=== PATIENT | female | born 1940 | race Caucasian/White ===

== ENCOUNTER 2020-02-05 07:17 | Outpatient (REF) | payer MEDICARE, OTHER, SELFPAY ==
[2020-02-05 08:04] LABS: MANUAL DIFF FLAG NO
[2020-02-05 08:07] LABS: Basophils Percent Auto 0.5 % (0-2); Eosinophils Absolute Auto 0.1 X10*3/uL (0.0-0.4); Eosinophils Percent Auto 1.9 % (0-4); Hematocrit 45.6 % (37-47); Hemoglobin 15.1 g/dl (12.0-16.0); Imm Gran Abs Auto 0.02 X10*3/uL (0.00-0.03); Imm Gran Pct Auto 0.5 % (0.0-0.4); Lymphocytes Absolute Auto 0.9 X10*3/uL (1.2-4.9); Lymphocytes Percent Auto 23.4 % (20-40); Mean Corpuscular HGB Conc 33.1 g/dl (31.0-35.0); Mean Corpuscular Hemoglobin 31.3 pg (27.0-33.0); Mean Corpuscular Volume 94.6 fL (80-98); Mean Platelet Volume 10.6 fL (9.4-12.3); Monocytes Absolute Auto 0.4 X10*3/uL (0.1-1.2); Monocytes Percent Auto 9.4 % (2-11); Neutrophils Absolute Auto 2.4 X10*3/uL (2.0-8.3); Neutrophils Percent Auto 64.3 % (45-73); Platelet Count 187 X10*3/uL (160-400); Red Blood Count 4.82 X10*6/uL (4.20-5.50); Red Cell Distribution Width 12.8 % (11.0-16.0); White Blood Count 3.7 X10*3/uL (4.8-10.8)
[2020-02-05 08:18] LABS: Appearance Urine CLEAR; Color Urine YELLOW; Glucose Urine UA NEG (NEG); Specific Gravity - Urine 1.025 (1.005-1.025); Urine Blood NEG (NEG); Urine Protein 1+ MG/DL (NEG-TRACE)
[2020-02-05 08:19] LABS: Nitrite Urine NEG (NEG); Urine Ketones NEG (NEG)
[2020-02-05 08:20] LABS: Leukocyte Esterase Urine TRACE (NEG)
[2020-02-05 08:47] LABS: Alanine Aminotransferase 19 U/L (0-31); Albumin Level 4.3 g/dL (3.5-5.0); Alkaline Phosphatase 66 U/L (39-117); Anion Gap 12 (12-20); Aspartate Amino Transferase 21 U/L (5-31); Bilirubin Total 0.8 mg/dL (0.0-1.0); Blood Urea Nitrogen 19 mg/dL (9-16); Calcium 9.4 mg/dL (8.4-10.2); Carbon Dioxide 28 mmol/L (22-29); Chloride 105 mmol/L (96-108); Cholesterol 243 mg/dL; Estimated Glomerular Filt Rate > 60; Glucose Fasting 100 mg/dL (60-99); HDL Cholesterol 73 mg/dL; LDL Cholesterol Calculated 157 mg/dl; Potassium 4.5 mmol/l (3.3-5.1); Sodium 140 mmol/L (135-145); Total Protein 6.4 g/dL (6.5-8.0); Triglycerides 69 mg/dL
[2020-02-05 09:04] LABS: RBC Urine 0 /HPF (0)
[2020-02-05 09:11] LABS: Thyroid Stimulating Hormone 0.71 mIU/mL (0.32-4.0)
== END 2020-02-05 07:18 | disposition home or self-care (01) ==
LOC: HO.LAB 07:17
PROVIDERS: PCP Internal Medicine; Visit Provider Internal Medicine
DX: D70.9 Neutropenia, unspecified (principal); E04.1 Nontoxic single thyroid nodule; I10 Essential (primary) hypertension; E78.00 Pure hypercholesterolemia, unspecified; I65.23 Occlusion and stenosis of bilateral carotid arteries
CPT/HCPCS: 36415; 80053; 80061; 81001; 81003; 84443; 85025

== ENCOUNTER 2020-04-11 09:08 | Outpatient (REF) | payer MEDICARE, OTHER, SELFPAY ==
--- NOTE | 2020-04-11 09:13 | MM_ITS ---
EXAMINATION: MM SCREENING DIGITAL MAMMOGRAPHY, BILATERAL CLINICAL INFORMATION: Screening. Asymptomatic. The lifetime risk of breast cancer based on the Tyrer-Cuzick Model is 1.5%. COMPARISON: Mammography: April 28, 2019 and studies dating back to May 04, 2014 TECHNIQUE: Digital mammography is performed in craniocaudal and mediolateral oblique views along with computer-aided detection (CAD). FINDINGS: The breasts are heterogeneously dense, which may obscure small masses (ACR BI-RADS breast composition Category c). Within the lateral aspect of the right breast there is an increasing grouping of calcifications for which magnification views are recommended. The previously noted cyst within the upper outer aspect of the left breast is slightly larger. There appears be increasing grouping of calcifications about the lateral aspect of the left breast for which magnification films are recommended. MM/MM screening mammo BI IMPRESSION: Bilateral groupings of calcifications for further evaluation with spot magnification views. ASSESSMENT: BI-RADS 0: Incomplete - Need Additional Imaging Evaluation RECOMMENDATION: 1. Additional views of the bilateral breasts. 2.Radiology department staff will contact the patient for additional imaging.
--- NOTE | 2020-04-11 09:14 | MM_ITS ---
EXAMINATION: BONE DENSITOMETRY CLINICAL INDICATION: Menopausal. COMPARISON: Baseline BD dated 03/22/2018. TECHNIQUE: Using a [employer] DXA System (software version: 13.1) manufactured by [email or web address], dual-energy x-ray absorptiometry was performed of the lumbar spine and left hip. The images are of good technical quality. Summary results are attached. FINDINGS: AP SPINE L1-L4: Current: BMD 1.250 g/cm2, Z-score 2.3, T-score 0.6, normal, 5.4% increase from baseline (<5% change is not significant). Baseline: BMD 1.186 g/cm2. LEFT FEMUR, NECK: Current: BMD 0.750 g/cm2, Z-score 0.0, T-score -2.1, osteopenia. Baseline: BMD 0.779 g/cm2. LEFT FEMUR, TOTAL: Current: BMD 0.841 g/cm2, Z-score 0.6, T-score -1.3, osteopenia, 2.7% decrease from baseline (<5% change is not significant). Baseline: BMD 0.864 g/cm2. IDENTIFIED RISK FACTORS: Menopause. HISTORY OF FRACTURE: None listed. MEDICATIONS: Multivitamin. MM/XR DEXA axial skeleton IMPRESSION: 1. DIAGNOSIS: Osteopenia based on the lowest T-score value of -2.1 in the femoral neck applying World Health Organization criteria. 2. 10-YEAR FRACTURE RISK PREDICTION, FRAX: Major osteoporotic fracture (clinical spine, forearm, hip or shoulder) 16.1%. Hip fracture 5.1%. 3. Treatment Recommendations: NOF guidelines recommend consideration for treatment in postmenopausal women and men age 50 and older presenting with the following: -A hip or vertebral (clinical or morphometric) fracture. -T-score less than or equal to -2.5 at the femoral neck or spine after appropriate evaluation to exclude secondary causes. -Low bone mass at the hip or spine and a 10-year fracture probability by FRAX of greater than or equal to 3% for hip fracture or greater than or equal to 20% for major osteoporotic fracture based on the [place] adapted WHO algorithm. 4. Other Recommendations: All treatment decisions require clinical judgment and consideration of individual patient factors, including patient preferences, comorbidities, previous drug use, risk factors not captured in the FRAX model (e.g. frailty, falls, vitamin D deficiency, increased bone turnover, interval significant decline in bone density) and possible under or overestimation of fracture risk by FRAX. Additional medical evaluation for secondary cause of low bone mineral density may be appropriate. FUTURE SCAN RECOMMENDATION: People with diagnosed cases of osteoporosis or at high risk for fracture should have regular bone mineral density tests. For patients eligible for Medicare, routine testing is allowed once every 2 years. The testing frequency can be increased to one year for patients who have rapidly progressing disease, those who are receiving or discontinuing medical therapy to restore bone mass, or have additional risk factors.
== END 2020-04-11 09:09 | disposition home or self-care (01) ==
LOC: HO.MAMMO 09:08
PROVIDERS: PCP Internal Medicine; Visit Provider Internal Medicine
DX: Z12.31 Encounter for screening mammogram for malignant neoplasm of breast (principal); Z78.0 Asymptomatic menopausal state
CPT/HCPCS: 77067; 77080

== ENCOUNTER 2020-04-15 08:18 | Outpatient (REF) | payer MEDICARE, OTHER, SELFPAY ==
--- NOTE | 2020-04-15 | US_ITS ---
EXAMINATION: US THYROID CLINICAL INFORMATION: Multinodular goiter. COMPARISON: Ultrasound thyroid soft tissue dated 02/12/2017 TECHNIQUE: Linear transducer mcgowan-scale and color Doppler examination with attention to the region of the thyroid. FINDINGS: SIZE: Measurements of the thyroid lobes and nodules are given in sagittal, anteroposterior and transverse dimensions respectively. Right Thyroid Lobe: 5.2 x 2.4 x 2.0 cm, volume 12.7 mL. Previously 5.7 x 1.8 x 2.4 cm, volume 12.5 mL. Parenchyma: The gland echotexture is heterogeneous. Thyroid vascularity is normal. Left Thyroid Lobe: 5.9 x 2.4 x 1.9 cm, volume 14.0 mL. Previously 5.7 x 2.4 x 1.7 cm, volume 12.3 mL. Parenchyma: The gland echotexture is heterogeneous. Thyroid vascularity is slightly increased. Isthmus: 0.5 cm in maximum AP dimension. Previously 0.6 cm. RIGHT THYROID LOBE: There are numerous nodules visualized with the prominent 4 nodules documented. 1. Location: Upper. Size: 0.6 x 0.3 x 0.5 cm. Previous: 0.7 x 0.3 x 0.5 cm. Nodule characteristics: Heterogeneous, smoothly marginated with intranodular flow. 2. Location: Mid. Size: 0.3 x 0.2 x 0.4 cm. Previous: 0.2 x 0.1 x 0.2 cm. Nodule characteristics: Hypoechoic, smoothly marginated peripheral intranodular flow. 3. Location: Lower. Size: 1.0 x 0.8 x 0.9 cm. Previous: 1.0 x 0.6 x 0.9 cm. Nodule characteristics: Heterogenous, irregular shaped with no intranodular flow. 4. Location: Lower. Size: 0.8 x 0.4 x 0.7 cm. Previous: 0.7 x 0.4 x 0.7 cm. Nodule characteristics: Heterogeneous, irregular shaped with no intranodular flow. ISTHMUS: There is 1 nodule seen. 1. Location: Mid. Size: 1.3 x 0.6 x 1.0 cm. Previous: 1.1 x 0.5 x 0.9 cm. Nodule characteristics: Heterogeneous, smoothly marginated with intranodular flow. LEFT THYROID LOBE: There are 4 nodules seen. 1. Location: Upper. Size: 0.7 x 0.7 x 0.6 cm. Previously measured as 2 separate nodules. Nodule characteristics: Heterogenous, irregular margins with intranodular flow. 2. Location: Mid. Size: 0.5 x 0.3 x 0.5 cm. Previous: Not seen. Nodule characteristics: Heterogeneous, smoothly marginated with intranodular flow. 3. Location: Lower. Size: 0.6 x 0.4 x 0.7 cm. Previous: 1.2 x 0.6 x 1.1 cm. Nodule characteristics: Heterogenous, irregular shaped with intranodular flow. 4. Location: Lower. Size: 1.1 x 0.6 x 1.3 cm. Previous: 1.0 x 0.8 x 1.1 cm. Nodule characteristics: Heterogenous, irregular shaped with intranodular flow. NODES: No lymphadenopathy is seen in the tissue surrounding the thyroid gland. US/US thyroid IMPRESSION: Multiple bilateral several heterogenous micronodules only largest and significant nodules were mentioned. These are stable. Recommend continued annual follow-up as per FUENTES guidelines.
== END 2020-04-15 08:19 | disposition home or self-care (01) ==
LOC: HO.US 08:18
PROVIDERS: Visit Provider Pediatrics Pediatric Endocrinology
DX: E04.2 Nontoxic multinodular goiter (principal)
CPT/HCPCS: 76536

== ENCOUNTER 2020-05-02 09:16 | Outpatient (REF) | payer MEDICARE, OTHER, SELFPAY ==
--- NOTE | 2020-05-02 09:22 | MM_ITS ---
EXAMINATION: MM DIAGNOSTIC DIGITAL MAMMOGRAPHY, BILATERAL CLINICAL INFORMATION: Recall from screening for question of increased calcifications bilateral outer breasts. COMPARISON: Mammography: 04/11/2020, 04/28/2019, 04/06/2019 TECHNIQUE: Digital mammography is performed in the following views: Bilateral magnification CC, bilateral magnification ML x2. FINDINGS: There are scattered areas of fibroglandular density (ACR BI-RADS breast composition Category b). Additional views left breast shows some scattered benign coarse calcifications. No focal suspicious changes from prior standard mammography. Left breast may be reassessed again in 12 months at time of annual bilateral exam. Additional views right breast demonstrate some fine calcifications mid 8:30 o'clock position. The appearance is similar to prior diagnostic exam, likely vascular. As a precaution, right breast will be reassessed in 6 months to include magnification views. Results are discussed with the patient at time of visit. MM/MM added views BI IMPRESSION: 1. Right: Probable vascular calcifications mid 8:30 o'clock position. 2. Left: Additional views show no suspicious finding. ASSESSMENT: BI-RADS 3: Probably Benign RECOMMENDATION: Diagnostic right mammography in 6 months. This patient's information was entered into a reminder system with a target due date for their next mammogram.
== END 2020-05-02 09:17 | disposition home or self-care (01) ==
LOC: HO.MAMMO 09:16
PROVIDERS: PCP Internal Medicine; Visit Provider Internal Medicine
DX: R92.1 Mammographic calcification found on diagnostic imaging of breast (principal)
CPT/HCPCS: 77066

== ENCOUNTER 2020-07-04 08:17 | Outpatient (REF) | payer MEDICARE, OTHER, SELFPAY ==
--- NOTE | ~2020-07-04 | US_ITS ---
EXAMINATION: US RETROPERITONEAL LIMITED (RENAL ONLY) CLINICAL INFORMATION: Renal calculus. COMPARISON: None. TECHNIQUE: Routine grayscale imaging of kidneys was performed. FINDINGS: RIGHT KIDNEY: 11.0 x 4.6 x 5.0 cm (SAG x AP x TRV). The kidney is normal in size, contour, and echogenicity. Renal cortical thickness is normal. No calculi or focal parenchymal lesions. No hydronephrosis. LEFT KIDNEY: 11.6 x 3.9 x 4.7 cm (SAG x AP x TRV). The kidney is normal in size, contour, and echogenicity. Renal cortical thickness is normal. There is anechoic cyst in the midpole laterally measuring 0.7 x 1.0 x 1.2 cm. There is an echogenic stone versus calcification measuring 0.2 x 0.2 x 0.2 cm. In addition, there are multiple echogenic foci seen. US/US renal BI IMPRESSION: Unremarkable right kidney. Anechoic cyst midpole left kidney. Echogenic stone versus calcification midpole left kidney. There is no hydronephrosis.
== END 2020-07-04 08:18 | disposition home or self-care (01) ==
LOC: HO.US 08:17
PROVIDERS: Visit Provider Urology
DX: N20.0 Calculus of kidney (principal)
CPT/HCPCS: 76775

== ENCOUNTER → 2020-07-11 14:49 | Outpatient (BNVA) | payer MEDICARE, OTHER, SELFPAY | PROVIDERS: PCP Internal Medicine; Visit Provider Urology | DX: N20.0 Calculus of kidney (principal) | CPT/HCPCS: Q3014 ==

== ENCOUNTER 2020-10-28 09:15 | Outpatient (REF) | payer MEDICARE, OTHER, SELFPAY ==
--- NOTE | ~2020-10-28 | MM_ITS ---
EXAMINATION: MM DIAGNOSTIC DIGITAL BREAST TOMOSYNTHESIS, RIGHT CLINICAL INFORMATION: Six-month follow-up right breast calcifications The lifetime risk of breast cancer based on the Tyrer-Cuzick Model is 1.2%. COMPARISON: Mammography: May 02, 2020 and studies dating back to May 04, 2014 TECHNIQUE: Digital breast tomosynthesis is performed in both the craniocaudal and mediolateral oblique views along with computer-aided detection (CAD). Synthesized 2D images are generated from the tomosynthesis. Spot magnification views of the right breast in craniocaudal and 90 degree mediolateral views also performed. FINDINGS: There are scattered areas of fibroglandular density (ACR BI-RADS breast composition Category b). There is a stable parenchymal pattern seen within the right breast with no new abnormal dominant mass or suspicious grouping of microcalcifications. A grouping of calcifications within the upper outer aspect of the right breast is stable. Recommend continued spot magnification views of the right breast in 6 months at time of bilateral breast study. Results are provided to the patient at time of visit by the technologist. MM/MM tomosynthesis diagnostic RT IMPRESSION: There are no significant changes from prior study. ASSESSMENT: BI-RADS 3: Probably Benign RECOMMENDATION: Diagnostic mammography in 6 months. This patient's information was entered into a reminder system with a target due date for their next mammogram.
== END 2020-10-28 09:16 | disposition home or self-care (01) ==
LOC: HO.MAMMO 09:15
PROVIDERS: Visit Provider Internal Medicine
DX: R92.1 Mammographic calcification found on diagnostic imaging of breast (principal)
CPT/HCPCS: 77061; 77065

== ENCOUNTER 2020-11-11 10:29 | Outpatient (REF) | payer MEDICARE, OTHER, SELFPAY ==
[2020-11-11 11:13] LABS: Alanine Aminotransferase 18 U/L (0-31); Albumin Level 4.4 g/dL (3.5-5.0); Alkaline Phosphatase 62 U/L (39-117); Aspartate Amino Transferase 23 U/L (5-31); Bilirubin Direct 0.3 mg/dL (0.0-0.5); Bilirubin Total 0.9 mg/dL (0.0-1.0); Cholesterol 251 mg/dL; HDL Cholesterol 86 mg/dL; LDL Cholesterol Calculated 148 mg/dl; Triglycerides 86 mg/dL
[2020-11-11 11:29] LABS: Reflex LDLD? No
== END 2020-11-11 10:30 | disposition home or self-care (01) ==
LOC: HO.LNP 10:29
PROVIDERS: Visit Provider Internal Medicine
DX: E78.00 Pure hypercholesterolemia, unspecified (principal)
CPT/HCPCS: 80061; 80076

== ENCOUNTER 2021-02-07 11:13 | Outpatient (REF) | payer MEDICARE, OTHER, SELFPAY ==
--- NOTE | ~2021-02-07 | XR_ITS ---
EXAMINATION: XR ANKLE, RIGHT XR FOOT, RIGHT CLINICAL INFORMATION: Trauma, pain ankle and foot. COMPARISON: None TECHNIQUE: 2 views right ankle and 2 views right foot are obtained. A lateral view of the combined right ankle and foot in large [id number] is also included for a total of 5 views. FINDINGS: There is lateral ankle soft tissue swelling just distal to the lateral malleolus. The malleoli appear intact and the ankle mortise is symmetric. There is no visible fracture or dislocation. No ankle joint narrowing or erosive change or destructive process. The subtalar joint appears normal. The retrocalcaneal recess is preserved. There are bulky posterior and plantar calcaneal spurs. The midfoot and forefoot show no fracture or dislocation. There are osteoarthritic changes first MTP with joint narrowing and lateral spurring. There is a bulky dorsal exostosis with corticated margins from the head first metatarsal. XR/XR foot RT min 3V IMPRESSION: Lateral ankle soft tissue swelling. No fracture or dislocation right ankle, right foot.
--- NOTE | ~2021-02-07 | XR_ITS ---
EXAMINATION: XR ANKLE, RIGHT XR FOOT, RIGHT CLINICAL INFORMATION: Trauma, pain ankle and foot. COMPARISON: None TECHNIQUE: 2 views right ankle and 2 views right foot are obtained. A lateral view of the combined right ankle and foot in large [id number]-fi-mley is also included for a total of 5 views. FINDINGS: There is lateral ankle soft tissue swelling just distal to the lateral malleolus. The malleoli appear intact and the ankle mortise is symmetric. There is no visible fracture or dislocation. No ankle joint narrowing or erosive change or destructive process. The subtalar joint appears normal. The retrocalcaneal recess is preserved. There are bulky posterior and plantar calcaneal spurs. The midfoot and forefoot show no fracture or dislocation. There are osteoarthritic changes first MTP with joint narrowing and lateral spurring. There is a bulky dorsal exostosis with corticated margins from the head first metatarsal. XR/XR ankle RT min 3V IMPRESSION: Lateral ankle soft tissue swelling. No fracture or dislocation right ankle, right foot.
== END 2021-02-07 11:14 | disposition home or self-care (01) ==
LOC: HO.HMGCX 11:13
PROVIDERS: PCP Internal Medicine; Visit Provider Physician Assistant Medical
DX: S99.911A Unspecified injury of right ankle, initial encounter (principal)
CPT/HCPCS: 73610; 73630

== ENCOUNTER 2021-02-20 10:42 | Outpatient (REF) | payer MEDICARE, OTHER, SELFPAY ==
[2021-02-20 10:46] LABS: MANUAL DIFF FLAG NO
[2021-02-20 11:43] LABS: Basophils Percent Auto 0.9 % (0-2); Eosinophils Absolute Auto 0.1 X10*3/uL (0.0-0.4); Eosinophils Percent Auto 3.3 % (0-4); Hematocrit 44.6 % (37-47); Hemoglobin 14.4 g/dl (12.0-16.0); Lymphocytes Absolute Auto 0.9 X10*3/uL (1.2-4.9); Lymphocytes Percent Auto 25.7 % (20-40); Mean Corpuscular HGB Conc 32.3 g/dl (31.0-35.0); Mean Corpuscular Hemoglobin 30.4 pg (27.0-33.0); Mean Corpuscular Volume 94.3 fL (80-98); Mean Platelet Volume 11.1 fL (9.4-12.3); Monocytes Absolute Auto 0.4 X10*3/uL (0.1-1.2); Monocytes Percent Auto 11.4 % (2-11); Neutrophils Percent Auto 58.7 % (45-73); Platelet Count 163 X10*3/uL (160-400); Red Blood Count 4.73 X10*6/uL (4.20-5.50); Red Cell Distribution Width 12.9 % (11.0-16.0); White Blood Count 3.3 X10*3/uL (4.8-10.8)
[2021-02-20 11:54] LABS: Appearance Urine CLEAR; Color Urine YELLOW; Glucose Urine UA NEG (NEG); Leukocyte Esterase Urine NEG (NEG); Nitrite Urine NEG (NEG); Urine Blood NEG (NEG); Urine Ketones NEG (NEG); Urine Protein NEG (NEG-TRACE)
[2021-02-20 12:04] LABS: Alanine Aminotransferase 19 U/L (0-31); Albumin Level 4.2 g/dL (3.5-5.0); Alkaline Phosphatase 64 U/L (39-117); Anion Gap 11 (12-20); Aspartate Amino Transferase 22 U/L (5-31); Bilirubin Total 0.5 mg/dL (0.0-1.0); Blood Urea Nitrogen 19 mg/dL (9-16); Calcium 9.7 mg/dL (8.4-10.2); Carbon Dioxide 28 mmol/L (22-29); Chloride 109 mmol/L (96-108); Cholesterol 188 mg/dL; Estimated Glomerular Filt Rate > 60; Glucose Fasting 88 mg/dL (60-99); HDL Cholesterol 78 mg/dL; LDL Cholesterol Calculated 101 mg/dl; Potassium 4.4 mmol/L (3.3-5.1); Reflex LDLD? No; Sodium 144 mmol/L (135-145); Total Protein 6.4 g/dL (6.5-8.0); Triglycerides 48 mg/dL
[2021-02-20 12:25] LABS: TSH reflex Free T4 0.64 uIU/mL (0.32-4.0)
== END 2021-02-20 10:43 | disposition home or self-care (01) ==
LOC: HO.LNP 10:42
PROVIDERS: Visit Provider Internal Medicine
DX: E04.1 Nontoxic single thyroid nodule (principal); D70.9 Neutropenia, unspecified; E78.00 Pure hypercholesterolemia, unspecified; I10 Essential (primary) hypertension
CPT/HCPCS: 80053; 80061; 81003; 84443; 85025

== ENCOUNTER 2021-04-14 08:44 | Outpatient (REF) | payer MEDICARE, OTHER, SELFPAY ==
--- NOTE | ~2021-04-14 | MM_ITS ---
EXAMINATION: MM DIAGNOSTIC DIGITAL BREAST TOMOSYNTHESIS, BILATERAL CLINICAL INFORMATION: Due for yearly. Follow-up probable benign calcifications mid 8:30 o'clock right breast. The lifetime risk of breast cancer based on the Tyrer-Cuzick Model is under 2%. COMPARISON: Mammography: 10/28/2020, 05/02/2020, 04/11/2020 (BI-RADS 0) 04/28/2019, 04/06/2019; right breast ultrasound 04/28/2019 TECHNIQUE: Digital breast tomosynthesis is performed in both the craniocaudal and mediolateral oblique views along with computer-aided detection (CAD). Synthesized 2D images are generated from the tomosynthesis. Additional magnification right CC and magnification right ML views are obtained. FINDINGS: There are scattered areas of fibroglandular density (ACR BI-RADS breast composition Category b). Parenchymal pattern is similar to prior studies and there is no developing density or interval mass or architectural abnormality. Simple cyst left breast is decreased in size from prior exam 04/11/2020. There are scattered bilateral benign round and some vascular calcifications. The axilla and skin contours are unremarkable. The calcifications central mid 8:30 o'clock right breast are stable from prior diagnostic exam, and likely without significant change from a diagnostic right mammogram on 04/28/2019. Right breast calcifications will be reassessed again at time of next bilateral annual mammography, due in 12 months. Results are provided to the patient at time of visit by the technologist. MM/MM tomosynthesis diagnostic BI IMPRESSION: 1. Right: Probable benign calcifications mid central outer breast stable. 2. Left: No mammographic evidence of malignancy. Simple cyst posterior 3:00 position decreased in size. ASSESSMENT: BI-RADS 3: Probably Benign RECOMMENDATION: Diagnostic mammography at time of next annual exam, due in 12 months. This patient's information was entered into a reminder system with a target due date for their next mammogram.
== END 2021-04-14 08:45 | disposition home or self-care (01) ==
LOC: HO.MAMMO 08:44
PROVIDERS: Visit Provider Internal Medicine
DX: R92.1 Mammographic calcification found on diagnostic imaging of breast (principal)
CPT/HCPCS: 77062; 77066

== ENCOUNTER 2021-06-02 08:00 | Outpatient (RCR) | payer MEDICARE, OTHER, SELFPAY | END 2021-06-06 11:26 | disposition home or self-care (01) | LOC: HO.PTCHIC 08:00 | PROVIDERS: PCP Internal Medicine; Visit Provider Physician Assistant | DX: S93.401D Sprain of unspecified ligament of right ankle, subsequent encounter (principal) | CPT/HCPCS: 97110; 97112; 97161; 97530 ==

== ENCOUNTER 2021-07-01 11:14 | Outpatient (REF) | payer MEDICARE, OTHER, SELFPAY ==
--- NOTE | ~2021-07-01 | US_ITS ---
EXAMINATION: US RETROPERITONEAL LIMITED (RENAL ONLY) CLINICAL INFORMATION: Calculus of kidney. COMPARISON: Renal ultrasound 07/04/2020 TECHNIQUE: Real-time imaging of the kidneys. FINDINGS: RIGHT KIDNEY: 11.1 x 4.1 x 5.5 cm (SAG x AP x TRV). The kidney is normal in size, contour, and echogenicity. Renal cortical thickness is normal. No focal parenchymal lesions or hydronephrosis. There is an echogenic stone in midpole measuring 0.1 x 0.06 cm without caliectasis. No acute additional echogenic stones seen. LEFT KIDNEY: 11.7 x 4.0 x 4.7 cm (SAG x AP x TRV). The kidney is normal in size, contour, and echogenicity. Renal cortical thickness is normal. No hydronephrosis. There is anechoic cyst in the midpole midpole measuring 1.0 x 0.6 x 1.1 cm and lower pole measuring 0.6 x 0.4 x 0.4 cm. There are 3 small echogenic stones. The largest echogenic stone lower pole measures 0.3 x 0.3 cm. US/US renal BI IMPRESSION: Bilateral echogenic stones without caliectasis or hydronephrosis. There are 2 anechoic cysts in the left kidney. There is no hydronephrosis.
== END 2021-07-01 11:15 | disposition home or self-care (01) ==
LOC: HO.US 11:14
PROVIDERS: Visit Provider Urology
DX: N20.0 Calculus of kidney (principal)
CPT/HCPCS: 76775

== ENCOUNTER → 2021-07-15 08:04 | Outpatient (BNVA) | payer MEDICARE, OTHER, SELFPAY | PROVIDERS: PCP Internal Medicine; Visit Provider Urology | DX: N20.0 Calculus of kidney (principal) | CPT/HCPCS: Q3014 ==

== ENCOUNTER 2021-08-25 11:21 | Outpatient (REF) | payer MEDICARE, OTHER, SELFPAY ==
[2021-08-25 12:16] LABS: Alanine Aminotransferase 23 U/L (0-31); Albumin Level 4.2 g/dL (3.5-5.0); Alkaline Phosphatase 78 U/L (39-117); Aspartate Amino Transferase 23 U/L (5-31); Bilirubin Direct 0.3 mg/dL (0.0-0.5); Bilirubin Total 0.7 mg/dL (0.0-1.0); Cholesterol 177 mg/dL; HDL Cholesterol 85 mg/dL; LDL Cholesterol Calculated 81 mg/dl; Total Protein 6.6 g/dL (6.5-8.0); Triglycerides 57 mg/dL
[2021-08-25 13:37] LABS: Reflex LDLD? No
== END 2021-08-25 11:22 | disposition home or self-care (01) ==
LOC: HO.LNP 11:21
PROVIDERS: Visit Provider Internal Medicine
DX: E78.00 Pure hypercholesterolemia, unspecified (principal)
CPT/HCPCS: 80061; 80076

== ENCOUNTER 2021-09-19 08:00 | Outpatient (RCR) | payer MEDICARE, OTHER, SELFPAY | END 2021-09-19 08:55 | disposition home or self-care (01) | LOC: HO.PTCHIC 08:00 | PROVIDERS: PCP Internal Medicine; Visit Provider Physician Assistant Surgical | DX: M54.31 Sciatica, right side (principal) | CPT/HCPCS: 97110; 97112; 97140; 97150; 97161 ==

== ENCOUNTER 2022-02-17 11:20 | Outpatient (REF) | payer MEDICARE, OTHER, SELFPAY ==
--- NOTE | ~2022-02-17 | XR_ITS ---
EXAMINATION: XR HIP, RIGHT CLINICAL INFORMATION: Right hip pain status post fall. COMPARISON: None TECHNIQUE: Two views of the right hip. FINDINGS: Mild bilateral hip degenerative joint changes are seen. There is no acute fracture or dislocation. The bony pelvis is intact. The soft tissues are unremarkable. XR/XR hip RT w [id number] IMPRESSION: Mild bilateral hip osteoarthritis. No acute fracture.
== END 2022-02-17 11:21 | disposition home or self-care (01) ==
LOC: HO.HMGCX 11:20
PROVIDERS: PCP Internal Medicine; Visit Provider Emergency Medicine
DX: M25.551 Pain in right hip (principal); W19.XXXA Unspecified fall, initial encounter
CPT/HCPCS: 73502

== ENCOUNTER 2022-02-27 11:44 | Outpatient (REF) | payer MEDICARE, OTHER, SELFPAY ==
[2022-02-27 11:50] LABS: MANUAL DIFF FLAG NO
[2022-02-27 12:04] LABS: Eosinophils Absolute Auto 0.1 X10*3/uL (0.0-0.4); Eosinophils Percent Auto 3.3 % (0-4); Hematocrit 44.5 % (37.0-47.0); Hemoglobin 14.8 g/dl (12.0-16.0); Imm Gran Abs Auto 0.01 X10*3/uL (0.00-0.03); Imm Gran Pct Auto 0.2 % (0.0-0.4); Mean Corpuscular HGB Conc 33.3 g/dl (31.0-35.0); Mean Corpuscular Hemoglobin 31.4 pg (27.0-33.0); Mean Corpuscular Volume 94.3 fL (80.0-98.0); Mean Platelet Volume 10.5 fL (9.4-12.3); Monocytes Absolute Auto 0.5 X10*3/uL (0.1-1.2); Monocytes Percent Auto 12.4 % (2-11); Neutrophils Absolute Auto 2.5 x10*3/uL (2.0-8.3); Neutrophils Percent Auto 59.1 % (45-73); Platelet Count 191 X10*3/uL (160-400); Red Blood Count 4.72 X10*6/uL (4.20-5.50); Red Cell Distribution Width 13.1 % (11.0-16.0); White Blood Count 4.2 X10*3/uL (4.8-10.8)
[2022-02-27 12:07] LABS: Appearance Urine Clear; Color Urine Yellow; Glucose Urine UA Negative (Negative); Leukocyte Esterase Urine Small (1+) (Negative); Nitrite Urine Negative (Negative); PH 5.5 (5.0-9.0); UMIC TRIGGER UA YES; Urine Blood Negative (Negative); Urine Ketones Negative (Negative); Urine Protein Negative (Neg-Trace)
[2022-02-27 12:21] LABS: Alanine Aminotransferase 19 U/L (0-31); Albumin Level 4.4 g/dL (3.5-5.0); Alkaline Phosphatase 76 U/L (39-117); Anion Gap 16 (12-20); Aspartate Amino Transferase 24 U/L (5-31); Bilirubin Total 0.5 mg/dL (0.0-1.0); Blood Urea Nitrogen 20 mg/dL (9-16); Calcium 9.8 mg/dL (8.4-10.2); Carbon Dioxide 26 mmol/L (22-29); Chloride 104 mmol/L (96-108); Cholesterol 173 mg/dL; Estimated Glomerular Filt Rate > 60; Glucose Fasting 89 mg/dL (60-99); HDL Cholesterol 82 mg/dL; LDL Cholesterol Calculated 80 mg/dl; Potassium 4.4 mmol/L (3.3-5.1); Sodium 142 mmol/L (135-145); Total Protein 6.8 g/dL (6.5-8.0); Triglycerides 59 mg/dL
[2022-02-27 12:31] LABS: RBC Urine 0-2 /HPF (0-2); WBC Urine 0-5 /HPF (0-5)
[2022-02-27 12:32] LABS: Bacteria Urine Trace (None Seen); Calcium Oxalate Crystals Urine Present; Hyaline Casts Urine 0-2 /LPF (0-2); Squamous Epithelial Cell Urine 0-2 /HPF (0-2)
== END 2022-02-27 11:45 | disposition home or self-care (01) ==
LOC: HO.LNP 11:44
PROVIDERS: Visit Provider Internal Medicine
DX: E78.00 Pure hypercholesterolemia, unspecified (principal); E04.1 Nontoxic single thyroid nodule; D70.9 Neutropenia, unspecified
CPT/HCPCS: 80053; 80061; 81001; 84443; 85025

== ENCOUNTER 2022-03-06 09:19 | Outpatient (REF) | payer MEDICARE, OTHER, SELFPAY ==
--- NOTE | ~2022-03-06 | XR_ITS ---
EXAMINATION: XR HIP, RIGHT CLINICAL INFORMATION: Right hip pain. COMPARISON: 02/17/2022. TECHNIQUE: 2 views of the right hip. FINDINGS: There is no evidence of acute fracture or dislocation of the right hip. A pit erosion is seen about the femoral neck. There is some mild spurring about the greater trochanter. No femoral head collapse. Mild collar spurring is present. XR/XR hip RT min 2V IMPRESSION: Degenerative change of the right knee as described without evidence of acute fracture or dislocation.
== END 2022-03-06 09:20 | disposition home or self-care (01) ==
LOC: HO.XRAY 09:19
PROVIDERS: PCP Internal Medicine; Visit Provider Internal Medicine
DX: M25.551 Pain in right hip (principal)
CPT/HCPCS: 73502

== ENCOUNTER 2022-04-13 08:45 | Outpatient (REF) | payer MEDICARE, OTHER, SELFPAY ==
--- NOTE | ~2022-04-13 | MM_ITS ---
EXAMINATION: MM DIAGNOSTIC DIGITAL BREAST TOMOSYNTHESIS, BILATERAL CLINICAL INFORMATION: Due for yearly. Also follow-up probable benign calcifications mid 8:30 right breast. COMPARISON: Mammography: 04/14/2021, 10/28/2020, 05/02/2020, 04/11/2020 (BI-RADS 0), 04/28/2019, targeted left breast ultrasound 04/28/2019. TECHNIQUE: Digital breast tomosynthesis is performed in both the craniocaudal and mediolateral oblique views along with computer-aided detection (CAD). Synthesized 2D images are generated from the tomosynthesis. Additional magnification right CC and magnification right ML views are obtained. FINDINGS: There are scattered areas of fibroglandular density (ACR BI-RADS breast composition Category b). There are no significant masses, abnormal calcifications, or other abnormalities. Cyst posterior 3:00 left breast continues to decrease in size. No architectural abnormality. The axilla and skin contours are unremarkable. Right breast calcifications for follow-up mid 8:30 position are similar to prior diagnostic exams and now considered to be benign. Results are provided to the patient at time of visit by the technologist. MM/MM tomosynthesis diagnostic BI IMPRESSION: -No mammographic evidence of malignancy. -Right breast calcifications for follow-up are now considered to be benign. ASSESSMENT: BI-RADS 2: Benign RECOMMENDATION: Routine annual mammography screening. This patient's information was entered into a reminder system with a target due date for their next mammogram.
== END 2022-04-13 08:46 | disposition home or self-care (01) ==
LOC: HO.MAMMO 08:45
PROVIDERS: PCP Internal Medicine; Visit Provider Internal Medicine
DX: R92.1 Mammographic calcification found on diagnostic imaging of breast (principal)
CPT/HCPCS: 77062; 77066

== ENCOUNTER 2022-04-21 12:19 | Emergency (ER) | payer MEDICARE, OTHER, SELFPAY ==
--- NOTE | ~2022-04-21 | XR_ITS ---
EXAMINATION: XR CHEST CLINICAL INFORMATION: Chest pain COMPARISON: None TECHNIQUE: 2 views of the chest were obtained. FINDINGS: Lungs hyperaerated but grossly clear. No pleural effusions. Heart and pulmonary vessels normal. No congestive change. XR/XR chest 2V IMPRESSION: No active disease.
--- NOTE | 2022-04-21 12:27 | ED_ITS ---
HPI - Chest Pain General Chief Complaint: Chest Pain <Candace Peters CNP - Last Filed: 04/21/22 12:32> Stated Complaint: Chest burning/tingling <Candace Peters CNP - Last Filed: 04/21/22 12:32> Time Seen by Provider: 04/21/22 16:20 <Candace Peters CNP - Last Filed: 04/21/22 12:32> Source: patient <BRANNON Bah - Last Filed: 04/21/22 17:32> Mode of arrival: ambulatory <BRANNON Bah - Last Filed: 04/21/22 17:32> Limitations: no limitations <BRANNON Bah - Last Filed: 04/21/22 17:32> History of Present Illness HPI narrative: This is an 81-year-old female history of hypertension, hyperlipidemia presenting to the emergency department with complaints of chest pain, fatigue, malaise x2 days, unchanged. Patient describes an intermittent substernal nonradiating pain/discomfort to her chest, described as pressure and burning. She tells me that at times when she gets this pain she also experiences discom fort to her left armpit region and between both scalpula. Patient denies fevers, chills, nausea, vomiting, abdominal pain, shortness of breath, lower extremity swelling, headache, vision changes, dizziness and weakness. To note, patient tells me she has a history of GERD and she can not tell this is just her GERD acting up as she has been belching a lot lately. <BRANNON Bah - Last Filed: 04/21/22 17:32> Related Data Home Medications: Home Medications Medication Instructions Recorded Confirmed lisinopril 5 mg tablet 5 mg PO DAILY 02/07/21 rosuvastatin 40 mg tablet 40 mg PO DAILY 02/07/21 Previous Rx's Medication Instructions Recorded aluminum-mag hydroxide-simethicone 5 ml PO 5XD PRN dyspepsia #355 mL 04/21/22 200 mg-200 mg-20 mg/5 mL oral susp (Maalox Advanced) <DAMON Starr Last Filed: 04/21/22 12:32> Allergies/Adverse Reactions: Allergies Allergy/AdvReac Type Severity Reaction Status Date / Time cephalexin [From KEFLEX] Allergy Severe RASH Verified 02/17/22 10:39 Sulfa (Sulfonamide Allergy Severe INTSERNAL Verified 02/17/22 10:39 Antibiotics) AND [SULFA (SULFONAMIDE EXTERNAL ANTIBIOTICS)] RASH/INFECTION Iodinated Contrast Media Allergy Intermediate HIVES,REDNESS Verified 02/17/22 10:39 [IV Dye, Iodine Containing] + SWELLING sulfamethoxazole Allergy Intermediate INTERNAL Verified 02/17/22 10:39 [From BACTRIM] AND EXTERNAL RASH/ INFECTION <Candace Peters CNP - Last Filed: 04/21/22 12:32> Review of Systems Review of Systems: Constitutional : No Weight loss, No Fever, No Chills, + Fatigue, + Malaise ENT/Mouth : No sore throat, No Rhinorrhea Eyes: No Eye Pain, No Swelling, No Redness Cardiovascular : + Chest Pain, No SOB, No Dyspnea on Exertion, No Orthopnea, No Edema, No Palpitations Respiratory : No Cough, No Sputum, No Wheezing Gastrointestinal : No Nausea, No Vomiting, No Diarrhea, No Constipation, No abdominal Pain, No Hematochezia, No Melena Genitourinary : No Dysuria, No Urinary Frequency, No Hematuria, Musculoskeletal : No joint pain, No Myalgias, No Joint Swelling Skin : No Skin Lesions, No rash Neuro : No Weakness, No Numbness, No Dizziness, No Headache Psych : No Anxiety/Panic, No Depression All other systems reviewed and are negative <BRANNON Bah - Last Filed: 04/21/22 17:32> Yes all other systems are reviewed and are negative <BRANNON Bah - Last Filed: 04/21/22 17:32> [facility] Past Medical History Attestation statement: The following information was validated with the patient. <BRANNON Bah - Last Filed: 04/21/22 17:32> Source: old records reviewed and nursing notes reviewed <BRANNON Bah - Last Filed: 04/21/22 17:32> Social History Social History: Social History Alcohol intake: never Smoked in Last 30 Days: No Use of substances other than those prescribed or required for medical reasons: No Advance Directives: No Advance Directives Information Provided: No <Candace Seaman DAMON Peters - Last Filed: 04/21/22 12:32> Physical Exam Vital Signs: Vital Signs: Last Vital Signs Temp 98.2 F 04/21/22 12:29 Pulse 91 04/21/22 16:40 Resp 18 04/21/22 16:40 BP 162/64 H 04/21/22 16:40 Pulse Ox 97 04/21/22 16:40 O2 Del Method 04/21/22 16:40 BMI result Body Mass Index 23.4 <Candace HouDAMON vital - Last Filed: 04/21/22 12:32> Vital Signs: Last Vital Signs Temp 98.2 F 04/21/22 12:29 Pulse 91 04/21/22 16:40 Resp 18 04/21/22 16:40 BP 162/64 H 04/21/22 16:40 Pulse Ox 97 04/21/22 16:40 O2 Del Method 04/21/22 16:40 BMI result Body Mass Index 23.4 vss <BRANNON Bah - Last Filed: 04/21/22 17:32> Appearance: Alert.? Oriented X3.? No acute distress.? Head: Normocephalic, atraumatic, no step-offs or deformities Eyes: Pupils equal, round and reactive to light.? Neck: Normal inspection.? Neck supple.? CVS: Normal heart rate and rhythm.? Pulses normal.? Respiratory: No respiratory distress.? Breath sounds normal.? Abdomen: Soft and nontender.? Skin: Skin warm and dry.? Normal skin color.? Normal skin turgor.? Extremities: No lower extremity edema.? No calf ttp. 5/5 strength to bilateral upper and lower extremities Neuro: Oriented X 3.? No motor deficit.? No sensory deficit. CN 2-12 intact <BRANNON Bah - Last Filed: 04/21/22 17:32> Course Course Course Narrative: RME: Patient is an 81-year-old female with past medical history of hypertension, hyperlipidemia presents emergency department for evaluation of chest pain. Overall pain is diffuse to the anterior chest, also felt that the the left axilla and between charlene the shoulders. Symptom onset 2 days ago, has been intermittent. Currently pain is anteriorly, described as discomfort, and the tingling sensation to the chest. Also experiencing fatigue. Denies any shortness of breath or difficulty breathing. Does have non-productive cough which has been present for approximately 1 month. Plan: Labs, EKG, chest x-ray, viral testing <Candace Peters CNP - Last Filed: 04/21/22 12:32> Reevaluation(s) Reevaluation #1: CBC appears to be within normal limits. Chemistry with no acute findings. Troponin 4.2, EKG nonischemic unlikely ACS however 2nd troponin pending. BNP within normal limits, unlikely CHF. Patient's flu/COVID negative. X-ray of the chest with no active disease. <BRANNON Bah - Last Filed: 04/21/22 17:32> Time: 14:45 <BRANNON Bah - Last Filed: 04/21/22 17:32> Reevaluation #2: Patient's 2nd troponin negative. Again, EKG nonischemic, therefore low suspicion for ACS. Patient reports symptomatic relief after taking Maalox. Tells me she is having discomfort to her scapular region hours she does tell me it is worse with movement better at rest. I do not suspect this is cardiac in origin. History and physical consistent with AAA. At this time patient will be discharged home will discharge her with Maalox advised to follow-up with PCP and Cardiology if necessary. At this time I feel comfortable discharge. <BRANONN Bah - Last Filed: 04/21/22 17:32> Medications Administered Discontinued Medications Generic Name Dose Route Start Last Admin Trade Name Freq PRN Reason Stop Dose Admin Al Hydroxide/Mg Hydroxide 30 ml 04/21/22 16:35 04/21/22 16:55 Magnesium Hydrox/Alum Hydrox 30 Ml Oral.Susp PO 04/21/22 16:36 30 ml ONCE ONE Administration <Candace Peters CNP - Last Filed: 04/21/22 12:32> Medications Administered Discontinued Medications Generic Name Dose Route Start Last Admin Trade Name Freq PRN Reason Stop Dose Admin Al Hydroxide/Mg Hydroxide 30 ml 04/21/22 16:35 04/21/22 16:55 Magnesium Hydrox/Alum Hydrox 30 Ml Oral.Susp PO 04/21/22 16:36 30 ml ONCE ONE Administration <BRANNON Bah - Last Filed: 04/21/22 17:32> Medical Decision Making Medical Decision Making [facility] Narrative: 1627 81-year-old female presenting with substernal chest pain, intermittent in nature described as a burning with/discomfort. Physical examination benign. Will rule out viral infection. Unlikely ACS, history and physical exam not consistent with PE. Unlikely CHF <BRANNON Bah - Last Filed: 04/21/22 17:32> Differential Diagnosis Differential Diagnoses: The differential diagnosis associated with the presentation includes <BRANNON Bah - Last Filed: 04/21/22 17:32> Admission/Observation Consideration of admission/observation: Escalation of care including admission/observation considered <BRANNON Bah - Last Filed: 04/21/22 17:32> Lab Data Result Diagrams: : 04/21/22 12:48 04/21/22 12:48 <Candace Peters CNP - Last Filed: 04/21/22 12:32> Labs: Lab Results 04/21/22 04/21/22 04/21/22 Range/Units 12:48 12:48 12:48 WBC 5.7 (4.8-10.8) X10*3/uL RBC 5.02 (4.20-5.50) X10*6/uL Hgb 15.5 (12.0-16.0) g/dl Hct 46.6 (37.0-47.0) % MCV 92.8 (80.0-98.0) fL MCH 30.9 (27.0-33.0) pg MCHC 33.3 (31.0-35.0) g/dl RDW 13.0 (11.0-16.0) % Plt Count 166 (160-400) X10*3/uL MPV 10.4 (9.4-12.3) fL Immature Gran % (Auto) 0.4 (0.0-0.4) % Neut % (Auto) 73.2 H (45-73) % Lymph % (Auto) 16.4 L (20-40) % [place] % (Auto) 7.9 (2-11) % Eos % (Auto) 1.6 (0-4) % Baso % (Auto) 0.5 (0-2) % Lymph # (Auto) 0.9 L (1.2-4.9) X10*3/uL [place] # (Auto) 0.5 (0.1-1.2) X10*3/uL Eos # (Auto) 0.1 (0.0-0.4) X10*3/uL Baso # (Auto) 0.0 (0.0-0.2) X10*3/uL Abs Immat Gran (auto) 0.02 (0.00-0.03) X10*3/uL Absolute Neuts (auto) 4.2 (2.0-8.3) x10*3/uL Absolute Nucleated RBC 0.000 (0.0-0.012) X10*3/uL Nucleated RBC % (auto) 0.0 (0.0-0.2) /100WBC Sodium 142 (135-145) mmol/L Potassium 4.7 (3.3-5.1) mmol/L Chloride 106 (96-108) mmol/L Carbon Dioxide 28 (22-29) mmol/L Anion Gap 13 (12-20) BUN 24 H (9-16) mg/dL Creatinine 0.73 (0.5-1.4) mg/dL Estim Creat Clear Calc 59.9 Estimated GFR > 60 Random Glucose 123 H (60-115) mg/dL Calcium 10.1 (8.4-10.2) mg/dL Magnesium 1.9 (1.6-2.6) mg/dL Total Bilirubin 0.5 (0.0-1.0) mg/dL AST 28 (5-31) U/L ALT 30 (0-31) U/L Alkaline Phosphatase 72 (39-117) U/L Troponin I High Sens 4.2 (<3.5-17.0) ng/L B-Natriuretic Peptide (<100) pg/mL Total Protein 6.8 (6.5-8.0) g/dL Albumin 4.6 (3.5-5.0) g/dL COVID-19 (LEN) (Negative) COVID-19 Clin Com Influenza Type A (RAYSA) (Negative) Influenza Type B (RAYSA) (Negative) Influenza A & B Note 04/21/22 04/21/22 04/21/22 Range/Units 12:48 12:48 12:48 WBC (4.8-10.8) X10*3/uL RBC (4.20-5.50) X10*6/uL Hgb (12.0-16.0) g/dl Hct (37.0-47.0) % MCV (80.0-98.0) fL MCH (27.0-33.0) pg MCHC (31.0-35.0) g/dl RDW (11.0-16.0) % Plt Count (160-400) X10*3/uL MPV (9.4-12.3) fL Immature Gran % (Auto) (0.0-0.4) % Neut % (Auto) (45-73) % Lymph % (Auto) (20-40) % [place] % (Auto) (2-11) % Eos % (Auto) (0-4) % Baso % (Auto) (0-2) % Lymph # (Auto) (1.2-4.9) X10*3/uL [place] # (Auto) (0.1-1.2) X10*3/uL Eos # (Auto) (0.0-0.4) X10*3/uL Baso # (Auto) (0.0-0.2) X10*3/uL Abs Immat Gran (auto) (0.00-0.03) X10*3/uL Absolute Neuts (auto) (2.0-8.3) x10*3/uL Absolute Nucleated RBC (0.0-0.012) X10*3/uL Nucleated RBC % (auto) (0.0-0.2) /100WBC Sodium (135-145) mmol/L Potassium (3.3-5.1) mmol/L Chloride (96-108) mmol/L Carbon Dioxide (22-29) mmol/L Anion Gap (12-20) BUN (9-16) mg/dL Creatinine (0.5-1.4) mg/dL Estim Creat Clear Calc Estimated GFR Random Glucose (60-115) mg/dL Calcium (8.4-10.2) mg/dL Magnesium (1.6-2.6) mg/dL Total Bilirubin (0.0-1.0) mg/dL AST (5-31) U/L ALT (0-31) U/L Alkaline Phosphatase (39-117) U/L Troponin I High Sens (<3.5-17.0) ng/L B-Natriuretic Peptide 66 (<100) pg/mL Total Protein (6.5-8.0) g/dL Albumin (3.5-5.0) g/dL COVID-19 (LEN) Negative (Negative) COVID-19 Clin Com See Note Influenza Type A (RAYSA) Negative (Negative) Influenza Type B (RAYSA) Negative (Negative) Influenza A & B Note See Note 04/21/22 Range/Units 16:48 WBC (4.8-10.8) X10*3/uL RBC (4.20-5.50) X10*6/uL Hgb (12.0-16.0) g/dl Hct (37.0-47.0) % MCV (80.0-98.0) fL MCH (27.0-33.0) pg MCHC (31.0-35.0) g/dl RDW (11.0-16.0) % Plt Count (160-400) X10*3/uL MPV (9.4-12.3) fL Immature Gran % (Auto) (0.0-0.4) % Neut % (Auto) (45-73) % Lymph % (Auto) (20-40) % [place] % (Auto) (2-11) % Eos % (Auto) (0-4) % Baso % (Auto) (0-2) % Lymph # (Auto) (1.2-4.9) X10*3/uL [place] # (Auto) (0.1-1.2) X10*3/uL Eos # (Auto) (0.0-0.4) X10*3/uL Baso # (Auto) (0.0-0.2) X10*3/uL Abs Immat Gran (auto) (0.00-0.03) X10*3/uL Absolute Neuts (auto) (2.0-8.3) x10*3/uL Absolute Nucleated RBC (0.0-0.012) X10*3/uL Nucleated RBC % (auto) (0.0-0.2) /100WBC Sodium (135-145) mmol/L Potassium (3.3-5.1) mmol/L Chloride (96-108) mmol/L Carbon Dioxide (22-29) mmol/L Anion Gap (12-20) BUN (9-16) mg/dL Creatinine (0.5-1.4) mg/dL Estim Creat Clear Calc Estimated GFR Random Glucose (60-115) mg/dL Calcium (8.4-10.2) mg/dL Magnesium (1.6-2.6) mg/dL Total Bilirubin (0.0-1.0) mg/dL AST (5-31) U/L ALT (0-31) U/L Alkaline Phosphatase (39-117) U/L Troponin I High Sens 4.1 (<3.5-17.0) ng/L B-Natriuretic Peptide (<100) pg/mL Total Protein (6.5-8.0) g/dL Albumin (3.5-5.0) g/dL COVID-19 (LEN) (Negative) COVID-19 Clin Com Influenza Type A (RAYSA) (Negative) Influenza Type B (RAYSA) (Negative) Influenza A & B Note <Candace Peters CNP - Last Filed: 04/21/22 12:32> Lab Results 04/21/22 04/21/22 04/21/22 Range/Units 12:48 12:48 12:48 WBC 5.7 (4.8-10.8) X10*3/uL RBC 5.02 (4.20-5.50) X10*6/uL Hgb 15.5 (12.0-16.0) g/dl Hct 46.6 (37.0-47.0) % MCV 92.8 (80.0-98.0) fL MCH 30.9 (27.0-33.0) pg MCHC 33.3 (31.0-35.0) g/dl RDW 13.0 (11.0-16.0) % Plt Count 166 (160-400) X10*3/uL MPV 10.4 (9.4-12.3) fL Immature Gran % (Auto) 0.4 (0.0-0.4) % Neut % (Auto) 73.2 H (45-73) % Lymph % (Auto) 16.4 L (20-40) % [place] % (Auto) 7.9 (2-11) % Eos % (Auto) 1.6 (0-4) % Baso % (Auto) 0.5 (0-2) % Lymph # (Auto) 0.9 L (1.2-4.9) X10*3/uL [place] # (Auto) 0.5 (0.1-1.2) X10*3/uL Eos # (Auto) 0.1 (0.0-0.4) X10*3/uL Baso # (Auto) 0.0 (0.0-0.2) X10*3/uL Abs Immat Gran (auto) 0.02 (0.00-0.03) X10*3/uL Absolute Neuts (auto) 4.2 (2.0-8.3) x10*3/uL Absolute Nucleated RBC 0.000 (0.0-0.012) X10*3/uL Nucleated RBC % (auto) 0.0 (0.0-0.2) /100WBC Sodium 142 (135-145) mmol/L Potassium 4.7 (3.3-5.1) mmol/L Chloride 106 (96-108) mmol/L Carbon Dioxide 28 (22-29) mmol/L Anion Gap 13 (12-20) BUN 24 H (9-16) mg/dL Creatinine 0.73 (0.5-1.4) mg/dL Estim Creat Clear Calc 59.9 Estimated GFR > 60 Random Glucose 123 H (60-115) mg/dL Calcium 10.1 (8.4-10.2) mg/dL Magnesium 1.9 (1.6-2.6) mg/dL Total Bilirubin 0.5 (0.0-1.0) mg/dL AST 28 (5-31) U/L ALT 30 (0-31) U/L Alkaline Phosphatase 72 (39-117) U/L Troponin I High Sens 4.2 (<3.5-17.0) ng/L B-Natriuretic Peptide (<100) pg/mL Total Protein 6.8 (6.5-8.0) g/dL Albumin 4.6 (3.5-5.0) g/dL COVID-19 (LEN) (Negative) COVID-19 Clin Com Influenza Type A (RAYSA) (Negative) Influenza Type B (RAYSA) (Negative) Influenza A & B Note 04/21/22 04/21/22 04/21/22 Range/Units 12:48 12:48 12:48 WBC (4.8-10.8) X10*3/uL RBC (4.20-5.50) X10*6/uL Hgb (12.0-16.0) g/dl Hct (37.0-47.0) % MCV (80.0-98.0) fL MCH (27.0-33.0) pg MCHC (31.0-35.0) g/dl RDW (11.0-16.0) % Plt Count (160-400) X10*3/uL MPV (9.4-12.3) fL Immature Gran % (Auto) (0.0-0.4) % Neut % (Auto) (45-73) % Lymph % (Auto) (20-40) % [place] % (Auto) (2-11) % Eos % (Auto) (0-4) % Baso % (Auto) (0-2) % Lymph # (Auto) (1.2-4.9) X10*3/uL [place] # (Auto) (0.1-1.2) X10*3/uL Eos # (Auto) (0.0-0.4) X10*3/uL Baso # (Auto) (0.0-0.2) X10*3/uL Abs Immat Gran (auto) (0.00-0.03) X10*3/uL Absolute Neuts (auto) (2.0-8.3) x10*3/uL Absolute Nucleated RBC (0.0-0.012) X10*3/uL Nucleated RBC % (auto) (0.0-0.2) /100WBC Sodium (135-145) mmol/L Potassium (3.3-5.1) mmol/L Chloride (96-108) mmol/L Carbon Dioxide (22-29) mmol/L Anion Gap (12-20) BUN (9-16) mg/dL Creatinine (0.5-1.4) mg/dL Estim Creat Clear Calc Estimated GFR Random Glucose (60-115) mg/dL Calcium (8.4-10.2) mg/dL Magnesium (1.6-2.6) mg/dL Total Bilirubin (0.0-1.0) mg/dL AST (5-31) U/L ALT (0-31) U/L Alkaline Phosphatase (39-117) U/L Troponin I High Sens (<3.5-17.0) ng/L B-Natriuretic Peptide 66 (<100) pg/mL Total Protein (6.5-8.0) g/dL Albumin (3.5-5.0) g/dL COVID-19 (LEN) Negative (Negative) COVID-19 Clin Com See Note Influenza Type A (RAYSA) Negative (Negative) Influenza Type B (RAYSA) Negative (Negative) Influenza A & B Note See Note 04/21/22 Range/Units 16:48 WBC (4.8-10.8) X10*3/uL RBC (4.20-5.50) X10*6/uL Hgb (12.0-16.0) g/dl Hct (37.0-47.0) % MCV (80.0-98.0) fL MCH (27.0-33.0) pg MCHC (31.0-35.0) g/dl RDW (11.0-16.0) % Plt Count (160-400) X10*3/uL MPV (9.4-12.3) fL Immature Gran % (Auto) (0.0-0.4) % Neut % (Auto) (45-73) % Lymph % (Auto) (20-40) % [place] % (Auto) (2-11) % Eos % (Auto) (0-4) % Baso % (Auto) (0-2) % Lymph # (Auto) (1.2-4.9) X10*3/uL [place] # (Auto) (0.1-1.2) X10*3/uL Eos # (Auto) (0.0-0.4) X10*3/uL Baso # (Auto) (0.0-0.2) X10*3/uL Abs Immat Gran (auto) (0.00-0.03) X10*3/uL Absolute Neuts (auto) (2.0-8.3) x10*3/uL Absolute Nucleated RBC (0.0-0.012) X10*3/uL Nucleated RBC % (auto) (0.0-0.2) /100WBC Sodium (135-145) mmol/L Potassium (3.3-5.1) mmol/L Chloride (96-108) mmol/L Carbon Dioxide (22-29) mmol/L Anion Gap (12-20) BUN (9-16) mg/dL Creatinine (0.5-1.4) mg/dL Estim Creat Clear Calc Estimated GFR Random Glucose (60-115) mg/dL Calcium (8.4-10.2) mg/dL Magnesium (1.6-2.6) mg/dL Total Bilirubin (0.0-1.0) mg/dL AST (5-31) U/L ALT (0-31) U/L Alkaline Phosphatase (39-117) U/L Troponin I High Sens 4.1 (<3.5-17.0) ng/L B-Natriuretic Peptide (<100) pg/mL Total Protein (6.5-8.0) g/dL Albumin (3.5-5.0) g/dL COVID-19 (LEN) (Negative) COVID-19 Clin Com Influenza Type A (RAYSA) (Negative) Influenza Type B (RAYSA) (Negative) Influenza A & B Note <BRANNON Bah - Last Filed: 04/21/22 17:32> Critical Care Time Critical Care Time Critical Care Time: No <BRANNON Bah - Last Filed: 04/21/22 17:32> Discharge Plan Discharge Clinical Impression: Chest pain <Candace Petres CNP - Last Filed: 04/21/22 12:32> Patient Disposition: Home, Self-Care <Candace Peters CNP - Last Filed: 04/21/22 12:32> Instructions: Chest Pain (ED) <Candace Peters CNP - Last Filed: 04/21/22 12:32> Additional Instructions: Take your medications as prescribed. If you were prescribed antibiotics today, it is important that you take your medication to their entirety, do not skip any doses, do not finish them early. Follow-up with your primary care provider this week. Follow-up with cardiology if pain persists Return to the emergency department with new or worsening symptoms. Such as fevers, chills, chest pain, shortness of breath, nausea, vomiting, dizziness, headache, vision changes, lethargy In case of emergency call 911 <Candace Peters CNP - Last Filed: 04/21/22 12:32> Prescriptions: New alum-mag hydroxide-simeth [Maalox Advanced] 200-200-20 mg/5 mL suspension 5 ml PO 5XD PRN (Reason: dyspepsia) Qty: 355 0RF Rx Instructions: administer between meals and at bedtime No Action rosuvastatin 40 mg tablet 40 mg PO DAILY lisinopril 5 mg tablet 5 mg PO DAILY <Candace Peters CNP - Last Filed: 04/21/22 12:32> Ref[place]: [facility] [place] [facility]] - 3 days Alton Durham MD [Primary Care Provider] - 2 days <Candace Peters CNP - Last Filed: 04/21/22 12:32> Stand Alone Forms: Work/School Release <Candace Peters CNP - Last Filed: 04/21/22 12:32>
[2022-04-21 12:29] VITALS: BP 185/77; PULSE 98; RESP 18; TEMP 36.8; O2SAT 98; BMI 23.4
--- NOTE | 2022-04-21 12:31 | ECG_ITS ---
Test Reason : cp Blood Pressure : / mmHG Vent. Rate : 092 BPM Atrial Rate : 092 BPM P-R Int : 138 ms QRS Dur : 084 ms QT Int : 328 ms P-R-T Axes : 076 016 008 degrees QTc Int : 405 ms Normal sinus rhythm Nonspecific T wave changes Abnormal ECG When compared with ECG of 15-AUG-2019 07:23, No significant change was found Referred By: Candace Peters Electronically Signed By:Bart Machado
[2022-04-21 13:04] LABS: MANUAL DIFF FLAG NO
[2022-04-21 13:05] LABS: Basophils Percent Auto 0.5 % (0-2); Eosinophils Absolute Auto 0.1 X10*3/uL (0.0-0.4); Eosinophils Percent Auto 1.6 % (0-4); Hematocrit 46.6 % (37.0-47.0); Hemoglobin 15.5 g/dl (12.0-16.0); Imm Gran Abs Auto 0.02 X10*3/uL (0.00-0.03); Imm Gran Pct Auto 0.4 % (0.0-0.4); Lymphocytes Absolute Auto 0.9 X10*3/uL (1.2-4.9); Lymphocytes Percent Auto 16.4 % (20-40); Mean Corpuscular HGB Conc 33.3 g/dl (31.0-35.0); Mean Corpuscular Hemoglobin 30.9 pg (27.0-33.0); Mean Corpuscular Volume 92.8 fL (80.0-98.0); Mean Platelet Volume 10.4 fL (9.4-12.3); Monocytes Absolute Auto 0.5 X10*3/uL (0.1-1.2); Monocytes Percent Auto 7.9 % (2-11); Neutrophils Absolute Auto 4.2 x10*3/uL (2.0-8.3); Neutrophils Percent Auto 73.2 % (45-73); Platelet Count 166 X10*3/uL (160-400); Red Blood Count 5.02 X10*6/uL (4.20-5.50); White Blood Count 5.7 X10*3/uL (4.8-10.8)
[2022-04-21 13:23] LABS: Alanine Aminotransferase 30 U/L (0-31); Albumin Level 4.6 g/dL (3.5-5.0); Alkaline Phosphatase 72 U/L (39-117); Anion Gap 13 (12-20); Aspartate Amino Transferase 28 U/L (5-31); Blood Urea Nitrogen 24 mg/dL (9-16); Calcium 10.1 mg/dL (8.4-10.2); Carbon Dioxide 28 mmol/L (22-29); Chloride 106 mmol/L (96-108); Creatinine Clr Calc Pharmacy 59.9; Estimated Glomerular Filt Rate > 60; Glucose Random 123 mg/dL (60-115); Magnesium 1.9 mg/dL (1.6-2.6); Potassium 4.7 mmol/L (3.3-5.1); Sodium 142 mmol/L (135-145); Total Protein 6.8 g/dL (6.5-8.0)
[2022-04-21 13:28] LABS: B Type Natriuretic Peptide 66 pg/mL (<100)
[2022-04-21 13:29] LABS: COVID-19 Test Negative (Negative); IDNOW Serial# 16C4AD1C; IDNOW Serial# 9DB6401D; Influenza A Negative (Negative); Influenza B2 Negative (Negative)
[2022-04-21 13:31] LABS: Bilirubin Total 0.5 mg/dL (0.0-1.0)
[2022-04-21 13:33] LABS: Troponin-I High Sensitivity 4.2 ng/L (<3.5-17.0)
[2022-04-21 16:40] VITALS: BP 162/64; PULSE 91; RESP 18; O2SAT 97
[2022-04-21] MEDS: Magnesium Hydrox/Alum Hydrox 30 ML ORAL.SUSP PO (16:55)
[2022-04-21 17:21] LABS: Troponin-I High Sensitivity 4.1 ng/L (<3.5-17.0)
== END 2022-04-21 17:41 | disposition home or self-care (01) ==
PROVIDERS: Nurse Practitioner Family; Physician Assistant; Emergency Provider Emergency Medicine; PCP Internal Medicine
DX: R07.9 Chest pain, unspecified (principal); Z20.822 Contact with and (suspected) exposure to COVID-19; I10 Essential (primary) hypertension; E78.5 Hyperlipidemia, unspecified; Z79.02 Long term (current) use of antithrombotics/antiplatelets; Z79.899 Other long term (current) drug therapy
CPT/HCPCS: 36415; 71046; 80053; 83735; 83880; 84484; 85025; 87502; 87635; 93005; 99283; 99284

== ENCOUNTER 2022-06-23 07:41 | Outpatient (REF) | payer MEDICARE, OTHER, SELFPAY ==
--- NOTE | ~2022-06-23 | US_ITS ---
EXAMINATION: US RETROPERITONEAL LIMITED (RENAL ONLY) CLINICAL INFORMATION: Calculus of kidney. COMPARISON: Ultrasound retroperitoneal limited (renal only) 07/01/2021 and 07/04/2020. X-ray abdomen KUB 12/21/2018 and 10/05/2018. TECHNIQUE: Real-time imaging of the kidneys. FINDINGS: RIGHT KIDNEY: 10.8 x 4.5 x 4.6 cm (SAG x AP x TRV). The kidney is normal in size, contour, and echogenicity. Renal cortical thickness is normal. There is a 2 mm echogenic focus seen in the mid right kidney consistent with a nonobstructing calculus. No focal parenchymal lesions or hydronephrosis. LEFT KIDNEY: 10.5 x 3.8 x 4.5 cm (SAG x AP x TRV). The kidney is normal in size, contour, and echogenicity. Renal cortical thickness is normal. There are multiple echogenic foci seen in the left kidney, the largest near the lower pole measuring 6 mm consistent with nonobstructing calculi. No hydronephrosis. Some subcentimeter benign cysts are noted on the left which need no additional imaging or followup. US/US renal BI IMPRESSION: Bilateral nonobstructing renal calculi.
== END 2022-06-23 07:42 | disposition home or self-care (01) ==
LOC: HO.US 07:41
PROVIDERS: Visit Provider Urology
DX: N20.0 Calculus of kidney (principal)
CPT/HCPCS: 76775

== ENCOUNTER → 2022-07-03 13:07 | Outpatient (BNVA) | payer MEDICARE, OTHER, SELFPAY | PROVIDERS: PCP Internal Medicine; Visit Provider Urology | DX: N20.0 Calculus of kidney (principal) | CPT/HCPCS: Q3014 ==

== ENCOUNTER 2022-08-07 11:14 | Outpatient (REF) | payer MEDICARE, OTHER, SELFPAY ==
[2022-08-07 11:51] LABS: Alanine Aminotransferase 21 U/L (0-31); Albumin Level 4.2 g/dL (3.5-5.0); Alkaline Phosphatase 80 U/L (39-117); Aspartate Amino Transferase 24 U/L (5-31); Bilirubin Direct 0.2 mg/dL (0.0-0.5); Bilirubin Total 0.7 mg/dL (0.0-1.0); Cholesterol 167 mg/dL; HDL Cholesterol 73 mg/dL; LDL Cholesterol Calculated 82 mg/dl; Total Protein 6.4 g/dL (6.5-8.0); Triglycerides 62 mg/dL
[2022-08-07 13:01] LABS: Reflex LDLD? No
== END 2022-08-07 11:15 | disposition home or self-care (01) ==
LOC: HO.LNP 11:14
PROVIDERS: Visit Provider Internal Medicine
DX: E78.00 Pure hypercholesterolemia, unspecified (principal)
CPT/HCPCS: 80061; 80076

== ENCOUNTER 2022-09-04 08:00 | Outpatient (RCR) | payer MEDICARE, OTHER, SELFPAY | END 2022-10-05 14:29 | disposition home or self-care (01) | LOC: HO.PTCHIC 08:00 | PROVIDERS: Visit Provider Student in an Organized Health Care Education/Training Program | DX: M51.17 Intervertebral disc disorders with radiculopathy, lumbosacral region (principal) | CPT/HCPCS: 97014; 97110; 97112; 97140; 97162 ==

== ENCOUNTER 2022-10-05 09:18 | Outpatient (REF) | payer MEDICARE, OTHER, SELFPAY ==
--- NOTE | ~2022-10-05 | XR_ITS ---
EXAMINATION: XR SHOULDER, LEFT CLINICAL INFORMATION: Left shoulder pain. COMPARISON: None available. TECHNIQUE: Four views of the left shoulder. XR/XR shoulder LT min 2V FINDINGS/IMPRESSION: There is a question of minimal, amorphous calcification projecting over the expected location of the insertion of the supraspinatus tendon on the humeral head, raising the possibility of calcific bursitis versus calcific tendinitis. The shoulder otherwise appears unremarkable. No fracture or dislocation is seen. Bony mineralization appears preserved. No lytic or sclerotic bony lesion is appreciated. Mildly atherosclerotic aorta.
== END 2022-10-05 09:19 | disposition home or self-care (01) ==
LOC: HO.XRAY 09:18
PROVIDERS: PCP Internal Medicine; Visit Provider Internal Medicine
DX: M25.512 Pain in left shoulder (principal)
CPT/HCPCS: 73030

== ENCOUNTER 2022-11-30 13:52 | Outpatient (AMB) | payer MEDICARE, OTHER, SELFPAY ==
--- NOTE | 2022-11-30 14:01 | AM.OFFWIN_ITS ---
Intake Vital Signs 11/30/22 14:08 BP 130/80 Blood Pressure Location Lt brachial Position Sitting Pulse 97 Pulse Source Pulse Oximeter Temp 97.2 F Temp Source Temporal Artery Scan Pulse Oximetry (%) 98 Oxygen Delivery Method Room Air Intake Visit Reasons: EST/ shoulder and abd pain Intake Note: Patient here for shoulder pain that has been bothersome since august, she states she has been taking baby aspirin since august because Tylenol was not working anymore. recently she has developed abdominal pain now is wondering if its from meds she has been taking them so frequently. Denies any issues w/ using the bathroom. Patient Tobacco Use Status: Never used Tobacco Allergies cephalexin [From KEFLEX] Allergy (Severe, Verified 11/30/22 14:07) RASH Sulfa (Sulfonamide Antibiotics) [SULFA (SULFONAMIDE ANTIBIOTICS)] Allergy (Severe, Verified 11/30/22 14:07) INTSERNAL AND EXTERNAL RASH/INFECTION Iodinated Contrast Media [IV Dye, Iodine Containing] Allergy (Intermediate, Verified 11/30/22 14:07) HIVES,REDNESS + SWELLING sulfamethoxazole [From BACTRIM] Allergy (Intermediate, Verified 11/30/22 14:07) INTERNAL AND EXTERNAL RASH/ INFECTION Do you need a note to return to daycare/school/sports/work: No HPI EST/ shoulder and abd pain HPI Details 82-year-old female presents to the office for a sick visit. Patient was seen for shoulder pain a few months ago. She was also diagnosed with reflux disease here and started on a PPI. She later saw her primary care provider who had discontinued the PPI. She continued to have the pain in the shoulder and s tarted taking aspirin and Tylenol. Over the last 5 months she has taken about 100 pills. Since yesterday she has been having lower abdominal pain. Minimal belching. No fevers or chills. No diarrhea or dark stools. No vomiting. [facility] Social History Alcohol intake: never Patient Tobacco Use Status: Never used Tobacco Physical Exam Vital Signs: Last Vital Signs Temp 97.2 F 11/30/22 14:08 Pulse 97 11/30/22 14:08 BP 130/80 11/30/22 14:08 Pulse Ox 98 11/30/22 14:08 Oxygen Delivery Method Room Air 11/30/22 14:08 Const General: cooperative and healthy appearing Nutritional Appearance: well nourished Orientation/consciousness: patient oriented x3 Limitations: no limitations HEENT Head: Yes normal to inspection Eyes General: appearance normal, both eyes and all related structures Neck Neck: Yes normal visual inspection Chest Chest palpation & inspection: normal palpation of entire chest wall Resp Effort & Inspection: normal respiratory effort Neuro General: patient oriented x3 Assessment & Plan Assessment & Plan (1) Epigastric pain: Code(s): R10.13 - Epigastric pain Plan: patient was advised to switch to Tylenol. Encouraged to get physical therapy have possible orthopedic appointment for the shoulder. Start the PPIs today. If symptoms do not improve in 48 hours to follow-up here. Medications: New esomeprazole magnesium (Nexium) 20 mg PO DAILY 30 caps 0RF Coding Level of Care Code Est Pt Level 3 (39000) Diagnoses Epigastric pain R10.13
[2022-11-30 14:08] VITALS: BP 130/80; PULSE 97; TEMP 36.2; O2SAT 98
== END 2022-11-30 14:27 | disposition home or self-care (01) ==
PROVIDERS: PCP Internal Medicine; Visit Provider Internal Medicine
DX: R10.13 Epigastric pain (principal)
CPT/HCPCS: 99213

== ENCOUNTER 2022-12-18 08:55 | Outpatient (AMB) | payer MEDICARE, OTHER, SELFPAY ==
--- NOTE | 2022-12-18 08:56 | AM.OFFWIN_ITS ---
Intake Vital Signs 12/18/22 08:57 Height 5 ft 8 in Weight 157 lb BMI 23.9 BP 130/72 Blood Pressure Location Lt brachial Position Sitting Pulse 80 Pulse Source Pulse Oximeter Temp 97.8 F Temp Source Temporal Artery Scan Pulse Oximetry (%) 97 Intake Visit Reasons: EP AB Pain Intake Note: pt is here for c/o ABD pain Patient Tobacco Use Status: Never used Tobacco Allergies cephalexin [From KEFLEX] Allergy (Severe, Verified 12/18/22 09:00) RASH Sulfa (Sulfonamide Antibiotics) [SULFA (SULFONAMIDE ANTIBIOTICS)] Allergy (Severe, Verified 12/18/22 09:00) INTSERNAL AND EXTERNAL RASH/INFECTION Iodinated Contrast Media [IV Dye, Iodine Containing] Allergy (Intermediate, Verified 12/18/22 09:00) HIVES,REDNESS + SWELLING sulfamethoxazole [From BACTRIM] Allergy (Intermediate, Verified 12/18/22 09:00) INTERNAL AND EXTERNAL RASH/ INFECTION Do you need a note to return to daycare/school/sports/work: No HPI HPI Comments History of Present Illness Details This is a 82-year-old female who presents to the office today for sick visit. Patient complaining of persistent lower abdominal pain for the past several weeks. Patient has been having left shoulder pain since 08/2022 and she has been evaluated multiple times for this shoulder pain as well as seen by physical therapy. Patient then started to develop epigastric pain and she was diagnosed with acid reflux and started on PPI therapy in 10/2022. Patient was then seen here on 11/30/2022 with lower abdominal pain and she was again told it was acid reflux and was instructed to continue the PPI. Patient re-presented today for persistent lower abdominal pain. She denies any associated nausea/ vomiting / diarrhea. She denies any melena /hematochezia. She denies any fevers or chills. she denies any dysuria, hematuria, urinary frequency, or urinary urgency. She denies any flank or back pain.She is able to tolerate food and oral intake without difficulty. She reports the pain is intermittent but has become slightly more constant over the past several days. She describes the pain as crampy but sometimes sharp in nature. She has been passing gas and having normal bowel movements. [facility] Social History (Reviewed 07/03/22 @ 13:08 by CitlaliCAMILA Gifford Alcohol intake: never Patient Tobacco Use Status: Never used Tobacco Review of Systems Const All systems reviewed & are unremarkable except as noted in HPI and below Reports no additional complaints Eyes Reports no additional complaints ENT Reports no additional complaints Card Reports no additional complaints Resp Reports no additional complaints GI Reports no additional complaints and Reports abdominal pain Reports no additional complaints Musc Reports no additional complaints Skin/Breast Reports system reviewed and no additional complaints, except as documented Neuro Reports no additional complaints Psych Reports no additional complaints Endo Reports no additional complaints Efe/Lymph Reports no additional complaints Aller/Immun Reports no additional complaints Physical Exam Vital Signs: Last Vital Signs Temp 97.8 F 12/18/22 08:57 Pulse 80 12/18/22 08:57 BP 130/72 12/18/22 08:57 Pulse Ox 97 12/18/22 08:57 BMI result Body Mass Index 23.9 Const General: cooperative, healthy appearing, no acute distress and well developed Orientation/consciousness: patient oriented x3 HEENT Head: Yes normal to inspection Ears: hearing grossly normal bilaterally General nose exam: Normal external nose present Face and sinus: Yes normal facial exam Mouth: Normal oral and palatal mucosa present Eyes General: appearance normal, both eyes and all related structures Pupils: Equal, round and reactive pupils present EOM: EOMs intact bilaterally Resp Effort & Inspection: normal respiratory effort and no respiratory distress Auscultation: clear to auscultation bilaterally Cardio Rate: regular rate Rhythm: regular rhythm Heart sounds: no gallops, no murmurs and no rubs Peripheral pulses: Peripheral pulses 2+ throughout GI Inspection: No distended Palpation (GI): Soft to palpation and Tenderness to palpation present (GI) ( Mild tenderness to palpation of the lower abdomen.) Auscultation: normal bowel sounds General: Yes no CVA tenderness Back/Spine/Pelvis Back: no CVA tenderness Skin General skin exam: no rashes or lesions noted Neuro General: patient oriented x3 Cranial nerves: Yes CN's II-XII intact bilaterally and Yes Equal, round and reactive pupils present Gait exam (Neuro): Normal gait present Motor exam (neuro): 5/5 motor strength present throughout Extrem General: Yes normal to inspection, Yes full ROM and Yes no clubbing, cyanosis or edema Psych Appearance: grossly normal Mental Status: mental status grossly normal Assessment & Plan Assessment & Plan (1) Abdominal pain: Code(s): R10.9 - Unspecified abdominal pain Plan: This is an 82-year-old female with past medical history significant for GERD who presented with persistent lower abdominal pain. On physical examination, patient has mild diffuse tenderness to palpation of the lower abdomen. She has normoactive bowel sounds in all 4 quadrants. Her abdomen is soft and nondistended. Given persistent lower abdominal pain as well as diffuse tenderness to palpation, I recommended patient proceed to the emergency room for further evaluation to rule out acute infectious process such as appendicitis or cholecystitis; bowel obstruction unlikely given positive bowel sounds and passing gas/bowel movements, acute pancreatitis unlikely given no epigastric tenderness to palpation. However, patient declines at this time and states she would rather call her primary care physician and undergo an outpatient workup. Patient has no evidence of acute abdomen at this time. Patient's vital signs are stable and she is overall nontoxic appearing. She is able to tolerate oral intake without difficulty. I recommended patient continue with her daily PPI therapy as well as Maalox as needed. I also recommended continuing with acetaminophen as needed and advised patient to avoid ibuprofen / aspirin as this can lead to peptic ulcer disease. Patient has the medical competence to make medical decisions for herself and she would prefer to undergo outpatient work-up with her PCP. Patient was advised to proceed directly to the emergency room if she were to develop fever/chills, nausea / vomiting, worsening abdominal pain, or inability to tolerate oral intake. Patient verbalizes her understanding and she is in agreement with the plan. Coding Level of Care Code New Pt Level 3 (14546) Diagnoses Abdominal pain R10.9
[2022-12-18 08:57] VITALS: BP 130/72; PULSE 80; TEMP 36.6; O2SAT 97; BMI 23.9
== END 2022-12-18 09:28 | disposition home or self-care (01) ==
PROVIDERS: PCP Internal Medicine; Visit Provider Physician Assistant Medical
DX: R10.9 Unspecified abdominal pain (principal)
CPT/HCPCS: 99203; 99213

== ENCOUNTER 2022-12-28 08:00 | Outpatient (RCR) | payer MEDICARE, OTHER, SELFPAY | END 2022-12-28 08:58 | disposition home or self-care (01) | LOC: HO.PTCHIC 08:00 | PROVIDERS: PCP Internal Medicine; Visit Provider Internal Medicine | DX: M25.512 Pain in left shoulder (principal) | CPT/HCPCS: 97014; 97110; 97140; 97162 ==

== ENCOUNTER 2023-01-20 14:09 | Outpatient (REF) | payer MEDICARE, OTHER, SELFPAY ==
--- NOTE | ~2023-01-20 | CT_ITS ---
EXAMINATION: CT ABDOMEN AND PELVIS WITHOUT CONTRAST CLINICAL INFORMATION: Lower abdominal pain COMPARISON: None available. TECHNIQUE: Multidetector volumetric imaging was performed from the superior aspect of the liver through the pubic symphysis. Sagittal and coronal reformatted images were obtained on the technologist's workstation. This CT examination was performed using dose optimization techniques as appropriate, variously including the following: *Automated exposure control *Adjustment of mA and/or kV according to patient size (this includes techniques or standardized protocols for targeted exams where dose is matched to indication/reason for exam; i.e. extremities or head) *Use of iterative reconstruction technique DLP: 535 mGy-cm FINDINGS: REHABILITATION ATTENDANT: Fecal retention. Hard stool in rectum. LUNG BASES: 6 mm and 5 mm right lower lobe nodules. Nonenlarged heart. No pericardial effusion. Right lower lobe subpleural nodule. LIVER, GALLBLADDER, AND BILIARY TREE: The liver is normal in size, shape, and attenuation. No focal hepatic lesion or biliary ductal dilatation is present. Hepatic granulomas. The gallbladder is decompressed with no evidence of radiopaque gallstones, gallbladder wall thickening, or obvious pericholecystic inflammatory changes. PANCREAS: Unremarkable. SPLEEN: Splenic granulomas.. ADRENAL GLANDS: Unremarkable. KIDNEYS AND URETERS: The kidneys are normal in size, shape, and attenuation. No hydronephrosis or hydroureter. Nonobstructing left renal calculi, largest measures 3 mm. Left lower pole renal scarring. 4 mm right midpole hyperdensity, on 07/01/2021 ultrasound described as possible echogenic calculus. No perinephric stranding. BLADDER: Decompressed. GASTROINTESTINAL TRACT: Under distended stomach. Nonobstructive bowel port. Unremarkable terminal ileum and appendix. Moderately severe fecal retention. Mild diverticulosis without diverticulitis. Hard stool in the rectum. ABDOMINAL WALL: Small fat filled umbilical hernia. LYMPH NODES: No pathologic lymphadenopathy. VASCULAR: Atherosclerotic calcifications nonaneurysmal aorta. Normal caliber inferior vena cava. PELVIC VISCERA: 3.2 cm low-density right adnexal structure. OSSEOUS STRUCTURES: Multilevel disc space narrowings with vacuum disc phenomena CT/CT abdomen pelvis wo IV con IMPRESSION: Moderately severe fecal retention. Diverticulosis without diverticulitis. Nonobstructing renal calculi. Pulmonary nodules, largest measuring 6 mm. Per Fleischner criteria, in low-risk patient CT at 3-[address] in 18-24 mos. For indeterminate and high risk patients, 3-[address] with follow-up CT at 18-24 months. 3.2 cm right adnexal low-density structure, likely cyst. Follow-up ultrasound in 6-12 months recommended. Fleischner guidelines were followed.
== END 2023-01-20 14:10 | disposition home or self-care (01) ==
LOC: HO.CT 14:09
PROVIDERS: PCP Internal Medicine; Visit Provider Internal Medicine
DX: R10.30 Lower abdominal pain, unspecified (principal)
CPT/HCPCS: 74176

== ENCOUNTER 2023-03-01 10:58 | Outpatient (REF) | payer MEDICARE, OTHER, SELFPAY ==
[2023-03-01 11:02] LABS: MANUAL DIFF FLAG NO
[2023-03-01 11:12] LABS: Basophils Percent Auto 1.1 % (0-2); Eosinophils Absolute Auto 0.1 X10*3/uL (0.0-0.4); Eosinophils Percent Auto 3.9 % (0-4); Hematocrit 43.7 % (37.0-47.0); Hemoglobin 14.1 g/dl (12.0-16.0); Imm Gran Abs Auto 0.01 X10*3/uL (0.00-0.03); Imm Gran Pct Auto 0.3 % (0.0-0.4); Lymphocytes Absolute Auto 0.8 X10*3/uL (1.2-4.9); Lymphocytes Percent Auto 21.1 % (20-40); Mean Corpuscular HGB Conc 32.3 g/dl (31.0-35.0); Mean Corpuscular Hemoglobin 30.6 pg (27.0-33.0); Mean Corpuscular Volume 94.8 fL (80.0-98.0); Mean Platelet Volume 10.8 fL (9.4-12.3); Monocytes Absolute Auto 0.4 X10*3/uL (0.1-1.2); Monocytes Percent Auto 11.1 % (2-11); Neutrophils Absolute Auto 2.3 x10*3/uL (2.0-8.3); Neutrophils Percent Auto 62.5 % (45-73); Platelet Count 159 X10*3/uL (160-400); Red Blood Count 4.61 X10*6/uL (4.20-5.50); Red Cell Distribution Width 13.6 % (11.0-16.0); White Blood Count 3.6 X10*3/uL (4.8-10.8)
[2023-03-01 11:13] LABS: Appearance Urine Cloudy; Color Urine Yellow; Glucose Urine UA Negative (Negative); Leukocyte Esterase Urine Trace (Negative); Nitrite Urine Negative (Negative); PH 7.5 (5.0-9.0); Specific Gravity - Urine 1.015 (1.005-1.025); UMIC TRIGGER UACC YES; Urine Blood Negative (Negative); Urine Ketones Negative (Negative); Urine Protein Negative (Neg-Trace)
[2023-03-01 11:16] LABS: Bacteria Urine None Seen (None Seen); Hyaline Casts Urine 0-2 /LPF (0-2); RBC Urine 0-2 /HPF (0-2); Squamous Epithelial Cell Urine 0-2 /HPF (0-2); WBC Urine 0-5 /HPF (0-5)
[2023-03-01 11:39] LABS: Alanine Aminotransferase 24 U/L (0-31); Albumin Level 4.1 g/dL (3.5-5.0); Alkaline Phosphatase 59 U/L (39-117); Anion Gap 12 (12-20); Aspartate Amino Transferase 25 U/L (5-31); Bilirubin Total 0.6 mg/dL (0.0-1.0); Blood Urea Nitrogen 19 mg/dL (9-16); Calcium 9.8 mg/dL (8.4-10.2); Carbon Dioxide 28 mmol/L (22-29); Chloride 106 mmol/L (96-108); Cholesterol 152 mg/dL (<200); Estimated Glomerular Filt Rate > 60; Glucose Fasting 94 mg/dL (60-99); HDL Cholesterol 77 mg/dL (>40); LDL Cholesterol Calculated 66 mg/dL (<100); Potassium 4.1 mmol/L (3.3-5.1); Sodium 142 mmol/L (135-145); Total Protein 6.5 g/dL (6.5-8.0); Triglycerides 46 mg/dL (<150)
== END 2023-03-01 10:59 | disposition home or self-care (01) ==
LOC: HO.LNP 10:58
PROVIDERS: Visit Provider Internal Medicine
DX: D70.9 Neutropenia, unspecified (principal); E78.00 Pure hypercholesterolemia, unspecified; I10 Essential (primary) hypertension
CPT/HCPCS: 80053; 80061; 81001; 85025

== ENCOUNTER 2023-04-14 07:01 | Emergency (ER) | payer MEDICARE, OTHER, SELFPAY ==
--- NOTE | 2023-04-14 | ECG_ITS ---
Test Reason : tachycardia Blood Pressure : / mmHG Vent. Rate : 094 BPM Atrial Rate : 094 BPM P-R Int : 146 ms QRS Dur : 084 ms QT Int : 354 ms P-R-T Axes : 080 018 006 degrees QTc Int : 442 ms Normal sinus rhythm Possible Left atrial enlargement Nonspecific ST and T wave abnormality Abnormal ECG When compared with ECG of 21-APR-2022 12:36, Nonspecific T wave abnormality, worse in Anterior leads Referred By: Generic ED Physician Electronically Signed By:Bart Machado
--- NOTE | ~2023-04-14 | MR_ITS ---
EXAMINATION: MRI OF THE BRAIN WITHOUT CONTRAST CLINICAL INFORMATION: TIA symptoms, right facial droop and right upper extremity heaviness, resolved. COMPARISON: CT scan of the head earlier 04/14/2023. MRI scan of the brain 09/27/2019. TECHNIQUE: MRI of the brain was obtained using routine sequences without contrast. FINDINGS: No diffusion abnormalities are identified to suggest an acute or subacute infarct. There is an equivocal focus of increased diffusion signal with restriction in the right aspect of the stas ventrally, likely artifact. No mass effect or midline shift is seen. The ventricles and sulci commensurately prominent consistent with diffuse volume loss. There are moderate areas of increased T2 and FLAIR signal in the periventricular and subcortical white matter, as well as relatively extensive areas within the stas consistent with chronic microvascular ischemic changes. No extra-axial fluid collections are seen. The cerebellar appears normal. No pathologic magnetic susceptibility artifact is identified on the gradient refocused acquisition. The craniovertebral junction, marrow signal, and midline structures are normal. The major intracranial flow-voids at the level of the the [place] are preserved. The dural venous sinus flow-voids are maintained. The mastoid air cells are well-aerated. There is mild mucoperiosteal thickening in the ethmoid sinuses bilaterally. MR/MR head/brain wo con IMPRESSION: 1. There is an equivocal focus of increased diffusion signal with apparent restriction in the right aspect of the stas ventrally, likely artifact. There is no other abnormal diffusion signal. There is no evidence of acute hemorrhage. 2. There are chronic microvascular ischemic changes and there is diffuse volume loss. 3. This critical result was discussed with Alyssa Powers by telephone on 04/14/2023 at 1:35 PM and it was ascertained that the content and urgency of the report was understood at the time of direct communication.
--- NOTE | ~2023-04-14 | CT_ITS ---
EXAMINATION: CT HEAD WITHOUT CONTRAST CLINICAL INFORMATION: 82-year-old with head trauma. COMPARISON: None available. TECHNIQUE: Contiguous axial imaging was performed from the skull base to vertex without intravenous administration of contrast. This CT examination was performed using dose optimization techniques as appropriate, variously including the following: *Automated exposure control *Adjustment of mA and/or kV according to patient size (this includes techniques or standardized protocols for targeted exams where dose is matched to indication/reason for exam; i.e. extremities or head) *Use of iterative reconstruction technique DLP: 582 mGy-cm FINDINGS: Brain Volume: Mild generalized diffuse parenchymal volume loss within the limitations of qualitative assessment. Structural: No malformations. Brain and Meninges: Scattered tiny zones of patchy hypodensity are seen in the subcortical white matter of both cerebral hemispheres which are nonspecific but are most likely reflective of chronic ischemic microangiopathy in a patient of this age. There is no evidence for intracranial hemorrhage, extra-axial fluid collection, space-occupying process or mass effect. [place]ios-white matter interface is preserved and there is no acute territorial infarct/edematous infarction. Ganglionic structures and midbrain appear grossly intact. There is beam hardening artifact partially obscuring the stas which limits the study. Ventricles and Subarachnoid Spaces: The ventricular system and subarachnoid spaces are within normal range; there is no hydrocephalus. Orbital Structures: Grossly unremarkable within the limitations of the study. Osseous Structures, Sinuses/Mastoids, Extracranial Soft Tissues: Unremarkable CT/CT head/brain wo IV con IMPRESSION: 1. No acute intracranial process. No evidence for acute territorial infarct, intracranial hemorrhage, extra-axial fluid collection, space-occupying process or mass effect. 2. Scattered tiny zones of patchy hypodensity in the subcortical white matter of both cerebral hemispheres which are nonspecific but are most likely reflective of chronic ischemic microangiopathy in a patient of this age.
[2023-04-14 07:11] VITALS: BP 173/74; PULSE 105; RESP 18; TEMP 36.6; O2SAT 96; BMI 24.3
[2023-04-14 07:40] LABS: Eosinophils Absolute Auto 0.1 X10*3/uL (0.0-0.4); Eosinophils Percent Auto 2.2 % (0-4); Hematocrit 45.8 % (37.0-47.0); Imm Gran Abs Auto 0.01 X10*3/uL (0.00-0.03); Imm Gran Pct Auto 0.2 % (0.0-0.4); Lymphocytes Absolute Auto 0.7 X10*3/uL (1.2-4.9); Lymphocytes Percent Auto 15.9 % (20-40); MANUAL DIFF FLAG NO; Mean Corpuscular HGB Conc 32.8 g/dl (31.0-35.0); Mean Corpuscular Hemoglobin 30.9 pg (27.0-33.0); Mean Corpuscular Volume 94.4 fL (80.0-98.0); Mean Platelet Volume 10.3 fL (9.4-12.3); Monocytes Absolute Auto 0.4 X10*3/uL (0.1-1.2); Monocytes Percent Auto 8.4 % (2-11); Neutrophils Percent Auto 72.3 % (45-73); Platelet Count 147 X10*3/uL (160-400); Red Blood Count 4.85 X10*6/uL (4.20-5.50); Red Cell Distribution Width 13.1 % (11.0-16.0); White Blood Count 4.2 X10*3/uL (4.8-10.8)
[2023-04-14 07:52] LABS: Anion Gap 13 (12-20); Blood Urea Nitrogen 22 mg/dL (9-16); Carbon Dioxide 27 mmol/L (22-29); Chloride 107 mmol/L (96-108); Creatinine Clr Calc Pharmacy 57.3; Estimated Glomerular Filt Rate > 60; Glucose Random 121 mg/dL (60-115); Potassium 4.3 mmol/L (3.3-5.1); Sodium 143 mmol/L (135-145)
--- NOTE | 2023-04-14 09:35 | ED.NEUROSD ---
HPI - Neuro Symptoms/Deficit General Chief Complaint: Neuro Symptoms/Deficit Stated Complaint: head strike about a week ago Time Seen by Provider: 04/14/23 08:46 Source: patient Mode of arrival: ambulatory History of Present Illness HPI Narrative: 82-year-old female with history of hypertension presents with having struck the right side of her head last week without loss of consciousness and not on blood thinners but describes that since that time starting on Wednesday she had a add basal skull am headache without visual or speech deficits and at that time no other symptoms of numbness/tingling/weakness. However, on Wednesday throughout the day patient describes that she had some episodes of right upper extremity heaviness. Then, this morning at 03:24 in the morning patient was lying on her right side and describes waking up stating that her right face was drooping and that she had tingling and heaviness in both the right upper extremity and right lower extremity. Patient decided to go back to sleep and when she awoke all symptoms had resolved but she wish to come into the emergency room and get evaluated. Related Data Home Medications Medication Instructions Recorded Confirmed lisinopril 5 mg tablet 5 mg PO DAILY 02/07/21 04/14/23 rosuvastatin 40 mg tablet 40 mg PO DAILY 02/07/21 04/14/23 Allergies Allergy/AdvReac Type Severity Reaction Status Date / Time cephalexin [From KEFLEX] Allergy Severe RASH Unverified 04/14/23 07:11 Sulfa (Sulfonamide Allergy Severe INTSERNAL Verified 04/14/23 07:11 Antibiotics) AND [SULFA (SULFONAMIDE EXTERNAL ANTIBIOTICS)] RASH/INFECTION Iodinated Contrast Media Allergy Intermediate HIVES,REDNESS Verified 04/14/23 07:11 [IV Dye, Iodine Containing] + SWELLING sulfamethoxazole Allergy Intermediate INTERNAL Verified 04/14/23 07:11 [From BACTRIM] AND EXTERNAL RASH/ INFECTION Review of Systems Review of Systems: Pertinent positives and negatives as stated in HPI [facility] Past Medical History Source: nursing notes reviewed Social History Social History Alcohol intake: never Patient Tobacco Use Status: Never used Tobacco Smoked in Last 30 Days: No Use of substances other than those prescribed or required for medical reasons: No Any prior treatment program specific to substance use: No Advance Directives: Yes Advance Directives Information Provided: No Advance Directives on File: No Physical Exam Vital Signs: Vital Signs: Last Vital Signs Temp 97.8 F 04/14/23 14:06 Pulse 86 04/14/23 14:06 Resp 18 04/14/23 14:06 BP 160/79 H 04/14/23 14:06 Pulse Ox 99 04/14/23 14:06 O2 Del Method Room Air 04/14/23 14:06 BMI result Body Mass Index 24.3 VITAL SIGNS: Reviewed. GENERAL: Well developed, well nourished, in no acute distress. HEAD: Normocephalic/atraumatic EYES: PERRLA, EOMI EARS: Ext canals without abnormality, TMs non-bulging and non-erythematous, no rash or vesicular lesions noted NOSE: Nares patent bilateral OROPHARYNX: no oral lesions noted, posterior pharynx clear and non-erythematous without noted tonsillar enlargement/erythema/exudates, no intraoral rash or vesicular lesions noted NECK: Supple, no adenopathy LUNGS: Normal breath sounds. No adventitious sounds or accessory muscle use. SpO2<96> CARDIOVASCULAR: Regular rate and rhythm without noted murmurs ABDOMEN: Soft, non-tender, non-distended with bowel sounds. MUSCULOSKELETAL: No tenderness, deformities, or effusions noted on gross inspection. EXTREMITIES: No cyanosis, clubbing or edema. SKIN: Inspection of the skin reveals no rashes NEUROLOGIC: Alert and oriented x 4. Strength and sensation to light touch were grossly intact x 4, no facial asymmetry, no pronator drift, no truncal ataxia, cranial nerves 2-12 are grossly intact, no gait instability. Medications Administered Discontinued Medications Generic Name Dose Route Start Last Admin Trade Name Liza PRN Reason Stop Dose Admin Aspirin 162 mg 04/14/23 09:48 04/14/23 10:45 Aspirin 81 Mg Tab.Chew PO 04/14/23 09:49 162 mg ONCE ONE Administration Medical Decision Making Medical Decision Making MDM Narrative: 82-year-old female with history and clinical presentation, DDX: Generic headache, viral illness, TIA. At this time patient is completely asymptomatic, given the fact that there is a possibility of TIA and there is that negative noncontrast head CT and no focal findings will proceed with MRI and if negative will discharge patient with suspected sleep position related symptoms. In addition, will rule out any evidence to suggest competing etiologies. I reviewed all investigations and hematologic indices negative for leukocytosis or left shift, there is no anemia but there is a thrombcytopenia but appears to be chronic in nature. Chemistry indices grossly within normal limits, there is no evidence of GARRY her electrolyte derangements. 1335: [facility] called me regarding MRI results and states that there are equivocal findings in the right stas that could be artifact but no other abnormal diffusion signals noted. My interpretation is this is not consistent with a TIA as patient's symptoms are not consistent with the location that is been determined as equivocal by radiology. She is otherwise discharged home with generalize headache and symptoms associated with alternative etiologies and she will be encouraged to follow-up with her primary care doctor. Differential Diagnosis Differential Diagnoses: The differential diagnosis associated with the presentation includes Please see the discussion above Admission/Observation Consideration of admission/observation: Escalation of care including admission/observation considered Please see the discussion above Lab Data MDM Lab Attestation statement: I reviewed the patient's lab results. Please see the discussion above 04/14/23 07:32 04/14/23 07:32 Labs: Lab Results 04/14/23 Range/Units 07:32 WBC 4.2 L (4.8-10.8) X10*3/uL RBC 4.85 (4.20-5.50) X10*6/uL Hgb 15.0 (12.0-16.0) g/dl Hct 45.8 (37.0-47.0) % MCV 94.4 (80.0-98.0) fL MCH 30.9 (27.0-33.0) pg MCHC 32.8 (31.0-35.0) g/dl RDW 13.1 (11.0-16.0) % Plt Count 147 L (160-400) X10*3/uL MPV 10.3 (9.4-12.3) fL Immature Gran % (Auto) 0.2 (0.0-0.4) % Neut % (Auto) 72.3 (45-73) % Lymph % (Auto) 15.9 L (20-40) % [place] % (Auto) 8.4 (2-11) % Eos % (Auto) 2.2 (0-4) % Baso % (Auto) 1.0 (0-2) % Lymph # (Auto) 0.7 L (1.2-4.9) X10*3/uL [place] # (Auto) 0.4 (0.1-1.2) X10*3/uL Eos # (Auto) 0.1 (0.0-0.4) X10*3/uL Baso # (Auto) 0.0 (0.0-0.2) X10*3/uL Abs Immat Gran (auto) 0.01 (0.00-0.03) X10*3/uL Absolute Neuts (auto) 3.0 (2.0-8.3) x10*3/uL Absolute Nucleated RBC 0.000 (0.0-0.012) X10*3/uL Nucleated RBC % (auto) 0.0 (0.0-0.2) /100WBC Sodium 143 (135-145) mmol/L Potassium 4.3 (3.3-5.1) mmol/L Chloride 107 (96-108) mmol/L Carbon Dioxide 27 (22-29) mmol/L Anion Gap 13 (12-20) BUN 22 H (9-16) mg/dL Creatinine 0.75 (0.5-1.4) mg/dL Estim Creat Clear Calc 57.3 Estimated GFR > 60 Random Glucose 121 H (60-115) mg/dL Calcium 10.0 (8.4-10.2) mg/dL Independent Interpretation I performed an independent interpretation of an: EKG Interpretation: Normal sinus rhythm, HR-94, no STEMI, SC/QRS/QTC is within normal limits, there are no acute changes when compared to prior. Radiology Impression Discussion of test interpretation with radiology: I have reviewed the radiologist's reading. Radiologist Impression: Please see the discussion above External Record Review External record reviewed: Outpatient record, Prior outpatient labs and Prior outpatient radiology Chronic Conditions Patient?s care impacted by: Hypertension Critical Care Time Critical Care Time Critical Care Time: Yes Total Critical Care Time: 45 Attestation: I personally attest to this time spent taking care of the patient. Discharge Plan Discharge Clinical Impression: Headache, Paresthesias Patient Disposition: Home, Self-Care Instructions: General Headache (ED), Paresthesia (ED) Additional Instructions: 1. Resume all home medications as prescribed. Treat your headaches with Tylenol, increase the amount of water intake. 2. Your workup today was negative and there is no evidence to suggest a TIA at this time. 3. Please follow-up with your primary care doctor at your earliest convenience. Return to the ER for any worsening symptoms. Prescriptions: No Action rosuvastatin 40 mg tablet 40 mg PO DAILY lisinopril 5 mg tablet 5 mg PO DAILY Referrals: Alton Durham MD [Primary Care Provider] -
[2023-04-14 09:57] VITALS: BP 144/75; PULSE 81; RESP 16; TEMP 36.6; O2SAT 98
[2023-04-14] MEDS: Aspirin 81 MG TAB.CHEW 162 MG PO (10:45)
[2023-04-14 11:59] VITALS: BP 149/76; PULSE 82; RESP 16; TEMP 36.6; O2SAT 99
[2023-04-14 14:06] VITALS: BP 160/79; PULSE 86; RESP 18; TEMP 36.6; O2SAT 99
== END 2023-04-14 14:48 | disposition home or self-care (01) ==
PROVIDERS: Emergency Provider Student in an Organized Health Care Education/Training Program; PCP Internal Medicine
DX: R51.9 Headache, unspecified (principal); R20.2 Paresthesia of skin
CPT/HCPCS: 36415; 70450; 70551; 80048; 85025; 93005; 99285

== ENCOUNTER → 2023-04-14 07:26 | Outpatient (BNV) | payer MEDICARE, OTHER, SELFPAY | PROVIDERS: Emergency Provider Student in an Organized Health Care Education/Training Program; PCP Internal Medicine; Visit Provider Internal Medicine Cardiovascular Disease | DX: R94.31 Abnormal electrocardiogram [ECG] [EKG] (principal); R00.0 Tachycardia, unspecified | CPT/HCPCS: 93010 ==

== ENCOUNTER 2023-04-19 07:42 | Outpatient (REF) | payer MEDICARE, OTHER, SELFPAY ==
--- NOTE | ~2023-04-19 | MM_ITS ---
EXAMINATION: MM SCREENING DIGITAL BREAST TOMOSYNTHESIS, BILATERAL CLINICAL INFORMATION: Screening. Asymptomatic. COMPARISON: Mammography: This study is compared with prior exams dating back to 2019. TECHNIQUE: Digital breast tomosynthesis is performed in both the craniocaudal and mediolateral oblique views along with computer-aided detection (CAD). Synthesized 2D images are generated from the tomosynthesis. FINDINGS: There are scattered areas of fibroglandular density (ACR BI-RADS breast composition Category b). There are no significant masses, abnormal calcifications, or other abnormalities. The previously defined left breast focal asymmetry in the 3:00 position is no longer present. 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 There are bilateral benign calcifications. MM/MM tomosynthesis screening BI IMPRESSION: No mammographic evidence of malignancy. ASSESSMENT: BI-RADS BI-RADS 2 - Benign Findings RECOMMENDATION: Routine annual mammography screening. 1 year F/U This examination should not preclude the clinical evaluation of a suspicious palpable abnormality. This patient's information was entered into a reminder system with a target due date for their next mammogram.
== END 2023-04-19 07:43 | disposition home or self-care (01) ==
LOC: HO.MAMMO 07:42
PROVIDERS: PCP Internal Medicine; Visit Provider Internal Medicine
DX: Z12.31 Encounter for screening mammogram for malignant neoplasm of breast (principal)
CPT/HCPCS: 77063; 77067

== ENCOUNTER → 2023-04-19 08:00 | Outpatient (BNV) | payer MEDICARE, OTHER, SELFPAY | PROVIDERS: PCP Internal Medicine; Visit Provider Radiology Diagnostic Radiology | DX: Z12.31 Encounter for screening mammogram for malignant neoplasm of breast (principal) | CPT/HCPCS: 77063; 77067 ==

== ENCOUNTER 2023-06-19 06:21 | Emergency (ER) | payer MEDICARE, OTHER, SELFPAY ==
--- NOTE | ~2023-06-19 | CT_ITS ---
EXAMINATION: CT SOFT TISSUE NECK WITHOUT CONTRAST CLINICAL INFORMATION: Dysphagia. COMPARISON: Thyroid ultrasound from 02/12/2017. TECHNIQUE: Multidetector helical imaging was performed in the axial plane without intravenous contrast. Multiple axial reformats and coronal/sagittal reconstructions were created the technologist workstation for review. This CT examination was performed using dose optimization techniques as appropriate, variously including the following: *Automated exposure control. *Adjustment of mA and/or kV according to patient size (this includes techniques or standardized protocols for targeted exams where dose is matched to indication/reason for exam; i.e. extremities or head). *Use of iterative reconstruction technique. DLP: 393 mGy-cm FINDINGS: No significant cutaneous thickening or subcutaneous inflammation. No discrete fluid collection within the deep tissues of the neck. The premaxillary, retromaxillary, pterygopalatine fossa, orbital apical, parapharyngeal, and prelaryngeal adipose tissue is maintained. Normal appearance of the parotid and submandibular glands. Heterogeneity of the thyroid gland with multiple mixed attenuating thyroid nodules, measuring up to 1.5 cm in the lower pole the left thyroid lobe. Scattered subcentimeter lymph nodes bilaterally, none of which are pathologically enlarged. No demonstrated focal lesion within the intrinsic tissues of the tongue or floor of mouth. No demonstrated focal lesion within the inferior Normal mucosal contours of the pharynx and larynx. Normal appearance of the hyoid bone, thyroid cartilage, or cartilaginous trachea. The airways remains widely patent. No radiopaque foreign bodies. The atlantooccipital and atlantoaxial articulations remain well aligned. Straightening of the normal cervical lordosis. Mild degenerative anterolisthesis of C7 on T1. No evidence of acute fracture or subluxation of the cervical spine. The vertebral body heights are maintained. Advanced degenerative disc disease from C4-C7. Moderate degenerative disc disease at C3-C4. Facet and uncovertebral joint arthropathy leads to osseous encroachment on the neural foramina from C3-C7. There is no prevertebral soft tissue swelling. The visualized portion of the skull base is without significant abnormalities. The visualized paranasal sinuses are clear. The mastoid air cells and middle ear cavities are clear. No demonstrated significant periapical odontogenic disease. CT Upper Chest: The visualized lung apices and upper mediastinum are within normal limits. CT/CT soft tissue neck wo IV con IMPRESSION: 1. No demonstrated focal lesion, collection, or lymphadenopathy within the soft tissues of the neck. 2. Heterogeneous thyroid gland with multiple mixed attenuating thyroid nodules, measuring up to 1.5 cm in the lower pole the left thyroid lobe. Recommend further characterization with thyroid ultrasound. 3. Moderate multilevel degenerative spondyloarthropathy of the cervical spine.
[2023-06-19 06:34] VITALS: BP 169/88; PULSE 112; RESP 18; TEMP 36.8; O2SAT 97; BMI 22.3
--- NOTE | 2023-06-19 06:45 | ECG_ITS ---
Test Reason : CP Blood Pressure : / mmHG Vent. Rate : 088 BPM Atrial Rate : 088 BPM P-R Int : 142 ms QRS Dur : 080 ms QT Int : 370 ms P-R-T Axes : 084 024 010 degrees QTc Int : 447 ms Normal sinus rhythm Inferior ST-T changes Abnormal ECG When compared with ECG of 14-APR-2023 07:26, No significant changes seen Referred By: Kassie Knight Electronically Signed By:Bart Machado
--- NOTE | 2023-06-19 06:51 | ED.GENADULT ---
HPI - General Adult General Chief complaint: General Medical Stated complaint: hard time swallowing Time Seen by Provider: 06/19/23 06:34 Source: patient and RN notes reviewed Mode of arrival: ambulatory Limitations: no limitations History of Present Illness HPI narrative: This is a 83-year-old female, with a history of hyperlipidemia, GERD, and hypertension, presenting to the emergency department for evaluation of difficulty swallowing since . Patient states that since the beginning of May she has had a significant amount of acid reflux. She states that since she has felt as though something has been stuck in her esophagus. She states that she is still able to get some foods and drinks down however she often times has to belch or cough to get it down. She has called her primary care physician and was referred to GI but is unable to see them until August. MD complaint: Difficulty swallowing Onset (ago): day(s) Radiation: non-radiation Relieving factors: none Exacerbating factors: none Associated symptoms: denies other symptoms Treatments prior to arrival: none Related Data Home Medications Medication Instructions Recorded Confirmed lisinopril 5 mg tablet 5 mg PO DAILY 02/07/21 04/14/23 rosuvastatin 40 mg tablet 40 mg PO DAILY 02/07/21 04/14/23 Previous Rx's Medication Instructions Recorded sucralfate 100 mg/mL oral 1 g (10 mL) PO TID #400 mL 06/19/23 suspension (Carafate) Allergies Allergy/AdvReac Type Severity Reaction Status Date / Time cephalexin [From KEFLEX] Allergy Severe RASH Unverified 04/14/23 07:11 Sulfa (Sulfonamide Allergy Severe INTSERNAL Verified 04/14/23 07:11 Antibiotics) AND [SULFA (SULFONAMIDE EXTERNAL ANTIBIOTICS)] RASH/INFECTION Iodinated Contrast Media Allergy Intermediate HIVES,REDNESS Verified 04/14/23 07:11 [IV Dye, Iodine Containing] + SWELLING sulfamethoxazole Allergy Intermediate INTERNAL Verified 04/14/23 07:11 [From BACTRIM] AND EXTERNAL RASH/ INFECTION Review of Systems Review of Systems: Yes all other systems are reviewed and are negative Constitutional: Constitutional: Reports as per [facility] Social History Social History Alcohol intake: never Patient Tobacco Use Status: Never used Tobacco Smoked in Last 30 Days: No Use of substances other than those prescribed or required for medical reasons: No Advance Directives: No Advance Directives Information Provided: No Physical Exam ED Vital Signs: Vital Signs - 24 hr 06/19/23 06:34 06/19/23 08:46 06/19/23 11:53 Temperature 98.3 F Pulse Rate 112 H 88 85 Respiratory Rate 18 18 16 Blood Pressure 169/88 H 157/62 H 152/77 H Pulse Oximetry 97 99 100 Oxygen Delivery Method Room Air Room Air Room Air BMI result Body Mass Index 22.3 Const General: cooperative, comfortable and no acute distress Orientation/consciousness: patient oriented x3 Limitations: no limitations HENMT Head: Yes normal to inspection, Yes normocephalic and Yes atraumatic Ears: hearing grossly normal bilaterally General nose exam: Normal external nose present Face and sinus: Yes normal facial exam Mouth: Normal oral and palatal mucosa present, oropharynx normal and moist mucous membranes Throat: Yes posterior oropharynx normal Eyes General: appearance normal, both eyes and all related structures Eyelids: Yes eyelids normal Conjunctivae: conjunctivae normal Sclerae: sclerae normal Pupils: Equal, round and reactive pupils present EOM: EOMs intact bilaterally Neck Neck: Yes normal visual inspection, Yes full ROM and Yes no lymphadenopathy Lymphatic: no lymphadenopathy noted Chest Chest palpation & inspection: normal inspection of the chest Resp Effort & Inspection: normal respiratory effort and able to speak in complete sentences Auscultation: clear to auscultation bilaterally, no crackles, no rales, no rhonchi and no wheezes Cardio Rate: regular rate Rhythm: regular rhythm Heart sounds: S1 normal heart sound present and S2 normal heart sound present GI Inspection: Yes normal to inspection Skin General skin exam: no rashes or lesions noted Trauma: no lacerations or abrasions Wounds: no wounds Neuro General: patient oriented x3 and moves all extremities Cranial nerves: Yes Equal, round and reactive pupils present Extrem General: Yes normal to inspection Right upper extremity: normal to inspection Left upper extremity: normal to inspection Right lower extremity: normal to inspection Left lower extremity: normal to inspection Course Reevaluation(s) Reevaluation #1: She is eating and drinking without difficulty. CT soft tissue neck revealing thyroid nodules, no other evidence for any obstruction or mass. Discussed finding with patient, TSH within normal limits. Second troponin negative. Advised patient to follow-up with her primary care physician and GI specialist. Advised that she needs a swallow test/upper GI study. Given return precautions. She was discharged on Carafate. Requesting hypertensive medication in department for her to her departure. Patient stable for discharge. Time: 13:06 Medications Administered Discontinued Medications Generic Name Dose Route Start Last Admin Trade Name Liza PRN Reason Stop Dose Admin Sucralfate 1 gm 06/19/23 06:49 06/19/23 07:35 Sucralfate Oral Suspension 1 Gm/10 Ml Oral.Susp PO 06/19/23 06:50 1 gm ONCE ONE Administration Medical Decision Making Medical Decision Making [facility] Narrative: This is a 83-year-old female, with a history of hypertension and hyperlipidemia, presenting to the emergency department for evaluation of difficulty swallowing since . On arrival, the pressure mildly elevated at 160 9/88, pulse 112 She has been able to eat and drink however occasionally feels as though something might be stuck. She has a history of acid reflux, she takes omeprazole at home however does not find that this is helpful. She denies any chest pain or shortness a breath. Endorses some occasional nausea. She is speaking in full sentences, under no acute distress. Discussed with patient that we do not have barium swallow studies on the weekend, will obtain CT neck to rule out any obstructive process. Plan: Labs, EKG, Carafate 1 g by mouth, CT neck Differential Diagnosis Differential Diagnoses: The differential diagnosis associated with the presentation includes Esophageal mass stricture, dysphagia, bullous sensation Admission/Observation Consideration of admission/observation: Escalation of care including admission/observation considered Lab Data [facility] Lab Attestation statement: I reviewed the patient's lab results. Slight leukopenia, appears to be at around her baseline, stable H&H, chemistry within normal limits. Troponin x2 negative, TSH within normal limits 06/19/23 07:13 06/19/23 07:13 Labs: Lab Results 06/19/23 06/19/23 Range/Units 07:13 12:01 WBC 3.2 L (4.8-10.8) X10*3/uL RBC 5.07 (4.20-5.50) X10*6/uL Hgb 15.6 (12.0-16.0) g/dl Hct 46.6 (37.0-47.0) % MCV 91.9 (80.0-98.0) fL MCH 30.8 (27.0-33.0) pg MCHC 33.5 (31.0-35.0) g/dl RDW 13.3 (11.0-16.0) % Plt Count 148 L (160-400) X10*3/uL MPV 9.8 (9.4-12.3) fL Immature Gran % (Auto) 0.3 (0.0-0.4) % Neut % (Auto) 65.2 (45-73) % Lymph % (Auto) 20.2 (20-40) % [place] % (Auto) 11.5 H (2-11) % Eos % (Auto) 1.9 (0-4) % Baso % (Auto) 0.9 (0-2) % Lymph # (Auto) 0.7 L (1.2-4.9) X10*3/uL [place] # (Auto) 0.4 (0.1-1.2) X10*3/uL Eos # (Auto) 0.1 (0.0-0.4) X10*3/uL Baso # (Auto) 0.0 (0.0-0.2) X10*3/uL Abs Immat Gran (auto) 0.01 (0.00-0.03) X10*3/uL Absolute Neuts (auto) 2.1 (2.0-8.3) x10*3/uL Absolute Nucleated RBC 0.000 (0.0-0.012) X10*3/uL Nucleated RBC % (auto) 0.0 (0.0-0.2) /100WBC Sodium 141 (135-145) mmol/L Potassium 4.1 (3.3-5.1) mmol/L Chloride 104 (96-108) mmol/L Carbon Dioxide 28 (22-29) mmol/L Anion Gap 13 (12-20) BUN 19 H (9-16) mg/dL Creatinine 0.69 (0.5-1.4) mg/dL Estim Creat Clear Calc 61.2 Estimated GFR > 60 Random Glucose 99 (60-115) mg/dL Calcium 10.0 (8.4-10.2) mg/dL Magnesium 1.9 (1.6-2.6) mg/dL Total Bilirubin 0.6 (0.0-1.0) mg/dL Direct Bilirubin 0.3 (0.0-0.5) mg/dL AST 26 (5-31) U/L ALT 26 (0-31) U/L Alkaline Phosphatase 67 (39-117) U/L Troponin I High Sens 4.7 5.4 (<3.5-17.0) ng/L Total Protein 6.9 (6.5-8.0) g/dL Albumin 4.3 (3.5-5.0) g/dL TSH 0.53 (0.32-4.0) uIU/mL Independent Interpretation I performed an independent interpretation of an: EKG Interpretation: EKG normal sinus rhythm at a ventricular rate of 88 beats per minute, QTC 447, similar appearing EKG from April 14, 2023. Radiology Impression Discussion of test interpretation with radiology: I have reviewed the radiologist's reading. Radiologist Impression: EXAMINATION: CT SOFT TISSUE NECK WITHOUT CONTRAST CLINICAL INFORMATION: Dysphagia. COMPARISON: Thyroid ultrasound from 02/12/2017. TECHNIQUE: Multidetector helical imaging was performed in the axial plane without intravenous contrast. Multiple axial reformats and coronal/sagittal reconstructions were created the technologist workstation for review. This CT examination was performed using dose optimization techniques as appropriate, variously including the following: *Automated exposure control. *Adjustment of mA and/or kV according to patient size (this includes techniques or standardized protocols for targeted exams where dose is matched to indication/reason for exam; i.e. extremities or head). *Use of iterative reconstruction technique. DLP: 393 mGy-cm FINDINGS: No significant cutaneous thickening or subcutaneous inflammation. No discrete fluid collection within the deep tissues of the neck. The premaxillary, retromaxillary, pterygopalatine fossa, orbital apical, parapharyngeal, and prelaryngeal adipose tissue is maintained. Normal appearance of the parotid and submandibular glands. Heterogeneity of the thyroid gland with multiple mixed attenuating thyroid nodules, measuring up to 1.5 cm in the lower pole the left thyroid lobe. Scattered subcentimeter lymph nodes bilaterally, none of which are pathologically enlarged. No demonstrated focal lesion within the intrinsic tissues of the tongue or floor of mouth. No demonstrated focal lesion within the inferior Normal mucosal contours of the pharynx and larynx. Normal appearance of the hyoid bone, thyroid cartilage, or cartilaginous trachea. The airways remains widely patent. No radiopaque foreign bodies. The atlantooccipital and atlantoaxial articulations remain well aligned. Straightening of the normal cervical lordosis. Mild degenerative anterolisthesis of C7 on T1. No evidence of acute fracture or subluxation of the cervical spine. The vertebral body heights are maintained. Advanced degenerative disc disease from C4-C7. Moderate degenerative disc disease at C3-C4. Facet and uncovertebral joint arthropathy leads to osseous encroachment on the neural foramina from C3-C7. There is no prevertebral soft tissue swelling. The visualized portion of the skull base is without significant abnormalities. The visualized paranasal sinuses are clear. The mastoid air cells and middle ear cavities are clear. No demonstrated significant periapical odontogenic disease. CT Upper Chest: The visualized lung apices and upper mediastinum are within normal limits. CT/CT soft tissue neck wo IV con IMPRESSION: 1. No demonstrated focal lesion, collection, or lymphadenopathy within the soft tissues of the neck. 2. Heterogeneous thyroid gland with multiple mixed attenuating thyroid nodules, measuring up to 1.5 cm in the lower pole the left thyroid lobe. Recommend further characterization with thyroid ultrasound. 3. Moderate multilevel degenerative spondyloarthropathy of the cervical spine. Dictated By: Calos Townsend DO Signed By: <Electronically signed by Scores Heart Score History: -0- slightly suspicious ECG: -0- normal Age: -2- > or = 65 Risk factory: -1- 1 or 2 risk factors Troponin: -0- < or = normal limit Score: 3 Risk: 1.7% Discharge Plan Discharge Clinical Impression: Dysphagia, Thyroid nodule Patient Disposition: Home, Self-Care Instructions: Soft Diet (ED), Thyroid Nodules (ED), Dysphagia (ED) Additional Instructions: You were seen in the emergency department due to difficulty swallowing.' Your CT scan shows thyroid nodules, please follow-up with your primary care to ordering thyroid ultrasound for further evaluation. Your blood work was reassuring. Your EKG was similar to your EKG in the past. Your thyroid test was normal. Stick to a soft diet. Continue taking omeprazole and all other medications. Follow-up with your primary care physician as well as GI specialist. Advised you to call the GI specialist on Wednesday or Wednesday to see if they can see you sooner. If any new or worsening symptoms occur including but not limited to chest pain, shortness of breath inability to swallow, please return for re-evaluation. Prescriptions: New sucralfate [Carafate] 100 mg/mL suspension 1 g PO TID Qty: 400 0RF No Action rosuvastatin 40 mg tablet 40 mg PO DAILY lisinopril 5 mg tablet 5 mg PO DAILY
[2023-06-19 07:17] LABS: MANUAL DIFF FLAG NO
[2023-06-19 07:21] LABS: Basophils Percent Auto 0.9 % (0-2); Eosinophils Absolute Auto 0.1 X10*3/uL (0.0-0.4); Eosinophils Percent Auto 1.9 % (0-4); Hematocrit 46.6 % (37.0-47.0); Hemoglobin 15.6 g/dl (12.0-16.0); Imm Gran Abs Auto 0.01 X10*3/uL (0.00-0.03); Imm Gran Pct Auto 0.3 % (0.0-0.4); Lymphocytes Absolute Auto 0.7 X10*3/uL (1.2-4.9); Lymphocytes Percent Auto 20.2 % (20-40); Mean Corpuscular HGB Conc 33.5 g/dl (31.0-35.0); Mean Corpuscular Hemoglobin 30.8 pg (27.0-33.0); Mean Corpuscular Volume 91.9 fL (80.0-98.0); Mean Platelet Volume 9.8 fL (9.4-12.3); Monocytes Absolute Auto 0.4 X10*3/uL (0.1-1.2); Monocytes Percent Auto 11.5 % (2-11); Neutrophils Absolute Auto 2.1 x10*3/uL (2.0-8.3); Neutrophils Percent Auto 65.2 % (45-73); Platelet Count 148 X10*3/uL (160-400); Red Blood Count 5.07 X10*6/uL (4.20-5.50); Red Cell Distribution Width 13.3 % (11.0-16.0); White Blood Count 3.2 X10*3/uL (4.8-10.8)
[2023-06-19] MEDS: Sucralfate Oral Suspension 1 GM/10 ML ORAL.SUSP PO (07:35)
[2023-06-19 07:46] LABS: Alanine Aminotransferase 26 U/L (0-31); Albumin Level 4.3 g/dL (3.5-5.0); Alkaline Phosphatase 67 U/L (39-117); Anion Gap 13 (12-20); Aspartate Amino Transferase 26 U/L (5-31); Bilirubin Direct 0.3 mg/dL (0.0-0.5); Bilirubin Total 0.6 mg/dL (0.0-1.0); Blood Urea Nitrogen 19 mg/dL (9-16); Carbon Dioxide 28 mmol/L (22-29); Chloride 104 mmol/L (96-108); Creatinine Clr Calc Pharmacy 61.2; Estimated Glomerular Filt Rate > 60; Glucose Random 99 mg/dL (60-115); Magnesium 1.9 mg/dL (1.6-2.6); Potassium 4.1 mmol/L (3.3-5.1); Sodium 141 mmol/L (135-145); Total Protein 6.9 g/dL (6.5-8.0)
[2023-06-19 07:53] LABS: Troponin-I High Sensitivity 4.7 ng/L (<3.5-17.0)
[2023-06-19 08:46] VITALS: BP 157/62; PULSE 88; RESP 18; O2SAT 99
[2023-06-19 11:53] VITALS: BP 152/77; PULSE 85; RESP 16; O2SAT 100
[2023-06-19 12:28] LABS: Troponin-I High Sensitivity 5.4 ng/L (<3.5-17.0)
[2023-06-19 12:31] LABS: Thyroid Stimulating Hormone 0.53 uIU/mL (0.32-4.0)
[2023-06-19] MEDS: lisinopriL 5 MG TABLET PO (13:14)
== END 2023-06-19 13:17 | disposition home or self-care (01) ==
PROVIDERS: Physician Assistant Medical; Emergency Provider Internal Medicine; PCP Internal Medicine
DX: R13.10 Dysphagia, unspecified (principal); E04.1 Nontoxic single thyroid nodule; Z79.02 Long term (current) use of antithrombotics/antiplatelets; Z79.899 Other long term (current) drug therapy
CPT/HCPCS: 36415; 70490; 80048; 80076; 83735; 84443; 84484; 85025; 93005; 99284

== ENCOUNTER → 2023-06-19 06:45 | Outpatient (BNV) | payer MEDICARE, OTHER, SELFPAY | PROVIDERS: Emergency Provider Internal Medicine; PCP Internal Medicine; Visit Provider Internal Medicine Cardiovascular Disease | DX: R94.31 Abnormal electrocardiogram [ECG] [EKG] (principal); R07.9 Chest pain, unspecified | CPT/HCPCS: 93010 ==

== ENCOUNTER 2023-06-22 06:38 | Emergency (ER) | payer MEDICARE, OTHER, SELFPAY ==
[2023-06-22 06:43] VITALS: BP 145/86; PULSE 94; RESP 14; TEMP 36.2; O2SAT 99; BMI 21.7
--- NOTE | 2023-06-22 07:39 | ED.GENADULT ---
HPI - General Adult General Chief complaint: General Medical Stated complaint: Diff Swallowing Time Seen by Provider: 06/22/23 07:25 Source: patient Mode of arrival: ambulatory Limitations: no limitations History of Present Illness HPI narrative: Patient was seen 3 days ago for what was described as difficulty swallowing but really is reflux. Patient most recently has had multiple visits to the ED. Last night she states that she had difficulty sleeping because of nausea, belching and reflux. She describes an up and coming visit with GI in 2 weeks Onset (ago): month(s) Severity: moderate Related Data Home Medications Medication Instructions Recorded Confirmed lisinopril 5 mg tablet 5 mg PO DAILY 02/07/21 04/14/23 rosuvastatin 40 mg tablet 40 mg PO DAILY 02/07/21 04/14/23 Previous Rx's Medication Instructions Recorded aluminum-mag hydroxide-simethicone 5 ml PO Q6H PRN indigestion #3,000 06/19/23 400 mg-400 mg-40 mg/5 mL oral susp mL (Maalox Maximum Strength) sucralfate 100 mg/mL oral 1 g (10 mL) PO TID #400 mL 06/19/23 suspension (Carafate) Allergies Allergy/AdvReac Type Severity Reaction Status Date / Time cephalexin [From KEFLEX] Allergy Severe RASH Verified 06/22/23 06:47 Sulfa (Sulfonamide Allergy Severe INTSERNAL Verified 06/22/23 06:47 Antibiotics) AND [SULFA (SULFONAMIDE EXTERNAL ANTIBIOTICS)] RASH/INFECTION Iodinated Contrast Media Allergy Intermediate HIVES,REDNESS Verified 06/22/23 06:47 [IV Dye, Iodine Containing] + SWELLING sulfamethoxazole Allergy Intermediate INTERNAL Verified 06/22/23 06:47 [From BACTRIM] AND EXTERNAL RASH/ INFECTION Review of Systems Review of Systems: Yes all other systems are reviewed and are negative Neurologic: Denies Sensory deficit (Neuro) [facility] Social History Social History Alcohol intake: never Patient Tobacco Use Status: Never used Tobacco Advance Directives: No Advance Directives Information Provided: No Physical Exam ED Vital Signs: Vital Signs - 24 hr 06/22/23 06:43 Temperature 97.1 F Pulse Rate 94 Respiratory Rate 14 Blood Pressure 145/86 H Pulse Oximetry 99 Oxygen Delivery Method Room Air BMI result Body Mass Index 21.7 Const Other: Thin anxious female in no acute distress General: healthy appearing Nutritional Appearance: thin Orientation/consciousness: oriented to person and patient oriented x3 Limitations: no limitations HENMT Head: Yes normal to inspection Ears: external ears normal General nose exam: Normal external nose present Mouth: Normal oral and palatal mucosa present and oropharynx normal Throat: Yes posterior oropharynx normal Eyes General: appearance normal, both eyes and all related structures Neck Neck: Yes normal visual inspection Chest Chest palpation & inspection: normal inspection of the chest Resp Auscultation: clear to auscultation bilaterally Cardio Jugular venous distension: no JVD Rate: regular rate Rhythm: regular rhythm Heart sounds: S1 normal heart sound present and S2 normal heart sound present GI Inspection: Yes normal to inspection Palpation (GI): Soft to palpation, nontender and No hepatosplenomegaly present Auscultation: normal bowel sounds General: Yes no CVA tenderness Back/Spine/Pelvis Back: no CVA tenderness Skin General skin exam: no rashes or lesions noted Neuro General: oriented to person and patient oriented x3 Cranial nerves: Yes CN's II-XII intact bilaterally Motor exam (neuro): 5/5 motor strength present throughout Sensory Exam: No Sensory deficit (Neuro) Extrem General: Yes normal to inspection Psych Appearance: grossly normal Course Reevaluation(s) Reevaluation #1: reviewed recent labs and CT of neck and upper chest. Will encourage patient to take her carafate 3 times a day Time: 08:27 Medical Decision Making Differential Diagnosis Differential Diagnoses: The differential diagnosis associated with the presentation includes (reflux, gastritis, esophageal mass, peptic ulcer disease) Admission/Observation Consideration of admission/observation: Escalation of care including admission/observation considered (upon arrival patient considered for admission) External Record Review External record reviewed: Outpatient record, Prior outpatient labs and Prior outpatient radiology Tests considered The following testing was considered but not selected: Considered CT of abdomen but patient needs upper endoscopy Chronic Conditions Patient?s care impacted by: Other (GERD) Discharge Plan Discharge Clinical Impression: Epigastric pain, Chronic GERD Instructions: Gastroesophageal Reflux Disease (ED) Prescriptions: No Action sucralfate [Carafate] 100 mg/mL suspension 1 g PO TID Qty: 400 0RF alum-mag hydroxide-simeth [Maalox Maximum Strength] 400-400-40 mg/5 mL suspension 5 ml PO Q6H PRN (Reason: indigestion) Qty: 3000 0RF rosuvastatin 40 mg tablet 40 mg PO DAILY lisinopril 5 mg tablet 5 mg PO DAILY Referrals: Alton Durham MD [Primary Care Provider] - 3 days Cedric Davidson MD [Physician] - 5 days
[2023-06-22] MEDS: Sucralfate Oral Suspension 1 GM/10 ML ORAL.SUSP PO (09:10)
--- NOTE | 2023-06-22 09:16 | PC.NURSE ---
pt medicated and discharged
== END 2023-06-22 09:16 | disposition home or self-care (01) ==
PROVIDERS: Emergency Provider Emergency Medicine; PCP Internal Medicine
DX: K21.9 Gastro-esophageal reflux disease without esophagitis (principal); R10.13 Epigastric pain
CPT/HCPCS: 99282; 99283

== ENCOUNTER 2023-06-28 07:45 | Outpatient (REF) | payer MEDICARE, OTHER, SELFPAY ==
--- NOTE | ~2023-06-28 | US_ITS ---
EXAMINATION: US RETROPERITONEAL LIMITED (RENAL ONLY) CLINICAL INFORMATION: Calculus of kidney. COMPARISON: CT abdomen and pelvis 01/20/2023. Renal ultrasound 06/23/2022 and 07/01/2021. X-ray abdomen 12/21/2018 and 10/05/2018. TECHNIQUE: Real-time imaging of the kidneys. Limited visualization due to bowel gas. FINDINGS: RIGHT KIDNEY: 11 x 4.2 x 5.3 cm (SAG x AP x TRV). No hydronephrosis. A 0.9 cm midpole calculus. Renal cortical thickness is normal. Limited visualization. LEFT KIDNEY: 11.8 x 3.9 x 4.4 cm (SAG x AP x TRV). No hydronephrosis. No renal calculi. Renal cortical thickness is normal. Limited visualization. Lower pole 0.7 x 0.5 x 0.5 cm cyst. There is no indication for follow-up imaging. US/US renal BI IMPRESSION: Right renal 0.9 cm midpole calculus. No hydronephrosis.
== END 2023-06-28 07:46 | disposition home or self-care (01) ==
LOC: HO.US 07:45
PROVIDERS: PCP Internal Medicine; Visit Provider Urology
DX: N20.0 Calculus of kidney (principal)
CPT/HCPCS: 76775

== ENCOUNTER 2023-07-06 11:20 | Outpatient (REF) | payer MEDICARE, OTHER, SELFPAY ==
[2023-07-07 11:57] LABS: Folate > 20.0 ng/mL (> or = 4.0); Vitamin B12 956 pg/mL (200-900)
[2023-07-07 14:18] LABS: Transglutaminase Ab IgG <1.0 U/mL; Transglutaminase IgA <1.0 U/mL
[2023-07-10 14:34] LABS: Vitamin D 25-OH, D2 <4 ng/mL; Vitamin D 25-OH, D3 39 ng/mL; Vitamin D 25-OH, Total 39 ng/mL (30-100)
== END 2023-07-06 11:21 | disposition home or self-care (01) ==
LOC: HO.LAB 11:20
PROVIDERS: Visit Provider Nurse Practitioner Family
DX: R10.13 Epigastric pain (principal); R10.9 Unspecified abdominal pain; K21.9 Gastro-esophageal reflux disease without esophagitis; R13.14 Dysphagia, pharyngoesophageal phase; K59.01 Slow transit constipation; E55.9 Vitamin D deficiency, unspecified; R19.7 Diarrhea, unspecified; N20.0 Calculus of kidney
CPT/HCPCS: 36415; 82306; 82607; 82746; 86364; 99202; 99212

== ENCOUNTER 2023-07-06 11:20 | Outpatient (AMB) | payer MEDICARE, OTHER, SELFPAY ==
--- NOTE | 2023-07-06 11:47 | A.OFFVIS_ITS ---
Intake Intake Visit Reasons: 1Y US(set) to confirm Intake Note: Patient is present for Ultrasound follow up Allergies cephalexin [From KEFLEX] Allergy (Severe, Verified 06/22/23 06:47) RASH Sulfa (Sulfonamide Antibiotics) [SULFA (SULFONAMIDE ANTIBIOTICS)] Allergy (Severe, Verified 06/22/23 06:47) INTSERNAL AND EXTERNAL RASH/INFECTION Iodinated Contrast Media [IV Dye, Iodine Containing] Allergy (Intermediate, Verified 06/22/23 06:47) HIVES,REDNESS + SWELLING sulfamethoxazole [From BACTRIM] Allergy (Intermediate, Verified 06/22/23 06:47) INTERNAL AND EXTERNAL RASH/ INFECTION Medication List - Last Reconciled 07/06/23 by Som Mckeon MD alum-mag hydroxide-simeth 400-400-40 mg/5 mL (Maalox Maximum Strength) 5 mL PO Q6H PRN lisinopril 5 mg PO DAILY pyridoxine (vitamin B6) 50 mg PO DAILY 90 days rosuvastatin 40 mg PO DAILY sucralfate (Carafate) 1 g (10 mL) PO TID HPI HPI Comments History of Present Illness Details Maureen is a pleasant female. She is a patient Dr. Durham. She seen for the following urologic conditions - nephrolithiasis - renal cyst Discussed imaging results Plan for KUB in 6 months Add vitamin B6 Nephrolithiasis Longstanding small stone on left side Left renal cyst 1 cm Responded well to lemon therapy Takes 1 glass of lemonade per day Imaging - 06/23 renal ultrasound 2 mm on left, renal cyst 1 cm - 06/24 renal ultrasound left renal cyst 1 cm, 2 mm stone bilateral - 06/25 renal ultrasound left 6 mm, right 2 mm - 06/26 renal ultrasound right 9 mm, left 0 Follow in 6 months [facility] Social History Alcohol intake: never Patient Tobacco Use Status: Never used Tobacco Review of Systems Const Denies chills and Denies fever(s) Card Reports no additional complaints and Denies syncope Resp Denies cough GI Denies abdominal pain and Denies heartburn Reports as per HPI and Denies change in libido Neuro Denies syncope Psych Denies change in libido Endo Denies change in libido Physical Exam Const General: cooperative, healthy appearing, comfortable and no acute distress Orientation/consciousness: patient oriented x3 HEENT Face and sinus: Yes normal facial exam Mouth: moist mucous membranes Neck Neck: Yes normal visual inspection, Yes full ROM and Yes trachea midline Chest Chest palpation & inspection: normal inspection of the chest Resp Effort & Inspection: normal respiratory effort, able to speak in complete sentences and no respiratory distress GI Inspection: Yes normal to inspection Back/Spine/Pelvis Cervical Spine: normal cervical lordosis Thoracic/Lumbar Spine: thoracic and lumbar spine normal to inspection Skin General skin exam: no rashes or lesions noted Neuro General: patient oriented x3, gait normal, tone normal and moves all extremities Extrem General: Yes normal to inspection and Yes capillary refill normal Assessment & Plan Assessment & Plan (1) Nephrolithiasis: Code(s): N20.0 - Calculus of kidney Plan Six-month follow-up KUB Orders: Orders XR KUB 6 Months N20.0 - Calculus of kidney Medications: New pyridoxine (vitamin B6) 50 mg PO DAILY 90 tabs 1RF 90 days N20.0 - Calculus of kidney Patient Instructions: Imaging studies, laboratory and physical exam results were discussed and reviewed in detail. No major barriers to patient understanding were identified. An opportunity to ask questions regarding the treatment plan was provided. All questions were answered. The patient expressed understanding and agreement with the above treatment plan. The patient is aware they should contact our office by phone for worsening of their current condition or the appearance of new urologic symptoms. Compliance is encouraged with any medications and followup testing that is ordered. It is a privilege to participate in the urologic care of your patient. If you have any questions or concerns regarding treatment for the above conditions, or other urologic issues, please do not hesitate to contact me. The office telephone contact is [phone]. This note is constructed using voice recognition software. While every effort has been made to ensure accuracy oncology rep specialist errors may have been included. Yours sincerely, Dr Som Mckeon MD, [facility] - Urology Providers of Expert, Compassionate Care for the Genitourinary System Coding Level of Care Code Est Pt Level 4 (68911) Diagnoses Nephrolithiasis N20.0
== END 2023-07-06 12:21 | disposition home or self-care (01) ==
PROVIDERS: PCP Internal Medicine; Visit Provider Urology
DX: N20.0 Calculus of kidney (principal)
CPT/HCPCS: 99213

== ENCOUNTER 2023-07-06 13:49 | Outpatient (AMB) | payer MEDICARE, OTHER, SELFPAY ==
--- NOTE | 2023-07-06 13:55 | A.OFFVIS_ITS ---
Intake Vital Signs 07/06/23 13:56 Height 5 ft 8 in Weight 141 lb BMI 21.4 BP 158/68 H Blood Pressure Location Lt brachial Position Sitting Pulse 75 Intake Visit Reasons: reflux gastritis Intake Note: Maureen presents in the office as a new patient for reflux gastritis. CC: She states that today is not the best day. She states that she is burping and she is hungry but not able to eat alot - her food will come back up at times. She was in the ER 06/19 and that is when she started the soft diet and carafate. [employer] Required: No Allergies cephalexin [From KEFLEX] Allergy (Severe, Verified 07/06/23 13:56) RASH Sulfa (Sulfonamide Antibiotics) [SULFA (SULFONAMIDE ANTIBIOTICS)] Allergy (Severe, Verified 07/06/23 13:56) INTSERNAL AND EXTERNAL RASH/INFECTION Iodinated Contrast Media [IV Dye, Iodine Containing] Allergy (Intermediate, Verified 07/06/23 13:56) HIVES,REDNESS + SWELLING sulfamethoxazole [From BACTRIM] Allergy (Intermediate, Verified 07/06/23 13:56) INTERNAL AND EXTERNAL RASH/ INFECTION stent Allergy (Uncoded 07/09/23 14:14) Vomiting HPI reflux gastritis HPI Details 83-year-old female with past medical his tory of epigastric pain, hypertension, hypercholesteremia is here for initial consultation. Patient was seen last month in the ER for epigastric pain, difficulty swallowing and nausea. Patient was seen in the ER twice in the last couple months. Her symptoms started in May. Patient reports that she started with significant acid reflux and then having trouble swallowing food. Patient reports dyspepsia with dysphagia without odynophagia. Patient denies any choking episodes. Reports epigastric pain postprandially as well as burning. Patient also admits to having constipation. When patient has bowel movement she does not feel like she empties completely. Patient denies any abdominal pain or discomfort except for when she is unable to use the bathroom. Patient denies melena, hematochezia, unintentional weight loss or ribbon like stools. PENDING SALE TO [facility] Social History Alcohol intake: never Patient Tobacco Use Status: Never used Tobacco Use of substances other than those prescribed or required for medical reasons: No Are you DNR?: No Advance Directives: No Advance Directives Information Provided: Yes Review of Systems Const Denies weight gain and Denies weight loss ENT Reports no additional complaints, Reports dysphagia and Denies odynophagia Card Reports no additional complaints Resp Reports no additional complaints GI Denies abdominal pain, Denies belching, Denies melena, Denies bloating, Reports constipation, Reports dysphagia, Denies excessive flatus, Denies dyspepsia, Reports heartburn, Denies diarrhea, Denies loose stools, Denies nausea, Denies odynophagia and Denies vomiting Reports no additional complaints Musc Reports no additional complaints Neuro Reports no additional complaints Psych Reports no additional complaints Endo Reports no additional complaints Physical Exam Vital Signs: Last Vital Signs Pulse 75 07/06/23 13:56 BP 158/68 H 07/06/23 13:56 BMI result Body Mass Index 21.4 Const General: healthy appearing, no acute distress and well developed Nutritional Appearance: well nourished Orientation/consciousness: patient oriented x3 Resp Effort & Inspection: normal respiratory effort, able to speak in complete sentences, no tracheal deviation and symmetric chest movement Auscultation: clear to auscultation bilaterally Cardio Rate: regular rate GI Inspection: Yes normal to inspection and No distended Palpation (GI): Soft to palpation, not firm, nontender and No hepatosplenomegaly present Auscultation: normal bowel sounds General: Yes no CVA tenderness Back/Spine/Pelvis Back: no CVA tenderness Skin General skin exam: elasticity normal, turgor normal and dry skin Neuro General: patient oriented x3 Psych Appearance: grossly normal Mental Status: mental status grossly normal Assessment & Plan Assessment & Plan (1) Postprandial epigastric pain: Code(s): R10.13 - Epigastric pain (2) GERD (gastroesophageal reflux disease): Code(s): K21.9 - Gastro-esophageal reflux disease without esophagitis Qualifiers: Esophagitis presence: esophagitis presence not specified Qualified Code(s): K21.9 - Gastro-esophageal reflux disease without esophagitis (3) Dysphagia: Code(s): R13.10 - Dysphagia, unspecified Qualifiers: Dysphagia type: pharyngoesophageal phase Qualified Code(s): R13.14 - Dysphagia, pharyngoesophageal phase (4) Dyspepsia: Code(s): R10.13 - Epigastric pain (5) Constipation: Code(s): K59.00 - Constipation, unspecified Qualifiers: Constipation type: slow transit constipation Qualified Code(s): K59.01 - Slow transit constipation Plan Will start patient on pantoprazole daily. Patient was taking omeprazole on as needed basis and reports that was not helpful. Patient can take sucralfate at noon and at bedtime. Patient reports that sucralfate works. Would like to get script for tablets as she has to pay [id number] for suspension. Patient also reports to be constipated. Will start her on Senokot. Patient was encouraged to increase fluid intake and activity to promote better bowel motility. Discussed with patient avoiding dietary triggers and late night snacking. Staying upright for minimal 3 hours after meals discussed patient. Eating small bites, chew well and drink liquids with every bite. Will order transglutaminase, H pylori, vitamin B12, folate and vitamin-D levels. Patient will be sent for upper endoscopy. Procedure was scheduled for Wednesday afternoon. Patient denies any issues with anesthesia in the past. No history of sleep apnea. Not on any anticoagulation medication. Thank you for allowing me to participate in her care Orders: Orders Transglutaminase Ab IgG 07/06/23 R10.9 - Unspecified abdominal pain Transglutaminase IgA 07/06/23 R10.9 - Unspecified abdominal pain H pylori Ag Stool 07/06/23 K21.9 - Gastro-esophageal reflux disease without esophagitis Vitamin B12 and Folate 07/06/23 R19.7 - Diarrhea, unspecified Vitamin D 25-OH (D2 and D3) 07/06/23 E55.9 - Vitamin D deficiency, unspecified Medications: New pantoprazole take one tablet half an hour before breakfast 40 mg PO DAILY 30 tabs 2RF K21.9 - Gastro-esophageal reflux disease without esophagitis sennosides (Natural Senna Laxative) 17.2 mg (2 x 8.6 mg) PO BEDTIME 60 tabs 1RF constipation K59.00 - Constipation, unspecified sucralfate 1 g PO BID 60 tabs 1RF R19.7 - Diarrhea, unspecified Discontinued sucralfate (Carafate) Discontinued Reason: Doctor's Order 1 g (10 mL) PO TID 400 mL 0RF Coding Level of Care Code New Pt Level 4 (53960) Diagnoses Postprandial epigastric pain R10.13 Gastroesophageal reflux disease, unspecified whether esophagitis present K21.9 Esophagitis presence: esophagitis presence not specified Pharyngoesophageal dysphagia R13.14 Dysphagia type: pharyngoesophageal phase Dyspepsia R10.13 Slow transit constipation K59.01 Constipation type: slow transit constipation Time Spent (min) 45 Comment 30 minutes spent with patient and additional 15 minutes spent reviewing her records
[2023-07-06 13:56] VITALS: BP 158/68; PULSE 75; BMI 21.4
== END 2023-07-06 15:08 | disposition home or self-care (01) ==
PROVIDERS: PCP Internal Medicine; Visit Provider Nurse Practitioner Family
DX: R10.13 Epigastric pain (principal); K21.9 Gastro-esophageal reflux disease without esophagitis; R13.14 Dysphagia, pharyngoesophageal phase; K59.01 Slow transit constipation
CPT/HCPCS: 99204

== ENCOUNTER 2023-07-07 | Outpatient (REF) | payer MEDICARE, OTHER, SELFPAY | END 2023-07-07 00:01 | disposition home or self-care (01) | LOC: HO.LNP | PROVIDERS: Visit Provider Nurse Practitioner Family | DX: K21.9 Gastro-esophageal reflux disease without esophagitis (principal) | CPT/HCPCS: 87338 ==

== ENCOUNTER 2023-07-09 12:13 | Day surgery (SDC) | payer MEDICARE, OTHER, SELFPAY ==
--- NOTE | 2023-07-07 15:24 | HO.ANESPROP2 ---
Documented by User: Rika Deluna NP 07/07/23 15:26 HPI - Anesthesia Eval Consult details Narrative: 83yo F for Upper Endoscopy No PMHx from GI provider/office visit. Likely htn/hld based on Med Rec PMFSH Active Problems Active Problems: All Active Problems (Updated 06/23/23 @ 00:00 by Background Daemon) Epigastric pain (Acute) Facial bruising (Acute) Right ankle injury (Acute) Nephrolithiasis (Acute) Social History Social History Alcohol intake: never Patient Tobacco Use Status: Never used Tobacco Use of substances other than those prescribed or required for medical reasons: No Are you DNR?: No Advance Directives: No Advance Directives Information Provided: Yes Meds Allergies Allergy/AdvReac Type Severity Reaction Status Date / Time cephalexin [From KEFLEX] Allergy Severe RASH Verified 07/06/23 13:56 Sulfa (Sulfonamide Allergy Severe INTSERNAL Verified 07/06/23 13:56 Antibiotics) AND [SULFA (SULFONAMIDE EXTERNAL ANTIBIOTICS)] RASH/INFECTION Iodinated Contrast Media Allergy Intermediate HIVES,REDNESS Verified 07/06/23 13:56 [IV Dye, Iodine Containing] + SWELLING sulfamethoxazole Allergy Intermediate INTERNAL Verified 07/06/23 13:56 [From BACTRIM] AND EXTERNAL RASH/ INFECTION Home Medications Medication Instructions Recorded Confirmed Last Taken Type lisinopril 5 mg tablet 5 mg PO DAILY 02/07/21 07/09/23 Unknown History rosuvastatin 40 mg tablet 40 mg PO DAILY 02/07/21 07/09/23 Unknown History ondansetron HCl 4 mg tablet 4 mg PO DAILY 07/06/23 07/09/23 Unknown History Exam Pertinent Lab Results Pertinent Lab Results: Laboratory Tests 06/19/23 07:13 WBC 3.2 L Hgb 15.6 Hct 46.6 Plt Count 148 L Sodium 141 Potassium 4.1 Chloride 104 Carbon Dioxide 28 BUN 19 H Creatinine 0.69 Narrative Narrative: EKG 06/2023 Vent. Rate : 088 BPM Atrial Rate : 088 BPM P-R Int : 142 ms QRS Dur : 080 ms QT Int : 370 ms P-R-T Axes : 084 024 010 degrees QTc Int : 447 ms Normal sinus rhythm Inferior ST-T changes Abnormal ECG When compared with ECG of 14-APR-2023 07:26, No significant changes seen Assessment and Plan Assessment Anesthesia Assessment: Chart Reviewed Documented by User: Tamiko Moeller MD 07/09/23 12:53 COUNTS INCLUDE 234 BEDS AT THE [facility] Family History Family history of problems with anesthesia: No Surgical History History of Problems with Anesthesia: No Social History Social History Alcohol intake: never Patient Tobacco Use Status: Never used Tobacco Use of substances other than those prescribed or required for medical reasons: No Are you DNR?: No Advance Directives: No Advance Directives Information Provided: Yes Meds Allergies Allergy/AdvReac Type Severity Reaction Status Date / Time cephalexin [From KEFLEX] Allergy Severe RASH Verified 07/06/23 13:56 Sulfa (Sulfonamide Allergy Severe INTSERNAL Verified 07/06/23 13:56 Antibiotics) AND [SULFA (SULFONAMIDE EXTERNAL ANTIBIOTICS)] RASH/INFECTION Iodinated Contrast Media Allergy Intermediate HIVES,REDNESS Verified 07/06/23 13:56 [IV Dye, Iodine Containing] + SWELLING sulfamethoxazole Allergy Intermediate INTERNAL Verified 07/06/23 13:56 [From BACTRIM] AND EXTERNAL RASH/ INFECTION Home Medications Medication Instructions Recorded Confirmed Last Taken Type lisinopril 5 mg tablet 5 mg PO DAILY 02/07/21 07/09/23 Unknown History rosuvastatin 40 mg tablet 40 mg PO DAILY 02/07/21 07/09/23 Unknown History ondansetron HCl 4 mg tablet 4 mg PO DAILY 07/06/23 07/09/23 Unknown History Exam Airway Mallampati Class: II TM Dist: >3cm Neck ROM: Full Heart: rrr Lungs: cta Assessment and Plan Assessment Anesthesia Assessment: Anesthesia Plan Discussed Final Anesthetic Review Family History of Problems with Anesthesia: No History of Problems with Anesthesia: No NPO: Yes ASA Class: II Final Preanesthetic Review: No Changes in Pt Med Stat, Meds/Allgs Chart Reviewed and Consent Obtained/Reviewed Patient Risk: Intermediate Procedure Risk: Intermediate Anesthetic Plan Anesthetic Plan: MAC: Disposition: Standard PACU
[2023-07-09 12:42] VITALS: BMI 22.1
[2023-07-09 12:47] VITALS: BP 150/63; PULSE 87; RESP 18; TEMP 36.7; O2SAT 99
[2023-07-09] MEDS: Lactated Ringers 1,000 ML 100 ML IVCONT (13:16)
--- NOTE | 2023-07-09 14:09 | MHC.SHP ---
Pre-Procedural Eval Section A - 24 Hr Update-Section A only Date of Service: 07/09/23 The patient is an INPATIENT: No The patient has been examined within 24 hours of the surgical procedure. The History & Physical has been completed within 30 days and I have reviewed it.: Yes Section B - Complete if H&P > 30 days Chief Complaint: GERD, dysphagia Relevant Family History (Specify if Yes): No Present Medications: see Short Stay Collaborative assessment Medical History: Significant History (Nephrolithiasis) History of Previous Operations: Relevant previous surgery/procedure and date(s) (Renal stent) Allergies: Allergies Allergy/AdvReac Type Severity Reaction Status Date / Time cephalexin [From KEFLEX] Allergy Severe RASH Verified 07/06/23 13:56 Sulfa (Sulfonamide Allergy Severe INTSERNAL Verified 07/06/23 13:56 Antibiotics) AND [SULFA (SULFONAMIDE EXTERNAL ANTIBIOTICS)] RASH/INFECTION Iodinated Contrast Media Allergy Intermediate HIVES,REDNESS Verified 07/06/23 13:56 [IV Dye, Iodine Containing] + SWELLING sulfamethoxazole Allergy Intermediate INTERNAL Verified 07/06/23 13:56 [From BACTRIM] AND EXTERNAL RASH/ INFECTION Review of Systems Sugical H&P ROS: Negative: Constitution, Cardiovascular and Respiratory and Yes, Specify: Gastrointestinal (GERD, dysphagia) Exam Surgical H&P Exam: Normal: Heart, Normal: Lungs, Normal: Extremities and Normal: Abdomen Plan Diagnosis/Plan: Unchanged I have reviewed the history and physical and performed a pertinent physical examination on my patient. No changes have occurred unless specified. Time Spent With Patient Time: Total time managing care of this patient today ____ minutes.
--- NOTE | 2023-07-09 14:18 | W.PM.OPN ---
Operative Note Operative Note Date of Service: 07/09/23 Narrative: FLEXIBLE TRANSORAL UPPER GASTROINTESTINAL ENDOSCOPY WITH BIOPSIES AND ESOPHAGEAL BALLOON DILATION Pre-op diagnosis: GERD, dysphagia Post-op diagnosis: GERD, gastritis Endoscopist:? Cedric Davidson MD Anesthesia:?MAC UPPER ENDOSCOPY Consent:?Indications for the procedure and potential complications of bleeding, perforation, reaction to medications and missed diagnosis were discussed with the patient and informed consent was obtained. Instrument:?Olympus GIF H 190 mid size upper endoscope Monitoring: Vital signs and clinical assessment, continuous EKG monitoring, Pulse oximetry, Carbon Dioxide monitoring and blood pressure monitoring were done throughout the procedure. Procedure:?The patient was placed in the left lateral decubitis position and pre-procedure medications were administered and a bite block was placed. The endoscope was inserted into the mouth and advanced under direct vision to the third part of duodenum. A careful inspection was made as the upper endoscope was withdrawn including a retroflexed examination of the proximal stomach; Findings and interventions are described below. Findings: Larynx:? Normal Esophagus:? Tortuous esophagus with increased tertiary contractions without stricture or ring. Biopsies were obtained from proximal esophagus to check for EOE. GE junction at 40 cms. No esophagitis or Muhammad's.? Esophageal balloon dilation was performed with a 19 mm (57 F) CRE balloon x 60 seconds. Some heme was noted just above the GE junction. Stomach:?Mild gastric erythema. Biopsies were obtained. Grade 2 flap valve on retroflexed examination of the cardia. Duodenum:?Normal bulb and descending duodenum.? Intervention:?Biopsies and esophageal balloon dilation as noted above Impression and Post Procedure Diagnosis: Endoscopy Findings: ESOPHAGUS: Tortuous esophagus with increased tertiary contractions without stricture or ring. Biopsies were obtained from proximal esophagus to check for EOE. Esophageal balloon dilation was performed with a 19 mm (57 F) CRE balloon x 60 seconds. Some heme was noted just above the GE junction. STOMACH: Mild gastritis. Dysphagia is likely due to esophageal motility disorder. Plan: Await pathology results Patient has an appointment on 07/21/23 in the GI Clinic with?Carmen Asher NP. Patient advised to proceed with an upper GI as scheduled on 07/13/2023. She was advised to eat soft foods, chew her food well and take it with sips of fluids
[2023-07-09 14:42] VITALS: BP 86/41; PULSE 70; RESP 16; TEMP 36.2; O2SAT 98
[2023-07-09 14:47] VITALS: BP 96/45; PULSE 65; RESP 16; O2SAT 96
[2023-07-09 14:52] VITALS: BP 100/48; PULSE 66; RESP 16; O2SAT 96
[2023-07-09 14:57] VITALS: BP 109/57; PULSE 73; RESP 20; O2SAT 96
[2023-07-09 15:06] VITALS: BP 116/55; PULSE 68; RESP 20; TEMP 36.2; O2SAT 97
== END 2023-07-09 15:37 | disposition home or self-care (01) ==
PROVIDERS: PCP Internal Medicine; Visit Provider Internal Medicine Gastroenterology
PROC: 0DJ08ZZ Inspection of Upper Intestinal Tract, Via Natural or Artificial Opening Endoscopic (ICD-10-PCS; CPT 43235; principal; 2023-07-09 13:40)
DX: R13.10 Dysphagia, unspecified (principal); K21.9 Gastro-esophageal reflux disease without esophagitis; K22.89 Other specified disease of esophagus; K29.50 Unspecified chronic gastritis without bleeding; N20.0 Calculus of kidney; Z79.899 Other long term (current) drug therapy; Z88.1 Allergy status to other antibiotic agents; Z88.2 Allergy status to sulfonamides; Z91.041 Radiographic dye allergy status
CPT/HCPCS: 43249; 43239; 88305; 88313; 88342; C1726; J2704

== ENCOUNTER → 2023-07-09 12:13 | Outpatient (BNV) | payer MEDICARE, OTHER, SELFPAY | PROVIDERS: PCP Internal Medicine; Visit Provider Internal Medicine Gastroenterology | DX: K29.70 Gastritis, unspecified, without bleeding (principal); K21.9 Gastro-esophageal reflux disease without esophagitis | CPT/HCPCS: 43239; 43249 ==

== ENCOUNTER 2023-07-13 09:46 | Outpatient (REF) | payer MEDICARE, OTHER, SELFPAY ==
--- NOTE | ~2023-07-13 | US_ITS ---
EXAMINATION: US THYROID CLINICAL INFORMATION: Nontoxic single thyroid nodule. COMPARISON: Ultrasound soft tissue head/neck thyroid dated 04/15/2020. TECHNIQUE: Linear transducer grayscale and color Doppler examination with attention to the region of the thyroid. FINDINGS: SIZE: Measurements of the thyroid lobes and nodules are given in sagittal, anteroposterior and transverse dimensions respectively. Right Thyroid Lobe: 4.7 x 2.4 x 2.0 cm, volume 9.3 mL. Previously 5.2 x 2.1 x 1.8 cm, volume 12.7 mL. Parenchyma: The gland echotexture is homogeneous. Thyroid vascularity is normal. Left Thyroid Lobe: 5.2 x 2.3 x 1.5 cm, volume 9.4 mL. Previously 5.9 x 2.4 x 1.9 cm, volume 14.0 mL. Parenchyma: The gland echotexture is homogeneous. Thyroid vascularity is normal. Isthmus: 0.6 cm in maximum AP dimension. Previously 0.5 cm. Estimated total number of nodules greater than or equal to 1 cm: 3. Lapper nodules are described as follows: 1. Location: Left inferior. Size: 1.5 x 0.9 x 1.1 cm, volume 0.8 mL. Previously: 1.1 x 0.6 x 1.5 cm, volume 0.5 mL. Nodule characteristics: Composition: Solid/almost completely solid (2). Echogenicity: Isoechoic (1). Shape: Not taller than wide (0). Margins: Ill-defined (0). Echogenic Foci: None (0). ACR TI-RADS total points: 3 ACR TI-RADS category: 3 Significant change in size (>/= 20% in 2 dimensions and minimal increase of 2 mm or 50% or greater increase in volume): Yes Change in features: No Change in ACR TI-RADS risk category: Not applicable 2. Location: Inferior isthmus. Size: 1.4 x 0.5 x 1.0 cm, volume 0.4 mL. Previously: 1.3 x 0.6 x 1.0 cm, volume 0.4 mL. Nodule characteristics: Composition: Mixed cystic and solid (1). Echogenicity: Cannot be determined (1). Shape: Not taller than wide (0). Margins: Smooth (0). Echogenic Foci: None (0). ACR TI-RADS total points: 2 ACR TI-RADS category: 2 Significant change in size (>/= 20% in 2 dimensions and minimal increase of 2 mm or 50% or greater increase in volume): No Change in features: No Change in ACR TI-RADS risk category: Not applicable. 3. Location: Right inferior. Size: 1.1 x 0.6 x 0.9 cm, volume 0.3 mL. Previously: 1.0 x 0.8 x 0.9 cm, volume 0.4 mL. Nodule characteristics: Composition: Solid/almost completely solid (2). Echogenicity: Cannot be determined (1). Shape: Not taller than wide (0). Margins: Smooth (0). Echogenic Foci: None (0). ACR TI-RADS total points: 3 ACR TI-RADS category: 3 Significant change in size (>/= 20% in 2 dimensions and minimal increase of 2 mm or 50% or greater increase in volume): No Change in features: No Change in ACR TI-RADS risk category: Not applicable. 4. Location: Right inferior. Size: 0.7 x 0.4 x 0.8 cm, volume 0.1 mL. Previously: 0.8 x 0.4 x 0.7 cm, volume 0.1 mL. Nodule characteristics: Composition: Mixed cystic and solid (1). Echogenicity: Hypoechoic (2). Shape: Not taller than wide (0). Margins: Smooth (0). Echogenic Foci: None (0). ACR TI-RADS total points: 3 ACR TI-RADS category: 3 Significant change in size (>/= 20% in 2 dimensions and minimal increase of 2 mm or 50% or greater increase in volume): No Change in features: No Change in ACR TI-RADS risk category: Not applicable. NODES: No lymphadenopathy is seen in the tissue surrounding the thyroid gland. 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 Left inferior TR 3 nodule measuring 1.5 cm, slightly increased in size compared to 04/15/2020. 2. Inferior isthmic TR 2 nodule measuring 1.4 cm, not significantly changed. 3. Right inferior TR 3 nodule measuring 1.1 cm, not significantly changed. 4. Right inferior TR 3 nodule measuring 0.8 cm, not significantly changed. Recommend continued follow-up with ultrasound following the guidelines below. ACR TI-RADS RECOMMENDATION REFERENCE: Ultrasound-guided fine-needle aspiration, follow up ultrasound, no further followup. * TR1 (0 point) and TR2 (2 points): No FNA or followup * TR3 (3 points): FNA if more than or equal to 2.5 cm in maximum dimension, follow up ultrasound in 1, 3 and 5 years if 1.5 to 2.4 cm in maximum dimension. * TR4 (4-6 points): FNA if more than or equal to 1.5 cm in maximum dimension, follow up ultrasound in 1, 2, 3 and 5 years if 1 to 1.4 cm in maximum dimension. * TR5 (more than or equal to 7 points): FNA if more than or equal to 1 cm in maximum dimension, follow up ultrasound every year for 5 years if 0.5 to 0.9 cm in maximum dimension. * TR3, TR4 or TR5 nodules that are below the size threshold for follow up receive no followup.
--- NOTE | ~2023-07-13 | FL_ITS ---
EXAMINATION: XR FLUOROSCOPY UPPER GI SERIES CLINICAL INFORMATION: Dysphagia. Recent endoscopy demonstrating esophageal dysmotility COMPARISON: 08/22/2018. TECHNIQUE: Fluoroscopic air contrast upper GI examination was performed utilizing standard techniques with thin and thick barium and effervescent granules. Numerous spot images were obtained. FINDINGS: Moderate spondylosis of the cervical spine present most notably involving C4-C7. A ventral bridging osteophyte at C5-C6 minimally indents upon the most superior esophagus. Lateral cine images of the oropharynx and hypopharynx demonstrate normal swallow mechanism with normal epiglottic inversion and soft palate elevation. There is trace laryngeal penetration with thick barium to the level of the true vocal cords. No subglottic aspiration identified. No nasopharyngeal reflux present. Hypopharyngeal structures appear normal without evidence of mass or diverticulum. There was no significant cricopharyngeal achalasia. Dual and single contrast images of the esophagus demonstrate normal caliber and contour. Within the upper third of the esophagus, there are subtle foci of contrast pooling suggesting superficial erosions (RF 1-5, image 11 of 86). Mild esophageal fold thickening is present. There is no mass present. There is to and fro motion of barium column with nonpropulsive tertiary contractions noted throughout the esophagus. There is bird beaking of the distal esophagus at the GE junction suggesting mild to moderate achalasia. No evidence of hiatus hernia identified. No significant gastroesophageal reflux was seen during the course of the examination and on reflux views. Dual contrast and single contrast images of the stomach demonstrated a normal contour. Gastric mucosal folds appear thickened, likely representing gastritis. No evidence of mass or other abnormalities. Contrast freely passed into the gastric antrum and duodenal bulb without delay. Single and air-contrast images of the duodenal bulb demonstrate no abnormality. The duodenal sweep has a normal appearance, course, and mucosal fold appearance. The imaged proximal jejunum has a normal fold pattern and caliber. FLUOROSCOPY TIME: 4 minutes 30 seconds Number of Spot Images: 7 Number of Cine: 10 DOSE AREA PRODUCT: 1454 uGy-m2 (microgray-meter squared) FL/FL upper GI series IMPRESSION: 1. Trace laryngeal penetration with thick barium to the level of the true vocal cords. No subglottic aspiration. 2. Esophageal dysmotility. Granular mucosa with subtle ulcerations and fold thickening suggesting erosive esophagitis. 3. Mild to moderate narrowing at the GE junction with appearance suggestive of achalasia. 4. Thickened gastric rugal folds and subtle small scattered apthous type ulcerations that are consistent with erosive gastritis. This was seen on endoscopy per report. This procedure was performed by Frank Zamora PA-C, and supervised by Dr. Huffman
== END 2023-07-13 09:47 | disposition home or self-care (01) ==
LOC: HO.US 09:46
PROVIDERS: PCP Internal Medicine; Visit Provider Internal Medicine
DX: R11.0 Nausea (principal); E04.1 Nontoxic single thyroid nodule
CPT/HCPCS: 74240; 76536

== ENCOUNTER → 2023-07-13 09:51 | Outpatient (BNV) | payer MEDICARE, OTHER, SELFPAY | PROVIDERS: PCP Internal Medicine; Visit Provider Physician Assistant Surgical | DX: R13.10 Dysphagia, unspecified (principal) | CPT/HCPCS: 74246 ==

== ENCOUNTER 2023-07-21 11:43 | Outpatient (REF) | payer MEDICARE, OTHER, SELFPAY | END 2023-07-21 11:44 | disposition home or self-care (01) | LOC: HO.LAB 11:43 | PROVIDERS: PCP Internal Medicine; Visit Provider Nurse Practitioner Family | DX: K21.9 Gastro-esophageal reflux disease without esophagitis (principal); R13.10 Dysphagia, unspecified; R10.13 Epigastric pain | CPT/HCPCS: 36415; 86003; 99212 ==

== ENCOUNTER 2023-07-21 11:43 | Outpatient (AMB) | payer MEDICARE, OTHER, SELFPAY ==
[2023-07-21 11:45] VITALS: BP 150/76; PULSE 91; BMI 21.7
--- NOTE | 2023-07-21 11:45 | A.OFFVIS_ITS ---
Intake Vital Signs 07/21/23 11:45 Height 5 ft 8 in Weight 142 lb 13.753 oz BMI 21.7 BP 150/76 H Blood Pressure Location Rt brachial Position Sitting Pulse 91 Pulse Source Pulse Oximeter Intake Visit Reasons: s/p egd Intake Note: Pt presents to the office today for a s/p EGD. Pt states she is still having issues with food feeling like it gets stuck and comes back up. She denies any vomiting but states she is nauseous at times. Allergies cephalexin [From KEFLEX] Allergy (Severe, Verified 07/21/23 11:47) RASH Sulfa (Sulfonamide Antibiotics) [SULFA (SULFONAMIDE ANTIBIOTICS)] Allergy (Severe, Verified 07/21/23 11:47) INTSERNAL AND EXTERNAL RASH/INFECTION Iodinated Contrast Media [IV Dye, Iodine Containing] Allergy (Intermediate, Verified 07/21/23 11:47) HIVES,REDNESS + SWELLING sulfamethoxazole [From BACTRIM] Allergy (Intermediate, Verified 07/21/23 11:47) INTERNAL AND EXTERNAL RASH/ INFECTION stent Allergy (Uncoded 07/21/23 11:47) Vomiting HPI s/p egd HPI Details LAST VISIT Postprandial epigastric pain GERD (gastroesophageal reflux disease) Dysphagia Dyspepsia Constipation Plan Will start patient on pantoprazole daily. Patient was taking omeprazole on as needed basis and reports that was not helpful. Patient can take sucralfate at noon and at bedtime. Patient reports that sucralfate works. Would like to get script for tablets as she has to pay [id number] for suspension. Patient also reports to be constipated. Will start her on Senokot. Patient was encouraged to increase fluid intake and activity to promote better bowel motility. Discussed with patient avoiding dietary triggers and late night snacking. Staying upright for minimal 3 hours after meals discussed patient. Eating small bites, chew well and drink liquids with every bite. Will order transglutaminase, H pylori, vitamin B12, folate and vitamin-D levels. Patient will be sent for upper endoscopy. Procedure was scheduled for Wednesday afternoon. Patient denies any issues with anesthesia in the past. No history of sleep apnea. Not on any anticoagulation medication. ? Thank you for allowing me to participate in her care Orders Orders Transglutaminase Ab IgG 07/06/23 R10.9 Transglutaminase IgA 03/05/24 R10.9 H pylori Ag Stool 07/06/23 K21.9 Vitamin B12 and Folate 07/06/23 R19.7 Vitamin D 25-OH (D2 and D3) 07/06/23 E55.9 Medications New pantoprazole take one tablet half an hour before breakfast 40 mg PO DAILY 30 tabs 2RF K21.9 sennosides (Natural Senna Laxative) 17.2 mg (2 x 8.6 mg) PO BEDTIME 60 tabs 1RF constipation K59.00 sucralfate 1 g PO BID 60 tabs 1RF R19.7 Discontinued sucralfate (Carafate) Discontinued Reason: Doctor's Order 1 g (10 mL) PO TID 400 mL 0RF UPPER ENDOSCOPY Findings: Larynx:? Normal Esophagus:? Tortuous esophagus with increased tertiary contractions without stricture or ring. Biopsies were obtained from proximal esophagus to check for EOE. GE junction at 40 cms. No esophagitis or Muhammad's.? Esophageal balloon dilation was performed with a 19 mm (57 F) CRE balloon x 60 seconds. Some heme was noted just above the GE junction. Stomach:?Mild gastric erythema. Biopsies were obtained. Grade 2 flap valve on retroflexed examination of the cardia. Duodenum:?Normal bulb and descending duodenum.? Intervention:?Biopsies and esophageal balloon dilation as noted above Impression and Post Procedure Diagnosis: Endoscopy Findings: ESOPHAGUS: Tortuous esophagus with increased tertiary contractions without stricture or ring. Biopsies were obtained from proximal esophagus to check for EOE. Esophageal balloon dilation was performed with a 19 mm (57 F) CRE balloon x 60 seconds. Some heme was noted just above the GE junction. STOMACH: Mild gastritis. Dysphagia is likely due to esophageal motility disorder. Plan: Await pathology results Patient has an appointment on 07/21/23 in the GI Clinic with?Carmen Asher NP. Patient advised to proceed with an upper GI as scheduled on 07/13/2023. She was advised to eat soft foods, chew her food well and take it with sips of fluids PATHOLOGY RESULTS Diagnosis A. Gastric antrum, biopsy: Gastric antral mucosa with minimal chronic inactive gastritis and increased eosinophils; negative for H. pylori, intestinal metaplasia and dysplasia (see comment). B. Esophagus, proximal, biopsy: Squamous mucosa with no specific change; no evidence of eosinophilic esophagitis. Comment: (A): No organisms are identified. The fi ndings may be idiopathic or due to various infections, drugs, systemic processes, food allergy, status post H pylori treatment, or Crohn's disease, and clinical correlation is necessary TODAY'S VISIT Patient is here today for follow-up and to discuss upper endoscopy results as well as upper GI study. Patient had upper endoscopy with balloon dilation. Few days later patient went for upper GI study and significant in narrowing was foun d just above the GE junction. Esophagitis with increased eosinophilic count in gastric mucosa as well as chronic inactive gastritis. No H pylori found. No eosinophilic esophagitis found in esophagus. Patient denies any nausea or vomiting. Reports to having trouble swallowing certain food. Patient reports postprandial abdominal bloating. Does not follow any particular diet. Reports that she is moving her bowels well with senna. Denies melena, hematochezia, unintentional weight loss or ribbon like stools. [facility], [facility] Surgical History (Updated 07/21/23 @ 11:49 by Renee Zamarripa CMA) H/O esophagogastroduodenoscopy (07/09/23) Social History Alcohol intake: never Patient Tobacco Use Status: Never used Tobacco Review of Systems Const Denies weight gain and Denies weight loss ENT Reports no additional complaints, Reports dysphagia and Denies odynophagia Card Reports no additional complaints Resp Reports no additional complaints GI Denies abdominal pain, Denies belching, Denies melena, Reports bloating, Denies change in bowel habits, Reports dysphagia, Denies excessive flatus, Denies dyspepsia, Reports heartburn, Denies diarrhea, Denies loose stools, Denies nausea, Denies odynophagia and Denies vomiting Reports no additional complaints Musc Reports no additional complaints Neuro Reports no additional complaints Psych Reports no additional complaints Endo Reports no additional complaints Physical Exam Vital Signs: Last Vital Signs Pulse 91 07/21/23 11:45 BP 150/76 H 07/21/23 11:45 BMI result Body Mass Index 21.7 Const General: healthy appearing, no acute distress and well developed Nutritional Appearance: well nourished Orientation/consciousness: patient oriented x3 Resp Effort & Inspection: normal respiratory effort, able to speak in complete sentences, no tracheal deviation and symmetric chest movement Auscultation: clear to auscultation bilaterally Cardio Rate: regular rate GI Inspection: Yes normal to inspection and No distended Palpation (GI): Soft to palpation, not firm, nontender and No hepatosplenomegaly present Auscultation: normal bowel sounds General: Yes no CVA tenderness Back/Spine/Pelvis Back: no CVA tenderness Skin General skin exam: elasticity normal, turgor normal and dry skin Neuro General: patient oriented x3 Psych Appearance: grossly normal Mental Status: mental status grossly normal Results Reviewed Results Reviewed: UPPER GI SERIES 07/13/2023 IMPRESSION: 1. Trace laryngeal penetration with thick barium to the level of the true vocal cords. No subglottic aspiration. 2. Esophageal dysmotility. Granular mucosa with subtle ulcerations and fold thickening suggesting erosive esophagitis. 3. Mild to moderate narrowing at the GE junction with appearance suggestive of achalasia. 4. Thickened gastric rugal folds and subtle small scattered apthous type ulcerations that are consistent with erosive gastritis. This was seen on endoscopy per report. Assessment & Plan Assessment & Plan (1) Epigastric pain: Code(s): R10.13 - Epigastric pain (2) Postprandial epigastric pain: Code(s): R10.13 - Epigastric pain (3) GERD (gastroesophageal reflux disease): Code(s): K21.9 - Gastro-esophageal reflux disease without esophagitis Qualifiers: Esophagitis presence: without esophagitis Qualified Code(s): K21.9 - Gastro-esophageal reflux disease without esophagitis (4) Dysphagia: Code(s): R13.10 - Dysphagia, unspecified Qualifiers: Dysphagia type: pharyngoesophageal phase Qualified Code(s): R13.14 - Dysphagia, pharyngoesophageal phase (5) Dyspepsia: Code(s): R10.13 - Epigastric pain (6) Constipation: Code(s): K59.00 - Constipation, unspecified Qualifiers: Constipation type: slow transit constipation Qualified Code(s): K59.01 - Slow transit constipation Plan Patient was start take sucralfate twice a day. Will send her for RAST allergen test. Will give her script for simethicone. Discussed with patient avoiding dietary triggers and late night snacking. Eating small bites and slowly. If patient will continue have symptoms will send her for modified barium swallow. Discussed with patient low FODMAP diet. List of food recommended as well as list of food to avoid given to patient. Patient will call our office if her symptoms will get worse or if she will experience any additional GI concerning symptoms. I will see patient in 2 months, sooner on as needed basis. Patient is agreeable to this plan and verbalizes understanding of instructions. She was given the opportunity to ask questions and all questions answered. Thank you for allowing me to participate in her care Orders: Orders Rast Allergen 07/21/23 K21.9 - Gastro-esophageal reflux disease without esophagitis Medications: New simethicone (Gas Relief (simethicone)) 125 mg PO BID-TID PRN 90 tabs 3RF abdominal distention Discontinued pantoprazole take one tablet half an hour before breakfast Discontinued Reason: Doctor's Order 40 mg PO DAILY 30 tabs 2RF K21.9 - Gastro-esophageal reflux disease without esophagitis Coding Level of Care Code Est Pt Level 4 (05035) Diagnoses Epigastric pain R10.13 Postprandial epigastric pain R10.13 Gastroesophageal reflux disease without esophagitis K21.9 Esophagitis presence: without esophagitis Pharyngoesophageal dysphagia R13.14 Dysphagia type: pharyngoesophageal phase Dyspepsia R10.13 Slow transit constipation K59.01 Constipation type: slow transit constipation Time Spent (min) 40 Comment 25 minutes spent with patient and additional 15 minutes spent reviewing her records
== END 2023-07-21 12:32 | disposition home or self-care (01) ==
PROVIDERS: PCP Internal Medicine; Visit Provider Nurse Practitioner Family
DX: R10.13 Epigastric pain (principal); K21.9 Gastro-esophageal reflux disease without esophagitis; R13.14 Dysphagia, pharyngoesophageal phase; K59.01 Slow transit constipation
CPT/HCPCS: 99214

== ENCOUNTER 2023-08-31 10:48 | Outpatient (REF) | payer MEDICARE, OTHER, SELFPAY ==
[2023-08-31 10:51] LABS: MANUAL DIFF FLAG NO
[2023-08-31 11:32] LABS: Basophils Percent Auto 1.3 % (0-2); Eosinophils Absolute Auto 0.2 X10*3/uL (0.0-0.4); Eosinophils Percent Auto 7.3 % (0-4); Hematocrit 44.4 % (37.0-47.0); Hemoglobin 14.7 g/dl (12.0-16.0); Imm Gran Abs Auto 0.01 X10*3/uL (0.00-0.03); Imm Gran Pct Auto 0.3 % (0.0-0.4); Lymphocytes Absolute Auto 0.9 X10*3/uL (1.2-4.9); Lymphocytes Percent Auto 27.1 % (20-40); Mean Corpuscular HGB Conc 33.1 g/dl (31.0-35.0); Mean Corpuscular Hemoglobin 30.8 pg (27.0-33.0); Mean Corpuscular Volume 93.1 fL (80.0-98.0); Mean Platelet Volume 11.1 fL (9.4-12.3); Monocytes Absolute Auto 0.4 X10*3/uL (0.1-1.2); Monocytes Percent Auto 12.7 % (2-11); Neutrophils Absolute Auto 1.6 x10*3/uL (2.0-8.3); Neutrophils Percent Auto 51.3 % (45-73); Platelet Count 144 X10*3/uL (160-400); Red Blood Count 4.77 X10*6/uL (4.20-5.50); Red Cell Distribution Width 13.9 % (11.0-16.0); White Blood Count 3.1 X10*3/uL (4.8-10.8)
[2023-08-31 11:55] LABS: Alanine Aminotransferase 25 U/L (0-31); Albumin Level 4.2 g/dL (3.5-5.0); Alkaline Phosphatase 70 U/L (39-117); Aspartate Amino Transferase 28 U/L (5-31); Bilirubin Direct 0.3 mg/dL (0.0-0.5); Bilirubin Total 0.7 mg/dL (0.0-1.0); Cholesterol 167 mg/dL (<200); HDL Cholesterol 76 mg/dL (>40); LDL Cholesterol Calculated 78 mg/dL (<100); Total Protein 6.6 g/dL (6.5-8.0); Triglycerides 67 mg/dL (<150)
[2023-08-31 12:32] LABS: Reflex LDLD? No
== END 2023-08-31 10:49 | disposition home or self-care (01) ==
LOC: HO.LNP 10:48
PROVIDERS: Visit Provider Internal Medicine
DX: D70.9 Neutropenia, unspecified (principal); E78.00 Pure hypercholesterolemia, unspecified
CPT/HCPCS: 80061; 80076; 85025

== ENCOUNTER 2023-09-14 08:32 | Outpatient (AMB) | payer MEDICARE, OTHER, SELFPAY ==
--- NOTE | 2023-09-14 08:37 | MHC.OFFVIS ---
Vital Signs 09/14/23 08:39 09/14/23 10:05 Height 5 ft 8 in Weight 130 lb 1.164 oz BMI 19.8 BP 98/58 L 138/67 Blood Pressure Location Lt brachial Lt brachial Position Sitting Sitting Pulse 90 Intake Visit Reasons: difficulty swallowing Intake Note: Maureen presents in the office as a follow up regarding her difficult swallowing. CC: She states that she was not able to get the new medication. States that yesday was a good day but wednesday was terrible. She is constantly belching and burping up a phlegm like mucus - she states this never happened until the EGD. She states her weight is going down and she can no longer live like this. She states she does not have issues with gas. Allergies cephalexin [From KEFLEX] Allergy (Severe, Verified 09/14/23 08:39) RASH Sulfa (Sulfonamide Antibiotics) [SULFA (SULFONAMIDE ANTIBIOTICS)] Allergy (Severe, Verified 09/14/23 08:39) INTSERNAL AND EXTERNAL RASH/INFECTION Iodinated Contrast Media [IV Dye, Iodine Containing] Allergy (Intermediate, Verified 09/14/23 08:39) HIVES,REDNESS + SWELLING sulfamethoxazole [From BACTRIM] Allergy (Intermediate, Verified 09/14/23 08:39) INTERNAL AND EXTERNAL RASH/ INFECTION stent Allergy (Uncoded 09/14/23 08:39) Vomiting HPI HPI difficulty swallowing: Details: LAST VISIT Epigastric pain Postprandial epigastric pain GERD (gastroesophageal reflux disease) Dysphagia Dyspepsia Constipation Plan Patient was start take sucralfate twice a day. Will send her for RAST allergen test. Will give her script for simethicone. Discussed with patient avoiding dietary triggers and late night snacking. Eating small bites and slowly. If patient will continue have symptoms will send her for modified barium swallow. Discussed with patient low FODMAP diet. List of food recommended as well as list of food to avoid given to patient. Patient will call our office if her symptoms will get worse or if she will experience any additional GI concerning symptoms. I will see patient in 2 months, sooner on as needed basis. Patient is agreeable to this plan and verbalizes understanding of instructions. She was given the opportunity to ask questions and all questions answered. ? Thank you for allowing me to participate in her care Orders Orders Rast Allergen 07/21/23 K21.9 Medications New simethicone (Gas Relief (simethicone)) 125 mg PO BID-TID PRN 90 tabs 3RF abdominal distention Discontinued pantoprazole take one tablet half an hour before breakfast Discontinued Reason: Doctor's Order 40 mg PO DAILY 30 tabs 2RF K21.9 TODAY'S VISIT: Patient is here today for requested visit. Since last visit patient reports that she has been feeling better, however she continues to have epigastric discomfort and occasional reflux. Patient reports that she feels reflux coming up, feels like the food and foam is coming up. Patient reports frequent belching and feels like when she has gas pocket stuck in the upper abdomen she is unable to swallow because she is unable to belch. Couple episodes during the night time when patient had to get up and walk around for some time untill she was able to burp. Her symptoms went away after she was able to burp. Patient is avoiding eating food that is solid. She is eating ground meat for the most part. Eating mashed potatoes. Patient had upper endoscopy and balloon dilation was performed, however few days after procedure she had upper GI series done that showed significant esophageal dysmotility. Granular mucosa with ulceration and folds thickening suggesting of erosive esophagitis. Since last visit we were trying to put patient on Voquenza as this is the only FDA approved drug to treat successfully erosive esophagitis, however patient had very high co-pay and was unable to get that for her. Mild to moderate narrowing at the GE junction with small ulcerations suggesting of erosive gastritis. Patient has been taking sucralfate twice a day and reports that her symptoms of epigastric discomfort are better now. She is taking Nexium. Ideally patient should be sent for another endoscopy to do stretching with Savary dilation, we could also consider pneumonic dilation. Case discussed with Dr. Hudson. We did order barium swallow to re-evaluate her esophagus and gastric fundus as well as GE junction. Modified barium swallow will not be appropriate test as there was no glottic penetration noted and patient was able to swallow well. Patient reports that her problem is mainly severe belching and reflux come in up after eating certain food. [facility] Surgical History H/O esophagogastroduodenoscopy (07/09/23) Social History Alcohol intake: never Patient Tobacco Use Status: Never used Tobacco Review of Systems Const Denies weight gain and Denies weight loss ENT Reports no additional complaints, Reports dysphagia (Occasional) and Denies odynophagia Card Reports no additional complaints Resp Reports no additional complaints GI Reports abdominal pain (Epigastric), Reports belching, Denies melena, Reports bloating, Denies change in bowel habits, Reports dysphagia (Occasional), Denies excessive flatus, Reports dyspepsia, Reports heartburn, Denies diarrhea, Denies loose stools, Denies nausea, Denies odynophagia and Denies vomiting Reports no additional complaints Musc Reports no additional complaints Neuro Reports no additional complaints Psych Reports no additional complaints Endo Reports no additional complaints Physical Exam Vital Signs: Last Vital Signs Pulse 90 09/14/23 08:39 BP 138/67 09/14/23 10:05 BMI result Body Mass Index 19.8 Const General: healthy appearing, no acute distress and well developed Nutritional Appearance: well nourished Orientation/consciousness: patient oriented x3 Resp Effort & Inspection: normal respiratory effort, able to speak in complete sentences, no tracheal deviation and symmetric chest movement Auscultation: clear to auscultation bilaterally Cardio Rate: regular rate GI Inspection: Yes normal to inspection and No distended Palpation (GI): Soft to palpation, not firm, nontender and No hepatosplenomegaly present Auscultation: normal bowel sounds General: Yes no CVA tenderness Back/Spine/Pelvis Back: no CVA tenderness Skin General skin exam: elasticity normal, turgor normal and dry skin Neuro General: patient oriented x3 Psych Appearance: grossly normal Mental Status: mental status grossly normal Assessment & Plan Assessment & Plan (1) Epigastric pain: Code(s): R10.13 - Epigastric pain Category: Medical (2) Postprandial epigastric pain: Code(s): R10.13 - Epigastric pain (3) GERD (gastroesophageal reflux disease): Code(s): K21.9 - Gastro-esophageal reflux disease without esophagitis Qualifiers: Esophagitis presence: with esophagitis Esophagitis bleeding: without hemorrhage Qualified Code(s): K21.00 - Gastro-esophageal reflux disease with esophagitis, without bleeding (4) Dysphagia: Code(s): R13.10 - Dysphagia, unspecified Qualifiers: Dysphagia type: esophageal phase Qualified Code(s): R13.19 - Other dysphagia (5) Dyspepsia: Code(s): R10.13 - Epigastric pain (6) Constipation: Code(s): K59.00 - Constipation, unspecified Qualifiers: Constipation type: slow transit constipation Qualified Code(s): K59.01 - Slow transit constipation (7) Belching symptom: Code(s): R14.2 - Eructation (8) 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 Discuss this with Dr. Hudson and ideally patient should go for esophageal manometry to further evaluate. However we will send patient for barium swallow to reassess. Patient has been treated for 2 months and should have improvement. Will schedule appointment with Dr. Hudson after for possible salivary or pneumonic dilation of the GE junction before proceeding with surgery given her age. Heller myotomy might not be necessary at this time. We will be discussing this case with Dr. Stevens bariatric surgeon. Patient's symptoms most likely are related to her severe acid reflux. Modified barium swallow not appropriate test at this time as patient's symptoms are at the lower part of esophagus. Symptoms happened occasionally and mostly severe belching with reflux coming up to her throat. Will send script for simethicone chewable tablets. Patient is unable to swallow capsules. I will see her in 1-2 weeks to re-evaluate her treatment with Voquezna. Long discussion with patient about the plan of care. Patient is agreeable at this time and verbalizes understanding of instructions. She was given the opportunity to ask questions and all questions answered. Thank you for allowing me to participate in her care Medications: New simethicone (Gas Relief (simethicone)) 125 mg PO BID-TID PRN 90 tabs 3RF abdominal distention Coding Level of Care Code New Pt Level 5 (45428) Diagnoses Epigastric pain R10.13 Postprandial epigastric pain R10.13 Gastroesophageal reflux disease with esophagitis without hemorrhage K21.00 Esophagitis presence: with esophagitis Esophagitis bleeding: without hemorrhage Esophageal dysphagia R13.19 Dysphagia type: esophageal phase Dyspepsia R10.13 Slow transit constipation K59.01 Constipation type: slow transit constipation Belching symptom R14.2 Achalasia K22.0 Time Spent (min) 55 Comment 30 minutes spent with patient and additional 25 minutes spent reviewing her records
[2023-09-14 08:39] VITALS: BP 98/58; PULSE 90; BMI 19.8
[2023-09-14 10:05] VITALS: BP 138/67
== END 2023-09-14 09:47 | disposition home or self-care (01) ==
PROVIDERS: PCP Internal Medicine; Visit Provider Nurse Practitioner Family
DX: K21.00 Gastro-esophageal reflux disease with esophagitis, without bleeding (principal); R13.19 Other dysphagia; K59.01 Slow transit constipation; R14.2 Eructation; K22.0 Achalasia of cardia
CPT/HCPCS: 99215

== ENCOUNTER → 2023-09-14 08:32 | Outpatient (BNVA) | payer MEDICARE, OTHER, SELFPAY | PROVIDERS: PCP Internal Medicine; Visit Provider Nurse Practitioner Family | DX: R10.13 Epigastric pain (principal); K21.00 Gastro-esophageal reflux disease with esophagitis, without bleeding; R13.19 Other dysphagia; K59.01 Slow transit constipation; R14.2 Eructation; K22.0 Achalasia of cardia | CPT/HCPCS: 99212 ==

== ENCOUNTER 2023-09-16 07:14 | Outpatient (REF) | payer MEDICARE, OTHER, SELFPAY ==
--- NOTE | ~2023-09-16 | CT_ITS ---
EXAMINATION: CT CHEST WITHOUT CONTRAST CLINICAL INFORMATION: Lung nodule. COMPARISON: CT chest 06/05/2014: Increased in the size of a right lobe pulmonary nodule measuring about 5.1 x 7.8 x 8.2 mm. Differential diagnosis would include neoplasm versus mucoid impaction. One might consider some aggressive pulmonary toilet and a round of antibiotic treatment with a repeat CT scan following this to see if this clears. If not, then biopsy could be considered. TECHNIQUE: Multidetector volumetric CT imaging of the chest was done. Axial MIP volume rendering provided. Sagittal and coronal reformatted images were obtained. This CT examination was performed using dose optimization techniques as appropriate, variously including the following: *Automated exposure control *Adjustment of mA and/or kV according to patient size (this includes techniques or standardized protocols for targeted exams where dose is matched to indication/reason for exam; i.e. extremities or head) *Use of iterative reconstruction technique DLP: 113 mGy-cm FINDINGS: LUNGS: Biapical pleural-parenchymal scarring is present. Hffj-wa-faoinbmy emphysematous changes are seen (for example 3 mm lingula 5:256). López images of most of these areas have been saved. There is bronchial thickening and multiple areas of mucoid impaction simulating pulmonary nodules (for example right middle lobe 5:204). In the anterior basal segment of the right lower lobe there is a pleural-based ovoid opacity which measures 1.4 x 0.7 x 0.6 cm (5:402 and lópez images). In 2005, this was present and smaller measuring 1.0 x 0.7 x 0.6 cm by my measurements (prior 4:26). Given the slow progression of disease in just under 20 years, the benign nature of this is reinforced likely secondary to mucoid impaction. There is an additional new similar-appearing opacity next to this measuring 1.2 x 0.6 x 0.3 cm (5:403 and lópez images) which is also likely due to mucoid impaction as well. MEDIASTINUM: The mediastinum is normal. CORONARY ARTERY CALCIFICATION: Mild. PLEURA: There is no pleural effusion. No pleural mass or thickening. AXILLA: No lymphadenopathy. UPPER ABDOMEN: Hepatic and splenic granulomas are present. OSSEOUS STRUCTURES: Degenerative changes are present throughout the spine. CT/CT chest wo IV con IMPRESSION: 1. There is a 1.4 cm pleural-based opacity in the right lower lobe which has increased in size since 2004. Given the slow progression of disease in just under 20 years, the benign nature of this is reinforced, likely secondary to mucoid impaction. 2. There is an additional new opacity in the right lower lobe which is also likely due to mucoid impaction. 3. A finding concerning for malignancy is not present. Fleischner guidelines were followed.
== END 2023-09-16 07:15 | disposition home or self-care (01) ==
LOC: HO.CT 07:14
PROVIDERS: PCP Internal Medicine; Visit Provider Internal Medicine
DX: R91.1 Solitary pulmonary nodule (principal)
CPT/HCPCS: 71250

== ENCOUNTER 2023-09-18 05:28 | Emergency (ER) | payer MEDICARE, OTHER, SELFPAY ==
[2023-09-18 05:42] VITALS: BP 132/84; PULSE 101; RESP 19; TEMP 36.4; O2SAT 98; BMI 18.9
[2023-09-18 07:34] VITALS: BP 147/78; PULSE 83; RESP 18; TEMP 36.6; O2SAT 98
[2023-09-18 07:43] LABS: MANUAL DIFF FLAG NO
[2023-09-18 07:50] VITALS: BP 155/73; PULSE 86; RESP 18; TEMP 36.3; O2SAT 99
[2023-09-18 07:53] LABS: Basophils Absolute Auto 0.1 X10*3/uL (0.0-0.2); Basophils Percent Auto 1.3 % (0-2); Eosinophils Absolute Auto 0.1 X10*3/uL (0.0-0.4); Eosinophils Percent Auto 2.6 % (0-4); Hematocrit 43.8 % (37.0-47.0); Hemoglobin 14.8 g/dl (12.0-16.0); Imm Gran Abs Auto 0.01 X10*3/uL (0.00-0.03); Imm Gran Pct Auto 0.3 % (0.0-0.4); Lymphocytes Absolute Auto 0.7 X10*3/uL (1.2-4.9); Lymphocytes Percent Auto 18.6 % (20-40); Mean Corpuscular HGB Conc 33.8 g/dl (31.0-35.0); Mean Corpuscular Hemoglobin 30.9 pg (27.0-33.0); Mean Corpuscular Volume 91.4 fL (80.0-98.0); Mean Platelet Volume 10.3 fL (9.4-12.3); Monocytes Absolute Auto 0.5 X10*3/uL (0.1-1.2); Neutrophils Absolute Auto 2.6 x10*3/uL (2.0-8.3); Neutrophils Percent Auto 65.2 % (45-73); Platelet Count 155 X10*3/uL (160-400); Red Blood Count 4.79 X10*6/uL (4.20-5.50); Red Cell Distribution Width 13.5 % (11.0-16.0); White Blood Count 3.9 X10*3/uL (4.8-10.8)
[2023-09-18 08:05] LABS: Alanine Aminotransferase 30 U/L (0-31); Albumin Level 4.5 g/dL (3.5-5.0); Alkaline Phosphatase 84 U/L (39-117); Anion Gap 14 (12-20); Aspartate Amino Transferase 31 U/L (5-31); Bilirubin Direct 0.3 mg/dL (0.0-0.5); Bilirubin Total 0.8 mg/dL (0.0-1.0); Blood Urea Nitrogen 17 mg/dL (9-16); Calcium 10.3 mg/dL (8.4-10.2); Carbon Dioxide 28 mmol/L (22-29); Chloride 106 mmol/L (96-108); Creatinine Clr Calc Pharmacy 51.6; Estimated Glomerular Filt Rate > 60; Glucose Random 103 mg/dL (60-115); Lipase 22 U/L (8-78); Sodium 145 mmol/L (135-145)
--- NOTE | 2023-09-18 08:15 | ED.GENADULT ---
HPI - General Adult General Chief complaint: General Medical Stated complaint: mucus in the throat/unable to clear it Time Seen by Provider: 09/18/23 08:15 Source: patient Mode of arrival: ambulatory Limitations: no limitations History of Present Illness ED Provider: DR. Vazuqez. HPI narrative: 83-year-old female with history of difficulty swallowing due to achalasia that the patient follow with gastroenterology for it, patient had a recent EGD since then patient had increase choking on food, belching and burping more, patient has an appointment with GI early this week for re-evaluation and patient is scheduled to have a barium swallow test and repeat the upper endoscopy. Patient was started on Voquezna by the GI and patient reported some improvement. Last night patient ate fish and rice, able to swallow liquids and swallow her own saliva however feels thick mucus is stuck in her throat. In the ED patient is able to drink water with no regurgitation. No CP, no SOB, patient has been experiencing those symptoms since she had the upper endoscopy. Related Data Home Medications ?Medication ?Instructions ?Recorded ?Confirmed lisinopril 5 mg tablet 5 mg PO DAILY 02/07/21 07/09/23 rosuvastatin 40 mg tablet 40 mg PO DAILY 02/07/21 07/09/23 omeprazole 40 mg capsule,delayed 40 mg PO DAILY 09/14/23 release Previous Rx's ?Medication ?Instructions ?Recorded pyridoxine (vitamin B6) 50 mg 50 mg PO DAILY 90 days #90 tabs 07/06/23 tablet sucralfate 100 mg/mL oral 10 ml PO BID #400 mL 07/15/23 suspension simethicone 125 mg chewable tablet 125 mg PO BID-TID PRN abdominal 09/14/23 (Gas Relief (simethicone)) distention #90 tabs vonoprazan 20 mg tablet (Voquezna) 20 mg PO DAILY #14 tabs 09/14/23 Allergies Allergy/AdvReac Type Severity Reaction Status Date / Time cephalexin [From KEFLEX] Allergy Severe RASH Verified 09/18/23 05:49 Sulfa (Sulfonamide Allergy Severe INTSERNAL Verified 09/18/23 05:49 Antibiotics) AND [SULFA (SULFONAMIDE EXTERNAL ANTIBIOTICS)] RASH/INFECTION Iodinated Contrast Media Allergy Intermediate HIVES,REDNESS Verified 09/18/23 05:49 [IV Dye, Iodine Containing] + SWELLING sulfamethoxazole Allergy Intermediate INTERNAL Verified 09/18/23 05:49 [From BACTRIM] AND EXTERNAL RASH/ INFECTION stent Allergy Vomiting Uncoded 09/18/23 05:49 Review of Systems Review of Systems: All other systems are reviewed and are negative Constitutional: Reports as per HPI and Reports no additional constitutional complaints Eyes: Reports as per HPI and Reports no additional eye complaints Reports system reviewed and no additional complaints, except as documented Cardiovascular: Reports as per HPI and Reports no additional cardiovascular complaints Respiratory: Reports as per HPI and Reports no additional respiratory complaints Gastrointestinal: Reports as per HPI and Reports no additional gastrointestinal complaints Genitourinary: Reports no additional female genitourinary complaints Musculoskeletal: Reports no additional musculoskeletal complaints Skin/Breast: Reports system reviewed and no additional complaints, except as docu Psychiatric: Reports no additional psychiatric complaints Endocrine: Reports no additional endocrine complaints Hematologic/Lymphatic: Reports no additional hematologic/lymphatic complaints Allergic/Immunologic: Reports no additional allergic/immunologic complaints Reports system reviewed and no additional complaints, except as documented and Reports Abnormal speech present. [facility] Past Medical History Surgical History H/O esophagogastroduodenoscopy (07/09/23) Social History Social History Alcohol intake: never Patient Tobacco Use Status: Never used Tobacco Smoked in Last 30 Days: No Use of substances other than those prescribed or required for medical reasons: No Advance Directives: No Advance Directives Information Provided: No Do you have a plan to hurt others: No Plan Physical Exam ED Vital Signs: Vital Signs - 24 hr 09/18/23 05:42 09/18/23 07:34 09/18/23 07:50 Temperature 97.5 F 98 F 97.4 F Pulse Rate 101 H 83 86 Respiratory Rate 19 18 18 Blood Pressure 132/84 147/78 H 155/73 H Pulse Oximetry 98 98 99 Oxygen Delivery Method Room Air Room Air Room Air BMI result Body Mass Index 18.9 Vital signs have been reviewed and appear to be correct. Blood pressure elevated. Heart rate normal. Respiratory rate normal. Temperature normal. Oxygen saturation normal. Appearance: Alert. Oriented X3. No acute distress. Head: Normal external exam. Normocephalic. Atraumatic. No Hooks signs noted. No raccoon eyes noted Eyes: PERRLA. EOMI. Conjunctiva and sclera normal. Eyelids normal. ENT: TM's Normal. Pharynx normal. Uvula midline. Moist mucous membranes. No trismus noted. No drooling noted. No muffled voice noted. Neck: Normal inspection. Neck supple. FROM. No adenopathy. Thyroid Normal. No meningeal signs. No neck mass noted. CVS: Normal heart rate and rhythm. Heart sound normal. No murmurs noted. Pulses normal throughout. Respiratory: No respiratory distress. Painless inspiration. Breath sounds normal. No wheezes/rales/rhonchi noted. Chest nontender. No accessory muscle usage noted or decreased air movement noted. Abdomen: Soft and nontender. Bowel sounds normal in all 4 quadrants. No distention noted. No organomegaly noted. No visible injury noted. Back: No CVA tenderness. Full range of motion noted. Skin: Skin warm and dry. Normal skin color. Normal skin turgor. No rashes/lesions/lacerations noted. Extremities: No lower extremity edema. Extremities exhibit normal range of motion. Extremities nontender. Neuro: Oriented X 3. Cranial nerve exam: II-XII are grossly intact No motor deficit. No sensory deficit. Reflexes normal. Course Reevaluation(s) Reevaluation #1: 83-year-old female with history of achalasia follow-up with Dr. Hudson/betty have an appointment on Wednesday, patient had a recent upper endoscopy that patient thinks that her symptoms is worsening since then, in the ED patient is able to swallow liquids with no regurgitation. Patient was instructed to take puree and clear diet avoid any solid food until sees Dr. Hudson. Otherwise to continue with her medication. Patient feels better after was given Protonix IV and Maalox p.o.. Hypokalemia will replete orally. Time: 10:54 Medications Administered Discontinued Medications Generic Name Dose Route Start Last Admin Trade Name Freq PRN Reason Stop Dose Admin Al Hydroxide/Mg Hydroxide 30 ml 09/18/23 08:27 09/18/23 09:22 Magnesium Hydrox/Alum Hydrox 30 Ml Oral.Susp PO 09/18/23 08:28 30 ml ONCE ONE Administration Sodium Chloride 1,000 mls @ 999 mls/hr 09/18/23 08:27 09/18/23 09:25 Ns IV 09/18/23 09:27 999 mls/hr .Q1H1M ONE Administration Pantoprazole Sodium 40 mg 09/18/23 08:27 09/18/23 09:23 Pantoprazole Sodium 40 Mg/10 Ml Vial IVPUSH 09/18/23 08:28 40 mg ONCE ONE Administration Medical Decision Making Differential Diagnosis Differential Diagnoses: The differential diagnosis associated with the presentation includes (Food stuck in the esophagus, achalasia, electrolyte derangement, severe anemia, esophagitis, gastritis.) Admission/Observation Consideration of admission/observation: Escalation of care including admission/observation considered Lab Data MDM Lab Attestation statement: I reviewed the patient's lab results. 09/18/23 07:39 09/18/23 07:39 Labs: Lab Results 09/18/23 Range/Units 07:39 WBC 3.9 L (4.8-10.8) X10*3/uL RBC 4.79 (4.20-5.50) X10*6/uL Hgb 14.8 (12.0-16.0) g/dl Hct 43.8 (37.0-47.0) % MCV 91.4 (80.0-98.0) fL MCH 30.9 (27.0-33.0) pg MCHC 33.8 (31.0-35.0) g/dl RDW 13.5 (11.0-16.0) % Plt Count 155 L (160-400) X10*3/uL MPV 10.3 (9.4-12.3) fL Immature Gran % (Auto) 0.3 (0.0-0.4) % Neut % (Auto) 65.2 (45-73) % Lymph % (Auto) 18.6 L (20-40) % Geary % (Auto) 12.0 H (2-11) % Eos % (Auto) 2.6 (0-4) % Baso % (Auto) 1.3 (0-2) % Lymph # (Auto) 0.7 L (1.2-4.9) X10*3/uL Geary # (Auto) 0.5 (0.1-1.2) X10*3/uL Eos # (Auto) 0.1 (0.0-0.4) X10*3/uL Baso # (Auto) 0.1 (0.0-0.2) X10*3/uL Abs Immat Gran (auto) 0.01 (0.00-0.03) X10*3/uL Absolute Neuts (auto) 2.6 (2.0-8.3) x10*3/uL Absolute Nucleated RBC 0.000 (0.0-0.012) X10*3/uL Nucleated RBC % (auto) 0.0 (0.0-0.2) /100WBC Sodium 145 (135-145) mmol/L Potassium 3.0 L D (3.3-5.1) mmol/L Chloride 106 (96-108) mmol/L Carbon Dioxide 28 (22-29) mmol/L Anion Gap 14 (12-20) BUN 17 H (9-16) mg/dL Creatinine 0.72 (0.5-1.4) mg/dL Estim Creat Clear Calc 51.6 Estimated GFR > 60 Random Glucose 103 (60-115) mg/dL Calcium 10.3 H (8.4-10.2) mg/dL Total Bilirubin 0.8 (0.0-1.0) mg/dL Direct Bilirubin 0.3 (0.0-0.5) mg/dL AST 31 (5-31) U/L ALT 30 (0-31) U/L Alkaline Phosphatase 84 (39-117) U/L Total Protein 7.0 (6.5-8.0) g/dL Albumin 4.5 (3.5-5.0) g/dL Lipase 22 (8-78) U/L Discharge Plan Discharge Clinical Impression: Achalasia of esophagus, Hypokalemia Patient Disposition: Home, Self-Care Additional Instructions: Keep your diet puree/soft food. Avoid red meat/check-in solid food. chew food very well before swallowing. Prescriptions: No Action sucralfate 100 mg/mL suspension 10 ml PO BID Qty: 400 3RF Rx Instructions: Please take it at noon time and at bedtime Voquezna 20 mg tablet 20 mg PO DAILY Qty: 14 0RF rosuvastatin 40 mg tablet 40 mg PO DAILY lisinopril 5 mg tablet 5 mg PO DAILY pyridoxine (vitamin B6) 50 mg tablet 50 mg PO DAILY 90 Days Qty: 90 1RF omeprazole 40 mg capsule,delayed release(DR/EC) 40 mg PO DAILY simethicone [Gas Relief (simethicone)] 125 mg tablet,chewable 125 mg PO BID-TID PRN (Reason: abdominal distention) Qty: 90 3RF Referrals: Alton Durham MD [Primary Care Provider] - Print Language: Slovak
[2023-09-18] MEDS: Magnesium Hydrox/Alum Hydrox 30 ML ORAL.SUSP PO (09:22)
[2023-09-18] MEDS: Pantoprazole Sodium 40 MG/10 ML VIAL IVPUSH (09:23)
[2023-09-18] MEDS: 0.9 % Sodium Chloride 1,000 ML 999 ML IV (09:25)
--- NOTE | 2023-09-18 09:26 | PC.NURSE ---
Pt presents to ED from home, reports since dinner last night has had an increase in burping and feels mucous stuck in her throat. Has been burping and walking around to relieve the discomfort. Pt has a hx of esophagus issues, takes prilosec at home with no relief. Pt worried she was going to choke on mucous so she came to ER. Pt reports mild discomfort in her throat 06/12. Denies CP, SOB, N/V/D, fevers. Alert and oriented, breathing even and unlabored, skin WNL. Pt noted to have frequent burping, needs to sit upright
[2023-09-18] MEDS: Potassium Chloride Packet 20 MEQ PACKET 40 MEQ PO (11:19)
[2023-09-18 12:42] VITALS: BP 149/68; PULSE 75; RESP 16; TEMP 36.3; O2SAT 98
== END 2023-09-18 12:43 | disposition home or self-care (01) ==
PROVIDERS: Emergency Provider Emergency Medicine; PCP Internal Medicine
DX: K22.0 Achalasia of cardia (principal); E87.6 Hypokalemia; R13.10 Dysphagia, unspecified; R14.2 Eructation; Z79.899 Other long term (current) drug therapy
CPT/HCPCS: 36415; 80048; 80076; 83690; 85025; 96360; 96361; 99284; C9113

== ENCOUNTER 2023-09-21 11:17 | Outpatient (REF) | payer MEDICARE, OTHER, SELFPAY | END 2023-09-21 11:18 | disposition home or self-care (01) | LOC: HO.LAB 11:17 | PROVIDERS: PCP Internal Medicine; Visit Provider Nurse Practitioner Family | DX: K59.01 Slow transit constipation (principal); K22.0 Achalasia of cardia; K21.9 Gastro-esophageal reflux disease without esophagitis; R13.19 Other dysphagia; E87.6 Hypokalemia; R21 Rash and other nonspecific skin eruption; R10.13 Epigastric pain; R14.2 Eructation; J31.0 Chronic rhinitis | CPT/HCPCS: 36415; 84132; 99212 ==

== ENCOUNTER 2023-09-21 11:17 | Outpatient (AMB) | payer MEDICARE, OTHER, SELFPAY ==
--- NOTE | 2023-09-21 11:20 | MHC.OFFVIS ---
Vital Signs 09/21/23 11:21 Height 5 ft 8 in Weight 126 lb BMI 19.2 BP 125/63 Blood Pressure Location Lt brachial Position Sitting Pulse 76 Intake Visit Reasons: follow up difficulty swallowing Intake Note: Maureen presents in the office as a follow up for difficulty swallowing. Patient cc: difficulty swallowing, acid reflex with throat irritation.Denies any other GI issues. Sourcing Analyst Required: No Accompanied by: Self / Same As Patient Allergies cephalexin [From KEFLEX] Allergy (Severe, Verified 09/21/23 11:41) RASH Sulfa (Sulfonamide Antibiotics) [SULFA (SULFONAMIDE ANTIBIOTICS)] Allergy (Severe, Verified 09/21/23 11:41) INTSERNAL AND EXTERNAL RASH/INFECTION Iodinated Contrast Media [IV Dye, Iodine Containing] Allergy (Intermediate, Verified 09/21/23 11:41) HIVES,REDNESS + SWELLING sulfamethoxazole [From BACTRIM] Allergy (Intermediate, Verified 09/21/23 11:41) INTERNAL AND EXTERNAL RASH/ INFECTION stent Allergy (Uncoded 09/21/23 11:21) Vomiting HPI HPI follow up difficulty swallowing: Details: LAST VISIT: Epigastric pain Postprandial epigastric pain GERD (gastroesophageal reflux disease) Dysphagia Dyspepsia Constipation Belching symptom Achalasia Plan Will try to get Voquezna for patient to treat erosive esophagitis. Discuss this with Dr. Hudson and ideally patient should go for esophageal manometry to further evaluate. However we will send patient for barium swallow to reassess. Patient has been treated for 2 months and should have improvement. Will schedule appointment with Dr. Hudson after for possible salivary or pneumonic dilation of the GE junction before proceeding with surgery given her age. Heller myotomy might not be necessary at this time. We will be discussing this case with Dr. Stevens bariatric surgeon. Patient's symptoms most likely are related to her severe acid reflux. Modified barium swallow not appropriate test at this time as patient's symptoms are at the lower part of esophagus. Symptoms happened occasionally and mostly severe belching with reflux coming up to her throat. Will send script for simethicone chewable tablets. Patient is unable to swallow capsules. I will see her in 1-2 weeks to re-evaluate her treatment with Voquezna. Long discussion with patient about the plan of care. Patient is agreeable at this time and verbalizes understanding of instructions. She was given the opportunity to ask questions and all questions answered. ? Thank you for allowing me to participate in her care Medications New simethicone (Gas Relief (simethicone)) 125 mg PO BID-TID PRN 90 tabs 3RF abdominal distention TODAY'S VISIT Patient is here today for follow-up. Patient was on Voquezna started last week for 3 days and her symptoms have gone away, however she develop rash during the night on her arms. Patient reports that the rash were spotty like rash not all over her body or her trunk. Patient had no shortness of breath. We discuss on the phone patient trying to stop the medication and restarting it on Wednesday. Patient reports that she was feeling fine on Wednesday, ate fish and Wednesday morning patient woke up with severe phlegm inability to burp. Patient reports that she was able to swallow, however because she was unable to burp she was afraid that the phlegm would be coming up and she was going to choke. Patient called the ambulance and patient was brought to the ER. No acute findings. Patient was able to tolerate liquids when she was in the ER. Patient states that after burping she felt fine. Patient was sent home and was told to do clear liquids. Yesterday patient took Voquezna as well as this morning and patient states that she slept fine and had no mucus coming up. Patient was able to swallow well. States that had coached eggs with Ukrainian toast this morning. Patient denies any dyspepsia or dysphagia. However patient does seem very concern about her swallowing and coming off the bulk was a. Patient while in the ER had low potassium 3.0 and was given potassium supplement. Hypokalemia is not associated with Voquezna [facility] Surgical History H/O esophagogastroduodenoscopy (07/09/23) Social History Alcohol intake: never Patient Tobacco Use Status: Never used Tobacco Review of Systems Const Denies weight gain and Denies weight loss ENT Reports no additional complaints, Reports dysphagia and Denies odynophagia Card Reports no additional complaints Resp Reports no additional complaints GI Denies abdominal pain, Reports belching (Inability), Denies melena, Reports bloating, Denies change in bowel habits, Reports dysphagia, Denies excessive flatus, Denies dyspepsia, Reports heartburn, Denies diarrhea, Denies loose stools, Denies nausea, Denies odynophagia and Denies vomiting Reports no additional complaints Musc Reports no additional complaints Neuro Reports no additional complaints Psych Reports no additional complaints Endo Reports no additional complaints Physical Exam Vital Signs: Last Vital Signs Pulse 76 09/21/23 11:21 BP 125/63 09/21/23 11:21 BMI result Body Mass Index 19.2 Const General: healthy appearing and no acute distress Orientation/consciousness: patient oriented x3 Resp Effort & Inspection: normal respiratory effort, able to speak in complete sentences, no tracheal deviation and symmetric chest movement Auscultation: clear to auscultation bilaterally Cardio Rate: regular rate GI Inspection: Yes normal to inspection and No distended Palpation (GI): Soft to palpation, not firm, nontender and No hepatosplenomegaly present Auscultation: normal bowel sounds General: Yes no CVA tenderness Back/Spine/Pelvis Back: no CVA tenderness Skin General skin exam: elasticity normal, turgor normal and dry skin Neuro General: patient oriented x3 Psych Appearance: grossly normal Mental Status: mental status grossly normal Assessment & Plan Assessment & Plan (1) Epigastric pain: Code(s): R10.13 - Epigastric pain Category: Medical (2) Postprandial epigastric pain: Code(s): R10.13 - Epigastric pain (3) GERD (gastroesophageal reflux disease): Code(s): K21.9 - Gastro-esophageal reflux disease without esophagitis Qualifiers: Esophagitis presence: esophagitis presence not specified Qualified Code(s): K21.9 - Gastro-esophageal reflux disease without esophagitis (4) Dysphagia: Code(s): R13.10 - Dysphagia, unspecified Qualifiers: Dysphagia type: esophageal phase Qualified Code(s): R13.19 - Other dysphagia (5) Dyspepsia: Code(s): R10.13 - Epigastric pain (6) Constipation: Code(s): K59.00 - Constipation, unspecified Qualifiers: Constipation type: slow transit constipation Qualified Code(s): K59.01 - Slow transit constipation (7) Belching symptom: Code(s): R14.2 - Eructation (8) Achalasia: Code(s): K22.0 - Achalasia of cardia Plan Patient will continue Voquezna. She has been doing well on it. Patient will take Zyrtec at bedtime hopefully that will help her with mucus. High potassium diet. Recheck potassium level today. Patient is going to be scheduled for tomorrow for upper endoscopy with Dr. Hudson. Patient reports that when she drink sucralfate pain goes away, however mucus might be getting worse. She will only take it at night time. I will see patient after the procedure, sooner on as needed basis. She is agreeable to this plan and verbalizes understanding of instructions. She was given the opportunity to ask questions and all questions answered. Thank you for allowing me to participate in her care Orders: Orders Potassium Today E87.6 - Hypokalemia Medications: New cetirizine (Zyrtec) 10 mg PO BEDTIME 30 tabs 1RF allergy symptoms J31.0 - Chronic rhinitis Changed From sucralfate Please take it at noon time and at bedtime 10 mL PO BID 400 mL 3RF K21.9 - Gastro-esophageal reflux disease without esophagitis To sucralfate Please take it at noon time and at bedtime 10 mL PO BEDTIME 400 mL 3RF K21.9 - Gastro-esophageal reflux disease without esophagitis Coding Level of Care Code Est Pt Level 5 (77530) Diagnoses Epigastric pain R10.13 Postprandial epigastric pain R10.13 Gastroesophageal reflux disease, unspecified whether esophagitis present K21.9 Esophagitis presence: esophagitis presence not specified Esophageal dysphagia R13.19 Dysphagia type: esophageal phase Dyspepsia R10.13 Slow transit constipation K59.01 Constipation type: slow transit constipation Belching symptom R14.2 Achalasia K22.0 Time Spent (min) 40 Comment 25 minutes spent with patient and additional 15 minutes spent reviewing her records
[2023-09-21 11:21] VITALS: BP 125/63; PULSE 76; BMI 19.2
== END 2023-09-21 12:25 | disposition home or self-care (01) ==
PROVIDERS: PCP Internal Medicine; Visit Provider Nurse Practitioner Family
DX: K21.9 Gastro-esophageal reflux disease without esophagitis (principal); R13.19 Other dysphagia; K59.01 Slow transit constipation; R14.2 Eructation; K22.0 Achalasia of cardia
CPT/HCPCS: 99214

== ENCOUNTER 2023-09-22 10:18 | Day surgery (SDC) | payer MEDICARE, OTHER, SELFPAY ==
--- NOTE | 2023-09-22 10:06 | HO.ANESPROP2 ---
[facility] Active Problems Active Problems: All Active Problems Epigastric pain (Acute) Facial bruising (Acute) Right ankle injury (Acute) Nephrolithiasis (Acute) Past Medical History Medical History (Updated 09/22/23 @ 11:09 by Ghazala Gutierrez RN) Kidney stone GERD (gastroesophageal reflux disease) High cholesterol HTN (hypertension) Family History Family history of problems with anesthesia: No Surgical History Surgical History (Updated 09/22/23 @ 11:09 by Ghazala Gutierrez RN) H/O lithotripsy H/O esophagogastroduodenoscopy (07/09/23) History of Problems with Anesthesia: No Social History Social History Alcohol intake: never Patient Tobacco Use Status: Never used Tobacco Use of substances other than those prescribed or required for medical reasons: No Are you DNR?: No Advance Directives: No Advance Directives Information Provided: Yes Meds Allergies Allergy/AdvReac Type Severity Reaction Status Date / Time cephalexin [From KEFLEX] Allergy Severe RASH Verified 09/21/23 11:41 Sulfa (Sulfonamide Allergy Severe INTSERNAL Verified 09/21/23 11:41 Antibiotics) AND [SULFA (SULFONAMIDE EXTERNAL ANTIBIOTICS)] RASH/INFECTION Iodinated Contrast Media Allergy Intermediate HIVES,REDNESS Verified 09/21/23 11:41 [IV Dye, Iodine Containing] + SWELLING sulfamethoxazole Allergy Intermediate INTERNAL Verified 09/21/23 11:41 [From BACTRIM] AND EXTERNAL RASH/ INFECTION stent Allergy Vomiting Uncoded 09/22/23 11:09 Home Medications ?Medication ?Instructions ?Recorded ?Confirmed ?Last Taken ?Type lisinopril 5 mg tablet 5 mg PO DAILY 02/07/21 07/09/23 Unknown History rosuvastatin 40 mg tablet 40 mg PO DAILY 02/07/21 07/09/23 Unknown History Exam Airway Mallampati Class: II TM Dist: >3cm Neck ROM: Full Heart: rrr Lungs: cta Assessment and Plan Assessment Anesthesia Assessment: Anesthesia Plan Discussed and Chart Reviewed Final Anesthetic Review Family History of Problems with Anesthesia: No History of Problems with Anesthesia: No NPO: Yes ASA Class: II Final Preanesthetic Review: No Changes in Pt Med Stat, Meds/Allgs Chart Reviewed and Consent Obtained/Reviewed Patient Risk: Intermediate Procedure Risk: Intermediate Anesthetic Plan Anesthetic Plan: MAC: Disposition: Standard PACU
[2023-09-22 11:15] VITALS: BMI 19.7
[2023-09-22 11:35] VITALS: BP 157/69; PULSE 75; RESP 16; TEMP 36.3; O2SAT 99
--- NOTE | 2023-09-22 11:38 | P.HPSUR_ITS ---
Pre-Procedural Eval Section A - 24 Hr Update-Section A only Date of Service: 09/22/23 Section B - Complete if H&P > 30 days Chief Complaint: Gastro-esophageal reflux disease without esophagit Relevant Family History (Specify if Yes): No Relevant Social History: None Present Medications: see Short Stay Collaborative assessment Medical History: Significant History (Kidney stone GERD (gastroesophageal reflux disease) High cholesterol HTN (hypertension)) History of Previous Operations: Relevant previous surgery/procedure and date(s) ( H/O lithotripsy H/O esophagogastroduodenoscopy (07/09/23)) Allergies: Allergies Allergy/AdvReac Type Severity Reaction Status Date / Time cephalexin [From KEFLEX] Allergy Severe RASH Verified 09/21/23 11:41 Sulfa (Sulfonamide Allergy Severe INTSERNAL Verified 09/21/23 11:41 Antibiotics) AND [SULFA (SULFONAMIDE EXTERNAL ANTIBIOTICS)] RASH/INFECTION Iodinated Contrast Media Allergy Intermediate HIVES,REDNESS Verified 09/21/23 11:41 [IV Dye, Iodine Containing] + SWELLING sulfamethoxazole Allergy Intermediate INTERNAL Verified 09/21/23 11:41 [From BACTRIM] AND EXTERNAL RASH/ INFECTION stent Allergy Vomiting Uncoded 09/22/23 11:09 Review of Systems Sugical H&P ROS: Negative: Constitution, Cardiovascular, Respiratory, Neurological, Psychiatric, Hem-Onc, Allergic/Immunologic, Gastrointestinal, Genitourinary, Musculoskeletal, Integumentary, Endocrine and Eyes/Ears/Nose /Throat Exam Surgical H&P Exam: Normal: HEENT, Normal: Heart, Normal: Lungs, Normal: Extremities, Normal: Abdomen, Normal: Skin and Normal: Neurological Plan Diagnosis/Plan: Unchanged I have reviewed the history and physical and performed a pertinent physical examination on my patient. No changes have occurred unless specified. Time Spent With Patient Time: Total time managing care of this patient today ____ minutes.
--- NOTE | 2023-09-22 11:48 | W.PM.OPN ---
Operative Note Operative Note Date of Service: 09/22/23 Narrative: Procedure Description: EGD Indication: dysphagia -abn ba swallow Anesthesia: MAC FLEXIBLE TRANSORAL UPPER GASTROINTESTINAL ENDOSCOPY UPPER ENDOSCOPY Consent: Indications for the procedure and potential complications of bleeding, perforation, reaction to medications and missed diagnosis were discussed with the patient and informed consent was obtained. Instrument: Olympus GIF H 190 J mid size upper endoscope Monitoring: Vital signs and clinical assessment, continuous EKG monitoring, Pulse oximetry, Carbon Dioxide monitoring and blood pressure monitoring were done throughout the procedure. Procedure: The patient was placed in the left lateral decubitis position and pre-procedure medications were administered and a bite block was placed. The endoscope was inserted into the mouth and advanced under direct vision to the third part of duodenum. A careful inspection was made as the upper endoscope was withdrawn including a retroflexed examination of the proximal stomach; Findings and interventions are described below. Findings: Larynx:normal Esophagus: GE junction at 40 cm, diaphragm hiatus at 40 cm, schatzki ring noted with tertiary contractions, savary wire guided dilation done with 16 mm bougie, no tears seen. small papilloma noted in distal esophagus removed with cold forceps, bx taken from GEJ, distal and proximal esophagus Stomach: benign fundic gland polyps noted. Mild erythema, Biopsies were obtained. Grade 2 flap valve on retroflexed examination of the cardia. 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
[2023-09-22 12:15] VITALS: BP 119/49; PULSE 70; RESP 16; TEMP 36.3; O2SAT 98
[2023-09-22 12:30] VITALS: BP 119/60; PULSE 71; RESP 17; O2SAT 97
[2023-09-22 12:45] VITALS: BP 130/58; PULSE 68; RESP 17; TEMP 36.7; O2SAT 99
== END 2023-09-22 13:47 | disposition home or self-care (01) ==
PROVIDERS: PCP Internal Medicine; Visit Provider Internal Medicine Gastroenterology
PROC: 0DJ08ZZ Inspection of Upper Intestinal Tract, Via Natural or Artificial Opening Endoscopic (ICD-10-PCS; CPT 43235; principal; 2023-09-22 13:10)
DX: D13.0 Benign neoplasm of esophagus (principal); K31.7 Polyp of stomach and duodenum; K29.70 Gastritis, unspecified, without bleeding; K22.2 Esophageal obstruction; K22.4 Dyskinesia of esophagus; K21.9 Gastro-esophageal reflux disease without esophagitis; E78.5 Hyperlipidemia, unspecified; I10 Essential (primary) hypertension; Z79.02 Long term (current) use of antithrombotics/antiplatelets; Z79.899 Other long term (current) drug therapy
CPT/HCPCS: 43248; 43239; 88305; 88313; 88342; C1769; J2704

== ENCOUNTER → 2023-09-22 10:18 | Outpatient (BNV) | payer MEDICARE, OTHER, SELFPAY | PROVIDERS: PCP Internal Medicine; Visit Provider Internal Medicine Gastroenterology | DX: R13.10 Dysphagia, unspecified (principal); R93.3 Abnormal findings on diagnostic imaging of other parts of digestive tract; K22.2 Esophageal obstruction; K31.7 Polyp of stomach and duodenum; D13.0 Benign neoplasm of esophagus | CPT/HCPCS: 43239; 43248 ==

== ENCOUNTER 2023-09-28 11:06 | Outpatient (REF) | payer MEDICARE, OTHER, SELFPAY ==
[2023-09-28 12:43] LABS: Calcium 10.4 mg/dL (8.4-10.2); Magnesium 1.9 mg/dL (1.6-2.6)
[2023-09-28 13:24] LABS: Potassium 2.8 mmol/L (3.3-5.1)
== END 2023-09-28 11:07 | disposition home or self-care (01) ==
LOC: HO.LAB 11:06
PROVIDERS: Visit Provider Nurse Practitioner Family
DX: R10.13 Epigastric pain (principal); E87.6 Hypokalemia; K21.9 Gastro-esophageal reflux disease without esophagitis
CPT/HCPCS: 36415; 82310; 83735; 84132

== ENCOUNTER 2023-09-29 09:39 | Outpatient (AMB) | payer MEDICARE, OTHER, SELFPAY ==
--- NOTE | 2023-09-29 09:39 | A.OFFVIS_ITS ---
Vital Signs 09/29/23 09:44 Height 5 ft 8 in Weight 123 lb 7.342 oz BMI 18.8 BP 136/75 Blood Pressure Location Lt brachial Position Sitting Pulse 90 Intake Visit Reasons: follow up for EGD Intake Note: Maureen presents in the office as a follow up EGD. CC: HEre for results - she is having issues with her stomach. Allergies cephalexin [From KEFLEX] Allergy (Severe, Verified 09/29/23 09:45) RASH Sulfa (Sulfonamide Antibiotics) [SULFA (SULFONAMIDE ANTIBIOTICS)] Allergy (Severe, Verified 09/29/23 09:45) INTSERNAL AND EXTERNAL RASH/INFECTION Iodinated Contrast Media [IV Dye, Iodine Containing] Allergy (Intermediate, Verified 09/29/23 09:45) HIVES,REDNESS + SWELLING sulfamethoxazole [From BACTRIM] Allergy (Intermediate, Verified 09/29/23 09:45) INTERNAL AND EXTERNAL RASH/ INFECTION stent Allergy (Uncoded 09/29/23 09:45) Vomiting HPI HPI follow up for EGD: Details: LAST VISIT Epigastric pain Postprandial epigastric pain GERD (gastroesophageal reflux disease) Dysphagia Dyspepsia Constipation Belching symptom Achalasia Plan Patient will continue Voquezna. She has been doing well on it. Patient will take Zyrtec at bedtime hopefully that will help her with mucus. High potassium diet. Recheck potassium level today. Patient is going to be scheduled for tomorrow for upper endoscopy with Dr. Hudson. Patient reports that when she drink sucralfate pain goes away, however mucus might be getting worse. She will only take it at night time. I will see patient after the procedure, sooner on as needed basis. She is agreeable to this plan and verbalizes understanding of instructions. She was given the opportunity to ask questions and all questions answered. ? Thank you for allowing me to participate in her care Orders Orders Potassium Today E87.6 Medications New cetirizine (Zyrtec) 10 mg PO BEDTIME 30 tabs 1RF allergy symptoms J31.0 Changed Changed From sucralfate Please take it at noon time and at bedtime 10 mL PO BID 400 mL 3RF K21.9 Changed To sucralfate Please take it at noon time and at bedtime 10 mL PO BEDTIME 400 mL 3RF K21.9 UPPER ENDOSCOPY Findings: Larynx:normal Esophagus: GE junction at 40 cm, diaphragm hiatus at 40 cm, schatzki ring noted with tertiary contractions, savary wire guided dilation done with 16 mm bougie, no tears seen. small papilloma noted in distal esophagus removed with cold forceps, bx taken from GEJ, distal and proximal esophagus Stomach: benign fundic gland polyps noted. Mild erythema, Biopsies were obtained. Grade 2 flap valve on retroflexed examination of the cardia. 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 Patient states that she is taking vonoprazan every morning, however occasionally specially after dinner she will have severe acid reflux, belching. Patient states that her made meat balls from ground beef with eggs and milk and she had severe belching last night. Patient is taking sucralfate in the afternoon and at bedtime. Patient has not started taking famotidine that was recommended by Dr. Hudson and we will be discussing with the patient that today. Long discussion with Dr. Hudson about treatment for this patient that will require medication adjustment as well as patience on her part. Discussed with patient how frustrated she is feeling and wants to get better. Dilation performed up to 16 mm of distal esophagus. Severe inflammation seen. [facility] Medical History (Updated 09/22/23 @ 11:09 by Ghazala Gutierrez RN) Kidney stone GERD (gastroesophageal reflux disease) High cholesterol HTN (hypertension) Surgical History (Updated 09/22/23 @ 11:09 by Ghazala Gutierrez RN) H/O lithotripsy H/O esophagogastroduodenoscopy (07/09/23) Social History Alcohol intake: never Patient Tobacco Use Status: Never used Tobacco Review of Systems Const Denies weight gain and Denies weight loss ENT Reports no additional complaints, Denies dysphagia and Denies odynophagia Card Reports no additional complaints Resp Reports no additional complaints GI Reports abdominal pain (EPIGASTRIC), Reports belching, Denies melena, Reports bloating, Denies change in bowel habits, Denies dysphagia, Denies excessive flatus, Denies dyspepsia, Reports heartburn, Denies diarrhea, Denies loose stools, Reports nausea, Denies odynophagia and Denies vomiting Reports no additional complaints Musc Reports no additional complaints Neuro Reports no additional complaints Psych Reports no additional complaints Endo Reports no additional complaints Physical Exam Vital Signs: Last Vital Signs Pulse 90 09/29/23 09:44 BP 136/75 09/29/23 09:44 BMI result Body Mass Index 18.8 Const General: healthy appearing and no acute distress Orientation/consciousness: patient oriented x3 Resp Effort & Inspection: normal respiratory effort, able to speak in complete sentences, no tracheal deviation and symmetric chest movement Auscultation: clear to auscultation bilaterally Cardio Rate: regular rate GI Inspection: Yes normal to inspection and No distended Palpation (GI): Soft to palpation, not firm, nontender and No hepatosplenomegaly present Auscultation: normal bowel sounds General: Yes no CVA tenderness Back/Spine/Pelvis Back: no CVA tenderness Skin General skin exam: elasticity normal, turgor normal and dry skin Neuro General: patient oriented x3 Psych Appearance: grossly normal Mental Status: mental status grossly normal Assessment & Plan Assessment & Plan (1) Epigastric pain: Code(s): R10.13 - Epigastric pain Category: Medical (2) Postprandial epigastric pain: Code(s): R10.13 - Epigastric pain (3) GERD (gastroesophageal reflux disease): Code(s): K21.9 - Gastro-esophageal reflux disease without esophagitis Qualifiers: Esophagitis presence: with esophagitis Esophagitis bleeding: without hemorrhage Qualified Code(s): K21.00 - Gastro-esophageal reflux disease with esophagitis, without bleeding (4) Dysphagia: Code(s): R13.10 - Dysphagia, unspecified Qualifiers: Dysphagia type: esophageal phase Qualified Code(s): R13.19 - Other dysphagia (5) Dyspepsia: Code(s): R10.13 - Epigastric pain (6) Constipation: Code(s): K59.00 - Constipation, unspecified Qualifiers: Constipation type: chronic idiopathic constipation Qualified Code(s): K59.04 - Chronic idiopathic constipation (7) Belching symptom: Code(s): R14.2 - Eructation (8) 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 Sucralfate 2 hours after lunch. Famotidine 40 mg at bedtime. Avoid eating beef patient can do chicken meat bolus instead. Patient will get protein powder and try to make shakes in order to gain weight. Start taking potassium supplement with breakfast. Increase food high in potassium in her diet. Increasing potassium will also help her symptoms. Long discussion with patient about the importance of trying to take the medication and being patient with treatment. Patient never been on PPI in the past and there is definitely a damage in the esophagus that needs to be repaired with vonoprazan and H2 jose francisco. If she continues to have symptoms we can add low-dose tricyclics to help with dyspepsia Coding Level of Care Code Est Pt Level 4 (86530) Diagnoses Epigastric pain R10.13 Postprandial epigastric pain R10.13 Gastroesophageal reflux disease with esophagitis without hemorrhage K21.00 Esophagitis presence: with esophagitis Esophagitis bleeding: without hemorrhage Esophageal dysphagia R13.19 Dysphagia type: esophageal phase Dyspepsia R10.13 Chronic idiopathic constipation K59.04 Constipation type: chronic idiopathic constipation Belching symptom R14.2 Achalasia K22.0 Time Spent (min) 35 Comment 20 minutes spent with patient and additional 15 minutes spent reviewing her records
[2023-09-29 09:44] VITALS: BP 136/75; PULSE 90; BMI 18.8
== END 2023-09-29 10:25 | disposition home or self-care (01) ==
PROVIDERS: PCP Internal Medicine; Visit Provider Nurse Practitioner Family
DX: R10.13 Epigastric pain (principal); K21.00 Gastro-esophageal reflux disease with esophagitis, without bleeding; R13.19 Other dysphagia; K59.04 Chronic idiopathic constipation; R14.2 Eructation; K22.0 Achalasia of cardia
CPT/HCPCS: 99214

== ENCOUNTER → 2023-09-29 09:39 | Outpatient (BNVA) | payer MEDICARE, OTHER, SELFPAY | PROVIDERS: PCP Internal Medicine; Visit Provider Nurse Practitioner Family | DX: R10.13 Epigastric pain (principal); R13.10 Dysphagia, unspecified; K21.00 Gastro-esophageal reflux disease with esophagitis, without bleeding; K59.04 Chronic idiopathic constipation; R14.2 Eructation; K22.0 Achalasia of cardia | CPT/HCPCS: 99212 ==

== ENCOUNTER 2023-10-05 07:04 | Emergency (ER) | payer MEDICARE, OTHER, SELFPAY ==
[2023-10-05] VITALS (12 sets, daily range): BP systolic 131–159; BP diastolic 58–91; PULSE 66–95; RESP 16–18; TEMP 36.1–36.7; O2SAT 95–100; BMI 18.5
--- NOTE | ~2023-10-05 | XR_ITS ---
EXAMINATION: XR CHEST CLINICAL INFORMATION: Cough. Recent surgery. COMPARISON: 2 views of the chest dated 04/21/2022. TECHNIQUE: 2 views of the chest were obtained. FINDINGS: EKG leads overlie the chest. The cardiomediastinal silhouette is within normal limits in size. Lungs bilaterally are symmetrically hyperinflated and hyperlucent, consistent with emphysematous obstructive lung disease. There is slight indistinctness of the CP angles, likely related to pleural thickening or scarring. No significant pleural effusion noted. No focal consolidation or pneumothorax is seen. Diffuse osteopenia with mild dorsal kyphosis and mild convex left thoracolumbar scoliosis. 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 * No focal pneumonia.
--- NOTE | 2023-10-05 08:15 | ED.GENADULT ---
HPI - General Adult General Chief complaint: General Medical Stated complaint: Diff swallowing Time Seen by Provider: 10/05/23 07:34 Source: patient and old records reviewed Mode of arrival: ambulatory Limitations: no limitations History of Present Illness ED Provider: GINA RUTHERFORD narrative: 83 yo female with PMH of esophageal dysmotility, GERD, schatzki's ring s/p dilation on 09/21 with Tristan, HTN, hypokalemia, HLD has been seen in by Tristan for decreased ability to eat and drink weight loss she has tried different GI medications that she feels have side effects and make her worse including recently vonoprazan which she has stopped. She notes yesterday seemed good but since procedure symptoms of belching poor PO intake and increased mucous and regurgitation have been present. Yesterday AM she tolerated eggs/czech toast, she tolerated pineapple smoothie for lunch, dinner she had pureed turkey meatloaf and butternut squash. Then before bed increased belching, saliva is not really going down. Today she cannot keep liquids down. MD complaint: difficulty swallowing Onset (ago): day(s) (2) Location: mouth Radiation: non-radiation Severity: moderate Relieving factors: none Exacerbating factors: eating Associated symptoms: other (belching, burping) Treatments prior to arrival: none Related Data Home Medications ?Medication ?Instructions ?Recorded ?Confirmed lisinopril 5 mg tablet 5 mg PO DAILY 02/07/21 07/09/23 rosuvastatin 40 mg tablet 40 mg PO DAILY 02/07/21 07/09/23 Previous Rx's ?Medication ?Instructions ?Recorded pyridoxine (vitamin B6) 50 mg 50 mg PO DAILY 90 days #90 tabs 07/06/23 tablet simethicone 125 mg chewable tablet 125 mg PO BID-TID PRN abdominal 09/14/23 (Gas Relief (simethicone)) distention #90 tabs vonoprazan 20 mg tablet (Voquezna) 20 mg PO DAILY #14 tabs 09/14/23 cetirizine 10 mg tablet (Zyrtec) 10 mg PO BEDTIME allergy symptoms 09/21/23 #30 tabs famotidine 40 mg tablet 40 mg PO BEDTIME #90 tabs 09/25/23 potassium chloride 20 mEq 20 meq PO DAILY #30 tabs 09/28/23 tablet,extended release(part/cryst) potassium chloride 20 mEq oral 20 meq PO DAILY 30 days #30 ea 10/01/23 packet pantoprazole 20 mg tablet,delayed 20 mg PO BID #60 tabs 10/04/23 release Allergies Allergy/AdvReac Type Severity Reaction Status Date / Time cephalexin [From KEFLEX] Allergy Severe RASH Verified 10/05/23 07:21 Sulfa (Sulfonamide Allergy Severe INTSERNAL Verified 10/05/23 07:21 Antibiotics) AND [SULFA (SULFONAMIDE EXTERNAL ANTIBIOTICS)] RASH/INFECTION Iodinated Contrast Media Allergy Intermediate HIVES,REDNESS Verified 10/05/23 07:21 [IV Dye, Iodine Containing] + SWELLING sulfamethoxazole Allergy Intermediate INTERNAL Verified 10/05/23 07:21 [From BACTRIM] AND EXTERNAL RASH/ INFECTION stent Allergy Vomiting Uncoded 10/05/23 07:21 Review of Systems Review of Systems: Constitutional : No Fever, No Chills, No Fatigue ENT/Mouth : No sore throat, No Rhinorrhea Eyes: No Eye Pain, No Swelling, No Redness Cardiovascular : No Chest Pain, No SOB, No Dyspnea on Exertion Respiratory : No Cough, No Sputum Gastrointestinal : No Nausea, No Vomiting, No Diarrhea, No abdominal Pain Genitourinary : No Dysuria, No Urinary Frequency, No Hematuria, Musculoskeletal : No joint pain, No Myalgias, No Joint Swelling Skin : No Skin Lesions, No rash Neuro : No Weakness, No Numbness, No Dizziness, no Headache All other systems reviewed and are negative PMFSH Past Medical History Attestation statement: The following information was validated with the patient. Source: old records reviewed Medical History Kidney stone GERD (gastroesophageal reflux disease) High cholesterol HTN (hypertension) Surgical History H/O lithotripsy H/O esophagogastroduodenoscopy (07/09/23) Social History Social History Alcohol intake: never Patient Tobacco Use Status: Never used Tobacco Advance Directives: Yes Advance Directives on File: Yes Advance Directives Date on File: 09/22/23 Do you have a plan to hurt others: No Plan Physical Exam ED Vital Signs: Vital Signs - 24 hr 10/05/23 07:17 10/05/23 09:17 Temperature 98.0 F 97.7 F Pulse Rate 95 66 Respiratory Rate 18 16 Blood Pressure 148/91 H 132/67 Pulse Oximetry 98 99 Oxygen Delivery Method Room Air Room Air BMI result Body Mass Index 18.5 Appearance: Alert. Oriented X3. No acute distress. unable to keep liquids down vomited up water she drank Eyes: Pupils equal, round and reactive to light. ENT: Pharynx normal. Neck: Normal inspection. Neck supple. CVS: Normal heart rate and rhythm. Pulses normal. Respiratory: No respiratory distress. Breath sounds normal. Abdomen: Soft and non-tender. Skin: Skin warm and dry. pale skin color. Extremities: No lower extremity edema. Neuro: Oriented X 3. No motor deficit. No sensory deficit. Medications Administered Generic Name Dose Route Start Last Admin Trade Name Freq PRN Reason Stop Dose Admin Potassium Chloride 10 meq in 100 mls @ 100 mls/hr 10/05/23 09:45 10/05/23 10:10 Potassium Chloride/H20 IV 10/05/23 13:44 100 mls/hr Q1H CARMELINA Administration Sodium Chloride 1,000 mls @ 100 mls/hr 10/05/23 10:00 10/05/23 10:10 Ns IVCONT 100 mls/hr .Q10H CARMELINA Administration Discontinued Medications Generic Name Dose Route Start Last Admin Trade Name Freq PRN Reason Stop Dose Admin Famotidine 20 mg 10/05/23 08:24 10/05/23 08:38 Famotidine/Pf 20 Mg/2 Ml Vial IVPUSH 10/05/23 08:25 20 mg ONCE ONE Administration Pantoprazole Sodium 40 mg 10/05/23 08:07 10/05/23 08:38 Pantoprazole Sodium 40 Mg/10 Ml Vial IVPUSH 10/05/23 08:08 Not Given ONCE ONE Medical Decision Making Medical Decision Making MDM Narrative: 83 yo female with PMH of esophageal dysmotility, GERD, schatzki's ring s/p dilation on 09/21 with Tristan, HTN, hypokalemia, HLD here with difficulty swallowing liquids increased burping and regurgitation and having side effects to her GI medications. At this time will give IV pepcid as she is declining IV protonix, obtaining K level and will discuss with Dr. Hudson Differential Diagnosis Differential Diagnoses: The differential diagnosis associated with the presentation includes dysmotility, obstruction Admission/Observation Consideration of admission/observation: Escalation of care including admission/observation considered physician observation started at 10am pending repeat K at 1pm and possible EGD this afternoon with Dr. Hudson observation ended at 11am as patient was sent to short stay surgery for EGD it was found she met criteria for acute EGD. total time in observation was 1 hour Consult Healthcare Provider Management of the patient was discussed with: Economic Geographer (Tristan - aware recheck K and possible EGD this afternoon) Lab Data MDM Lab Attestation statement: I reviewed the patient's lab results. 10/05/23 08:19 10/05/23 09:03 Labs: Lab Results 10/05/23 10/05/23 Range/Units 08:19 09:03 WBC 3.1 L (4.8-10.8) X10*3/uL RBC 4.78 (4.20-5.50) X10*6/uL Hgb 15.1 (12.0-16.0) g/dl Hct 44.0 (37.0-47.0) % MCV 92.1 (80.0-98.0) fL MCH 31.6 (27.0-33.0) pg MCHC 34.3 (31.0-35.0) g/dl RDW 13.6 (11.0-16.0) % Plt Count 121 L (160-400) X10*3/uL MPV 11.4 (9.4-12.3) fL Immature Gran % (Auto) 0.3 (0.0-0.4) % Neut % (Auto) 65.3 (45-73) % Lymph % (Auto) 19.1 L (20-40) % [place] % (Auto) 12.0 H (2-11) % Eos % (Auto) 2.3 (0-4) % Baso % (Auto) 1.0 (0-2) % Lymph # (Auto) 0.6 L (1.2-4.9) X10*3/uL [place] # (Auto) 0.4 (0.1-1.2) X10*3/uL Eos # (Auto) 0.1 (0.0-0.4) X10*3/uL Baso # (Auto) 0.0 (0.0-0.2) X10*3/uL Abs Immat Gran (auto) 0.01 (0.00-0.03) X10*3/uL Absolute Neuts (auto) 2.0 (2.0-8.3) x10*3/uL Absolute Nucleated RBC 0.000 (0.0-0.012) X10*3/uL Nucleated RBC % (auto) 0.0 (0.0-0.2) /100WBC Smear Tech's Comments VERIFIED Sodium 147 H (135-145) mmol/L Potassium 2.9 L* (3.3-5.1) mmol/L Chloride 104 (96-108) mmol/L Carbon Dioxide 28 (22-29) mmol/L Anion Gap 18 (12-20) BUN 14 (9-16) mg/dL Creatinine 0.81 (0.5-1.4) mg/dL Estim Creat Clear Calc 45.0 Estimated GFR > 60 Random Glucose 92 (60-115) mg/dL Calcium 10.8 H (8.4-10.2) mg/dL Magnesium 1.9 (1.6-2.6) mg/dL Total Bilirubin 0.8 (0.0-1.0) mg/dL Direct Bilirubin 0.3 (0.0-0.5) mg/dL AST 34 H (5-31) U/L ALT 31 (0-31) U/L Alkaline Phosphatase 77 (39-117) U/L Total Protein 7.1 (6.5-8.0) g/dL Albumin 4.5 (3.5-5.0) g/dL Independent Interpretation I performed an independent interpretation of an: EKG and Plain X-Ray Interpretation: Rate: 71 Rhythm: NSR [place]: normal Normal P waves. Normal BABITA. Normal QRS complex. ST T wave : no LARA, inverted t wave III, V1-V2 qTC: 436 prior studies: no acute ischemia t waves old The study has been interpreted contemporaneously by me. . Radiology Impression Discussion of test interpretation with radiology: I have reviewed the radiologist's reading. External Record Review External record reviewed: Inpatient record and Office record Critical Care Time Critical Care Time Critical Care Time: Yes Total Critical Care Time: 45 Attestation: medical consult, repeat labs, IV potassium to replete hypokalemia I attest to this time spent taking care of the patient Discharge Plan Discharge Clinical Impression: Acute dehydration, Acute hypokalemia Dysphagia Qualifiers: Dysphagia type: unspecified Qualified Code(s): R13.10 - Dysphagia, unspecified Patient Disposition: Admitted as Observation Print Language: Argentine
[2023-10-05 08:36] LABS: Eosinophils Absolute Auto 0.1 X10*3/uL (0.0-0.4); Eosinophils Percent Auto 2.3 % (0-4); Hemoglobin 15.1 g/dl (12.0-16.0); Imm Gran Abs Auto 0.01 X10*3/uL (0.00-0.03); Imm Gran Pct Auto 0.3 % (0.0-0.4); Lymphocytes Absolute Auto 0.6 X10*3/uL (1.2-4.9); Lymphocytes Percent Auto 19.1 % (20-40); MANUAL DIFF FLAG SCAN; Mean Corpuscular HGB Conc 34.3 g/dl (31.0-35.0); Mean Corpuscular Hemoglobin 31.6 pg (27.0-33.0); Mean Corpuscular Volume 92.1 fL (80.0-98.0); Monocytes Absolute Auto 0.4 X10*3/uL (0.1-1.2); Neutrophils Percent Auto 65.3 % (45-73); PLT CLUMP 1; Red Blood Count 4.78 X10*6/uL (4.20-5.50); Red Cell Distribution Width 13.6 % (11.0-16.0); SCAN SMEAR FLAG 1
[2023-10-05] MEDS: Famotidine/PF 20 MG/2 ML VIAL IVPUSH (08:38)
--- NOTE | 2023-10-05 08:44 | PC.NURSE ---
a&ox4. vss and up to date. nsr on the surveillance monitor. pt presents to ED w/ decreased PO intake/constant belching/burping x 1800 last night. pt starts sx happened after she ate dinner around 1730. PO challenge attempted - unable to hold fluids down w/o belching. 20gIV placed in the right forearm - medication administered per provider order. effectiveness pending. pt refusing protonix d/t meds making her feel weird last time. provider notified/aware. pt to xray at this time. plan of care ongoing.
[2023-10-05 09:16] LABS: White Blood Count 3.1 X10*3/uL (4.8-10.8)
[2023-10-05 09:17] LABS: Mean Platelet Volume 11.4 fL (9.4-12.3); Platelet Count 121 X10*3/uL (160-400)
[2023-10-05 09:18] LABS: SLIDE REVIEW VERIFIED
[2023-10-05 09:46] LABS: Alanine Aminotransferase 31 U/L (0-31); Albumin Level 4.5 g/dL (3.5-5.0); Alkaline Phosphatase 77 U/L (39-117); Anion Gap 18 (12-20); Aspartate Amino Transferase 34 U/L (5-31); Bilirubin Direct 0.3 mg/dL (0.0-0.5); Bilirubin Total 0.8 mg/dL (0.0-1.0); Blood Urea Nitrogen 14 mg/dL (9-16); Calcium 10.8 mg/dL (8.4-10.2); Carbon Dioxide 28 mmol/L (22-29); Chloride 104 mmol/L (96-108); Estimated Glomerular Filt Rate > 60; Glucose Random 92 mg/dL (60-115); Magnesium 1.9 mg/dL (1.6-2.6); Potassium 2.9 mmol/L (3.3-5.1); Sodium 147 mmol/L (135-145); Total Protein 7.1 g/dL (6.5-8.0)
--- NOTE | 2023-10-05 09:56 | ECG_ITS ---
Test Reason : hypokalemia Blood Pressure : / mmHG Vent. Rate : 071 BPM Atrial Rate : 071 BPM P-R Int : 154 ms QRS Dur : 086 ms QT Int : 402 ms P-R-T Axes : 081 014 022 degrees QTc Int : 436 ms Normal sinus rhythm Normal ECG When compared with ECG of 19-JUN-2023 06:59, Nonspecific T wave abnormality, improved in Anterior leads Referred By: Ekaterina Leonardo Electronically Signed By:GELACIO SETHI MD
[2023-10-05] MEDS: 0.9 % Sodium Chloride 1,000 ML 100 ML IVCONT (10:10)
[2023-10-05] MEDS: Potassium Chloride/H20 10 MEQ/100 ML PIGGYBACK 100 MEQ IV ×4 (10:10→14:50)
--- NOTE | 2023-10-05 10:15 | PC.NURSE ---
pt aware of potassium levels - ekg performed. IVF/medication administered per provider order. pt aware of plan of care in regards to being observed by physician until repeat labs obtained post potassium infusions. plan of care ongoing.
--- NOTE | 2023-10-05 10:49 | PC.NURSE ---
report given to DOUG cao in short stay at this time.
--- NOTE | 2023-10-05 10:53 | P.CNGI_ITS ---
History of Present Illness Data of Consult Service Date: 10/05/23 Requesting physician: Ekaterina Leonardo Primary Care Provider: Alton Durham MD HPI Reason for consult: dysphagia 83 yo female with PMH of esophageal dysmotility, GERD, schatzki's ring s/p dilation on 09/21, HTN, hypokalemia, HLD who I am seeing for assessment for dysphagia. Patient had ate meat loaf last night with ghanaian toast earlier in the day and pineapple smoothie. In the evening she noted she had trouble swallowing saliva and felt as if something was stuck in her chest area. She has stopped taking her vonoprazon Wednesday last week after being told to stop by her GI due to low K, she was then changed to protonix but stopped it after taking for few dyas as she didn;t feel right with it She denies chest pain, nausea, vomiting, and has been passing stool which has been normal Review of Systems 2 Review of Systems: Constitutional : No Weight loss, No Fever, No Chills ENT/Mouth : No sore throat, No Rhinorrhea Eyes: No Swelling, No Redness Cardiovascular : No Chest Pain, No SOB, No Edema Respiratory : No Cough, No Sputum, No Wheezing Gastrointestinal : see HPI Genitourinary : NO Dysuria, No Urinary Frequency, No Hematuria, No Urgency Musculoskeletal : + joint pain, No Myalgias, No Joint Swelling Skin : No Skin Lesions, No rash Neuro : No Weakness, No Numbness, No Dizziness, No Headache Psych : No Anxiety/Panic, No Depression Heme/Lymph: No Bruising, No Lymphadenopathy Endocrine : No Polyuria, No Polydipsia All other systems reviewed and are negative. [facility] Past Medical History Medical History Kidney stone GERD (gastroesophageal reflux disease) High cholesterol HTN (hypertension) Surgical History Surgical History H/O lithotripsy H/O esophagogastroduodenoscopy (07/09/23) Social History Social History Alcohol intake: never Patient Tobacco Use Status: Never used Tobacco Advance Directives Date on File: 09/22/23 Meds Allergies Allergy/AdvReac Type Severity Reaction Status Date / Time cephalexin [From KEFLEX] Allergy Severe RASH Verified 10/05/23 07:21 Sulfa (Sulfonamide Allergy Severe INTSERNAL Verified 10/05/23 07:21 Antibiotics) AND [SULFA (SULFONAMIDE EXTERNAL ANTIBIOTICS)] RASH/INFECTION Iodinated Contrast Media Allergy Intermediate HIVES,REDNESS Verified 10/05/23 07:21 [IV Dye, Iodine Containing] + SWELLING sulfamethoxazole Allergy Intermediate INTERNAL Verified 10/05/23 07:21 [From BACTRIM] AND EXTERNAL RASH/ INFECTION stent Allergy Vomiting Uncoded 10/05/23 07:21 Active Medications: Current Medications Potassium Chloride (Potassium Chloride/H20) 10 meq in 100 mls @ 100 mls/hr IV Q1H CARMELINA Stop: 10/05/23 13:44 Last Admin: 10/05/23 10:10 Dose: 100 mls/hr Sodium Chloride (Ns) 1,000 mls @ 100 mls/hr IVCONT .Q10H CARMELINA Last Admin: 10/05/23 10:10 Dose: 100 mls/hr Home Medications ?Medication ?Instructions ?Recorded ?Confirmed ?Last Taken ?Type lisinopril 5 mg tablet 5 mg PO DAILY 02/07/21 07/09/23 Unknown History rosuvastatin 40 mg tablet 40 mg PO DAILY 02/07/21 07/09/23 Unknown History Physical Exam 2 Vital Signs: Vital Signs: Last Vital Signs Temp 97.7 F 10/05/23 09:17 Pulse 66 10/05/23 09:17 Resp 16 10/05/23 09:17 BP 132/67 10/05/23 09:17 Pulse Ox 99 10/05/23 09:17 O2 Del Method Room Air 10/05/23 09:17 BMI result Body Mass Index 18.5 EXAM: GENERAL: The patient is thin, relaxed VITAL SIGNS:see workflow HEENT: Nonicteric sclerae, PERRLA, EOMI. Oropharynx clear. Moist mucous membranes. Conjunctivae appear well perfused. No thyroid mass. CHEST: Chest wall is nontender. HEART: Regular rate and rhythm without murmurs. LUNGS: Clear to auscultation bilaterally. ABDOMEN: Soft, positive bowel sounds, nontender, no organomegaly.no flank tenderness SKIN: No rash, no excessive bruising, petechiae, or purpura. NEUROLOGIC: Cranial nerves II-XII intact without motor/sensory deficit. Psych: normal affect Results Labs 10/05/23 08:19 10/05/23 09:03 Labs: Short CBC 10/05/23 Range/Units 08:19 WBC 3.1 L (4.8-10.8) X10*3/uL Hgb 15.1 (12.0-16.0) g/dl Hct 44.0 (37.0-47.0) % Plt Count 121 L (160-400) X10*3/uL BMP 10/05/23 09:03 Sodium 147 H Potassium 2.9 L* Chloride 104 Carbon Dioxide 28 BUN 14 Creatinine 0.81 Calcium 10.8 H Liver Function 10/05/23 Range/Units 09:03 Total Bilirubin 0.8 (0.0-1.0) mg/dL Direct Bilirubin 0.3 (0.0-0.5) mg/dL AST 34 H (5-31) U/L ALT 31 (0-31) U/L Alkaline Phosphatase 77 (39-117) U/L Albumin 4.5 (3.5-5.0) g/dL ECG Attestation: I personally reviewed and interpreted this ECG as follows: (SR, nml QTc) Imaging Chest x-ray: Attestation: I personally reviewed and interpreted this imaging study as follows: (osteopenia, nml appearing lung martino ) Assessment and Plan (1) Dysphagia: Qualifiers: Dysphagia type: unspecified Qualified Code(s): R13.10 - Dysphagia, unspecified Status: Acute Plan 1/ dysphagia prob related to GERD and esophgeal spasm, possibly due to low K as well--current episode may have been precipitated by stopping her medication PLAN: 1/ replenish K 2/ EGD today to check for food bolus Procedures Date of Service Date of Service: 10/05/23
--- NOTE | 2023-10-05 11:18 | PC.NURSE ---
medication administered per provider order. pt being transported to short stay at this time.
--- NOTE | 2023-10-05 11:21 | PC.NURSE ---
called pt's (mitchell - HCP) in regards to plan of care at this time.
--- NOTE | 2023-10-05 11:29 | HO.ANESPROP2 ---
[facility] Active Problems Active Problems: All Active Problems Acute hypokalemia (Acute) Acute dehydration (Acute) Dysphagia (Acute) Epigastric pain (Acute) Facial bruising (Acute) Right ankle injury (Acute) Nephrolithiasis (Acute) Past Medical History Medical History Kidney stone GERD (gastroesophageal reflux disease) High cholesterol HTN (hypertension) Family History Family history of problems with anesthesia: No Surgical History Surgical History H/O lithotripsy H/O esophagogastroduodenoscopy (07/09/23) History of Problems with Anesthesia: No Social History Social History Alcohol intake: never Patient Tobacco Use Status: Never used Tobacco Advance Directives: Yes Advance Directives on File: Yes Advance Directives Date on File: 09/22/23 Do you have a plan to hurt others: No Plan Meds Allergies Allergy/AdvReac Type Severity Reaction Status Date / Time cephalexin [From KEFLEX] Allergy Severe RASH Verified 10/05/23 07:21 Sulfa (Sulfonamide Allergy Severe INTSERNAL Verified 10/05/23 07:21 Antibiotics) AND [SULFA (SULFONAMIDE EXTERNAL ANTIBIOTICS)] RASH/INFECTION Iodinated Contrast Media Allergy Intermediate HIVES,REDNESS Verified 10/05/23 07:21 [IV Dye, Iodine Containing] + SWELLING sulfamethoxazole Allergy Intermediate INTERNAL Verified 10/05/23 07:21 [From BACTRIM] AND EXTERNAL RASH/ INFECTION stent Allergy Vomiting Uncoded 10/05/23 07:21 Active Medications: Current Medications Potassium Chloride (Potassium Chloride/H20) 10 meq in 100 mls @ 100 mls/hr IV Q1H CARMELINA Stop: 10/05/23 13:44 Last Admin: 10/05/23 11:18 Dose: 100 mls/hr Sodium Chloride (Ns) 1,000 mls @ 100 mls/hr IVCONT .Q10H CARMELINA Last Admin: 10/05/23 10:10 Dose: 100 mls/hr Home Medications ?Medication ?Instructions ?Recorded ?Confirmed ?Last Taken ?Type lisinopril 5 mg tablet 5 mg PO DAILY 02/07/21 07/09/23 Unknown History rosuvastatin 40 mg tablet 40 mg PO DAILY 02/07/21 07/09/23 Unknown History Exam Height,Weight and Vital Signs: Height 5 ft 8 in Weight 55.1 kg Last Vital Signs Temp 97.7 F 10/05/23 09:17 Pulse 66 10/05/23 09:17 Resp 16 10/05/23 09:17 BP 132/67 10/05/23 09:17 Pulse Ox 99 10/05/23 09:17 O2 Del Method Room Air 10/05/23 09:17 Pertinent Lab Results Pertinent Lab Results: Laboratory Tests 10/05/23 10/05/23 08:19 09:03 WBC 3.1 L RBC 4.78 Hgb 15.1 Hct 44.0 MCV 92.1 MCH 31.6 MCHC 34.3 RDW 13.6 Plt Count 121 L MPV 11.4 Immature Gran % (Auto) 0.3 Neut % (Auto) 65.3 Lymph % (Auto) 19.1 L [place] % (Auto) 12.0 H Eos % (Auto) 2.3 Baso % (Auto) 1.0 Lymph # (Auto) 0.6 L [place] # (Auto) 0.4 Eos # (Auto) 0.1 Baso # (Auto) 0.0 Abs Immat Gran (auto) 0.01 Absolute Neuts (auto) 2.0 Absolute Nucleated RBC 0.000 Nucleated RBC % (auto) 0.0 Smear Tech's Comments VERIFIED Sodium 147 H Potassium 2.9 L* Chloride 104 Carbon Dioxide 28 Anion Gap 18 BUN 14 Creatinine 0.81 Estim Creat Clear Calc 45.0 Estimated GFR > 60 Random Glucose 92 Calcium 10.8 H Magnesium 1.9 Total Bilirubin 0.8 Direct Bilirubin 0.3 AST 34 H ALT 31 Alkaline Phosphatase 77 Total Protein 7.1 Albumin 4.5 Airway Mallampati Class: II TM Dist: >3cm Neck ROM: Full Loose/Missing/Broken Teeth: No Heart: rrr Lungs: cta Assessment and Plan Assessment Anesthesia Assessment: Anesthesia Plan Discussed and Chart Reviewed Final Anesthetic Review Family History of Problems with Anesthesia: No History of Problems with Anesthesia: No NPO: Yes ASA Class: II and Emergency Final Preanesthetic Review: No Changes in Pt Med Stat, Meds/Allgs Chart Reviewed, Consent Obtained/Reviewed and Anes Risks/Benef Reviewed Patient Risk: Intermediate Procedure Risk: Intermediate Anesthetic Plan Anesthetic Plan: TIVA Disposition: Standard PACU
--- NOTE | 2023-10-05 11:51 | MHC.SHP ---
Pre-Procedural Eval Section A - 24 Hr Update-Section A only Date of Service: 10/05/23 The patient is an INPATIENT: No The patient has been examined within 24 hours of the surgical procedure. The History & Physical has been completed within 30 days and I have reviewed it.: Yes Section B - Complete if H&P > 30 days Chief Complaint: Diff swallowing Allergies: Allergies Allergy/AdvReac Type Severity Reaction Status Date / Time cephalexin [From KEFLEX] Allergy Severe RASH Verified 10/05/23 07:21 Sulfa (Sulfonamide Allergy Severe INTSERNAL Verified 10/05/23 07:21 Antibiotics) AND [SULFA (SULFONAMIDE EXTERNAL ANTIBIOTICS)] RASH/INFECTION Iodinated Contrast Media Allergy Intermediate HIVES,REDNESS Verified 10/05/23 07:21 [IV Dye, Iodine Containing] + SWELLING sulfamethoxazole Allergy Intermediate INTERNAL Verified 10/05/23 07:21 [From BACTRIM] AND EXTERNAL RASH/ INFECTION stent Allergy Vomiting Uncoded 10/05/23 07:21 Plan I have reviewed the history and physical and performed a pertinent physical examination on my patient. No changes have occurred unless specified. Time Spent With Patient Time: Total time managing care of this patient today ____ minutes.
--- NOTE | 2023-10-05 11:51 | W.PM.OPN ---
Operative Note Operative Note Date of Service: 10/05/23 Narrative: Procedure Description: EGD Indication: dysphagia Anesthesia: GA FLEXIBLE TRANSORAL UPPER GASTROINTESTINAL ENDOSCOPY UPPER ENDOSCOPY Consent: Indications for the procedure and potential complications of bleeding, perforation, reaction to medications and missed diagnosis were discussed with the patient and informed consent was obtained. Instrument: Olympus GIF H 190 J mid size upper endoscope Monitoring: Vital signs and clinical assessment, continuous EKG monitoring, Pulse oximetry, Carbon Dioxide monitoring and blood pressure monitoring were done throughout the procedure. Procedure: The patient was placed in the left lateral decubitis position and pre-procedure medications were administered and a bite block was placed. The endoscope was inserted into the mouth and advanced under direct vision to the third part of duodenum. A careful inspection was made as the upper endoscope was withdrawn including a retroflexed examination of the proximal stomach; Findings and interventions are described below. Findings: Larynx:normal Esophagus: GE junction at 40 cm, diaphragm hiatus at 40 cm, schatzki ring noted with tertiary contractions and mild esophagitis, balloon dilation done at LES and UEs to 20 mm, with heme noted at LES. Stomach: benign fundic gland polyps noted. Mild erythema, Grade 2 flap valve on retroflexed examination of the cardia. There appeared to be minimal gastric movement Duodenum: Normal bulb and descending duodenum, Intervention: Balloon dilation Impression/Findings: possible gastroparesis gastritis schatzki ring fundic gland polyps PLAN: change to esomeprazole 20 mg BID consider gastric emptying and empirical trial of reglan if ongoing sx (have to stop reglan few days before GES if ordered)
--- NOTE | 2023-10-05 16:25 | PC.NURSE ---
patient ambulated off unit with steady gait, patients picking patient up
== END 2023-10-05 16:37 | disposition home or self-care (01) ==
LOC: HO.ED 10:01 → HO.SSS 14:49 → HO.ED 15:08
PROVIDERS: Emergency Medicine; Internal Medicine Gastroenterology; Emergency Provider Emergency Medicine; PCP Internal Medicine
PROC: 0DJ08ZZ Inspection of Upper Intestinal Tract, Via Natural or Artificial Opening Endoscopic (ICD-10-PCS; CPT 43235; principal; 2023-10-05 14:00)
DX: E87.6 Hypokalemia (principal); E86.0 Dehydration; R13.10 Dysphagia, unspecified; K22.2 Esophageal obstruction; K20.90 Esophagitis, unspecified without bleeding; K29.70 Gastritis, unspecified, without bleeding; K31.7 Polyp of stomach and duodenum; I10 Essential (primary) hypertension; Z88.2 Allergy status to sulfonamides
CPT/HCPCS: 43249; 36415; 71046; 80048; 80076; 83735; 85025; 93005; 96365; 96366; 96375; 99284; 99285; C1726; J0330; J1596; J2704; J3480

== ENCOUNTER → 2023-10-05 09:56 | Outpatient (BNV) | payer MEDICARE, OTHER, SELFPAY | PROVIDERS: Emergency Provider Emergency Medicine; PCP Internal Medicine; Visit Provider Internal Medicine Cardiovascular Disease | DX: E87.6 Hypokalemia (principal) | CPT/HCPCS: 93010 ==

== ENCOUNTER → 2023-10-05 11:01 | Outpatient (BNV) | payer MEDICARE, OTHER, SELFPAY | PROVIDERS: Emergency Provider Emergency Medicine; PCP Internal Medicine; Visit Provider Internal Medicine Gastroenterology | DX: R13.10 Dysphagia, unspecified (principal); K22.2 Esophageal obstruction; K29.70 Gastritis, unspecified, without bleeding; K31.7 Polyp of stomach and duodenum | CPT/HCPCS: 43249; 99284 ==

== ENCOUNTER 2023-10-08 07:53 | Outpatient (AMB) | payer MEDICARE, OTHER, SELFPAY ==
--- NOTE | 2023-10-08 08:11 | A.OFFVIS_ITS ---
Vital Signs 10/08/23 08:13 Height 5 ft 8 in Weight 118 lb BMI 17.9 BP 138/65 Blood Pressure Location Lt brachial Position Sitting Pulse 78 Intake Visit Reasons: follow up per eliecer Intake Note: Patient follow up per Eliecer/ difficulty swallowing Patient denies any GI issues x today. Systems Integration Analyst Required: No Accompanied by: Self / Same As Patient Allergies cephalexin [From KEFLEX] Allergy (Severe, Verified 10/08/23 08:09) RASH Sulfa (Sulfonamide Antibiotics) [SULFA (SULFONAMIDE ANTIBIOTICS)] Allergy (Severe, Verified 10/08/23 08:09) INTSERNAL AND EXTERNAL RASH/INFECTION Iodinated Contrast Media [IV Dye, Iodine Containing] Allergy (Intermediate, Verified 10/08/23 08:09) HIVES,REDNESS + SWELLING sulfamethoxazole [From BACTRIM] Allergy (Intermediate, Verified 10/08/23 08:09) INTERNAL AND EXTERNAL RASH/ INFECTION stent Allergy (Uncoded 10/05/23 07:21) Vomiting HPI HPI follow up per eliecer: Details: LAST VISIT: Epigastric pain Postprandial epigastric pain GERD (gastroesophageal reflux disease) Dysphagia Dyspepsia Constipation Belching symptom Achalasia Plan Continue vonoprazan. Sucralfate 2 hours after lunch. Famotidine 40 mg at bedtime. Avoid eating beef patient can do chicken meat bolus instead. Patient will get protein powder and try to make shakes in order to gain weight. Start taking potassium supplement with breakfast. Increase food high in potassium in her diet. Increasing potassium will also help her symptoms. Long discussion with patient about the importance of trying to take the medication and being patient with treatment. Patient never been on PPI in the past and there is definitely a damage in the esophagus that needs to be repaired with vonoprazan and H2 jose francisco. If she continues to have symptoms we can add low-dose tricyclics to help with dyspepsia ENDOSCOPY Findings: Larynx:normal Esophagus: GE junction at 40 cm, diaphragm hiatus at 40 cm, schatzki ring noted with tertiary contractions and mild esophagitis, balloon dilation done at LES and UEs to 20 mm, with heme noted at LES. Stomach: benign fundic gland polyps noted. Mild erythema, Grade 2 flap valve on retroflexed examination of the cardia. There appeared to be minimal gastric movement Duodenum: Normal bulb and descending duodenum, Intervention: Balloon dilation Impression/Findings: possible gastroparesis gastritis schatzki ring fundic gland polyps PLAN: change to esomeprazole 20 mg BID consider gastric emptying and empirical trial of reglan if ongoing sx (have to stop reglan few days before GES if ordered) TODAY'S VISIT Patient is here today for follow-up. Patient was doing well on Vonoprazan, however her potassium levels were going down despite taking potassium p.o.. Spoke with Amparo Garza PA-C from [employer] regarding vonoprazan to see hypokalemia was reported during this study and according to her there was no report of hypokalemia, during the trial, however hypokalemia was reported post trial in elderly patients. Patient was placed on pantoprazole, however she stopped taking it as it was making her stomach feel worse. Patient stopped taking sucralfate as it was making her more mucousy. Patient end up in the ER Wednesday. Patient states that she had ground meatloaf from [place] and pineapple juice with ice cream and she could not stop belching all night. Patient reports that she also had hard time belching and was afraid that she will choke. While in the ER seen by Dr. Hudson, fortunately he was aware of her case as we spoke about patient before. Upper endoscopy was done which confirmed esophagitis, Schatzki ring as well as erythema in her stomach. Recommendation was for patient to start Nexium 20 mg twice a day along with famotidine at night time. Liquid diet. Patient reports that she has been doing well, however Wednesday night patient made meat loaf again and she had similar symptoms. Patient states that she pureed the meat loaf, however she still had mucus coming up, inability to belch feeling like she will choke again. At that time patient also had pineapple juice. Today patient reports that she is feeling fine and has no trouble. Was able to take Nexium fine without any issues. Patient states that she had post eggs and had no problem at all. [facility] Medical History (Updated 10/07/23 @ 00:01 by Alejandra Ridley) Erosive esophagitis Kidney stone GERD (gastroesophageal reflux disease) High cholesterol HTN (hypertension) Surgical History H/O lithotripsy H/O esophagogastroduodenoscopy (07/09/23) Social History Alcohol intake: never Patient Tobacco Use Status: Never used Tobacco Advance Directives Date on File: 09/22/23 Review of Systems Const Denies weight gain and Denies weight loss ENT Reports no additional complaints, Reports dysphagia and Denies odynophagia Card Reports no additional complaints Resp Reports no additional complaints GI Reports abdominal pain (Epigastric), Denies belching, Denies melena, Reports bloating, Denies change in bowel habits, Reports dysphagia, Denies excessive flatus, Reports dyspepsia, Reports heartburn, Denies diarrhea, Denies loose stools, Denies nausea, Denies odynophagia and Denies vomiting Reports no additional complaints Musc Reports no additional complaints Neuro Reports no additional complaints Psych Reports no additional complaints Endo Reports no additional complaints Physical Exam Vital Signs: Last Vital Signs Pulse 78 10/08/23 08:13 BP 138/65 10/08/23 08:13 BMI result Body Mass Index 17.9 Const General: no acute distress Orientation/consciousness: patient oriented x3 Resp Effort & Inspection: normal respiratory effort, able to speak in complete sentences, no tracheal deviation and symmetric chest movement Auscultation: clear to auscultation bilaterally Cardio Rate: regular rate GI Inspection: Yes normal to inspection and No distended Palpation (GI): Soft to palpation, not firm, nontender and No hepatosplenomegaly present Auscultation: normal bowel sounds General: Yes no CVA tenderness Back/Spine/Pelvis Back: no CVA tenderness Skin General skin exam: elasticity normal, turgor normal and dry skin Neuro General: patient oriented x3 Psych Appearance: grossly normal Mental Status: mental status grossly normal Assessment & Plan Assessment & Plan (1) Epigastric pain: Code(s): R10.13 - Epigastric pain Category: Medical (2) Postprandial epigastric pain: Code(s): R10.13 - Epigastric pain (3) GERD (gastroesophageal reflux disease): Code(s): K21.9 - Gastro-esophageal reflux disease without esophagitis Qualifiers: Esophagitis presence: with esophagitis Esophagitis bleeding: without hemorrhage Qualified Code(s): K21.00 - Gastro-esophageal reflux disease with esophagitis, without bleeding (4) Dysphagia: Code(s): R13.10 - Dysphagia, unspecified Qualifiers: Dysphagia type: esophageal phase Qualified Code(s): R13.19 - Other dysp hagia (5) Dyspepsia: Code(s): R10.13 - Epigastric pain (6) Constipation: Code(s): K59.00 - Constipation, unspecified Qualifiers: Constipation type: slow transit constipation Qualified Code(s): K59.01 - Slow transit constipation (7) Belching symptom: Code(s): R14.2 - Eructation (8) Achalasia: Code(s): K22.0 - Achalasia of cardia (9) Schatzki's ring: Code(s): K22.2 - Esophageal obstruction Plan Will send patient for gastric emptying study as low motility of the stomach was noticed during the procedure. Patient opted not to take Reglan and we discussed this. We can started after her study. Continue taking Nexium twice a day and famotidine at bedtime. Long discussion with patient about food. Patient will need to change some of this thinks that she is eating. Patient will stop drinking pineapple juice as is to sour. Patient was encouraged to avoid juices altogether due to high sugar content which does not help the healing of her stomach in her esophagus. Make chicken soup with vegetables and meat which was recommended to be blended in the entertainment & media correspondent and drink it. Recommended almond milk with protein powder. Patient may add blueberries. Long discussion about avoiding dietary triggers. Avoid ice cream even if it is lactose free as it will increase mucus production. Again long discussion with patient about being more patient as this may take time to heal. Spoke with Dr. Hudson who voiced that he as well relayed this to her after the procedure. Patient will return in 2 weeks, sooner on as needed basis. If she continues to have trouble swallowing we can try to start her on [employer]ote[employer] as that can help increase peristalsis. Patient may use simethicone on as needed basis for bloating. Smaller meals and more often. She is agreeable to this plan and verbalizes understanding of instructions. She was given the opportunity to ask questions and all questions answered. Thank you for allowing me to participate in her care Orders: Orders NM gastric emptying study Today R68.81 - Early satiety Medications: Discontinued metoclopramide HCl (Reglan) Take 15 minutes before meals Discontinued Reason: Patient no longer taking 5 mg PO TIDWMEAL 60 tabs 0RF R11.0 - Nausea Coding Level of Care Code Est Pt Level 5 (53459) Diagnoses Epigastric pain R10.13 Postprandial epigastric pain R10.13 Gastroesophageal reflux disease with esophagitis without hemorrhage K21.00 Esophagitis presence: with esophagitis Esophagitis bleeding: without hemorrhage Esophageal dysphagia R13.19 Dysphagia type: esophageal phase Dyspepsia R10.13 Slow transit constipation K59.01 Constipation type: slow transit constipation Belching symptom R14.2 Achalasia K22.0 Schatzki's ring K22.2 Time Spent (min) 55 Comment 30 minutes spent with patient and additional 25 minutes spent reviewing her records
[2023-10-08 08:13] VITALS: BP 138/65; PULSE 78; BMI 17.9
== END 2023-10-08 08:56 | disposition home or self-care (01) ==
PROVIDERS: PCP Internal Medicine; Visit Provider Nurse Practitioner Family
DX: K21.00 Gastro-esophageal reflux disease with esophagitis, without bleeding (principal); R13.19 Other dysphagia; K59.01 Slow transit constipation; R14.2 Eructation; K22.0 Achalasia of cardia; K22.2 Esophageal obstruction
CPT/HCPCS: 99215

== ENCOUNTER → 2023-10-08 07:53 | Outpatient (BNVA) | payer MEDICARE, OTHER, SELFPAY | PROVIDERS: PCP Internal Medicine; Visit Provider Nurse Practitioner Family | DX: K21.00 Gastro-esophageal reflux disease with esophagitis, without bleeding (principal); K59.01 Slow transit constipation; K22.0 Achalasia of cardia; K22.2 Esophageal obstruction; R10.13 Epigastric pain; R13.19 Other dysphagia; R14.2 Eructation | CPT/HCPCS: 99212 ==

== ENCOUNTER 2023-10-12 07:41 | Outpatient (REF) | payer MEDICARE, OTHER, SELFPAY ==
--- NOTE | ~2023-10-12 | FL_ITS ---
EXAMINATION: XR FLUOROSCOPY UPPER GI WITH AIR CLINICAL INFORMATION: Dysphagia. Reflux COMPARISON: Upper GI July 2023 TECHNIQUE: Fluoroscopic air contrast upper GI examination was performed utilizing standard techniques with thin and thick barium and effervescent granules. Numerous spot images were obtained. FINDINGS: Moderate spondylosis of the cervical spine present most notably involving C4-C7. A ventral bridging osteophyte at C5-C6 again minimally indents upon the most superior esophagus. Lateral cine images of the oropharynx and hypopharynx demonstrate normal swallow mechanism with normal epiglottic inversion and soft palate elevation. No tracheal penetration, glottic or subglottic aspiration identified. No nasopharyngeal reflux present. Hypopharyngeal structures appear normal without evidence of mass or diverticulum. 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 Dual and single contrast images of the esophagus demonstrate a normal caliber and contour. The upper and mid esophageal mucosa still has a granular appearance with multiple foci of contrast pooling suggesting superficial erosions. No evidence of stricture, mass identified. There is persistent to and fro motion of the barium column with nonpropulsive tertiary contractions noted throughout the esophagus. The GE junction appears unremarkable with no narrowing compared to prior examination. No evidence of hiatus hernia identified. No significant gastroesophageal reflux was seen during the course of the examination and on reflux views. Dual contrast and single contrast images of the stomach demonstrated a normal contour. The gastric mucosal folds have a thickened appearance representing gastritis. There are multiple tiny areas of contrast pooling suggestive of small superficial ulcerations. No masses are seen. Contrast freely passed into the gastric antrum and duodenal bulb without delay. Single and air-contrast images of the duodenal bulb demonstrate no abnormality. The duodenal sweep has a normal appearance, course, and mucosal fold appearance. The imaged proximal jejunum has a normal fold pattern and caliber. FLUOROSCOPY TIME: 3 minutes 49 seconds Number of Spot Images: 9 Number of Cine: 12 DOSE AREA PRODUCT: 1000 uGy-m2 (microgray-meter squared) FL/FL barium swallow IMPRESSION: 1. Mild to moderate cricopharyngeal achalasia 2. The upper and mid esophageal mucosa continues to have a granular appearance with multiple foci of contrast pooling suggestive of erosive esophagitis. 3. Persistent esophageal dysmotility. 4. Interval improvement of the GE junction without evidence of narrowing. 5. Thickened appearance of the gastric rugal folds with multiple tiny foci of contrast pooling suggesting erosive gastritis. This procedure was performed by Frank Zamora PA-C, and supervised by Dr. Huffman
[2023-10-12 08:38] LABS: Potassium 3.1 mmol/L (3.3-5.1)
== END 2023-10-12 07:42 | disposition home or self-care (01) ==
LOC: HO.XRAY 07:41
PROVIDERS: PCP Internal Medicine; Visit Provider Nurse Practitioner Family
DX: R13.10 Dysphagia, unspecified (principal); E87.6 Hypokalemia
CPT/HCPCS: 36415; 74220; 84132

== ENCOUNTER → 2023-10-12 08:04 | Outpatient (BNV) | payer MEDICARE, OTHER, SELFPAY | PROVIDERS: PCP Internal Medicine; Visit Provider Physician Assistant Surgical | DX: R13.10 Dysphagia, unspecified (principal); K21.9 Gastro-esophageal reflux disease without esophagitis | CPT/HCPCS: 74246 ==

== ENCOUNTER 2023-10-15 09:00 | Outpatient (AMB) | payer MEDICARE, OTHER, SELFPAY ==
--- NOTE | 2023-10-15 09:19 | A.OFFVIS_ITS ---
Vital Signs 10/15/23 09:24 Height 5 ft 8 in Weight 121 lb 4.068 oz BMI 18.4 BP 124/64 Blood Pressure Location Rt brachial Position Sitting Pulse 86 Pulse Source Pulse Oximeter Pulse Oximetry (%) 100 Oxygen Delivery Method Room Air Intake Visit Reasons: 2 week follow up Intake Note: Maureen presents in office today for a scheduled FUV. CC: Pt states that they have still been taking the OTC Nexium as the pharmacy has still not acknowledged the Rx that we have sent over. Pharmacy ([facility]) reports that they still require a PA for the liquid nexium if that is what the pt requires. Pt states that they are still tolerating the smaller nexium capsules. Pt states that they would be willing to go to another [facility] ([facility]) if necessary to get the medication. Pt states that the pharmacy reports they don't have the nexium that she needs. Facilities Administrator Required: No Allergies cephalexin [From KEFLEX] Allergy (Severe, Verified 10/15/23 09:24) RASH Sulfa (Sulfonamide Antibiotics) [SULFA (SULFONAMIDE ANTIBIOTICS)] Allergy (Severe, Verified 10/15/23 09:24) INTSERNAL AND EXTERNAL RASH/INFECTION Iodinated Contrast Media [IV Dye, Iodine Containing] Allergy (Intermediate, Verified 10/15/23 09:24) HIVES,REDNESS + SWELLING sulfamethoxazole [From BACTRIM] Allergy (Intermediate, Verified 10/15/23 09:24) INTERNAL AND EXTERNAL RASH/ INFECTION stent Allergy (Uncoded 10/05/23 07:21) Vomiting HPI HPI 2 week follow up: Details: LAST VISIT Epigastric pain Postprandial epigastric pain GERD (gastroesophageal reflux disease) Dysphagia Dyspepsia Constipation Belching symptom Achalasia Schatzki's ring Plan Will send patient for gastric emptying study as low motility of the stomach was noticed during the procedure. Patient opted not to take Reglan and we discussed this. We can started after her study. Continue taking Nexium twice a day and famotidine at bedtime. Long discussion with patient about food. Patient will need to change some of this thinks that she is eating. Patient will stop drinking pineapple juice as is to sour. Patient was encouraged to avoid juices altogether due to high sugar content which does not help the healing of her stomach in her esophagus. Make chicken soup with vegetables and meat which was recommended to be blended in the batch blender and drink it. Recommended almond milk with protein powder. Patient may add blueberries. Long discussion about avoiding dietary triggers. Avoid ice cream even if it is lactose free as it will increase mucus production. Again long discussion with patient about being more patient as this may take time to heal. Spoke with Dr. Hudson who voiced that he as well relayed this to her after the procedure. Patient will return in 2 weeks, sooner on as needed basis. If she continues to have trouble swallowing we can try to start her on Motegrity as that can help increase peristalsis. Patient may use simethicone on as needed basis for bloating. Smaller meals and more often. She is agreeable to this plan and verbalizes understanding of instructions. She was given the opportunity to ask questions and all questions answered. ? Thank you for allowing me to participate in her care Orders Orders NM gastric emptying study Today R68.81 Medications Discontinued metoclopramide HCl (Reglan) Take 15 minutes before meals Discontinued Reason: Patient no longer taking 5 mg PO TIDWMEAL 60 tabs 0RF R11.0 TODAY'S VISIT Patient is here today for follow-up. Patient reports to have been feeling better. Able to tolerate Nexium twice a day half an hour before breakfast and half an hour before dinner. She still has symptoms in the evening where she will have belching and sometimes increase mucus. Patient is eating differently right now. Avoiding pineapple and ice cream even the lactose free. Patient is eating ground chicken, eggs. Making shakes. Patient has many questions in regarding her diet. Potassium couple days ago 3.1. Patient reports that her PCP is following up on that. Patient's kidney functions were all normal. She is eating banana and food that is high in potassium. Patient denies any nausea or vomiting. Reports that she is moving her bowels well. Patient denies any dysphagia at this time, however she is eating mainly bland food and ground chi cken and fish. [facility] Medical History Erosive esophagitis Kidney stone GERD (gastroesophageal reflux disease) High cholesterol HTN (hypertension) Surgical History H/O lithotripsy H/O esophagogastroduodenoscopy (07/09/23) Social History Alcohol intake: never Patient Tobacco Use Status: Never used Tobacco Advance Directives Date on File: 09/22/23 Review of Systems Const Denies weight gain and Denies weight loss ENT Reports no additional complaints, Denies dysphagia and Denies odynophagia Card Reports no additional complaints Resp Reports no additional complaints GI Denies abdominal pain, Reports belching (Occasional), Denies melena, Reports bloating, Denies change in bowel habits, Denies dysphagia, Denies excessive flatus, Denies dyspepsia, Reports heartburn, Denies diarrhea, Denies loose stools, Denies nausea, Denies odynophagia and Denies vomiting Reports no additional complaints Musc Reports no additional complaints Neuro Reports no additional complaints Psych Reports no additional complaints Endo Reports no additional complaints Physical Exam Vital Signs: Last Vital Signs Pulse 86 10/15/23 09:24 BP 124/64 10/15/23 09:24 Pulse Ox 100 10/15/23 09:24 Oxygen Delivery Method Room Air 10/15/23 09:24 BMI result Body Mass Index 18.4 Const General: no acute distress Orientation/consciousness: patient oriented x3 Resp Effort & Inspection: normal respiratory effort, able to speak in complete sentences, no tracheal deviation and symmetric chest movement Auscultation: clear to auscultation bilaterally Cardio Rate: regular rate GI Inspection: Yes normal to inspection and No distended Palpation (GI): Soft to palpation, not firm, nontender and No hepatosplenomegaly present Auscultation: normal bowel sounds General: Yes no CVA tenderness Back/Spine/Pelvis Back: no CVA tenderness Skin General skin exam: elasticity normal, turgor normal and dry skin Neuro General: patient oriented x3 Psych Appearance: grossly normal Mental Status: mental status grossly normal Assessment & Plan Assessment & Plan (1) Epigastric pain: Code(s): R10.13 - Epigastric pain Category: Medical (2) Postprandial epigastric pain: Code(s): R10.13 - Epigastric pain (3) GERD (gastroesophageal reflux disease): Code(s): K21.9 - Gastro-esophageal reflux disease without esophagitis Qualifiers: Esophagitis presence: with esophagitis Esophagitis bleeding: without hemorrhage Qualified Code(s): K21.00 - Gastro-esophageal reflux disease with esophagitis, without bleeding (4) Dysphagia: Code(s): R13.10 - Dysphagia, unspecified Qualifiers: Dysphagia type: esophageal phase Qualified Code(s): R13.19 - Other dysphagia (5) Dyspepsia: Code(s): R10.13 - Epigastric pain (6) Constipation: Code(s): K59.00 - Constipation, unspecified Qualifiers: Constipation type: slow transit constipation Qualified Code(s): K59.01 - Slow transit constipation (7) Belching symptom: Code(s): R14.2 - Eructation (8) Achalasia: Code(s): K22.0 - Achalasia of cardia (9) Schatzki's ring: Code(s): K22.2 - Esophageal obstruction (10) Hypokalemia: Code(s): E87.6 - Hypokalemia Plan Continue current regimen with Nexium. Avoid dietary triggers long discussion about food that patient should and should not eat. List of food high in potassium given to patient. Patient will try slowly to avoid worsening symptoms. Patient was encouraged to try 1 item every few days not to irritate her stomach. Avoid eating late at night. PCP is to follow her potassium level. Patient states that she will have drawn next Wednesday. Patient was also encouraged to try to drink Gatorade if she can tolerate. Continue avoiding la ctose and gluten. Avoid sweets and fruits that are high in sugar. Continue low FODMAP diet. Discussed with patient that this might take time and she needs to be patient. Her allergen test came back negative. Normal eosinophilic count and biopsy did not show high eosinophilic count, hence negative eosinophilic esophagitis. Patient will follow-up next week. She will call our office if she will have any GI concerning symptoms. Patient is going for her gastric emptying study on Wednesday. Hold Nexium the morning of the test. Patient can take it as soon as she gets home. Patient is agreeable to plan of care and verbalizes understanding of instructions. She was given the opportunity to ask questions and all questions answered. Thank you for allowing me participate in her care Medications: Refilled esomeprazole magnesium 20 mg PO BID 60 caps 2RF Coding Level of Care Code Est Pt Level 4 (26911) Diagnoses Epigastric pain R10.13 Postprandial epigastric pain R10.13 Gastroesophageal reflux disease with esophagitis without hemorrhage K21.00 Esophagitis presence: with esophagitis Esophagitis bleeding: without hemorrhage Esophageal dysphagia R13.19 Dysphagia type: esophageal phase Dyspepsia R10.13 Slow transit constipation K59.01 Constipation type: slow transit constipation Belching symptom R14.2 Achalasia K22.0 Schatzki's ring K22.2 Hypokalemia E87.6 Time Spent (min) 40 Comment 25 minutes spent with patient and additional 15 minutes spent reviewing her r ecords
[2023-10-15 09:24] VITALS: BP 124/64; PULSE 86; O2SAT 100; BMI 18.4
== END 2023-10-15 10:16 | disposition home or self-care (01) ==
PROVIDERS: PCP Internal Medicine; Visit Provider Nurse Practitioner Family
DX: R10.13 Epigastric pain (principal); K21.00 Gastro-esophageal reflux disease with esophagitis, without bleeding; R13.19 Other dysphagia; K59.01 Slow transit constipation; R14.2 Eructation; K22.0 Achalasia of cardia; K22.2 Esophageal obstruction; E87.6 Hypokalemia
CPT/HCPCS: 99214

== ENCOUNTER → 2023-10-15 09:00 | Outpatient (BNVA) | payer MEDICARE, OTHER, SELFPAY | PROVIDERS: PCP Internal Medicine; Visit Provider Nurse Practitioner Family | DX: R10.13 Epigastric pain (principal); K21.00 Gastro-esophageal reflux disease with esophagitis, without bleeding; R13.19 Other dysphagia; K59.01 Slow transit constipation; R14.2 Eructation; K22.0 Achalasia of cardia; K22.2 Esophageal obstruction; E87.6 Hypokalemia | CPT/HCPCS: 99212 ==

== ENCOUNTER → 2023-10-18 07:46 | Outpatient (REF) | payer MEDICARE, OTHER, SELFPAY ==
--- NOTE | ~2023-10-18 | NM_ITS ---
EXAMINATION: RI RADIONUCLIDE SOLID FOOD GASTRIC EMPTYING 4-HOUR STUDY CLINICAL INFORMATION: Early satiety. COMPARISON: None TECHNIQUE: A standard meal consisting of 4 oz of Egg Beaters brand tagged with 850 microcuries Tc-99m Sulfur Colloid, 8 oz water and 1 1/4 slices of toast with jelly was administered orally to the patient. Images were obtained using a dual head gamma camera in the anterior and posterior projections over of the stomach immediately post ingestion and at hourly intervals up to 4 hours post ingestion. The anterior and posterior counts at each time interval were averaged using the geometric mean and expressed as percentage of the immediate post ingestion counts. FINDINGS: There is good visualization of activity in the stomach immediately post ingestion. As the study progresses, there is good clearance of activity from the stomach and visualization of progressively increasing small bowel activity. By the end of the study, there is almost no retention noted in the stomach. Retention in the stomach at each time interval was: 1 hour 57% (normal 37%-90%) 2 hours 45% (normal 30%-60%) 3 hours 28% 4 hours 5% (normal 0%-10%) RI/RI gastric emptying study IMPRESSION: Normal 4-hour solid food gastric emptying study. For solid meal, rapid gastric emptying is less than 30% at 60 minutes. Delayed gastric emptying criteria is more than 60% remaining at 120 minutes or more than 10% at 240 minutes. The 4-hour value is the best discriminator of a normal or abnormal result). Gastric emptying study grading per JNMT Consensus Recommendations in 2008 (https://tech.snmjournals.org/content/36/44) Grade 1 (mild retention): 11-20% at 4h Grade 2 (moderate retention): 21-35% at 4h Grade 3 (severe retention): 36-50% at 4h Grade 4 (very severe retention): >50% retention at 4h
== END ==
LOC: HO.NUCMED 07:46
PROVIDERS: PCP Internal Medicine; Visit Provider Nurse Practitioner Family
DX: R68.81 Early satiety (principal)
CPT/HCPCS: 78264; A9541

== ENCOUNTER 2023-10-21 10:57 | Outpatient (REF) | payer MEDICARE, OTHER, SELFPAY ==
[2023-10-21 11:25] LABS: Potassium 2.8 mmol/L (3.3-5.1)
== END 2023-10-21 10:58 | disposition home or self-care (01) ==
LOC: HO.LNP 10:57
PROVIDERS: Visit Provider Internal Medicine
DX: E87.6 Hypokalemia (principal)
CPT/HCPCS: 84132

== ENCOUNTER 2023-10-22 13:33 | Outpatient (AMB) | payer MEDICARE, OTHER, SELFPAY ==
--- NOTE | 2023-10-22 13:55 | A.OFFVIS_ITS ---
Vital Signs 10/22/23 14:04 Height 5 ft 8 in Weight 119 lb 14.903 oz BMI 18.2 BP 140/74 H Blood Pressure Location Rt brachial Position Sitting Pulse 84 Pulse Source Pulse Oximeter Pulse Oximetry (%) 98 Oxygen Delivery Method Room Air Intake Visit Reasons: 1 week follow up Intake Note: Maureen presents in office for a scheduled 1 week FUV. CC: Pt reports that she has been doing well with the exception of seeing their PCP and having their blood work done. Pt reports that they were informed that their potassium has been low again. Pt reports that she has been trying to have the bananas and smoothies/protein shakes in order to supplement her intake. Pt was informed by PCP that they will need to take potassium supplements in order to get their levels back to a normal level. Pt is very concerned regarding this matter because they are worried about taking too much. Pt was also denied the alternative form of potassium which is easier for them to take by their PCP. Weight Loss Consultant Required: No Allergies cephalexin [From KEFLEX] Allergy (Severe, Verified 10/22/23 13:55) RASH Sulfa (Sulfonamide Antibiotics) [SULFA (SULFONAMIDE ANTIBIOTICS)] Allergy (Severe, Verified 10/22/23 13:55) INTSERNAL AND EXTERNAL RASH/INFECTION Iodinated Contrast Media [IV Dye, Iodine Containing] Allergy (Intermediate, Verified 10/22/23 13:55) HIVES,REDNESS + SWELLING sulfamethoxazole [From BACTRIM] Allergy (Intermediate, Verified 10/22/23 13:55) INTERNAL AND EXTERNAL RASH/ INFECTION stent Allergy (Uncoded 10/05/23 07:21) Vomiting HPI HPI 1 week follow up: Details: LAST VISIT Epigastric pain Postprandial epigastric pain GERD (gastroesophageal reflux disease) Dysphagia Dyspepsia Constipation Belching symptom Achalasia Schatzki's ring Hypokalemia Plan Continue current regimen with Nexium. Avoid dietary triggers long discussion about food that patient should and should not eat. List of food high in potassium given to patient. Patient will try slowly to avoid worsening symptoms. Patient was encouraged to try 1 item every few days not to irritate her stomach. Avoid eating late at night. PCP is to follow her potassium level. Patient states that she will have drawn next Wednesday. Patient was also encouraged to try to drink Gatorade if she can tolerate. Continue avoiding lactose and gluten. Avoid sweets and fruits that are high in sugar. Continue low FODMAP diet. Discussed with patient that this might take time and she needs to be patient. Her allergen test came back negative. Normal eosinophilic count and biopsy did not show high eosinophilic count, hence negative eosinophilic esophagitis. Patient will follow-up next week. She will call our office if she will have any GI concerning symptoms. Patient is going for her gastric emptying study on Wednesday. Hold Nexium the morning of the test. Patient can take it as soon as she gets home. Patient is agreeable to plan of care and verbalizes understanding of instructions. She was given the opportunity to ask questions and all questions answered. ? Thank you for allowing me participate in her care Medications Refilled esomeprazole magnesium 20 mg PO BID 60 caps 2RF TODAY'S VISIT Patient is here today for follow-up. Patient reports to be feeling better. Patient no longer is waking up in the middle of the night burping. She is tolerating Nexium well. One episode of increase mucus, waking up in the middle of the night burping few times and then patient was able to go back to sleep. Patient continues to have low potassium. Barium swallow showed gastritis as well as esophagitis. Patient most likely have trouble absorbing nutrients that includes potassium from food that she is consuming. Patient is eating banana every day and tries to other food that contains potassium, however due to her severe symptoms of inability to tolerate certain food like beef, greens she is quite limited. Patient has not tried sports drinks like Gatorade or other yet. Currently she is trying to increase protein intake. Patient was told by PCP to start taking 40 mEq potassium today and 20 mEq use for the next couple days. Patient reports that her level was 2.8 today. No report received from PCP regards to results. Patient reports that her PCP will follow-up and will repeat potassium on Wednesday. Patient was told to take tablets. Patient reports that the tablets are quite large and she is afraid she is not able to swallow them. I have discussed with patient that due to gastritis and erosive esophagitis and inability to swallow tablets she can take liquid potassium for easier swallowing and better absorption. Liquid potassium will also be less irritating to her stomach mucosa. Patient will take it with food. [facility] Medical History Erosive esophagitis Kidney stone GERD (gastroesophageal reflux disease) High cholesterol HTN (hypertension) Surgical History H/O lithotripsy H/O esophagogastroduodenoscopy (07/09/23) Social History Alcohol intake: never Patient Tobacco Use Status: Never used Tobacco Advance Directives Date on File: 09/22/23 Review of Systems Const Denies weight gain and Denies weight loss ENT Reports no additional complaints, Denies dysphagia and Denies odynophagia Card Reports no additional complaints Resp Reports no additional complaints GI Denies abdominal pain, Reports belching, Denies melena, Reports bloating, Denies change in bowel habits, Denies dysphagia, Denies excessive flatus, Reports dyspepsia, Reports heartburn, Denies diarrhea, Denies loose stools, Denies nausea, Denies odynophagia and Denies vomiting Reports no additional complaints Musc Reports no additional complaints Neuro Reports no additional complaints Psych Reports no additional complaints Endo Reports no additional complaints Physical Exam Vital Signs: Last Vital Signs Pulse 84 10/22/23 14:04 BP 140/74 H 10/22/23 14:04 Pulse Ox 98 10/22/23 14:04 Oxygen Delivery Method Room Air 10/22/23 14:04 BMI result Body Mass Index 18.2 Const General: no acute distress Orientation/consciousness: patient oriented x3 Resp Effort & Inspection: normal respiratory effort, able to speak in complete sentences, no tracheal deviation and symmetric chest movement Auscultation: clear to auscultation bilaterally Cardio Rate: regular rate GI Inspection: Yes normal to inspection and No distended Palpation (GI): Soft to palpation, not firm, nontender and No hepatosplenomegaly present Auscultation: normal bowel sounds General: Yes no CVA tenderness Back/Spine/Pelvis Back: no CVA tenderness Skin General skin exam: elasticity normal, turgor normal and dry skin Neuro General: patient oriented x3 Psych Appearance: grossly normal Mental Status: mental status grossly normal Results Reviewed Results Reviewed: BARIUM SWALLOW 10/12/2023 IMPRESSION: 1. Mild to moderate cricopharyngeal achalasia 2. The upper and mid esophageal mucosa continues to have a granular appearance with multiple foci of contrast pooling suggestive of erosive esophagitis. 3. Persistent esophageal dysmotility. 4. Interval improvement of the GE junction without evidence of narrowing. 5. Thickened appearance of the gastric rugal folds with multiple tiny foci of contrast pooling suggesting erosive gastritis. GASTRIC EMPTYING STUDY 10/18/2023 FINDINGS: There is good visualization of activity in the stomach immediately post ingestion. As the study progresses, there is good clearance of activity from the stomach and visualization of progressively increasing small bowel activity. By the end of the study, there is almost no retention noted in the stomach. Retention in the stomach at each time interval was: 1 hour 57% (normal 37%-90%) 2 hours 45% (normal 30%-60%) 3 hours 28% 4 hours 5% (normal 0%-10%) Assessment & Plan Assessment & Plan (1) Epigastric pain: Code(s): R10.13 - Epigastric pain Category: Medical (2) Postprandial epigastric pain: Code(s): R10.13 - Epigastric pain (3) GERD (gastroesophageal reflux disease): Code(s): K21.9 - Gastro-esophageal reflux disease without esophagitis Qualifiers: Esophagitis presence: esophagitis presence not specified Qualified Code(s): K21.9 - Gastro-esophageal reflux disease without esophagitis (4) Dysphagia: Code(s): R13.10 - Dysphagia, unspecified Qualifiers: Dysphagia type: esophageal phase Qualified Code(s): R13.19 - Other dysphagia (5) Dyspepsia: Code(s): R10.13 - Epigastric pain (6) Constipation: Code(s): K59.00 - Constipation, unspecified Qualifiers: Constipation type: slow transit constipation Qualified Code(s): K59.01 - Slow transit constipation (7) Belching symptom: Code(s): R14.2 - Eructation (8) Achalasia: Code(s): K22.0 - Achalasia of cardia (9) Schatzki's ring: Code(s): K22.2 - Esophageal obstruction (10) Hypokalemia: Code(s): E87.6 - Hypokalemia Plan Continue current diet plan. Continue protein shakes. Patient can take potassium as ordered by PCP, however patient should try liquid for less irritation. Patient will try sports drinks that include electrolytes. Continue Nexium 20 mg twice a day She will follow-up in 2 weeks. She will call our office if her symptoms will get worse or she will develop any additional GI concerning symptoms. Patient is agreeable to this plan and verbalizes understanding of instructions. She was given the opportunity to ask questions and all questions answered. Thank you for allowing me to participate in her care Coding Level of Care Code Est Pt Level 4 (78413) Diagnoses Epigastric pain R10.13 Postprandial epigastric pain R10.13 Gastroesophageal reflux disease, unspecified whether esophagitis present K21.9 Esophagitis presence: esophagitis presence not specified Esophageal dysphagia R13.19 Dysphagia type: esophageal phase Dyspepsia R10.13 Slow transit constipation K59.01 Constipation type: slow transit constipation Belching symptom R14.2 Achalasia K22.0 Schatzki's ring K22.2 Hypokalemia E87.6 Time Spent (min) 35 Comment 25 minutes spent with patient and additional 10 minutes spent reviewing her records
[2023-10-22 14:04] VITALS: BP 140/74; PULSE 84; O2SAT 98; BMI 18.2
== END 2023-10-22 14:50 | disposition home or self-care (01) ==
PROVIDERS: PCP Internal Medicine; Visit Provider Nurse Practitioner Family
DX: R10.13 Epigastric pain (principal); K21.9 Gastro-esophageal reflux disease without esophagitis; R13.19 Other dysphagia; K59.01 Slow transit constipation; R14.2 Eructation; K22.0 Achalasia of cardia; K22.2 Esophageal obstruction; E87.6 Hypokalemia
CPT/HCPCS: 99214

== ENCOUNTER → 2023-10-22 13:33 | Outpatient (BNVA) | payer MEDICARE, OTHER, SELFPAY | PROVIDERS: PCP Internal Medicine; Visit Provider Nurse Practitioner Family | DX: R10.13 Epigastric pain (principal); R13.19 Other dysphagia; R14.2 Eructation; K21.9 Gastro-esophageal reflux disease without esophagitis; K59.01 Slow transit constipation; K22.0 Achalasia of cardia; K22.2 Esophageal obstruction; E87.6 Hypokalemia | CPT/HCPCS: 99212 ==

== ENCOUNTER 2023-10-25 11:16 | Outpatient (REF) | payer MEDICARE, OTHER, SELFPAY ==
[2023-10-25 11:27] LABS: Potassium 3.4 mmol/L (3.3-5.1)
== END 2023-10-25 11:17 | disposition home or self-care (01) ==
LOC: HO.LNP 11:16
PROVIDERS: Visit Provider Internal Medicine
DX: E87.6 Hypokalemia (principal)
CPT/HCPCS: 84132

== ENCOUNTER 2023-11-01 11:04 | Outpatient (REF) | payer MEDICARE, OTHER, SELFPAY ==
[2023-11-01 11:38] LABS: Potassium 3.7 mmol/L (3.3-5.1)
== END 2023-11-01 11:05 | disposition home or self-care (01) ==
LOC: HO.LNP 11:04
PROVIDERS: Visit Provider Internal Medicine
DX: E87.6 Hypokalemia (principal)
CPT/HCPCS: 84132

== ENCOUNTER 2023-11-02 14:30 | Outpatient (AMB) | payer MEDICARE, OTHER, SELFPAY ==
--- NOTE | 2023-11-02 14:36 | MHC.OFFVIS ---
Vital Signs 11/02/23 14:38 Height 5 ft 8 in Weight 116 lb 13.52 oz BMI 17.8 BP 126/63 Blood Pressure Location Lt brachial Position Sitting Pulse 83 Intake Visit Reasons: 2 week follow up Intake Note: Maureen presents in the office as a 2 week follow up. CC: Weight loss, belching, acid reflux, phlegm. 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 Former Required: No Allergies cephalexin [From KEFLEX] Allergy (Severe, Verified 11/02/23 14:40) RASH Sulfa (Sulfonamide Antibiotics) [SULFA (SULFONAMIDE ANTIBIOTICS)] Allergy (Severe, Verified 11/02/23 14:40) INTSERNAL AND EXTERNAL RASH/INFECTION Iodinated Contrast Media [IV Dye, Iodine Containing] Allergy (Intermediate, Verified 11/02/23 14:40) HIVES,REDNESS + SWELLING sulfamethoxazole [From BACTRIM] Allergy (Intermediate, Verified 11/02/23 14:40) INTERNAL AND EXTERNAL RASH/ INFECTION stent Allergy (Uncoded 11/02/23 14:40) Vomiting HPI HPI 2 week follow up: Details: LAST VISIT: Epigastric pain Postprandial epigastric pain GERD (gastroesophageal reflux disease) Dysphagia Dyspepsia Constipation Belching symptom Achalasia Schatzki's ring Hypokalemia Plan Continue current diet plan. Continue protein shakes. Patient can take potassium as ordered by PCP, however patient should try liquid for less irritation. Patient will try sports drinks that include electrolytes. Continue Nexium 20 mg twice a day She will follow-up in 2 weeks. She will call our office if her symptoms will get worse or she will develop any additional GI concerning symptoms. Patient is agreeable to this plan and verbalizes understanding of instructions. She was given the opportunity to ask questions and all questions answered. TODAY'S VISIT Patient is here today for follow-up. Patient reports that she has been feeling well whole week until Wednesday. Wednesday eating her made chicken meat loaf and after dinner patient started with belching, increase phlegm. Patient called medical collections specialist and spoke to Dr. Hudson who recommended Benadryl or Mylanta. Patient did not have Benadryl or Mylanta at home and end up going to sleep sleeping only couple hours that night. The next day patient states that she felt fine and as of today she has not had the symptoms yet. Patient is trying to avoid dietary triggers taking Nexium twice a day and so far doing well. Potassium levels are being monitored by PCP and they are stable. Yesterday 3.7. Patient currently is taking 20 mEq of potassium daily and was told to take it till next visit with her PCP. Patient denies any nausea or vomiting. Patient denies any dysphagia. Denies any abdominal pain or discomfort. Reports that she is moving her bowels well without any issues. Denies melena, hematochezia, unintentional weight loss or ribbon like stools. [facility] Medical History Erosive esophagitis Kidney stone GERD (gastroesophageal reflux disease) High cholesterol HTN (hypertension) Surgical History H/O lithotripsy H/O esophagogastroduodenoscopy (07/09/23) Social History Alcohol intake: never Patient Tobacco Use Status: Never used Tobacco Advance Directives Date on File: 09/22/23 Review of Systems Const Denies weight gain and Denies weight loss ENT Reports no additional complaints, Denies dysphagia and Denies odynophagia Card Reports no additional complaints Resp Reports no additional complaints GI Denies abdominal pain, Reports belching (Improved), Denies melena, Reports bloating (Improved), Denies change in bowel habits, Denies dysphagia, Denies excessive flatus, Reports dyspepsia (1 episode), Reports heartburn (1 episode), Denies diarrhea, Denies loose stools, Denies nausea, Denies odynophagia and Denies vomiting Reports no additional complaints Musc Reports no additional complaints Neuro Reports no additional complaints Psych Reports no additional complaints Endo Reports no additional complaints Physical Exam Vital Signs: Last Vital Signs Pulse 83 11/02/23 14:38 BP 126/63 11/02/23 14:38 BMI result Body Mass Index 17.8 Const General: no acute distress Orientation/consciousness: patient oriented x3 Resp Effort & Inspection: normal respiratory effort, able to speak in complete sentences, no tracheal deviation and symmetric chest movement Auscultation: clear to auscultation bilaterally Cardio Rate: regular rate GI Inspection: Yes normal to inspection and No distended Palpation (GI): Soft to palpation, not firm, nontender and No hepatosplenomegaly present Auscultation: normal bowel sounds General: Yes no CVA tenderness Back/Spine/Pelvis Back: no CVA tenderness Skin General skin exam: elasticity normal, turgor normal and dry skin Neuro General: patient oriented x3 Psych Appearance: grossly normal Mental Status: mental status grossly normal Assessment & Plan Assessment & Plan (1) Epigastric pain: Code(s): R10.13 - Epigastric pain Category: Medical (2) Postprandial epigastric pain: Code(s): R10.13 - Epigastric pain (3) GERD (gastroesophageal reflux disease): Code(s): K21.9 - Gastro-esophageal reflux disease without esophagitis Qualifiers: Esophagitis presence: with esophagitis Esophagitis bleeding: without hemorrhage Qualified Code(s): K21.00 - Gastro-esophageal reflux disease with esophagitis, without bleeding (4) Dysphagia: Code(s): R13.10 - Dysphagia, unspecified Qualifiers: Dysphagia type: esophageal phase Qualified Code(s): R13.19 - Other dysphagia (5) Dyspepsia: Code(s): R10.13 - Epigastric pain (6) Constipation: Code(s): K59.00 - Constipation, unspecified Qualifiers: Constipation type: slow transit constipation Qualified Code(s): K59.01 - Slow transit constipation (7) Belching symptom: Code(s): R14.2 - Eructation (8) Achalasia: Code(s): K22.0 - Achalasia of cardia (9) Schatzki's ring: Code(s): K22.2 - Esophageal obstruction (10) Hypokalemia: Code(s): E87.6 - Hypokalemia Plan Continue current therapy with Nexium twice a day. Continue avoiding dietary triggers and late night snacking. Patient was encouraged to take Benadryl if she has increase saliva, however to avoid feeling sleepy patient was encouraged to take Zyrtec daily to help decrease her mucus. Potassium level is being managed by PCP as well as replacement if potassium low. Patient will try to introduce lactose free cottage cheese, cream cheese and sour cream. Patient tried male and did okay with that. Continue protein shakes to help her gain weight. Follow-up in 2 weeks, sooner on as needed basis. Patient is agreeable to this plan and verbalizes understanding of instructions. She was given the opportunity to ask questions and all questions answered. Thank you for allowing me to participate in her care Coding Level of Care Code Est Pt Level 3 (61981) Diagnoses Epigastric pain R10.13 Postprandial epigastric pain R10.13 Gastroesophageal reflux disease with esophagitis without hemorrhage K21.00 Esophagitis presence: with esophagitis Esophagitis bleeding: without hemorrhage Esophageal dysphagia R13.19 Dysphagia type: esophageal phase Dyspepsia R10.13 Slow transit constipation K59.01 Constipation type: slow transit constipation Belching symptom R14.2 Achalasia K22.0 Schatzki's ring K22.2 Hypokalemia E87.6 Time Spent (min) 30 Comment 20 minutes spent with patient and additional 10 minutes spent reviewing her records
[2023-11-02 14:38] VITALS: BP 126/63; PULSE 83; BMI 17.8
== END 2023-11-02 15:40 | disposition home or self-care (01) ==
PROVIDERS: PCP Internal Medicine; Visit Provider Nurse Practitioner Family
DX: R10.13 Epigastric pain (principal); K21.00 Gastro-esophageal reflux disease with esophagitis, without bleeding; R13.19 Other dysphagia; K59.01 Slow transit constipation; R14.2 Eructation; K22.0 Achalasia of cardia; K22.2 Esophageal obstruction; E87.6 Hypokalemia
CPT/HCPCS: 99213

== ENCOUNTER → 2023-11-02 14:30 | Outpatient (BNVA) | payer MEDICARE, OTHER, SELFPAY | PROVIDERS: PCP Internal Medicine; Visit Provider Nurse Practitioner Family | DX: R10.13 Epigastric pain (principal); K21.00 Gastro-esophageal reflux disease with esophagitis, without bleeding; R13.19 Other dysphagia; K59.01 Slow transit constipation; R14.2 Eructation; K22.0 Achalasia of cardia; K22.2 Esophageal obstruction; E78.6 Lipoprotein deficiency | CPT/HCPCS: 99212 ==

== ENCOUNTER 2023-11-11 16:10 | Outpatient (REF) | payer MEDICARE, OTHER, SELFPAY ==
[2023-11-11 16:17] LABS: Potassium 4.4 mmol/L (3.3-5.1)
== END 2023-11-11 16:11 | disposition home or self-care (01) ==
LOC: HO.LNP 16:10
PROVIDERS: Visit Provider Internal Medicine
DX: E87.6 Hypokalemia (principal)
CPT/HCPCS: 84132

== ENCOUNTER 2023-11-16 11:58 | Outpatient (AMB) | payer MEDICARE, OTHER, SELFPAY ==
--- NOTE | 2023-11-16 12:09 | A.OFFVIS_ITS ---
Vital Signs 11/16/23 12:19 Height 5 ft 8 in Weight 114 lb 10.246 oz BMI 17.4 BP 136/74 Blood Pressure Location Rt brachial Position Sitting Pulse 78 Pulse Source Pulse Oximeter Pulse Oximetry (%) 97 Oxygen Delivery Method Room Air Intake Visit Reasons: 2 week follow up Intake Note: Maureen presents in office today for a scheduled 2 week FUV. CC; Pt reports that she is still concerned about her unintentional weight loss. Pt has been doing fairly ok, and having good and bad days. Pt has been sticking to the strict diet regimen. Pt does have some difficulties however, with GERD sx. Pt had particular difficulties over the course of the most recent weekend with reflux and phlegm production. Pt recent potassium is increased slightly since last reading. Pt still WNL. Currently taking 20 meq every other day to maintain potassium at current level. Pt also recently taken off of Lisinopril based on recent episode of hypotension. 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: No Allergies cephalexin [From KEFLEX] Allergy (Severe, Verified 11/16/23 12:10) RASH Sulfa (Sulfonamide Antibiotics) [SULFA (SULFONAMIDE ANTIBIOTICS)] Allergy (Severe, Verified 11/16/23 12:10) INTSERNAL AND EXTERNAL RASH/INFECTION Iodinated Contrast Media [IV Dye, Iodine Containing] Allergy (Intermediate, Verified 11/16/23 12:10) HIVES,REDNESS + SWELLING sulfamethoxazole [From BACTRIM] Allergy (Intermediate, Verified 11/16/23 12:10) INTERNAL AND EXTERNAL RASH/ INFECTION stent Allergy (Uncoded 11/02/23 14:40) Vomiting HPI HPI 2 week follow up: Details: LAST VISIT: Epigastric pain Postprandial epigastric pain GERD (gastroesophageal reflux disease) Dysphagia Dyspepsia Constipation Belching symptom Achalasia Schatzki's ring Hypokalemia Plan Continue current therapy with Nexium twice a day. Continue avoiding dietary tri ggers and late night snacking. Patient was encouraged to take Benadryl if she has increase saliva, however to avoid feeling sleepy patient was encouraged to take Zyrtec daily to help decrease her mucus. Potassium level is being managed by PCP as well as replacement if potassium low. Patient will try to introduce lactose free cottage cheese, cream cheese and sour cream. Patient tried male and did okay with that. Continue protein shakes to help her gain weight. Follow-up in 2 weeks, sooner on as needed basis. Patient is agreeable to this plan and verbalizes understanding of instructions. She was given the opportunity to ask questions and all questions answered. TODAY'S VISIT Patient is here today for follow-up. Patient reports that she has done well during the week, however last Wednesday patient had symptoms of belching again with increased mucus. Patient states that she did not change anything that she was eating. Patient's thinks that she gets anxious on the weekends. Patient still did not gain weight. She reports that her believes that she does not eat enough. Patient does eat small amounts and eats about 3 meals a day. Her potassium level 4.4 on Wednesday. Her PCP has her take 10 mEq daily, however patient is unable to divide the dose so she is taking 20 mEq every other day. Discussed with patient that patient can take half of the powder by placing the powder in measuring tsp and take half the dose daily. Patient denies any nausea or vomiting. Patient has 1 milk shake a day and 1 banana day. Patient would like to see if she can try different food. Was able to get lactose free sour cream ? [facility] Medical History Erosive esophagitis Kidney stone GERD (gastroesophageal reflux disease) High cholesterol HTN (hypertension) Surgical History H/O lithotripsy H/O esophagogastroduodenoscopy (07/09/23) Social History Alcohol intake: never Patient Tobacco Use Status: Never used Tobacco Advance Directives Date on File: 09/22/23 Review of Systems Const Denies weight gain and Denies weight loss ENT Reports no additional complaints, Denies dysphagia and Denies odynophagia Card Reports no additional complaints Resp Reports no additional complaints GI Denies abdominal pain, Reports belching (Improved), Denies melena, Reports bloating (Improved), Denies change in bowel habits, Denies dysphagia, Denies excessive flatus, Reports dyspepsia (1 episode), Reports heartburn (1 episode), Denies diarrhea, Denies loose stools, Denies nausea, Denies odynophagia and Denies vomiting Reports no additional complaints Musc Reports no additional complaints Neuro Reports no additional complaints Psych Reports no additional complaints Endo Reports no additional complaints Physical Exam Vital Signs: Last Vital Signs Pulse 78 11/16/23 12:19 BP 136/74 11/16/23 12:19 Pulse Ox 97 11/16/23 12:19 Oxygen Delivery Method Room Air 11/16/23 12:19 BMI result Body Mass Index 17.4 Const General: no acute distress Orientation/consciousness: patient oriented x3 Resp Effort & Inspection: normal respiratory effort, able to speak in complete sentences, no tracheal deviation and symmetric chest movement Auscultation: clear to auscultation bilaterally Cardio Rate: regular rate GI Inspection: Yes normal to inspection and No distended Palpation (GI): Soft to palpation, not firm, nontender and No hepatosplenomegaly present Auscultation: normal bowel sounds General: Yes no CVA tenderness Back/Spine/Pelvis Back: no CVA tenderness Skin General skin exam: elasticity normal, turgor normal and dry skin Neuro General: patient oriented x3 Psych Appearance: grossly normal Mental Status: mental status grossly normal Assessment & Plan Assessment & Plan (1) Epigastric pain: Code(s): R10.13 - Epigastric pain Category: Medical (2) Postprandial epigastric pain: Code(s): R10.13 - Epigastric pain (3) GERD (gastroesophageal reflux disease): Code(s): K21.9 - Gastro-esophageal reflux disease without esophagitis Qualifiers: Esophagitis presence: with esophagitis Esophagitis bleeding: without hemorrhage Qualified Code(s): K21.00 - Gastro-esophageal reflux disease with esophagitis, without bleeding (4) Dysphagia: Code(s): R13.10 - Dysphagia, unspecified Qualifiers: Dysphagia type: esophageal phase Qualified Code(s): R13.19 - Other dysphagia (5) Dyspepsia: Code(s): R10.13 - Epigastric pain (6) Constipation: Code(s): K59.00 - Constipation, unspecified Qualifiers: Constipation type: slow transit constipation Qualified Code(s): K59.01 - Slow transit constipation (7) Belching symptom: Code(s): R14.2 - Eructation (8) Achalasia: Code(s): K22.0 - Achalasia of cardia (9) Schatzki's ring: Code(s): K22.2 - Esophageal obstruction (10) Hypokalemia: Code(s): E87.6 - Hypokalemia Plan Continue current treatment with Nexium. May take famotidine at bedtime. Follow PCP instructions on how to take potassium and follow with him in the office for checking the levels. Patient will add egg bites: Eggs blended with cottage cheese and maloney in the muffin nieves likely discuss in the office. Patient will try sort fish. Continue with ground chicken. Avoid beef, shaver, pork. Patient was encouraged to eat minimum 5 times a day. Follow-up in the office in 1-2 weeks. Patient will call the office if she will have worsening GI symptoms. She is agreeable to this plan and verbalizes understanding of instructions. She was given the opportunity to ask questions and all questions answered. Thank you for allowing me to participate in her care Coding Level of Care Code Est Pt Level 3 (96351) Diagnoses Epigastric pain R10.13 Postprandial epigastric pain R10.13 Gastroesophageal reflux disease with esophagitis without hemorrhage K21.00 Esophagitis presence: with esophagitis Esophagitis bleeding: without hemorrhage Esophageal dysphagia R13.19 Dysphagia type: esophageal phase Dyspepsia R10.13 Slow transit constipation K59.01 Constipation type: slow transit constipation Belching symptom R14.2 Achalasia K22.0 Schatzki's ring K22.2 Hypokalemia E87.6 Time Spent (min) 30 Comment 20 minutes spent with patient and additional 10 minutes spent reviewing her records
[2023-11-16 12:19] VITALS: BP 136/74; PULSE 78; O2SAT 97; BMI 17.4
== END 2023-11-16 12:59 | disposition home or self-care (01) ==
PROVIDERS: PCP Internal Medicine; Visit Provider Nurse Practitioner Family
DX: R10.13 Epigastric pain (principal); K21.00 Gastro-esophageal reflux disease with esophagitis, without bleeding; R13.19 Other dysphagia; K59.01 Slow transit constipation; R14.2 Eructation; K22.0 Achalasia of cardia; K22.2 Esophageal obstruction; E87.6 Hypokalemia
CPT/HCPCS: 99213

== ENCOUNTER → 2023-11-16 11:58 | Outpatient (BNVA) | payer MEDICARE, OTHER, SELFPAY | PROVIDERS: PCP Internal Medicine; Visit Provider Nurse Practitioner Family | DX: K21.9 Gastro-esophageal reflux disease without esophagitis (principal); K21.00 Gastro-esophageal reflux disease with esophagitis, without bleeding; K59.01 Slow transit constipation; K22.0 Achalasia of cardia; R63.4 Abnormal weight loss; R10.13 Epigastric pain; R13.19 Other dysphagia; R14.2 Eructation; E87.6 Hypokalemia | CPT/HCPCS: 99212 ==

== ENCOUNTER 2023-11-24 11:41 | Outpatient (AMB) | payer MEDICARE, OTHER, SELFPAY ==
--- NOTE | 2023-11-24 11:56 | MHC.OFFVIS ---
Vital Signs 11/24/23 12:00 Height 5 ft 8 in Weight 115 lb 1.301 oz BMI 17.5 BP 128/72 Blood Pressure Location Rt brachial Position Sitting Pulse 76 Pulse Source Pulse Oximeter Pulse Oximetry (%) 99 Oxygen Delivery Method Room Air Intake Visit Reasons: 1 week follow up Intake Note: Maureen presents in office today for a scheduled 1 week FUV. CC; Pt states that they had a few bad days early in the week, after that, she seemed to be doing much better and has remained so up until this point. Waste Specialist Required: No Allergies cephalexin [From KEFLEX] Allergy (Severe, Verified 11/24/23 12:00) RASH Sulfa (Sulfonamide Antibiotics) [SULFA (SULFONAMIDE ANTIBIOTICS)] Allergy (Severe, Verified 11/24/23 12:00) INTSERNAL AND EXTERNAL RASH/INFECTION Iodinated Contrast Media [IV Dye, Iodine Containing] Allergy (Intermediate, Verified 11/24/23 12:00) HIVES,REDNESS + SWELLING sulfamethoxazole [From BACTRIM] Allergy (Intermediate, Verified 11/24/23 12:00) INTERNAL AND EXTERNAL RASH/ INFECTION stent Allergy (Uncoded 11/02/23 14:40) Vomiting HPI HPI 1 week follow up: Details: LAST VISIT Epigastric pain Postprandial epigastric pain GERD (gastroesophageal reflux disease) Dysphagia Dyspepsia Constipation Belching symptom Achalasia Schatzki's ring Hypokalemia Plan Continue current treatment with Nexium. May take famotidine at bedtime. Follow PCP instructions on how to take potassium and follow with him in the office for checking the levels. Patient will add egg bites: Eggs blended with cottage cheese and maloney in the muffin nieves like we discussed in the office. Patient will try sort fish. Continue with ground chicken. Avoid beef, shaver, pork. Patient was encouraged to eat minimum 5 times a day. Follow-up in the office in 1-2 weeks. Patient will call the office if she will have worsening GI symptoms. She is agreeable to this plan and verbalizes understanding of instructions. She was given the opportunity to ask questions and all questions answered. ? TODAY'S VISIT Patient is here today for follow-up. Patient reports that she continues to take Nexium as ordered famotidine at bedtime. Patient states that she is trying more food and is able to tolerate all the food that she tried so far. Patient reports that she has been doing well, however she states that last week she had couple days where she had increased phlegm and was burping a lot specially at night time and was up for couple hours before she was able to go to sleep. Patient denies any nausea or vomiting. Patient's potassium level normalized. She continues to take 20 mEq every other day. Patient reports that she is moving her bowels well. Denies dyspepsia, dysphagia or odynophagia. [facility] Medical History Erosive esophagitis Kidney stone GERD (gastroesophageal reflux disease) High cholesterol HTN (hypertension) Surgical History H/O lithotripsy H/O esophagogastroduodenoscopy (07/09/23) Social History Alcohol intake: never Patient Tobacco Use Status: Never used Tobacco Advance Directives Date on File: 09/22/23 Review of Systems Const Denies weight gain and Denies weight loss ENT Reports no additional complaints, Denies dysphagia and Denies odynophagia Card Reports no additional complaints Resp Reports no additional complaints GI Denies abdominal pain, Reports belching (Improved), Denies melena, Reports bloating (Improved), Denies change in bowel habits, Denies dysphagia, Denies excessive flatus, Reports dyspepsia (1 episode), Reports heartburn (1 episode), Denies diarrhea, Denies loose stools, Denies nausea, Denies odynophagia and Denies vomiting Reports no additional complaints Musc Reports no additional complaints Neuro Reports no additional complaints Psych Reports no additional complaints Endo Reports no additional complaints Physical Exam Vital Signs: Last Vital Signs Pulse 76 11/24/23 12:00 BP 128/72 07/24/24 12:00 Pulse Ox 99 11/24/23 12:00 Oxygen Delivery Method Room Air 11/24/23 12:00 BMI result Body Mass Index 17.5 Const General: no acute distress Orientation/consciousness: patient oriented x3 Resp Effort & Inspection: normal respiratory effort, able to speak in complete sentences, no tracheal deviation and symmetric chest movement Auscultation: clear to auscultation bilaterally Cardio Rate: regular rate GI Inspection: Yes normal to inspection and No distended Palpation (GI): Soft to palpation, not firm, nontender and No hepatosplenomegaly present Auscultation: normal bowel sounds General: Yes no CVA tenderness Back/Spine/Pelvis Back: no CVA tenderness Skin General skin exam: elasticity normal, turgor normal and dry skin Neuro General: patient oriented x3 Psych Appearance: grossly normal Mental Status: mental status grossly normal Assessment & Plan Assessment & Plan (1) Epigastric pain: Code(s): R10.13 - Epigastric pain Category: Medical (2) GERD (gastroesophageal reflux disease): Code(s): K21.9 - Gastro-esophageal reflux disease without esophagitis Qualifiers: Esophagitis presence: with esophagitis Esophagitis bleeding: without hemorrhage Qualified Code(s): K21.00 - Gastro-esophageal reflux disease with esophagitis, without bleeding (3) Dyspepsia: Code(s): R10.13 - Epigastric pain (4) Constipation: Code(s): K59.00 - Constipation, unspecified Qualifiers: Constipation type: slow transit constipation Qualified Code(s): K59.01 - Slow transit constipation (5) Belching symptom: Code(s): R14.2 - Eructation (6) Achalasia: Code(s): K22.0 - Achalasia of cardia (7) Schatzki's ring: Code(s): K22.2 - Esophageal obstruction (8) Hypokalemia: Code(s): E87.6 - Hypokalemia Plan Continue current treatment with PPI and H2 jose francisco. Smaller meals and more often. Continue diet as we discussed in the office today. May add additional food slowly. Avoid adding more than 1 every 2-3 days to observe for recurrence of symptoms. Continue lactose free shakes. Making sure that patient is moving her bowels daily. Increase fluid intake and activity to promote good bowel motility. Follow-up in 2 weeks, sooner on as needed basis. She is agreeable to this plan and verbalizes understanding of instructions. She was given the opportunity to ask questions and all questions answered. Thank you for allowing me to participate in her care Coding Level of Care Code Est Pt Level 3 (46501) Diagnoses Epigastric pain R10.13 Gastroesophageal reflux disease with esophagitis without hemorrhage K21.00 Esophagitis presence: with esophagitis Esophagitis bleeding: without hemorrhage Dyspepsia R10.13 Slow transit constipation K59.01 Constipation type: slow transit constipation Belching symptom R14.2 Achalasia K22.0 Schatzki's ring K22.2 Hypokalemia E87.6 Time Spent (min) 30 Comment 20 minutes spent with patient and additional 10 minutes spent reviewing her records
[2023-11-24 12:00] VITALS: BP 128/72; PULSE 76; O2SAT 99; BMI 17.5
== END 2023-11-24 12:50 | disposition home or self-care (01) ==
PROVIDERS: PCP Internal Medicine; Visit Provider Nurse Practitioner Family
DX: R10.13 Epigastric pain (principal); K21.00 Gastro-esophageal reflux disease with esophagitis, without bleeding; K59.01 Slow transit constipation; R14.2 Eructation; K22.0 Achalasia of cardia; K22.2 Esophageal obstruction; E87.6 Hypokalemia
CPT/HCPCS: 99213

== ENCOUNTER → 2023-11-24 11:41 | Outpatient (BNVA) | payer MEDICARE, OTHER, SELFPAY | PROVIDERS: PCP Internal Medicine; Visit Provider Nurse Practitioner Family | DX: K21.9 Gastro-esophageal reflux disease without esophagitis (principal); K59.01 Slow transit constipation; R10.13 Epigastric pain; R14.2 Eructation; K22.0 Achalasia of cardia; E87.6 Hypokalemia; Z79.899 Other long term (current) drug therapy | CPT/HCPCS: 99212 ==

== ENCOUNTER 2023-11-25 11:05 | Outpatient (REF) | payer MEDICARE, OTHER, SELFPAY ==
[2023-11-25 12:12] LABS: Potassium 3.9 mmol/L (3.3-5.1)
== END 2023-11-25 11:06 | disposition home or self-care (01) ==
LOC: HO.LNP 11:05
PROVIDERS: Visit Provider Internal Medicine
DX: E87.6 Hypokalemia (principal)
CPT/HCPCS: 84132

== ENCOUNTER 2023-12-08 12:27 | Outpatient (REF) | payer MEDICARE, OTHER, SELFPAY ==
--- NOTE | ~2023-12-08 | XR_ITS ---
EXAMINATION: XR ABDOMEN KUB CLINICAL INDICATION: Calculus of kidney. COMPARISON: Renal ultrasound 06/28/2023. TECHNIQUE: AP view of the abdomen. FINDINGS: Marked degenerative changes are present in the spine. There is no evidence of bowel obstruction. No definitive calcifications can be seen overlying the renal fossa or bladder. Dense contrasts are present in diverticula in the sigmoid and a single phlebolith is noted in the left hemipelvis. XR/XR KUB IMPRESSION: No renal calculi are seen. Degenerative changes are present in the spine. Electronically signed by: Vinny Arango MD 01/06/2024 09:58 PM EDT
== END 2023-12-08 12:28 | disposition home or self-care (01) ==
LOC: HO.XRAY 12:27
PROVIDERS: PCP Internal Medicine; Visit Provider Urology
DX: N20.0 Calculus of kidney (principal); R10.13 Epigastric pain; K22.10 Ulcer of esophagus without bleeding
CPT/HCPCS: 74018; 99212

== ENCOUNTER 2023-12-08 12:59 | Outpatient (AMB) | payer MEDICARE, OTHER, SELFPAY ==
--- NOTE | 2023-12-08 13:00 | MHC.OFFVIS ---
Vital Signs 12/08/23 13:01 Height 5 ft 8 in Weight 112 lb 12.136 oz BMI 17.1 BP 123/68 Blood Pressure Location Lt brachial Position Sitting Pulse 77 Intake Visit Reasons: 2 week follow up Intake Note: Maureen presents in the office as a 2 week follow up. CC: She is discouraged because her weight is still going down. 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 Allergies cephalexin [From KEFLEX] Allergy (Severe, Verified 12/08/23 13:04) RASH Sulfa (Sulfonamide Antibiotics) [SULFA (SULFONAMIDE ANTIBIOTICS)] Allergy (Severe, Verified 12/08/23 13:04) INTSERNAL AND EXTERNAL RASH/INFECTION Iodinated Contrast Media [IV Dye, Iodine Containing] Allergy (Intermediate, Verified 12/08/23 13:04) HIVES,REDNESS + SWELLING sulfamethoxazole [From BACTRIM] Allergy (Intermediate, Verified 12/08/23 13:04) INTERNAL AND EXTERNAL RASH/ INFECTION stent Allergy (Uncoded 12/08/23 13:04) Vomiting HPI HPI 2 week follow up: Details: LAST VISIT Epigastric pain GERD (gastroesophageal reflux disease) Dyspepsia Constipation Belching symptom Achalasia Schatzki's ring Hypokalemia Plan Continue current treatment with PPI and H2 jose francisco. Smaller meals and more often. Continue diet as we discussed in the office today. May add additional food slowly. Avoid adding more than 1 every 2-3 days to observe for recurrence of symptoms. Continue lactose free shakes. Making sure that patient is moving her bowels daily. Increase fluid intake and activity to promote good bowel motility. Follow-up in 2 weeks, sooner on as needed basis. She is agreeable to this plan and verbalizes understanding of instructions. She was given the opportunity to ask questions and all questions answered. TODAY'S VISIT Patient is here today for follow-up. Patient reports that she is very discouraged as she is losing weight. Patient admits that over the past week she has not eat much this she was afraid that she will get sick. Patient states that she was [place] and even though was told that she will be able to get plain rice or results of they were unable to accommodate her. Patient is continuing to avoid dietary triggers. She is on Nexium twice a day and famotidine at bedtime. Potassium has normalized, taking potassium supplements every other day. Patient denies any nausea or vomiting. Couple episode last week with acid reflux and belching. Patient reports that it went away after 1 hour or so. Patient is able to tolerate more food. Reports that she is moving her bowels well. Denies melena, hematochezia. [facility] Medical History Erosive esophagitis Kidney stone GERD (gastroesophageal reflux disease) High cholesterol HTN (hypertension) Surgical History H/O lithotripsy H/O esophagogastroduodenoscopy (07/09/23) Social History Alcohol intake: never Patient Tobacco Use Status: Never used Tobacco Advance Directives Date on File: 09/22/23 Review of Systems Const Denies weight gain and Denies weight loss ENT Reports no additional complaints, Denies dysphagia and Denies odynophagia Card Reports no additional complaints Resp Reports no additional complaints GI Denies abdominal pain, Reports belching (Improved), Denies melena, Reports bloating (Improved), Denies change in bowel habits, Denies dysphagia, Denies excessive flatus, Reports dyspepsia (1 episode), Reports heartburn (1 episode), Denies diarrhea, Denies loose stools, Denies nausea, Denies odynophagia and Denies vomiting Reports no additional complaints Musc Reports no additional complaints Neuro Reports no additional complaints Psych Reports no additional complaints Endo Reports no additional complaints Physical Exam Vital Signs: Last Vital Signs Pulse 77 12/08/23 13:01 BP 123/68 12/08/23 13:01 BMI result Body Mass Index 17.1 Const General: no acute distress Orientation/consciousness: patient oriented x3 Resp Effort & Inspection: normal respiratory effort, able to speak in complete sentences, no tracheal deviation and symmetric chest movement Auscultation: clear to auscultation bilaterally Cardio Rate: regular rate GI Inspection: Yes normal to inspection and No distended Palpation (GI): Soft to palpation, not firm, nontender and No hepatosplenomegaly present Auscultation: normal bowel sounds General: Yes no CVA tenderness Back/Spine/Pelvis Back: no CVA tenderness Skin General skin exam: elasticity normal, turgor normal and dry skin Neuro General: patient oriented x3 Psych Appearance: grossly normal Mental Status: mental status grossly normal Assessment & Plan Assessment & Plan (1) Epigastric pain: Code(s): R10.13 - Epigastric pain Category: Medical (2) Erosive esophagitis: Code(s): K22.10 - Ulcer of esophagus without bleeding Category: Medical (3) GERD (gastroesophageal reflux disease): Code(s): K21.9 - Gastro-esophageal reflux disease without esophagitis Qualifiers: Esophagitis presence: with esophagitis Esophagitis bleeding: without hemorrhage Qualified Code(s): K21.00 - Gastro-esophageal reflux disease with esophagitis, without bleeding (4) Dyspepsia: Code(s): R10.13 - Epigastric pain (5) Belching symptom: Code(s): R14.2 - Eructation (6) Hypokalemia: Code(s): E87.6 - Hypokalemia Plan Patient will continue current dose of Nexium twice a day. Continue avoiding dietary triggers. Introduce food slowly. Avoid late night snacking. Will send patient for MRCP. Referral to dietitian to help with high-calorie food. Patient was encouraged to do high-protein shakes and drink them 2 to 3 times a day. Patient was encouraged to eat more frequently than just sticking to 3 meals a day. Continue to follow-up with PCP for hypokalemia. Last levels normal. Follow-up in 2 weeks, sooner on as needed basis. Patient will call our office if she will have any GI concerning symptoms. She is agreeable to this plan and verbalizes understanding of instructions. She was given the opportunity to ask questions and all questions answered. Thank you for allowing me to participate in her care Orders: Orders MRCP 12/08/23 R63.4 - Abnormal weight loss, K22.10 - Ulcer of esophagus without bleeding, R10.13 - Epigastric pain Referrals Analytical Technician Nutrition Referral R63.4 - Abnormal weight loss Coding Level of Care Code Est Pt Level 3 (01745) Diagnoses Epigastric pain R10.13 Erosive esophagitis K22.10 Gastroesophageal reflux disease with esophagitis without hemorrhage K21.00 Esophagitis presence: with esophagitis Esophagitis bleeding: without hemorrhage Dyspepsia R10.13 Belching symptom R14.2 Hypokalemia E87.6 Time Spent (min) 30 Comment 20 minutes spent with patient and additional 10 minutes spent reviewing her records
[2023-12-08 13:01] VITALS: BP 123/68; PULSE 77; BMI 17.1
== END 2023-12-08 13:53 | disposition home or self-care (01) ==
PROVIDERS: PCP Internal Medicine; Visit Provider Nurse Practitioner Family
DX: R10.13 Epigastric pain (principal); K22.10 Ulcer of esophagus without bleeding; K21.00 Gastro-esophageal reflux disease with esophagitis, without bleeding; R14.2 Eructation; E87.6 Hypokalemia
CPT/HCPCS: 99213

== ENCOUNTER 2023-12-13 10:29 | Outpatient (REF) | payer MEDICARE, OTHER, SELFPAY | END 2023-12-13 10:30 | disposition home or self-care (01) | LOC: HO.LNP 10:29 | PROVIDERS: Visit Provider Internal Medicine | DX: E87.6 Hypokalemia (principal) | CPT/HCPCS: 84132 ==

== ENCOUNTER 2023-12-22 12:52 | Outpatient (AMB) | payer MEDICARE, OTHER, SELFPAY ==
--- NOTE | 2023-12-22 13:07 | A.OFFVIS_ITS ---
Vital Signs 12/22/23 13:08 Height 5 ft 8 in Weight 114 lb 10.246 oz BMI 17.4 BP 110/66 Blood Pressure Location Lt brachial Position Sitting Pulse 72 Pulse Source Pulse Oximeter Pulse Oximetry (%) 100 Oxygen Delivery Method Room Air Intake Visit Reasons: 2 week follow up from dec 07 Intake Note: Maureen presents in office today for a scheduled 2 week FUV. CC; Pt reports that they are doing better since their last visit. Pt has had increased appetite and have been having more good days than bad days . Pt is also anxious about the results of her MRI. Pt states that she had this done on 12/17/2023 through ? 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 Allergies cephalexin [From KEFLEX] Allergy (Severe, Verified 12/22/23 13:07) RASH Sulfa (Sulfonamide Antibiotics) [SULFA (SULFONAMIDE ANTIBIOTICS)] Allergy (Severe, Verified 12/22/23 13:07) INTSERNAL AND EXTERNAL RASH/INFECTION Iodinated Contrast Media [IV Dye, Iodine Containing] Allergy (Intermediate, Verified 12/22/23 13:07) HIVES,REDNESS + SWELLING sulfamethoxazole [From BACTRIM] Allergy (Intermediate, Verified 12/22/23 13:07) INTERNAL AND EXTERNAL RASH/ INFECTION stent Allergy (Uncoded 12/08/23 13:04) Vomiting HPI HPI 2 week follow up from dec 07: Details: LAST VISIT: Epigastric pain Erosive esophagitis GERD (gastroesophageal reflux disease) Dyspepsia Belching symptom Hypokalemia Plan Patient will continue current dose of Nexium twice a day. Continue avoiding dietary triggers. Introduce food slowly. Avoid late night snacking. Will send patient for MRCP. Referral to dietitian to help with high-calorie food. Patient was encouraged to do high-protein shakes and drink them 2 to 3 times a day. Patient was encouraged to eat more frequently than just sticking to 3 meals a day. Continue to follow-up with PCP for hypokalemia. Last levels normal. Follow- up in 2 weeks, sooner on as needed basis. Patient will call our office if she will have any GI concerning symptoms. She is agreeable to this plan and verbalizes understanding of instructions. She was given the opportunity to ask questions and all questions answered. ? Thank you for allowing me to participate in her care Orders Orders MR MRCP 12/08/23 R63.4, K22.10, R10.13 Referrals [employer] Nutrition Referral R63.4 TODAY'S VISIT: Patient is here today for follow-up. Patient reports that she has been feeling much better since the last visit. Patient is able to tolerate more food. Only couple episodes in the last couple weeks where she had 2-3 hours of belching episodes. Patient reports that she is moving her bowels well. Denies any dyspepsia, dysphagia or odynophagia. Patient states that she is eating more often, smaller meals. Patient has appointment with dietitian in January. MRCP was normal. Normal liver, spleen, pancreas, gallbladder. [facility] Medical History Erosive esophagitis Kidney stone GERD (gastroesophageal reflux disease) High cholesterol HTN (hypertension) Surgical History H/O lithotripsy H/O esophagogastroduodenoscopy (07/09/23) Social History Alcohol intake: never Patient Tobacco Use Status: Never used Tobacco Advance Directives Date on File: 09/22/23 Review of Systems Const Denies weight gain and Denies weight loss ENT Reports no additional complaints, Denies dysphagia and Denies odynophagia Card Reports no additional complaints Resp Reports no additional complaints GI Denies abdominal pain, Reports belching (Improved), Denies melena, Reports bloating (Improved), Denies change in bowel habits, Denies dysphagia, Denies excessive flatus, Reports dyspepsia (1 episode), Reports heartburn (1 episode), Denies diarrhea, Denies loose stools, Denies nausea, Denies odynophagia and Denies vomiting Reports no additional complaints Musc Reports no additional complaints Neuro Reports no additional complaints Psych Reports no additional complaints Endo Reports no additional complaints Physical Exam Vital Signs: Last Vital Signs Pulse 72 12/22/23 13:08 BP 110/66 12/22/23 13:08 Pulse Ox 100 12/22/23 13:08 Oxygen Delivery Method Room Air 12/22/23 13:08 BMI result Body Mass Index 17.4 Const General: no acute distress Orientation/consciousness: patient oriented x3 Resp Effort & Inspection: normal respiratory effort, able to speak in complete sentences, no tracheal deviation and symmetric chest movement Auscultation: clear to auscultation bilaterally Cardio Rate: regular rate GI Inspection: Yes normal to inspection and No distended Palpation (GI): Soft to palpation, not firm, nontender and No hepatosplenomegaly present Auscultation: normal bowel sounds General: Yes no CVA tenderness Back/Spine/Pelvis Back: no CVA tenderness Skin General skin exam: elasticity normal, turgor normal and dry skin Neuro General: patient oriented x3 Psych Appearance: grossly normal Mental Status: mental status grossly normal Assessment & Plan Assessment & Plan (1) Epigastric pain: Code(s): R10.13 - Epigastric pain Category: Medical (2) Erosive esophagitis: Code(s): K22.10 - Ulcer of esophagus without bleeding Category: Medical (3) GERD (gastroesophageal reflux disease): Code(s): K21.9 - Gastro-esophageal reflux disease without esophagitis Qualifiers: Esophagitis presence: with esophagitis Esophagitis bleeding: without hemorrhage Qualified Code(s): K21.00 - Gastro-esophageal reflux disease with esophagitis, without bleeding (4) Dyspepsia: Code(s): R10.13 - Epigastric pain (5) Belching symptom: Code(s): R14.2 - Eructation (6) Hypokalemia: Code(s): E87.6 - Hypokalemia Plan Patient will continue current diet. May add low FODMAP food every few days. Patient is doing quite well. Continue Nexium twice a day and famotidine at bedtime. Continue avoiding dietary triggers and late night snacking. Staying upright for minimum 3 hours after meals discussed with patient. Coding Level of Care Code Est Pt Level 3 (10297) Diagnoses Epigastric pain R10.13 Erosive esophagitis K22.10 Gastroesophageal reflux disease with esophagitis without hemorrhage K21.00 Esophagitis presence: with esophagitis Esophagitis bleeding: without hemorrhage Dyspepsia R10.13 Belching symptom R14.2 Hypokalemia E87.6 Time Spent (min) 25 Comment 15 minutes spent with patient and additional 10 minutes spent reviewing her records
[2023-12-22 13:08] VITALS: BP 110/66; PULSE 72; O2SAT 100; BMI 17.4
== END 2023-12-22 14:02 | disposition home or self-care (01) ==
PROVIDERS: PCP Internal Medicine; Visit Provider Nurse Practitioner Family
DX: R10.13 Epigastric pain (principal); K22.10 Ulcer of esophagus without bleeding; K21.00 Gastro-esophageal reflux disease with esophagitis, without bleeding; R14.2 Eructation; E87.6 Hypokalemia
CPT/HCPCS: 99213

== ENCOUNTER → 2023-12-22 12:52 | Outpatient (BNVA) | payer MEDICARE, OTHER, SELFPAY | PROVIDERS: PCP Internal Medicine; Visit Provider Nurse Practitioner Family | DX: K21.00 Gastro-esophageal reflux disease with esophagitis, without bleeding (principal); K22.10 Ulcer of esophagus without bleeding; R10.13 Epigastric pain; R14.2 Eructation; E87.6 Hypokalemia | CPT/HCPCS: 99212 ==

== ENCOUNTER 2024-01-07 08:49 | Outpatient (AMB) | payer MEDICARE, OTHER, SELFPAY ==
--- NOTE | 2024-01-07 08:50 | A.OFFVIS_ITS ---
Intake Visit Reasons: 6m/KUB(SET) Intake Note: Patient is Present for Follow Up [facility] Medication: Vitamin B6 Antibiotic Allergies:Cephalexin, Sulfa, Blood Thinners: None Patient denies any flank pain or discomfort. Pharmacy Verfied Extractor Puller Required: No Accompanied by: Self / Same As Patient Allergies cephalexin [From KEFLEX] Allergy (Severe, Verified 01/07/24 08:55) RASH Sulfa (Sulfonamide Antibiotics) [SULFA (SULFONAMIDE ANTIBIOTICS)] Allergy (Severe, Verified 01/07/24 08:55) INTSERNAL AND EXTERNAL RASH/INFECTION Iodinated Contrast Media [IV Dye, Iodine Containing] Allergy (Intermediate, Verified 01/07/24 08:55) HIVES,REDNESS + SWELLING sulfamethoxazole [From BACTRIM] Allergy (Intermediate, Verified 01/07/24 08:55) INTERNAL AND EXTERNAL RASH/ INFECTION stent Allergy (Uncoded 01/07/24 08:55) Vomiting Medication List - Last Reconciled 01/07/24 by Som Mckeon MD cetirizine (Zyrtec) 10 mg PO BEDTIME esomeprazole magnesium 20 mg PO BID famotidine 40 mg PO BEDTIME potassium chloride 20 mEq PO DAILY 3 days pyridoxine (vitamin B6) 50 mg PO DAILY 90 days rosuvastatin 40 mg PO DAILY simethicone (Gas Relief (simethicone)) 125 mg PO BID-TID PRN vonoprazan (Voquezna) 20 mg PO DAILY HPI Comments Details: Maureen is a pleasant female. She is a patient Dr. Durham. She seen for the following urologic conditions - nephrolithiasis - renal cyst Discussed imaging results Normal Continue vitamin B6 1 year follow-up Nephrolithiasis Longstanding small stone on left side Left renal cyst 1 cm Responded well to lemon therapy Takes 1 glass of lemonade per day Imaging - 06/23 renal ultrasound 2 mm on left, renal cyst 1 cm - 06/24 renal ultrasound left renal cyst 1 cm, 2 mm stone bilateral - 06/25 renal ultrasound left 6 mm, right 2 mm - 06/26 renal ultrasound right 9 mm, left 0 - 12/24 KUB no stone seen 1 year follow-up [facility] Medical History Erosive esophagitis Kidney stone GERD (gastroesophageal reflux disease) High cholesterol HTN (hypertension) Surgical History H/O lithotripsy H/O esophagogastroduodenoscopy (07/09/23) Social History Alcohol intake: never Patient Tobacco Use Status: Never used Tobacco Advance Directives Date on File: 09/22/23 Review of Systems Const Denies chills and Denies fever(s) Card Reports no additional complaints and Denies syncope Resp Denies cough GI Denies abdominal pain and Denies heartburn Reports as per HPI and Denies change in libido Neuro Denies syncope Psych Denies change in libido Endo Denies change in libido Physical Exam Const General: cooperative, healthy appearing, comfortable and no acute distress Orientation/consciousness: patient oriented x3 HEENT Face and sinus: Yes normal facial exam Mouth: moist mucous membranes Neck Neck: Yes normal visual inspection, Yes full ROM and Yes trachea midline Chest Chest palpation & inspection: normal inspection of the chest Resp Effort & Inspection: normal respiratory effort, able to speak in complete sentences and no respiratory distress GI Inspection: Yes normal to inspection Back/Spine/Pelvis Cervical Spine: normal cervical lordosis Thoracic/Lumbar Spine: thoracic and lumbar spine normal to inspection Skin General skin exam: no rashes or lesions noted Neuro General: patient oriented x3, gait normal, tone normal and moves all extremities Extrem General: Yes normal to inspection and Yes capillary refill normal Assessment & Plan Assessment & Plan (1) Nephrolithiasis: Code(s): N20.0 - Calculus of kidney Category: Medical Plan Twelve month follow-up renal ultrasound nurse-practitioner Orders: Orders US renal BI 12 Months N20.0 - Calculus of kidney Patient Instructions: Imaging studies, laboratory and physical exam results were discussed and reviewed in detail. No major barriers to patient understanding were identified. An opportunity to ask questions regarding the treatment plan was provided. All questions were answered. The patient expressed understanding and agreement with the above treatment plan. The patient is aware they should contact our office by phone for worsening of their current condition or the appearance of new urologic symptoms. Compliance is encouraged with any medications and followup testing that is ordered. It is a privilege to participate in the urologic care of your patient. If you have any questions or concerns regarding treatment for the above conditions, or other urologic issues, please do not hesitate to contact me. The office telephone contact is [phone]. This note is constructed using voice recognition software. While every effort has been made to ensure accuracy coke crusher operator errors may have been included. Yours sincerely, Dr Som Mckeon MD, [facility] - Urology Providers of Expert, Compassionate Care for the Genitourinary System Coding Level of Care Code Est Pt Level 3 (00658) Diagnoses Nephrolithiasis N20.0
== END 2024-01-07 09:14 | disposition home or self-care (01) ==
PROVIDERS: PCP Internal Medicine; Visit Provider Urology
DX: N20.0 Calculus of kidney (principal)
CPT/HCPCS: 99213

== ENCOUNTER → 2024-01-07 08:49 | Outpatient (BNVA) | payer MEDICARE, OTHER, SELFPAY | PROVIDERS: PCP Internal Medicine; Visit Provider Urology | DX: N20.0 Calculus of kidney (principal) | CPT/HCPCS: 99212 ==

== ENCOUNTER 2024-01-13 11:54 | Outpatient (REF) | payer MEDICARE, OTHER, SELFPAY ==
[2024-01-13 12:24] LABS: Potassium 3.6 mmol/L (3.3-5.1)
== END 2024-01-13 11:55 | disposition home or self-care (01) ==
LOC: HO.LNP 11:54
PROVIDERS: Visit Provider Internal Medicine
DX: E87.6 Hypokalemia (principal)
CPT/HCPCS: 84132

== ENCOUNTER 2024-01-17 08:49 | Outpatient (AMB) | payer MEDICARE, OTHER, SELFPAY ==
--- NOTE | 2024-01-17 08:57 | MHC.OFFVIS ---
Vital Signs 01/17/24 08:58 Height 5 ft 8 in Weight 112 lb 14.027 oz BMI 17.2 BP 160/72 H Blood Pressure Location Lt brachial Position Sitting Pulse 84 Pulse Source Pulse Oximeter Pulse Oximetry (%) 100 Oxygen Delivery Method Room Air Comment Pt reports they are trialing no lisinopril. Intake Visit Reasons: follow up from [facility] Intake Note: Maureen presents in office today for a 1 mos FUV. CC; Pt has ongoing reflux and weight loss concerns. Purse Maker Required: No Allergies cephalexin [From KEFLEX] Allergy (Severe, Verified 01/17/24 08:58) RASH Sulfa (Sulfonamide Antibiotics) [SULFA (SULFONAMIDE ANTIBIOTICS)] Allergy (Severe, Verified 01/17/24 08:58) INTSERNAL AND EXTERNAL RASH/INFECTION Iodinated Contrast Media [IV Dye, Iodine Containing] Allergy (Intermediate, Verified 01/17/24 08:58) HIVES,REDNESS + SWELLING sulfamethoxazole [From BACTRIM] Allergy (Intermediate, Verified 01/17/24 08:58) INTERNAL AND EXTERNAL RASH/ INFECTION stent Allergy (Uncoded 01/07/24 08:55) Vomiting HPI HPI follow up from [facility]: Details: LAST VISIT Epigastric pain Erosive esophagitis GERD (gastroesophageal reflux disease) Dyspepsia Belching symptom Hypokalemia Plan Patient will continue current diet. May add low FODMAP food every few days. Patient is doing quite well. Continue Nexium twice a day and famotidine at bedtime. Continue avoiding dietary triggers and late night snacking. Staying upright for minimum 3 hours after meals discussed with patient. TODAY'S VISIT Patient is here today for follow-up. Patient reports that she has been feeling fairly well. Several episodes of belching and dyspepsia reported at bedtime. Patient denies eating late at night. Patient continues to lose weight. Normal MRI. Has appointment with dietitian to help with choosing better high-calorie meals. Patient denies any nausea or vomiting. Patient denies any dysphagia or odynophagia. Takes Nexium twice a day and famotidine at bedtime. Patient reports that she is moving her bowels every other day. Unsure if her symptoms are related to her not emptying her bowels daily. Patient does admit that when she passes gas and has a bowel movement she feels better [facility] Medical History Erosive esophagitis Kidney stone GERD (gastroesophageal reflux disease) High cholesterol HTN (hypertension) Surgical History H/O lithotripsy H/O esophagogastroduodenoscopy (07/09/23) Social History Alcohol intake: never Patient Tobacco Use Status: Never used Tobacco Advance Directives Date on File: 09/22/23 Review of Systems Const Denies weight gain and Denies weight loss ENT Reports no additional complaints, Denies dysphagia and Denies odynophagia Card Reports no additional complaints Resp Reports no additional complaints GI Denies abdominal pain, Reports belching (Improved), Denies melena, Reports bloating (Improved), Denies change in bowel habits, Denies dysphagia, Denies excessive flatus, Reports dyspepsia, Reports heartburn (occasional), Denies diarrhea, Denies loose stools, Denies nausea, Denies odynophagia and Denies vomiting Reports no additional complaints Musc Reports no additional complaints Neuro Reports no additional complaints Psych Reports no additional complaints Endo Reports no additional complaints Physical Exam Vital Signs: Last Vital Signs Pulse 84 01/17/24 08:58 BP 160/72 H 01/17/24 08:58 Pulse Ox 100 01/17/24 08:58 Oxygen Delivery Method Room Air 01/17/24 08:58 BMI result Body Mass Index 17.2 Const General: no acute distress Orientation/consciousness: patient oriented x3 Resp Effort & Inspection: normal respiratory effort, able to speak in complete sentences, no tracheal deviation and symmetric chest movement Auscultation: clear to auscultation bilaterally Cardio Rate: regular rate GI Inspection: Yes normal to inspection and No distended Palpation (GI): Soft to palpation, not firm, nontender and No hepatosplenomegaly present Auscultation: normal bowel sounds General: Yes no CVA tenderness Back/Spine/Pelvis Back: no CVA tenderness Skin General skin exam: elasticity normal, turgor normal and dry skin Neuro General: patient oriented x3 Psych Appearance: grossly normal Mental Status: mental status grossly normal Assessment & Plan Assessment & Plan (1) Epigastric pain: Code(s): R10.13 - Epigastric pain Category: Medical (2) Erosive esophagitis: Code(s): K22.10 - Ulcer of esophagus without bleeding Category: Medical (3) GERD (gastroesophageal reflux disease): Code(s): K21.9 - Gastro-esophageal reflux disease without esophagitis Qualifiers: Esophagitis bleeding: without hemorrhage Esophagitis presence: with esophagitis Qualified Code(s): K21.00 - Gastro-esophageal reflux disease with esophagitis, without bleeding (4) Dyspepsia: Code(s): R10.13 - Epigastric pain (5) Belching symptom: Code(s): R14.2 - Eructation Plan Continue Nexium twice a day before meals. Continue famotidine at bedtime. Avoid dietary triggers. Avoid late night snacking. Staying upright for minimum 3 hours after meals discussed with her. Patient will try taking Senokot 1 tablet after dinner to see if she is able to empty her bowels better. Continue increasing and adding different food. Patient will continue avoiding gluten and will try to have protein pasta. Follow-up with dietitian scheduled for this . Continue potassium as recommended by PCP. Follow-up in 2-3 weeks, sooner on as needed basis. Patient is agreeable to this plan and verbalizes understanding of instructions. She was given the opportunity to ask questions and all questions answered. Thank you for allowing me to participate in her care Medications: New sennosides (Natural Senna Laxative) 8.6 mg PO BEDTIME 90 tabs 3RF constipation K59.00 - Constipation, unspecified Coding Level of Care Code Est Pt Level 3 (54184) Diagnoses Epigastric pain R10.13 Erosive esophagitis K22.10 Gastroesophageal reflux disease with esophagitis without hemorrhage K21.00 Esophagitis bleeding: without hemorrhage Esophagitis presence: with esophagitis Dyspepsia R10.13 Belching symptom R14.2 Time Spent (min) 25 Comment 15 minutes spent with patient and additional 10 minutes spent reviewing her records
[2024-01-17 08:58] VITALS: BP 160/72; PULSE 84; O2SAT 100; BMI 17.2
== END 2024-01-17 09:27 | disposition home or self-care (01) ==
PROVIDERS: PCP Internal Medicine; Visit Provider Nurse Practitioner Family
DX: R10.13 Epigastric pain (principal); K22.10 Ulcer of esophagus without bleeding; K21.00 Gastro-esophageal reflux disease with esophagitis, without bleeding; R14.2 Eructation
CPT/HCPCS: 99213

== ENCOUNTER → 2024-01-17 08:49 | Outpatient (BNVA) | payer MEDICARE, OTHER, SELFPAY | PROVIDERS: PCP Internal Medicine; Visit Provider Nurse Practitioner Family | DX: R10.13 Epigastric pain (principal); K22.10 Ulcer of esophagus without bleeding; K21.00 Gastro-esophageal reflux disease with esophagitis, without bleeding; R14.2 Eructation | CPT/HCPCS: 99212 ==

== ENCOUNTER 2024-01-20 09:16 | Outpatient (AMB) | payer MEDICARE, OTHER, SELFPAY ==
[2024-01-20 09:36] VITALS: BMI 17.2
--- NOTE | 2024-01-20 09:36 | A.OFFVIS_ITS ---
VS Expanded 01/20/24 09:36 Height 5 ft 8 in Weight 112 lb 14.027 oz BMI 17.2 Intake Visit Reasons: Abnormal weight loss Allergies cephalexin [From KEFLEX] Allergy (Severe, Verified 01/17/24 08:58) RASH Sulfa (Sulfonamide Antibiotics) [SULFA (SULFONAMIDE ANTIBIOTICS)] Allergy (Severe, Verified 01/17/24 08:58) INTSERNAL AND EXTERNAL RASH/INFECTION Iodinated Contrast Media [IV Dye, Iodine Containing] Allergy (Intermediate, Verified 01/17/24 08:58) HIVES,REDNESS + SWELLING sulfamethoxazole [From BACTRIM] Allergy (Intermediate, Verified 01/17/24 08:58) INTERNAL AND EXTERNAL RASH/ INFECTION stent Allergy (Uncoded 01/07/24 08:55) Vomiting Nutrition Presentation Details: Pt presents for abnormal weight loss. The Pt was referred by GI specilist. The Pt reports having reduced on a lot of foods related to GI symptoms, now working on gradually reintroducing some foods. Had been following lowfod map diet concepts Typical meal intake 8 am : 2 Latvian toast and 2 eggs , coffee milk lunch: lactose free cottage cheese and 1/2 banana dinner : zucchini, shepherds pie , water ' Reports choosing lactose free dairy or dairy alternatives Pt reports keeping physically active throughout the day and participating in diff activities BS Monitoring Most Recent Diabetes Results: Potassium 3.6 mmol/L (3.3-5.1) 01/13/24 XNT-[id number]-Fm.Jeor Equation Height: 5 ft 8 in Weight: 113 lb Resting Metabolic Rate: 1017.27 Calculated Activity Level: Moderate Activity Calories Needed to Maintain Weight: 1576.77 Diagnosis Nutrition problem #1: food nutri know defi As related to (etiology) #1: diagnosis As evidenced by (sign/symptom) #1: knowledge deficit of diet [facility] Medical History Erosive esophagitis Kidney stone GERD (gastroesophageal reflux disease) High cholesterol HTN (hypertension) Surgical History H/O lithotripsy H/O esophagogastroduodenoscopy (07/09/23) Social History Alcohol intake: never Patient Tobacco Use Status: Never used Tobacco Advance Directives Date on File: 09/22/23 Assessment & Plan Assessment & Plan (1) Weight loss, unintentional: Code(s): R63.4 - Abnormal weight loss Category: Medical Plan: Plan is to gradually Increasing caloric intake by 250-500 daily to promote weight gain without GI difficulties Patient Instructions: Example : Have protein with your snacks (eggs salad made/ chicken /tuna salad Try cranberry juice diluted with water and have with meals Eat slowly, avoid carbonated beverages to reduce risk of belching Coding Level of Care Code Nutr Indiv Intake (14848) Diagnoses Weight loss, unintentional R63.4 Time Spent (min) 30
[2024-01-24 14:16] VITALS: BMI 17.2
== END 2024-01-20 10:39 | disposition home or self-care (01) ==
PROVIDERS: PCP Internal Medicine; Visit Provider Dietitian, Registered
DX: R63.4 Abnormal weight loss (principal)

== ENCOUNTER → 2024-01-20 09:16 | Outpatient (BNVA) | payer MEDICARE, OTHER, SELFPAY | PROVIDERS: PCP Internal Medicine; Visit Provider Dietitian, Registered | DX: R63.4 Abnormal weight loss (principal) | CPT/HCPCS: 97802 ==

== ENCOUNTER 2024-01-31 10:14 | Outpatient (AMB) | payer MEDICARE, OTHER, SELFPAY ==
[2024-01-31 10:18] VITALS: BP 142/76; PULSE 78; BMI 16.8
--- NOTE | 2024-01-31 10:18 | MHC.OFFVIS ---
Vital Signs 01/31/24 10:18 Height 5 ft 8 in Weight 110 lb 10.753 oz BMI 16.8 BP 142/76 H Blood Pressure Location Lt brachial Position Sitting Pulse 78 Pulse Source Pulse Oximeter Intake Visit Reasons: 2 week follow up Intake Note: Maureen presents in office today for a scheduled 2 week FUV. CC; Pt reports having the same difficulties with chronic sx. Pt states that they did not have a good day yesterday with regard to their sx. Pt does report however that they were able to fall asleep and not have any further issues through now. Adjustment Examiner Required: No Allergies cephalexin [From KEFLEX] Allergy (Severe, Verified 01/31/24 10:18) RASH Sulfa (Sulfonamide Antibiotics) [SULFA (SULFONAMIDE ANTIBIOTICS)] Allergy (Severe, Verified 01/31/24 10:18) INTSERNAL AND EXTERNAL RASH/INFECTION Iodinated Contrast Media [IV Dye, Iodine Containing] Allergy (Intermediate, Verified 01/31/24 10:18) HIVES,REDNESS + SWELLING sulfamethoxazole [From BACTRIM] Allergy (Intermediate, Verified 01/31/24 10:18) INTERNAL AND EXTERNAL RASH/ INFECTION stent Allergy (Uncoded 01/07/24 08:55) Vomiting HPI HPI 2 week follow up: Details: LAST VISIT: Epigastric pain Erosive esophagitis GERD (gastroesophageal reflux disease) Dyspepsia Belching symptom Plan Continue Nexium twice a day before meals. Continue famotidine at bedtime. Avoid dietary triggers. Avoid late night snacking. Staying upright for minimum 3 hours after meals discussed with her. Patient will try taking Senokot 1 tablet after dinner to see if she is able to empty her bowels better. Continue increasing and adding different food. Patient will continue avoiding gluten and will try to have protein pasta. Follow-up with dietitian scheduled for this . Continue potassium as recommended by PCP. Follow-up in 2-3 weeks, sooner on as needed basis. Patient is agreeable to this plan and verbalizes understanding of instructions. She was given the opportunity to ask questions and all questions answered. ? Thank you for allowing me to participate in her care Medications New sennosides (Natural Senna Laxative) 8.6 mg PO BEDTIME 90 tabs 3RF constipation K59.00 TODAY'S VISIT Patient is here today for follow-up. Patient reports that she has been feeling well. Followed up with electric installer and will start following her recommendation as well. Patient reports that yesterday she had episode of belching. Patient had waffles and reports to eggs in the morning. In the afternoon patient had egg salad with small amount of mayonnaise and lactose free sour cream. Patient states that she started belching in the evening, symptoms going on for about 2-3 hours. This morning patient took her Nexium and has not had symptoms yet. Patient denies any dyspepsia, dysphagia or odynophagia. Overall patient has been introducing more food and has been eating well. She continues to take potassium supplements every other day. Patient reports that she is moving her bowels well now that she started taking senna. She moves her bowels every other day. [facility] Medical History Erosive esophagitis Kidney stone GERD (gastroesophageal reflux disease) High cholesterol HTN (hypertension) Surgical History H/O lithotripsy H/O esophagogastroduodenoscopy (07/09/23) Social History Alcohol intake: never Patient Tobacco Use Status: Never used Tobacco Advance Directives Date on File: 09/22/23 Review of Systems Const Denies weight gain and Denies weight loss ENT Reports no additional complaints, Denies dysphagia and Denies odynophagia Card Reports no additional complaints Resp Reports no additional complaints GI Denies abdominal pain, Reports belching (Improved), Denies melena, Reports bloating (Improved), Denies change in bowel habits, Denies dysphagia, Denies excessive flatus, Reports dyspepsia, Reports heartburn (occasional), Denies diarrhea, Denies loose stools, Denies nausea, Denies odynophagia and Denies vomiting Reports no additional complaints Musc Reports no additional complaints Neuro Reports no additional complaints Psych Reports no additional complaints Endo Reports no additional complaints Physical Exam Vital Signs: Last Vital Signs Pulse 78 01/31/24 10:18 BP 142/76 H 01/31/24 10:18 BMI result Body Mass Index 16.8 Const General: no acute distress Orientation/consciousness: patient oriented x3 Resp Effort & Inspection: normal respiratory effort, able to speak in complete sentences, no tracheal deviation and symmetric chest movement Auscultation: clear to auscultation bilaterally Cardio Rate: regular rate GI Inspection: Yes normal to inspection and No distended Palpation (GI): Soft to palpation, not firm, nontender and No hepatosplenomegaly present Auscultation: normal bowel sounds General: Yes no CVA tenderness Back/Spine/Pelvis Back: no CVA tenderness Skin General skin exam: elasticity normal, turgor normal and dry skin Neuro General: patient oriented x3 Psych Appearance: grossly normal Mental Status: mental status grossly normal Assessment & Plan Assessment & Plan (1) Epigastric pain: Code(s): R10.13 - Epigastric pain Category: Medical (2) Erosive esophagitis: Code(s): K22.10 - Ulcer of esophagus without bleeding Category: Medical (3) GERD (gastroesophageal reflux disease): Code(s): K21.9 - Gastro-esophageal reflux disease without esophagitis Qualifiers: Esophagitis presence: esophagitis presence not specified Qualified Code(s): K21.9 - Gastro-esophageal reflux disease without esophagitis (4) Dyspepsia: Code(s): R10.13 - Epigastric pain (5) Belching symptom: Code(s): R14.2 - Eructation Plan Continue Nexium twice a day. Continue famotidine. Continue entry losing new food and protein every 3-4 days. Continue avoiding dietary triggers and late night snacking. Staying upright for minimum 3 hours after meals discussed with patient. Increase fluid intake and activity to promote better bowel motility. Follow-up in 2-3 weeks, sooner on as needed basis. Patient will follow-up with her dietitian as well. She is agreeable to this plan and verbalizes understanding of instructions. She was given the opportunity to ask questions and all questions answered. Thank you for allowing me to participate in her care Coding Level of Care Code Est Pt Level 3 (80807) Diagnoses Epigastric pain R10.13 Erosive esophagitis K22.10 Gastroesophageal reflux disease, unspecified whether esophagitis present K21.9 Esophagitis presence: esophagitis presence not specified Dyspepsia R10.13 Belching symptom R14.2 Time Spent (min) 25 Comment 15 minutes spent with patient and additional 10 minutes spent reviewing her records
== END 2024-01-31 11:18 | disposition home or self-care (01) ==
PROVIDERS: PCP Internal Medicine; Visit Provider Nurse Practitioner Family
DX: R10.13 Epigastric pain (principal); K22.10 Ulcer of esophagus without bleeding; K21.9 Gastro-esophageal reflux disease without esophagitis; R14.2 Eructation
CPT/HCPCS: 99213

== ENCOUNTER → 2024-01-31 10:14 | Outpatient (BNVA) | payer MEDICARE, OTHER, SELFPAY | PROVIDERS: PCP Internal Medicine; Visit Provider Nurse Practitioner Family | DX: K22.10 Ulcer of esophagus without bleeding (principal); K21.9 Gastro-esophageal reflux disease without esophagitis; R10.13 Epigastric pain; R14.2 Eructation | CPT/HCPCS: 99212 ==

== ENCOUNTER 2024-02-03 10:59 | Outpatient (REF) | payer MEDICARE, OTHER, SELFPAY ==
[2024-02-03 12:27] LABS: Potassium 4.2 mmol/L (3.3-5.1)
== END 2024-02-03 11:00 | disposition home or self-care (01) ==
LOC: HO.LNP 10:59
PROVIDERS: Visit Provider Internal Medicine
DX: Z86.39 Personal history of other endocrine, nutritional and metabolic disease (principal)
CPT/HCPCS: 84132

== ENCOUNTER 2024-02-15 10:45 | Outpatient (AMB) | payer MEDICARE, OTHER, SELFPAY ==
[2024-02-15 10:48] VITALS: BP 118/66; PULSE 82; O2SAT 100; BMI 16.8
--- NOTE | 2024-02-15 10:48 | A.OFFVIS_ITS ---
Vital Signs 02/15/24 10:48 Height 5 ft 8 in Weight 110 lb 10.753 oz BMI 16.8 BP 118/66 Blood Pressure Location Lt brachial Position Sitting Pulse 82 Pulse Source Pulse Oximeter Pulse Oximetry (%) 100 Oxygen Delivery Method Room Air Intake Visit Reasons: 2 wks f/u Intake Note: Maureen presents in office today for a scheduled 2 week FUV. CC; Pt reports that they have remained stable since their last visit. Pt does report having more gas than usual. Pt has been taking their rx as intended but feels that they could be having better management of that particular sx. Pt w ould also like to discuss their nexium. Pt denies any other changes or concerns. Liver Trimmer Required: No Allergies cephalexin [From KEFLEX] Allergy (Severe, Verified 02/15/24 10:49) RASH Sulfa (Sulfonamide Antibiotics) [SULFA (SULFONAMIDE ANTIBIOTICS)] Allergy (Severe, Verified 02/15/24 10:49) INTSERNAL AND EXTERNAL RASH/INFECTION Iodinated Contrast Media [IV Dye, Iodine Containing] Allergy (Intermediate, Verified 02/15/24 10:49) HIVES,REDNESS + SWELLING sulfamethoxazole [From BACTRIM] Allergy (Intermediate, Verified 02/15/24 10:49) INTERNAL AND EXTERNAL RASH/ INFECTION stent Allergy (Uncoded 01/07/24 08:55) Vomiting HPI HPI 2 wks f/u: Details: LAST VISIT: Epigastric pain Erosive esophagitis GERD (gastroesophageal reflux disease) Dyspepsia Belching symptom Plan Continue Nexium twice a day. Continue famotidine. Continue to introduce new food and protein every 3-4 days. Continue avoiding dietary triggers and late night snacking. Staying upright for minimum 3 hours after meals discussed with patient. Increase fluid intake and activity to promote better bowel motility. Follow-up in 2-3 weeks, sooner on as needed basis. Patient will follow-up with her dietitian as well. She is agreeable to this plan and verbalizes understanding of instructions. She was given the opportunity to ask questions and all questions answered. TODAY'S VISIT: Patient is here today for follow-up. Patient reports that she has been to well. Couple episodes of belching without actual reflux. Patient reports that last night she belched for few hours, however she managed to go to bed without having any issues. She has not lost any weight has an appointment with chief librarian extension department on of this month. She is trying to introduce more food. Patient denies any nausea or vomiting. Denies any melena, hematochezia. Denies any dyspepsia, dysphagia or odynophagia. Continues to take potassium every other day. Her last level was checked on February 02 and it was 4.2. Patient denies any new GI concerning symptoms [facility] Medical History Erosive esophagitis Kidney stone GERD (gastroesophageal reflux disease) High cholesterol HTN (hypertension) Surgical History H/O lithotripsy H/O esophagogastroduodenoscopy (07/09/23) Social History Alcohol intake: never Patient Tobacco Use Status: Never used Tobacco Advance Directives Date on File: 09/22/23 Review of Systems Const Denies weight gain and Denies weight loss ENT Reports no additional complaints, Denies dysphagia and Denies odynophagia Card Reports no additional complaints Resp Reports no additional complaints GI Denies abdominal pain, Reports belching (Improved), Denies melena, Reports bloating (Improved), Denies change in bowel habits, Denies dysphagia, Denies excessive flatus, Denies dyspepsia, Denies heartburn, Denies diarrhea, Denies loose stools, Denies nausea, Denies odynophagia and Denies vomiting Reports no additional complaints Musc Reports no additional complaints Neuro Reports no additional complaints Psych Reports no additional complaints Endo Reports no additional complaints Physical Exam Vital Signs: Last Vital Signs Pulse 82 02/15/24 10:48 BP 118/66 02/15/24 10:48 Pulse Ox 100 02/15/24 10:48 Oxygen Delivery Method Room Air 02/15/24 10:48 BMI result Body Mass Index 16.8 Const General: no acute distress Orientation/consciousness: patient oriented x3 Resp Effort & Inspection: normal respiratory effort, able to speak in complete sentences, no tracheal deviation and symmetric chest movement Auscultation: clear to auscultation bilaterally Cardio Rate: regular rate GI Inspection: Yes normal to inspection and No distended Palpation (GI): Soft to palpation, not firm, nontender and No hepatosplenomegaly present Auscultation: normal bowel sounds General: Yes no CVA tenderness Back/Spine/Pelvis Back: no CVA tenderness Skin General skin exam: elasticity normal, turgor normal and dry skin Neuro General: patient oriented x3 Psych Appearance: grossly normal Mental Status: mental status grossly normal Assessment & Plan Assessment & Plan (1) Epigastric pain: Code(s): R10.13 - Epigastric pain Category: Medical (2) Erosive esophagitis: Code(s): K22.10 - Ulcer of esophagus without bleeding Category: Medical (3) GERD (gastroesophageal reflux disease): Code(s): K21.9 - Gastro-esophageal reflux disease without esophagitis Qualifiers: Esophagitis presence: with esophagitis Esophagitis bleeding: without hemorrhage Qualified Code(s): K21.00 - Gastro-esophageal reflux disease with esophagitis, without bleeding (4) Dyspepsia: Code(s): R10.13 - Epigastric pain (5) Belching symptom: Code(s): R14.2 - Eructation Plan Continue current management with Nexium twice a day and famotidine at bedtime. Continue potassium supplement as ordered by PCP and follow-up with labs as recommended. Continue diet that was recommended by chief librarian extension department as well as our office. May introduce and add lactose free whole milk like fairlife. Increase calorie intake. Patient was encouraged to eat every 2-3 hours. Patient will follow-up in the office in 3 weeks, sooner on as needed basis. She is agreeable to this plan and verbalizes understanding of instructions. She was given the opportunity to ask questions and all questions answered. Thank you for allowing me to participate in her care Coding Level of Care Code Est Pt Level 3 (04293) Diagnoses Epigastric pain R10.13 Erosive esophagitis K22.10 Gastroesophageal reflux disease with esophagitis without hemorrhage K21.00 Esophagitis presence: with esophagitis Esophagitis bleeding: without hemorrhage Dyspepsia R10.13 Belching symptom R14.2 Time Spent (min) 25 Comment 15 minutes spent with patient and additional 10 minutes spent reviewing her records
== END 2024-02-15 11:31 | disposition home or self-care (01) ==
PROVIDERS: PCP Internal Medicine; Visit Provider Nurse Practitioner Family
DX: R10.13 Epigastric pain (principal); K22.10 Ulcer of esophagus without bleeding; K21.00 Gastro-esophageal reflux disease with esophagitis, without bleeding; R14.2 Eructation
CPT/HCPCS: 99213

== ENCOUNTER → 2024-02-15 10:45 | Outpatient (BNVA) | payer MEDICARE, OTHER, SELFPAY | PROVIDERS: PCP Internal Medicine; Visit Provider Nurse Practitioner Family | DX: R10.13 Epigastric pain (principal); K22.10 Ulcer of esophagus without bleeding; K21.00 Gastro-esophageal reflux disease with esophagitis, without bleeding; R14.2 Eructation | CPT/HCPCS: 99212 ==

== ENCOUNTER 2024-03-02 09:19 | Outpatient (AMB) | payer MEDICARE, OTHER, SELFPAY ==
--- NOTE | 2024-03-02 09:28 | A.OFFVIS_ITS ---
VS Expanded 03/02/24 09:50 Height 5 ft 8 in Weight 112 lb 3.445 oz BMI 17.1 Intake Visit Reasons: underweight/LVM Allergies cephalexin [From KEFLEX] Allergy (Severe, Verified 02/15/24 10:49) RASH Sulfa (Sulfonamide Antibiotics) [SULFA (SULFONAMIDE ANTIBIOTICS)] Allergy (Severe, Verified 02/15/24 10:49) INTSERNAL AND EXTERNAL RASH/INFECTION Iodinated Contrast Media [IV Dye, Iodine Containing] Allergy (Intermediate, Verified 02/15/24 10:49) HIVES,REDNESS + SWELLING sulfamethoxazole [From BACTRIM] Allergy (Intermediate, Verified 02/15/24 10:49) INTERNAL AND EXTERNAL RASH/ INFECTION stent Allergy (Uncoded 01/07/24 08:55) Vomiting Nutrition Presentation Details: Pt presents for MNT f/u for unintentional weight loss Pt reports trying new foods and feeling a bit better, Reports limiting food intake due to concerns of dysphasia Has 3 -4 meals /day B: fairlife milk with lactose free ice cream , waffle and 1 scrambled egg L: Kosovan muffin with butter and ham , water D: fish , potato and squash snack brownie physical activity: ADL reports participating in various functions and trying small portions of meals provided at the functions BS Monitoring Most Recent Diabetes Results: Potassium 4.2 mmol/L (3.3-5.1) 02/03/24 [facility] Medical History Erosive esophagitis Kidney stone GERD (gastroesophageal reflux disease) High cholesterol HTN (hypertension) Surgical History H/O lithotripsy H/O esophagogastroduodenoscopy (07/09/23) Social History Alcohol intake: never Patient Tobacco Use Status: Never used Tobacco Advance Directives Date on File: 09/22/23 Assessment & Plan Assessment & Plan (1) Weight loss, unintentional: Code(s): R63.4 - Abnormal weight loss Category: Medical Plan: Have shake twice a day (fairlife milk , lactose free ice cream/yogurt, banana) Add 1 nano of oil to the meals twice a day Coding Level of Care Code Nutr Indiv Subseq (35475) Diagnoses Weight loss, unintentional R63.4 Time Spent (min) 30
[2024-03-02 09:50] VITALS: BMI 17.1
== END 2024-03-02 10:10 | disposition home or self-care (01) ==
LOC: HO.ENCR 09:20
PROVIDERS: PCP Internal Medicine; Visit Provider Dietitian, Registered
DX: R63.4 Abnormal weight loss (principal)

== ENCOUNTER → 2024-03-02 09:19 | Outpatient (BNVA) | payer MEDICARE, OTHER, SELFPAY | PROVIDERS: PCP Internal Medicine; Visit Provider Dietitian, Registered | DX: R63.4 Abnormal weight loss (principal); Z68.1 Body mass index [BMI] 19.9 or less, adult; Z71.3 Dietary counseling and surveillance | CPT/HCPCS: 97803 ==

== ENCOUNTER 2024-03-07 11:48 | Outpatient (REF) | payer MEDICARE, OTHER, SELFPAY ==
[2024-03-07 11:51] LABS: MANUAL DIFF FLAG NO
[2024-03-07 12:08] LABS: Basophils Percent Auto 1.2 % (0-2); Eosinophils Absolute Auto 0.1 X10*3/uL (0.0-0.4); Eosinophils Percent Auto 4.7 % (0-4); Hematocrit 44.7 % (37.0-47.0); Hemoglobin 14.5 g/dl (12.0-16.0); Lymphocytes Absolute Auto 0.8 X10*3/uL (1.2-4.9); Lymphocytes Percent Auto 31.9 % (20-40); Mean Corpuscular HGB Conc 32.4 g/dl (31.0-35.0); Mean Corpuscular Hemoglobin 30.3 pg (27.0-33.0); Mean Corpuscular Volume 93.3 fL (80.0-98.0); Mean Platelet Volume 10.8 fL (9.4-12.3); Monocytes Absolute Auto 0.3 X10*3/uL (0.1-1.2); Monocytes Percent Auto 12.6 % (2-11); Neutrophils Absolute Auto 1.3 x10*3/uL (2.0-8.3); Neutrophils Percent Auto 49.6 % (45-73); Platelet Count 157 X10*3/uL (160-400); Red Blood Count 4.79 X10*6/uL (4.20-5.50); Red Cell Distribution Width 13.6 % (11.0-16.0)
[2024-03-07 12:09] LABS: White Blood Count 2.5 X10*3/uL (4.8-10.8)
[2024-03-07 12:24] LABS: Appearance Urine Clear; Color Urine Yellow; Glucose Urine UA Negative (Negative); Leukocyte Esterase Urine Trace (Negative); Nitrite Urine Negative (Negative); PH 6.5 (5.0-9.0); UMIC TRIGGER UACC YES; Urine Blood Negative (Negative); Urine Ketones Negative (Negative); Urine Protein 30 (1+) mg/dL (Neg-Trace)
[2024-03-07 12:51] LABS: Alanine Aminotransferase 40 U/L (0-31); Alkaline Phosphatase 80 U/L (39-117); Anion Gap 14 (12-20); Aspartate Amino Transferase 43 U/L (5-31); Bilirubin Total 0.6 mg/dL (0.0-1.0); Blood Urea Nitrogen 23 mg/dL (9-16); Calcium 10.1 mg/dL (8.4-10.2); Carbon Dioxide 27 mmol/L (22-29); Chloride 104 mmol/L (96-108); Cholesterol 215 mg/dL (<200); Estimated Glomerular Filt Rate > 60; Glucose Fasting 83 mg/dL (60-99); HDL Cholesterol 80 mg/dL (>40); LDL Cholesterol Calculated 123 mg/dL (<100); Potassium 3.9 mmol/L (3.3-5.1); Sodium 141 mmol/L (135-145); Total Protein 6.4 g/dL (6.5-8.0); Triglycerides 63 mg/dL (<150)
[2024-03-07 13:07] LABS: Bacteria Urine None Seen (None Seen); Hyaline Casts Urine 0-2 /LPF (0-2); RBC Urine 0-2 /HPF (0-2); Squamous Epithelial Cell Urine 0-2 /HPF (0-2); WBC Urine 0-5 /HPF (0-5)
== END 2024-03-07 11:49 | disposition home or self-care (01) ==
LOC: HO.LNP 11:48
PROVIDERS: Visit Provider Internal Medicine
DX: Z00.00 Encounter for general adult medical examination without abnormal findings (principal); D70.9 Neutropenia, unspecified; E78.00 Pure hypercholesterolemia, unspecified; I10 Essential (primary) hypertension
CPT/HCPCS: 80053; 80061; 81001; 81003; 85025

== ENCOUNTER 2024-03-08 12:03 | Outpatient (AMB) | payer MEDICARE, OTHER, SELFPAY ==
[2024-03-08 12:04] VITALS: BP 144/80; PULSE 76; O2SAT 99; BMI 16.7
--- NOTE | 2024-03-08 12:04 | A.OFFVIS_ITS ---
Vital Signs 03/08/24 12:04 Height 5 ft 8 in Weight 109 lb 12.643 oz BMI 16.7 BP 144/80 H Blood Pressure Location Rt brachial Position Sitting Pulse 76 Pulse Source Pulse Oximeter Pulse Oximetry (%) 99 Oxygen Delivery Method Room Air Intake Visit Reasons: 3 week follow up Intake Note: Relevant Flags or Indicators ? Requires International Trade Specialist? N Maureen presents in office today for a scheduled 3 week FUV. CC; No recent labs, diagnostics, or med orders placed. ?Pt did have their lab work via PCP yesterday. K+ included. Relevant GI Sx as reported per pt? Reflux ? Bloating ? Hx of any recent surgeries? None Allergies cephalexin [From KEFLEX] Allergy (Severe, Verified 03/29/24 14:11) RASH Sulfa (Sulfonamide Antibiotics) [SULFA (SULFONAMIDE ANTIBIOTICS)] Allergy (Severe, Verified 03/29/24 14:11) INTSERNAL AND EXTERNAL RASH/INFECTION Iodinated Contrast Media [IV Dye, Iodine Containing] Allergy (Intermediate, Verified 03/29/24 14:11) HIVES,REDNESS + SWELLING sulfamethoxazole [From BACTRIM] Allergy (Intermediate, Verified 03/29/24 14:11) INTERNAL AND EXTERNAL RASH/ INFECTION stent Allergy (Uncoded 01/07/24 08:55) Vomiting HPI HPI 3 week follow up: Details: LAST VIAIT: Epigastric pain Erosive esophagitis GERD (gastroesophageal reflux disease) Dyspepsia Belching symptom Plan Continue current management with Nexium twice a day and famotidine at bedtime. Continue potassium supplement as ordered by PCP and follow-up with labs as recommended. Continue diet that was recommended by legal associate as well as our office. May introduce and add lactose free whole milk like fairlife. Increase calorie intake. Patient was encouraged to eat every 2-3 hours. Patient will follow-up in the office in 3 weeks, sooner on as needed basis. She is agreeable to this plan and verbalizes understanding of instructions. She was given the opportunity to ask questions and all questions answered. TODAY'S VISIT: Patient is here today for follow-up. Patient reports that she continues to take the Nexium twice a day and for the most part her symptoms are suppressed. Her biggest thing is belching. Patient states that when she starts she is unable to stop for like couple hours and that causes some discomfort. Patient denies any nausea or vomiting. She continues to take potassium every other day. She will be having follow-up appointment with her legal associate in the beginning of April. Patient is adding 1-2 extra items to her diet. Her weight is the same, concern of not gaining any weight. Patient does admit that her mentioned that she does eat like a bird. Patient was encouraged to eat more often. Not do stick to routine 3 times a day meals. [facility] Medical History Erosive esophagitis Kidney stone GERD (gastroesophageal reflux disease) High cholesterol HTN (hypertension) Surgical History H/O lithotripsy H/O esophagogastroduodenoscopy (07/09/23) Social History Alcohol intake: never Patient Tobacco Use Status: Never used Tobacco Advance Directives Date on File: 09/22/23 Review of Systems Const Denies weight gain and Denies weight loss ENT Reports no additional complaints, Denies dysphagia and Denies odynophagia Card Reports no additional complaints Resp Reports no additional complaints GI Denies abdominal pain, Reports belching (Improved), Denies melena, Reports bloating (Improved), Denies change in bowel habits, Denies dysphagia, Denies excessive flatus, Denies dyspepsia, Denies heartburn, Denies diarrhea, Denies loose stools, Denies nausea, Denies odynophagia and Denies vomiting Reports no additional complaints Musc Reports no additional complaints Neuro Reports no additional complaints Psych Reports no additional complaints Endo Reports no additional complaints Physical Exam Vital Signs: Last Vital Signs Pulse 76 03/08/24 12:04 BP 144/80 H 03/08/24 12:04 Pulse Ox 99 03/08/24 12:04 Oxygen Delivery Method Room Air 03/08/24 12:04 BMI result Body Mass Index 16.7 Const General: no acute distress Orientation/consciousness: patient oriented x3 Resp Effort & Inspection: normal respiratory effort, able to speak in complete sentences, no tracheal deviation and symmetric chest movement Auscultation: clear to auscultation bilaterally Cardio Rate: regular rate GI Inspection: Yes normal to inspection and No distended Palpation (GI): Soft to palpation, not firm, nontender and No hepatosplenomegaly present Auscultation: normal bowel sounds General: Yes no CVA tenderness Back/Spine/Pelvis Back: no CVA tenderness Skin General skin exam: elasticity normal, turgor normal and dry skin Neuro General: patient oriented x3 Psych Appearance: grossly normal Mental Status: mental status grossly normal Assessment & Plan Assessment & Plan (1) Epigastric pain: Code(s): R10.13 - Epigastric pain Category: Medical (2) Weight loss, unintentional: Code(s): R63.4 - Abnormal weight loss Category: Medical (3) GERD (gastroesophageal reflux disease): Code(s): K21.9 - Gastro-esophageal reflux disease without esophagitis Qualifiers: Esophagitis presence: with esophagitis Esophagitis bleeding: without hemorrhage Qualified Code(s): K21.00 - Gastro-esophageal reflux disease with esophagitis, without bleeding Plan Patient will continue Nexium twice a day. Avoid dietary triggers and late night snacking. May take famotidine at bedtime if needs it. Patient will add couple new things. Patient was encouraged to count calories, may do [id number] calories a day, high-protein shakes. May add protein powder to her shakes. Follow-up in 3 weeks, sooner on as needed basis. She is agreeable to plan of care and verbalizes understanding of instructions. She was given the opportunity to ask questions and all questions answered. Thank you for allowing me to participate in her care Coding Level of Care Code Est Pt Level 3 (00048) Diagnoses Epigastric pain R10.13 Weight loss, unintentional R63.4 Gastroesophageal reflux disease with esophagitis without hemorrhage K21.00 Esophagitis presence: with esophagitis Esophagitis bleeding: without hemorrhage Time Spent (min) 30 Comment 20 minutes spent with patient and additional 10 minutes spent reviewing her records
== END 2024-03-08 12:42 | disposition home or self-care (01) ==
LOC: HO.HGI 12:04
PROVIDERS: PCP Internal Medicine; Visit Provider Nurse Practitioner Family
DX: R10.13 Epigastric pain (principal); R63.4 Abnormal weight loss; K21.00 Gastro-esophageal reflux disease with esophagitis, without bleeding
CPT/HCPCS: 99213

== ENCOUNTER → 2024-03-08 12:03 | Outpatient (BNVA) | payer MEDICARE, OTHER, SELFPAY | PROVIDERS: PCP Internal Medicine; Visit Provider Nurse Practitioner Family | DX: K21.00 Gastro-esophageal reflux disease with esophagitis, without bleeding (principal); R10.13 Epigastric pain; R63.4 Abnormal weight loss; Z79.899 Other long term (current) drug therapy | CPT/HCPCS: 99212 ==

== ENCOUNTER 2024-03-29 14:06 | Outpatient (AMB) | payer MEDICARE, OTHER, SELFPAY ==
--- NOTE | 2024-03-29 14:10 | A.OFFVIS_ITS ---
Vital Signs 03/29/24 14:11 Height 5 ft 8 in Weight 113 lb 12.136 oz BMI 17.3 Blood Pressure Location Rt brachial Position Sitting Pulse 76 Pulse Source Pulse Oximeter Pulse Oximetry (%) 96 Oxygen Delivery Method Room Air Intake Visit Reasons: 2 week follow up Intake Note: Relevant Flags or Indicators ? Requires Foreign Broadcast Specialist? N Maureen presents in office today for a scheduled 2 week FUV. Sx management per pt; Pt reports that she had a few bad days since last visit. Pt reports that she tried eating breakfast sausage which she felt fine throughout the day. However, 15 minutes after dinner she developed very severe sx. ? Hx of any recent surgeries? None Foreign Broadcast Specialist Required: No Allergies cephalexin [From KEFLEX] Allergy (Severe, Verified 03/29/24 14:11) RASH Sulfa (Sulfonamide Antibiotics) [SULFA (SULFONAMIDE ANTIBIOTICS)] Allergy (Severe, Verified 03/29/24 14:11) INTSERNAL AND EXTERNAL RASH/INFECTION Iodinated Contrast Media [IV Dye, Iodine Containing] Allergy (Intermediate, Verified 03/29/24 14:11) HIVES,REDNESS + SWELLING sulfamethoxazole [From BACTRIM] Allergy (Intermediate, Verified 03/29/24 14:11) INTERNAL AND EXTERNAL RASH/ INFECTION stent Allergy (Uncoded 01/07/24 08:55) Vomiting HPI HPI 2 week follow up: Details: LAST VIST: Epigastric pain Erosive esophagitis Epigastric pain Weight loss, unintentional GERD (gastroesophageal reflux disease) Plan Patient will continue Nexium twice a day. Avoid dietary triggers and late night snacking. May take famotidine at bedtime if needs it. Patient will add couple new things. Patient was encouraged to count calories, may do 1255-1259 calories a day, high-protein shakes. May add protein powder to her shakes. Follow-up in 3 weeks, sooner on as needed basis. She is agreeable to plan of care and verbalizes understanding of instructions. She was given the opportunity to ask questions and all questions answered. ? TODAY'S VISIT Patient is here today for follow-up. Next nutrition visit is going to be in the beginning of October. Patient reports that she is little nervous about what she will eat for things given. Patient reports that for the most part she was doing well since last visit, however she had 1 scary episode when she ate sausage in the morning. Patient states that she was at restaurant when they serve sausage with eggs. She normally has sausage at home, however after dinner the same day patient had severe belching that lasted a long time. Patient wanted to go to ER, however her symptoms went away and she was able to sleep through the night. Patient is introducing new food specially protein. She has gained a couple lb since last visit. Patient denies dysphagia or odynophagia. Reports dyspepsia with belching couple episodes since last visit. Patient denies any melena, hematochezia, unintentional weight loss or ribbon like stools. Patient reports that she is moving her bowels without any issues. [facility] Medical History Erosive esophagitis Kidney stone GERD (gastroesophageal reflux disease) High cholesterol HTN (hypertension) Surgical History H/O lithotripsy H/O esophagogastroduodenoscopy (07/09/23) Social History Alcohol intake: never Patient Tobacco Use Status: Never used Tobacco Advance Directives Date on File: 09/22/23 Review of Systems Const Denies weight gain and Denies weight loss ENT Reports no additional complaints, Denies dysphagia and Denies odynophagia Card Reports no additional complaints Resp Reports no additional complaints GI Denies abdominal pain, Reports belching, Denies melena, Reports bloating, Denies change in bowel habits, Denies dysphagia, Denies excessive flatus, Denies dyspepsia, Reports heartburn (Improved ), Denies diarrhea, Denies loose stools, Denies nausea, Denies odynophagia and Denies vomiting Reports no additional complaints Musc Reports no additional complaints Neuro Reports no additional complaints Psych Reports no additional complaints Endo Reports no additional complaints Physical Exam Vital Signs: Last Vital Signs Pulse 76 03/29/24 14:11 Pulse Ox 96 03/29/24 14:11 Oxygen Delivery Method Room Air 03/29/24 14:11 BMI result Body Mass Index 17.3 Const General: no acute distress Orientation/consciousness: patient oriented x3 Resp Effort & Inspection: normal respiratory effort, able to speak in complete sentences, no tracheal deviation and symmetric chest movement Auscultation: clear to auscultation bilaterally Cardio Rate: regular rate GI Inspection: Yes normal to inspection and No distended Palpation (GI): Soft to palpation, not firm, nontender and No hepatosplenomegaly present Auscultation: normal bowel sounds General: Yes no CVA tenderness Back/Spine/Pelvis Back: no CVA tenderness Skin General skin exam: elasticity normal, turgor normal and dry skin Neuro General: patient oriented x3 Psych Appearance: grossly normal Mental Status: mental status grossly normal Assessment & Plan Assessment & Plan (1) Epigastric pain: Code(s): R10.13 - Epigastric pain Category: Medical (2) Weight loss, unintentional: Code(s): R63.4 - Abnormal weight loss Category: Medical (3) GERD (gastroesophageal reflux disease): Code(s): K21.9 - Gastro-esophageal reflux disease without esophagitis Qualifiers: Esophagitis presence: with esophagitis Esophagitis bleeding: without hemorrhage Qualified Code(s): K21.00 - Gastro-esophageal reflux disease with esophagitis, without bleeding Plan Patient reports postnasal drip, occasional trouble swallowing. She had thyroid ultrasound done in the beginning of this year. We will send her for soft tissue neck x-ray. Continue current management with Nexium twice a day. Patient may or may not need to use famotidine. She can use it on as needed basis. Continue simethicone as needed and senna if no bowel movement in 1-2 days. Continue current diet add extra protein. Patient can use protein powder with fairlife milk. The ultrafiltration process of the fairlife milk reduces lactose and enhances protein content. There is 50% more protein, 50% less sugar and 30% more calcium than regular milk in 1 serving. Patient will follow-up in 3-4 weeks. Patient is agreeable to current plan of care and verbalizes understanding of instructions. She was given the opportunity to ask questions and all questions answered. Thank you for allowing me to participate in her care Orders: Orders XR soft tissue neck 03/29/24 K22.2 - Esophageal obstruction Medications: Refilled famotidine 40 mg PO BEDTIME 90 tabs 3RF simethicone (Gas Relief (simethicone)) 125 mg PO BID-TID PRN 90 tabs 3RF abdominal distention Coding Level of Care Code Est Pt Level 4 (12287) Complex EM visit Add On G2211 Diagnoses Epigastric pain R10.13 Weight loss, unintentional R63.4 Gastroesophageal reflux disease with esophagitis without hemorrhage K21.00 Esophagitis presence: with esophagitis Esophagitis bleeding: without hemorrhage Time Spent (min) 35 Comment 25 minutes spent with patient and additional 10 minutes spent reviewing her records
[2024-03-29 14:11] VITALS: PULSE 76; O2SAT 96; BMI 17.3
== END 2024-03-29 14:46 | disposition home or self-care (01) ==
PROVIDERS: PCP Internal Medicine; Visit Provider Nurse Practitioner Family
DX: R10.13 Epigastric pain (principal); R63.4 Abnormal weight loss; K21.00 Gastro-esophageal reflux disease with esophagitis, without bleeding
CPT/HCPCS: 99214; G2211

== ENCOUNTER 2024-03-29 14:06 | Outpatient (REF) | payer MEDICARE, OTHER, SELFPAY ==
--- NOTE | ~2024-03-29 | XR_ITS ---
EXAMINATION: XR SOFT TISSUE NECK CLINICAL INDICATION: K22.2 - Esophageal obstruction COMPARISON: CT soft tissue neck 06/19/2023. Ultrasound of the thyroid 07/13/2023. TECHNIQUE: 2 views of the soft tissue neck were obtained. Exam submitted for review 04/17/2024 8:16 AM OPERATIONS LEAD. FINDINGS: Soft tissue films of the neck demonstrate a normal larynx, pharynx, hypopharynx, and upper trachea. No masses appreciated. No prevertebral soft tissue swelling or opaque foreign body is demonstrated. There are right greater than left carotid bulb calcifications, moderate. Severe degenerative changes spanning C3-C7 of the cervical spine, with ventrally projecting disc osteophyte at C3-4, C4-5, and C5-6. XR/XR soft tissue neck IMPRESSION: 1. No acute soft tissue abnormalities. 2. Recommend correlating with EGD if felt clinically warranted. Electronically signed by: Roberto Huffman MD 04/17/2024 09:19 AM JORDYN RIVERO
== END 2024-03-29 14:07 | disposition home or self-care (01) ==
LOC: HO.XRAY 14:06
PROVIDERS: PCP Internal Medicine; Visit Provider Nurse Practitioner Family
DX: K22.2 Esophageal obstruction (principal); R10.13 Epigastric pain; R63.4 Abnormal weight loss; K21.00 Gastro-esophageal reflux disease with esophagitis, without bleeding
CPT/HCPCS: 70360; 99212

== ENCOUNTER → 2024-03-29 15:02 | Outpatient (BNV) | payer MEDICARE, OTHER, SELFPAY | PROVIDERS: PCP Internal Medicine; Visit Provider Radiology Diagnostic Radiology | DX: K22.2 Esophageal obstruction (principal) | CPT/HCPCS: 70360 ==

== ENCOUNTER 2024-04-04 12:27 | Outpatient (REF) | payer MEDICARE, OTHER, SELFPAY ==
[2024-04-04 12:31] LABS: MANUAL DIFF FLAG NO
[2024-04-04 12:35] LABS: Basophils Percent Auto 0.7 % (0-2); Eosinophils Absolute Auto 0.1 X10*3/uL (0.0-0.4); Eosinophils Percent Auto 3.3 % (0-4); Hematocrit 45.4 % (37.0-47.0); Hemoglobin 14.4 g/dl (12.0-16.0); Imm Gran Abs Auto 0.01 X10*3/uL (0.00-0.03); Imm Gran Pct Auto 0.4 % (0.0-0.4); Lymphocytes Absolute Auto 0.7 X10*3/uL (1.2-4.9); Lymphocytes Percent Auto 27.5 % (20-40); Mean Corpuscular HGB Conc 31.7 g/dl (31.0-35.0); Mean Corpuscular Hemoglobin 29.8 pg (27.0-33.0); Mean Corpuscular Volume 93.8 fL (80.0-98.0); Mean Platelet Volume 10.2 fL (9.4-12.3); Monocytes Absolute Auto 0.4 X10*3/uL (0.1-1.2); Monocytes Percent Auto 13.8 % (2-11); Neutrophils Absolute Auto 1.5 x10*3/uL (2.0-8.3); Neutrophils Percent Auto 54.3 % (45-73); Platelet Count 155 X10*3/uL (160-400); Red Blood Count 4.84 X10*6/uL (4.20-5.50); Red Cell Distribution Width 14.4 % (11.0-16.0); White Blood Count 2.7 X10*3/uL (4.8-10.8)
[2024-04-04 12:44] LABS: Potassium 3.9 mmol/L (3.3-5.1)
--- OUTSIDE RECORDS SUMMARY | 2024-04-11 13:45 | XMS_ITS ---
Author Organization Alton Durham MD Address [address] [place] [address] [phone] Care Team Providers Care Oil Burner Journeyman Name Role Phone Alton Durham Primary Care Provider ALLERGIES Allergen (clinical drug ingredient) Drug/Non Drug Allergy documented on EMR Reaction Allergy Type Onset Date Status Keflex rash Drug Allergy Active ciprofloxacin Cipro rash and myalgia Drug Allergy Active sulfamethoxazole / trimethoprim Bactrim hives over entire body Drug Allergy Active ivp dye (uncoded) rash Allergy Ac tive RESULTS Component Value Reference Range Notes Occult Blood, Stool, Guaiac Reviewed date:03/14/2024 11:14:45 AM Interpretation:Negative Performing Lab: Notes/Report: Negative Occult Blood, Stool, Guaiac Neg REASON FOR VISIT labs reviewed, pelvic US from 07-30-23 still not done MEDICATIONS Medication SIG (Take, Route, Frequency, Duration) Notes Start Date End Date Status Valtrex 1 GM 1 tablet Orally 3 ti mes per day for 7 days 10/23/2016 Not-Taking Protonix 40 MG 1 TABLET ONCE A DAY ORALLY 90 DAYS Not-Taking Ondansetron HCl 4 MG 1 tablet Orally Onc e a day for 20 days 05/07/2023 Not-Taking Tylenol Extra Strength 500 MG 1 tablet as needed Orally every 6 hrs Not-Taking Famotidine 40 MG 1 tablet at bedtime Orally Once a day for 30 day(s) Not-Taking Rosuvastatin Calcium 40 MG take 1 tablet by mouth every day Orally Once a day Active Potassium Chloride 20 MEQ TAKE 1 PACKET AND MIX IN LIQUID AND DRINK BY MOUTH DAILY DIRECTED Orally QOD Active NexIUM 20 MG 1 capsule Orally twi ce a day Active Multi Vitamin/Minerals as directed Orally Active ZyrTEC 10 MG 1 tablet Orally Once a day for 30 day(s) Not-Taking SOCIAL HISTORY Tobacco Use: Social History Observation Description Date Details (start date - stop date) Never Smoker NA - NA Sex Assigned At : Social History Observation Description Sex Assigned At Unknown Tobacco Use/Smoking Question Answer Notes Patient is a nonsmoker Additional Findings: Tobacco Non-User Cu rrent non-smoker, currently using no form of tobacco Alcohol Screen Question Answer Notes Did you have a drink containing alcohol in the p ast year? No Points 0 Interpretation Negative VITAL SIGNS BMI 17.03 kg/m2 03/14/2024 Blood pressure systolic 122 mm Hg 03/14/20 24 Blood pressure diastolic 64 mm Hg 024 Height 68 in 03/14/2024 Weight 112 lbs 03/14/2024 weight is down 3 pounds sin e 12-13-23 Encounters Encounter Location Date Provider Diagnosis Alton Durham MD [address] [facility] [address] [place] [address] [phone] 03/14/2024 Alton Durham Neutropenia D70.9 ; Elevated cholesterol E78.00 ; Thyroid nodule E04.1 ; Esophageal dysfunction K22.4 ; Hypokalemia E87.6 ; Essential hypertension I10 ; Colon cancer screening Z12.11 and Depression screening Z13.31 ASSESSMENTS Encounter Date Diagnosis Assessment Notes Treatment Notes Treatment Clinical Notes 03/14/2024 Neutropenia (ICD-10 - D70.9) stable, pending future labs, will continue to monitor 03/14/2024 Elevated cholesterol (ICD-10 - E78.00) has elevated ldl but lft's are up a little. will continue current regiment and will contiue to monitor 03/14/2024 Thyroid nodule (ICD-10 - E04.1) will repeat us next year/ Thyroid order printed and put in future folder 03/14/2024 Esophageal dysfunction (ICD-10 - K22.4) on an incredibly strick diet, will continue current regiment 03/14/2024 Hypokalemia (ICD-10 - E87.6) stable, will continue to monitor 03/14/2024 Essential hypertension (ICD-10 - I10) doing well, will contiue current regiment 03/14/2024 Colon cancer screening (ICD-10 - Z12.11) guaiac negative 03/14/2024 Depression screening (ICD-10 - Z13.31) negative screen PLAN OF TREATMENT Treatment Notes Assessment Notes Neutropenia stable, pending futu re labs, will continue to monitor Elevated cholesterol has elevated ldl bu t lft's are up a little. will continue current regiment and will contiue to monitor Thyroid nodule will repeat us next year/ Thyroid order printed and put in future folder Esophageal dysfunction on an incredibly strick diet, will continue current regiment Hypokalemia stable, will continu e to monitor Essential hypertension doing well, will contiue current regiment Colon cancer screening guaiac negative Depression screening negative screen Pending Test Test Name Order Date Complete Blood Count Auto Diff Future Test Test Name Order Date US thyroid 09/11/2024 Next Appt Details Provider Name:Alton wick, 04/14/2024 10:45:00 AM, [address] [place] [address], [address] [place] [address], [phone], Provider Name:Alton wick, 08/31/2024 07:00:00 AM, [address] [place] [address], Suite [facility], [place], [place], [phone], Provider Name:Alton wick, 09/05/2024 08:45:00 AM, [address] [place] [address], Suite [facility], [place], [place], [phone], Provider Name:Alton wick, 03/09/2025 07:45:00 AM, [address] [place] [address], [place] [address], [place], [place], [phone], Provider Name:Alton Joiner delano, 03/16/2025 08:00:00 AM, [address], [address], [place], [place], [phone], Progress Notes * Examination Category Sub-Category Detail Notes General Examination GENERAL APPEARANCE: well dev eloped, well nourished, in no acute distress HEAD: normocephalic, atrau matic EYES: pupils equal, round, reactive to light and accommodation, sclera non- icteric EARS: normal THROAT: clear NECK/THYROID: neck supple, full ra nge of motion, no cervical lymphadenopathy, no bruits/ has nodule in isthmus unchanged HEART: regular rate and rhy thm, S1, S2 normal, no murmurs LUNGS: clear to auscultatio n bilaterally ABDOMEN: soft, nontender, non distended, bowel sounds present, normal, no organomegaly , no masses palpable NEUROLOGIC: nonfocal, motor stre ngth normal upper and lower extremities, sensory exam intact SKIN: warm and dry, no luiz picious lesions EXTREMITIES: no clubbing, cyanosi s, or edema BREASTS: No mass, no lump RECTAL EXAM: no masses guaiac neg ative FEMALE GENITOURINARY: not done ORAL CAVITY: mucosa moist History and Physical Notes * HPI (History of Present Illness) Category Sub-Category Detail Notes Depression Screening PHQ-9 Little inte rest or pleasure in doing things: Not at all Feeling down, depressed, or hopeless: No t at all Trouble falling or staying asleep, or sl eeping too much: Not at all Feeling tired or having little energy: N ot at all Poor appetite or overeating: Not at all Feeling bad about yourself o r that you are a failure, or have let yourself or your family down: Not at all Trouble concentrating on thi ngs, such as reading the newspaper or watching television: Not at all Moving or speaking so slowly that other people could have noticed; or the opposite, being so fidgety or restless that you have been moving around a lot more than usual: Not at all Thoughts that you would be b angela off or of hurting yourself in some way: Not at all Total Score: 0 Interpretation and Intervention Depression Fadiae jatinder Findings: Negative Follow-Up for Depression: : review of PH Q-9 found negative result, no follow-up needed SDOH Questions SDOH Questions In the past year have you been worried about losing housing?: No In the past year have you or any family members you live with been unable to get any of the following when it was really needed? Check all that apply:: None Fall Risk History Have you had any falls with injury in the past year?: No Have you had two or more falls in the year?: No Communication Needs Communication Needs Does the patient have a hearing impairment: No Does the patient have a vision impairmen t?: Yes ?If yes, what is the vision impairment?: Glasses Does the patient have a cognition impair ment?: No
--- OUTSIDE RECORDS SUMMARY | 2024-04-11 13:45 | XMS_ITS ---
Author Organization Alton Durham MD Address [address] [place], [place] [id number] Care Team Providers Care Hearing Aid Fitter Name Role Phone Alton Durham Primary Care Provider [phone] RESULTS Component Value Reference Range Notes Complete Blood Count Auto Di ff Reviewed date:03/14/2024 09:33:06 AM Interpretation:see back 03-14-2024 Performing Lab:[facility], [address] [place] [phone] Notes/Report: White Blood Count 2.5 4.8-10.8 X10*3/uL Red Blood Count 4.79 4.20-5.50 X10*6/uL Hemoglobin 14.5 12.0-16.0 g/dl Hematocrit 44.7 37.0-47.0 % Mean Corpuscular Volume 93.3 80.0-98.0 fL Mean Corpuscular Hemoglobin 30.3 27.0-33.0 pg Mean Corpuscular HGB Conc 32.4 31.0-35.0 g/dl Red Cell Distribution Width 13.6 11.0-16.0 % Platelet Count 157 160-400 X10*3/uL Mean Platelet Volume 10.8 9.4-12.3 fL Neutrophils Percent Auto 49.6 45-73 % Imm Gran Pct Auto 0.0 0.0-0.4 % Lymphocytes Percent Auto 31.9 20-40 % Monocytes Percent Auto 12.6 2-11 % Eosinophils Percent Auto 4.7 0-4 % Basophils Percent Auto 1.2 0-2 % NRBC Pct Auto 0.0 0.0-0.2 /100WBC Neutrophils Absolute Auto 1.3 2.0-8.3 x10*3/u L Imm Gran Abs Auto 0.00 0.00-0.03 X10*3/uL Lymphocytes Absolute Auto 0.8 1.2-4.9 X10*3/u L Monocytes Absolute Auto 0.3 0.1-1.2 X10*3/uL Eosinophils Absolute Auto 0.1 0.0-0.4 X10*3/u L Basophils Absolute Auto 0.0 0.0-0.2 X10*3/uL NRBC Abs Auto 0.000 0.0-0.012 X10*3/uL Comprehensive [place]. Panel Fa st Reviewed date:03/07/2024 04:52:00 PM Interpretation: Performing Lab:[facility], [address] [place] [phone] Notes/Report: Sodium 141 135-145 mmol/L Potassium 3.9 3.3-5.1 mmol/L Slight Hemoly sis.Interpret result with caution. Chloride 104 96-108 mmol/L Carbon Dioxide 27 22-29 mmol/L Anion Gap 14 12-20 Blood Urea Nitrogen 23 9-16 mg/dL Creatinine 0.64 0.5-1.4 mg/dL Estimated Glomerular Filt Rate > 60 NOTE: For -Cymro individuals, multiply the result by 1.210. Chronic Kidney Disease: Estimated GFR < 60 mL/min/1.73m2 Severe Kidney Disease: Estimated GFR < 15 mL/min/1.73m2 Glucose Fasting 83 60-99 mg/dL Calcium 10.1 8.4-10.2 mg/dL Bilirubin Total 0.6 0.0-1.0 mg/dL Aspartate Amino Transferase 43 5-31 U/L Slight Hemolysis.Interpret result with caution. Alanine Aminotransferase 40 0-31 U/L Total Protein 6.4 6.5-8.0 g/dL Albumin Level 4.0 3.5-5.0 g/dL Alkaline Phosphatase 80 39-117 U/L Lipid Panel Reviewed date:03/07/2024 04:52:17 PM Interpretation: Performing Lab:[facility], [address] [place] [phone] Notes/Report: Triglycerides 63 <150 mg/dL Desirable Triglyceride: less than 150 mg/dL Borderline High Triglyceride 150-199 mg/dL High Triglyceride: 200-499 mg/dL Very High Triglyceride: greater than or equal to 5OO mg/dL Cholesterol 215 <200 mg/dL Desirable Cholesterol: less than 200 mg/dL Borderline High Cholesterol: 200-239 mg/dL High Cholesterol: greater than 239 mg/dL LDL Cholesterol Calculated 123 <100 mg/dL Desirable LDL: less than 100 mg/dL Near Optimal/Above Optimal LDL: 110-129 mg/dL Borderline High LDL: 130-159 mg/dL High LDL: 160-189 mg/dL Very High LDL: greater than or equal to 190 mg/dL HDL Cholesterol 80 >40 mg/dL Desirable HDL: greater than 40 mg/dL Note: This HDL assay may give artificially low results in patients with liver disease. UA ClnCatch+Micro w/rflx Cul t Reviewed date:03/07/2024 04:51:31 PM Interpretation: Performing Lab:[facility], [address] [place] [phone] Notes/Report: Urine, Clean Catch Color Urine Yellow Appearance Urine Clear PH 6.5 5.0-9.0 Glucose Urine UA Negative Negative mg/dL Urine Blood Negative Negative Specific [place] - Urine 1.020 1.005-1.025 Urine Protein 30 (1+) Neg-Trace mg/dL Urine Ketones Negative Negative mg/dL Nitrite Urine Negative Negative Leukocyte Esterase Urine Trace Negative RBC Urine 0-2 0-2 /HPF WBC Urine 0-5 0-5 /HPF Squamous Epithelial Cell Urine 0-2 0-2 /HPF Bacteria Urine None Seen None Seen Hyaline Casts Urine 0-2 0-2 /LPF REASON FOR VISIT yearly fasting labs Encounters Encounter Location Date Provider Diagnosis Alton Durham MD [address] [place] [address] Drive [address] [place], [place] [phone] 03/07/2024 Alton Durham Blood tests for routine general physical examination Z00.00 ; Neutropenia D70.9 ; Elevated cholesterol E78.00 and Essential hypertension I10 ASSESSMENTS Encounter Date Diagnosis Assessment Notes Treatment Notes Treatment Clinical Notes 03/07/2024 Blood tests for routine general physical examination (ICD-10 - Z00.00) 03/07/2024 Neutropenia (ICD-10 - D70.9) 03/07/2024 Elevated cholesterol (ICD-10 - E78.00) 03/07/2024 Essential hypertension (ICD-10 - I10) PLAN OF TREATMENT Next Appt Details Provider Name:Alton wick, 04/14/2024 10:45:00 AM, [address] [place] [address], [address] [place], [phone], Provider Name:Alton wick, 08/31/2024 07:00:00 AM, [address] [place] [address], [address] [place], [id number], Provider Name:Alton wick, 09/05/2024 08:45:00 AM, [address] [place] [address], [place] [address], [place], [phone], Provider Name:Alton wick, 03/09/2025 07:45:00 AM, [address] [place] [address], [address] [place], [phone], Provider Name:Alton wick, 03/16/2025 08:00:00 AM, [address] [place] [address] ELIE Muse, [phone],
--- OUTSIDE RECORDS SUMMARY | 2024-04-11 13:45 | XMS_ITS ---
Author Organization Alton Durham MD Address [address] [place], [place] [phone] Care Team Providers Care Healthcare Architect Name Role Phone JeimyAlton staley Primary Care Provider RESULTS Component Value Reference Range Notes Complete Blood Count Auto Di ff Reviewed date:04/04/2024 12:44:09 PM Interpretation: Performing Lab:[facility], [address] [place] [phone] Notes/Report: White Blood Count 2.7 4.8-10.8 X10*3/uL Red Blood Count 4.84 4.20-5.50 X10*6/uL Hemoglobin 14.4 12.0-16.0 g/dl Hematocrit 45.4 37.0-47.0 % Mean Corpuscular Volume 93.8 80.0-98.0 fL Mean Corpuscular Hemoglobin 29.8 27.0-33.0 pg Mean Corpuscular HGB Conc 31.7 31.0-35.0 g/dl Red Cell Distribution Width 14.4 11.0-16.0 % Platelet Count 155 160-400 X10*3/uL Mean Platelet Volume 10.2 9.4-12.3 fL Neutrophils Percent Auto 54.3 45-73 % Imm Gran Pct Auto 0.4 0.0-0.4 % Lymphocytes Percent Auto 27.5 20-40 % Monocytes Percent Auto 13.8 2-11 % Eosinophils Percent Auto 3.3 0-4 % Basophils Percent Auto 0.7 0-2 % NRBC Pct Auto 0.0 0.0-0.2 /100WBC Neutrophils Absolute Auto 1.5 2.0-8.3 x10*3/u L Imm Gran Abs Auto 0.01 0.00-0.03 X10*3/uL Lymphocytes Absolute Auto 0.7 1.2-4.9 X10*3/u L Monocytes Absolute Auto 0.4 0.1-1.2 X10*3/uL Eosinophils Absolute Auto 0.1 0.0-0.4 X10*3/u L Basophils Absolute Auto 0.0 0.0-0.2 X10*3/uL NRBC Abs Auto 0.000 0.0-0.012 X10*3/uL Potassium Reviewed date:04/04/2024 12:47:19 PM Interpretation: Performing Lab:[facility], [address] [place] [phone] Notes/Report: Potassium 3.9 3.3-5.1 mmol/L REASON FOR VISIT CBC, Potassium Encounters Encounter Location Date Provider Diagnosis Alton Durham MD [address] [place] [address] [place] [phone] 04/04/2024 Alton Durham Neutropenia D70.9 ASSESSMENTS Encounter Date Diagnosis Assessment Notes Treatment Notes Treatment Clinical Notes 04/04/2024 Neutropenia (ICD-10 - D70.9) PLAN OF TREATMENT Next Appt Details Provider Name:Alton wick, 04/14/2024 10:45:00 AM, [address] [place] [address], [address] [place] [address], [id number], Provider Name:Alton wick, 08/31/2024 07:00:00 AM, [address] [place] [address], [address], [phone], Provider Name:Alton wick, 09/05/2024 08:45:00 AM, [address] [place] [address], [address], [place] Muse, [phone], Provider Name:Alton wick, 03/09/2025 07:45:00 AM, [address] [place] [address], [address], [place] Muse, [phone], Provider Name:Alton wick, 03/16/2025 08:00:00 AM, [address] [place] [address], [address], [place], [phone],
--- OUTSIDE RECORDS SUMMARY | 2024-04-11 13:46 | XMS_ITS | Patient Health Record ---
Author Organization [facility] Address [address] [place] [phone] Care Team Providers Care Space Buyer Name Role Phone Alton Duhram MD Primary Care Provider Bean Cortes Jr [phone] REASON FOR REFERRAL No Information SOCIAL HISTORY Sex Assigned At : Social History Observation Description Sex Assigned At Unknown Encounters Encounter Location Date Provider Diagnosis [facility] [address] [place] [phone] 09/16/2023 Bean Holley Jr [facility] [address] [place] [phone] 06/15/2023 Bean Holley Jr PLAN OF TREATMENT No Information Insurance Providers Payer Name Payer Address Payer Phone Subscriber Number Group Number Insured Name Patient Relationship to Insured Coverage Start Date Coverage End Date MEDICARE OF EL[place] [address] [place] [address] [phone] [id number] ARINA WHITE Self - patient is the insured [facility] [address] [address] [place] [address] [id number] [facility] ARINA WHITE Self - patient is the insured
--- OUTSIDE RECORDS SUMMARY | 2024-04-11 13:46 | XMS_ITS ---
Author Organization [facility] Address [address] [place] [address] Care Team Providers Care Manager Camp Name Role Phone Alton Durham MD Primary Care Provider Bean Cortes Jr Unavailable REASON FOR VISIT cancel appt Encounters Encounter Location Date Provider Diagnosis [facility] [address] [place] [address] 06/15/2023 Bean Holley Jr PLAN OF TREATMENT No Information
--- OUTSIDE RECORDS SUMMARY | 2024-04-11 13:46 | XMS_ITS | Patient Health Record ---
Author Organization Alton Durham MD Address [address] [place] [phone] Care Team Providers Care Systems Test Engineer Name Role Phone Alton Durham Primary Care Provider [phone] ALLERGIES Allergen (clinical drug ingredient) Drug/Non Drug Allergy documented on EMR Reaction Allergy Type Onset Date Status Keflex rash Drug Allergy Active ciprofloxacin Cipro rash and myalgia Drug Allergy Active sulfamethoxazole / trimethoprim Bactrim hives over entire body Drug Allergy Active ivp dye (uncoded) rash Allergy Ac tive RESULTS Component Value Reference Range Notes CT head/brain wo con Reviewed date:04/14/2023 02:44:03 PM Interpretation: Performing Lab: Notes/Report: [facility] [address] [place] [address] CT Scan Report Signed Patient: Maureen Foreman MR#: [id number] : 1940 Acct:[id number] Age/Sex: 82 / F ADM Date: 04/14/23 Loc: .ED Attending Dr: Ordering Physician: Alyssa Powers MD Date of Service: 04/14/23 Procedure(s): CT head/brain wo IV con Accession Number(s): [id number] cc: Alton Durham MD; Alyssa Powers MD EXAMINATION: CT HEAD WITHOUT CONTRAST CLINICAL INFORMATION: 82-year-old with head trauma. COMPARISON: None available. TECHNIQUE: Contiguous axial imaging was performed from the skull base to vertex without intravenous administration of contrast. This CT examination was performed using dose optimization techniques as appropriate, variously including the following: *Automated exposure control *Adjustment of mA and/or kV according to patient size (this includes techniques or standardized protocols for targeted exams where dose is matched to indication/reason for exam; i.e. extremities or head) *Use of iterative reconstruction technique DLP: 582 mGy-cm FINDINGS: Brain Volume: Mild generalized diffuse parenchymal volume loss within the limitations of qualitative assessment. Structural: No malformations. Brain and Meninges: Scattered tiny zones of patchy hypodensity are seen in the subcortical white matter of both cerebral hemispheres which are nonspecific but are most likely reflective of chronic ischemic microangiopathy in a patient of this age. There is no evidence for intracranial hemorrhage, extra-axial fluid collection, space-occupying process or mass effect. [place]ios-white matter interface is preserved and there is no acute territorial infarct/edematous infarction. Ganglionic structures and midbrain appear grossly intact. There is beam hardening artifact partially obscuring the stas which limits the study. Ventricles and Subarachnoid Spaces: The ventricular system and subarachnoid spaces are within normal range; there is no hydrocephalus. Orbital Structures: Grossly unremarkable within the limitations of the study. Osseous Structures, Sinuses/Mastoids, Extracranial Soft Tissues: Unremarkable CT/CT head/brain wo IV con IMPRESSION: 1. No acute intracranial process. No evidence for acute territorial infarct, intracranial hemorrhage, extra-axial fluid collection, space-occupying process or mass effect. 2. Scattered tiny zones of patchy hypodensity in the subcortical white matter of both cerebral hemispheres which are nonspecific but are most likely reflective of chronic ischemic microangiopathy in a patient of this age. Dictated By: KENN BRIDGES MD Signed By: <Electronically signed by KENN BRIDGES MD in OV> 04/14/23 0909 DD/ 0835 TD/TT: University Relations Director: MR head/brain wo con Reviewed date:04/14/2023 02:43:32 PM Interpretation: Performing Lab: Notes/Report: [address] [address] Magnetic Resonance Report Signed Patient: Maureen Foreman MR#: [id number] : 1940 Acct:[id number] Age/Sex: 82 / F ADM Date: 04/14/23 Loc: HO.ED Attending Dr: Ordering Physician: Alyssa Powers MD Date of Service: 04/14/23 Procedure(s): MR head/brain wo con Accession Number(s): [id number] cc: Alton Durham MD; Alyssa Powers MD EXAMINATION: MRI OF THE BRAIN WITHOUT CONTRAST CLINICAL INFORMATION: TIA symptoms, right facial droop and right upper extremity heaviness, resolved. COMPARISON: CT scan of the head earlier 04/14/2023. MRI scan of the brain 09/27/2019. TECHNIQUE: MRI of the brain was obtained using routine sequences without contrast. FINDINGS: No diffusion abnormalities are identified to suggest an acute or subacute infarct. There is an equivocal focus of increased diffusion signal with restriction in the right aspect of the stas ventrally, likely artifact. No mass effect or midline shift is seen. The ventricles and sulci commensurately prominent consistent with diffuse volume loss. There are moderate areas of increased T2 and FLAIR signal in the periventricular and subcortical white matter, as well as relatively extensive areas within the stas consistent with chronic microvascular ischemic changes. No extra-axial fluid collections are seen. The cerebellar appears normal. No pathologic magnetic susceptibility artifact is identified on the gradient refocused acquisition. The craniovertebral junction, marrow signal, and midline structures are normal. The major intracranial flow-voids at the level of the [place] are preserved. The dural venous sinus flow-voids are maintained. The mastoid air cells are well-aerated. There is mild mucoperiosteal thickening in the ethmoid sinuses bilaterally. MR/MR head/brain wo con IMPRESSION: 1. There is an equivocal focus of increased diffusion signal with apparent restriction in the right aspect of the stas ventrally, likely artifact. There is no other abnormal diffusion signal. There is no evidence of acute hemorrhage. 2. There are chronic microvascular ischemic changes and there is diffuse volume loss. 3. This critical result was discussed with Alyssa Powers by telephone on 04/14/2023 at 1:35 PM and it was ascertained that the content and urgency of the report was understood at the time of direct communication. Dictated By: DESI JANG MD Signed By: <Electronically signed by DESI JANG MD in OV> 04/14/23 1342 DD/ 1303 TD/TT: University Relations Director: PEYTON MM tomosynthesis screening B I Reviewed date:04/29/2023 01:07:33 PM Interpretation: Performing Lab: Notes/Report: [facility]'[address] [place] [address] Mammography Report Signed Patient: Maureen Foreman MR#: [id number] : 1940 Acct:[id number] Age/Sex: 82 / F ADM Date: 04/19/23 Loc: HO.MAMMO Attending Dr: Alton Durham MD Ordering Physician: Alton Durham MD Results: 2Be nign Findings Date of Service: 04/19/23 Follow Up: 1 Year From [facility] Mammogram Procedure(s): MM tomosynthesis screening BI Accession Number(s): [id number] cc: Alton Durham MD EXAMINATION: MM SCREENING DIGITAL BREAST TOMOSYNTHESIS, BILATERAL CLINICAL INFORMATION: Screening. Asymptomatic. COMPARISON: Mammography: This study is compared with prior exams dating back to 2019. TECHNIQUE: Digital breast tomosynthesis is performed in both the craniocaudal and mediolateral oblique views along with computer-aided detection (CAD). Synthesized 2D images are generated from the tomosynthesis. FINDINGS: There are scattered areas of fibroglandular density (ACR BI-RADS breast composition Category b). There are no significant masses, abnormal calcifications, or other abnormalities. The previously defined left breast focal asymmetry in the 3:00 position is no longer present. The finding was sales representative canvas products of a simple cyst on sonography from 2019. There are bilateral benign calcifications. MM/MM tomosynthesis screening BI IMPRESSION: No mammographic evidence of malignancy. ASSESSMENT: BI-RADS BI-RADS 2 - Benign Findings RECOMMENDATION: Routine annual mammography screening. 1 year F/U This examination should not preclude the clinical evaluation of a suspicious palpable abnormality. This patient's information was entered into a reminder system with a target due date for their next mammogram. Dictated By: Janet Marquez MD Signed By: <Electronically signed by Janet Marquez MD in OV> 04/29/23 0911 DD/ 0808 TD/TT: University Relations Director: Complete Blood Count Auto Di ff Reviewed date:06/20/2023 05:43:45 PM Interpretation: Performing Lab:[facility], [address] [place] [phone] Notes/Report: White Blood Count 3.2 4.8-10.8 X10*3/uL Red Blood Count 5.07 4.20-5.50 X10*6/uL Hemoglobin 15.6 12.0-16.0 g/dl Hematocrit 46.6 37.0-47.0 % Mean Corpuscular Volume 91.9 80.0-98.0 fL Mean Corpuscular Hemoglobin 30.8 27.0-33.0 pg Mean Corpuscular HGB Conc 33.5 31.0-35.0 g/dl Red Cell Distribution Width 13.3 11.0-16.0 % Platelet Count 148 160-400 X10*3/uL Mean Platelet Volume 9.8 9.4-12.3 fL Neutrophils Percent Auto 65.2 45-73 % Imm Gran Pct Auto 0.3 0.0-0.4 % Lymphocytes Percent Auto 20.2 20-40 % Monocytes Percent Auto 11.5 2-11 % Eosinophils Percent Auto 1.9 0-4 % Basophils Percent Auto 0.9 0-2 % NRBC Pct Auto 0.0 0.0-0.2 /100WBC Neutrophils Absolute Auto 2.1 2.0-8.3 x10*3/u L Imm Gran Abs Auto 0.01 0.00-0.03 X10*3/uL Lymphocytes Absolute Auto 0.7 1.2-4.9 X10*3/u L Monocytes Absolute Auto 0.4 0.1-1.2 X10*3/uL Eosinophils Absolute Auto 0.1 0.0-0.4 X10*3/u L Basophils Absolute Auto 0.0 0.0-0.2 X10*3/uL NRBC Abs Auto 0.000 0.0-0.012 X10*3/uL Liver Panel Reviewed date:06/20/2023 05:35:16 PM Interpretation: Performing Lab:[facility], [address] [place] [phone] Notes/Report: Bilirubin Total 0.6 0.0-1.0 mg/dL Bilirubin Direct 0.3 0.0-0.5 mg/dL Aspartate Amino Transferase 26 5-31 U/L Alanine Aminotransferase 26 0-31 U/L Total Protein 6.9 6.5-8.0 g/dL Albumin Level 4.3 3.5-5.0 g/dL Alkaline Phosphatase 67 39-117 U/L Basic Metabolic Panel Reviewed date:06/20/2023 05:36:04 PM Interpretation: Performing Lab:[facility], [address] [place] [phone] Notes/Report: Sodium 141 135-145 mmol/L Potassium 4.1 3.3-5.1 mmol/L Chloride 104 96-108 mmol/L Carbon Dioxide 28 22-29 mmol/L Anion Gap 13 12-20 Blood Urea Nitrogen 19 9-16 mg/dL Creatinine 0.69 0.5-1.4 mg/dL Creatinine Clr Calc Pharmacy 61.2 Provided height and weight: 172.72 cm, 66.678 kg. eGFR (calculated from the MDRD study equation) and eCrCl (calculated from the Cockcroft-Gault equation) are based on different parameters and may not yield comparable results. If eCrCl result is absurd, please check patient's height/weight. Estimated Glomerular Filt Rate > 60 NOTE: For -Bhutanese individuals, multiply the result by 1.210. Chronic Kidney Disease: Estimated GFR < 60 mL/min/1.73m2 Severe Kidney Disease: Estimated GFR < 15 mL/min/1.73m2 Glucose Random 99 60-115 mg/dL Calcium 10.0 8.4-10.2 mg/dL Magnesium Reviewed date:06/20/2023 05:35:36 PM Interpretation: Performing Lab:[facility], [address] [place] [phone] Notes/Report: Magnesium 1.9 1.6-2.6 mg/dL Troponin-I High Sensitivity Reviewed date:06/20/2023 05:35:45 PM Interpretation: Performing Lab:[facility], [address] [place] [phone] Notes/Report: Troponin-I High Sensitivity 4.7 <3.5-17.0 ng/ L [facility] high sensitivity Troponin-I results should be used in conjunction with other diagnostic information such as ECG, clinical observations and information, and patient symptoms to aid in the diagnosis of PA. Thyroid Stimulating Hormone Reviewed date:06/20/2023 05:32:25 PM Interpretation: Performing Lab:[facility], [address] [place] [phone] Notes/Report: Thyroid Stimulating Hormone 0.53 0.32-4.0 uIU/ mL TSH 3rd Generation ([facility]) CT soft tissue neck wo con Reviewed date:06/24/2023 03:09:06 PM Interpretation: Performing Lab: Notes/Report: [address] [address] [address] Scan Report Signed Patient: Maureen Foreman MR#: [id number] : 1940 Acct:[id number] Age/Sex: 83 / F ADM Date: 06/19/23 Loc: .ED Attending Dr: Ordering Physician: Kassie Knight Date of Service: 06/19/23 Procedure(s): CT soft tissue neck wo IV con Accession Number(s): [id number] cc: Alton Durham MD; Kassie Knight EXAMINATION: CT SOFT TISSUE NECK WITHOUT CONTRAST CLINICAL INFORMATION: Dysphagia. COMPARISON: Thyroid ultrasound from 02/12/2017. TECHNIQUE: Multidetector helical imaging was performed in the axial plane without intravenous contrast. Multiple axial reformats and coronal/sagittal reconstructions were created the technologist workstation for review. This CT examination was performed using dose optimization techniques as appropriate, variously including the following: *Automated exposure control. *Adjustment of mA and/or kV according to patient size (this includes techniques or standardized protocols for targeted exams where dose is matched to indication/reason for exam; i.e. extremities or head). *Use of iterative reconstruction technique. DLP: 393 mGy-cm FINDINGS: No significant cutaneous thickening or subcutaneous inflammation. No discrete fluid collection within the deep tissues of the neck. The premaxillary, retromaxillary, pterygopalatine fossa, orbital apical, parapharyngeal, and prelaryngeal adipose tissue is maintained. Normal appearance of the parotid and submandibular glands. Heterogeneity of the thyroid gland with multiple mixed attenuating thyroid nodules, measuring up to 1.5 cm in the lower pole the left thyroid lobe. Scattered subcentimeter lymph nodes bilaterally, none of which are pathologically enlarged. No demonstrated focal lesion within the intrinsic tissues of the tongue or floor of mouth. No demonstrated focal lesion within the inferior Normal mucosal contours of the pharynx and larynx. Normal appearance of the hyoid bone, thyroid cartilage, or cartilaginous trachea. The airways remains widely patent. No radiopaque foreign bodies. The atlantooccipital and atlantoaxial articulations remain well aligned. Straightening of the normal cervical lordosis. Mild degenerative anterolisthesis of C7 on T1. No evidence of acute fracture or subluxation of the cervical spine. The vertebral body heights are maintained. Advanced degenerative disc disease from C4-C7. Moderate degenerative disc disease at C3-C4. Facet and uncovertebral joint arthropathy leads to osseous encroachment on the neural foramina from C3-C7. There is no prevertebral soft tissue swelling. The visualized portion of the skull base is without significant abnormalities. The visualized paranasal sinuses are clear. The mastoid air cells and middle ear cavities are clear. No demonstrated significant periapical odontogenic disease. CT Upper Chest: The visualized lung apices and upper mediastinum are within normal limits. CT/CT soft tissue neck wo IV con IMPRESSION: 1. No demonstrated focal lesion, collection, or lymphadenopathy within the soft tissues of the neck. 2. Heterogeneous thyroid gland with multiple mixed attenuating thyroid nodules, measuring up to 1.5 cm in the lower pole the left thyroid lobe. Recommend further characterization with thyroid ultrasound. 3. Moderate multilevel degenerative spondyloarthropathy of the cervical spine. Dictated By: Calos Townsend DO Signed By: <Electronically signed by Calos Townsend DO in OV> 06/19/23 1033 DD/ 0837 TD/TT: University Relations Director: ADAMS Troponin-I High Sensitivity Reviewed date:06/20/2023 05:32:15 PM Interpretation: Performing Lab:[facility] [address] [place] [phone] Notes/Report: Troponin-I High Sensitivity 5.4 <3.5-17.0 ng/ L [facility] high sensitivity Troponin-I results should be used in conjunction with other diagnostic information such as ECG, clinical observations and information, and patient symptoms to aid in the diagnosis of PA. US renal BI Reviewed date:06/29/2023 11:11:00 AM Interpretation: Performing Lab: Notes/Report: [address] [address] Ultrasound Report Signed Patient: Maureen Foreman MR#: [id number] : 1940 Acct:[id number] Age/Sex: 83 / F ADM Date: 06/28/23 Loc: HO.US Attending Dr: Som Mckeon MD Ordering Physician: Som Mckeon MD Date of Service: 06/28/23 Procedure(s): US renal BI Accession Number(s): [id number] cc: Som Mckeon MD; Alton Durham MD EXAMINATION: US RETROPERITONEAL LIMITED (RENAL ONLY) CLINICAL INFORMATION: Calculus of kidney. COMPARISON: CT abdomen and pelvis 01/20/2023. Renal ultrasound 06/23/2022 and 07/01/2021. X-ray abdomen 12/21/2018 and 10/05/2018. TECHNIQUE: Real-time imaging of the kidneys. Limited visualization due to bowel gas. FINDINGS: RIGHT KIDNEY: 11 x 4.2 x 5.3 cm (SAG x AP x TRV). No hydronephrosis. A 0.9 cm midpole calculus. Renal cortical thickness is normal. Limited visualization. LEFT KIDNEY: 11.8 x 3.9 x 4.4 cm (SAG x AP x TRV). No hydronephrosis. No renal calculi. Renal cortical thickness is normal. Limited visualization. Lower pole 0.7 x 0.5 x 0.5 cm cyst. There is no indication for follow-up imaging. US/US renal BI IMPRESSION: Right renal 0.9 cm midpole calculus. No hydronephrosis. Dictated By: Amalia Ly MD Signed By: <Electronically signed by Amalia Ly MD in OV> 06/29/23 0524 DD/ 0837 TD/TT: University Relations Director: Pathology Reviewed date:07/14/2023 02:39:57 PM Interpretation: Performing Lab:[facility], [address] [place] [phone] Notes/Report: FL upper GI series Reviewed date:07/14/2023 02:39:32 PM Interpretation: Performing Lab: Notes/Report: [address] [address] Fluoroscopy Report Signed Patient: Maureen Foreman MR#: [id number] : 1940 Acct:[id number] Age/Sex: 83 / F ADM Date: 07/13/23 Loc: HO. Attending Dr: Alton Durham MD Ordering Physician: Alton Durham MD Date of Service: 07/13/23 Procedure(s): FL upper GI series Accession Number(s): [id number] cc: Alton Durham MD EXAMINATION: XR FLUOROSCOPY UPPER GI SERIES CLINICAL INFORMATION: Dysphagia. Recent endoscopy demonstrating esophageal dysmotility COMPARISON: 08/22/2018. TECHNIQUE: Fluoroscopic air contrast upper GI examination was performed utilizing standard techniques with thin and thick barium and effervescent granules. Numerous spot images were obtained. FINDINGS: Moderate spondylosis of the cervical spine present most notably involving C4-C7. A ventral bridging osteophyte at C5-C6 minimally indents upon the most superior esophagus. Lateral cine images of the oropharynx and hypopharynx demonstrate normal swallow mechanism with normal epiglottic inversion and soft palate elevation. There is trace laryngeal penetration with thick barium to the level of the true vocal cords. No subglottic aspiration identified. No nasopharyngeal reflux present. Hypopharyngeal structures appear normal without evidence of mass or diverticulum. There was no significant cricopharyngeal achalasia. Dual and single contrast images of the esophagus demonstrate normal caliber and contour. Within the upper third of the esophagus, there are subtle foci of contrast pooling suggesting superficial erosions (RF 1-5, image 11 of 86). Mild esophageal fold thickening is present. There is no mass present. There is to and fro motion of barium column with nonpropulsive tertiary contractions noted throughout the esophagus. There is bird beaking of the distal esophagus at the GE junction suggesting mild to moderate achalasia. No evidence of hiatus hernia identified. No significant gastroesophageal reflux was seen during the course of the examination and on reflux views. Dual contrast and single contrast images of the stomach demonstrated a normal contour. Gastric mucosal folds appear thickened, likely representing gastritis. No evidence of mass or other abnormalities. Contrast freely passed into the gastric antrum and duodenal bulb without delay. Single and air-contrast images of the duodenal bulb demonstrate no abnormality. The duodenal sweep has a normal appearance, course, and mucosal fold appearance. The imaged proximal jejunum has a normal fold pattern and caliber. FLUOROSCOPY TIME: 4 minutes 30 seconds Number of Spot Images: 7 Number of Cine: 10 DOSE AREA PRODUCT: 1454 uGy-m2 (microgray-meter squared) FL/FL upper GI series IMPRESSION: 1. Trace laryngeal penetration with thick barium to the level of the true vocal cords. No subglottic aspiration. 2. Esophageal dysmotility. Granular mucosa with subtle ulcerations and fold thickening suggesting erosive esophagitis. 3. Mild to moderate narrowing at the GE junction with appearance suggestive of achalasia. 4. Thickened gastric rugal folds and subtle small scattered apthous type ulcerations that are consistent with erosive gastritis. This was seen on endoscopy per report. This procedure was performed by Frank Zamora PA-C, and supervised by Dr. Huffman Dictated By: Frank Zamora Signed By: <Electronically signed by Frank Zamora in OV> 07/14/23 1240 <Electronically signed by Roberto Huffman MD in OV> 07/14/23 1243 DD/ 1100 TD/TT: University Relations Director: US thyroid Reviewed date:07/15/2023 10:04:09 AM Interpretation: Performing Lab: Notes/Report: [address] [address] Ultrasound Report Signed Patient: Maureen Foreman MR#: [id number] : 1940 Acct:[id number] Age/Sex: 83 / F ADM Date: 07/13/23 Loc: HO.US Attending Dr: Alton Durham MD Ordering Physician: Alton Durham MD Date of Service: 07/13/23 Procedure(s): US thyroid Accession Number(s): [id number] cc: Alton Durham MD EXAMINATION: US THYROID CLINICAL INFORMATION: Nontoxic single thyroid nodule. COMPARISON: Ultrasound soft tissue head/neck thyroid dated 04/15/2020. TECHNIQUE: Linear transducer grayscale and color Doppler examination with attention to the region of the thyroid. FINDINGS: SIZE: Measurements of the thyroid lobes and nodules are given in sagittal, anteroposterior and transverse dimensions respectively. Right Thyroid Lobe: 4.7 x 2.4 x 2.0 cm, volume 9.3 mL. Previously 5.2 x 2.1 x 1.8 cm, volume 12.7 mL. Parenchyma: The gland echotexture is homogeneous. Thyroid vascularity is normal. Left Thyroid Lobe: 5.2 x 2.3 x 1.5 cm, volume 9.4 mL. Previously 5.9 x 2.4 x 1.9 cm, volume 14.0 mL. Parenchyma: The gland echotexture is homogeneous. Thyroid vascularity is normal. Isthmus: 0.6 cm in maximum AP dimension. Previously 0.5 cm. Estimated total number of nodules greater than or equal to 1 cm: 3. Metal Framer nodules are described as follows: 1. Location: Left inferior. Size: 1.5 x 0.9 x 1.1 cm, volume 0.8 mL. Previously: 1.1 x 0.6 x 1.5 cm, volume 0.5 mL. Nodule characteristics: Composition: Solid/almost completely solid (2). Echogenicity: Isoechoic (1). Shape: Not taller than wide (0). Margins: Ill-defined (0). Echogenic Foci: None (0). ACR TI-RADS total points: 3 ACR TI-RADS category: 3 Significant change in size (>/= 20% in 2 dimensions and minimal increase of 2 mm or 50% or greater increase in volume): Yes Change in features: No Change in ACR TI-RADS risk category: Not applicable 2. Location: Inferior isthmus. Size: 1.4 x 0.5 x 1.0 cm, volume 0.4 mL. Previously: 1.3 x 0.6 x 1.0 cm, volume 0.4 mL. Nodule characteristics: Composition: Mixed cystic and solid (1). Echogenicity: Cannot be determined (1). Shape: Not taller than wide (0). Margins: Smooth (0). Echogenic Foci: None (0). ACR TI-RADS total points: 2 ACR TI-RADS category: 2 Significant change in size (>/= 20% in 2 dimensions and minimal increase of 2 mm or 50% or greater increase in volume): No Change in features: No Change in ACR TI-RADS risk category: Not applicable. 3. Location: Right inferior. Size: 1.1 x 0.6 x 0.9 cm, volume 0.3 mL. Previously: 1.0 x 0.8 x 0.9 cm, volume 0.4 mL. Nodule characteristics: Composition: Solid/almost completely solid (2). Echogenicity: Cannot be determined (1). Shape: Not taller than wide (0). Margins: Smooth (0). Echogenic Foci: None (0). ACR TI-RADS total points: 3 ACR TI-RADS category: 3 Significant change in size (>/= 20% in 2 dimensions and minimal increase of 2 mm or 50% or greater increase in volume): No Change in features: No Change in ACR TI-RADS risk category: Not applicable. 4. Location: Right inferior. Size: 0.7 x 0.4 x 0.8 cm, volume 0.1 mL. Previously: 0.8 x 0.4 x 0.7 cm, volume 0.1 mL. Nodule characteristics: Composition: Mixed cystic and solid (1). Echogenicity: Hypoechoic (2). Shape: Not taller than wide (0). Margins: Smooth (0). Echogenic Foci: None (0). ACR TI-RADS total points: 3 ACR TI-RADS category: 3 Significant change in size (>/= 20% in 2 dimensions and minimal increase of 2 mm or 50% or greater increase in volume): No Change in features: No Change in ACR TI-RADS risk category: Not applicable. NODES: No lymphadenopathy is seen in the tissue surrounding the thyroid gland. US/US thyroid IMPRESSION: Multiple thyroid nodules with largest sales representative canvas products as follows: 1. Left inferior TR 3 nodule measuring 1.5 cm, slightly increased in size compared to 04/15/2020. 2. Inferior isthmic TR 2 nodule measuring 1.4 cm, not significantly changed. 3. Right inferior TR 3 nodule measuring 1.1 cm, not significantly changed. 4. Right inferior TR 3 nodule measuring 0.8 cm, not significantly changed. Recommend continued follow-up with ultrasound following the guidelines below. ACR TI-RADS RECOMMENDATION REFERENCE: Ultrasound-guided fine-needle aspiration, follow up ultrasound, no further followup. * TR1 (0 point) and TR2 (2 points): No FNA or followup * TR3 (3 points): FNA if more than or equal to 2.5 cm in maximum dimension, follow up ultrasound in 1, 3 and 5 years if 1.5 to 2.4 cm in maximum dimension. * TR4 (4-6 points): FNA if more than or equal to 1.5 cm in maximum dimension, follow up ultrasound in 1, 2, 3 and 5 years if 1 to 1.4 cm in maximum dimension. * TR5 (more than or equal to 7 points): FNA if more than or equal to 1 cm in maximum dimension, follow up ultrasound every year for 5 years if 0.5 to 0.9 cm in maximum dimension. * TR3, TR4 or TR5 nodules that are below the size threshold for follow up receive no followup. Dictated By: Eryn Dodd Signed By: <Electronically signed by Eryn Dodd in OV> 07/14/23 1651 DD/ 1024 TD/TT: University Relations Director: Marta Brush Reviewed date:08/13/2023 02:00:51 PM Interpretation: Performing Lab:[facility], [address] [place] [phone] Notes/Report: Rast Allergen SEE NOTE SEE SCANNED RE SULT IN EMR Hold Gold Reviewed date:08/31/2023 11:16:55 AM Interpretation: Performing Lab:[facility], [address] [place] [phone] Notes/Report: Nely Dubose See Note Specimen held untested for 24 hours; Call to request Chemistry testing. Complete Blood Count Auto Di ff Reviewed date:08/31/2023 12:37:41 PM Interpretation: Performing Lab:[address] [phone] Notes/Report: White Blood Count 3.1 4.8-10.8 X10*3/uL Red Blood Count 4.77 4.20-5.50 X10*6/uL Hemoglobin 14.7 12.0-16.0 g/dl Hematocrit 44.4 37.0-47.0 % Mean Corpuscular Volume 93.1 80.0-98.0 fL Mean Corpuscular Hemoglobin 30.8 27.0-33.0 pg Mean Corpuscular HGB Conc 33.1 31.0-35.0 g/dl Red Cell Distribution Width 13.9 11.0-16.0 % Platelet Count 144 160-400 X10*3/uL Mean Platelet Volume 11.1 9.4-12.3 fL Neutrophils Percent Auto 51.3 45-73 % Imm Gran Pct Auto 0.3 0.0-0.4 % Lymphocytes Percent Auto 27.1 20-40 % Monocytes Percent Auto 12.7 2-11 % Eosinophils Percent Auto 7.3 0-4 % Basophils Percent Auto 1.3 0-2 % NRBC Pct Auto 0.0 0.0-0.2 /100WBC Neutrophils Absolute Auto 1.6 2.0-8.3 x10*3/u L Imm Gran Abs Auto 0.01 0.00-0.03 X10*3/uL Lymphocytes Absolute Auto 0.9 1.2-4.9 X10*3/u L Monocytes Absolute Auto 0.4 0.1-1.2 X10*3/uL Eosinophils Absolute Auto 0.2 0.0-0.4 X10*3/u L Basophils Absolute Auto 0.0 0.0-0.2 X10*3/uL NRBC Abs Auto 0.000 0.0-0.012 X10*3/uL Liver Panel Reviewed date:08/31/2023 12:36:40 PM Interpretation: Performing Lab:[facility], [address] [place] [phone] Notes/Report: Bilirubin Total 0.7 0.0-1.0 mg/dL Bilirubin Direct 0.3 0.0-0.5 mg/dL Aspartate Amino Transferase 28 5-31 U/L Alanine Aminotransferase 25 0-31 U/L Total Protein 6.6 6.5-8.0 g/dL Albumin Level 4.2 3.5-5.0 g/dL Alkaline Phosphatase 70 39-117 U/L Lipid Panel with Reflex Reviewed date:08/31/2023 12:36:13 PM Interpretation: Performing Lab:[facility], [address] [place] [phone] Notes/Report: Triglycerides 67 <150 mg/dL Desirable Triglyceride: less than 150 mg/dL Borderline High Triglyceride 150-199 mg/dL High Triglyceride: 200-499 mg/dL Very High Triglyceride: greater than or equal to 5OO mg/dL Cholesterol 167 <200 mg/dL Desirable Cholesterol: less than 200 mg/dL Borderline High Cholesterol: 200-239 mg/dL High Cholesterol: greater than 239 mg/dL LDL Cholesterol Calculated 78 <100 mg/dL Desirable LDL: less than 100 mg/dL Near Optimal/Above Optimal LDL: 110-129 mg/dL Borderline High LDL: 130-159 mg/dL High LDL: 160-189 mg/dL Very High LDL: greater than or equal to 190 mg/dL HDL Cholesterol 76 >40 mg/dL Desirable HDL: greater than 40 mg/dL Note: This HDL assay may give artificially low results in patients with liver disease. CT chest wo con Reviewed date:10/12/2023 01:11:48 PM Interpretation: Performing Lab: Notes/Report: [address] [address] [address] Scan Report Signed Patient: Maureen Foreman MR#: [id number] : 1940 Acct:[id number] Age/Sex: 83 / F ADM Date: 09/16/23 Loc: HO.CT Attending Dr: Alton Durham MD Ordering Physician: Alton Durham MD Date of Service: 09/16/23 Procedure(s): CT chest wo IV con Accession Number(s): [id number] cc: Alton Durham MD EXAMINATION: CT CHEST WITHOUT CONTRAST CLINICAL INFORMATION: Lung nodule. COMPARISON: CT chest 06/05/2014: Increased in the size of a right lobe pulmonary nodule measuring about 5.1 x 7.8 x 8.2 mm. Differential diagnosis would include neoplasm versus mucoid impaction. One might consider some aggressive pulmonary toilet and a round of antibiotic treatment with a repeat CT scan following this to see if this clears. If not, then biopsy could be considered. TECHNIQUE: Multidetector volumetric CT imaging of the chest was done. Axial MIP volume rendering provided. Sagittal and coronal reformatted images were obtained. This CT examination was performed using dose optimization techniques as appropriate, variously including the following: *Automated exposure control *Adjustment of mA and/or kV according to patient size (this includes techniques or standardized protocols for targeted exams where dose is matched to indication/reason for exam; i.e. extremities or head) *Use of iterative reconstruction technique DLP: 113 mGy-cm FINDINGS: LUNGS: Biapical pleural-parenchymal scarring is present. [id number] emphysematous changes are seen (for example 3 mm lingula 5:256). Flores images of most of these areas have been saved. There is bronchial thickening and multiple areas of mucoid impaction simulating pulmonary nodules (for example right middle lobe 5:204). In the anterior basal segment of the right lower lobe there is a pleural-based ovoid opacity which measures 1.4 x 0.7 x 0.6 cm (5:402 and flores images). In 2004, this was present and smaller measuring 1.0 x 0.7 x 0.6 cm by my measurements (prior 4:26). Given the slow progression of disease in just under 20 years, the benign nature of this is reinforced likely secondary to mucoid impaction. There is an additional new similar-appearing opacity next to this measuring 1.2 x 0.6 x 0.3 cm (5:403 and flores images) which is also likely due to mucoid impaction as well. MEDIASTINUM: The mediastinum is normal. CORONARY ARTERY CALCIFICATION: Mild. PLEURA: There is no pleural effusion. No pleural mass or thickening. AXILLA: No lymphadenopathy. UPPER ABDOMEN: Hepatic and splenic granulomas are present. OSSEOUS STRUCTURES: Degenerative changes are present throughout the spine. CT/CT chest wo IV con IMPRESSION: 1. There is a 1.4 cm pleural-based opacity in the right lower lobe which has increased in size since 2004. Given the slow progression of disease in just under 20 years, the benign nature of this is reinforced, likely secondary to mucoid impaction. 2. There is an additional new opacity in the right lower lobe which is also likely due to mucoid impaction. 3. A finding concerning for malignancy is not present. Fleischner guidelines were followed. Dictated By: Vinny Arango MD Signed By: <Electronically signed by Vinny Arango MD in OV> 10/12/23 0935 DD/ 0837 TD/TT: University Relations Director: JOY Complete Blood Count Auto Di ff Reviewed date:09/20/2023 05:22:25 PM Interpretation: Performing Lab:[facility], [address] [place] [phone] Notes/Report: White Blood Count 3.9 4.8-10.8 X10*3/uL Red Blood Count 4.79 4.20-5.50 X10*6/uL Hemoglobin 14.8 12.0-16.0 g/dl Hematocrit 43.8 37.0-47.0 % Mean Corpuscular Volume 91.4 80.0-98.0 fL Mean Corpuscular Hemoglobin 30.9 27.0-33.0 pg Mean Corpuscular HGB Conc 33.8 31.0-35.0 g/dl Red Cell Distribution Width 13.5 11.0-16.0 % Platelet Count 155 160-400 X10*3/uL Mean Platelet Volume 10.3 9.4-12.3 fL Neutrophils Percent Auto 65.2 45-73 % Imm Gran Pct Auto 0.3 0.0-0.4 % Lymphocytes Percent Auto 18.6 20-40 % Monocytes Percent Auto 12.0 2-11 % Eosinophils Percent Auto 2.6 0-4 % Basophils Percent Auto 1.3 0-2 % NRBC Pct Auto 0.0 0.0-0.2 /100WBC Neutrophils Absolute Auto 2.6 2.0-8.3 x10*3/u L Imm Gran Abs Auto 0.01 0.00-0.03 X10*3/uL Lymphocytes Absolute Auto 0.7 1.2-4.9 X10*3/u L Monocytes Absolute Auto 0.5 0.1-1.2 X10*3/uL Eosinophils Absolute Auto 0.1 0.0-0.4 X10*3/u L Basophils Absolute Auto 0.1 0.0-0.2 X10*3/uL NRBC Abs Auto 0.000 0.0-0.012 X10*3/uL Liver Panel Reviewed date:09/18/2023 06:27:11 PM Interpretation: Performing Lab:[facility], [address] [place] [phone] Notes/Report: Bilirubin Total 0.8 0.0-1.0 mg/dL Bilirubin Direct 0.3 0.0-0.5 mg/dL Aspartate Amino Transferase 31 5-31 U/L Alanine Aminotransferase 30 0-31 U/L Total Protein 7.0 6.5-8.0 g/dL Albumin Level 4.5 3.5-5.0 g/dL Alkaline Phosphatase 84 39-117 U/L Basic Metabolic Panel Reviewed date:09/18/2023 06:29:52 PM Interpretation: Performing Lab:[facility], [address] [place] [phone] Notes/Report: Sodium 145 135-145 mmol/L Potassium 3.0 3.3-5.1 mmol/L Chloride 106 96-108 mmol/L Carbon Dioxide 28 22-29 mmol/L Anion Gap 14 12-20 Blood Urea Nitrogen 17 9-16 mg/dL Creatinine 0.72 0.5-1.4 mg/dL Creatinine Clr Calc Pharmacy 51.6 Provided height and weight: 172.72 cm, 56.245 kg. eGFR (calculated from the MDRD study equation) and eCrCl (calculated from the Cockcroft-Gault equation) are based on different parameters and may not yield comparable results. If eCrCl result is absurd, please check patient's height/weight. Estimated Glomerular Filt Rate > 60 NOTE: For -Bhutanese individuals, multiply the result by 1.210. Chronic Kidney Disease: Estimated GFR < 60 mL/min/1.73m2 Severe Kidney Disease: Estimated GFR < 15 mL/min/1.73m2 Glucose Random 103 60-115 mg/dL Calcium 10.3 8.4-10.2 mg/dL Lipase Reviewed date:09/18/2023 06:27:01 PM Interpretation: Performing Lab:[facility], [address] [place] [phone] Notes/Report: Lipase 22 8-78 U/L Potassium Reviewed date:09/23/2023 01:05:42 PM Interpretation: Performing Lab:[facility], [address] [place] [phone] Notes/Report: Potassium 3.0 3.3-5.1 mmol/L Slight Hemoly sis Pathology Reviewed date:09/24/2023 10:02:51 AM Interpretation: Performing Lab:[facility], [address] [place] [phone] Notes/Report: Complete Blood Count Auto Di ff Reviewed date:10/05/2023 10:02:29 AM Interpretation: Performing Lab:[facility], [address] [place] [phone] Notes/Report: White Blood Count 3.1 4.8-10.8 X10*3/uL Red Blood Count 4.78 4.20-5.50 X10*6/uL Hemoglobin 15.1 12.0-16.0 g/dl Hematocrit 44.0 37.0-47.0 % Mean Corpuscular Volume 92.1 80.0-98.0 fL Mean Corpuscular Hemoglobin 31.6 27.0-33.0 pg Mean Corpuscular HGB Conc 34.3 31.0-35.0 g/dl Red Cell Distribution Width 13.6 11.0-16.0 % Platelet Count 121 160-400 X10*3/uL Mean Platelet Volume 11.4 9.4-12.3 fL Neutrophils Percent Auto 65.3 45-73 % Imm Gran Pct Auto 0.3 0.0-0.4 % Lymphocytes Percent Auto 19.1 20-40 % Monocytes Percent Auto 12.0 2-11 % Eosinophils Percent Auto 2.3 0-4 % Basophils Percent Auto 1.0 0-2 % NRBC Pct Auto 0.0 0.0-0.2 /100WBC Neutrophils Absolute Auto 2.0 2.0-8.3 x10*3/u L Imm Gran Abs Auto 0.01 0.00-0.03 X10*3/uL Lymphocytes Absolute Auto 0.6 1.2-4.9 X10*3/u L Monocytes Absolute Auto 0.4 0.1-1.2 X10*3/uL Eosinophils Absolute Auto 0.1 0.0-0.4 X10*3/u L Basophils Absolute Auto 0.0 0.0-0.2 X10*3/uL NRBC Abs Auto 0.000 0.0-0.012 X10*3/uL White Blood Count 3.1 4.8-10.8 X10*3/uL Red Blood Count 4.78 4.20-5.50 X10*6/uL Hemoglobin 15.1 12.0-16.0 g/dl Hematocrit 44.0 37.0-47.0 % Mean Corpuscular Volume 92.1 80.0-98.0 fL Mean Corpuscular Hemoglobin 31.6 27.0-33.0 pg Mean Corpuscular HGB Conc 34.3 31.0-35.0 g/dl Red Cell Distribution Width 13.6 11.0-16.0 % Platelet Count 121 160-400 X10*3/uL Mean Platelet Volume 11.4 9.4-12.3 fL Neutrophils Percent Auto 65.3 45-73 % Imm Gran Pct Auto 0.3 0.0-0.4 % Lymphocytes Percent Auto 19.1 20-40 % Monocytes Percent Auto 12.0 2-11 % Eosinophils Percent Auto 2.3 0-4 % Basophils Percent Auto 1.0 0-2 % NRBC Pct Auto 0.0 0.0-0.2 /100WBC Neutrophils Absolute Auto 2.0 2.0-8.3 x10*3/u L Imm Gran Abs Auto 0.01 0.00-0.03 X10*3/uL Lymphocytes Absolute Auto 0.6 1.2-4.9 X10*3/u L Monocytes Absolute Auto 0.4 0.1-1.2 X10*3/uL Eosinophils Absolute Auto 0.1 0.0-0.4 X10*3/u L Basophils Absolute Auto 0.0 0.0-0.2 X10*3/uL NRBC Abs Auto 0.000 0.0-0.012 X10*3/uL Liver Panel Reviewed date:10/05/2023 09:55:46 AM Interpretation: Performing Lab:[facility], [address] [place] [phone] Notes/Report: Bilirubin Total 0.8 0.0-1.0 mg/dL Bilirubin Direct 0.3 0.0-0.5 mg/dL Aspartate Amino Transferase 34 5-31 U/L Alanine Aminotransferase 31 0-31 U/L Total Protein 7.1 6.5-8.0 g/dL Albumin Level 4.5 3.5-5.0 g/dL Alkaline Phosphatase 77 39-117 U/L Basic Metabolic Panel Reviewed date:10/07/2023 12:46:16 PM Interpretation: Performing Lab:[facility], [address] [place] [phone] Notes/Report: Sodium 147 135-145 mmol/L Potassium 2.9 3.3-5.1 mmol/L Critical value for test(s): pots Results called to and read back by:rigo Person calling: [email or web address] Date: 10/05/23 Time:0940 Chloride 104 96-108 mmol/L Carbon Dioxide 28 22-29 mmol/L Anion Gap 18 12-20 Blood Urea Nitrogen 14 9-16 mg/dL Creatinine 0.81 0.5-1.4 mg/dL Creatinine Clr Calc Pharmacy 45.0 Provided height and weight: 172.72 cm, 55.1 kg. eGFR (calculated from the MDRD study equation) and eCrCl (calculated from the Cockcroft-Gault equation) are based on different parameters and may not yield comparable results. If eCrCl result is absurd, please check patient's height/weight. Estimated Glomerular Filt Rate > 60 NOTE: For -Bhutanese individuals, multiply the result by 1.210. Chronic Kidney Disease: Estimated GFR < 60 mL/min/1.73m2 Severe Kidney Disease: Estimated GFR < 15 mL/min/1.73m2 Glucose Random 92 60-115 mg/dL Calcium 10.8 8.4-10.2 mg/dL Magnesium Reviewed date:10/05/2023 09:55:24 AM Interpretation: Performing Lab:[facility], [address] [place] [phone] Notes/Report: Magnesium 1.9 1.6-2.6 mg/dL SLIDE REVIEW Reviewed date:10/05/2023 11:59:08 AM Interpretation: Performing Lab:[facility], [address] [place] [phone] Notes/Report: SLIDE REVIEW VERIFIED XR chest 2V Reviewed date:10/05/2023 09:57:27 AM Interpretation: Performing Lab: Notes/Report: [address] [address] XRay Report Signed Patient: Maureen Foreman MR#: [id number] : 1940 Acct:[id number] Age/Sex: 83 / F ADM Date: 10/05/23 Loc: HO.ED Attending Dr: Ordering Physician: Ekaterina Leonardo DO Date of Service: 10/05/23 Procedure(s): XR chest 2V Accession Number(s): [id number] cc: Alton Durham MD; Ekaterina Leonardo DO EXAMINATION: XR CHEST CLINICAL INFORMATION: Cough. Recent surgery. COMPARISON: 2 views of the chest dated 04/21/2022. TECHNIQUE: 2 views of the chest were obtained. FINDINGS: EKG leads overlie the chest. The cardiomediastinal silhouette is within normal limits in size. Lungs bilaterally are symmetrically hyperinflated and hyperlucent, consistent with emphysematous obstructive lung disease. There is slight indistinctness of the CP angles, likely related to pleural thickening or scarring. No significant pleural effusion noted. No focal consolidation or pneumothorax is seen. Diffuse osteopenia with mild dorsal kyphosis and mild convex left thoracolumbar scoliosis. 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 * No focal pneumonia. Dictated By: Kamilla Barber MD Signed By: <Electronically signed by Kamilla Barber MD in OV> 10/05/2325 DD/ 0853 TD/TT: University Relations Director: JV Potassium Reviewed date:10/14/2023 06:10:12 AM Interpretation: Performing Lab:[facility], [address] [place] [phone] Notes/Report: Potassium 3.1 3.3-5.1 mmol/L FL barium swallow Reviewed date:10/22/2023 12:35:07 PM Interpretation: Performing Lab: Notes/Report: [address] [address] Fluoroscopy Report Signed Patient: Maureen Foreman MR#: [id number] : 1940 Acct:[id number] Age/Sex: 83 / F ADM Date: 10/12/23 Loc: HO.XRAY Attending Dr: Julee Asher [facility] Ordering Physician: Julee Asher [facility] Date of Service: 10/12/23 Procedure(s): FL barium swallow Accession Number(s): [id number] cc: Alton Durham MD; Julee Asher [facility] EXAMINATION: XR FLUOROSCOPY UPPER GI WITH AIR CLINICAL INFORMATION: Dysphagia. Reflux COMPARISON: Upper GI July 2023 TECHNIQUE: Fluoroscopic air contrast upper GI examination was performed utilizing standard techniques with thin and thick barium and effervescent granules. Numerous spot images were obtained. FINDINGS: Moderate spondylosis of the cervical spine present most notably involving C4-C7. A ventral bridging osteophyte at C5-C6 again minimally indents upon the most superior esophagus. Lateral cine images of the oropharynx and hypopharynx demonstrate normal swallow mechanism with normal epiglottic inversion and soft palate elevation. No tracheal penetration, glottic or subglottic aspiration identified. No nasopharyngeal reflux present. Hypopharyngeal structures appear normal without evidence of mass or diverticulum. 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 Dual and single contrast images of the esophagus demonstrate a normal caliber and contour. The upper and mid esophageal mucosa still has a granular appearance with multiple foci of contrast pooling suggesting superficial erosions. No evidence of stricture, mass identified. There is persistent to and fro motion of the barium column with nonpropulsive tertiary contractions noted throughout the esophagus. The GE junction appears unremarkable with no narrowing compared to prior examination. No evidence of hiatus hernia identified. No significant gastroesophageal reflux was seen during the course of the examination and on reflux views. Dual contrast and single contrast images of the stomach demonstrated a normal contour. The gastric mucosal folds have a thickened appearance representing gastritis. There are multiple tiny areas of contrast pooling suggestive of small superficial ulcerations. No masses are seen. Contrast freely passed into the gastric antrum and duodenal bulb without delay. Single and air-contrast images of the duodenal bulb demonstrate no abnormality. The duodenal sweep has a normal appearance, course, and mucosal fold appearance. The imaged proximal jejunum has a normal fold pattern and caliber. FLUOROSCOPY TIME: 3 minutes 49 seconds Number of Spot Images: 9 Number of Cine: 12 DOSE AREA PRODUCT: 1000 uGy-m2 (microgray-meter squared) FL/FL barium swallow IMPRESSION: 1. Mild to moderate cricopharyngeal achalasia 2. The upper and mid esophageal mucosa continues to have a granular appearance with multiple foci of contrast pooling suggestive of erosive esophagitis. 3. Persistent esophageal dysmotility. 4. Interval improvement of the GE junction without evidence of narrowing. 5. Thickened appearance of the gastric rugal folds with multiple tiny foci of contrast pooling suggesting erosive gastritis. This procedure was performed by Frank Zamora PA-C, and supervised by Dr. Huffman Dictated By: Frank Zamora Signed By: <Electronically signed by Frank Zamora in OV> 10/21/231753 <Electronically signed by Roberto Huffman MD in OV> 10/21/231756 DD/ 7 TD/TT: University Relations Director: NM gastric emptying study Reviewed date:10/18/2023 05:04:10 PM Interpretation: Performing Lab: Notes/Report: [place] [address] Nuclear Medicine Report Signed Patient: Maureen Foreman MR#: [id number] : 1940 Acct:[id number] Age/Sex: 83 / F ADM Date: 10/18/23 Loc: [facility] Attending Dr: Julee ANAYA Ordering Physician: Julee Asher Date of Service: 10/18/23 Procedure(s): NM gastric emptying study Accession Number(s): [id number] cc: Alton Durham MD; Julee Asher EXAMINATION: [place] RADIONUCLIDE SOLID FOOD GASTRIC EMPTYING 4-HOUR STUDY CLINICAL INFORMATION: Early satiety. COMPARISON: None TECHNIQUE: A standard meal consisting of 4 oz of Egg Beaters brand tagged with 850 microcuries Tc-99m Sulfur Colloid, 8 oz water and 1 1/4 slices of toast with jelly was administered orally to the patient. Images were obtained using a dual head gamma camera in the anterior and posterior projections over of the stomach immediately post ingestion and at hourly intervals up to 4 hours post ingestion. The anterior and posterior counts at each time interval were averaged using the geometric mean and expressed as percentage of the immediate post ingestion counts. FINDINGS: There is good visualization of activity in the stomach immediately post ingestion. As the study progresses, there is good clearance of activity from the stomach and visualization of progressively increasing small bowel activity. By the end of the study, there is almost no retention noted in the stomach. Retention in the stomach at each time interval was: 1 hour 57% (normal 37%-90%) 2 hours 45% (normal 30%-60%) 3 hours 28% 4 hours 5% (normal 0%-10%) NM/NM gastric emptying study IMPRESSION: Normal 4-hour solid food gastric emptying study. For solid meal, rapid gastric emptying is less than 30% at 60 minutes. Delayed gastric emptying criteria is more than 60% remaining at 120 minutes or more than 10% at 240 minutes. The 4-hour value is the best discriminator of a normal or abnormal result). Gastric emptying study grading per JNMT Consensus Recommendations in 2008 (https://tech.snmjournals.org/content/36//44) Grade 1 (mild retention): 11-20% at 4h Grade 2 (moderate retention): 21-35% at 4h Grade 3 (severe retention): 36-50% at 4h Grade 4 (very severe retention): >50% retention at 4h Dictated By: Mary Wiggins MD Signed By: <Electronically signed by Mary Wiggins MD in OV> 10/18/23 1440 DD/ 1215 TD/TT: University Relations Director: KRISTIE Potassium Reviewed date:10/21/2023 05:06:20 PM Interpretation: Performing Lab:[address] [phone] Notes/Report: Potassium 2.8 3.3-5.1 mmol/L Critical value for test(s): POTS Results called to and read back by: YOSELYN Cotton Person calling:SHAMA Date: 10/21/23 Time: 1124 Potassium Reviewed date:10/26/2023 08:42:40 AM Interpretation: Performing Lab:[address] [phone] Notes/Report: Potassium 3.4 3.3-5.1 mmol/L Potassium Reviewed date:11/01/2023 12:24:52 PM Interpretation: Performing Lab:[address] [phone] Notes/Report: Potassium 3.7 3.3-5.1 mmol/L Potassium Reviewed date:11/11/2023 04:20:21 PM Interpretation: Performing Lab:[facility], [address] [place] [phone] Notes/Report: Potassium 4.4 3.3-5.1 mmol/L Potassium Reviewed date:11/25/2023 12:21:33 PM Interpretation: Performing Lab:[facility], [address] [place] [phone] Notes/Report: Potassium 3.9 3.3-5.1 mmol/L XR KUB Reviewed date:01/09/2024 12:30:30 PM Interpretation: Performing Lab: Notes/Report: [address] [address] XRay Report Signed Patient: Maureen Foreman MR#: [id number] : 1940 Acct:[id number] Age/Sex: 83 / F ADM Date: 12/08/23 Loc: [facility] Attending Dr: Som Mckeon MD Ordering Physician: Som Mckeon MD Date of Service: 12/08/23 Procedure(s): XR KUB Accession Number(s): [id number] cc: Som Mckeon MD; Alton Durham MD EXAMINATION: XR ABDOMEN KUB CLINICAL INDICATION: Calculus of kidney. COMPARISON: Renal ultrasound 06/28/2023. TECHNIQUE: AP view of the abdomen. FINDINGS: Marked degenerative changes are present in the spine. There is no evidence of bowel obstruction. No definitive calcifications can be seen overlying the renal fossa or bladder. Dense contrasts are present in diverticula in the sigmoid and a single phlebolith is noted in the left hemipelvis. XR/XR KUB IMPRESSION: No renal calculi are seen. Degenerative changes are present in the spine. Electronically signed by: Vinny Arango MD 01/06/2024 09:58 PM EDT Dictated By: Vinny Arango MD Signed By: <Electronically signed by Vinny Arango MD in OV> 01/06/24 2158 DD/ 1232 TD/TT: 12/08/23 1240 University Relations Director: JOY Potassium Reviewed date:12/13/2023 12:39:37 PM Interpretation: Performing Lab:[facility], [address] [place] [phone] Notes/Report: Potassium 4.0 3.3-5.1 mmol/L Potassium Reviewed date:01/14/2024 09:08:52 AM Interpretation: Performing Lab:[facility], [address] [place] [phone] Notes/Report: Potassium 3.6 3.3-5.1 mmol/L Slight Hemoly sis Potassium Reviewed date:02/03/2024 12:32:20 PM Interpretation: Performing Lab:[facility], [address] [place] [phone] Notes/Report: Potassium 4.2 3.3-5.1 mmol/L Slight Hemoly sis Complete Blood Count Auto Di ff Reviewed date:03/14/2024 09:33:06 AM Interpretation:see back 03-14-2024 Performing Lab:[facility], [address] [place] [phone] Notes/Report: White Blood Count 2.5 4.8-10.8 X10*3/uL [...] NRBC Abs Auto 0.000 0.0-0.012 X10*3/uL Comprehensive [place]. Panel Fa Reviewed date:03/07/2024 04:52:00 PM Interpretation: Performing Lab:[facility], [address] [place] [phone] Notes/Report: Sodium 141 135-145 mmol/L Potassium 3.9 3.3-5.1 mmol/L Slight Hemolysis.Interpret result with caution. Chloride 104 96-108 mmol/L Carbon Dioxide 27 22-29 mmol/L Anion Gap 14 12-20 Blood Urea Nitrogen 23 9-16 mg/dL Creatinine 0.64 0.5-1.4 mg/dL Estimated Glomerular Filt Rate > 60 NOTE: For -[place]hut[place] individuals, multiply the result by 1.210. Chronic [...] Panel Reviewed date:03/07/2024 04:52:17 PM Interpretation: Performing Lab:[facility], [address] [place] [phone] Notes/Report: Triglycerides 63 <150 mg/dL Desirable Triglyceride: [...] t Reviewed date:03/07/2024 04:51:31 PM Interpretation: Performing Lab:[facility], [address] [place] [phone] Notes/Report: Urine, Clean Catch Color Urine Yellow Appearance Urine Clear PH 6.5 5.0-9.0 Glucose Urine UA Negative Negative mg/dL Urine Blood Negative Negative Specific [place] - Urine 1.020 1.005-1.025 Urine Protein 30 (1+) Neg-Trace mg/dL Urine Ketones Negative Negative mg/dL Nitrite Urine Negative Negative Leukocyte Esterase Urine Trace Negative RBC Urine 0-2 0-2 /HPF WBC Urine 0-5 0-5 /HPF Squamous Epithelial Cell Urine 0-2 0-2 /HPF Bacteria Urine None Seen None Seen Hyaline Casts Urine 0-2 0-2 /LPF Occult Blood, Stool, Guaiac Reviewed date:03/14/2024 11:14:45 AM Interpretation:Negative Performing Lab: Notes/Report: Negative Occult Blood, Stool, Guaiac Neg Complete Blood Count Auto Di ff Reviewed date:04/04/2024 12:44:09 PM Interpretation: Performing Lab:[facility], [address] [place] [phone] Notes/Report: White Blood Count 2.7 4.8-10.8 X10*3/uL [...] Potassium Reviewed date:04/04/2024 12:47:19 PM Interpretation: Performing Lab:[facility], [address] [place] [phone] Notes/Report: Potassium 3.9 3.3-5.1 mmol/L REASON FOR REFERRAL Reason belching Diagnosis 1 Belching (R14.2) Referral Organization Alton Durham MD Referring Provider First Name Alton Referring Provider Last Name Marva Referring Provider Speciality Internal M edicine Referred Provider Heber Sweeney Referred Provider Specialty Gastroentero logy General Notes Gabriella Parikh 10:08:04 AM EST > info faxed. Spoke with patient she will be calling their office to set up her appt. Gave her their phone number to call. Kati Annette 09/17/2023 03:20:50 PM EDT > patient went to [facility] instead sooner appt Referral Priority Routine Referral Appointment Date 09/16/2023 Reason REFLUX GASTRITIS Diagnosis 1 Reflux gastritis (K2 9.60) Referral Organization Alton Durham MD Referring Provider First Name Alton Referring Provider Last Name Marva Referring Provider Speciality Internal M edicine Referred Provider NERI DELGADO Referred Provider Specialty Gastroentero logy Referral Priority Routine Referral Appointment Date 07/14/2023 MEDICATIONS Medication SIG (Take, Route, Frequency, Duration) Notes Start Date End Date Status Rosuvastatin Calcium 40 MG take 1 tablet by mouth every day Orally Once a day Active Potassium Chloride 20 MEQ TAKE 1 PACKET AND MIX IN LIQUID AND DRINK BY MOUTH DAILY DIRECTED Orally QOD Active NexIUM 20 MG 1 capsule Orally twi ce a day Active Valtrex 1 GM 1 tablet Orally 3 ti mes per day for 7 days 10/23/2016 Not-Taking Protonix 40 MG 1 TABLET ONCE A DAY ORALLY 90 DAYS Not-Taking Multi Vitamin/Minerals as directed Orally Active ZyrTEC 10 MG 1 tablet Orally Once a day for 30 day(s) Not-Taking Ondansetron HCl 4 MG 1 tablet Orally Onc e a day for 20 days 05/07/2023 Not-Taking Tylenol Extra Strength 500 MG 1 tablet as needed Orally every 6 hrs Not-Taking Famotidine 40 MG 1 tablet at bedtime Orally Once a day for 30 day(s) Not-Taking IMMUNIZATIONS Vaccine Route Administration Date Status Comme nts Shingles IM Intramuscular 12/16/2010 Administered Flu Vaccine IM Intramuscular 04/07/2011 Administered Flu Vaccine IM Intramuscular 01/26/2012 Administered [facility] Flu Vaccine Unknown 02/11/2012 Administered Flu Vaccine IM Intramuscular 02/22/2013 Administered [facility] Tetanus Unknown 01/29/2006 Administered Prevnar 13 IM Intramuscular 04/10/2013 Administered zzz Unknown 04/10/2013 Administered Flu Vaccine Unknown 02/14/2014 Administered [facility] TDaP Unknown 03/21/2014 Administered [facility] Fluarix Quadrivalent IM Intramuscular 02/26/2015 Administered [facility] Flu Vaccine Unknown 02/15/2016 Administered [facility] Fluarix Quadrivalent Unknown 02/17/2017 Administered [facility] Flu Vaccine IM Intramuscular 01/21/2018 Administered pt wa s given the vaccine at [facility] in [place] on [address] Fluarix Quadrivalent Unknown 02/03/2019 Administered [facility] PPSV23 (Pnemovax) IM Intramuscular 02/10/2019 Administered Influenza High Dose Unknown 01/23/2020 Administered R[facility] lamb zzz Unknown 02/10/2019 Administered zInfluenza Unknown 01/23/2020 Administered SARS-COV-2 Moderna Unknown 05/24/2020 Administered SARS-COV-2 Moderna Unknown 06/18/2020 Administered Influenza High Dose Unknown 02/12/2021 Administered [facility] SARS-COV-2 Moderna Unknown 03/18/2021 Administered [facility] Influenza High Dose Unknown 01/23/2022 Administered SOCIAL HISTORY Tobacco Use: Social History Observation [...] ast year? No Points 0 Interpretation Negative PROBLEMS Problem Type ICD Code Onset Dates Problem Status W/U Status Risk SNOMED Code Notes Problem Thyroid nodule (E04.1) Active confirmed 459653120 Problem Neutropenia (D70.9) Active confirmed 16 3617716 Problem Lung nodule seen on imaging study (R91.1) Active confirmed 592577032 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 Non-toxic singl e thyroid nodule (121968991) Problem 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) Active confirmed 5213923 Problem Lumbar disc disease (M51.9) Active confirmed Disorder of lumbar disc (784215914) Problem Essential hypertension (I10) Active confirmed 30434825 Problem Lung nodule (R91.1) Active confirmed 30 9705296 Problem Esophageal dysmotility (K22.4) Active confirmed 027837431 Problem History of kidney stones (Z87.442) Active confirmed 299888089 Problem Cervical disc disease (M50.90) Active confirmed 685037636 Problem Sciatica of left side (M54.32) Active confirmed 50008980 Problem Neutropenia, unspecified type (D70.9) Active confirmed 387130573 Problem 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) Active confirmed 76605129 Problem Sciatica of right side (M54.31) Active confirmed 95789043 Problem Elevated cholesterol (E78.00) Active confirmed 17651152 Problem Esophageal spasm (K22.4) Active confirmed 354514666 Problem Adnexal cyst (N94.9) Active confirmed 77099831976080 Problem Multinodular goiter (E04.2) Active confirmed 877675185 Problem Achalasia (K22.0) Active confirmed 4556 4002 Problem Paresthesia (R20.2) Active confirmed 91 399595 Problem Atherosclerosis of both carotid arteries (I65.23) Active confirmed 316484075931647 Problem Abnormal mammogram of both breasts (R92.8) Active confirmed 267341373 Problem Esophageal dysfunction (K22.4) Active confirmed 418006987 Problem Tingling of right upper extremity (R20.2) Active confirmed 770563054 Problem Gastroesophageal reflux disease with esophagitis without hemorrhage (K21.00) Active confirmed 647958660 Problem Porokeratosis (Q82.8) Active confirmed 391469044 Problem 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 906621916 VITAL SIGNS Blood pressure diastolic 64 mm Hg 03/14/2024 antonio ght is down 3 pounds since 12-13-23 Height 68 in 03/14/2024 weight is down 3 pounds since 12-13-23 Blood pressure systolic 122 mm Hg 03/14/2024 weig ht is down 3 pounds since 12-13-23 Weight 112 lbs 03/14/2024 weight is down 3 pounds since 12-13-23 BMI 17.03 kg/m2 03/14/2024 weight is down 3 pounds since 12-13-23 Encounters Encounter Location Date Provider Diagnosis Alton Durham MD [address] [place], [place] [id number] 12/13/2023 Alton Durham Hypokalemia E87.6 an d Achalasia K22.0 Alton Durham MD [address] [place], [place] [id number] 03/14/2024 Alton Durham Neutropenia D70.9 ; Elevated cholesterol E78.00 ; Thyroid nodule E04.1 ; Esophageal dysfunction K22.4 ; Hypokalemia E87.6 ; Essential hypertension I10 ; Colon cancer screening Z12.11 and Depression screening Z13.31 Alton Durham MD [address] [place] [id number] 08/31/2023 Alton Durham Neutropenia D70.9 an d Elevated cholesterol E78.00 Alton Durham MD [address] [place] [id number] 03/07/2024 Alton Durham Blood tests for rout ine general physical examination Z00.00 ; Neutropenia D70.9 ; Elevated cholesterol E78.00 and Essential hypertension I10 Alton Durham MD [address] [place] [id number] 09/28/2023 Alton Durham Hypokalemia E87.6 Alton Durham MD [address] [place] [id number] 10/21/2023 Alton Durham Hypokalemia E87.6 Alton Durham MD [address] [place] [id number] 10/25/2023 Alton Durham Hypokalemia E87.6 Alton Durham MD [address] [place] [id number] 11/01/2023 Alton Durham Hypokalemia E87.6 Alton Durham MD [address] [place] [address] [id number] 11/25/2023 Alton Durham Hypokalemia E87.6 Alton Durham MD [address] [place] [id number] 01/13/2024 Alton Durham Hypokalemia E87.6 Alton Durham MD [address] [place] [address] [id number] 02/03/2024 Alton Durham Hx of hypokalemia Z86.39 Alton Durham MD [address] [place] [address] [id number] 04/04/2024 Alton Durham Neutropenia D70.9 Alton Durham MD [address] [place] [id number] 09/09/2023 Alton Durham Achalasia K22.0 and Atherosclerosis of both carotid arteries I65.23 Alton Durham MD [address] [place] [address] [id number] 05/07/2023 Alton Durham Belching R14.2 Alton Durham MD [address] [place] [address] [id number] 06/11/2023 Alton Durham Nausea R11.0 Alton Durham MD [address] [place] [id number] 07/02/2023 Alton Durham Nausea R11.0 and Esophageal dysfunction K22.4 Alton Durham MD [address] [place] [address] [id number] 07/23/2023 Alton Durham Achalasia K22.0 Alton Durham MD [address] [place] [address] [id number] 10/11/2023 Alton Durham Esophageal dysmotili ty K22.4 and Achalasia K22.0 Alton Durham MD [address] [place] [address] [id number] 11/11/2023 Alton Durham Hypokalemia E87.6 ; Esophageal dysmotility K22.4 ; Achalasia K22.0 and Hypotension due to drugs I95.2 Alton Durham MD [address] [place] [address] [id number] 04/27/2023 Alton Durham MD [address] [place] [address] [id number] 05/18/2023 Alton Durham MD [address] [place] [address] [id number] 06/08/2023 Alton Durham MD [address] [place] [address] [id number] 06/08/2023 Alton Durham MD [address] [place] [address] [id number] 06/24/2023 Alton Durham Nontoxic single thyr oid nodule E04.1 Alton Durham MD [address] [place] [address] [id number] 06/28/2023 Alton Durham MD [address] [place] [address] [id number] 06/29/2023 Alton Durham MD [address] [place] [address] [id number] 07/02/2023 Alton Durham MD [address] [place] [address] [id number] 07/15/2023 Alton Durham Thyroid nodule E04.1 Alton Durham MD [address] [place] [address] [id number] 09/03/2023 Alton Durham MD [address] [place] [address] [id number] 09/20/2023 Alton Durham MD [address] [place] [address] [id number] 10/21/2023 Alton Durham MD [address] [place] [address] [id number] 10/21/2023 Alton Durham MD [address] [place] [address] [id number] 10/22/2023 Alton Durham MD [address] [place] [address] [id number] 10/22/2023 Alton Durham MD [address] [place] [address] [id number] 12/27/2023 Alton Durham MD [address] [place] [address] [id number] 01/25/2024 Alton Durham ASSESSMENTS Encounter Date Diagnosis Assessment Notes Treatment Notes Treatment Clinical Notes 12/13/2023 Hypokalemia (ICD-10 - E87.6) needs monthly potassium, will continue to monitor 12/13/2023 Achalasia (ICD-10 - K22.0) doing a little better. weight seems to be stabilizing, will cntinue current regment and will continue to monitor 03/14/2024 Neutropenia (ICD-10 - D70.9) stable, pending future labs, will continue to monitor 03/14/2024 Elevated cholesterol (ICD-10 - E78.00) has elevated ldl but lft's are up a little. will continue current regiment and will contiue to monitor 08/31/2023 Neutropenia (ICD-10 - D70.9) 08/31/2023 Elevated cholesterol (ICD-10 - E78.00) 03/07/2024 Neutropenia (ICD-10 - D70.9) 03/07/2024 Blood tests for routine general physical examination (ICD-10 - Z00.00) 10/21/2023 Hypokalemia (ICD-10 - E87.6) 10/25/2023 Hypokalemia (ICD-10 - E87.6) 11/01/2023 Hypokalemia (ICD-10 - E87.6) 11/25/2023 Hypokalemia (ICD-10 - E87.6) 01/13/2024 Hypokalemia (ICD-10 - E87.6) 02/03/2024 Hx of hypokalemia (ICD-10 - Z86.39) 04/04/2024 Neutropenia (ICD-10 - D70.9) 09/09/2023 Achalasia (ICD-10 - K22.0) needs to see specialist..will speak with her gi doctor in 2 weeks 09/09/2023 Atherosclerosis of both carotid arteries (ICD-10 - I65.23) choesterol and lft good, will continue current regiment 05/07/2023 Belching (ICD-10 - R14.2) to restart her omeprazole Patient/Caregiver verbalizes understanding of medications side effects, interactions and warnings. 06/11/2023 Nausea (ICD-10 - R11.0) will be booked at [facility], pending diagnostic testing 07/02/2023 Nausea (ICD-10 - R11.0) Total time spent on the date of the encounter is 35 minutes including both face to face time spent and time spent reviewing documentation, and counseling the patient. 07/02/2023 Esophageal dysfunction (ICD-10 - K22.4) try to get ugi sooner. is going to see gi next week. her symptoms come and go so it seems unlilky that it is a cancer and i think is more like esophageal dysfunction will need the ugi. she say an er doctor who put her on a soft diet although she was ableto eat everything.have told her to eat whatever doesn't bother her 07/23/2023 Achalasia (ICD-10 - K22.0) will try eating her regular diet. if she can't tolerate it will try to find where surgery is done 10/11/2023 Esophageal dysmotility (ICD-10 - K22.4) had esophageal dilitation. not helping. 10/11/2023 Achalasia (ICD-10 - K22.0) going for stomach motility study./ getting ugi tomorrow. pending diagnostic testing 11/11/2023 Hypokalemia (ICD-10 - E87.6) 11/11/2023 Esophageal dysmotility (ICD-10 - K22.4) is still present of ugi 07/15/2023 Thyroid nodule (ICD-10 - E04.1) ordr made and put into the future order folder for 03/14/2024 Thyroid nodule (ICD-10 - E04.1) will repeat us next year/ Thyroid order printed and put in future folder 03/07/2024 Elevated cholesterol (ICD-10 - E78.00) 09/28/2023 Hypokalemia (ICD-10 - E87.6) 11/11/2023 Achalasia (ICD-10 - K22.0) 06/24/2023 Nontoxic single thyroid nodule (ICD-10 - E04.1) 03/14/2024 Esophageal dysfunction (ICD-10 - K22.4) on an incredibly strick diet, will continue current regiment 03/07/2024 Essential hypertension (ICD-10 - I10) 11/11/2023 Hypotension due to 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 - I95.2) will hold the lisinopril 03/14/2024 Hypokalemia (ICD-10 - E87.6) stable, will continue to monitor 03/14/2024 Essential hypertension (ICD-10 - I10) doing well, will contiue current regiment 03/14/2024 Colon cancer screening (ICD-10 - Z12.11) guaiac negative 03/14/2024 Depression screening (ICD-10 - Z13.31) negative screen PLAN OF TREATMENT Pending Test Test Name Order Date Electrocardiogram (EKG) 01/28/2018 Electrocardiogram (EKG) 06/10/2018 XR GI SERIES 06/11/2023 US THYROID 06/24/2023 Complete Blood Count Auto Diff CT abdomen pelvis wo con 12/21/2022 US thyroid 07/15/2023 Future Test Test Name Order Date US THYROID 01/02/2020 US THYROID 04/18/2021 CT chest wo con 07/08/2023 US pelvic and transvaginal 07/30/2023 US thyroid 09/11/2024 Next Appt Details Provider Name:Alton Joiner ier, 04/14/2024 10:45:00 AM, [address] [place] [address], Suite [facility], [place], [place], [phone], Provider Name:Alton Munsonmarli ier, 08/31/2024 07:00:00 AM, [address] [place] [address], Suite [facility], [place], [place], [phone], Provider Name:Alton Munsonmarli ier, 09/05/2024 08:45:00 AM, [address] [place] [address], [address] [facility], [place], [place], [phone], Provider Name:Alton Joiner ier, 03/09/2025 07:45:00 AM, [address] [place] [address], [address] [facility], [place], [place], [phone], Provider Name:Alton Joiner ier, 03/16/2025 08:00:00 AM, [address] [place] [address], [address] [facility], [place], [place], [phone], Insurance Providers Payer Name Payer Address Payer Phone Subscriber Number Group Number Insured Name Patient Relationship to Insured Coverage Start Date Coverage End Date MEDICARE [employer] [address] [place] [address] [id number] Maureen Foreman Self - patient is the insured [facility] [address] [place] [address] [id number] Maureen Foreman Self - patient is the insured MEDICAL (GENERAL) HISTORY Medical History History ICD Code discussed colonoscopy again 2012,2013 di scussed 2018 cta chest with small nodule [address] of Chest in (done in 06/2014) Dermatitis due to drugs and medicines ta gamaliel internally Basal cell cancer needs us thyroid 2019 has kidney stone and lithotrypsy 2018 Surgical History Surgery Date(Month/Year) RT Ear Meatoplasty (Dr. Clifton Eason) 10/2019
--- OUTSIDE RECORDS SUMMARY | 2024-04-11 13:46 | XMS_ITS ---
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
--- OUTSIDE RECORDS SUMMARY | 2024-04-11 13:46 | XMS_ITS | Continuity of Care Document ---
Author Organization [place] - [facility], [facility] Address [address] [place] [address] Care Team Providers Care Coppersmith Apprentice Name Role Phone GRAHAM HARGROEV Primary Care Provider Assessment No assessment recorded. Plan of Treatment Reminders Order Date Submit Date Provider Last Modified By Organization Details Last Modified Time Details Appointments Establish ed 10 2024 08:20A M TRACEY KAMINSKI MD Not available Not available Not available Establish ed 15 2024 09:00A M YUDITH CLINE PA-C Not available Not available Not available Lab None recorded. Referral None recorded. Procedures None recorded. Surgeries None recorded. Imaging None recorded. Medication Orders None recorded. Patient TargetsNo targets recorded. Patient InstructionsNo instructions recorded. Reason for Referral None Reported. Problems Name Problem SNOMED Code Status Onset Date Resolution Date Notes Provider Name and Address Organization Details Recorded Time Impacted cerumen in left ear 20548048853 82040 Active 2019 Impacted cerumen, left ear; Note: Date Diagnose d: 0 9:06 AM (H61.22) Not Available [facility] 4 02:59:24 Bilatera l diffuse otitis externa [id number] 19841 Completed 201912/03/2023 Diffuse otitis externa, bilatera l; Note: Changed from H60.312 to H60.313 ( 0 9:01 AM) , Date Diagnose d: 0 11:52 AM (H60.312 ) Not Available [facility] 4 02:59:21 Cellulit is of both external ears 43923254556 94676 Completed 201912/03/2023 Cellulit is of external ear, bilatera l; Note: Date Diagnose d: 08/10/2019 9:02 AM (H60.13) Not Available [facility] 4 02:59:22 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 80284301992 35662 Active 2019 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 and infectio n; Note: Date Diagnose d: 0 8:43 AM (H61.322 ) Not Available [facility] 4 02:59:21 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 27058321902 76245 Completed 201912/03/2023 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 and infectio n; Note: Date Diagnose d: 0 8:43 AM (H61.321 ) Not Available [facility] 4 02:59:22 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 47473362585 89404 Active 2019 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 and infectio n; Note: Date Diagnose d: 0 8:43 AM (H61.322 ) Not Available [facility] 4 02:59:21 Acute myringit is of right ear 23779093654 85711 Completed 201912/03/2023 Acute myringit is, right ear; Note: Date Diagnose d: 0 10:14 AM (H73.001 ) Not Available [facility] 4 02:59:21 Otitis externa of bilatera l ears 43853609140 79269 Completed 201912/03/2023 Other otitis externa, bilatera l; Note: Date Diagnose d: 09/07/2019 10:30 AM (H60.8X3 ) Not Available [facility] 4 02:59:24 Candidal otitis externa 68508287 Active 2022 Candidal otitis externa; Note: Date Diagnose d: 3 8:45 AM (B37.84) Candid al otitis externa; Note: Date Diagnose d: 0 9:31 AM (B37.84) ; Start Date : 05/18/19 20 Not Available [facility] 4 02:59:22 Sensorin eural hearing loss of bilatera l ears 112291293 Active 2020 Sensorin eural hearing loss, bilatera l; Note: Date Diagnose d: 1 9:19 AM (H90.3) Not Available [facility] 4 02:59:25 Impacted cerumen of bilatera l ears 27458302147 Active 2019 Impacted cerumen, bilatera l; Note: Date Diagnose d: 0 9:31 AM (H61.23) Not Available [facility] 4 02:59:23 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 11156989813 32266 Active 2019 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 and infectio n, bilatera l; Note: Date Diagnose d: 0 9:37 AM (H61.323 ) Not Available [facility] 4 02:59:24 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 68140654004 34061 Active 2019 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 and infectio n, bilatera l; Note: Date Diagnose d: 0 9:37 AM (H61.323 ) Not Available [facility] 4 02:59:24 Follow-u p visit Active 2019 Encounte r for follow-u p examinat ion after complete d treatmen t for conditio ns other than malignan t neoplasm ; Note: Date Diagnose d: 11/02/2019 11:14 AM (Z09) Medica l surveill ance followin g complete d treatmen t; Note: Date Diagnose d: 0 9:50 AM (Z09) ; Start Date : 10/30/19 20 Not Available [facility] 02:59:25 Problem Notes None recorded. Procedures Surgical History Date Name Laterality Status Provider Name and Address Organization Details Recorded Time 04/04/20 24 Cerumen removal with microscope left completed TRACEY KAMINSKI MD [address] [facility] [address], [place], [address], [place] - [facility] 04/03/2024 07:34:32 01/04/20 24 Cerumen removal with microscope left completed TRACEY KAMINSKI MD [address] [facility],[address], [address], [place] - [facility] 01/04/2024 09:06:38 10/19/19 24 Cerumen removal with microscope left completed TRACEY KAMINSKI MD [address] [facility],[address], [address], [place] - [facility] 10/19/2023 08:46:23 lithotripsy completed Latha Fu [place] - [facility] 10/19/2023 08:30:53 meatoplasty of external ear completed Latha Fu [place] - [facility] 10/19/2023 08:31:07 Imaging Results None recorded. Procedure Notes None recorded. Medical Equipment None Reported. Allergies Allergen ID Allergen Name Allergen Category Reaction Reaction Severity Criticality Documentation Date Start Date Code Code System Note Provider Name and Address Organization Details Recorded Time 763236 cephalexi n monohydra te medicatio n other Not available Not available 09/14/2023 59494 8 RxNorm React ion: unkno wn, unspe cifie d;; Not Available [facility] 4 01:22:48 934985 Substance with sulfonami de structure and antibacte rial mechanism of action (substanc e) medicatio n other Not available Not available 09/14/2023 41420 8003 SNOMED React ion: unkno wn, unspe cifie d;; Not Available [facility] 4 01:22:48 828099 Iodinated contrast media (substanc e) medicatio n Not available Not available Not available 10/19/2023 28177 2003 SNOMED Latha Fu null, [place] - [facility] 4 08:29:47 Medications Name Sig Start Date Stop Date Status Note LastModified by Organization Details LastModified Time atorvasta tin 40 mg tablet 02/08 completed Medicati on ID: [id number] D uration Value: 90 Brand Name: atorvast atjhoan Sen d Method: E-Prescr ibed Sub s Allowed: subs OK Speci al Instruct ion: TAKE 1 TABLET BY MOUTH EVERY DAY Medi cationGe nericNam e: atorvast atin Not Available Not Available Not Available cetirizin e 10 mg tablet TAKE 1 TABLET BY MOUTH BEDTIME FOR ALLERGY SYMPTOMS 04/04 completed Not Available Not Available Not Available senna 8.6 mg tablet 04/04 completed Medicati on ID: [id number] B rand Name: senkristine Se nd Method: E-Prescr ibed Sub s Allowed: subs OK Speci al Instruct ion: TAKE 2 TABLETS BY MOUTH AT BEDTIME FOR CONSTIPA TION Med icationG enericNa me: senna Not Available Not Available Not Available sucralfat e 100 mg/mL oral suspensio n 04/04 completed Medicati on ID: [id number] B rand Name: sucralfa te Send Method: E-Prescr ibed Sub s Allowed: subs OK Speci al Instruct ion: TAKE 10 ML 1 HOUR BEFORE MEALS AND AT BEDTIME ON AN EMPTY STOMACH ORALLY FOUR TIMES A DAY Medi cationGe nericNam e: sucralfa te Not Available Not Available Not Available ondansetr on HCl 4 mg tablet TAKE 1 TABLET BY MOUTH EVERY DAY FOR 20 DAYS 04/04 completed Not Available Not Available Not Available famotidin e 40 mg tablet TAKE 1 TABLET BY MOUTH EVERYDAY AT BEDTIME 04/04 completed Not Available Not Available Not Available Ciloxan 0.3 % eye drops 10/18 completed Medicati on ID: [id number] D uration Value: 14 Prescri bed By Name: KELLI Barros nd Name: Ciloxan Send Method: E-Prescr ibed Sub s Allowed: subs OK Speci al Instruct ion: 4 drops into affected ear BID X 14 days Med icationG enericNa me: Ciloxan Medicati on ID: [id number] D uration Value: 14 Prescri bed By Name: Yudith FelicianoKELLI harrison nd Name: Ciloxan Send Method: E-Prescr ibed Sub s Allowed: subs OK Speci al Instruct ion: 4 drops into affected ear BID X 14 days Med icationG enericNa me: Ciloxan Not Available Not Available Not Available ciproflox acin 500 mg tablet 1 tablet by mouth 08/02 completed Medicati on ID: [id number] D uration Value: 10 Prescri bed By Name: Flor cisse MD Brand Name: ciproflo xacin HCl Send Method: E-Prescr ibed Sub s Allowed: subs OK Medic ationGen ericName : ciproflo xacin HCl Not Available Not Available Not Available potassium chloride 20 mEq oral packet TAKE 1 TABLET BY MOUTH EVERY OTHER DAY active Not Available Not Available No t Available metoclopr amide 5 mg tablet TAKE 1 TABLET BY MOUTH 3 TIMES PER DAY WITH MEALS. TAKE 15 MINUTES BEFORE MEALS 04/04 completed Not Available Not Available Not Available benzonata te 100 mg capsule TAKE 1 CAPSULE BY MOUTH 3 TIMES PER DAY (COUGH) FOR 5 DAYS 01/03 completed Not Available Not Available Not Available pantopraz ole 40 mg tablet,de layed release 04/04 completed Medicati on ID: [id number] B rand Name: pantopra zole Sen d Method: E-Prescr ibed Sub s Allowed: subs OK Medic ationGen ericName : pantopra zole Not Available Not Available Not Available clotrimaz ole-betam ethasone 1 %-0.05 % topical cream Apply 1 a small amount to affected area three times a day 10/18 completed Medicati on ID: [id number] D uration Value: 14 Prescri bed By Name: Musa Ramirez nd Name: clotrima zole-bet amethaso ne Send Method: E-Prescr ibed Sub s Allowed: subs OK Speci al Instruct ion: Apply with fingerti p to external ear Medi cationGe nericNam e: clotrima zole-bet amethaso ne Medic ation ID: [id number] D uration Value: 14 Prescri bed By Name: Tracey Kaminski M.D. Bra nd Name: huongrijamil horowitze-bet amethbreezyo ne Send Method: E-Prescr ibed Sub s Allowed: subs OK Speci al Instruct ion: Apply with fingerti p to external ear Medi cationGe nericNam e: clotrima zole-bet amethaso ne Not Available Not Available Not Available clotrimaz ole 1 % topical solution 10/18 completed Medicati on ID: [id number] D uration Value: 14 Brand Name: clotrima zolkamran Sen d Method: E-Prescr ibed Sub s Allowed: subs OK Speci al Instruct ion: 4 drops to affected ear three times a day Medi cationGe nericNam e: clotrima zole Med ication ID: [id number] D uration Value: 14 Brand Name: clotrijamil zolkamran Sen d Method: E-Prescr ibed Sub s Allowed: subs OK Speci al Instruct ion: 4 drops to affected ear three times a day Medi cationGe nericNam e: clotrima zole Not Available Not Available Not Available pyridoxin e (vitamin B6) 50 mg tablet TAKE 50 MG ORALLY DAILY FOR 90 DAYS active Not Available Not Available No t Available omeprazol e 20 mg capsule,d elayed release TAKE 1 TABLET BY MOUTH EVERY DAY 30 MINUTES BEFORE MORNING MEAL 01/03 completed Not Available Not Available Not Available lisinopri l 5 mg tablet TAKE 1 TABLET BY MOUTH EVERY DAY 04/04 completed Not Available Not Available Not Available mupirocin 2 % topical ointment 1 a small amount to affected area 10/18 completed Medicati on ID: [id number] D uration Value: 14 Brand Name: mupiroci n Send Method: E-Prescr ibed Sub s Allowed: subs OK Medic ationGen ericName : mupiroci n Medica tion ID: [id number] D uration Value: 14 Brand Name: mupiroci n Send Method: E-Prescr ibed Sub s Allowed: subs OK Medic ationGen ericName : mupiroci n Not Available Not Available Not Available cefuroxim e axetil 500 mg tablet 1 tablet by mouth 10/18 completed Medicati on ID: [id number] D uration Value: 14 Brand Name: cefuroxi me axetil S end Method: E-Prescr ibed Sub s Allowed: subs OK Medic ationGen ericName : cefuroxi me axetil M eddyo n ID: [id number] D uration Value: 14 Brand Name: cefuroxi me axetil S end Method: E-Prescr ibed Sub s Allowed: subs OK Medic ationGen ericName : cefuroxi me axetil Not Available Not Available Not Available multivita min capsule 2019 active Medicati on ID: [id number] B rand Name: multivit anderson Sen d Method: E-Prescr ibed Sub s Allowed: subs OK Medic ationGen ericName : multivit anderson Not Available Not Available Not Available oxycodone 5 mg tablet 1 tablet by mouth 10/18 completed Medicati on ID: [id number] D uration Value: 3 Brand Name: oxycodon e Send Method: E-Prescr ibed Sub s Allowed: subs OK Medic ationGen ericName : oxycodon e Medica tion ID: [id number] D uration Value: 3 Brand Name: oxycodon e Send Method: E-Prescr ibed Sub s Allowed: subs OK Medic ationGen ericName : oxycodon e Not Available Not Available Not Available neomycin 3.5 mg/g-poly myxin B 10,000 unit/g-de xameth 0.1 % eye oint 10/25 completed Medicati on ID: [id number] Juan Pablo conteh d By Name: Musa Ramirez nd Name: neomycin -polymyx in B-dexame th Send Method: E-Prescr ibed Sub s Allowed: subs OK Speci al Instruct ion: apply to both ear canals TID [facility] cationGe nericNam e: neomycin -polymyx in B-dexame th Not Available Not Available Not Available Ciprodex 0.3 %-0.1 % ear drops,luiz pension 4 drop 10/18 completed Medicati on ID: [id number] D uration Value: 14 Brand Name: Ciprodex Send Method: E-Prescr ibed Sub s Allowed: subs OK Medic ationGen ericName : Ciprodex Medicat ion ID: [id number] D uration Value: 14 Brand Name: Ciprodex Send Method: E-Prescr ibed Sub s Allowed: subs OK Medic ationGen ericName : Ciprodex Not Available Not Available Not Available rosuvasta tin 40 mg tablet TAKE 1 TABLET BY MOUTH EVERY DAY active Not Available Not Available No t Available Klor-Con M20 mEq tablet,ex tended release TAKE 1 TABLET BY MOUTH EVERY DAY 04/04 completed Not Available Not Available Not Available Cortispor in 1 % topical ointment 10/18 completed Medicati on ID: [id number] D uration Value: 30 Brand Name: Cortispo rin Send Method: E-Prescr ibed Sub s Allowed: subs OK Speci al Instruct ion: apply to bith ears canals three times a day Medi cationGe nericNam e: Cortispo rin Medi cation ID: [id number] D uration Value: 30 Brand Name: Cortispo rin Send Method: E-Prescr ibed Sub s Allowed: subs OK Speci al Instruct ion: apply to bith ears canals three times a day Medi cationGe nericNam e: Cortispo rin Not Available Not Available Not Available Gas Relief Extra Strength 125 mg chewable tablet CHEW 1 TAB 2-3 TIMES A DAY NEEDED FOR ABDOMINA L DISTENTI ON 04/04 completed Not Available Not Available Not Available omeprazol e 20 mg tablet,de layed release TAKE 1 TABLET BY MOUTH EVERY DAY 30 MIN BEFORE MEALS IN THE AM PT AWARE NOT COVERED 01/03 completed Not Available Not Available Not Available Paxlovid 300 mg (150 mg x 2)-100 mg tablets in a dose pack TAKE 3 TABLETS BY MOUTH TWICE A DAY FOR 5 DAYS 01/03 completed Not Available Not Available Not Available Vitals None Recorded Social History None recorded. Functional Status None recorded. Mental Status None recorded. Family History Nothing Reported. Medical History Condition Response Hypertension Y GERD/Reflux Y High Cholesterol Y Gynecological HistoryNo gynecological history recorded. 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 [id number] 167790 H61.322 Impacted c erumen in left ear 8049190079 111395 H61.22 Health Concerns Section Related Observation LastModified by Organization Detai ls LastModified Time None Recorded Concern Status LastModified by Organization Details LastModified Time None Recorded Payers Encounter Date Sequence Insurance Name Policy Number Policy Chi Covered Member ID Chi Member ID Guarantor Name 04/04/2024 2 [facility] IN[facility]MN[facility] (MEDICARE SUPPLEMENT) [id number] Maureen Foreman [id number] Maureen Foreman 04/04/2024 1 [place]IC[place] B-[place]: [facility] [employer] Maureen Foreman [id number] Maureen Foreman Notes Date Note Type Note Provider Name and Address Organization Details Recorded Time 04/04/2024 text/html 83-year-old fema sandra presents for cerumen removal. She has a history of bilateral external auditory canals stenosis. Meatoplasty done in 2019 on the right side with resulting resolution of the stenosis on the right. She reports the right ear is feeling great. Recent blockage sensation on the left accompanied by difficulty hearing. TRACEY KAMINSKI MD [address] [place] [address], [address], [place] - [facility] 04/04/2024 08:38:51 OBGyn Episode No OBEpisode recorded.
--- OUTSIDE RECORDS SUMMARY | 2024-04-11 13:46 | XMS_ITS | Data Portability ---
Author Organization ID - [facility], Allergy Address [address] [address] Care Team Providers Care Mangle Tender Name Role Phone GRAHAM HARGROVE Primary Care Provider Assessment No assessment recorded. [...] instructions recorded. Reason for Referral None Reported. Results Created Date Observation Date Name Description Value Unit Range Abnormal Flag Note LastModifiedBy Organization Detail LastModifiedTime 12/21/19 24 09/27/2018 imagi ng/di agnos tic resul t No observ ation record ed. [email or web address] Not Available 18:48:53 12/21/19 24 12/10/2020 imagi ng/di agnos tic resul t No observ ation record ed. [email or web address] Not Available 18:49:03 12/21/19 24 12/10/2020 imagi ng/di agnos tic resul t No observ ation record ed. [email or web address] Not Available 18:49:09 12/21/19 24 12/10/2020 audio gram No observ ation record ed. [email or web address] Not Available 18:50:31 Result Notes None recorded. Problems Name Problem SNOMED Code Status Onset Date Resolution Date Notes Provider Name and Address Organization Details Recorded Time Impacted cerumen in left ear 01602658483 75542 Active 2019 Impacted cerumen, left ear; Note: Date Diagnose d: 0 9:06 AM (H61.22) Not Available [facility] 4 02:59:24 Bilatera l diffuse otitis externa 01843531526 Completed 201912/03/2023 Diffuse otitis externa, bilatera l; Note: Changed from H60.312 to H60.313 ( 0 9:01 AM) , Date Diagnose d: 0 11:52 AM (H60.312 ) Not Available [facility] 4 02:59:21 Cellulit is of both external ears 90607946065 Completed 201912/03/2023 Cellulit is of external ear, bilatera l; Note: Date Diagnose d: 08/10/2019 9:02 AM (H60.13) Not Available [facility] 4 02:59:22 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 21342257102 Active 2019 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 and infectio n; Note: Date Diagnose d: 0 8:43 AM (H61.322 ) Not Available [facility] 4 02:59:21 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 83649455717 Completed 201912/03/2023 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 and infectio n; Note: Date Diagnose d: 0 8:43 AM (H61.321 ) Not Available [facility] 4 02:59:22 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 97685129784 27153 Active 2019 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 and infectio n; Note: Date Diagnose d: 0 8:43 AM (H61.322 ) Not Available [facility] 4 02:59:21 Acute myringit is of right ear 75899224515 88344 Completed 201912/03/2023 Acute myringit is, right ear; Note: Date Diagnose d: 0 10:14 AM (H73.001 ) Not Available [facility] 4 02:59:21 Otitis externa of bilatera l ears 93020112087 13310 Completed 201912/03/2023 Other otitis externa, bilatera l; Note: Date Diagnose d: 09/07/2019 10:30 AM (H60.8X3 ) Not Available [facility] 4 02:59:24 Candidal otitis externa 61827184 Active 2022 Candidal otitis externa; Note: Date Diagnose d: 3 8:45 AM (B37.84) Candid al otitis externa; Note: Date Diagnose d: 0 9:31 AM (B37.84) ; Start Date : 05/18/19 20 Not Available [facility] 4 02:59:22 Sensorin eural hearing loss of bilatera l ears 620863746 Active 2020 Sensorin eural hearing loss, bilatera l; Note: Date Diagnose d: 1 9:19 AM (H90.3) Not Available [facility] 4 02:59:25 Impacted cerumen of bilatera l ears 27158224260 59927 Active 2019 Impacted cerumen, bilatera l; Note: Date Diagnose d: 0 9:31 AM (H61.23) Not Available [facility] 4 02:59:23 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 77887713683 Active 2019 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 and infectio n, bilatera l; Note: Date Diagnose d: 0 9:37 AM (H61.323 ) Not Available [facility] 4 02:59:24 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 95672064630 75637 Active 2019 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 and infectio n, bilatera l; Note: Date Diagnose d: 0 9:37 AM (H61.323 ) Not Available [facility] 4 02:59:24 Follow-u p visit Active 2019 Encounte r for follow-u p examinat ion after complete d treatmen t for conditio ns other than malignan t neoplasm ; Note: Date Diagnose d: 11/02/2019 11:14 AM (Z09) Medica l surveill ance followin g complete d treatmen t; Note: Date Diagnose d: 0 9:50 AM (Z09) ; Start Date : 10/30/19 20 Not Available [facility] 4 02:59:25 Problem Notes None recorded. Procedures Surgical History Date Name Laterality Status Provider Name and Address Organization Details Recorded Time 04/04/20 24 Cerumen removal with microscope left completed TRACEY KAMINSKI MD [address] [place] [address],[address], [address], [facility] - [facility] 04/03/2024 07:34:32 01/04/20 24 Cerumen removal with microscope left completed TRACEY KAMINSKI MD [address] [place] [address],[address], [address], [place] - [facility] 01/04/2024 09:06:38 10/19/19 24 Cerumen removal with microscope left completed TRACEY KAMINSKI MD [address] [place] [address],[address], [address], [place] - [facility] 10/19/2023 08:46:23 lithotripsy completed Latha Fu [place] - [facility] 10/19/2023 08:30:53 meatoplasty of external ear completed Latha Fu [place] - [facility] 10/19/2023 08:31:07 Imaging Results Imaging Date Name Status LastModified by [facility] ation Details LastModified Time 09/27/2018 imaging/diagno stic result completed Information not available 12/21/2023 18:48:53 12/10/2020 imaging/diagno stic result completed Information not available 12/21/2023 18:49:03 12/10/2020 imaging/diagno stic result completed Information not available 12/21/2023 18:49:09 12/10/2020 audiogram completed Information not available 12/21/2023 18:50:31 Procedure Notes None recorded. Medical Equipment None Reported. Allergies Allergen ID Allergen Name Allergen Category Reaction Reaction Severity Criticality Documentation Date Start Date Code Code System Note Provider Name and Address Organization Details Recorded Time 782943 cephalexi n monohydra te medicatio n other Not available Not available 09/14/2023 16281 8 RxNorm React ion: unkno wn, unspe cifie d;; Not Available [facility] 4 01:22:48 199945 Substance with sulfonami de structure and antibacte rial mechanism of action (substanc e) medicatio n other Not available Not available 09/14/2023 75855 8003 SNOMED React ion: unkno wn, unspe cifie d;; Not Available [facility] 4 01:22:48 381817 Iodinated contrast media (substanc e) medicatio n Not available Not available Not available 10/19/2023 86058 2003 SNOMED Latha monteiro [place] - [facility] 4 08:29:47 Medications Name Sig Start Date Stop Date Status Note LastModified by Organization Details LastModified Time atorvasta tin 40 mg tablet 02/08 completed Medicati on ID: [id number] D uration Value: 90 Brand Name: atorvast atin Sen d Method: E-Prescr ibed Sub s [...] mg tablet 04/04 completed Medicati on ID: [id number] B rand Name: senna Se nd Method: E-Prescr ibed Sub s Allowed: subs OK Speci al Instruct ion: TAKE 2 TABLETS BY MOUTH AT BEDTIME FOR CONSTIPA TION Med icationG enericNa me: senna Not Available Not Available Not Available sucralfat e 100 mg/mL oral suspensio n 04/04 completed Medicati on ID: [id number] B rand Name: sucralfa te Send Method: [...] eye drops 10/18 completed Medicati on ID: [id number] D uration Value: 14 Prescri bed By Name: KELLI Barros nd Name: Ciloxan Send Method: E-Prescr ibed Sub s Allowed: subs OK Speci al Instruct ion: 4 drops into affected ear BID X 14 days Med icationG enericNa me: Ciloxan Medicati on ID: [id number] D uration Value: 14 Prescri bed By Name: KELLI Barros nd Name: Ciloxan Send Method: E-Prescr ibed Sub s Allowed: subs OK Speci al Instruct ion: 4 drops into affected ear BID X 14 days Med icationG enericNa me: Ciloxan Not Available Not Available Not Available ciproflox acin 500 mg tablet 1 tablet by mouth 08/02 completed Medicati on ID: [id number] D uration Value: 10 Prescri bed By [...] layed release 04/04 completed Medicati on ID: [id number] B rand Name: pantopra zole Sen d Method: E-Prescr ibed Sub s Allowed: subs OK [facility] pantopra zole Not Available Not Available Not Available clotrimaz ole-betam ethasone 1 %-0.05 % topical cream Apply 1 a small amount to affected area three times a day 10/18 completed Medicati on ID: [id number] D uration Value: 14 Prescri bed By Name: Musa Ramirez nd Name: clotrima zole-bet amethaso ne Send Method: E-Prescr ibed Sub s Allowed: subs ELIZABETH Hernandez al Instruct ion: Apply with fingerti p to external ear Medi cationGe nericNam e: clotrima zole-bet amethaso ne Medic ation ID: [id number] D uration Value: 14 Prescri bed By Name: Musa Ramirez nd Name: clotrima zole-bet amethaso ne Send Method: E-Prescr ibed Sub s Allowed: subs OK Speci al Instruct ion: Apply with fingerti p to external ear Medi cationGe nericNam e: clotrima zole-bet amethaso ne Not Available Not Available Not Available clotrimaz ole 1 % topical solution 10/18 completed Medicati on ID: [id number] D uration Value: 14 Brand Name: clotrima zole Sen d Method: E-Prescr ibed Sub s Allowed: subs OK Speci al Instruct ion: 4 drops to affected ear three times a day Medi cationGe nericNam e: clotrima zole Med ication ID: [id number] D uration Value: 14 Brand Name: clotrima zole Sen d Method: E-Prescr ibed Sub [...] affected area 10/18 completed Medicati on ID: [id number] D uration Value: 14 Brand Name: mupiroci n Send Method: E-Prescr ibed Sub s Allowed: subs OK Medic ationGen ericName : mupiroci n Medica tion ID: [id number] D uration Value: 14 Brand Name: mupiroci n Send Method: E-Prescr ibed Sub s Allowed: subs OK Medic ationGen ericName : mupiroci n Not Available Not Available Not Available cefuroxim e axetil 500 mg tablet 1 tablet by mouth 10/18 completed Medicati on ID: [id number] D uration Value: 14 Brand Name: cefuroxi me axetil S end Method: E-Prescr ibed Sub s Allowed: subs OK Medic ationGen ericName : cefuroxi me axetil M edicatio n ID: [id number] D uration Value: 14 Brand Name: cefuroxi me axetil S end Method: E-Prescr ibed Sub s Allowed: subs OK Medic ationGen ericName : cefuroxi me axetil Not Available Not Available Not Available multivita min capsule 2019 active Medicati on ID: [id number] B rand Name: multivit anderson Sen d Method: E-Prescr ibed Sub s Allowed: subs OK Medic ationGen ericName : multivit anderson Not Available Not Available Not Available oxycodone 5 mg tablet 1 tablet by mouth 10/18 completed Medicati on ID: [id number] D uration Value: 3 Brand Name: oxycodon e Send Method: E-Prescr ibed Sub s Allowed: subs OK Medic ationGen ericName : oxycodon e Medica tion ID: [id number] D uration Value: 3 Brand Name: oxycodon e Send Method: E-Prescr ibed Sub s Allowed: subs OK Medic ationGen ericName : oxycodon e Not Available Not Available Not Available neomycin 3.5 mg/g-poly myxin B 10,000 unit/g-de xameth 0.1 % eye oint 10/25 completed Medicati on ID: [id number] P yady d By Name: Musa Ramirez nd Name: neomycin -polymyx in B-dexame th Send Method: E-Prescr ibed Sub s Allowed: subs OK Speci al Instruct ion: apply to both ear canals TID Medi cationGe nericNam e: neomycin -polymyx in B-dexame th Not Available Not Available Not Available Ciprodex 0.3 %-0.1 % ear drops,luiz pension 4 drop 10/18 completed Medicati on ID: [id number] D uration Value: 14 Brand Name: Ciprodex Send Method: E-Prescr ibed Sub s Allowed: subs OK Medic ationGen ericName : Ciprodex Medicat ion ID: [id number] D uration Value: 14 Brand Name: Ciprodex [...] topical ointment 10/18 completed Medicati on ID: [id number] D uration Value: 30 Brand Name: Machopo lisa Send Method: E-Prescr ibed Sub s Allowed: subs OK Speci al Instruct ion: apply to bith ears canals three times a day Medi cationGe nericNam e: Cortispo rin Medi cation ID: [id number] D uration Value: 30 Brand Name: Machopo rin Send Method: E-Prescr ibed Sub s [...] Reported. Medical History Condition Response Hypertension Y High Cholesterol Y GERD/Reflux Y Gynecological HistoryNo gynecological history recorded. 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 [id number] 294866 H61.322 Impacted c erumen in left ear 1450604236 831848 H61.22 [id number] TRACEY KAMINSKI MD [facility] [address] [address] 01/04/2024 08:33:56 01/04/2024 09:08:18 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 8541384745 997732 H61.322 Impacted c erumen in left ear 8767593789 853523 H61.22 [id number] TRACEY KAMINSKI MD [facility] [address] [address] 04/04/2024 07:58:18 04/04/2024 08:33:09 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 5321331702 076594 H61.322 Impacted c erumen in left ear 0089618004 940814 H61.22 Health Concerns Section Related Observation LastModified by Organization Detai ls LastModified Time None Recorded Concern Status LastModified by Organization Details LastModified Time None Recorded Advance Directives Directive None Recorded Payers Encounter Date Sequence Insurance Name Policy Number Policy Chi Covered Member ID Chi Member ID Guarantor Name 10/19/2023 1 MEDICARE B-ID: [facility] Maureen J Williamdaida [id number] Maureen J Williamdziel 10/19/2023 2 [employer] - SENIOR SERVICES PLAN F (MEDICARE SUPPLEMENT) [id number] Maureen J Williamdziel [id number] Maureen J Kurdziel 01/04/2024 1 MEDICARE B-ID: [employer] Maureen J Williamdziel [id number] Maureen J Kurdziel 01/04/2024 2 [employer] - SENIOR SERVICES PLAN F (MEDICARE SUPPLEMENT) [id number] Maureen J Williamdziel [id number] Maureen J Kurdziel 04/04/2024 2 [employer]ICARE - GIC INDEMNITY PLAN (MEDICARE SUPPLEMENT) [id number] Maureen J Williamdziel [id number] Maureen J Kurdziel 04/04/2024 1 MEDICARE B-ID: [facility] [employer] Maureen J Williamdziel [id number] 2 Maureen J Williamdzeyadel Notes Date Note Type Note Provider Name and Address Organization Details Recorded Time 10/19/2023 text/html 83-year-old fema sandra presents for cerumen removal. She has a history of bilateral external auditory canals stenosis. Meatoplasty done in 2019 on the right side with resulting resolution of the stenosis on the right. She reports the right ear is feeling great. Recent blockage sensation on the left accompanied by difficulty hearing. TRACEY KAMINSKI MD [address] [place] [address],[address], [address], [facility] 10/19/2023 08:51:52 01/04/2024 text/html 83-year-old markus flores presents for cerumen removal. She has a history of bilateral external auditory canals stenosis. Meatoplasty done in 2020 on the right side with resulting resolution of the stenosis on the right. She reports the right ear is feeling great. Recent blockage sensation on the left accompanied by difficulty hearing. TRACEY KAMINSKI MD [address] [facility], [place], [address], [facility] 01/04/2024 09:08:08 04/04/2024 text/html 83-year-old markus flores presents for cerumen removal. She has a history of bilateral external auditory canals stenosis. Meatoplasty done in 2019 on the right side with resulting resolution of the stenosis on the right. She reports the right ear is feeling great. Recent blockage sensation on the left accompanied by difficulty hearing. TRACEY KAMINSKI MD [address] [facility], [place], [address], [facility] 04/04/2024 08:38:51 OBGyn Episode No OBEpisode recorded.
== END 2024-04-04 12:28 | disposition home or self-care (01) ==
LOC: HO.LNP 12:27
PROVIDERS: Visit Provider Internal Medicine
DX: D70.9 Neutropenia, unspecified (principal)
CPT/HCPCS: 84132; 85025

== ENCOUNTER 2024-04-06 13:40 | Outpatient (AMB) | payer MEDICARE, OTHER, SELFPAY ==
--- NOTE | 2024-04-06 13:57 | MHC.AMNUTRGE ---
VS Expanded 04/06/24 13:58 Height 5 ft 8 in Weight 115 lb 8.356 oz BMI 17.6 Intake Visit Reasons: weight loss Allergies cephalexin [From KEFLEX] Allergy (Severe, Verified 03/29/24 14:11) RASH Sulfa (Sulfonamide Antibiotics) [SULFA (SULFONAMIDE ANTIBIOTICS)] Allergy (Severe, Verified 03/29/24 14:11) INTSERNAL AND EXTERNAL RASH/INFECTION Iodinated Contrast Media [IV Dye, Iodine Containing] Allergy (Intermediate, Verified 03/29/24 14:11) HIVES,REDNESS + SWELLING sulfamethoxazole [From BACTRIM] Allergy (Intermediate, Verified 03/29/24 14:11) INTERNAL AND EXTERNAL RASH/ INFECTION stent Allergy (Uncoded 01/07/24 08:55) Vomiting Nutrition Presentation Details: Pt presents for MNT f/u for unintentional weight loss Gradually reintroducing some foods she enjoys in small portions. Reports participating in family meal activities/restaurants and calls ahead to assure availability and possible food/recipe modifications (dairy free/spices) Enjoys pastries and most are prepared with dairy however making modifications choosing dairy free ingredients Has at least 2 cups of fairlife milk daily and tolerates well Reports having 5 small meals per day including lean protein/starches/dairy free/lactose free milk BS Monitoring Most Recent Diabetes Results: Cholesterol 215 mg/dL (<200) H 03/07/24 HDL Cholesterol 80 mg/dL (>40) 03/07/24 Triglycerides 63 mg/dL (<150) 03/07/24 Creatinine 0.64 mg/dL (0.5-1.4) 03/07/24 Blood Urea Nitrogen 23 mg/dL (9-16) H 03/07/24 Sodium 141 mmol/L (135-145) 03/07/24 Potassium 3.9 mmol/L (3.3-5.1) 04/04/24 Chloride 104 mmol/L (96-108) 03/07/24 Carbon Dioxide 27 mmol/L (22-29) 03/07/24 Calcium 10.1 mg/dL (8.4-10.2) 03/07/24 AST 43 U/L (5-31) H 03/07/24 ALT 40 U/L (0-31) H 03/07/24 Total Protein 6.4 g/dL (6.5-8.0) L 03/07/24 Albumin 4.0 g/dL (3.5-5.0) 03/07/24 PFSH Medical History Erosive esophagitis Kidney stone GERD (gastroesophageal reflux disease) High cholesterol HTN (hypertension) Surgical History H/O lithotripsy H/O esophagogastroduodenoscopy (07/09/23) Social History Alcohol intake: never Patient Tobacco Use Status: Never used Tobacco Advance Directives Date on File: 09/22/23 Assessment & Plan Assessment & Plan (1) Weight loss, unintentional: Code(s): R63.4 - Abnormal weight loss Category: Medical Plan: Increasing protein food portion and starches able to tolerate for weigh gain and keeping hydrated wt : 51 (01/2024) , 52 kg (04/25) est kcal needs (kg BW x 30) : 1600 est protein 1- 1.2 g/kg bw: 52- 62 est fluid needs as per 30 x kg BW: 1600 Patient Instructions: Continue gradually increasing portion sizes Try increasing portion of protein food by 1-2 oz (poultry, fish, eggs, deli) small amounts accompanied by your typical meals, choosing less gas causing foods (rice, baked potato, cream of rice, corn cereals, lactose free fodo choices, spinach , carrots, green beans, parsnips as example keep hydrated by having broth, juices diluted with water , farilife milk Coding Level of Care Code Nutr Indiv Subseq (99202) Diagnoses Weight loss, unintentional R63.4 Time Spent (min) 20
[2024-04-06 13:58] VITALS: BMI 17.6
== END 2024-04-06 14:31 | disposition home or self-care (01) ==
PROVIDERS: PCP Internal Medicine; Visit Provider Dietitian, Registered
DX: R63.4 Abnormal weight loss (principal)

== ENCOUNTER → 2024-04-06 13:40 | Outpatient (BNVA) | payer MEDICARE, OTHER, SELFPAY | PROVIDERS: PCP Internal Medicine; Visit Provider Dietitian, Registered | DX: R63.4 Abnormal weight loss (principal); Z71.3 Dietary counseling and surveillance; Z68.1 Body mass index [BMI] 19.9 or less, adult | CPT/HCPCS: 97803 ==

== ENCOUNTER 2024-04-21 07:46 | Outpatient (AMB) | payer MEDICARE, OTHER, SELFPAY ==
--- OUTSIDE RECORDS SUMMARY | 2024-04-21 07:48 | XMS_ITS | Continuity of Care Document ---
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 Plan of Treatment [...] Recorded Time Impacted cerumen in left ear [id number] Active 2019 Impacted cerumen, left ear; Note: Date Diagnose d: 0 9:06 AM (H61.22) Not Available [facility] 4 02:59:24 Bilatera l diffuse otitis externa [id number] 39470 Completed 201912/03/2023 Diffuse otitis externa, bilatera l; Note: Changed from H60.312 to H60.313 ( 0 9:01 AM) , Date Diagnose d: 0 11:52 AM (H60.312 ) Not Available [facility] 4 02:59:21 Cellulit is of both external ears [id number] 19631 Completed 201912/03/2023 Cellulit is of external ear, bilatera l; Note: Date Diagnose d: 08/10/2019 9:02 AM (H60.13) Not Available [facility] 4 02:59:22 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 [id number] 69423 Active 2019 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 and infectio n; Note: Date Diagnose d: 0 8:43 AM (H61.322 ) Not Available [facility] 4 02:59:21 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 [id number] 14834 Completed 201912/03/2023 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 and infectio n; Note: Date Diagnose d: 0 8:43 AM (H61.321 ) Not Available [facility] 4 02:59:22 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 [id number] 23863 Active 2019 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 and infectio n; Note: Date Diagnose d: 0 8:43 AM (H61.322 ) Not Available [facility] 4 02:59:21 Acute myringit is of right ear [id number] 68374 Completed 201912/03/2023 Acute myringit is, right ear; Note: Date Diagnose d: 0 10:14 AM (H73.001 ) Not Available [facility] 4 02:59:21 Otitis externa of bilatera l ears [id number] 83852 Completed 201912/03/2023 Other otitis externa, bilatera l; Note: Date Diagnose d: 09/07/2019 10:30 AM (H60.8X3 ) Not Available [facility] 4 02:59:24 Candidal otitis externa 01975465 Active 2022 Candidal otitis externa; Note: Date Diagnose d: 3 8:45 AM (B37.84) Candid al otitis externa; Note: Date Diagnose d: 0 9:31 AM (B37.84) ; Start Date : 05/18/19 20 Not Available [facility] 4 02:59:22 Sensorin eural hearing loss of bilatera l ears [id number] Active 2020 Sensorin eural hearing loss, bilatera l; Note: Date Diagnose d: 1 9:19 AM (H90.3) Not Available [facility] 4 02:59:25 Impacted cerumen of bilatera l ears 81696348318 Active 2019 Impacted cerumen, bilatera l; Note: Date Diagnose d: 0 9:31 AM (H61.23) Not Available [facility] 4 02:59:23 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 79930093165 89835 Active 2019 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 and infectio n, bilatera l; Note: Date Diagnose d: 0 9:37 AM (H61.323 ) Not Available [facility] 4 02:59:24 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 90575459589 14564 Active 2019 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 Procedures Surgical History Date Name Laterality Status Provider Name and Address Organization Details Recorded Time 04/04/20 24 Cerumen removal with microscope left completed TRACE[facility]AMINSKI MD [address] [facility] [address] [address], [place], [address], [place] - [facility] 04/03/2024 07:34:32 01/04/20 24 Cerumen removal with microscope left completed TRACEY KAMINSKI MD [address] [facility],[address], [address], [place] - [facility] 01/04/2024 09:06:38 10/19/19 24 Cerumen removal with microscope left completed TRACEY KAMINSKI MD [address] [facility],[address], [address], [place] - [facility] 10/19/2023 08:46:23 lithotripsy completed Latha Fu [place] - [facility] 10/19/2023 08:30:53 meatoplasty of external ear completed Latha uF [place] - [facility] 10/19/2023 08:31:07 Imaging Results None recorded. Procedure Notes None recorded. Medical Equipment None Reported. Allergies Allergen ID Allergen Name Allergen Category Reaction Reaction Severity Criticality Documentation Date Start Date Code Code System Note Provider Name and Address Organization Details Recorded Time 843464 cephalexi n monohydra te medicatio n other Not available Not available 09/14/2023 82382 8 RxNorm React ion: unkno wn, unspe cifie d;; Not Available [facility] 4 01:22:48 930332 Substance with sulfonami de structure and antibacte rial mechanism of action (substanc e) medicatio n other Not available Not available 09/14/2023 80743 8003 SNOMED React ion: unkno wn, unspe cifie d;; Not Available [facility] 4 01:22:48 637588 Iodinated contrast media (substanc e) medicatio n Not available Not available Not available 10/19/2023 90430 2003 SNOMED Latha Fu null, [place] - [facility] 4 08:29:47 Medications Name Sig Start Date Stop Date Status Note LastModified by Organization Details LastModified Time atorvasta tin 40 mg tablet 02/08 completed Medicati on ID: [id number] D uration Value: 90 Brand Name: atorvast [...] mg tablet 04/04 completed Medicati on ID: [id number] B rand Name: senkristine Se nd Method: E-Prescr ibed Sub s Allowed: subs OK Speci al Instruct ion: TAKE 2 TABLETS BY MOUTH AT BEDTIME FOR CONSTIPA TION Med icationG enericNa me: senna Not Available Not Available Not Available sucralfat e 100 mg/mL oral suspensio n 04/04 completed Medicati on ID: [id number] B rand Name: sucralfa te Send Method: [...] eye drops 10/18 completed Medicati on ID: [id number] D uration Value: 14 Prescri bed By Name: KELLI Barros nd Name: Ciloxan Send Method: E-Prescr ibed Sub s Allowed: subs OK Speci al Instruct ion: 4 drops into affected ear BID X 14 days Med icationG enericNa me: Ciloxan Medicati on ID: [id number] D uration Value: 14 Prescri bed By Name: Yudith FelicianoKELLI harrison nd Name: Ciloxan Send Method: E-Prescr ibed Sub s Allowed: subs OK Speci al Instruct ion: 4 drops into affected ear BID X 14 days Med icationG enericNa me: Ciloxan Not Available Not Available Not Available ciproflox acin 500 mg tablet 1 tablet by mouth 08/02 completed Medicati on ID: [id number] D uration Value: 10 Prescri bed By [...] layed release 04/04 completed Medicati on ID: [id number] B rand Name: pantopra zole Sen d Method: E-Prescr ibed Sub s Allowed: subs OK Medic ationGen ericName : pantopra zole Not Available Not Available Not Available clotrimaz ole-betam ethasone 1 %-0.05 % topical cream Apply 1 a small amount to affected area three times a day 10/18 completed Medicati on ID: [id number] D uration Value: 14 Prescri bed By Name: Musa Ramirez nd Name: clotrima zole-bet amethaso ne Send Method: E-Prescr ibed Sub s Allowed: subs OK Speci al Instruct ion: Apply with fingerti p to external ear Medi cationGe nericNam e: clotrima zole-bet amethaso ne Medic ation ID: [id number] D uration Value: 14 Prescri bed By Name: Tracey Kaminski M.D. Bra nd Name: huongrijamil horowitze-bet amethbreezyo ne Send Method: E-Prescr ibed Sub s Allowed: subs OK Speci al Instruct ion: Apply with fingerti p to external ear Medi cationGe nericNam e: clotrima zole-bet amethaso ne Not Available Not Available Not Available clotrimaz ole 1 % topical solution 10/18 completed Medicati on ID: [id number] D uration Value: 14 Brand Name: clotrima zolkamran Sen d Method: E-Prescr ibed Sub s Allowed: subs OK Speci al Instruct ion: 4 drops to affected ear three times a day Medi cationGe nericNam e: clotrima zole Med ication ID: [id number] D uration Value: 14 Brand Name: clotrijamil [...] affected area 10/18 completed Medicati on ID: [id number] D uration Value: 14 Brand Name: mupiroci n Send Method: E-Prescr ibed Sub s Allowed: subs OK Medic ationGen ericName : mupiroci n Medica tion ID: [id number] D uration Value: 14 Brand Name: mupiroci n Send Method: E-Prescr ibed Sub s Allowed: subs OK Medic ationGen ericName : mupiroci n Not Available Not Available Not Available cefuroxim e axetil 500 mg tablet 1 tablet by mouth 10/18 completed Medicati on ID: [id number] D uration Value: 14 Brand Name: cefuroxi me axetil S end Method: E-Prescr ibed Sub s Allowed: subs OK Medic ationGen ericName : cefuroxi me axetil M eddyo n ID: [id number] D uration Value: 14 Brand Name: cefuroxi me axetil S end Method: E-Prescr ibed Sub s Allowed: subs OK Medic ationGen ericName : cefuroxi me axetil Not Available Not Available Not Available multivita min capsule 2019 active Medicati on ID: [id number] B rand Name: multivit anderson Sen d Method: E-Prescr ibed Sub s Allowed: subs OK Medic ationGen ericName : multivit anderson Not Available Not Available Not Available oxycodone 5 mg tablet 1 tablet by mouth 10/18 completed Medicati on ID: [id number] D uration Value: 3 Brand Name: oxycodon e Send Method: E-Prescr ibed Sub s Allowed: subs OK Medic ationGen ericName : oxycodon e Medica tion ID: [id number] D uration Value: 3 Brand Name: oxycodon e Send Method: E-Prescr ibed Sub s Allowed: subs OK Medic ationGen ericName : oxycodon e Not Available Not Available Not Available neomycin 3.5 mg/g-poly myxin B 10,000 unit/g-de xameth 0.1 % eye oint 10/25 completed Medicati on ID: [id number] Juan Pablo conteh d By Name: Musa Ramirez nd Name: neomycin -polymyx in B-dexame th Send Method: E-Prescr ibed Sub s Allowed: subs OK Speci al Instruct ion: apply to both ear canals TID [facility] cationGe nericNam e: neomycin -polymyx in B-dexame th Not Available Not Available Not Available Ciprodex 0.3 %-0.1 % ear drops,luiz pension 4 drop 10/18 completed Medicati on ID: [id number] D uration Value: 14 Brand Name: Ciprodex Send Method: E-Prescr ibed Sub s Allowed: subs OK Medic ationGen ericName : Ciprodex Medicat ion ID: [id number] D uration Value: 14 Brand Name: Ciprodex [...] topical ointment 10/18 completed Medicati on ID: [id number] D uration Value: 30 Brand Name: Cortispo rin Send Method: E-Prescr ibed Sub s Allowed: subs OK Speci al Instruct ion: apply to bith ears canals three times a day Medi cationGe nericNam e: Cortispo rin Medi cation ID: [id number] D uration Value: 30 Brand Name: Cortispo [...] Diagnosis/Indication Diagnosis SNOMED-CT Code Diagnosis ICD10 Code 17268 TRACEY KAMINSKI MD [facility] [address] [place] [address] 04/04/2024 07:58:18 04/04/2024 08:33:09 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 [id number] 947303 H61.322 Impacted c erumen in left ear [id number] 008837 H61.22 Health Concerns Section Related Observation LastModified by Organization Detai ls LastModified Time None Recorded Concern Status LastModified by Organization Details LastModified Time None Recorded Payers Encounter Date Sequence Insurance Name Policy Number Policy Chi Covered Member ID Chi Member ID Guarantor Name 04/04/2024 2 [facility] INDEMNITY [facility] (MEDICARE SUPPLEMENT) [id number] Maureen Foreman [id number] Maureen Foreman 04/04/2024 1 MEDICARE B-[place]: [facility] [employer] Maureen Foreman [id number] Maureen Foreman Notes Date Note Type [...] accompanied by difficulty hearing. TRACEY KAMINSKI MD [address] [place] [address], [address], [place] - [facility] 04/04/2024 08:38:51 OBGyn Episode No OBEpisode recorded.
--- OUTSIDE RECORDS SUMMARY | 2024-04-21 07:48 | XMS_ITS | Data Portability ---
Author Organization [place] - [facility], Allergy Address [address] [address] Care Team Providers Care Stove Polisher Name Role Phone GRAHAM HARGROVE Primary Care [...] Recorded Time Impacted cerumen in left ear [id number] 50453 Active 2019 Impacted cerumen, left ear; Note: Date Diagnose d: 0 9:06 AM (H61.22) Not Available [facility] 4 02:59:24 Bilatera l diffuse otitis externa [id number] Completed 201912/03/2023 Diffuse otitis externa, bilatera l; Note: Changed from H60.312 to H60.313 ( 0 9:01 AM) , Date Diagnose d: 0 11:52 AM (H60.312 ) Not Available [facility] 4 02:59:21 Cellulit is of both external ears [id number] Completed 201912/03/2023 Cellulit is of external ear, bilatera l; Note: Date Diagnose d: 08/10/2019 9:02 AM (H60.13) Not Available [facility] 4 02:59:22 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 [id number] Active 2019 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 and infectio n; Note: Date Diagnose d: 0 8:43 AM (H61.322 ) Not Available [facility] 4 02:59:21 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 75408173764 Completed 201912/03/2023 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 and infectio n; Note: Date Diagnose d: 0 8:43 AM (H61.321 ) Not Available [facility] 4 02:59:22 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 55904453203 30850 Active 2019 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 and infectio n; Note: Date Diagnose d: 0 8:43 AM (H61.322 ) Not Available [facility] 4 02:59:21 Acute myringit is of right ear 27178179575 87628 Completed 201912/03/2023 Acute myringit is, right ear; Note: Date Diagnose d: 0 10:14 AM (H73.001 ) Not Available [facility] 4 02:59:21 Otitis externa of bilatera l ears [id number] 00236 Completed 201912/03/2023 Other otitis externa, bilatera l; Note: Date Diagnose d: 09/07/2019 10:30 AM (H60.8X3 ) Not Available [facility] 4 02:59:24 Candidal otitis externa 94437491 Active 2022 Candidal otitis externa; Note: Date Diagnose d: 3 8:45 AM (B37.84) Candid al otitis externa; Note: Date Diagnose d: 0 9:31 AM (B37.84) ; Start Date : 05/18/19 20 Not Available [facility] 4 02:59:22 Sensorin eural hearing loss of bilatera l ears 696424579 Active 2020 Sensorin eural hearing loss, bilatera l; Note: Date Diagnose d: 1 9:19 AM (H90.3) Not Available [facility] 4 02:59:25 Impacted cerumen of bilatera l ears 86711536481 78026 Active 2019 Impacted cerumen, bilatera l; Note: Date Diagnose d: 0 9:31 AM (H61.23) Not Available [facility] 4 02:59:23 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 06975566753 Active 2019 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 and infectio n, bilatera l; Note: Date Diagnose d: 0 9:37 AM (H61.323 ) Not Available [facility] 4 02:59:24 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 88770480090 44700 Active 2019 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 and infectio n, bilatera l; Note: Date Diagnose d: 0 9:37 AM (H61.323 ) Not Available [facility] 4 02:59:24 Follow-u p visit Active 2019 Encounte r for follow-u p examinat ion after complete d treatmen t for conditio ns other than malignan t neoplasm ; Note: Date Diagnose d: 11/02/2019 11:14 AM (Z09) Medica l surveill ance followin g complete d treatmen t; Note: Date Diagnose d: 0 9:50 AM (Z09) ; Start Date : 10/30/19 20 Not Available [facility] 4 02:59:25 Problem Notes None recorded. Procedures Surgical History Date Name Laterality Status Provider Name and Address Organization Details Recorded Time 04/04/20 24 Cerumen removal with microscope left completed TRACEY KAMINSKI MD [address] [place] [address],[address], [address], [facility] - [facility] 04/03/2024 07:34:32 01/04/20 24 Cerumen removal with microscope left completed TRACEY KAMINSKI MD [address] [place] [address],[address], [address], [place] - [facility] 01/04/2024 09:06:38 10/19/19 24 Cerumen removal with microscope left completed TRACEY KAMINSKI MD [address] [place] [address],[address], [address], [place] - [facility] 10/19/2023 08:46:23 lithotripsy completed Latha Fu [place] - [facility] 10/19/2023 08:30:53 meatoplasty of external ear completed Latha Fu [place] - [facility] 10/19/2023 08:31:07 Imaging Results Imaging Date Name Status LastModified by [facility] ation Details LastModified Time 09/27/2018 imaging/diagno stic [...] Name and Address Organization Details Recorded Time 196641 cephalexi n monohydra te medicatio n other Not available Not available 09/14/2023 23655 8 RxNorm React ion: unkno wn, unspe cifie d;; Not Available [facility] 4 01:22:48 034258 Substance with sulfonami de structure and antibacte rial mechanism of action (substanc e) medicatio n other Not available Not available 09/14/2023 36048 8003 SNOMED React ion: unkno wn, unspe cifie d;; Not Available [facility] 4 01:22:48 233270 Iodinated contrast media (substanc e) medicatio n Not available Not available Not available 10/19/2023 07574 2003 SNOMED Latha monteiro [place] - [facility] 4 08:29:47 Medications Name Sig Start Date Stop Date Status Note LastModified by Organization Details LastModified Time atorvasta tin 40 mg tablet 02/08 completed Medicati on ID: [id number] D uration Value: 90 Brand Name: atorvast [...] mg tablet 04/04 completed Medicati on ID: [id number] B rand Name: senna Se nd Method: E-Prescr ibed Sub s Allowed: subs OK Speci al Instruct ion: TAKE 2 TABLETS BY MOUTH AT BEDTIME FOR CONSTIPA TION Med icationG enericNa me: senna Not Available Not Available Not Available sucralfat e 100 mg/mL oral suspensio n 04/04 completed Medicati on ID: [id number] B rand Name: sucralfa te Send Method: [...] eye drops 10/18 completed Medicati on ID: [id number] D uration Value: 14 Prescri bed By Name: KELLI Barros nd Name: Ciloxan Send Method: E-Prescr ibed Sub s Allowed: subs OK Speci al Instruct ion: 4 drops into affected ear BID X 14 days Med icationG enericNa me: Ciloxan Medicati on ID: [id number] D uration Value: 14 Prescri bed By Name: KELLI Barros nd Name: Ciloxan Send Method: E-Prescr ibed Sub s Allowed: subs OK Speci al Instruct ion: 4 drops into affected ear BID X 14 days Med icationG enericNa me: Ciloxan Not Available Not Available Not Available ciproflox acin 500 mg tablet 1 tablet by mouth 08/02 completed Medicati on ID: [id number] D uration Value: 10 Prescri bed By [...] layed release 04/04 completed Medicati on ID: [id number] B rand Name: pantopra zole Sen d Method: E-Prescr ibed Sub s Allowed: subs OK [facility] pantopra [facility]ole Not Available Not Available Not Available clotrimaz ole-betam ethasone 1 %-0.05 % topical cream Apply 1 a small amount to affected area three times a day 10/18 completed Medicati on ID: [id number] D uration Value: 14 Prescri bed By Name: Musa Ramirez nd Name: clotrima zole-bet amethaso ne Send Method: E-Prescr ibed Sub s Allowed: subs ELIZABETH Hernandez al Instruct ion: Apply with fingerti p to external ear Medi cationGe nericNam e: clotrima zole-bet amethaso ne Medic ation ID: [id number] D uration Value: 14 Prescri bed By Name: Musa Ramirez nd Name: clotrima zole-bet amethaso ne Send Method: E-Prescr ibed Sub s Allowed: subs OK Speci al Instruct ion: Apply with fingerti p to external ear Medi cationGe nericNam e: clotrima zole-bet amethaso ne Not Available Not Available Not Available clotrimaz ole 1 % topical solution 10/18 completed Medicati on ID: [id number] D uration Value: 14 Brand Name: clotrima zole Sen d Method: E-Prescr ibed Sub s Allowed: subs OK Speci al Instruct ion: 4 drops to affected ear three times a day Medi cationGe nericNam e: clotrima zole Med ication ID: [id number] D uration Value: 14 Brand Name: clotrima [...] affected area 10/18 completed Medicati on ID: [id number] D uration Value: 14 Brand Name: mupiroci n Send Method: E-Prescr ibed Sub s Allowed: subs OK Medic ationGen ericName : mupiroci n Medica tion ID: [id number] D uration Value: 14 Brand Name: mupiroci n Send Method: E-Prescr ibed Sub s Allowed: subs OK Medic ationGen ericName : mupiroci n Not Available Not Available Not Available cefuroxim e axetil 500 mg tablet 1 tablet by mouth 10/18 completed Medicati on ID: [id number] D uration Value: 14 Brand Name: cefuroxi me axetil S end Method: E-Prescr ibed Sub s Allowed: subs OK Medic ationGen ericName : cefuroxi me axetil M edicatio n ID: [id number] D uration Value: 14 Brand Name: cefuroxi me axetil S end Method: E-Prescr ibed Sub s Allowed: subs OK Medic ationGen ericName : cefuroxi me axetil Not Available Not Available Not Available multivita min capsule 2019 active Medicati on ID: [id number] B rand Name: multivit anderson Sen d Method: E-Prescr ibed Sub s Allowed: subs OK Medic ationGen ericName : multivit anderson Not Available Not Available Not Available oxycodone 5 mg tablet 1 tablet by mouth 10/18 completed Medicati on ID: [id number] D uration Value: 3 Brand Name: oxycodon e Send Method: E-Prescr ibed Sub s Allowed: subs OK Medic ationGen ericName : oxycodon e Medica tion ID: [id number] D uration Value: 3 Brand Name: oxycodon e Send Method: E-Prescr ibed Sub s Allowed: subs OK Medic ationGen ericName : oxycodon e Not Available Not Available Not Available neomycin 3.5 mg/g-poly myxin B 10,000 unit/g-de xameth 0.1 % eye oint 10/25 completed Medicati on ID: [id number] P yady d By Name: Musa Ramirez nd Name: neomycin -polymyx in B-dexame th Send Method: E-Prescr ibed Sub s Allowed: subs OK Speci al Instruct ion: apply to both ear canals TID Medi cationGe nericNam e: neomycin -polymyx in B-dexame th Not Available Not Available Not Available Ciprodex 0.3 %-0.1 % ear drops,luiz pension 4 drop 10/18 completed Medicati on ID: [id number] D uration Value: 14 Brand Name: Ciprodex Send Method: E-Prescr ibed Sub s Allowed: subs OK Medic ationGen ericName : Ciprodex Medicat ion ID: [id number] D uration Value: 14 Brand Name: Ciprodex [...] topical ointment 10/18 completed Medicati on ID: [id number] D uration Value: 30 Brand Name: Machopo lisa Send Method: E-Prescr ibed Sub s Allowed: subs OK Speci al Instruct ion: apply to bith ears canals three times a day Medi cationGe nericNam e: Cortispo rin Medi cation ID: [id number] D uration Value: 30 Brand Name: Machopo [...] Code [id number] TRACEY KAMINSKI MD [facility] [address] [address] 10/19/2023 08:21:18 10/21/2023 12:28:05 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 2225365700 349016 H61.322 Impacted c erumen in left ear 5491317850 109338 H61.22 [id number] TRACEY KAMINSKI MD [facility] [address] [address] 01/04/2024 08:33:56 01/04/2024 09:08:18 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 0428153846 648935 H61.322 Impacted c erumen in left ear 3762084722 555645 H61.22 [id number] TRACEY KAMINSKI MD [facility] [address] [address] 04/04/2024 07:58:18 04/04/2024 08:33:09 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 3808942182 595093 H61.322 Impacted c erumen in left ear 3985702390 447852 H61.22 Health Concerns Section Related Observation LastModified by Organization Detai ls LastModified Time None Recorded Concern Status LastModified by Organization Details LastModified Time None Recorded Advance Directives Directive None Recorded Payers Encounter Date Sequence Insurance Name Policy Number Policy Chi Covered Member ID Chi Member ID Guarantor Name 10/19/2023 1 MEDICARE [place]: [facility] Maureen J Williamdaida [id number] Maureen J Williamdziel 10/19/2023 2 UNICARE - SENIOR SERVICES PLAN F (MEDICARE SUPPLEMENT) [id number] Maureen J Williamdziel [id number] Maureen J Kurdziel 01/04/2024 1 MEDICARE [place]: [employer] Maureen J Williamdziel [id number] Maureen J Kurdziel 01/04/2024 2 [employer]IC[employer] - SENIOR SERVICES PLAN F (MEDICARE SUPPLEMENT) [id number] Maureen J Williamdziel [id number] Maureen J Kurdziel 04/04/2024 2 UNICARE - GIC INDEMNITY PLAN (MEDICARE SUPPLEMENT) [id number] Maureen J Williamdziel [id number] Maureen J Kurdziel 04/04/2024 1 MEDICARE B-[place]: [facility] [employer] ([employer]) SERVICES Maureen J Williamdziel [id number] Maureen J Williamdzeyadel Notes Date Note [...] accompanied by difficulty hearing. TRACEY KAMINSKI MD [address] [place] [address],[address], [address], [facility] 10/19/2023 08:51:52 01/04/2024 text/html 83-year-old markus flores presents for cerumen removal. She has a history of bilateral external auditory canals stenosis. Meatoplasty done in 2020 on the right side with resulting resolution of the stenosis on the right. She reports the right ear is feeling great. Recent blockage sensation on the left accompanied by difficulty hearing. TRACEY KAMINSKI MD [address] [facility] [address], [place], [address], [facility] 01/04/2024 09:08:08 04/04/2024 text/html 83-year-old markus flores presents for cerumen removal. She has a history of bilateral external auditory canals stenosis. Meatoplasty done in 2019 on the right side with resulting resolution of the stenosis on the right. She reports the right ear is feeling great. Recent blockage sensation on the left accompanied by difficulty hearing. TRACEY KAMINSKI MD [address] [facility] [address], [place], [address], [facility] 04/04/2024 08:38:51 OBGyn Episode No OBEpisode recorded.
[2024-04-21 08:05] VITALS: BP 144/66; PULSE 76; O2SAT 98; BMI 17.2
--- NOTE | 2024-04-21 08:05 | MHC.OFFVIS ---
Vital Signs 04/21/24 08:05 Height 5 ft 8 in Weight 113 lb 5.082 oz BMI 17.2 BP 144/66 H Blood Pressure Location Rt brachial Position Sitting Pulse 76 Pulse Source Pulse Oximeter Pulse Oximetry (%) 98 Oxygen Delivery Method Room Air Intake Visit Reasons: ~1 mos FUV. Intake Note: ESTABLISHED PATIENT Maureen presents in office today for a scheduled 1 mos FUV. Meds and Allergies reviewed? Y No recent or relevant surgeries? N Any significant concerns or new changes? Pt reports sx mostly at night. NO significant change in presentation. Pt states that they have been sleeping however. Pharmacy verified? [facility] Allergies cephalexin [From KEFLEX] Allergy (Severe, Verified 04/21/24 08:08) RASH Sulfa (Sulfonamide Antibiotics) [SULFA (SULFONAMIDE ANTIBIOTICS)] Allergy (Severe, Verified 04/21/24 08:08) INTSERNAL AND EXTERNAL RASH/INFECTION Iodinated Contrast Media [IV Dye, Iodine Containing] Allergy (Intermediate, Verified 04/21/24 08:08) HIVES,REDNESS + SWELLING sulfamethoxazole [From BACTRIM] Allergy (Intermediate, Verified 04/21/24 08:08) INTERNAL AND EXTERNAL RASH/ INFECTION stent Allergy (Uncoded 01/07/24 08:55) Vomiting HPI HPI ~1 mos FUV.: Details: LAST VISIT: Epigastric pain Weight loss, unintentional GERD (gastroesophageal reflux disease) Plan Patient reports postnasal drip, occasional trouble swallowing. She had thyroid ultrasound done in the beginning of this year. We will send her for soft tissue neck x-ray. Continue current management with Nexium twice a day. Patient may or may not need to use famotidine. She can use it on as needed basis. Continue simethicone as needed and senna if no bowel movement in 1-2 days. Continue current diet add extra protein. Patient can use protein powder with fairlife milk. The ultrafiltration process of the fairlife milk reduces lactose and enhances protein content. There is 50% more protein, 50% less sugar and 30% more calcium than regular milk in 1 serving. Patient will follow-up in 3-4 weeks. Patient is agreeable to current plan of care and verbalizes understanding of instructions. She was given the opportunity to ask questions and all questions answered. ? Thank you for allowing me to participate in her care Orders Orders XR soft tissue neck 03/29/24 K22.2 Medications Refilled famotidine 40 mg PO BEDTIME 90 tabs 3RF simethicone (Gas Relief (simethicone)) 125 mg PO BID-TID PRN 90 tabs 3RF abdominal distention TODAY'S VISIT: Patient is here today for follow-up. Patient reports that she has been feeling well. Occasional burping after dinner but able to sleep through the night. Patient denies any acid reflux. Patient is able to eat more variety of food. Patient saw been senior reliability engineer and they made a list together of what she can eat. Patient is adding different food every week. Patient denies dyspepsia, dysphagia or odynophagia. Denies melena, hematochezia. Denies any nausea or vomiting. Overall patient reports to be feeling well. Soft tissue and neck x-ray results reviewed with patient. No acute processes found. [facility] Medical History Erosive esophagitis Kidney stone GERD (gastroesophageal reflux disease) High cholesterol HTN (hypertension) Surgical History H/O lithotripsy H/O esophagogastroduodenoscopy (07/09/23) Social History Alcohol intake: never Patient Tobacco Use Status: Never used Tobacco Advance Directives Date on File: 09/22/23 Review of Systems Const Denies weight gain and Denies weight loss ENT Reports no additional complaints, Denies dysphagia and Denies odynophagia Card Reports no additional complaints Resp Reports no additional complaints GI Denies abdominal pain, Denies belching, Denies melena, Denies bloating, Denies change in bowel habits, Denies dysphagia, Denies excessive flatus, Denies dyspepsia, Denies heartburn, Denies diarrhea, Denies loose stools, Denies nausea, Denies odynophagia and Denies vomiting Reports no additional complaints Musc Reports no additional complaints Neuro Reports no additional complaints Psych Reports no additional complaints Endo Reports no additional complaints Physical Exam Vital Signs: BMI result Body Mass Index 17.2 Const General: no acute distress Orientation/consciousness: patient oriented x3 Resp Effort & Inspection: normal respiratory effort, able to speak in complete sentences, no tracheal deviation and symmetric chest movement Auscultation: clear to auscultation bilaterally Cardio Rate: regular rate GI Inspection: Yes normal to inspection and No distended Palpation (GI): Soft to palpation, not firm, nontender and No hepatosplenomegaly present Auscultation: normal bowel sounds General: Yes no CVA tenderness Back/Spine/Pelvis Back: no CVA tenderness Skin General skin exam: elasticity normal, turgor normal and dry skin Neuro General: patient oriented x3 Psych Appearance: grossly normal Mental Status: mental status grossly normal Assessment & Plan Assessment & Plan (1) Epigastric pain: Code(s): R10.13 - Epigastric pain Category: Medical (2) Weight loss, unintentional: Code(s): R63.4 - Abnormal weight loss Category: Medical (3) GERD (gastroesophageal reflux disease): Code(s): K21.9 - Gastro-esophageal reflux disease without esophagitis Qualifiers: Esophagitis presence: with esophagitis Esophagitis bleeding: without hemorrhage Qualified Code(s): K21.00 - Gastro-esophageal reflux disease with esophagitis, without bleeding Plan Continue Nexium twice a day and Pepcid at bedtime. Avoid dietary triggers. Recommended smaller meals and more often. Staying upright for minimum 3 hours after meals discussed with her. Introduce food slowly per her senior reliability engineer recommendations. Continue potassium. Follow-up in 3-4 weeks. Patient is to call if she will have any GI concerning symptoms. She is agreeable to plan of care and verbalizes understanding of instructions. She was given the opportunity to ask questions and all questions answered. Thank you for allowing me to participate in her care Coding Level of Care Code Est Pt Level 3 (08837) Diagnoses Epigastric pain R10.13 Weight loss, unintentional R63.4 Gastroesophageal reflux disease with esophagitis without hemorrhage K21.00 Esophagitis presence: with esophagitis Esophagitis bleeding: without hemorrhage Time Spent (min) 25 Comment 15 minutes spent with patient and additional 10 minutes spent reviewing her records
== END 2024-04-21 08:59 | disposition home or self-care (01) ==
PROVIDERS: PCP Internal Medicine; Visit Provider Nurse Practitioner Family
DX: R10.13 Epigastric pain (principal); R63.4 Abnormal weight loss; K21.00 Gastro-esophageal reflux disease with esophagitis, without bleeding
CPT/HCPCS: 99213

== ENCOUNTER → 2024-04-21 07:46 | Outpatient (BNVA) | payer MEDICARE, OTHER, SELFPAY | PROVIDERS: PCP Internal Medicine; Visit Provider Nurse Practitioner Family | DX: K21.9 Gastro-esophageal reflux disease without esophagitis (principal); K21.00 Gastro-esophageal reflux disease with esophagitis, without bleeding; R10.13 Epigastric pain; R63.4 Abnormal weight loss | CPT/HCPCS: 99212 ==

== ENCOUNTER 2024-04-24 07:38 | Outpatient (REF) | payer MEDICARE, OTHER, SELFPAY ==
--- OUTSIDE RECORDS SUMMARY | 2024-04-24 07:40 | XMS_ITS | Continuity of Care Document ---
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 Plan of Treatment [...] Recorded Time Impacted cerumen in left ear [id number] 03761 Active 2019 Impacted cerumen, left ear; Note: Date Diagnose d: 0 9:06 AM (H61.22) Not Available [facility] 4 02:59:24 Bilatera l diffuse otitis externa [id number] 24305 Completed 201912/03/2023 Diffuse otitis externa, bilatera l; Note: Changed from H60.312 to H60.313 ( 0 9:01 AM) , Date Diagnose d: 0 11:52 AM (H60.312 ) Not Available [facility] 4 02:59:21 Cellulit is of both external ears [id number] 05321 Completed 201912/03/2023 Cellulit is of external ear, bilatera l; Note: Date Diagnose d: 08/10/2019 9:02 AM (H60.13) Not Available [facility] 4 02:59:22 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 37749230268 46139 Active 2019 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 and infectio n; Note: Date Diagnose d: 0 8:43 AM (H61.322 ) Not Available [facility] 4 02:59:21 Acute myringit is of right ear 01240922365 05600 Completed 201912/03/2023 Acute myringit is, right ear; Note: Date Diagnose d: 0 10:14 AM (H73.001 ) Not Available [facility] 4 02:59:21 Otitis externa of bilatera l ears 60875287926 55640 Completed 201912/03/2023 Other otitis externa, bilatera l; Note: Date Diagnose d: 09/07/2019 10:30 AM (H60.8X3 ) Not Available [facility] 4 02:59:24 Candidal otitis externa 73773518 Active 2022 Candidal otitis externa; Note: Date Diagnose d: 3 8:45 AM (B37.84) Candid al otitis externa; Note: Date Diagnose d: 0 9:31 AM (B37.84) ; Start Date : 05/18/19 20 Not Available [facility] 4 02:59:22 Sensorin eural hearing loss of bilatera l ears 020306102 Active 2020 Sensorin eural hearing loss, bilatera l; Note: Date Diagnose d: 1 9:19 AM (H90.3) Not Available [facility] 4 02:59:25 Impacted cerumen of bilatera l ears 84049127604 Active 2019 Impacted cerumen, bilatera l; Note: Date Diagnose d: 0 9:31 AM (H61.23) Not Available [facility] 4 02:59:23 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 4 02:59:24 Follow-u p visit Active 2019 Encounte r for follow-u p examinat ion after complete d treatmen t for conditio ns other than malignan t neoplasm ; Note: Date Diagnose d: 11/02/2019 11:14 AM (Z09) Medica l surveill ance followin g complete d treatmen t; Note: Date Diagnose d: 0 9:50 AM (Z09) ; Start Date : 10/30/19 20 Not Available [facility] 02:59:25 Problem Notes None recorded. Procedures Surgical History Date Name Laterality Status Provider Name and Address Organization Details Recorded Time 04/04/20 24 Cerumen removal with microscope left completed TRACEY KAMINSKI MD [address] [facility] [address], [place], [address], [place] - [facility] 04/03/2024 07:34:32 01/04/20 24 Cerumen removal with microscope left completed TRACEY KAMINSKI MD [address] [facility],[address], [address], [place] - [facility] 01/04/2024 09:06:38 10/19/19 24 Cerumen removal with microscope left completed TRACEY KAMINSKI MD [address] [facility],[address], [address], [place] - [facility] 10/19/2023 08:46:23 lithotripsy completed Latha Fu [place] - [facility] 10/19/2023 08:30:53 meatoplasty of external ear completed Latha Fu [place] - [facility] 10/19/2023 08:31:07 Imaging Results None recorded. Procedure Notes None recorded. Medical Equipment None Reported. Allergies Allergen ID Allergen Name Allergen Category Reaction Reaction Severity Criticality Documentation Date Start Date Code Code System Note Provider Name and Address Organization Details Recorded Time 738936 cephalexi n monohydra te medicatio n other Not available Not available 09/14/2023 04420 8 RxNorm React ion: unkno wn, unspe cifie d;; Not Available [facility] 4 01:22:48 357526 Substance with sulfonami de structure and antibacte rial mechanism of action (substanc e) medicatio n other Not available Not available 09/14/2023 99063 8003 SNOMED React ion: unkno wn, unspe cifie d;; Not Available [facility] 4 01:22:48 317700 Iodinated contrast media (substanc e) medicatio n Not available Not available Not available 10/19/2023 36880 2003 SNOMED Latha Fu null, [place] - [facility] 4 08:29:47 Medications Name Sig Start Date Stop Date Status Note LastModified by Organization Details LastModified Time atorvasta tin 40 mg tablet 02/08 completed Medicati on ID: [id number] D uration Value: 90 Brand Name: atorvast [...] mg tablet 04/04 completed Medicati on ID: [id number] B rand Name: senkristine Se nd Method: E-Prescr ibed Sub s Allowed: subs OK Speci al Instruct ion: TAKE 2 TABLETS BY MOUTH AT BEDTIME FOR CONSTIPA TION Med icationG enericNa me: senna Not Available Not Available Not Available sucralfat e 100 mg/mL oral suspensio n 04/04 completed Medicati on ID: [id number] B rand Name: sucralfa te Send Method: [...] eye drops 10/18 completed Medicati on ID: [id number] D uration Value: 14 Prescri bed By Name: KELLI Barros nd Name: Ciloxan Send Method: E-Prescr ibed Sub s Allowed: subs OK Speci al Instruct ion: 4 drops into affected ear BID X 14 days Med icationG enericNa me: Ciloxan Medicati on ID: [id number] D uration Value: 14 Prescri bed By Name: Yudith FelicianoKELLI harrison nd Name: Ciloxan Send Method: E-Prescr ibed Sub s Allowed: subs OK Speci al Instruct ion: 4 drops into affected ear BID X 14 days Med icationG enericNa me: Ciloxan Not Available Not Available Not Available ciproflox acin 500 mg tablet 1 tablet by mouth 08/02 completed Medicati on ID: [id number] D uration Value: 10 Prescri bed By [...] layed release 04/04 completed Medicati on ID: [id number] B rand Name: pantopra zole Sen d Method: E-Prescr ibed Sub s Allowed: subs OK Medic ationGen ericName : pantopra zole Not Available Not Available Not Available clotrimaz ole-betam ethasone 1 %-0.05 % topical cream Apply 1 a small amount to affected area three times a day 10/18 completed Medicati on ID: [id number] D uration Value: 14 Prescri bed By Name: Musa Ramirez nd Name: clotrima zole-bet amethaso ne Send Method: E-Prescr ibed Sub s Allowed: subs OK Speci al Instruct ion: Apply with fingerti p to external ear Medi cationGe nericNam e: clotrima zole-bet amethaso ne Medic ation ID: [id number] D uration Value: 14 Prescri bed By Name: Tracey Kaminski M.D. Bra nd Name: huongrijamil horowitze-bet amethbreezyo ne Send Method: E-Prescr ibed Sub s Allowed: subs OK Speci al Instruct ion: Apply with fingerti p to external ear Medi cationGe nericNam e: clotrima zole-bet amethaso ne Not Available Not Available Not Available clotrimaz ole 1 % topical solution 10/18 completed Medicati on ID: [id number] D uration Value: 14 Brand Name: clotrima zolkamran Sen d Method: E-Prescr ibed Sub s Allowed: subs OK Speci al Instruct ion: 4 drops to affected ear three times a day Medi cationGe nericNam e: clotrima zole Med ication ID: [id number] D uration Value: 14 Brand Name: clotrijamil [...] affected area 10/18 completed Medicati on ID: [id number] D uration Value: 14 Brand Name: mupiroci n Send Method: E-Prescr ibed Sub s Allowed: subs OK Medic ationGen ericName : mupiroci n Medica tion ID: [id number] D uration Value: 14 Brand Name: mupiroci n Send Method: E-Prescr ibed Sub s Allowed: subs OK Medic ationGen ericName : mupiroci n Not Available Not Available Not Available cefuroxim e axetil 500 mg tablet 1 tablet by mouth 10/18 completed Medicati on ID: [id number] D uration Value: 14 Brand Name: cefuroxi me axetil S end Method: E-Prescr ibed Sub s Allowed: subs OK Medic ationGen ericName : cefuroxi me axetil M eddyo n ID: [id number] D uration Value: 14 Brand Name: cefuroxi me axetil S end Method: E-Prescr ibed Sub s Allowed: subs OK Medic ationGen ericName : cefuroxi me axetil Not Available Not Available Not Available multivita min capsule 2019 active Medicati on ID: [id number] B rand Name: multivit anderson Sen d Method: E-Prescr ibed Sub s Allowed: subs OK Medic ationGen ericName : multivit anderson Not Available Not Available Not Available oxycodone 5 mg tablet 1 tablet by mouth 10/18 completed Medicati on ID: [id number] D uration Value: 3 Brand Name: oxycodon e Send Method: E-Prescr ibed Sub s Allowed: subs OK Medic ationGen ericName : oxycodon e Medica tion ID: [id number] D uration Value: 3 Brand Name: oxycodon e Send Method: E-Prescr ibed Sub s Allowed: subs OK Medic ationGen ericName : oxycodon e Not Available Not Available Not Available neomycin 3.5 mg/g-poly myxin B 10,000 unit/g-de xameth 0.1 % eye oint 10/25 completed Medicati on ID: [id number] Juan Pablo conteh d By Name: Musa Ramirez nd Name: neomycin -polymyx in B-dexame th Send Method: E-Prescr ibed Sub s Allowed: subs OK Speci al Instruct ion: apply to both ear canals TID [facility] cationGe nericNam e: neomycin -polymyx in B-dexame th Not Available Not Available Not Available Ciprodex 0.3 %-0.1 % ear drops,luiz pension 4 drop 10/18 completed Medicati on ID: [id number] D uration Value: 14 Brand Name: Ciprodex Send Method: E-Prescr ibed Sub s Allowed: subs OK Medic ationGen ericName : Ciprodex Medicat ion ID: [id number] D uration Value: 14 Brand Name: Ciprodex [...] topical ointment 10/18 completed Medicati on ID: [id number] D uration Value: 30 Brand Name: Cortispo rin Send Method: E-Prescr ibed Sub s Allowed: subs OK Speci al Instruct ion: apply to bith ears canals three times a day Medi cationGe nericNam e: Cortispo rin Medi cation ID: [id number] D uration Value: 30 Brand Name: Cortispo [...] Diagnosis/Indication Diagnosis SNOMED-CT Code Diagnosis ICD10 Code 87549 TRACEY KAMINSKI MD [facility] [address] [place] [address] 04/04/2024 07:58:18 04/04/2024 08:33:09 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 [id number] 913097 H61.322 Impacted c erumen in left ear [id number] 838156 H61.22 Health Concerns Section Related Observation LastModified by Organization Detai ls LastModified Time None Recorded Concern Status LastModified by Organization Details LastModified Time None Recorded Payers Encounter Date Sequence Insurance Name Policy Number Policy Chi Covered Member ID Chi Member ID Guarantor Name 04/04/2024 2 [facility] INDEMNITY PLAN (MEDICARE SUPPLEMENT) [id number] Maureen Foreman [id number] Maureen Foreman 04/04/2024 1 MEDICARE B-[place]: [facility] [employer] SERVICES Maureen Foreman [id number] Maureen Foreman Notes Date Note Type [...] accompanied by difficulty hearing. TRACEY KAMINSKI MD [address] [place] [address], [address], [place] - [facility] 04/04/2024 08:38:51 OBGyn Episode No OBEpisode recorded.
== END 2024-04-24 07:39 | disposition home or self-care (01) ==
LOC: HO.MAMMO 07:38
PROVIDERS: PCP Internal Medicine; Visit Provider Internal Medicine
DX: Z12.31 Encounter for screening mammogram for malignant neoplasm of breast (principal)
CPT/HCPCS: 77063; 77067

== ENCOUNTER → 2024-04-24 08:00 | Outpatient (BNV) | payer MEDICARE, OTHER, SELFPAY | PROVIDERS: PCP Internal Medicine; Visit Provider Internal Medicine | DX: Z12.31 Encounter for screening mammogram for malignant neoplasm of breast (principal) | CPT/HCPCS: 77063; 77067 ==

== ENCOUNTER 2024-05-09 10:51 | Outpatient (REF) | payer MEDICARE, OTHER, SELFPAY ==
[2024-05-09 10:53] LABS: MANUAL DIFF FLAG NO
[2024-05-09 11:10] LABS: Basophils Percent Auto 1.1 % (0-2); Eosinophils Absolute Auto 0.1 X10*3/uL (0.0-0.4); Eosinophils Percent Auto 2.9 % (0-4); Hematocrit 46.9 % (37.0-47.0); Hemoglobin 15.4 g/dl (12.0-16.0); Lymphocytes Absolute Auto 0.8 X10*3/uL (1.2-4.9); Lymphocytes Percent Auto 28.6 % (20-40); Mean Corpuscular HGB Conc 32.8 g/dl (31.0-35.0); Mean Corpuscular Hemoglobin 30.5 pg (27.0-33.0); Mean Corpuscular Volume 92.9 fL (80.0-98.0); Mean Platelet Volume 10.6 fL (9.4-12.3); Monocytes Absolute Auto 0.4 X10*3/uL (0.1-1.2); Neutrophils Absolute Auto 1.5 x10*3/uL (2.0-8.3); Neutrophils Percent Auto 54.4 % (45-73); Platelet Count 165 X10*3/uL (160-400); Red Blood Count 5.05 X10*6/uL (4.20-5.50); Red Cell Distribution Width 14.1 % (11.0-16.0); White Blood Count 2.8 X10*3/uL (4.8-10.8)
[2024-05-09 11:26] LABS: Potassium 3.9 mmol/L (3.3-5.1)
--- OUTSIDE RECORDS SUMMARY | 2024-05-09 12:08 | XMS_ITS ---
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 Role Phone Alton Durham Primary Care Provider [phone] ALLERGIES Allergen (clinical drug ingredient) Drug/Non Drug Allergy documented on EMR Reaction Allergy Type Onset Date Status Keflex rash Drug Allergy Active ciprofloxacin Cipro rash and myalgia Drug Allergy Active sulfamethoxazole / trimethoprim Bactrim hives over entire body Drug Allergy Active ivp dye (uncoded) rash Allergy Ac tive REASON FOR VISIT Discuss future labs MEDICATIONS Medication SIG (Take, Route, Frequency, Duration) Notes Start Date End Date Status Famotidine 40 MG 1 tablet at bedtime Orally Once a day for 30 day(s) Not-Taking Tylenol Extra Strength 500 MG 1 tablet as needed Orally every 6 hrs Not-Taking Ondansetron HCl 4 MG 1 tablet Orally Onc e a day for 20 days 05/07/2023 Not-Taking Protonix 40 MG 1 TABLET ONCE A DAY ORALLY 90 DAYS Not-Taking Valtrex 1 GM 1 tablet Orally 3 ti mes per day for 7 days 10/23/2016 Not-Taking ZyrTEC 10 MG 1 tablet Orally Once a day for 30 day(s) Not-Taking Multi Vitamin/Minerals as directed Orally Active Rosuvastatin Calcium 40 MG take 1 tablet by mouth every day Orally Once a day Active NexIUM 20 MG 1 capsule Orally twi ce a day Active Potassium Chloride 20 MEQ TAKE 1 PACKET AND MIX IN LIQUID AND DRINK BY MOUTH DAILY DIRECTED Orally QOD Active Vitamin B-6 50 MG 1 tablet Orally for 30 day(s) Active VITAL SIGNS BMI 17.79 kg/m2 04/14/2024 Blood pressure systolic 126 mm Hg 04/14/20 24 Blood pressure diastolic 60 mm Hg 024 Height 68 in 04/14/2024 Weight 117 lbs 04/14/2024 weight is up 5 pounds since 03-14-24 Encounters Encounter Location Date Provider Diagnosis Alton Durham MD [address] [place] [address] [address] [place], [place] [phone] 04/14/2024 Alton Durham Neutropenia D70.9 an d Gastroesophageal reflux disease with esophagitis without hemorrhage K21.00 ASSESSMENTS Encounter Date Diagnosis Assessment Notes Treatment Notes Treatment Clinical Notes 04/14/2024 Neutropenia (ICD-10 - D70.9) we are going to repeat her cbc but her wbc has been runnning low for years with a normal differential. 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 PLAN OF TREATMENT Treatment Notes Assessment Notes Neutropenia we are going to repe at her cbc but her wbc has been runnning low for years with a normal differential. may be related to her malnutrition from not being able to ear Gastroesophageal reflux dise ase with esophagitis without hemorrhage doing a little better/ eating a little better. Pending Test Test Name Order Date Complete Blood Count Auto Diff Potassium 04/14/2024 Next Appt Details Follow Up: 6 Weeks, Reason: Provider Name:Alton wick, 05/25/2024 10:15:00 AM, [address] [facility], [address], [place], [place], [phone], Provider Name:Alton wick, 08/31/2024 07:00:00 AM, [address] [place] [address], [address], [place], [place], [phone], Provider Name:Alton Almeida Marisel wick, 09/05/2024 08:45:00 AM, [address] [place] [address], [address], [place], [phone], Provider Name:Alton Juan Pablo Marisel wick, 03/09/2025 07:45:00 AM, [address] [place] [address], [address], [place], [phone], Provider Name:Alton wick, 03/16/2025 08:00:00 AM, [address] [place] [address], [address], [place], [phone], Progress Notes * Examination Category Sub-Category Detail Notes General Examination GENERAL APPEARANCE: well dev eloped, well nourished , female HEAD: normocephalic HEART: regular rate and rhy thm , no murmurs, rubs, gallops LUNGS: no wheezes, rales, r honchi , good air movement , clear to auscultation bilaterally ABDOMEN: no hepatosplenomegal y SKIN: good turgor
--- OUTSIDE RECORDS SUMMARY | 2024-05-09 12:09 | XMS_ITS ---
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 Phone JeimyAlton staley Primary Care Provider [phone] RESULTS Component Value Reference Range Notes Complete Blood Count Auto Di ff Reviewed date:04/04/2024 12:44:09 PM Interpretation: Performing Lab:[facility], [address] [place] [phone] Notes/Report: White Blood Count 2.7 4.8-10.8 X10*3/uL [...] Potassium Reviewed date:04/04/2024 12:47:19 PM Interpretation: Performing Lab:[facility], [address] [place] [phone] Notes/Report: Potassium 3.9 3.3-5.1 mmol/L REASON FOR VISIT CBC, Potassium Encounters Encounter Location Date Provider Diagnosis Alton Durham MD [address] [place] [address] [place] [phone] 04/04/2024 Alton Durham Neutropenia D70.9 ASSESSMENTS Encounter Date Diagnosis Assessment Notes Treatment Notes Treatment Clinical Notes 04/04/2024 Neutropenia (ICD-10 - D70.9) PLAN OF TREATMENT Next Appt Details Provider Name:Alton wick, 05/25/2024 10:15:00 AM, [address] [place] [address], [address] [place] [address], [phone], Provider Name:Alton wick, 08/31/2024 07:00:00 AM, [address] [place] [address], [address], [phone], Provider Name:Alton wick, 09/05/2024 08:45:00 AM, [address] [place] [address], [address], [place], [phone], Provider Name:Alton wick, 03/09/2025 07:45:00 AM, [address] [place] [address], [address], [place], [phone], Provider Name:Alton wick, 03/16/2025 08:00:00 AM, [address] [place] [address], [address], [place], [phone],
--- OUTSIDE RECORDS SUMMARY | 2024-05-09 12:09 | XMS_ITS | Continuity of Care Document ---
Author Organization [place] - [facility], [facility] Address [address] [place] [address] Care Team Providers Care Mcat Instructor Name Role Phone GRAHAM HARGROVE Primary Care [...] Recorded Time Impacted cerumen in left ear [id number] 78680 Active 2019 Impacted cerumen, left ear; Note: Date Diagnose d: 0 9:06 AM (H61.22) Not Available [facility] 4 02:59:24 Bilatera l diffuse otitis externa [id number] 26234 Completed 201912/03/2023 Diffuse otitis externa, bilatera l; Note: Changed from H60.312 to H60.313 ( 0 9:01 AM) , Date Diagnose d: 0 11:52 AM (H60.312 ) Not Available [facility] 4 02:59:21 Cellulit is of both external ears [id number] 42859 Completed 201912/03/2023 Cellulit is of external ear, bilatera l; Note: Date Diagnose d: 08/10/2019 9:02 AM (H60.13) Not Available [facility] 4 02:59:22 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 [id number] 34879 Active 2019 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 and infectio n; Note: Date Diagnose d: 0 8:43 AM (H61.322 ) Not Available [facility] 4 02:59:21 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 [id number] 95959 Completed 201912/03/2023 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 and infectio n; Note: Date Diagnose d: 0 8:43 AM (H61.321 ) Not Available [facility] 4 02:59:22 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 48603765525 09154 Active 2019 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 and infectio n; Note: Date Diagnose d: 0 8:43 AM (H61.322 ) Not Available [facility] 4 02:59:21 Acute myringit is of right ear [id number] 20227 Completed 201912/03/2023 Acute myringit is, right ear; Note: Date Diagnose d: 0 10:14 AM (H73.001 ) Not Available [facility] 4 02:59:21 Otitis externa of bilatera l ears 24109316927 50293 Completed 201912/03/2023 Other otitis externa, bilatera l; Note: Date Diagnose d: 09/07/2019 10:30 AM (H60.8X3 ) Not Available [facility] 4 02:59:24 Candidal otitis externa 74804216 Active 2022 Candidal otitis externa; Note: Date Diagnose d: 3 8:45 AM (B37.84) Candid al otitis externa; Note: Date Diagnose d: 0 9:31 AM (B37.84) ; Start Date : 05/18/19 20 Not Available [facility] 4 02:59:22 Sensorin eural hearing loss of bilatera l ears 982077187 Active 2020 Sensorin eural hearing loss, bilatera l; Note: Date Diagnose d: 1 9:19 AM (H90.3) Not Available [facility] 4 02:59:25 Impacted cerumen of bilatera l ears 06196457253 Active 2019 Impacted cerumen, bilatera l; Note: Date Diagnose d: 0 9:31 AM (H61.23) Not Available [facility] 4 02:59:23 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 [id number] 53786 Active 2019 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 and infectio n, bilatera l; Note: Date Diagnose d: 0 9:37 AM (H61.323 ) Not Available [facility] 4 02:59:24 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 57303668532 08568 Active 2019 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 Procedures Surgical History Date Name Laterality Status Provider Name and Address Organization Details Recorded Time 04/04/20 24 Cerumen removal with microscope left completed TRACEY KAMINSKI MD [address] [facility] [address] [address], [place], [address], [place] - [facility] 04/03/2024 07:34:32 01/04/20 24 Cerumen removal with microscope left completed TRACEY KAMINSKI MD [address] [facility],[address], [address], [place] - [facility] 01/04/2024 09:06:38 10/19/19 24 Cerumen removal with microscope left completed TRACEY KAMINSKI MD [address] [facility],[address], [address], [place] - [facility] 10/19/2023 08:46:23 lithotripsy completed Latha Fu [place] - [facility] 10/19/2023 08:30:53 meatoplasty of external ear completed Latha Fu [place] - [facility] 10/19/2023 08:31:07 Imaging Results None recorded. Procedure Notes None recorded. Medical Equipment None Reported. Allergies Allergen ID Allergen Name Allergen Category Reaction Reaction Severity Criticality Documentation Date Start Date Code Code System Note Provider Name and Address Organization Details Recorded Time 043006 cephalexi n monohydra te medicatio n other Not available Not available 09/14/2023 77231 8 RxNorm React ion: unkno wn, unspe cifie d;; Not Available [facility] 4 01:22:48 303524 Substance with sulfonami de structure and antibacte rial mechanism of action (substanc e) medicatio n other Not available Not available 09/14/2023 20029 8003 SNOMED React ion: unkno wn, unspe cifie d;; Not Available [facility] 4 01:22:48 134677 Iodinated contrast media (substanc e) medicatio n Not available Not available Not available 10/19/2023 15942 2003 SNOMED Latha Fu null, [place] - [facility] 4 08:29:47 Medications Name Sig Start Date Stop Date Status Note LastModified by Organization Details LastModified Time atorvasta tin 40 mg tablet 02/08 completed Medicati on ID: [id number] D uration Value: 90 Brand Name: atorvast [...] mg tablet 04/04 completed Medicati on ID: [id number] B rand Name: senkristine Se nd Method: E-Prescr ibed Sub s Allowed: subs OK Speci al Instruct ion: TAKE 2 TABLETS BY MOUTH AT BEDTIME FOR CONSTIPA TION Med icationG enericNa me: senna Not Available Not Available Not Available sucralfat e 100 mg/mL oral suspensio n 04/04 completed Medicati on ID: [id number] B rand Name: sucralfa te Send Method: [...] eye drops 10/18 completed Medicati on ID: [id number] D uration Value: 14 Prescri bed By Name: KELLI Barros nd Name: Ciloxan Send Method: E-Prescr ibed Sub s Allowed: subs OK Speci al Instruct ion: 4 drops into affected ear BID X 14 days Med icationG enericNa me: Ciloxan Medicati on ID: [id number] D uration Value: 14 Prescri bed By Name: Yudith FelicianoKELLI harrison nd Name: Ciloxan Send Method: E-Prescr ibed Sub s Allowed: subs OK Speci al Instruct ion: 4 drops into affected ear BID X 14 days Med icationG enericNa me: Ciloxan Not Available Not Available Not Available ciproflox acin 500 mg tablet 1 tablet by mouth 08/02 completed Medicati on ID: [id number] D uration Value: 10 Prescri bed By [...] layed release 04/04 completed Medicati on ID: [id number] B rand Name: pantopra zole Sen d Method: E-Prescr ibed Sub s Allowed: subs OK Medic ationGen ericName : pantopra zole Not Available Not Available Not Available clotrimaz ole-betam ethasone 1 %-0.05 % topical cream Apply 1 a small amount to affected area three times a day 10/18 completed Medicati on ID: [id number] D uration Value: 14 Prescri bed By Name: Musa Ramirez nd Name: clotrima zole-bet amethaso ne Send Method: E-Prescr ibed Sub s Allowed: subs OK Speci al Instruct ion: Apply with fingerti p to external ear Medi cationGe nericNam e: clotrima zole-bet amethaso ne Medic ation ID: [id number] D uration Value: 14 Prescri bed By Name: Tracey Kaminski M.D. Bra nd Name: huongrijaiml horowitze-bet amethbreezyo ne Send Method: E-Prescr ibed Sub s Allowed: subs OK Speci al Instruct ion: Apply with fingerti p to external ear Medi cationGe nericNam e: clotrima zole-bet amethaso ne Not Available Not Available Not Available clotrimaz ole 1 % topical solution 10/18 completed Medicati on ID: [id number] D uration Value: 14 Brand Name: clotrima zolkamran Sen d Method: E-Prescr ibed Sub s Allowed: subs OK Speci al Instruct ion: 4 drops to affected ear three times a day Medi cationGe nericNam e: clotrima zole Med ication ID: [id number] D uration Value: 14 Brand Name: clotrijamil [...] affected area 10/18 completed Medicati on ID: [id number] D uration Value: 14 Brand Name: mupiroci n Send Method: E-Prescr ibed Sub s Allowed: subs OK Medic ationGen ericName : mupiroci n Medica tion ID: [id number] D uration Value: 14 Brand Name: mupiroci n Send Method: E-Prescr ibed Sub s Allowed: subs OK Medic ationGen ericName : mupiroci n Not Available Not Available Not Available cefuroxim e axetil 500 mg tablet 1 tablet by mouth 10/18 completed Medicati on ID: [id number] D uration Value: 14 Brand Name: cefuroxi me axetil S end Method: E-Prescr ibed Sub s Allowed: subs OK Medic ationGen ericName : cefuroxi me axetil M eddyo n ID: [id number] D uration Value: 14 Brand Name: cefuroxi me axetil S end Method: E-Prescr ibed Sub s Allowed: subs OK Medic ationGen ericName : cefuroxi me axetil Not Available Not Available Not Available multivita min capsule 2019 active Medicati on ID: [id number] B rand Name: multivit anderson Sen d Method: E-Prescr ibed Sub s Allowed: subs OK Medic ationGen ericName : multivit anderson Not Available Not Available Not Available oxycodone 5 mg tablet 1 tablet by mouth 10/18 completed Medicati on ID: [id number] D uration Value: 3 Brand Name: oxycodon e Send Method: E-Prescr ibed Sub s Allowed: subs OK Medic ationGen ericName : oxycodon e Medica tion ID: [id number] D uration Value: 3 Brand Name: oxycodon e Send Method: E-Prescr ibed Sub s Allowed: subs OK Medic ationGen ericName : oxycodon e Not Available Not Available Not Available neomycin 3.5 mg/g-poly myxin B 10,000 unit/g-de xameth 0.1 % eye oint 10/25 completed Medicati on ID: [id number] Juan Pablo conteh d By Name: Musa Ramirez nd Name: neomycin -polymyx in B-dexame th Send Method: E-Prescr ibed Sub s Allowed: subs OK Speci al Instruct ion: apply to both ear canals TID [facility] cationGe nericNam e: neomycin -polymyx in B-dexame th Not Available Not Available Not Available Ciprodex 0.3 %-0.1 % ear drops,luiz pension 4 drop 10/18 completed Medicati on ID: [id number] D uration Value: 14 Brand Name: Ciprodex Send Method: E-Prescr ibed Sub s Allowed: subs OK Medic ationGen ericName : Ciprodex Medicat ion ID: [id number] D uration Value: 14 Brand Name: Ciprodex [...] topical ointment 10/18 completed Medicati on ID: [id number] D uration Value: 30 Brand Name: Cortispo rin Send Method: E-Prescr ibed Sub s Allowed: subs OK Speci al Instruct ion: apply to bith ears canals three times a day Medi cationGe nericNam e: Cortispo rin Medi cation ID: [id number] D uration Value: 30 Brand Name: Cortispo [...] Diagnosis/Indication Diagnosis SNOMED-CT Code Diagnosis ICD10 Code Diagnosis Note [id number] TRACEY KAMINSKI MD [facility] [address] [place] [address] 04/04/2024 07:58:18 04/04/2024 08:33:09 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 The left meatus remains narrow, resulting in cerumen impaction which was removed today under the binocular microscope . No signs of acute or chronic inflammati on today. Once again we discussed that she is a good candidate for left-sided meatoplast y, but she has been dealing with some esophageal issues recently and wants to postpone any considerat ion of surgery at the moment. Patient will follow-up in 3 months for next disimpacti on with me, but I explained that I will be having her follow-up with a physician instructional assistant going forward for cerumen removal. She is always welcome to come back to see me if she wants to proceed with left-sided meatoplast y. Impacted c erumen in left ear [id number] 130169 H61.22 Health Concerns Section Related Observation LastModified by Organization Detai ls LastModified Time None Recorded Concern Status LastModified by Organization Details LastModified Time None Recorded Payers Encounter Date Sequence Insurance Name Policy Number Policy Chi Covered Member ID Chi Member ID Guarantor Name 04/04/2024 2 [facility] IN[facility]MNITY [facility] (MEDICARE SUPPLEMENT) [id number] Maureen Foreman [id number] Maureen Foreman 04/04/2024 1 MEDICARE B-[place]: [facility] [employer] Maureen Foreman [id number] Maureen Foreman Notes Date Note Type [...] by difficulty hearing. TRACEY KAMINSKI MD [address], [address], [facility] - [facility] 04/04/2024 08:38:51 OBGyn Episode No OBEpisode recorded.
--- OUTSIDE RECORDS SUMMARY | 2024-05-09 12:09 | XMS_ITS | Data Portability ---
Author Organization [place] - [facility], Allergy Address [address] [address] Care Team Providers Care Critical Care Unit Nurse Name Role Phone GRAHAM HARGROVE Primary Care Provider [phone] Assessment No assessment recorded. Plan of Treatment [...] Recorded Time Impacted cerumen in left ear [id number] 06716 Active 2019 Impacted cerumen, left ear; Note: Date Diagnose d: 0 9:06 AM (H61.22) Not Available [facility] 4 02:59:24 Bilatera l diffuse otitis externa [id number] Completed 201912/03/2023 Diffuse otitis externa, bilatera l; Note: Changed from H60.312 to H60.313 ( 0 9:01 AM) , Date Diagnose d: 0 11:52 AM (H60.312 ) Not Available [facility] 4 02:59:21 Cellulit is of both external ears [id number] Completed 201912/03/2023 Cellulit is of external ear, bilatera l; Note: Date Diagnose d: 08/10/2019 9:02 AM (H60.13) Not Available [facility] 4 02:59:22 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 [id number] Active 2019 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 and infectio n; Note: Date Diagnose d: 0 8:43 AM (H61.322 ) Not Available [facility] 4 02:59:21 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 [id number] Completed 201912/03/2023 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 and infectio n; Note: Date Diagnose d: 0 8:43 AM (H61.321 ) Not Available [facility] 4 02:59:22 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 36415171158 87320 Active 2019 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 and infectio n; Note: Date Diagnose d: 0 8:43 AM (H61.322 ) Not Available [facility] 4 02:59:21 Acute myringit is of right ear [id number] 36617 Completed 201912/03/2023 Acute myringit is, right ear; Note: Date Diagnose d: 0 10:14 AM (H73.001 ) Not Available [facility] 4 02:59:21 Otitis externa of bilatera l ears 62409066967 89515 Completed 201912/03/2023 Other otitis externa, bilatera l; Note: Date Diagnose d: 09/07/2019 10:30 AM (H60.8X3 ) Not Available [facility] 4 02:59:24 Candidal otitis externa 52479611 Active 2022 Candidal otitis externa; Note: Date Diagnose d: 3 8:45 AM (B37.84) Candid al otitis externa; Note: Date Diagnose d: 0 9:31 AM (B37.84) ; Start Date : 05/18/19 20 Not Available [facility] 4 02:59:22 Sensorin eural hearing loss of bilatera l ears 202366367 Active 2020 Sensorin eural hearing loss, bilatera l; Note: Date Diagnose d: 1 9:19 AM (H90.3) Not Available [facility] 4 02:59:25 Impacted cerumen of bilatera l ears 93423601450 41132 Active 2019 Impacted cerumen, bilatera l; Note: Date Diagnose d: 0 9:31 AM (H61.23) Not Available [facility] 4 02:59:23 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 18245683050 Active 2019 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 and infectio n, bilatera l; Note: Date Diagnose d: 0 9:37 AM (H61.323 ) Not Available [facility] 4 02:59:24 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 81705598856 71545 Active 2019 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 and infectio n, bilatera l; Note: Date Diagnose d: 0 9:37 AM (H61.323 ) Not Available [facility] 4 02:59:24 Follow-u p visit Active 2019 Encounte r for follow-u p examinat ion after complete d treatmen t for conditio ns other than malignan t neoplasm ; Note: Date Diagnose d: 11/02/2019 11:14 AM (Z09) Medica l surveill ance followin g complete d treatmen t; Note: Date Diagnose d: 0 9:50 AM (Z09) ; Start Date : 10/30/19 20 Not Available [facility] 4 02:59:25 Problem Notes None recorded. Procedures Surgical History Date Name Laterality Status Provider Name and Address Organization Details Recorded Time 04/04/20 24 Cerumen removal with microscope left completed TRACEY KAMINSKI MD [address] [place] [address],[address], [address], [facility] - [facility] 04/03/2024 07:34:32 01/04/20 24 Cerumen removal with microscope left completed TRACEY KAMINSKI MD [address] [place] [address],[address], [address], [place] - [facility] 01/04/2024 09:06:38 10/19/19 24 Cerumen removal with microscope left completed TRACEY KAMINSKI MD [address] [place] [address],[address], [address], [place] - [facility] 10/19/2023 08:46:23 lithotripsy completed Latha Fu [place] - [facility] 10/19/2023 08:30:53 meatoplasty of external ear completed Latha Fu [place] - [facility] 10/19/2023 08:31:07 Imaging Results Imaging Date Name Status LastModified by [facility] ation Details LastModified Time 09/27/2018 imaging/diagno [...] Name and Address Organization Details Recorded Time 230535 cephalexi n monohydra te medicatio n other Not available Not available 09/14/2023 94449 8 RxNorm React ion: unkno wn, unspe cifie d;; Not Available [facility] 4 01:22:48 823847 Substance with sulfonami de structure and antibacte rial mechanism of action (substanc e) medicatio n other Not available Not available 09/14/2023 54863 8003 SNOMED React ion: unkno wn, unspe cifie d;; Not Available [facility] 4 01:22:48 826640 Iodinated contrast media (substanc e) medicatio n Not available Not available Not available 10/19/2023 25070 2003 SNOMED Latha monteiro [place] - [facility] 4 08:29:47 Medications Name Sig Start Date Stop Date Status Note LastModified by Organization Details LastModified Time atorvasta tin 40 mg tablet 02/08 completed Medicati on ID: [id number] D uration Value: 90 Brand Name: atorvast [...] mg tablet 04/04 completed Medicati on ID: [id number] B rand Name: senna Se nd Method: E-Prescr ibed Sub s Allowed: subs OK Speci al Instruct ion: TAKE 2 TABLETS BY MOUTH AT BEDTIME FOR CONSTIPA TION Med icationG enericNa me: senna Not Available Not Available Not Available sucralfat e 100 mg/mL oral suspensio n 04/04 completed Medicati on ID: [id number] B rand Name: sucralfa te Send Method: [...] eye drops 10/18 completed Medicati on ID: [id number] D uration Value: 14 Prescri bed By Name: KELLI Barros nd Name: Ciloxan Send Method: E-Prescr ibed Sub s Allowed: subs OK Speci al Instruct ion: 4 drops into affected ear BID X 14 days Med icationG enericNa me: Ciloxan Medicati on ID: [id number] D uration Value: 14 Prescri bed By Name: KELLI Barros nd Name: Ciloxan Send Method: E-Prescr ibed Sub s Allowed: subs OK Speci al Instruct ion: 4 drops into affected ear BID X 14 days Med icationG enericNa me: Ciloxan Not Available Not Available Not Available ciproflox acin 500 mg tablet 1 tablet by mouth 08/02 completed Medicati on ID: [id number] D uration Value: 10 Prescri bed By [...] layed release 04/04 completed Medicati on ID: [id number] B rand Name: pantopra zole Sen d Method: E-Prescr ibed Sub s Allowed: subs OK [facility] pantopra zole Not Available Not Available Not Available clotrimaz ole-betam ethasone 1 %-0.05 % topical cream Apply 1 a small amount to affected area three times a day 10/18 completed Medicati on ID: [id number] D uration Value: 14 Prescri bed By Name: Musa Ramirez nd Name: clotrima zole-bet amethaso ne Send Method: E-Prescr ibed Sub s Allowed: subs ELIZABETH Hernandez al Instruct ion: Apply with fingerti p to external ear Medi cationGe nericNam e: clotrima zole-bet amethaso ne Medic ation ID: [id number] D uration Value: 14 Prescri bed By Name: Musa Ramirez nd Name: clotrima zole-bet amethaso ne Send Method: E-Prescr ibed Sub s Allowed: subs OK Speci al Instruct ion: Apply with fingerti p to external ear Medi cationGe nericNam e: clotrima zole-bet amethaso ne Not Available Not Available Not Available clotrimaz ole 1 % topical solution 10/18 completed Medicati on ID: [id number] D uration Value: 14 Brand Name: clotrima zole Sen d Method: E-Prescr ibed Sub s Allowed: subs OK Speci al Instruct ion: 4 drops to affected ear three times a day Medi cationGe nericNam e: clotrima zole Med ication ID: [id number] D uration Value: 14 Brand Name: clotrima [...] affected area 10/18 completed Medicati on ID: [id number] D uration Value: 14 Brand Name: mupiroci n Send Method: E-Prescr ibed Sub s Allowed: subs OK Medic ationGen ericName : mupiroci n Medica tion ID: [id number] D uration Value: 14 Brand Name: mupiroci n Send Method: E-Prescr ibed Sub s Allowed: subs OK Medic ationGen ericName : mupiroci n Not Available Not Available Not Available cefuroxim e axetil 500 mg tablet 1 tablet by mouth 10/18 completed Medicati on ID: [id number] D uration Value: 14 Brand Name: cefuroxi me axetil S end Method: E-Prescr ibed Sub s Allowed: subs OK Medic ationGen ericName : cefuroxi me axetil M edicatio n ID: [id number] D uration Value: 14 Brand Name: cefuroxi me axetil S end Method: E-Prescr ibed Sub s Allowed: subs OK Medic ationGen ericName : cefuroxi me axetil Not Available Not Available Not Available multivita min capsule 2019 active Medicati on ID: [id number] B rand Name: multivit anderson Sen d Method: E-Prescr ibed Sub s Allowed: subs OK Medic ationGen ericName : multivit anderson Not Available Not Available Not Available oxycodone 5 mg tablet 1 tablet by mouth 10/18 completed Medicati on ID: [id number] D uration Value: 3 Brand Name: oxycodon e Send Method: E-Prescr ibed Sub s Allowed: subs OK Medic ationGen ericName : oxycodon e Medica tion ID: [id number] D uration Value: 3 Brand Name: oxycodon e Send Method: E-Prescr ibed Sub s Allowed: subs OK Medic ationGen ericName : oxycodon e Not Available Not Available Not Available neomycin 3.5 mg/g-poly myxin B 10,000 unit/g-de xameth 0.1 % eye oint 10/25 completed Medicati on ID: [id number] P yady d By Name: Musa Ramirez nd Name: neomycin -polymyx in B-dexame th Send Method: E-Prescr ibed Sub s Allowed: subs OK Speci al Instruct ion: apply to both ear canals TID Medi cationGe nericNam e: neomycin -polymyx in B-dexame th Not Available Not Available Not Available Ciprodex 0.3 %-0.1 % ear drops,luiz pension 4 drop 10/18 completed Medicati on ID: [id number] D uration Value: 14 Brand Name: Ciprodex Send Method: E-Prescr ibed Sub s Allowed: subs OK Medic ationGen ericName : Ciprodex Medicat ion ID: [id number] D uration Value: 14 Brand Name: Ciprodex [...] topical ointment 10/18 completed Medicati on ID: [id number] D uration Value: 30 Brand Name: Joseph gonzalez Send Method: E-Prescr ibed Sub s Allowed: subs OK Speci al Instruct ion: apply to bith ears canals three times a day Medi cationGe nericNam e: Machopo lisa Medi cation ID: [id number] D uration Value: 30 Brand Name: Joseph gonzalez Send Method: E-Prescr ibed Sub s Allowed: subs OK Speci al Instruct ion: apply to bith ears canals three times a day Medi cationGe nericNam e: Machopo rin Not Available Not Available Not Available [...] History Nothing Reported. Medical History Condition Response High Cholesterol Y GERD/Reflux Y Hypertension Y Gynecological HistoryNo gynecological history recorded. 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 Impacted c erumen in left ear [id number] 862456 H61.22 [id number] TRACEY KAMINSKI MD [facility] [address] [address] 01/04/2024 08:33:56 01/04/2024 09:08:18 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 [id number] 652443 H61.322 The right external auditory canal remains [...] follow-up in 3 months for next disimpacti on. Impacted c erumen in left ear 5597430882 687852 H61.22 [id number] TRACEY KAMINSKI MD [facility] [address] [address] 04/04/2024 07:58:18 04/04/2024 08:33:09 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 2806074951 396065 H61.322 The right external auditory canal remains [...] be having her follow-up with a physician virtual customer assistant going forward for cerumen removal. She is always welcome to come back to see me if she wants to proceed with left-sided meatoplast y. Impacted c erumen in left ear [id number] 686419 H61.22 Health Concerns Section Related Observation LastModified by Organization Detai ls LastModified Time None Recorded Concern Status LastModified by Organization Details LastModified Time None Recorded Advance Directives Directive None Recorded Payers Encounter Date Sequence Insurance Name Policy Number Policy Chi Covered Member ID Chi Member ID Guarantor Name 10/19/2023 1 [place] Maureen Francisco Javier Thomasdziel [id number] Maureen J Williamdziel 10/19/2023 2 [employer] - SENIOR SERVICES PLAN F (MEDICARE SUPPLEMENT) [id number] Maureen Francisco Javier Williamdziel [id number] Maureen Mcintrye Williamdziel 01/04/2024 1 [place] Maureen Francisco Javier Thomasdziel [id number] 2 Maureen Francisco Javier Kurdziel 01/04/2024 2 [employer] - SENIOR SERVICES PLAN F (MEDICARE SUPPLEMENT) [id number] Maureen Francisco Javier Thomasdziel [id number] Maureen Francisco Javier Kurdziel 04/04/2024 2 [employer]IC[employer] - GIC INDEMNITY PLAN (MEDICARE SUPPLEMENT) [id number] Maureen Francisco Javier Williamdziel [id number] Maureen Francisco Javier Kurdziel 04/04/2024 1 [place] Maureen Francisco Javier Thomasdziel [id number] 2 Maureen Francisco Javier Kurdziel Notes Date Note Type Note Provider Name and Address Organization Details Recorded Time 10/19/2023 text/html 83-year-old markus flores presents for cerumen removal. She has a history of bilateral external auditory canals stenosis. Meatoplasty done in 2019 on the right side with resulting resolution of the stenosis on the right. She reports the right ear is feeling great. Recent blockage sensation on the left accompanied by difficulty hearing. TRACEY KAMINSKI MD [address] [place] [address], [address], [facility] - [facility] 10/19/2023 08:51:52 01/04/2024 text/html 83-year-old markus flores presents for cerumen removal. She has a history of bilateral external auditory canals stenosis. Meatoplasty done in 2019 on the right side with resulting resolution of the stenosis on the right. She reports the right ear is feeling great. Recent blockage sensation on the left accompanied by difficulty hearing. TRACEY KAMINSKI MD [address] [facility],[address], [address], [facility] - [facility] 01/04/2024 09:08:08 04/04/2024 text/html 83-year-old femlolita flores presents for cerumen removal. She has a history of bilateral external auditory canals stenosis. Meatoplasty done in 2019 on the right side with resulting resolution of the stenosis on the right. She reports the right ear is feeling great. Recent blockage sensation on the left accompanied by difficulty hearing. TRACEY KAMINSKI MD [address] [facility],[address], [place], [address], [facility] 04/04/2024 08:38:51 OBGyn Episode No OBEpisode recorded.
--- OUTSIDE RECORDS SUMMARY | 2024-05-09 12:09 | XMS_ITS | Patient Health Record ---
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 Name Role Phone Alton Durham Primary Care Provider ALLERGIES Allergen (clinical drug ingredient) Drug/Non Drug Allergy documented on EMR Reaction Allergy Type Onset Date Status Keflex rash Drug Allergy Active ciprofloxacin Cipro rash and myalgia Drug Allergy Active sulfamethoxazole / trimethoprim Bactrim hives over entire body Drug Allergy Active ivp dye (uncoded) rash Allergy Ac tive RESULTS Component Value Reference Range Notes Complete Blood Count Auto Di ff Reviewed date:06/20/2023 05:43:45 PM Interpretation: Performing Lab:[facility], [address] [place] [address] Notes/Report: White Blood Count 3.2 4.8-10.8 X10*3/uL [...] Panel Reviewed date:06/20/2023 05:35:16 PM Interpretation: Performing Lab:[address] [address] Notes/Report: Bilirubin Total 0.6 0.0-1.0 mg/dL Bilirubin Direct 0.3 0.0-0.5 mg/dL Aspartate Amino Transferase 26 5-31 U/L Alanine Aminotransferase 26 0-31 U/L Total Protein 6.9 6.5-8.0 g/dL Albumin Level 4.3 3.5-5.0 g/dL Alkaline Phosphatase 67 39-117 U/L Basic Metabolic Panel Reviewed date:06/20/2023 05:36:04 PM Interpretation: Performing Lab:[address] [address] Notes/Report: Sodium 141 135-145 mmol/L Potassium 4.1 [...] Glomerular Filt Rate > 60 NOTE: For -Beninese individuals, multiply the result by 1.210. Chronic Kidney Disease: Estimated GFR < 60 mL/min/1.73m2 Severe Kidney Disease: Estimated GFR < 15 mL/min/1.73m2 Glucose Random 99 60-115 mg/dL Calcium 10.0 8.4-10.2 mg/dL Magnesium Reviewed date:06/20/2023 05:35:36 PM Interpretation: Performing Lab:[facility], [address] [place] [phone] Notes/Report: Magnesium 1.9 1.6-2.6 mg/dL Troponin-I High Sensitivity Reviewed date:06/20/2023 05:35:45 PM Interpretation: Performing Lab:[facility], [address] [place] [phone] Notes/Report: Troponin-I High Sensitivity 4.7 <3.5-17.0 ng/ L [facility] high sensitivity Troponin-I results should be used in conjunction with other diagnostic information such as ECG, clinical observations and information, and patient symptoms to aid in the diagnosis of PR. Thyroid Stimulating Hormone Reviewed date:06/20/2023 05:32:25 PM Interpretation: Performing Lab:[facility], [address] [place] [address] Notes/Report: Thyroid Stimulating Hormone 0.53 0.32-4.0 uIU/ mL TSH 3rd Generation ([facility]) CT soft tissue neck wo con Reviewed date:06/24/2023 03:09:06 PM Interpretation: Performing Lab: Notes/Report: [address] [address] [address] Scan Report Signed Patient: Maureen Foreman MR#: [id number] : 1940 Acct:[id number] Age/Sex: 83 / F ADM Date: 06/19/23 Loc: HO.ED Attending Dr: Ordering Physician: Kassie Knight Date of Service: 06/19/23 Procedure(s): CT soft tissue neck wo IV con Accession Number(s): [id number] cc: Alton Durham MD; Kassie Knight EXAMINATION: [...] in OV> 06/19/23 1033 DD/ 0837 TD/TT: Loss Prevention Analyst: ADAMS Troponin-I High Sensitivity Reviewed date:06/20/2023 05:32:15 PM Interpretation: Performing Lab:[facility], [address] [place] [address] Notes/Report: Troponin-I High Sensitivity 5.4 <3.5-17.0 ng/ L [facility] high sensitivity Troponin-I results should be used in conjunction with other diagnostic information such as ECG, clinical observations and information, and patient symptoms to aid in the diagnosis of PR. US renal BI Reviewed date:06/29/2023 11:11:00 AM Interpretation: Performing Lab: Notes/Report: [address] [address] Ultrasound Report Signed Patient: Maureen Foreman MR#: [id number] : 1940 Acct:[id number] Age/Sex: 83 / F ADM Date: 06/28/23 Loc: HO.US Attending Dr: Som Mckeon MD Ordering Physician: Som Mckeon MD Date of Service: 06/28/23 Procedure(s): US renal BI Accession Number(s): [id number] cc: Som Mckeon MD; Alton Durham MD [...] signed by Amalia Ly MD in OV> 06/29/23523 DD/ 0837 TD/TT: Loss Prevention Analyst: Pathology Reviewed date:07/14/2023 02:39:57 PM Interpretation: Performing Lab:[facility], [address] [place] [address] Notes/Report: FL upper GI series Reviewed date:07/14/2023 02:39:32 PM Interpretation: Performing Lab: Notes/Report: [address] [place] [address] Fluoroscopy Report Signed Patient: Maureen Foreman MR#: [id number] : 1940 Acct:[id number] Age/Sex: 83 / F ADM Date: 07/13/23 Loc: HO.US Attending Dr: Alton Durham MD Ordering Physician: Alton Durham MD Date of Service: 07/13/23 Procedure(s): FL upper GI series Accession Number(s): [id number] cc: Alton Durham MD EXAMINATION: XR FLUOROSCOPY [...] in OV> 07/14/23 1243 DD/ 1100 TD/TT: Loss Prevention Analyst: US thyroid Reviewed date:07/15/2023 10:04:09 AM Interpretation: Performing Lab: Notes/Report: [address] [address] Ultrasound Report Signed Patient: Maureen Foreman MR#: [id number] : 1940 Acct:[id number] Age/Sex: 83 / F ADM Date: 07/13/23 Loc: HO.US Attending Dr: Alton Durhma MD Ordering Physician: Alton Durham MD Date of Service: 07/13/23 Procedure(s): US thyroid Accession Number(s): [id number] cc: Alton Durham MD EXAMINATION: US THYROID [...] than or equal to 1 cm: 3. 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 Left inferior TR 3 [...] in OV> 07/14/23 1651 DD/ 1024 TD/TT: Loss Prevention Analyst: Marta Allergen Reviewed date:08/13/2023 02:00:51 PM Interpretation: Performing Lab:[facility], [address] [place] [phone] Notes/Report: Rast Allergen SEE NOTE SEE SCANNED RE SULT IN EMR Hold Gold Reviewed date:08/31/2023 11:16:55 AM Interpretation: Performing Lab:[facility], [address] [place] [address] Notes/Report: Hold Gold See Note Specimen held untested for 24 hours; Call to request Chemistry testing. Complete Blood Count Auto Di ff Reviewed date:08/31/2023 12:37:41 PM Interpretation: Performing Lab:[facility], [address] [place] [address] Notes/Report: White Blood Count 3.1 4.8-10.8 X10*3/uL [...] Panel Reviewed date:08/31/2023 12:36:40 PM Interpretation: Performing Lab:[facility], [address] [place] [phone] Notes/Report: Bilirubin Total 0.7 0.0-1.0 mg/dL Bilirubin Direct 0.3 0.0-0.5 mg/dL Aspartate Amino Transferase 28 5-31 U/L Alanine Aminotransferase 25 0-31 U/L Total Protein 6.6 6.5-8.0 g/dL Albumin Level 4.2 3.5-5.0 g/dL Alkaline Phosphatase 70 39-117 U/L Lipid Panel with Reflex Reviewed date:08/31/2023 12:36:13 PM Interpretation: Performing Lab:[facility], [address] [place] [phone] Notes/Report: Triglycerides 67 <150 mg/dL Desirable Triglyceride: [...] date:10/12/2023 01:11:48 PM Interpretation: Performing Lab: Notes/Report: [address] [address] [address] Scan Report Signed Patient: Maureen Foreman MR#: [id number] : 1940 Acct:[id number] Age/Sex: 83 / F ADM Date: 09/16/23 Loc: HO.CT Attending Dr: Alton Durham MD Ordering Physician: Alton Durham MD Date of Service: 09/16/23 Procedure(s): CT chest wo IV con Accession Number(s): [id number] cc: Alton Durham MD EXAMINATION: CT CHEST [...] FINDINGS: LUNGS: Biapical pleural-parenchymal scarring is present. Eiyc-ko-emmqedmm emphysematous changes are seen (for example 3 [...] in OV> 10/12/23 0935 DD/ 0837 TD/TT: Loss Prevention Analyst: OJY Complete Blood Count Auto Di ff Reviewed date:09/20/2023 05:22:25 PM Interpretation: Performing Lab:[facility], [address] [place] [address] Notes/Report: White Blood Count 3.9 4.8-10.8 X10*3/uL [...] Panel Reviewed date:09/18/2023 06:27:11 PM Interpretation: Performing Lab:[facility], [address] [place] [address] Notes/Report: Bilirubin Total 0.8 0.0-1.0 mg/dL Bilirubin Direct 0.3 0.0-0.5 mg/dL Aspartate Amino Transferase 31 5-31 U/L Alanine Aminotransferase 30 0-31 U/L Total Protein 7.0 6.5-8.0 g/dL Albumin Level 4.5 3.5-5.0 g/dL Alkaline Phosphatase 84 39-117 U/L Basic Metabolic Panel Reviewed date:09/18/2023 06:29:52 PM Interpretation: Performing Lab:[facility], [address] [place] [address] Notes/Report: Sodium 145 135-145 mmol/L Potassium 3.0 [...] Glomerular Filt Rate > 60 NOTE: For -Beninese individuals, multiply the result by 1.210. Chronic Kidney Disease: Estimated GFR < 60 mL/min/1.73m2 Severe Kidney Disease: Estimated GFR < 15 mL/min/1.73m2 Glucose Random 103 60-115 mg/dL Calcium 10.3 8.4-10.2 mg/dL Lipase Reviewed date:09/18/2023 06:27:01 PM Interpretation: Performing Lab:[facility], [address] [place] [phone] Notes/Report: Lipase 22 8-78 U/L Potassium Reviewed date:09/23/2023 01:05:42 PM Interpretation: Performing Lab:[facility], [address] [place] [phone] Notes/Report: Potassium 3.0 3.3-5.1 mmol/L Slight Hemoly sis Pathology Reviewed date:09/24/2023 10:02:51 AM Interpretation: Performing Lab:[facility], [address] [place] [address] Notes/Report: Complete Blood Count Auto Di ff Reviewed date:10/05/2023 10:02:29 AM Interpretation: Performing Lab:[facility], [address] [place] [phone] Notes/Report: White Blood Count 3.1 4.8-10.8 X10*3/uL [...] Panel Reviewed date:10/05/2023 09:55:46 AM Interpretation: Performing Lab:[facility], [address] [place] [phone] Notes/Report: Bilirubin Total 0.8 0.0-1.0 mg/dL Bilirubin Direct 0.3 0.0-0.5 mg/dL Aspartate Amino Transferase 34 5-31 U/L Alanine Aminotransferase 31 0-31 U/L Total Protein 7.1 6.5-8.0 g/dL Albumin Level 4.5 3.5-5.0 g/dL Alkaline Phosphatase 77 39-117 U/L Basic Metabolic Panel Reviewed date:10/07/2023 12:46:16 PM Interpretation: Performing Lab:[facility], [address] [place] [phone] Notes/Report: Sodium 147 135-145 mmol/L Potassium 2.9 3.3-5.1 mmol/L Critical value for test(s): pots Results called to and read back by:rigo Person calling: shama Date: 10/05/23 Time:0940 Chloride 104 96-108 mmol/L [...] Glomerular Filt Rate > 60 NOTE: For -Beninese individuals, multiply the result by 1.210. Chronic Kidney Disease: Estimated GFR < 60 mL/min/1.73m2 Severe Kidney Disease: Estimated GFR < 15 mL/min/1.73m2 Glucose Random 92 60-115 mg/dL Calcium 10.8 8.4-10.2 mg/dL Magnesium Reviewed date:10/05/2023 09:55:24 AM Interpretation: Performing Lab:[facility], [address] [place] [address] Notes/Report: Magnesium 1.9 1.6-2.6 mg/dL SLIDE REVIEW Reviewed date:10/05/2023 11:59:08 AM Interpretation: Performing Lab:[facility], [address] [place] [address] Notes/Report: SLIDE REVIEW VERIFIED XR chest 2V Reviewed date:10/05/2023 09:57:27 AM Interpretation: Performing Lab: Notes/Report: [address] [address] XRay Report Signed Patient: Maureen Foreman MR#: [id number] : 1940 Acct:[id number] Age/Sex: 83 / F ADM Date: 10/05/23 Loc: .ED Attending Dr: Ordering Physician: Ekaterina Leonardo DO Date of Service: 10/05/23 Procedure(s): XR chest 2V Accession Number(s): [id number] cc: Alton Durham MD; Ekaterina Leonardo DO [...] signed by Kamilla Barber MD in OV> 10/05/23924 DD/ 0853 TD/TT: Loss Prevention Analyst: JV Potassium Reviewed date:10/14/2023 06:10:12 AM Interpretation: Performing Lab:[facility], [address] [place] [address] Notes/Report: Potassium 3.1 3.3-5.1 mmol/L FL barium swallow Reviewed date:10/22/2023 12:35:07 PM Interpretation: Performing Lab: Notes/Report: [address] [address] Fluoroscopy Report Signed Patient: Maureen Foreman MR#: [id number] : 1940 Acct:[id number] Age/Sex: 83 / F ADM Date: 10/12/23 Loc: HO.KASEYAY Attending Dr: Julee ANAYA Ordering Physician: Julee Asher Date of Service: 10/12/23 Procedure(s): FL barium swallow Accession Number(s): [id number] cc: Alton Durham MD; Julee Asher EXAMINATION: XR FLUOROSCOPY UPPER GI WITH AIR [...] Roberto Huffman MD in OV> 10/21/231756 DD/ 0858 TD/TT: Loss Prevention Analyst: ALISA gastric emptying study Reviewed date:10/18/2023 05:04:10 PM Interpretation: Performing Lab: Notes/Report: [address] [address] Nuclear Medicine Report Signed Patient: Maureen Foreman MR#: [id number] : 1940 Acct:[id number] Age/Sex: 83 / F ADM Date: 10/18/23 Loc: BENJAMIN Attending Dr: Julee Asher [facility] Ordering Physician: Julee Asher [facility] Date of Service: 10/18/23 Procedure(s): PR gastric emptying study Accession Number(s): [id number] cc: Alton Durham MD; Julee Asher [facility] EXAMINATION: PR RADIONUCLIDE SOLID FOOD GASTRIC EMPTYING 4-HOUR STUDY [...] hours 28% 4 hours 5% (normal 0%-10%) PR/PR gastric emptying study IMPRESSION: Normal 4-hour solid [...] grading per JNMT Consensus Recommendations in 2008 (https://tech.snmjournals.org/content/36/44) Grade 1 (mild retention): 11-20% at 4h Grade 2 (moderate retention): 21-35% at 4h Grade 3 (severe retention): 36-50% at 4h Grade 4 (very severe retention): >50% retention at 4h Dictated By: Mary Wiggins MD Signed By: <Electronically signed by Mary Wiggins MD in OV> 10/18/23 1440 DD/ 1215 TD/TT: Loss Prevention Analyst: KRISTIE Potassium Reviewed date:10/21/2023 05:06:20 PM Interpretation: Performing Lab:[facility], [address] [place] [address] Notes/Report: Potassium 2.8 3.3-5.1 mmol/L Critical value for test(s): POTS Results called to and read back by: YOSELYN Cotton Person calling:SHAMA Date: 10/21/23 Time: 1124 Potassium Reviewed date:10/26/2023 08:42:40 AM Interpretation: Performing Lab:[facility], [address] [place] [phone] Notes/Report: Potassium 3.4 3.3-5.1 mmol/L Potassium Reviewed date:11/01/2023 12:24:52 PM Interpretation: Performing Lab:[facility], [address] [place] [address] Notes/Report: Potassium 3.7 3.3-5.1 mmol/L Potassium Reviewed date:11/11/2023 04:20:21 PM Interpretation: Performing Lab:[facility], [address] [place] [address] Notes/Report: Potassium 4.4 3.3-5.1 mmol/L Potassium Reviewed date:11/25/2023 12:21:33 PM Interpretation: Performing Lab:[facility], [address] [place] [phone] Notes/Report: Potassium 3.9 3.3-5.1 mmol/L XR KUB Reviewed date:01/09/2024 12:30:30 PM Interpretation: Performing Lab: Notes/Report: [address] [address] XRay Report Signed Patient: Maureen Foreman MR#: [id number] : 1940 Acct:[id number] Age/Sex: 83 / F ADM Date: 12/08/23 Loc: HOSEBASTIÁN Attending Dr: Som Mckeon MD Ordering Physician: Som Mckeon MD Date of Service: 12/08/23 Procedure(s): XR KUB Accession Number(s): [id number] cc: Som Mckeon MD; Alton Durham MD [...] 01/06/24 2158 DD/ 1232 TD/TT: 12/08/23 1240 Loss Prevention Analyst: JOY Potassium Reviewed date:12/13/2023 12:39:37 PM Interpretation: Performing Lab:[facility], [address] [place] [address] Notes/Report: Potassium 4.0 3.3-5.1 mmol/L Potassium Reviewed date:01/14/2024 09:08:52 AM Interpretation: Performing Lab:[facility], [address] [place] [phone] Notes/Report: Potassium 3.6 3.3-5.1 mmol/L Slight Hemoly sis Potassium Reviewed date:02/03/2024 12:32:20 PM Interpretation: Performing Lab:[facility], [address] [place] [phone] Notes/Report: Potassium 4.2 3.3-5.1 mmol/L Slight Hemoly sis Complete Blood Count Auto Di ff Reviewed date:03/14/2024 09:33:06 AM Interpretation:see back 03-14-2024 Performing Lab:[facility], [address] [place] [phone] Notes/Report: White Blood Count 2.5 4.8-10.8 X10*3/uL [...] NRBC Abs Auto 0.000 0.0-0.012 X10*3/uL Comprehensive [place]. Panel Fa st Reviewed date:03/07/2024 04:52:00 PM Interpretation: Performing Lab:[facility], [address] [place] [address] Notes/Report: Sodium 141 135-145 mmol/L Potassium 3.9 3.3-5.1 mmol/L Slight Hemolysis.Interpret result with caution. Chloride 104 96-108 mmol/L Carbon Dioxide 27 22-29 mmol/L Anion Gap 14 12-20 Blood Urea Nitrogen 23 9-16 mg/dL Creatinine 0.64 0.5-1.4 mg/dL Estimated Glomerular Filt Rate > 60 NOTE: For -Beninese individuals, multiply the result by 1.210. Chronic [...] Panel Reviewed date:03/07/2024 04:52:17 PM Interpretation: Performing Lab:[facility], [address] [place] [address] Notes/Report: Triglycerides 63 <150 mg/dL Desirable Triglyceride: [...] t Reviewed date:03/07/2024 04:51:31 PM Interpretation: Performing Lab:[address], [place] [address] Notes/Report: Urine, Clean Catch Color Urine Yellow Appearance Urine Clear PH 6.5 5.0-9.0 Glucose Urine UA Negative Negative mg/dL Urine Blood Negative Negative Specific [place] - Urine 1.020 1.005-1.025 Urine Protein 30 [...] Notes/Report: Negative Occult Blood, Stool, Guaiac Neg XR soft tissue neck Reviewed date:04/17/2024 12:23:13 PM Interpretation: Performing Lab: Notes/Report: [address] [address] XRay Report Signed Patient: Maureen Foreman MR#: [id number] : 1940 Acct:[id number] Age/Sex: 83 / F ADM Date: 03/29/24 Loc: CONCHA Attending Dr: Julee Asher [facility] Ordering Physician: Julee Asher Date of Service: 03/29/24 Procedure(s): XR soft tissue neck Accession Number(s): [id number] cc: Alton Durham MD; Julee Asher [facility] EXAMINATION: XR SOFT TISSUE NECK CLINICAL INDICATION: K22.2 - Esophageal obstruction COMPARISON: CT soft tissue neck 06/19/2023. Ultrasound of the thyroid 07/13/2023. TECHNIQUE: 2 views of the soft tissue neck were obtained. 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 FINDINGS: Soft tissue films of the neck demonstrate a normal larynx, pharynx, hypopharynx, and upper trachea. No masses appreciated. No prevertebral soft tissue swelling or opaque foreign body is demonstrated. There are right greater than left carotid bulb calcifications, moderate. Severe degenerative changes spanning C3-C7 of the cervical spine, with ventrally projecting disc osteophyte at C3-4, C4-5, and C5-6. XR/XR soft tissue neck IMPRESSION: 1. No acute soft tissue abnormalities. 2. Recommend correlating with EGD if felt clinically warranted. Electronically signed by: Roberto Huffman MD 04/17/2024 09:[address] [facility] Dictated By: Roberto Huffman MD Signed By: <Electronically signed by Roberto Huffman MD in OV> 04/17/24918 DD/ 01 TD/TT: 03/29/24 1510 Loss Prevention Analyst: Complete Blood Count Auto Tonja ff Reviewed date:04/04/2024 12:44:09 PM Interpretation: Performing Lab:[facility], [address] [place] [phone] Notes/Report: White Blood Count 2.7 4.8-10.8 X10*3/uL [...] Potassium Reviewed date:04/04/2024 12:47:19 PM Interpretation: Performing Lab:[facility], [address] [place] [phone] Notes/Report: Potassium 3.9 3.3-5.1 mmol/L MM tomosynthesis screening B I Reviewed date:05/05/2024 04:58:08 PM Interpretation: Performing Lab: Notes/Report: [facility] [address] [place] [address] Mammography Report Signed Patient: Maureen Foreman MR#: [id number] : 1940 Acct:[id number] Age/Sex: 83 / F ADM Date: 04/24/24 Loc: HO.MAMMO Attending Dr: Alton Durham MD Ordering Physician: Alton Durham MD Results: 1Ne gative Date of Service: 04/24/24 Follow Up: 1 Year From Orig ina Mammogram Procedure(s): MM tomosynthesis screening BI Accession Number(s): [id number] cc: Alton Durham MD EXAMINATION: MM SCREENING DIGITAL BREAST TOMOSYNTHESIS, BILATERAL CLINICAL INFORMATION: Screening. Asymptomatic. COMPARISON: Mammography: Comparison is made with available priors TECHNIQUE: Digital breast mammography with tomosynthesis is performed in both the craniocaudal and mediolateral oblique views along with computer-aided detection (CAD). FINDINGS: The breasts are heterogeneously dense, which may obscure small masses (ACR BI-RADS breast composition Category c). There are no significant masses, abnormal calcifications, or other abnormalities. MM/MM tomosynthesis screening BI IMPRESSION: No mammographic evidence of malignancy. ASSESSMENT: BI-RADS BI-RADS 1 - Negative RECOMMENDATION: Routine annual mammography screening. 1 year F/U This examination should not preclude the clinical evaluation of a suspicious palpable abnormality. This patient's information was entered into a reminder system with a target due date for their next mammogram. Electronically signed by: Judy Bravo DO 05/05/2024 04:[address] [facility] Dictated By: Judy Bravo DO Signed By: <Electronically signed by Judy Bravo DO in OV> 05/05/24 1628 DD/ 0800 TD/TT: 04/24/24 0821 Loss Prevention Analyst: Complete Blood Count Auto Di ff (Not yet reviewed by provider) Interpretation: Performing Lab:[facility], [address] [place] [phone] Notes/Report: White Blood Count 2.8 4.8-10.8 X10*3/uL Red Blood Count 5.05 4.20-5.50 X10*6/uL Hemoglobin 15.4 12.0-16.0 g/dl Hematocrit 46.9 37.0-47.0 % Mean Corpuscular Volume 92.9 80.0-98.0 fL Mean Corpuscular Hemoglobin 30.5 27.0-33.0 pg Mean Corpuscular HGB Conc 32.8 31.0-35.0 g/dl Red Cell Distribution Width 14.1 11.0-16.0 % Platelet Count 165 160-400 X10*3/uL Mean Platelet Volume 10.6 9.4-12.3 fL Neutrophils Percent Auto 54.4 45-73 % Imm Gran Pct Auto 0.0 0.0-0.4 % Lymphocytes Percent Auto 28.6 20-40 % Monocytes Percent Auto 13.0 2-11 % Eosinophils Percent Auto 2.9 0-4 % Basophils Percent Auto 1.1 0-2 % NRBC Pct Auto 0.0 0.0-0.2 /100WBC Neutrophils Absolute Auto 1.5 2.0-8.3 x10*3/u L Imm Gran Abs Auto 0.00 0.00-0.03 X10*3/uL Lymphocytes Absolute Auto 0.8 1.2-4.9 X10*3/u L Monocytes Absolute Auto 0.4 0.1-1.2 X10*3/uL Eosinophils Absolute Auto 0.1 0.0-0.4 X10*3/u L Basophils Absolute Auto 0.0 0.0-0.2 X10*3/uL NRBC Abs Auto 0.000 0.0-0.012 X10*3/uL Potassium (Not yet reviewed by provider) Interpretation: Performing Lab:[facility], [address] [place] [phone] Notes/Report: Potassium 3.9 3.3-5.1 mmol/L REASON FOR REFERRAL Reason belching Diagnosis 1 Belching (R14.2) Referral Organization Alton Durham MD Referring Provider First Name Alton Referring Provider Last Name Marva Referring Provider Speciality Internal edicine Referred Provider Heber Sweeney Referred Provider Specialty Gastroentero logy General Notes Gabriella Parikh 10:08:04 AM EST > info faxed. Spoke with patient she will be calling their office to set up her appt. Gave her their phone number to call. , Gabriella Parikh 09/17/2023 03:20:50 PM EDT > patient went to [facility] instead sooner appt Referral Priority Routine Referral Appointment Date 09/16/2023 Reason REFLUX GASTRITIS Diagnosis 1 Reflux gastritis (K2 9.60) Referral Organization Alton Durham MD Referring Provider First Name Alton Referring Provider Last Name Marva Referring Provider Speciality Internal edicine Referred Provider NERI DELGADO Referred Provider Specialty Gastroentero logy Referral Priority Routine Referral Appointment Date 07/14/2023 MEDICATIONS Medication SIG (Take, Route, Frequency, Duration) Notes Start Date End Date Status ZyrTEC 10 MG 1 tablet Orally Once a day for 30 day(s) Not-Taking Famotidine 40 MG 1 tablet at [...] per day for 7 days 10/23/2016 Not-Taking Vitamin B-6 50 MG 1 tablet Orally for 30 day(s) Active Multi Vitamin/Minerals as directed Orally Active Rosuvastatin Calcium 40 MG take 1 tablet by mouth every day Orally Once a day Active NexIUM 20 MG 1 capsule Orally twi ce a day Active Potassium Chloride 20 MEQ TAKE 1 PACKET AND MIX IN LIQUID AND DRINK BY MOUTH DAILY DIRECTED Orally QOD Active IMMUNIZATIONS Vaccine Route Administration Date Status Comme nts Shingles IM Intramuscular 12/16/2010 Administered Flu Vaccine IM Intramuscular 04/07/2011 Administered Flu Vaccine IM Intramuscular 01/26/2012 Administered [facility] Flu Vaccine Unknown 02/11/2012 Administered Flu Vaccine IM Intramuscular 02/22/2013 Administered [employer] [facility] Tetanus Unknown 01/29/2006 Administered Prevnar 13 IM Intramuscular 04/10/2013 Administered zzz Unknown 04/10/2013 Administered Flu Vaccine Unknown 02/14/2014 Administered [employer] TDaP Unknown 03/21/2014 Administered [facility] Fluarix Quadrivalent IM Intramuscular 02/26/2015 Administered [employer] Flu Vaccine Unknown 02/15/2016 Administered [employer] Fluarix Quadrivalent Unknown 02/17/2017 Administered [employer] Flu Vaccine IM Intramuscular 01/21/2018 Administered pt wa s given the vaccine at [facility] in [place] on [address] Fluarix Quadrivalent Unknown 02/03/2019 Administered [employer] PPSV23 (Pnemovax) IM Intramuscular 02/10/2019 Administered Influenza High Dose Unknown 01/23/2020 Administered [employer] zzz Unknown 02/10/2019 Administered zInfluenza Unknown 01/23/2020 Administered SARS-COV-2 Moderna Unknown 05/24/2020 Administered SARS-COV-2 Moderna Unknown 06/18/2020 Administered Influenza High Dose Unknown 02/12/2021 Administered [employer] SARS-COV-2 Moderna Unknown 03/18/2021 Administered [facility] Influenza [...] Notes Problem Thyroid nodule (E04.1) Active confirmed 101419866 Problem Neutropenia (D70.9) Active confirmed 16 9318404 Problem Lung nodule seen on imaging study (R91.1) Active confirmed 537172434 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 Non-toxic singl e thyroid nodule (713024008) Problem 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) Active confirmed 0981321 Problem Lumbar disc disease (M51.9) Active confirmed Disorder of lumbar disc (343080366) Problem Essential hypertension (I10) Active confirmed 70152588 Problem Lung nodule (R91.1) Active confirmed 30 8140991 Problem Esophageal dysmotility (K22.4) Active confirmed 260220827 Problem History of kidney stones (Z87.442) Active confirmed 557468690 Problem Cervical disc disease (M50.90) Active confirmed 947414160 Problem Sciatica of left side (M54.32) Active confirmed 89247544 Problem Neutropenia, unspecified type (D70.9) Active confirmed 451645394 Problem 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) Active confirmed 28684629 Problem Sciatica of right side (M54.31) Active confirmed 75635026 Problem Elevated cholesterol (E78.00) Active confirmed 36963903 Problem Esophageal spasm (K22.4) Active confirmed 621126967 Problem Adnexal cyst (N94.9) Active confirmed 95921569497514 Problem Multinodular goiter (E04.2) Active confirmed 814116248 Problem Achalasia (K22.0) Active confirmed 4556 4002 Problem Paresthesia (R20.2) Active confirmed 91 681972 Problem Atherosclerosis of both carotid arteries (I65.23) Active confirmed 922604964112451 Problem Abnormal mammogram of both breasts (R92.8) Active confirmed 095111898 Problem Esophageal dysfunction (K22.4) Active confirmed 118355344 Problem Tingling of right upper extremity (R20.2) Active confirmed 269606122 Problem Gastroesophageal reflux disease with esophagitis without hemorrhage (K21.00) Active confirmed 829421320 Problem Porokeratosis (Q82.8) Active confirmed 318352305 Problem 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0 Alton Durham MD [address] [place] [address] [id number] 03/14/2024 Alton Durham Neutropenia D70.9 ; Elevated cholesterol E78.00 ; Thyroid nodule E04.1 ; Esophageal dysfunction K22.4 ; Hypokalemia E87.6 ; Essential hypertension I10 ; Colon cancer screening Z12.11 and Depression screening Z13.31 Alton Durham MD [address] [place] [address] [id number] 08/31/2023 Alton Durham Neutropenia D70.9 an d Elevated cholesterol E78.00 Alton Durham MD [address] [place] [address] [id number] 03/07/2024 Alton Durham Blood tests for rout ine general physical examination Z00.00 ; Neutropenia D70.9 ; Elevated cholesterol E78.00 and Essential hypertension I10 Alton Durham MD [address] [place] [address] [id number] 09/28/2023 Alton Durham Hypokalemia E87.6 Alton Durham MD [address] [place] [address] [id number] 10/21/2023 Alton Durham Hypokalemia E87.6 Alton Durham MD [address] [place] [address] [id number] 10/25/2023 Alton Durham Hypokalemia E87.6 lAton Durham MD [address] [place] [address] [id number] 11/01/2023 Alton Durham Hypokalemia E87.6 Alton Durham MD [address] [place] [address] [id number] 11/25/2023 Alton Durham Hypokalemia E87.6 Alton Durham MD [address] [place] [address] [id number] 01/13/2024 Alton Durham Hypokalemia E87.6 Alton Durham MD [address] [place] [address] [id number] 02/03/2024 Alton Durham Hx of hypokalemia Z86.39 Alton Durham MD [address] [place] [address] [id number] 04/04/2024 Alton Durham Neutropenia D70.9 Alton Durham MD [address] [place] [address] [id number] 05/09/2024 Alton Durham Gastroesophageal ref lux disease with esophagitis without hemorrhage K21.00 Alton Durham MD [address] [place] [address] [id number] 09/09/2023 Alton Durham Achalasia K22.0 and Atherosclerosis of both carotid arteries I65.23 Alton Durham MD [address] [place] [address] [id number] 06/11/2023 Alton Durham Nausea R11.0 Alton Durham MD [address] [place] [address] [id number] 07/02/2023 Alton Durham Nausea R11.0 and Esophageal dysfunction K22.4 Alton Durham MD [address] [place] [address] [id number] 07/23/2023 Alton Durham Achalasia K22.0 Alton Durham MD [address] [place] [address] [id number] 10/11/2023 Alton Durham Esophageal dysmotili ty K22.4 and Achalasia K22.0 Alton Durham MD [address] [place] [address] [id number] 11/11/2023 Alton Durham Hypokalemia E87.6 ; Esophageal dysmotility K22.4 ; Achalasia K22.0 and Hypotension due to drugs I95.2 Alton Durham MD [address] [place] [address] [id number] 04/14/2024 Alton Durham Neutropenia D70.9 an d Gastroesophageal reflux disease with esophagitis without hemorrhage K21.00 Alton Durham MD [address] [place] [address] [id number] 05/18/2023 Alton Durham MD [address] [place] [address] [id number] 06/08/2023 Alton Durham MD [address] [place] [address] [id number] 06/08/2023 Alton Durham MD [address] [place] [address] [id number] 06/24/2023 Alton Durham Nontoxic single thyr oid nodule E04.1 Alton Durham MD [address] [place] [address] [id number] 06/28/2023 Alton Durham MD [address] [place] [address] [id number] 06/29/2023 Alton Durham MD [address] [place] [address] [id number] 07/02/2023 Alton Durham MD [address] [place] [address] [id number] 07/15/2023 Alton Durham Thyroid nodule E04.1 Alton Durham MD [address] [place] [address] [id number] 09/03/2023 Alton Durham MD [address] [place] [address] [id number] 09/20/2023 Alton Durham MD [address] [place] [address] [id number] 10/21/2023 Alton Durham MD [address] [place] [address] [id number] 10/21/2023 Alton Durham MD [address] [place] [address] [id number] 10/22/2023 Alton Durham MD [address] [place] [address] [id number] 10/22/2023 Alton Durham MD [address] [place], [place] [id number] 12/27/2023 Alton Durham MD [address] [place] [address] [id number] 01/25/2024 Alton Durham ASSESSMENTS Encounter Date Diagnosis [...] - Z86.39) 04/04/2024 Neutropenia (ICD-10 - D70.9) 05/09/2024 Gastroesophageal reflux disease with esophagitis without hemorrhage (ICD-10 - K21.00) 09/09/2023 Achalasia (ICD-10 - K22.0) needs to see specialist..will speak with her gi doctor in 2 weeks 09/09/2023 Atherosclerosis of both carotid arteries (ICD-10 - I65.23) choesterol and lft good, will continue current regiment 06/11/2023 Nausea (ICD-10 - R11.0) will be booked at [facility], pending diagnostic testing 07/02/2023 Nausea (ICD-10 - R11.0) Total time spent on the date of the encounter is 35 minutes including both face to face time spent and time spent reviewing documentation, and counseling the patient. 07/02/2023 Esophageal dysfuncti on (ICD-10 - K22.4) try to get ugi [...] find where surgery is done 10/11/2023 Esophageal dysmotili ty (ICD-10 - K22.4) had esophageal dilitation. not helping. 10/11/2023 Achalasia (ICD-10 - K22.0) going for stomach motility study./ getting ugi tomorrow. pending diagnostic testing 11/11/2023 Hypokalemia (ICD-10 - E87.6) 11/11/2023 Esophageal dysmotili ty (ICD-10 - K22.4) is still present of ugi 04/14/2024 Neutropenia (ICD-10 - D70.9) we are going to repeat her cbc but her wbc has been runnning low for years with a normal differential. 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 07/15/2023 Thyroid nodule (ICD- 10 - E04.1) ordr made and put into the future order folder for 03/14/2024 Thyroid nodule (ICD- 10 - E04.1) will repeat us next year/ Thyroid order printed and put in future folder 03/07/2024 Elevated cholesterol (ICD-10 - E78.00) 09/28/2023 Hypokalemia (ICD-10 - E87.6) 11/11/2023 Achalasia (ICD-10 - K22.0) 06/24/2023 Nontoxic single thyroid nodule (ICD-10 - E04.1) 03/14/2024 Esophageal dysfuncti on (ICD-10 - K22.4) on an incredibly strick diet, will continue current regiment 03/07/2024 Essential hypertensi on (ICD-10 - I10) 11/11/2023 Hypotension due to 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 - I95.2) will hold the lisinopril 03/14/2024 Hypokalemia (ICD-10 - E87.6) stable, will continue to monitor 03/14/2024 Essential hypertensi on (ICD-10 - I10) doing well, will contiue current regiment 03/14/2024 Colon cancer screeni ng (ICD-10 - Z12.11) guaiac negative 03/14/2024 Depression screening (ICD-10 - Z13.31) negative screen PLAN OF TREATMENT Pending Test Test Name Order Date Electrocardiogram (EKG) 01/28/2018 Electrocardiogram (EKG) 06/10/2018 XR GI SERIES 06/11/2023 US THYROID 06/24/2023 Complete Blood Count Auto Diff 4 CT abdomen pelvis wo con 12/21/2022 US thyroid 07/15/2023 Complete Blood Count Auto Diff 5 Potassium 05/09/2024 Future Test Test Name Order Date US THYROID 01/02/2020 US THYROID 04/18/2021 CT chest wo con 07/08/2023 US pelvic and transvaginal 07/30/2023 US thyroid 09/11/2024 Next Appt Details Provider Name:Alton wick, 05/25/2024 10:15:00 AM, [address] [place] [address], [address], [place], [place], [phone], Provider Name:Alton wick, 08/31/2024 07:00:00 AM, [address], [address], [place], [id number], Provider Name:Alton Joiner ier, 09/05/2024 08:45:00 AM, [address], [address], [place], [id number], Provider Name:Alton Joiner ier, 03/09/2025 07:45:00 AM, [address], [address], [place], [id number], Provider Name:Alton Joiner ier, 03/16/2025 08:00:00 AM, [address] [facility], [address] [facility], [place], [id number], Insurance Providers Payer Name Payer Address Payer Phone Subscriber Number Group Number Insured Name Patient Relationship to Insured Coverage Start Date Coverage End Date MEDICARE [address] [place] [address] [id number] Maureen Foreman Self - patient is the insured [facility] [address] [place] [address] [phone] [id number] Maureen Foreman Self - patient is the insured MEDICAL (GENERAL) HISTORY Medical History History ICD Code discussed colonoscopy again 2012,2013 di scussed 2018 cta chest with small nodule [address] of Chest in -2014 (done in 06/2014) Dermatitis due to drugs and medicines ta gamaliel internally Basal cell cancer needs us thyroid 2020 has kidney stone and lithotrypsy 2018 Surgical History Surgery Date(Month/Year) RT Ear Meatoplasty (Dr. Clifton Eason) 10/2019
--- OUTSIDE RECORDS SUMMARY | 2024-05-09 12:09 | XMS_ITS ---
Author Organization [facility] Address [address] [place] [address] Care Team Providers Care Urgent Care Nurse Practitioner Name Role Phone Alton Durham MD Primary Care Provider Bean Cortes Jr Unavailable [phone] REASON FOR VISIT BELCHING Encounters Encounter Location Date Provider Diagnosis [facility] [address] [place] [address] 09/16/2023 Bean Holley Jr PLAN OF TREATMENT No Information
--- OUTSIDE RECORDS SUMMARY | 2024-05-09 12:10 | XMS_ITS | Patient Health Record ---
Author Organization [facility] Address [address] [place] [phone] Care Team Providers Care Basket Hand Braider Name Role Phone Alton Durham MD Primary Care Provider Bean Cortes Jr [phone] REASON FOR REFERRAL No Information SOCIAL HISTORY Sex Assigned At : Social History Observation Description Sex Assigned At Unknown Encounters Encounter Location Date Provider Diagnosis [facility] [address] [place] [phone] 09/16/2023 Bean Holley Jr [facility] [address] [place] [phone] 06/15/2023 Bean Holley Jr PLAN OF TREATMENT No Information Insurance Providers Payer Name Payer Address Payer Phone Subscriber Number Group Number Insured Name Patient Relationship to Insured Coverage Start Date Coverage End Date MEDICARE OF [facility] [address] [place] [address] [id number] ARINA WHITE Self - patient is the insured [facility] [address] [address] [place] [address] [id number] [facility] ARINA WHITE Self - patient is the insured
--- OUTSIDE RECORDS SUMMARY | 2024-05-09 12:10 | XMS_ITS ---
Author Organization [facility] Address [address] [place] [address] Care Team Providers Care Supervisor Stave Cutting Name Role Phone Alton Durham MD Primary Care Provider Bean Cortes Jr Unavailable REASON FOR VISIT cancel appt Encounters Encounter Location Date Provider Diagnosis [facility] [address] [place] [address] 06/15/2023 Bean Holley Jr PLAN OF TREATMENT No Information
== END 2024-05-09 10:52 | disposition home or self-care (01) ==
LOC: HO.LNP 10:51
PROVIDERS: Visit Provider Internal Medicine
DX: K21.00 Gastro-esophageal reflux disease with esophagitis, without bleeding (principal)
CPT/HCPCS: 84132; 85025

== ENCOUNTER 2024-05-15 11:37 | Outpatient (REF) | payer MEDICARE, OTHER, SELFPAY ==
[2024-05-15 13:54] LABS: Alanine Aminotransferase 32 U/L (0-31); Albumin Level 4.2 g/dL (3.5-5.0); Alkaline Phosphatase 99 U/L (39-117); Aspartate Amino Transferase 32 U/L (5-31); Bilirubin Direct 0.1 mg/dL (0.0-0.5); Bilirubin Total 0.4 mg/dL (0.0-1.0); Total Protein 6.8 g/dL (6.5-8.0)
== END 2024-05-15 11:38 | disposition home or self-care (01) ==
LOC: HO.LAB 11:37
PROVIDERS: PCP Internal Medicine; Visit Provider Nurse Practitioner Family
DX: R74.01 Elevation of levels of liver transaminase levels (principal); R10.13 Epigastric pain; R63.4 Abnormal weight loss; K21.00 Gastro-esophageal reflux disease with esophagitis, without bleeding; D72.819 Decreased white blood cell count, unspecified
CPT/HCPCS: 36415; 80076; 99212

== ENCOUNTER 2024-05-15 11:37 | Outpatient (AMB) | payer MEDICARE, OTHER, SELFPAY ==
--- NOTE | 2024-05-15 11:40 | A.OFFVIS_ITS ---
Vital Signs 05/15/24 11:43 05/15/24 12:28 Height 5 ft 8 in Weight 119 lb BMI 18.1 BP 156/70 H 140/70 H Blood Pressure Location Lt brachial Lt brachial Position Sitting Sitting Pulse 71 Intake Visit Reasons: 1 mos follow up Intake Note: Patient 1 month follow up for Epigastric pain. Patient cc: after meal she become with acid reflex with burning sensation and burping with throat discomfort. Field Agronomist Required: No Accompanied by: Self / Same As Patient Allergies cephalexin [From KEFLEX] Allergy (Severe, Verified 05/15/24 11:40) RASH Sulfa (Sulfonamide Antibiotics) [SULFA (SULFONAMIDE ANTIBIOTICS)] Allergy (Severe, Verified 05/15/24 11:40) INTSERNAL AND EXTERNAL RASH/INFECTION Iodinated Contrast Media [IV Dye, Iodine Containing] Allergy (Intermediate, Verified 05/15/24 11:40) HIVES,REDNESS + SWELLING sulfamethoxazole [From BACTRIM] Allergy (Intermediate, Verified 05/15/24 11:40) INTERNAL AND EXTERNAL RASH/ INFECTION stent Allergy (Uncoded 01/07/24 08:55) Vomiting HPI HPI 1 mos follow up: Details: LAST VISIT Epigastric pain Weight loss, unintentional GERD (gastroesophageal reflux disease) Plan Continue Nexium twice a day and Pepcid at bedtime. Avoid dietary triggers. Recommended smaller meals and more often. Staying upright for minimum 3 hours after meals discussed with her. Introduce food slowly per her object oriented programmer recommendations. Continue potassium. Follow-up in 3-4 weeks. Patient is to call if she will have any GI concerning symptoms. She is agreeable to plan of care and verbalizes understanding of instructions. She was given the opportunity to ask questions and all questions answered. ? TODAY'S VISIT Patient is here today for follow-up. Patient reports that she has been feeling fairly well, however she still not every day but at least 3 times a week will have excessive belching and occasional acid reflux especially after dinner. Currently is taking Nexium 20 mg twice a day. Patient denies dyspepsia, dysphagia or odynophagia. She gained 5 lb in 3 weeks. Patient reports appetite is good. Patient continues to drink [employer]life milk and her protein shakes. Patient is eating more often. Patient reports that she have introduced more food and able to tolerate most of it. Patient denies any nausea or vomiting. Reports that she moves her bowels almost every day. Patient is drinking fluids. Denies any abdominal pain or discomfort. Denies any postprandial abdominal bloating TODAY'S VISIT [facility] Medical History (Updated 05/15/24 @ 12:19 by Julee Asher, [facility]) Transaminitis Chronic leukopenia Erosive esophagitis Kidney stone GERD (gastroesophageal reflux disease) High cholesterol HTN (hypertension) Surgical History H/O lithotripsy H/O esophagogastroduodenoscopy (07/09/23) Social History Alcohol intake: never Patient Tobacco Use Status: Never used Tobacco Advance Directives Date on File: 09/22/23 Review of Systems Const Denies weight gain and Denies weight loss ENT Reports no additional complaints, Denies dysphagia and Denies odynophagia Card Reports no additional complaints Resp Reports no additional complaints GI Reports abdominal pain, Reports belching, Denies melena, Reports bloating, Denies change in bowel habits, Denies dysphagia, Denies excessive flatus, Denies dyspepsia, Reports heartburn (Occasional), Denies diarrhea, Denies loose stools, Denies nausea, Denies odynophagia and Denies vomiting Reports no additional complaints Musc Reports no additional complaints Neuro Reports no additional complaints Psych Reports no additional complaints Endo Reports no additional complaints Physical Exam Vital Signs: Last Vital Signs Pulse 71 05/15/24 11:43 BP 140/70 H 05/15/24 12:28 BMI result Body Mass Index 18.1 Const General: no acute distress Orientation/consciousness: patient oriented x3 Resp Effort & Inspection: normal respiratory effort, able to speak in complete sentences, no tracheal deviation and symmetric chest movement Auscultation: clear to auscultation bilaterally Cardio Rate: regular rate GI Inspection: Yes normal to inspection and No distended Palpation (GI): Soft to palpation, not firm, nontender and No hepatosplenomegaly present Auscultation: normal bowel sounds General: Yes no CVA tenderness Back/Spine/Pelvis Back: no CVA tenderness Skin General skin exam: elasticity normal, turgor normal and dry skin Neuro General: patient oriented x3 Psych Appearance: grossly normal Mental Status: mental status grossly normal Assessment & Plan Assessment & Plan (1) Epigastric pain: Code(s): R10.13 - Epigastric pain Category: Medical (2) Weight loss, unintentional: Code(s): R63.4 - Abnormal weight loss Category: Medical (3) GERD (gastroesophageal reflux disease): Code(s): K21.9 - Gastro-esophageal reflux disease without esophagitis Qualifiers: Esophagitis bleeding: without hemorrhage Esophagitis presence: with esophagitis Qualified Code(s): K21.00 - Gastro-esophageal reflux disease with esophagitis, without bleeding (4) Chronic leukopenia: Code(s): D72.819 - Decreased white blood cell count, unspecified Category: Medical (5) Transaminitis: Code(s): R74.01 - Elevation of levels of liver transaminase levels Category: Medical Plan Patient will stop taking Nexium and will try her on pantoprazole twice a day. She will can go back to taking Nexium if pantoprazole is not helpful. Last liver enzymes elevated we will repeated today. MRI of abdomen from December of 2023 showed normal liver and spleen with normal liver morphology. Ultrasound will be ordered to check liver echogenicity. Possible fatty liver disease. Also possibility that her liver enzymes are elevated because she is on rosuvastatin. Leukopenia and lymphopenia is chronic discuss with Dr. Marc and she agrees with a referral to ticker installer. Referral placed. Continue follow- up with object oriented programmer. Follow-up in 3-4 weeks, sooner on as needed basis. She is agreeable to this plan and verbalizes understanding of instructions. She was given the opportunity to ask questions and all questions answered. Thank you for allowing me to participate in her care Orders: Orders US abdomen complete Today R74.01 - Elevation of levels of liver transaminase levels Liver Panel Today R74.01 - Elevation of levels of liver transaminase levels Referrals Hematology & Oncology Referral D72.819 - Decreased white blood cell count, uns pecified Medications: New pantoprazole 20 mg PO BID 60 tabs 3RF Discontinued esomeprazole magnesium Discontinued Reason: Doctor's Order 20 mg PO BID 60 caps 2RF Coding Level of Care Code Est Pt Level 4 (67740) Diagnoses Epigastric pain R10.13 Weight loss, unintentional R63.4 Gastroesophageal reflux disease with esophagitis without hemorrhage K21.00 Esophagitis bleeding: without hemorrhage Esophagitis presence: with esophagitis Chronic leukopenia D72.819 Transaminitis R74.01 Time Spent (min) 35 Comment 25 minutes spent with patient and additional 10 minutes spent reviewing her records
[2024-05-15 11:43] VITALS: BP 156/70; PULSE 71; BMI 18.1
[2024-05-15 12:28] VITALS: BP 140/70
--- OUTSIDE RECORDS SUMMARY | 2024-05-15 13:46 | XMS_ITS ---
Author Organization Alton Durham MD Address [address] [place], [place] [phone] Care Team Providers Care Office Services Clerk Name Role Phone Alton Durham Primary Care Provider RESULTS Component Value Reference Range Notes Complete Blood Count Auto Di ff Reviewed date:05/09/2024 12:31:03 PM Interpretation: Performing Lab:[facility], [address] [place] [phone] Notes/Report: White Blood Count 2.8 4.8-10.8 X10*3/uL [...] Abs Auto 0.000 0.0-0.012 X10*3/uL Potassium Reviewed date:05/09/2024 12:25:38 PM Interpretation: Performing Lab:[facility], [address] [place] [phone] Notes/Report: Potassium 3.9 3.3-5.1 mmol/L REASON FOR VISIT CBS potassium Encounters Encounter Location Date Provider Diagnosis Alton Durham MD [address] [place] [address] [place] [phone] 05/09/2024 Alton Durham Gastroesophageal ref lux disease with esophagitis without hemorrhage K21.00 ASSESSMENTS Encounter Date Diagnosis Assessment Notes Treatment Notes Treatment Clinical Notes 05/09/2024 Gastroesophageal ref lux disease with esophagitis without hemorrhage (ICD-10 - K21.00) PLAN OF TREATMENT Next Appt Details Provider Name:Alton wick, 05/25/2024 10:15:00 AM, [address] [place] [address], [address], [phone], Provider Name:Alton wick, 08/31/2024 07:00:00 AM, [address] [place] [address], [address], [place], [place], [phone], Provider Name:Alton wick, 09/05/2024 08:45:00 AM, [address] [place] [address], [address], [place], [id number], Provider Name:Alton wick, 03/09/2025 07:45:00 AM, [address] [place] [address], [address], [place], [id number], Provider Name:Alton wick, 03/16/2025 08:00:00 AM, [address] [place] [address], [address], [place], [id number],
--- OUTSIDE RECORDS SUMMARY | 2024-05-15 13:46 | XMS_ITS ---
Author Organization Alton Durham MD Address [address] [place], [place] [phone] Care Team Providers Care Sewer Pipe Sorter Name Role Phone JeimyAlton staley Primary Care Provider RESULTS Component Value Reference Range Notes Complete Blood Count Auto Di ff Reviewed date:04/04/2024 12:44:09 PM Interpretation: Performing Lab:[facility], [address] [place] [phone] Notes/Report: White Blood Count 2.7 4.8-10.8 X10*3/uL [...] Potassium Reviewed date:04/04/2024 12:47:19 PM Interpretation: Performing Lab:[facility], [address] [place] [phone] Notes/Report: Potassium 3.9 3.3-5.1 mmol/L REASON FOR VISIT CBC, Potassium Encounters Encounter Location Date Provider Diagnosis Alton Durham MD [address] [place] [address] [place] [phone] 04/04/2024 Alton Durham Neutropenia D70.9 ASSESSMENTS Encounter Date Diagnosis Assessment Notes Treatment Notes Treatment Clinical Notes 04/04/2024 Neutropenia (ICD-10 - D70.9) PLAN OF TREATMENT Next Appt Details Provider Name:Alton wick, 05/25/2024 10:15:00 AM, [address] [place] [address], [address] [place] [address], [phone], Provider Name:Alton wick, 08/31/2024 07:00:00 AM, [address] [place] [address], [address], [phone], Provider Name:Alton wick, 09/05/2024 08:45:00 AM, [address] [place] [address], [address], [place], [phone], Provider Name:Alton wick, 03/09/2025 07:45:00 AM, [address] [place] [address], [address], [place], [phone], Provider Name:Alton wick, 03/16/2025 08:00:00 AM, [address] [place] [address], [address], [place], [phone],
--- OUTSIDE RECORDS SUMMARY | 2024-05-15 13:46 | XMS_ITS ---
Author Organization Alton Durham MD Address [address] [place] [phone] Care Team Providers Care Highway Inspector Name Role Phone Alton Durham Primary Care [...] Location Date Provider Diagnosis Alton Durham MD [address] [place] [address] [place] [phone] 04/14/2024 Alton Durham Neutropenia D70.9 an d [...] a little better/ eating a little better. Next Appt Details Follow Up: 6 Weeks, Reason: Provider Name:Alton wick, 05/25/2024 10:15:00 AM, [address] [place] [address], [address], [place], [phone], Provider Name:Alton wick, 08/31/2024 07:00:00 AM, [address] [place] [address], Suite [facility], [place], [place], [phone], Provider Name:Alton Joiner delano, 09/05/2024 08:45:00 AM, [address], [address], [place], [phone], Provider Name:Alton Joiner delano, 03/09/2025 07:45:00 AM, [address] [facility], [address], [place], [phone], Provider Name:Alton Joiner delano, 03/16/2025 08:00:00 AM, [address] [place] [address], [address], [place], [phone], Progress Notes * Examination Category Sub-Category Detail Notes General Examination GENERAL APPEARANCE: well dev eloped, well nourished , female HEAD: normocephalic HEART: regular rate and rhy thm , no murmurs, rubs, gallops LUNGS: no wheezes, rales, r honchi , good air movement , clear to auscultation bilaterally ABDOMEN: no hepatosplenomegal y SKIN: good turgor
--- OUTSIDE RECORDS SUMMARY | 2024-05-15 13:47 | XMS_ITS | Patient Health Record ---
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 Name Role Phone Alton Durham MD Primary Care Provider Bean Cortes Jr [phone] REASON FOR REFERRAL No Information SOCIAL HISTORY Sex Assigned At : Social History Observation Description Sex Assigned At Unknown Encounters Encounter Location Date Provider Diagnosis [facility] [address] [place] [phone] 09/16/2023 Bean Holley Jr [facility] [address] [place] [phone] 06/15/2023 Bean Holley Jr PLAN OF TREATMENT No Information Insurance Providers Payer Name Payer Address Payer Phone Subscriber Number Group Number Insured Name Patient Relationship to Insured Coverage Start Date Coverage End Date [facility]IC[facility] OF [facility] [address] [place] [address] [phone] [id number] ARINA WHITE Self - patient is the insured [facility] [address] [address] [place] [address] [id number] [facility] ARINA WHITE Self - patient is the insured
--- OUTSIDE RECORDS SUMMARY | 2024-05-15 13:47 | XMS_ITS | Patient Health Record ---
Author Organization Alton Durham MD Address [address] [place] [phone] Care Team Providers Care Software Trainer Name Role Phone Alton Durham Primary Care [...] ff Reviewed date:06/20/2023 05:43:45 PM Interpretation: Performing Lab:[facility], [address] [place] [phone] Notes/Report: White Blood Count 3.2 4.8-10.8 X10*3/uL [...] Panel Reviewed date:06/20/2023 05:35:16 PM Interpretation: Performing Lab:[address] [address] Notes/Report: Bilirubin Total 0.6 0.0-1.0 mg/dL Bilirubin Direct 0.3 0.0-0.5 mg/dL Aspartate Amino Transferase 26 5-31 U/L Alanine Aminotransferase 26 0-31 U/L Total Protein 6.9 6.5-8.0 g/dL Albumin Level 4.3 3.5-5.0 g/dL Alkaline Phosphatase 67 39-117 U/L Basic Metabolic Panel Reviewed date:06/20/2023 05:36:04 PM Interpretation: Performing Lab:[address] [address] Notes/Report: Sodium 141 135-145 mmol/L Potassium 4.1 [...] Glomerular Filt Rate > 60 NOTE: For -Tunisian individuals, multiply the result by 1.210. Chronic Kidney Disease: Estimated GFR < 60 mL/min/1.73m2 Severe Kidney Disease: Estimated GFR < 15 mL/min/1.73m2 Glucose Random 99 60-115 mg/dL Calcium 10.0 8.4-10.2 mg/dL Magnesium Reviewed date:06/20/2023 05:35:36 PM Interpretation: Performing Lab:[facility], [address] [place] [phone] Notes/Report: Magnesium 1.9 1.6-2.6 mg/dL Troponin-I High Sensitivity Reviewed date:06/20/2023 05:35:45 PM Interpretation: Performing Lab:[facility], [address] [place] [phone] Notes/Report: Troponin-I High Sensitivity 4.7 <3.5-17.0 ng/ L [facility] high sensitivity Troponin-I results should be used in conjunction with other diagnostic information such as ECG, clinical observations and information, and patient symptoms to aid in the diagnosis of OR. Thyroid Stimulating Hormone Reviewed date:06/20/2023 05:32:25 PM Interpretation: Performing Lab:[facility], [address] [place] [phone] Notes/Report: Thyroid Stimulating Hormone 0.53 0.32-4.0 uIU/ mL TSH 3rd Generation ([facility]) CT soft tissue neck wo con Reviewed date:06/24/2023 03:09:06 PM Interpretation: Performing Lab: Notes/Report: [address] [address] [address] Scan Report Signed Patient: Maureen Foreman MR#: [id number] : 1940 Acct:[id number] Age/Sex: 83 / F ADM Date: 06/19/23 Loc: HO.ED Attending Dr: Ordering Physician: Kassie Knight Date of Service: 06/19/23 Procedure(s): CT soft tissue neck wo IV con Accession Number(s): [id number] cc: Alton Durham MD; Kassie Knight EXAMINATION: [...] in OV> 06/19/23 1033 DD/ 0837 TD/TT: Fuel Efficient Aircraft Designer: ADAMS Troponin-I High Sensitivity Reviewed date:06/20/2023 05:32:15 PM Interpretation: Performing Lab:[facility], [address] [place] [phone] Notes/Report: Troponin-I High Sensitivity 5.4 <3.5-17.0 ng/ L [facility] high sensitivity Troponin-I results should be used in conjunction with other diagnostic information such as ECG, clinical observations and information, and patient symptoms to aid in the diagnosis of OR. US renal BI Reviewed date:06/29/2023 11:11:00 AM Interpretation: Performing Lab: Notes/Report: [address] [address] Ultrasound Report Signed Patient: Maureen Foreman MR#: [id number] : 1940 Acct:[id number] Age/Sex: 83 / F ADM Date: 06/28/23 Loc: HO.US Attending Dr: Som Mckeon MD Ordering Physician: Som Mckeon MD Date of Service: 06/28/23 Procedure(s): US renal BI Accession Number(s): [id number] cc: Som Mckeon MD; Alton Durham MD [...] MD in OV> 06/29/23523 DD/ 0837 TD/TT: Fuel Efficient Aircraft Designer: Pathology Reviewed date:07/14/2023 02:39:57 PM Interpretation: Performing Lab:[facility], [address] [place] [phone] Notes/Report: FL upper GI series Reviewed date:07/14/2023 02:39:32 PM Interpretation: Performing Lab: Notes/Report: [address] [place] [address] Fluoroscopy Report Signed Patient: Maureen Foreman MR#: [id number] : 1940 Acct:[id number] Age/Sex: 83 / F ADM Date: 07/13/23 Loc: HO.US Attending Dr: Alton Durham MD Ordering Physician: Alton Durham MD Date of Service: 07/13/23 Procedure(s): FL upper GI series Accession Number(s): [id number] cc: Alton Durham MD EXAMINATION: XR FLUOROSCOPY [...] in OV> 07/14/23 1243 DD/ 1100 TD/TT: Fuel Efficient Aircraft Designer: US thyroid Reviewed date:07/15/2023 10:04:09 AM Interpretation: Performing Lab: Notes/Report: [address] [address] Ultrasound Report Signed Patient: Maureen Foreman MR#: [id number] : 1940 Acct:[id number] Age/Sex: 83 / F ADM Date: 07/13/23 Loc: HO.US Attending Dr: Alton Durham MD Ordering Physician: Alton Durham MD Date of Service: 07/13/23 Procedure(s): US thyroid Accession Number(s): [id number] cc: Alton Durham MD EXAMINATION: US THYROID [...] than or equal to 1 cm: 3. Peripheral Edp Equipment Operator nodules are described as follows: 1. [...] thyroid IMPRESSION: Multiple thyroid nodules with largest bilingual inside sales representative as follows: 1. Left inferior TR [...] in OV> 07/14/23 1651 DD/ 1024 TD/TT: Fuel Efficient Aircraft Designer: Marta Allergen Reviewed date:08/13/2023 02:00:51 PM Interpretation: Performing Lab:[facility], [address] [place] [phone] Notes/Report: Rast Allergen SEE NOTE SEE SCANNED RE SULT IN EMR Hold Gold Reviewed date:08/31/2023 11:16:55 AM Interpretation: Performing Lab:[facility], [address] [place] [phone] Notes/Report: Hold Gold See Note Specimen held untested for 24 hours; Call to request Chemistry testing. Complete Blood Count Auto Di ff Reviewed date:08/31/2023 12:37:41 PM Interpretation: Performing Lab:[facility], [address] [place] [phone] Notes/Report: White Blood Count 3.1 4.8-10.8 X10*3/uL [...] Panel Reviewed date:08/31/2023 12:36:40 PM Interpretation: Performing Lab:[facility], [address] [place] [phone] Notes/Report: Bilirubin Total 0.7 0.0-1.0 mg/dL Bilirubin Direct 0.3 0.0-0.5 mg/dL Aspartate Amino Transferase 28 5-31 U/L Alanine Aminotransferase 25 0-31 U/L Total Protein 6.6 6.5-8.0 g/dL Albumin Level 4.2 3.5-5.0 g/dL Alkaline Phosphatase 70 39-117 U/L Lipid Panel with Reflex Reviewed date:08/31/2023 12:36:13 PM Interpretation: Performing Lab:[facility], [address] [place] [phone] Notes/Report: Triglycerides 67 <150 mg/dL Desirable Triglyceride: [...] date:10/12/2023 01:11:48 PM Interpretation: Performing Lab: Notes/Report: [address] [address] [address] Scan Report Signed Patient: Maureen Foreman MR#: [id number] : 1940 Acct:[id number] Age/Sex: 83 / F ADM Date: 09/16/23 Loc: HO.CT Attending Dr: Alton Durham MD Ordering Physician: Alton Durham MD Date of Service: 09/16/23 Procedure(s): CT chest wo IV con Accession Number(s): [id number] cc: Alton Durham MD EXAMINATION: CT CHEST [...] FINDINGS: LUNGS: Biapical pleural-parenchymal scarring is present. [id number] emphysematous changes are seen (for example 3 [...] in OV> 10/12/23 0935 DD/ 0837 TD/TT: Fuel Efficient Aircraft Designer: JOY Complete Blood Count Auto Di ff Reviewed date:09/20/2023 05:22:25 PM Interpretation: Performing Lab:[facility], [address] [place] [phone] Notes/Report: White Blood Count 3.9 4.8-10.8 X10*3/uL [...] Panel Reviewed date:09/18/2023 06:27:11 PM Interpretation: Performing Lab:[facility], [address] [place] [phone] Notes/Report: Bilirubin Total 0.8 0.0-1.0 mg/dL Bilirubin Direct 0.3 0.0-0.5 mg/dL Aspartate Amino Transferase 31 5-31 U/L Alanine Aminotransferase 30 0-31 U/L Total Protein 7.0 6.5-8.0 g/dL Albumin Level 4.5 3.5-5.0 g/dL Alkaline Phosphatase 84 39-117 U/L Basic Metabolic Panel Reviewed date:09/18/2023 06:29:52 PM Interpretation: Performing Lab:[facility], [address] [place] [phone] Notes/Report: Sodium 145 135-145 mmol/L Potassium 3.0 [...] Glomerular Filt Rate > 60 NOTE: For -Tunisian individuals, multiply the result by 1.210. Chronic Kidney Disease: Estimated GFR < 60 mL/min/1.73m2 Severe Kidney Disease: Estimated GFR < 15 mL/min/1.73m2 Glucose Random 103 60-115 mg/dL Calcium 10.3 8.4-10.2 mg/dL Lipase Reviewed date:09/18/2023 06:27:01 PM Interpretation: Performing Lab:[facility], [address] [place] [phone] Notes/Report: Lipase 22 8-78 U/L Potassium Reviewed date:09/23/2023 01:05:42 PM Interpretation: Performing Lab:[facility], [address] [place] [phone] Notes/Report: Potassium 3.0 3.3-5.1 mmol/L Slight Hemoly sis Pathology Reviewed date:09/24/2023 10:02:51 AM Interpretation: Performing Lab:[facility], [address] [place] [phone] Notes/Report: Complete Blood Count Auto Di ff Reviewed date:10/05/2023 10:02:29 AM Interpretation: Performing Lab:[facility], [address] [place] [phone] Notes/Report: White Blood Count 3.1 4.8-10.8 X10*3/uL [...] Panel Reviewed date:10/05/2023 09:55:46 AM Interpretation: Performing Lab:[facility], [address] [place] [phone] Notes/Report: Bilirubin Total 0.8 0.0-1.0 mg/dL Bilirubin Direct 0.3 0.0-0.5 mg/dL Aspartate Amino Transferase 34 5-31 U/L Alanine Aminotransferase 31 0-31 U/L Total Protein 7.1 6.5-8.0 g/dL Albumin Level 4.5 3.5-5.0 g/dL Alkaline Phosphatase 77 39-117 U/L Basic Metabolic Panel Reviewed date:10/07/2023 12:46:16 PM Interpretation: Performing Lab:[facility], [address] [place] [phone] Notes/Report: Sodium 147 135-145 mmol/L Potassium 2.9 [...] Glomerular Filt Rate > 60 NOTE: For -Tunisian individuals, multiply the result by 1.210. Chronic Kidney Disease: Estimated GFR < 60 mL/min/1.73m2 Severe Kidney Disease: Estimated GFR < 15 mL/min/1.73m2 Glucose Random 92 60-115 mg/dL Calcium 10.8 8.4-10.2 mg/dL Magnesium Reviewed date:10/05/2023 09:55:24 AM Interpretation: Performing Lab:[facility], [address] [place] [address] Notes/Report: Magnesium 1.9 1.6-2.6 mg/dL SLIDE REVIEW Reviewed date:10/05/2023 11:59:08 AM Interpretation: Performing Lab:[facility], [address] [place] [address] Notes/Report: SLIDE REVIEW VERIFIED XR chest 2V Reviewed date:10/05/2023 09:57:27 AM Interpretation: Performing Lab: Notes/Report: [address] [address] XRay Report Signed Patient: Maureen Foreman MR#: [id number] : 1940 Acct:[id number] Age/Sex: 83 / F ADM Date: 10/05/23 Loc: .ED Attending Dr: Ordering Physician: Ekaterina Leonardo DO Date of Service: 10/05/23 Procedure(s): XR chest 2V Accession Number(s): [id number] cc: Alton Durham MD; Ekaterina Leonardo DO [...] MD in OV> 10/05/23924 DD/ 0853 TD/TT: Fuel Efficient Aircraft Designer: JV Potassium Reviewed date:10/14/2023 06:10:12 AM Interpretation: Performing Lab:[facility], [address] [place] [phone] Notes/Report: Potassium 3.1 3.3-5.1 mmol/L FL barium swallow Reviewed date:10/22/2023 12:35:07 PM Interpretation: Performing Lab: Notes/Report: [address] [address] Fluoroscopy Report Signed Patient: Maureen Foreman MR#: [id number] : 1940 Acct:[id number] Age/Sex: 83 / F ADM Date: 10/12/23 Loc: HO.KASEYAY Attending Dr: Julee ANAYA Ordering Physician: Julee Asher Date of Service: 10/12/23 Procedure(s): FL barium swallow Accession Number(s): [id number] cc: Alton Durham MD; Julee Asher EXAMINATION: [...] MD in OV> 10/21/231756 DD/ 0858 TD/TT: Fuel Efficient Aircraft Designer: ALISA gastric emptying study Reviewed date:10/18/2023 05:04:10 PM Interpretation: Performing Lab: Notes/Report: [address] [address] Nuclear Medicine Report Signed Patient: Maureen Foreman MR#: [id number] : 1940 Acct:[id number] Age/Sex: 83 / F ADM Date: 10/18/23 Loc: BENJAMIN Attending Dr: Julee Asher [facility] Ordering Physician: Julee Asher [facility] Date of Service: 10/18/23 Procedure(s): NE gastric emptying study Accession Number(s): [id number] cc: Alton Durham MD; Julee Asher [facility] EXAMINATION: NE RADIONUCLIDE SOLID FOOD GASTRIC EMPTYING 4-HOUR STUDY [...] hours 28% 4 hours 5% (normal 0%-10%) NE/NE gastric emptying study IMPRESSION: Normal 4-hour solid [...] in OV> 10/18/23 1440 DD/ 1215 TD/TT: Fuel Efficient Aircraft Designer: KRISTIE Potassium Reviewed date:10/21/2023 05:06:20 PM Interpretation: Performing Lab:[facility], [address] [place] [phone] Notes/Report: Potassium 2.8 3.3-5.1 mmol/L Critical value for test(s): POTS Results called to and read back by: YOSELYN Cotton Person calling:SHAMA Date: 10/21/23 Time: 1124 Potassium Reviewed date:10/26/2023 08:42:40 AM Interpretation: Performing Lab:[facility], [address] [place] [phone] Notes/Report: Potassium 3.4 3.3-5.1 mmol/L Potassium Reviewed date:11/01/2023 12:24:52 PM Interpretation: Performing Lab:[facility], [address] [place] [phone] Notes/Report: Potassium 3.7 3.3-5.1 mmol/L Potassium Reviewed date:11/11/2023 04:20:21 PM Interpretation: Performing Lab:[facility], [address] [place] [phone] Notes/Report: Potassium 4.4 3.3-5.1 mmol/L Potassium Reviewed date:11/25/2023 12:21:33 PM Interpretation: Performing Lab:[facility], [address] [place] [phone] Notes/Report: Potassium 3.9 3.3-5.1 mmol/L XR KUB Reviewed date:01/09/2024 12:30:30 PM Interpretation: Performing Lab: Notes/Report: [address] [address] XRay Report Signed Patient: Maureen Foreman MR#: [id number] : 1940 Acct:[id number] Age/Sex: 83 / F ADM Date: 12/08/23 Loc: HOSEBASTIÁN Attending Dr: Som Mckeon MD Ordering Physician: Som Mckeon MD Date of Service: 12/08/23 Procedure(s): XR KUB Accession Number(s): [id number] cc: Som Mckeon MD; Alton Durham MD [...] 01/06/24 2158 DD/ 1232 TD/TT: 12/08/23 1240 Fuel Efficient Aircraft Designer: JOY Potassium Reviewed date:12/13/2023 12:39:37 PM Interpretation: Performing Lab:[facility], [address] [place] [phone] Notes/Report: Potassium 4.0 3.3-5.1 mmol/L Potassium Reviewed date:01/14/2024 09:08:52 AM Interpretation: Performing Lab:[facility], [address] [place] [phone] Notes/Report: Potassium 3.6 3.3-5.1 mmol/L Slight Hemoly sis Potassium Reviewed date:02/03/2024 12:32:20 PM Interpretation: Performing Lab:[facility], [address] [place] [phone] Notes/Report: Potassium 4.2 3.3-5.1 mmol/L Slight Hemoly sis Complete Blood Count Auto Di ff Reviewed date:03/14/2024 09:33:06 AM Interpretation:see back 03-14-2024 Performing Lab:[facility], [address] [place] [phone] Notes/Report: White Blood Count 2.5 4.8-10.8 X10*3/uL [...] NRBC Abs Auto 0.000 0.0-0.012 X10*3/uL Comprehensive Dresher. Panel Fa st Reviewed date:03/07/2024 04:52:00 PM Interpretation: Performing Lab:[facility], [address] [place] [phone] Notes/Report: Sodium 141 135-145 mmol/L Potassium 3.9 3.3-5.1 mmol/L Slight Hemolysis.Interpret result with caution. Chloride 104 96-108 mmol/L Carbon Dioxide 27 22-29 mmol/L Anion Gap 14 12-20 Blood Urea Nitrogen 23 9-16 mg/dL Creatinine 0.64 0.5-1.4 mg/dL Estimated Glomerular Filt Rate > 60 NOTE: For -Tunisian individuals, multiply the result by 1.210. Chronic [...] Panel Reviewed date:03/07/2024 04:52:17 PM Interpretation: Performing Lab:[facility], [address] [place] [phone] Notes/Report: Triglycerides 63 <150 mg/dL Desirable Triglyceride: [...] t Reviewed date:03/07/2024 04:51:31 PM Interpretation: Performing Lab:[address], [place] [address] Notes/Report: Urine, Clean Catch Color Urine Yellow Appearance Urine Clear PH 6.5 5.0-9.0 Glucose Urine UA Negative Negative mg/dL Urine Blood Negative Negative Specific [place] - Urine 1.020 1.005-1.025 Urine Protein 30 [...] date:04/17/2024 12:23:13 PM Interpretation: Performing Lab: Notes/Report: [address] [address] XRay Report Signed Patient: Maureen Foreman MR#: [id number] : 1940 Acct:[id number] Age/Sex: 83 / F ADM Date: 03/29/24 Loc: CONCHA Attending Dr: Julee Asher [facility] Ordering Physician: Julee Asher Date of Service: 03/29/24 Procedure(s): XR soft tissue neck Accession Number(s): [id number] cc: Alton Durham MD; Julee Asher [facility] EXAMINATION: XR SOFT TISSUE NECK CLINICAL INDICATION: K22.2 - Esophageal obstruction COMPARISON: CT soft tissue neck 06/19/2023. Ultrasound of the thyroid 07/13/2023. TECHNIQUE: 2 views of the soft tissue neck were obtained. Exam submitted for review 04/17/2024 8:16 AM [employer]OUNGE [employer] ATTENDANT. FINDINGS: Soft tissue films of the neck [...] by: Roberto Huffman MD 04/17/2024 09:19 AM [facility] Dictated By: Roberto Huffman MD Signed By: <Electronically signed by Roberto Huffman MD in OV> 04/17/24918 DD/ 01 TD/TT: 03/29/24 1510 Fuel Efficient Aircraft Designer: Complete Blood Count Auto Tonja ff Reviewed date:04/04/2024 12:44:09 PM Interpretation: Performing Lab:[facility], [address] [place] [phone] Notes/Report: White Blood Count 2.7 4.8-10.8 X10*3/uL [...] Potassium Reviewed date:04/04/2024 12:47:19 PM Interpretation: Performing Lab:[facility], [address] [place] [phone] Notes/Report: Potassium 3.9 3.3-5.1 mmol/L MM tomosynthesis screening B I Reviewed date:05/05/2024 04:58:08 PM Interpretation: Performing Lab: Notes/Report: [facility] [address] [place] [address] Mammography Report Signed Patient: Maureen Foreman MR#: [id number] : 1940 Acct:[id number] Age/Sex: 83 / F ADM Date: 04/24/24 Loc: HO.MAMMO Attending Dr: Alton Durham MD Ordering Physician: Alton Durham MD Results: 1Ne gative Date of Service: 04/24/24 Follow Up: 1 Year From Orig ina Mammogram Procedure(s): MM tomosynthesis screening BI Accession Number(s): [id number] cc: Alton Durham MD EXAMINATION: MM SCREENING [...] by: Judy Bravo DO 05/05/2024 04:28 PM [facility] Dictated By: Judy Bravo DO Signed By: <Electronically signed by Judy Bravo DO in OV> 05/05/24 1628 DD/ 0800 TD/TT: 04/24/24 0821 Fuel Efficient Aircraft Designer: Complete Blood Count Auto Di ff Reviewed date:05/09/2024 12:31:03 PM Interpretation: Performing Lab:[facility], [address] [place] [phone] Notes/Report: White Blood Count 2.8 4.8-10.8 X10*3/uL [...] Potassium Reviewed date:05/09/2024 12:25:38 PM Interpretation: Performing Lab:[facility], [address] [place] [phone] Notes/Report: Potassium 3.9 3.3-5.1 mmol/L REASON FOR [...] 03:20:50 PM EDT > patient went to [facility] instead sooner appt Referral Priority Routine [...] Administered Flu Vaccine IM Intramuscular 01/26/2012 Administered [employer] JORDAN Flu Vaccine Unknown 02/11/2012 Administered Flu Vaccine IM Intramuscular 02/22/2013 Administered WALSHAY[employer] ORTEGA Tetanus Unknown 01/29/2006 Administered Prevnar 13 IM Intramuscular 04/10/2013 Administered zzz Unknown 04/10/2013 Administered Flu Vaccine Unknown 02/14/2014 Administered [employer] TDaP Unknown 03/21/2014 Administered [facility] Fluarix Quadrivalent IM Intramuscular 02/26/2015 Administered [employer] Flu Vaccine Unknown 02/15/2016 Administered [employer] Fluarix Quadrivalent Unknown 02/17/2017 Administered [employer] Flu Vaccine IM Intramuscular 01/21/2018 Administered pt wa s given the vaccine at [facility] in [place] on [address] Fluarix Quadrivalent Unknown 02/03/2019 Administered [employer] PPSV23 (Pnemovax) IM Intramuscular 02/10/2019 Administered Influenza High Dose Unknown 01/23/2020 Administered Lauren gonz[employer]GAIN [employer] zzz Unknown 02/10/2019 Administered zInfluenza Unknown 01/23/2020 Administered SARS-COV-2 Moderna Unknown 05/24/2020 Administered SARS-COV-2 Moderna Unknown 06/18/2020 Administered Influenza High Dose Unknown 02/12/2021 Administered Lauren gonzalez's SARS-COV-2 Moderna Unknown 03/18/2021 Administered [facility] Influenza [...] Notes Problem Thyroid nodule (E04.1) Active confirmed 732139950 Problem Neutropenia (D70.9) Active confirmed 16 7162148 Problem Lung nodule seen on imaging study (R91.1) Active confirmed 311999695 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 Non-toxic singl e thyroid nodule (607898412) Problem 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) Active confirmed 4689820 Problem Lumbar disc disease (M51.9) Active confirmed Disorder of lumbar disc (293135721) Problem Essential hypertension (I10) Active confirmed 62058740 Problem Lung nodule (R91.1) Active confirmed 30 0506672 Problem Esophageal dysmotility (K22.4) Active confirmed 633873267 Problem History of kidney stones (Z87.442) Active confirmed 372447220 Problem Cervical disc disease (M50.90) Active confirmed 343908635 Problem Sciatica of left side (M54.32) Active confirmed 96231146 Problem Neutropenia, unspecified type (D70.9) Active confirmed 138432946 Problem 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) Active confirmed 63611061 Problem Sciatica of right side (M54.31) Active confirmed 93775818 Problem Elevated cholesterol (E78.00) Active confirmed 25199869 Problem Esophageal spasm (K22.4) Active confirmed 958205230 Problem Adnexal cyst (N94.9) Active confirmed 38854077024063 Problem Multinodular goiter (E04.2) Active confirmed 071952569 Problem Achalasia (K22.0) Active confirmed 4556 4002 Problem Paresthesia (R20.2) Active confirmed 91 221772 Problem Atherosclerosis of both carotid arteries (I65.23) Active confirmed 342346486383924 Problem Abnormal mammogram of both breasts (R92.8) Active confirmed 770791979 Problem Esophageal dysfunction (K22.4) Active confirmed 426451585 Problem Tingling of right upper extremity (R20.2) Active confirmed 651470553 Problem Gastroesophageal reflux disease with esophagitis without hemorrhage (K21.00) Active confirmed 536316564 Problem Porokeratosis (Q82.8) Active confirmed 027782359 Problem 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 906842468 VITAL SIGNS Blood pressure diastolic 60 mm [...] Alton Durham MD [address] [place] [id number] 12/13/2023 Alton Durham Hypokalemia E87.6 an d Achalasia K22.0 Alton Durham MD [address] [place] [id number] 03/14/2024 Alton Durham Neutropenia D70.9 ; Elevated cholesterol E78.00 ; Thyroid nodule E04.1 ; Esophageal dysfunction K22.4 ; Hypokalemia E87.6 ; Essential hypertension I10 ; Colon cancer screening Z12.11 and Depression screening Z13.31 Alton Durham MD [address] [place] [id number] 08/31/2023 Alton Durham Neutropenia D70.9 an d Elevated cholesterol E78.00 Alton Durham MD [address] [place] [id number] 03/07/2024 Alton Durham Blood tests for rout ine general physical examination Z00.00 ; Neutropenia D70.9 ; Elevated cholesterol E78.00 and Essential hypertension I10 Alton Durham MD [address] [place] [id number] 09/28/2023 Alton Durham Hypokalemia E87.6 Alton Durham MD [address] [place] [address] [id number] 10/21/2023 Alton Durham Hypokalemia E87.6 Alton Durham MD [address] [place] [id number] 10/25/2023 Alton Durham Hypokalemia E87.6 Alton Durham MD [address] [place] [address] [id number] 11/01/2023 Alton Durham Hypokalemia E87.6 Alton Durham MD [address] [place] [address] [id number] 11/25/2023 Alton Durham Hypokalemia E87.6 Alton Durham MD [address] [place] [address] [id number] 01/13/2024 Alton Durham Hypokalemia E87.6 Alton Durham MD [address] [place] [address] [id number] 02/03/2024 Alton Durham Hx of hypokalemia Z86.39 Alton Durham MD [address] [place] [address] [id number] 04/04/2024 Alton Durham Neutropenia D70.9 Alton Durham MD [address] [place] [address] [id number] 05/09/2024 Alton Durham Gastroesophageal ref lux disease with esophagitis without hemorrhage K21.00 Alton Durham MD [address] [place] [address] [id number] 09/09/2023 Alton Durham Achalasia K22.0 and Atherosclerosis of both carotid arteries I65.23 Alton Durham MD [address] [place] [address] [id number] 06/11/2023 Alton Munsonardijessy Nausea R11.0 Alton Durham MD [address] [place] [address] [id number] 07/02/2023 Alton Munsonardijessy Nausea R11.0 and Esophageal dysfunction K22.4 Alton Durham MD [address] [place] [address] [id number] 07/23/2023 Alton Durham Achalasia K22.0 Alton Durham MD [address] [place] [address] [id number] 10/11/2023 Alton Durham Esophageal dysmotili ty K22.4 and Achalasia K22.0 Alton Durham MD [address] [place] [address] [id number] 11/11/2023 Alton Durham Hypokalemia E87.6 ; Esophageal dysmotility K22.4 ; Achalasia K22.0 and Hypotension due to drugs I95.2 Alton Durham MD [address] [place] [address] [id number] 04/14/2024 Alton Durham Neutropenia D70.9 an d Gastroesophageal reflux disease with esophagitis without hemorrhage K21.00 Alton Durham MD [address] [place] [address] [id number] 05/18/2023 Alton Durham MD [address] [place] [address] [id number] 06/08/2023 Alton Durham MD [address] [place] [address] [id number] 06/08/2023 Alton Durham MD [address] [place] [address] [id number] 06/24/2023 Alton Durham Nontoxic single thyr oid nodule E04.1 Alton Durham MD [address] [place] [address] [id number] 06/28/2023 Alton Durham MD [address] [place] [address] [id number] 06/29/2023 Alton Durham MD [address] [place] [address] [id number] 07/02/2023 Alton Durham MD [address] [place] [address] [id number] 07/15/2023 Alton Durham Thyroid nodule E04.1 Alton Durham MD [address] [place] [address] [id number] 09/03/2023 Alton Durham MD [address] [place] [address] [id number] 09/20/2023 Alton Durham MD [address] [place] [address] [id number] 10/21/2023 Alton Durham MD [address] [place] [address] [id number] 10/21/2023 Alton Durham MD [address] [place] [address] [id number] 10/22/2023 Alton Durham MD [address] [place] [address] [id number] 10/22/2023 Alton Durham MD [address] [place] [address] [id number] 12/27/2023 Alton Durham MD [address] [place] [address] [id number] 01/25/2024 Alton Durham ASSESSMENTS Encounter Date Diagnosis [...] (ICD-10 - R11.0) will be booked at [facility], pending diagnostic testing 07/02/2023 Nausea (ICD-10 - [...] Details Provider Name:Alton wick, 05/25/2024 10:15:00 AM, [address] [place] [address], [address], [place], [place], [id number], Provider Name:Alton wick, 08/31/2024 07:00:00 AM, [address], [address], [place], [id number], Provider Name:Alton Joiner ier, 09/05/2024 08:45:00 AM, [address], [address], [place], [id number], Provider Name:Alton Joiner ier, 03/09/2025 07:45:00 AM, [address], [address], [place], [id number], Provider Name:Alton Joiner ier, 03/16/2025 08:00:00 AM, [address] [facility], [address], [place], [id number], Insurance Providers Payer Name Payer Address Payer Phone Subscriber Number Group Number Insured Name Patient Relationship to Insured Coverage Start Date Coverage End Date MEDICARE NHIC CARLOS [address] [place] [address] [id number] Maureen Foreman Self - patient is the insured [facility] [address] [place] [phone] [id number] Maureen Foreman Self - patient is the insured MEDICAL (GENERAL) HISTORY Medical History History ICD Code discussed colonoscopy again 2012,2014 di scussed 2018 cta chest with small nodule [address] of Chest in -2014 (done in 06/2014) Dermatitis due to drugs and medicines ta gamaliel internally Basal cell cancer needs us thyroid 2020 has kidney stone and lithotrypsy 2018 Surgical History Surgery Date(Month/Year) RT Ear Meatoplasty (Dr. Clifton Eason) 10/2019
--- OUTSIDE RECORDS SUMMARY | 2024-05-15 13:47 | XMS_ITS ---
Author Organization [facility] Address [address] [place] [address] Care Team Providers Care Manager Administrative Name Role Phone Alton Durham MD Primary Care Provider Bean Cortes Jr Unavailable [phone] REASON FOR VISIT cancel appt Encounters Encounter Location Date Provider Diagnosis [facility] [address] [place] [address] 06/15/2023 Bean Holley Jr PLAN OF TREATMENT No Information
--- OUTSIDE RECORDS SUMMARY | 2024-05-15 13:47 | XMS_ITS | Data Portability ---
Author Organization [place] [facility] Address [address] [address] Care Team Providers Care Staff Sonographer Name Role Phone GRAHAM HARGROVE Primary Care Provider Assessment No assessment recorded. Plan of Treatment Reminders Order Date Submit Date Provider Last Modified By Organization Details Last Modified Time Details Appointments Establish ed 10 2024 08:20A M TRACEY KAMINSKI MD Not available Not available Not available Establish ed 15 2024 09:00A M YUIDTH CLINE PA-C Not available Not available Not [...] Recorded Time Impacted cerumen in left ear [id number] 18862 Active 2019 Impacted cerumen, left ear; Note: Date Diagnose d: 0 9:06 AM (H61.22) Not Available [facility] 4 02:59:24 Bilatera l diffuse otitis externa [id number] Completed 201912/03/2023 Diffuse otitis externa, bilatera l; Note: Changed from H60.312 to H60.313 ( 0 9:01 AM) , Date Diagnose d: 0 11:52 AM (H60.312 ) Not Available [facility] 4 02:59:21 Cellulit is of both external ears 82262362352 Completed 201912/03/2023 Cellulit is of external ear, bilatera l; Note: Date Diagnose d: 08/10/2019 9:02 AM (H60.13) Not Available [facility] 4 02:59:22 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 90190919984 Active 2019 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 and infectio n; Note: Date Diagnose d: 0 8:43 AM (H61.322 ) Not Available [facility] 4 02:59:21 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 82868842687 Completed 201912/03/2023 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 and infectio n; Note: Date Diagnose d: 0 8:43 AM (H61.321 ) Not Available [facility] 4 02:59:22 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 70721089305 73572 Active 2019 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 and infectio n; Note: Date Diagnose d: 0 8:43 AM (H61.322 ) Not Available [facility] 4 02:59:21 Acute myringit is of right ear 14615632962 22527 Completed 201912/03/2023 Acute myringit is, right ear; Note: Date Diagnose d: 0 10:14 AM (H73.001 ) Not Available [facility] 4 02:59:21 Otitis externa of bilatera l ears 25750047656 82044 Completed 201912/03/2023 Other otitis externa, bilatera l; Note: Date Diagnose d: 09/07/2019 10:30 AM (H60.8X3 ) Not Available [facility] 4 02:59:24 Candidal otitis externa 51105131 Active 2022 Candidal otitis externa; Note: Date Diagnose d: 3 8:45 AM (B37.84) Candid al otitis externa; Note: Date Diagnose d: 0 9:31 AM (B37.84) ; Start Date : 05/18/19 20 Not Available [facility] 4 02:59:22 Sensorin eural hearing loss of bilatera l ears 763714154 Active 2020 Sensorin eural hearing loss, bilatera l; Note: Date Diagnose d: 1 9:19 AM (H90.3) Not Available [facility] 4 02:59:25 Impacted cerumen of bilatera l ears 32562767288 86495 Active 2019 Impacted cerumen, bilatera l; Note: Date Diagnose d: 0 9:31 AM (H61.23) Not Available [facility] 4 02:59:23 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 61512762237 Active 2019 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 and infectio n, bilatera l; Note: Date Diagnose d: 0 9:37 AM (H61.323 ) Not Available [facility] 4 02:59:24 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 95311278713 79371 Active 2019 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 and infectio n, bilatera l; Note: Date Diagnose d: 0 9:37 AM (H61.323 ) Not Available [facility] 4 02:59:24 Follow-u p visit Active 2019 Encounte r for follow-u p examinat ion after complete d treatmen t for conditio ns other than malignan t neoplasm ; Note: Date Diagnose d: 11/02/2019 11:14 AM (Z09) Medica l surveill ance followin g complete d treatmen t; Note: Date Diagnose d: 0 9:50 AM (Z09) ; Start Date : 10/30/19 20 Not Available [facility] 4 02:59:25 Problem Notes None recorded. Procedures Surgical History Date Name Laterality Status Provider Name and Address Organization Details Recorded Time 04/04/20 24 Cerumen removal with microscope left completed TRACEY KAMINSKI MD [address] [place] [address],[address], [address], [facility] 04/03/2024 07:34:32 01/04/20 24 Cerumen removal with microscope left completed TRACEY KAMINSKI MD [address] [place] [address],[address], [address], [place] - [facility] 01/04/2024 09:06:38 10/19/19 24 Cerumen removal with microscope left completed TRACEY KAMINSKI MD [address] [place] [address],[address], [address], [place] - [facility] 10/19/2023 08:46:23 lithotripsy completed Latha Fu [place] - [facility] 10/19/2023 08:30:53 meatoplasty of external ear completed Latha Fu [place] [facility] 10/19/2023 08:31:07 Imaging Results Imaging Date Name Status LastModified by [facility] ation Details LastModified Time 09/27/2018 imaging/diagno [...] Name and Address Organization Details Recorded Time 932102 cephalexi n monohydra te medicatio n other Not available Not available 09/14/2023 49326 8 RxNorm React ion: unkno wn, unspe cifie d;; Not Available [facility] 4 01:22:48 518277 Substance with sulfonami de structure and antibacte rial mechanism of action (substanc e) medicatio n other Not available Not available 09/14/2023 30048 8003 SNOMED React ion: unkno wn, unspe cifie d;; Not Available [facility] 4 01:22:48 720241 Iodinated contrast media (substanc e) medicatio n Not available Not available Not available 10/19/2023 82576 2003 SNOMED Latha monteiro [place] - [facility] 4 08:29:47 Medications Name Sig Start Date Stop Date Status Note LastModified by Organization Details LastModified Time atorvasta tin 40 mg tablet 02/08 completed Medicati on ID: [id number] D uration Value: 90 Brand Name: atorvast [...] mg tablet 04/04 completed Medicati on ID: [id number] B rand Name: senna Se nd Method: E-Prescr ibed Sub s Allowed: subs OK Speci al Instruct ion: TAKE 2 TABLETS BY MOUTH AT BEDTIME FOR CONSTIPA TION Med icationG enericNa me: senna Not Available Not Available Not Available sucralfat e 100 mg/mL oral suspensio n 04/04 completed Medicati on ID: [id number] B rand Name: sucralfa te Send Method: [...] eye drops 10/18 completed Medicati on ID: [id number] D uration Value: 14 Prescri bed By Name: KELLI Barros nd Name: Ciloxan Send Method: E-Prescr ibed Sub s Allowed: subs OK Speci al Instruct ion: 4 drops into affected ear BID X 14 days Med icationG enericNa me: Ciloxan Medicati on ID: [id number] D uration Value: 14 Prescri bed By Name: KELLI Barros nd Name: Ciloxan Send Method: E-Prescr ibed Sub s Allowed: subs OK Speci al Instruct ion: 4 drops into affected ear BID X 14 days Med icationG enericNa me: Ciloxan Not Available Not Available Not Available ciproflox acin 500 mg tablet 1 tablet by mouth 08/02 completed Medicati on ID: [id number] D uration Value: 10 Prescri bed By [...] layed release 04/04 completed Medicati on ID: [id number] B rand Name: pantopra zole Sen d Method: E-Prescr ibed Sub s Allowed: subs OK [facility] pantopra zole Not Available Not Available Not Available clotrimaz ole-betam ethasone 1 %-0.05 % topical cream Apply 1 a small amount to affected area three times a day 10/18 completed Medicati on ID: [id number] D uration Value: 14 Prescri bed By Name: Musa Ramirez nd Name: clotrima zole-bet amethaso ne Send Method: E-Prescr ibed Sub s Allowed: subs ELIZABETH Hernandez al Instruct ion: Apply with fingerti p to external ear Medi cationGe nericNam e: clotrima zole-bet amethaso ne Medic ation ID: [id number] D uration Value: 14 Prescri bed By Name: Musa Ramirez nd Name: clotrima zole-bet amethaso ne Send Method: E-Prescr ibed Sub s Allowed: subs OK Speci al Instruct ion: Apply with fingerti p to external ear Medi cationGe nericNam e: clotrima zole-bet amethaso ne Not Available Not Available Not Available clotrimaz ole 1 % topical solution 10/18 completed Medicati on ID: [id number] D uration Value: 14 Brand Name: clotrima zole Sen d Method: E-Prescr ibed Sub s Allowed: subs OK Speci al Instruct ion: 4 drops to affected ear three times a day Medi cationGe nericNam e: clotrima zole Med ication ID: [id number] D uration Value: 14 Brand Name: clotrima [...] affected area 10/18 completed Medicati on ID: [id number] D uration Value: 14 Brand Name: mupiroci n Send Method: E-Prescr ibed Sub s Allowed: subs OK Medic ationGen ericName : mupiroci n Medica tion ID: [id number] D uration Value: 14 Brand Name: mupiroci n Send Method: E-Prescr ibed Sub s Allowed: subs OK Medic ationGen ericName : mupiroci n Not Available Not Available Not Available cefuroxim e axetil 500 mg tablet 1 tablet by mouth 10/18 completed Medicati on ID: [id number] D uration Value: 14 Brand Name: cefuroxi me axetil S end Method: E-Prescr ibed Sub s Allowed: subs OK Medic ationGen ericName : cefuroxi me axetil M edicatio n ID: [id number] D uration Value: 14 Brand Name: cefuroxi me axetil S end Method: E-Prescr ibed Sub s Allowed: subs OK Medic ationGen ericName : cefuroxi me axetil Not Available Not Available Not Available multivita min capsule 2019 active Medicati on ID: [id number] B rand Name: multivit anderson Sen d Method: E-Prescr ibed Sub s Allowed: subs OK Medic ationGen ericName : multivit anderson Not Available Not Available Not Available oxycodone 5 mg tablet 1 tablet by mouth 10/18 completed Medicati on ID: [id number] D uration Value: 3 Brand Name: oxycodon e Send Method: E-Prescr ibed Sub s Allowed: subs OK Medic ationGen ericName : oxycodon e Medica tion ID: [id number] D uration Value: 3 Brand Name: oxycodon e Send Method: E-Prescr ibed Sub s Allowed: subs OK Medic ationGen ericName : oxycodon e Not Available Not Available Not Available neomycin 3.5 mg/g-poly myxin B 10,000 unit/g-de xameth 0.1 % eye oint 10/25 completed Medicati on ID: [id number] P yady d By Name: Musa Ramirez nd Name: neomycin -polymyx in B-dexame th Send Method: E-Prescr ibed Sub s Allowed: subs OK Speci al Instruct ion: apply to both ear canals TID Medi cationGe nericNam e: neomycin -polymyx in B-dexame th Not Available Not Available Not Available Ciprodex 0.3 %-0.1 % ear drops,luiz pension 4 drop 10/18 completed Medicati on ID: [id number] D uration Value: 14 Brand Name: Ciprodex Send Method: E-Prescr ibed Sub s Allowed: subs OK Medic ationGen ericName : Ciprodex Medicat ion ID: [id number] D uration Value: 14 Brand Name: Ciprodex [...] topical ointment 10/18 completed Medicati on ID: [id number] D uration Value: 30 Brand Name: Joseph gonzalez Send Method: E-Prescr ibed Sub s Allowed: subs OK Speci al Instruct ion: apply to bith ears canals three times a day Medi cationGe nericNam e: Machopo lisa Medi cation ID: [id number] D uration Value: 30 Brand Name: Joseph [...] Note [id number] TRACEY KAMINSKI MD [facility] [address] [address] 10/19/2023 08:21:18 10/21/2023 12:28:05 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 Impacted c erumen in left ear 3976832193 368475 H61.22 [id number] TRACEY KAMINSKI MD [facility] [address] [address] 04/04/2024 07:58:18 04/04/2024 08:33:09 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 3061027504 646798 H61.322 The right external auditory canal remains [...] be having her follow-up with a physician hotel administrative assistant going forward for cerumen removal. She is always welcome to come back to see me if she wants to proceed with left-sided meatoplast y. Impacted c erumen in left ear 9963417638 278461 H61.22 Health Concerns Section Related Observation LastModified by Organization Detai ls LastModified Time None Recorded Concern Status LastModified by Organization Details LastModified Time None Recorded Advance Directives Directive None Recorded Payers Encounter Date Sequence Insurance Name Policy Number Policy Chi Covered Member ID Chi Member ID Guarantor Name 10/19/2023 1 [place] [employer] Maureen Francisco Javier Thomasdziel [id number] 2 Maureen J Williamdziel 10/19/2023 2 UNICARE - SENIOR SERVICES PLAN F (MEDICARE SUPPLEMENT) [id number] Maureen Francisco Javier Williamdziel [id number] Maureen Mcintyre Williamdziel 01/04/2024 1 [place] Maureen Francisco Javier Thomasdziel [id number] 2 Maureen Francisco Javier Kurdziel 01/04/2024 2 [employer]IC[employer] - SENIOR SERVICES PLAN F (MEDICARE SUPPLEMENT) [id number] Maureen Francisco Javier Thomasdziel [id number] Maureen Francisco Javier Kurdziel 04/04/2024 2 UNICARE - GIC INDEMNITY PLAN (MEDICARE SUPPLEMENT) [id number] Maureen Francisco Javier Williamdziel [id number] Maureen Francisco Javier Kurdziel 04/04/2024 1 [place] Maureen Francisco Javier Thomasdziel [id number] 2 Maureen Francisco Javier Kurdziel Notes Date [...] accompanied by difficulty hearing. TRACEY KAMINSKI MD [address] [place] [address], [address], [facility] 10/19/2023 08:51:52 01/04/2024 text/html 83-year-old markus flores presents for cerumen removal. She has a history of bilateral external auditory canals stenosis. Meatoplasty done in 2019 on the right side with resulting resolution of the stenosis on the right. She reports the right ear is feeling great. Recent blockage sensation on the left accompanied by difficulty hearing. TRACEY KAMINSKI MD [address] [facility],[address], [address], [facility] 01/04/2024 09:08:08 04/04/2024 text/html 83-year-old femlolita flores presents for cerumen removal. She has a history of bilateral external auditory canals stenosis. Meatoplasty done in 2019 on the right side with resulting resolution of the stenosis on the right. She reports the right ear is feeling great. Recent blockage sensation on the left accompanied by difficulty hearing. TRACEY KAMINSKI MD 100 [facility], [place], [address], [facility] 04/04/2024 08:38:51 OBGyn Episode No OBEpisode recorded.
--- OUTSIDE RECORDS SUMMARY | 2024-05-15 13:47 | XMS_ITS ---
Author Organization [facility] Address [address] [place] [address] Care Team Providers Care Ending Machine Operator Name Role Phone Alton Durham MD Primary Care Provider Bean Cortes Jr Unavailable [phone] REASON FOR VISIT BELCHING Encounters Encounter Location Date Provider Diagnosis [facility] [address] [place] [address] 09/16/2023 Bean Holley Jr PLAN OF TREATMENT No Information
== END 2024-05-15 14:45 | disposition home or self-care (01) ==
PROVIDERS: PCP Internal Medicine; Visit Provider Nurse Practitioner Family
DX: R10.13 Epigastric pain (principal); R63.4 Abnormal weight loss; K21.00 Gastro-esophageal reflux disease with esophagitis, without bleeding; D72.819 Decreased white blood cell count, unspecified; R74.01 Elevation of levels of liver transaminase levels
CPT/HCPCS: 99214

== ENCOUNTER 2024-05-16 09:17 | Emergency (ER) | payer MEDICARE, OTHER, SELFPAY ==
--- NOTE | ~2024-05-16 | CT_ITS ---
EXAMINATION: CT CERVICAL SPINE WITHOUT CONTRAST CLINICAL INFORMATION: Status post fall. COMPARISON: None available. TECHNIQUE: Contiguous axial images through the cervical spine using 3 mm collimation with bone and soft tissue algorithm. Sagittal and coronal reformatted images acquired. This CT examination was performed using dose optimization techniques as appropriate, variously including the following: *Automated exposure control *Adjustment of mA and/or kV according to patient size (this includes techniques or standardized protocols for targeted exams where dose is matched to indication/reason for exam; i.e. extremities or head) *Use of iterative reconstruction technique. DLP: 240 mGy centimeters. FINDINGS: Craniocervical junction is intact. Multilevel marginal osteophyte formation, subchondral cyst formation, decreased intervertebral disc height, endplate sclerosis and vacuum phenomenon, C3 C7 more conspicuous at C5-6 and C6-7 levels. Under calcinosis, intervertebral disc C3-4. Grade 1 anterolisthesis, C2-3, C3-4 and C7-T1 likely degenerative. Facet joint hypertrophy bilaterally, C3-4 to C7-T1. C1 is intact. C2 is intact. C3 is intact. C4 is intact. C5 is intact. C6 is intact. C7 is intact. No gross prevertebral compartment hematoma. Osteopenia versus osteoporosis. Calcified plaques in the carotid arteries, bilaterally. Bilateral apical lung scarring. CT/CT cervical spine wo IV con IMPRESSION: Multilevel cervical spondylosis C3 C7 without acute fracture or trauma-related listhesis. Fleischner guidelines were followed. Electronically signed by: Wilberto Cardoso MD 05/16/2024 12:38 PM [facility]
--- NOTE | ~2024-05-16 | CT_ITS ---
EXAMINATION: CT HEAD AND FACIAL BONES WITHOUT CONTRAST CLINICAL INFORMATION: Fall, head strike. COMPARISON: None available. TECHNIQUE: Contiguous axial imaging was performed from the skull base to vertex, and also including axial CT imaging of the maxillofacial bones without intravenous administration of contrast. Sagittal, coronal, and thin section axial reformatted images were constructed from the axial data set. This CT examination was performed using dose optimization techniques as appropriate, variously including the following: *Automated exposure control *Adjustment of mA and/or kV according to patient size (this includes techniques or standardized protocols for targeted exams where dose is matched to indication/reason for exam; i.e. extremities or head) *Use of iterative reconstruction technique DLP: 615 mGy-cm (CT Head) 215 mGy-cm (CT Facial Bones) FINDINGS: There is no evidence of intracranial hemorrhage or extra-axial fluid collection. There is no mass effect, or edema. No CT evidence of acute territorial infarct. Ventricles, sulci, and cisterns are normal in size and configuration for patient age. No hydrocephalus. No midline shift. 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 Mild low density supratentorial white matter changes, in keeping with small vessel ischemic change. Normal sella. Mild atheromatous calcification of the bilateral carotid siphons. There is left preseptal and bryan-zygomatic soft tissue swelling. There is diastases of the left frontozygomatic suture. There is a subtle fracture of the left lower lobe 4, measuring approximately 9 mm in transverse, by 13 mm in AP diameter. There is mild swelling of the left inferior rectus muscle. There is approximately 2 mm of herniation of the inferior belly of the inferior rectus muscle into the bony defect. (Series 24, image 85). There is a subtle fracture of the lateral orbital apex (series 21, image 44), nondisplaced. I do not appreciate a left orbital superior or medial wall fracture. The paranasal sinuses, mastoid air cells, and tympanic cavities are normally aerated. No suspicious bony abnormalities. There are no additional fractures. The remainder of the maxillofacial bones are intact. The mandible is intact. 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 Incidental note made of a periapical lucency with cortical buccal dehiscence involving tooth #13 (series 21, image 26). CT/CT facial bones wo IV con IMPRESSION: 1. No acute intracranial abnormalities. No calvarial fracture. 2. There is left preseptal and bryan-zygomatic soft tissue swelling and laceration. 3. There is a mild diastases of the frontozygomatic suture of the left lateral orbit, and there is an extremely subtle minimally displaced left orbital floor fracture measuring 9 x 13 mm, with 2 mm of depression into the maxillary sinus. Subtle fracture of the left lateral orbit near the orbital apex, nondisplaced. 4. There is mild enlargement/swelling of the inferior rectus muscle a small amount herniation of the inferior belly into the fracture defect by 2 mm. Correlate for left inferior rectus entrapment. 5. No additional fractures identified. 6. See the body of report for additional ancillary findings. Electronically signed by: Roberto Huffman MD 05/16/2024 12:52 PM [facility]
[2024-05-16 09:59] VITALS: BP 184/88; PULSE 88; RESP 20; TEMP 35.9; O2SAT 99; BMI 18.1
--- OUTSIDE RECORDS SUMMARY | 2024-05-16 10:06 | XMS_ITS ---
Author Organization Alton Durham MD Address [address] [place], [place] [id number] Care Team Providers Care Product Development Engineer Name Role Phone JeimyAlton staley Primary Care Provider RESULTS Component Value Reference Range Notes Complete Blood Count Auto Di ff Reviewed date:04/04/2024 12:44:09 PM Interpretation: Performing Lab:[facility], [address] [place] [phone] Notes/Report: White Blood Count 2.7 4.8-10.8 X10*3/uL [...] Potassium Reviewed date:04/04/2024 12:47:19 PM Interpretation: Performing Lab:[facility], [address] [place] [phone] Notes/Report: Potassium 3.9 3.3-5.1 mmol/L REASON FOR VISIT CBC, Potassium Encounters Encounter Location Date Provider Diagnosis Alton Durham MD [address] [place] [address] [place] [id number] 04/04/2024 Alton Durham Neutropenia D70.9 ASSESSMENTS Encounter Date Diagnosis Assessment Notes Treatment Notes Treatment Clinical Notes 04/04/2024 Neutropenia (ICD-10 - D70.9) PLAN OF TREATMENT Next Appt Details Provider Name:Alton wick, 05/25/2024 10:15:00 AM, [address] [place] [address], [address] [place] [address], [phone], Provider Name:Alton wick, 08/31/2024 07:00:00 AM, [address] [place] [address], [address], [phone], Provider Name:Alton wick, 09/05/2024 08:45:00 AM, [address] [place] [address], [address], [place], [phone], Provider Name:Alton wick, 03/09/2025 07:45:00 AM, [address] [place] [address], [address], [place], [phone], Provider Name:Alton wick, 03/16/2025 08:00:00 AM, [address] [place] [address], [address], [place], [phone],
--- OUTSIDE RECORDS SUMMARY | 2024-05-16 10:06 | XMS_ITS ---
Author Organization Alton Durham MD Address [address] [place], [place] [id number] Care Team Providers Care Fiber Analyst Name Role Phone Alton Durham Primary Care Provider RESULTS Component Value Reference Range Notes Complete Blood Count Auto Di ff Reviewed date:05/09/2024 12:31:03 PM Interpretation: Performing Lab:[facility], [address] [place] [phone] Notes/Report: White Blood Count 2.8 4.8-10.8 X10*3/uL [...] Potassium Reviewed date:05/09/2024 12:25:38 PM Interpretation: Performing Lab:[facility], [address] [place] [phone] Notes/Report: Potassium 3.9 3.3-5.1 mmol/L REASON FOR VISIT CBS potassium Encounters Encounter Location Date Provider Diagnosis Alton Durham MD [address] [place] [address] [place] [phone] 05/09/2024 Alton Durham Gastroesophageal ref lux disease with esophagitis without hemorrhage K21.00 ASSESSMENTS Encounter Date Diagnosis Assessment Notes Treatment Notes Treatment Clinical Notes 05/09/2024 Gastroesophageal ref lux disease with esophagitis without hemorrhage (ICD-10 - K21.00) PLAN OF TREATMENT Next Appt Details Provider Name:Alton wick, 05/25/2024 10:15:00 AM, [address] [place] [address], [address], [id number], Provider Name:Alton wick, 08/31/2024 07:00:00 AM, [address] [place] [address], [address], [place], [place], [phone], Provider Name:Alton wick, 09/05/2024 08:45:00 AM, [address] [place] [address], [address], [place], [id number], Provider Name:Alton wick, 03/09/2025 07:45:00 AM, [address] [place] [address], [address], [place], [id number], Provider Name:Alton wick, 03/16/2025 08:00:00 AM, [address] [place] [address], [address], [place], [id number],
--- OUTSIDE RECORDS SUMMARY | 2024-05-16 10:06 | XMS_ITS ---
Author Organization Alton Durham MD Address [address] [place] [phone] Care Team Providers Care Manager Services Name Role Phone Alton Durham Primary Care [...] Location Date Provider Diagnosis Alton Durham MD [address] [place] [address] [place] [phone] 04/14/2024 Alton Durham Neutropenia D70.9 an d [...] Reason: Provider Name:Alton wick, 05/25/2024 10:15:00 AM, [address] [place] [address], [address], [place], [phone], Provider Name:Alton wick, 08/31/2024 07:00:00 AM, [address] [place] [address], Suite [facility], [place], [phone], Provider Name:Alton Joiner delano, 09/05/2024 08:45:00 AM, [address], [address], [place], [id number], Provider Name:Alton Joiner delano, 03/09/2025 07:45:00 AM, [address] [facility], [address], [place], [phone], Provider Name:Alton Joiner delano, 03/16/2025 08:00:00 AM, [address] [place] [address], [address], [place], [id number], Progress Notes * Examination Category Sub-Category Detail Notes General Examination GENERAL APPEARANCE: well dev eloped, well nourished , female HEAD: normocephalic HEART: regular rate and rhy thm , no murmurs, rubs, gallops LUNGS: no wheezes, rales, r honchi , good air movement , clear to auscultation bilaterally ABDOMEN: no hepatosplenomegal y SKIN: good turgor
--- OUTSIDE RECORDS SUMMARY | 2024-05-16 10:07 | XMS_ITS ---
Author Organization [facility] Address [address] [place] [address] Care Team Providers Care Color Straining Bag Washer Name Role Phone Alton Durham MD Primary Care Provider Bean Cortes Jr Unavailable REASON FOR VISIT BELCHING Encounters Encounter Location Date Provider Diagnosis [facility] [address] [place] [address] 09/16/2023 Bean Holley Jr PLAN OF TREATMENT No Information
--- OUTSIDE RECORDS SUMMARY | 2024-05-16 10:07 | XMS_ITS | Patient Health Record ---
Author Organization [facility] Address [address] [place] [phone] Care Team Providers Care Fish Dressing Machine Feeder Name Role Phone Alton Durham MD Primary Care Provider Bean Cortes Jr [phone] REASON FOR REFERRAL No Information SOCIAL HISTORY Sex Assigned At : Social History Observation Description Sex Assigned At Unknown Encounters Encounter Location Date Provider Diagnosis [facility] [address] [place] [phone] 09/16/2023 Bean Holley Jr [facility] [address] [place] [phone] 06/15/2023 Bean Holley Jr PLAN OF TREATMENT No Information Insurance Providers Payer Name Payer Address Payer Phone Subscriber Number Group Number Insured Name Patient Relationship to Insured Coverage Start Date Coverage End Date MEDICARE OF [facility] [address] [place] [address] [phone] [id number] ARINA WHITE Self - patient is the insured [facility] [address] [address] [place] [address] [id number] [facility] ARINA WHITE Self - patient is the insured
--- OUTSIDE RECORDS SUMMARY | 2024-05-16 10:07 | XMS_ITS ---
Author Organization [facility] Address [address] [place] [address] Care Team Providers Care Mining Engineer Name Role Phone Alton Durham MD Primary Care Provider Bean Cortes Jr Unavailable REASON FOR VISIT cancel appt Encounters Encounter Location Date Provider Diagnosis [facility] [address] [place] [address] 06/15/2023 Bean Holley Jr PLAN OF TREATMENT No Information
--- OUTSIDE RECORDS SUMMARY | 2024-05-16 10:07 | XMS_ITS | Patient Health Record ---
Author Organization Alton Durham MD Address [address] [place] [phone] Care Team Providers Care Ammonia Nitrate Operator Name Role Phone Alton Durham Primary [facility] [...] ff Reviewed date:06/20/2023 05:43:45 PM Interpretation: Performing Lab:[facility], [address] [place] [phone] Notes/Report: White Blood Count 3.2 4.8-10.8 X10*3/uL [...] Panel Reviewed date:06/20/2023 05:35:16 PM Interpretation: Performing Lab:[address] [address] Notes/Report: Bilirubin Total 0.6 0.0-1.0 mg/dL Bilirubin Direct 0.3 0.0-0.5 mg/dL Aspartate Amino Transferase 26 5-31 U/L Alanine Aminotransferase 26 0-31 U/L Total Protein 6.9 6.5-8.0 g/dL Albumin Level 4.3 3.5-5.0 g/dL Alkaline Phosphatase 67 39-117 U/L Basic Metabolic Panel Reviewed date:06/20/2023 05:36:04 PM Interpretation: Performing Lab:[address] [address] Notes/Report: Sodium 141 135-145 mmol/L Potassium 4.1 [...] Glomerular Filt Rate > 60 NOTE: For -Taiwanese individuals, multiply the result by 1.210. Chronic Kidney Disease: Estimated GFR < 60 mL/min/1.73m2 Severe Kidney Disease: Estimated GFR < 15 mL/min/1.73m2 Glucose Random 99 60-115 mg/dL Calcium 10.0 8.4-10.2 mg/dL Magnesium Reviewed date:06/20/2023 05:35:36 PM Interpretation: Performing Lab:[facility], [address] [place] [phone] Notes/Report: Magnesium 1.9 1.6-2.6 mg/dL Troponin-I High Sensitivity Reviewed date:06/20/2023 05:35:45 PM Interpretation: Performing Lab:[facility], [address] [place] [phone] Notes/Report: Troponin-I High Sensitivity 4.7 <3.5-17.0 ng/ L [facility] high sensitivity Troponin-I results should be used in conjunction with other diagnostic information such as ECG, clinical observations and information, and patient symptoms to aid in the diagnosis of MT. Thyroid Stimulating Hormone Reviewed date:06/20/2023 05:32:25 PM Interpretation: Performing Lab:[facility], [address] [place] [phone] Notes/Report: Thyroid Stimulating Hormone 0.53 0.32-4.0 uIU/ mL TSH 3rd Generation ([facility]) CT soft tissue neck wo con Reviewed date:06/24/2023 03:09:06 PM Interpretation: Performing Lab: Notes/Report: [address] [address] [address] Scan Report Signed Patient: Maureen Foreman MR#: [id number] : 1940 Acct:[id number] Age/Sex: 83 / F ADM Date: 06/19/23 Loc: HO.ED Attending Dr: Ordering Physician: Kassie Knight Date of Service: 06/19/23 Procedure(s): CT soft tissue neck wo IV con Accession Number(s): [id number] cc: Alton Durham MD; Kassie Knight EXAMINATION: [...] in OV> 06/19/23 1033 DD/ 0837 TD/TT: Bat Lathe Operator: ADAMS Troponin-I High Sensitivity Reviewed date:06/20/2023 05:32:15 PM Interpretation: Performing Lab:[facility], [address] [place] [phone] Notes/Report: Troponin-I High Sensitivity 5.4 <3.5-17.0 ng/ L [facility] high sensitivity Troponin-I results should be used in conjunction with other diagnostic information such as ECG, clinical observations and information, and patient symptoms to aid in the diagnosis of MT. US renal BI Reviewed date:06/29/2023 11:11:00 AM Interpretation: Performing Lab: Notes/Report: [address] [address] Ultrasound Report Signed Patient: Maureen Foreman MR#: [id number] : 1940 Acct:[id number] Age/Sex: 83 / F ADM Date: 06/28/23 Loc: HO.US Attending Dr: Som Mckeon MD Ordering Physician: Som Mckeon MD Date of Service: 06/28/23 Procedure(s): US renal BI Accession Number(s): [id number] cc: Som Mckeon MD; Alton Durham MD [...] MD in OV> 06/29/23523 DD/ 0837 TD/TT: Bat Lathe Operator: Pathology Reviewed date:07/14/2023 02:39:57 PM Interpretation: Performing Lab:[facility], [address] [place] [phone] Notes/Report: FL upper GI series Reviewed date:07/14/2023 02:39:32 PM Interpretation: Performing Lab: Notes/Report: [address] [place] [address] Fluoroscopy Report Signed Patient: Maureen Foreman MR#: [id number] : 1940 Acct:[id number] Age/Sex: 83 / F ADM Date: 07/13/23 Loc: HO.US Attending Dr: Alton Durham MD Ordering Physician: Alton Durham MD Date of Service: 07/13/23 Procedure(s): FL upper GI series Accession Number(s): [id number] cc: Alton Durham MD EXAMINATION: XR FLUOROSCOPY [...] in OV> 07/14/23 1243 DD/ 1100 TD/TT: Bat Lathe Operator: US thyroid Reviewed date:07/15/2023 10:04:09 AM Interpretation: Performing Lab: Notes/Report: [address] [address] Ultrasound Report Signed Patient: Maureen Foreman MR#: [id number] : 1940 Acct:[id number] Age/Sex: 83 / F ADM Date: 07/13/23 Loc: HO.US Attending Dr: Alton Durham MD Ordering Physician: Alton Durham MD Date of Service: 07/13/23 Procedure(s): US thyroid Accession Number(s): [id number] cc: Alton Durham MD EXAMINATION: US THYROID [...] than or equal to 1 cm: 3. Studio Hand nodules are described as follows: 1. Location: [...] thyroid IMPRESSION: Multiple thyroid nodules with largest associate sales representative as follows: 1. Left inferior [...] in OV> 07/14/23 1651 DD/ 1024 TD/TT: Bat Lathe Operator: Marta Allergen Reviewed date:08/13/2023 02:00:51 PM Interpretation: Performing Lab:[facility], [address] [place] [phone] Notes/Report: Rast Allergen SEE NOTE SEE SCANNED RE SULT IN EMR Hold Gold Reviewed date:08/31/2023 11:16:55 AM Interpretation: Performing Lab:[facility], [address] [place] [phone] Notes/Report: Hold Gold See Note Specimen held untested for 24 hours; Call to request Chemistry testing. Complete Blood Count Auto Di ff Reviewed date:08/31/2023 12:37:41 PM Interpretation: Performing Lab:[facility], [address] [place] [phone] Notes/Report: White Blood Count 3.1 4.8-10.8 X10*3/uL [...] Panel Reviewed date:08/31/2023 12:36:40 PM Interpretation: Performing Lab:[facility], [address] [place] [phone] Notes/Report: Bilirubin Total 0.7 0.0-1.0 mg/dL Bilirubin Direct 0.3 0.0-0.5 mg/dL Aspartate Amino Transferase 28 5-31 U/L Alanine Aminotransferase 25 0-31 U/L Total Protein 6.6 6.5-8.0 g/dL Albumin Level 4.2 3.5-5.0 g/dL Alkaline Phosphatase 70 39-117 U/L Lipid Panel with Reflex Reviewed date:08/31/2023 12:36:13 PM Interpretation: Performing Lab:[facility], [address] [place] [phone] Notes/Report: Triglycerides 67 <150 mg/dL Desirable Triglyceride: [...] date:10/12/2023 01:11:48 PM Interpretation: Performing Lab: Notes/Report: [address] [address] [address] Scan Report Signed Patient: Maureen Foreman MR#: [id number] : 1940 Acct:[id number] Age/Sex: 83 / F ADM Date: 09/16/23 Loc: HO.CT Attending Dr: Alton Durham MD Ordering Physician: Alton Durham MD Date of Service: 09/16/23 Procedure(s): CT chest wo IV con Accession Number(s): [id number] cc: Alton Durham MD EXAMINATION: CT CHEST [...] FINDINGS: LUNGS: Biapical pleural-parenchymal scarring is present. [id number] emphysematous changes are seen (for example 3 [...] in OV> 10/12/23 0935 DD/ 0837 TD/TT: Bat Lathe Operator: JOY Complete Blood Count Auto Di ff Reviewed date:09/20/2023 05:22:25 PM Interpretation: Performing Lab:[facility], [address] [place] [phone] Notes/Report: White Blood Count 3.9 4.8-10.8 X10*3/uL [...] Panel Reviewed date:09/18/2023 06:27:11 PM Interpretation: Performing Lab:[facility], [address] [place] [phone] Notes/Report: Bilirubin Total 0.8 0.0-1.0 mg/dL Bilirubin Direct 0.3 0.0-0.5 mg/dL Aspartate Amino Transferase 31 5-31 U/L Alanine Aminotransferase 30 0-31 U/L Total Protein 7.0 6.5-8.0 g/dL Albumin Level 4.5 3.5-5.0 g/dL Alkaline Phosphatase 84 39-117 U/L Basic Metabolic Panel Reviewed date:09/18/2023 06:29:52 PM Interpretation: Performing Lab:[facility], [address] [place] [phone] Notes/Report: Sodium 145 135-145 mmol/L Potassium 3.0 [...] Glomerular Filt Rate > 60 NOTE: For -Taiwanese individuals, multiply the result by 1.210. Chronic Kidney Disease: Estimated GFR < 60 mL/min/1.73m2 Severe Kidney Disease: Estimated GFR < 15 mL/min/1.73m2 Glucose Random 103 60-115 mg/dL Calcium 10.3 8.4-10.2 mg/dL Lipase Reviewed date:09/18/2023 06:27:01 PM Interpretation: Performing Lab:[facility], [address] [place] [phone] Notes/Report: Lipase 22 8-78 U/L Potassium Reviewed date:09/23/2023 01:05:42 PM Interpretation: Performing Lab:[facility], [address] [place] [phone] Notes/Report: Potassium 3.0 3.3-5.1 mmol/L Slight Hemoly sis Pathology Reviewed date:09/24/2023 10:02:51 AM Interpretation: Performing Lab:[facility], [address] [place] [phone] Notes/Report: Complete Blood Count Auto Di ff Reviewed date:10/05/2023 10:02:29 AM Interpretation: Performing Lab:[facility], [address] [place] [phone] Notes/Report: White Blood Count 3.1 4.8-10.8 X10*3/uL [...] Panel Reviewed date:10/05/2023 09:55:46 AM Interpretation: Performing Lab:[facility], [address] [place] [phone] Notes/Report: Bilirubin Total 0.8 0.0-1.0 mg/dL Bilirubin Direct 0.3 0.0-0.5 mg/dL Aspartate Amino Transferase 34 5-31 U/L Alanine Aminotransferase 31 0-31 U/L Total Protein 7.1 6.5-8.0 g/dL Albumin Level 4.5 3.5-5.0 g/dL Alkaline Phosphatase 77 39-117 U/L Basic Metabolic Panel Reviewed date:10/07/2023 12:46:16 PM Interpretation: Performing Lab:[facility], [address] [place] [phone] Notes/Report: Sodium 147 135-145 mmol/L Potassium 2.9 [...] Glomerular Filt Rate > 60 NOTE: For -Taiwanese individuals, multiply the result by 1.210. Chronic Kidney Disease: Estimated GFR < 60 mL/min/1.73m2 Severe Kidney Disease: Estimated GFR < 15 mL/min/1.73m2 Glucose Random 92 60-115 mg/dL Calcium 10.8 8.4-10.2 mg/dL Magnesium Reviewed date:10/05/2023 09:55:24 AM Interpretation: Performing Lab:[facility], [address] [place] [address] Notes/Report: Magnesium 1.9 1.6-2.6 mg/dL SLIDE REVIEW Reviewed date:10/05/2023 11:59:08 AM Interpretation: Performing Lab:[facility], [address] [place] [address] Notes/Report: SLIDE REVIEW VERIFIED XR chest 2V Reviewed date:10/05/2023 09:57:27 AM Interpretation: Performing Lab: Notes/Report: [address] [address] XRay Report Signed Patient: Maureen Foreman MR#: [id number] : 1940 Acct:[id number] Age/Sex: 83 / F ADM Date: 10/05/23 Loc: .ED Attending Dr: Ordering Physician: Ekaterina Leonardo DO Date of Service: 10/05/23 Procedure(s): XR chest 2V Accession Number(s): [id number] cc: Alton Durham MD; Ekaterina Leonardo DO [...] MD in OV> 10/05/23924 DD/ 0853 TD/TT: Bat Lathe Operator: JV Potassium Reviewed date:10/14/2023 06:10:12 AM Interpretation: Performing Lab:[facility], [address] [place] [phone] Notes/Report: Potassium 3.1 3.3-5.1 mmol/L FL barium swallow Reviewed date:10/22/2023 12:35:07 PM Interpretation: Performing Lab: Notes/Report: [address] [address] Fluoroscopy Report Signed Patient: Maureen Foreman MR#: [id number] : 1940 Acct:[id number] Age/Sex: 83 / F ADM Date: 10/12/23 Loc: HO.KASEYAY Attending Dr: Julee ANAYA Ordering Physician: Julee Asher Date of Service: 10/12/23 Procedure(s): FL barium swallow Accession Number(s): [id number] cc: Alton Durham MD; Julee Asher EXAMINATION: [...] MD in OV> 10/21/231756 DD/ 0858 TD/TT: Bat Lathe Operator: ALISA gastric emptying study Reviewed date:10/18/2023 05:04:10 PM Interpretation: Performing Lab: Notes/Report: [address] [address] Nuclear Medicine Report Signed Patient: Maureen Foreman MR#: [id number] : 1940 Acct:[id number] Age/Sex: 83 / F ADM Date: 10/18/23 Loc: BENJAMIN Attending Dr: Julee Asher [facility] Ordering Physician: Julee Asher [facility] Date of Service: 10/18/23 Procedure(s): CA gastric emptying study Accession Number(s): [id number] cc: Alton Durham MD; Julee Asher [facility] EXAMINATION: CA RADIONUCLIDE SOLID FOOD GASTRIC EMPTYING 4-HOUR STUDY [...] hours 28% 4 hours 5% (normal 0%-10%) CA/CA gastric emptying study IMPRESSION: Normal 4-hour solid [...] in OV> 10/18/23 1440 DD/ 1215 TD/TT: Bat Lathe Operator: KRISTIE Potassium Reviewed date:10/21/2023 05:06:20 PM Interpretation: Performing Lab:[facility], [address] [place] [phone] Notes/Report: Potassium 2.8 3.3-5.1 mmol/L Critical value for test(s): POTS Results called to and read back by: YOSELYN Cotton Person calling:SHAMA Date: 10/21/23 Time: 1124 Potassium Reviewed date:10/26/2023 08:42:40 AM Interpretation: Performing Lab:[facility], [address] [place] [phone] Notes/Report: Potassium 3.4 3.3-5.1 mmol/L Potassium Reviewed date:11/01/2023 12:24:52 PM Interpretation: Performing Lab:[facility], [address] [place] [phone] Notes/Report: Potassium 3.7 3.3-5.1 mmol/L Potassium Reviewed date:11/11/2023 04:20:21 PM Interpretation: Performing Lab:[facility], [address] [place] [phone] Notes/Report: Potassium 4.4 3.3-5.1 mmol/L Potassium Reviewed date:11/25/2023 12:21:33 PM Interpretation: Performing Lab:[facility], [address] [place] [phone] Notes/Report: Potassium 3.9 3.3-5.1 mmol/L XR KUB Reviewed date:01/09/2024 12:30:30 PM Interpretation: Performing Lab: Notes/Report: [address] [address] XRay Report Signed Patient: Maureen Foreman MR#: [id number] : 1940 Acct:[id number] Age/Sex: 83 / F ADM Date: 12/08/23 Loc: HOSEBASTIÁN Attending Dr: Som Mckeon MD Ordering Physician: Som Mckeon MD Date of Service: 12/08/23 Procedure(s): XR KUB Accession Number(s): [id number] cc: Som Mckeon MD; Alton Durham MD [...] 01/06/24 2158 DD/ 1232 TD/TT: 12/08/23 1240 Bat Lathe Operator: JOY Potassium Reviewed date:12/13/2023 12:39:37 PM Interpretation: Performing Lab:[facility], [address] [place] [phone] Notes/Report: Potassium 4.0 3.3-5.1 mmol/L Potassium Reviewed date:01/14/2024 09:08:52 AM Interpretation: Performing Lab:[facility], [address] [place] [phone] Notes/Report: Potassium 3.6 3.3-5.1 mmol/L Slight Hemoly sis Potassium Reviewed date:02/03/2024 12:32:20 PM Interpretation: Performing Lab:[facility], [address] [place] [phone] Notes/Report: Potassium 4.2 3.3-5.1 mmol/L Slight Hemoly sis Complete Blood Count Auto Di ff Reviewed date:03/14/2024 09:33:06 AM Interpretation:see back 03-14-2024 Performing Lab:[facility], [address] [place] [phone] Notes/Report: White Blood Count 2.5 4.8-10.8 X10*3/uL [...] NRBC Abs Auto 0.000 0.0-0.012 X10*3/uL Comprehensive [place]. Panel Fa st Reviewed date:03/07/2024 04:52:00 PM Interpretation: Performing Lab:[facility], [address] [place] [phone] Notes/Report: Sodium 141 135-145 mmol/L Potassium 3.9 3.3-5.1 mmol/L Slight Hemolysis.Interpret result with caution. Chloride 104 96-108 mmol/L Carbon Dioxide 27 22-29 mmol/L Anion Gap 14 12-20 Blood Urea Nitrogen 23 9-16 mg/dL Creatinine 0.64 0.5-1.4 mg/dL Estimated Glomerular Filt Rate > 60 NOTE: For -Taiwanese individuals, multiply the result by 1.210. Chronic [...] Panel Reviewed date:03/07/2024 04:52:17 PM Interpretation: Performing Lab:[facility], [address] [place] [phone] Notes/Report: Triglycerides 63 <150 mg/dL Desirable Triglyceride: [...] t Reviewed date:03/07/2024 04:51:31 PM Interpretation: Performing Lab:[address], [place] [address] Notes/Report: Urine, Clean Catch Color Urine Yellow Appearance Urine Clear PH 6.5 5.0-9.0 Glucose Urine UA Negative Negative mg/dL Urine Blood Negative Negative Specific [place] - Urine 1.020 1.005-1.025 Urine Protein 30 [...] date:04/17/2024 12:23:13 PM Interpretation: Performing Lab: Notes/Report: [address] [address] XRay Report Signed Patient: Maureen Foreman MR#: [id number] : 1940 Acct:[id number] Age/Sex: 83 / F ADM Date: 03/29/24 Loc: CONCHA Attending Dr: Julee Asher [facility] Ordering Physician: Julee Asher Date of Service: 03/29/24 Procedure(s): XR soft tissue neck Accession Number(s): [id number] cc: Alton Durham MD; Julee Asher [facility] EXAMINATION: XR SOFT TISSUE NECK CLINICAL INDICATION: K22.2 - Esophageal obstruction COMPARISON: CT soft tissue neck 06/19/2023. Ultrasound of the thyroid 07/13/2023. TECHNIQUE: 2 views of the soft tissue neck were obtained. Exam submitted for review 04/17/2024 8:16 AM [facility]. FINDINGS: Soft tissue films of the neck [...] by: Roberto Huffman MD 04/17/2024 09:19 AM [facility] Dictated By: Roberto Huffman MD Signed By: <Electronically signed by Roberto Huffman MD in OV> 04/17/24918 DD/ 01 TD/TT: 03/29/24 1510 Bat Lathe Operator: Complete Blood Count Auto Tonja ff Reviewed date:04/04/2024 12:44:09 PM Interpretation: Performing Lab:[facility], [address] [place] [phone] Notes/Report: White Blood Count 2.7 4.8-10.8 X10*3/uL [...] Potassium Reviewed date:04/04/2024 12:47:19 PM Interpretation: Performing Lab:[facility], [address] [place] [phone] Notes/Report: Potassium 3.9 3.3-5.1 mmol/L MM tomosynthesis screening B I Reviewed date:05/05/2024 04:58:08 PM Interpretation: Performing Lab: Notes/Report: [facility] [address] [place] [address] Mammography Report Signed Patient: Maureen Foreman MR#: [id number] : 1940 Acct:[id number] Age/Sex: 83 / F ADM Date: 04/24/24 Loc: HO.MAMMO Attending Dr: Alton Durham MD Ordering Physician: Alton Durham MD Results: 1Ne gative Date of Service: 04/24/24 Follow Up: 1 Year From Orig ina Mammogram Procedure(s): MM tomosynthesis screening BI Accession Number(s): [id number] cc: Alton Durham MD EXAMINATION: MM SCREENING [...] by: Judy Bravo DO 05/05/2024 04:28 PM [facility] Dictated By: Judy Bravo DO Signed By: <Electronically signed by Judy Bravo DO in OV> 05/05/24 1628 DD/ 0800 TD/TT: 04/24/24 0821 Bat Lathe Operator: Complete Blood Count Auto Di ff Reviewed date:05/09/2024 12:31:03 PM Interpretation: Performing Lab:[facility], [address] [place] [phone] Notes/Report: White Blood Count 2.8 4.8-10.8 X10*3/uL [...] Potassium Reviewed date:05/09/2024 12:25:38 PM Interpretation: Performing Lab:[facility], [address] [place] [phone] Notes/Report: Potassium 3.9 3.3-5.1 mmol/L Liver Panel Reviewed date:05/15/2024 02:16:26 PM Interpretation: Performing Lab:[facility], [address] [place] [phone] Notes/Report: Bilirubin Total 0.4 0.0-1.0 mg/dL Bilirubin Direct 0.1 0.0-0.5 mg/dL Aspartate Amino Transferase 32 5-31 U/L Alanine Aminotransferase 32 0-31 U/L Total Protein 6.8 6.5-8.0 g/dL Albumin Level 4.2 3.5-5.0 g/dL Alkaline Phosphatase 99 39-117 U/L REASON FOR REFERRAL Reason belching Diagnosis 1 [...] 03:20:50 PM EDT > patient went to [facility] instead sooner appt Referral Priority Routine [...] Administered Flu Vaccine IM Intramuscular 01/26/2012 Administered [employer] Flu Vaccine Unknown 02/11/2012 Administered Flu Vaccine IM Intramuscular 02/22/2013 Administered [employer] Tetanus Unknown 01/29/2006 Administered Prevnar 13 IM Intramuscular 04/10/2013 Administered zzz Unknown 04/10/2013 Administered Flu Vaccine Unknown 02/14/2014 Administered [employer] TDaP Unknown 03/21/2014 Administered [facility] Fluarix Quadrivalent IM Intramuscular 02/26/2015 [facility] Unknown 02/15/2016 [facility] 02/17/2017 [facility] Flu Vacc[facility] IM Intramuscular 01/21/2018 Administered pt wa s given the vaccine at [facility] in [place] on [address] Fluarix Quadrivalent Unknown 02/03/2019 Administered [employer] PPSV23 (Pnemovax) IM Intramuscular 02/10/2019 Administered Influenza High Dose Unknown 01/23/2020 Administered [facility] [employer] zzz Unknown 02/10/2019 Administered zInfluenza Unknown 01/23/2020 [...] Notes Problem Thyroid nodule (E04.1) Active confirmed 532119637 Problem Neutropenia (D70.9) Active confirmed 16 4628114 Problem Lung nodule seen on imaging study (R91.1) Active confirmed 789718872 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 Non-toxic singl e thyroid nodule (547272475) Problem 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) Active confirmed 1896169 Problem Lumbar disc disease (M51.9) Active confirmed Disorder of lumbar disc (209438338) Problem Essential hypertension (I10) Active confirmed 48407303 Problem Lung nodule (R91.1) Active confirmed 30 4368285 Problem Esophageal dysmotility (K22.4) Active confirmed 290584123 Problem History of kidney stones (Z87.442) Active confirmed 727224192 Problem Cervical disc disease (M50.90) Active confirmed 451051805 Problem Sciatica of left side (M54.32) Active confirmed 15894056 Problem Neutropenia, unspecified type (D70.9) Active confirmed 404705022 Problem 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) Active confirmed 99896269 Problem Sciatica of right side (M54.31) Active confirmed 68543898 Problem Elevated cholesterol (E78.00) Active confirmed 66268432 Problem Esophageal spasm (K22.4) Active confirmed 727439113 Problem Adnexal cyst (N94.9) Active confirmed 52198630373347 Problem Multinodular goiter (E04.2) Active confirmed 952788418 Problem Achalasia (K22.0) Active confirmed 4556 4002 Problem Paresthesia (R20.2) Active confirmed 91 683077 Problem Atherosclerosis of both carotid arteries (I65.23) Active confirmed 695705435744874 Problem Abnormal mammogram of both breasts (R92.8) Active confirmed 030593923 Problem Esophageal dysfunction (K22.4) Active confirmed 259421578 Problem Tingling of right upper extremity (R20.2) Active confirmed 165972891 Problem Gastroesophageal reflux disease with esophagitis without hemorrhage (K21.00) Active confirmed 148006471 Problem Porokeratosis (Q82.8) Active confirmed 965282399 Problem 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 129133954 VITAL SIGNS Blood pressure diastolic 60 mm [...] Alton Durham MD [address] [place] [id number] 12/13/2023 Alton Durham Hypokalemia E87.6 an d Achalasia K22.0 Alton Durham MD [address] [place] [id number] 03/14/2024 Alton Durham Neutropenia D70.9 ; Elevated cholesterol E78.00 ; Thyroid nodule E04.1 ; Esophageal dysfunction K22.4 ; Hypokalemia E87.6 ; Essential hypertension I10 ; Colon cancer screening Z12.11 and Depression screening Z13.31 Alton Durham MD [address] [place] [id number] 08/31/2023 Alton Durham Neutropenia D70.9 an d Elevated cholesterol E78.00 Alton Durham MD [address] [place] [id number] 03/07/2024 Alton Durham Blood tests for rout ine general physical examination Z00.00 ; Neutropenia D70.9 ; Elevated cholesterol E78.00 and Essential hypertension I10 Alton Durham MD [address] [place] [address] [id number] 09/28/2023 Alton Bombardier Hypokalemia E87.6 Alton Durham MD [address] [place] [id number] 10/21/2023 Altonchepe Durham Hypokalemia E87.6 Alton Durham MD [address] [place] [address] [id number] 10/25/2023 Alton Jeimyardijessy Hypokalemia E87.6 Alton Durham MD [address] [place] [address] [id number] 11/01/2023 Alton Jeimyardijessy Hypokalemia E87.6 Alton Durham MD [address] [place] [address] [id number] 11/25/2023 Altonchepe Durham Hypokalemia E87.6 Alton Durham MD [address] [place] [address] [id number] 01/13/2024 Altonchepe Munsonardijessy Hypokalemia E87.6 Alton Durham MD [address] [place] [address] [id number] 02/03/2024 Alton Durham Hx of hypokalemia Z86.39 Alton Durham MD [address] [place] [address] [id number] 04/04/2024 Alton Jeimyardijessy Neutropenia D70.9 Alton Durham MD [address] [place] [address] [id number] 05/09/2024 Alton Durham Gastroesophageal ref lux disease with esophagitis without hemorrhage K21.00 Alton Durham MD [address] [place] [address] [id number] 09/09/2023 Alton Jeimyardier Achalasia K22.0 and Atherosclerosis of both carotid arteries I65.23 Alton Durham MD [address] [place] [address] [id number] 06/11/2023 Alton Bombardier Nausea R11.0 Alton Durham MD [address] [place] [address] [id number] 07/02/2023 Alton Bombardier Nausea R11.0 and Esophageal dysfunction K22.4 Alton Durham MD [address] [place] [address] [id number] 07/23/2023 Alton Durham Achalasia K22.0 Alton Durham MD [address] [place] [address] [id number] 10/11/2023 Alton Durham Esophageal dysmotili ty K22.4 and Achalasia K22.0 Alton Durham MD [address] [place] [address] [id number] 11/11/2023 Alton Durham Hypokalemia E87.6 ; Esophageal dysmotility K22.4 ; Achalasia K22.0 and Hypotension due to drugs I95.2 Alton Durham MD [address] [place] [address] [id number] 04/14/2024 Alton Durham Neutropenia D70.9 an d Gastroesophageal reflux disease with esophagitis without hemorrhage K21.00 Alton Durham MD [address] [place] [address] [id number] 05/18/2023 Alton Durham MD [address] [place] [address] [id number] 06/08/2023 Alton Durham MD [address] [place] [address] [id number] 06/08/2023 Alton Durham MD [address] [place] [address] [id number] 06/24/2023 Alton Durham Nontoxic single thyr oid nodule E04.1 Alton Durham MD [address] [place] [address] [id number] 06/28/2023 Alton Durham MD [address] [place] [address] [id number] 06/29/2023 Alton Durham MD [address] [place] [address] [id number] 07/02/2023 Alton Durham MD [address] [place] [address] [id number] 07/15/2023 Alton Durham Thyroid nodule E04.1 Alton Durham MD [address] [place] [address] [id number] 09/03/2023 Alton Durham MD [address] [place] [address] [id number] 09/20/2023 Alton Durham MD [address] [place] [address] [id number] 10/21/2023 Alton Durham MD [address] [place] [address] [id number] 10/21/2023 Alton Durham MD [address] [place] [address] [id number] 10/22/2023 Alton Durham MD [address] [place] [address] [id number] 10/22/2023 Alton Durham MD [address] [place] [address] [id number] 12/27/2023 Alton Durham MD [address] [place] [address] [id number] 01/25/2024 Alton Durham ASSESSMENTS Encounter Date Diagnosis [...] (ICD-10 - R11.0) will be booked at [facility], pending diagnostic testing 07/02/2023 Nausea (ICD-10 - [...] Next Appt Details Provider Name:Alton Joiner ier, 05/25/2024 10:15:00 AM, [address] [place] [address], [address] [facility], [place], [place], [id number], Provider Name:Alton Joiner ier, 08/31/2024 07:00:00 AM, [address] [place] [address], [address] [facility], [place], [place], [id number], Provider Name:Alton Joiner ier, 09/05/2024 08:45:00 AM, [address] [place] [address], [address] [facility], [place], [place], [id number], Provider Name:Alton Joiner ier, 03/09/2025 07:45:00 AM, [address] [place] [address], [address] [facility], [place], [place], [id number], Provider Name:Alton Joiner ier, 03/16/2025 08:00:00 AM, [address] [place] [address], [address] [facility], [place], [id number], Insurance Providers Payer Name Payer Address Payer Phone Subscriber Number Group Number Insured Name Patient Relationship to Insured Coverage Start Date Coverage End Date [employer] [address] [place] [address] [id number] Maureen Foreman Self - patient is the insured [facility] [address] [place] [phone] [id number] Maureen Foreman Self - patient is the insured MEDICAL (GENERAL) HISTORY Medical History History ICD Code discussed colonoscopy again 2012,2013 di scussed 2018 cta chest with small nodule [address] of Chest in -2014 (done in 06/2014) Dermatitis due to drugs and medicines ta gamaliel internally Basal cell cancer needs us thyroid 2020 has kidney stone and lithotrypsy 2019 Surgical History Surgery Date(Month/Year) RT Ear Meatoplasty (Dr. Clifton Eason) 10/2019
--- NOTE | 2024-05-16 15:20 | ED_ITS ---
HPI - Fall General Chief Complaint: Fall Stated Complaint: Fall - facial lac Time Seen by Provider: 05/16/24 15:08 Source: patient and RN notes reviewed Mode of arrival: ambulatory Limitations: no limitations History of Present Illness ED Provider: Kassie Knight PA-C HPI Narrative: This is a 83-year-old female, with a history of esophageal dysmotility, GERD, schatzki's ring s/p dilation on 09/22/23 with Hudson, HTN, hypokalemia, HLD, who presents emergency department complaints of right-sided facial pain status post mechanical fall. Patient reports that she accidentally tripped and fell on cement striking her right side of her face, denies LOC. She states that she was feeling well prior to the fall. Denies any vision changes, pain with movement of the eye, difficulty with movement of the eye, severe headache, dizziness, blurred vision, chest pain, shortness for breath, abdominal pain, nausea, vomiting or diarrhea. Denies taking any medications prior to arrival. She is not on anticoagulation. No other complaints or concerns at this time. MD complaint: fall Onset (ago): hour(s) Fall from: standing Fall witnessed: yes, by family Place fall occurred: street Loss of consciousness: none Context: tripped/slipped Location of injury: face Severity: moderate Quality: aching Associated symptoms (after fall): denies Related Data Home Medications ?Medication ?Instructions ?Recorded ?Confirmed rosuvastatin 40 mg tablet 40 mg PO DAILY 02/07/21 01/07/24 Previous Rx's ?Medication ?Instructions ?Recorded vonoprazan 20 mg tablet (Voquezna) 20 mg PO DAILY #14 tabs 09/14/23 cetirizine 10 mg tablet (Zyrtec) 10 mg PO BEDTIME allergy symptoms 09/21/23 #30 tabs pyridoxine (vitamin B6) 50 mg 50 mg PO DAILY 90 days #90 tabs 01/07/24 tablet sennosides 8.6 mg tablet (Natural 8.6 mg PO BEDTIME constipation #90 01/17/24 Senna Laxative) tabs potassium chloride 20 mEq oral 20 meq PO .every other day #30 ea 01/25/24 packet famotidine 40 mg tablet 40 mg PO BEDTIME #90 tabs 03/29/24 simethicone 125 mg chewable tablet 125 mg PO BID-TID PRN abdominal 03/29/24 (Gas Relief (simethicone)) distention #90 tabs pantoprazole 20 mg tablet,delayed 20 mg PO BID #60 tabs 05/15/24 release amoxicillin 875 mg-potassium 1 tab PO BID 7 days #14 tabs 05/16/24 clavulanate 125 mg tablet Allergies Allergy/AdvReac Type Severity Reaction Status Date / Time cephalexin [From KEFLEX] Allergy Severe RASH Verified 05/16/24 10:01 Sulfa (Sulfonamide Allergy Severe INTSERNAL Verified 05/16/24 10:01 Antibiotics) AND [SULFA (SULFONAMIDE EXTERNAL ANTIBIOTICS)] RASH/INFECTION Iodinated Contrast Media Allergy Intermediate HIVES,REDNESS Verified 05/16/24 10:01 [IV Dye, Iodine Containing] + SWELLING sulfamethoxazole Allergy Intermediate INTERNAL Verified 05/16/24 10:01 [From BACTRIM] AND EXTERNAL RASH/ INFECTION stent Allergy Vomiting Uncoded 05/16/24 10:01 Review of Systems Review of Systems: Yes all other systems are reviewed and are negative Constitutional: Constitutional: Reports as per [facility] Past Medical History Medical History (Updated 05/16/24 @ 16:59 by BRANNON Mora) Transaminitis Chronic leukopenia Erosive esophagitis Kidney stone GERD (gastroesophageal reflux disease) High cholesterol HTN (hypertension) Surgical History H/O lithotripsy H/O esophagogastroduodenoscopy (07/09/23) Social History Social History Alcohol intake: never Patient Tobacco Use Status: Never used Tobacco Advance Directives: Yes Advance Directives on File: Yes Advance Directives Date on File: 09/22/23 Physical Exam Vital Signs: Vital Signs: Last Vital Signs Temp 0 F L 05/16/24 17:55 Pulse 83 05/16/24 17:55 Resp 16 05/16/24 17:55 BP 183/89 H 05/16/24 17:55 Pulse Ox 97 05/16/24 17:55 O2 Del Method Room Air 05/16/24 17:55 BMI result Body Mass Index 18.1 Const: General: cooperative, comfortable and no acute distress Orientation/consciousness: patient oriented x3 Limitations: no limitations HEENT: Head: Yes normal to inspection, Yes normocephalic and Yes atraumatic Ears: hearing grossly normal bilaterally General nose exam: Normal external nose present Face and sinus: Yes normal facial exam Mouth: Normal oral and palatal mucosa present, oropharynx normal and moist mucous membranes Throat: Yes posterior oropharynx normal Eyes: Other: Right eye, with periorbital ecchymosis seen, with 2cm partial-thickness laceration noted to the left eyebrow, positive active bleeding, superficial abrasion noted to her inferior orbital region. Patient has full extraocular movements, with no difficulty, pupils are responsive, equal. No evidence of entrapment. General: appearance normal, both eyes and all related structures Eyelids: Yes eyelids normal Conjunctivae: conjunctivae normal Sclerae: sclerae normal Pupils: Equal, round and reactive pupils present EOM: EOMs intact bilaterally Neck: Other: No cervical midline spine tenderness. Neck: Yes normal visual inspection, Yes full ROM and Yes no lymphadenopathy Lymphatic: no lymphadenopathy noted Chest: Chest palpation & inspection: normal inspection of the chest Resp: Effort & Inspection: normal respiratory effort and able to speak in complete sentences Auscultation: clear to auscultation bilaterally, no crackles, no rales, no rhonchi and no wheezes Cardio: Rate: regular rate Rhythm: regular rhythm Heart sounds: S1 normal heart sound present and S2 normal heart sound present GI: Inspection: Yes normal to inspection Skin: General skin exam: no rashes or lesions noted Trauma: no lacerations or abrasions Wounds: no wounds Neuro: General: patient oriented x3 and moves all extremities Cranial nerves: Yes Equal, round and reactive pupils present Extrem: General: Yes normal to inspection Right upper extremity: normal to inspection Left upper extremity: normal to inspection Right lower extre mity: normal to inspection Left lower extremity: normal to inspection Medications Administered Discontinued Medications Generic Name Dose Route Start Last Admin Trade Name Freq PRN Reason Stop Dose Admin Bacitracin 1 appl 05/16/24 16:52 05/16/24 16:59 Bacitracin Oint 0.9 Gm Packet TOPICAL 05/16/24 16:53 1 appl ONCE ONE Administration Protocol Diphtheria/Tetanus/Acell Pertussis 0.5 ml 05/16/24 15:27 05/16/24 15:56 Diphth,Pertus(Acell),Tet Adult 0.5 Ml Syringe IM 05/16/24 15:28 0.5 ml .ONCE ONE Administration Lidocaine HCl 5 ml 05/16/24 15:44 05/16/24 15:56 Lidocaine Hcl 1 % Mpf 5 Ml Vial SUBCUT 05/16/24 15:45 5 ml ONCE ONE Administration Procedures Laceration Laceration 1: Site: face Side (If applicable): left Size (cm): 2 Description: linear Depth: simple, single layer Local Anesthetic: lidocaine 1% Amount of anesthesia used (mL): 3 Pre-repair: wound explored, irrigated extensively and deep structures intact Skin layer closed with: other (prolene) Size (cm): 5-0 Number of sutures: 4 Technique: simple, interrupted Medical Decision Making Medical Decision Making MDM Narrative: This is a 83-year-old female who presents emergency department complaints of lacerations I. Patient had a trip and fall landing onto her right side of her face. On arrival, blood pressure elevated 184/88, all other vital signs within normal limits. Patient has partial-thickness laceration noted to her left eyebrow requiring suture repair. CT facial bone revealing preseptal and perinasal ecchymotic soft tissue swelling and laceration, diastasis of the frontal zygomatic suture of the left lateral orbit, and extremely subtle minimally displaced left orbital floor fracture, subtle fracture of the left lateral orbit near the orbital apex, nondisplaced. There is a mild enlargement swelling of the inferior rectus muscle a small amount of herniation of the inferior belly into the fracture defect by 2 mm. I discussed this with my attending physician, Dr. Mccarthy. Patient has no signs of entrapment. She has full movement of her eye without difficulty, no pain associated, no weakness. Patient requiring suture repair. I repaired with 4-0 Prolene sutures. Patient tolerated procedure well without any complications or concerns. I stressed the importance of following up with Dr. Aamir cain given these fractures. Also discharge patient on Augmentin. Given very strict return precautions, advised if she has any changes in her vision to immediately activate emergent services given her findings on her CT scan. She understands and agrees with plan. She is feeling well. Blood pressure still elevated at 180 3/89, she has a history of hypertension, states that she recently was discontinued off of the lisinopril. She has been taking her blood pressure at home which has been within normal ranges, she will watch this. She has no headache, dizziness, chest pain or shortness for breath therefore no other workup indicated at this time. She understands agrees with plan. Given strict return precautions as listed above, patient stable for discharge Differential Diagnosis Differential Diagnoses: The differential diagnosis associated with the presentation includes Orbital bone fracture, ICH, SDH, contusion Admission/Observation Consideration of admission/observation: Escalation of care including admission/observation considered Radiology Impression Discussion of test interpretation with radiology: I have reviewed the radiologist's reading. Radiologist Impression: [address] [address] [address] Scan Report Signed Patient: Maureen Foreman MR#: [id number] : 1940 Acct:[id number] Age/Sex: 83 / F ADM Date: 05/16/24 Loc: .ED Attending Dr: Ordering Physician: Segundo Montague Date of Service: 05/16/24 Procedure(s): CT facial bones wo IV con Accession Number(s): [id number] cc: Segundo Montague; Alton Durham MD~ Report Number: [id number]: Total DLP = 215.00 mGy-cm EXAMINATION: CT HEAD AND FACIAL BONES WITHOUT CONTRAST CLINICAL INFORMATION: Fall, head strike. COMPARISON: None available. TECHNIQUE: Contiguous axial imaging was performed from the skull base to vertex, and also including axial CT imaging of the maxillofacial bones without intravenous administration of contrast. Sagittal, coronal, and thin section axial reformatted images were constructed from the axial data set. This CT examination was performed using dose optimization techniques as appropriate, variously including the following: *Automated exposure control *Adjustment of mA and/or kV according to patient size (this includes techniques or standardized protocols for targeted exams where dose is matched to indication/reason for exam; i.e. extremities or head) *Use of iterative reconstruction technique DLP: 615 mGy-cm (CT Head) 215 mGy-cm (CT Facial Bones) FINDINGS: There is no evidence of intracranial hemorrhage or extra-axial fluid collection. There is no mass effect, or edema. No CT evidence of acute territorial infarct. Ventricles, sulci, and cisterns are normal in size and configuration for patient age. No hydrocephalus. No midline shift. 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 Mild low density supratentorial white matter changes, in keeping with small vessel ischemic change. Normal sella. Mild atheromatous calcification of the bilateral carotid siphons. There is left preseptal and bryan-zygomatic soft tissue swelling. There is diastases of the left frontozygomatic suture. There is a subtle fracture of the left lower lobe 4, measuring approximately 9 mm in transverse, by 13 mm in AP diameter. There is mild swelling of the left inferior rectus muscle. There is approximately 2 mm of herniation of the inferior belly of the inferior rectus muscle into the bony defect. (Series 24, image 85). There is a subtle fracture of the lateral orbital apex (series 21, image 44), nondisplaced. I do not appreciate a left orbital superior or medial wall fracture. The paranasal sinuses, mastoid air cells, and tympanic cavities are normally aerated. No suspicious bony abnormalities. There are no additional fractures. The remainder of the maxillofacial bones are intact. The mandible is intact. 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 Incidental note made of a periapical lucency with cortical buccal dehiscence involving tooth #13 (series 21, image 26). CT/CT facial bones wo IV con IMPRESSION: 1. No acute intracranial abnormalities. No calvarial fracture. 2. There is left preseptal and bryan-zygomatic soft tissue swelling and laceration. 3. There is a mild diastases of the frontozygomatic suture of the left lateral orbit, and there is an extremely subtle minimally displaced left orbital floor fracture measuring 9 x 13 mm, with 2 mm of depression into the maxillary sinus. Subtle fracture of the left lateral orbit near the orbital apex, nondisplaced. 4. There is mild enlargement/swelling of the inferior rectus muscle a small amount herniation of the inferior belly into the fracture defect by 2 mm. Correlate for left inferior rectus entrapment. 5. No additional fractures identified. 6. See the body of report for additional ancillary findings. Electronically signed by: Roberto Huffman MD 05/16/2024 12:52 PM [facility] Dictated By: Roberto Huffman MD [address] [address] [address] Scan Report Signed Patient: Maureen Foreman MR#: [id number] : 1940 Acct:[id number] Age/Sex: 83 / F ADM Date: 05/16/24 Loc: HO.ED Attending Dr: Ordering Physician: Segundo Montague Date of Service: 05/16/24 Procedure(s): CT cervical spine wo IV con Accession Number(s): [id number] cc: Segundo Montague; Alton Durham MD~ Report Number: [id number]: Total DLP = 214.00 mGy-cm EXAMINATION: CT CERVICAL SPINE WITHOUT CONTRAST CLINICAL INFORMATION: Status post fall. COMPARISON: None available. TECHNIQUE: Contiguous axial images through the cervical spine using 3 mm collimation with bone and soft tissue algorithm. Sagittal and coronal reformatted images acquired. This CT examination was performed using dose optimization techniques as appropriate, variously including the following: *Automated exposure control *Adjustment of mA and/or kV according to patient size (this includes techniques or standardized protocols for targeted exams where dose is matched to indication/reason for exam; i.e. extremities or head) *Use of iterative reconstruction technique. DLP: 240 mGy centimeters. FINDINGS: Craniocervical junction is intact. Multilevel marginal osteophyte formation, subchondral cyst formation, decreased intervertebral disc height, endplate sclerosis and vacuum phenomenon, C3 C7 more conspicuous at C5-6 and C6-7 levels. Under calcinosis, intervertebral disc C3-4. Grade 1 anterolisthesis, C2-3, C3-4 and C7-T1 likely degenerative. Facet joint hypertrophy bilaterally, C3-4 to C7-T1. C1 is intact. C2 is intact. C3 is intact. C4 is intact. C5 is intact. C6 is intact. C7 is intact. No gross prevertebral compartment hematoma. Osteopenia versus osteoporosis. Calcified plaques in the carotid arteries, bilaterally. Bilateral apical lung scarring. CT/CT cervical spine wo IV con IMPRESSION: Multilevel cervical spondylosis C3 C7 without acute fracture or trauma-related listhesis. Fleischner guidelines were followed. Electronically signed by: Wilberto Cardoso MD 05/16/2024 12:38 PM [facility] Dictated By: Wilberto Sanches MD Discharge Plan Discharge Clinical Impression: Laceration of face, Orbital floor fracture Patient Disposition: Home, Self-Care Instructions: Laceration (ED), Facial Fracture (ED) Additional Instructions: You were seen in the emergency department after a slip and fall. Your CT scan of your face revealed widening of the frontozygomatic suture of the left lateral orbit and extremely subtle minimally displaced left orbital floor fracture. You also have some swelling in the inferior rectus muscle, which shows some herniation into your fracture defect. See CT scan results. You need to follow- up with Dr. Hernandez regarding this. Take Augmentin as prescribed. This is very important for you to take. We updated your tetanus shot in the department. We also placed 4 sutures in your left eyebrow, please have these removed in 5 days, you can follow-up with your primary care physician return here. If any new or worsening symptoms occur including but not limited to inability to move eye, any vision changes, severe headache, dizziness, or any other changes, please seek emergent care. Prescriptions: New amoxicillin-pot clavulanate 875-125 mg tablet 1 tab PO BID 7 Days Qty: 14 0RF No Action Voquezna 20 mg tablet 20 mg PO DAILY Qty: 14 0RF potassium chloride 20 mEq packet 20 meq PO .every other day Qty: 30 0RF rosuvastatin 40 mg tablet 40 mg PO DAILY pyridoxine (vitamin B6) 50 mg tablet 50 mg PO DAILY 90 Days Qty: 90 3RF pantoprazole 20 mg tablet,delayed release (DR/EC) 20 mg PO BID Qty: 60 3RF cetirizine [Zyrtec] 10 mg tablet 10 mg PO BEDTIME Qty: 30 1RF sennosides [Natural Senna Laxative] 8.6 mg tablet 8.6 mg PO BEDTIME Qty: 90 3RF famotidine 40 mg tablet 40 mg PO BEDTIME Qty: 90 3RF simethicone [Gas Relief (simethicone)] 125 mg tablet,chewable 125 mg PO BID-TID PRN (Reason: abdominal distention) Qty: 90 3RF Referrals: Kleber Kee [Physician] - Interventions: ED Discharge Assessment Last Done: 05/16/24 17:55 Discharge Date/Time: 05/16/24 17:55 Print Language: Tajik
[2024-05-16] MEDS: Lidocaine HCl 1 % MPF 5 ML VIAL SUBCUT (15:56)
[2024-05-16] MEDS: Diphth,Pertus(ACell),Tet Adult 0.5 ML SYRINGE IM (15:56)
[2024-05-16 16:59] VITALS: BP 183/89; PULSE 83; RESP 16; O2SAT 97
[2024-05-16] MEDS: Bacitracin Oint 0.9 GM PACKET 1 APPL TOPICAL (16:59)
--- NOTE | 2024-05-16 17:18 | MHC.EDTECH ---
Wound above left eye cleaned, bacitracin and bandage applied to site. Patient tolerated well.
--- OUTSIDE RECORDS SUMMARY | 2024-05-16 17:51 | XMS_ITS | Continuity of Care Document ---
Author Organization ID - [facility], [facility] Address [address] [place] [address] Care Team Providers Care Bookbinder Chief Name Role Phone GRAHAM HARGROVE Primary Care Provider [phone] Assessment No assessment recorded. Plan of Treatment [...] Recorded Time Impacted cerumen in left ear [id number] Active 2019 Impacted cerumen, left ear; Note: Date Diagnose d: 0 9:06 AM (H61.22) Not Available [facility] 4 02:59:24 Bilatera l diffuse otitis externa [id number] 54861 Completed 201912/03/2023 Diffuse otitis externa, bilatera l; Note: Changed from H60.312 to H60.313 ( 0 9:01 AM) , Date Diagnose d: 0 11:52 AM (H60.312 ) Not Available [facility] 4 02:59:21 Cellulit is of both external ears [id number] 78174 Completed 201912/03/2023 Cellulit is of external ear, bilatera l; Note: Date Diagnose d: 08/10/2019 9:02 AM (H60.13) Not Available [facility] 4 02:59:22 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 [id number] 79219 Active 2019 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 and infectio n; Note: Date Diagnose d: 0 8:43 AM (H61.322 ) Not Available [facility] 4 02:59:21 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 [id number] 91535 Completed 201912/03/2023 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 and infectio n; Note: Date Diagnose d: 0 8:43 AM (H61.321 ) [facility] 4 02:59:22 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 [id number] 72594 Active 2019 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 and infectio n; Note: Date Diagnose d: 0 8:43 AM (H61.322 ) Not Available [facility] 4 02:59:21 Acute myringit is of right ear [id number] 29550 Completed 201912/03/2023 Acute myringit is, right ear; Note: Date Diagnose d: 0 10:14 AM (H73.001 ) Not Available [facility] 4 02:59:21 Otitis externa of bilatera l ears 37995110130 96090 Completed 201912/03/2023 Other otitis externa, bilatera l; Note: Date Diagnose d: 09/07/2019 10:30 AM (H60.8X3 ) Not Available [facility] 4 02:59:24 Candidal otitis externa 16032120 Active 2022 Candidal otitis externa; Note: Date Diagnose d: 3 8:45 AM (B37.84) Candid al otitis externa; Note: Date Diagnose d: 0 9:31 AM (B37.84) ; Start Date : 05/18/19 20 Not Available [facility] 4 02:59:22 Sensorin eural hearing loss of bilatera l ears [id number] Active 2020 Sensorin eural hearing loss, bilatera l; Note: Date Diagnose d: 1 9:19 AM (H90.3) Not Available [facility] 4 02:59:25 Impacted cerumen of bilatera l ears 04037421717 Active 2019 Impacted cerumen, bilatera l; Note: Date Diagnose d: 0 9:31 AM (H61.23) Not Available [facility] 4 02:59:23 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 [id number] 44472 Active 2019 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 Procedures Surgical History Date Name Laterality Status Provider Name and Address Organization Details Recorded Time 04/04/20 24 Cerumen removal with microscope left completed TRACEY [facility]INSKI [facility] [address] [facility] [place] [address], [place], [address], [place] - [facility] 04/03/2024 07:34:32 01/04/20 24 Cerumen removal with microscope left completed TRACEY KAMINSKI MD [address] [facility],[address], [address], [place] - [facility] 01/04/2024 09:06:38 10/19/19 24 Cerumen removal with microscope left completed TRACEY KAMINSKI MD [address] [facility],[address], [address], [place] - [facility] 10/19/2023 08:46:23 lithotripsy completed Latha Fu [place] - [facility] 10/19/2023 08:30:53 meatoplasty of external ear completed Latha Fu [place] - [facility] 10/19/2023 08:31:07 Imaging Results None recorded. Procedure Notes None recorded. Medical Equipment None Reported. Allergies Allergen ID Allergen Name Allergen Category Reaction Reaction Severity Criticality Documentation Date Start Date Code Code System Note Provider Name and Address Organization Details Recorded Time 027196 cephalexi n monohydra te medicatio n other Not available Not available 09/14/2023 98794 8 RxNorm React ion: unkno wn, unspe cifie d;; Not Available [facility] 4 01:22:48 871835 Substance with sulfonami de structure and antibacte rial mechanism of action (substanc e) medicatio n other Not available Not available 09/14/2023 98300 8003 SNOMED React ion: unkno wn, unspe cifie d;; Not Available [facility] 4 01:22:48 738268 Iodinated contrast media (substanc e) medicatio n Not available Not available Not available 10/19/2023 63533 2003 SNOMED Latha Fu null, [place] - [facility] 4 08:29:47 Medications Name Sig Start Date Stop Date Status Note LastModified by Organization Details LastModified Time atorvasta tin 40 mg tablet 02/08 completed Medicati on ID: [id number] D uration Value: 90 Brand Name: atorvast [...] mg tablet 04/04 completed Medicati on ID: [id number] B rand Name: senkristine Se nd Method: E-Prescr ibed Sub s Allowed: subs OK Speci al Instruct ion: TAKE 2 TABLETS BY MOUTH AT BEDTIME FOR CONSTIPA TION Med icationG enericNa me: senna Not Available Not Available Not Available sucralfat e 100 mg/mL oral suspensio n 04/04 completed Medicati on ID: [id number] B rand Name: sucralfa te Send Method: [...] eye drops 10/18 completed Medicati on ID: [id number] D uration Value: 14 Prescri bed By Name: KELLI Barros nd Name: Ciloxan Send Method: E-Prescr ibed Sub s Allowed: subs OK Speci al Instruct ion: 4 drops into affected ear BID X 14 days Med icationG enericNa me: Ciloxan Medicati on ID: [id number] D uration Value: 14 Prescri bed By Name: Yudith FelicianoKELLI harrison nd Name: Ciloxan Send Method: E-Prescr ibed Sub s Allowed: subs OK Speci al Instruct ion: 4 drops into affected ear BID X 14 days Med icationG enericNa me: Ciloxan Not Available Not Available Not Available ciproflox acin 500 mg tablet 1 tablet by mouth 08/02 completed Medicati on ID: [id number] D uration Value: 10 Prescri bed By [...] layed release 04/04 completed Medicati on ID: [id number] B rand Name: pantopra zole Sen d Method: E-Prescr ibed Sub s Allowed: subs OK Medic ationGen ericName : pantopra zole Not Available Not Available Not Available clotrimaz ole-betam ethasone 1 %-0.05 % topical cream Apply 1 a small amount to affected area three times a day 10/18 completed Medicati on ID: [id number] D uration Value: 14 Prescri bed By Name: Musa Ramirez nd Name: clotrima zole-bet amethaso ne Send Method: E-Prescr ibed Sub s Allowed: subs OK Speci al Instruct ion: Apply with fingerti p to external ear Medi cationGe nericNam e: clotrima zole-bet amethaso ne Medic ation ID: [id number] D uration Value: 14 Prescri bed By Name: Tracey Kaminski M.D. Bra nd Name: huongrijamil horowitze-bet amethbreezyo ne Send Method: E-Prescr ibed Sub s Allowed: subs OK Speci al Instruct ion: Apply with fingerti p to external ear Medi cationGe nericNam e: clotrima zole-bet amethaso ne Not Available Not Available Not Available clotrimaz ole 1 % topical solution 10/18 completed Medicati on ID: [id number] D uration Value: 14 Brand Name: clotrima zolkamran Sen d Method: E-Prescr ibed Sub s Allowed: subs OK Speci al Instruct ion: 4 drops to affected ear three times a day Medi cationGe nericNam e: clotrima zole Med ication ID: [id number] D uration Value: 14 Brand Name: clotrijamil [...] affected area 10/18 completed Medicati on ID: [id number] D uration Value: 14 Brand Name: mupiroci n Send Method: E-Prescr ibed Sub s Allowed: subs OK Medic ationGen ericName : mupiroci n Medica tion ID: [id number] D uration Value: 14 Brand Name: mupiroci n Send Method: E-Prescr ibed Sub s Allowed: subs OK Medic ationGen ericName : mupiroci n Not Available Not Available Not Available cefuroxim e axetil 500 mg tablet 1 tablet by mouth 10/18 completed Medicati on ID: [id number] D uration Value: 14 Brand Name: cefuroxi me axetil S end Method: E-Prescr ibed Sub s Allowed: subs OK Medic ationGen ericName : cefuroxi me axetil M eddyo n ID: [id number] D uration Value: 14 Brand Name: cefuroxi me axetil S end Method: E-Prescr ibed Sub s Allowed: subs OK Medic ationGen ericName : cefuroxi me axetil Not Available Not Available Not Available multivita min capsule 2019 active Medicati on ID: [id number] B rand Name: multivit anderson Sen d Method: E-Prescr ibed Sub s Allowed: subs OK Medic ationGen ericName : multivit anderson Not Available Not Available Not Available oxycodone 5 mg tablet 1 tablet by mouth 10/18 completed Medicati on ID: [id number] D uration Value: 3 Brand Name: oxycodon e Send Method: E-Prescr ibed Sub s Allowed: subs OK Medic ationGen ericName : oxycodon e Medica tion ID: [id number] D uration Value: 3 Brand Name: oxycodon e Send Method: E-Prescr ibed Sub s Allowed: subs OK Medic ationGen ericName : oxycodon e Not Available Not Available Not Available neomycin 3.5 mg/g-poly myxin B 10,000 unit/g-de xameth 0.1 % eye oint 10/25 completed Medicati on ID: [id number] Juan Pablo conteh d By Name: Musa Ramirez nd Name: neomycin -polymyx in B-dexame th Send Method: E-Prescr ibed Sub s Allowed: subs OK Speci al Instruct ion: apply to both ear canals TID [facility] cationGe nericNam e: neomycin -polymyx in B-dexame th Not Available Not Available Not Available Ciprodex 0.3 %-0.1 % ear drops,luiz pension 4 drop 10/18 completed Medicati on ID: [id number] D uration Value: 14 Brand Name: Ciprodex Send Method: E-Prescr ibed Sub s Allowed: subs OK Medic ationGen ericName : Ciprodex Medicat ion ID: [id number] D uration Value: 14 Brand Name: Ciprodex [...] topical ointment 10/18 completed Medicati on ID: [id number] D uration Value: 30 Brand Name: Cortispo rin Send Method: E-Prescr ibed Sub s Allowed: subs OK Speci al Instruct ion: apply to bith ears canals three times a day Medi cationGe nericNam e: Cortispo rin Medi cation ID: [id number] D uration Value: 30 Brand Name: Cortispo [...] SNOMED-CT Code Diagnosis ICD10 Code Diagnosis Note [id number] TRACEY KAMINSKI MD [facility] [address] [place] [address] 04/04/2024 07:58:18 04/04/2024 08:33:09 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 She is always welcome to come back to see me if she wants to proceed with left-sided meatoplast y. Impacted c erumen in left ear [id number] 206423 H61.22 Health Concerns Section Related Observation LastModified by Organization Detai ls LastModified Time None Recorded Concern Status LastModified by Organization Details LastModified Time None Recorded Payers Encounter Date Sequence Insurance Name Policy Number Policy Chi Covered Member ID Chi Member ID Guarantor Name 04/04/2024 2 [facility] INDEMNITY PLAN (MEDICARE SUPPLEMENT) [id number] Maureen Foreman [id number] Maureen Foreman 04/04/2024 1 MEDICARE B-[place]: [facility] [employer] Maureen Foreman [id number] Maureen Foreman Notes Date Note Type [...] by difficulty hearing. TRACEY KAMINSKI MD [address], [address], [facility] - [facility] 04/04/2024 08:38:51 OBGyn Episode No OBEpisode recorded.
--- OUTSIDE RECORDS SUMMARY | 2024-05-16 17:51 | XMS_ITS | Data Portability ---
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 Plan of Treatment [...] Recorded Time Impacted cerumen in left ear [id number] Active 2019 Impacted cerumen, left ear; Note: Date Diagnose d: 0 9:06 AM (H61.22) Not Available [facility] 4 02:59:24 Bilatera l diffuse otitis externa [id number] Completed 201912/03/2023 Diffuse otitis externa, bilatera l; Note: Changed from H60.312 to H60.313 ( 0 9:01 AM) , Date Diagnose d: 0 11:52 AM (H60.312 ) Not Available [facility] 4 02:59:21 Cellulit is of both external ears [id number] Completed 201912/03/2023 Cellulit is of external ear, bilatera l; Note: Date Diagnose d: 08/10/2019 9:02 AM (H60.13) Not Available [facility] 4 02:59:22 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 [id number] Active 2019 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 and infectio n; Note: Date Diagnose d: 0 8:43 AM (H61.322 ) Not Available [facility] 4 02:59:21 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 [id number] Completed 201912/03/2023 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 and infectio n; Note: Date Diagnose d: 0 8:43 AM (H61.321 ) Not Available [facility] 4 02:59:22 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 [id number] 27741 Active 2019 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 and infectio n; Note: Date Diagnose d: 0 8:43 AM (H61.322 ) Not Available [facility] 4 02:59:21 Acute myringit is of right ear [id number] 43316 Completed 201912/03/2023 Acute myringit is, right ear; Note: Date Diagnose d: 0 10:14 AM (H73.001 ) Not Available [facility] 4 02:59:21 Otitis externa of bilatera l ears [id number] 56439 Completed 201912/03/2023 Other otitis externa, bilatera l; Note: Date Diagnose d: 09/07/2019 10:30 AM (H60.8X3 ) Not [facility] 4 02:59:24 Candidal otitis externa [id number] Active 2022 Candidal otitis externa; Note: Date Diagnose d: 3 8:45 AM (B37.84) Candid al otitis externa; Note: Date Diagnose d: 0 9:31 AM (B37.84) ; Start Date : 05/18/19 20 Not Available [facility] 4 02:59:22 Sensorin eural hearing loss of bilatera l ears 944706223 Active 2020 Sensorin eural hearing loss, bilatera l; Note: Date Diagnose d: 1 9:19 AM (H90.3) Not Available [facility] 4 02:59:25 Impacted cerumen of bilatera l ears 51952231314 06128 Active 2019 Impacted cerumen, bilatera l; Note: Date Diagnose d: 0 9:31 AM (H61.23) Not Available [facility] 4 02:59:23 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 97596880473 Active 2019 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 and infectio n, bilatera l; Note: Date Diagnose d: 0 9:37 AM (H61.323 ) Not Available [facility] 4 02:59:24 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 86487017231 43212 Active 2019 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 and infectio n, bilatera l; Note: Date Diagnose d: 0 9:37 AM (H61.323 ) Not Available [facility] 4 02:59:24 Follow-u p visit Active 2019 Encounte r for follow-u p examinat ion after complete d treatmen t for conditio ns other than malignan t neoplasm ; Note: Date Diagnose d: 11/02/2019 11:14 AM (Z09) Medica l surveill ance followin g complete d treatmen t; Note: Date Diagnose d: 0 9:50 AM (Z09) ; Start Date : 10/30/19 20 Not Available [facility] 4 02:59:25 Problem Notes None recorded. Procedures Surgical History Date Name Laterality Status Provider Name and Address Organization Details Recorded Time 04/04/20 24 Cerumen removal with microscope left completed TRACEY KAMINSKI MD [address] [place] [address],[address], [address], [facility] - [facility] 04/03/2024 07:34:32 01/04/20 24 Cerumen removal with microscope left completed TRACEY KAMINSKI MD [address] [place] [address],[address], [address], [place] - [facility] 01/04/2024 09:06:38 10/19/19 24 Cerumen removal with microscope left completed TRACEY KAMINSKI MD [address] [place] [address],[address], [address], [place] - [facility] 10/19/2023 08:46:23 lithotripsy completed Latha Fu [place] - [facility] 10/19/2023 08:30:53 meatoplasty of external ear completed Latha Fu [place] - [facility] 10/19/2023 08:31:07 Imaging Results Imaging Date [...] Name and Address Organization Details Recorded Time 500031 cephalexi n monohydra te medicatio n other Not available Not available 09/14/2023 30046 8 RxNorm React ion: unkno wn, unspe cifie d;; Not Available Former[facility] 4 01:22:48 605513 Substance with sulfonami de structure and antibacte rial mechanism of action (substanc e) medicatio n other Not available Not available 09/14/2023 45596 8003 SNOMED React ion: unkno wn, unspe cifie d;; Not Available [facility] 4 01:22:48 287648 Iodinated contrast media (substanc e) medicatio n Not available Not available Not available 10/19/2023 32618 2003 SNOMED Latha monteiro [place] - [facility] 4 08:29:47 Medications Name Sig Start Date Stop Date Status Note LastModified by Organization Details LastModified Time atorvasta tin 40 mg tablet 02/08 completed Medicati on ID: [id number] D uration Value: 90 Brand Name: atorvast [...] mg tablet 04/04 completed Medicati on ID: [id number] B rand Name: senna Se nd Method: E-Prescr ibed Sub s Allowed: subs OK Speci al Instruct ion: TAKE 2 TABLETS BY MOUTH AT BEDTIME FOR CONSTIPA TION Med icationG enericNa me: senna Not Available Not Available Not Available sucralfat e 100 mg/mL oral suspensio n 04/04 completed Medicati on ID: [id number] B rand Name: sucralfa te Send Method: [...] eye drops 10/18 completed Medicati on ID: [id number] D uration Value: 14 Prescri bed By Name: KELLI Barros nd Name: Ciloxan Send Method: E-Prescr ibed Sub s Allowed: subs OK Speci al Instruct ion: 4 drops into affected ear BID X 14 days Med icationG enericNa me: Ciloxan Medicati on ID: [id number] D uration Value: 14 Prescri bed By Name: KELLI Barros nd Name: Ciloxan Send Method: E-Prescr ibed Sub s Allowed: subs OK Speci al Instruct ion: 4 drops into affected ear BID X 14 days Med icationG enericNa me: Ciloxan Not Available Not Available Not Available ciproflox acin 500 mg tablet 1 tablet by mouth 08/02 completed Medicati on ID: [id number] D uration Value: 10 Prescri bed By [...] layed release 04/04 completed Medicati on ID: [id number] B rand Name: pantopra zole Sen d Method: E-Prescr ibed Sub s Allowed: subs OK [facility] pantopra [facility]ole Not Available Not Available Not Available clotrimaz ole-betam ethasone 1 %-0.05 % topical cream Apply 1 a small amount to affected area three times a day 10/18 completed Medicati on ID: [id number] D uration Value: 14 Prescri bed By Name: Musa Ramirez nd Name: clotrima zole-bet amethaso ne Send Method: E-Prescr ibed Sub s Allowed: subs ELIZABETH Hernandez al Instruct ion: Apply with fingerti p to external ear Medi cationGe nericNam e: clotrima zole-bet amethaso ne Medic ation ID: [id number] D uration Value: 14 Prescri bed By Name: Musa Ramirez nd Name: clotrima zole-bet amethaso ne Send Method: E-Prescr ibed Sub s Allowed: subs OK Speci al Instruct ion: Apply with fingerti p to external ear Medi cationGe nericNam e: clotrima zole-bet amethaso ne Not Available Not Available Not Available clotrimaz ole 1 % topical solution 10/18 completed Medicati on ID: [id number] D uration Value: 14 Brand Name: clotrima zole Sen d Method: E-Prescr ibed Sub s Allowed: subs OK Speci al Instruct ion: 4 drops to affected ear three times a day Medi cationGe nericNam e: clotrima zole Med ication ID: [id number] D uration Value: 14 Brand Name: clotrima [...] affected area 10/18 completed Medicati on ID: [id number] D uration Value: 14 Brand Name: mupiroci n Send Method: E-Prescr ibed Sub s Allowed: subs OK Medic ationGen ericName : mupiroci n Medica tion ID: [id number] D uration Value: 14 Brand Name: mupiroci n Send Method: E-Prescr ibed Sub s Allowed: subs OK Medic ationGen ericName : mupiroci n Not Available Not Available Not Available cefuroxim e axetil 500 mg tablet 1 tablet by mouth 10/18 completed Medicati on ID: [id number] D uration Value: 14 Brand Name: cefuroxi me axetil S end Method: E-Prescr ibed Sub s Allowed: subs OK Medic ationGen ericName : cefuroxi me axetil M edicatio n ID: [id number] D uration Value: 14 Brand Name: cefuroxi me axetil S end Method: E-Prescr ibed Sub s Allowed: subs OK Medic ationGen ericName : cefuroxi me axetil Not Available Not Available Not Available multivita min capsule 2019 active Medicati on ID: [id number] B rand Name: multivit anderson Sen d Method: E-Prescr ibed Sub s Allowed: subs OK Medic ationGen ericName : multivit anderson Not Available Not Available Not Available oxycodone 5 mg tablet 1 tablet by mouth 10/18 completed Medicati on ID: [id number] D uration Value: 3 Brand Name: oxycodon e Send Method: E-Prescr ibed Sub s Allowed: subs OK Medic ationGen ericName : oxycodon e Medica tion ID: [id number] D uration Value: 3 Brand Name: oxycodon e Send Method: E-Prescr ibed Sub s Allowed: subs OK Medic ationGen ericName : oxycodon e Not Available Not Available Not Available neomycin 3.5 mg/g-poly myxin B 10,000 unit/g-de xameth 0.1 % eye oint 10/25 completed Medicati on ID: [id number] P yady d By Name: Musa Ramirez nd Name: neomycin -polymyx in B-dexame th Send Method: E-Prescr ibed Sub s Allowed: subs OK Speci al Instruct ion: apply to both ear canals TID Medi cationGe nericNam e: neomycin -polymyx in B-dexame th Not Available Not Available Not Available Ciprodex 0.3 %-0.1 % ear drops,luiz pension 4 drop 10/18 completed Medicati on ID: [id number] D uration Value: 14 Brand Name: Ciprodex Send Method: E-Prescr ibed Sub s Allowed: subs OK Medic ationGen ericName : Ciprodex Medicat ion ID: [id number] D uration Value: 14 Brand Name: Ciprodex [...] topical ointment 10/18 completed Medicati on ID: [id number] D uration Value: 30 Brand Name: Joseph gonzalez Send Method: E-Prescr ibed Sub s Allowed: subs OK Speci al Instruct ion: apply to bith ears canals three times a day Medi cationGe nericNam e: Machopo lisa Medi cation ID: [id number] D uration Value: 30 Brand Name: Joseph [...] Note [id number] TRACEY KAMINSKI MD [facility] [address] [address] 10/19/2023 08:21:18 10/21/2023 12:28:05 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 Impacted c erumen in left ear [id number] 802585 H61.22 [id number] TRACEY KAMINSKI MD [facility] [address] [address] 01/04/2024 08:33:56 01/04/2024 09:08:18 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 [id number] 280895 H61.322 The right external auditory canal remains [...] on. Impacted c erumen in left ear [id number] 364821 H61.22 [id number] TRACEY KAMINSKI MD [facility] [address] [address] 04/04/2024 07:58:18 04/04/2024 08:33:09 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 [id number] 496452 H61.322 The right external auditory canal remains [...] be having her follow-up with a physician assistant foreman going forward for cerumen removal. She is always welcome to come back to see me if she wants to proceed with left-sided meatoplast y. Impacted c erumen in left ear [id number] 386189 H61.22 Health Concerns Section Related Observation LastModified by Organization Detai ls LastModified Time None Recorded Concern Status LastModified by Organization Details LastModified Time None Recorded Advance Directives Directive None Recorded Payers Encounter Date Sequence Insurance Name Policy Number Policy Chi Covered Member ID Chi Member ID Guarantor Name 10/19/2023 1 [place] [employer] [place] Maureen Francisco Javier Thomasdziel [id number] Maureen J Williamdziel 10/19/2023 2 UNIC[employer] - SENIOR SERVICES PLAN F (MEDICARE SUPPLEMENT) [id number] Maureen Francisco Javier Williamdziel [id number] Maureen Mcintyre Williamdziel 01/04/2024 1 [place] Maureen Francisco Javier Thomasdziel [id number] 2 Maureen Francisco Javier Kurdziel 01/04/2024 2 [employer] - SENIOR SERVICES PLAN F (MEDICARE SUPPLEMENT) [id number] Maureen Francisco Javier Thomasdziel [id number] Maureen Francisco Javier Kurdziel 04/04/2024 2 [employer]IC[employer] - GIC INDEMNITY PLAN (MEDICARE SUPPLEMENT) [id number] Maureen Francisco Javier Williamdziel [id number] Maureen Francisco Javier Kurdziel 04/04/2024 1 [place] Maureen Francisco Javier Thomasdziel [id number] 2 Maureen Francisco Javier Kurdziel Notes Date [...] accompanied by difficulty hearing. TRACEY KAMINSKI MD [address] [place] [address], [address], [facility] - [facility] 10/19/2023 08:51:52 01/04/2024 text/html 83-year-old markus flores presents for cerumen removal. She has a history of bilateral external auditory canals stenosis. Meatoplasty done in 2019 on the right side with resulting resolution of the stenosis on the right. She reports the right ear is feeling great. Recent blockage sensation on the left accompanied by difficulty hearing. TRACEY KAMINSKI MD [address] [facility],[address], [address], [facility] - [facility] 01/04/2024 09:08:08 04/04/2024 text/html 83-year-old femlolita flores presents for cerumen removal. She has a history of bilateral external auditory canals stenosis. Meatoplasty done in 2019 on the right side with resulting resolution of the stenosis on the right. She reports the right ear is feeling great. Recent blockage sensation on the left accompanied by difficulty hearing. TRACEY KAMINSKI MD [address] [facility] [address], [place], [address], [facility] 04/04/2024 08:38:51 OBGyn Episode No OBEpisode recorded.
[2024-05-16 17:55] VITALS: BP 183/89; PULSE 83; RESP 16; TEMP -17.7; TEMP 0; O2SAT 97
== END 2024-05-16 17:55 | disposition home or self-care (01) ==
PROVIDERS: Emergency Provider Emergency Medicine; PCP Internal Medicine
DX: S01.112A Laceration without foreign body of left eyelid and periocular area, initial encounter (principal); S02.32XA Fracture of orbital floor, left side, initial encounter for closed fracture; S02.842A Fracture of lateral orbital wall, left side, initial encounter for closed fracture; W01.198A Fall on same level from slipping, tripping and stumbling with subsequent striking against other object, initial encounter; I10 Essential (primary) hypertension; E78.5 Hyperlipidemia, unspecified; Y93.89 Activity, other specified; Y92.410 Unspecified street and highway as the place of occurrence of the external cause; Y99.9 Unspecified external cause status; Z79.02 Long term (current) use of antithrombotics/antiplatelets; Z23 Encounter for immunization
CPT/HCPCS: 12011; 70450; 70486; 72125; 90471; 90715; 99283; 99284; J2003

== ENCOUNTER → 2024-05-16 11:42 | Outpatient (BNV) | payer MEDICARE, OTHER, SELFPAY | PROVIDERS: PCP Internal Medicine; Visit Provider Radiology Diagnostic Radiology | DX: S09.90XA Unspecified injury of head, initial encounter (principal); W19.XXXA Unspecified fall, initial encounter; M47.892 Other spondylosis, cervical region | CPT/HCPCS: 70450; 70486; 72125 ==

== ENCOUNTER 2024-05-21 14:31 | Emergency (ER) | payer MEDICARE, OTHER, SELFPAY ==
[2024-05-21 14:51] VITALS: BP 146/74; PULSE 77; RESP 18; TEMP 36.4; O2SAT 98; BMI 18.1
--- NOTE | 2024-05-21 15:01 | ED_ITS ---
HPI - Skin/Abscess/Foreign Bdy General Chief complaint: Skin/Abscess/Foreign Body Stated complaint: Suture removal Time Seen by Provider: 05/21/24 14:52 Source: patient Mode of arrival: ambulatory Limitations: no limitations History of Present Illness ED Provider: JARAD GARCÍA PA-C HPI narrative: 83-year-old female with pmhx significant for esophageal dysmotility, GERD, schatzki's ring s/p dilation on 09/22/23 with Hudson, HTN, hypokalemia, HLD presents to the ED today requesting removal of sutures. She was evaluated in our ED 5 days ago following a mechanical fall. She was noted to have a laceration to her left eyebrow with 4 sutures placed along with left orbital fracture. She was discharged with Augmentin and advised to return to the ED in 5 days for removal. States the area has been healing quite well. No drainage or bleeding from the area. No new trauma or injury to the area. Denies fever, chills. 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 Related Data Home Medications ?Medication ?Instructions ?Recorded ?Confirmed rosuvastatin 40 mg tablet 40 mg PO DAILY 02/07/21 01/07/24 Previous Rx's ?Medication ?Instructions ?Recorded vonoprazan 20 mg tablet (Voquezna) 20 mg PO DAILY #14 tabs 09/14/23 cetirizine 10 mg tablet (Zyrtec) 10 mg PO BEDTIME allergy symptoms 09/21/23 #30 tabs pyridoxine (vitamin B6) 50 mg 50 mg PO DAILY 90 days #90 tabs 01/07/24 tablet sennosides 8.6 mg tablet (Natural 8.6 mg PO BEDTIME constipation #90 01/17/24 Senna Laxative) tabs potassium chloride 20 mEq oral 20 meq PO .every other day #30 ea 01/25/24 packet famotidine 40 mg tablet 40 mg PO BEDTIME #90 tabs 03/29/24 simethicone 125 mg chewable tablet 125 mg PO BID-TID PRN abdominal 03/29/24 (Gas Relief (simethicone)) distention #90 tabs amoxicillin 875 mg-potassium 1 tab PO BID 7 days #14 tabs 05/16/24 clavulanate 125 mg tablet pantoprazole 20 mg tablet,delayed 20 mg PO BID #180 tabs 05/17/24 release Allergies Allergy/AdvReac Type Severity Reaction Status Date / Time cephalexin [From KEFLEX] Allergy Severe RASH Verified 05/21/24 14:52 Sulfa (Sulfonamide Allergy Severe INTSERNAL Verified 05/21/24 14:52 Antibiotics) AND [SULFA (SULFONAMIDE EXTERNAL ANTIBIOTICS)] RASH/INFECTION Iodinated Contrast Media Allergy Intermediate HIVES,REDNESS Verified 05/21/24 14:52 [IV Dye, Iodine Containing] + SWELLING sulfamethoxazole Allergy Intermediate INTERNAL Verified 05/21/24 14:52 [From BACTRIM] AND EXTERNAL RASH/ INFECTION stent Allergy Vomiting Uncoded 05/16/24 10:01 Review of Systems Review of Systems: Yes all other systems are reviewed and are negative PMFSH Past Medical History Attestation statement: The following information was validated with the patient. Source: old records reviewed and nursing notes reviewed Medical History Transaminitis Chronic leukopenia Erosive esophagitis Kidney stone GERD (gastroesophageal reflux disease) High cholesterol HTN (hypertension) Surgical History H/O lithotripsy H/O esophagogastroduodenoscopy (07/09/23) Social History Social History Alcohol intake: never Patient Tobacco Use Status: Never used Tobacco Advance Directives: Yes Advance Directives on File: Yes Advance Directives Date on File: 09/22/23 Physical Exam Vital Signs: Vital Signs: Last Vital Signs Temp 97.6 F 05/21/24 15:08 Pulse 77 05/21/24 15:08 Resp 18 05/21/24 15:08 BP 146/74 H 05/21/24 15:08 Pulse Ox 98 05/21/24 15:08 O2 Del Method Room Air 05/21/24 15:08 BMI result Body Mass Index 18.1 hypertensive, vitals are otherwise wnl General: Well appearing, in no acute distress. Skin: + 2cm well healing laceration to left eye brow. No surrounding erythema. No discharge. No bleeding. [address] There is healing ecchymosis surrounding the laceration secondary to known orbital fracture. Head: Normocephalic, atraumatic. EENT: Hearing is intact b/l. Conjunctiva clear. PERRLA. EOM intact. Moist mucous membranes.? Cardiac: Chest wall symmetric. RRR Lungs: Normal respiratory effort without accessory muscle use Ext: Upper and lower extremities atraumatic, without tenderness, deformity, swelling or erythema Neuro: AOx3. Normal speech. Ambulating with steady gait. Psych: Appropriate mood and affect. Responds appropriately to questions. Course Course Course Narrative: Four sutures removed. Patient tolerated well. No signs of infection. No bleeding. Advised to continue her Augmentin. She has a appropriate follow-up with Dr. Kee for orbital fracture. Patient has remained stable throughout ED visit today. Discussed worrisome signs and symptoms and when to return to the ED. All questions answered at this time. Patient is agreeable with disposition and stable for discharge. Medical Decision Making Medical Decision Making MDM Narrative: 83-year-old female with pmhx significant for esophageal dysmotility, GERD, schatzki's ring s/p dilation on 09/22/23 with Hudson, HTN, hypokalemia, HLD presents to the ED today requesting removal of sutures. Hypertensive, vitals are otherwise WNL. She is nontoxic appearing in no acute distress. On exam, she has a 2 cm well healing laceration to left eye brow. No surrounding erythema. No discharge. No bleeding. Four sut[address]. There is healing ecchymosis surrounding the laceration secondary to orbital fracture. EOMs intact without entrapment or pain. Differential diagnosis includes suture placement, laceration. Unlikely infection. Differential Diagnosis Differential Diagnoses: The differential diagnosis associated with the presentation includes as above. Admission/Observation not indicated. External Record Review External record reviewed: Inpatient record Social Determinants Patient?s care significantly limited by Social Determinants of Health including: Other Social Determinant of Health Critical Care Time Critical Care Time Critical Care Time: No Discharge Plan Discharge Clinical Impression: Encounter for removal of sutures Patient Disposition: Home, Self-Care Instructions: Stitches Removal (ED) Additional Instructions: You have been evaluated in the Emergency Department today for suture removal.? Your sutures were removed and your wound is healing well.? You can wash the area freely now. Keep your wound out of the sunlight for six months to reduce the appearance of scarring. You should cover your scar or use high SPF sunscreen protection. Please follow up with your primary care provider at your next scheduled appointment. Return to the ER immediately signs of infection to your wounds such as worsening pain, worsening redness/swelling, discharge/pus from your wounds, or for any other concerning symptoms. Prescriptions: No Action Voquezna 20 mg tablet 20 mg PO DAILY Qty: 14 0RF potassium chloride 20 mEq packet 20 meq PO .every other day Qty: 30 0RF pantoprazole 20 mg tablet,delayed release (DR/EC) 20 mg PO BID Qty: 180 1RF amoxicillin-pot clavulanate 875-125 mg tablet 1 tab PO BID 7 Days Qty: 14 0RF rosuvastatin 40 mg tablet 40 mg PO DAILY pyridoxine (vitamin B6) 50 mg tablet 50 mg PO DAILY 90 Days Qty: 90 3RF cetirizine [Zyrtec] 10 mg tablet 10 mg PO BEDTIME Qty: 30 1RF sennosides [Natural Senna Laxative] 8.6 mg tablet 8.6 mg PO BEDTIME Qty: 90 3RF famotidine 40 mg tablet 40 mg PO BEDTIME Qty: 90 3RF simethicone [Gas Relief (simethicone)] 125 mg tablet,chewable 125 mg PO BID-TID PRN (Reason: abdominal distention) Qty: 90 3RF Interventions: ED Discharge Assessment Last Done: 05/21/24 15:08 Discharge Date/Time: 05/21/24 15:08 Print Language: [place]
--- OUTSIDE RECORDS SUMMARY | 2024-05-21 15:05 | XMS_ITS | Continuity of Care Document ---
Author Organization [place] - [facility], [facility] Address [address] [place] [address] Care Team Providers Care Senior Branch Manager Name Role Phone GRAHAM HARGROVE Primary Care Provider [phone] Assessment No assessment recorded. Plan of Treatment [...] Recorded Time Impacted cerumen in left ear [id number] Active 2019 Impacted cerumen, left ear; Note: Date Diagnose d: 0 9:06 AM (H61.22) Not Available [facility] 4 02:59:24 Bilatera l diffuse otitis externa [id number] 32377 Completed 201912/03/2023 Diffuse otitis externa, bilatera l; Note: Changed from H60.312 to H60.313 ( 0 9:01 AM) , Date Diagnose d: 0 11:52 AM (H60.312 ) Not Available [facility] 4 02:59:21 Cellulit is of both external ears [id number] 07077 Completed 201912/03/2023 Cellulit is of external ear, bilatera l; Note: Date Diagnose d: 08/10/2019 9:02 AM (H60.13) Not Available [facility] 4 02:59:22 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 [id number] 17895 Active 2019 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 and infectio n; Note: Date Diagnose d: 0 8:43 AM (H61.322 ) Not Available [facility] 4 02:59:21 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 [id number] 22610 Completed 201912/03/2023 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 and infectio n; Note: Date Diagnose d: 0 8:43 AM (H61.321 ) Not Available [facility] 4 02:59:22 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 34667098770 09821 Active 2019 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 and infectio n; Note: Date Diagnose d: 0 8:43 AM (H61.322 ) Not Available [facility] 4 02:59:21 Acute myringit is of right ear 57952343217 85789 Completed 201912/03/2023 Acute myringit is, right ear; Note: Date Diagnose d: 0 10:14 AM (H73.001 ) Not Available [facility] 4 02:59:21 Otitis externa of bilatera l ears 40386966862 98545 Completed 201912/03/2023 Other otitis externa, bilatera l; Note: Date Diagnose d: 09/07/2019 10:30 AM (H60.8X3 ) Not Available [facility] 4 02:59:24 Candidal otitis externa 79765429 Active 2022 Candidal otitis externa; Note: Date Diagnose d: 3 8:45 AM (B37.84) Candid al otitis externa; Note: Date Diagnose d: 0 9:31 AM (B37.84) ; Start Date : 05/18/19 20 Not Available [facility] 4 02:59:22 Sensorin eural hearing loss of bilatera l ears 636586292 Active 2020 Sensorin eural hearing loss, bilatera l; Note: Date Diagnose d: 1 9:19 AM (H90.3) Not Available [facility] 4 02:59:25 Impacted cerumen of bilatera l ears 55149703589 Active 2019 Impacted cerumen, bilatera l; Note: Date Diagnose d: 0 9:31 AM (H61.23) Not Available [facility] 4 02:59:23 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 36409667463 56382 Active 2019 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 and infectio n, bilatera l; Note: Date Diagnose d: 0 9:37 AM (H61.323 ) Not Available [facility] 4 02:59:24 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 Procedures Surgical History Date Name Laterality Status Provider Name and Address Organization Details Recorded Time 04/04/20 24 Cerumen removal with microscope left completed TRACEY KAMINSKI MD [address] [facility],[place] [address], [place], [address], [place] - [facility] 04/03/2024 07:34:32 01/04/20 24 Cerumen removal with microscope left completed TRACEY KAMINSKI MD [address] [facility],[address], [address], [place] - [facility] 01/04/2024 09:06:38 10/19/19 24 Cerumen removal with microscope left completed TRACEY KAMINSKI MD 100 [facility],[address], [address], [place] - [facility] 10/19/2023 08:46:23 lithotripsy completed Latha Fu [place] - [facility] 10/19/2023 08:30:53 meatoplasty of external ear completed Latha Fu [place] - [facility] 10/19/2023 08:31:07 Imaging Results None recorded. Procedure Notes None recorded. Medical Equipment None Reported. Allergies Allergen ID Allergen Name Allergen Category Reaction Reaction Severity Criticality Documentation Date Start Date Code Code System Note Provider Name and Address Organization Details Recorded Time 043129 cephalexi n monohydra te medicatio n other Not available Not available 09/14/2023 41210 8 RxNorm React ion: unkno wn, unspe cifie d;; Not Available [facility] 4 01:22:48 434307 Substance with sulfonami de structure and antibacte rial mechanism of action (substanc e) medicatio n other Not available Not available 09/14/2023 01803 8003 SNOMED React ion: unkno wn, unspe cifie d;; Not Available [facility] 4 01:22:48 224404 Iodinated contrast media (substanc e) medicatio n Not available Not available Not available 10/19/2023 22447 2003 SNOMED Latha Fu null, [place] - [facility] 4 08:29:47 Medications Name Sig Start Date Stop Date Status Note LastModified by Organization Details LastModified Time atorvasta tin 40 mg tablet 02/08 completed Medicati on ID: [id number] D uration Value: 90 Brand Name: atorvast [...] mg tablet 04/04 completed Medicati on ID: [id number] B rand Name: senkristine Se nd Method: E-Prescr ibed Sub s Allowed: subs OK Speci al Instruct ion: TAKE 2 TABLETS BY MOUTH AT BEDTIME FOR CONSTIPA TION Med icationG enericNa me: senna Not Available Not Available Not Available sucralfat e 100 mg/mL oral suspensio n 04/04 completed Medicati on ID: [id number] B rand Name: sucralfa te Send Method: [...] eye drops 10/18 completed Medicati on ID: [id number] D uration Value: 14 Prescri bed By Name: KELLI Barros nd Name: Ciloxan Send Method: E-Prescr ibed Sub s Allowed: subs OK Speci al Instruct ion: 4 drops into affected ear BID X 14 days Med icationG enericNa me: Ciloxan Medicati on ID: [id number] D uration Value: 14 Prescri bed By Name: Yudith FelicianoKELLI harrison nd Name: Ciloxan Send Method: E-Prescr ibed Sub s Allowed: subs OK Speci al Instruct ion: 4 drops into affected ear BID X 14 days Med icationG enericNa me: Ciloxan Not Available Not Available Not Available ciproflox acin 500 mg tablet 1 tablet by mouth 08/02 completed Medicati on ID: [id number] D uration Value: 10 Prescri bed By [...] layed release 04/04 completed Medicati on ID: [id number] B rand Name: pantopra zole Sen d Method: E-Prescr ibed Sub s Allowed: subs OK Medic ationGen ericName : pantopra zole Not Available Not Available Not Available clotrimaz ole-betam ethasone 1 %-0.05 % topical cream Apply 1 a small amount to affected area three times a day 10/18 completed Medicati on ID: [id number] D uration Value: 14 Prescri bed By Name: Musa Ramirez nd Name: clotrima zole-bet amethaso ne Send Method: E-Prescr ibed Sub s Allowed: subs OK Speci al Instruct ion: Apply with fingerti p to external ear Medi cationGe nericNam e: clotrima zole-bet amethaso ne Medic ation ID: [id number] D uration Value: 14 Prescri bed By Name: Tracey Kaminski M.D. Bra nd Name: huongrijamil horowitze-bet amethbreezyo ne Send Method: E-Prescr ibed Sub s Allowed: subs OK Speci al Instruct ion: Apply with fingerti p to external ear Medi cationGe nericNam e: clotrima zole-bet amethaso ne Not Available Not Available Not Available clotrimaz ole 1 % topical solution 10/18 completed Medicati on ID: [id number] D uration Value: 14 Brand Name: clotrima zolkamran Sen d Method: E-Prescr ibed Sub s Allowed: subs OK Speci al Instruct ion: 4 drops to affected ear three times a day Medi cationGe nericNam e: clotrima zole Med ication ID: [id number] D uration Value: 14 Brand Name: clotrijamil [...] affected area 10/18 completed Medicati on ID: [id number] D uration Value: 14 Brand Name: mupiroci n Send Method: E-Prescr ibed Sub s Allowed: subs OK Medic ationGen ericName : mupiroci n Medica tion ID: [id number] D uration Value: 14 Brand Name: mupiroci n Send Method: E-Prescr ibed Sub s Allowed: subs OK Medic ationGen ericName : mupiroci n Not Available Not Available Not Available cefuroxim e axetil 500 mg tablet 1 tablet by mouth 10/18 completed Medicati on ID: [id number] D uration Value: 14 Brand Name: cefuroxi me axetil S end Method: E-Prescr ibed Sub s Allowed: subs OK Medic ationGen ericName : cefuroxi me axetil M eddyo n ID: [id number] D uration Value: 14 Brand Name: cefuroxi me axetil S end Method: E-Prescr ibed Sub s Allowed: subs OK Medic ationGen ericName : cefuroxi me axetil Not Available Not Available Not Available multivita min capsule 2019 active Medicati on ID: [id number] B rand Name: multivit anderson Sen d Method: E-Prescr ibed Sub s Allowed: subs OK Medic ationGen ericName : multivit anderson Not Available Not Available Not Available oxycodone 5 mg tablet 1 tablet by mouth 10/18 completed Medicati on ID: [id number] D uration Value: 3 Brand Name: oxycodon e Send Method: E-Prescr ibed Sub s Allowed: subs OK Medic ationGen ericName : oxycodon e Medica tion ID: [id number] D uration Value: 3 Brand Name: oxycodon e Send Method: E-Prescr ibed Sub s Allowed: subs OK Medic ationGen ericName : oxycodon e Not Available Not Available Not Available neomycin 3.5 mg/g-poly myxin B 10,000 unit/g-de xameth 0.1 % eye oint 10/25 completed Medicati on ID: [id number] Juan Pablo conteh d By Name: Musa Ramirez nd Name: neomycin -polymyx in B-dexame th Send Method: E-Prescr ibed Sub s Allowed: subs OK Speci al Instruct ion: apply to both ear canals TID [facility] cation[facility] nericNam e: neomycin -polymyx in B-dexame th Not Available Not Available Not Available Ciprodex 0.3 %-0.1 % ear drops,luiz pension 4 drop 10/18 completed Medicati on ID: [id number] D uration Value: 14 Brand Name: Ciprodex Send Method: E-Prescr ibed Sub s Allowed: subs OK Medic ationGen ericName : Ciprodex Medicat ion ID: [id number] D uration Value: 14 Brand Name: Ciprodex [...] topical ointment 10/18 completed Medicati on ID: [id number] D uration Value: 30 Brand Name: Cortispo rin Send Method: E-Prescr ibed Sub s Allowed: subs OK Speci al Instruct ion: apply to bith ears canals three times a day Medi cationGe nericNam e: Cortispo rin Medi cation ID: [id number] D uration Value: 30 Brand Name: Cortispo [...] SNOMED-CT Code Diagnosis ICD10 Code Diagnosis Note [id number] TRACEY KAMINSKI MD [facility] [address] [place] [address] 04/04/2024 07:58:18 04/04/2024 08:33:09 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 She is always welcome to come back to see me if she wants to proceed with left-sided meatoplast y. Impacted c erumen in left ear [id number] H61.22 Health Concerns Section Related Observation LastModified by Organization Detai ls LastModified Time None Recorded Concern Status LastModified by Organization Details LastModified Time None Recorded Payers Encounter Date Sequence Insurance Name Policy Number Policy Chi Covered Member ID Chi Member ID Guarantor Name 04/04/2024 2 [facility] [employer] (MEDICARE SUPPLEMENT) [id number] Maureen Foreman [id number] Maureen Foreman 04/04/2024 1 MEDICARE B-[place]: [facility] Maureen Foreman [id number] Maureen Foreman Notes Date Note Type [...] by difficulty hearing. TRACEY KAMINSKI MD [address], [address], [facility] - [facility] 04/04/2024 08:38:51 OBGyn Episode No OBEpisode recorded.
[2024-05-21 15:08] VITALS: BP 146/74; PULSE 77; RESP 18; TEMP 36.4; O2SAT 98
== END 2024-05-21 15:08 | disposition home or self-care (01) ==
PROVIDERS: Emergency Provider Emergency Medicine; PCP Internal Medicine
DX: Z48.02 Encounter for removal of sutures (principal); Z79.899 Other long term (current) drug therapy
CPT/HCPCS: 99282

== ENCOUNTER → 2024-06-01 13:15 | Outpatient (BNVA) | payer MEDICARE, OTHER, SELFPAY | PROVIDERS: PCP Internal Medicine; Visit Provider Dietitian, Registered | DX: R63.4 Abnormal weight loss (principal) | CPT/HCPCS: 97803 ==

== ENCOUNTER → 2024-06-02 09:50 | Outpatient (BNV) | payer MEDICARE, OTHER, SELFPAY | PROVIDERS: PCP Internal Medicine; Referring Provider Nurse Practitioner Family; Visit Provider Nurse Practitioner Family | DX: D72.819 Decreased white blood cell count, unspecified (principal) | CPT/HCPCS: 99202; 99204 ==

== ENCOUNTER 2024-06-05 11:34 | Outpatient (AMB) | payer MEDICARE, OTHER, SELFPAY ==
--- NOTE | 2024-06-05 11:37 | A.OFFVIS_ITS ---
Vital Signs 06/05/24 11:45 Height 5 ft 8 in Weight 119 lb 7.849 oz BMI 18.2 BP 140/70 H Blood Pressure Location Rt brachial Position Sitting Pulse 80 Pulse Source Pulse Oximeter Pulse Oximetry (%) 99 Oxygen Delivery Method Room Air Intake Visit Reasons: 3 wks Intake Note: ESTABLISHED PATIENT for Leukopenia + epigastric pain mgmt. Labs done. US scheduled for 06/13. Chief Complaint; Occasional episodes, normal presentation for pt. Pt reports having 2 good days and 2 bad days. Only taking 20 mg protonix right now with mixed results. No other concerns per pt. Rolled Seat Trimmer Required: No Accompanied by: Self / Same As Patient Allergies cephalexin [From KEFLEX] Allergy (Severe, Verified 06/05/24 11:37) RASH Sulfa (Sulfonamide Antibiotics) [SULFA (SULFONAMIDE ANTIBIOTICS)] Allergy (Severe, Verified 06/05/24 11:37) INTSERNAL AND EXTERNAL RASH/INFECTION Iodinated Contrast Media [IV Dye, Iodine Containing] Allergy (Intermediate, Verified 06/05/24 11:37) HIVES,REDNESS + SWELLING sulfamethoxazole [From BACTRIM] Allergy (Intermediate, Verified 06/05/24 11:37) INTERNAL AND EXTERNAL RASH/ INFECTION stent Allergy (Uncoded 06/05/24 11:37) Vomiting HPI HPI 3 wks: Details: LAST VISIT Epigastric pain Weight loss, unintentional GERD (gastroesophageal reflux disease) Chronic leukopenia Transaminitis Plan Patient will stop taking Nexium and will try her on pantoprazole twice a day. She will can go back to taking Nexium if pantoprazole is not helpful. Last liver enzymes elevated we will repeated today. MRI of abdomen from December of 2023 showed normal liver and spleen with normal liver morphology. Ultrasound will be ordered to check liver echogenicity. Possible fatty liver disease. Also possibility that her liver enzymes are elevated because she is on rosuvastatin. Leukopenia and lymphopenia is chronic discuss with Dr. Marc and she agrees with a referral to hook and eye sewing machine operator. Referral placed. Continue follow-up with application architect manager. Follow-up in 3-4 weeks, sooner on as needed basis. She is agreeable to this plan and verbalizes understanding of instructions. She was given the opportunity to ask questions and all questions answered. ? Thank you for allowing me to participate in her care Orders Orders US abdomen complete Today R74.01 Liver Panel Today R74.01 Referrals Hematology & Oncology Referral D72.819 Medications New pantoprazole 20 mg PO BID 60 tabs 3RF Discontinued esomeprazole magnesium Discontinued Reason: Doctor's Order 20 mg PO BID 60 caps 2RF TODAY'S VISIT Patient is here today for follow-up. Patient reports to be feeling fairly well couple episodes of burping and phlegm coming up in the evening since last visit. One episode of nausea that went away. Patient started on pantoprazole a week ago. Patient held off on taking it as she was given antibiotics 3 weeks ago or so. Patient fell, mechanical fall, seen in the ER suture above left eye placed on antibiotics. Tolerated well. Patient is going for ultrasound next week. Saw hook and eye sewing machine operator for chronic leukopenia week ago and did blood work. Patient is waiting results. Overall patient reports that she has been doing well. More food introduced over the past couple weeks which she tolerates fairly well. Patient gained few lb since April [facility] Medical History Transaminitis Chronic leukopenia Erosive esophagitis Kidney stone GERD (gastroesophageal reflux disease) High cholesterol HTN (hypertension) Surgical History H/O lithotripsy H/O esophagogastroduodenoscopy (07/09/23) Social History Alcohol intake: never Patient Tobacco Use Status: Never used Tobacco Advance Directives Date on File: 09/22/23 service: No Current occupational status: retired Current occupational exposures/hazards: No Review of Systems Const Denies weight gain and Denies weight loss ENT Reports no additional complaints, Denies dysphagia and Denies odynophagia Card Reports no additional complaints Resp Reports no additional complaints GI Reports abdominal pain, Reports belching, Denies melena, Reports bloating, Denies change in bowel habits, Denies dysphagia, Denies excessive flatus, Denies dyspepsia, Reports heartburn (Occasional), Denies diarrhea, Denies loose stools, Denies nausea, Denies odynophagia and Denies vomiting Reports no additional complaints Musc Reports no additional complaints Neuro Reports no additional complaints Psych Reports no additional complaints Endo Reports no additional complaints Physical Exam Const General: no acute distress Orientation/consciousness: patient oriented x3 Resp Effort & Inspection: normal respiratory effort, able to speak in complete sentences, no tracheal deviation and symmetric chest movement Auscultation: clear to auscultation bilaterally Cardio Rate: regular rate GI Inspection: Yes normal to inspection and No distended Palpation (GI): Soft to palpation, not firm, nontender and No hepatosplenomegaly present Auscultation: normal bowel sounds General: Yes no CVA tenderness Back/Spine/Pelvis Back: no CVA tenderness Skin General skin exam: elasticity normal, turgor normal and dry skin Neuro General: patient oriented x3 Psych Appearance: grossly normal Mental Status: mental status grossly normal Assessment & Plan Assessment & Plan (1) Epigastric pain: Code(s): R10.13 - Epigastric pain Category: Medical (2) Weight loss, unintentional: Code(s): R63.4 - Abnormal weight loss Category: Medical (3) Chronic leukopenia: Code(s): D72.819 - Decreased white blood cell count, unspecified Category: Medical (4) Transaminitis: Code(s): R74.01 - Elevation of levels of liver transaminase levels Category: Medical (5) GERD (gastroesophageal reflux disease): Code(s): K21.9 - Gastro-esophageal reflux disease without esophagitis Qualifiers: Esophagitis presence: esophagitis presence not specified Qualified Code(s): K21.9 - Gastro-esophageal reflux disease without esophagitis Plan Patient will continue taking pantoprazole twice a day. Continue avoiding dietary triggers. Patient was encouraged to drink fluids, continue her protein shakes. Continue introducing new food slowly. Avoiding trying new things all at once. Patient was discouraged from eating and trying processed food. Patient was encouraged to avoid chips as they do not have any nutritional value and could set her back. Patient will follow-up in 1 month, sooner on as needed basis. She is agreeable to this plan and verbalizes understanding of instructions. She was given the opportunity to ask questions and all questions answered. Thank you for allowing me to participate in her care Coding Level of Care Code Est Pt Level 3 (81131) Diagnoses Epigastric pain R10.13 Weight loss, unintentional R63.4 Chronic leukopenia D72.819 Transaminitis R74.01 Gastroesophageal reflux disease, unspecified whether esophagitis present K21.9 Esophagitis presence: esophagitis presence not specified Time Spent (min) 30 Comment 20 minutes spent with patient and additional 10 minutes spent reviewing her records
[2024-06-05 11:45] VITALS: BP 140/70; PULSE 80; O2SAT 99; BMI 18.2
--- OUTSIDE RECORDS SUMMARY | 2024-06-05 12:54 | XMS_ITS | Data Portability ---
Author Organization [place] - [facility], Allergy Address [address] [address] Care Team Providers Care Crusher And Blender Operator Name Role Phone GRAHAM HARGROVE Primary Care Provider [phone] Assessment No assessment recorded. Plan of Treatment [...] Recorded Time Impacted cerumen in left ear [id number] 60197 Active 2019 Impacted cerumen, left ear; Note: Date Diagnose d: 0 9:06 AM (H61.22) Not Available [facility] 4 02:59:24 Bilatera l diffuse otitis externa [id number] Completed 201912/03/2023 Diffuse otitis externa, bilatera l; Note: Changed from H60.312 to H60.313 ( 0 9:01 AM) , Date Diagnose d: 0 11:52 AM (H60.312 ) Not Available [facility] 4 02:59:21 Cellulit is of both external ears 33068731490 Completed 201912/03/2023 Cellulit is of external ear, bilatera l; Note: Date Diagnose d: 08/10/2019 9:02 AM (H60.13) Not Available [facility] 4 02:59:22 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 84819885963 Active 2019 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 and infectio n; Note: Date Diagnose d: 0 8:43 AM (H61.322 ) Not Available [facility] 4 02:59:21 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 82092891711 Completed 201912/03/2023 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 and infectio n; Note: Date Diagnose d: 0 8:43 AM (H61.321 ) Not Available [facility] 4 02:59:22 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 91525732024 10130 Active 2019 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 and infectio n; Note: Date Diagnose d: 0 8:43 AM (H61.322 ) Not Available [facility] 4 02:59:21 Acute myringit is of right ear 09926694876 11227 Completed 201912/03/2023 Acute myringit is, right ear; Note: Date Diagnose d: 0 10:14 AM (H73.001 ) Not Available [facility] 4 02:59:21 Otitis externa of bilatera l ears 27788549219 44157 Completed 201912/03/2023 Other otitis externa, bilatera l; Note: Date Diagnose d: 09/07/2019 10:30 AM (H60.8X3 ) Not Available [facility] 4 02:59:24 Candidal otitis externa 07568513 Active 2022 Candidal otitis externa; Note: Date Diagnose d: 3 8:45 AM (B37.84) Candid al otitis externa; Note: Date Diagnose d: 0 9:31 AM (B37.84) ; Start Date : 05/18/19 20 Not Available [facility] 4 02:59:22 Sensorin eural hearing loss of bilatera l ears 588245304 Active 2020 Sensorin eural hearing loss, bilatera l; Note: Date Diagnose d: 1 9:19 AM (H90.3) Not Available [facility] 4 02:59:25 Impacted cerumen of bilatera l ears 26622531053 67307 Active 2019 Impacted cerumen, bilatera l; Note: Date Diagnose d: 0 9:31 AM (H61.23) Not Available [facility] 4 02:59:23 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 08881083908 Active 2019 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 and infectio n, bilatera l; Note: Date Diagnose d: 0 9:37 AM (H61.323 ) Not Available [facility] 4 02:59:24 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 66343444879 82256 Active 2019 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 and infectio n, bilatera l; Note: Date Diagnose d: 0 9:37 AM (H61.323 ) Not Available [facility] 4 02:59:24 Follow-u p visit Active 2019 [...] : 10/30/19 20 Not Available [facility] 4 02:59:25 Problem Notes None recorded. Procedures Surgical History Date Name Laterality Status Provider Name and Address Organization Details Recorded Time 04/04/20 24 Cerumen removal with microscope left completed TRACEY KAMINSKI MD [address] [place] [address],[address], [address], [facility] - [facility] 04/03/2024 07:34:32 01/04/20 24 Cerumen removal with microscope left completed TRACEY KAMINSKI MD [address] [place] [address],[address], [address], [place] - [facility] 01/04/2024 09:06:38 10/19/19 24 Cerumen removal with microscope left completed TRACEY KAMINSKI MD [address] [place] [address],[address], [address], [place] - [facility] 10/19/2023 08:46:23 lithotripsy completed Latha Fu [place] - [facility] 10/19/2023 08:30:53 meatoplasty of external ear completed Latha Fu [place] - [facility] 10/19/2023 08:31:07 Imaging Results Imaging Date Name Status LastModified by [facility] ation Details LastModified Time 09/27/2018 imaging/diagno stic [...] Name and Address Organization Details Recorded Time 027236 cephalexi n monohydra te medicatio n other Not available Not available 09/14/2023 13572 8 RxNorm React ion: unkno wn, unspe cifie d;; Not Available [facility] 4 01:22:48 471434 Substance with sulfonami de structure and antibacte rial mechanism of action (substanc e) medicatio n other Not available Not available 09/14/2023 01746 8003 SNOMED React ion: unkno wn, unspe cifie d;; Not Available [facility] 4 01:22:48 088597 Iodinated contrast media (substanc e) medicatio n Not available Not available Not available 10/19/2023 42382 2003 SNOMED Latha monteiro [place] - [facility] 4 08:29:47 Medications Name Sig Start Date Stop Date Status Note LastModified by Organization Details LastModified Time atorvasta tin 40 mg tablet 02/08 completed Medicati on ID: [id number] D uration Value: 90 Brand Name: atorvast [...] mg tablet 04/04 completed Medicati on ID: [id number] B rand Name: senna Se nd Method: E-Prescr ibed Sub s Allowed: subs OK Speci al Instruct ion: TAKE 2 TABLETS BY MOUTH AT BEDTIME FOR CONSTIPA TION Med icationG enericNa me: senna Not Available Not Available Not Available sucralfat e 100 mg/mL oral suspensio n 04/04 completed Medicati on ID: [id number] B rand Name: sucralfa te Send Method: [...] eye drops 10/18 completed Medicati on ID: [id number] D uration Value: 14 Prescri bed By Name: KELLI Barros nd Name: Ciloxan Send Method: E-Prescr ibed Sub s Allowed: subs OK Speci al Instruct ion: 4 drops into affected ear BID X 14 days Med icationG enericNa me: Ciloxan Medicati on ID: [id number] D uration Value: 14 Prescri bed By Name: KELLI Barros nd Name: Ciloxan Send Method: E-Prescr ibed Sub s Allowed: subs OK Speci al Instruct ion: 4 drops into affected ear BID X 14 days Med icationG enericNa me: Ciloxan Not Available Not Available Not Available ciproflox acin 500 mg tablet 1 tablet by mouth 08/02 completed Medicati on ID: [id number] D uration Value: 10 Prescri bed By [...] layed release 04/04 completed Medicati on ID: [id number] B rand Name: pantopra zole Sen d Method: E-Prescr ibed Sub s Allowed: subs OK [facility]ole Not Available Not Available Not Available clotrimaz ole-betam ethasone 1 %-0.05 % topical cream Apply 1 a small amount to affected area three times a day 10/18 completed Medicati on ID: [id number] D uration Value: 14 Prescri bed By Name: Musa Ramirez nd Name: clotrima zole-bet amethaso ne Send Method: E-Prescr ibed Sub s Allowed: subs ELIZABETH Hernandez al Instruct ion: Apply with fingerti p to external ear Medi cationGe nericNam e: clotrima zole-bet amethaso ne Medic ation ID: [id number] D uration Value: 14 Prescri bed By Name: Musa Ramirez nd Name: clotrima zole-bet amethaso ne Send Method: E-Prescr ibed Sub s Allowed: subs OK Speci al Instruct ion: Apply with fingerti p to external ear Medi cationGe nericNam e: clotrima zole-bet amethaso ne Not Available Not Available Not Available clotrimaz ole 1 % topical solution 10/18 completed Medicati on ID: [id number] D uration Value: 14 Brand Name: clotrima zole Sen d Method: E-Prescr ibed Sub s Allowed: subs OK Speci al Instruct ion: 4 drops to affected ear three times a day Medi cationGe nericNam e: clotrima zole Med ication ID: [id number] D uration Value: 14 Brand Name: clotrima [...] affected area 10/18 completed Medicati on ID: [id number] D uration Value: 14 Brand Name: mupiroci n Send Method: E-Prescr ibed Sub s Allowed: subs OK Medic ationGen ericName : mupiroci n Medica tion ID: [id number] D uration Value: 14 Brand Name: mupiroci n Send Method: E-Prescr ibed Sub s Allowed: subs OK Medic ationGen ericName : mupiroci n Not Available Not Available Not Available cefuroxim e axetil 500 mg tablet 1 tablet by mouth 10/18 completed Medicati on ID: [id number] D uration Value: 14 Brand Name: cefuroxi me axetil S end Method: E-Prescr ibed Sub s Allowed: subs OK Medic ationGen ericName : cefuroxi me axetil M edicatio n ID: [id number] D uration Value: 14 Brand Name: cefuroxi me axetil S end Method: E-Prescr ibed Sub s Allowed: subs OK Medic ationGen ericName : cefuroxi me axetil Not Available Not Available Not Available multivita min capsule 2019 active Medicati on ID: [id number] B rand Name: multivit anderson Sen d Method: E-Prescr ibed Sub s Allowed: subs OK Medic ationGen ericName : multivit anderson Not Available Not Available Not Available oxycodone 5 mg tablet 1 tablet by mouth 10/18 completed Medicati on ID: [id number] D uration Value: 3 Brand Name: oxycodon e Send Method: E-Prescr ibed Sub s Allowed: subs OK Medic ationGen ericName : oxycodon e Medica tion ID: [id number] D uration Value: 3 Brand Name: oxycodon e Send Method: E-Prescr ibed Sub s Allowed: subs OK Medic ationGen ericName : oxycodon e Not Available Not Available Not Available neomycin 3.5 mg/g-poly myxin B 10,000 unit/g-de xameth 0.1 % eye oint 10/25 completed Medicati on ID: [id number] P yady d By Name: Musa Ramirez nd Name: neomycin -polymyx in B-dexame th Send Method: E-Prescr ibed Sub s Allowed: subs OK Speci al Instruct ion: apply to both ear canals TID Medi cationGe nericNam e: neomycin -polymyx in B-dexame th Not Available Not Available Not Available Ciprodex 0.3 %-0.1 % ear drops,luiz pension 4 drop 10/18 completed Medicati on ID: [id number] D uration Value: 14 Brand Name: Ciprodex Send Method: E-Prescr ibed Sub s Allowed: subs OK Medic ationGen ericName : Ciprodex Medicat ion ID: [id number] D uration Value: 14 Brand Name: Ciprodex [...] topical ointment 10/18 completed Medicati on ID: [id number] D uration Value: 30 Brand Name: Joseph gonzalez Send Method: E-Prescr ibed Sub s Allowed: subs OK Speci al Instruct ion: apply to bith ears canals three times a day Medi cationGe nericNam e: Machopo lisa Medi cation ID: [id number] D uration Value: 30 Brand Name: Joseph [...] History Nothing Reported. Medical History Condition Response GERD/Reflux Y High Cholesterol Y Hypertension Y Gynecological HistoryNo gynecological history recorded. 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 Impacted c erumen in left ear 2820615352 825984 H61.22 [id number] TRACEY KAMINSKI MD [facility] [address] [address] 04/04/2024 07:58:18 04/04/2024 08:33:09 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 3389528870 824036 H61.322 The right external auditory canal remains [...] having her follow-up with a physician assistant operations manager going forward for cerumen removal. She is always welcome to come back to see me if she wants to proceed with left-sided meatoplast y. Impacted c erumen in left ear 2641823751 970707 H61.22 Health Concerns Section Related Observation LastModified by Organization Detai ls LastModified Time None Recorded Concern Status LastModified by Organization Details LastModified Time None Recorded Advance Directives Directive None Recorded Payers Encounter Date Sequence Insurance Name Policy Number Policy Chi Covered Member ID Chi Member ID Guarantor Name 10/19/2023 1 [place]MENT [place] Maureen Francisco Javier Thomasdziel [id number] Maureen J Williamdziel 10/19/2023 2 [employer]IC[employer] - SENIOR SERVICES PLAN F (MEDICARE SUPPLEMENT) [id number] Maureen Francisco Javier Williamdziel [id number] Maureen Mcintyre Williamdziel 01/04/2024 1 [place] Maureen Francisco Javier Thomasdziel [id number] 2 Maureen Francisco Javier Kurdziel 01/04/2024 2 [employer] - SENIOR SERVICES PLAN F (MEDICARE SUPPLEMENT) [id number] Maureen Francisco Javier Thomasdziel [id number] Maureen Francisco Javier Kurdziel 04/04/2024 2 UNICARE - GIC INDEMNITY PLAN (MEDICARE SUPPLEMENT) [id number] Maureen Francisco Javier Williamdziel [id number] Maureen Francisco Javier Kurdziel 04/04/2024 1 [place] Maureen Francisco Javier Thomasdziel [id number] 2 Maureen Francisco Javier Kurdziel Notes Date [...] accompanied by difficulty hearing. TRACEY KAMINSKI MD [address] [place] [address], [phone], [facility] - [facility] 10/19/2023 08:51:52 01/04/2024 text/html 83-year-old markus flores presents for cerumen removal. She has a history of bilateral external auditory canals stenosis. Meatoplasty done in 2019 on the right side with resulting resolution of the stenosis on the right. She reports the right ear is feeling great. Recent blockage sensation on the left accompanied by difficulty hearing. TRACEY KAMINSKI MD [address] [facility],[address], [address], [facility] - [facility] 01/04/2024 09:08:08 04/04/2024 text/html 83-year-old femlolita flores presents for cerumen removal. She has a history of bilateral external auditory canals stenosis. Meatoplasty done in 2019 on the right side with resulting resolution of the stenosis on the right. She reports the right ear is feeling great. Recent blockage sensation on the left accompanied by difficulty hearing. TRACEY KAMINSKI MD 100 [facility], [place], [address], [facility] 04/04/2024 08:38:51 OBGyn Episode No OBEpisode recorded.
== END 2024-06-05 12:10 | disposition home or self-care (01) ==
PROVIDERS: PCP Internal Medicine; Visit Provider Nurse Practitioner Family
DX: R10.13 Epigastric pain (principal); R63.4 Abnormal weight loss; D72.819 Decreased white blood cell count, unspecified; R74.01 Elevation of levels of liver transaminase levels; K21.9 Gastro-esophageal reflux disease without esophagitis
CPT/HCPCS: 99213

== ENCOUNTER → 2024-06-05 11:34 | Outpatient (BNVA) | payer MEDICARE, OTHER, SELFPAY | PROVIDERS: PCP Internal Medicine; Visit Provider Nurse Practitioner Family | DX: R10.13 Epigastric pain (principal); R63.4 Abnormal weight loss; R74.01 Elevation of levels of liver transaminase levels; D72.819 Decreased white blood cell count, unspecified; K21.9 Gastro-esophageal reflux disease without esophagitis | CPT/HCPCS: 99212 ==

== ENCOUNTER 2024-06-09 11:14 | Outpatient (REF) | payer MEDICARE, OTHER, SELFPAY | END 2024-06-09 11:15 | disposition home or self-care (01) | LOC: HO.US 11:14 | PROVIDERS: PCP Internal Medicine; Visit Provider Internal Medicine | DX: I77.9 Disorder of arteries and arterioles, unspecified (principal); I65.23 Occlusion and stenosis of bilateral carotid arteries ==

== ENCOUNTER → 2024-06-09 11:16 | Outpatient (BNV) | payer MEDICARE, OTHER, SELFPAY | PROVIDERS: PCP Internal Medicine; Visit Provider Radiology Diagnostic Radiology | DX: I25.10 Atherosclerotic heart disease of native coronary artery without angina pectoris (principal) | CPT/HCPCS: 93880 ==

== ENCOUNTER 2024-06-13 07:47 | Outpatient (REF) | payer MEDICARE, OTHER, SELFPAY | END 2024-06-13 07:48 | disposition home or self-care (01) | LOC: HO.US 07:47 | PROVIDERS: PCP Internal Medicine; Visit Provider Nurse Practitioner Family | DX: R74.01 Elevation of levels of liver transaminase levels (principal) | CPT/HCPCS: 76700 ==

== ENCOUNTER → 2024-06-13 07:49 | Outpatient (BNV) | payer MEDICARE, OTHER, SELFPAY | PROVIDERS: PCP Internal Medicine; Visit Provider Radiology Diagnostic Radiology | DX: R74.01 Elevation of levels of liver transaminase levels (principal) | CPT/HCPCS: 76700 ==

== ENCOUNTER 2024-07-03 07:45 | Outpatient (REF) | payer MEDICARE, OTHER, SELFPAY ==
[2024-07-03 11:03] LABS: C Reactive Protein < 0.10 mg/dL (< or = 0.50); Iron 123 mcg/dL (30-160); Percent Iron Saturation 36 % (15-50); Total Iron Binding Capacity 338 mcg/dL (228-428); Unsaturated Iron Binding 215 ug/dL
[2024-07-03 11:22] LABS: Ferritin 32 ng/mL (10-250)
[2024-07-04 10:58] LABS: Alpha Fetoprotein 5.3 ng/mL
[2024-07-04 20:09] LABS: Ceruloplasmin 26 mg/dL (14-48)
[2024-07-06 11:17] LABS: Mitochondrial Antibodies NEGATIVE (NEGATIVE)
[2024-07-06 11:23] LABS: Smooth Muscle Antibody <20 U (<20)
[2024-07-13 09:03] LABS: FIB-ALT 18 U/L (6-29); FIB-Alpha-2-Macroglobulin 198 mg/dL (106-279); FIB-Apolipoprotein A1 223 mg/dL (101-198); FIB-GGT 27 U/L (3-65); FIB-Haptoglobin 77 mg/dL (43-212); FIB-Total Bilirubin 0.6 mg/dL (0.2-1.2); Liver Fibrosis Score 0.25; Liver Fibrosis Stage F0-F1; Nec Inflam Act Grade A0; Nec Inflam Act Score 0.06
== END 2024-07-03 07:46 | disposition home or self-care (01) ==
LOC: HO.LAB 07:45
PROVIDERS: PCP Internal Medicine; Visit Provider Nurse Practitioner Family
DX: R79.89 Other specified abnormal findings of blood chemistry (principal); K76.0 Fatty (change of) liver, not elsewhere classified; K58.9 Irritable bowel syndrome, unspecified; R10.13 Epigastric pain; R63.4 Abnormal weight loss; D72.819 Decreased white blood cell count, unspecified; R74.01 Elevation of levels of liver transaminase levels; K21.9 Gastro-esophageal reflux disease without esophagitis
CPT/HCPCS: 36415; 81596; 82105; 82390; 82728; 83540; 86015; 86140; 86381; 99212

== ENCOUNTER 2024-07-03 07:45 | Outpatient (AMB) | payer MEDICARE, OTHER, SELFPAY ==
--- OUTSIDE RECORDS SUMMARY | 2024-07-03 07:48 | XMS_ITS ---
Author Organization [facility] Address [address] [place] [address] Care Team Providers Care Clutch Assembler Name Role Phone Alton Durham MD Primary Care Provider Bean Cortes Jr Unavailable REASON FOR VISIT BELCHING Encounters Encounter Location Date Provider Diagnosis [facility] [address] [place] [address] 09/16/2023 Bean Holley Jr PLAN OF TREATMENT No Information
--- OUTSIDE RECORDS SUMMARY | 2024-07-03 07:48 | XMS_ITS | Patient Health Record ---
Author Organization [facility] Address [address] [place] [address] Care Team Providers Care Soaker Meat Name Role Phone Alton Durham MD Primary Care Provider Bean Cortes Jr [phone] REASON FOR REFERRAL No Information SOCIAL HISTORY Sex Assigned At : Social History Observation Description Sex Assigned At Unknown Encounters Encounter Location Date Provider Diagnosis [facility] [address] [place] [address] 09/16/2023 Bean Holley Jr PLAN OF TREATMENT No Information Insurance Providers Payer Name Payer Address Payer Phone Subscriber Number Group Number Insured Name Patient Relationship to Insured Coverage Start Date Coverage End Date [facility]IC[facility] [address] [place], [place] [id number] ARINA WHITE Self - patient is the insured [facility] [address] [address] [place] [address] [id number] ARINA WHITE Self - patient is the insured
--- OUTSIDE RECORDS SUMMARY | 2024-07-03 07:48 | XMS_ITS | Data Portability ---
Author Organization [place] [facility] Address [address] [address] Care Team Providers Care Document Review Attorney Name Role Phone GRAHAM HARGROVE Primary Care Provider [phone] Assessment No assessment recorded. Plan of Treatment [...] Recorded Time Impacted cerumen in left ear [id number] 93338 Active 2019 Impacted cerumen, left ear; Note: Date Diagnose d: 0 9:06 AM (H61.22) Not Available [facility] 4 02:59:24 Bilatera l diffuse otitis externa [id number] Completed 201912/03/2023 Diffuse otitis externa, bilatera l; Note: Changed from H60.312 to H60.313 ( 0 9:01 AM) , Date Diagnose d: 0 11:52 AM (H60.312 ) Not Available [facility] 4 02:59:21 Cellulit is of both external ears 59217909765 Completed 201912/03/2023 Cellulit is of external ear, bilatera l; Note: Date Diagnose d: 08/10/2019 9:02 AM (H60.13) Not Available [facility] 4 02:59:22 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 82523459010 Active 2019 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 and infectio n; Note: Date Diagnose d: 0 8:43 AM (H61.322 ) Not Available [facility] 4 02:59:21 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 45501626222 Completed 201912/03/2023 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 and infectio n; Note: Date Diagnose d: 0 8:43 AM (H61.321 ) Not Available [facility] 4 02:59:22 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 25125489823 65557 Active 2019 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 and infectio n; Note: Date Diagnose d: 0 8:43 AM (H61.322 ) Not Available [facility] 4 02:59:21 Acute myringit is of right ear 90043576162 28841 Completed 201912/03/2023 Acute myringit is, right ear; Note: Date Diagnose d: 0 10:14 AM (H73.001 ) Not Available [facility] 4 02:59:21 Otitis externa of bilatera l ears 29692150294 06777 Completed 201912/03/2023 Other otitis externa, bilatera l; Note: Date Diagnose d: 09/07/2019 10:30 AM (H60.8X3 ) Not Available [facility] 4 02:59:24 Candidal otitis externa 62835535 Active 2022 Candidal otitis externa; Note: Date Diagnose d: 3 8:45 AM (B37.84) Candid al otitis externa; Note: Date Diagnose d: 0 9:31 AM (B37.84) ; Start Date : 05/18/19 20 Not Available [facility] 4 02:59:22 Sensorin eural hearing loss of bilatera l ears 261359359 Active 2020 Sensorin eural hearing loss, bilatera l; Note: Date Diagnose d: 1 9:19 AM (H90.3) Not Available [facility] 4 02:59:25 Impacted cerumen of bilatera l ears 73883436159 98272 Active 2019 Impacted cerumen, bilatera l; Note: Date Diagnose d: 0 9:31 AM (H61.23) Not Available [facility] 4 02:59:23 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 47999457682 Active 2019 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 and infectio n, bilatera l; Note: Date Diagnose d: 0 9:37 AM (H61.323 ) Not Available [facility] 4 02:59:24 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 20353677420 04634 Active 2019 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 and infectio n, bilatera l; Note: Date Diagnose d: 0 9:37 AM (H61.323 ) Not Available [facility] 4 02:59:24 Follow-u p visit Active 2019 [...] : 10/30/19 20 Not Available [facility] 4 02:59:25 Problem Notes None recorded. Procedures Surgical History Date Name Laterality Status Provider Name and Address Organization Details Recorded Time 04/04/20 24 Cerumen removal with microscope left completed TRACEY KAMINSKI MD [address] [place] [address],[address], [address], [facility] - [facility] 04/03/2024 07:34:32 01/04/20 24 Cerumen removal with microscope left completed TRACEY KAMINSKI MD [address] [place] [address],[address], [address], [place] - [facility] 01/04/2024 09:06:38 10/19/19 24 Cerumen removal with microscope left completed TRACEY KAMINSKI MD [address] [place] [address],[address], [address], [place] [facility] 10/19/2023 08:46:23 lithotripsy completed Latha Fu [place] - [facility] 10/19/2023 08:30:53 meatoplasty of external ear completed Latha Fu [place] - [facility] 10/19/2023 08:31:07 Imaging Results Imaging Date Name Status LastModified by [facility] ation Details LastModified Time 09/27/2018 imaging/diagno [...] Name and Address Organization Details Recorded Time 999020 cephalexi n monohydra te medicatio n other Not available Not available 09/14/2023 46988 8 RxNorm React ion: unkno wn, unspe cifie d;; Not Available [facility] 4 01:22:48 429344 Substance with sulfonami de structure and antibacte rial mechanism of action (substanc e) medicatio n other Not available Not available 09/14/2023 05317 8003 SNOMED React ion: unkno wn, unspe cifie d;; Not Available [facility] 4 01:22:48 317369 Iodinated contrast media (substanc e) medicatio n Not available Not available Not available 10/19/2023 37138 2003 SNOMED Latha monteiro [place] - [facility] 4 08:29:47 Medications Name Sig Start Date Stop Date Status Note LastModified by Organization Details LastModified Time atorvasta tin 40 mg tablet 02/08 completed Medicati on ID: [id number] D uration Value: 90 Brand Name: atorvast [...] mg tablet 04/04 completed Medicati on ID: [id number] B rand Name: senna Se nd Method: E-Prescr ibed Sub s Allowed: subs OK Speci al Instruct ion: TAKE 2 TABLETS BY MOUTH AT BEDTIME FOR CONSTIPA TION Med icationG enericNa me: senna Not Available Not Available Not Available sucralfat e 100 mg/mL oral suspensio n 04/04 completed Medicati on ID: [id number] B rand Name: sucralfa te Send Method: [...] eye drops 10/18 completed Medicati on ID: [id number] D uration Value: 14 Prescri bed By Name: KELLI Barros nd Name: Ciloxan Send Method: E-Prescr ibed Sub s Allowed: subs OK Speci al Instruct ion: 4 drops into affected ear BID X 14 days Med icationG enericNa me: Ciloxan Medicati on ID: [id number] D uration Value: 14 Prescri bed By Name: KELLI Barros nd Name: Ciloxan Send Method: E-Prescr ibed Sub s Allowed: subs OK Speci al Instruct ion: 4 drops into affected ear BID X 14 days Med icationG enericNa me: Ciloxan Not Available Not Available Not Available ciproflox acin 500 mg tablet 1 tablet by mouth 08/02 completed Medicati on ID: [id number] D uration Value: 10 Prescri bed By [...] layed release 04/04 completed Medicati on ID: [id number] B rand Name: pantopra zole Sen d Method: E-Prescr ibed Sub s Allowed: subs OK [facility] pantopra zole Not Available Not Available Not Available clotrimaz ole-betam ethasone 1 %-0.05 % topical cream Apply 1 a small amount to affected area three times a day 10/18 completed Medicati on ID: [id number] D uration Value: 14 Prescri bed By Name: Musa Ramirez nd Name: clotrima zole-bet amethaso ne Send Method: E-Prescr ibed Sub s Allowed: subs ELIZABETH Hernandez al Instruct ion: Apply with fingerti p to external ear Medi cationGe nericNam e: clotrima zole-bet amethaso ne Medic ation ID: [id number] D uration Value: 14 Prescri bed By Name: Musa Ramirez nd Name: clotrima zole-bet amethaso ne Send Method: E-Prescr ibed Sub s Allowed: subs OK Speci al Instruct ion: Apply with fingerti p to external ear Medi cationGe nericNam e: clotrima zole-bet amethaso ne Not Available Not Available Not Available clotrimaz ole 1 % topical solution 10/18 completed Medicati on ID: [id number] D uration Value: 14 Brand Name: clotrima zole Sen d Method: E-Prescr ibed Sub s Allowed: subs OK Speci al Instruct ion: 4 drops to affected ear three times a day Medi cationGe nericNam e: clotrima zole Med ication ID: [id number] D uration Value: 14 Brand Name: clotrima [...] affected area 10/18 completed Medicati on ID: [id number] D uration Value: 14 Brand Name: mupiroci n Send Method: E-Prescr ibed Sub s Allowed: subs OK Medic ationGen ericName : mupiroci n Medica tion ID: [id number] D uration Value: 14 Brand Name: mupiroci n Send Method: E-Prescr ibed Sub s Allowed: subs OK Medic ationGen ericName : mupiroci n Not Available Not Available Not Available cefuroxim e axetil 500 mg tablet 1 tablet by mouth 10/18 completed Medicati on ID: [id number] D uration Value: 14 Brand Name: cefuroxi me axetil S end Method: E-Prescr ibed Sub s Allowed: subs OK Medic ationGen ericName : cefuroxi me axetil M edicatio n ID: [id number] D uration Value: 14 Brand Name: cefuroxi me axetil S end Method: E-Prescr ibed Sub s Allowed: subs OK Medic ationGen ericName : cefuroxi me axetil Not Available Not Available Not Available multivita min capsule 2019 active Medicati on ID: [id number] B rand Name: multivit anderson Sen d Method: E-Prescr ibed Sub s Allowed: subs OK Medic ationGen ericName : multivit anderson Not Available Not Available Not Available oxycodone 5 mg tablet 1 tablet by mouth 10/18 completed Medicati on ID: [id number] D uration Value: 3 Brand Name: oxycodon e Send Method: E-Prescr ibed Sub s Allowed: subs OK Medic ationGen ericName : oxycodon e Medica tion ID: [id number] D uration Value: 3 Brand Name: oxycodon e Send Method: E-Prescr ibed Sub s Allowed: subs OK Medic ationGen ericName : oxycodon e Not Available Not Available Not Available neomycin 3.5 mg/g-poly myxin B 10,000 unit/g-de xameth 0.1 % eye oint 10/25 completed Medicati on ID: [id number] P yady d By Name: Musa Ramirez nd Name: neomycin -polymyx in B-dexame th Send Method: E-Prescr ibed Sub s Allowed: subs OK Speci al Instruct ion: apply to both ear canals TID Medi cationGe nericNam e: neomycin -polymyx in B-dexame th Not Available Not Available Not Available Ciprodex 0.3 %-0.1 % ear drops,luiz pension 4 drop 10/18 completed Medicati on ID: [id number] D uration Value: 14 Brand Name: Ciprodex Send Method: E-Prescr ibed Sub s Allowed: subs OK Medic ationGen ericName : Ciprodex Medicat ion ID: [id number] D uration Value: 14 Brand Name: Ciprodex [...] topical ointment 10/18 completed Medicati on ID: [id number] D uration Value: 30 Brand Name: Joseph gonzalez Send Method: E-Prescr ibed Sub s Allowed: subs OK Speci al Instruct ion: apply to bith ears canals three times a day Medi cationGe nericNam e: Machopo lisa Medi cation ID: [id number] D uration Value: 30 Brand Name: Joseph [...] Note [id number] TRACEY KAMINSKI MD [facility] [address] [address] 10/19/2023 08:21:18 10/21/2023 12:28:05 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 She is always welcome to come back to see me if she wants to proceed with left-sided meatoplast y. Impacted c erumen in left ear 8546449018 621387 H61.22 Health Concerns Section Related Observation LastModified by Organization Detai ls LastModified Time None Recorded Concern Status LastModified by Organization Details LastModified Time None Recorded Advance Directives Directive None Recorded Payers Encounter Date Sequence Insurance Name Policy Number Policy Chi Covered Member ID Chi Member ID Guarantor Name 10/19/2023 1 [place] Maureen Francisco Javier Thomasdziel [id number] Maureen J Williamdziel 10/19/2023 2 UNICARE - SENIOR SERVICES PLAN F (MEDICARE SUPPLEMENT) [id number] Maureen Francisco Javier Williamdziel [id number] Maureen Mcintyre Williamdziel 01/04/2024 1 [place] Maureen Francisco Javier Thomasdziel [id number] Maureen Francisco Javier Kurdziel 01/04/2024 2 [employer]ICARE - SENIOR SERVICES PLAN F (MEDICARE SUPPLEMENT) [id number] Maureen Francisco Javier Thomasdziel [id number] Maureen Francisco Javier Kurdziel 04/04/2024 2 UNICARE - GIC INDEMNITY PLAN (MEDICARE SUPPLEMENT) [id number] Maureen Francisco Javier Williamdziel [id number] Maureen Francisco Javier Kurdziel 04/04/2024 1 [place] Maureen Francisco Javier Thomasdziel [id number] 2 Maureen Francisco Javier Kurdziel Notes Date [...] accompanied by difficulty hearing. TRACEY KAMINSKI MD [address] [place] [address], [address], [facility] - [facility] 10/19/2023 08:51:52 01/04/2024 text/html 83-year-old markus flores presents for cerumen removal. She has a history of bilateral external auditory canals stenosis. Meatoplasty done in 2019 on the right side with resulting resolution of the stenosis on the right. She reports the right ear is feeling great. Recent blockage sensation on the left accompanied by difficulty hearing. TRACEY KAMINSKI MD [address] [facility],[address], [address], [facility] 01/04/2024 09:08:08 04/04/2024 text/html 83-year-old femlolita flores presents for cerumen removal. She has a history of bilateral external auditory canals stenosis. Meatoplasty done in 2019 on the right side with resulting resolution of the stenosis on the right. She reports the right ear is feeling great. Recent blockage sensation on the left accompanied by difficulty hearing. TRACEY KAMINSKI MD [address] [facility], [place], [address], [facility] 04/04/2024 08:38:51 OBGyn Episode No OBEpisode recorded.
--- OUTSIDE RECORDS SUMMARY | 2024-07-03 07:48 | XMS_ITS ---
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
[2024-07-03 08:04] VITALS: BP 158/78; PULSE 66; O2SAT 99; BMI 18.1
--- NOTE | 2024-07-03 08:04 | MHC.OFFVIS ---
Vital Signs 07/03/24 08:04 Height 5 ft 8 in Weight 119 lb BMI 18.1 BP 158/78 H Blood Pressure Location Rt brachial Position Sitting Pulse 66 Pulse Source Pulse Oximeter Pulse Oximetry (%) 99 Oxygen Delivery Method Room Air Intake Visit Reasons: 1 month f/u Intake Note: ESTABLISHED PATIENT for GERD + weight mgmt. Chief Complaint; C/O chronic sx without changes to the type of sx. Pt does report having more bad days than good days . Pt still reporting sx worse at night and would like to discuss medication changes. Sharepoint Consultant Required: No Allergies cephalexin [From KEFLEX] Allergy (Severe, Verified 07/03/24 08:07) RASH Sulfa (Sulfonamide Antibiotics) [SULFA (SULFONAMIDE ANTIBIOTICS)] Allergy (Severe, Verified 07/03/24 08:07) INTSERNAL AND EXTERNAL RASH/INFECTION Iodinated Contrast Media [IV Dye, Iodine Containing] Allergy (Intermediate, Verified 07/03/24 08:07) HIVES,REDNESS + SWELLING sulfamethoxazole [From BACTRIM] Allergy (Intermediate, Verified 07/03/24 08:07) INTERNAL AND EXTERNAL RASH/ INFECTION stent Allergy (Uncoded 07/03/24 08:07) Vomiting HPI HPI 1 month f/u: Details: LAST VISIT: Epigastric pain Weight loss, unintentional Chronic leukopenia Transaminitis GERD (gastroesophageal reflux disease) Plan Patient will continue taking pantoprazole twice a day. Continue avoiding dietary triggers. Patient was encouraged to drink fluids, continue her protein shakes. Continue introducing new food slowly. Avoiding trying new things all at once. Patient was discouraged from eating and trying processed food. Patient was encouraged to avoid chips as they do not have any nutritional value and could set her back. Patient will follow-up in 1 month, sooner on as needed basis. She is agreeable to this plan and verbalizes understanding of instructions. She was given the opportunity to ask questions and all questions answered. TODAY'S VISI Patient is here today for follow-up. Patient reports that she continues to take pantoprazole, however feels that Nexium was working better for her. Patient added extra food like shaver and pork. Patient reports usually in the afternoon some days she has belching increase plan. She is moving her bowels every other day or so. She continues to see dietitian. Drinks of fair life milk and adds sometimes protein powder. Patient denies any nausea or vomiting. Denies any dyspepsia, dysphagia or odynophagia patient denies any melena, hematochezia, unintentional weight loss or ribbon like stools. Patient continues to have high liver enzymes. We will need to evaluate. Patient follows with tube coremaker as well. ? [facility] Medical History Transaminitis Chronic leukopenia Erosive esophagitis Kidney stone GERD (gastroesophageal reflux disease) High cholesterol HTN (hypertension) Surgical History H/O lithotripsy H/O esophagogastroduodenoscopy (07/09/23) Social History Alcohol intake: never Patient Tobacco Use Status: Never used Tobacco Advance Directives Date on File: 09/22/23 service: No Current occupational status: retired Current occupational exposures/hazards: No Review of Systems Const Denies weight gain and Denies weight loss ENT Reports no additional complaints, Denies dysphagia and Denies odynophagia Card Reports no additional complaints Resp Reports no additional complaints GI Reports abdominal pain, Reports belching, Denies melena, Reports bloating, Denies change in bowel habits, Denies dysphagia, Denies excessive flatus, Denies dyspepsia, Reports heartburn (Occasional), Denies diarrhea, Denies loose stools, Denies nausea, Denies odynophagia and Denies vomiting Reports no additional complaints Musc Reports no additional complaints Neuro Reports no additional complaints Psych Reports no additional complaints Endo Reports no additional complaints Physical Exam Const General: no acute distress Orientation/consciousness: patient oriented x3 Resp Effort & Inspection: normal respiratory effort, able to speak in complete sentences, no tracheal deviation and symmetric chest movement Auscultation: clear to auscultation bilaterally Cardio Rate: regular rate GI Inspection: Yes normal to inspection and No distended Palpation (GI): Soft to palpation, not firm, nontender and No hepatosplenomegaly present Auscultation: normal bowel sounds General: Yes no CVA tenderness Back/Spine/Pelvis Back: no CVA tenderness Skin General skin exam: elasticity normal, turgor normal and dry skin Neuro General: patient oriented x3 Psych Appearance: grossly normal Mental Status: mental status grossly normal Assessment & Plan Assessment & Plan (1) Epigastric pain: Code(s): R10.13 - Epigastric pain Category: Medical (2) Weight loss, unintentional: Code(s): R63.4 - Abnormal weight loss Category: Medical (3) Chronic leukopenia: Code(s): D72.819 - Decreased white blood cell count, unspecified Category: Medical (4) Transaminitis: Code(s): R74.01 - Elevation of levels of liver transaminase levels Category: Medical (5) GERD (gastroesophageal reflux disease): Code(s): K21.9 - Gastro-esophageal reflux disease without esophagitis Qualifiers: Esophagitis presence: esophagitis presence not specified Qualified Code(s): K21.9 - Gastro-esophageal reflux disease without esophagitis Plan Patient will continue with her diet. Will change her PPI to Nexium as patient did better with that. Avoid dietary triggers and late night snacking. Staying upright for minimum 3 hours after meals discussed with patient. Patient is moving her bowels every other day. Recommended Benefiber with pre and probiotics. Transaminitis, will order labs to rule out any autoimmune disorders. Patient will follow-up in 4-5 weeks, sooner on as needed basis. She is agreeable to this plan and verbalizes understanding of instructions. She was given the opportunity to ask questions and all questions answered. Thank you for allowing me to participate in her care Orders: Orders Alpha Fetoprotein Today R79.89 - Other specified abnormal findings of blood chemistry Smooth Muscle Antibody Today R79.89 - Other specified abnormal findings of blood chemistry Liver Fibrosis Pnl Today K76.0 - Fatty (change of) liver, not elsewhere classified Ferritin Today R74.8 - Abnormal levels of other serum enzymes IRON PROFILE Today D64.9 - Anemia, unspecified C Reactive Protein Today K58.9 - Irritable bowel syndrome, unspecified Ceruloplasmin Today R79.89 - Other specified abnormal findings of blood chemistry Mitochondrial Antibody Today R79.89 - Other specified abnormal findings of blood chemistry Medications: New esomeprazole magnesium (Nexium) 20 mg PO BID 180 caps 4RF Coding Level of Care Code Est Pt Level 3 (37171) Diagnoses Epigastric pain R10.13 Weight loss, unintentional R63.4 Chronic leukopenia D72.819 Transaminitis R74.01 Gastroesophageal reflux disease, unspecified whether esophagitis present K21.9 Esophagitis presence: esophagitis presence not specified Time Spent (min) 30 Comment 20 minutes spent with patient and additional 10 minutes spent reviewing her records
== END 2024-07-03 10:00 | disposition home or self-care (01) ==
PROVIDERS: PCP Internal Medicine; Visit Provider Nurse Practitioner Family
DX: R10.13 Epigastric pain (principal); R63.4 Abnormal weight loss; D72.819 Decreased white blood cell count, unspecified; R74.01 Elevation of levels of liver transaminase levels; K21.9 Gastro-esophageal reflux disease without esophagitis
CPT/HCPCS: 99213

== ENCOUNTER 2024-07-27 09:47 | Outpatient (AMB) | payer MEDICARE, OTHER, SELFPAY ==
[2024-07-27 10:01] VITALS: BMI 18.2
--- NOTE | 2024-07-27 10:01 | A.OFFVIS_ITS ---
VS Expanded 07/27/24 10:01 Height 5 ft 8 in Weight 119 lb 11.376 oz BMI 18.2 Intake Visit Reasons: monitor weight Allergies cephalexin [From KEFLEX] Allergy (Severe, Verified 07/31/24 09:50) RASH Sulfa (Sulfonamide Antibiotics) [SULFA (SULFONAMIDE ANTIBIOTICS)] Allergy (Severe, Verified 07/31/24 09:50) INTSERNAL AND EXTERNAL RASH/INFECTION Iodinated Contrast Media [IV Dye, Iodine Containing] Allergy (Intermediate, Verified 07/31/24 09:50) HIVES,REDNESS + SWELLING sulfamethoxazole [From BACTRIM] Allergy (Intermediate, Verified 07/31/24 09:50) INTERNAL AND EXTERNAL RASH/ INFECTION stent Allergy (Uncoded 07/03/24 08:07) Vomiting Nutrition Presentation Details: Pt presents for MNT f/u Pt reports overall feeling ok Pt reports she wants to try different foods she has not had in a while and has pending family activities and celebrations BL eggs and Burmese toast or GF/dairy free waffles snack strawberries as snack (fruits ) banana lactose free cottage cheese fairlife 1-2 a day fish butternut squash roasted lactose free ice cream beverages: water elite fairlife , orange juice (diluted with water) BS Monitoring Most Recent Diabetes Results: Creatinine 0.64 mg/dL (0.5-1.4) 06/02/24 Blood Urea Nitrogen 24 mg/dL (9-16) H 06/02/24 Sodium 142 mmol/L (135-145) 06/02/24 Potassium 4.4 mmol/L (3.3-5.1) 06/02/24 Chloride 105 mmol/L (96-108) 06/02/24 Carbon Dioxide 30 mmol/L (22-29) H 06/02/24 Calcium 10.1 mg/dL (8.4-10.2) 06/02/24 AST 33 U/L (5-31) H 06/02/24 ALT 48 U/L (0-31) H 06/02/24 Total Protein 7.4 g/dL (6.5-8.0) 06/02/24 Albumin 4.2 g/dL (3.5-5.0) 06/02/24 [facility] Medical History (Reviewed 07/03/24 @ 08:08 by Preet Esteban [facility]) Transaminitis Chronic leukopenia Erosive esophagitis Kidney stone GERD (gastroesophageal reflux disease) High cholesterol HTN (hypertension) Surgical History H/O lithotripsy H/O esophagogastroduodenoscopy (07/09/23) Social History Alcohol intake: never Patient Tobacco Use Status: Never used Tobacco Advance Directives Date on File: 09/22/23 service: No Current occupational status: retired Current occupational exposures/hazards: No Assessment & Plan Assessment & Plan (1) Weight loss, unintentional: Code(s): R63.4 - Abnormal weight loss Category: Medical Plan: Have a combination of protein food, starches, fiber rich foods and hydration Caution with high salt foods wt : 51 (01/2024) , 52 kg (04/25), 55kg(05/27), 54 kg (07/25) est kcal needs (kg BW x 30) : 1600 est protein 1- 1.2 g/kg bw: 52- 62 est fluid needs as per 30 x kg BW: 1600 Patient Instructions: Keep hydrated, Try coconut water, cranberry juice, Try decaf daily tea Try one new food a week, ask for ingredients when eating out to limit foods with lactose /dairy Coding Level of Care Code Nutr Indiv Subseq (66754) Diagnoses Weight loss, unintentional R63.4 Time Spent (min) 20
== END 2024-07-27 10:44 | disposition home or self-care (01) ==
LOC: HO.ENCR 09:47
PROVIDERS: PCP Internal Medicine; Visit Provider Dietitian, Registered
DX: R63.4 Abnormal weight loss (principal)

== ENCOUNTER → 2024-07-27 09:47 | Outpatient (BNVA) | payer MEDICARE, OTHER, SELFPAY | PROVIDERS: PCP Internal Medicine; Visit Provider Dietitian, Registered | DX: R63.4 Abnormal weight loss (principal); Z71.3 Dietary counseling and surveillance | CPT/HCPCS: 97803 ==

== ENCOUNTER 2024-07-31 09:44 | Outpatient (AMB) | payer MEDICARE, OTHER, SELFPAY ==
--- NOTE | 2024-07-31 09:50 | MHC.OFFVIS ---
Vital Signs 07/31/24 09:52 07/31/24 10:45 Height 5 ft 8 in Weight 119 lb BMI 18.1 BP 169/81 H 159/74 H Blood Pressure Location Lt brachial Lt brachial Position Sitting Sitting Pulse 73 70 Pulse Oximetry (%) 99 Oxygen Delivery Method Room Air Intake Visit Reasons: f/u Intake Note: Patient followup for Chronic leukopenia and lab results. Patient cc: burping with some burning sensation and always tired. denies any other GI issues for today visit. Operating Systems Programmer Required: No Accompanied by: Self / Same As Patient Allergies cephalexin [From KEFLEX] Allergy (Severe, Verified 08/03/24 09:39) RASH Sulfa (Sulfonamide Antibiotics) [SULFA (SULFONAMIDE ANTIBIOTICS)] Allergy (Severe, Verified 08/03/24 09:39) INTSERNAL AND EXTERNAL RASH/INFECTION Iodinated Contrast Media [IV Dye, Iodine Containing] Allergy (Intermediate, Verified 08/03/24 09:39) HIVES,REDNESS + SWELLING sulfamethoxazole [From BACTRIM] Allergy (Intermediate, Verified 08/03/24 09:39) INTERNAL AND EXTERNAL RASH/ INFECTION stent Allergy (Uncoded 08/03/24 09:39) Vomiting HPI HPI f/u: Details: LAST VISIT: Epigastric pain Weight loss, unintentional Chronic leukopenia Transaminitis GERD (gastroesophageal reflux disease) Plan Patient will continue with her diet. Will change her PPI to Nexium as patient did better with that. Avoid dietary triggers and late night snacking. Staying upright for minimum 3 hours after meals discussed with patient. Patient is moving her bowels every other day. Recommended Benefiber with pre and probiotics. Transaminitis, will order labs to rule out any autoimmune disorders. Patient will follow-up in 4-5 weeks, sooner on as needed basis. She is agreeable to this plan and verbalizes understanding of instructions. She was given the opportunity to ask questions and all questions answered. ? Thank you for allowing me to participate in her care Orders Orders Alpha Fetoprotein Today R79.89 Smooth Muscle Antibody Today R79.89 Liver Fibrosis Pnl Today K76.0 Ferritin Today R74.8 IRON PROFILE Today D64.9 C Reactive Protein Today K58.9 Ceruloplasmin Today R79.89 Mitochondrial Antibody Today R79.89 Medications New esomeprazole magnesium (Nexium) 20 mg PO BID 180 caps 4RF TODAY'S VISIT Patient is here today for follow-up. Patient reports that she was doing better until about a week ago or so she started again belching. Taking Nexium twice a day before breakfast and before dinner and famotidine at bedtime. Denies any epigastric burning or pain. Denies any trouble swallowing. She still continues to follow with dietitian and tries to introduce food slowly. Denies any nausea or vomiting. Liver enzymes elevated and PCP decreased her statin. Labs will be rechecked again in a couple months. Patient reports that she is moving her bowels well without any issues. Denies melena, hematochezia. No weight loss since last visit [facility] Medical History Transaminitis Chronic leukopenia Erosive esophagitis Kidney stone GERD (gastroesophageal reflux disease) High cholesterol HTN (hypertension) Surgical History H/O lithotripsy H/O esophagogastroduodenoscopy (07/09/23) Social History Alcohol intake: never Patient Tobacco Use Status: Never used Tobacco Advance Directives Date on File: 09/22/23 service: No Current occupational status: retired Current occupational exposures/hazards: No Review of Systems Const Denies weight gain and Denies weight loss ENT Reports no additional complaints, Denies dysphagia and Denies odynophagia Card Reports no additional complaints Resp Reports no additional complaints GI Reports abdominal pain, Reports belching, Denies melena, Reports bloating, Denies change in bowel habits, Denies dysphagia, Denies excessive flatus, Denies dyspepsia, Reports heartburn (Occasional), Denies diarrhea, Denies loose stools, Denies nausea, Denies odynophagia and Denies vomiting Reports no additional complaints Musc Reports no additional complaints Neuro Reports no additional complaints Psych Reports no additional complaints Endo Reports no additional complaints Physical Exam Vital Signs: Last Vital Signs Pulse 70 07/31/24 10:45 BP 159/74 H 07/31/24 10:45 Pulse Ox 99 07/31/24 09:52 Oxygen Delivery Method Room Air 07/31/24 09:52 BMI result Body Mass Index 18.1 Const General: no acute distress Orientation/consciousness: patient oriented x3 Resp Effort & Inspection: normal respiratory effort, able to speak in complete sentences, no tracheal deviation and symmetric chest movement Auscultation: clear to auscultation bilaterally Cardio Rate: regular rate GI Inspection: Yes normal to inspection and No distended Palpation (GI): Soft to palpation, not firm, nontender and No hepatosplenomegaly present Auscultation: normal bowel sounds General: Yes no CVA tenderness Back/Spine/Pelvis Back: no CVA tenderness Skin General skin exam: elasticity normal, turgor normal and dry skin Neuro General: patient oriented x3 Psych Appearance: grossly normal Mental Status: mental status grossly normal Assessment & Plan Assessment & Plan (1) Epigastric pain: Code(s): R10.13 - Epigastric pain Category: Medical (2) Weight loss, unintentional: Code(s): R63.4 - Abnormal weight loss Category: Medical (3) Chronic leukopenia: Code(s): D72.819 - Decreased white blood cell count, unspecified Category: Medical (4) Transaminitis: Code(s): R74.01 - Elevation of levels of liver transaminase levels Category: Medical (5) GERD (gastroesophageal reflux disease): Code(s): K21.9 - Gastro-esophageal reflux disease without esophagitis Qualifiers: Esophagitis presence: with esophagitis Esophagitis bleeding: without hemorrhage Qualified Code(s): K21.00 - Gastro-esophageal reflux disease with esophagitis, without bleeding Plan Continue Nexium. Patient will take sucralfate twice a day. Patient prefers liquid form. Avoid dietary triggers. Continue appointments with dietitian. Patient will watch for food that causing triggers. Stressed the importance of avoiding eating late at night. Patient was encouraged to avoid sweets. Follow-up in 3 weeks, sooner on as needed basis. Patient is agreeable to this plan and verbalizes understanding of instructions. She was given the opportunity to ask questions and all questions answered. Thank you for allowing me to participate in her care Medications: Changed From sucralfate 10 mL PO BID 14 days 280 mL 0RF To sucralfate 10 mL PO BID 400 mL 2RF Discontinued famotidine Discontinued Reason: Doctor's Order 40 mg PO BEDTIME 90 tabs 3RF pantoprazole Discontinued Reason: Doctor's Order 20 mg PO BID 180 tabs 1RF Coding Level of Care Code Est Pt Level 3 (21789) Diagnoses Epigastric pain R10.13 Weight loss, unintentional R63.4 Chronic leukopenia D72.819 Transaminitis R74.01 Gastroesophageal reflux disease with esophagitis without hemorrhage K21.00 Esophagitis presence: with esophagitis Esophagitis bleeding: without hemorrhage Time Spent (min) 30 Comment 20 minutes spent with patient and additional 10 minutes spent reviewing her records
[2024-07-31 09:52] VITALS: BP 169/81; PULSE 73; O2SAT 99; BMI 18.1
[2024-07-31 10:45] VITALS: BP 159/74; PULSE 70
== END 2024-07-31 10:43 | disposition home or self-care (01) ==
LOC: HO.HGI 09:45
PROVIDERS: PCP Internal Medicine; Visit Provider Nurse Practitioner Family
DX: R10.13 Epigastric pain (principal); R63.4 Abnormal weight loss; D72.819 Decreased white blood cell count, unspecified; R74.01 Elevation of levels of liver transaminase levels; K21.00 Gastro-esophageal reflux disease with esophagitis, without bleeding
CPT/HCPCS: 99213

== ENCOUNTER → 2024-07-31 09:44 | Outpatient (BNVA) | payer MEDICARE, OTHER, SELFPAY | PROVIDERS: PCP Internal Medicine; Visit Provider Nurse Practitioner Family | DX: K21.00 Gastro-esophageal reflux disease with esophagitis, without bleeding (principal); D72.819 Decreased white blood cell count, unspecified; R10.13 Epigastric pain; R63.4 Abnormal weight loss; R74.01 Elevation of levels of liver transaminase levels | CPT/HCPCS: 99212 ==

== ENCOUNTER 2024-08-10 07:43 | Outpatient (REF) | payer MEDICARE, OTHER, SELFPAY ==
--- NOTE | ~2024-08-10 | US_ITS ---
EXAMINATION: US THYROID HISTORY: NEUTROPENIA TECHNIQUE: Real-time grayscale ultrasound imaging was performed and images were reviewed. COMPARISON: Comparison is made with the prior examination dated 07/13/2023. FINDINGS: SIZE: The right thyroid lobe measures 5.5 x 1.9 x 1.4 cm. The left thyroid lobe measures 5.3 x 2.3 x 1.8 cm. The isthmus measures 7 mm. FLOW: Flow to the gland is normal. ECHOGENICITY: The echotexture of the gland is heterogeneous. NODULES: Again seen are multiple bilateral thyroid nodules as described below: Nodule #: 1 Location: Isthmus measuring 1.3 x 0.6 x 1.0 cm (previously 1.4 x 0.5 x 1.0 cm). Shape: Wider than tall (0 points) Margins: Smooth (0 points) Echotexture: n/a Composition: Spongiform (0 points) Calcifications: n/a Total points: 0 TIRADS: TR1: Benign Nodule #: 2 Location: Lower pole of the right thyroid lobe measuring 1.0 x 1.0 x 0.9 cm (not seen previously). Shape: Round (0 points) Margins: Smooth (0 points) Echotexture: Isoechoic (1 point) Composition: Solid (2 points) Calcifications: None (0 points) Total points: 3 TIRADS: TR3: Mildly suspicious. Nodule #: 3 Location: Lower pole of the right thyroid lobe measuring 8 x 4 x 7 mm (previously 7 x 4 x 8 mm). Shape: Wider than tall (0 points) Margins: Smooth (0 points) Echotexture: n/a Composition: Spongiform (0 points) Calcifications: None (0 points) Total points: 0 TIRADS: TR1: Benign Nodule #: 4 Location: Lower pole of the left thyroid lobe measuring 1.4 x 0.9 x 1.4 cm (previously 1.5 x 0.9 x 1.1 cm). Shape: Wider than tall (0 points) Margins: Smooth (0 points) Echotexture: Isoechoic (1 point) Composition: Mostly solid (2 points) Calcifications: Punctate calcifications (3 points) Total points: 6 TIRADS: TR4: Moderately suspicious. US/US thyroid IMPRESSION: Moderately suspicious nodule at the lower pole of the left thyroid lobe. According to ACR TI-RADS guidelines, continue follow-up is recommended at this time. ACR TI-RADS Guidelines TR1 (0 points): Benign, No follow-up or biopsy required TR2 (2 points): Not Suspicious, No biopsy or follow up indicated TR3 (3 points): Mildly Suspicious, FNA if >= 2.5 cm, Follow if >= 1.5 cm TR4 (4-6 points): Moderately Suspicious, FNA if >= 1.5 cm, Follow if >= 1.0 cm TR5 (>=7 points): Highly Suspicious, FNA if >= 1.0 cm, Follow if >= 0.5 cm Electronically signed by: Heber Lucas MD 08/10/2024 09:20 AM EDT
--- OUTSIDE RECORDS SUMMARY | 2024-08-10 07:46 | XMS_ITS ---
Author Organization Alton Durham MD Address [address] [place] [phone] Care Team Providers Care Investigator Narcotics Name Role Phone Alton Durham Primary Care [...] Date Provider Diagnosis Alton Durham MD [address] [facility] [address] [place], [place] [phone] 07/11/2024 Alton Durham Elevated LFTs R79.89 ; Elevated cholesterol E78.00 and Atherosclerosis of both carotid arteries I65.23 Assessments Encounter Date Diagnosis (ICD Code) Assessment Notes Treatment Notes Treatment Clinical Notes Section Notes 07/11/2024 Elevated LFTs (ICD-10 - R79.89) contact Carm[place] [facility] to discuss/ is most likely related [...] Assessment Notes Elevated LFTs contact Carmen at [facility] to discuss/ is most likely related to the statin. could stop it and see if it returns to normal but don't think that is necessary Elevated cholesterol is not at goal but with elevated lft's will leave on present Atherosclerosis of both carotid arteries no change in 5 years Next Appt Details Provider Name:Alton wick, 08/31/2024 07:00:00 AM, [address], [address], [place], [phone], Provider Name:Alton Joiner ier, 09/05/2024 08:45:00 AM, [address], [address], [place], [phone], Provider Name:Alton Joiner ier, 03/09/2025 07:45:00 AM, [address] [facility] [address], [address], [place], [phone], Provider Name:Alton Joiner ier, 03/16/2025 08:00:00 AM, [address] [facility] [address], [address], [place], [phone], Progress Notes * Maureen WHITE JDOB: (84 yo F)Acc No.[id number]:07/11/2024 Progress Notes Patient:?Maureen WHITE J Provider:?Alton Durham MD :1940???Age:84 Y???Sex:Female D ate:07/11/2024 Address:[address] [place] [address] [id number] Subjective: * Chief Complaints: * ???1 month follow up appt * HPI: ???Symptom(s):?patient is? a 84 yo female here for one month follow up visit, had bad week last week burping and spitting up phlegm/. * ROS:?General/Constitutional:?Denies?Chills.?Denies?Fatigue.?Denies?Fever.?Denies?Headache.?ENT:?Patient denies?decreased sense of smell, any loss of taste, sore throat.?Denies?Sore throat.?Respiratory:?Denies?Cough.?Denies?Shortness of breath at rest.?Denies?Shortness of breath with exertion.?Gastrointestinal:?Denies?Diarrhea.?Musculoskeletal:?Patient denies?muscle aches.?Peripheral Vascular:?Patient denies?red and blue toes.? * Medical History:? * Surgical History:? * Hospitalization/Major Diagno stic Procedure:? * Medications:?TakingSucralfat e 1 GM/10ML Suspension 10 mL 1 hour [...] DRINK BY MOUTH DAILY DIRECTED Orally QOD Not-Taking/PRNZyrTEC 10 MG Tablet Chewable 1 tablet Orally [...] reviewed and reconciled with the patient * Allergies:?ivp dye: rashBact rim: hives over entire bodyKeflex: rashCipro: rash and myalgiayes[Allergies Verified] Objective: * Vitals:?Ht: 68, Wt: 118, BMI :17.94, BP:140/64, Wt-k.52. * Examination: ???General Examination: ?GENERAL APPEARANCE:?alert, well hydrated, in no distress.?HEAD:?normocephalic.?SKIN:?good turgor.?HEART:?regular rate and rhythm, no murmurs, rubs, gallops.?LUNGS:?no wheezes, rales, rhonchi, good air movement, clear to auscultation bilaterally.?EXTREMITIES:?abnormal with stasis dermatitis in lower extrem.? Assessment: * Assessment: 1.?Elevated LFTs - R79.89 (P rimary)???2.?Elevated cholesterol - E78.00???3.?Atherosclerosis of both carotid arteries - I65.23??? Plan: * Treatment: 2.?Elevated cholesterol? Notes: is not at goal but with elevated lft's will leave on present?? 3.?Atherosclerosis of both c arotid arteries? Notes: no change in 5 years?? * Procedure Codes:? * * Sign off status: Completed true * Provider:?Alton Durham MD Date:?0 07/11/2024 Generated for Nando baldwin/Douglas/Stormyitting on:?08/10/2024 07:45 AM EDT History and Physical Notes * HPI (History [...]
--- OUTSIDE RECORDS SUMMARY | 2024-08-10 07:46 | XMS_ITS ---
Author Organization Alton Durham MD Address [address] [place] [phone] Care Team Providers Care Animal Care Attendant Name Role Zahra Marva Alton Primary Care Provider REASON FOR VISIT REGARDING STATIN Encounters Encounter Location Date Provider Diagnosis Alton Durham MD [address] [facility] [address] [place] [phone] 07/13/2024 Alton Durham Plan Of Treatment Next Appt Details Provider Name:Alton wcik, 08/31/2024 07:00:00 AM, [address] [place] [address], Suite [facility], [place], [place], [phone], Provider Name:Alton wick, 09/05/2024 08:45:00 AM, [address] [place] [address], [place] [address], [place], [place], [phone], Provider Name:Alton wick, 03/09/2025 07:45:00 AM, [address], [address], [phone], Provider Name:Alton Joiner delano, 03/16/2025 08:00:00 AM, [address] [facility] [address], [address], [place], [place], [phone], Progress Notes * Maureen WHITE JDOB: (84 yo F)Acc No.[id number]:07/13/2024 Patient:?Maureen WHITE J :1940???Age:84 Y???Sex:Female Address:[address] [place] [address] [place] [address] * true * Date:? Generated for Nando baldwin/Douglas/eTransmitting on:?08/10/2024 07:45 AM EDT
--- OUTSIDE RECORDS SUMMARY | 2024-08-10 07:46 | XMS_ITS ---
Author Organization [facility] Address [address] [place] [address] Care Team Providers Care Instructional Technology Teacher Name Role Phone Alton Durham MD Primary Care Provider Bean Cortes Jr [phone] REASON FOR VISIT cancel appt Encounters Encounter Location Date Provider Diagnosis [facility] [address] [place] [address] 06/15/2023 Bean Holley Jr Plan Of Treatment No Information Progress Notes * ABEL WHITEANCEDOB:[birth year] (83 yo F)Acc No.[id number]:06/15/2023 Patient:?CHRISTOPHER ARINA :1940???Age:83 Y???Sex:Female Address:[facility] [place] [address] * true * Date:? Generated for Virai denny/Douglas/eTransmitting on:?08/10/2024 07:46 AM EDT
--- OUTSIDE RECORDS SUMMARY | 2024-08-10 07:47 | XMS_ITS | Patient Health Record ---
Author Organization [facility] Address [address] [place] [address] Care Team Providers Care Employment Agency Manager Name Role Phone Alton Durham MD Primary Care Provider Bean Cortes Jr Reason For Referral No Information Plan Of Treatment No Information Insurance Providers Payer Name Payer Address Payer Phone Subscriber Number Group Number Insured Name Patient Relationship to Insured Coverage Start Date Coverage End Date MEDICARE OF [place] [address] [place], [place] [id number] [phone] [id number] ARINA WHITE Self - patient is the insured [facility] [address] [address] [place] [address] [id number] ARINA WHITE Self - patient is the insured
--- OUTSIDE RECORDS SUMMARY | 2024-08-10 07:47 | XMS_ITS | Data Portability ---
Author Organization [place] - [facility], Allergy Address [address] [address] Care Team Providers Care Women Designer Name Role Phone GRAHAM HARGROVE Primary Care Provider Assessment No assessment recorded. Plan of Treatment Reminders Order Date Submit Date Provider Last Modified By Organization Details Last Modified Time Details Appointments Establish ed 15 2024 09:45A M YUDITH CLINE PA-C Not available Not available Not available Establish ed 10 2024 08:30A M TRACEY KAMINSKI MD Not available Not available Not available Lab [...] Recorded Time Impacted cerumen in left ear [id number] Active 2019 Impacted cerumen, left ear; Note: Date Diagnose d: 0 9:06 AM (H61.22) Not Available [facility] 4 02:59:24 Bilatera l diffuse otitis externa [id number] Completed 201912/03/2023 Diffuse otitis externa, bilatera l; Note: Changed from H60.312 to H60.313 ( 0 9:01 AM) , Date Diagnose d: 0 11:52 AM (H60.312 ) Not Available [facility] 4 02:59:21 Cellulit is of both external ears [id number] Completed 201912/03/2023 Cellulit is of external ear, bilatera l; Note: Date Diagnose d: 08/10/2019 9:02 AM (H60.13) Not Available [facility] 4 02:59:22 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 [id number] Active 2019 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 and infectio n; Note: Date Diagnose d: 0 8:43 AM (H61.322 ) Not Available [facility] 4 02:59:21 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 99581132081 Completed 201912/03/2023 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 and infectio n; Note: Date Diagnose d: 0 8:43 AM (H61.321 ) Not Available [facility] 4 02:59:22 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 65095896237 45744 Active 2019 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 and infectio n; Note: Date Diagnose d: 0 8:43 AM (H61.322 ) Not Available [facility] 4 02:59:21 Acute myringit is of right ear 04860451557 54502 Completed 201912/03/2023 Acute myringit is, right ear; Note: Date Diagnose d: 0 10:14 AM (H73.001 ) Not Available [facility] 4 02:59:21 Otitis externa of bilatera l ears 84049835483 02307 Completed 201912/03/2023 Other otitis externa, bilatera l; Note: Date Diagnose d: 09/07/2019 10:30 AM (H60.8X3 ) Not Available [facility] 4 02:59:24 Candidal otitis externa 59610263 Active 2022 Candidal otitis externa; Note: Date Diagnose d: 3 8:45 AM (B37.84) Candid al otitis externa; Note: Date Diagnose d: 0 9:31 AM (B37.84) ; Start Date : 05/18/19 20 Not Available [facility] 4 02:59:22 Sensorin eural hearing loss of bilatera l ears 505263115 Active 2020 Sensorin eural hearing loss, bilatera l; Note: Date Diagnose d: 1 9:19 AM (H90.3) Not Available [facility] 4 02:59:25 Impacted cerumen of bilatera l ears 61227006327 14411 Active 2019 Impacted cerumen, bilatera l; Note: Date Diagnose d: 0 9:31 AM (H61.23) Not Available [facility] 4 02:59:23 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 80191053128 Active 2019 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 Procedures Surgical History Date Name Laterality Status Provider Name and Address Organization Details Recorded Time 07/05/19 25 Cerumen removal with microscope left completed TRACEY KAMINSKI MD 100 [facility],[address], [address], [place] - [facility] 07/03/2024 08:42:44 04/04/20 24 Cerumen removal with microscope left completed TRACEY KAMINSKI MD 100 [facility],[address], [address], [place] - [facility] 04/03/2024 07:34:32 01/04/20 24 Cerumen removal with microscope left completed TRACEY KAMINSKI MD 100 [facility],[address], [address], [place] - [facility] 01/04/2024 09:06:38 10/19/19 24 Cerumen removal with microscope left completed TRACEY KAMINSKI MD 100 [facility],[address], [address], [place] - [facility] 10/19/2023 08:46:23 lithotripsy completed Latha Fu [place] - [facility] 10/19/2023 08:30:53 meatoplasty of external ear completed Latha Fu [facility] 10/19/2023 08:31:07 Imaging Results Imaging Date Name Status LastModified by Organiz ation Details LastModified Time 09/27/2018 imaging/diagno stic [...] Name and Address Organization Details Recorded Time 855644 cephalexi n monohydra te medicatio n other Not available Not available 09/14/2023 66356 8 RxNorm React ion: unkno wn, unspe cifie d;; Not Available [facility] 4 01:22:48 603734 Substance with sulfonami de structure and antibacte rial mechanism of action (substanc e) medicatio n other Not available Not available 09/14/2023 30402 8003 SNOMED React ion: unkno wn, unspe cifie d;; Not Available [facility] 4 01:22:48 224761 Iodinated contrast media (substanc e) medicatio n Not available Not available Not available 10/19/2023 51159 2003 SNOMED Latha monteiro [facility] 4 08:29:47 Medications Name Sig Start Date Stop Date Status Note LastModified by Organization Details LastModified Time atorvasta tin 40 mg tablet 02/08 completed Medicati on ID: [id number] D uration Value: 90 Brand Name: atorvast [...] mg tablet 04/04 completed Medicati on ID: [id number] B rand Name: senna Se nd Method: E-Prescr ibed Sub s Allowed: subs ELIZABETH Hernandez al Instruct ion: TAKE 2 TABLETS BY MOUTH AT BEDTIME FOR CONSTIPA TION Med icationG enericNa me: senna Not Available Not Available Not Available sucralfat e 100 mg/mL oral suspensio n 04/04 completed Medicati on ID: [id number] B rand Name: sucralfa te Send Method: E-Prescr ibed Sub s Allowed: subs ELIZABETH Hernandez al Instruct ion: TAKE 10 ML 1 [...] eye drops 10/18 completed Medicati on ID: [id number] D uration Value: 14 Prescri bed By Name: KELLI Barros nd Name: Ciloxan Send Method: E-Prescr ibed Sub s Allowed: subs ELIZABETH ochoa Instruct ion: 4 drops into affected ear BID X 14 days Med icationG enericNa me: Ciloxan Medicati on ID: [id number] D uration Value: 14 Prescri bed By Name: KELLI Barros nd Name: Ciloxan Send Method: E-Prescr ibed Sub s Allowed: subs ELIZABETH Hernandez al Instruct ion: 4 drops into affected ear BID X 14 days Med icationG enericNa me: Ciloxan Not Available Not Available Not Available ciproflox acin 500 mg tablet 1 tablet by mouth 08/02 completed Medicati on ID: [id number] D uration Value: 10 Prescri bed By Name: Flor cisse MD Brand Name: ciproflo xacin HCl Send Method: E-Prescr ibed Sub s Allowed: subs OK Medic ationGen ericName : ciproflo xacin HCl Not Available Not Available Not Available pantopraz ole 20 mg tablet,de layed release TAKE 1 TABLET BY MOUTH TWICE A DAY 07/04 completed Not Available Not Available Not Available Nexium 20 mg capsule,d elayed release Take 1 capsule twice a day by oral route. active Not Available Not Available No t Available potassium chloride 20 mEq oral packet TAKE 1 PACKET AND MIX IN LIQUID AND DRINK BY MOUTH DAILY DIRECTED active Not Available Not Available No t [...] layed release 04/04 completed Medicati on ID: [id number] B rand Name: pantopra zole Sen d Method: E-Prescr ibed Sub s Allowed: subs OK Medic ationGen ericName : pantopra zole Not Available Not Available Not Available clotrimaz ole-betam ethasone 1 %-0.05 % topical cream Apply 1 a small amount to affected area three times a day 10/18 completed Medicati on ID: [id number] D uration Value: 14 Prescri bed By Name: Musa Ramirez nd Name: clotrima zole-bet amethaso ne Send Method: E-Prescr ibed Sub s Allowed: subs OK Speci al Instruct ion: Apply with fingerti p to external ear Medi cationGe nericNam e: clotrima zole-bet amethaso ne Medic ation ID: [id number] D uration Value: 14 Prescri bed By Name: Musa Ramirez nd Name: clotrima zole-bet amethaso ne Send Method: E-Prescr ibed Sub s Allowed: subs OK Speci al Instruct ion: Apply with fingerti p to external ear Medi cationGe nericNam e: clotrima zole-bet reyo ne Not Available Not Available Not Available clotrimaz ole 1 % topical solution 10/18 completed Medicati on ID: [id number] D uration Value: 14 Brand Name: clotrima zole Sen d Method: E-Prescr ibed Sub s Allowed: subs OK Speci al Instruct ion: 4 drops to affected ear three times a day Medi cationGe nericNam e: clotrima zole Med ication ID: [id number] D uration Value: 14 Brand Name: clotrima [...] affected area 10/18 completed Medicati on ID: [id number] D uration Value: 14 Brand Name: mupiroci n Send Method: E-Prescr ibed Sub s Allowed: subs OK Medic ationGen ericName : mupiroci n Medica tion ID: [id number] D uration Value: 14 Brand Name: mupiroci n Send Method: E-Prescr ibed Sub s Allowed: subs OK Medic ationGen ericName : mupiroci n Not Available Not Available Not Available cefuroxim e axetil 500 mg tablet 1 tablet by mouth 10/18 completed Medicati on ID: [id number] D uration Value: 14 Brand Name: cefuroxi me axetil S end Method: E-Prescr ibed Sub s Allowed: subs OK Medic ationGen ericName : cefuroxi me axetil M eddyo n ID: [id number] D uration Value: 14 Brand Name: cefuroxi me axetil S end Method: E-Prescr ibed Sub s Allowed: subs OK Medic ationGen ericName : cefuroxi me axetil Not Available Not Available Not Available multivita min capsule 2019 active Medicati on ID: [id number] B rand Name: multivit anderson Sen d Method: E-Prescr ibed Sub s Allowed: subs OK Medic ationGen ericName : multivit anderson Not Available Not Available Not Available amoxicill in 875 mg-potass ium clavulana te 125 mg tablet TAKE 1 TABLET BY MOUTH TWICE A DAY FOR 7 DAYS 07/04 completed Not Available Not Available Not Available oxycodone 5 mg tablet 1 tablet by mouth 10/18 completed Medicati on ID: [id number] D uration Value: 3 Brand Name: oxycodon e Send Method: E-Prescr ibed Sub s Allowed: subs OK Medic ationGen ericName : oxycodon e Medica tion ID: [id number] D uration Value: 3 Brand Name: oxycodon e Send Method: E-Prescr ibed Sub s Allowed: subs OK Medic ationGen ericName : oxycodon e Not Available Not Available Not Available neomycin 3.5 mg/g-poly myxin B 10,000 unit/g-de xameth 0.1 % eye oint 10/25 completed Medicati on ID: [id number] P yady d By Name: Musa Ramirez nd Name: neomycin -polymyx in B-dexame th Send Method: E-Prescr ibed Sub s Allowed: subs OK Speci al Instruct ion: apply to both ear canals TID Medi cationGe nericNam e: neomycin -polymyx in B-dexame th Not Available Not Available Not Available Ciprodex 0.3 %-0.1 % ear drops,luiz pension 4 drop 10/18 completed Medicati on ID: [id number] D uration Value: 14 Brand Name: Ciprodex Send Method: E-Prescr ibed Sub s Allowed: subs OK Medic ationGen ericName : Ciprodex Medicat ion ID: [id number] D uration Value: 14 Brand Name: Ciprodex Send Method: E-Prescr ibed Sub s Allowed: subs OK Medic ationGen ericName : Ciprodex Not Available Not Available Not Available rosuvasta tin 40 mg tablet TAKE 1 TABLET BY MOUTH EVERY DAY 07/04 completed Not Available Not Available Not Available Klor-Con M20 mEq tablet,ex tended release TAKE 1 TABLET BY MOUTH EVERY DAY 04/04 completed Not Available Not Available Not Available Cortispor in 1 % topical ointment 10/18 completed Medicati on ID: [id number] D uration Value: 30 Brand Name: Cortispo rin Send Method: E-Prescr ibed Sub s Allowed: subs OK Speci al Instruct ion: apply to bith ears canals three times a day Medi cationGe nericNam e: Cortispo rin Medi cation ID: [id number] D uration Value: 30 Brand Name: Cortispo [...] Note [id number] TRACEY KAMINSKI MD [facility] [address] [address] 10/19/2023 08:21:18 10/21/2023 12:28:05 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 She is always welcome to come back to see me if she wants to proceed with left-sided meatoplast y. 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 She is always welcome to come back to see me if she wants to proceed with left-sided meatoplast y. Impacted c erumen in left ear 8646877763 874911 H61.22 Health Concerns Section Related Observation LastModified by Organization Detai ls LastModified Time None Recorded Concern Status LastModified by Organization Details LastModified Time None Recorded Advance Directives Directive None Recorded Payers Encounter Date Sequence Insurance Name Policy Number Policy Chi Covered Member ID Chi Member ID Guarantor Name 10/19/2023 1 [place] [employer] Maureen J Kurdziel [id number] Maureen Francisco Javier Kurdziel 10/19/2023 2 UNICARE - SENIOR SERVICES PLAN F (MEDICARE SUPPLEMENT) [id number] Maureen Francisco Javier Thomasdziel [id number] Maureen J Kurdziel 01/04/2024 1 [place] [employer]ATIONAL [employer]ERNMENT [employer] Maureen Francisco Javier Williamdziel [id number] 22 Maureen Francisco Javier Kurdziel 01/04/2024 2 [employer] - SENIOR SERVICES PLAN F (MEDICARE SUPPLEMENT) [id number] Maureen Francisco Javier Williamdziel [id number] Maureen Francisco Javier Kurdziel 04/04/2024 2 UNICARE - GIC INDEMNITY PLAN (MEDICARE SUPPLEMENT) [id number] Maureen Francisco Javier Williamdziel [id number] Maureen Francisco Javier Kurdziel 04/04/2024 1 MEDICARE B-[place]: [facility] GOVERNMENT SERVICES Maureen Francisco Javier Williamdziel [id number] 22 Maureen Francisco Javier Kurdziel 07/04/2024 2 UNICARE - GIC INDEMNITY PLAN (MEDICARE SUPPLEMENT) [id number] Maureen Francisco Javier Williamdziel [id number] Maureen Francisco Javier Kurdziel 07/04/2024 1 MEDICARE B-[place]: [facility] SERVICES Maureen Francisco Javier Thomasdziel [id number] 22 Maureen Francisco Javier Williamdzeyadel Notes Date Note Type Note Provider [...] accompanied by difficulty hearing. TRACEY KAMINSKI MD [address] [place] [address], [address], [facility] 10/19/2023 08:51:52 01/04/2024 text/html 83-year-old markus flores presents for cerumen removal. She has a history of bilateral external auditory canals stenosis. Meatoplasty done in 2020 on the right side with resulting resolution of the stenosis on the right. She reports the right ear is feeling great. Recent blockage sensation on the left accompanied by difficulty hearing. TRACEY KAMINSKI MD 100 [facility],[address], [address], [facility] 01/04/2024 09:08:08 04/04/2024 text/html 83-year-old femlolita flores presents for cerumen removal. She has a history of bilateral external auditory canals stenosis. Meatoplasty done in 2020 on the right side with resulting resolution of the stenosis on the right. She reports the right ear is feeling great. Recent blockage sensation on the left accompanied by difficulty hearing. TRACEY KAMINSKI MD 100 [facility],[address], [address], [facility] 04/04/2024 08:38:51 07/04/2024 text/html 83-year-old markus flores presents for cerumen removal. She has a history of bilateral external auditory canals stenosis. Meatoplasty done in 2020 on the right side with resulting resolution of the stenosis on the right. She reports the right ear is feeling great. Recent blockage sensation on the left accompanied by difficulty hearing. TRACEY KAMINSKI MD 100 [facility],[address], [address], [facility] 07/04/2024 08:48:40 OBGyn Episode No OBEpisode recorded.
--- OUTSIDE RECORDS SUMMARY | 2024-08-10 07:47 | XMS_ITS ---
Author Organization [facility] Address [address] [place] [address] Care Team Providers Care Tail Sawyer Name Role Phone Marva GUILLAUME, [place] Primary Care Provider Bean Cortes Jr REASON FOR VISIT BELCHING Encounters Encounter Location Date Provider Diagnosis [facility] [address] [place] [address] 09/16/2023 Bean Holley Jr Plan Of Treatment No Information Progress Notes * ABEL WHITEANCEDOB:[birth year] (84 yo F)Acc No.[id number]:09/16/2023 Progress Notes Patient:?ARINA WHITE Provider:?Bean Holley MD :1940???Age:83 Y???Sex:Female D ate:09/16/2023 Address:[address] [place] [address] [facility] Pcp:Alton Durham MD Subjective: * Chief Complaints: * ???1. BELCHING. * Medical History:? Objective: * Vitals:? Assessment: Plan: * Treatment: * * The named appointment provid er may or may not be the originator of this progress note, and it is not deemed complete until electronically signed by the appointment provider. Sign off status: Pending * Provider:?Bean Holley MD Date:?0 09/16/2023 Generated for Nando baldwin/[place]/eTransmitting on:?08/10/2024 07:46 AM EDT
--- OUTSIDE RECORDS SUMMARY | 2024-08-10 07:47 | XMS_ITS | Patient Health Record ---
Author Organization Alton Durham MD Address [address] [place] [phone] Care Team Providers Care Cfd Engineer Name Role Phone Alton Durham Primary Care Provider [phone] Allergies Allergen (clinical drug ingredient) Drug/Non Drug Allergy documented on EMR Reaction Allergy Type Onset Date Status Keflex rash Drug Allergy Active ciprofloxacin Cipro rash and myalgia Drug Allergy Active sulfamethoxazole / trimethoprim Bactrim hives over entire body Drug Allergy Active ivp dye (uncoded) rash Allergy Ac tive Results Component Value Reference Range Notes Complete Blood Count Auto Di ff Reviewed date:08/31/2023 12:37:41 PM Interpretation: Performing Lab:[facility], [address] [place] [phone] Notes/Report: White Blood Count 3.1 4.8-10.8 X10*3/uL [...] 0.0-0.2 /100WBC Neutrophils Absolute Auto 1.6 2.0-8.3 x10*3/uL Imm Gran Abs Auto 0.01 0.00-0.03 X10*3/uL Lymphocytes Absolute Auto 0.9 1.2-4.9 X10*3/uL Monocytes Absolute Auto 0.4 0.1-1.2 X10*3/uL Eosinophils Absolute Auto 0.2 0.0-0.4 X10*3/uL Basophils Absolute Auto 0.0 0.0-0.2 X10*3/uL NRBC Abs Auto 0.000 0.0-0.012 X10*3/uL Liver Panel Reviewed date:08/31/2023 12:36:40 PM Interpretation: Performing Lab:[address] [phone] Notes/Report: Bilirubin Total 0.7 0.0-1.0 mg/dL Bilirubin Direct 0.3 0.0-0.5 mg/dL Aspartate Amino Transferase 28 5-31 U/L Alanine Aminotransferase 25 0-31 U/L Total Protein 6.6 6.5-8.0 g/dL Albumin Level 4.2 3.5-5.0 g/dL Alkaline Phosphatase 70 39-117 U/L Lipid Panel with Reflex Reviewed date:08/31/2023 12:36:13 PM Interpretation: Performing Lab:[address] [address] Notes/Report: Triglycerides 67 <150 mg/dL Desirable Triglyceride: [...] low results in patients with liver disease. Potassium Reviewed date:10/21/2023 05:06:20 PM Interpretation: Performing Lab:[address] [address] Notes/Report: Potassium 2.8 3.3-5.1 mmol/L Critical value for test(s): POTS Results called to and read back by: YOSELYN Cotton Person calling:SHAMA Date: 10/21/23 Time: 1124 Potassium Reviewed date:10/26/2023 08:42:40 AM Interpretation: Performing Lab:[facility], [address] [place] [phone] Notes/Report: Potassium 3.4 3.3-5.1 mmol/L Potassium Reviewed date:11/01/2023 12:24:52 PM Interpretation: Performing Lab:[facility], [address] [place] [phone] Notes/Report: Potassium 3.7 3.3-5.1 mmol/L Potassium Reviewed date:11/25/2023 12:21:33 PM Interpretation: Performing Lab:[address] [address] Notes/Report: Potassium 3.9 3.3-5.1 mmol/L Potassium Reviewed date:01/14/2024 09:08:52 AM Interpretation: Performing Lab:[address] [address] Notes/Report: Potassium 3.6 3.3-5.1 mmol/L Slight Hemoly sis Potassium Reviewed date:02/03/2024 12:32:20 PM Interpretation: Performing Lab:[facility], [address] [place] [phone] Notes/Report: Potassium 4.2 3.3-5.1 mmol/L Slight Hemoly sis Complete Blood Count Auto Di ff Reviewed date:03/14/2024 09:33:06 AM Interpretation:see back 03-14-2024 Performing Lab:[facility], [address] [place] [phone] Notes/Report: White Blood Count 2.5 4.8-10.8 X10*3/uL [...] 0.0-0.2 /100WBC Neutrophils Absolute Auto 1.3 2.0-8.3 x10*3/uL Imm Gran Abs Auto 0.00 0.00-0.03 X10*3/uL Lymphocytes Absolute Auto 0.8 1.2-4.9 X10*3/uL Monocytes Absolute Auto 0.3 0.1-1.2 X10*3/uL Eosinophils Absolute Auto 0.1 0.0-0.4 X10*3/uL Basophils Absolute Auto 0.0 0.0-0.2 X10*3/uL NRBC Abs Auto 0.000 0.0-0.012 X10*3/uL Comprehensive [place]. Panel Fa st Reviewed date:03/07/2024 04:52:00 PM Interpretation: Performing Lab:[facility], [address] [place] [phone] Notes/Report: Sodium 141 135-145 mmol/L Potassium 3.9 [...] Panel Reviewed date:03/07/2024 04:52:17 PM Interpretation: Performing Lab:[facility], [address] [place] [phone] Notes/Report: Triglycerides 63 <150 mg/dL Desirable Triglyceride: [...] t Reviewed date:03/07/2024 04:51:31 PM Interpretation: Performing Lab:[facility], [address] [place] [phone] Notes/Report: Urine, Clean Catch Color Urine Yellow Appearance Urine Clear PH 6.5 5.0-9.0 Glucose Urine UA Negative Negative mg/dL Urine Blood Negative Negative Specific [place] - Urine 1.020 1.005-1.025 Urine Protein 30 (1+) Neg-Trace mg/dL Urine Ketones Negative Negative mg/dL Nitrite Urine Negative Negative Leukocyte Esterase Urine Trace Negative RBC Urine 0-2 0-2 /HPF WBC Urine 0-5 0-5 /HPF Squamous Epithelial Cell Urine 0-2 0-2 /HPF Bacteria Urine None Seen None Seen Hyaline Casts Urine 0-2 0-2 /LPF Complete Blood Count Auto Di ff Reviewed date:04/04/2024 12:44:09 PM Interpretation: Performing Lab:[facility], [address] [place] [phone] Notes/Report: White Blood Count 2.7 4.8-10.8 X10*3/uL [...] 0.0-0.2 /100WBC Neutrophils Absolute Auto 1.5 2.0-8.3 x10*3/uL Imm Gran Abs Auto 0.01 0.00-0.03 X10*3/uL Lymphocytes Absolute Auto 0.7 1.2-4.9 X10*3/uL Monocytes Absolute Auto 0.4 0.1-1.2 X10*3/uL Eosinophils Absolute Auto 0.1 0.0-0.4 X10*3/uL Basophils Absolute Auto 0.0 0.0-0.2 X10*3/uL NRBC Abs Auto 0.000 0.0-0.012 X10*3/uL Potassium Reviewed date:04/04/2024 12:47:19 PM Interpretation: Performing Lab:[address] [address] Notes/Report: Potassium 3.9 3.3-5.1 mmol/L Complete Blood Count Auto Di ff Reviewed date:05/09/2024 12:31:03 PM Interpretation: Performing Lab:[facility], [address] [place] [phone] Notes/Report: White Blood Count 2.8 4.8-10.8 X10*3/uL [...] 0.0-0.2 /100WBC Neutrophils Absolute Auto 1.5 2.0-8.3 x10*3/uL Imm Gran Abs Auto 0.00 0.00-0.03 X10*3/uL Lymphocytes Absolute Auto 0.8 1.2-4.9 X10*3/uL Monocytes Absolute Auto 0.4 0.1-1.2 X10*3/uL Eosinophils Absolute Auto 0.1 0.0-0.4 X10*3/uL Basophils Absolute Auto 0.0 0.0-0.2 X10*3/uL NRBC Abs Auto 0.000 0.0-0.012 X10*3/uL Potassium Reviewed date:05/09/2024 12:25:38 PM Interpretation: Performing Lab:[facility], [address] [place] [phone] Notes/Report: Potassium 3.9 3.3-5.1 mmol/L Potassium Reviewed date:11/11/2023 04:20:21 PM Interpretation: Performing Lab:[facility], [address] [place] [phone] Notes/Report: Potassium 4.4 3.3-5.1 mmol/L Potassium Reviewed date:12/13/2023 12:39:37 PM Interpretation: Performing Lab:[facility], [address] [place] [phone] Notes/Report: Potassium 4.0 3.3-5.1 mmol/L Occult Blood, Stool, Guaiac Reviewed date:03/14/2024 11:14:45 AM Interpretation:Negative Performing Lab: Notes/Report: Negative Occult Blood, Stool, Guaiac Neg Hold Gold Reviewed date:08/31/2023 11:16:55 AM Interpretation: Performing Lab:[facility], [address] [place] [phone] Notes/Report: Hold Gold See Note Specimen held untested for 24 hours; Call to request Chemistry testing. CT chest wo con Reviewed date:10/12/2023 01:11:48 PM Interpretation: Performing Lab: Notes/Report: [address] [address] [address] Scan Report Signed Patient: Maureen Foreman MR#: [id number] : 1940 Acct:[id number] Age/Sex: 83 / F ADM Date: 09/16/23 Loc: HO.CT Attending Dr: Alton Durham MD Ordering Physician: Alton Durham MD Date of Service: 09/16/23 Procedure(s): CT chest wo IV con Accession Number(s): [id number] cc: Alton Durham MD EXAMINATION: CT CHEST [...] FINDINGS: LUNGS: Biapical pleural-parenchymal scarring is present. [id number] emphysematous changes are seen (for example 3 [...] x 0.7 x 0.6 cm (5:402 and lfores images). In 2004, this was present and [...] in OV> 10/12/23 0935 DD/ 0837 TD/TT: Truck Body Repairer: [place] [address] CT Scan Report Signed Patient: Maureen Foreman MR#: [id number] : 1940 Acct:[id number] Age/Sex: 83 / F ADM Date: 09/16/23 Loc: HO.CT Attending Dr: Alton Durham MD Ordering Physician: Alton Durham MD Date of Service: 09/16/23 Procedure(s): CT shaunna st wo IV con Accession Number(s): [id number] cc: Alton Durham MD EXAMINATION: CT CHEST WITHOUT CONTRAST CLINICAL INFORMATION: Lung nodule. COMPARISON: CT chest 06/05/2014: Increased in the size of a right lobe pulmonary nodule measuring abo ut 5.1 x 7.8 x 8.2 mm. Differential diagnosis would include neoplasm patty luiz mucoid impaction. One might consider some aggressive [...] performed using dose optimization techniques as appropriate, various ly including the following: *Automated exposure control *Adjustment of mA and/or kV according to patient size (this includes techniques or standardized protocols for targeted exams where dose is matched to indication/reason for exam; i.e. extremities or head) *Use of iterative reconstruction technique DLP: 113 mGy-cm FINDINGS: LUNGS: Biapical pleural-parenchymal scarring is present. Ecxc-jt-[id number] emphysematous change s are seen (for example 3 mm lingula 5:256). Flores images of most of th leann areas have been saved. There is bronchial thickening and multiple areas of mucoid impaction simulating pulmonary nodules (for example right middle lobe 5:204). In the anterior basa l segment of the right lower lobe there is a pleural-based ovoid opacity which measures 1.4 x 0.7 x 0.6 cm (5:402 and flores images). In 2004, this was present and smaller measuring 1.0 x 0.7 x 0.6 cm by my measurements (prior 4:26). Given the slow progression of disea se in just under 20 years, the benign nature of this is reinforced likely secondary to mucoid impaction. There is an addition al new similar-appearing opacity next to this measuring 1.2 x 0.6 x 0.3 cm (5:403 and flores images) which is also likely due to mucoid impaction as well. MEDIASTINUM: The mediastinum is normal. CORONARY ARTERY CALCIFICATION: Mild. PLEURA: There is no pleural effusion. No pleural mass or thickening. AXILLA: No lymphadenopathy. UPPER ABDOMEN: Hepat ic and splenic granulomas are present. OSSEOUS STRUCTURES: Degenerative changes are present throughout the spine. CT/CT chest wo IV con IMPRESSION: 1. There is a 1.4 cm pleural-based opacity in the right lower lobe which has increased in size since 2004. Given the slow progression of disease in just unde r 20 years, the benign nature of this is reinforced, likely secondary to mucoid impaction. 2. There is an additional new opacity in the right lower lobe which is also likely due to mucoid impaction. 3. A finding concern ing for malignancy is not present. Fleischner guideline s were followed. Dictated By: Vinny Arango MD Signed By: <Electronically signed by Vinny Arango MD in OV> 10/12/23 0935 DD/ 0837 TD/TT: Truck Body Repairer: JOY Complete Blood Count Auto Di ff Reviewed date:09/20/2023 05:22:25 PM Interpretation: Performing Lab:[facility], [address] [place] [phone] Notes/Report: White Blood Count 3.9 4.8-10.8 X10*3/uL [...] 0.0-0.2 /100WBC Neutrophils Absolute Auto 2.6 2.0-8.3 x10*3/uL Imm Gran Abs Auto 0.01 0.00-0.03 X10*3/uL Lymphocytes Absolute Auto 0.7 1.2-4.9 X10*3/uL Monocytes Absolute Auto 0.5 0.1-1.2 X10*3/uL Eosinophils Absolute Auto 0.1 0.0-0.4 X10*3/uL Basophils Absolute Auto 0.1 0.0-0.2 X10*3/uL NRBC Abs Auto 0.000 0.0-0.012 X10*3/uL Liver Panel Reviewed date:09/18/2023 06:27:11 PM Interpretation: Performing Lab:[facility], [address] [place] [phone] Notes/Report: Bilirubin Total 0.8 0.0-1.0 mg/dL Bilirubin Direct 0.3 0.0-0.5 mg/dL Aspartate Amino Transferase 31 5-31 U/L Alanine Aminotransferase 30 0-31 U/L Total Protein 7.0 6.5-8.0 g/dL Albumin Level 4.5 3.5-5.0 g/dL Alkaline Phosphatase 84 39-117 U/L Basic Metabolic Panel Reviewed date:09/18/2023 06:29:52 PM Interpretation: Performing Lab:[facility], [address] [place] [phone] Notes/Report: Sodium 145 135-145 mmol/L Potassium 3.0 [...] Lipase Reviewed date:09/18/2023 06:27:01 PM Interpretation: Performing Lab:[facility], [address] [place] [phone] Notes/Report: Lipase 22 8-78 U/L Potassium Reviewed date:09/23/2023 01:05:42 PM Interpretation: Performing Lab:[facility], [address] [place] [address] [place] [address] Notes/Report: Potassium 3.0 3.3-5.1 mmol/L Slight Hemoly sis Pathology Reviewed date:09/24/2023 10:02:51 AM Interpretation: Performing Lab:[facility], [address] [place] [address] Notes/Report: --- Name: Maureen Foreman Age/Sex: 83/F : 1940 Unit#: [id number] Attend Dr: Renay Hudson MD Re09/22/23 Status : [facility] Location: [facility] Disch: --- SPEC : [id number] RECD : 09/22/23-1223 STATUS: DEREK LIMA NUM: [id number] ASHLI: 09/22/23-1211 [facility] DR: Renay Hudson MD ENTERED: 09/22/23-12 31 SP TYPE: Surgical OTHR DR: Alton Durham MD ORDERED: HE Stain/15 , Gross Micro L4/5, IHC/2, Special st. 2/3, H. pylori/2, AB/PAS/3 Diagnosis A. Stomach, biopsy: Gastric body mucosa with focal minimal chronic inactive inflammation; negati ve for H pylori, intestinal metaplasia and dysplasia. B. Esophagus, distal, papilloma , biopsy: Squamous papilloma. C. Gastroesophageal junction, biopsy: Squamous mucosa with hyperplasia and spongiosis, and columnar mucosa with moderate chronic active inflammation, compatible with reflux esophagitis; negativ e for intestinal metaplasia and dysplasia. D. Esophagus, distal , biopsy: Squamous mucosa with no specific change; no columnar mucosa present. E. Esophagus, proxim al, biopsy: Squamous mucosa with no specific change; no columnar mucosa present. Clinical History Pre-Op Dx: Gastro-esophageal reflux disease without esophagitis Post-Op Dx: Papillom a, Schatzki's ring, decreased motility Microscopic Description Microscopic sections reviewed. Immunostain for H. pylori on A is negative. AB/PAS on A and C are negative for intestinal metaplasia. Controls stain appropriately. Material Received A. Stomach bx B. Papilloma bx C. GE junction bx D. Distal esophagus bx E. Proximal esophagu s bx Gross Description Received in 5 parts. A. Received in forma daniel labeled ?stomach biopsy? are 3 fragments of translucent paige white tissue ranging from 0.1-0.2 cm in greatest dimension which are wrapped in lens paper and entirely submitted f or microscopic examination, 3 pieces in cassette A. B. Received in forma daniel labeled ?papilloma biopsy? is a rounded fragment of translucent pink CONTINUED ON NEXT PAGE --- Name: Maureen Foreman Age/Sex: 83/F : 1940 Unit#: [id number] Attend Dr: Renay Hudson MD Re09/22/23 Status : [facility] Location: [facility] Disch: --- SPEC : [id number] RECD : 09/22/23-3 STATUS: DEREK LIMA NUM: [id number] ASHLI: 09/22/23-1211 [facility] DR: Renay Hudson MD ENTERED: 09/22/23- 31 SP TYPE: Surgical OTHR DR: Alton Durham MD ORDERED: HE Stain/15 , Gross Micro L4/5, IHC/2, Special st. 2/3, H. pylori/2, AB/PAS/3 Gross Description (Continued) white soft tissue measuring 0.4 cm in diameter which is wrapped in lens paper and entirely submitted for microscopic examination, 1 piece in cassette B. C. Received in forma daniel labeled ?GE junction biopsy? are 2 fragments of pink white soft tissue each measurin g 0.3 cm in greatest dimension which are wrapped in lens paper and entirely submitted f or microscopic examination, 2 pieces in cassette C. D. Received in forma daniel labeled ?distal esophagus biopsy? are 2 fragments of translucent white soft tissue measuring 0.3 and 0.4 cm in greatest dimension which are wrapped in lens paper and entirely submitted for microscopic examination, 2 pieces in cassette D. E. Received in forma daniel labeled ?proximal esophagus biopsy? is a fragment of translucent white soft tissue measuring 0.4 cm in greatest dimension which is wrapped in lens paper and entirely submitted f or microscopic examination, 1 piece in cassette E. [facility] Special studies orde red and performed: Immunostain for H. pylori on A1; AB/PAS stains on A1 and C1. Copies To: Alton Durham MD [address] [place] [address] [place] [address] Renay Hudson MD [address] [place] [address] [place] [address] --- Signed (signature on file) Graciela Trevor 09/24/23 0947 --- END OF REPORT Complete Blood Count Auto Di ff Reviewed date:10/05/2023 10:02:29 AM Interpretation: Performing Lab:[facility], [address] [place] [phone] Notes/Report: White Blood Count 3.1 4.8-10.8 X10*3/uL [...] 0.0-0.2 /100WBC Neutrophils Absolute Auto 2.0 2.0-8.3 x10*3/uL Imm Gran Abs Auto 0.01 0.00-0.03 X10*3/uL Lymphocytes Absolute Auto 0.6 1.2-4.9 X10*3/uL Monocytes Absolute Auto 0.4 0.1-1.2 X10*3/uL Eosinophils Absolute Auto 0.1 0.0-0.4 X10*3/uL Basophils Absolute Auto 0.0 0.0-0.2 X10*3/uL NRBC [...] 0.0-0.2 /100WBC Neutrophils Absolute Auto 2.0 2.0-8.3 x10*3/uL Imm Gran Abs Auto 0.01 0.00-0.03 X10*3/uL Lymphocytes Absolute Auto 0.6 1.2-4.9 X10*3/uL Monocytes Absolute Auto 0.4 0.1-1.2 X10*3/uL Eosinophils Absolute Auto 0.1 0.0-0.4 X10*3/uL Basophils Absolute Auto 0.0 0.0-0.2 X10*3/uL NRBC Abs Auto 0.000 0.0-0.012 X10*3/uL C ORRECTED REPORT C ORRECTED REPORT Liver Panel Reviewed date:10/05/2023 09:55:46 AM Interpretation: Performing Lab:[facility], [address] [place] [phone] Notes/Report: Bilirubin Total 0.8 0.0-1.0 mg/dL Bilirubin Direct 0.3 0.0-0.5 mg/dL Aspartate Amino Transferase 34 5-31 U/L Alanine Aminotransferase 31 0-31 U/L Total Protein 7.1 6.5-8.0 g/dL Albumin Level 4.5 3.5-5.0 g/dL Alkaline Phosphatase 77 39-117 U/L Basic Metabolic Panel Reviewed date:10/07/2023 12:46:16 PM Interpretation: Performing Lab:[facility], [address] [place] [phone] Notes/Report: Sodium 147 135-145 mmol/L Potassium 2.9 [...] Magnesium Reviewed date:10/05/2023 09:55:24 AM Interpretation: Performing Lab:[facility], [address] [place] [phone] Notes/Report: Magnesium 1.9 1.6-2.6 mg/dL SLIDE REVIEW Reviewed date:10/05/2023 11:59:08 AM Interpretation: Performing Lab:[facility], [address] [place] [phone] Notes/Report: SLIDE REVIEW VERIFIED XR chest 2V Reviewed date:10/05/2023 09:57:27 AM Interpretation: Performing Lab: Notes/Report: [address] [address] XRay Report Signed Patient: Maureen Foreman MR#: [id number] : 1940 Acct:[id number] Age/Sex: 83 / F ADM Date: 10/05/23 Loc: .ED Attending Dr: Ordering Physician: Ekaterina Leonardo DO Date of Service: 10/05/23 Procedure(s): XR chest 2V Accession Number(s): [id number] cc: Alton Durham MD; Ekaterina Leonardo DO [...] MD in OV> 10/05/23924 DD/ 0853 TD/TT: Truck Body Repairer: JV [address] [address] XRay Report Signed Patient: Maureen Foreman MR#: [id number] : 1940 Acct:[id number] Age/Sex: 83 / F ADM Date: 10/05/23 Loc: HO.ED Attending Dr: Ordering Physician: Ekaterina Leonardo DO Date of Service: 10/05/23 Procedure(s): XR shaunna st 2V Accession Number(s): [id number] cc: Alton Durham MD; Ekaterina Leonardo DO EXAMINATION: XR CHEST CLINICAL INFORMATION: Cough. Recent surgery. COMPARISON: 2 views of the chest dated 04/21/2022. TECHNIQUE: 2 views of the chest were obtained. FINDINGS: EKG leads overlie th e chest. The cardiomediastinal silhouette is within normal limits in size. Lungs bilaterally ar e symmetrically hyperinflated and hyperlucent, consistent with emphysematous obstructive lung disease. There is slight indistinctness of th e CP angles, likely related to pleural thickening or scarring. No significant pleural effusion noted. No focal consolidation or pneumothorax is seen. Diffuse osteopenia w ith mild dorsal kyphosis and mild convex left thoracolumbar scoliosis. 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 * No focal pneumonia. Dictated By: Kamilla Barber MD Signed By: <Electronically signed by Kamilla Barber MD in OV> 10/05/23 0925 DD/ 0853 TD/TT: Truck Body Repairer: JV Potassium Reviewed date:10/14/2023 06:10:12 AM Interpretation: Performing Lab:[facility], [address] [place] [phone] Notes/Report: Potassium 3.1 3.3-5.1 mmol/L FL barium swallow Reviewed date:10/22/2023 12:35:07 PM Interpretation: Performing Lab: Notes/Report: [address] [address] Fluoroscopy Report Signed Patient: Maureen Foreman MR#: [id number] : 1940 Acct:[id number] Age/Sex: 83 / F ADM Date: 10/12/23 Loc: HO.XRAY Attending Dr: Julee Asher DOUGH PANNER- Ordering Physician: Julee Asher Date of Service: 10/12/23 Procedure(s): FL barium swallow Accession Number(s): [id number] cc: Alton Durham MD; Julee Asher EXAMINATION: [...] MD in OV> 10/21/231756 DD/ 7 TD/TT: Truck Body Repairer: [place] [address] Fluoroscopy Report Signed Patient: Maureen Foreman MR#: [id number] : 1940 Acct:[id number] Age/Sex: 83 / F ADM Date: 10/12/23 Loc: [facility] Attending Dr: Julee ANAYA Ordering Physician: Julee Asher Date of Service: 10/12/23 Procedure(s): FL bar ium swallow Accession Number(s): [id number] cc: Alton Durham MD; Julee Asher EXAMINATION: XR FLUOROSCOPY UPPER GI WITH AIR CLINICAL INFORMATION: Dysphagia. Reflux COMPARISON: Upper GI July 2023 TECHNIQUE: Fluoroscopic air contrast upper GI examination was performed utilizing standard techniques with thin and thick barium and effervescent granules. Numerous s pot images were obtained. FINDINGS: Moderate spondylosis of the cervical spine present most notably involving C4-C7. A ventral bridging osteophyte at C5-C6 again minimally indents upon the mos t superior esophagus. Lateral cine images of the oropharynx and hypopharynx demonstrate normal swallow mechanism with normal epiglottic inversion and soft palate elevation. No tracheal penetration, glottic or subglottic aspiration identifie d. No nasopharyngeal reflux present. Hypopharyngeal structures appear normal without evidence of mass or diverticulum. 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 Dual and single contrast images of the esophagus demonstrate a normal caliber and contour. The upper and mid esophageal mucosa still has a granular appearance with multiple foci of contrast pooling suggesting superficial erosions . No evidence of stricture, mass identified. There is persistent to and fro motion of the barium column with nonpropulsive tertiary contraction s noted throughout the esophagus. The GE junction appears unremarkable with no narrowing compared to prior examination. No evidence of hiatu s hernia identified. No significant gastroesophageal ref lux was seen during the course of the examination and on reflux views. Dual contrast and single contrast images of the stomach demonstrated a normal contour. The gastric mucosal folds have a thickened appearance representing gastrit is. There are multiple tiny areas of contrast pooling suggestive o f small superficial ulcerations. No masses are seen. Contrast freel y passed into the gastric antrum and duodenal bulb without delay. Single and air-contr ast images of the duodenal bulb demonstrate no abnormality. The duodenal sweep has a normal appearance, course, and mucosal fold appearance. The imaged proximal jejunum has a normal fold pattern and caliber. FLUOROSCOPY TIME: 3 minutes 49 seconds Number of Spot Image s: 9 Number of Cine: 12 DOSE AREA PRODUCT: 1000 uGy-m2 (microgray-meter squared) FL/FL barium swallow IMPRESSION: 1. Mild to moderate cricopharyngeal achalasia 2. The upper and mid esophageal mucosa continues to have a granular appearance with multiple foci of contrast pooling suggestive of erosive esophagitis. 3. Persistent esophageal dysmotility. 4. Interval improvem ent of the GE junction without evidence of narrowing. 5. Thickened appeara nce of the gastric rugal folds with multiple tiny foci of contrast pooling suggesting erosive gastritis. This procedure was performed by Frank Zamora PA-C, and supervised by Dr. Huffman Dictated By: Frank Zamora Signed By: <Electronically signed by Frank Zamora in OV> 10/21/231753 <Electronically sign ed by Roberto Huffman MD in OV> 10/21/231756 DD/ TD/TT: Truck Body Repairer: ALISA gastric emptying study Reviewed date:10/18/2023 05:04:10 PM Interpretation: Performing Lab: Notes/Report: [address] [address] Nuclear Medicine Report Signed Patient: Maureen Foreman MR#: [id number] : 1940 Acct:[id number] Age/Sex: 83 / F ADM Date: 10/18/23 Loc: [facility] Attending Dr: Julee Asher [facility]- Ordering Physician: Julee AsherPRISA Date of Service: 10/18/23 Procedure(s): NM gastric emptying study Accession Number(s): [id number] cc: Alton Durham MD; Julee Asher [facility]-DG EXAMINATION: NM RADIONUCLIDE SOLID FOOD GASTRIC EMPTYING 4-HOUR STUDY [...] in OV> 10/18/23 1440 DD/ 1215 TD/TT: Truck Body Repairer: KRISTIE [place] [address] Nuclear Medicine Report Signed Patient: Maureen Foreman MR#: [id number] : 1940 Acct:[id number] Age/Sex: 83 / F ADM Date: 10/18/23 Loc: B[facility] Attending Dr: Julee LINTON-DG Ordering Physician: Julee Asher Date of Service: 10/18/23 Procedure(s): NM gastric emptying study Accession Number(s): [id number] cc: Alton Durham MD; Julee Asher EXAMINATION: NM RADIONUCLIDE MARIELENA D FOOD GASTRIC EMPTYING 4-HOUR STUDY CLINICAL INFORMATION: Early satiety. COMPARISON: None TECHNIQUE: A standard meal consisting of 4 oz of Egg Beaters brand tagged with 850 microcuries Tc-99m Sulfur Colloid, 8 oz water and 1 1/4 slices of toast with jelly was administered orally to the patient. Images were obtained using a dual head ga mma camera in the anterior and posterior projections [...] the stomach immediately post ingestion. As the st udy progresses, there is good clearance of activity from the stomach and visualization of progressively increasing small bowel activity. By t he end of the study, there is almost no retention noted in the stomach . Retention in the stomach at each time interval was: 1 hour 57% (normal 37%-90%) 2 hours 45% (normal 30%-60%) 3 hours 28% 4 hours 5% (normal 0%-10%) NM/NM gastric emptying study IMPRESSION: Normal 4-hour solid food gastric emptying study. For solid meal, rapi d gastric emptying is less than 30% at 60 minutes. Delayed gastric emptying criteria is more than 60% remaining at 120 minutes or more than 10% at 240 minutes. The 4-hour value is the best discriminator of a normal or abnormal result). Gastric emptying cintia dy grading per JNDE Consensus Recommendations in 2008 (https://tech.[employer]Avocado Entertainmenta ls.org/content/36/44) Grade 1 (mild retention): 11-20% at 4h Grade 2 (moderate retention): 21-35% at 4h Grade 3 (severe retention): 36-50% at 4h Grade 4 (very severe retention): >50% retention at 4h Dictated By: Mary Wiggins MD Signed By: <Electronically signed by Mary Wiggins MD in OV> 10/18/23 1440 DD/ 1215 TD/TT: Truck Body Repairer: KRISTIE PARKS KUB Reviewed date:01/09/2024 12:30:30 PM Interpretation: Performing Lab: Notes/Report: [address] [address] XRay Report Signed Patient: Maureen Foreman MR#: [id number] : 1940 Acct:[id number] Age/Sex: 83 / F ADM Date: 12/08/23 Loc: [facility] Attending Dr: Som Mckeon MD Ordering Physician: Som Mckeon MD Date of Service: 12/08/23 Procedure(s): XR KUB Accession Number(s): [id number] cc: Som Mckeon MD; Alton Durham MD [...] Vinny Arango MD 01/06/2024 09:58 PM EDT RP Dictated By: Vinny Arango MD Signed By: <Electronically signed by Vinny Arango MD in OV> 01/06/242157 DD/ 1232 TD/TT: 12/08/23 1240 Truck Body Repairer: [facility] [address] [place] [address] XRay Report Signed Patient: Maureen Foreman MR#: [id number] : 1940 Acct:[id number] Age/Sex: 83 / F ADM Date: 12/08/23 Loc: HO.XRAY Attending Dr: Aneudy Fernández MD Ordering Physician: Som Mckeon MD Date of Service: 12/08/23 Procedure(s): XR KUB Accession Number(s): [id number] cc: Som Mckeon MD; Alton Durham MD [...] changes are present in the spine. Electronically tammie d by: Vinny Arango MD 01/06/2024 09:58 PM EDT RP Dictated By: Vinny Arango MD Signed By: <Electronically signed by Vinny Arango MD in OV> 01/06/242157 DD/ 1232 TD/TT: 12/08/23 1240 Truck Body Repairer: XR soft tissue neck Reviewed date:04/17/2024 12:23:13 PM Interpretation: Performing Lab: Notes/Report: [place] [address] XRay Report Signed Patient: Maureen Foreman MR#: [id number] : 1940 Acct:[id number] Age/Sex: 83 / F ADM Date: 03/29/24 Loc: HO.XRAY Attending Dr: Julee Asher [facility]- Ordering Physician: Julee Asher [facility]-DG Date of Service: 03/29/24 Procedure(s): XR soft tissue neck Accession Number(s): [id number] cc: Alton Durham MD; Julee Asher [facility]- EXAMINATION: XR SOFT TISSUE NECK CLINICAL INDICATION: K22.2 - Esophageal obstruction COMPARISON: CT soft tissue neck 06/19/2023. Ultrasound of the thyroid 07/13/2023. TECHNIQUE: 2 views of the soft tissue neck were obtained. Exam submitted for review 04/17/2024 8:16 AM [employer]IST[employer]. FINDINGS: Soft tissue films of the neck [...] by: Roberto Huffman MD 04/17/2024 09:19 AM EST Dictated By: Roberto Huffman MD Signed By: <Electronically signed by Roberto Huffman MD in OV> 04/17/24 0919 DD/ 1502 TD/TT: 03/29/24 1510 Truck Body Repairer: [address] [address] XRay Report Signed Patient: Maureen Foreman MR#: [id number] : 1940 Acct:[id number] Age/Sex: 83 / F ADM Date: 03/29/24 Loc: HO.XRAY Attending Dr: Julee Asher [facility]- Ordering Physician: Julee Asher Date of Service: 03/29/24 Procedure(s): XR sof t tissue neck Accession Number(s): [id number] cc: Alton Durham MD; Julee Asher [facility]- EXAMINATION: XR SOFT TISSUE NECK CLINICAL INDICATION: K22.2 - Esophageal obstruction COMPARISON: CT soft tissue neck 06/19/2023. Ultrasound of the thyroid 07/13/2023. TECHNIQUE: 2 views of the soft tissue neck were obtained. Exam submitted for review 04/17/2024 8:16 AM CIT[employer] ADMINISTRATOR. FINDINGS: Soft tissue films of the neck demonstrate a normal larynx, pharynx, hypopharynx, and upp er trachea. No masses appreciated. No prevertebral soft tissue swelling or opaque foreign body is demonstrated. There are right grea ter than left carotid bulb calcifications, moderate. Severe degenerative changes spanning C3-C7 of the cervical spine, with ventrally projecting disc osteophyte at C3-4, C4-5, and C5-6. XR/XR soft tissue neck IMPRESSION: 1. No acute soft tis lakshmi abnormalities. 2. Recommend correlating with EGD if felt clinically warranted. Electronically tammie d by: Roberto Huffman MD 04/17/2024 09:19 AM [facility] Dictated By: Roberto Huffman MD Signed By: <Electronically signed by Roberto Huffman MD in OV> 04/17/24 0919 DD/ 1502 TD/TT: 03/29/24 1510 Truck Body Repairer: YAS tomosynthesis screening B I Reviewed date:05/05/2024 04:58:08 PM Interpretation: Performing Lab: Notes/Report: [facility] [address] [place] [address] Mammography Report Signed Patient: Maureen Foreman MR#: [id number] : 1940 Acct:[id number] Age/Sex: 83 / F ADM Date: 04/24/24 Loc: JAYCOB Attending Dr: Alton Durham MD Ordering Physician: Alton Durham MD Results: 1Ne gative Date of Service: 04/24/24 Follow Up: 1 Year From Orig inal Mammogram Procedure(s): MM tomosynthesis screening BI Accession Number(s): [id number] cc: Alton Durham MD EXAMINATION: MM SCREENING [...] Judy Bravo DO 05/05/2024 04:28 PM [facility] Dictated By: Judy Bravo DO Signed By: <Electronically signed by Judy Bravo DO in OV> 05/05/24 1628 DD/ 0800 TD/TT: 04/24/24 0821 Truck Body Repairer: [facility] [address] [place] [address] Mammography Report Signed Patient: Maureen Foreman MR#: [id number] : 1940 Acct:[id number] Age/Sex: 83 / F ADM Date: 04/24/24 Loc: BIRDO Attending Dr: Alton Durham MD Ordering Physician: Alton Durham MD Results: 1Ne gative Date of Service: 04/24/24 Follow Up: 1 Year From Orig inal Mammogram Procedure(s): MM tomosynthesis screening BI Accession Number(s): [id number] cc: Alton Durham MD EXAMINATION: MM SCREENING DIGITAL BREAST TOMOSYNTHESIS, BILATERAL CLINICAL INFORMATION: Screening. Asymptomatic. COMPARISON: Mammography: Compari son is made with available priors TECHNIQUE: Digital [...] mammography screening. 1 year F/U This examination jess uld not preclude the clinical evaluation of a suspicious palpable abnormality. This patient's information was entered into a reminder system with a target due date for their next mammogram. Electronically tammie d by: Judy Bravo DO 05/05/2024 04:28 PM [facility] Dictated By: Judy Bravo DO Signed By: <Electronically signed by Judy Bravo DO in OV> 05/05/24 1628 DD/ 0800 TD/TT: 04/24/24 0821 Truck Body Repairer: Liver Panel Reviewed date:05/15/2024 02:16:26 PM Interpretation: Performing Lab:[facility], [address] [place] [id number] Notes/Report: Bilirubin Total 0.4 0.0-1.0 mg/dL Bilirubin Direct 0.1 0.0-0.5 mg/dL Aspartate Amino Transferase 32 5-31 U/L Alanine Aminotransferase 32 0-31 U/L Total Protein 6.8 6.5-8.0 g/dL Albumin Level 4.2 3.5-5.0 g/dL Alkaline Phosphatase 99 39-117 U/L CT cervical spine wo con Reviewed date:05/18/2024 01:47:30 PM Interpretation: Performing Lab: Notes/Report: [address] [address] [address] Scan Report Signed Patient: Maureen Foreman MR#: [id number] : 1940 Acct:[id number] Age/Sex: 83 / F ADM Date: 05/16/24 Loc: HO.ED Attending Dr: Ordering Physician: Segundo Montague Date of Service: 05/16/24 Procedure(s): CT cervical spine wo IV con Accession Number(s): [id number] cc: Segundo Montague; Alton Durham MD Report Number: [id number]: Total DLP = 214.00 mGy-cm EXAMINATION: CT CERVICAL SPINE WITHOUT CONTRAST CLINICAL INFORMATION: Status post fall. COMPARISON: None available. TECHNIQUE: Contiguous axial images through the cervical spine using 3 mm collimation with bone and soft tissue algorithm. Sagittal and coronal reformatted images acquired. This CT examination was performed using dose optimization techniques as appropriate, variously including the following: *Automated exposure control *Adjustment of mA and/or kV according to patient size (this includes techniques or standardized protocols for targeted exams where dose is matched to indication/reason for exam; i.e. extremities or head) *Use of iterative reconstruction technique. DLP: 240 mGy centimeters. FINDINGS: Craniocervical junction is intact. Multilevel marginal osteophyte formation, subchondral cyst formation, decreased intervertebral disc height, endplate sclerosis and vacuum phenomenon, C3 C7 more conspicuous at C5-6 and C6-7 levels. Under calcinosis, intervertebral disc C3-4. Grade 1 anterolisthesis, C2-3, C3-4 and C7-T1 likely degenerative. Facet joint hypertrophy bilaterally, C3-4 to C7-T1. C1 is intact. C2 is intact. C3 is intact. C4 is intact. C5 is intact. C6 is intact. C7 is intact. No gross prevertebral compartment hematoma. Osteopenia versus osteoporosis. Calcified plaques in the carotid arteries, bilaterally. Bilateral apical lung scarring. CT/CT cervical spine wo IV con IMPRESSION: Multilevel cervical spondylosis C3 C7 without acute fracture or trauma-related listhesis. Fleischner guidelines were followed. Electronically signed by: Wilberto Cardoso MD 05/16/2024 12:38 PM [facility] Dictated By: Wilberto Sanches MD Signed By: <Electronically signed by Wilberto Martel MD in OV> 05/16/24 1238 DD/ 1142 TD/TT: 05/16/24 1218 Truck Body Repairer: [address] [address] [address] Scan Report Signed Patient: Maureen Foreman MR#: [id number] : 1940 Acct:[id number] Age/Sex: 83 / F ADM Date: 05/16/24 Loc: HO.ED Attending Dr: Ordering Physician: Segudno Montague Date of Service: 05/16/24 Procedure(s): CT cervical spine wo IV con Accession Number(s): [id number] cc: Segundo Montague; Alton Durham MD Report Number: [id number]: Total DLP = 214.00 mGy-cm EXAMINATION: CT CERVICAL SPINE WITHOUT CONTRAST CLINICAL INFORMATION: Status post fall. COMPARISON: None available. TECHNIQUE: Contiguous axial arlyn ges through the cervical spine using 3 mm collimation with bon e and soft tissue algorithm. Sagittal and coronal reformatted images acquired. This CT examination was performed using dose optimization techniques as appropriate, various ly including the following: *Automated exposure control *Adjustment of mA and/or kV according to patient size (this includes techniques or standardized protocols for targeted exams where dose is matched to indication/reason for exam; i.e. extremities or head) *Use of iterative reconstruction technique. DLP: 240 mGy centimeters. FINDINGS: Craniocervical junct ion is intact. Multilevel marginal osteophyte formation, subchondral cyst formation, decreased intervertebral disc height, endplate sclerosis and vacuum phenomenon, C3 C7 mo re conspicuous at C5-6 and C6-7 levels. Under calcinosis, intervertebral disc C3-4. Grade 1 anterolisthesis, C2-3, C3-4 and C7-T1 likely degenerative. Facet joint hypertro phy bilaterally, C3-4 to C7-T1. C1 is intact. C2 is intact. C3 is intact. C4 is intact. C5 is intact. C6 is intact. C7 is intact. No gross prevertebra l compartment hematoma. Osteopenia versus osteoporosis. Calcified plaques in the carotid arteries, bilaterally. Bilateral apical irene g scarring. CT/CT cervical spine wo IV con IMPRESSION: Multilevel cervical spondylosis C3 C7 without acute fracture or trauma-related listhesis. Fleischner guideline s were followed. Electronically tammie d by: Wilberto Cardoso MD 05/16/2024 12:38 PM [facility] Dictated By: Wilberto Kerr MD Signed By: <Electronically signed by Wilberto Martel MD in OV> 05/16/24 1238 DD/ 1142 TD/TT: 05/16/24 1218 Truck Body Repairer: CT head/brain wo con Reviewed date:05/16/2024 04:41:18 PM Interpretation: Performing Lab: Notes/Report: [address] [address] [address] Scan Report Signed Patient: Maureen Foreman MR#: [id number] : 1940 Acct:[id number] Age/Sex: 83 / F ADM Date: 05/16/24 Loc: HO.ED Attending Dr: Ordering Physician: Generic ED Physician Date of Service: 05/16/24 Procedure(s): CT head/brain wo IV con Accession Number(s): [id number] cc: Alton Durham MD; Generic ED Physician Report Number: [id number]: Total DLP = 625.00 mGy-cm EXAMINATION: CT HEAD AND FACIAL BONES WITHOUT CONTRAST CLINICAL INFORMATION: Fall, head strike. COMPARISON: None available. TECHNIQUE: Contiguous axial imaging was performed from the skull base to vertex, and also including axial CT imaging of the maxillofacial bones without intravenous administration of contrast. Sagittal, coronal, and thin section axial reformatted images were constructed from the axial data set. This CT examination was performed using dose optimization techniques as appropriate, variously including the following: *Automated exposure control *Adjustment of mA and/or kV according to patient size (this includes techniques or standardized protocols for targeted exams where dose is matched to indication/reason for exam; i.e. extremities or head) *Use of iterative reconstruction technique DLP: 615 mGy-cm (CT Head) 215 mGy-cm (CT Facial Bones) FINDINGS: There is no evidence of intracranial hemorrhage or extra-axial fluid collection. There is no mass effect, or edema. No CT evidence of acute territorial infarct. Ventricles, sulci, and cisterns are normal in size and configuration for patient age. No hydrocephalus. No midline shift. 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 Mild low density supratentorial white matter changes, in keeping with small vessel ischemic change. Normal sella. Mild atheromatous calcification of the bilateral carotid siphons. There is left preseptal and bryan-zygomatic soft tissue swelling. There is diastases of the left frontozygomatic suture. There is a subtle fracture of the left lower lobe 4, measuring approximately 9 mm in transverse, by 13 mm in AP diameter. There is mild swelling of the left inferior rectus muscle. There is approximately 2 mm of herniation of the inferior belly of the inferior rectus muscle into the bony defect. (Series 24, image 85). There is a subtle fracture of the lateral orbital apex (series 21, image 44), nondisplaced. I do not appreciate a left orbital superior or medial wall fracture. The paranasal sinuses, mastoid air cells, and tympanic cavities are normally aerated. No suspicious bony abnormalities. There are no additional fractures. The remainder of the maxillofacial bones are intact. The mandible is intact. 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 Incidental note made of a periapical lucency with cortical buccal dehiscence involving tooth #13 (series 21, image 26). CT/CT head/brain wo IV con IMPRESSION: 1. No acute intracranial abnormalities. No calvarial fracture. 2. There is left preseptal and bryan-zygomatic soft tissue swelling and laceration. 3. There is a mild diastases of the frontozygomatic suture of the left lateral orbit, and there is an extremely subtle minimally displaced left orbital floor fracture measuring 9 x 13 mm, with 2 mm of depression into the maxillary sinus. Subtle fracture of the left lateral orbit near the orbital apex, nondisplaced. 4. There is mild enlargement/swelling of the inferior rectus muscle a small amount herniation of the inferior belly into the fracture defect by 2 mm. Correlate for left inferior rectus entrapment. 5. No additional fractures identified. 6. See the body of report for additional ancillary findings. Electronically signed by: Roberto Huffman MD 05/16/2024 12:52 PM [facility] Dictated By: Roberto Huffman MD Signed By: <Electronically signed by Roberto Huffman MD in OV> 05/16/24 1252 DD/ 1153 TD/TT: 05/16/24 1218 Truck Body Repairer: [address] [address] [address] Scan Report Signed Patient: Maureen Foreman MR#: [id number] : 1940 Acct:[id number] Age/Sex: 83 / F ADM Date: 05/16/24 Loc: HO.ED Attending Dr: Ordering Physician: Generic ED Physician Date of Service: 05/16/24 Procedure(s): CT head/brain wo IV con Accession Number(s): [id number] cc: Alton Durham MD; Generic ED Physician Report Number: [id number]: Total DLP = 625.00 mGy-cm EXAMINATION: CT HEAD AND FACIAL BONES WITHOUT CONTRAST CLINICAL INFORMATION: Fall, head strike. COMPARISON: None available. TECHNIQUE: Contiguous axial imaging was performed from the skull base to vertex, and also including axial CT imaging of the maxillofacial bones without intravenous administration of contrast. Sagittal, coronal, and thin section axial reformatted images were constructed from the axial data set. This CT examination was performed using dose optimization techniques as appropriate, various ly including the following: *Automated exposure control *Adjustment of mA and/or kV according to patient size (this includes techniques or standardized protocols for targeted exams where dose is matched to indication/reason for exam; i.e. extremities or head) *Use of iterative reconstruction technique DLP: 615 mGy-cm (CT Head) 215 mGy-cm (CT Facia l Bones) FINDINGS: There is no evidence of intracranial hemorrhage or extra-axial fluid collection. There is no mass effect, or edema. No CT evidence of acute territorial infarct. Ventricles, sulci, a nd cisterns are normal in size and configuration for patient age. No hydrocephalus. No midline shift. 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 Mild low density supratentorial white matter changes, in keeping with small vessel ischemi c change. Normal sella. Mild atheromatous calcification of the bilateral carotid siphons. There is left presep rosio and bryan-zygomatic soft tissue swelling. There is diastases o f the left frontozygomatic suture. There is a subtle fracture of the left lower lobe 4, measuring approximately 9 mm i n transverse, by 13 mm in AP diameter. There is mild swelling of the left inferior rectus muscle. There is approximately 2 mm o f herniation of the inferior belly of the inferior rectus muscle into t he bony defect. (Series 24, image 85). There is a subtle fracture of the lateral orbital apex (series 21, image 44), nondisplaced. I do not appreciate a left orbital superior or medial wall fracture. The paranasal sinuse s, mastoid air cells, and tympanic cavities are normally aerated. No suspicious bony abnormalities. There are no additional fractures. The remainder of the maxillofacial bones are intact. The mandible is intact. 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 Incidental note made of a periapical lucency with cortical buccal dehiscence involving tooth #13 (series 21, image 26). CT/CT head/brain wo IV con IMPRESSION: 1. No acute intracranial abnormalities. No calvarial fracture. 2. There is left preseptal and bryan-zygomatic soft tissue swelling and laceration. 3. There is a mild diastases of the frontozygomatic suture of the left lateral orbit, and there is an extremely subtle minimally displaced left orbital floor fracture measuring 9 x 13 mm, with 2 mm of depression into the maxillary sinus. Subtle fracture of the left lateral orbit near t he orbital apex, nondisplaced. 4. There is mild enlargement/swelling of the inferior rectus muscle a small amount herniat ion of the inferior belly into the fracture defect by 2 mm. Correlate f or left inferior rectus entrapment. 5. No additional fractures identified. 6. See the body of report for additional ancillary findings. Electronically tammie d by: Roberto Huffman MD 05/16/2024 12:52 PM [facility] Dictated By: Roberto Huffman MD Signed By: <Electronically signed by Roberto Huffman MD in OV> 05/16/24 1252 DD/ 1153 TD/TT: 05/16/24 1218 Truck Body Repairer: CT facial bones wo con Reviewed date:05/16/2024 04:42:06 PM Interpretation: Performing Lab: Notes/Report: [address] [place] [address] CT Scan Report Signed Patient: Maureen Foreman MR#: [id number] : 1940 Acct:[id number] Age/Sex: 83 / F ADM Date: 05/16/24 Loc: HO.ED Attending Dr: Ordering Physician: Segundo Montague Date of Service: 05/16/24 Procedure(s): CT facial bones wo IV con Accession Number(s): [id number] cc: Segundo Montague; Alton Durham MD Report Number: [id number]: Total DLP = 215.00 mGy-cm EXAMINATION: CT HEAD AND FACIAL BONES WITHOUT CONTRAST CLINICAL INFORMATION: Fall, head strike. COMPARISON: None available. TECHNIQUE: Contiguous axial imaging was performed from the skull base to vertex, and also including axial CT imaging of the maxillofacial bones without intravenous administration of contrast. Sagittal, coronal, and thin section axial reformatted images were constructed from the axial data set. This CT examination was performed using dose optimization techniques as appropriate, variously including the following: *Automated exposure control *Adjustment of mA and/or kV according to patient size (this includes techniques or standardized protocols for targeted exams where dose is matched to indication/reason for exam; i.e. extremities or head) *Use of iterative reconstruction technique DLP: 615 mGy-cm (CT Head) 215 mGy-cm (CT Facial Bones) FINDINGS: There is no evidence of intracranial hemorrhage or extra-axial fluid collection. There is no mass effect, or edema. No CT evidence of acute territorial infarct. Ventricles, sulci, and cisterns are normal in size and configuration for patient age. No hydrocephalus. No midline shift. 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 Mild low density supratentorial white matter changes, in keeping with small vessel ischemic change. Normal sella. Mild atheromatous calcification of the bilateral carotid siphons. There is left preseptal and bryan-zygomatic soft tissue swelling. There is diastases of the left frontozygomatic suture. There is a subtle fracture of the left lower lobe 4, measuring approximately 9 mm in transverse, by 13 mm in AP diameter. There is mild swelling of the left inferior rectus muscle. There is approximately 2 mm of herniation of the inferior belly of the inferior rectus muscle into the bony defect. (Series 24, image 85). There is a subtle fracture of the lateral orbital apex (series 21, image 44), nondisplaced. I do not appreciate a left orbital superior or medial wall fracture. The paranasal sinuses, mastoid air cells, and tympanic cavities are normally aerated. No suspicious bony abnormalities. There are no additional fractures. The remainder of the maxillofacial bones are intact. The mandible is intact. 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 Incidental note made of a periapical lucency with cortical buccal dehiscence involving tooth #13 (series 21, image 26). CT/CT facial bones wo IV con IMPRESSION: 1. No acute intracranial abnormalities. No calvarial fracture. 2. There is left preseptal and bryan-zygomatic soft tissue swelling and laceration. 3. There is a mild diastases of the frontozygomatic suture of the left lateral orbit, and there is an extremely subtle minimally displaced left orbital floor fracture measuring 9 x 13 mm, with 2 mm of depression into the maxillary sinus. Subtle fracture of the left lateral orbit near the orbital apex, nondisplaced. 4. There is mild enlargement/swelling of the inferior rectus muscle a small amount herniation of the inferior belly into the fracture defect by 2 mm. Correlate for left inferior rectus entrapment. 5. No additional fractures identified. 6. See the body of report for additional ancillary findings. Electronically signed by: Roberto Huffman MD 05/16/2024 12:52 PM [facility] Dictated By: Roberto Huffman MD Signed By: <Electronically signed by Roberto Huffman MD in OV> 05/16/24 1252 DD/ 1153 TD/TT: 05/16/24 1218 Truck Body Repairer: [place] [address] CT Scan Report Signed Patient: Maureen Foreman MR#: [id number] : 1940 Acct:[id number] Age/Sex: 83 / F ADM Date: 05/16/24 Loc: HO.ED Attending Dr: Ordering Physician: Segundo Montague Date of Service: 05/16/24 Procedure(s): CT fac ial bones wo IV con Accession Number(s): [id number] cc: Segundo Montague; Alton Durham MD Report Number: [id number]: Total DLP = 215.00 mGy-cm EXAMINATION: CT HEAD AND FACIAL BONES WITHOUT CONTRAST CLINICAL INFORMATION: Fall, head strike. COMPARISON: None available. TECHNIQUE: Contiguous axial imaging was performed from the skull base to vertex, and also including axial CT imaging of the maxillofacial bones without intravenous administration of contrast. Sagittal, coronal, and thin section axial reformatted images were constructed from the axial data set. This CT examination was performed using dose optimization techniques as appropriate, various ly including the following: *Automated exposure control *Adjustment of mA and/or kV according to patient size (this includes techniques or standardized protocols for targeted exams where dose is matched to indication/reason for exam; i.e. extremities or head) *Use of iterative reconstruction technique DLP: 615 mGy-cm (CT Head) 215 mGy-cm (CT Facia l Bones) FINDINGS: There is no evidence of intracranial hemorrhage or extra-axial fluid collection. There is no mass effect, or edema. No CT evidence of acute territorial infarct. Ventricles, sulci, a nd cisterns are normal in size and configuration for patient age. No hydrocephalus. No midline shift. 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 Mild low density supratentorial white matter changes, in keeping with small vessel ischemi c change. Normal sella. Mild atheromatous calcification of the bilateral carotid siphons. There is left presep rosio and bryan-zygomatic soft tissue swelling. There is diastases o f the left frontozygomatic suture. There is a subtle fracture of the left lower lobe 4, measuring approximately 9 mm i n transverse, by 13 mm in AP diameter. There is mild swelling of the left inferior rectus muscle. There is approximately 2 mm o f herniation of the inferior belly of the inferior rectus muscle into t he bony defect. (Series 24, image 85). There is a subtle fracture of the lateral orbital apex (series 21, image 44), nondisplaced. I do not appreciate a left orbital superior or medial wall fracture. The paranasal sinuse s, mastoid air cells, and tympanic cavities are normally aerated. No suspicious bony abnormalities. There are no additional fractures. The remainder of the maxillofacial bones are intact. The mandible is intact. 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 Incidental note made of a periapical lucency with cortical buccal dehiscence involving tooth #13 (series 21, image 26). CT/CT facial bones wo IV con IMPRESSION: 1. No acute intracranial abnormalities. No calvarial fracture. 2. There is left preseptal and bryan-zygomatic soft tissue swelling and laceration. 3. There is a mild diastases of the frontozygomatic suture of the left lateral orbit, and there is an extremely subtle minimally displaced left orbital floor fracture measuring 9 x 13 mm, with 2 mm of depression into the maxillary sinus. Subtle fracture of the left lateral orbit near t he orbital apex, nondisplaced. 4. There is mild enlargement/swelling of the inferior rectus muscle a small amount herniat ion of the inferior belly into the fracture defect by 2 mm. Correlate f or left inferior rectus entrapment. 5. No additional fractures identified. 6. See the body of report for additional ancillary findings. Electronically tammie d by: Roberto Huffman MD 05/16/2024 12:52 PM [facility] Dictated By: Roberto Huffman MD Signed By: <Electronically signed by Roberto Huffman MD in OV> 05/16/24 1252 DD/ 1153 TD/TT: 05/16/24 1218 Truck Body Repairer: Complete Blood Count Scott Garcia Reviewed date:06/02/2024 12:39:21 PM Interpretation: Performing Lab:[facility], [address] [place] [phone] Notes/Report: White Blood Count 3.4 4.8-10.8 X10*3/uL Red Blood Count 5.09 4.20-5.50 X10*6/uL Hemoglobin 15.4 12.0-16.0 g/dl Hematocrit 47.0 37.0-47.0 % Mean Corpuscular Volume 92.3 80.0-98.0 fL Mean Corpuscular Hemoglobin 30.3 27.0-33.0 pg Mean Corpuscular HGB Conc 32.8 31.0-35.0 g/dl Red Cell Distribution Width 13.5 11.0-16.0 % Platelet Count 167 160-400 X10*3/uL Mean Platelet Volume 10.0 9.4-12.3 fL NRBC Pct Auto 0.0 0.0-0.2 /100WBC NRBC Abs Auto 0.000 0.0-0.012 X10*3/uL Neutrophils Percent Manual 66 45-73 % Band Neutrophils Percent 0 3-5 % Lymphocytes Percent Manual 22 20-40 % Atypical Lymphs Percent Manual 1 0-6 % Monocytes Percent Manual 10 2-11 % Basophils Percent Manual 1 0-2 % Neutrophils Absolute Manual 2.2 2.0-8.3 X10*3/uL Lymphocytes Absolute Manual 0.7 1.2-4.9 X10*3/uL Monocytes Absolute Manual 0.3 0.1-1.2 X10*3/uL Platelet Estimate NORMAL NORMAL Platelet Morphology Comment NORMAL RBC Morphology NORMAL Erythrocyte Sedimentation Ra te Reviewed date:06/02/2024 12:22:30 PM Interpretation: Performing Lab:[facility], [address] [place] [phone] Notes/Report: Erythrocyte Sedimentation Rate 2 0-20 MM/HR Patients with polycythemia and many hemoglobin abnormalities may have depressed sed rates whereas patients with anemia may have elevated sed rates. Comprehensive Met. Panel Reviewed date:06/02/2024 12:23:01 PM Interpretation: Performing Lab:[facility], [address] [place] [phone] Notes/Report: Sodium 142 135-145 mmol/L Potassium 4.4 3.3-5.1 mmol/L Chloride 105 96-108 mmol/L Carbon Dioxide 30 22-29 mmol/L Anion Gap 11 12-20 Blood Urea Nitrogen 24 9-16 mg/dL Creatinine 0.64 0.5-1.4 mg/dL Creatinine Clr Calc Pharmacy 55.2 Provided height and weight: 172.72 cm, 54.4 kg. eGFR (calculated from the MDRD study equation) and eCrCl (calculated from the Cockcroft-Gault equation) are based on different parameters and may not yield comparable results. If eCrCl result is absurd, please check patient's height/weight. Estimated Glomerular Filt Rate > 60 Chronic Kidney Disease: Estimated GFR < 60 mL/min/1.73m2 Severe Kidney Disease: Estimated GFR < 15 mL/min/1.73m2 Glucose Random 78 60-115 mg/dL Calcium 10.1 8.4-10.2 mg/dL Bilirubin Total 0.6 0.0-1.0 mg/dL Aspartate Amino Transferase 33 5-31 U/L Alanine Aminotransferase 48 0-31 U/L Total Protein 7.4 6.5-8.0 g/dL Albumin Level 4.2 3.5-5.0 g/dL Alkaline Phosphatase 96 39-117 U/L Lactate Dehydrogenase Reviewed date:06/02/2024 12:22:09 PM Interpretation: Performing Lab:[facility], [address] [place] [phone] Notes/Report: Lactate Dehydrogenase 255 122-220 U/L Vitamin B12 and Folate Reviewed date:06/02/2024 04:20:13 PM Interpretation: Performing Lab:[facility], [address] [place] [phone] Notes/Report: Vitamin B12 488 200-900 pg/mL NORMAL 200-900 PG/ML INDETERMINATE 160-199 PG/ML DEFICIENT < 160 PG/ML Folate 13.8 > or = 4.0 ng/mL Reference Values: > or = 4.0 ng/mL < 4.0 ng/mL suggests folate deficiency Methotrexate, aminopterin and folinic acid (leucovorin) are chemotherapeutic agents whose molecular structures are similar to folate; therefore, the [employer] folate assay cannot be used for patients using these drugs. Immunofixation Pnl, Serum Reviewed date:06/07/2024 08:09:13 PM Interpretation: Performing Lab:[facility], [address] [place] [phone] Notes/Report: IgG 624 512-8335 mg/dL IgA 85 70-320 mg/dL IgM 41 50-300 mg/dL THIS TEST WAS PERFORMED AT: [facility] [address] [place] [phone] ADALID FOURNIER MD Immunofixation Interpretation SEE NOTE Normal pattern. No monoclonal proteins detected. THEO Reflex Titer and Pattern Reviewed date:06/07/2024 08:08:55 PM Interpretation: Performing Lab:[facility], [address] [place] [phone] Notes/Report: Anti Nuclear Antibody Screen NEGATIVE NEGATIVE THEO IFA is a first line screen for detecting the presence of up to approximately 150 autoantibodies in various autoimmune diseases. A negative THEO IFA result suggests an THEO-associated autoimmune disease is not present at this time, but is not definitive. If there is high clinical suspicion for Sjogren's syndrome, testing for anti-SS-A/Ro antibody should be considered. Anti-Joan-1 antibody should be considered for clinically suspected inflammatory myopathies. AC-0: Negative International Consensus on THEO Patterns (https://doi.org/10 15/wyea-3513-5323) For additional information, please refer to http://education.Cityblis.Aquaspy/faq/FA Q177 (This link is being provided for informational/ educational purposes only.) THIS TEST WAS PERFORMED AT: [facility] [address] [place] [phone] ADALID FOURNIER MD Anti Nuclear Antibody Titer TNP Anti Nuclear Antibody Pattern TNP THEO Titer 2 TNP THEO Pattern 2 TNP THEO Titer 3 TNP THEO Pattern 3 TNP Rheumatoid Factor Reviewed date:06/02/2024 04:14:35 PM Interpretation: Performing Lab:[address] [phone] Notes/Report: Rheumatoid Factor < 13.0 <15.0 IU/mL Hepatitis B,C Profile Reviewed date:06/02/2024 04:14:21 PM Interpretation: Performing Lab:[facility], [address] [place] [phone] Notes/Report: Hepatitis B Surface Antibody NONREACTIVE Nonreactive Nonreactive: < 8.00 mIU/mL Hepatitis B Core Antibody Nonreactive Nonreactive Hepatitis C Antibody Nonreactive Nonreactive Antibodies to HCV not detected; does not exclude early acute HCV infection. Hepatitis B Surface Antigen Negative Negative HIV Ab/Ag Reviewed date:06/02/2024 04:14:43 PM Interpretation: Performing Lab:[address] [phone] Notes/Report: HIV AB/AG Nonreactive Nonreactive HIV-1 p24 Ag and/or HIV-1/HIV-2 Ab not detected. A test result that is nonreactive does not exclude the possibility of exposure to or infection with HIV-1 and/or HIV-2. Nonreactive results in this assay for individuals with prior exposure to HIV-1 and/or HIV-2 may be due to antigen and antibody levels that are below the limit of detection of this assay. The [employer] HIV Ag/Ab Combo assay result and supplemental assay results should be interpreted in conjunction with the patient's clinical presentation, history and other laboratory results. If the results are inconsistent with clinical evidence, additional testing is suggested to confirm the result. US carotid duplex BI Reviewed date:06/09/2024 12:41:10 PM Interpretation: Performing Lab: Notes/Report: [address] [address] Ultrasound Report Signed Patient: Maureen Foreman MR#: [id number] : 1940 Acct:[id number] Age/Sex: 84 / F ADM Date: 06/09/24 Loc: .US Attending Dr: Alton Durham MD Ordering Physician: Alton Durham MD Date of Service: 06/09/24 Procedure(s): US carotid duplex BI Accession Number(s): [id number] cc: Alton Durham MD EXAMINATION: US EXTRACRANIAL CAROTID DUPLEX, BILATERAL CLINICAL INFORMATION: Carotid artery disease. COMPARISON: October 02, 2019. TECHNIQUE: Real-time ultrasound and Doppler techniques (integrating B-mode 2-D vascular images, Doppler spectral analysis and color-flow Doppler imaging) were utilized to interrogate the extracranial carotid arteries, the vertebral arteries and proximal subclavian arteries bilaterally. The degree of stenosis is determined by criteria similar to NASCET. FINDINGS: Right Side: 1. There is irregular shaped, calcified atherosclerotic plaque seen in the bifurcation/proximal ICA region. 2. The common carotid artery PSV proximally is 101 cm/s and distally 115 cm/s. 3. The proximal internal carotid artery velocities are 90 cm/s systolic and 24 cm/s diastolic. 4. The proximal external carotid artery PSV is 136 cm/s. 5. The vertebral artery shows antegrade flow. 6. The subclavian artery waveforms are triphasic.. Left Side: 1. There is irregularly-shaped calcified atherosclerotic plaque seen in the bifurcation/proximal ICA region. 2. The common carotid artery PSV proximally is 127 cm/s and distally 107 cm/s. 3. The proximal internal carotid artery velocities are 92 cm/s systolic and 20 cm/s diastolic. 4. The proximal external carotid artery PSV is 125 cm/s. 5. The vertebral artery shows antegrade flow. 6. The subclavian artery waveforms are triphasic. US/US carotid duplex BI IMPRESSION: 1. RIGHT: Irregular shaped calcified plaque. 0-49% stenosis by ultrasound criteria. 2. LEFT: Irregular shaped calcified plaque. 0-49% stenosis by ultrasound criteria. 3. There is no change in the category severity of disease when compared to the previous study dated October 02, 2019. Electronically signed by: Wilberto Cardoso MD 06/09/2024 12:19 PM [facility] Dictated By: Wilberto Sanches MD Signed By: <Electronically signed by Wilberto Martel MD in OV> 06/09/24 1219 DD/ 1127 TD/TT: 06/09/24 1150 Truck Body Repairer: [place] [address] Ultrasound Report Signed Patient: Maureen Froeman MR#: [id number] : 1940 Acct:[id number] Age/Sex: 84 / F ADM Date: 06/09/24 Loc: . Attending Dr: Alton Durham MD Ordering Physician: Alton Durham MD Date of Service: 06/09/24 Procedure(s): US carotid duplex BI Accession Number(s): [id number] cc: Alton Durham MD EXAMINATION: US EXTRACRANIAL KELLY TID DUPLEX, BILATERAL CLINICAL INFORMATION: Carotid artery disease. COMPARISON: October 02, 2019. TECHNIQUE: Real-time ultrasound and Doppler techniques (integrating B-mode 2-D vascular images, Doppler spectral analysis and color-flow Doppler imaging) were utilized to interrog ate the extracranial carotid arteries, the vertebral arteries a nd proximal subclavian arteries bilaterally. The degree of stenosis i s determined by criteria similar to NASCET. FINDINGS: Right Side: 1. There is irregula r shaped, calcified atherosclerotic plaque seen in the bifurcation/proximal ICA region. 2. The common caroti d artery PSV proximally is 101 cm/s and distally 115 cm/s. 3. The proximal internal carotid artery velocities are 90 cm/s systolic and 24 cm/s diastolic. 4. The proximal external carotid artery PSV is 136 cm/s. 5. The vertebral art silva shows antegrade flow. 6. The subclavian artery waveforms are triphasic.. Left Side: 1. There is irregularly-shaped calcified atherosclerotic plaque seen in the bifurcation/proximal ICA region. 2. The common caroti d artery PSV proximally is 127 cm/s and distally 107 cm/s. 3. The proximal internal carotid artery velocities are 92 cm/s systolic and 20 cm/s diastolic. 4. The proximal external carotid artery PSV is 125 cm/s. 5. The vertebral art silva shows antegrade flow. 6. The subclavian artery waveforms are triphasic. US/US carotid duplex BI IMPRESSION: 1. RIGHT: Irregular shaped calcified plaque. 0-49% stenosis by ultrasound criteria. 2. LEFT: Irregular shaped calcified plaque. 0-49% stenosis by ultrasound criteria. 3. There is no roy e in the category severity of disease when compared to the previous stud y dated October 02, 2019. Electronically tammie d by: Wilberto Cardoso MD 06/09/2024 12:19 PM [facility] Dictated By: Wilberto Kerr MD Signed By: <Electronically signed by Wilberto Martel MD in OV> 06/09/24 1219 DD/ 1127 TD/TT: 06/09/24 1150 Truck Body Repairer: US abdomen complete Reviewed date:06/13/2024 12:36:35 PM Interpretation: Performing Lab: Notes/Report: [address] [address] Ultrasound Report Signed Patient: Maureen Foreman MR#: [id number] : 1940 Acct:[id number] Age/Sex: 84 / F ADM Date: 06/13/24 Loc: HO.US Attending Dr: Julee ANAYA Ordering Physician: Julee Asher Date of Service: 06/13/24 Procedure(s): US abdomen complete Accession Number(s): [id number] cc: Alton Durham MD; Julee AsherP- CLINICAL HISTORY: R74.01 - Elevation of levels of liver transaminase levels US abdomen complete with duplex and color Doppler Comparison: US/SR - US RENAL BI - 06/28/23 08:[address]/SR - CT ABDOMEN PELVIS WO IV CON - 01/20/23 16:29 EDT Findings: The visualized , aorta, and inferior vena cava are unremarkable. Pancreas obscured by bowel gas Liver normal size and echotexture. Right lobe 12.8 cm length. No focal hepatic masses. Common duct 2.6 mm diameter. Borderline gallbladder hydrops. No gallstones or sludge. No gallbladder wall thickening. No pericholecystic fluid. No sonographic Cota sign. Main portal vein antegrade. Right kidney normal size, 10.6 cm in length. Normal cortical width and echotexture. No solid or cystic renal masses. Probable vascular reflectors rather than caliceal stones. Left kidney normal, 9.3 cm in length. Normal cortical width and echotexture. No solid or cystic renal masses. Probable vascular reflectors rather than caliceal stones. Spleen measures 9.4 cm. No splenic masses. Calcified splenic granulomas. No ascites. No lymphadenopathy. Impression: 1. Liver is normal size and echotexture with no focal hepatic masses 2. No cholelithiasis. Borderline gallbladder hydrops. This document has been electronically signed by: Hilton Spangler MD on 06/13/2024 10:25:40 Dictated By: Hilton Spangler MD Signed By: <Electronically signed by Hilton Spangler MD in OV> 06/13/24 1026 DD/ 1025 TD/TT: 06/13/24 1025 Truck Body Repairer: [place] [address] Ultrasound Report Signed Patient: Maureen Foreman MR#: [id number] : 1940 Acct:[id number] Age/Sex: 84 / F ADM Date: 06/13/24 Loc: HO.US Attending Dr: Julee ARELLANOP-BC Ordering Physician: Julee Asher-DG Date of Service: 06/13/24 Procedure(s): US abdomen complete Accession Number(s): [id number] cc: Alton Durham MD; Julee Asher [facility] CLINICAL HISTORY: R74.01 - Elevation of levels of liver transaminase levels US abdomen complete with duplex and color Doppler Comparison: US/SR - US RENAL BI - 06/28/23 08:[address]/SR - CT ABDOMEN PELVIS WO IV CON - 01/20/23 16:29 EDT Findings: The visualized , aor ta, and inferior vena cava are unremarkable. Pancreas obscured by bowel gas Liver normal size an d echotexture. Right lobe 12.8 cm length. No focal hepatic masses. Common duct 2.6 mm diameter. Borderline gallbladd er hydrops. No gallstones or sludge. No gallbladder wall thickening. No pericholecystic fluid. No sonographic Cota sign. Main portal vein antegrade. Right kidney normal size, 10.6 cm in length. Normal cortical width and echotexture. No marielena d or cystic renal masses. Probable vascular reflectors rather than caliceal stones. Left kidney normal, 9.3 cm in length. Normal cortical width and echotexture. No marielena d or cystic renal masses. Probable vascular reflectors rather than caliceal stones. Spleen measures 9.4 cm. No splenic masses. Calcified splenic granulomas. No ascites. No lymphadenopathy. Impression: 1. Liver is normal s ize and echotexture with no focal hepatic masses 2. No cholelithiasis . Borderline gallbladder hydrops. This document has be en electronically signed by: Hilton Spangler MD on 06/13/2024 10:25:40 Dictated By: Hilton Spangler MD Signed By: <Electronically signed by Hilton Spangler MD in OV> 06/13/24 1026 DD/ 1025 TD/TT: 06/13/24 1025 Truck Body Repairer: IRON PROFILE Reviewed date:07/03/2024 12:28:58 PM Interpretation: Performing Lab:[facility], [address] [place] [phone] Notes/Report: Iron 123 30-160 mcg/dL Total Iron Binding Capacity 338 228-428 mcg/dL Percent Iron Saturation 36 15-50 % Unsaturated Iron Binding 215 Ferritin Reviewed date:07/03/2024 12:22:12 PM Interpretation: Performing Lab:[facility], [address] [place] [phone] Notes/Report: Ferritin 32 10-250 ng/mL C Reactive Protein Reviewed date:07/03/2024 12:21:54 PM Interpretation: Performing Lab:[facility], [address] [place] [phone] Notes/Report: C Reactive Protein < 0.10 < or = 0.50 mg/dL Ceruloplasmin Reviewed date:07/13/2024 12:40:30 PM Interpretation: Performing Lab:[facility], [address] [place] [phone] Notes/Report: Ceruloplasmin 26 14-48 mg/dL THIS TEST WAS PERFORMED AT: [facility] [address] [place] [phone] ADALID FOURNIER MD Alpha Fetoprotein Reviewed date:07/13/2024 04:14:53 PM Interpretation: Performing Lab:[facility], [address] [place] [phone] Notes/Report: Alpha Fetoprotein 5.3 Reference Range: <6.1 The use of AFP as a tumor marker in females is not recommended. This test was performed using the [place] chemiluminescent method. Values obtained from different assay methods cannot be used interchangeably. AFP levels, regardless of value, should not be interpreted as absolute evidence of the presence or absence of disease. THIS TEST WAS PERFORMED AT: [facility] [address] [place] [phone] ADALID FOURNIER MD Liver Fibrosis Pnl Reviewed date:07/13/2024 12:40:22 PM Interpretation: Performing Lab:[address] [phone] Notes/Report: Liver Fibrosis Score 0.25 Liver Fibrosis Stage F0-F1 Liver Fibrosis Interpretation SEE NOTE no fibrosis Fibro Test Score (f) Metavir Score f>=0 and f<=0.21 : F0 (no fibrosis) f>0.21 and f<=0.27 : F0-F1 (no fibrosis) f>0.27 and f<=0.31 : F1 (minimal fibrosis) f>0.31 and f<=0.48 : F1-F2 (minimal fibrosis) f>0.48 and f<=0.58 : F2 (moderate fibrosis) f>0.58 and f<=0.72 : F3 (advanced fibrosis) f>0.72 and f<=0.74 : F3-F4 (advanced fibrosis) f>0.74 and f<=1.00 : F4 (severe fibrosis) Nec Inflam Act Score 0.06 Nec Inflam Act Grade A0 Nec Inflam Act Interpretation SEE NOTE no activity ActiTest Score (a) Metavir Score a>=0 and a<=0.17 : A0 (no activity) a>0.17 and a<=0.29 : A0-A1 (no activity) a>0.29 and a<=0.36 : A1 (minimal activity) a>0.36 and a<=0.52 : A1-A2 (minimal activity) a>0.52 and a<=0.60 : A2 (significant activity) a>0.60 and a<=0.62 : A2-A3 (significant activity) a>0.62 and a<=1.00 : A3 (severe activity) FYQ-Uvowv-2-Macroglobul in 198 106-279 mg/dL FIB-Haptoglobin 77 43-212 mg/dL FIB-Apolipoprotein A1 223 101-198 mg/dL FIB-Total Bilirubin 0.6 0.2-1.2 mg/dL FIB-GGT 27 3-65 U/L FIB-ALT 18 6-29 U/L Reference ID [id number] Footnote SEE NOTE The reliability of results is dependent on compliance with the preanalytical and analytical conditions recommended by [employer]. The tests have to be deferred for: acute hemolysis, acute hepatitis, acute inflammation, extra hepatic cholestasis. The advice of a specialist should be sought for interpretation in chronic hemolysis and Gilbert's syndrome. The test interpretation is not validated in liver transplant patients. Isolated extreme values of one of the components should lead to caution in interpreting the results. In case of discordance between a biopsy result and a test, it is recommended to seek the advice of a specialist. The causes of these discordances could be due to a flaw of the test or to a flaw in the biopsy: i.e. a liver biopsy has a 33% variability rate for one fibrosis stage. FibroTest is interpretable for chronic hepatitis B and C, alcoholic and non alcoholic steatosis. ActiTest is interpretable for chronic hepatitis B and C. The performance characteristics have been determined by [facility]. It has not been cleared or approved by the U.S. Food and Drug Administration. Performance characteristics refer to the analytical performance of the test. Actiwave, the associated logo, Ketto and all associated [employer] patel are the registered trademarks of [employer]. All third republican patel - (R) and (TM) - are the property of their respective owners. (C) 7856-1979 [employer]. All rights reserved. THIS TEST WAS PERFORMED AT: [employer] [facility] [place] [address] [place] [address] DELMER PRIETO MD,PHD,LOPEZ Mitochondrial Antibody Reviewed date:07/12/2024 07:07:20 PM Interpretation: Performing Lab:[address] [phone] Notes/Report: Mitochondrial Antibodies NEGATIVE NEGATIVE The specimen was negative for cytoplasmic antibodies, however additional staining was observed suggesting the presence of Antinuclear Antibodies. Consider requesting order code 249, THEO Screen, IFA with Reflex to Titer and Pattern, or order code [id number], THEO Screen, IFA w/reflex Titer/Pattern, and Reflex to Multiplex 11 Ab Harrison, if clinically indicated. THIS TEST WAS PERFORMED AT: [employer] [address] [place] [id number] ADALID FOURNIER MD Mitochondrial Ab Titer TNP Smooth Muscle Antibody Reviewed date:07/12/2024 07:07:11 PM Interpretation: Performing Lab:[address] [address] Notes/Report: Smooth Muscle Antibody <20 <20 U Reference Range: <20 U: Negative >or=20 U: Positive Antibodies recognizing actin are the main component of smooth muscle antibodies associated with auto- immune liver disease. Actin antibodies are found in approximately 75% of patients with autoimmune hepatitis (AIH) type 1, approximately 65% of patients with autoimmune cholangitis, approximately 30% of patients with primary biliary cirrhosis and approximately 2% of healthy controls. High values are closely correlated with AIH type 1. THIS TEST WAS PERFORMED AT: [facility] [address] [place] [address] YANET KAMINSKI MD,PHD Complete Blood Count Auto Di ff Reviewed date:08/03/2024 12:56:05 PM Interpretation: Performing Lab:[facility], [address] [place] [phone] Notes/Report: White Blood Count 2.4 4.8-10.8 X10*3/uL Red Blood Count 4.70 4.20-5.50 X10*6/uL Hemoglobin 14.4 12.0-16.0 g/dl Hematocrit 42.9 37.0-47.0 % Mean Corpuscular Volume 91.3 80.0-98.0 fL Mean Corpuscular Hemoglobin 30.6 27.0-33.0 pg Mean Corpuscular HGB Conc 33.6 31.0-35.0 g/dl Red Cell Distribution Width 13.4 11.0-16.0 % Platelet Count 127 160-400 X10*3/uL Mean Platelet Volume 10.1 9.4-12.3 fL Neutrophils Percent Auto 55.6 45-73 % Imm Gran Pct Auto 0.0 0.0-0.4 % Lymphocytes Percent Auto 27.0 20-40 % Monocytes Percent Auto 13.3 2-11 % Eosinophils Percent Auto 3.3 0-4 % Basophils Percent Auto 0.8 0-2 % NRBC Pct Auto 0.0 0.0-0.2 /100WBC Neutrophils Absolute Auto 1.3 2.0-8.3 x10*3/uL Imm Gran Abs Auto 0.00 0.00-0.03 X10*3/uL Lymphocytes Absolute Auto 0.7 1.2-4.9 X10*3/uL Monocytes Absolute Auto 0.3 0.1-1.2 X10*3/uL Eosinophils Absolute Auto 0.1 0.0-0.4 X10*3/uL Basophils Absolute Auto 0.0 0.0-0.2 X10*3/uL NRBC Abs Auto 0.000 0.0-0.012 X10*3/uL White Blood Count 2.4 4.8-10.8 X10*3/uL Red Blood Count 4.70 4.20-5.50 X10*6/uL Hemoglobin 14.4 12.0-16.0 g/dl Hematocrit 42.9 37.0-47.0 % Mean Corpuscular Volume 91.3 80.0-98.0 fL Mean Corpuscular Hemoglobin 30.6 27.0-33.0 pg Mean Corpuscular HGB Conc 33.6 31.0-35.0 g/dl Red Cell Distribution Width 13.4 11.0-16.0 % Platelet Count 127 160-400 X10*3/uL Mean Platelet Volume 10.1 9.4-12.3 fL Neutrophils Percent Auto 55.6 45-73 % Imm Gran Pct Auto 0.0 0.0-0.4 % Lymphocytes Percent Auto 27.0 20-40 % Monocytes Percent Auto 13.3 2-11 % Eosinophils Percent Auto 3.3 0-4 % Basophils Percent Auto 0.8 0-2 % NRBC Pct Auto 0.0 0.0-0.2 /100WBC Neutrophils Absolute Auto 1.3 2.0-8.3 x10*3/uL Imm Gran Abs Auto 0.00 0.00-0.03 X10*3/uL Lymphocytes Absolute Auto 0.7 1.2-4.9 X10*3/uL Monocytes Absolute Auto 0.3 0.1-1.2 X10*3/uL Eosinophils Absolute Auto 0.1 0.0-0.4 X10*3/uL Basophils Absolute Auto 0.0 0.0-0.2 X10*3/uL NRBC Abs Auto 0.000 0.0-0.012 X10*3/uL C ORRECTED REPORT C ORRECTED REPORT Comprehensive Met. Panel Reviewed date:08/03/2024 04:21:18 PM Interpretation: Performing Lab:[facility], [address] [place] [phone] Notes/Report: Sodium 142 135-145 mmol/L Potassium 3.9 3.3-5.1 mmol/L Chloride 110 96-108 mmol/L Carbon Dioxide 25 22-29 mmol/L Anion Gap 11 12-20 Blood Urea Nitrogen 19 9-16 mg/dL Creatinine 0.56 0.5-1.4 mg/dL Creatinine Clr Calc Pharmacy 62.9 Provided height and weight: 172.72 cm, 54.3 kg. eGFR (calculated from the MDRD study equation) and eCrCl (calculated from the Cockcroft-Gault equation) are based on different parameters and may not yield comparable results. If eCrCl result is absurd, please check patient's height/weight. Estimated Glomerular Filt Rate > 60 Chronic Kidney Disease: Estimated GFR < 60 mL/min/1.73m2 Severe Kidney Disease: Estimated GFR < 15 mL/min/1.73m2 Glucose Random 111 60-115 mg/dL Calcium 9.4 8.4-10.2 mg/dL Bilirubin Total 0.7 0.0-1.0 mg/dL Aspartate Amino Transferase 30 5-31 U/L Alanine Aminotransferase 24 0-31 U/L Total Protein 6.0 6.5-8.0 g/dL Albumin Level 3.8 3.5-5.0 g/dL Alkaline Phosphatase 85 39-117 U/L Nely Dubose Reviewed date:08/03/2024 10:57:15 AM Interpretation: Performing Lab:[address] [address] Notes/Report: Nely Dubose See Note Specimen held untested for 24 hours; Call to request Chemistry testing. SLIDE REVIEW Reviewed date:08/03/2024 10:54:08 AM Interpretation: Performing Lab:[address] [address] Notes/Report: SLIDE REVIEW VERIFIED Reason For Referral No Information Medications Medication SIG (Take, Route, Frequency, Duration) [...] Not-Taking Multi Vitamin/Minerals as directed Orally Active Vitamin B-6 50 MG 1 tablet Orally for 30 day(s) Active Sucralfate 1 GM/10ML 10 mL 1 hour before meals and at bedtime on an empty stomach Orally twice a day Active Valtrex 1 GM 1 tablet Orally 3 ti mes per day for 7 days 10/23/2016 Not-Taking Rosuvastatin Calcium 20 MG take 1 tablet by mouth every day Orally Once a day for 90 days Active ZyrTEC 10 MG 1 tablet Orally Once a day for 30 day(s) Not-Taking Potassium Chloride 20 MEQ TAKE 1 PACKET AND MIX IN LIQUID AND DRINK BY MOUTH DAILY DIRECTED Orally QOD Active NexIUM 20 MG 1 capsule Orally twi ce a day Active Immunizations Vaccine Route Administration Date Status Comme nts Shingles IM Intramuscular 12/16/2010 Administered Flu Vaccine IM Intramuscular 04/07/2011 Administered Flu Vaccine IM Intramuscular 01/26/2012 Administered [facility] Flu Vaccine Unknown 02/11/2012 Administered Flu Vaccine IM Intramuscular 02/22/2013 Administered [facility] Tetanus Unknown 01/29/2006 Administered Prevnar 13 IM Intramuscular 04/10/2013 Administered zzz Unknown 04/10/2013 Administered Flu Vaccine Unknown 02/14/2014 Administered [employer] TDaP Unknown 03/21/2014 Administered [facility] Fluarix Quadrivalent IM Intramuscular 02/26/2015 [facility] 02/15/2016 [facility] Quad[facility] 02/17/2017 [facility] 01/21/2018 [facility] [place] [facility] [address] Fluarix Quadrivalent Unknown 02/03/2019 Administered [facility] PPSV23 (Pnemovax) IM Intramuscular 02/10/2019 Administered Influenza High Dose Unknown 01/23/2020 Administered [facility] [employer] zzz Unknown 02/10/2019 Administered zInfluenza Unknown 01/23/2020 Administered SARS-COV-2 Moderna Unknown 05/24/2020 Administered SARS-COV-2 Moderna Unknown 06/18/2020 Administered Influenza High Dose Unknown 02/12/2021 Administered [facility] SARS-COV-2 Moderna Unknown 03/18/2021 Administered [facility] Influenza High Dose Unknown 01/23/2022 Administered Social History Tobacco Use: Social History Observation Description Date Details (start date - stop date) Never Smoker NA - NA Tobacco Use/Smoking Question Answer Notes Patient is a nonsmoker Additional Findings: Tobacco Non-User Cu rrent non-smoker, currently using no form of tobacco Alcohol Screen Question Answer Notes Did you have a drink containing alcohol in the p ast year? No Points 0 Interpretation Negative Problems Problem Type SNOMED Code ICD Code Onset Dates Problem Status W/U Status Risk Notes Problem 305951754 Thyroid nodule (E04.1) Active confirmed Problem 098866405 Neutropenia (D70.9) Active confirmed Problem 209598527 Lung nodule seen on imaging study (R91.1) Active confirmed Problem Non-toxic single thyroid nodule (830455607) Nontoxic single thyroid nodule (E04.1) Active confirmed Problem 4705649 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) Active confirmed Problem Disorder of lumbar disc (840533745) Lumbar disc disease (M51.9) Active confirmed Problem 85590214 Essential hypertension (I10) Active confirmed Problem 457472811 Lung nodule (R91.1) Active confirmed Problem 103264641 Esophageal dysmotility (K22.4) Active confirmed Problem 772622534 History of kidne y stones (Z87.442) Active confirmed Problem 163397914 Cervical disc disease (M50.90) Active confirmed Problem 14494034 Sciatica of left side (M54.32) Active confirmed Problem 597769411 Neutropenia, unspecified type (D70.9) Active confirmed Problem 91633438 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) Active confirmed Problem 86181268 Sciatica of righ t side (M54.31) Active confirmed Problem 55159909 Elevated cholesterol (E78.00) Active confirmed Problem 078892043 Esophageal spasm (K22.4) Active confirmed Problem 18144807933280 Adnexal cyst (N94.9) Active confirmed Problem 617186829 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) Active confirmed Problem 21407476 Achalasia (K22.0) Active confirmed Problem 94510622 Paresthesia (R20.2) Active confirmed Problem 721249678574965 Atherosclerosis of both carotid arteries (I65.23) Active confirmed Problem 819734125 Abnormal mammogr am of both breasts (R92.8) Active confirmed Problem 638580825 Esophageal dysfunction (K22.4) Active confirmed Problem 518863567 Tingling of righ t upper extremity (R20.2) Active confirmed Problem 331090042 Gastroesophageal reflux disease with esophagitis without hemorrhage (K21.00) Active confirmed Problem 362478798 Porokeratosis (Q82.8) Active confirmed Problem 226689423 Hepatic granulom a (K75.3) Active confirmed Problem 626930542 Mild carotid art silva disease (I77.9) Active confirmed Vital Signs Blood pressure diastolic 64 mm Hg 07/11/2024 Height 68 in 07/11/2024 Blood pressure systolic 140 mm Hg 07/11/2024 Weight 118 lbs 07/11/2024 BMI 17.94 kg/m2 07/11/2024 Encounters Encounter Location Date Provider Diagnosis Alton Durham MD [address] [place] [address] [id number] 08/31/2023 Alton Durham Neutropenia D70.9 an d Elevated cholesterol E78.00 Alton Durham MD [address] [place] [address] [id number] 10/21/2023 Alton Durham Hypokalemia E87.6 Alton Durham MD [address] [place] [address] [id number] 10/25/2023 Alton Durham Hypokalemia E87.6 Alton Durham MD [address] [place] [address] [id number] 11/01/2023 Alton Durham Hypokalemia E87.6 Alton Durham MD [address] [place] [address] [id number] 11/25/2023 Alton Durham Hypokalemia E87.6 Alton Durham MD [address] [place] [address] [id number] 01/13/2024 Alton Durham Hypokalemia E87.6 Alton Durham MD [address] [place] [address] [id number] 02/03/2024 Alton Durham Hx of hypokalemia Z86.39 Atlon Durham MD [address] [place] [address] [id number] 03/07/2024 Alton Durham Blood tests for rout ine general physical examination Z00.00 ; Neutropenia D70.9 ; Elevated cholesterol E78.00 and Essential hypertension I10 Alton Durham MD [address] [place] [address] [id number] 04/04/2024 Alton Durham Neutropenia D70.9 Alton Durham MD [address] [place] [address] [id number] 05/09/2024 Alton Durham Gastroesophageal ref lux disease with esophagitis without hemorrhage K21.00 Alton Durham MD [address] [place] [address] [id number] 05/19/2024 Alton Durham Status post fall Z91 .81 ; Mild carotid artery disease I77.9 and Hypokalemia E87.6 Alton Durham MD [address] [place] [address] [id number] 09/09/2023 Alton Durham Achalasia K22.0 and Atherosclerosis of both carotid arteries I65.23 Alton Durham MD [address] [place] [address] [id number] 10/11/2023 Alton Durham Esophageal dysmotili ty K22.4 and Achalasia K22.0 Alton Durham MD [address] [place] [address] [id number] 11/11/2023 Alton Durham Hypokalemia E87.6 ; Esophageal dysmotility K22.4 ; Achalasia K22.0 and Hypotension due to drugs I95.2 Alton Durham MD [address] [place] [address] [id number] 12/13/2023 Alton Durham Hypokalemia E87.6 an d Achalasia K22.0 Alton Durham MD [address] [place] [address] [id number] 03/14/2024 Alton Durham Neutropenia D70.9 ; Elevated cholesterol E78.00 ; Thyroid nodule E04.1 ; Esophageal dysfunction K22.4 ; Hypokalemia E87.6 ; Essential hypertension I10 ; Colon cancer screening Z12.11 and Depression screening Z13.31 Alton Durham MD [address] [place] [address] [id number] 04/14/2024 Alton Durham Neutropenia D70.9 an d Gastroesophageal reflux disease with esophagitis without hemorrhage K21.00 Alton Durham MD [address] [place] [address] [id number] 07/11/2024 Alton Durham Elevated LFTs R79.89 ; Elevated cholesterol E78.00 and Atherosclerosis of both carotid arteries I65.23 Alton Durham MD [address] [place] [address] [id number] 12/27/2023 Alton Durham MD [address] [place] [address] [id number] 06/27/2024 Alton Durham MD [address] [place] [address] [id number] 09/03/2023 Alton Durham MD [address] [place] [address] [id number] 09/20/2023 Alton Durham MD [address] [place] [address] [id number] 10/21/2023 Alton Durham MD [address] [place] [address] [id number] 10/21/2023 Alton Durham MD [address] [place] [address] [id number] 10/22/2023 Alton Durham MD [address] [place] [address] [id number] 10/22/2023 Alton Durham MD [address] [place] [address] [id number] 01/25/2024 Alton Durham MD [address] [place] [address] [id number] 05/18/2024 Alton Durham Bilateral carotid artery disease I77.9 Alton Durham MD [address] [place] [address] [id number] 05/22/2024 Alton Durham MD [address] [place] [address] [id number] 06/09/2024 Alton Durham MD [address] [place] [address] [id number] 07/13/2024 Alton Durham MD [address] [place], [place] [id number] 08/08/2024 Alton Durham Atherosclerosis of b [facility] carotid arteries I65.23 Assessments Encounter Date Diagnosis (ICD Code) Assessment Notes Treatment Notes Treatment Clinical Notes Section Notes 08/31/2023 Neutropenia (ICD-10 - D70.9) 08/31/2023 Elevated cholesterol (ICD-10 - E78.00) 10/21/2023 Hypokalemia (ICD-10 - E87.6) 10/25/2023 Hypokalemia (ICD-10 - E87.6) 11/01/2023 Hypokalemia (ICD-10 - E87.6) 11/25/2023 Hypokalemia (ICD-10 - E87.6) 01/13/2024 Hypokalemia (ICD-10 - E87.6) 02/03/2024 Hx of hypokalemia (ICD-10 - Z86.39) 03/07/2024 Blood tests for routine general physical examination (ICD-10 - Z00.00) 03/07/2024 Neutropenia (ICD-10 - D70.9) 04/04/2024 Neutropenia (ICD-10 - D70.9) 05/09/2024 Gastroesophageal reflux disease with esophagitis without hemorrhage (ICD-10 - K21.00) 05/19/2024 Status post fall (ICD-10 - Z91.81) doing well 05/19/2024 Mild carotid artery disease (ICD-10 - I77.9) had this four years ago and repeat us. 09/09/2023 Achalasia (ICD-10 - K22.0) needs to see specialist..will speak with her gi doctor in 2 weeks 09/09/2023 Atherosclerosis of both carotid arteries (ICD-10 - I65.23) choesterol and lft good, will continue current regiment 10/11/2023 Esophageal dysmotility (ICD-10 - K22.4) had esophageal dilitation. not helping. 10/11/2023 Achalasia (ICD-10 - K22.0) going for stomach motility study./ getting ugi tomorrow. pending diagnostic testing 11/11/2023 Hypokalemia (ICD-10 - E87.6) 11/11/2023 Esophageal dysmotility (ICD-10 - K22.4) is still present of ugi 12/13/2023 Hypokalemia (ICD-10 - E87.6) needs monthly [...] current regiment and will contiue to monitor 04/14/2024 Neutropenia (ICD-10 - D70.9) we are going to repeat her cbc but her wbc has been runnning low for years with a normal differential. 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 07/11/2024 Elevated LFTs (ICD-10 - R79.89) contact Carmen at [facility] to discuss/ is most likely related to the statin. could stop it and see if it returns to normal but don't think that is necessary 05/18/2024 Bilateral carotid artery disease (ICD-10 - I77.9) 08/08/2024 Atherosclerosis of both carotid arteries (ICD-10 - I65.23) 03/07/2024 Elevated cholesterol (ICD-10 - E78.00) 05/19/2024 Hypokalemia (ICD-10 - E87.6) pending lab work 11/11/2023 Achalasia (ICD-10 - K22.0) 03/14/2024 Thyroid nodule (ICD-10 - E04.1) will repeat us next year/ Thyroid order printed and put in future folder 07/11/2024 Elevated cholesterol (ICD-10 - E78.00) is not at goal but with elevated lft's will leave on present 03/07/2024 Essential hypertension (ICD-10 - I10) 11/11/2023 Hypotension due to 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 - 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) will hold the lisinopril 03/14/2024 Esophageal dysfunction (ICD-10 - K22.4) on an incredibly strick diet, will continue current regiment 07/11/2024 Atherosclerosis of both carotid arteries (ICD-10 - I65.23) no change in 5 years 03/14/2024 Hypokalemia (ICD-10 - E87.6) stable, will continue to monitor 03/14/2024 Essential hypertension (ICD-10 - I10) doing well, will contiue current regiment 03/14/2024 Colon cancer screening (ICD-10 - Z12.11) guaiac negative 03/14/2024 Depression screening (ICD-10 - Z13.31) negative screen Plan Of Treatment Pending Test Test Name Order Date Electrocardiogram (EKG) 01/28/2018 Electrocardiogram (EKG) 06/10/2018 XR GI SERIES 06/11/2023 US CAROTID BILATERAL DOPPLER 05/18/2024 US THYROID 06/24/2023 Complete Blood Count Auto Diff CT abdomen pelvis wo con 12/21/2022 US thyroid 07/15/2023 Future Test Test Name Order Date US THYROID 01/02/2020 US THYROID 04/18/2021 CT chest wo con 07/08/2023 US pelvic and transvaginal 07/30/2023 Next Appt Details Provider Name:Alton wick, 08/31/2024 07:00:00 AM, [address] [place] [address], Suite [facility], [place], [place], [phone], Provider Name:Alton wick, 09/05/2024 08:45:00 AM, [address] [place] [address], Suite [facility], [place], [place], [phone], Provider Name:Alton wick, 03/09/2025 07:45:00 AM, [address] [place] [address], Suite [facility], [place], [phone], Provider Name:Alton wick, 03/16/2025 08:00:00 AM, [address] [place] [address], [address] [facility], [place], [phone], Insurance Providers Payer Name Payer Address Payer Phone Subscriber Number Group Number Insured Name Patient Relationship to Insured Coverage Start Date Coverage End Date MED[employer] [address] [facility] [place] [id number] Maureen Foreman Self - patient is the insured [facility] [address] [place] [phone] [id number] Maureen Foreman Self - patient is the insured Medical (General) History Medical History History ICD Code discussed colonoscopy again 2012,2013 di scussed 2018 cta chest with small nodule [address] of Chest in (done in 06/2014) Dermatitis due to drugs and medicines ta gamaliel internally Basal cell cancer needs thyroid 2020 has kidney stone and lithotrypsy 2018 Surgical History Surgery Date(Month/Year) RT Ear Meatoplasty (Dr. Clifton Kaminski) 10/2019
--- OUTSIDE RECORDS SUMMARY | 2024-08-10 07:47 | XMS_ITS ---
Author Organization Alton Durham MD Address [address] [place] [phone] Care Team Providers Care Auditor Supervisor Name Role Phone MarvaAlicjan Primary Care Provider REASON FOR VISIT refill Medications Medication SIG (Take, Route, Frequency, Duration) Notes Start Date End Date Status Rosuvastatin Calcium 20 MG take 1 tablet by mouth every day Orally Once a day for 90 days Active Encounters Encounter Location Date Provider Diagnosis Alton Durham MD [address] [place] [id number] 08/08/2024 Alton Durham Atherosclerosis of b oth [...] days Next Appt Details Provider Name:Alton wick, 08/31/2024 07:00:00 AM, [address], [address], [place], [place], [phone], Provider Name:Alton Joiner ier, 09/05/2024 08:45:00 AM, [address] [facility], [address], [place], [phone], Provider Name:Alton Joiner ier, 03/09/2025 07:45:00 AM, [address] [place] [address], [address], [place], [phone], Provider Name:Alton Joiner ier, 03/16/2025 08:00:00 AM, [address] [place] [address], [address] [facility], [place], [phone], Progress Notes * Maureen WHITE JDOB: (84 yo F)Acc No.[id number]:08/08/2024 Patient:?Maureen WHITE J :1940???Age:84 Y???Sex:Female Address:[address] [place] [address] [place] [address] * Refills? Refill Rosuvastatin Calcium Tablet, 20 MG, Orally, 90, take 1 tablet by mouth every day, Once a day, 90 days, Refills=3 * true * Date:? Generated for Nando baldwin/Douglas/eTransmitting on:?08/10/2024 07:46 AM EDT
== END 2024-08-10 07:44 | disposition home or self-care (01) ==
LOC: HO.US 07:43
PROVIDERS: PCP Internal Medicine; Visit Provider Internal Medicine
DX: D70.9 Neutropenia, unspecified (principal)
CPT/HCPCS: 76536

== ENCOUNTER → 2024-08-10 07:46 | Outpatient (BNV) | payer MEDICARE, OTHER, SELFPAY | PROVIDERS: PCP Internal Medicine; Visit Provider Radiology Diagnostic Radiology | DX: E04.1 Nontoxic single thyroid nodule (principal) | CPT/HCPCS: 76536 ==

== ENCOUNTER 2024-08-22 08:45 | Outpatient (AMB) | payer MEDICARE, OTHER, SELFPAY ==
[2024-08-22 08:49] VITALS: BP 152/78; PULSE 74; O2SAT 100; BMI 18.4
--- NOTE | 2024-08-22 08:49 | A.OFFVIS_ITS ---
Vital Signs 08/22/24 08:49 Height 5 ft 8 in Weight 121 lb BMI 18.4 BP 152/78 H Blood Pressure Location Rt brachial Position Sitting Pulse 74 Pulse Source Pulse Oximeter Pulse Oximetry (%) 100 Oxygen Delivery Method Room Air Intake Visit Reasons: 3wk Intake Note: ESTABLISHED PATIENT for GERD + weight mgmt. Chief Complaint; Pt denies any new sx or concerns at this time. Pt does have some episodes of chronic sx but states that the frequency of episodes has greatly decreased. Pt tolerated a few new foods surrounding the holiday well and reports that their weight has stabilized. Operational Communication Chief Required: No Accompanied by: Self / Same As Patient Allergies cephalexin [From KEFLEX] Allergy (Severe, Verified 08/22/24 08:52) RASH Sulfa (Sulfonamide Antibiotics) [SULFA (SULFONAMIDE ANTIBIOTICS)] Allergy (Severe, Verified 08/22/24 08:52) INTSERNAL AND EXTERNAL RASH/INFECTION Iodinated Contrast Media [IV Dye, Iodine Containing] Allergy (Intermediate, Verified 08/22/24 08:52) HIVES,REDNESS + SWELLING sulfamethoxazole [From BACTRIM] Allergy (Intermediate, Verified 08/22/24 08:52) INTERNAL AND EXTERNAL RASH/ INFECTION stent Allergy (Uncoded 08/22/24 08:52) Vomiting HPI HPI 3wk: Details: LAST VISIT Epigastric pain Weight loss, unintentional Chronic leukopenia Transaminitis GERD (gastroesophageal reflux disease) Plan Continue Nexium. Patient will take sucralfate twice a day. Patient prefers liquid form. Avoid dietary triggers. Continue appointments with dietitian. Patient will watch for food that causing triggers. Stressed the importance of avoiding eating late at night. Patient was encouraged to avoid sweets. Follow-up in 3 weeks, sooner on as needed basis. Patient is agreeable to this plan and verbalizes understanding of instructions. She was given the opportunity to ask questions and all questions answered. ? Thank you for allowing me to participate in her care Medications Changed Changed From sucralfate 10 mL PO BID 14 days 280 mL 0RF Changed To sucralfate 10 mL PO BID 400 mL 2RF Discontinued famotidine Discontinued Reason: Doctor's Order 40 mg PO BEDTIME 90 tabs 3RF pantoprazole Discontinued Reason: Doctor's Order 20 mg PO BID 180 tabs 1RF TODAY'S VISIT Patient is here today for follow-up. Patient reports that she has been doing fairly well since last visit. Patient gained 2 lb. Able to tolerate food with much less symptoms. Occasional belching, however not as severe as before. Patient is taking Nexium twice a day as well as sucralfate twice a day. We want to keep her on this for maybe another month or so. Patient is managing well spacing it out in between her medications. Still taking potassium every other day. Patient's PCP decrease her dose of rosuvastatin to 20 mg and her liver enzymes normalized. Patient can stay on that dose for now. Patient denies any abdominal pain or discomfort. Seen Dr. Madera and had blood work done by her office. Another appointment with her next month. Patient denies dyspepsia, dysphagia or odynophagia. Denies melena, hematochezia, unintentional weight loss or ribbon like stools. [facility] Medical History Transaminitis Chronic leukopenia Erosive esophagitis Kidney stone GERD (gastroesophageal reflux disease) High cholesterol HTN (hypertension) Surgical History H/O lithotripsy H/O esophagogastroduodenoscopy (07/09/23) Social History Alcohol intake: never Patient Tobacco Use Status: Never used Tobacco Advance Directives Date on File: 09/22/23 service: No Current occupational status: retired Current occupational exposures/hazards: No Review of Systems Const Denies weight gain and Denies weight loss ENT Reports no additional complaints, Denies dysphagia and Denies odynophagia Card Reports no additional complaints Resp Reports no additional complaints GI Denies abdominal pain, Denies belching, Denies melena, Denies bloating, Denies change in bowel habits, Denies dysphagia, Denies excessive flatus, Denies dyspepsia, Denies heartburn, Denies diarrhea, Denies loose stools, Denies nausea, Denies odynophagia and Denies vomiting Musc Reports no additional complaints Neuro Reports no additional complaints Psych Reports no additional complaints Endo Reports no additional complaints Physical Exam Const General: no acute distress Orientation/consciousness: patient oriented x3 Resp Effort & Inspection: normal respiratory effort, able to speak in complete sentences, no tracheal deviation and symmetric chest movement Auscultation: clear to auscultation bilaterally Cardio Rate: regular rate GI Inspection: Yes normal to inspection and No distended Palpation (GI): Soft to palpation, not firm, nontender and No hepatosplenomegaly present Auscultation: normal bowel sounds General: Yes no CVA tenderness Back/Spine/Pelvis Back: no CVA tenderness Skin General skin exam: elasticity normal, turgor normal and dry skin Neuro General: patient oriented x3 Psych Appearance: grossly normal Mental Status: mental status grossly normal Assessment & Plan Assessment & Plan (1) Epigastric pain: Code(s): R10.13 - Epigastric pain Category: Medical (2) Weight loss, unintentional: Code(s): R63.4 - Abnormal weight loss Category: Medical (3) Chronic leukopenia: Code(s): D72.819 - Decreased white blood cell count, unspecified Category: Medical (4) Transaminitis: Code(s): R74.01 - Elevation of levels of liver transaminase levels Category: Medical (5) GERD (gastroesophageal reflux disease): Code(s): K21.9 - Gastro-esophageal reflux disease without esophagitis Qualifiers: Esophagitis presence: with esophagitis Esophagitis bleeding: without hemorrhage Qualified Code(s): K21.00 - Gastro-esophageal reflux disease with esophagitis, without bleeding Plan Continue current management for another month. If she is doing well we will try to wean her off and see if she will do better with Voquezna. Currently we are holding that as her insurance was not able to pay for it. Originally vonoprazan was approved for erosive esophagitis only and now is also approved for reflux. Will need to run PA again. Continue avoiding dietary triggers and late night snacking. Continue fiber supplements with probiotics. Follow-up in 1 month, sooner on as needed basis. Patient is agreeable to this plan and verbalizes understanding of instructions. She was given the opportunity to ask questions and all questions answered. Thank you for allowing me to participate in her care Coding Level of Care Code Est Pt Level 3 (87172) Diagnoses Epigastric pain R10.13 Weight loss, unintentional R63.4 Chronic leukopenia D72.819 Transaminitis R74.01 Gastroesophageal reflux disease with esophagitis without hemorrhage K21.00 Esophagitis presence: with esophagitis Esophagitis bleeding: without hemorrhage Time Spent (min) 25 Comment 15 minutes spent with patient and additional 10 minutes spent reviewing her records
--- OUTSIDE RECORDS SUMMARY | 2024-08-22 09:07 | XMS_ITS ---
Author Organization Alton Durham MD Address [address] [place] [phone] Care Team Providers Care Maintenance Engineer Name Role Zahra JeimyAlton staley Primary Care Provider [phone] REASON FOR VISIT Thyroid US due Encounters Encounter Location Date Provider Diagnosis Alton Durham MD [address] [facility] [address] [place] [phone] 08/11/2024 Alton Durham Thyroid nodule E04.1 Assessments [...] 08/11/2024 Next Appt Details Provider Name:Alton wick, 08/31/2024 07:00:00 AM, [address], [address], [place], [phone], Provider Name:Alton Joiner ier, 09/05/2024 08:45:00 AM, [address], [address], [place], [phone], Provider Name:Alton Joiner ier, 03/09/2025 07:45:00 AM, [address] [facility] [address], [address], [place], [phone], Provider Name:Alton Joiner ier, 03/16/2025 08:00:00 AM, [address] [facility] [address] [facility] [address], [address], [place], [phone], Progress Notes * Maureen WHITE JDOB: (84 yo F)Acc No.[id number]:08/11/2024 Patient:?Maureen WHITE J :1940???Age:84 Y???Sex:Female Address:[address] [place] [address] Subjective: * Chief Complaints: * ???Thyroid US due * Medical History:? * Surgical History:? * Hospitalization/Major Diagno stic Procedure:? * Medications:? Objective: * Vitals:? * Physical Examination:? Assessment: * Assessment: 1.?Thyroid nodule - E04.1??? Plan: * Treatment: * Procedure Codes:? * true * Date:? Generated for Nando baldwin/Douglas/eTransmitting on:?08/22/2024 09:07 AM EDT
--- OUTSIDE RECORDS SUMMARY | 2024-08-22 09:08 | XMS_ITS ---
Author Organization Alton Durham MD Address [address] [phone] Care Team Providers Care Receptionist Telephone Operator Name Role Zahra Marva Alton Primary Care Provider [phone] REASON FOR VISIT REGARDING STATIN Encounters Encounter Location Date Provider Diagnosis Alton Durham MD [address] [facility] [address] [place] [phone] 07/13/2024 Alton Durham Plan Of Treatment Next Appt Details Provider Name:Alton wick, 08/31/2024 07:00:00 AM, [address] [place] [address], Suite [facility], [place], [place], [phone], Provider Name:Alton wick, 09/05/2024 08:45:00 AM, [address] [place] [address], [place] [address], [place], [place], [phone], Provider Name:Alton wick, 03/09/2025 07:45:00 AM, [address], [address], [phone], Provider Name:Alton Joiner delano, 03/16/2025 08:00:00 AM, [address], [address], [place], [place], [phone], Progress Notes * Maureen WHITE JDOB: (84 yo F)Acc No.[id number]:07/13/2024 Patient:?Maureen WHITE J :1940???Age:84 Y???Sex:Female Address:[address] [place] [address] [place] [address] * true * Date:? Generated for Nando baldwin/Douglas/eTransmitting on:?08/22/2024 09:07 AM EDT
--- OUTSIDE RECORDS SUMMARY | 2024-08-22 09:08 | XMS_ITS ---
Author Organization [facility] Address [address] [place] [address] Care Team Providers Care Temperature Control Inspector Name Role Phone Alton Durham MD Primary Care Provider Bean Cortes Jr REASON FOR VISIT cancel appt Encounters Encounter Location Date Provider Diagnosis [facility] [address] [place] [address] 06/15/2023 Bean Holley Jr Plan Of Treatment No Information Progress Notes * ABEL WHITEANCEDOB:[birth year] (83 yo F)Acc No.[id number]:06/15/2023 Patient:?CHRISTOPHER ARINA :1940???Age:83 Y???Sex:Female Address:[facility] [place] [address] * true * Date:? Generated for Virai denny/Douglas/eTransmitting on:?08/22/2024 09:08 AM EDT
--- OUTSIDE RECORDS SUMMARY | 2024-08-22 09:09 | XMS_ITS ---
Author Organization Alton Durham MD Address [address] [place] [phone] Care Team Providers Care Technical Internship Name Role Phone MarvaAlton Primary Care Provider [phone] REASON FOR VISIT refill Medications Medication SIG (Take, Route, Frequency, Duration) Notes Start Date End Date Status Rosuvastatin Calcium 20 MG take 1 tablet by mouth every day Orally Once a day for 90 days Active Encounters Encounter Location Date Provider Diagnosis Alton Durham MD [address] [place] [phone] 08/08/2024 Alton Durham Atherosclerosis of b oth [...] Provider Name:Alton wick, 08/31/2024 07:00:00 AM, [address], [address], [place], [place], [phone], Provider Name:Alton Joiner ier, 09/05/2024 08:45:00 AM, [address] [facility], [address], [place], [phone], Provider Name:Alton Joiner ier, 03/09/2025 07:45:00 AM, [address] [place] [address], [address], [place], [phone], Provider Name:Alton Joiner ier, 03/16/2025 08:00:00 AM, [address] [place] [address], [address] [facility], [place], [phone], Progress Notes * Maureen WHITE JDOB: (84 yo F)Acc No.[id number]:08/08/2024 Patient:?Maureen WHITE J :1940???Age:84 Y???Sex:Female Address:[address] [place] [address] [place] [address] * Refills? Refill Rosuvastatin Calcium Tablet, 20 MG, Orally, 90, take 1 tablet by mouth every day, Once a day, 90 days, Refills=3 * true * Date:? Generated for Nando baldwin/Douglas/eTransmitting on:?08/22/2024 09:08 AM EDT
--- OUTSIDE RECORDS SUMMARY | 2024-08-22 09:09 | XMS_ITS ---
Author Organization [facility] Address [address] [place] [address] Care Team Providers Care General Maintenance Helper Name Role Phone Marva GUILLAUME, Alton Primary Care Provider Bean Cortes Jr REASON FOR VISIT BELCHING Encounters Encounter Location Date Provider Diagnosis [facility] [address] [place] [address] 09/16/2023 Bean Holley Jr Plan Of Treatment No Information Progress Notes * ABEL WHITEANCEDOB:[birth year] (84 yo F)Acc No.[id number]:09/16/2023 Progress Notes Patient:?ARINA WHITE Provider:?Bean Holley MD :1940???Age:83 Y???Sex:Female D ate:09/16/2023 Address:[address] [place] [address] [id number] Pcp:Alton Durham MD Subjective: * Chief Complaints: [...] MD Date:?0 09/16/2023 Generated for Nando baldwin/Douglas/eTransmitting on:?08/22/2024 09:09 AM EDT
--- OUTSIDE RECORDS SUMMARY | 2024-08-22 09:09 | XMS_ITS | Patient Health Record ---
Author Organization Alton Durham MD Address [address] [place] [phone] Care Team Providers Care Senior Managing Director Name Role Phone Alton Durham Primary Care [...] ff Reviewed date:08/31/2023 12:37:41 PM Interpretation: Performing Lab:[facility], [address] [place] [phone] Notes/Report: White Blood Count 3.1 4.8-10.8 X10*3/uL [...] Panel Reviewed date:08/31/2023 12:36:40 PM Interpretation: Performing Lab:[address] [address] Notes/Report: Bilirubin Total 0.7 0.0-1.0 mg/dL Bilirubin Direct 0.3 0.0-0.5 mg/dL Aspartate Amino Transferase 28 5-31 U/L Alanine Aminotransferase 25 0-31 U/L Total Protein 6.6 6.5-8.0 g/dL Albumin Level 4.2 3.5-5.0 g/dL Alkaline Phosphatase 70 39-117 U/L Lipid Panel with Reflex Reviewed date:08/31/2023 12:36:13 PM Interpretation: Performing Lab:[address] [address] Notes/Report: Triglycerides 67 <150 mg/dL Desirable Triglyceride: [...] Potassium Reviewed date:10/21/2023 05:06:20 PM Interpretation: Performing Lab:[address] [address] Notes/Report: Potassium 2.8 3.3-5.1 mmol/L Critical value for test(s): POTS Results called to and read back by: YOSELYN Cotton Person calling:SHAMA Date: 10/21/23 Time: 1124 Potassium Reviewed date:10/26/2023 08:42:40 AM Interpretation: Performing Lab:[facility], [address] [place] [phone] Notes/Report: Potassium 3.4 3.3-5.1 mmol/L Potassium Reviewed date:11/01/2023 12:24:52 PM Interpretation: Performing Lab:[facility], [address] [place] [phone] Notes/Report: Potassium 3.7 3.3-5.1 mmol/L Potassium Reviewed date:11/25/2023 12:21:33 PM Interpretation: Performing Lab:[address] [address] Notes/Report: Potassium 3.9 3.3-5.1 mmol/L Potassium Reviewed date:01/14/2024 09:08:52 AM Interpretation: Performing Lab:[address] [address] Notes/Report: Potassium 3.6 3.3-5.1 mmol/L Slight Hemoly sis Potassium Reviewed date:02/03/2024 12:32:20 PM Interpretation: Performing Lab:[facility], [address] [place] [phone] Notes/Report: Potassium 4.2 3.3-5.1 mmol/L Slight Hemoly sis Complete Blood Count Auto Di ff Reviewed date:03/14/2024 09:33:06 AM Interpretation:see back 03-14-2024 Performing Lab:[facility], [address] [place] [phone] Notes/Report: White Blood Count 2.5 4.8-10.8 X10*3/uL [...] NRBC Abs Auto 0.000 0.0-0.012 X10*3/uL Comprehensive Evans. Panel Fa st Reviewed date:03/07/2024 04:52:00 PM Interpretation: Performing Lab:[facility], [address] [place] [phone] Notes/Report: Sodium 141 135-145 mmol/L Potassium 3.9 3.3-5.1 mmol/L Slight Hemolysis.Interpret result with caution. Chloride 104 96-108 mmol/L Carbon Dioxide 27 22-29 mmol/L Anion Gap 14 12-20 Blood Urea Nitrogen 23 9-16 mg/dL Creatinine 0.64 0.5-1.4 mg/dL Estimated Glomerular Filt Rate > 60 NOTE: For -Congolese individuals, multiply the result by 1.210. Chronic [...] Panel Reviewed date:03/07/2024 04:52:17 PM Interpretation: Performing Lab:[facility], [address] [place] [phone] Notes/Report: Triglycerides 63 <150 mg/dL Desirable Triglyceride: [...] t Reviewed date:03/07/2024 04:51:31 PM Interpretation: Performing Lab:[facility], [address] [place] [phone] Notes/Report: Urine, Clean Catch Color Urine Yellow Appearance Urine Clear PH 6.5 5.0-9.0 Glucose Urine UA Negative Negative mg/dL Urine Blood Negative Negative Specific Bigfoot - Urine 1.020 1.005-1.025 Urine Protein 30 [...] ff Reviewed date:04/04/2024 12:44:09 PM Interpretation: Performing Lab:[facility], [address] [place] [phone] Notes/Report: White Blood Count 2.7 4.8-10.8 X10*3/uL [...] Potassium Reviewed date:04/04/2024 12:47:19 PM Interpretation: Performing Lab:[address] [address] Notes/Report: Potassium 3.9 3.3-5.1 mmol/L Complete Blood Count Auto Di ff Reviewed date:05/09/2024 12:31:03 PM Interpretation: Performing Lab:[facility], [address] [place] [phone] Notes/Report: White Blood Count 2.8 4.8-10.8 X10*3/uL [...] Potassium Reviewed date:05/09/2024 12:25:38 PM Interpretation: Performing Lab:[facility], [address] [place] [phone] Notes/Report: Potassium 3.9 3.3-5.1 mmol/L Potassium Reviewed date:11/11/2023 04:20:21 PM Interpretation: Performing Lab:[facility], [address] [place] [phone] Notes/Report: Potassium 4.4 3.3-5.1 mmol/L Potassium Reviewed date:12/13/2023 12:39:37 PM Interpretation: Performing Lab:[facility], [address] [place] [phone] Notes/Report: Potassium 4.0 3.3-5.1 mmol/L Occult Blood, Stool, Guaiac Reviewed date:03/14/2024 11:14:45 AM Interpretation:Negative Performing Lab: Notes/Report: Negative Occult Blood, Stool, Guaiac Neg Hold Gold Reviewed date:08/31/2023 11:16:55 AM Interpretation: Performing Lab:[facility], [address] [place] [phone] Notes/Report: Hold Gold See Note Specimen held untested for 24 hours; Call to request Chemistry testing. CT chest wo con Reviewed date:10/12/2023 01:11:48 PM Interpretation: Performing Lab: Notes/Report: [address] [address] [address] Scan Report Signed Patient: Maureen Foreman MR#: [id number] : 1940 Acct:[id number] Age/Sex: 83 / F ADM Date: 09/16/23 Loc: HO.CT Attending Dr: Alton Durham MD Ordering Physician: Alton Durham MD Date of Service: 09/16/23 Procedure(s): CT chest wo IV con Accession Number(s): [id number] cc: Alton Durham MD EXAMINATION: CT CHEST [...] FINDINGS: LUNGS: Biapical pleural-parenchymal scarring is present. Qaus-ee-ayshxfck emphysematous changes are seen (for example 3 [...] in OV> 10/12/23 0935 DD/ 0837 TD/TT: Stucco Worker: [place] [address] CT Scan Report Signed Patient: Maureen Foreman MR#: [id number] : 1940 Acct:[id number] Age/Sex: 83 / F ADM Date: 09/16/23 Loc: HO.CT Attending Dr: Alton Durham MD Ordering Physician: Alton Durham MD Date of Service: 09/16/23 Procedure(s): CT shaunna st wo IV con Accession Number(s): [id number] cc: Alton Durham MD EXAMINATION: CT CHEST [...] FINDINGS: LUNGS: Biapical pleural-parenchymal scarring is present. Cfoa-wa-ufidljxi emphysematous change s are seen (for example [...] in OV> 10/12/23 0935 DD/ 0837 TD/TT: Stucco Worker: JOY Complete Blood Count Auto Di ff Reviewed date:09/20/2023 05:22:25 PM Interpretation: Performing Lab:[facility], [address] [place] [phone] Notes/Report: White Blood Count 3.9 4.8-10.8 X10*3/uL [...] Panel Reviewed date:09/18/2023 06:27:11 PM Interpretation: Performing Lab:[facility], [address] [place] [phone] Notes/Report: Bilirubin Total 0.8 0.0-1.0 mg/dL Bilirubin Direct 0.3 0.0-0.5 mg/dL Aspartate Amino Transferase 31 5-31 U/L Alanine Aminotransferase 30 0-31 U/L Total Protein 7.0 6.5-8.0 g/dL Albumin Level 4.5 3.5-5.0 g/dL Alkaline Phosphatase 84 39-117 U/L Basic Metabolic Panel Reviewed date:09/18/2023 06:29:52 PM Interpretation: Performing Lab:[facility], [address] [place] [phone] Notes/Report: Sodium 145 135-145 mmol/L Potassium 3.0 [...] Glomerular Filt Rate > 60 NOTE: For -Congolese individuals, multiply the result by 1.210. Chronic Kidney Disease: Estimated GFR < 60 mL/min/1.73m2 Severe Kidney Disease: Estimated GFR < 15 mL/min/1.73m2 Glucose Random 103 60-115 mg/dL Calcium 10.3 8.4-10.2 mg/dL Lipase Reviewed date:09/18/2023 06:27:01 PM Interpretation: Performing Lab:[facility], [address] [place] [phone] Notes/Report: Lipase 22 8-78 U/L Potassium Reviewed date:09/23/2023 01:05:42 PM Interpretation: Performing Lab:[facility], [address] [place] [address] [place] [address] Notes/Report: Potassium 3.0 3.3-5.1 mmol/L Slight Hemoly sis Pathology Reviewed date:09/24/2023 10:02:51 AM Interpretation: Performing Lab:[facility], [address] [place] [address] Notes/Report: --- Name: Maureen Foreman Age/Sex: 83/F : 1940 Unit#: [id number] Attend Dr: Renay Hudson MD Re09/22/23 Status : [facility] Location: [facility] Disch: --- SPEC : [id number] RECD : 09/22/23-1223 STATUS: DEREK LIMA NUM: [id number] ASHLI: 09/22/23-[address] [facility] [address]: Renay Hudson MD ENTERED: 09/22/23-12 31 [...] in 5 parts. A. Received in forma daneil labeled ?stomach biopsy? are 3 fragments of [...] Maureen Foreman Age/Sex: 83/F : 1940 Unit#: [id number] Attend Dr: Renay Hudson MD Re09/22/23 Status : [facility] Location: [facility] Disch: --- SPEC : [id number] RECD : 09/22/23-3 STATUS: DEREK LIMA NUM: [id number] ASHLI: 09/22/23-[address] [facility] [address]: Renay Hudson MD ENTERED: 09/22/23- 31 [...] microscopic examination, 1 piece in cassette [facility] Special studies orde red and performed: Immunostain for H. pylori on A1; AB/PAS stains on A1 and C1. Copies To: Alton Durham MD [address] [place] [address] [place] [address] Renay Hudson MD [address] [place] [address] [place] [id number] --- Signed (signature on file) Graciela Trevor 09/24/23 0947 --- END OF REPORT Complete Blood Count Auto Di ff Reviewed date:10/05/2023 10:02:29 AM Interpretation: Performing Lab:[facility], [address] [place] [phone] Notes/Report: White Blood Count 3.1 4.8-10.8 X10*3/uL [...] Panel Reviewed date:10/05/2023 09:55:46 AM Interpretation: Performing Lab:[facility], [address] [place] [phone] Notes/Report: Bilirubin Total 0.8 0.0-1.0 mg/dL Bilirubin Direct 0.3 0.0-0.5 mg/dL Aspartate Amino Transferase 34 5-31 U/L Alanine Aminotransferase 31 0-31 U/L Total Protein 7.1 6.5-8.0 g/dL Albumin Level 4.5 3.5-5.0 g/dL Alkaline Phosphatase 77 39-117 U/L Basic Metabolic Panel Reviewed date:10/07/2023 12:46:16 PM Interpretation: Performing Lab:[facility], [address] [place] [phone] Notes/Report: Sodium 147 135-145 mmol/L Potassium 2.9 [...] Glomerular Filt Rate > 60 NOTE: For -Congolese individuals, multiply the result by 1.210. Chronic Kidney Disease: Estimated GFR < 60 mL/min/1.73m2 Severe Kidney Disease: Estimated GFR < 15 mL/min/1.73m2 Glucose Random 92 60-115 mg/dL Calcium 10.8 8.4-10.2 mg/dL Magnesium Reviewed date:10/05/2023 09:55:24 AM Interpretation: Performing Lab:[facility], [address] [place] [phone] Notes/Report: Magnesium 1.9 1.6-2.6 mg/dL SLIDE REVIEW Reviewed date:10/05/2023 11:59:08 AM Interpretation: Performing Lab:[facility], [address] [place] [phone] Notes/Report: SLIDE REVIEW VERIFIED XR chest 2V Reviewed date:10/05/2023 09:57:27 AM Interpretation: Performing Lab: Notes/Report: [address] [address] XRay Report Signed Patient: Maureen Foreman MR#: [id number] : 1940 Acct:[id number] Age/Sex: 83 / F ADM Date: 10/05/23 Loc: .ED Attending Dr: Ordering Physician: Ekaterina Leonardo DO Date of Service: 10/05/23 Procedure(s): XR chest 2V Accession Number(s): [id number] cc: Alton Durham MD; Ekaterina Leonardo DO [...] MD in OV> 10/05/23924 DD/ 0853 TD/TT: Stucco Worker: JV [address] [address] XRay Report Signed Patient: Maureen Foreman MR#: [id number] : 1940 Acct:[id number] Age/Sex: 83 / F ADM Date: 10/05/23 Loc: HO.ED Attending Dr: Ordering Physician: Ekaterina Leonardo DO Date of Service: 10/05/23 Procedure(s): XR shaunna st 2V Accession Number(s): [id number] cc: Alton Durham MD; Ekaterina Leonardo DO [...] in OV> 10/05/23 0925 DD/ 0853 TD/TT: Stucco Worker: JV Potassium Reviewed date:10/14/2023 06:10:12 AM Interpretation: Performing Lab:[facility], [address] [place] [phone] Notes/Report: Potassium 3.1 3.3-5.1 mmol/L FL barium swallow Reviewed date:10/22/2023 12:35:07 PM Interpretation: Performing Lab: Notes/Report: [address] [address] Fluoroscopy Report Signed Patient: Maureen Foreman MR#: [id number] : 1940 Acct:[id number] Age/Sex: 83 / F ADM Date: 10/12/23 Loc: HO.XRAY Attending Dr: Julee Asher BITE BLOCK MAKER- Ordering Physician: Julee Asher Date of Service: 10/12/23 Procedure(s): FL barium swallow Accession Number(s): [id number] cc: Alton Durham MD; Julee Asher EXAMINATION: [...] MD in OV> 10/21/231756 DD/ 7 TD/TT: Stucco Worker: [place] [address] Fluoroscopy Report Signed Patient: Maureen Foreman MR#: [id number] : 1940 Acct:[id number] Age/Sex: 83 / F ADM Date: 10/12/23 Loc: HOSEBASTIÁN Attending Dr: Julee ANAYA Ordering Physician: Julee Asher Date of Service: 10/12/23 Procedure(s): FL bar ium swallow Accession Number(s): [id number] cc: Alton Durham MD; Julee Asher EXAMINATION: [...] Huffman MD in OV> 10/21/231756 DD/ TD/TT: Stucco Worker: ALISA gastric emptying study Reviewed date:10/18/2023 05:04:10 PM Interpretation: Performing Lab: Notes/Report: [address] [address] Nuclear Medicine Report Signed Patient: Maureen Foreman MR#: [id number] : 1940 Acct:[id number] Age/Sex: 83 / F ADM Date: 10/18/23 Loc: BENJAMIN Attending Dr: Julee Asher [facility]- Ordering Physician: Julee AsherPRISA Date of Service: 10/18/23 Procedure(s): NM gastric emptying study Accession Number(s): [id number] cc: Alton Durham MD; Julee Asher [facility]-DG EXAMINATION: NM RADIONUCLIDE SOLID FOOD GASTRIC [...] in OV> 10/18/23 1440 DD/ 1215 TD/TT: Stucco Worker: KRISTIE [place] [address] Nuclear Medicine Report Signed Patient: Maureen Foreman MR#: [id number] : 1940 Acct:[id number] Age/Sex: 83 / F ADM Date: 10/18/23 Loc: BENJAMIN Attending Dr: Julee LINTON-DG Ordering Physician: Julee Asher Date of Service: 10/18/23 Procedure(s): NM gastric emptying study Accession Number(s): [id number] cc: Alton Durham MD; Julee Asher EXAMINATION: NM RADIONUCLIDE PAWAN D FOOD GASTRIC EMPTYING 4-HOUR STUDY CLINICAL [...] result). Gastric emptying cintia dy grading per JNHI Consensus Recommendations in 2008 (https://tech.snRezziea ls.org/content/36/44) Grade 1 (mild retention): 11-20% at 4h Grade 2 (moderate retention): 21-35% at 4h Grade 3 (severe retention): 36-50% at 4h Grade 4 (very severe retention): >50% retention at 4h Dictated By: Mary Wiggins MD Signed By: <Electronically signed by Mary Wiggins MD in OV> 10/18/23 1440 DD/ 1215 TD/TT: Stucco Worker: KRISTIE PARKS KUB Reviewed date:01/09/2024 12:30:30 PM Interpretation: Performing Lab: Notes/Report: [address] [address] XRay Report Signed Patient: Maureen Foreman MR#: [id number] : 1940 Acct:[id number] Age/Sex: 83 / F ADM Date: 12/08/23 Loc: CONCHA Attending Dr: Som Mckeon MD Ordering Physician: Som Mckeon MD Date of Service: 12/08/23 Procedure(s): XR KUB Accession Number(s): [id number] cc: Som Mckeon MD; Alton Durham MD [...] OV> 01/06/242157 DD/ 1232 TD/TT: 12/08/23 1240 Stucco Worker: [facility] [address] [place] [address] XRay Report Signed Patient: Maureen Foreman MR#: [id number] : 1940 Acct:[id number] Age/Sex: 83 / F ADM Date: 12/08/23 Loc: HO.XRAY Attending Dr: Aneudy Fernández MD Ordering Physician: Som Mckeon MD Date of Service: 12/08/23 Procedure(s): XR KUB Accession Number(s): [id number] cc: Som Mckeon MD; Alton Durham MD [...] OV> 01/06/242157 DD/ 1232 TD/TT: 12/08/23 1240 Stucco Worker: XR soft tissue neck Reviewed date:04/17/2024 12:23:13 PM Interpretation: Performing Lab: Notes/Report: [place] [address] XRay Report Signed Patient: Maureen Foreman MR#: [id number] : 1940 Acct:[id number] Age/Sex: 83 / F ADM Date: 03/29/24 Loc: HO.XRAY Attending Dr: Julee Asher [facility]- Ordering Physician: Julee Asher [facility]-DG Date of Service: 03/29/24 Procedure(s): XR soft tissue neck Accession Number(s): [id number] cc: Alton Durham MD; Julee Asher [facility]- EXAMINATION: XR SOFT TISSUE NECK CLINICAL INDICATION: K22.2 - Esophageal obstruction COMPARISON: CT soft tissue neck 06/19/2023. Ultrasound of the thyroid 07/13/2023. TECHNIQUE: 2 views of the soft tissue neck were obtained. Exam submitted for review 04/17/2024 8:16 AM [employer] ADMINISTRATOR. FINDINGS: Soft tissue films of the [...] 04/17/24 0919 DD/ 1502 TD/TT: 03/29/24 1510 Stucco Worker: [address] [address] XRay Report Signed Patient: Maureen Foreman MR#: [id number] : 1940 Acct:[id number] Age/Sex: 83 / F ADM Date: 03/29/24 Loc: HO.XRAY Attending Dr: Julee Asher BITE BLOCK MAKER- Ordering Physician: Julee Asher Date of Service: 03/29/24 Procedure(s): XR sof t tissue neck Accession Number(s): [id number] cc: Alton Durham MD; Julee Asher BITE BLOCK MAKER- EXAMINATION: XR SOFT TISSUE NECK CLINICAL INDICATION: K22.2 - Esophageal obstruction COMPARISON: CT soft tissue neck 06/19/2023. Ultrasound of the thyroid 07/13/2023. TECHNIQUE: 2 views of the soft tissue neck were obtained. Exam submitted for review 04/17/2024 8:16 AM [employer] SYSTEMS ADMINISTRATOR. FINDINGS: Soft tissue films of the [...] by: Roberto Huffman MD 04/17/2024 09:19 AM [facility] Dictated By: Roberto Huffman MD Signed By: <Electronically signed by Roberto Huffman MD in OV> 04/17/24 0919 DD/ 1502 TD/TT: 03/29/24 1510 Stucco Worker: YAS tomosynthesis screening B I Reviewed date:05/05/2024 04:58:08 PM Interpretation: Performing Lab: Notes/Report: [facility] [address] [place] [address] Mammography Report Signed Patient: Maureen Foreman MR#: [id number] : 1940 Acct:[id number] Age/Sex: 83 / F ADM Date: 04/24/24 Loc: JAYCOB Attending Dr: Alton Durham MD Ordering Physician: Alton Durham MD Results: 1Ne gative Date of Service: 04/24/24 Follow Up: 1 Year From Orig inal Mammogram Procedure(s): MM tomosynthesis screening BI Accession Number(s): [id number] cc: Alton Durham MD EXAMINATION: MM SCREENING [...] by: Judy Bravo DO 05/05/2024 04:28 PM [facility] Dictated By: Judy Bravo DO Signed By: <Electronically signed by Judy Bravo DO in OV> 05/05/24 1628 DD/ 0800 TD/TT: 04/24/24 0821 Stucco Worker: [facility] [address] [place] [address] Mammography Report Signed Patient: Maureen Foreman MR#: [id number] : 1940 Acct:[id number] Age/Sex: 83 / F ADM Date: 04/24/24 Loc: BIRDO Attending Dr: Alton Durham MD Ordering Physician: Alton Durham MD Results: 1Ne gative Date of Service: 04/24/24 Follow Up: 1 Year From Orig inal Mammogram Procedure(s): MM tomosynthesis screening BI Accession Number(s): [id number] cc: Alton Durham MD EXAMINATION: MM SCREENING [...] by: Judy Bravo DO 05/05/2024 04:28 PM [facility] Dictated By: Judy Bravo DO Signed By: <Electronically signed by Judy Bravo DO in OV> 05/05/24 1628 DD/ 0800 TD/TT: 04/24/24 0821 Stucco Worker: Liver Panel Reviewed date:05/15/2024 02:16:26 PM Interpretation: Performing Lab:[facility], [address] [place] [phone] Notes/Report: Bilirubin Total 0.4 0.0-1.0 mg/dL Bilirubin Direct 0.1 0.0-0.5 mg/dL Aspartate Amino Transferase 32 5-31 U/L Alanine Aminotransferase 32 0-31 U/L Total Protein 6.8 6.5-8.0 g/dL Albumin Level 4.2 3.5-5.0 g/dL Alkaline Phosphatase 99 39-117 U/L CT cervical spine wo con Reviewed date:05/18/2024 01:47:30 PM Interpretation: Performing Lab: Notes/Report: [address] [address] [address] Scan Report Signed Patient: Maureen Foreman MR#: [id number] : 1940 Acct:[id number] Age/Sex: 83 / F ADM Date: 05/16/24 Loc: HO.ED Attending Dr: Ordering Physician: Segundo Montague Date of Service: 05/16/24 Procedure(s): CT cervical spine wo IV con Accession Number(s): [id number] cc: Segundo Montague; Alton Durham MD Report Number: [id number]: Total DLP = 214.00 mGy-cm EXAMINATION: CT [...] by: Wilberto Cardoso MD 05/16/2024 12:38 PM [facility] Dictated By: Wilberto aSnches MD Signed By: <Electronically signed by Wilberto Martel MD in OV> 05/16/24 1238 DD/ 1142 TD/TT: 05/16/24 1218 Stucco Worker: [address] [address] [address] Scan Report Signed Patient: Maureen Foreman MR#: [id number] : 1940 Acct:[id number] Age/Sex: 83 / F ADM Date: 05/16/24 Loc: HO.ED Attending Dr: Ordering Physician: Segundo Montague Date of Service: 05/16/24 Procedure(s): CT cervical spine wo IV con Accession Number(s): [id number] cc: Segundo Montague; Alton Durham MD Report Number: [id number]: Total DLP = 214.00 mGy-cm EXAMINATION: CT [...] by: Wilberto Cardoso MD 05/16/2024 12:38 PM [facility] Dictated By: Wilberto Kerr MD Signed By: <Electronically signed by Wilberto Martel MD in OV> 05/16/24 1238 DD/ 1142 TD/TT: 05/16/24 1218 Stucco Worker: CT head/brain wo con Reviewed date:05/16/2024 04:41:18 PM Interpretation: Performing Lab: Notes/Report: [address] [address] [address] Scan Report Signed Patient: Maureen Foreman MR#: [id number] : 1940 Acct:[id number] Age/Sex: 83 / F ADM Date: 05/16/24 Loc: HO.ED Attending Dr: Ordering Physician: Generic ED Physician Date of Service: 05/16/24 Procedure(s): CT head/brain wo IV con Accession Number(s): [id number] cc: Alton Durham MD; Generic ED Physician Report Number: [id number]: Total DLP = 625.00 mGy-cm EXAMINATION: CT [...] by: Roberto Huffman MD 05/16/2024 12:52 PM [facility] Dictated By: Roberto Huffman MD Signed By: <Electronically signed by Roberto Huffman MD in OV> 05/16/24 1252 DD/ 1153 TD/TT: 05/16/24 1218 Stucco Worker: [address] [address] [address] Scan Report Signed Patient: Maureen Foreman MR#: [id number] : 1940 Acct:[id number] Age/Sex: 83 / F ADM Date: 05/16/24 Loc: HO.ED Attending Dr: Ordering Physician: Generic ED Physician Date of Service: 05/16/24 Procedure(s): CT head/brain wo IV con Accession Number(s): [id number] cc: Alton Durham MD; Generic ED Physician Report Number: [id number]: Total DLP = 625.00 mGy-cm EXAMINATION: CT [...] by: Roberto Huffman MD 05/16/2024 12:52 PM [facility] Dictated By: Roberto Huffman MD Signed By: <Electronically signed by Roberto Huffman MD in OV> 05/16/24 1252 DD/ 1153 TD/TT: 05/16/24 1218 Stucco Worker: CT facial bones wo con Reviewed date:05/16/2024 04:42:06 PM Interpretation: Performing Lab: Notes/Report: [address] [place] [address] CT Scan Report Signed Patient: Maureen Foreman MR#: [id number] : 1940 Acct:[id number] Age/Sex: 83 / F ADM Date: 05/16/24 Loc: HO.ED Attending Dr: Ordering Physician: Segundo Montague Date of Service: 05/16/24 Procedure(s): CT facial bones wo IV con Accession Number(s): [id number] cc: Segundo Montague; Alton Durham MD Report Number: [id number]: Total DLP = 215.00 mGy-cm EXAMINATION: CT [...] by: Roberto Huffman MD 05/16/2024 12:52 PM [facility] Dictated By: Roberto Huffman MD Signed By: <Electronically signed by Roberto Huffman MD in OV> 05/16/24 1252 DD/ 1153 TD/TT: 05/16/24 1218 Stucco Worker: [place] [address] CT Scan Report Signed Patient: Maureen Foreman MR#: [id number] : 1940 Acct:[id number] Age/Sex: 83 / F ADM Date: 05/16/24 Loc: HO.ED Attending Dr: Ordering Physician: Segundo Montague Date of Service: 05/16/24 Procedure(s): CT fac ial bones wo IV con Accession Number(s): [id number] cc: Segundo Montague; Alton Durham MD Report Number: [id number]: Total DLP = 215.00 mGy-cm EXAMINATION: CT [...] by: Roberto Huffman MD 05/16/2024 12:52 PM [facility] Dictated By: Roberto Huffman MD Signed By: <Electronically signed by Roberto Huffman MD in OV> 05/16/24 1252 DD/ 1153 TD/TT: 05/16/24 1218 Stucco Worker: Complete Blood Count Scott Garcia Reviewed date:06/02/2024 12:39:21 PM Interpretation: Performing Lab:[facility], [address] [place] [phone] Notes/Report: White Blood Count 3.4 4.8-10.8 X10*3/uL [...] te Reviewed date:06/02/2024 12:22:30 PM Interpretation: Performing Lab:[facility], [address] [place] [phone] Notes/Report: Erythrocyte Sedimentation Rate 2 0-20 MM/HR Patients with polycythemia and many hemoglobin abnormalities may have depressed sed rates whereas patients with anemia may have elevated sed rates. Comprehensive Met. Panel Reviewed date:06/02/2024 12:23:01 PM Interpretation: Performing Lab:[facility], [address] [place] [phone] Notes/Report: Sodium 142 135-145 mmol/L Potassium 4.4 [...] Dehydrogenase Reviewed date:06/02/2024 12:22:09 PM Interpretation: Performing Lab:[facility], [address] [place] [phone] Notes/Report: Lactate Dehydrogenase 255 122-220 U/L Vitamin B12 and Folate Reviewed date:06/02/2024 04:20:13 PM Interpretation: Performing Lab:[facility], [address] [place] [phone] Notes/Report: Vitamin B12 488 200-900 pg/mL NORMAL 200-900 PG/ML INDETERMINATE 160-199 PG/ML DEFICIENT < 160 PG/ML Folate 13.8 > or = 4.0 ng/mL Reference Values: > or = 4.0 ng/mL < 4.0 ng/mL suggests folate deficiency Methotrexate, aminopterin and folinic acid (leucovorin) are chemotherapeutic agents whose molecular structures are similar to folate; therefore, the Taker Down folate assay cannot be used for patients using these drugs. Immunofixation Pnl, Serum Reviewed date:06/07/2024 08:09:13 PM Interpretation: Performing Lab:[facility], [address] [place] [phone] Notes/Report: IgG 269 920-3773 mg/dL IgA 85 70-320 mg/dL IgM 41 50-300 mg/dL THIS TEST WAS PERFORMED AT: [facility] [address] [place] [phone] ADALID FOURNIER MD Immunofixation Interpretation SEE NOTE Normal pattern. No monoclonal proteins detected. THEO Reflex Titer and Pattern Reviewed date:06/07/2024 08:08:55 PM Interpretation: Performing Lab:[facility], [address] [place] [phone] Notes/Report: Anti Nuclear Antibody Screen NEGATIVE NEGATIVE [...] Negative International Consensus on THEO Patterns (https://doi.org/10 15/zyxt-8622-6933) For additional information, please refer to http://education.[employer]/faq/FA Q177 (This link is being provided for informational/ educational purposes only.) THIS TEST WAS PERFORMED AT: [facility] [address] [place] [phone] ADALID FOURNIER MD Anti Nuclear Antibody Titer TNP Anti Nuclear Antibody Pattern TNP THEO Titer 2 TNP THEO Pattern 2 TNP THEO Titer 3 TNP THEO Pattern 3 TNP Rheumatoid Factor Reviewed date:06/02/2024 04:14:35 PM Interpretation: Performing Lab:[address] [address] Notes/Report: Rheumatoid Factor < 13.0 <15.0 IU/mL Hepatitis B,C Profile Reviewed date:06/02/2024 04:14:21 PM Interpretation: Performing Lab:[facility], [address] [place] [phone] Notes/Report: Hepatitis B Surface Antibody NONREACTIVE Nonreactive Nonreactive: < 8.00 mIU/mL Hepatitis B Core Antibody Nonreactive Nonreactive Hepatitis C Antibody Nonreactive Nonreactive Antibodies to HCV not detected; does not exclude early acute HCV infection. Hepatitis B Surface Antigen Negative Negative HIV Ab/Ag Reviewed date:06/02/2024 04:14:43 PM Interpretation: Performing Lab:[address] [address] Notes/Report: HIV AB/AG Nonreactive Nonreactive HIV-1 p24 [...] limit of detection of this assay. The [employer] (formerly [employer] HIV Ag/Ab Combo assay result and supplemental assay results should be interpreted in conjunction with the patient's clinical presentation, history and other laboratory results. If the results are inconsistent with clinical evidence, additional testing is suggested to confirm the result. US carotid duplex BI Reviewed date:06/09/2024 12:41:10 PM Interpretation: Performing Lab: Notes/Report: [address] [address] Ultrasound Report Signed Patient: Maureen Foreman MR#: [id number] : 1940 Acct:[id number] Age/Sex: 84 / F ADM Date: 06/09/24 Loc: .US Attending Dr: Alton Durham MD Ordering Physician: Alton Durham MD Date of Service: 06/09/24 Procedure(s): US carotid duplex BI Accession Number(s): [id number] cc: Alton Durham MD EXAMINATION: US EXTRACRANIAL [...] by: Wilberto Cardoso MD 06/09/2024 12:19 PM [facility] Dictated By: Wilberto Sanches MD Signed By: <Electronically signed by Wilberto Martel MD in OV> 06/09/24 1219 DD/ 1127 TD/TT: 06/09/24 1150 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 Attending Dr: Alton Durham MD Ordering Physician: Alton Durham MD Date of Service: 06/09/24 Procedure(s): US carotid duplex BI Accession Number(s): [id number] cc: Alton Durham MD EXAMINATION: US EXTRACRANIAL [...] by: Wilberto Cardoso MD 06/09/2024 12:19 PM [facility] Dictated By: Wilberto Kerr MD Signed By: <Electronically signed by Wilberto Martel MD in OV> 06/09/24 1219 DD/ 1127 TD/TT: 06/09/24 1150 Stucco Worker: US abdomen complete Reviewed date:06/13/2024 12:36:35 PM Interpretation: Performing Lab: Notes/Report: [address] [address] Ultrasound Report Signed Patient: Maureen Foreman MR#: [id number] : 1940 Acct:[id number] Age/Sex: 84 / F ADM Date: 06/13/24 Loc: HO.US Attending Dr: Julee ANAYA Ordering Physician: Julee Asher Date of Service: 06/13/24 Procedure(s): US abdomen complete Accession Number(s): [id number] cc: Alton Durham MD; Julee AsherP- CLINICAL [...] 06/13/24 1026 DD/ 1025 TD/TT: 06/13/24 1025 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 Normal cortical width and echotexture. No pawan d or cystic renal masses. Probable vascular reflectors rather than caliceal stones. Left kidney normal, 9.3 cm in length. Normal cortical width and echotexture. No pawan d or cystic renal masses. Probable vascular [...] 06/13/24 1026 DD/ 1025 TD/TT: 06/13/24 1025 Stucco Worker: IRON PROFILE Reviewed date:07/03/2024 12:28:58 PM Interpretation: Performing Lab:[facility], [address] [place] [phone] Notes/Report: Iron 123 30-160 mcg/dL Total Iron Binding Capacity 338 228-428 mcg/dL Percent Iron Saturation 36 15-50 % Unsaturated Iron Binding 215 Ferritin Reviewed date:07/03/2024 12:22:12 PM Interpretation: Performing Lab:[facility], [address] [place] [phone] Notes/Report: Ferritin 32 10-250 ng/mL C Reactive Protein Reviewed date:07/03/2024 12:21:54 PM Interpretation: Performing Lab:[facility], [address] [place] [phone] Notes/Report: C Reactive Protein < 0.10 < or = 0.50 mg/dL Ceruloplasmin Reviewed date:07/13/2024 12:40:30 PM Interpretation: Performing Lab:[facility], [address] [place] [phone] Notes/Report: Ceruloplasmin 26 14-48 mg/dL THIS TEST WAS PERFORMED AT: [facility] [address] [place] [phone] ADALID FOURNIER MD Alpha Fetoprotein Reviewed date:07/13/2024 04:14:53 PM Interpretation: Performing Lab:[facility], [address] [place] [phone] Notes/Report: Alpha Fetoprotein 5.3 Reference Range: <6.1 The use of AFP as a tumor marker in females is not recommended. This test was performed using the [employer] [place] chemiluminescent method. Values obtained from different assay methods cannot be used interchangeably. AFP levels, regardless of value, should not be interpreted as absolute evidence of the presence or absence of disease. THIS TEST WAS PERFORMED AT: [facility] [address] [place] [phone] ADALID FOURNIER MD Liver Fibrosis Pnl Reviewed date:07/13/2024 12:40:22 PM Interpretation: Performing Lab:[address] [phone] Notes/Report: Liver Fibrosis Score 0.25 Liver Fibrosis [...] a>0.62 and a<=1.00 : A3 (severe activity) RBT-Yxgsr-0-Macroglobul in 198 106-279 mg/dL FIB-Haptoglobin 77 43-212 mg/dL FIB-Apolipoprotein A1 223 101-198 mg/dL FIB-Total Bilirubin 0.6 0.2-1.2 mg/dL FIB-GGT 27 3-65 U/L FIB-ALT 18 6-29 U/L Reference ID [id number] Footnote SEE NOTE The reliability of results is dependent on compliance with the preanalytical and analytical conditions recommended by [employer]. The tests have to be deferred for: [...] The performance characteristics have been determined by [facility]. It has not been cleared or approved by the U.S. Food and Drug Administration. Performance characteristics refer to the analytical performance of the test. [employer], the associated logo, [employer] and all associated [employer] patel are the registered trademarks of [employer]. All third libertarian patel - (R) and (TM) - are the property of their respective owners. (C) 4103-9442 [employer]. All rights reserved. THIS TEST WAS PERFORMED AT: [facility] [facility] [address] [place] [address] DELMER PRIETO MD,PHD,LOPEZ Mitochondrial Antibody Reviewed date:07/12/2024 07:07:20 PM Interpretation: Performing Lab:[address] [address] Notes/Report: Mitochondrial Antibodies NEGATIVE NEGATIVE The specimen was negative for cytoplasmic antibodies, however additional staining was observed suggesting the presence of Antinuclear Antibodies. Consider requesting order code 249, THEO Screen, IFA with Reflex to Titer and Pattern, or order code 22826, THEO Screen, IFA w/reflex Titer/Pattern, and Reflex to Multiplex 11 Ab [place], if clinically indicated. THIS TEST WAS PERFORMED AT: [facility] [address] [place] [phone] ADALID FOURNIER MD Mitochondrial Ab Titer TNP Smooth Muscle Antibody Reviewed date:07/12/2024 07:07:11 PM Interpretation: Performing Lab:[address] [phone] Notes/Report: Smooth Muscle Antibody <20 <20 U [...] type 1. THIS TEST WAS PERFORMED AT: [facility] [address] [place] [address] YANET KAMINSKI MD,PHD Complete Blood Count Auto Di ff Reviewed date:08/03/2024 12:56:05 PM Interpretation: Performing Lab:[facility], [address] [place] [phone] Notes/Report: White Blood Count 2.4 4.8-10.8 X10*3/uL [...] Panel Reviewed date:08/03/2024 04:21:18 PM Interpretation: Performing Lab:[facility], [address] [place] [phone] Notes/Report: Sodium 142 135-145 mmol/L Potassium 3.9 [...] 3.5-5.0 g/dL Alkaline Phosphatase 85 39-117 U/L Hold Gold Reviewed date:08/03/2024 10:57:15 AM Interpretation: Performing Lab:[address] [phone] Notes/Report: Hold Gold See Note Specimen held untested for 24 hours; Call to request Chemistry testing. SLIDE REVIEW Reviewed date:08/03/2024 10:54:08 AM Interpretation: Performing Lab:[facility], [address] [place] [phone] Notes/Report: SLIDE REVIEW VERIFIED US thyroid Reviewed date:08/11/2024 09:47:47 AM Interpretation: Performing Lab: Notes/Report: [address] [address] Ultrasound Report Signed Patient: Maureen Foreman MR#: [id number] : 1940 Acct:[id number] Age/Sex: 84 / F ADM Date: 08/10/24 Loc: HO.US Attending Dr: Alton Durham MD Ordering Physician: Alton Durham MD Date of Service: 08/10/24 Procedure(s): US thyroid Accession Number(s): [id number] cc: Alton Durham MD EXAMINATION: US THYROID HISTORY: NEUTROPENIA TECHNIQUE: Real-time grayscale ultrasound imaging was performed and images were reviewed. COMPARISON: Comparison is made with the prior examination dated 07/13/2023. FINDINGS: SIZE: The right thyroid lobe measures 5.5 x 1.9 x 1.4 cm. The left thyroid lobe measures 5.3 x 2.3 x 1.8 cm. The isthmus measures 7 mm. FLOW: Flow to the gland is normal. ECHOGENICITY: The echotexture of the gland is heterogeneous. NODULES: Again seen are multiple bilateral thyroid nodules as described below: Nodule #: 1 Location: Isthmus measuring 1.3 x 0.6 x 1.0 cm (previously 1.4 x 0.5 x 1.0 cm). Shape: Wider than tall (0 points) Margins: Smooth (0 points) Echotexture: n/a Composition: Spongiform (0 points) Calcifications: n/a Total points: 0 TIRADS: TR1: Benign Nodule #: 2 Location: Lower pole of the right thyroid lobe measuring 1.0 x 1.0 x 0.9 cm (not seen previously). Shape: Round (0 points) Margins: Smooth (0 points) Echotexture: Isoechoic (1 point) Composition: Solid (2 points) Calcifications: None (0 points) Total points: 3 TIRADS: TR3: Mildly suspicious. Nodule #: 3 Location: Lower pole of the right thyroid lobe measuring 8 x 4 x 7 mm (previously 7 x 4 x 8 mm). Shape: Wider than tall (0 points) Margins: Smooth (0 points) Echotexture: n/a Composition: Spongiform (0 points) Calcifications: None (0 points) Total points: 0 TIRADS: TR1: Benign Nodule #: 4 Location: Lower pole of the left thyroid lobe measuring 1.4 x 0.9 x 1.4 cm (previously 1.5 x 0.9 x 1.1 cm). Shape: Wider than tall (0 points) Margins: Smooth (0 points) Echotexture: Isoechoic (1 point) Composition: Mostly solid (2 points) Calcifications: Punctate calcifications (3 points) Total points: 6 TIRADS: TR4: Moderately suspicious. US/US thyroid IMPRESSION: Moderately suspicious nodule at the lower pole of the left thyroid lobe. According to ACR TI-RADS guidelines, continue follow-up is recommended at this time. 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 COMPARISON: Comparis on is made with the prior examination dated 07/13/2023. FINDINGS: SIZE: The right thyr oid lobe measures 5.5 x 1.9 x 1.4 cm. The left thyroid lobe measure s 5.3 x 2.3 x 1.8 cm. The isthmus measures 7 mm. FLOW: Flow to the gl and is normal. ECHOGENICITY: The echotexture of the gland is heterogeneous. NODULES: Again seen are multi ple bilateral thyroid nodules as described below: Nodule #: 1 Location: Isthmus measuring 1.3 x 0.6 x 1.0 cm (previously 1.4 x 0.5 x 1.0 cm). Shape: Wider than ta ll (0 points) Margins: Smooth (0 points) Echotexture: n/a Composition: Spongif orm (0 points) Calcifications: n/a Total points: 0 TIRADS: TR1: Benign Nodule #: 2 Location: Lower pole of the right thyroid lobe measuring 1.0 x 1.0 x 0.9 cm (not seen previously). Shape: Round (0 points) Margins: Smooth (0 points) Echotexture: Isoecho ic (1 point) Composition: Solid ( 2 points) Calcifications: None (0 points) Total points: 3 TIRADS: TR3: Mildly suspicious. Nodule #: 3 Location: Lower pole of the right thyroid lobe measuring 8 x 4 x 7 mm (previously 7 x 4 x 8 mm). Shape: Wider than ta ll (0 points) Margins: Smooth (0 points) Echotexture: n/a Composition: Spongif orm (0 points) Calcifications: None (0 points) Total points: 0 TIRADS: TR1: Benign Nodule #: 4 Location: Lower pole of the left thyroid lobe measuring 1.4 x 0.9 x 1.4 cm (previously 1.5 x 0.9 x 1.1 cm). Shape: Wider than ta ll (0 points) Margins: Smooth (0 points) Echotexture: Isoecho ic (1 point) Composition: Mostly solid (2 points) Calcifications: Punctate calcifications (3 points) Total points: 6 TIRADS: TR4: Moderat jamie suspicious. ___ US/US thyroid IMPRESSION: Moderately suspiciou s nodule at the lower pole of the left thyroid lobe. According to A CR TI-RADS guidelines, continue follow-up is recommended at this time. ACR TI-RADS Guidelines TR1 (0 points): Terry gn, No follow-up or biopsy required TR2 (2 points): Not Suspicious, No biopsy or follow up indicated TR3 (3 points): Mild ly Suspicious, FNA if >= 2.5 cm, Follow if >= 1.5 cm TR4 (4-6 points): Moderately Suspicious, FNA if >= 1.5 cm, Follow if >= 1.0 cm TR5 (>=7 points): Highly Suspicious, FNA if >= 1.0 cm, Follow if >= 0.5 cm Electronically tammie d by: Heber Lucas MD 08/10/2024 09:20 AM EDT RP Dictated By: Heber Lucas MD Signed By: <Electronically signed by Heber Lucas MD in OV> 08/10/24919 DD/ TD/TT: 08/10/24 0810 Stucco Worker: Reason For Referral No Information Medications Medication [...] Administered Flu Vaccine IM Intramuscular 01/26/2012 Administered WALSHAYY CHINGNS Flu Vaccine Unknown 02/11/2012 Administered Flu Vaccine IM Intramuscular 02/22/2013 Administered RUBIA ORTEGA Tetanus Unknown 01/29/2006 Administered Prevnar 13 IM Intramuscular 04/10/2013 Administered zzz Unknown 04/10/2013 Administered Flu Vaccine Unknown 02/14/2014 Administered Judy's TDaP Unknown 03/21/2014 Administered [facility] Fluarix Quadrivalent IM Intramuscular 02/26/2015 Administered [place] Flu Vaccine Unknown 02/15/2016 Administered [place] Fluarix Quadrivalent Unknown 02/17/2017 Administered Wallisa's Flu Vaccine IM Intramuscular 01/21/2018 Administered pt wa s given the vaccine at [facility] in [place] on [address] Fluarix Quadrivalent Unknown 02/03/2019 Administered Judy'S PPSV23 (Pnemovax) IM Intramuscular 02/10/2019 Administered Influenza High Dose Unknown 01/23/2020 Administered Rani gonzalez's zzz Unknown 02/10/2019 Administered zInfluenza Unknown 01/23/2020 Administered SARS-COV-2 Moderna Unknown 05/24/2020 Administered SARS-COV-2 Moderna Unknown 06/18/2020 Administered Influenza High Dose Unknown 02/12/2021 Administered Rani gonzalez's SARS-COV-2 Moderna Unknown 03/18/2021 [facility]ered [facility] [...] Problem Status W/U Status Risk Notes Problem 859528647 Thyroid nodule (E04.1) Active confirmed Problem 129013509 Neutropenia (D70.9) Active confirmed Problem 372025921 Lung nodule seen on imaging study (R91.1) Active confirmed Problem Non-toxic single thyroid nodule (071350777) Nontoxic single thyroid nodule (E04.1) Active confirmed Problem 3589562 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) Active confirmed Problem Disorder of lumbar disc (222729297) Lumbar disc disease (M51.9) Active confirmed Problem 92229572 Essential hypertension (I10) Active confirmed Problem 597046385 Lung nodule (R91.1) Active confirmed Problem 335323370 Esophageal dysmotility (K22.4) Active confirmed Problem 709996411 History of kidne y stones (Z87.442) Active confirmed Problem 302862256 Cervical disc disease (M50.90) Active confirmed Problem 80794281 Sciatica of left side (M54.32) Active confirmed Problem 655649347 Neutropenia, unspecified type (D70.9) Active confirmed Problem 84955035 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) Active confirmed Problem 07500905 Sciatica of righ t side (M54.31) Active confirmed Problem 66254156 Elevated cholesterol (E78.00) Active confirmed Problem 441951528 Esophageal spasm (K22.4) Active confirmed Problem 03455302688520 Adnexal cyst (N94.9) Active confirmed Problem 330843904 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) Active confirmed Problem 17041801 Achalasia (K22.0) Active confirmed Problem 70867156 Paresthesia (R20.2) Active confirmed Problem 897141954247156 Atherosclerosis of both carotid arteries (I65.23) Active confirmed Problem 850792372 Abnormal mammogr am of both breasts (R92.8) Active confirmed Problem 260323698 Esophageal dysfunction (K22.4) Active confirmed Problem 885111232 Tingling of righ t upper extremity (R20.2) Active confirmed Problem 196044897 Gastroesophageal reflux disease with esophagitis without hemorrhage (K21.00) Active confirmed Problem 471581910 Porokeratosis (Q82.8) Active confirmed Problem 212387455 Hepatic granulom a (K75.3) Active confirmed Problem 390888015 Mild carotid art silva disease (I77.9) Active confirmed Vital Signs Blood pressure diastolic 64 mm Hg 07/11/2024 Height 68 in 07/11/2024 Blood pressure systolic 140 mm Hg 07/11/2024 Weight 118 lbs 07/11/2024 BMI 17.94 kg/m2 07/11/2024 Encounters Encounter Location Date Provider Diagnosis Alton Durahm MD [address] [place] [address] [id number] 08/31/2023 Alton Durham Neutropenia D70.9 an d Elevated cholesterol E78.00 Alton Durham MD [address] [place] [address] [id number] 10/21/2023 Alton Durham Hypokalemia E87.6 Alton Durham MD [address] [place] [id number] 10/25/2023 Alton Durham Hypokalemia E87.6 Alton Durham MD [address] [place] [id number] 11/01/2023 Alton Durham Hypokalemia E87.6 Alton Durham MD [address] [place] [address] [id number] 11/25/2023 Alton Durham Hypokalemia E87.6 Alton Durham MD [address] [place] [address] [id number] 01/13/2024 Alton Durham Hypokalemia E87.6 Alton Durham MD [address] [place] [address] [id number] 02/03/2024 Alton Durham Hx of hypokalemia Z86.39 Alton Durham MD [address] [place] [address] [id number] 03/07/2024 Alton Durham Blood tests for rout ine general physical examination Z00.00 ; Neutropenia D70.9 ; Elevated cholesterol E78.00 and Essential hypertension I10 Alton Durham MD [address] [place] [address] [id number] 04/04/2024 Alton Durham Neutropenia D70.9 Alton Durham MD [address] [place] [address] [id number] 05/09/2024 Alton Durham Gastroesophageal ref lux disease with esophagitis without hemorrhage K21.00 Alton Durham MD [address] [place] [address] [id number] 05/19/2024 Alton Durham Status post fall Z91 .81 ; Mild carotid artery disease I77.9 and Hypokalemia E87.6 Alton Durham MD [address] [place] [address] [id number] 09/09/2023 Alton Durham Achalasia K22.0 and Atherosclerosis of both carotid arteries I65.23 Alton Durham MD [address] [place] [address] [id number] 10/11/2023 Alton Durham Esophageal dysmotili ty K22.4 and Achalasia K22.0 Alton Durham MD [address] [place] [address] [id number] 11/11/2023 Alton Durham Hypokalemia E87.6 ; Esophageal dysmotility K22.4 ; Achalasia K22.0 and Hypotension due to drugs I95.2 Alton Durham MD [address] [place] [id number] 12/13/2023 Alton Durham Hypokalemia E87.6 an d Achalasia K22.0 Alton Durham MD [address] [place] [address] [id number] 03/14/2024 Alton Durham Neutropenia D70.9 ; Elevated cholesterol E78.00 ; Thyroid nodule E04.1 ; Esophageal dysfunction K22.4 ; Hypokalemia E87.6 ; Essential hypertension I10 ; Colon cancer screening Z12.11 and Depression screening Z13.31 Alton Durham MD [address] [place] [address] [id number] 04/14/2024 Alton Durham Neutropenia D70.9 an d Gastroesophageal reflux disease with esophagitis without hemorrhage K21.00 Alton Durham MD [address] [place] [address] [id number] 07/11/2024 Alton Durham Elevated LFTs R79.89 ; Elevated cholesterol E78.00 and Atherosclerosis of both carotid arteries I65.23 Alton Durham MD [address] [place] [address] [id number] 12/27/2023 Alton Durham MD [address] [place] [address] [id number] 09/03/2023 Alton Durham MD [address] [place] [address] [id number] 09/20/2023 Alton Durham MD [address] [place] [address] [id number] 10/21/2023 Alton Durham MD [address] [place] [place] [address] [id number] 10/21/2023 Alton Durham MD [address] [place] [address] [id number] 10/22/2023 Alton Durham MD [address] [place] [address] [id number] 10/22/2023 Alton Durham MD [address] [place] [address] [id number] 01/25/2024 Alton Durham MD [address] [place] [address] [id number] 05/18/2024 Alton Durham Bilateral carotid artery disease I77.9 Alton Durham MD [address] [place] [address] [id number] 05/22/2024 Alton Durham MD [address] [place] [address] [id number] 06/09/2024 Alton Durham MD [address] [place] [address] [id number] 06/27/2024 Alton Durham MD [address] [place] [address] [id number] 07/13/2024 Alton Durham MD [address] [place] [address] [id number] 08/08/2024 Alton Durham Atherosclerosis of [facility] carotid arteries I65.23 Alton Durham MD [address] [place] [address] [id number] 08/11/2024 Alton Durham Thyroid nodule E04.1 Assessments [...] LFTs (ICD-10 - R79.89) contact Carmen at [facility] to discuss/ is most likely related to the statin. could stop it and see if it returns to normal but don't think that is necessary 05/18/2024 Bilateral carotid artery disease (ICD-10 - I77.9) 08/08/2024 Atherosclerosis of both carotid arteries (ICD-10 - I65.23) 08/11/2024 Thyroid nodule (ICD-10 - E04.1) Order made and put into the future order folder for . 03/07/2024 Elevated cholesterol (ICD-10 - E78.00) 05/19/2024 [...] abdomen pelvis wo con 12/21/2022 US thyroid 08/11/2024 US thyroid 07/15/2023 Future Test Test Name Order Date US THYROID 01/02/2020 US THYROID 04/18/2021 CT chest wo con 07/08/2023 US pelvic and transvaginal 07/30/2023 Next Appt Details Provider Name:Alton jeffersonr, 08/31/2024 07:00:00 AM, [address] [place] [address], [address], [phone], Provider Name:Alton Joiner ier, 09/05/2024 08:45:00 AM, [address] [place] [address], [address], [phone], Provider Name:Alton Joiner ier, 03/09/2025 07:45:00 AM, [address] [place] [address], [address], [phone], Provider Name:Alton Joiner ier, 03/16/2025 08:00:00 AM, [address] [place] [address], [phone], Insurance Providers Payer Name Payer Address Payer Phone Subscriber Number Group Number Insured Name Patient Relationship to Insured Coverage Start Date Coverage End Date MEDICARE NHIC [address] [place] [address] [id number] Maureen Foreman Self - patient is the insured [employer] [address] [place] [phone] [id number] Maureen Foreman Self - patient is [...]
--- OUTSIDE RECORDS SUMMARY | 2024-08-22 09:09 | XMS_ITS | Patient Health Record ---
Author Organization [facility] Address [address] [place] [address] Care Team Providers Care Architectural Job Captain Name Role Phone Alton Durham MD Primary Care Provider Bean Cortes Jr Reason For Referral No Information Plan Of Treatment No Information Insurance Providers Payer Name Payer Address Payer Phone Subscriber Number Group Number Insured Name Patient Relationship to Insured Coverage Start Date Coverage End Date MEDICARE OF [place] [address] [place], [place] [phone] [id number] ARINA WHITE Self - patient is the insured [facility] [address] [address] [place] [address] [id number] ARINA WHITE Self - patient is the insured
== END 2024-08-22 09:52 | disposition home or self-care (01) ==
LOC: HO.HGI 08:46
PROVIDERS: PCP Internal Medicine; Visit Provider Nurse Practitioner Family
DX: R10.13 Epigastric pain (principal); R63.4 Abnormal weight loss; D72.819 Decreased white blood cell count, unspecified; R74.01 Elevation of levels of liver transaminase levels; K21.00 Gastro-esophageal reflux disease with esophagitis, without bleeding
CPT/HCPCS: 99213

== ENCOUNTER → 2024-08-22 08:45 | Outpatient (BNVA) | payer MEDICARE, OTHER, SELFPAY | PROVIDERS: PCP Internal Medicine; Visit Provider Nurse Practitioner Family | DX: K21.9 Gastro-esophageal reflux disease without esophagitis (principal); K21.00 Gastro-esophageal reflux disease with esophagitis, without bleeding; R10.13 Epigastric pain; R63.4 Abnormal weight loss; D72.819 Decreased white blood cell count, unspecified; R74.01 Elevation of levels of liver transaminase levels | CPT/HCPCS: 99212 ==

== ENCOUNTER 2024-08-31 09:59 | Outpatient (REF) | payer MEDICARE, OTHER, SELFPAY ==
--- OUTSIDE RECORDS SUMMARY | 2024-08-31 11:12 | XMS_ITS | Data Portability ---
Author Organization [place] - [facility], Allergy Address [address] [address] Care Team Providers Care Railroad Engineer Name Role Phone GRAHAM HARGROVE Primary Care Provider [phone] Assessment No assessment recorded. Plan of Treatment [...] Recorded Time Impacted cerumen in left ear [id number] Active 2019 Impacted cerumen, left ear; Note: Date Diagnose d: 0 9:06 AM (H61.22) Not Available [facility] 4 02:59:24 Bilatera l diffuse otitis externa [id number] Completed 201912/03/2023 Diffuse otitis externa, bilatera l; Note: Changed from H60.312 to H60.313 ( 0 9:01 AM) , Date Diagnose d: 0 11:52 AM (H60.312 ) Not Available [facility] 4 02:59:21 Cellulit is of both external ears [id number] Completed 201912/03/2023 Cellulit is of external ear, bilatera l; Note: Date Diagnose d: 08/10/2019 9:02 AM (H60.13) Not Available [facility] 4 02:59:22 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 [id number] Active 2019 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 and infectio n; Note: Date Diagnose d: 0 8:43 AM (H61.322 ) Not Available [facility] 4 02:59:21 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 [id number] Completed 201912/03/2023 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 and infectio n; Note: Date Diagnose d: 0 8:43 AM (H61.321 ) Not Available [facility] 4 02:59:22 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 [id number] 37358 Active 2019 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 and infectio n; Note: Date Diagnose d: 0 8:43 AM (H61.322 ) Not Available [facility] 4 02:59:21 Acute myringit is of right ear [id number] 22085 Completed 201912/03/2023 Acute myringit is, right ear; Note: Date Diagnose d: 0 10:14 AM (H73.001 ) Not Available [facility] 4 02:59:21 Otitis externa of bilatera l ears 18131405655 91252 Completed 201912/03/2023 Other otitis externa, bilatera l; Note: Date Diagnose d: 09/07/2019 10:30 AM (H60.8X3 ) Not Available [facility] 4 02:59:24 Candidal otitis externa 52576867 Active 2022 Candidal otitis externa; Note: Date Diagnose d: 3 8:45 AM (B37.84) Candid al otitis externa; Note: Date Diagnose d: 0 9:31 AM (B37.84) ; Start Date : 05/18/19 20 Not Available [facility] 4 02:59:22 Sensorin eural hearing loss of bilatera l ears 397006792 Active 2020 Sensorin eural hearing loss, bilatera l; Note: Date Diagnose d: 1 9:19 AM (H90.3) Not Available [facility] 4 02:59:25 Impacted cerumen of bilatera l ears 47832799280 89093 Active 2019 Impacted cerumen, bilatera l; Note: Date Diagnose d: 0 9:31 AM (H61.23) Not Available [facility] 4 02:59:23 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 24322854302 Active 2019 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 and infectio n, bilatera l; Note: Date Diagnose d: 0 9:37 AM (H61.323 ) Not Available [facility] 4 02:59:24 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 01857992557 03208 Active 2019 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 and infectio n, bilatera l; Note: Date Diagnose d: 0 9:37 AM (H61.323 ) Not Available [facility] 4 02:59:24 Follow-u p visit [...] Date : 10/30/19 20 Not Available [facility] 4 02:59:25 Problem Notes None recorded. Procedures Surgical History Date Name Laterality Status Provider Name and Address Organization Details Recorded Time 07/05/19 25 Cerumen removal with microscope left completed TRACEY KAMINSKI MD [address] [facility],[address], [address], [place] - [facility] 07/03/2024 08:42:44 04/04/20 24 Cerumen removal with microscope left completed TRACEY KAMINSKI MD 100 [facility],[address], [address], [place] - [facility] 04/03/2024 07:34:32 01/04/20 24 Cerumen removal with microscope left completed TRACEY KAMINSKI MD [address] [facility],[address], [address], [place] - [facility] 01/04/2024 09:06:38 10/19/19 24 Cerumen removal with microscope left completed TRACEY KAMINSKI MD [address] [facility],[address], [address], [place] - [facility] 10/19/2023 08:46:23 lithotripsy completed Latha Fu [place] - [facility] [place] 10/19/2023 08:30:53 meatoplasty of external ear completed Latha Fu [facility] 10/19/2023 08:31:07 Imaging Results Imaging Date Name [...] Name and Address Organization Details Recorded Time 620022 cephalexi n monohydra te medicatio n other Not available Not available 09/14/2023 84308 8 RxNorm React ion: unkno wn, unspe cifie d;; Not Available [facility] 4 01:22:48 801816 Substance with sulfonami de structure and antibacte rial mechanism of action (substanc e) medicatio n other Not available Not available 09/14/2023 73910 8003 SNOMED React ion: unkno wn, unspe cifie d;; Not Available [facility] 4 01:22:48 048177 Iodinated contrast media (substanc e) medicatio n Not available Not available Not available 10/19/2023 04993 2003 SNOMED Latha monteiro [facility] 4 08:29:47 Medications Name Sig Start Date Stop Date Status Note LastModified by Organization Details LastModified Time atorvasta tin 40 mg tablet 02/08 completed Medicati on ID: [id number] D uration Value: 90 Brand Name: atorvast [...] mg tablet 04/04 completed Medicati on ID: [id number] B rand Name: senna Se nd Method: E-Prescr ibed Sub s Allowed: subs ELIZABETH Hernandez al Instruct ion: TAKE 2 TABLETS BY MOUTH AT BEDTIME FOR CONSTIPA TION Med icationG enericNa me: senna Not Available Not Available Not Available sucralfat e 100 mg/mL oral suspensio n 04/04 completed Medicati on ID: [id number] B rand Name: sucralfa te Send Method: [...] eye drops 10/18 completed Medicati on ID: [id number] D uration Value: 14 Prescri bed By Name: KELLI Barros nd Name: Ciloxan Send Method: E-Prescr ibed Sub s Allowed: subs ELIZABETH ochoa Instruct ion: 4 drops into affected ear BID X 14 days Med icationG enericNa me: Ciloxan Medicati on ID: [id number] D uration Value: 14 Prescri bed By Name: KELLI Barros nd Name: Ciloxan Send Method: E-Prescr ibed Sub s Allowed: subs ELIZABETH Hernandez al Instruct ion: 4 drops into affected ear BID X 14 days Med icationG enericNa me: Ciloxan Not Available Not Available Not Available ciproflox acin 500 mg tablet 1 tablet by mouth 08/02 completed Medicati on ID: [id number] D uration Value: 10 Prescri bed By [...] layed release 04/04 completed Medicati on ID: [id number] B rand Name: pantopra zole Sen d Method: E-Prescr ibed Sub s Allowed: subs OK Medic ationGen ericName : pantopra zole Not Available Not Available Not Available clotrimaz ole-betam ethasone 1 %-0.05 % topical cream Apply 1 a small amount to affected area three times a day 10/18 completed Medicati on ID: [id number] D uration Value: 14 Prescri bed By Name: Musa Ramirez nd Name: clotrima zole-bet amethaso ne Send Method: E-Prescr ibed Sub s Allowed: subs OK Speci al Instruct ion: Apply with fingerti p to external ear Medi cationGe nericNam e: clotrima zole-bet amethaso ne Medic ation ID: [id number] D uration Value: 14 Prescri bed By Name: Musa Ramirez nd Name: clotrima zole-bet amethaso ne Send Method: E-Prescr ibed Sub s Allowed: subs OK Speci al Instruct ion: Apply with fingerti p to external ear Medi cationGe nericNam e: clotrima zole-bet reyo ne Not Available Not Available Not Available clotrimaz ole 1 % topical solution 10/18 completed Medicati on ID: [id number] D uration Value: 14 Brand Name: clotrima zole Sen d Method: E-Prescr ibed Sub s Allowed: subs OK Speci al Instruct ion: 4 drops to affected ear three times a day Medi cationGe nericNam e: clotrima zole Med ication ID: [id number] D uration Value: 14 Brand Name: clotrima [...] affected area 10/18 completed Medicati on ID: [id number] D uration Value: 14 Brand Name: mupiroci n Send Method: E-Prescr ibed Sub s Allowed: subs OK Medic ationGen ericName : mupiroci n Medica tion ID: [id number] D uration Value: 14 Brand Name: mupiroci n Send Method: E-Prescr ibed Sub s Allowed: subs OK Medic ationGen ericName : mupiroci n Not Available Not Available Not Available cefuroxim e axetil 500 mg tablet 1 tablet by mouth 10/18 completed Medicati on ID: [id number] D uration Value: 14 Brand Name: cefuroxi me axetil S end Method: E-Prescr ibed Sub s Allowed: subs OK Medic ationGen ericName : cefuroxi me axetil M eddyo n ID: [id number] D uration Value: 14 Brand Name: cefuroxi me axetil S end Method: E-Prescr ibed Sub s Allowed: subs OK Medic ationGen ericName : cefuroxi me axetil Not Available Not Available Not Available multivita min capsule 2019 active Medicati on ID: [id number] B rand Name: multivit anderson Sen d [...] by mouth 10/18 completed Medicati on ID: [id number] D uration Value: 3 Brand Name: oxycodon e Send Method: E-Prescr ibed Sub s Allowed: subs OK Medic ationGen ericName : oxycodon e Medica tion ID: [id number] D uration Value: 3 Brand Name: oxycodon e Send Method: E-Prescr ibed Sub s Allowed: subs OK Medic ationGen ericName : oxycodon e Not Available Not Available Not Available neomycin 3.5 mg/g-poly myxin B 10,000 unit/g-de xameth 0.1 % eye oint 10/25 completed Medicati on ID: [id number] P yady d By Name: Musa Ramirez nd Name: neomycin -polymyx in B-dexame th Send Method: E-Prescr ibed Sub s Allowed: subs OK Speci al Instruct ion: apply to both ear canals TID Medi cationGe nericNam e: neomycin -polymyx in B-dexame th Not Available Not Available Not Available Ciprodex 0.3 %-0.1 % ear drops,luiz pension 4 drop 10/18 completed Medicati on ID: [id number] D uration Value: 14 Brand Name: Ciprodex Send Method: E-Prescr ibed Sub s Allowed: subs OK Medic ationGen ericName : Ciprodex Medicat ion ID: [id number] D uration Value: 14 Brand Name: Ciprodex [...] topical ointment 10/18 completed Medicati on ID: [id number] D uration Value: 30 Brand Name: Cortispo rin Send Method: E-Prescr ibed Sub s Allowed: subs OK Speci al Instruct ion: apply to bith ears canals three times a day Medi cationGe nericNam e: Cortispo rin Medi cation ID: [id number] D uration Value: 30 Brand Name: Cortispo [...] Note [id number] TRACEY KAMINSKI MD [facility] [address] [address] 10/19/2023 08:21:18 10/21/2023 12:28:05 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 [id number] 016033 H61.322 The right external auditory canal remains [...] on. Impacted c erumen in left ear 1684109532 536046 H61.22 [id number] TRACEY KAMINSKI MD [facility] [address] [address] 01/04/2024 08:33:56 01/04/2024 09:08:18 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 7450199895 559959 H61.322 The right external auditory canal remains [...] on. Impacted c erumen in left ear 2917969609 694603 H61.22 [id number] TRACEY KAMINSKI MD [facility] [address] [address] 04/04/2024 07:58:18 04/04/2024 08:33:09 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 2189720889 722036 H61.322 The right external auditory canal remains [...] be having her follow-up with a physician information assistant going forward for cerumen removal. She is always welcome to come back to see me if she wants to proceed with left-sided meatoplast y. Impacted c erumen in left ear 3005071538 987419 H61.22 [id number] TRACEY KAMINSKI MD [facility] [address] [address] 07/04/2024 08:23:56 07/04/2024 08:48:02 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 0374263893 191929 H61.322 The right external auditory canal remains [...] for next disimpacti on with a physician information assistant which we will do going forward for cerumen removal. She is always welcome to come back to see me if she wants to proceed with left-sided meatoplast y. Impacted c erumen in left ear 0729029233 884746 H61.22 Health Concerns Section Related Observation LastModified by Organization Detai ls LastModified Time None Recorded Concern Status LastModified by Organization Details LastModified Time None Recorded Advance Directives Directive None Recorded Payers Encounter Date Sequence Insurance Name Policy Number Policy Chi Covered Member ID Chi Member ID Guarantor Name 10/19/2023 1 [place]: [employer] Maureen J Kurdziel [id number] Maureen Francisco Javier Kurdziel 10/19/2023 2 UNICARE - SENIOR SERVICES PLAN F (MEDICARE SUPPLEMENT) [id number] Maureen Francisco Javier Thomasdziel [id number] Maureen J Kurdziel 01/04/2024 1 [place] [employer] Maureen Francisco Javier Williamdziel [id number] 22 Maureen Francisco Javier Kurdziel 01/04/2024 2 [employer] - SENIOR SERVICES PLAN F (MEDICARE SUPPLEMENT) [id number] Maureen Francisco Javier Williamdziel [id number] Maureen Francisco Javier Kurdziel 04/04/2024 2 UNICARE - GIC INDEMNITY PLAN (MEDICARE SUPPLEMENT) [id number] Maureen Francisco Javier Williamdziel [id number] Maureen Francisco Javier Kurdziel 04/04/2024 1 MEDICARE B-[place]: [facility] GOVERNMENT SERVICES Maureen Francisco Javier Williamdziel [id number] 22 Maureen Francisco Javier Kurdziel 07/04/2024 2 UNICARE - GIC INDEMNITY PLAN (MEDICARE SUPPLEMENT) [id number] Maureen Francisco Javier Williamdziel [id number] Maureen Francisco Javier Kurdziel 07/04/2024 1 MEDICARE B-[place]: [facility] SERVICES [place]en Francisco Javier Thomasdziel [id number] 2 [id number] 22 Maureen Francisco Javier Williamdzeyadel Notes Date [...] accompanied by difficulty hearing. TRACEY KAMINSKI MD [address] [place] [address], [address], [facility] - [facility] 10/19/2023 08:51:52 01/04/2024 text/html 83-year-old markus flores presents for cerumen removal. She has a history of bilateral external auditory canals stenosis. Meatoplasty done in 2020 on the right side with resulting resolution of the stenosis on the right. She reports the right ear is feeling great. Recent blockage sensation on the left accompanied by difficulty hearing. TRACEY KAMINSKI MD [address] [facility],[address], [address], [facility] 01/04/2024 09:08:08 04/04/2024 text/html 83-year-old femlolita flores presents for cerumen removal. She has a history of bilateral external auditory canals stenosis. Meatoplasty done in 2020 on the right side with resulting resolution of the stenosis on the right. She reports the right ear is feeling great. Recent blockage sensation on the left accompanied by difficulty hearing. TRACEY KAMINSKI MD [address] [facility],[address], [address], [facility] 04/04/2024 08:38:51 07/04/2024 text/html 83-year-old markus flores presents for cerumen removal. She has a history of bilateral external auditory canals stenosis. Meatoplasty done in 2020 on the right side with resulting resolution of the stenosis on the right. She reports the right ear is feeling great. Recent blockage sensation on the left accompanied by difficulty hearing. TRACEY KAMINSKI MD [address] [facility],[address], [address], [facility] [facility] 07/04/2024 08:48:40 OBGyn Episode No OBEpisode recorded.
[2024-08-31 11:23] LABS: Alanine Aminotransferase 27 U/L (0-31); Alkaline Phosphatase 89 U/L (39-117); Aspartate Amino Transferase 34 U/L (5-31); Bilirubin Direct 0.3 mg/dL (0.0-0.5); Bilirubin Total 0.7 mg/dL (0.0-1.0); Cholesterol 183 mg/dL (<200); HDL Cholesterol 95 mg/dL (>40); LDL Cholesterol Calculated 82 mg/dL (<100); Potassium 3.8 mmol/L (3.3-5.1); Total Protein 6.4 g/dL (6.5-8.0); Triglycerides 32 mg/dL (<150)
[2024-08-31 12:09] LABS: Reflex LDLD? No
== END 2024-08-31 10:00 | disposition home or self-care (01) ==
LOC: HO.LNP 09:59
PROVIDERS: Visit Provider Internal Medicine
DX: E78.00 Pure hypercholesterolemia, unspecified (principal); E87.6 Hypokalemia
CPT/HCPCS: 80061; 80076; 84132

== ENCOUNTER 2024-09-07 10:15 | Outpatient (AMB) | payer MEDICARE, OTHER, SELFPAY ==
--- NOTE | 2024-09-07 10:35 | A.OFFVIS_ITS ---
VS Expanded 09/07/24 10:36 Height 5 ft 8 in Weight 120 lb 5.958 oz BMI 18.3 Intake Visit Reasons: Unintentional weight loss Allergies cephalexin [From KEFLEX] Allergy (Severe, Verified 08/22/24 08:52) RASH Sulfa (Sulfonamide Antibiotics) [SULFA (SULFONAMIDE ANTIBIOTICS)] Allergy (Severe, Verified 08/22/24 08:52) INTSERNAL AND EXTERNAL RASH/INFECTION Iodinated Contrast Media [IV Dye, Iodine Containing] Allergy (Intermediate, Verified 08/22/24 08:52) HIVES,REDNESS + SWELLING sulfamethoxazole [From BACTRIM] Allergy (Intermediate, Verified 08/22/24 08:52) INTERNAL AND EXTERNAL RASH/ INFECTION stent Allergy (Uncoded 08/22/24 08:52) Vomiting Nutrition Presentation Details: Pt presents for MNT f/u for weight loss Pt increasing and trying new foods, reports tolerating well notices increased belching with dairy foods therefore tries to avoid as much as possible did well with Easter meal/celebration BS Monitoring Most Recent Diabetes Results: Cholesterol 183 mg/dL (<200) 08/31/24 HDL Cholesterol 95 mg/dL (>40) 08/31/24 Triglycerides 32 mg/dL (<150) 08/31/24 Creatinine 0.56 mg/dL (0.5-1.4) 08/03/24 Blood Urea Nitrogen 19 mg/dL (9-16) H 08/03/24 Sodium 142 mmol/L (135-145) 08/03/24 Potassium 3.8 mmol/L (3.3-5.1) 08/31/24 Chloride 110 mmol/L (96-108) H 08/03/24 Carbon Dioxide 25 mmol/L (22-29) 08/03/24 Calcium 9.4 mg/dL (8.4-10.2) 08/03/24 AST 34 U/L (5-31) H 08/31/24 ALT 27 U/L (0-31) 08/31/24 Total Protein 6.4 g/dL (6.5-8.0) L 08/31/24 Albumin 4.0 g/dL (3.5-5.0) 08/31/24 [facility] Medical History (Reviewed 08/22/24 @ 08:53 by Preet Esteban [facility]) Transaminitis Chronic leukopenia Erosive esophagitis Kidney stone GERD (gastroesophageal reflux disease) High cholesterol HTN (hypertension) Surgical History H/O lithotripsy H/O esophagogastroduodenoscopy (07/09/23) Social History Alcohol intake: never Patient Tobacco Use Status: Never used Tobacco Advance Directives Date on File: 09/22/23 service: No Current occupational status: retired Current occupational exposures/hazards: No Assessment & Plan Assessment & Plan (1) Weight loss, unintentional: Code(s): R63.4 - Abnormal weight loss Category: Medical Plan: Have a combination of protein food/whole grain starches Caution with high salt foods wt : 51 (01/2024) , 52 kg (04/25), 55kg(05/27), 54 kg (07/25) est kcal needs (kg BW x 30) : 1600 est protein 1- 1.2 g/kg bw: 52- 62 est fluid needs as per 30 x kg BW: 1600 Patient Instructions: Include lean protein in your meals (poultry, eggs,lean beef Caution with butter/pastries/cheese/dairy ; Have juice or non dairy alternatives beverages with meals/snacks Coding Level of Care Code Nutr Indiv Subseq (31933) Diagnoses Weight loss, unintentional R63.4 Time Spent (min) 24
[2024-09-07 10:36] VITALS: BMI 18.3
--- OUTSIDE RECORDS SUMMARY | 2024-09-07 11:25 | XMS_ITS ---
Author Organization Alton Durham MD Address [address] [place] [phone] Care Team Providers Care Credit Collections Rep Name Role Zahra JeimyAlton staley Primary Care Provider REASON FOR VISIT Thyroid US due Encounters Encounter Location Date Provider Diagnosis Alton Durham MD [address] [place] [phone] 08/11/2024 Alton Durham Thyroid nodule E04.1 Assessments [...] 03/09/2025 07:45:00 AM, [address], [address] [place] [address] [place], [phone], Provider Name:Alton Joiner delano, 03/16/2025 08:00:00 AM, [address] [facility], [address], [place], [place], [phone], Progress Notes * Maureen WHITE JDOB: (84 yo F)Acc No.[id number]:08/11/2024 Patient:?Maureen WHITE J :1940???Age:84 Y???Sex:Female Address:[address] [place] [id number] Subjective: * Chief Complaints: * ???Thyroid US due * Medical History:? * Surgical History:? * Hospitalization/Major Diagno stic Procedure:? * Medications:? Objective: * Vitals:? * Physical Examination:? Assessment: * Assessment: 1.?Thyroid nodule - E04.1??? Plan: * Treatment: * Procedure Codes:? * true * Date:? Generated for Nando baldwin/Douglas/eTransmitting on:?09/07/2024 11:24 AM EDT
--- OUTSIDE RECORDS SUMMARY | 2024-09-07 11:25 | XMS_ITS ---
Author Organization Alton Durham MD Address [address] [place], [place] [phone] Care Team Providers Care Outsole Cementer Name Role Phone JeimyAlton staley Primary Care Provider Results Component Value Reference Range Notes Liver Panel Reviewed date:08/31/2024 05:02:52 PM Interpretation: Performing Lab:[facility], [address] [place] [phone] Notes/Report: Bilirubin Total 0.7 0.0-1.0 mg/dL Bilirubin Direct 0.3 0.0-0.5 mg/dL Aspartate Amino Transferase 34 5-31 U/L Alanine Aminotransferase 27 0-31 U/L Total Protein 6.4 6.5-8.0 g/dL Albumin Level 4.0 3.5-5.0 g/dL Alkaline Phosphatase 89 39-117 U/L Potassium Reviewed date:08/31/2024 05:00:46 PM Interpretation: Performing Lab:[facility], [address] [place] [phone] Notes/Report: Potassium 3.8 3.3-5.1 mmol/L Lipid Panel with Reflex Reviewed date:08/31/2024 05:02:44 PM Interpretation: Performing Lab:[facility], [address] [facility], [place] [phone] Notes/Report: Triglycerides 32 <150 mg/dL Desirable Triglyceride: [...] Location Date Provider Diagnosis Alton Durham MD [address] [place] [address] [address] [place], [place] [phone] 08/31/2024 Alton Durham Elevated cholesterol E78.00 ; AA (alcohol abuse) 305.00 and Hypokalemia E87.6 Assessments Encounter Date Diagnosis (ICD Code) Assessment Notes Treatment Notes Treatment Clinical Notes Section Notes 08/31/2024 Elevated cholesterol (ICD-10 - E78.00) 08/31/2024 AA (alcohol abuse) (ICD9-CM - 305.00) 08/31/2024 Hypokalemia (ICD-10 - E87.6) Plan Of Treatment Next Appt Details Provider Name:Alton wick, 03/09/2025 07:45:00 AM, [address] [place] [address], [address] [facility], [place], [place], [phone], Provider Name:Alton wick, 03/16/2025 08:00:00 AM, [address] [place] [address], [place] [address], [place], [place], [phone], Progress Notes * Maureen WHITE JDOB: (84 yo F)Acc No.[id number]:08/31/2024 Progress Note Patient:?CHRISTOPHER Maureen J Provider:?Altno Durham MD :1940???Age:84 Y???Sex:Female D ate:08/31/2024 Address:[address] [place], [place] [phone] Subjective: * Chief Complaints: * ???1. Fasting lipids. * Medical History:? * Medications:?Taking Sucralfa te 1 GM/10ML Suspension 10 mL 1 hour [...] Orally 3 times per day Objective: * Vitals:? Assessment: * Assessment: 1.?Elevated cholesterol - E7 8.00 (Primary)???2.?AA (alcohol abuse) - 305.00???3.?Hypokalemia - E87.6??? Plan: * Treatment: 2.?Hypokalemia?LAB: Potassium (Collection Date & Time - 08/31/2024 07:00 AM) * Procedure Codes:?93765 VENIP UNCT, ROUTINE* * * The named appointment provid er may or may not be the originator of this progress note, and it is not deemed complete until electronically signed by the appointment provider. Sign off status: Pending * Provider:?Alton Durham MD Date:?0 08/31/2024 Generated for Nando baldwin/Douglas/Mary Ellen on:?09/07/2024 11:25 AM EDT
--- OUTSIDE RECORDS SUMMARY | 2024-09-07 11:25 | XMS_ITS | Data Portability ---
Author Organization [place] - [facility], Allergy Address [address] [address] Care Team Providers Care Gang Pusher Name Role Phone GRAHAM HARGROVE Primary Care [...] Recorded Time Impacted cerumen in left ear [id number] 72548 Active 2019 Impacted cerumen, left ear; Note: Date Diagnose d: 0 9:06 AM (H61.22) Not Available [facility] 4 02:59:24 Bilatera l diffuse otitis externa [id number] Completed 201912/03/2023 Diffuse otitis externa, bilatera l; Note: Changed from H60.312 to H60.313 ( 0 9:01 AM) , Date Diagnose d: 0 11:52 AM (H60.312 ) Not Available [facility] 4 02:59:21 Cellulit is of both external ears [id number] Completed 201912/03/2023 Cellulit is of external ear, bilatera l; Note: Date Diagnose d: 08/10/2019 9:02 AM (H60.13) Not Available [facility] 4 02:59:22 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 [id number] Active 2019 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 and infectio n; Note: Date Diagnose d: 0 8:43 AM (H61.322 ) Not Available [facility] 4 02:59:21 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 [id number] Completed 201912/03/2023 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 and infectio n; Note: Date Diagnose d: 0 8:43 AM (H61.321 ) Not Available [facility] 4 02:59:22 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 [id number] 42698 Active 2019 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 and infectio n; Note: Date Diagnose d: 0 8:43 AM (H61.322 ) Not Available [facility] 4 02:59:21 Acute myringit is of right ear [id number] 29779 Completed 201912/03/2023 Acute myringit is, right ear; Note: Date Diagnose d: 0 10:14 AM (H73.001 ) Not Available [facility] 4 02:59:21 Otitis externa of bilatera l ears 10610642691 11527 Completed 201912/03/2023 Other otitis externa, bilatera l; Note: Date Diagnose d: 09/07/2019 10:30 AM (H60.8X3 ) Not Available [facility] 4 02:59:24 Candidal otitis externa 50982685 Active 2022 Candidal otitis externa; Note: Date Diagnose d: 3 8:45 AM (B37.84) Candid al otitis externa; Note: Date Diagnose d: 0 9:31 AM (B37.84) ; Start Date : 05/18/19 20 Not Available [facility] 4 02:59:22 Sensorin eural hearing loss of bilatera l ears 250114679 Active 2020 Sensorin eural hearing loss, bilatera l; Note: Date Diagnose d: 1 9:19 AM (H90.3) Not Available [facility] 4 02:59:25 Impacted cerumen of bilatera l ears 09714195644 73535 Active 2019 Impacted cerumen, bilatera l; Note: Date Diagnose d: 0 9:31 AM (H61.23) Not Available [facility] 4 02:59:23 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 20825884124 Active 2019 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 Procedures Surgical History Date Name Laterality Status Provider Name and Address Organization Details Recorded Time 07/05/19 25 Cerumen removal with microscope left completed TRACEY KAMINSKI MD [address] [facility],[address], [address], [place] - [facility] 07/03/2024 08:42:44 04/04/20 24 Cerumen removal with microscope left completed TRACEY KAMINSKI MD 100 [facility],[address], [address], [place] - [facility] 04/03/2024 07:34:32 01/04/20 24 Cerumen removal with microscope left completed TRACEY KAMINSKI MD [address] [facility],[address], [address], [place] - [facility] 01/04/2024 09:06:38 10/19/19 24 Cerumen removal with microscope left completed TRACEY KAMINSKI MD [address] [facility],[address], [address], [place] - [facility] 10/19/2023 08:46:23 lithotripsy completed Latha Fu [place] [facility] 10/19/2023 08:30:53 meatoplasty of external ear completed Latha Fu [facility] 10/19/2023 08:31:07 Imaging Results Imaging Date [...] Name and Address Organization Details Recorded Time 527194 cephalexi n monohydra te medicatio n other Not available Not available 09/14/2023 51301 8 RxNorm React ion: unkno wn, unspe cifie d;; Not Available [facility] 4 01:22:48 678312 Substance with sulfonami de structure and antibacte rial mechanism of action (substanc e) medicatio n other Not available Not available 09/14/2023 89317 8003 SNOMED React ion: unkno wn, unspe cifie d;; Not Available [facility] 4 01:22:48 978689 Iodinated contrast media (substanc e) medicatio n Not available Not available Not available 10/19/2023 52005 2003 SNOMED Latha monteiro [facility] 4 08:29:47 Medications Name Sig Start Date Stop Date Status Note LastModified by Organization Details LastModified Time atorvasta tin 40 mg tablet 02/08 completed Medicati on ID: [id number] D uration Value: 90 Brand Name: atorvast [...] mg tablet 04/04 completed Medicati on ID: [id number] B rand Name: senna Se nd Method: E-Prescr ibed Sub s Allowed: subs ELIZABETH Hernandez al Instruct ion: TAKE 2 TABLETS BY MOUTH AT BEDTIME FOR CONSTIPA TION Med icationG enericNa me: senna Not Available Not Available Not Available sucralfat e 100 mg/mL oral suspensio n 04/04 completed Medicati on ID: [id number] B rand Name: sucralfa te Send Method: [...] eye drops 10/18 completed Medicati on ID: [id number] D uration Value: 14 Prescri bed By Name: KELLI Barros nd Name: Ciloxan Send Method: E-Prescr ibed Sub s Allowed: subs ELIZABETH ochoa Instruct ion: 4 drops into affected ear BID X 14 days Med icationG enericNa me: Ciloxan Medicati on ID: [id number] D uration Value: 14 Prescri bed By Name: KELLI Barros nd Name: Ciloxan Send Method: E-Prescr ibed Sub s Allowed: subs ELIZABETH eHrnandez al Instruct ion: 4 drops into affected ear BID X 14 days Med icationG enericNa me: Ciloxan Not Available Not Available Not Available ciproflox acin 500 mg tablet 1 tablet by mouth 08/02 completed Medicati on ID: [id number] D uration Value: 10 Prescri bed By [...] layed release 04/04 completed Medicati on ID: [id number] B rand Name: pantopra zole Sen d Method: E-Prescr ibed Sub s Allowed: subs OK Medic ationGen ericName : pantopra zole Not Available Not Available Not Available clotrimaz ole-betam ethasone 1 %-0.05 % topical cream Apply 1 a small amount to affected area three times a day 10/18 completed Medicati on ID: [id number] D uration Value: 14 Prescri bed By Name: Musa Ramirez nd Name: clotrima zole-bet amethaso ne Send Method: E-Prescr ibed Sub s Allowed: subs OK Speci al Instruct ion: Apply with fingerti p to external ear Medi cationGe nericNam e: clotrima zole-bet amethaso ne Medic ation ID: [id number] D uration Value: 14 Prescri bed By Name: Musa Ramirez nd Name: clotrima zole-bet amethaso ne Send Method: E-Prescr ibed Sub s Allowed: subs OK Speci al Instruct ion: Apply with fingerti p to external ear Medi cationGe nericNam e: clotrima zole-bet reyo ne Not Available Not Available Not Available clotrimaz ole 1 % topical solution 10/18 completed Medicati on ID: [id number] D uration Value: 14 Brand Name: clotrima zole Sen d Method: E-Prescr ibed Sub s Allowed: subs OK Speci al Instruct ion: 4 drops to affected ear three times a day Medi cationGe nericNam e: clotrima zole Med ication ID: [id number] D uration Value: 14 Brand Name: clotrima [...] affected area 10/18 completed Medicati on ID: [id number] D uration Value: 14 Brand Name: mupiroci n Send Method: E-Prescr ibed Sub s Allowed: subs OK Medic ationGen ericName : mupiroci n Medica tion ID: [id number] D uration Value: 14 Brand Name: mupiroci n Send Method: E-Prescr ibed Sub s Allowed: subs OK Medic ationGen ericName : mupiroci n Not Available Not Available Not Available cefuroxim e axetil 500 mg tablet 1 tablet by mouth 10/18 completed Medicati on ID: [id number] D uration Value: 14 Brand Name: cefuroxi me axetil S end Method: E-Prescr ibed Sub s Allowed: subs OK Medic ationGen ericName : cefuroxi me axetil M eddyo n ID: [id number] D uration Value: 14 Brand Name: cefuroxi me axetil S end Method: E-Prescr ibed Sub s Allowed: subs OK Medic ationGen ericName : cefuroxi me axetil Not Available Not Available Not Available multivita min capsule 2019 active Medicati on ID: [id number] B rand Name: multivit naderson Sen d Method: E-Prescr ibed Sub s [...] by mouth 10/18 completed Medicati on ID: [id number] D uration Value: 3 Brand Name: oxycodon e Send Method: E-Prescr ibed Sub s Allowed: subs OK Medic ationGen ericName : oxycodon e Medica tion ID: [id number] D uration Value: 3 Brand Name: oxycodon e Send Method: E-Prescr ibed Sub s Allowed: subs OK Medic ationGen ericName : oxycodon e Not Available Not Available Not Available neomycin 3.5 mg/g-poly myxin B 10,000 unit/g-de xameth 0.1 % eye oint 10/25 completed Medicati on ID: [id number] P yady d By Name: Musa Ramirez nd Name: neomycin -polymyx in B-dexame th Send Method: E-Prescr ibed Sub s Allowed: subs OK Speci al Instruct ion: apply to both ear canals TID Medi cationGe nericNam e: neomycin -polymyx in B-dexame th Not Available Not Available Not Available Ciprodex 0.3 %-0.1 % ear drops,luiz pension 4 drop 10/18 completed Medicati on ID: [id number] D uration Value: 14 Brand Name: Ciprodex Send Method: E-Prescr ibed Sub s Allowed: subs OK Medic ationGen ericName : Ciprodex Medicat ion ID: [id number] D uration Value: 14 Brand Name: Ciprodex [...] topical ointment 10/18 completed Medicati on ID: [id number] D uration Value: 30 Brand Name: Cortispo rin Send Method: E-Prescr ibed Sub s Allowed: subs OK Speci al Instruct ion: apply to bith ears canals three times a day Medi cationGe nericNam e: Cortispo rin Medi cation ID: [id number] D uration Value: 30 Brand Name: Cortispo [...] Note [id number] TRACEY KAMINSKI MD [facility] [address] [address] 10/19/2023 08:21:18 10/21/2023 12:28:05 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 Impacted c erumen in left ear 3358121421 421529 H61.22 [id number] TRACEY KAMINSKI MD [facility] [address] [address] 01/04/2024 08:33:56 01/04/2024 09:08:18 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 1325175720 100487 H61.322 The right external auditory canal remains [...] on. 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 She is always welcome to come back to see me if she wants to proceed with left-sided meatoplast y. 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 She is always welcome to come back to see me if she wants to proceed with left-sided meatoplast y. Impacted c erumen in left ear [id number] 779231 H61.22 Health Concerns Section Related Observation LastModified by Organization Sejalai ls LastModified Time None Recorded Concern Status LastModified by Organization Details LastModified Time None Recorded Advance Directives Directive None Recorded Payers Insurance Date Sequence Insurance Name Policy Number Policy Chi Covered Member ID Chi Member ID Guarantor Name 08/07/2024 2 [facility] [place] INDEMNITY PLAN (MEDICARE SUPPLEMENT) [id number] Maureen Foreman [id number] Maureen Foreman 07/04/2024 1 [place]IC[place]: [employer] Maureen Foreman [id number] Maureen Foreman 08/07/2024 2 [facility]IOR [facility] PLAN F (MEDICARE SUPPLEMENT) [id number] Maureen Foreman [id number] Maureen Foerman Notes Date Note Type Note Provider Name [...] hearing. TRACEY KAMINSKI MD 100 [facility],[address], [address], [facility] 10/19/2023 08:51:52 01/04/2024 text/html 83-year-old markus flores presents for cerumen removal. She has a history of bilateral external auditory canals stenosis. Meatoplasty done in 2019 on the right side with resulting resolution of the stenosis on the right. She reports the right ear is feeling great. Recent blockage sensation on the left accompanied by difficulty hearing. TRACEY KAMINSKI MD 100 [facility],[address], [address], [facility] 01/04/2024 09:08:08 04/04/2024 text/html 83-year-old markus flores presents for cerumen removal. She has a history of bilateral external auditory canals stenosis. Meatoplasty done in 2019 on the right side with resulting resolution of the stenosis on the right. She reports the right ear is feeling great. Recent blockage sensation on the left accompanied by difficulty hearing. TRACEY KAMINSKI MD [address] [facility],[address], [address], [facility] 04/04/2024 08:38:51 07/04/2024 text/html 83-year-old markus flores presents for cerumen removal. She has a history of bilateral external auditory canals stenosis. Meatoplasty done in 2019 on the right side with resulting resolution of the stenosis on the right. She reports the right ear is feeling great. Recent blockage sensation on the left accompanied by difficulty hearing. TRACEY KAMINSKI MD [address] [place] [address], [place], [address], [facility] - [facility] 07/04/2024 08:48:40 OBGyn Episode No OBEpisode recorded.
--- OUTSIDE RECORDS SUMMARY | 2024-09-07 11:25 | XMS_ITS | Patient Health Record ---
Author Organization Alton Durham MD Address [address] [place] [phone] Care Team Providers Care After School Program Coordinator Name Role Phone Alton Durham Primary Care Provider Allergies Allergen (clinical drug ingredient) Drug/Non Drug Allergy documented on EMR Reaction Allergy Type Onset Date Status Keflex rash Drug Allergy Active ciprofloxacin Cipro rash and myalgia Drug Allergy Active sulfamethoxazole / trimethoprim Bactrim hives over entire body Drug Allergy Active ivp dye (uncoded) rash Allergy Ac tive Results Component Value Reference Range Notes Potassium Reviewed date:10/21/2023 05:06:20 PM Interpretation: Performing Lab:[facility], [address] [place] [phone] Notes/Report: Potassium 2.8 3.3-5.1 mmol/L Critical value for test(s): POTS Results called to and read back by: YOSELYN Cotton Person calling:SHAMA Date: 10/21/23 Time: 1124 Potassium Reviewed date:10/26/2023 08:42:40 AM Interpretation: Performing Lab:[facility], [address] [place] [phone] Notes/Report: Potassium 3.4 3.3-5.1 mmol/L Potassium Reviewed date:11/01/2023 12:24:52 PM Interpretation: Performing Lab:[facility], [address] [place] [phone] Notes/Report: Potassium 3.7 3.3-5.1 mmol/L Potassium Reviewed date:11/25/2023 12:21:33 PM Interpretation: Performing Lab:[facility], [address] [place] [phone] Notes/Report: Potassium 3.9 3.3-5.1 mmol/L Potassium Reviewed date:01/14/2024 09:08:52 AM Interpretation: Performing Lab:[facility], [address] [place] [phone] Notes/Report: Potassium 3.6 3.3-5.1 mmol/L Slight Hemoly sis Potassium Reviewed date:02/03/2024 12:32:20 PM Interpretation: Performing Lab:[facility], [address] [place] [phone] Notes/Report: Potassium 4.2 3.3-5.1 mmol/L Slight Hemoly sis Complete Blood Count Auto Di ff Reviewed date:03/14/2024 09:33:06 AM Interpretation:see back 03-14-2024 Performing Lab:[facility], [address] [place] [phone] Notes/Report: White Blood Count 2.5 4.8-10.8 X10*3/uL [...] NRBC Abs Auto 0.000 0.0-0.012 X10*3/uL Comprehensive [place]. Panel Fa st Reviewed date:03/07/2024 04:52:00 PM Interpretation: Performing Lab:[facility], [address] [place] [phone] Notes/Report: Sodium 141 135-145 mmol/L Potassium 3.9 3.3-5.1 mmol/L Slight Hemolysis.Interpret result with caution. Chloride 104 96-108 mmol/L Carbon Dioxide 27 22-29 mmol/L Anion Gap 14 12-20 Blood Urea Nitrogen 23 9-16 mg/dL Creatinine 0.64 0.5-1.4 mg/dL Estimated Glomerular Filt Rate > 60 NOTE: For -Welsh individuals, multiply the result by 1.210. Chronic [...] Panel Reviewed date:03/07/2024 04:52:17 PM Interpretation: Performing Lab:[facility], [address] [place] [phone] Notes/Report: Triglycerides 63 <150 mg/dL Desirable Triglyceride: [...] t Reviewed date:03/07/2024 04:51:31 PM Interpretation: Performing Lab:[facility], [address] [place] [phone] Notes/Report: Urine, Clean Catch Color Urine Yellow Appearance Urine Clear PH 6.5 5.0-9.0 Glucose Urine UA Negative Negative mg/dL Urine Blood Negative Negative Specific [place] - Urine 1.020 1.005-1.025 Urine Protein 30 [...] ff Reviewed date:04/04/2024 12:44:09 PM Interpretation: Performing Lab:[facility], [address] [place] [phone] Notes/Report: White Blood Count 2.7 4.8-10.8 X10*3/uL [...] Potassium Reviewed date:04/04/2024 12:47:19 PM Interpretation: Performing Lab:[facility], [address] [place] [phone] Notes/Report: Potassium 3.9 3.3-5.1 mmol/L Complete Blood Count Auto Di ff Reviewed date:05/09/2024 12:31:03 PM Interpretation: Performing Lab:[facility], [address] [place] [phone] Notes/Report: White Blood Count 2.8 4.8-10.8 X10*3/uL [...] Potassium Reviewed date:05/09/2024 12:25:38 PM Interpretation: Performing Lab:[address] [phone] Notes/Report: Potassium 3.9 3.3-5.1 mmol/L Liver Panel Reviewed date:08/31/2024 05:02:52 PM Interpretation: Performing Lab:[address] [phone] Notes/Report: Bilirubin Total 0.7 0.0-1.0 mg/dL Bilirubin Direct 0.3 0.0-0.5 mg/dL Aspartate Amino Transferase 34 5-31 U/L Alanine Aminotransferase 27 0-31 U/L Total Protein 6.4 6.5-8.0 g/dL Albumin Level 4.0 3.5-5.0 g/dL Alkaline Phosphatase 89 39-117 U/L Potassium Reviewed date:08/31/2024 05:00:46 PM Interpretation: Performing Lab:[facility], [address] [place] [phone] Notes/Report: Potassium 3.8 3.3-5.1 mmol/L Lipid Panel with Reflex Reviewed date:08/31/2024 05:02:44 PM Interpretation: Performing Lab:[facility], [address] [place] [phone] Notes/Report: Triglycerides 32 <150 mg/dL Desirable Triglyceride: [...] in patients with liver disease. Potassium Reviewed date:11/11/2023 04:20:21 PM Interpretation: Performing Lab:[facility], [address] [place] [phone] Notes/Report: Potassium 4.4 3.3-5.1 mmol/L Potassium Reviewed date:12/13/2023 12:39:37 PM Interpretation: Performing Lab:[facility], [address] [place] [phone] Notes/Report: Potassium 4.0 3.3-5.1 mmol/L Occult Blood, Stool, Guaiac Reviewed date:03/14/2024 11:14:45 AM Interpretation:Negative Performing Lab: Notes/Report: Negative Occult Blood, Stool, Guaiac Neg CT chest wo con Reviewed date:10/12/2023 01:11:48 PM Interpretation: Performing Lab: Notes/Report: [address] [address] [address] Scan Report Signed Patient: Maureen Foreman MR#: [id number] : 1940 Acct:[id number] Age/Sex: 83 / F ADM Date: 09/16/23 Loc: HO.CT Attending Dr: Alton Durham MD Ordering Physician: Alton Durham MD Date of Service: 09/16/23 Procedure(s): CT chest wo IV con Accession Number(s): [id number] cc: Alton Durham MD EXAMINATION: CT CHEST [...] FINDINGS: LUNGS: Biapical pleural-parenchymal scarring is present. Nnrb-nh-lzuqilgz emphysematous changes are seen (for example 3 [...] in OV> 10/12/23 0935 DD/ 0837 TD/TT: Edge Baster: [place] [address] CT Scan Report Signed Patient: Maureen Foreman MR#: [id number] : 1940 Acct:[id number] Age/Sex: 83 / F ADM Date: 09/16/23 Loc: HO.CT Attending Dr: Alton Durham MD Ordering Physician: Alton Durham MD Date of Service: 09/16/23 Procedure(s): CT shaunna st wo IV con Accession Number(s): [id number] cc: Alton Durham MD EXAMINATION: CT CHEST [...] FINDINGS: LUNGS: Biapical pleural-parenchymal scarring is present. Ktlb-sk-sodvlosz emphysematous change s are seen (for example [...] in OV> 10/12/23 0935 DD/ 0837 TD/TT: Edge Baster: JOY Complete Blood Count Auto Di ff Reviewed date:09/20/2023 05:22:25 PM Interpretation: Performing Lab:[facility], [address] [place] [phone] Notes/Report: White Blood Count 3.9 4.8-10.8 X10*3/uL [...] Panel Reviewed date:09/18/2023 06:27:11 PM Interpretation: Performing Lab:[address] [phone] Notes/Report: Bilirubin Total 0.8 0.0-1.0 mg/dL Bilirubin Direct 0.3 0.0-0.5 mg/dL Aspartate Amino Transferase 31 5-31 U/L Alanine Aminotransferase 30 0-31 U/L Total Protein 7.0 6.5-8.0 g/dL Albumin Level 4.5 3.5-5.0 g/dL Alkaline Phosphatase 84 39-117 U/L Basic Metabolic Panel Reviewed date:09/18/2023 06:29:52 PM Interpretation: Performing Lab:[address] [address] Notes/Report: Sodium 145 135-145 mmol/L Potassium 3.0 [...] Glomerular Filt Rate > 60 NOTE: For -Welsh individuals, multiply the result by 1.210. Chronic Kidney Disease: Estimated GFR < 60 mL/min/1.73m2 Severe Kidney Disease: Estimated GFR < 15 mL/min/1.73m2 Glucose Random 103 60-115 mg/dL Calcium 10.3 8.4-10.2 mg/dL Lipase Reviewed date:09/18/2023 06:27:01 PM Interpretation: Performing Lab:[facility], [address] [place] [phone] Notes/Report: Lipase 22 8-78 U/L Potassium Reviewed date:09/23/2023 01:05:42 PM Interpretation: Performing Lab:[facility], [address] [place] [phone] Notes/Report: Potassium 3.0 3.3-5.1 mmol/L Slight Hemoly sis Pathology Reviewed date:09/24/2023 10:02:51 AM Interpretation: Performing Lab:[facility], [address] [place] [phone] Notes/Report: --- Name: Maureen Foreman Age/Sex: 83/F : 1940 Unit#: [id number] Attend Dr: Renay Hudson MD Re09/22/23 Status : [facility] [place] [facility] Disch: --- SPEC : [id number] RECD : 09/22/23-1223 STATUS: DEREK LIMA NUM: [id number] ASHLI: 09/22/23-[address]: Renay Hudson MD ENTERED: 09/22/23-12 31 [...] Name: Maureen Foreman Age/Sex: 83/F : 1940 [facility]#: [id number] Unit#: [id number] Attend Dr: Renay Hudson MD Re09/22/23 Status : DE[facility] [place]: [facility] Disch: --- SPEC : [id number] RECD : 09/22/23 STATUS: DEREK LIMA NUM: [id number] ASHLI: 09/22/[address] [facility] [address]: Renay Hudson MD ENTERED: 09/22/23 31 SP TYPE: Surgical OTHR DR: Alton [...] microscopic examination, 1 piece in cassette [facility] Special studies orde red and performed: Immunostain for H. pylori on A1; AB/PAS stains on A1 and C1. Copies To: Alton Durham MD [address] [place] [address] [place] [address] Renay Hudson MD [address] [place] [address] [place] [address] --- Signed (signature on file) Graciela Trevor 09/24/23 0947 --- END OF REPORT Complete Blood Count Auto Di ff Reviewed date:10/05/2023 10:02:29 AM Interpretation: Performing Lab:[facility], [address] [place] [phone] Notes/Report: White Blood Count 3.1 4.8-10.8 X10*3/uL [...] Panel Reviewed date:10/05/2023 09:55:46 AM Interpretation: Performing Lab:[facility], [address] [place] [phone] Notes/Report: Bilirubin Total 0.8 0.0-1.0 mg/dL Bilirubin Direct 0.3 0.0-0.5 mg/dL Aspartate Amino Transferase 34 5-31 U/L Alanine Aminotransferase 31 0-31 U/L Total Protein 7.1 6.5-8.0 g/dL Albumin Level 4.5 3.5-5.0 g/dL Alkaline Phosphatase 77 39-117 U/L Basic Metabolic Panel Reviewed date:10/07/2023 12:46:16 PM Interpretation: Performing Lab:[facility], [address] [place] [phone] Notes/Report: Sodium 147 135-145 mmol/L Potassium 2.9 [...] Glomerular Filt Rate > 60 NOTE: For -Welsh individuals, multiply the result by 1.210. Chronic Kidney Disease: Estimated GFR < 60 mL/min/1.73m2 Severe Kidney Disease: Estimated GFR < 15 mL/min/1.73m2 Glucose Random 92 60-115 mg/dL Calcium 10.8 8.4-10.2 mg/dL Magnesium Reviewed date:10/05/2023 09:55:24 AM Interpretation: Performing Lab:[facility], [address] [place] [address] Notes/Report: Magnesium 1.9 1.6-2.6 mg/dL SLIDE REVIEW Reviewed date:10/05/2023 11:59:08 AM Interpretation: Performing Lab:[facility], [address] [place] [address] Notes/Report: SLIDE REVIEW VERIFIED XR chest 2V Reviewed date:10/05/2023 09:57:27 AM Interpretation: Performing Lab: Notes/Report: [facility] [address] [facility] [place] [address] XRay Report Signed Patient: Maureen Foreman MR#: [id number] : 1940 Acct:[id number] Age/Sex: 83 / F ADM Date: 10/05/23 Loc: .ED Attending Dr: Ordering Physician: Ekaterina Leonardo DO Date of Service: 10/05/23 Procedure(s): XR chest 2V Accession Number(s): [id number] cc: Alton Durham MD; Ekaterina Leonardo DO [...] Kamilla Barber MD in OV> 10/05/23924 DD/ 2 TD/TT: Edge Baster: JV [address] [place] [address] XRay Report Signed Patient: Maureen Foreman MR#: [id number] : 1940 Acct:[id number] Age/Sex: 83 / F ADM Date: 10/05/23 Loc: HO.ED Attending Dr: Ordering Physician: Ekaterina Leonardo DO Date of Service: 10/05/23 Procedure(s): XR shaunna st 2V Accession Number(s): [id number] cc: Alton Durham MD; Ekaterina Leonardo DO [...] Kamilla Barber MD in OV> 10/05/23924 DD/ 2 TD/TT: Edge Baster: JV Potassium Reviewed date:10/14/2023 06:10:12 AM Interpretation: Performing Lab:[facility], [address] [place] [address] Notes/Report: Potassium 3.1 3.3-5.1 mmol/L FL barium swallow Reviewed date:10/22/2023 12:35:07 PM Interpretation: Performing Lab: Notes/Report: [address] [address] Fluoroscopy Report Signed Patient: Maureen Foreman MR#: [id number] : 1940 Acct:[id number] Age/Sex: 83 / F ADM Date: 10/12/23 Loc: HO.XRAY Attending Dr: Julee Asher [facility]- Ordering Physician: Julee Asher Date of Service: 10/12/23 Procedure(s): FL barium swallow Accession Number(s): [id number] cc: Alton Durham MD; Julee Asher ICT ANALYSTDARIUS EXAMINATION: XR FLUOROSCOPY UPPER GI WITH AIR [...] MD in OV> 10/21/231756 DD/ 0858 TD/TT: Edge Baster: [place] [address] Fluoroscopy Report Signed Patient: Maureen Foreman MR#: [id number] : 1940 Acct:[id number] Age/Sex: 83 / F ADM Date: 10/12/23 Loc: HO.XRAY Attending Dr: Julee ANAYA Ordering Physician: Julee Asher Date of Service: 10/12/23 Procedure(s): FL bar ium swallow Accession Number(s): [id number] cc: Alton Durham MD; Julee Asher EXAMINATION: [...] <Electronically signed by Frank Zamora in OV> 10/21/23 1620 <Electronically sign ed by Roberto Huffman MD in OV> 10/21/23 1757 DD/ 0858 TD/TT: Edge Baster: ALISA gastric emptying study Reviewed date:10/18/2023 05:04:10 PM Interpretation: Performing Lab: Notes/Report: [address] [address] Nuclear Medicine Report Signed Patient: Maureen Foreman MR#: [id number] : 1940 Acct:[id number] Age/Sex: 83 / F ADM Date: 10/18/23 Loc: BENJAMIN Attending Dr: Julee Asher ICT ANALYST-DG Ordering Physician: Julee Asher Date of Service: 10/18/23 Procedure(s): NM gastric emptying study Accession Number(s): [id number] cc: Alton Durham MD; Julee Asher-DG EXAMINATION: NM RADIONUCLIDE SOLID FOOD GASTRIC EMPTYING [...] in OV> 10/18/23 1440 DD/ 1215 TD/TT: Edge Baster: [place] [address] Nuclear Medicine Report Signed Patient: Maureen Foreman MR#: [id number] : 1940 Acct:[id number] Age/Sex: 83 / F ADM Date: 10/18/23 Loc: BENJAMIN Attending Dr: Julee ANAYA Ordering Physician: Julee Asher Date of Service: 10/18/23 Procedure(s): NM gastric emptying study Accession Number(s): [id number] cc: Alton Durham MD; Julee Asher EXAMINATION: [...] progressively increasing small bowel activity. By t roxana end of the study, there is almost [...] a normal or abnormal result). Gastric emptying cnitia dy grading per JNMT Consensus Recommendations in 2008 (https://tech.snUltimate Football Networka ls.org/content/36) Grade 1 (mild retention): 11-20% at 4h Grade 2 (moderate retention): 21-35% at 4h Grade 3 (severe retention): 36-50% at 4h Grade 4 (very severe retention): >50% retention at 4h Dictated By: Mary Wiggins MD Signed By: <Electronically signed by Mary Wiggins MD in OV> 10/18/23 1440 DD/ 1215 TD/TT: Edge Baster: KRISTIE WHEELER Reviewed date:01/09/2024 12:30:30 PM Interpretation: Performing Lab: Notes/Report: [place] [address] XRay Report Signed Patient: Maureen Foreman MR#: [id number] : 1940 Acct:[id number] Age/Sex: 83 / F ADM Date: 12/08/23 Loc: CONCHA Attending Dr: Som Mckeon MD Ordering Physician: Som Mckeon MD Date of Service: 12/08/23 Procedure(s): XR KUB Accession Number(s): [id number] cc: Som Mkceon MD; Alton Durham MD EXAMINATION: XR ABDOMEN [...] OV> 01/06/242157 DD/ 1232 TD/TT: 12/08/23 1240 Edge Baster: [place] [address] XRay Report Signed Patient: Maureen Foreman MR#: [id number] : 1940 Acct:[id number] Age/Sex: 83 / F ADM Date: 12/08/23 Loc: HO.KASEYAY Attending Dr: Aneudy Fernández MD Ordering Physician: Som Mckeon MD Date of Service: 12/08/23 Procedure(s): XR KUB Accession Number(s): [id number] cc: Som Mckeon MD; Alton Durham MD [...] OV> 01/06/242157 DD/ 1232 TD/TT: 12/08/23 1240 Edge Baster: JOY XR soft tissue neck Reviewed date:04/17/2024 12:23:13 PM Interpretation: Performing Lab: Notes/Report: [address] [address] XRay Report Signed Patient: Maureen Foreman MR#: [id number] : 1940 Acct:[id number] Age/Sex: 83 / F ADM Date: 03/29/24 Loc: HO.XRSIMON Attending Dr: Julee Asher ICT ANALYST-BC Ordering Physician: Julee Asher Date of Service: 03/29/24 Procedure(s): XR soft tissue neck Accession Number(s): [id number] cc: Alton Durham MD; Julee Asher ICT ANALYST-DG EXAMINATION: XR SOFT TISSUE NECK CLINICAL INDICATION: K22.2 - Esophageal obstruction COMPARISON: CT soft tissue neck 06/19/2023. Ultrasound of the thyroid 07/13/2023. TECHNIQUE: 2 views of the soft tissue neck were obtained. Exam submitted for review 04/17/2024 8:16 AM CHIEF EXECUTIVE OFFICER. FINDINGS: Soft tissue films of the neck [...] by: Roberto Huffman MD 04/17/2024 09:19 AM [facility] Dictated By: Roberto Huffman MD Signed By: <Electronically signed by Roberto Huffman MD in OV> 04/17/24 0919 DD/ 1502 TD/TT: 03/29/24 1510 Edge Baster: [address] [place] [address] XRay Report Signed Patient: Maureen Foreman MR#: [id number] : 1940 Acct:[id number] Age/Sex: 83 / F ADM Date: 03/29/24 Loc: HO.REY Attending Dr: Julee Asher ICT ANALYST-BC Ordering Physician: Julee Asher ICT ANALYST-BC Date of Service: 03/29/24 Procedure(s): XR sof t tissue neck Accession Number(s): [id number] cc: Alton Durham MD; Julee Asher ICT ANALYST-BC EXAMINATION: XR SOFT TISSUE NECK CLINICAL INDICATION: K22.2 - Esophageal obstruction COMPARISON: CT soft tissue neck 06/19/2023. Ultrasound of the thyroid 07/13/2023. TECHNIQUE: 2 views of the soft tissue neck were obtained. Exam submitted for review 04/17/2024 8:16 AM CHIEF EXECUTIVE OFFICER. FINDINGS: Soft tissue films of the neck [...] 04/17/24 0919 DD/ 1502 TD/TT: 03/29/24 1510 Edge Baster: YAS tomosynthesis screening B I Reviewed date:05/05/2024 04:58:08 PM Interpretation: Performing Lab: Notes/Report: [facility] [place] [address] Mammography Report Signed Patient: Maureen Foreman MR#: [id number] : 1940 Acct:[id number] Age/Sex: 83 / F ADM Date: 04/24/24 Loc: MAMMO Attending Dr: Alton Durham MD Ordering Physician: Alton Durham MD Results: 1Ne gative Date of Service: 04/24/24 Follow Up: 1 Year From Orig inal Mammogram Procedure(s): MM tomosynthesis screening BI Accession Number(s): [id number] cc: Alton Durham MD EXAMINATION: MM SCREENING [...] by: Judy Bravo DO 05/05/2024 04:28 PM [facility] Dictated By: Judy Bravo DO Signed By: <Electronically signed by Judy Bravo DO in OV> 05/05/24 1628 DD/ 0800 TD/TT: 04/24/24 0821 Edge Baster: [place] [address] [place] [address] Mammography Report Signed Patient: Maureen Foreman MR#: [id number] : 1940 Acct:[id number] Age/Sex: 83 / F ADM Date: 04/24/24 Loc: MAMMO Attending Dr: Alton Durham MD Ordering Physician: Alton Durham MD Results: 1Ne gative Date of Service: 04/24/24 Follow Up: 1 Year From Orig ina Mammogram Procedure(s): MM tomosynthesis screening BI Accession Number(s): [id number] cc: Alton Durham MD EXAMINATION: MM SCREENING [...] by: Judy Bravo DO 05/05/2024 04:28 PM [facility] Dictated By: Judy Bravo DO Signed By: <Electronically signed by Judy Bravo DO in OV> 05/05/24 1628 DD/ 0800 TD/TT: 04/24/24 0821 Edge Baster: Liver Panel Reviewed date:05/15/2024 02:16:26 PM Interpretation: Performing Lab:[facility], [address] [place] [address] Notes/Report: Bilirubin Total 0.4 0.0-1.0 mg/dL Bilirubin Direct 0.1 0.0-0.5 mg/dL Aspartate Amino Transferase 32 5-31 U/L Alanine Aminotransferase 32 0-31 U/L Total Protein 6.8 6.5-8.0 g/dL Albumin Level 4.2 3.5-5.0 g/dL Alkaline Phosphatase 99 39-117 U/L CT cervical spine wo con Reviewed date:05/18/2024 01:47:30 PM Interpretation: Performing Lab: Notes/Report: [address] [address] [address] Scan Report Signed Patient: Maureen Foreman MR#: [id number] : 1940 Acct:[id number] Age/Sex: 83 / F ADM Date: 05/16/24 Loc: HO.ED Attending Dr: Ordering Physician: Segundo Montague Date of Service: 05/16/24 Procedure(s): CT cervical spine wo IV con Accession Number(s): [id number] cc: Segundo Montague; Alton Durham MD Report Number: [id number]: Total DLP = 214.00 mGy-cm EXAMINATION: CT [...] by: Wilberto Cardoso MD 05/16/2024 12:38 PM [facility] Dictated By: Wilberto Sanches MD Signed By: <Electronically signed by Wilberto Martel MD in OV> 05/16/24 1238 DD/ 1142 TD/TT: 05/16/24 1218 Edge Baster: [place] [address] CT Scan Report Signed Patient: Maureen Foreman MR#: [id number] : 1940 Acct:[id number] Age/Sex: 83 / F ADM Date: 05/16/24 Loc: HO.ED Attending Dr: Ordering Physician: Segundo Montague Date of Service: 05/16/24 Procedure(s): CT cervical spine wo IV con Accession Number(s): [id number] cc: Segundo Montague; Alton Durham MD Report Number: [id number]: Total DLP = 214.00 mGy-cm EXAMINATION: CT [...] by: Wilberto Cardoso MD 05/16/2024 12:38 PM EST Dictated By: Wilberto Kerr MD Signed By: <Electronically signed by Wilberto Martel MD in OV> 05/16/24 1238 DD/ 1142 TD/TT: 05/16/24 1218 Edge Baster: CT head/brain wo con Reviewed date:05/16/2024 04:41:18 PM Interpretation: Performing Lab: Notes/Report: [place] [address] CT Scan Report Signed Patient: Maureen Foreman MR#: [id number] : 1940 Acct:[id number] Age/Sex: 83 / F ADM Date: 05/16/24 Loc: .ED Attending Dr: Ordering Physician: Generic ED Physician Date of Service: 05/16/24 Procedure(s): CT head/brain wo IV con Accession Number(s): [id number] cc: Alton Durham MD; Generic ED Physician Report Number: [id number]: Total DLP = 625.00 mGy-cm EXAMINATION: CT [...] by: Roberto Huffman MD 05/16/2024 12:52 PM [facility] Dictated By: Roberto Huffman MD Signed By: <Electronically signed by Roberto Huffman MD in OV> 05/16/24 1252 DD/ 1153 TD/TT: 05/16/24 1218 Edge Baster: [place] [address] CT Scan Report Signed Patient: Maureen Foreman MR#: [id number] : 1940 Acct:[id number] Age/Sex: 83 / F ADM Date: 05/16/24 Loc: HO.ED Attending Dr: Ordering Physician: Generic ED Physician Date of Service: 05/16/24 Procedure(s): CT head/brain wo IV con Accession Number(s): [id number] cc: Alton Durham MD; Generic ED Physician Report Number: [id number]: Total DLP = 625.00 mGy-cm EXAMINATION: CT [...] by: Roberto Huffman MD 05/16/2024 12:52 PM [facility] Dictated By: Roberto Huffman MD Signed By: <Electronically signed by Roberto Huffman MD in OV> 05/16/24 1252 DD/ 1153 TD/TT: 05/16/24 1218 Edge Baster: CT facial bones wo con Reviewed date:05/16/2024 04:42:06 PM Interpretation: Performing Lab: Notes/Report: [address] [address] [address] Scan Report Signed Patient: Maureen Foreman MR#: [id number] : 1940 Acct:[id number] Age/Sex: 83 / F ADM Date: 05/16/24 Loc: HO.ED Attending Dr: Ordering Physician: Segundo Montague Date of Service: 05/16/24 Procedure(s): CT facial bones wo IV con Accession Number(s): [id number] cc: Segundo Montague; Alton Durham MD Report Number: [id number]: Total DLP = 215.00 mGy-cm EXAMINATION: CT [...] by: Roberto Huffman MD 05/16/2024 12:52 PM [facility] [place] Dictated By: Roberto Huffman MD Signed By: <Electronically signed by Roberto Huffman MD in [place]> 05/16/24 1252 DD/ 1153 TD/TT: 05/16/24 1218 Edge Baster: [place] [id number] CT Scan Report Signed Patient: Maureen Foreman MR#: [id number] : 1940 Acct:[id number] Age/Sex: 83 / F ADM Date: 05/16/24 Loc: HO.ED Attending Dr: Ordering Physician: Segundo Montague Date of Service: 05/16/24 Procedure(s): CT fac ial bones wo IV con Accession Number(s): [id number] cc: Segundo Montague; Alton Durham MD Report Number: [id number]: Total DLP = 215.00 mGy-cm EXAMINATION: CT [...] by: Roberto Huffman MD 05/16/2024 12:52 PM [facility] [place] Dictated By: Roberto Huffman MD Signed By: <Electronically signed by Roberto Huffman MD in [place]> 05/16/24 1252 DD/ 1153 TD/TT: 05/16/24 1218 Edge Baster: Complete Blood Count Man Dif Reviewed date:06/02/2024 12:39:21 PM Interpretation: Performing Lab:[facility], [address] [place] [phone] Notes/Report: White Blood Count 3.4 4.8-10.8 X10*3/uL [...] te Reviewed date:06/02/2024 12:22:30 PM Interpretation: Performing Lab:[address] [address] Notes/Report: Erythrocyte Sedimentation Rate 2 0-20 MM/HR Patients with polycythemia and many hemoglobin abnormalities may have depressed sed rates whereas patients with anemia may have elevated sed rates. Comprehensive Met. Panel Reviewed date:06/02/2024 12:23:01 PM Interpretation: Performing Lab:[address] [address] Notes/Report: Sodium 142 135-145 mmol/L Potassium 4.4 [...] Dehydrogenase Reviewed date:06/02/2024 12:22:09 PM Interpretation: Performing Lab:[facility], [address] [place] [phone] Notes/Report: Lactate Dehydrogenase 255 122-220 U/L Vitamin B12 and Folate Reviewed date:06/02/2024 04:20:13 PM Interpretation: Performing Lab:[facility], [address] [place] [phone] Notes/Report: Vitamin B12 488 200-900 pg/mL NORMAL 200-900 PG/ML INDETERMINATE 160-199 PG/ML DEFICIENT < 160 PG/ML Folate 13.8 > or = 4.0 ng/mL Reference Values: > or = 4.0 ng/mL < 4.0 ng/mL suggests folate deficiency Methotrexate, aminopterin and folinic acid (leucovorin) are chemotherapeutic agents whose molecular structures are similar to folate; therefore, the [employer] folate assay cannot be used for patients using these drugs. Immunofixation Pnl, Serum Reviewed date:06/07/2024 08:09:13 PM Interpretation: Performing Lab:[facility], [address] [place] [phone] Notes/Report: IgG 243 843-6589 mg/dL IgA 85 70-320 mg/dL IgM 41 50-300 mg/dL THIS TEST WAS PERFORMED AT: [email or web address] [address] [place] [phone] ADALID FOURNIER MD Immunofixation Interpretation SEE NOTE Normal pattern. No monoclonal proteins detected. THEO Reflex Titer and Pattern Reviewed date:06/07/2024 08:08:55 PM Interpretation: Performing Lab:[address] [phone] Notes/Report: Anti Nuclear Antibody Screen NEGATIVE NEGATIVE [...] AC-0: Negative International Consensus on THEO Patterns (https://doi.org/10. 15/yekg-1932-1649) For additional information, please refer to http://education.LabPixies.Convio/faq/FA Q122 (This link is being provided for informational/ educational purposes only.) THIS TEST WAS PERFORMED AT: [email or web address] [address] [place] [phone] ADALID FOURNIER MD Anti Nuclear Antibody Titer TNP Anti Nuclear Antibody Pattern TNP THEO Titer 2 TNP THEO Pattern 2 TNP THEO Titer 3 TNP THEO Pattern 3 TNP Rheumatoid Factor Reviewed date:06/02/2024 04:14:35 PM Interpretation: Performing Lab:[facility], [address] [place] [phone] Notes/Report: Rheumatoid Factor < 13.0 <15.0 IU/mL Hepatitis B,C Profile Reviewed date:06/02/2024 04:14:21 PM Interpretation: Performing Lab:[facility], [address] [place] [phone] Notes/Report: Hepatitis B Surface Antibody NONREACTIVE Nonreactive Nonreactive: < 8.00 mIU/mL Hepatitis B Core Antibody Nonreactive Nonreactive Hepatitis C Antibody Nonreactive Nonreactive Antibodies to HCV not detected; does not exclude early acute HCV infection. Hepatitis B Surface Antigen Negative Negative HIV Ab/Ag Reviewed date:06/02/2024 04:14:43 PM Interpretation: Performing Lab:[address] [address] Notes/Report: HIV AB/AG Nonreactive Nonreactive HIV-1 p24 [...] limit of detection of this assay. The [employer] HIV Ag/Ab Combo assay result and supplemental assay results should be interpreted in conjunction with the patient's clinical presentation, history and other laboratory results. If the results are inconsistent with clinical evidence, additional testing is suggested to confirm the result. US carotid duplex BI Reviewed date:06/09/2024 12:41:10 PM Interpretation: Performing Lab: Notes/Report: [address] [address] Ultrasound Report Signed Patient: Maureen Foreman MR#: [id number] : 1940 Acct:[id number] Age/Sex: 84 / F ADM Date: 06/09/24 Loc: HO.US Attending Dr: Alton Durham MD Ordering Physician: Alton Durham MD Date of Service: 06/09/24 Procedure(s): US carotid duplex BI Accession Number(s): [id number] cc: Alton Durham MD EXAMINATION: US EXTRACRANIAL [...] by: Wilberto Cardoso MD 06/09/2024 12:19 PM [facility] Dictated By: Wilberto Sanches MD Signed By: <Electronically signed by Wilberto Martel MD in OV> 06/09/24 1219 DD/ 1127 TD/TT: 06/09/24 [address]: [place] [address] Ultrasound Report Signed Patient: Maureen Foreman MR#: [id number] : 1940 Acct:[id number] Age/Sex: 84 / F ADM Date: 06/09/24 Loc: HO.US Attending Dr: Alton Durham MD Ordering Physician: Alton Durham MD Date of Service: 06/09/24 Procedure(s): US carotid duplex BI Accession Number(s): [id number] cc: Alton Durham MD EXAMINATION: US EXTRACRANIAL [...] by: Wilberto Cardoso MD 06/09/2024 12:19 PM [facility] Dictated By: Wilberto Kerr MD Signed By: <Electronically signed by Wilberto Martel MD in OV> 06/09/24 1219 DD/ 1127 TD/TT: 06/09/24 [address]: US reyes complete Reviewed date:06/13/2024 12:36:35 PM Interpretation: Performing Lab: Notes/Report: [address] [address] Ultrasound Report Signed Patient: Maureen Foreman MR#: [id number] : 1940 Acct:[id number] Age/Sex: 84 / F ADM Date: 06/13/24 Loc: HO.US Attending Dr: Julee ANAYA Ordering Physician: Julee Asher Date of Service: 06/13/24 Procedure(s): US abdomen complete Accession Number(s): [id number] cc: Alton Durham MD; Julee Asher CLINICAL HISTORY: R74.01 - Elevation of levels [...] 06/13/24 1026 DD/ 1025 TD/TT: 06/13/24 [address]: [place] [address] Ultrasound Report Signed Patient: Maureen Foreman MR#: [id number] : 1940 Acct:[id number] Age/Sex: 84 / F ADM Date: 06/13/24 Loc: HO.US Attending Dr: Julee Asher [facility] Ordering Physician: Julee Asher [facility] Date of Service: 06/13/24 Procedure(s): US abdomen complete Accession Number(s): [id number] cc: Alton Durham MD; Julee Asher [facility] CLINICAL HISTORY: R74.01 - Elevation of levels [...] 06/13/24 1026 DD/ 1025 TD/TT: 06/13/24 [address]: IRON PROFILE Reviewed date:07/03/2024 12:28:58 PM Interpretation: Performing Lab:[facility], [address] [place] [phone] Notes/Report: Iron 123 30-160 mcg/dL Total Iron Binding Capacity 338 228-428 mcg/dL Percent Iron Saturation 36 15-50 % Unsaturated Iron Binding 215 Ferritin Reviewed date:07/03/2024 12:22:12 PM Interpretation: Performing Lab:[facility], [address] [place] [phone] Notes/Report: Ferritin 32 10-250 ng/mL C Reactive Protein Reviewed date:07/03/2024 12:21:54 PM Interpretation: Performing Lab:[facility], [address] [place] [phone] Notes/Report: C Reactive Protein < 0.10 < or = 0.50 mg/dL Ceruloplasmin Reviewed date:07/13/2024 12:40:30 PM Interpretation: Performing Lab:[facility], [address] [place] [phone] Notes/Report: Ceruloplasmin 26 14-48 mg/dL THIS TEST WAS PERFORMED AT: [email or web address] [address] [place] [phone] ADALID FOURNIER MD Alpha Fetoprotein Reviewed date:07/13/2024 04:14:53 PM Interpretation: Performing Lab:[facility], [address] [place] [phone] Notes/Report: Alpha Fetoprotein 5.3 Reference Range: <6.1 The use of AFP as a tumor marker in females is not recommended. This test was performed using the [employer] [place] chemiluminescent method. Values obtained from different assay methods cannot be used interchangeably. AFP levels, regardless of value, should not be interpreted as absolute evidence of the presence or absence of disease. THIS TEST WAS PERFORMED AT: [email or web address] [address] [place] [phone] ADALID FOURNIER MD Liver Fibrosis Pnl Reviewed date:07/13/2024 12:40:22 PM Interpretation: Performing Lab:[facility], [address] [place] [phone] Notes/Report: Liver Fibrosis Score 0.25 Liver Fibrosis [...] a>0.62 and a<=1.00 : A3 (severe activity) KVA-Njqgr-8-Macroglobul in 198 106-279 mg/dL FIB-Haptoglobin 77 43-212 mg/dL FIB-Apolipoprotein A1 223 101-198 mg/dL FIB-Total Bilirubin 0.6 0.2-1.2 mg/dL FIB-GGT 27 3-65 U/L FIB-ALT 18 6-29 U/L Reference ID [id number] Footnote SEE NOTE The reliability of results is dependent on compliance with the preanalytical and analytical conditions recommended by [employer]. The tests have to be deferred for: [...] The performance characteristics have been determined by [facility]. It has not been cleared or approved by the U.S. Food and Drug Administration. Performance characteristics refer to the analytical performance of the test. Bday, the associated logo, [employer] and all associated [employer]Pix[employer] patel are the registered trademarks of [employer]. All third democrat patel - (R) and (TM) - are the property of their respective owners. (C) 0599-3590 [employer] Incorporated. All rights reserved. THIS TEST WAS PERFORMED AT: [employer] [facility] [address] [place] [address] DELMER PRIETO MD,PHD,LOPEZ Mitochondrial Antibody Reviewed date:07/12/2024 07:07:20 PM Interpretation: Performing Lab:[address] [address] Notes/Report: Mitochondrial Antibodies NEGATIVE NEGATIVE The specimen was negative for cytoplasmic antibodies, however additional staining was observed suggesting the presence of Antinuclear Antibodies. Consider requesting order code 249, THEO Screen, IFA with Reflex to Titer and Pattern, or order code 25360, THEO Screen, IFA w/reflex Titer/Pattern, and Reflex to Multiplex 11 Ab [place], if clinically indicated. THIS TEST WAS PERFORMED AT: [email or web address] [address] [place] [phone] ADALID FOURNIER MD Mitochondrial Ab Titer TNP Smooth Muscle Antibody Reviewed date:07/12/2024 07:07:11 PM Interpretation: Performing Lab:[address] [address] Notes/Report: Smooth Muscle Antibody <20 <20 U [...] type 1. THIS TEST WAS PERFORMED AT: [employer] [address] [place] [address] YANET KAMINSKI MD,PHD Complete Blood Count Auto Di ff Reviewed date:08/03/2024 12:56:05 PM Interpretation: Performing Lab:[facility], [address] [place] [phone] Notes/Report: White Blood Count 2.4 4.8-10.8 X10*3/uL [...] Panel Reviewed date:08/03/2024 04:21:18 PM Interpretation: Performing Lab:[address] [phone] Notes/Report: Sodium 142 135-145 mmol/L Potassium 3.9 [...] Gold Reviewed date:08/03/2024 10:57:15 AM Interpretation: Performing Lab:[facility], [address] [place] [phone] Notes/Report: Hold Gold See Note Specimen held untested for 24 hours; Call to request Chemistry testing. SLIDE REVIEW Reviewed date:08/03/2024 10:54:08 AM Interpretation: Performing Lab:[facility], [address] [place] [phone] Notes/Report: SLIDE REVIEW VERIFIED US thyroid Reviewed date:08/11/2024 09:47:47 AM Interpretation: Performing Lab: Notes/Report: [address] [address] Ultrasound Report Signed Patient: Maureen Foreman MR#: [id number] : 1940 Acct:[id number] Age/Sex: 84 / F ADM Date: 08/10/24 Loc: .US Attending Dr: Alton Durham MD Ordering Physician: Alton Durham MD Date of Service: 08/10/24 Procedure(s): US thyroid Accession Number(s): [id number] cc: Alton Durham MD EXAMINATION: US THYROID [...] OV> 08/10/[address] DD/ 0746 TD/TT: 08/10/24 [address]: [place] [address] Ultrasound Report Signed Patient: Maureen Foreman MR#: [id number] : 1940 Acct:[id number] Age/Sex: 84 / F ADM Date: 08/10/24 Loc: HO.US Attending Dr: Alton Durham MD Ordering Physician: Alton Durham MD Date of Service: 08/10/24 Procedure(s): US thyroid Accession Number(s): [id number] cc: Alton Durham MD EXAMINATION: US THYROID [...] OV> 08/10/[address] DD/ 0746 TD/TT: 08/10/24 [address]: Nely Dubose Reviewed date:08/31/2024 05:00:30 PM Interpretation: Performing Lab:[facility], [address] [place] [phone] Notes/Report: Nely Dubose See Note Specimen held untested for 24 hours; Call to request Chemistry testing. Reason For Referral No Information Medications Medication SIG (Take, Route, Frequency, Duration) Notes Start Date End Date Status NexIUM 20 MG 1 capsule Orally twi ce a day Active Multi Vitamin/Minerals as directed Orally Active Rosuvastatin Calcium 20 MG take 1 tablet by mouth every day Orally Once a day for 90 days Active Potassium Chloride 20 MEQ TAKE 1 PACKET AND MIX IN LIQUID AND DRINK BY MOUTH DAILY DIRECTED Orally QOD Active Famotidine 40 MG 1 tablet at bedtime Orally Once a day for 30 day(s) Not-Taking ZyrTEC 10 MG 1 tablet Orally Once a day for 30 day(s) Not-Taking Ondansetron HCl 4 MG 1 tablet Orally Onc e a day for 20 days 05/07/2023 Not-Taking Tylenol Extra Strength 500 MG 1 tablet as needed Orally every 6 hrs Not-Taking Sucralfate 1 GM/10ML 10 mL 1 hour before meals and at bedtime on an empty stomach Orally twice a day Active Valtrex 1 GM 1 tablet Orally 3 ti mes per day for 7 days 10/23/2016 Not-Taking Protonix 40 MG 1 TABLET ONCE A DAY ORALLY 90 DAYS Not-Taking Vitamin B-6 50 MG 1 tablet Orally for 30 day(s) Active Immunizations Vaccine Route Administration Date Status Comme nts Shingles IM Intramuscular 12/16/2010 Administered Flu Vaccine IM Intramuscular 04/07/2011 Administered Flu Vaccine IM Intramuscular 01/26/2012 Administered [employer] Flu Vaccine Unknown 02/11/2012 Administered Flu Vaccine IM Intramuscular 02/22/2013 Administered [employer] Tetanus Unknown 01/29/2006 Administered Prevnar 13 IM Intramuscular 04/10/2013 Administered zzz Unknown 04/10/2013 Administered Flu Vaccine Unknown 02/14/2014 Administered [employer] TDaP Unknown 03/21/2014 Administered [facility] Fluarix Quadrivalent IM Intramuscular 02/26/2015 Administered [facility] Flu Vaccine Unknown 02/15/2016 [facility] Quadrivalent [facility] 02/17/2017 Administered [facility] [employer] Flu Vaccine IM Intramuscular 01/21/2018 Administered pt wa s given the vaccine at [facility] in [place] on [address] Fluarix Quadrivalent Unknown 02/03/2019 Administered [employer] PPSV23 (Pnemovax) IM Intramuscular 02/10/2019 Administered Influenza High Dose Unknown 01/23/2020 Administered [facility] zzz Unknown 02/10/2019 Administered zInfluenza Unknown 01/23/2020 Administered SARS-COV-2 Moderna Unknown 05/24/2020 Administered SARS-COV-2 Moderna Unknown 06/18/2020 Administered Influenza High Dose Unknown 02/12/2021 Administered [facility] SARS-COV-2 Moderna Unknown 03/18/2021 Administered [facility] Influenza [...] Problem Status W/U Status Risk Notes Problem 401151364 Thyroid nodule (E04.1) Active confirmed Problem 306602789 Neutropenia (D70.9) Active confirmed Problem 721107609 Lung nodule seen on imaging study (R91.1) Active confirmed Problem Non-toxic single thyroid nodule (016514789) Nontoxic single thyroid nodule (E04.1) Active confirmed Problem 4109066 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) Active confirmed Problem Disorder of lumbar disc (566957251) Lumbar disc disease (M51.9) Active confirmed Problem 69298122 Essential hypertension (I10) Active confirmed Problem 686993459 Lung nodule (R91.1) Active confirmed Problem 733610410 Esophageal dysmotility (K22.4) Active confirmed Problem 346455045 History of kidne y stones (Z87.442) Active confirmed Problem 808459480 Cervical disc disease (M50.90) Active confirmed Problem 60216538 Sciatica of left side (M54.32) Active confirmed Problem 312441303 Neutropenia, unspecified type (D70.9) Active confirmed Problem 38354707 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) Active confirmed Problem 78648605 Sciatica of righ t side (M54.31) Active confirmed Problem 85472738 Elevated cholesterol (E78.00) Active confirmed Problem 704828637 Esophageal spasm (K22.4) Active confirmed Problem 87681468938950 Adnexal cyst (N94.9) Active confirmed Problem 755488901 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) Active confirmed Problem 58133048 Achalasia (K22.0) Active confirmed Problem 55436110 Paresthesia (R20.2) Active confirmed Problem 489594913089977 Atherosclerosis of both carotid arteries (I65.23) Active confirmed Problem 500316013 Abnormal mammogr am of both breasts (R92.8) Active confirmed Problem 667568163 Esophageal dysfunction (K22.4) Active confirmed Problem 889287797 Tingling of righ t upper extremity (R20.2) Active confirmed Problem 811907654 Gastroesophageal reflux disease with esophagitis without hemorrhage (K21.00) Active confirmed Problem 247788193 Porokeratosis (Q82.8) Active confirmed Problem 927194241 Hepatic granulom a (K75.3) Active confirmed Problem 280004345 Mild carotid art silva disease (I77.9) Active confirmed Vital Signs Blood pressure diastolic 68 mm Hg 09/05/2024 antonio ght is up 2 pounds since 07-11-24 Height 68 in 09/05/2024 weight is up 2 pounds since 07-11-24 Blood pressure systolic 132 mm Hg 09/05/2024 weig ht is up 2 pounds since 07-11-24 Weight 120 lbs 09/05/2024 weight is up 2 pounds since 07-11-24 BMI 18.24 kg/m2 09/05/2024 weight is up 2 pounds since 07-11-24 Encounters Encounter Location Date Provider Diagnosis Alton Durham MD [address] [place] [id number] 10/21/2023 Alton Durham Hypokalemia E87.6 Alton Durham MD [address] [place] [address] [id number] 10/25/2023 Alton Durham Hypokalemia E87.6 Alton Durham MD [address] [place] [address] [id number] 11/01/2023 Alton Durham Hypokalemia E87.6 Alton Durham MD [address] [place] [address] [id number] 11/25/2023 Alton Durham Hypokalemia E87.6 Alton Durham MD [address] [place] [address] [id number] 01/13/2024 Alton Durham Hypokalemia E87.6 Alton Durham MD [address] [place] [address] [id number] 02/03/2024 Alton Durham Hx of hypokalemia Z86.39 Alton Durham MD [address] [place] [address] [id number] 03/07/2024 Alton Durham Blood tests for rout ine general physical examination Z00.00 ; Neutropenia D70.9 ; Elevated cholesterol E78.00 and Essential hypertension I10 Alton Durham MD [address] [place] [address] [id number] 04/04/2024 Alton Durham Neutropenia D70.9 Alton Durham MD [address] [place] [address] [id number] 05/09/2024 Alton Durham Gastroesophageal ref lux disease with esophagitis without hemorrhage K21.00 Alton Durham MD [address] [place] [address] [id number] 05/19/2024 Alton Durham Status post fall Z91 .81 ; Mild carotid artery disease I77.9 and Hypokalemia E87.6 Alton Durham MD [address] [place] [address] [id number] 08/31/2024 Alton Durham Elevated cholesterol E78.00 ; AA (alcohol abuse) 305.00 and Hypokalemia E87.6 Alton Durham MD [address] [place] [address] [id number] 09/09/2023 Alton Durham Achalasia K22.0 and Atherosclerosis of both carotid arteries I65.23 Alton Durham MD [address] [place] [address] [id number] 10/11/2023 Altno Durham Esophageal dysmotili ty K22.4 and Achalasia K22.0 Alton Durham MD [address] [place] [address] [id number] 11/11/2023 Alton Durham Hypokalemia E87.6 ; Esophageal dysmotility K22.4 ; Achalasia K22.0 and Hypotension due to drugs I95.2 Alton Durham MD [address] [place] [address] [id number] 12/13/2023 Alton Durham Hypokalemia E87.6 an d Achalasia K22.0 Alton Durham MD [address] [place] [address] [id number] 03/14/2024 Alton Durham Neutropenia D70.9 ; Elevated cholesterol E78.00 ; Thyroid nodule E04.1 ; Esophageal dysfunction K22.4 ; Hypokalemia E87.6 ; Essential hypertension I10 ; Colon cancer screening Z12.11 and Depression screening Z13.31 Alton Durham MD [address] [place] [address] [id number] 04/14/2024 Alton Durham Neutropenia D70.9 an d Gastroesophageal reflux disease with esophagitis without hemorrhage K21.00 Alton Durham MD [address] [place] [address] [id number] 07/11/2024 Alton Durham Elevated LFTs R79.89 ; Elevated cholesterol E78.00 and Atherosclerosis of both carotid arteries I65.23 Alton Durham MD [address] [place] [address] [id number] 09/05/2024 Alton Durham Neutropenia D70.9 ; Esophageal dysmotility K22.4 ; Elevated cholesterol E78.00 ; Mild carotid artery disease I77.9 and Nontoxic single thyroid nodule E04.1 Alton Durham MD [address] [place] [address] [id number] 12/27/2023 Alton Durham MD [address] [place] [address] [id number] 09/20/2023 Alton Durham MD [address] [place] [address] [id number] 10/21/2023 Alton Durham MD [address] [place] [address] [id number] 10/21/2023 Alton Durham MD [address] [place] [address] [id number] 10/22/2023 Alton Durham MD [address] [place] [address] [id number] 10/22/2023 Alton Durham MD [address] [place] [address] [id number] 01/25/2024 Alton Durham MD [address] [place] [address] [id number] 05/18/2024 Alton Durham Bilateral carotid artery disease I77.9 Alton Durham MD [address] [place] [address] [id number] 05/22/2024 Alton Durham MD [address] [place] [address] [id number] 06/09/2024 Alton Durham MD [address] [place] [address] [id number] 06/27/2024 Alton Durham MD [address] [place] [address] [id number] 07/13/2024 Alton Durham MD [address] [place] [address] [id number] 08/08/2024 Alton Durham Atherosclerosis of b [facility] carotid arteries I65.23 Alton Durham MD [address] [place] [address] [id number] 08/11/2024 Alton Durham Thyroid nodule E04.1 Assessments Encounter Date Diagnosis (ICD Code) Assessment Notes Treatment Notes Treatment Clinical Notes Section Notes 10/21/2023 Hypokalemia (ICD-10 - E87.6) 10/25/2023 Hypokalemia [...] this four years ago and repeat us. 08/31/2024 Elevated cholesterol (ICD-10 - E78.00) 09/09/2023 Achalasia (ICD-10 - K22.0) needs to [...] LFTs (ICD-10 - R79.89) contact Carmen at [facility] to discuss/ is most likely related to the statin. could stop it and see if it returns to normal but don't think that is necessary 09/05/2024 Neutropenia (ICD-10 - D70.9) neutropenia is chronic and has been recently evaluated by hematology still having a lot of burping and belcing. 05/18/2024 Bilateral carotid artery disease (ICD-10 - I77.9) 08/08/2024 Atherosclerosis of both carotid arteries (ICD-10 - I65.23) 08/11/2024 Thyroid nodule (ICD-10 - E04.1) Order made and put into the future order folder for . 03/07/2024 Elevated cholesterol (ICD-10 - E78.00) 05/19/2024 Hypokalemia (ICD-10 - E87.6) pending lab work 08/31/2024 AA (alcohol abuse) (ICD9-CM - 305.00) 11/11/2023 Achalasia (ICD-10 - K22.0) 03/14/2024 Thyroid nodule (ICD-10 - E04.1) will repeat us next year/ Thyroid order printed and put in future folder 07/11/2024 Elevated cholesterol (ICD-10 - E78.00) is not at goal but with elevated lft's will leave on present 09/05/2024 Esophageal dysmotility (ICD-10 - K22.4) seems better, followed by GI still having a lot of burping and belcing. 03/07/2024 Essential hypertension (ICD-10 - I10) 08/31/2024 Hypokalemia (ICD-10 - E87.6) 11/11/2023 Hypotension due to 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 - I95.2) will hold the lisinopril 03/14/2024 Esophageal dysfunction (ICD-10 - K22.4) on an incredibly strick diet, will continue current regiment 07/11/2024 Atherosclerosis of both carotid arteries (ICD-10 - I65.23) no change in 5 years 09/05/2024 Elevated cholesterol (ICD-10 - E78.00) doing well on rosuvastatin, will continue current regiment still having a lot of burping and belcing. 03/14/2024 Hypokalemia (ICD-10 - E87.6) stable, will continue to monitor 09/05/2024 Mild carotid artery disease (ICD-10 - I77.9) no change still having a lot of burping and belcing. 03/14/2024 Essential hypertension (ICD-10 - I10) doing well, will contiue current regiment 09/05/2024 Nontoxic single thyroid nodule (ICD-10 - E04.1) repeat us in one year/ order printed and put in future folder still having a lot of burping and belcing. 03/14/2024 Colon cancer screening (ICD-10 - Z12.11) guaiac negative 03/14/2024 Depression screening (ICD-10 - Z13.31) negative screen Plan Of Treatment Pending Test Test Name Order Date Electrocardiogram (EKG) 01/28/2018 Electrocardiogram (EKG) 06/10/2018 XR GI SERIES 06/11/2023 US CAROTID BILATERAL DOPPLER 05/18/2024 US THYROID 06/24/2023 CT abdomen pelvis wo con 12/21/2022 US thyroid 08/11/2024 US thyroid 07/15/2023 Future Test Test Name Order Date US THYROID 01/02/2020 US THYROID 04/18/2021 CT chest wo con 07/08/2023 US pelvic and transvaginal 07/30/2023 Next Appt Details Provider Name:Alton Joiner ier, 03/09/2025 07:45:00 AM, [address] [place] [address], [address], [phone], Provider Name:Alton Joiner ier, 03/16/2025 08:00:00 AM, [address] [place] [address], [place] [address], [place], [place], [phone], Insurance Providers Payer Name Payer Address Payer Phone Subscriber Number Group Number Insured Name Patient Relationship to Insured Coverage Start Date Coverage End Date MEDICARE NHIC [address] [place] [address] [id number] Maureen Foreman Self - patient is the insured [facility] [address] [place] [phone] [id number] Maureen Foreman Self - patient is the insured Medical (General) History Medical History History ICD Code discussed colonoscopy again 2012,2013 di scussed 2017 cta chest with small nodule [address] of Chest in (done in 06/2014) Dermatitis due to drugs and medicines ta gamaliel internally Basal cell cancer needs us thyroid 2019 has kidney stone and lithotrypsy 2018 Surgical History Surgery Date(Month/Year) RT Ear Meatoplasty (Dr. Clifton Kaminski) 10/2019
--- OUTSIDE RECORDS SUMMARY | 2024-09-07 11:25 | XMS_ITS ---
Author Organization [facility] Address [address] [place] [address] Care Team Providers Care Cider Maker Name Role Phone Alton Durham MD Primary Care Provider Bean Cortes Jr REASON FOR VISIT cancel appt Encounters Encounter Location Date Provider Diagnosis [facility] [address] [place] [address] 06/15/2023 Bean Holley Jr Plan Of Treatment No Information Progress Notes * ABEL WHITEANCEDOB:[birth year] (83 yo F)Acc No.[id number]:06/15/2023 Patient:?KATELYNCHANTALE ARINA :1940???Age:83 Y???Sex:Female Address:[facility] [place] [address] * true * Date:? Generated for Virai denny/Douglas/eTransmitting on:?09/07/2024 11:24 AM EDT
--- OUTSIDE RECORDS SUMMARY | 2024-09-07 11:26 | XMS_ITS | Patient Health Record ---
Author Organization [facility] Address [address] [place] [address] Care Team Providers Care Undercutter Operator Name Role Phone Alton Durham MD Primary Care Provider Bean Cortes Jr Reason For Referral No Information Plan Of Treatment No Information Insurance Providers Payer Name Payer Address Payer Phone Subscriber Number Group Number Insured Name Patient Relationship to Insured Coverage Start Date Coverage End Date MEDICARE OF [place] [address] [place], [place] [id number] ARINA WHITE Self - patient is the insured [facility] [address] [address] [place] [address] [id number] ARINA WHITE Self - patient is the insured
--- OUTSIDE RECORDS SUMMARY | 2024-09-07 11:26 | XMS_ITS ---
Author Organization [facility] Address [address] [place] [address] Care Team Providers Care Nuclear Licensing Engineer Name Role Phone Marva GUILLAUME, Alton Primary Care Provider Bean Cortes Jr [phone] REASON FOR VISIT BELCHING Encounters Encounter Location Date Provider Diagnosis [facility] [address] [place] [address] 09/16/2023 Bean Holley Jr Plan Of Treatment No Information Progress Notes * ABEL WHITEANCEDOB:[birth year] (84 yo F)Acc No.[id number]:09/16/2023 Progress Notes Patient:?ARINA WHITE Provider:?Bean Holley MD :1940???Age:83 Y???Sex:Female D ate:09/16/2023 Address:[address] [place] [address] [id number] Pcp:Alton Durham MD Subjective: * Chief Complaints: [...] MD Date:?0 09/16/2023 Generated for Nando baldwin/Douglas/eTransmitting on:?09/07/2024 11:26 AM EDT
--- OUTSIDE RECORDS SUMMARY | 2024-09-07 11:26 | XMS_ITS ---
Author Organization Alton Durham MD Address [address] [place] [phone] Care Team Providers Care Health Underwriter Name Role Phone Alton Durham Primary Care [...] Location Date Provider Diagnosis Alton Durham MD [address] [place] [address] [address] [place], [place] [phone] 09/05/2024 Alton Durham Neutropenia D70.9 ; Esophageal [...] Name:Alton Joiner ier, 03/09/2025 07:45:00 AM, [address] [facility], [address], [place], [place], [phone], Provider Name:Alton Joiner ier, 03/16/2025 08:00:00 AM, [address] [facility], [address], [place], [place], [phone], Progress Notes * Maureen WHITE JDOB: (84 yo F)Acc No.[id number]:09/05/2024 Progress Notes Patient:?Maureen WHITE J Provider:?Alton Durham MD :1940???Age:84 Y???Sex:Female D ate:09/05/2024 Address:[address] [place] [address] [id number] Subjective: * Chief Complaints: * ???6 month * HPI: ???Symptom(s):? patient is a 84 yo female here for 6 month follow up visit. * ROS:?General/Constitutional:?Denies?Chills.?Denies?Fatigue.?Denies?Fever.?Denies?Headache.?ENT:?Denies?Sore throat.?Respiratory:?Denies?Cough.?Denies?Shortness of breath at rest.?Denies?Shortness of breath with exertion.?Gastrointestinal:?Denies?Diarrhea.?Denies?Nausea.? * Medical History:? * Surgical History:? * [...] mouth every day Orally Once a day Not-Taking/PRNZyrTEC 10 MG Tablet Chewable 1 tablet [...] myalgiayes[Allergies Verified] Objective: * Vitals:?Ht: 68, Wt: 120, BMI :18.24, BP:132/68, Wt-k.43. weight is up 2 pounds since 07-11-24. * ???Past Orders: ???Lab:Liver Panel (Order Da te 08/31/2024) (Collection Date & Time - 08/31/2024 07:00 AM) ? Value Reference Range ?Bilirubin Total 0.7 0.0- 1.0 - mg/dL ?Bilirubin Direct 0.3 0.0 -0.5 - mg/dL ?Aspartate Amino Transferase 34 H 5-31 - U/L ?Alanine Aminotransferase 27 0-31 - U/L ?Total Protein 6.4 L 6.5-8. 0 - g/dL ?Albumin Level 4.0 3.5-5. 0 - g/dL ?Alkaline Phosphatase 89 39-117 - U/L ???Lab:Potassium (Order - 08/31/2024) (Collection Date & Time - 08/31/2024 07:00 AM) ? Value Reference Range ?Potassium 3.8 3.3-5.1 - mmol/L ???Lab:Lipid Panel with Refl ex (Order 08/31/2024) (Collection & Time - 08/31/2024 07:00 AM) ? Value Reference Range ?Triglycerides 32 <150 - mg/dL ?Cholesterol 183 <200 - m g/dL ?LDL Cholesterol Calculated 82 <100 - mg/dL ?HDL Cholesterol 95 >40 - mg/dL * Examination: ???General Examination: ?GENERAL APPEARANCE:?alert, well hydrated, in no distress.?HEAD:?normocephalic.?SKIN:?good turgor.?HEART:?no murmurs, rubs, gallops, regular rate and rhythm.?LUNGS:?no wheezes, rales, rhonchi, good air movement, clear to auscultation bilaterally.?ABDOMEN:?soft, nontender, nondistended.? 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 still having a lot of burpin g and belcing. Plan: * Treatment: 2.?Esophageal dysmotility? Notes: seems better, followed by GI?? 3.?Elevated cholesterol? Notes: doing well on rosuvastatin, will continue current regiment?? 4.?Mild carotid artery disea se? Notes: no change?? 5.?Nontoxic single thyroid n odule?Imaging: US thyroid (Ordered for 09/05/2025) Notes: repeat us in one year/ order printed and put in future folder?? * Procedure Codes:? * * Sign off status: Completed true * Provider:?Alton Durham MD Date:?0 09/05/2024 Generated for Nando baldwin/Douglas/eTransmitting on:?09/07/2024 11:25 AM EDT History and Physical Notes * [...]
== END 2024-09-07 11:13 | disposition home or self-care (01) ==
LOC: HO.ENCR 10:16
PROVIDERS: PCP Internal Medicine; Visit Provider Dietitian, Registered
DX: R63.4 Abnormal weight loss (principal)

== ENCOUNTER → 2024-09-07 10:15 | Outpatient (BNVA) | payer MEDICARE, OTHER, SELFPAY | PROVIDERS: PCP Internal Medicine; Visit Provider Dietitian, Registered | DX: R63.4 Abnormal weight loss (principal); Z68.1 Body mass index [BMI] 19.9 or less, adult | CPT/HCPCS: 97803 ==

== ENCOUNTER 2024-09-22 13:59 | Outpatient (AMB) | payer MEDICARE, OTHER, SELFPAY ==
--- OUTSIDE RECORDS SUMMARY | 2024-09-22 14:02 | XMS_ITS ---
Author Organization Alton Durham MD Address [address] [place] [phone] Care Team Providers Care Power Washer Name Role Zahra JeimyAlton staley Primary Care Provider [phone] REASON FOR VISIT Thyroid US due Encounters Encounter Location Date Provider Diagnosis Alton Durham MD [address] [place] [phone] 08/11/2024 Alton Durham Thyroid nodule E04.1 Assessments [...] 07:45:00 AM, [address], [address] [place] [address] [place], [phone], Provider Name:Alton Joiner delano, 03/16/2025 08:00:00 AM, [address] [facility], [address], [place], [place], [phone], Progress Notes * Maureen WHITE JDOB: (84 yo F)Acc No.[id number]:08/11/2024 Patient:?Maureen WHITE J :1940???Age:84 Y???Sex:Female Address:[address] [place] [id number] Subjective: * Chief Complaints: * ???Thyroid US due * Medical History:? * Surgical History:? * Hospitalization/Major Diagno stic Procedure:? * Medications:? Objective: * Vitals:? * Physical Examination:? Assessment: * Assessment: 1.?Thyroid nodule - E04.1??? Plan: * Treatment: * Procedure Codes:? * true * Date:? Generated for Nando baldwin/Douglas/eTransmitting on:?09/22/2024 02:02 PM EDT
--- NOTE | 2024-09-22 14:11 | MHC.OFFVIS ---
Vital Signs 09/22/24 14:32 Height 5 ft 8 in Weight 121 lb 4 oz BMI 18.4 BP 152/66 H Blood Pressure Location Rt brachial Position Sitting Pulse 76 Pulse Source Pulse Oximeter Pulse Oximetry (%) 96 Oxygen Delivery Method Room Air Intake Visit Reasons: 1 mos FUV. OK'd per Carmen Intake Note: ESTABLISHED PATIENT for GERD + weight mgmt. CC; Pt reports that she is doing well with the current tx. Approximately 1 bad day every 1-2 weeks. Unable to identify any triggers or patterns at this time for sx. No additional sx or concerns. Director Of Media Required: No Accompanied by: Self / Same As Patient Allergies cephalexin [From KEFLEX] Allergy (Severe, Verified 08/22/24 08:52) RASH Sulfa (Sulfonamide Antibiotics) [SULFA (SULFONAMIDE ANTIBIOTICS)] Allergy (Severe, Verified 08/22/24 08:52) INTSERNAL AND EXTERNAL RASH/INFECTION Iodinated Contrast Media [IV Dye, Iodine Containing] Allergy (Intermediate, Verified 08/22/24 08:52) HIVES,REDNESS + SWELLING sulfamethoxazole [From BACTRIM] Allergy (Intermediate, Verified 08/22/24 08:52) INTERNAL AND EXTERNAL RASH/ INFECTION stent Allergy (Uncoded 08/22/24 08:52) Vomiting HPI HPI 1 mos FUV. OK'd per Carmen: Details: LAST VISIT: Epigastric pain Weight loss, unintentional Chronic leukopenia Transaminitis GERD (gastroesophageal reflux disease) Plan Continue current management for another month. If she is doing well we will try to wean her off and see if she will do better with Voquezna. Currently we are holding that as her insurance was not able to pay for it. Originally vonoprazan was approved for erosive esophagitis only and now is also approved for reflux. Will need to run PA again. Continue avoiding dietary triggers and late night snacking. Continue fiber supplements with probiotics. Follow-up in 1 month, sooner on as needed basis. Patient is agreeable to this plan and verbalizes understanding of instructions. She was given the opportunity to ask questions and all questions answered. ? TODAY'S VISIT: Patient is here today for follow-up visit. Patient reports that she has been feeling fairly well. Appetite is good. Patient is including more food in her diet. Is able to go out and enjoy eating out as well. Maybe 1 episode of belching lasting 1-2 hours every 1-2 weeks. Patient denies any dyspepsia, dysphagia or odynophagia. States that Nexium has been working for now and we do not want to change anything. Patient denies any nausea or vomiting. Denies any trouble moving her bowels. Takes senna as needed. Patient denies melena, hematochezia, unintentional weight loss or ribbon like stools. Patient continues to see a dietitian. Next his improved Hematology was is in couple months. [facility] Medical History Transaminitis Chronic leukopenia Erosive esophagitis Kidney stone GERD (gastroesophageal reflux disease) High cholesterol HTN (hypertension) Surgical History H/O lithotripsy H/O esophagogastroduodenoscopy (07/09/23) Social History Alcohol intake: never Patient Tobacco Use Status: Never used Tobacco Advance Directives Date on File: 09/22/23 service: No Current occupational status: retired Current occupational exposures/hazards: No Review of Systems Const Denies weight gain and Denies weight loss ENT Reports no additional complaints, Denies dysphagia and Denies odynophagia Card Reports no additional complaints Resp Reports no additional complaints GI Denies abdominal pain, Denies belching, Denies melena, Denies bloating, Denies change in bowel habits, Denies dysphagia, Denies excessive flatus, Denies dyspepsia, Denies heartburn, Denies diarrhea, Denies loose stools, Denies nausea, Denies odynophagia and Denies vomiting Musc Reports no additional complaints Neuro Reports no additional complaints Psych Reports no additional complaints Endo Reports no additional complaints Physical Exam Vital Signs: Last Vital Signs Pulse 76 09/22/24 14:32 BP 152/66 H 09/22/24 14:32 Pulse Ox 96 09/22/24 14:32 Oxygen Delivery Method Room Air 09/22/24 14:32 BMI result Body Mass Index 18.4 Const General: no acute distress Orientation/consciousness: patient oriented x3 Resp Effort & Inspection: normal respiratory effort, able to speak in complete sentences, no tracheal deviation and symmetric chest movement Auscultation: clear to auscultation bilaterally Cardio Rate: regular rate GI Inspection: Yes normal to inspection and No distended Palpation (GI): Soft to palpation, not firm, nontender and No hepatosplenomegaly present Auscultation: normal bowel sounds General: Yes no CVA tenderness Back/Spine/Pelvis Back: no CVA tenderness Skin General skin exam: elasticity normal, turgor normal and dry skin Neuro General: patient oriented x3 Psych Appearance: grossly normal Mental Status: mental status grossly normal Assessment & Plan Assessment & Plan (1) Epigastric pain: Code(s): R10.13 - Epigastric pain Category: Medical (2) Weight loss, unintentional: Code(s): R63.4 - Abnormal weight loss Category: Medical (3) Chronic leukopenia: Code(s): D72.819 - Decreased white blood cell count, unspecified Category: Medical (4) Transaminitis: Code(s): R74.01 - Elevation of levels of liver transaminase levels Category: Medical (5) GERD (gastroesophageal reflux disease): Code(s): K21.9 - Gastro-esophageal reflux disease without esophagitis Qualifiers: Esophagitis presence: esophagitis presence not specified Qualified Code(s): K21.9 - Gastro-esophageal reflux disease without esophagitis Plan Patient will continue avoiding dietary triggers. Remaining introduce more food in her diet. Starting with eating small amounts may increase if she tolerates it. Continue working with diet patient. Continue Nexium. Increase fluid intake and activity to promote better bowel more prominently. Follow-up her on month, sooner on as needed basis. We will discuss sending patient for upper endoscopy to re-evaluate her esophagus. She is agreeable to the current plan of care and verbalizes understanding of instructions. She was given the opportunity to ask questions and all questions answered. Thank you for allowing me to participate in her care Coding Level of Care Code Est Pt Level 3 (01146) Diagnoses Epigastric pain R10.13 Weight loss, unintentional R63.4 Chronic leukopenia D72.819 Transaminitis R74.01 Gastroesophageal reflux disease, unspecified whether esophagitis present K21.9 Esophagitis presence: esophagitis presence not specified Time Spent (min) 25 Comment 53 minutes spent with patient and additional 10 minutes spent reviewing her records
[2024-09-22 14:32] VITALS: BP 152/66; PULSE 76; O2SAT 96; BMI 18.4
== END 2024-09-22 14:59 | disposition home or self-care (01) ==
LOC: HO.HGI 14:00
PROVIDERS: PCP Internal Medicine; Visit Provider Nurse Practitioner Family
DX: R10.13 Epigastric pain (principal); R63.4 Abnormal weight loss; D72.819 Decreased white blood cell count, unspecified; R74.01 Elevation of levels of liver transaminase levels; K21.9 Gastro-esophageal reflux disease without esophagitis
CPT/HCPCS: 99213

== ENCOUNTER → 2024-09-22 13:59 | Outpatient (BNVA) | payer MEDICARE, OTHER, SELFPAY | PROVIDERS: PCP Internal Medicine; Visit Provider Nurse Practitioner Family | DX: K21.9 Gastro-esophageal reflux disease without esophagitis (principal); R10.13 Epigastric pain; R63.4 Abnormal weight loss; D72.819 Decreased white blood cell count, unspecified; R74.01 Elevation of levels of liver transaminase levels | CPT/HCPCS: 99212 ==

== ENCOUNTER 2024-10-27 10:43 | Outpatient (AMB) | payer MEDICARE, OTHER, SELFPAY ==
--- OUTSIDE RECORDS SUMMARY | 2024-08-11 05:44 | XMS_ITS ---
Author Organization Alton Durham MD Address [address] [place] [phone] Care Team Providers Care Manager Imaging Name Role Zahra JeimyAlton staley Primary Care Provider [phone] REASON FOR VISIT Thyroid US due Encounters Encounter Location Date Provider Diagnosis Alton Durham MD [address] [place] [phone] 08/11/2024 Alton Durham Thyroid nodule E04.1 Assessments [...] 03/09/2025 07:45:00 AM, [address], [address] [place] [address] [place], [phone], Provider Name:Alton Joiner ier, 03/16/2025 08:00:00 AM, [address], [address], [place], [phone], Progress Notes * KATELYNLIDIAMaureen AGUILA JDOB: (84 yo F)Acc No.[id number]:08/11/2024 Patient: Kena ARRIAGAMINGODelmyMaureen Francisco Javier :1940 A ge:84 Y S ex:Female Address:[address] [place] [address] Subjective: * Chief Complaints: * T hyroid US due * Medical History: * Surgical History: * Hospitalization/Major Diagno stic Procedure: * Medications: Objective: * Vitals: * Physical Examination: Assessment: * Assessment: 1. T hyroid nodule - E04.1 Plan: * Treatment: * Procedure Codes: * true * Date: Generated for Nando baldwin/Douglas/eTransmitting on: 0 10/27/2024 11:42 AM EDT
--- NOTE | 2024-10-27 10:45 | MHC.OFFVIS ---
Vital Signs 10/27/24 10:51 Height 5 ft 8 in Weight 119 lb BMI 18.1 BP 152/76 H Blood Pressure Location Rt brachial Position Sitting Pulse 74 Pulse Source Pulse Oximeter Pulse Oximetry (%) 99 Oxygen Delivery Method Room Air Intake Visit Reasons: 5wks Intake Note: ESTABLISHED PATIENT for GERD + weight mgmt. Chief Complaint; C.O. chronic sx persistence, with episodes typically q3-4 days for approximately 6-8 hrs at a time. No significant changes in presentation since last visit. Pt has been working on incorporating new foods into her diet w/o difficulty. Golf [employer] Head Inspector And Adjuster Required: No Accompanied by: Self / Same As Patient Allergies cephalexin (From KEFLEX) Allergy (Severe, Verified 10/27/24 10:45) RASH Sulfa (Sulfonamide Antibiotics) (SULFA (SULFONAMIDE ANTIBIOTICS)) Allergy (Severe, Verified 10/27/24 10:45) INTSERNAL AND EXTERNAL RASH/INFECTION Iodinated Contrast Media (IV Dye, Iodine Containing) Allergy (Intermediate, Verified 10/27/24 10:45) HIVES,REDNESS + SWELLING sulfamethoxazole (From BACTRIM) Allergy (Intermediate, Verified 10/27/24 10:45) INTERNAL AND EXTERNAL RASH/ INFECTION stent Allergy (Uncoded 10/27/24 10:45) Vomiting HPI HPI 5wks: Details: LAST VISIT: Epigastric pain Weight loss, unintentional Chronic leukopenia Transaminitis GERD (gastroesophageal reflux disease) Plan Patient will continue avoiding dietary triggers. Remaining introduce more food in her diet. Starting with eating small amounts may increase if she tolerates it. Continue working with diet patient. Continue Nexium. Increase fluid intake and activity to promote better bowel more prominently. Follow-up her on month, sooner on as needed basis. We will discuss sending patient for upper endoscopy to re-evaluate her esophagus. She is agreeable to the current plan of care and verbalizes understanding of instructions. She was given the opportunity to ask questions and all questions answered. ? TODAY'S VISIT Patient is here today for follow-up. Patient reports that she has been doing fairly well. Weight stable. However patient is not really gaining significant amount of weight. Patient is trying lots of new food. Have not try to eat a hamburger or beef he had. She does eat chicken and fish as well as shaver and does well with that. Every 2-3 days patient will reports to have symptoms of belching for about 4 hours or so. Patient however denies having any epigastric pain or any acid reflux turning those episodes. Patient does admit that she is not going to the bathroom every day bowel movements every other day or so. Patient feels that this might be correlated to her feeling extra gassy because she is not emptying. It also could be because she eats food that could cause gas. Patient will look in to her FODMAP recommendation that she has at home and pay more attention. Patient denies melena, hematochezia. Denies any dyspepsia, dysphagia or odynophagia. She is due to go for endoscopy to re-evaluate her esophagus. [facility] Medical History Transaminitis Chronic leukopenia Erosive esophagitis Kidney stone GERD (gastroesophageal reflux disease) High cholesterol HTN (hypertension) Surgical History H/O lithotripsy H/O esophagogastroduodenoscopy (07/09/23) Social History Alcohol intake: never Patient Tobacco Use Status: Never used Tobacco Advance Directives Date on File: 09/22/23 service: No Current occupational status: retired Current occupational exposures/hazards: No Review of Systems Const Denies weight gain and Denies weight loss ENT Reports no additional complaints, Denies dysphagia and Denies odynophagia Card Reports no additional complaints Resp Reports no additional complaints GI Denies abdominal pain, Denies belching, Denies melena, Denies bloating, Denies change in bowel habits, Denies dysphagia, Denies excessive flatus, Denies dyspepsia, Denies heartburn, Denies diarrhea, Denies loose stools, Denies nausea, Denies odynophagia and Denies vomiting Reports no additional complaints Musc Reports no additional complaints Neuro Reports no additional complaints Psych Reports no additional complaints Endo Reports no additional complaints Physical Exam Const General: no acute distress Orientation/consciousness: patient oriented x3 Resp Effort & Inspection: normal respiratory effort, able to speak in complete sentences, no tracheal deviation and symmetric chest movement Auscultation: clear to auscultation bilaterally Cardio Rate: regular rate GI Inspection: Yes normal to inspection and No distended Palpation (GI): Soft to palpation, not firm, nontender and No hepatosplenomegaly present Auscultation: normal bowel sounds General: Yes no CVA tenderness Back/Spine/Pelvis Back: no CVA tenderness Skin General skin exam: elasticity normal, turgor normal and dry skin Neuro General: patient oriented x3 Psych Appearance: grossly normal Mental Status: mental status grossly normal Assessment & Plan Assessment & Plan (1) Erosive esophagitis: Code(s): K22.10 - Ulcer of esophagus without bleeding Category: Medical (2) Epigastric pain: Code(s): R10.13 - Epigastric pain Category: Medical (3) Gastroesophageal reflux disease: Code(s): K21.9 - Gastro-esophageal reflux disease without esophagitis Qualifiers: Esophagitis presence: esophagitis presence not specified Qualified Code(s): K21.9 - Gastro-esophageal reflux disease without esophagitis Plan Will continue Nexium as ordered. Patient will continue sucralfate. Avoid dietary triggers only 10 snacking. Staying upright for minimal 3 hours after meals discussed with patient. Patient does report belching every 2-3 days and bloating. Will pay more attention to food that she is eating and will try to take [id number] senna to see if she can empty her bowels better. Patient can also try instead of senna MiraLax daily. Discussed with patient trying high calorie, high protein diet. List of food recommended given to patient. Follow-up in 5 weeks. Message sent to surgical schedulers to book upper endoscopy with Dr. Hudosn. History of erosive esophagitis. Patient is agreeable to current plan of care and verbalizes understanding of instructions. She was given the opportunity to ask questions and all questions answered. Thank you for allowing me to participate in her care Coding Level of Care Code Est Pt Level 3 (67322) Diagnoses Erosive esophagitis K22.10 Epigastric pain R10.13 Gastroesophageal reflux disease, unspecified whether esophagitis present K21.9 Esophagitis presence: esophagitis presence not specified Time Spent (min) 25 Comment 15 minutes spent with patient and additional 10 minutes spent reviewing her records
[2024-10-27 10:51] VITALS: BP 152/76; PULSE 74; O2SAT 99; BMI 18.1
== END 2024-10-27 11:24 | disposition home or self-care (01) ==
LOC: HO.HGI 10:44
PROVIDERS: PCP Internal Medicine; Visit Provider Nurse Practitioner Family
DX: K22.10 Ulcer of esophagus without bleeding (principal); R10.13 Epigastric pain; K21.9 Gastro-esophageal reflux disease without esophagitis
CPT/HCPCS: 99213

== ENCOUNTER → 2024-10-27 10:43 | Outpatient (BNVA) | payer MEDICARE, OTHER, SELFPAY | PROVIDERS: PCP Internal Medicine; Visit Provider Nurse Practitioner Family | DX: K21.9 Gastro-esophageal reflux disease without esophagitis (principal); K22.10 Ulcer of esophagus without bleeding; R10.13 Epigastric pain | CPT/HCPCS: 99212 ==

== ENCOUNTER 2024-11-07 09:47 | Outpatient (AMB) | payer MEDICARE, OTHER, SELFPAY ==
--- OUTSIDE RECORDS SUMMARY | 2024-08-11 05:44 | XMS_ITS ---
Author Organization Alton Durham MD Address [address] [place] [phone] Care Team Providers Care Personnel Training Officer Name Role Zahra JeimyAlton staley Primary Care Provider REASON FOR VISIT Thyroid US due Encounters Encounter Location Date Provider Diagnosis Alton Durham MD [address] [place] [phone] 08/11/2024 Alton Durham Thyroid nodule E04.1 Assessments [...] 03/09/2025 07:45:00 AM, [address], [address] [place] [address] [place], [phone], Provider Name:Alton Joiner ier, 03/16/2025 08:00:00 AM, [address], [address], [place], [phone], Progress Notes * KATELYNCHANTALEMaureen JDOB: (84 yo F)Acc No.[id number]:08/11/2024 Patient: Kena ARRIAGAMINGODelmyMaureen Francisco Javier :1940 A ge:84 Y S ex:Female Address:[address] [place] [address] Subjective: * Chief Complaints: * T hyroid US due * Medical History: * Surgical History: * Hospitalization/Major Diagno stic Procedure: * Medications: Objective: * Vitals: * Physical Examination: Assessment: * Assessment: 1. T hyroid nodule - E04.1 Plan: * Treatment: * Procedure Codes: * true * Date: Generated for Nando baldwin/Douglas/eTransmitting on: 0 11/07/2024 10:23 AM EDT
--- NOTE | 2024-11-07 10:04 | MHC.AMNUTRGE ---
VS Expanded 11/07/24 10:05 Height 5 ft 8 in Weight 117 lb 1.047 oz BMI 17.8 Intake Visit Reasons: Unintentional weight loss Allergies cephalexin (From KEFLEX) Allergy (Severe, Verified 11/02/24 09:26) RASH Sulfa (Sulfonamide Antibiotics) (SULFA (SULFONAMIDE ANTIBIOTICS)) Allergy (Severe, Verified 11/02/24 09:26) INTSERNAL AND EXTERNAL RASH/INFECTION Iodinated Contrast Media (IV Dye, Iodine Containing) Allergy (Intermediate, Verified 11/02/24 09:26) HIVES,REDNESS + SWELLING sulfamethoxazole (From BACTRIM) Allergy (Intermediate, Verified 11/02/24 09:26) INTERNAL AND EXTERNAL RASH/ INFECTION Nutrition Presentation Details: Pt presents for MNT for unintentional weight loss Pt presents today because she has started to lose weight Pt reports having 3 meals/day ,in the last couple of days has had increased gas 7: 2 Cuban toast /butter maple syrup with 2 eggs with coffee (reg milk when eating out , lactose free at home) -went out therefore had reg milk peanut butter and bread as snack, water or tea lunch: ritz crackers and lactose free cottage cheese and fairlife milk and ice cream , water dinner : 2 slices of meat loaf and tortellini and zucchini squash, dairy free coconut yogurt , water BS Monitoring Most Recent Diabetes Results: Cholesterol, (<200) 183 mg/dL 08/31/24 HDL Cholesterol, (>40) 95 mg/dL 08/31/24 Triglycerides, (<150) 32 mg/dL 08/31/24 [facility] Medical History Transaminitis Chronic leukopenia Erosive esophagitis Kidney stone GERD (gastroesophageal reflux disease) High cholesterol HTN (hypertension) Surgical History (Updated 11/07/24 @ 12:19 by Tasia Hull RN) H/O lithotripsy H/O esophagogastroduodenoscopy (07/09/23) Social History Alcohol intake: never Patient Tobacco Use Status: Never used Tobacco Advance Directives Date on File: 09/22/23 service: No Current occupational status: retired Current occupational exposures/hazards: No Assessment & Plan Assessment & Plan (1) Weight loss, unintentional: Code(s): R63.4 - Abnormal weight loss Category: Medical Plan: Have a combination of protein food/whole grain starches Caution with high salt foods /acidic foods Choose lactose free options when eating out wt : 51 (01/2024) , 52 kg (04/25), 55kg(05/27), 54 kg (07/25), 53 kg (11/24) est kcal needs (kg BW x 30) : 1600 est protein 1- 1.2 g/kg bw: 52- 62 est fluid needs as per 30 x kg BW: 1600 Patient Instructions: Choose low acid dressings (dilute dressing with water, if making at home then olive oil, herbs and bit of applecider vinegar or rice vinegar) Dilute juice with water to have with the meal (adding calories to your beverages) Try almond crackers ask for lactose free food/beverages options when eating out keep active as able Coding Level of Care Code Nutr Indiv Subseq (64089) Diagnoses Weight loss, unintentional R63.4 Time Spent (min) 20
[2024-11-07 10:05] VITALS: BMI 17.8
--- OUTSIDE RECORDS SUMMARY | 2024-11-07 10:24 | XMS_ITS | Data Portability ---
Author Organization [place] - [facility], Allergy Address [address] [address] Care Team Providers Care Quality Worker Name Role Phone GRAHAM HARGROVE Primary Care Provider [phone] Assessment Encounter Date Assessment Date Assessment LastModified by Organization Details LastModified Time 10/05/2024 10/05/2024 84-year-old female presents for cerumen removal. Cerumen impaction removed bilaterally. Bilateral TMs are intact with well aerated middle ear spaces. Follow up in 3 months for routine debridement. [email or web address] Not available 10/05/2024 10:01:48 Plan of Treatment Reminders Order Date Submit Date Provider Last Modified By Organization Details Last Modified Time Details Appointments Establish ed 10 2024 08:30A M TRACEY [...] Recorded Time Impacted cerumen in left ear 56236828936 29238 Active 2019 Impacted cerumen, left ear; Note: Date Diagnose d: 0 9:06 AM (H61.22) Not Available [facility] 4 02:59:24 Bilatera l diffuse otitis externa [id number] Completed 201912/03/2023 Diffuse otitis externa, bilatera l; Note: Changed from H60.312 to H60.313 ( 0 9:01 AM) , Date Diagnose d: 0 11:52 AM (H60.312 ) Not Available [facility] 4 02:59:21 Cellulit is of both external ears 62373900822 Completed 201912/03/2023 Cellulit is of external ear, bilatera l; Note: Date Diagnose d: 08/10/2019 9:02 AM (H60.13) Not Available [facility] 4 02:59:22 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 11995403893 Active 2019 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 and infectio n; Note: Date Diagnose d: 0 8:43 AM (H61.322 ) Not Available [facility] 4 02:59:21 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 42859028172 Completed 201912/03/2023 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 and infectio n; Note: Date Diagnose d: 0 8:43 AM (H61.321 ) [facility] 4 02:59:22 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 70338423896 73685 Active 2019 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 and infectio n; Note: Date Diagnose d: 0 8:43 AM (H61.322 ) [facility] 4 02:59:21 Acute myringit is of right ear 12867858940 53862 Completed 201912/03/2023 Acute myringit is, right ear; Note: Date Diagnose d: 0 10:14 AM (H73.001 ) [facility] 4 02:59:21 Otitis externa of bilatera l ears 92134414434 96921 Completed 201912/03/2023 Other otitis externa, bilatera l; Note: Date Diagnose d: 09/07/2019 10:30 AM (H60.8X3 ) [facility] 4 02:59:24 Candidal otitis externa 47459038 Active 2022 Candidal otitis externa; Note: Date Diagnose d: 3 8:45 AM (B37.84) Candid al otitis externa; Note: Date Diagnose d: 0 9:31 AM (B37.84) ; Start Date : 05/18/19 20 Not Available [facility] 4 02:59:22 Sensorin eural hearing loss of bilatera l ears 639135771 Active 2020 Sensorin eural hearing loss, bilatera l; Note: Date Diagnose d: 1 9:19 AM (H90.3) Not Available [facility] 4 02:59:25 Impacted cerumen of bilatera l ears 21322315815 59952 Active 2019 Impacted cerumen, bilatera l; Note: Date Diagnose d: 0 9:31 AM (H61.23) Not [facility] 4 02:59:23 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 88973692381 54853 Active 2019 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 and infectio n, bilatera l; Note: Date Diagnose d: 0 9:37 AM (H61.323 ) Not Available [facility] 4 02:59:24 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 85982846432 34265 Active 2019 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 and infectio n, bilatera l; Note: Date Diagnose d: 0 9:37 AM (H61.323 ) Not Available [facility] 4 02:59:24 Follow-u p visit [...] 10/30/19 20 Not Available [facility] 4 02:59:25 Problem Notes None recorded. Procedures Surgical History Date Name Laterality Status Provider Name and Address Organization Details Recorded Time 10/06/19 25 Cerumen removal without microscope bilat completed YUDITH CLINE PA-C [address] [place] [address],[address], [address], [facility] 10/05/2024 10:01:26 07/05/19 25 Cerumen removal with microscope left completed TRACEY KAMINKSI MD [address] [place] [address],[address], [address], [facility] - [facility] 07/03/2024 08:42:44 04/04/20 24 Cerumen removal with microscope left completed TRACEY KAMINSKI MD [address] [place] [address],[address], [address], [place] - [facility] 04/03/2024 07:34:32 01/04/20 24 Cerumen removal with microscope left completed TRACEY KAMINSKI MD [address] [facility],[address], [address], [facility] - [facility] 01/04/2024 09:06:38 10/19/19 24 Cerumen removal with microscope left completed TRACEY KAMINSKI MD 100 [facility] [address], [address], [place] - [facility] 10/19/2023 08:46:23 lithotripsy completed Latha Fu [place] - [facility] 10/19/2023 08:30:53 meatoplasty of external ear completed Latha Fu [facility] 10/19/2023 08:31:07 Imaging Results None recorded. Procedure Notes None recorded. Medical Equipment None Reported. Allergies Allergen ID Allergen Name Allergen Category Reaction Reaction Severity Criticality Documentation Date Start Date Code Code System Note Provider Name and Address Organization Details Recorded Time 318500 cephalexi n monohydra te medicatio n other Not available Not available 09/14/2023 08444 8 RxNorm React ion: unkno wn, unspe cifie d;; Not Available [facility] 4 01:22:48 394694 Substance with sulfonami de structure and antibacte rial mechanism of action (substanc e) medicatio n other Not available Not available 09/14/2023 71287 8003 SNOMED React ion: unkno wn, unspe cifie d;; Not Available [facility] 4 01:22:48 775346 Iodinated contrast media (substanc e) medicatio n Not available Not available Not available 10/19/2023 36370 2003 SNOMED Latha monteiro [facility] 4 08:29:47 Medications Name Sig Start Date Stop Date Status Note LastModified by Organization Details LastModified Time atorvasta tin 40 mg tablet 02/08 completed Medicati on ID: [id number] D uration Value: 90 Brand Name: atorvast [...] mg tablet 04/04 completed Medicati on ID: [id number] B rand Name: allie Se nd Method: E-Prescr ibed Sub s Allowed: subs OK Speci al Instruct ion: TAKE 2 TABLETS BY MOUTH AT BEDTIME FOR CONSTIPA TION Med icationG enericNa me: senna Not Available Not Available Not Available sucralfat e 100 mg/mL oral suspensio n TAKE 10 ML BY MOUTH 2 TIMES A DAY active Not Available Not Available No t Available ondansetr on HCl 4 mg tablet TAKE 1 TABLET BY MOUTH EVERY DAY FOR 20 DAYS 04/04 completed Not Available Not Available Not Available famotidin e 40 mg tablet TAKE 1 TABLET BY MOUTH EVERYDAY AT BEDTIME 04/04 completed Not Available Not Available Not Available Ciloxan 0.3 % eye drops 10/18 completed Medicati on ID: [id number] D uration Value: 14 Prescri bed By Name: KELLI Barros nd Name: Ciloxan Send Method: E-Prescr ibed Sub s Allowed: subs OK Speci al Instruct ion: 4 drops into affected ear BID X 14 days Med icationG enericNa me: Ciloxan Medicati on ID: [id number] D uration Value: 14 Prescri bed By Name: KELLI Barros nd Name: Ciloxan Send Method: E-Prescr ibed Sub s Allowed: subs OK Speci al Instruct ion: 4 drops into affected ear BID X 14 days Med icationG enericNa me: Ciloxan Not Available Not Available Not Available ciproflox acin 500 mg tablet 1 tablet by mouth 08/02 completed Medicati on ID: [id number] D uration Value: 10 Prescri bed By [...] layed release 04/04 completed Medicati on ID: [id number] Glenn vasquez Name: pantopra zole Sen d Method: E-Prescr ibed Sub s Allowed: subs OK Medic [facility] ericName : pantopra zole Not Available Not Available Not Available clotrimaz ole-betam ethasone 1 %-0.05 % topical cream Apply 1 a small amount to affected area three times a day 10/18 completed Medicati on ID: [id number] D uration Value: 14 Prescri bed By Name: Musa Ramirez nd Name: clotrima zole-bet amethbreezyo arnulfo Send Method: E-Prescr ibed Sub s Allowed: subs OK Speci al Instruct ion: Apply with fingerti p to external ear Medi cationGe nericNam e: clotrima zole-bet amethaso ne Medic ation ID: [id number] D uration Value: 14 Prescri bed By Name: Musa Ramirez nd Name: clotrima zole-bet amethaso ne Send Method: E-Prescr ibed Sub s Allowed: subs OK Speci al Instruct ion: Apply with fingerti p to external ear Medi cationGe nericNam e: clotrima zole-bet amethaso ne Not Available Not Available Not Available clotrimaz ole 1 % topical solution 10/18 completed Medicati on ID: [id number] D uration Value: 14 Brand Name: kip Kwan d Method: E-Prescr ibed Sub s Allowed: subs OK Speci al Instruct ion: 4 drops to affected ear three times a day Medi cationGe nericNam e: clotrima zolkamran Med ication ID: [id number] D uration Value: 14 Brand Name: kip Kwan d Method: E-Prescr ibed Sub s Allowed: [...] affected area 10/18 completed Medicati on ID: [id number] D uration Value: 14 Brand Name: randalrocluisito n Send Method: E-Prescr ibed Sub s Allowed: subs OK Medic ationGen ericName : mupiroci n Medica tion ID: [id number] D uration Value: 14 Brand Name: mupiroci n Send Method: E-Prescr ibed Sub s Allowed: subs OK Medic ationGen ericName : mupiroci n Not Available Not Available Not Available cefuroxim e axetil 500 mg tablet 1 tablet by mouth 10/18 completed Medicati on ID: [id number] D uration Value: 14 Brand Name: cefuroxi me axetil S end Method: E-Prescr ibed Sub s Allowed: subs OK Medic ationGen ericName : cefuroxi me axetil M edicatio n ID: [id number] D uration Value: 14 Brand Name: cefuroxi me axetil S end Method: E-Prescr ibed Sub s Allowed: subs OK Medic ationGen ericName : cefuroxi me axetil Not Available Not Available Not Available multivita min capsule 2019 active Medicati on ID: [id number] B rand Name: multivit anderson Sen d [...] by mouth 10/18 completed Medicati on ID: [id number] D uration Value: 3 Brand Name: oxycodon e Send Method: E-Prescr ibed Sub s Allowed: subs OK Medic ationGen ericName : oxycodon e Medica tion ID: [id number] D uration Value: 3 Brand Name: oxycodon e Send Method: E-Prescr ibed Sub s Allowed: subs OK Medic ationGen ericName : oxycodon e Not Available Not Available Not Available neomycin 3.5 mg/g-poly myxin B 10,000 unit/g-de xameth 0.1 % eye oint 10/25 completed Medicati on ID: [id number] Juan Pablo conteh d By Name: Musa Ramirez nd Name: neomycin -polymyx in B-dexame th Send Method: E-Prescr ibed Sub s Allowed: subs OK Speci al Instruct ion: apply to both ear canals TID [facility] cationGe nericNam e: neomycin -polymyx in B-dexame th Not Available Not Available Not Available Ciprodex 0.3 %-0.1 % ear drops,luiz pension 4 drop 10/18 completed Medicati on ID: [id number] D uration Value: 14 Brand Name: Ciprodex Send Method: E-Prescr ibed Sub s Allowed: subs OK Medic ationGen ericName : Ciprodex Medicat ion ID: [id number] D uration Value: 14 Brand Name: Ciprodex Send Method: E-Prescr ibed Sub s Allowed: subs OK Medic ationGen ericName : Ciprodex Not Available Not Available Not Available rosuvasta tin 20 mg tablet TAKE 1 TABLET BY MOUTH ONCE A DAY active Not Available Not Available No t Available rosuvasta tin 40 mg tablet TAKE 1 TABLET BY MOUTH EVERY DAY 07/04 completed Not Available Not Available Not Available Klor-Con M20 mEq tablet,ex tended release TAKE 1 TABLET BY MOUTH EVERY DAY 04/04 completed Not Available Not Available Not Available Cortispor in 1 % topical ointment 10/18 completed Medicati on ID: [id number] D uration Value: 30 Brand Name: Cortispo rin Send Method: E-Prescr ibed Sub s Allowed: subs OK Speci al Instruct ion: apply to bith ears canals three times a day Medi cationGe nericNam e: Cortispo rin Medi cation ID: [id number] D uration Value: 30 Brand Name: Cortispo [...] Not Available Not Available Not Available Vitals Date Recorded Body height Body mass index (BMI) Body weight Provider Name and Address Organization Details Last Updated DateTime 10/05/2024 172.72 cm 18.2 kg/m2 75201.08 g Mariola De La Cruz [place] - [facility] 10/05/2024 09:44:07 Social History None recorded. 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 She is always welcome to come back to see me if she wants to proceed with left-sided meatoplast y. 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 She is always welcome to come back to see me if she wants to proceed with left-sided meatoplast y. 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 1093789294 039236 H61.322 Impacted c erumen of bilateral ears 8371423261 769680 H61.23 Health Concerns Section Related Observation LastModified by Organization Detai ls LastModified Time None Recorded Concern Status LastModified by Organization Details LastModified Time None Recorded Advance Directives Directive None Recorded Payers Insurance Date Sequence Insurance Name Policy Number Policy Chi Covered Member ID Chi Member ID Guarantor Name 10/05/2024 2 [employer] - GIC INDEMNITY PLAN (MEDICARE SUPPLEMENT) [id number] Maureen Francisco Javier Foreman [id number] Maureen Foreman 10/05/2024 1 MEDICARE B-[place]: [facility] [employer] Maureen Foreman [id number] Maureen Foreman 08/07/2024 2 [employer] - SENIOR SERVICES PLAN F (MEDICARE SUPPLEMENT) [id number] Maureen Foreman [id number] Maureen Francisco Javier Foreman Notes Date Note Type Note Provider [...] accompanied by difficulty hearing. TRACEY KAMINSKI MD [address] [place] [address], [address], [facility] 10/19/2023 08:51:52 01/04/2024 text/html 83-year-old markus flores presents for cerumen removal. She has a history of bilateral external auditory canals stenosis. Meatoplasty done in 2019 on the right side with resulting resolution of the stenosis on the right. She reports the right ear is feeling great. Recent blockage sensation on the left accompanied by difficulty hearing. TRACEY KAMINSKI MD [address] [place] [address], [address], [facility] 01/04/2024 09:08:08 04/04/2024 text/html 83-year-old markus flores presents for cerumen removal. She has a history of bilateral external auditory canals stenosis. Meatoplasty done in 2020 on the right side with resulting resolution of the stenosis on the right. She reports the right ear is feeling great. Recent blockage sensation on the left accompanied by difficulty hearing. TRACEY KAMINSKI MD [address] [facility],[address], [address], [facility] - [facility] 04/04/2024 08:38:51 07/04/2024 text/html 83-year-old markus flores presents for cerumen removal. She has a history of bilateral external auditory canals stenosis. Meatoplasty done in 2020 on the right side with resulting resolution of the stenosis on the right. She reports the right ear is feeling great. Recent blockage sensation on the left accompanied by difficulty hearing. TRACEY KAMINSKI MD [address] [facility],[address], [address], [facility] 07/04/2024 08:48:40 10/05/2024 text/html 84-year-old markus flores presents for cerumen removal. She has a history of bilateral external auditory canals stenosis. Is s/p meatoplasty in 2020 on the right side with resulting resolution of the stenosis on the right. No concerns today. TRACEY KAMINSKI MD [address] [facility],[address], [address], [facility] 10/09/2024 17:43:04 OBGyn Episode No OBEpisode recorded.
--- OUTSIDE RECORDS SUMMARY | 2024-11-07 10:24 | XMS_ITS | Patient Health Record ---
Author Organization [facility] Address [address] [place] [address] Care Team Providers Care Mincemeat Maker Name Role Phone Alton Durham MD Primary Care Provider Bean Cortes Jr Reason For Referral No Information Plan Of Treatment No Information Insurance Providers Payer Name Payer Address Payer Phone Subscriber Number Group Number Insured Name Patient Relationship to Insured Coverage Start Date Coverage End Date MEDICARE OF [place] [address] [place], [place] [id number] ARINA WHITE Self - patient is the insured [facility] [address] [address] [place] [address] [id number] ARINA WHITE Self - patient is the insured
== END 2024-11-07 10:41 | disposition home or self-care (01) ==
LOC: HO.ENCR 09:47
PROVIDERS: PCP Internal Medicine; Visit Provider Dietitian, Registered
DX: R63.4 Abnormal weight loss (principal)

== ENCOUNTER → 2024-11-07 09:47 | Outpatient (BNVA) | payer MEDICARE, OTHER, SELFPAY | PROVIDERS: PCP Internal Medicine; Visit Provider Dietitian, Registered | DX: R63.4 Abnormal weight loss (principal); Z71.3 Dietary counseling and surveillance | CPT/HCPCS: 97803 ==

== ENCOUNTER 2024-11-09 08:15 | Day surgery (SDC) | payer MEDICARE, OTHER, SELFPAY ==
[2024-11-07 12:22] VITALS: BMI 18.1
--- NOTE | 2024-11-08 12:25 | HO.ANESPROP2 ---
Documented by User: Rika Deluna NP 11/08/24 12:25 HPI - Anesthesia Eval Consult details Narrative: 84yo F for Upper Endoscopy PMFSH Active Problems Active Problems: All Active Problems Chronic leukopenia (Acute) Weight loss, unintentional (Acute) Epigastric pain (Acute) Facial bruising (Acute) Right ankle injury (Acute) Nephrolithiasis (Acute) Transaminitis (Acute) Chronic leukopenia (Chronic) Erosive esophagitis (Acute) Past Medical History Medical History Transaminitis Chronic leukopenia Erosive esophagitis Kidney stone GERD (gastroesophageal reflux disease) High cholesterol HTN (hypertension) Family History Family history of problems with anesthesia: No Surgical History Surgical History (Updated 11/07/24 @ 12:19 by Tasia Hull RN) H/O lithotripsy H/O esophagogastroduodenoscopy (07/09/23) History of Problems with Anesthesia: No Social History Social History Alcohol intake: never Patient Tobacco Use Status: Never used Tobacco Use of substances other than those prescribed or required for medical reasons: No Are you DNR?: No Advance Directives: No Advance Directives Information Provided: Yes Advance Directives Date on File: 09/22/23 service: No Current occupational status: retired Current occupational exposures/hazards: No Meds Allergies Allergy/AdvReac Type Severity Reaction Status Date / Time cephalexin (From KEFLEX) Allergy Severe RASH Verified 11/02/24 09:26 Sulfa (Sulfonamide Allergy Severe INTSERNAL Verified 11/02/24 09:26 Antibiotics) (SULFA AND (SULFONAMIDE ANTIBIOTICS)) EXTERNAL RASH/INFECTION Iodinated Contrast Media (IV Allergy Intermediate HIVES,REDNESS Verified 11/02/24 09:26 Dye, Iodine Containing) + SWELLING sulfamethoxazole (From Allergy Intermediate INTERNAL Verified 11/02/24 09:26 BACTRIM) AND EXTERNAL RASH/ INFECTION Home Medications ?Medication ?Instructions ?Recorded ?Confirmed ?Last Taken ?Type esomeprazole magnesium 20 mg 20 mg PO BID 09/22/24 11/09/24 Unknown History capsule,delayed release rosuvastatin 20 mg tablet 20 mg PO BEDTIME 09/22/24 11/09/24 Unknown History sennosides 8.6 mg tablet (Natural 8.6 mg PO BEDTIME PRN constipation 11/09/24 Unknown History Senna Laxative) Exam Height,Weight and Vital Signs: Height 5 ft 8 in Weight 53.977 kg Pertinent Lab Results Pertinent Lab Results: Laboratory Tests 11/02/24 09:22 WBC 2.7 L Hgb 14.7 Hct 43.4 Plt Count 131 L Sodium 141 Potassium 3.7 Chloride 108 Carbon Dioxide 26 BUN 20 H Creatinine 0.57 Assessment and Plan Assessment Anesthesia Assessment: Chart Reviewed Final Anesthetic Review Family History of Problems with Anesthesia: No History of Problems with Anesthesia: No Documented by User: Toribio Moseley MD 11/09/24 10:10 PMF Past Medical History Medical History Transaminitis Chronic leukopenia Erosive esophagitis Kidney stone GERD (gastroesophageal reflux disease) High cholesterol HTN (hypertension) Family History Family history of problems with anesthesia: Yes Surgical History Surgical History (Updated 11/07/24 @ 12:19 by Tasia Hull RN) H/O lithotripsy H/O esophagogastroduodenoscopy (07/09/23) History of Problems with Anesthesia: Yes Social History Social History Alcohol intake: never Patient Tobacco Use Status: Never used Tobacco Use of substances other than those prescribed or required for medical reasons: No Are you DNR?: No Advance Directives: No Advance Directives Information Provided: Yes Advance Directives Date on File: 09/22/23 service: No Current occupational status: retired Current occupational exposures/hazards: No Meds Allergies Allergy/AdvReac Type Severity Reaction Status Date / Time cephalexin (From KEFLEX) Allergy Severe RASH Verified 11/02/24 09:26 Sulfa (Sulfonamide Allergy Severe INTSERNAL Verified 11/02/24 09:26 Antibiotics) (SULFA AND (SULFONAMIDE ANTIBIOTICS)) EXTERNAL RASH/INFECTION Iodinated Contrast Media (IV Allergy Intermediate HIVES,REDNESS Verified 11/02/24 09:26 Dye, Iodine Containing) + SWELLING sulfamethoxazole (From Allergy Intermediate INTERNAL Verified 11/02/24 09:26 BACTRIM) AND EXTERNAL RASH/ INFECTION Home Medications ?Medication ?Instructions ?Recorded ?Confirmed ?Last Taken ?Type esomeprazole magnesium 20 mg 20 mg PO BID 09/22/24 11/09/24 Unknown History capsule,delayed release rosuvastatin 20 mg tablet 20 mg PO BEDTIME 09/22/24 11/09/24 Unknown History sennosides 8.6 mg tablet (Natural 8.6 mg PO BEDTIME PRN constipation 11/09/24 Unknown History Senna Laxative) Exam Airway Mallampati Class: II TM Dist: <=3cm Neck ROM: Full Loose/Missing/Broken Teeth: No Heart: ok Lungs: ok Assessment and Plan Final Anesthetic Review Family History of Problems with Anesthesia: Yes History of Problems with Anesthesia: Yes NPO: Yes ASA Class: III Final Preanesthetic Review: No Changes in Pt Med Stat, Meds/Allgs Chart Reviewed, Consent Obtained/Reviewed and Anes Risks/Benef Reviewed Patient Risk: High Procedure Risk: Intermediate Anesthetic Plan Anesthetic Plan: Agree w/ Assess. and Plan and TIVA Disposition: Standard PACU
[2024-11-09 08:29] VITALS: BMI 17.8
[2024-11-09 08:37] VITALS: BP 170/88; PULSE 82; RESP 16; TEMP 36.9; O2SAT 97
[2024-11-09] MEDS: Lactated Ringers 1,000 ML 100 ML IVCONT (09:03)
[2024-11-09 09:07] VITALS: BP 159/81
--- NOTE | 2024-11-09 09:35 | MHC.SHP ---
Pre-Procedural Eval Section A - 24 Hr Update-Section A only Date of Service: 11/09/24 Section B - Complete if H&P > 30 days Chief Complaint: Ulcer of esophagus without bleeding Relevant Family History (Specify if Yes): No Relevant Social History: None Present Medications: see Short Stay Collaborative assessment Medical History: Significant History ( Transaminitis Chronic leukopenia Erosive esophagitis Kidney stone GERD (gastroesophageal reflux disease) High cholesterol HTN (hypertension)) History of Previous Operations: Relevant previous surgery/procedure and date(s) ( H/O lithotripsy H/O esophagogastroduodenoscopy (07/09/23)) Allergies: Allergies Allergy/AdvReac Type Severity Reaction Status Date / Time cephalexin (From KEFLEX) Allergy Severe RASH Verified 11/02/24 09:26 Sulfa (Sulfonamide Allergy Severe INTSERNAL Verified 11/02/24 09:26 Antibiotics) (SULFA AND (SULFONAMIDE ANTIBIOTICS)) EXTERNAL RASH/INFECTION Iodinated Contrast Media (IV Allergy Intermediate HIVES,REDNESS Verified 11/02/24 09:26 Dye, Iodine Containing) + SWELLING sulfamethoxazole (From Allergy Intermediate INTERNAL Verified 11/02/24 09:26 BACTRIM) AND EXTERNAL RASH/ INFECTION Review of Systems Sugical H&P ROS: Negative: Constitution, Cardiovascular, Respiratory, Neurological, Psychiatric, Hem-Onc, Allergic/Immunologic, Gastrointestinal, Genitourinary, Musculoskeletal, Integumentary, Endocrine and Eyes/Ears/Nose/Throat Exam Surgical H&P Exam: Normal: HEENT, Normal: Heart, Normal: Lungs, Normal: Extremities, Normal: Abdomen, Normal: Skin and Normal: Neurological Plan Diagnosis/Plan: Unchanged I have reviewed the history and physical and performed a pertinent physical examination on my patient. No changes have occurred unless specified. Time Spent With Patient Time: Total time managing care of this patient today ____ minutes.
--- NOTE | 2024-11-09 10:43 | W.PM.OPN ---
Operative Note Operative Note Date of Service: 11/09/24 Narrative: Procedure Description: EGD Indication: dysphagia Anesthesia: MAC FLEXIBLE TRANSORAL UPPER GASTROINTESTINAL ENDOSCOPY UPPER ENDOSCOPY Consent: Indications for the procedure and potential complications of bleeding, perforation, reaction to medications and missed diagnosis were discussed with the patient and informed consent was obtained. Instrument: Olympus GIF H 190 J mid size upper endoscope Monitoring: Vital signs and clinical assessment, continuous EKG monitoring, Pulse oximetry, Carbon Dioxide monitoring and blood pressure monitoring were done throughout the procedure. Procedure: The patient was placed in the left lateral decubitis position and pre-procedure medications were administered and a bite block was placed. The endoscope was inserted into the mouth and advanced under direct vision to the third part of duodenum. A careful inspection was made as the upper endoscope was withdrawn including a retroflexed examination of the proximal stomach; Findings and interventions are described below. Findings: Larynx:normal Esophagus: GE junction at 40 cm, diaphragm hiatus at 40 cm, schatzki ring noted with tertiary contractions and mild esophagitis, balloon dilation done at LES and UEs to 20 mm, with small heme noted at LES. bx taken from distal esophagus Stomach: benign fundic gland polyps noted. One polyp was red and inflammed and removed with cold snare, measured about 7-8 mm. Mild erythema, Grade 2 flap valve on retroflexed examination of the cardia. There appeared to be minimal gastric movement--pylorus dilated with balloon to 19 mm, no tears seen. Duodenum: Normal bulb and descending duodenum, bx taken Intervention: Balloon dilation, cold forceps bx Impression/Findings: possible gastroparesis gastritis schatzki ring fundic gland polyps tertiary contractions PLAN: cont with PPI
[2024-11-09 10:50] VITALS: BP 101/57; PULSE 77; RESP 17; TEMP 36.2; O2SAT 97
[2024-11-09 10:55] VITALS: BP 103/56; PULSE 76; RESP 16; O2SAT 96
[2024-11-09 11:00] VITALS: BP 129/72; PULSE 75; RESP 16; O2SAT 97
[2024-11-09 11:16] VITALS: BP 137/62; PULSE 69; RESP 16; TEMP 36.2; O2SAT 97
[2024-11-15 02:34] LABS: Lactase 32.0 (15.0-45.5); Maltase 243.5 (100.0-224.4); Palatinase 19.2 (5.0-26.3); Sucrase 72.7 (25.0-69.9)
== END 2024-11-09 12:01 | disposition home or self-care (01) ==
PROVIDERS: PCP Internal Medicine; Visit Provider Internal Medicine Gastroenterology
PROC: 0DJ08ZZ Inspection of Upper Intestinal Tract, Via Natural or Artificial Opening Endoscopic (ICD-10-PCS; CPT 43235; principal; 2024-11-09 11:20)
DX: K22.2 Esophageal obstruction (principal); K22.4 Dyskinesia of esophagus; K29.60 Other gastritis without bleeding; K20.80 Other esophagitis without bleeding; K31.7 Polyp of stomach and duodenum; K21.9 Gastro-esophageal reflux disease without esophagitis; I10 Essential (primary) hypertension; E78.00 Pure hypercholesterolemia, unspecified; Z79.02 Long term (current) use of antithrombotics/antiplatelets; Z79.899 Other long term (current) drug therapy
CPT/HCPCS: 43245; 43249; 43251; 43239; 36415; 82657; 88305; 88313; 88342; C1726; J2003; J2704

== ENCOUNTER → 2024-11-09 08:15 | Outpatient (BNV) | payer MEDICARE, OTHER, SELFPAY | PROVIDERS: PCP Internal Medicine; Visit Provider Internal Medicine Gastroenterology | DX: K22.2 Esophageal obstruction (principal); K31.7 Polyp of stomach and duodenum; K29.70 Gastritis, unspecified, without bleeding | CPT/HCPCS: 43239; 43249; 43251 ==

== ENCOUNTER 2024-12-06 08:28 | Outpatient (AMB) | payer MEDICARE, OTHER, SELFPAY ==
--- OUTSIDE RECORDS SUMMARY | 2024-08-11 05:44 | XMS_ITS ---
Author Organization Alton Durham MD Address [address] [place] [phone] Care Team Providers Care Salesperson Household Appliances Name Role Zahra JeimyAlton staley Primary Care Provider REASON FOR VISIT Thyroid US due Encounters Encounter Location Date Provider Diagnosis Alton Durham MD [address] [place] [phone] 08/11/2024 Alton Durham Thyroid nodule E04.1 Assessments [...] 03/09/2025 07:45:00 AM, [address], [address] [place] [address] [place], [phone], Provider Name:Alton Joiner ier, 03/16/2025 08:00:00 AM, [address], [address], [place], [phone], Progress Notes * KATELYNCHANTALEMaureen JDOB: (84 yo F)Acc No.[id number]:08/11/2024 Patient: Kena LUCIANOCHRISTINA Maureen Francisco Javier :1940 A ge:84 Y S ex:Female Address:[address] [place] [address] Subjective: * Chief Complaints: * T hyroid US due * Medical History: * Surgical History: * Hospitalization/Major Diagno stic Procedure: * Medications: Objective: * Vitals: * Physical Examination: Assessment: * Assessment: 1. T hyroid nodule - E04.1 Plan: * Treatment: * Procedure Codes: * true * Date: Generated for Nando baldwin/Douglas/eTransmitting on: 0 12/06/2024 08:38 AM EDT
--- NOTE | 2024-12-06 08:37 | MHC.OFFVIS ---
Vital Signs 12/06/24 08:41 Height 5 ft 8 in Weight 120 lb BMI 18.2 BP 142/66 H Blood Pressure Location Rt brachial Position Sitting Pulse 74 Pulse Source Pulse Oximeter Pulse Oximetry (%) 99 Oxygen Delivery Method Room Air Intake Visit Reasons: S/P EGD. Dyspepsia + wt mgmt. Intake Note: ESTABLISHED PATIENT for GERD + weight mgmt. S/P EGD. Chief Complaint; Pt denies any changes since last visit. Pt does report having a few days of exacerbated sx after her procedure but also states that it has subsided since then. 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 Dyspepsia + wt mgmt.: Details: LAST VISIT: Erosive esophagitis Epigastric pain Gastroesophageal reflux disease Plan Will continue Nexium as ordered. Patient will continue sucralfate. Avoid dietary triggers only 10 snacking. Staying upright for minimal 3 hours after meals discussed with patient. Patient does report belching every 2-3 days and bloating. Will pay more attention to food that she is eating and will try to take [id number] senna to see if she can empty her bowels better. Patient can also try instead of senna MiraLax daily. Discussed with patient trying high calorie, high protein diet. List of food recommended given to patient. Follow-up in 5 weeks. Message sent to surgical schedulers to book upper endoscopy with Dr. Hudson. History of erosive esophagitis. Patient is agreeable to current plan of care and verbalizes understanding of instructions. She was given the opportunity to ask questions and all questions answered. UPPER ENDOSCOPY: Findings: Larynx:normal Esophagus: GE junction at 40 cm, diaphragm hiatus at 40 cm, schatzki ring noted with tertiary contractions and mild esophagitis, balloon dilation done at LES and UEs to 20 mm, with small heme noted at LES. bx taken from distal esophagus Stomach: benign fundic gland polyps noted. One polyp was red and inflammed and removed with cold snare, measured about 7-8 mm. Mild erythema, Grade 2 flap valve on retroflexed examination of the cardia. There appeared to be minimal gastric movement--pylorus dilated with balloon to 19 mm, no tears seen. Duodenum: Normal bulb and descending duodenum, bx taken Intervention: Balloon dilation, cold forceps bx Impression/Findings: possible gastroparesis gastritis schatzki ring fundic gland polyps tertiary contractions TODAY'S VISIT Patient is here today for follow-up and to discuss upper endoscopy results. Patient no longer has esophagitis. High tissue maltase and sucrase. Patient reports that she has been feeling much better. Taking Nexium twice a day and sucralfate in the afternoon. Patient denies any nausea or vomiting. Denies any dyspepsia, dysphagia or odynophagia. Occasional belching but less frequent than before. Patient reports that she is moving her bowels every day. Introduced more food to her diet. Avoiding gluten and lactose as makes her feel bloated. Denies melena, hematochezia. ? [facility] Medical History Transaminitis Chronic leukopenia Erosive esophagitis Kidney stone GERD (gastroesophageal reflux disease) High cholesterol HTN (hypertension) Surgical History H/O lithotripsy H/O esophagogastroduodenoscopy (07/09/23) Social History Alcohol intake: never Patient Tobacco Use Status: Never used Tobacco Advance Directives Date on File: 09/22/23 service: No Current occupational status: retired Current occupational exposures/hazards: No Review of Systems Const Denies weight gain and Denies weight loss ENT Reports no additional complaints, Denies dysphagia and Denies odynophagia Card Reports no additional complaints Resp Reports no additional complaints GI Denies abdominal pain, Denies belching, Denies melena, Denies bloating, Denies change in bowel habits, Denies dysphagia, Denies excessive flatus, Denies dyspepsia, Denies heartburn, Denies diarrhea, Denies loose stools, Denies nausea, Denies odynophagia and Denies vomiting Reports no additional complaints Musc Reports no additional complaints Neuro Reports no additional complaints Psych Reports no additional complaints Endo Reports no additional complaints Physical Exam Vital Signs: Last Vital Signs Pulse 74 12/06/24 08:41 BP 142/66 H 12/06/24 08:41 Pulse Ox 99 12/06/24 08:41 Oxygen Delivery Method Room Air 12/06/24 08:41 BMI result Body Mass Index 18.2 Const General: no acute distress Orientation/consciousness: patient oriented x3 Resp Effort & Inspection: normal respiratory effort, able to speak in complete sentences, no tracheal deviation and symmetric chest movement Auscultation: clear to auscultation bilaterally Cardio Rate: regular rate GI Inspection: Yes normal to inspection and No distended Palpation (GI): Soft to palpation, not firm, nontender and No hepatosplenomegaly present Auscultation: normal bowel sounds General: Yes no CVA tenderness Back/Spine/Pelvis Back: no CVA tenderness Skin General skin exam: elasticity normal, turgor normal and dry skin Neuro General: patient oriented x3 Psych Appearance: grossly normal Mental Status: mental status grossly normal Results Reviewed Results Reviewed: Laboratory Tests 11/02/24 11/09/24 09:22 10:37 Lactate Dehydrogenase 230 H Total Protein 6.2 L Albumin 4.3 Tissue Lactase 32.0 Tissue Maltase 243.5 H Tissue Palatinase 19.2 Tissue Sucrase 72.7 H Assessment & Plan Assessment & Plan (1) Erosive esophagitis: Code(s): K22.10 - Ulcer of esophagus without bleeding Category: Medical (2) Epigastric pain: Code(s): R10.13 - Epigastric pain Category: Medical (3) Gastroesophageal reflux disease: Code(s): K21.9 - Gastro-esophageal reflux disease without esophagitis Qualifiers: Esophagitis presence: without esophagitis Qualified Code(s): K21.9 - Gastro-esophageal reflux disease without esophagitis (4) Belching: Code(s): R14.2 - Eructation Plan Patient will continue Nexium. She is doing well and we will wait on holding off before sending her for H pylori testing. Belching with certain food still continues. Patient is unable to clearly diet just certain food mostly carbohydrates. High tissue maltase and sucrase levels. Patient will start digestive enzymes and try to avoid carbohydrates. Patient will eat more protein, protein levels low. We talked about not just drinking protein shakes but eating more protein me a like peanut butter, meat, eggs. Patient will follow-up in 4-5 weeks, sooner on as needed basis. He is agreeable to this plan and verbalizes understanding of instructions. She was given the opportunity to ask questions and all questions answered. Thank you for allowing me to participate in her care Medications: New diugar-[id number] 24,000-76,000 -120,000 unit (Creon) administer with meals and/or snacks 1 cap PO QID 120 caps 3RF K86.89 - Other specified diseases of pancreas Coding Level of Care Code Est Pt Level 3 (94551) Diagnoses Erosive esophagitis K22.10 Epigastric pain R10.13 Gastroesophageal reflux disease without esophagitis K21.9 Esophagitis presence: without esophagitis Belching R14.2 Time Spent (min) 30 Comment 20 minutes spent with patient and additional 10 minutes spent reviewing her records
--- OUTSIDE RECORDS SUMMARY | 2024-12-06 08:39 | XMS_ITS | Patient Health Record ---
Author Organization [facility] Address [address] [place] [address] Care Team Providers Care Industrial Economics Teacher Name Role Phone Alton Durham MD Primary Care Provider Bean Cortes Jr Reason For Referral No Information Plan Of Treatment No Information Insurance Providers Payer Name Payer Address Payer Phone Subscriber Number Group Number Insured Name Patient Relationship to Insured Coverage Start Date Coverage End Date MEDICARE OF [place] [address] [place], [place] [id number] ARINA WHITE Self - patient is the insured [facility] [address] [address] [place] [address] [id number] ARINA WHITE Self - patient is the insured
[2024-12-06 08:41] VITALS: BP 142/66; PULSE 74; O2SAT 99; BMI 18.2
== END 2024-12-06 09:31 | disposition home or self-care (01) ==
LOC: HO.HGI 08:28
PROVIDERS: PCP Internal Medicine; Visit Provider Nurse Practitioner Family
DX: K22.10 Ulcer of esophagus without bleeding (principal); R10.13 Epigastric pain; K21.9 Gastro-esophageal reflux disease without esophagitis; R14.2 Eructation
CPT/HCPCS: 99213

== ENCOUNTER → 2024-12-06 08:28 | Outpatient (BNVA) | payer MEDICARE, OTHER, SELFPAY | PROVIDERS: PCP Internal Medicine; Visit Provider Nurse Practitioner Family | DX: K22.10 Ulcer of esophagus without bleeding (principal); K21.9 Gastro-esophageal reflux disease without esophagitis; R10.13 Epigastric pain; R14.2 Eructation; Z79.899 Other long term (current) drug therapy | CPT/HCPCS: 99212 ==

== ENCOUNTER 2025-01-02 07:47 | Outpatient (REF) | payer MEDICARE, OTHER, SELFPAY ==
--- OUTSIDE RECORDS SUMMARY | 2023-09-16 10:35 | XMS_ITS ---
Author Organization [facility] Address [address] [place] [phone] Care Team Providers Care Professor Of Industrial Technology Name Role Phone Marva GUILLAUME, Alton Primary Care Provider Bean Cortes Jr REASON FOR VISIT BELCHING Encounters Encounter Location Date Provider Diagnosis [facility] [address] [place] [address] 09/16/2023 Bean Holley Jr Plan Of Treatment No Information Progress Notes * ABEL WHITEANCEDOB:[birth year] (84 yo F)Acc No.[id number]:09/16/2023 Progress Notes Patient: ARINA LEIVA Provider: Glenn Holley MD :1940 A ge:83 Y S ex:Female Date:09/16/2023 Address:[address] [place], [place] [id number] Pcp:Alton Durham MD Subjective: * Chief Complaints: [...] 09/16/2023 Generated for Nando baldwin/Douglas/eTcharisseitting on: 0 01/02/2025 07:50 AM EDT
--- OUTSIDE RECORDS SUMMARY | 2024-07-13 04:10 | XMS_ITS ---
Author Organization Alton Durham MD Address [address] [place] [phone] Care Team Providers Care Establishment Guide Name Role Alton Islas Primary Care Provider REASON FOR VISIT REGARDING STATIN Encounters Encounter Location Date Provider Diagnosis Alton Durham MD 10 [facility] [address] [place] [phone] 07/13/2024 Alton Durham Plan Of Treatment Next Appt Details Provider Name:Alton Joiner ier, 03/09/2025 07:45:00 AM, [facility], Suite [facility], [place], [place], [phone], Provider Name:Alton Joiner ieariane, 03/16/2025 08:00:00 AM, [address] [place] [address], Suite [facility], [place], [place], [phone], Progress Notes * Maureen WHITE JDOB: (84 yo F)Acc No.[id number]:07/13/2024 Patient: Maureen LEIVA :1940 A ge:84 Y S ex:Female Address:[address] [place] [id number] * true * Date: Generated for Nando baldwin/Douglas/eTransmitting on: 0 01/02/2025 07:49 AM EDT
--- OUTSIDE RECORDS SUMMARY | 2024-08-08 09:12 | XMS_ITS ---
Author Organization Alton Durham MD Address [address] [place] [phone] Care Team Providers Care Printer Slotter Helper Name Role Phone Marva Alton Primary Care Provider REASON FOR VISIT refill Medications Medication SIG (Take, Route, Frequency, Duration) Notes Start Date End Date Status Rosuvastatin Calcium 20 MG take 1 tablet by mouth every day Orally Once a day for 90 days Active Encounters Encounter Location Date Provider Diagnosis Alton Durham MD [address] [place] [phone] 08/08/2024 Alton Durham Atherosclerosis of b oth [...] Provider Name:Alton wick, 03/09/2025 07:45:00 AM, [address], [address], [place], [place], [phone], Provider Name:Alton Joiner ier, 03/16/2025 08:00:00 AM, [address] [facility], [address], [place], [place], [phone], Progress Notes * Maureen WHITE JDOB: (84 yo F)Acc No.[id number]:08/08/2024 Patient: Kena Maureen JUAREZ :1940 A ge:84 Y S ex:Female Address:[address] [place] [address] [place] [address] * Refills Refill Rosuvastatin Calcium Tablet, 20 MG, Orally, 90, take 1 tablet by mouth every day, Once a day, 90 days, Refills=3 * true * Date: Generated for Nando baldwin/Douglas/Stormyitting on: 0 01/02/2025 07:50 AM EDT
--- OUTSIDE RECORDS SUMMARY | 2024-08-11 05:44 | XMS_ITS ---
Author Organization Alton Durham MD Address [address] [place] [phone] Care Team Providers Care Cat Driver Name Role Zahra JeimyAlton staley Primary Care Provider REASON FOR VISIT Thyroid US due Encounters Encounter Location Date Provider Diagnosis Alton Durham MD [address] [place] [phone] 08/11/2024 Alton Durham Thyroid nodule E04.1 Assessments [...] 03/09/2025 07:45:00 AM, [address], [address] [place] [address] [place], [phone], Provider Name:Alton Joiner ier, 03/16/2025 08:00:00 AM, [address], [address], [place], [phone], Progress Notes * KATELYNCHANTALEMaureen JDOB: (84 yo F)Acc No.[id number]:08/11/2024 Patient: Kena LUCIANOCHRISTINA Maureen Francisco Javier :1940 A ge:84 Y S ex:Female Address:[address] [place] [address] Subjective: * Chief Complaints: * T hyroid [...]
--- OUTSIDE RECORDS SUMMARY | 2024-08-31 03:00 | XMS_ITS ---
Author Organization Alton Durham MD Address [address] [place], [place] [phone] Care Team Providers Care Photographic Processor Name Role Phone JeimyAlton staley Primary Care Provider Results Component Value Reference Range Notes Liver Panel Reviewed date:08/31/2024 05:02:52 PM Interpretation: Performing Lab:[facility], [address] [place] [phone] Notes/Report: Bilirubin Total 0.7 0.0-1.0 mg/dL Bilirubin Direct 0.3 0.0-0.5 mg/dL Aspartate Amino Transferase 34 5-31 U/L Alanine Aminotransferase 27 0-31 U/L Total Protein 6.4 6.5-8.0 g/dL Albumin Level 4.0 3.5-5.0 g/dL Alkaline Phosphatase 89 39-117 U/L Potassium Reviewed date:08/31/2024 05:00:46 PM Interpretation: Performing Lab:[facility], [address] [place] [phone] Notes/Report: Potassium 3.8 3.3-5.1 mmol/L Lipid Panel with Reflex Reviewed date:08/31/2024 05:02:44 PM Interpretation: Performing Lab:[facility], [address] [facility], [place] [address] Notes/Report: Triglycerides 32 <150 mg/dL Desirable Triglyceride: [...] Location Date Provider Diagnosis Alton Durham MD [address] [place] [address] [address] [place], [place] [phone] 08/31/2024 Alton Durham Elevated cholesterol E78.00 ; AA (alcohol abuse) 305.00 and Hypokalemia E87.6 Assessments Encounter Date Diagnosis (ICD Code) Assessment Notes Treatment Notes Treatment Clinical Notes Section Notes 08/31/2024 Elevated cholesterol (ICD-10 - E78.00) 08/31/2024 AA (alcohol abuse) (ICD9-CM - 305.00) 08/31/2024 Hypokalemia (ICD-10 - E87.6) Plan Of Treatment Next Appt Details Provider Name:Alton wick, 03/09/2025 07:45:00 AM, [address] [place] [address], [address] [facility], [place], [place], [phone], Provider Name:Alton wick, 03/16/2025 08:00:00 AM, [address] [place] [address], [place] [address], [place], [place], [phone], Progress Notes * CHRISTOPHER Maureen JDOB: (84 yo F)Acc No.[id number]:08/31/2024 Progress Note Patient: Maureen LEIVA Provider: France Durham MD :1940 A ge:84 Y S ex:Female Date:08/31/2024 Address:[address] [place], [place] [phone] Subjective: * Chief Complaints: * 1 . [...] Generated for Nando baldwin/Douglas/Mary Ellen on: 0 01/02/2025 07:50 AM EDT
--- OUTSIDE RECORDS SUMMARY | 2024-09-05 04:45 | XMS_ITS ---
Author Organization Alton Durham MD Address [address] [place] [phone] Care Team Providers Care Intake Man Name Role Phone Alton Durham Primary Care [...] Date Provider Diagnosis Alton Durham MD [address] [place] [address] [address] [place], [place] [phone] 09/05/2024 Alton Durham Neutropenia D70.9 ; Esophageal [...] Name:Alton Joiner ier, 03/09/2025 07:45:00 AM, [address] [facility], [address], [place], [place], [phone], Provider Name:Alton Joiner ier, 03/16/2025 08:00:00 AM, [address] [facility], [address], [place], [place], [phone], Progress Notes * Maureen WHITE JDOB: (84 yo F)Acc No.[id number]:09/05/2024 Progress Notes Patient: Maureen LEIVA Provider: France Durham MD :1940 A ge:84 Y S ex:Female Date:09/05/2024 Address:[address] [place] [address] [id number] Subjective: * Chief Complaints: * 6 month [...] with the patient * Allergies: i svp business development dye: rashBactrim: hives over entire bodyKeflex: rashCipro: [...] 09/05/2024 Generated for Printi ng/Fatanyag/eTransmitting on: 0 01/02/2025 07:50 AM EDT History and Physical Notes * [...]
--- NOTE | ~2025-01-02 | US_ITS ---
EXAMINATION: US RETROPERITONEAL LIMITED (RENAL ONLY) CLINICAL INFORMATION: Calculus of kidney. COMPARISON: A sonogram of the abdomen 06/13/2024 TECHNIQUE: Routine grayscale imaging of kidneys is performed. FINDINGS: RIGHT KIDNEY: 11.2 x 4.2 x 4.7 cm (SAG x AP x TRV). There are multiple echogenic foci question tiny stones. Renal cortical thickness is normal. No calculi or focal parenchymal lesions. No hydronephrosis. LEFT KIDNEY: 11.6 x 4.1 x 4.8 cm (SAG x AP x TRV). The kidney is normal in size, contour, and echogenicity. Renal cortical thickness is normal. Small anechoic cyst with echogenic calculi noted in midpole the cyst measures 0.9 x 0.8 x 1.0 cm. The calcification measures 0.2 x 0.2 x 0.3 cm. There is an echogenic stone lower pole measuring 0.2 x 0.2 x 0.1 cm and 0.2 x 0.3 x 0.2 cm. No calculi or focal parenchymal lesions. No hydronephrosis. US/US renal BI IMPRESSION: Multiple echogenic foci right kidney question tiny stones. Similar findings were seen on the previous exam 06/13/2024. Simple and complex cyst with calcification left kidney. Similar findings were seen on previous study. There is no hydronephrosis or caliectasis. Electronically signed by: Rex Marie MD 01/02/2025 10:10 AM EDT
--- OUTSIDE RECORDS SUMMARY | 2025-01-02 07:50 | XMS_ITS | Patient Health Record ---
Author Organization [facility] Address [address] [place] [address] Care Team Providers Care Visual Arts Teacher Name Role Phone Alton Durham MD Primary Care Provider Bean Cortes Jr Reason For Referral No Information Plan Of Treatment No Information Insurance Providers Payer Name Payer Address Payer Phone Subscriber Number Group Number Insured Name Patient Relationship to Insured Coverage Start Date Coverage End Date MEDICARE OF [place] [address] [place], [place] [id number] ARINA WHITE Self - patient is the insured [facility] [address] [address] [place] [address] [id number] ARINA WHITE Self - patient is the insured
--- OUTSIDE RECORDS SUMMARY | 2025-01-02 07:50 | XMS_ITS | Patient Health Record ---
Author Organization Alton Durham MD Address [address] [place] [phone] Care Team Providers Care Personal Lines Account Manager Name Role Phone Alton Durham Primary Care Provider [phone] Allergies Allergen (clinical drug ingredient) Drug/Non Drug Allergy documented on EMR Reaction Allergy Type Onset Date Status Keflex rash Drug Allergy Active ciprofloxacin Cipro rash and myalgia Drug Allergy Active sulfamethoxazole / trimethoprim Bactrim hives over entire body Drug Allergy Active ivp dye (uncoded) rash Allergy Ac tive Results Component Value Reference Range Notes Potassium Reviewed date:01/14/2024 09:08:52 AM Interpretation: Performing Lab:[facility], [address] [place] [phone] Notes/Report: Potassium 3.6 3.3-5.1 mmol/L Slight Hemoly sis Potassium Reviewed date:02/03/2024 12:32:20 PM Interpretation: Performing Lab:[facility], [address] [place] [phone] Notes/Report: Potassium 4.2 3.3-5.1 mmol/L Slight Hemoly sis Complete Blood Count Auto Di ff Reviewed date:03/14/2024 09:33:06 AM Interpretation:see back 03-14-2024 Performing Lab:[facility], [address] [place] [phone] Notes/Report: White Blood Count 2.5 4.8-10.8 X10*3/uL [...] NRBC Abs Auto 0.000 0.0-0.012 X10*3/uL Comprehensive [place]. Panel Fa st Reviewed date:03/07/2024 04:52:00 PM Interpretation: Performing Lab:[facility], [address] [place] [phone] Notes/Report: Sodium 141 135-145 mmol/L Potassium 3.9 3.3-5.1 mmol/L Slight Hemolysis.Interpret result with caution. Chloride 104 96-108 mmol/L Carbon Dioxide 27 22-29 mmol/L Anion Gap 14 12-20 Blood Urea Nitrogen 23 9-16 mg/dL Creatinine 0.64 0.5-1.4 mg/dL Estimated Glomerular Filt Rate > 60 NOTE: For -[place] individuals, multiply the result by 1.210. Chronic [...] Panel Reviewed date:03/07/2024 04:52:17 PM Interpretation: Performing Lab:[facility], [address] [place] [phone] Notes/Report: Triglycerides 63 <150 mg/dL Desirable Triglyceride: [...] t Reviewed date:03/07/2024 04:51:31 PM Interpretation: Performing Lab:[facility], [address] [place] [phone] Notes/Report: Urine, Clean Catch Color Urine Yellow Appearance Urine Clear PH 6.5 5.0-9.0 Glucose Urine UA Negative Negative mg/dL Urine Blood Negative Negative Specific [place] - Urine 1.020 1.005-1.025 Urine Protein 30 [...] ff Reviewed date:04/04/2024 12:44:09 PM Interpretation: Performing Lab:[facility], [address] [place] [phone] Notes/Report: White Blood Count 2.7 4.8-10.8 X10*3/uL [...] Potassium Reviewed date:04/04/2024 12:47:19 PM Interpretation: Performing Lab:[facility], [address] [place] [phone] Notes/Report: Potassium 3.9 3.3-5.1 mmol/L Complete Blood Count Auto Di ff Reviewed date:05/09/2024 12:31:03 PM Interpretation: Performing Lab:[facility], [address] [place] [phone] Notes/Report: White Blood Count 2.8 4.8-10.8 X10*3/uL [...] Potassium Reviewed date:05/09/2024 12:25:38 PM Interpretation: Performing Lab:[facility], [address] [place] [phone] Notes/Report: Potassium 3.9 3.3-5.1 mmol/L Liver Panel Reviewed date:08/31/2024 05:02:52 PM Interpretation: Performing Lab:[facility], [address] [place] [phone] Notes/Report: Bilirubin Total 0.7 0.0-1.0 mg/dL Bilirubin Direct 0.3 0.0-0.5 mg/dL Aspartate Amino Transferase 34 5-31 U/L Alanine Aminotransferase 27 0-31 U/L Total Protein 6.4 6.5-8.0 g/dL Albumin Level 4.0 3.5-5.0 g/dL Alkaline Phosphatase 89 39-117 U/L Potassium Reviewed date:08/31/2024 05:00:46 PM Interpretation: Performing Lab:[facility], [address] [place] [phone] Notes/Report: Potassium 3.8 3.3-5.1 mmol/L Lipid Panel with Reflex Reviewed date:08/31/2024 05:02:44 PM Interpretation: Performing Lab:[address] [phone] Notes/Report: Triglycerides 32 <150 mg/dL Desirable Triglyceride: [...] low results in patients with liver disease. Occult Blood, Stool, Guaiac Reviewed date:03/14/2024 11:14:45 AM Interpretation:Negative Performing Lab: Notes/Report: Negative Occult Blood, Stool, Guaiac Neg XR soft tissue neck Reviewed date:04/17/2024 12:23:13 PM Interpretation: Performing Lab: Notes/Report: [address] [address] XRay Report Signed Patient: Maureen Foreman MR#: [id number] : 1940 Acct:[id number] Age/Sex: 83 / F ADM Date: 03/29/24 Loc: [facility] Attending Dr: Julee ANAYA Ordering Physician: Julee Asher Date of Service: 03/29/24 Procedure(s): XR soft tissue neck Accession Number(s): [id number] cc: Alton Durham MD; Julee Asher EXAMINATION: XR SOFT TISSUE NECK CLINICAL INDICATION: K22.2 - Esophageal obstruction COMPARISON: CT soft tissue neck 06/19/2023. Ultrasound of the thyroid 07/13/2023. TECHNIQUE: 2 views of the soft tissue neck were obtained. 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 FINDINGS: Soft tissue films of the neck [...] Roberto Huffman MD 04/17/2024 09:19 AM EST RP Dictated By: Roberto Huffman MD Signed By: <Electronically signed by Roberto Huffman MD in OV> 04/17/24918 DD/ 150 TD/TT: 03/29/24 1510 Priming Powder Premix Blender: [place] [address] XRay Report Signed Patient: Maureen Foreman MR#: [id number] : 1940 Acct:[id number] Age/Sex: 83 / F ADM Date: 03/29/24 Loc: HO.XRAY Attending Dr: Julee Asher SKIING TEACHER-BC Ordering Physician: Julee Asher-DG Date of Service: 03/29/24 Procedure(s): XR sof t tissue neck Accession Number(s): [id number] cc: Alton Durham MD; Julee Asher SKIING TEACHER-BC EXAMINATION: XR SOFT TISSUE NECK CLINICAL INDICATION: K22.2 - Esophageal obstruction COMPARISON: CT soft tissue neck 06/19/2023. Ultrasound of the th yroid 07/13/2023. TECHNIQUE: 2 views of the soft tissue neck were obtained. Exam submitted for r eladiow 04/17/2024 8:16 AM SASH INSTALLER. FINDINGS: Soft tissue films of the neck demonstrate a normal larynx, pharynx, hypopharynx, and upp er trachea. No masses appreciated. No prevertebral soft tissue swelling or opaque foreign body is demonstrated. There are right grea ter than left carotid bulb calcifications, moderate. Severe degenerative changes spanning C3-C7 of the cervical spine, with ventrally projecting disc osteophyte at C3-4, C4-5, and C5-6. X R/XR soft tissue neck IMPRESSION: 1. No acute soft tis lakshmi abnormalities. 2. Recommend correla ting with EGD if felt clinically warranted. Electronically tammie d by: Roberto Huffman MD 04/17/2024 09:19 AM EST RP Dictated By: Roberto Huffman MD Signed By: <Electronically signed by Roberto Huffman MD in OV> 04/17/24918 DD/ 1502 TD/TT: 03/29/24 1510 Priming Powder Premix Blender: MM tomosynthesis screening B I Reviewed date:05/05/2024 04:58:08 PM Interpretation: Performing Lab: Notes/Report: [address] [place] [address] Mammography Report Signed Patient: Maureen Foreman MR#: [id number] : 1940 Acct:[id number] Age/Sex: 83 / F ADM Date: 04/24/24 Loc: HO.MAMMO Attending Dr: Alton Durham MD Ordering Physician: Alton Durham MD Results: 1Ne gative Date of Service: 04/24/24 Follow Up: 1 Year From Orig ina Mammogram Procedure(s): MM tomosynthesis screening BI Accession Number(s): [id number] cc: Alton Durham MD EXAMINATION: MM SCREENING [...] by: Judy Bravo DO 05/05/2024 04:28 PM [facility] Dictated By: Judy Bravo DO Signed By: <Electronically signed by Judy Bravo DO in OV> 05/05/24 1628 DD/ 0800 TD/TT: 04/24/24 0821 Priming Powder Premix Blender: [address] [place] [address] Mammography Report Signed Patient: Maureen Foreman MR#: [id number] : 1940 Acct:[id number] Age/Sex: 83 / F ADM Date: 04/24/24 Loc: HO.MAMMO Attending Dr: Alton Durham MD Ordering Physician: Alton Durham MD Results: 1Ne gative Date of Service: Follow Up: 1 Year From Orig inal Mammogram Procedure(s): MM tomosynthesis screening BI Accession Number(s): [id number] cc: Alton Durham MD EXAMINATION: MM SCREENING [...] breast composition Category c). There are no signifi cant masses, abnormal calcifications, or other abnormalities. M M/MM tomosynthesis screening BI IMPRESSION: No mammographic evid ence of malignancy. ASSESSMENT: BI-RADS BI-RADS 1 - Negative RECOMMENDATION: Routine annual mammography screening. 1 year F/U This examination jess uld not preclude the clinical evaluation of a suspicious palpable abnormality. This patient's information was entered into a reminder system with a target due date for their next mammogram. Electronically tammie d by: Judy Bravo DO 05/05/2024 04:28 PM [facility] Dictated By: Judy Bravo DO Signed By: <Electronically signed by Judy Bravo DO in OV> 05/05/24 1628 DD/ 0800 TD/TT: 04/24/24 0821 Priming Powder Premix Blender: Liver Panel Reviewed date:05/15/2024 02:16:26 PM Interpretation: Performing Lab:[facility], [address] [place] [phone] Notes/Report: Bilirubin Total 0.4 0.0-1.0 mg/dL Bilirubin Direct 0.1 0.0-0.5 mg/dL Aspartate Amino Transferase 32 5-31 U/L Alanine Aminotransferase 32 0-31 U/L Total Protein 6.8 6.5-8.0 g/dL Albumin Level 4.2 3.5-5.0 g/dL Alkaline Phosphatase 99 39-117 U/L CT cervical spine wo con Reviewed date:05/18/2024 01:47:30 PM Interpretation: Performing Lab: Notes/Report: [address] [address] [address] Scan Report Signed Patient: Maureen Foreman MR#: [id number] : 1940 Acct:[id number] Age/Sex: 83 / F ADM Date: 05/16/24 Loc: HO.ED Attending Dr: Ordering Physician: Segundo Montague Date of Service: 05/16/24 Procedure(s): CT cervical spine wo IV con Accession Number(s): [id number] cc: Segundo Montague; Alton Durham MD Report Number: [id number]: Total DLP = 214.00 mGy-cm EXAMINATION: CT [...] 05/16/2024 12:38 PM EST Dictated By: Wilberto Sanches MD Signed By: <Electronically signed by Wilberto Martel MD in OV> 05/16/24 1238 DD/ 1142 TD/TT: 05/16/24 1218 Priming Powder Premix Blender: [place] [address] CT Scan Report Signed Patient: Maureen Foreman MR#: [id number] : 1940 Acct:[id number] Age/Sex: 83 / F ADM Date: 05/16/24 Loc: HO.ED Attending Dr: Ordering Physician: Segundo Montague Date of Service: 05/16/24 Procedure(s): CT cer vical spine wo IV con Accession Number(s): [id number] cc: Segundo Montague; Alton Durham MD Report Number: [id number]: Total DLP = 214.00 mGy-cm EXAMINATION: CT CERVICAL SPINE WI THOUT CONTRAST CLINICAL INFORMATION: Status post fall. COMPARISON: None available. TECHNIQUE: Contiguous axial arlyn ges through the cervical spine using 3 mm collimation with bon e and soft tissue algorithm. Sagittal and coronal reformatted images acquired. This CT examination was performed using dose optimization techniques as appropriate, various ly including the following: *Automated exposure control *Adjustment of mA an d/or kV according to patient size (this includes techniques or standardized protocols for targeted exams where dose is matched to indication/reason for exam; i.e. extremities or head) *Use of iterative reconstruction technique. DLP: 240 mGy centimeters. FINDINGS: Craniocervical junct ion is intact. Multilevel marginal osteophyte formation, subchondral cyst formation, decreased interverte bral disc height, endplate sclerosis and vacuum phenomenon, C3 C7 mo re conspicuous at C5-6 and C6-7 levels. Under calcinosis, intervertebral disc C3-4. Grade 1 anterolisthe sis, C2-3, C3-4 and C7-T1 likely degenerative. Facet joint hypertro phy bilaterally, C3-4 to C7-T1. C1 is intact. C2 is intact. C3 is intact. C4 is intact. C5 is intact. C6 is intact. C7 is intact. No gross prevertebra l compartment hematoma. Osteopenia versus osteoporosis. Calcified plaques in the carotid arteries, bilaterally. Bilateral apical irene g scarring. C T/CT cervical spine wo IV con IMPRESSION: Multilevel cervical spondylosis C3 C7 without acute fracture or trauma-related listhesis. Fleischner guideline s were followed. Electronically tammie d by: Wilberto Cardoso MD 05/16/2024 12:38 PM [facility] Dictated By: Wilberto Kerr MD Signed By: <Electronically signed by Wilberto Martel MD in OV> 05/16/24 1238 DD/ 1142 TD/TT: 05/16/24 1218 Priming Powder Premix Blender: CT head/brain wo con Reviewed date:05/16/2024 04:41:18 PM Interpretation: Performing Lab: Notes/Report: [address] [address] [address] Scan Report Signed Patient: Maureen Foreman MR#: [id number] : 1940 Acct:[id number] Age/Sex: 83 / F ADM Date: 05/16/24 Loc: HO.ED Attending Dr: Ordering Physician: Generic ED Physician Date of Service: 05/16/24 Procedure(s): CT head/brain wo IV con Accession Number(s): [id number] cc: Alton Duhram MD; Generic ED Physician Report Number: [id number]: Total DLP = 625.00 mGy-cm EXAMINATION: CT [...] by: Roberto Huffman MD 05/16/2024 12:52 PM [facility] Dictated By: Roberto Huffman MD Signed By: <Electronically signed by Roberto Huffman MD in OV> 05/16/24 1252 DD/ 1153 TD/TT: 05/16/24 1218 Priming Powder Premix Blender: [place] [address] CT Scan Report Signed Patient: Maureen Foreman MR#: [id number] : 1940 Acct:[id number] Age/Sex: 83 / F ADM Date: 05/16/24 Loc: HO.ED Attending Dr: Ordering Physician: Generic ED Physician Date of Service: 05/16/24 Procedure(s): CT head/brain wo IV con Accession Number(s): [id number] cc: Alton Durham MD; [facility] ED Physician Report Number: [id number]: Total DLP = 625.00 mGy-cm EXAMINATION: CT HEAD AND FACIAL B ONES WITHOUT CONTRAST CLINICAL INFORMATION: Fall, head strike. COMPARISON: None available. TECHNIQUE: Contiguous axial arlyn ging was performed from the skull base to vertex, and also including a xial CT imaging of the maxillofacial bones without intravenous administration of contrast. Sagittal, coronal, and thin section axial reform atted images were constructed from the axial data set. This CT examination was performed using dose optimization techniques as appropriate, various ly including the following: *Automated exposure control *Adjustment of mA an d/or kV according to patient size (this includes techniques or standardized protocols for targeted exams where dose is matched to indication/reason for exam; i.e. extremities or head) *Use of iterative reconstruction technique DLP: 615 mGy-cm (CT Head) 215 mGy-cm (CT Facia l Bones) FINDINGS: There is no evidence of intracranial hemorrhage or extra-axial fluid collection. There is no mass eff ect, or edema. No CT evidence of acute territorial infarct. Ventricles, sulci, a nd cisterns are normal in size and configuration for patient age. No hydrocephalus. No midline shift. 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 Mild low density supratentorial white [...] intact. The mandible is intact. 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 Incidental note made of a periapical lucency with cortical buccal dehiscence involving tooth #13 (series 21, image 26). C T/CT head/brain wo IV con IMPRESSION: 1. No acute intracra nial abnormalities. No calvarial fracture. 2. There is left preseptal and bryan-zygomatic soft tissue swelling and laceration. 3. There is a mild diastases of the frontozygomatic suture of the left lateral orbit, and t here is an extremely subtle minimally displaced left [...] fractures identified. 6. See the body of r eport for additional ancillary findings. Electronically tammie d by: Roberto Huffman MD 05/16/2024 12:52 PM [facility] Dictated By: Roberto Huffman MD Signed By: <Electronically signed by Roberto Huffman MD in OV> 05/16/24 1252 DD/ 1153 TD/TT: 05/16/24 1218 Priming Powder Premix Blender: CT facial bones wo con Reviewed date:05/16/2024 04:42:06 PM Interpretation: Performing Lab: Notes/Report: [address] [address] [address] Scan Report Signed Patient: Maureen Foreman MR#: [id number] : 1940 Acct:[id number] Age/Sex: 83 / F ADM Date: 05/16/24 Loc: HO.ED Attending Dr: Ordering Physician: Segundo Montague Date of Service: 05/16/24 Procedure(s): CT facial bones wo IV con Accession Number(s): [id number] cc: Segundo Montague; Alton Durham MD Report Number: [id number]: Total DLP = 215.00 mGy-cm EXAMINATION: CT [...] by: Roberto Huffman MD 05/16/2024 12:52 PM [facility] Dictated By: Roberto Huffman MD Signed By: <Electronically signed by Roberto Huffman MD in OV> 05/16/24 1252 DD/ 1153 TD/TT: 05/16/24 1218 Priming Powder Premix Blender: [place] [address] CT Scan Report Signed Patient: Maureen Foreman MR#: [id number] : 1940 Acct:[id number] Age/Sex: 83 / F ADM Date: 05/16/24 Loc: HO.ED Attending Dr: Ordering Physician: Segundo Montague Date of Service: 05/16/24 Procedure(s): CT fac ial bones wo IV con Accession Number(s): [id number] cc: Segundo Montague; Alton Durham MD Report Number: [id number]: Total DLP = 215.00 mGy-cm EXAMINATION: CT HEAD AND FACIAL B ONES WITHOUT CONTRAST CLINICAL INFORMATION: Fall, head strike. COMPARISON: None available. TECHNIQUE: Contiguous axial arlyn ging was performed from the skull base to vertex, and also including a xial CT imaging of the maxillofacial bones without intravenous administration of contrast. Sagittal, coronal, and thin section axial reform atted images were constructed from the axial data set. This CT examination was performed using dose optimization techniques as appropriate, various ly including the following: *Automated exposure control *Adjustment of mA an d/or kV according to patient size (this includes techniques or standardized protocols for targeted exams where dose is matched to indication/reason for exam; i.e. extremities or head) *Use of iterative reconstruction technique DLP: 615 mGy-cm (CT Head) 215 mGy-cm (CT Facia l Bones) FINDINGS: There is no evidence of intracranial hemorrhage or extra-axial fluid collection. There is no mass eff ect, or edema. No CT evidence of acute territorial infarct. Ventricles, sulci, a nd cisterns are normal in size and configuration for patient age. No hydrocephalus. No midline shift. 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 Mild low density supratentorial white [...] intact. The mandible is intact. 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 Incidental note made of a periapical lucency with cortical buccal dehiscence involving tooth #13 (series 21, image 26). C T/CT facial bones wo IV con IMPRESSION: 1. No acute intracra nial abnormalities. No calvarial fracture. 2. There is left preseptal and bryan-zygomatic soft tissue swelling and laceration. 3. There is a mild diastases of the frontozygomatic suture of the left lateral orbit, and t here is an extremely subtle minimally displaced left [...] fractures identified. 6. See the body of r eport for additional ancillary findings. Electronically tammie d by: Roberto Huffman MD 05/16/2024 12:52 PM [facility] Dictated By: Roberto Huffman MD Signed By: <Electronically signed by Roberto Huffman MD in OV> 05/16/24 1252 DD/ 1153 TD/TT: 05/16/24 1218 Priming Powder Premix Blender: Complete Blood Count Man Dif Reviewed date:06/02/2024 12:39:21 PM Interpretation: Performing Lab:[address] [address] Notes/Report: White Blood Count 3.4 4.8-10.8 X10*3/uL [...] te Reviewed date:06/02/2024 12:22:30 PM Interpretation: Performing Lab:[address] [address] Notes/Report: Erythrocyte Sedimentation Rate 2 0-20 MM/HR Patients with polycythemia and many hemoglobin abnormalities may have depressed sed rates whereas patients with anemia may have elevated sed rates. Comprehensive Met. Panel Reviewed date:06/02/2024 12:23:01 PM Interpretation: Performing Lab:[address], [place] [address] Notes/Report: Sodium 142 135-145 mmol/L Potassium 4.4 [...] Dehydrogenase Reviewed date:06/02/2024 12:22:09 PM Interpretation: Performing Lab:[facility], [address] [place] [phone] Notes/Report: Lactate Dehydrogenase 255 122-220 U/L Vitamin B12 and Folate Reviewed date:06/02/2024 04:20:13 PM Interpretation: Performing Lab:[facility], [address] [place] [phone] Notes/Report: Vitamin B12 488 200-900 pg/mL NORMAL 200-900 PG/ML INDETERMINATE 160-199 PG/ML DEFICIENT < 160 PG/ML Folate 13.8 > or = 4.0 ng/mL Reference Values: > or = 4.0 ng/mL < 4.0 ng/mL suggests folate deficiency Methotrexate, aminopterin and folinic acid (leucovorin) are chemotherapeutic agents whose molecular structures are similar to folate; therefore, the Percussion Welding Machine Operator folate assay cannot be used for patients using these drugs. Immunofixation Pnl, Serum Reviewed date:06/07/2024 08:09:13 PM Interpretation: Performing Lab:[address] [address] Notes/Report: IgG 625 187-8274 mg/dL IgA 85 70-320 mg/dL IgM 41 50-300 mg/dL THIS TEST WAS PERFORMED AT: [facility] [address] [place] [phone] ADALID FOURNIER MD Immunofixation Interpretation SEE NOTE Normal pattern. No monoclonal proteins detected. THEO Reflex Titer and Pattern Reviewed date:06/07/2024 08:08:55 PM Interpretation: Performing Lab:[address] [address] Notes/Report: Anti Nuclear Antibody Screen NEGATIVE NEGATIVE [...] AC-0: Negative International Consensus on THEO Patterns (https://doi.org/10.1 515/pxfj-8121-1995) For additional information, please refer to http://education.Movigo.CodeRyte/faq/ ONM964 (This link is being provided for informational/ educational purposes only.) THIS TEST WAS PERFORMED AT: [facility] [address] [place] [phone] ADALID FOURNIER MD Anti Nuclear Antibody Titer TNP Anti Nuclear Antibody Pattern TNP THEO Titer 2 TNP THEO Pattern 2 TNP THEO Titer 3 TNP THEO Pattern 3 TNP Rheumatoid Factor Reviewed date:06/02/2024 04:14:35 PM Interpretation: Performing Lab:[address] [address] Notes/Report: Rheumatoid Factor < 13.0 <15.0 IU/mL Hepatitis B,C Profile Reviewed date:06/02/2024 04:14:21 PM Interpretation: Performing Lab:[facility], [address] [place] [phone] Notes/Report: Hepatitis B Surface Antibody NONREACTIVE Nonreactive Nonreactive: < 8.00 mIU/mL Hepatitis B Core Antibody Nonreactive Nonreactive Hepatitis C Antibody Nonreactive Nonreactive Antibodies to HCV not detected; does not exclude early acute HCV infection. Hepatitis B Surface Antigen Negative Negative HIV Ab/Ag Reviewed date:06/02/2024 04:14:43 PM Interpretation: Performing Lab:[facility], [address] [place] [phone] Notes/Report: HIV AB/AG Nonreactive Nonreactive HIV-1 p24 [...] limit of detection of this assay. The [employer] HIV Ag/Ab Combo assay result and supplemental assay results should be interpreted in conjunction with the patient's clinical presentation, history and other laboratory results. If the results are inconsistent with clinical evidence, additional testing is suggested to confirm the result. US carotid duplex BI Reviewed date:06/09/2024 12:41:10 PM Interpretation: Performing Lab: Notes/Report: [address] [address] Ultrasound Report Signed Patient: Maureen Foreman MR#: [id number] : 1940 Acct:[id number] Age/Sex: 84 / F ADM Date: 06/09/24 Loc: . Attending Dr: Alton Durham MD Ordering Physician: Alton Durham MD Date of Service: 06/09/24 Procedure(s): US carotid duplex BI Accession Number(s): [id number] cc: Alton Durham MD EXAMINATION: US EXTRACRANIAL [...] dated October 02, 2019. Electronically signed by: Wiblerto Cardoso MD 06/09/2024 12:19 PM [facility] Dictated By: Wilberto Sanches MD Signed By: <Electronically signed by Wilberto Martel MD in OV> 06/09/24 1219 DD/ 1127 TD/TT: 06/09/24 1150 Priming Powder Premix Blender: [address] [address] Ultrasound Report Signed Patient: Maureen Foreman MR#: [id number] : 1940 Acct:[id number] Age/Sex: 84 / F ADM Date: 06/09/24 Loc: HO.US Attending Dr: Alton Durham MD Ordering Physician: Alton Durham MD Date of Service: 06/09/24 Procedure(s): US car otid duplex BI Accession Number(s): [id number] cc: Alton Durham MD EXAMINATION: US EXTRACRANIAL KELLY TID DUPLEX, BILATERAL CLINICAL INFORMATION: Carotid artery disease. COMPARISON: October 02, 2019. TECHNIQUE: Real-time ultrasound and Doppler techniques (integrating B-mode 2-D vascular images, Dop pler spectral analysis and color-flow Doppler imaging) were utilized to interrog ate the extracranial carotid arteries, the vertebral arteries a nd proximal subclavian arteries bilaterally. The degree of stenosis i s determined by criteria similar to NASCET. FINDINGS: Right Side: 1. There is irregula r shaped, calcified atherosclerotic plaque seen in the bifurcation/prox imal ICA region. 2. The common caroti d artery PSV proximally is 101 cm/s and distally 115 cm/s. 3. The proximal inte rnal carotid artery velocities are 90 cm/s systolic and 24 cm/s diastolic. 4. The proximal exte rnal carotid artery PSV is 136 cm/s. 5. The vertebral art silva shows antegrade flow. 6. The subclavian ar alireza waveforms are triphasic.. Left Side: 1. There is irregularly-shaped calcified atherosclerotic plaque seen in the bifurcation/prox imal ICA region. 2. The common caroti d artery PSV proximally is 127 cm/s and distally 107 cm/s. 3. The proximal inte rnal carotid artery velocities are 92 cm/s systolic and 20 cm/s diastolic. 4. The proximal exte rnal carotid artery PSV is 125 cm/s. 5. The vertebral art silva shows antegrade flow. 6. The subclavian ar alireza waveforms are triphasic. U S/US carotid duplex BI IMPRESSION: 1. RIGHT: Irregular shaped calcified plaque. 0-49% stenosis by ultrasound criteria. 2. LEFT: Irregular s haped calcified plaque. 0-49% stenosis by ultrasound criteria. 3. There is no roy e in the category severity of disease when compared to the previous stud y dated October 02, 2019. Electronically tammie d by: Wilberto Cardoso MD 06/09/2024 12:19 PM EST RP Dictated By: Wilberto Kerr MD Signed By: <Electronically signed by Wilberto Martel MD in OV> 06/09/24 1219 DD/ 1127 TD/TT: 06/09/24 1150 Priming Powder Premix Blender: US abdomen complete Reviewed date:06/13/2024 12:36:35 PM Interpretation: Performing Lab: Notes/Report: [address] [address] Ultrasound Report Signed Patient: Maureen Foreman MR#: [id number] : 1940 Acct:[id number] Age/Sex: 84 / F ADM Date: 06/13/24 Loc: HO.US Attending Dr: Julee ARELLANOP- Ordering Physician: Julee Asher Date of Service: 06/13/24 Procedure(s): US abdomen complete Accession Number(s): [id number] cc: Alton Durham MD; Julee Asher [facility] CLINICAL HISTORY: R74.01 - Elevation of levels [...] 06/13/24 1026 DD/ 1025 TD/TT: 06/13/24 1025 Priming Powder Premix Blender: [place] [address] Ultrasound Report Signed Patient: Maureen Foreman MR#: [id number] : 1940 Acct:[id number] Age/Sex: 84 / F ADM Date: 06/13/24 Loc: HO.US Attending Dr: Julee LINTON-DG Ordering Physician: Julee Asher Date of Service: 06/13/24 Procedure(s): US abd omen complete Accession Number(s): [id number] cc: Alton Durham MD; Julee Asher [employer]-DG CLINICAL HISTORY: R7 4.01 - Elevation of levels of liver transaminase levels US abdomen complete with duplex and color Doppler Comparison: US/SR - US RENAL BI - 06/28/23 08:[address]/SR - CT ABDOMEN P JUAN CARLOS WO IV CON - 01/20/23 16:29 EDT [...] 06/13/24 1026 DD/ 1025 TD/TT: 06/13/24 1025 Priming Powder Premix Blender: IRON PROFILE Reviewed date:07/03/2024 12:28:58 PM Interpretation: Performing Lab:[facility], [address] [place] [phone] Notes/Report: Iron 123 30-160 mcg/dL Total Iron Binding Capacity 338 228-428 mcg/dL Percent Iron Saturation 36 15-50 % Unsaturated Iron Binding 215 Ferritin Reviewed date:07/03/2024 12:22:12 PM Interpretation: Performing Lab:[facility], [address] [place] [phone] Notes/Report: Ferritin 32 10-250 ng/mL C Reactive Protein Reviewed date:07/03/2024 12:21:54 PM Interpretation: Performing Lab:[facility], [address] [place] [phone] Notes/Report: C Reactive Protein < 0.10 < or = 0.50 mg/dL Ceruloplasmin Reviewed date:07/13/2024 12:40:30 PM Interpretation: Performing Lab:[facility], [address] [place] [phone] Notes/Report: Ceruloplasmin 26 14-48 mg/dL THIS TEST WAS PERFORMED AT: [facility] [address] [place] [phone] ADALID FOURNIER MD Alpha Fetoprotein Reviewed date:07/13/2024 04:14:53 PM Interpretation: Performing Lab:[facility], [address] [place] [phone] Notes/Report: Alpha Fetoprotein 5.3 Reference Range: <6.1 The use of AFP as a tumor marker in females is not recommended. This test was performed using the Amt Adolfo chemiluminescent method. Values obtained from different assay methods cannot be used interchangeably. AFP levels, regardless of value, should not be interpreted as absolute evidence of the presence or absence of disease. THIS TEST WAS PERFORMED AT: [facility] [address] [address] ADALID FOURNIER MD Liver Fibrosis Pnl Reviewed date:07/13/2024 12:40:22 PM Interpretation: Performing Lab:[facility], [address] [place] [phone] Notes/Report: Liver Fibrosis Score 0.25 Liver Fibrosis [...] a>0.62 and a<=1.00 : A3 (severe activity) DWE-Qahqy-4-Macroglobul in 198 106-279 mg/dL FIB-Haptoglobin 77 43-212 mg/dL FIB-Apolipoprotein A1 223 101-198 mg/dL FIB-Total Bilirubin 0.6 0.2-1.2 mg/dL FIB-GGT 27 3-65 U/L FIB-ALT 18 6-29 U/L Reference ID [id number] Footnote SEE NOTE The reliability of results [...] The performance characteristics have been determined by [facility]. It has not been cleared or approved by the U.S. Food and Drug Administration. Performance characteristics refer to the analytical performance of the test. [employer], [employer], the associated logo, [employer] and all associated [employer] patel are the registered trademarks of [employer]. All third republican patel - (R) and (TM) - are the property of their respective owners. (C) 9020-1578 [employer]. All rights reserved. THIS TEST WAS PERFORMED AT: [facility] [facility] [address] [place] [address] DELMER PRIETO MD,PHD,LOPEZ Mitochondrial Antibody Reviewed date:07/12/2024 07:07:20 PM Interpretation: Performing Lab:[facility], [address] [place] [phone] Notes/Report: Mitochondrial Antibodies NEGATIVE NEGATIVE The specimen was negative for cytoplasmic antibodies, however additional staining was observed suggesting the presence of Antinuclear Antibodies. Consider requesting order code 249, THEO Screen, IFA with Reflex to Titer and Pattern, or order code 79481, THEO Screen, IFA w/reflex Titer/Pattern, and Reflex to Multiplex 11 Ab [place], if clinically indicated. THIS TEST WAS PERFORMED AT: [facility] [address] [place] [phone] ADALID FOURNIER MD Mitochondrial Ab Titer TNP Smooth Muscle Antibody Reviewed date:07/12/2024 07:07:11 PM Interpretation: Performing Lab:[address] [address] Notes/Report: Smooth Muscle Antibody <20 <20 U [...] type 1. THIS TEST WAS PERFORMED AT: [facility] [facility] [address] YANET KAMINSKI MD,PHD Complete Blood Count Auto Di ff Reviewed date:08/03/2024 12:56:05 PM Interpretation: Performing Lab:[facility], [address] [place] [phone] Notes/Report: White Blood Count 2.4 4.8-10.8 X10*3/uL [...] X10*3/uL NRBC Abs Auto 0.000 0.0-0.012 X10*3/uL COR RECTED REPORT COR RECTED REPORT Comprehensive Met. Panel Reviewed date:08/03/2024 04:21:18 PM Interpretation: Performing Lab:[facility], [address] [place] [phone] Notes/Report: Sodium 142 135-145 mmol/L Potassium 3.9 [...] Gold Reviewed date:08/03/2024 10:57:15 AM Interpretation: Performing Lab:[facility], [address] [place] [phone] Notes/Report: Hold Gold See Note Specimen held untested for 24 hours; Call to request Chemistry testing. SLIDE REVIEW Reviewed date:08/03/2024 10:54:08 AM Interpretation: Performing Lab:[facility], [address] [place] [phone] Notes/Report: SLIDE REVIEW VERIFIED US thyroid Reviewed date:08/11/2024 09:47:47 AM Interpretation: Performing Lab: Notes/Report: [address] [address] Ultrasound Report Signed Patient: Maureen Foreman MR#: [id number] : 1940 Acct:[id number] Age/Sex: 84 / F ADM Date: 08/10/24 Loc: HO.US Attending Dr: Alton Durham MD Ordering Physician: Alton Durham MD Date of Service: 08/10/24 Procedure(s): US thyroid Accession Number(s): [id number] cc: Alotn Durham MD EXAMINATION: US THYROID HISTORY: NEUTROPENIA [...] signed by Heber Lucas MD in OV> 08/10/2420 DD/ 0746 TD/TT: 08/10/24 0810 Priming Powder Premix Blender: [address] [address] Ultrasound Report Signed Patient: Maureen Foreman MR#: [id number] : 1940 Acct:[id number] Age/Sex: 84 / F ADM Date: 08/10/24 Loc: HO.US Attending Dr: Alton Durhma MD Ordering Physician: Alton Durham MD Date of Service: 08/10/24 Procedure(s): US thyroid Accession Number(s): [id number] cc: Alton Durham MD EXAMINATION: US THYROID [...] point) Composition: Mostly solid (2 points) Calcifications: Punc soares calcifications (3 points) Total points: 6 TIRADS: TR4: Moderat jamie suspicious. U S/US thyroid IMPRESSION: Moderately suspiciou s nodule at [...] if >= 1.0 cm TR5 (>=7 points): Hi ghly Suspicious, FNA if >= 1.0 cm, Follow if >= 0.5 cm Electronically tammie d by: Heber Lucas MD 08/10/2024 09:20 AM EDT Dictated By: Heber Lucas MD Signed By: <Electronically signed by Heber Lucas MD in OV> 08/10/24 0920 DD/ 0746 TD/TT: 08/10/24 0810 Priming Powder Premix Blender: Nely Sierra date:08/31/2024 05:00:30 PM Interpretation: Performing Lab:[facility], [address] [place] [phone] Notes/Report: Nely Dubose See Note Specimen held untested for 24 hours; Call to request Chemistry testing. Complete Blood Count Auto Di ff Reviewed date:11/03/2024 03:35:42 PM Interpretation: Performing Lab:[facility], [address] [place] [phone] Notes/Report: White Blood Count 2.7 4.8-10.8 X10*3/uL Red Blood Count 4.75 4.20-5.50 X10*6/uL Hemoglobin 14.7 12.0-16.0 g/dl Hematocrit 43.4 37.0-47.0 % Mean Corpuscular Volume 91.4 80.0-98.0 fL Mean Corpuscular Hemoglobin 30.9 27.0-33.0 pg Mean Corpuscular HGB Conc 33.9 31.0-35.0 g/dl Red Cell Distribution Width 13.3 11.0-16.0 % Platelet Count 131 160-400 X10*3/uL Mean Platelet Volume 10.5 9.4-12.3 fL Neutrophils Percent Auto 59.6 45-73 % Imm Gran Pct Auto 0.4 0.0-0.4 % Lymphocytes Percent Auto 26.8 20-40 % Monocytes Percent Auto 9.4 2-11 % Eosinophils Percent Auto 3.0 0-4 % Basophils Percent Auto 0.8 0-2 % NRBC Pct Auto 0.0 0.0-0.2 /100WBC Neutrophils Absolute Auto 1.6 2.0-8.3 x10*3/uL Imm Gran Abs Auto 0.01 0.00-0.03 X10*3/uL Lymphocytes Absolute Auto 0.7 1.2-4.9 X10*3/uL Monocytes Absolute Auto 0.3 0.1-1.2 X10*3/uL Eosinophils Absolute Auto 0.1 0.0-0.4 X10*3/uL Basophils Absolute Auto 0.0 0.0-0.2 X10*3/uL NRBC Abs Auto 0.000 0.0-0.012 X10*3/uL Comprehensive Met. Panel Reviewed date:11/03/2024 03:36:22 PM Interpretation: Performing Lab:[facility], [address] [place] [phone] Notes/Report: Sodium 141 135-145 mmol/L Potassium 3.7 3.3-5.1 mmol/L Chloride 108 96-108 mmol/L Carbon Dioxide 26 22-29 mmol/L Anion Gap 11 12-20 Blood Urea Nitrogen 20 9-16 mg/dL Creatinine 0.57 0.5-1.4 mg/dL Creatinine Clr Calc Pharmacy 62.6 Provided height and weight: 172.72 cm, 55 kg. eGFR (calculated from the MDRD study equation) and eCrCl (calculated from the Cockcroft-Gault equation) are based on different parameters and may not yield comparable results. If eCrCl result is absurd, please check patient's height/weight. Estimated Glomerular Filt Rate > 60 Chronic Kidney Disease: Estimated GFR < 60 mL/min/1.73m2 Severe Kidney Disease: Estimated GFR < 15 mL/min/1.73m2 Glucose Random 129 60-115 mg/dL Calcium 9.4 8.4-10.2 mg/dL Bilirubin Total 0.6 0.0-1.0 mg/dL Aspartate Amino Transferase 27 5-31 U/L Alanine Aminotransferase 25 0-31 U/L Total Protein 6.2 6.5-8.0 g/dL Albumin Level 4.3 3.5-5.0 g/dL Alkaline Phosphatase 73 39-117 U/L Lactate Dehydrogenase Reviewed date:11/02/2024 08:36:04 PM Interpretation: Performing Lab:[facility], [address] [place] [phone] Notes/Report: Lactate Dehydrogenase 230 122-220 U/L Hold Gold Reviewed date:11/02/2024 08:26:21 PM Interpretation: Performing Lab:[facility], [address] [place] [phone] Notes/Report: Hold Gold See Note Specimen held untested for 24 hours; Call to request Chemistry testing. Pathology Reviewed date:11/13/2024 01:02:31 PM Interpretation: Performing Lab:[facility], [address] [place] [phone] Notes/Report: ----- Name: Delmy Foreman Age/Sex: 84/F : 1940 Unit#: [id number] Attend Dr: Renay Hudson MD Re11/09/24 Status : [facility] Location: [facility] Disch: ----- SPEC : [id number] RECD : 11/09/24-0 STATUS: DEREK LIMA NUM: [id number] ASHLI: 11/09/24-1040 [facility] DR: Renay Hudson MD ENTERED: 11/09/24-11 55 SP TYPE: Surgical OTHR DR: Alton Durham MD ORDERED: HE Stain/9, Gross Micro L4/4, IHC/2, Special st. 2/3, H. pylori/2, AB/PAS/3 Diagnosis A. Duodenum, biopsy: Duodenal mucosa within normal limits. B. Stomach, biopsy: Oxyntic mucosa with mild chronic inactive inflammation; no Helicobacter organis ms seen. C. Stomach, polypect julio cesar: Hyperplastic mucosal polyp with background mild chronic inactive inflammatio n; no Helicobacter organisms seen. D. Esophagus, distal , biopsy: Squamous mucosa within normal limits; no inflammation seen. Clinical History Pre-Op Dx: Ulcer of esophagus without bleeding Post-Op Dx: Dysmotil ity, question gastritis, fundic gland polyp, gastric polyp, esophageal stricture Microscopic Description A-D. Microscopic sec tions examined. No metaplastic changes are seen, supported by AB/PAS stains (A, B and C); no Helicobacter organisms are seen, supported by H. pylori immunostain (B and C). Material Received A. Duodenum bx - spe cimen also sent for disaccharidases test B. Stomach bx C. Gastric polyp D. Distal esophageal bx Gross Description Received in 4 parts. A. Received in forma daniel labeled ?duodenum biopsy? are 2 fragments of pink white soft tissue measuring 0.3 and 0. 4 cm in greatest dimension which are wrapped in lens paper and entirely submitted for micros copic examination, 2 pieces in cassette A. B. Received in forma daniel labeled ?stomach biopsy? are 2 fragments of paige-white soft tissue measuring 0.2 and 0. 3 cm in greatest dimension which are wrapped in lens paper and entirely submitted for micros copic examination, 2 pieces in cassette B. CONTINUED ON NEXT PAGE ----- Name: AhsanDelmy jamaal Mcintyre Age/Sex: 84/F : 1940 [id number]#: [id number] Attend Dr: Renay Hudson MD Re11/09/24 Status : [facility] Location: [facility] Disch: ----- SPEC : [id number] RECD : 11/09/24-115 STATUS: DEREK LIMA NUM: [id number] ASHLI: 11/09/24-1040 [facility] DR: Renay Hudson MD ENTERED: 11/09/24-11 55 SP TYPE: Surgical OTHR DR: Alton Durham MD ORDERED: HE Stain/9, Gross Micro L4/4, IHC/2, Special st. 2/3, H. pylori/2, AB/PAS/3 Gross Description (Continued) C. Received in forma daniel labeled ?gastric polyp? is a fragment of pink-paige soft tissue measuring 0.4 cm in greatest dimension which is wrapped in lens paper and entirely submitted for microscopic examination, 1 piece in cassette C. D. Received in forma daniel labeled ?distal esophageal biopsy? is a fragment of translucent, white soft tissue measuring 0.3 cm in greatest dimension which is wrapped in lens paper and entirely submitted f or microscopic examination, 1 piece in cassette D. ([facility]) Special studies orde red and performed: Immunostain for H. pylori on B and C; AB/PAS stains on A, B and C IHC S/NG Disclaimer NOTE: Unless otherwi se stated, all tissue is formalin-fixed and paraffin-embedded. Some or all of the immunohistochemical tests reported herein may have been developed and their performance characteristics determined by [facility]. They have not been cleared or appr baltazar by the U.S. Food and Drug Administration (FDA). However, the FDA has determined that such clearance or approval is not necessary. This laboratory is certified under the Clinical Laboratory Improvement Amendments of 1988 (CLIA) as qualified to perform high complexity clinical laboratory testing. Copies To: Alton Durham MD [facility] [address] [place] [address] Renay Hudson MD [facility] [address] [place] [address] ----- Signed (signature on file) Camden Shine MD 11/13/24 0958 ----- END OF REPORT Disaccharidases Reviewed date:11/15/2024 03:49:36 PM Interpretation: Performing Lab:[facility], [address] [place] [phone] Notes/Report: Comment Duodenum BX Lactase 32.0 15.0-45.5 Result Units: uM/min/g prot Sucrase 72.7 25.0-69.9 Result Units: uM/min/g prot Maltase 243.5 100.0-224.4 Result Units: uM/min/g prot Palatinase 19.2 5.0-26.3 Result Units: uM/min/g prot Please interpret results with caution. The minimum protein required is 0.3 mg, the enzyme levels may be artifactually elevated (a false negative result). This test was developed and its analytical performance characteristics have been determined by [employer]. It has not been cleared or approved by the FDA. This assay has been validated pursuant to the CLIA regulations and is used for clinical purposes. THIS TEST WAS PERFORMED AT: [facility] [facility] [address] [place] [address] DELMER PRIETO MD,PHD,LOPEZ Reason For Referral No Information Medications Medication [...] Administered Flu Vaccine IM Intramuscular 01/26/2012 Administered [employer] Flu Vaccine Unknown 02/11/2012 Administered Flu Vaccine IM Intramuscular 02/22/2013 Administered [employer] Tetanus Unknown 01/29/2006 Administered Prevnar 13 IM Intramuscular 04/10/2013 Administered zzz Unknown 04/10/2013 Administered Flu Vaccine Unknown 02/14/2014 Administered [employer] TDaP Unknown 03/21/2014 Administered [facility] Fluarix Quadrivalent IM Intramuscular 02/26/2015 Administered [employer] Flu Vaccine Unknown 02/15/2016 Administered [employer] Fluarix Quadrivalent Unknown 02/17/2017 Administered [employer] Flu Vaccine IM Intramuscular 01/21/2018 Administered pt wa s given the vaccine at [facility] [place] on [address] Fluarix Quadrivalent Unknown 02/03/2019 Administered [employer] PPSV23 (Pnemovax) IM Intramuscular 02/10/2019 Administered Influenza High Dose Unknown 01/23/2020 Administered [employer] zzz Unknown 02/10/2019 Administered zInfluenza Unknown 01/23/2020 Administered SARS-COV-2 Moderna Unknown 05/24/2020 Administered SARS-COV-2 Moderna Unknown 06/18/2020 Administered Influenza High Dose Unknown 02/12/2021 Administered [employer] SARS-COV-2 Moderna Unknown 03/18/2021 Administered [facility] Influenza [...] Problem Status W/U Status Risk Notes Problem 521785673 Thyroid nodule (E04.1) Active confirmed Problem 343225908 Neutropenia (D70.9) Active confirmed Problem 790895622 Lung nodule seen on imaging study (R91.1) Active confirmed Problem Non-toxic single thyroid nodule (593131896) Nontoxic single thyroid nodule (E04.1) Active confirmed Problem 5626455 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) Active confirmed Problem Disorder of lumbar disc (559523391) Lumbar disc disease (M51.9) Active confirmed Problem 98935263 Essential hypertension (I10) Active confirmed Problem 791933610 Lung nodule (R91.1) Active confirmed Problem 707916498 Esophageal dysmotility (K22.4) Active confirmed Problem 269598395 History of kidne y stones (Z87.442) Active confirmed Problem 951714345 Cervical disc disease (M50.90) Active confirmed Problem 68615691 Sciatica of left side (M54.32) Active confirmed Problem 678854562 Neutropenia, unspecified type (D70.9) Active confirmed Problem 71089023 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) Active confirmed Problem 28739331 Sciatica of righ t side (M54.31) Active confirmed Problem 70048378 Elevated cholesterol (E78.00) Active confirmed Problem 104035107 Esophageal spasm (K22.4) Active confirmed Problem 89490268972021 Adnexal cyst (N94.9) Active confirmed Problem 223417491 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) Active confirmed Problem 20028722 Achalasia (K22.0) Active confirmed Problem 68894801 Paresthesia (R20.2) Active confirmed Problem 271589645318209 Atherosclerosis of both carotid arteries (I65.23) Active confirmed Problem 658143647 Abnormal mammogr am of both breasts (R92.8) Active confirmed Problem 577481270 Esophageal dysfunction (K22.4) Active confirmed Problem 608014836 Tingling of righ t upper extremity (R20.2) Active confirmed Problem 563917745 Gastroesophageal reflux disease with esophagitis without hemorrhage (K21.00) Active confirmed Problem 837574118 Porokeratosis (Q82.8) Active confirmed Problem 197316415 Hepatic granulom a (K75.3) Active confirmed Problem 782404667 Mild carotid art silva disease (I77.9) Active [...] Alton Durham MD [address] [place] [id number] 01/13/2024 Alton Durham Hypokalemia E87.6 Alton Durham MD [address] [place] [address] [id number] 02/03/2024 Alton Durham Hx of hypokalemia Z86.39 Alton Durham MD [address] [place] [address] [id number] 03/07/2024 Alton Durham Blood tests for rout ine general physical examination Z00.00 ; Neutropenia D70.9 ; Elevated cholesterol E78.00 and Essential hypertension I10 Alton Durham MD [address] [place] [address] [id number] 04/04/2024 Alton Durham Neutropenia D70.9 Alton Durham MD [address] [place] [address] [id number] 05/09/2024 Alton Durham Gastroesophageal ref lux disease with esophagitis without hemorrhage K21.00 Alton Durham MD [address] [place] [address] [id number] 05/19/2024 Alton Durham Status post fall Z91 .81 ; Mild carotid artery disease I77.9 and Hypokalemia E87.6 Alton Durham MD [address] [place] [address] [id number] 08/31/2024 Alton Durham Elevated cholesterol E78.00 ; AA (alcohol abuse) 305.00 and Hypokalemia E87.6 Alton Durham MD [address] [place] [address] [id number] 03/14/2024 Alton Jeimyardier Neutropenia D70.9 ; Elevated cholesterol E78.00 ; Thyroid nodule E04.1 ; Esophageal dysfunction K22.4 ; Hypokalemia E87.6 ; Essential hypertension I10 ; Colon cancer screening Z12.11 and Depression screening Z13.31 Alton Durham MD [address] [place] [address] [id number] 04/14/2024 Alton Durham Neutropenia D70.9 an d Gastroesophageal reflux disease with esophagitis without hemorrhage K21.00 Alton Durham MD [address] [place] [address] [id number] 07/11/2024 Alton Durham Elevated LFTs R79.89 ; Elevated cholesterol E78.00 and Atherosclerosis of both carotid arteries I65.23 Alton Durham MD [address] [place] [address] [id number] 09/05/2024 Alton Durham Neutropenia D70.9 ; Esophageal dysmotility K22.4 ; Elevated cholesterol E78.00 ; Mild carotid artery disease I77.9 and Nontoxic single thyroid nodule E04.1 Alton Durham MD [address] [place] [address] [id number] 01/25/2024 Alton Durham MD [address] [place] [address] [id number] 05/18/2024 Alton Durham Bilateral carotid artery disease I77.9 Alton Durham MD [address] [place] [address] [id number] 05/22/2024 Alton Durham MD [address] [place] [address] [id number] 06/09/2024 Alton Durham MD [address] [place] [address] [id number] 06/27/2024 Alton Durham MD [address] [place] [address] [id number] 07/13/2024 Alton Durham MD [address] [place], [place] [id number] 08/08/2024 Alton Durham Atherosclerosis of b oth carotid arteries I65.23 Alton Durham MD [address] [place], [place] [id number] 08/11/2024 Alton Durham Thyroid nodule E04.1 Assessments Encounter Date Diagnosis (ICD Code) Assessment Notes Treatment Notes Treatment Clinical Notes Section Notes 01/13/2024 Hypokalemia (ICD-10 - E87.6) 02/03/2024 Hx [...] us. 08/31/2024 Elevated cholesterol (ICD-10 - E78.00) 03/14/2024 Neutropenia (ICD-10 - D70.9) stable, pending [...] LFTs (ICD-10 - R79.89) contact Carmen at [facility] to discuss/ is most [...] 08/31/2024 AA (alcohol abuse) (ICD9-CM - 305.00) 03/14/2024 Thyroid nodule (ICD-10 - E04.1) will [...] - I10) 08/31/2024 Hypokalemia (ICD-10 - E87.6) 03/14/2024 Esophageal dysfunction (ICD-10 - K22.4) on [...] Provider Name:Alton Joiner ier, 03/09/2025 07:45:00 AM, [address] [place] [address], [address], [place], [place], [phone], Provider Name:Alton Joiner ier, 03/16/2025 08:00:00 AM, [address] [place] [address], [address], [place], [place], [phone], Insurance Providers Payer Name Payer Address Payer Phone Subscriber Number Group Number Insured Name Patient Relationship to Insured Coverage Start Date Coverage End Date MEDICARE [facility] [address] [place] [address] [id number] Maureen Foreman Self - patient is the insured [facility] [address] [place] [phone] [id number] Maureen Foreman Self - patient is [...]
== END 2025-01-02 07:48 | disposition home or self-care (01) ==
LOC: HO.US 07:47
PROVIDERS: PCP Internal Medicine; Visit Provider Urology
DX: N20.0 Calculus of kidney (principal)
CPT/HCPCS: 76775

== ENCOUNTER → 2025-01-02 07:52 | Outpatient (BNV) | payer MEDICARE, OTHER, SELFPAY | PROVIDERS: PCP Internal Medicine; Visit Provider Radiology Diagnostic Radiology | DX: N20.0 Calculus of kidney (principal) | CPT/HCPCS: 76775 ==

== ENCOUNTER 2025-01-09 07:35 | Outpatient (AMB) | payer MEDICARE, OTHER, SELFPAY ==
--- OUTSIDE RECORDS SUMMARY | 2023-09-16 10:35 | XMS_ITS ---
Author Organization [facility] Address [address] [place] [phone] Care Team Providers Care Small Animal Caretaker Name Role Phone Marva GUILLAUME, Alton Primary Care Provider Bean Cortes Jr REASON FOR VISIT BELCHING Encounters Encounter Location Date Provider Diagnosis [facility] [address] [place] [phone] 09/16/2023 Bean Holley Jr Plan Of Treatment No Information Progress Notes * ABEL WHITEANCEDOB:[birth year] (84 yo F)Acc No.[id number]:09/16/2023 Progress Notes Patient: ARINA LEIVA Provider: Glenn Holley MD :1940 A ge:83 Y S ex:Female Date:09/16/2023 Address:[address] [place], [place] [id number] Pcp:Alton Durham MD Subjective: * Chief Complaints: * 1 . BELCHING. * Medical History: Objective: * Vitals: Assessment: Plan: * Treatment: * * The named appointment provid er may or may not be the originator of this progress note, and it is not deemed complete until electronically signed by the appointment provider. Sign off status: Pending * Provider: Glenn Holley MD Date: 09/16/2023 Generated for Nando baldwin/Douglas/eTcharisseitting on: 0 01/09/2025 07:44 AM EDT
--- OUTSIDE RECORDS SUMMARY | 2024-08-08 09:12 | XMS_ITS ---
Author Organization Alton Durham MD Address [address] [place] [phone] Care Team Providers Care E Commerce Marketing Manager Name Role Phone Marva Alton Primary Care Provider REASON FOR VISIT refill Medications Medication SIG (Take, Route, Frequency, Duration) Notes Start Date End Date Status Rosuvastatin Calcium 20 MG take 1 tablet by mouth every day Orally Once a day for 90 days Active Encounters Encounter Location Date Provider Diagnosis Alton Durham MD [address] [place] [phone] 08/08/2024 Alton Durham Atherosclerosis of b oth [...] Provider Name:Alton wick, 03/09/2025 07:45:00 AM, [address], [address], [place], [place], [phone], Provider Name:Alton Joiner ier, 03/16/2025 08:00:00 AM, [address] [facility], [address], [place], [place], [phone], Progress Notes * Maureen WHITE JDOB: (84 yo F)Acc No.[id number]:08/08/2024 Patient: Kena Maureen JUAREZ :1940 A ge:84 Y S ex:Female Address:[address] [place] [address] [place] [address] * Refills Refill Rosuvastatin Calcium Tablet, 20 MG, Orally, 90, take 1 tablet by mouth every day, Once a day, 90 days, Refills=3 * true * Date: Generated for Nando baldwin/Douglas/Stormyitting on: 0 01/09/2025 07:44 AM EDT
--- OUTSIDE RECORDS SUMMARY | 2024-08-11 05:44 | XMS_ITS ---
Author Organization Alton Durham MD Address [address] [place] [phone] Care Team Providers Care Machinery Rigger Name Role Zahra JeimyAlton staley Primary Care Provider [phone] REASON FOR VISIT Thyroid US due Encounters Encounter Location Date Provider Diagnosis Alton Durham MD [address] [facility] [place] [phone] 08/11/2024 Alton Durham Thyroid nodule E04.1 Assessments [...] 03/09/2025 07:45:00 AM, [address], [address] [place] [address] [place], [phone], Provider Name:Alton Joiner ier, 03/16/2025 08:00:00 AM, [address], [address], [place], [phone], Progress Notes * KATELYNCHANTALEMaureen JDOB: (84 yo F)Acc No.[id number]:08/11/2024 Patient: Kena LUCIANOCHRISTINA Maureen Francisco Javier :1940 A ge:84 Y S ex:Female Address:[address] [place] [address] Subjective: * Chief Complaints: * T hyroid US due * Medical History: * Surgical History: * Hospitalization/Major Diagno stic Procedure: * Medications: Objective: * Vitals: * Physical Examination: Assessment: * Assessment: 1. T hyroid nodule - E04.1 Plan: * Treatment: * Procedure Codes: * true * Date: Generated for Nando baldwin/Douglas/eTransmitting on: 0 01/09/2025 07:43 AM EDT
--- OUTSIDE RECORDS SUMMARY | 2024-08-31 03:00 | XMS_ITS ---
Author Organization Alton Durham MD Address [address] [place], [place] [phone] Care Team Providers Care Evaporator Operator Name Role Phone MarvaAlton Primary Care Provider [phone] Results Component Value Reference Range Notes Liver Panel Reviewed date:08/31/2024 05:02:52 PM Interpretation: Performing Lab:[facility], [address] [place] [phone] Notes/Report: Bilirubin Total 0.7 0.0-1.0 mg/dL Bilirubin Direct 0.3 0.0-0.5 mg/dL Aspartate Amino Transferase 34 5-31 U/L Alanine Aminotransferase 27 0-31 U/L Total Protein 6.4 6.5-8.0 g/dL Albumin Level 4.0 3.5-5.0 g/dL Alkaline Phosphatase 89 39-117 U/L Potassium Reviewed date:08/31/2024 05:00:46 PM Interpretation: Performing Lab:[facility], [address] [place] [phone] Notes/Report: Potassium 3.8 3.3-5.1 mmol/L Lipid Panel with Reflex Reviewed date:08/31/2024 05:02:44 PM Interpretation: Performing Lab:[facility], [address] [facility], [place] [address] Notes/Report: Triglycerides 32 <150 mg/dL Desirable Triglyceride: [...] Location Date Provider Diagnosis Alton Durham MD [address] [place] [address] [address] [place], [place] [phone] 08/31/2024 Alton Durham Elevated cholesterol E78.00 ; AA (alcohol abuse) 305.00 and Hypokalemia E87.6 Assessments Encounter Date Diagnosis (ICD Code) Assessment Notes Treatment Notes Treatment Clinical Notes Section Notes 08/31/2024 Elevated cholesterol (ICD-10 - E78.00) 08/31/2024 AA (alcohol abuse) (ICD9-CM - 305.00) 08/31/2024 Hypokalemia (ICD-10 - E87.6) Plan Of Treatment Next Appt Details Provider Name:Alton wick, 03/09/2025 07:45:00 AM, [address] [place] [address], Suite [facility], [place], [place], [phone], Provider Name:Alton wick, 03/16/2025 08:00:00 AM, [address] [place] [address], [place] [address], [place], [place], [phone], Progress Notes * CHRISTOPHER Maureen JDOB: (84 yo F)Acc No.[id number]:08/31/2024 Progress Note Patient: Maureen LEIVA Provider: France Durham MD :1940 A ge:84 Y S ex:Female Date:08/31/2024 Address:[address] [place], [place] [phone] Subjective: * Chief Complaints: * 1 . [...] 08/31/2024 Generated for Nando baldwin/Douglas/Mary Ellen on: 0 01/09/2025 07:44 AM EDT
--- OUTSIDE RECORDS SUMMARY | 2024-09-05 04:45 | XMS_ITS ---
Author Organization Alton Durham MD Address [address] [place] [phone] Care Team Providers Care Asphalt Paving Supervisor Name Role Phone Alton Durham Primary Care [...] Date Provider Diagnosis Alton Durham MD [address] [place] [address] [address] [place], [place] [phone] 09/05/2024 Alton Durham Neutropenia D70.9 ; Esophageal [...] thyroid 09/05/2025 Next Appt Details Provider Name:Alton Joiner ier, 03/09/2025 07:45:00 AM, [address] [facility], [address], [place], [place], [phone], Provider Name:Alton Joiner ier, 03/16/2025 08:00:00 AM, [address] [facility], [address], [place], [place], [phone], Progress Notes * Maureen WHITE JDOB: (84 yo F)Acc No.[id number]:09/05/2024 Progress Notes Patient: Maureen LEIVA Provider: France Durham MD :1940 A ge:84 Y S ex:Female Date:09/05/2024 Address:[address] [place] [address] [id number] Subjective: * Chief Complaints: * 6 month [...] with the patient * Allergies: i vp purchasing dye: rashBactrim: hives over entire bodyKeflex: rashCipro: [...] Durham MD Date: 0 09/05/2024 Generated for Printi ng/Bubbag/eTransmitting on: 0 01/09/2025 07:44 AM EDT History and Physical Notes * [...]
--- OUTSIDE RECORDS SUMMARY | 2025-01-04 09:53 | XMS_ITS ---
Author Organization Alton Durham MD Address [address] [place] [phone] Care Team Providers Care Guitar Technician Name Role Phone MarvaAlton Primary Care Provider REASON FOR VISIT us renal arlene orders Encounters Encounter Location Date Provider Diagnosis Alton Durham MD 10 [facility] [address] [place] [id number] 01/04/2025 Alton Durham Calculus of kidney N20.0 Assessments Encounter Date Diagnosis (ICD Code) Assessment Notes Treatment Notes Treatment Clinical Notes Section Notes 01/04/2025 Calculus of kidney (ICD-10 - N20.0) Plan Of Treatment Future Test Test Name Order Date US RENAL BILATERAL 01/04/2026 Next Appt Details Provider Name:Alton wick, 03/09/2025 07:45:00 AM, [address], Suite [facility], [place], [place], [phone], Provider Name:Alton wick, 03/16/2025 08:00:00 AM, [address], [address], [place], [place], [phone], Progress Notes * Maureen WHITE JDOB: (84 yo F)Acc No.[id number]:01/04/2025 Patient: Maureen LEIVA :1940 A ge:84 Y S ex:Female Address:[address] [place] [id number] Subjective: * Chief Complaints: * U s renal arlene orders * Medical History: * Surgical History: * Hospitalization/Major Diagno stic Procedure: * Medications: Objective: * Vitals: * Physical Examination: Assessment: * Assessment: 1. C alculus of kidney - N20.0 Plan: * Treatment: * Procedure Codes: * true * Date: Generated for Nando baldwin/Douglas/eTimeldasmitting on: 0 01/09/2025 07:44 AM EDT
--- NOTE | 2025-01-09 07:34 | MHC.OFFVIS ---
Intake Visit Reasons: 1y/US Intake Note: Patient is Present for 1 yr Follow Urology Medication: Vitamin B6,Potassium Antibiotic Allergies:Cephalexin, Sulfa, Blood Thinners: None Imaging : ultrasound 01/02/2025 Feather Sawyer Required: No Accompanied by: Self / Same As Patient Allergies cephalexin (From KEFLEX) Allergy (Severe, Verified 01/09/25 08:21) RASH Sulfa (Sulfonamide Antibiotics) (SULFA (SULFONAMIDE ANTIBIOTICS)) Allergy (Severe, Verified 01/09/25 08:21) INTSERNAL AND EXTERNAL RASH/INFECTION Iodinated Contrast Media (IV Dye, Iodine Containing) Allergy (Intermediate, Verified 01/09/25 08:21) HIVES,REDNESS + SWELLING sulfamethoxazole (From BACTRIM) Allergy (Intermediate, Verified 01/09/25 08:21) INTERNAL AND EXTERNAL RASH/ INFECTION Medication List - Last Reconciled 01/09/25 by SHAILA Mcnulty- esomeprazole magnesium 20 mg PO BID potassium chloride 20 mEq PO .every other day pyridoxine (vitamin B6) 50 mg PO DAILY 90 days rosuvastatin 20 mg PO BEDTIME sennosides (Natural Senna Laxative) 8.6 mg PO BEDTIME PRN sucralfate 10 mL PO BID HPI Comments Details: Maureen is a pleasant 84-year-old female patient of Dr. Durham. She has a past medical history of transaminitis, chronic leukopenia, erosive esophagitis, nephrolithiasis, GERD, hypercholesteremia, and hypertension. She presents to the office today for follow-up of her nephrolithiasis and renal cysts. In discussion with the patient today she reports to be doing and feeling well. She denies having had any bothersome urinary issues or concerns since her last office visit here. She reports compliance with vitamin B6 as prescribed. Recent renal imaging results were reviewed. 01/25 bilateral kidneys with no hydronephrosis. Right kidney with multiple echogenic foci question of tiny stones. Left kidney with mid pole cyst measuring 1.0 cm. Left kidney with small nephrolithiasis. We discussed surveillance monitoring. All questions were answered. She otherwise offers no other issues or concerns at this time. PREVIOUS OFFICE NOTE: Nephrolithiasis Longstanding small stone on left side Left renal cyst 1 cm Responded well to lemon therapy Takes 1 glass of lemonade per day Imaging - 06/23 renal ultrasound 2 mm on left, renal cyst 1 cm - 06/24 renal ultrasound left renal cyst 1 cm, 2 mm stone bilateral - 06/25 renal ultrasound left 6 mm, right 2 mm - 06/26 renal ultrasound right 9 mm, left 0 - 12/24 KUB no stone seen 1 year follow-up [facility] Medical History Transaminitis Chronic leukopenia Erosive esophagitis Kidney stone GERD (gastroesophageal reflux disease) High cholesterol HTN (hypertension) Surgical History H/O lithotripsy H/O esophagogastroduodenoscopy (07/09/23) Social History Alcohol intake: never Patient Tobacco Use Status: Never used Tobacco Advance Directives Date on File: 09/22/23 service: No Current occupational status: retired Current occupational exposures/hazards: No Review of Systems Const All systems reviewed & are unremarkable except as noted in HPI and below Physical Exam Const General: cooperative, comfortable, no acute distress, well developed, alert and awake Orientation/consciousness: patient oriented x3 HEENT Head: Yes normal to inspection, Yes normocephalic and Yes atraumatic Ears: hearing grossly normal bilaterally Eyes General: appearance normal, both eyes and all related structures Neck Neck: Yes normal visual inspection and Yes trachea midline Chest Chest palpation & inspection: normal inspection of the chest Resp Effort & Inspection: normal respiratory effort and able to speak in complete sentences Cardio Rate: regular rate GI Inspection: Yes normal to inspection General: Yes no CVA tenderness Back/Spine/Pelvis Back: no CVA tenderness Skin General skin exam: no rashes or lesions noted Neuro General: patient oriented x3 Extrem General: Yes normal to inspection Psych Appearance: grossly normal and well kempt Mental Status: mental status grossly normal Speech and movement: Normal speech and movement present and Clear speech present Affect: normal affect Attitude: cooperative Thought process: Normal thought process present Thought content: Normal thought content present Results AMB Urinalysis, Automated UA Leukoctes 0 Kiran/uL Last Edit by JHONNY Osullivan on 01/09/25 07:54 UA Nitrite Negative Last Edit by JHONNY Osullivan on 01/09/25 07:54 UA Urobilinogen 3.5 mg/dL Last Edit by Devonte Langford [facility] on 01/09/25 07:54 UA Protein 15 mg/dL Last Edit by Devonte Langford [facility] on 01/09/25 07:54 UA pH 6.0 Last Edit by Devonte Langford [facility] on 01/09/25 07:54 UA Blood 0 Umang/uL Last Edit by Devonte Langford [facility] on 01/09/25 07:54 UA Specific [place] 1.015 Last Edit by Devonte Langford [facility] on 01/09/25 07:54 UA Ketone Negative Last Edit by Devonte Langford [facility] on 01/09/25 07:54 UA Bilirubin 0 mg/dL Last Edit by Devonte Langford [facility] on 01/09/25 07:54 UA Glucose 0 mg/dL Last Edit by Devonte Langford [facility] on 01/09/25 07:54 Results Reviewed Results Reviewed: Laboratory Last Values Urine pH (Auto) 6.0 01/09/25 07:54 Specific [place] (Auto) 1.015 01/09/25 07:54 Urine Protein (Auto) 15 mg/dL 01/09/25 07:54 Glucose (UA)(Auto) 0 mg/dL 01/09/25 07:54 Urine Ketones (Auto) Negative 01/09/25 07:54 Urine Blood (Auto) 0 Umang/uL 01/09/25 07:54 Urine Nitrite (Auto) Negative 01/09/25 07:54 Urine Bilirubin (Auto) 0 mg/dL 01/09/25 07:54 Urine Urobilinogen (Auto) 3.5 mg/dL 01/09/25 07:54 Leukocyte Esterase (Auto) 0 Kiran/uL 01/09/25 07:54 Date of Service: 01/02/25 EXAMINATION: US RETROPERITONEAL LIMITED (RENAL ONLY) FINDINGS: RIGHT KIDNEY: 11.2 x 4.2 x 4.7 cm (SAG x AP x TRV). There are multiple echogenic foci question tiny stones. Renal cortical thickness is normal. No calculi or focal parenchymal lesions. No hydronephrosis. LEFT KIDNEY: 11.6 x 4.1 x 4.8 cm (SAG x AP x TRV). The kidney is normal in size, contour, and echogenicity. Renal cortical thickness is normal. Small anechoic cyst with echogenic calculi noted in midpole the cyst measures 0.9 x 0.8 x 1.0 cm. The calcification measures 0.2 x 0.2 x 0.3 cm. There is an echogenic stone lower pole measuring 0.2 x 0.2 x 0.1 cm and 0.2 x 0.3 x 0.2 cm. No calculi or focal parenchymal lesions. No hydronephrosis. IMPRESSION: Multiple echogenic foci right kidney question tiny stones. Similar findings were seen on the previous exam 06/13/2024. Simple and complex cyst with calcification left kidney. Similar findings were seen on previous study. There is no hydronephrosis or caliectasis. Assessment & Plan Assessment & Plan (1) Nephrolithiasis: Code(s): N20.0 - Calculus of kidney Category: Medical (2) Renal cyst: Code(s): N28.1 - Cyst of kidney, acquired Category: Medical Plan In office urinalysis results reviewed with the patient today; as noted above. Recent renal imaging results reviewed with the patient today; as noted above. She currently denies any bothersome urinary issues or concerns. She reports be happy with current voiding parameters. Will continue with surveillance monitoring. Continue vitamin B6 as discussed and prescribed; refill provided. We discussed the importance of adequate hydration relation to nephrolithiasis as well as overall health and well-being. All questions were answered. Will obtain renal ultrasound in 1 year Follow-up in 1 year with imaging; or sooner with any issues, concerns, and or questions. Orders: Orders AMB Urinalysis Automated Today Z13.9 - Encounter for screening, unspecified US renal BI 1 Year N20.0 - Calculus of kidney, N28.1 - Cyst of kidney, acquired Medications: Refilled pyridoxine (vitamin B6) 50 mg PO DAILY 90 tabs 3RF 90 days N20.0 - Calculus of kidney Patient Instructions: The patient had an opportunity to ask questions regarding the treatment plan. All questions were answered. Physical exam, labs, and imaging were discussed and reviewed in detail. As well as risks, benefits, and discussion of treatment choices. No major barriers to understanding were identified. The patient expressed understanding and agreement with the above treatment plan. The patient was made aware they should contact our office by phone for worsening of their current condition, the appearance of new symptoms, or with any questions or concerns. Compliance is encouraged with any medications and follow up testing that is ordered. It is a privilege to be allowed the opportunity to participate in? your urological care.? Again, if you have any questions or concerns If you have any questions or concerns please do not hesitate to contact me. The office is [phone]. This note is constructed using voice recognition software. While every effort has been made to ensure accuracy grounds cleaner errors may have been included. Yours sincerely, HÉCTOR Mcnulty Coding Level of Care Code Est Pt Level 3 (07293) Complex EM visit Add On G2211 Diagnoses Nephrolithiasis N20.0 Renal cyst N28.1
--- OUTSIDE RECORDS SUMMARY | 2025-01-09 07:44 | XMS_ITS | Patient Health Record ---
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 Name Role Phone Alton Durham Primary Care [...] Potassium Reviewed date:01/14/2024 09:08:52 AM Interpretation: Performing Lab:[facility], [address] [place] [phone] Notes/Report: Potassium 3.6 3.3-5.1 mmol/L Slight Hemoly sis Potassium Reviewed date:02/03/2024 12:32:20 PM Interpretation: Performing Lab:[facility], [address] [place] [phone] Notes/Report: Potassium 4.2 3.3-5.1 mmol/L Slight Hemoly sis Complete Blood Count Auto Di ff Reviewed date:03/14/2024 09:33:06 AM Interpretation:see back 03-14-2024 Performing Lab:[facility], [address] [place] [phone] Notes/Report: White Blood Count 2.5 4.8-10.8 X10*3/uL [...] NRBC Abs Auto 0.000 0.0-0.012 X10*3/uL Comprehensive [place]. Panel Fa st Reviewed date:03/07/2024 04:52:00 PM Interpretation: Performing Lab:[facility], [address] [place] [phone] Notes/Report: Sodium 141 135-145 mmol/L Potassium 3.9 3.3-5.1 mmol/L Slight Hemolysis.Interpret result with caution. Chloride 104 96-108 mmol/L Carbon Dioxide 27 22-29 mmol/L Anion Gap 14 12-20 Blood Urea Nitrogen 23 9-16 mg/dL Creatinine 0.64 0.5-1.4 mg/dL Estimated Glomerular Filt Rate > 60 NOTE: For -Grenadian individuals, multiply the result by 1.210. Chronic [...] Panel Reviewed date:03/07/2024 04:52:17 PM Interpretation: Performing Lab:[facility], [address] [place] [phone] Notes/Report: Triglycerides 63 <150 mg/dL Desirable Triglyceride: [...] t Reviewed date:03/07/2024 04:51:31 PM Interpretation: Performing Lab:[facility], [address] [place] [phone] Notes/Report: Urine, Clean Catch Color Urine Yellow Appearance Urine Clear PH 6.5 5.0-9.0 Glucose Urine UA Negative Negative mg/dL Urine Blood Negative Negative Specific [place] - Urine 1.020 1.005-1.025 Urine Protein 30 [...] ff Reviewed date:04/04/2024 12:44:09 PM Interpretation: Performing Lab:[facility], [address] [place] [phone] Notes/Report: White Blood Count 2.7 4.8-10.8 X10*3/uL [...] Potassium Reviewed date:04/04/2024 12:47:19 PM Interpretation: Performing Lab:[facility], [address] [place] [phone] Notes/Report: Potassium 3.9 3.3-5.1 mmol/L Complete Blood Count Auto Di ff Reviewed date:05/09/2024 12:31:03 PM Interpretation: Performing Lab:[facility], [address] [place] [phone] Notes/Report: White Blood Count 2.8 4.8-10.8 X10*3/uL [...] Potassium Reviewed date:05/09/2024 12:25:38 PM Interpretation: Performing Lab:[facility], [address] [place] [phone] Notes/Report: Potassium 3.9 3.3-5.1 mmol/L Liver Panel Reviewed date:08/31/2024 05:02:52 PM Interpretation: Performing Lab:[facility], [address] [place] [phone] Notes/Report: Bilirubin Total 0.7 0.0-1.0 mg/dL Bilirubin Direct 0.3 0.0-0.5 mg/dL Aspartate Amino Transferase 34 5-31 U/L Alanine Aminotransferase 27 0-31 U/L Total Protein 6.4 6.5-8.0 g/dL Albumin Level 4.0 3.5-5.0 g/dL Alkaline Phosphatase 89 39-117 U/L Potassium Reviewed date:08/31/2024 05:00:46 PM Interpretation: Performing Lab:[facility], [address] [place] [phone] Notes/Report: Potassium 3.8 3.3-5.1 mmol/L Lipid Panel with Reflex Reviewed date:08/31/2024 05:02:44 PM Interpretation: Performing Lab:[address] [address] Notes/Report: Triglycerides 32 <150 mg/dL Desirable Triglyceride: [...] date:04/17/2024 12:23:13 PM Interpretation: Performing Lab: Notes/Report: [address] [address] XRay Report Signed Patient: Maureen Foreman MR#: [id number] : 1940 Acct:[id number] Age/Sex: 83 / F ADM Date: 03/29/24 Loc: CONCHA Attending Dr: Julee ANAYA Ordering Physician: Julee Asher Date of Service: 03/29/24 Procedure(s): XR soft tissue neck Accession Number(s): [id number] cc: Alton Durham MD; Julee Asher EXAMINATION: XR SOFT TISSUE NECK CLINICAL INDICATION: K22.2 - Esophageal obstruction COMPARISON: CT soft tissue neck 06/19/2023. Ultrasound of the thyroid 07/13/2023. TECHNIQUE: 2 views of the soft tissue neck were obtained. Exam submitted for review 04/17/2024 8:16 AM STUDENT SERVICES DIRECTOR. FINDINGS: Soft tissue films of the neck [...] OV> 04/17/24918 DD/ 150 TD/TT: 03/29/24 1510 Spreader Box Operator: [place] [address] XRay Report Signed Patient: Maureen Foreman MR#: [id number] : 1940 Acct:[id number] Age/Sex: 83 / F ADM Date: 03/29/24 Loc: HO.XRAY Attending Dr: Julee Asher [employer] Ordering Physician: Julee Asher-DG Date of Service: 03/29/24 Procedure(s): XR sof t tissue neck Accession Number(s): [id number] cc: Alton Durham MD; Julee Asher [employer] EXAMINATION: XR SOFT TISSUE NECK CLINICAL INDICATION: K22.2 - Esophageal obstruction COMPARISON: CT soft tissue neck 06/19/2023. Ultrasound of the th yroid 07/13/2023. TECHNIQUE: 2 views of the soft tissue neck were obtained. Exam submitted for r eladiow 04/17/2024 8:16 AM STUDENT SERVICES DIRECTOR. FINDINGS: Soft tissue films of the neck [...] OV> 04/17/24918 DD/ 1502 TD/TT: 03/29/24 1510 Spreader Box Operator: MM tomosynthesis screening B I Reviewed date:05/05/2024 04:58:08 PM Interpretation: Performing Lab: Notes/Report: [address] [place] [address] Mammography Report Signed Patient: Maureen Foreman MR#: [id number] : 1940 Acct:[id number] Age/Sex: 83 / F ADM Date: 04/24/24 Loc: HO.MAMMO Attending Dr: Alton Durham MD Ordering Physician: Alton Durham MD Results: 1Ne gative Date of Service: 04/24/24 Follow Up: 1 Year From Orig ina Mammogram Procedure(s): MM tomosynthesis screening BI Accession Number(s): [id number] cc: Alton Durham MD EXAMINATION: MM SCREENING [...] 05/05/24 1628 DD/ 0800 TD/TT: 04/24/24 0821 Spreader Box Operator: [address] [place] [address] Mammography Report Signed Patient: Maureen Foreman MR#: [id number] : 1940 Acct:[id number] Age/Sex: 83 / F ADM Date: 04/24/24 Loc: HO.MAMMO Attending Dr: Alton Durham MD Ordering Physician: Alton Durham MD Results: 1Ne gative Date of Service: Follow Up: 1 Year From Orig inal Mammogram Procedure(s): MM tomosynthesis screening BI Accession Number(s): [id number] cc: Alton Durham MD EXAMINATION: MM SCREENING [...] 05/05/24 1628 DD/ 0800 TD/TT: 04/24/24 0821 Spreader Box Operator: Liver Panel Reviewed date:05/15/2024 02:16:26 PM Interpretation: Performing Lab:[facility], [address] [place] [phone] Notes/Report: Bilirubin Total 0.4 0.0-1.0 mg/dL Bilirubin Direct 0.1 0.0-0.5 mg/dL Aspartate Amino Transferase 32 5-31 U/L Alanine Aminotransferase 32 0-31 U/L Total Protein 6.8 6.5-8.0 g/dL Albumin Level 4.2 3.5-5.0 g/dL Alkaline Phosphatase 99 39-117 U/L CT cervical spine wo con Reviewed date:05/18/2024 01:47:30 PM Interpretation: Performing Lab: Notes/Report: [address] [address] [address] Scan Report Signed Patient: Maureen Foreman MR#: [id number] : 1940 Acct:[id number] Age/Sex: 83 / F ADM Date: 05/16/24 Loc: HO.ED Attending Dr: Ordering Physician: Segundo Montague Date of Service: 05/16/24 Procedure(s): CT cervical spine wo IV con Accession Number(s): [id number] cc: Segundo Montague; Alton Durham MD Report Number: [id number]: Total DLP = 214.00 mGy-cm EXAMINATION: CT [...] 05/16/24 1238 DD/ 1142 TD/TT: 05/16/24 1218 Spreader Box Operator: [place] [address] [address] Scan Report Signed Patient: Maureen Foreman MR#: [id number] : 1940 Acct:[id number] Age/Sex: 83 / F ADM Date: 05/16/24 Loc: HO.ED Attending Dr: Ordering Physician: Segundo Montague Date of Service: 05/16/24 Procedure(s): CT cer vical spine wo IV con Accession Number(s): [id number] cc: Segundo Montague; Alton Durham MD Report [...] Wilberto Cardoso MD 05/16/2024 12:38 PM [facility] Dictated By: Wilberto Kerr MD Signed By: <Electronically signed by Wilberto Martel MD in OV> 05/16/24 1238 DD/ 1142 TD/TT: 05/16/24 1218 Spreader Box Operator: CT head/brain wo con Reviewed date:05/16/2024 04:41:18 PM Interpretation: Performing Lab: Notes/Report: [address] [address] [address] Scan Report Signed Patient: Maureen Foreman MR#: [id number] : 1940 Acct:[id number] Age/Sex: 83 / F ADM Date: 05/16/24 Loc: HO.ED Attending Dr: Ordering Physician: Generic ED Physician Date of Service: 05/16/24 Procedure(s): CT head/brain wo IV con Accession Number(s): [id number] cc: Alton Durham MD; Generic ED Physician Report Number: [id number]: Total DLP = 625.00 mGy-cm EXAMINATION: CT [...] Roberto Huffman MD 05/16/2024 12:52 PM [facility] Dictated By: Roberto Huffman MD Signed By: <Electronically signed by Roberto Huffman MD in OV> 05/16/24 1252 DD/ 1153 TD/TT: 05/16/24 1218 Spreader Box Operator: [place] [address] CT Scan Report Signed Patient: Maureen Foreman MR#: [id number] : 1940 Acct:[id number] Age/Sex: 83 / F ADM Date: 05/16/24 Loc: HO.ED Attending Dr: Ordering Physician: Generic ED Physician Date of Service: 05/16/24 Procedure(s): CT head/brain wo IV con Accession Number(s): [id number] cc: Alton Durham MD; [facility] ED Physician Report Number: [id number]: Total [...] Roberto Huffman MD 05/16/2024 12:52 PM [facility] Dictated By: Roberto Huffman MD Signed By: <Electronically signed by Roberto Huffman MD in OV> 05/16/24 1252 DD/ 1153 TD/TT: 05/16/24 1218 Spreader Box Operator: CT facial bones wo con Reviewed date:05/16/2024 04:42:06 PM Interpretation: Performing Lab: Notes/Report: [address] [address] [address] Scan Report Signed Patient: Maureen Foreman MR#: [id number] : 1940 Acct:[id number] Age/Sex: 83 / F ADM Date: 05/16/24 Loc: HO.ED Attending Dr: Ordering Physician: Segundo Montague Date of Service: 05/16/24 Procedure(s): CT facial bones wo IV con Accession Number(s): [id number] cc: Segundo Montague; Alton Druham MD Report Number: [id number]: Total DLP = 215.00 mGy-cm EXAMINATION: CT [...] Roberto Huffman MD 05/16/2024 12:52 PM [facility] Dictated By: Roberto Huffman MD Signed By: <Electronically signed by Roberto Huffman MD in OV> 05/16/24 1252 DD/ 1153 TD/TT: 05/16/24 1218 Spreader Box Operator: [place] [address] CT Scan Report Signed Patient: Maureen Foreman MR#: [id number] : 1940 Acct:[id number] Age/Sex: 83 / F ADM Date: 05/16/24 Loc: HO.ED Attending Dr: Ordering Physician: Segundo Montague Date of Service: 05/16/24 Procedure(s): CT fac ial bones wo IV con Accession Number(s): [id number] cc: Segundo Montague; Alton Durham MD Report [...] Roberto Huffman MD 05/16/2024 12:52 PM [facility] Dictated By: Robetro Huffman MD Signed By: <Electronically signed by Roberto Huffman MD in OV> 05/16/24 1252 DD/ 1153 TD/TT: 05/16/24 1218 Spreader Box Operator: Complete Blood Count Man Dif Reviewed date:06/02/2024 12:39:21 PM Interpretation: Performing Lab:[address] [address] Notes/Report: White Blood Count 3.4 4.8-10.8 X10*3/uL [...] te Reviewed date:06/02/2024 12:22:30 PM Interpretation: Performing Lab:[address] [address] Notes/Report: Erythrocyte Sedimentation Rate 2 0-20 MM/HR Patients with polycythemia and many hemoglobin abnormalities may have depressed sed rates whereas patients with anemia may have elevated sed rates. Comprehensive Met. Panel Reviewed date:06/02/2024 12:23:01 PM Interpretation: Performing Lab:[address], [place] [address] Notes/Report: Sodium 142 135-145 mmol/L Potassium 4.4 [...] Dehydrogenase Reviewed date:06/02/2024 12:22:09 PM Interpretation: Performing Lab:[facility], [address] [place] [phone] Notes/Report: Lactate Dehydrogenase 255 122-220 U/L Vitamin B12 and Folate Reviewed date:06/02/2024 04:20:13 PM Interpretation: Performing Lab:[facility], [address] [place] [phone] Notes/Report: Vitamin B12 488 200-900 pg/mL NORMAL 200-900 PG/ML INDETERMINATE 160-199 PG/ML DEFICIENT < 160 PG/ML Folate 13.8 > or = 4.0 ng/mL Reference Values: > or = 4.0 ng/mL < 4.0 ng/mL suggests folate deficiency Methotrexate, aminopterin and folinic acid (leucovorin) are chemotherapeutic agents whose molecular structures are similar to folate; therefore, the [employer] folate assay cannot be used for patients using these drugs. Immunofixation Pnl, Serum Reviewed date:06/07/2024 08:09:13 PM Interpretation: Performing Lab:[address] [address] Notes/Report: IgG 699 286-3472 mg/dL IgA 85 70-320 mg/dL IgM 41 50-300 mg/dL THIS TEST WAS PERFORMED AT: [facility] [address] [place] [address] ADALID FOURNIER MD Immunofixation Interpretation SEE NOTE Normal pattern. No monoclonal proteins detected. THEO Reflex Titer and Pattern Reviewed date:06/07/2024 08:08:55 PM Interpretation: Performing Lab:[address] [address] Notes/Report: Anti Nuclear Antibody Screen NEGATIVE NEGATIVE [...] Negative International Consensus on THEO Patterns (https://doi.org/10.1 515/mjgi-4158-1657) For additional information, please refer to http://education.[employer]faq/ XMI824 (This link is being provided for informational/ educational purposes only.) THIS TEST WAS PERFORMED AT: [facility] [address] [place] [phone] ADALID FOURNIER MD Anti Nuclear Antibody Titer TNP Anti Nuclear Antibody Pattern TNP THEO Titer 2 TNP THEO Pattern 2 TNP THEO Titer 3 TNP THEO Pattern 3 TNP Rheumatoid Factor Reviewed date:06/02/2024 04:14:35 PM Interpretation: Performing Lab:[address] [address] Notes/Report: Rheumatoid Factor < 13.0 <15.0 IU/mL Hepatitis B,C Profile Reviewed date:06/02/2024 04:14:21 PM Interpretation: Performing Lab:[facility], [address] [place] [phone] Notes/Report: Hepatitis B Surface Antibody NONREACTIVE Nonreactive Nonreactive: < 8.00 mIU/mL Hepatitis B Core Antibody Nonreactive Nonreactive Hepatitis C Antibody Nonreactive Nonreactive Antibodies to HCV not detected; does not exclude early acute HCV infection. Hepatitis B Surface Antigen Negative Negative HIV Ab/Ag Reviewed date:06/02/2024 04:14:43 PM Interpretation: Performing Lab:[facility], [address] [place] [phone] Notes/Report: HIV AB/AG Nonreactive Nonreactive HIV-1 p24 [...] limit of detection of this assay. The [employer] HIV Ag/Ab Combo assay result and supplemental assay results should be interpreted in conjunction with the patient's clinical presentation, history and other laboratory results. If the results are inconsistent with clinical evidence, additional testing is suggested to confirm the result. US carotid duplex BI Reviewed date:06/09/2024 12:41:10 PM Interpretation: Performing Lab: Notes/Report: [address] [address] Ultrasound Report Signed Patient: Maureen Foreman MR#: [id number] : 1940 Acct:[id number] Age/Sex: 84 / F ADM Date: 06/09/24 Loc: . Attending Dr: Alton Durham MD Ordering Physician: Alton Durham MD Date of Service: 06/09/24 Procedure(s): US carotid duplex BI Accession Number(s): [id number] cc: Alton Durham MD EXAMINATION: US EXTRACRANIAL [...] Wilberto Cardoso MD 06/09/2024 12:19 PM [facility] Dictated By: Wilberto Sanches MD Signed By: <Electronically signed by Wilberto Martel MD in OV> 06/09/24 1219 DD/ 1127 TD/TT: 06/09/24 1150 Spreader Box Operator: [address] [address] Ultrasound Report Signed Patient: Maureen Foreman MR#: [id number] : 1940 Acct:[id number] Age/Sex: 84 / F ADM Date: 06/09/24 Loc: HO.US Attending Dr: Alton Durham MD Ordering Physician: Alton Durham MD Date of Service: 06/09/24 Procedure(s): US car otid duplex BI Accession Number(s): [id number] cc: Alton Durham MD EXAMINATION: US EXTRACRANIAL [...] 06/09/24 1219 DD/ 1127 TD/TT: 06/09/24 1150 Spreader Box Operator: US abdomen complete Reviewed date:06/13/2024 12:36:35 PM Interpretation: Performing Lab: Notes/Report: [address] [address] Ultrasound Report Signed Patient: Maureen Foreman MR#: [id number] : 1940 Acct:[id number] Age/Sex: 84 / F ADM Date: 06/13/24 Loc: HO.US Attending Dr: Julee ARELLANOP- Ordering Physician: Julee Asher Date of Service: 06/13/24 Procedure(s): US abdomen complete Accession Number(s): [id number] cc: Alton Durham MD; uJlee Asher [facility] CLINICAL HISTORY: R74.01 - Elevation of [...] 06/13/24 1026 DD/ 1025 TD/TT: 06/13/24 1025 Spreader Box Operator: [place] [address] Ultrasound Report Signed Patient: Maureen Foreman MR#: [id number] : 1940 Acct:[id number] Age/Sex: 84 / F ADM Date: 06/13/24 Loc: HO.US Attending Dr: Julee LINTON-DG Ordering Physician: Julee Asher Date of Service: 06/13/24 Procedure(s): US abd omen complete Accession Number(s): [id number] cc: Alton Durham MD; Julee Asher [employer] CLINICAL HISTORY: R7 4.01 - Elevation of [...] 06/13/24 1026 DD/ 1025 TD/TT: 06/13/24 1025 Spreader Box Operator: IRON PROFILE Reviewed date:07/03/2024 12:28:58 PM Interpretation: Performing Lab:[facility], [address] [place] [phone] Notes/Report: Iron 123 30-160 mcg/dL Total Iron Binding Capacity 338 228-428 mcg/dL Percent Iron Saturation 36 15-50 % Unsaturated Iron Binding 215 Ferritin Reviewed date:07/03/2024 12:22:12 PM Interpretation: Performing Lab:[facility], [address] [place] [phone] Notes/Report: Ferritin 32 10-250 ng/mL C Reactive Protein Reviewed date:07/03/2024 12:21:54 PM Interpretation: Performing Lab:[facility], [address] [place] [phone] Notes/Report: C Reactive Protein < 0.10 < or = 0.50 mg/dL Ceruloplasmin Reviewed date:07/13/2024 12:40:30 PM Interpretation: Performing Lab:[facility], [address] [place] [phone] Notes/Report: Ceruloplasmin 26 14-48 mg/dL THIS TEST WAS PERFORMED AT: [facility] [address] [place] [phone] ADALID FOURNIER MD Alpha Fetoprotein Reviewed date:07/13/2024 04:14:53 PM Interpretation: Performing Lab:[facility], [address] [place] [phone] Notes/Report: Alpha Fetoprotein 5.3 Reference Range: <6.1 The use of AFP as a tumor marker in females is not recommended. This test was performed using the Mat [employer]ol[employer] chemiluminescent method. Values obtained from different assay methods cannot be used interchangeably. AFP levels, regardless of value, should not be interpreted as absolute evidence of the presence or absence of disease. THIS TEST WAS PERFORMED AT: [facility] [address] [address] ADALID FOURNIER MD Liver Fibrosis Pnl Reviewed date:07/13/2024 12:40:22 PM Interpretation: Performing Lab:[facility], [address] [place] [phone] Notes/Report: Liver Fibrosis Score 0.25 Liver Fibrosis [...] a>0.62 and a<=1.00 : A3 (severe activity) SQK-Ksjef-7-Macroglobul in 198 106-279 mg/dL FIB-Haptoglobin 77 43-212 mg/dL FIB-Apolipoprotein A1 223 101-198 mg/dL FIB-Total Bilirubin 0.6 0.2-1.2 mg/dL FIB-GGT 27 3-65 U/L FIB-ALT 18 6-29 U/L Reference ID [id number] Footnote SEE NOTE The reliability of results [...] The performance characteristics have been determined by [facility]. It has not been cleared or approved by the U.S. Food and Drug Administration. Performance characteristics refer to the analytical performance of the test. [employer], [employer], the associated logo, [employer] and all associated [employer] patel are the registered trademarks of [employer]. All third libertarian patel - (R) and (TM) - are the property of their respective owners. (C) 6414-1307 [employer]. All rights reserved. THIS TEST WAS PERFORMED AT: [facility] [address] [place] [address] DELMER PRIETO MD,PHD,LOPEZ Mitochondrial Antibody Reviewed date:07/12/2024 07:07:20 PM Interpretation: Performing Lab:[facility], [address] [place] [phone] Notes/Report: Mitochondrial Antibodies NEGATIVE NEGATIVE The specimen was negative for cytoplasmic antibodies, however additional staining was observed suggesting the presence of Antinuclear Antibodies. Consider requesting order code 249, THEO Screen, IFA with Reflex to Titer and Pattern, or order code 90096, THEO Screen, IFA w/reflex Titer/Pattern, and Reflex to Multiplex 11 Ab [place], if clinically indicated. THIS TEST WAS PERFORMED AT: [facility] [address] [place] [address] ADALID FOURNIER MD Mitochondrial Ab Titer TNP Smooth Muscle Antibody Reviewed date:07/12/2024 07:07:11 PM Interpretation: Performing Lab:[address] [address] Notes/Report: Smooth Muscle Antibody <20 <20 U [...] type 1. THIS TEST WAS PERFORMED AT: [facility]/[address] [address] YANET KAMINSKI MD,PHD Complete Blood Count Auto Di ff Reviewed date:08/03/2024 12:56:05 PM Interpretation: Performing Lab:[facility], [address] [place] [phone] Notes/Report: White Blood Count 2.4 4.8-10.8 X10*3/uL [...] Panel Reviewed date:08/03/2024 04:21:18 PM Interpretation: Performing Lab:[facility], [address] [place] [phone] Notes/Report: Sodium 142 135-145 mmol/L Potassium 3.9 [...] Gold Reviewed date:08/03/2024 10:57:15 AM Interpretation: Performing Lab:[facility], [address] [place] [phone] Notes/Report: Hold Gold See Note Specimen held untested for 24 hours; Call to request Chemistry testing. SLIDE REVIEW Reviewed date:08/03/2024 10:54:08 AM Interpretation: Performing Lab:[facility], [address] [place] [phone] Notes/Report: SLIDE REVIEW VERIFIED US thyroid Reviewed date:08/11/2024 09:47:47 AM Interpretation: Performing Lab: Notes/Report: [address] [address] Ultrasound Report Signed Patient: Maureen Foreman MR#: [id number] : 1940 Acct:[id number] Age/Sex: 84 / F ADM Date: 08/10/24 Loc: HO.US Attending Dr: Alton Durham MD Ordering Physician: Alton Durham MD Date of Service: 08/10/24 Procedure(s): US thyroid Accession Number(s): [id number] cc: Alton Durham MD EXAMINATION: US THYROID [...] OV> 08/10/2420 DD/ 0746 TD/TT: 08/10/24 0810 Spreader Box Operator: [address] [address] Ultrasound Report Signed Patient: Maureen Foreman MR#: [id number] : 1940 Acct:[id number] Age/Sex: 84 / F ADM Date: 08/10/24 Loc: HO.US Attending Dr: Alton Durham MD Ordering Physician: Alton Durham MD Date of Service: 08/10/24 Procedure(s): US thyroid Accession Number(s): [id number] cc: Alton Durham MD EXAMINATION: US THYROID [...] 08/10/24 0920 DD/ 0746 TD/TT: 08/10/24 0810 Spreader Box Operator: Nely Sierra date:08/31/2024 05:00:30 PM Interpretation: Performing Lab:[facility], [address] [place] [phone] Notes/Report: Nely Dubose See Note Specimen held untested for 24 hours; Call to request Chemistry testing. Complete Blood Count Auto Di ff Reviewed date:11/03/2024 03:35:42 PM Interpretation: Performing Lab:[facility], [address] [place] [phone] Notes/Report: White Blood Count 2.7 4.8-10.8 X10*3/uL [...] Panel Reviewed date:11/03/2024 03:36:22 PM Interpretation: Performing Lab:[facility], [address] [place] [phone] Notes/Report: Sodium 141 135-145 mmol/L Potassium 3.7 [...] Dehydrogenase Reviewed date:11/02/2024 08:36:04 PM Interpretation: Performing Lab:[facility], [address] [place] [phone] Notes/Report: Lactate Dehydrogenase 230 122-220 U/L Hold Gold Reviewed date:11/02/2024 08:26:21 PM Interpretation: Performing Lab:[facility], [address] [place] [phone] Notes/Report: Hold Gold See Note Specimen held untested for 24 hours; Call to request Chemistry testing. Pathology Reviewed date:11/13/2024 01:02:31 PM Interpretation: Performing Lab:[facility], [address] [place] [phone] Notes/Report: ----- Name: Delmy Foreman Age/Sex: 84/F : 1940 Unit#: [id number] Attend Dr: Renay Hudson MD Re11/09/24 Status : [facility] Location: [facility] Disch: ----- SPEC : [id number] RECD : 11/09/24-0 STATUS: DEREK LIMA NUM: [id number] ASHLI: 11/09/24-[address] [facility] [address]: Renay Hudson MD ENTERED: 11/09/24-11 54 [...] AhsanDelmy jamaal Mcintyre Age/Sex: 84/F [facility] 1940 [id number] [id number] Attend Dr: Renay Hudson MD Re11/09/24 Status : [facility] Location: [facility] Disch: ----- SPEC : [id number] RECD : 11/09/24-115 STATUS: DEREK LIMA NUM: [id number] ASHLI: 11/09/24-[address] [facility] [address]: Renay Hudson MD ENTERED: 11/09/24-11 54 [...] microscopic examination, 1 piece in cassette D. ([facility]) Special studies orde red and performed: Immunostain for H. pylori on B and C; AB/PAS stains on A, B and C IHC S/NG Disclaimer NOTE: Unless otherwi se stated, all tissue is formalin-fixed and paraffin-embedded. Some or all of the immunohistochemical tests reported herein may have been developed and their performance characteristics determined by [facility]. They have not been cleared or appr baltazar by the U.S. Food and Drug Administration (FDA). However, the FDA has determined that such clearance or approval is not necessary. This laboratory is certified under the Clinical Laboratory Improvement Amendments of 1988 (CLIA) as qualified to perform high complexity clinical laboratory testing. Copies To: Alton Durham MD [facility] [address] [place] [id number] Renay Hudson MD [facility] [address] [place] [address] ----- Signed (signature on file) Camden Shine MD 11/13/24 0958 ----- END OF REPORT Disaccharidases Reviewed date:11/15/2024 03:49:36 PM Interpretation: Performing Lab:[facility], [address] [place] [id number] Notes/Report: Comment Duodenum BX Lactase 32.0 15.0-45.5 [...] analytical performance characteristics have been determined by [facility]. It has not been cleared or approved by the FDA. This assay has been validated pursuant to the CLIA regulations and is used for clinical purposes. THIS TEST WAS PERFORMED AT: [facility] [address] [place] [address] DELMER PRIETO MD,PHD,LOPEZ US renal BI Reviewed date:01/02/2025 10:21:07 AM Interpretation: Performing Lab: Notes/Report: [address] [place] [address] Ultrasound Report Signed Patient: Maureen Foreman MR#: [id number] : 1940 Acct:[id number] Age/Sex: 84 / F ADM Date: 01/02/25 Loc: HO.US Attending Dr: Som Mckeon MD Ordering Physician: Som Mckeon MD Date of Service: 01/02/25 Procedure(s): US renal BI Accession Number(s): [id number] cc: Som Mckeon MD; Alton Durham MD Reason for Exam: N20.0 - Calculus of kidney EXAMINATION: US RETROPERITONEAL LIMITED (RENAL ONLY) CLINICAL INFORMATION: Calculus of kidney. COMPARISON: A sonogram of the abdomen 06/13/2024 TECHNIQUE: Routine grayscale imaging of kidneys is performed. FINDINGS: RIGHT KIDNEY: 11.2 x 4.2 x 4.7 cm (SAG x AP x TRV). There are multiple echogenic foci question tiny stones. Renal cortical thickness is normal. No calculi or focal parenchymal lesions. No hydronephrosis. LEFT KIDNEY: 11.6 x 4.1 x 4.8 cm (SAG x AP x TRV). The kidney is normal in size, contour, and echogenicity. Renal cortical thickness is normal. Small anechoic cyst with echogenic calculi noted in midpole the cyst measures 0.9 x 0.8 x 1.0 cm. The calcification measures 0.2 x 0.2 x 0.3 cm. There is an echogenic stone lower pole measuring 0.2 x 0.2 x 0.1 cm and 0.2 x 0.3 x 0.2 cm. No calculi or focal parenchymal lesions. No hydronephrosis. US/US renal BI IMPRESSION: Multiple echogenic foci right kidney question tiny stones. Similar findings were seen on the previous exam 06/13/2024. Simple and complex cyst with calcification left kidney. Similar findings were seen on previous study. There is no hydronephrosis or caliectasis. Electronically signed by: Rex Marie MD 01/02/2025 10:10 AM EDT Dictated By: Rex Marie MD Signed By: <Electronically signed by Rex Marie MD in OV> 01/02/25 1010 DD/ 0818 TD/TT: 01/02/25 0832 Spreader Box Operator: [address] [address] Ultrasound Report Signed Patient: Maureen Foreman MR#: [id number] : 1940 Acct:[id number] Age/Sex: 84 / F ADM Date: 01/02/25 Loc: HO.US Attending Dr: Aneudy Fernández MD Ordering Physician: Som Mckeon MD Date of Service: 01/02/25 Procedure(s): US renal BI Accession Number(s): [id number] cc: Som Mckeon MD; Alton Durham MD Reason for Exam: N20 .0 - Calculus of kidney EXAMINATION: US RETROPERITONEAL LIMITED (RENAL ONLY) CLINICAL INFORMATION: Calculus of kidney. COM[facility] TECHNIQUE: Routine grayscale im aging of kidneys is performed. FINDINGS: RIGHT KIDNEY: 11.2 x 4.2 x 4.7 cm (SAG x AP x TRV). There are multiple echogenic foci quest ion tiny stones. Renal cortical thickness is normal. No calculi o r focal parenchymal lesions. No hydronephrosis. LEFT KIDNEY: 11.6 x 4.1 x 4.8 cm (SAG x AP x TRV). The kidney is normal in size, contour, an d echogenicity. Renal cortical thickness is normal. Small anechoic cyst with echogenic calculi noted in midpole the cyst measures 0.9 x 0.8 x 1.0 cm. The calcification measures 0.2 x 0.2 x 0.3 cm. There is an echo genic stone lower pole measuring 0.2 x 0.2 x 0.1 cm and 0.2 x 0.3 x 0.2 cm. No calculi or focal parenchymal lesions. No hydronephrosis. U S/US renal BI IMPRESSION: Multiple echogenic f oci right kidney question tiny stones. Similar findings were seen o n the previous exam 06/13/2024. Simple and complex c yst with calcification left kidney. Similar findings were seen o n previous study. There is no hydronephrosis or caliectasis. Electronically tammie d by: Rex Marie MD 01/02/2025 10:10 AM EDT Dictated By: Mr manoj Marie MD Signed By: <Electronically signed by Rex Marie MD in OV> 01/02/25 1010 DD/ 0818 TD/TT: 01/02/25 0832 Spreader Box Operator: TESSA Reason For Referral No Information Medications Medication [...] Administered Flu Vaccine IM Intramuscular 01/26/2012 Administered [facility] [facility] Flu Vaccine Unknown 02/11/2012 Administered Flu Vaccine IM Intramuscular 02/22/2013 Administered [employer] [facility] Tetanus Unknown 01/29/2006 Administered Prevnar 13 IM Intramuscular 04/10/2013 Administered zzz Unknown 04/10/2013 Administered Flu Vaccine Unknown 02/14/2014 Administered [employer] TDaP Unknown 03/21/2014 Administered [facility] Fluarix Quadrivalent IM Intramuscular 02/26/2015 Administered [employer] Flu Vaccine Unknown 02/15/2016 Administered [facility] Fluarix Quadrivalent Unknown 02/17/2017 Administered [employer] Flu Vaccine IM Intramuscular 01/21/2018 Administered pt wa s given the vaccine at [facility] in [place] on [address] 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) Active confirmed Problem Disorder of lumbar disc (629470523) Lumbar disc disease (M51.9) Active confirmed Problem 19911791 Essential hypertension (I10) Active confirmed Problem 347213835 Lung nodule (R91.1) Active confirmed Problem 570302657 Esophageal dysmotility (K22.4) Active confirmed Problem 923038662 History of kidne y stones (Z87.442) Active confirmed Problem 646140593 Cervical disc disease (M50.90) Active confirmed Problem 30918794 Sciatica of left side (M54.32) Active confirmed Problem 647010991 Neutropenia, unspecified type (D70.9) Active confirmed Problem 07127896 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) Active confirmed Problem 27610754 Sciatica of righ t side (M54.31) Active confirmed Problem 49866921 Elevated cholesterol (E78.00) Active confirmed Problem 290352027 Esophageal spasm (K22.4) Active confirmed Problem 69719935106017 Adnexal cyst (N94.9) Active confirmed Problem 220761591 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) Active confirmed Problem 64377488 Achalasia (K22.0) Active confirmed Problem 29025811 Paresthesia (R20.2) Active confirmed Problem 732924935063930 Atherosclerosis of both carotid arteries (I65.23) Active confirmed Problem 683771001 Abnormal mammogr am of both breasts (R92.8) Active confirmed Problem 159326525 Esophageal dysfunction (K22.4) Active confirmed Problem 053597889 Tingling of righ t upper extremity (R20.2) Active confirmed Problem 306215061 Gastroesophageal reflux disease with esophagitis without hemorrhage (K21.00) Active confirmed Problem 951586857 Porokeratosis (Q82.8) Active confirmed Problem 138359366 Hepatic granulom a (K75.3) Active confirmed Problem 954012692 Mild carotid art silva disease (I77.9) Active [...] Durham MD [address] [place] [address] [id number] 01/13/2024 Alton Durham Hypokalemia E87.6 Alton Durham MD [address] [place] [address] [id number] 02/03/2024 Alton Durham Hx of hypokalemia Z86.39 Alton Durham MD [address] [place] [address] [id number] 03/07/2024 Alton Durham Blood tests for rout ine general physical examination Z00.00 ; Neutropenia D70.9 ; Elevated cholesterol E78.00 and Essential hypertension I10 Alton Durham MD [address] [place] [address] [id number] 04/04/2024 Alton Durham Neutropenia D70.9 Alton Durham MD [address] [place] [address] [id number] 05/09/2024 Alton Durham Gastroesophageal ref lux disease with esophagitis without hemorrhage K21.00 Alton Durham MD [address] [place] [address] [id number] 05/19/2024 Alton Durham Status post fall Z91 .81 ; Mild carotid artery disease I77.9 and Hypokalemia E87.6 Alton Durham MD [address] [place] [address] [id number] 08/31/2024 Alton Durham Elevated cholesterol E78.00 ; AA (alcohol abuse) 305.00 and Hypokalemia E87.6 Alton Durham MD [address] [place] [address] [id number] 03/14/2024 Alton Durham Neutropenia D70.9 ; Elevated cholesterol E78.00 ; Thyroid nodule E04.1 ; Esophageal dysfunction K22.4 ; Hypokalemia E87.6 ; Essential hypertension I10 ; Colon cancer screening Z12.11 and Depression screening Z13.31 Alton Durham MD [address] [place] [address] [id number] 04/14/2024 Alton Durham Neutropenia D70.9 an d Gastroesophageal reflux disease with esophagitis without hemorrhage K21.00 Alton Durham MD [address] [place] [address] [id number] 07/11/2024 Alton Durham Elevated LFTs R79.89 ; Elevated cholesterol E78.00 and Atherosclerosis of both carotid arteries I65.23 Alton Durham MD [address] [place] [address] [id number] 09/05/2024 Alton Durham Neutropenia D70.9 ; Esophageal dysmotility K22.4 ; Elevated cholesterol E78.00 ; Mild carotid artery disease I77.9 and Nontoxic single thyroid nodule E04.1 Alton Durham MD [address] [place] [address] [id number] 01/25/2024 Alton Durham MD [address] [place] [address] [id number] 05/18/2024 Alton Durham Bilateral carotid artery disease I77.9 Alton Durham MD [address] [place] [address] [id number] 05/22/2024 Alton Durham MD [address] [place] [address] [id number] 06/09/2024 Alton Durham MD [address] [place] [address] [id number] 06/27/2024 Atlon Durham MD [address] [place] [address] [id number] 07/13/2024 Alton Durham MD [address] [place] [address] [id number] 08/08/2024 Alton Durham Atherosclerosis of b oth carotid arteries I65.23 Alton Durham MD [address] [place] [address] [id number] 08/11/2024 Alton Durham Thyroid nodule E04.1 Alton Durham MD [address] [place] [address] [id number] 01/04/2025 Alton Durham Calculus of kidney N20.0 [...] (ICD-10 - R79.89) contact Carmen at [facility] to discuss/ is [...] into the future order folder for . 01/04/2025 Calculus of kidney (ICD-10 - N20.0) 03/07/2024 Elevated cholesterol (ICD-10 - E78.00) 05/19/2024 [...] 09/11/2024 Next Appt Details Provider Name:Alton wick, 03/09/2025 07:45:00 AM, [address], [address], [place], [place], [id number], Provider Name:Alton Joiner ier, 03/16/2025 08:00:00 AM, [address], [address], [place], [id number], Insurance Providers Payer Name Payer Address Payer Phone Subscriber Number Group Number Insured Name Patient Relationship to Insured Coverage Start Date Coverage End Date MEDICARE NHIC [place] [place] [address] [id number] Maureen Foreman Self - patient is the insured [facility] [address] [place] [phone] [id number] Maureen Foreman Self - patient is [...]
--- OUTSIDE RECORDS SUMMARY | 2025-01-09 07:45 | XMS_ITS | Patient Health Record ---
Author Organization [facility] Address [address] [place] [address] Care Team Providers Care Dike Supervisor Name Role Phone Alton Durham MD Primary Care Provider Bean Cortes Jr Reason For Referral No Information Plan Of Treatment No Information Insurance Providers Payer Name Payer Address Payer Phone Subscriber Number Group Number Insured Name Patient Relationship to Insured Coverage Start Date Coverage End Date MEDICARE OF [place] [address] [place], [place] [id number] ARINA WHITE Self - patient is the insured Replaced By [facility] [address] [address] [place] [address] [id number] ARINA WHITE Self - patient is the insured
== END 2025-01-09 08:04 | disposition home or self-care (01) ==
LOC: HO.HUSH 07:39
PROVIDERS: PCP Internal Medicine; Visit Provider Nurse Practitioner Family
DX: N20.0 Calculus of kidney (principal); N28.1 Cyst of kidney, acquired; Z13.9 Encounter for screening, unspecified
CPT/HCPCS: 99213; G2211

== ENCOUNTER → 2025-01-09 07:35 | Outpatient (BNVA) | payer MEDICARE, OTHER, SELFPAY | PROVIDERS: PCP Internal Medicine; Visit Provider Nurse Practitioner Family | DX: N20.0 Calculus of kidney (principal); N28.1 Cyst of kidney, acquired | CPT/HCPCS: 81003; 99212 ==

== ENCOUNTER 2025-01-11 09:46 | Outpatient (REF) | payer MEDICARE, OTHER, SELFPAY ==
[2025-01-11 14:23] LABS: Alanine Aminotransferase 30 U/L (0-31); Albumin Level 4.4 g/dL (3.5-5.0); Alkaline Phosphatase 87 U/L (39-117); Aspartate Amino Transferase 42 U/L (5-31); Iron 124 mcg/dL (30-160); Percent Iron Saturation 38 % (15-50); Total Iron Binding Capacity 325 mcg/dL (228-428); Total Protein 6.9 g/dL (6.5-8.0); Unsaturated Iron Binding 201 ug/dL
[2025-01-11 14:34] LABS: Ferritin 36 ng/mL (10-250)
== END 2025-01-11 09:47 | disposition home or self-care (01) ==
LOC: HO.LAB 09:46
PROVIDERS: PCP Internal Medicine; Visit Provider Nurse Practitioner Family
DX: R74.01 Elevation of levels of liver transaminase levels (principal); R10.13 Epigastric pain; K21.9 Gastro-esophageal reflux disease without esophagitis; R14.2 Eructation; R63.4 Abnormal weight loss; Z79.899 Other long term (current) drug therapy
CPT/HCPCS: 36415; 80076; 82728; 83540; 97803; 99212

== ENCOUNTER 2025-01-11 09:46 | Outpatient (AMB) | payer MEDICARE, OTHER, SELFPAY ==
--- OUTSIDE RECORDS SUMMARY | 2023-09-16 10:35 | XMS_ITS ---
Author Organization [facility] Address [address] [place] [phone] Care Team Providers Care Electrical Tech/Project Manager Name Role Phone Marva GUILLAUME, Alton Primary Care Provider Bean Cortes Jr REASON FOR VISIT BELCHING Encounters Encounter Location Date Provider Diagnosis [facility] [address] [place] [phone] 09/16/2023 Bean Holley Jr Plan Of Treatment No Information Progress Notes * ABEL WHITEANCEDOB:[birth year] (84 yo F)Acc No.[id number]:09/16/2023 Progress Notes Patient: ARINA LEIVA Provider: Glenn Holley MD :1940 A ge:83 Y S ex:Female Date:09/16/2023 Address:[address] [place], [place] [id number] Pcp:Alton Durham MD Subjective: * Chief Complaints: [...] Holley MD Date: 09/16/2023 Generated for Nando baldwin/Douglas/eTimeldasmitting on: 0 01/11/2025 11:34 AM EDT
--- OUTSIDE RECORDS SUMMARY | 2024-08-08 09:12 | XMS_ITS ---
Author Organization Alton Durham MD Address [address] [phone] Care Team Providers Care Fire Officer Name Role Phone Marva Alton Primary Care Provider REASON FOR VISIT refill Medications Medication SIG (Take, Route, Frequency, Duration) Notes Start Date End Date Status Rosuvastatin Calcium 20 MG take 1 tablet by mouth every day Orally Once a day for 90 days Active Encounters Encounter Location Date Provider Diagnosis Alton Durham MD [address] [phone] 08/08/2024 Alton Durham Atherosclerosis of b oth [...] days Next Appt Details Provider Name:Alton wick, 03/09/2025 07:45:00 AM, [address] [facility] [address], [address], [place], [place], [phone], Provider Name:Alton Joiner ier, 03/16/2025 08:00:00 AM, [address] [facility], [address], [place], [place], [phone], Progress Notes * Maureen WHITE JDOB: (84 yo F)Acc No.[id number]:08/08/2024 Patient: Kena Maureen JUAREZ :1940 A ge:84 Y S ex:Female Address:[address] [place] [address] [place] [address] * Refills Refill Rosuvastatin Calcium Tablet, 20 MG, Orally, 90, take 1 tablet by mouth every day, Once a day, 90 days, Refills=3 * true * Date: Generated for Nando baldwin/Douglas/Stormyitting on: 0 01/11/2025 11:33 AM EDT
--- OUTSIDE RECORDS SUMMARY | 2024-08-11 05:44 | XMS_ITS ---
Author Organization Alton Durham MD Address [address] [place] [phone] Care Team Providers Care Motor And Generator Brush Maker Name Role Zahra JeimyAlton staley Primary Care Provider REASON FOR VISIT Thyroid US due Encounters Encounter Location Date Provider Diagnosis Alton Durham MD [address] [facility] [address] [place] [phone] 08/11/2024 Alton Durham Thyroid nodule E04.1 Assessments [...] 08/11/2024 Next Appt Details Provider Name:Alton wick, 03/09/2025 07:45:00 AM, [address], [address] [place] [address] [place], [phone], Provider Name:Alton Joiner ier, 03/16/2025 08:00:00 AM, [address], [address], [place], [phone], Progress Notes * KATELYNCHANTALEMaureen JDOB: (84 yo F)Acc No.[id number]:08/11/2024 Patient: Kena ARRIAGAMINGODelmyMaureen Francisco Javier :1940 A ge:84 Y S ex:Female Address:[address] [place] [address] Subjective: * Chief Complaints: * T hyroid US due * Medical History: * Surgical History: * Hospitalization/Major Diagno stic Procedure: * Medications: Objective: * Vitals: * Physical Examination: Assessment: * Assessment: 1. T hyroid nodule - E04.1 Plan: * Treatment: * Procedure Codes: * true * Date: Generated for Nando baldwin/Douglas/eTransmitting on: 0 01/11/2025 11:33 AM EDT
--- OUTSIDE RECORDS SUMMARY | 2024-08-31 03:00 | XMS_ITS ---
Author Organization Alton Durham MD Address [address] [place], [place] [phone] Care Team Providers Care Information Technology Officer Name Role Phone MarvaAlton Primary Care Provider [phone] Results Component Value Reference Range Notes Liver Panel Reviewed date:08/31/2024 05:02:52 PM Interpretation: Performing Lab:[facility], [address] [place] [phone] Notes/Report: Bilirubin Total 0.7 0.0-1.0 mg/dL Bilirubin Direct 0.3 0.0-0.5 mg/dL Aspartate Amino Transferase 34 5-31 U/L Alanine Aminotransferase 27 0-31 U/L Total Protein 6.4 6.5-8.0 g/dL Albumin Level 4.0 3.5-5.0 g/dL Alkaline Phosphatase 89 39-117 U/L Potassium Reviewed date:08/31/2024 05:00:46 PM Interpretation: Performing Lab:[facility], [address] [place] [phone] Notes/Report: Potassium 3.8 3.3-5.1 mmol/L Lipid Panel with Reflex Reviewed date:08/31/2024 05:02:44 PM Interpretation: Performing Lab:[facility], [address] [facility], [place] [address] Notes/Report: Triglycerides 32 <150 mg/dL Desirable Triglyceride: [...] Location Date Provider Diagnosis Alton Durham MD [address] [place] [address] [address] [place], [place] [phone] 08/31/2024 Atlon Durham Elevated cholesterol E78.00 ; AA (alcohol abuse) 305.00 and Hypokalemia E87.6 Assessments Encounter Date Diagnosis (ICD Code) Assessment Notes Treatment Notes Treatment Clinical Notes Section Notes 08/31/2024 Elevated cholesterol (ICD-10 - E78.00) 08/31/2024 AA (alcohol abuse) (ICD9-CM - 305.00) 08/31/2024 Hypokalemia (ICD-10 - E87.6) Plan Of Treatment Next Appt Details Provider Name:Alton wick, 03/09/2025 07:45:00 AM, [address] [place] [address], [address] [facility], [place], [place], [phone], Provider Name:Alton wick, 03/16/2025 08:00:00 AM, [address] [place] [address], [place] [address], [place], [place], [phone], Progress Notes * CHRISTOPHER Maureen JDOB: (84 yo F)Acc No.[id number]:08/31/2024 Progress Note Patient: Maureen LEIVA Provider: France Durham MD :1940 A ge:84 Y S ex:Female Date:08/31/2024 Address:[address] [place], [place] [phone] Subjective: * Chief Complaints: * 1 . [...] Generated for Nando baldwin/Douglas/Mary Ellen on: 0 01/11/2025 11:34 AM EDT
--- OUTSIDE RECORDS SUMMARY | 2024-09-05 04:45 | XMS_ITS ---
Author Organization Alton Durham MD Address [address] [place] [phone] Care Team Providers Care Paintings Conservator Name Role Phone Alton Durham Primary Care [...] Location Date Provider Diagnosis Alton Durham MD [address] [place] [address] [address] [place], [place] [phone] 09/05/2024 Alton Durham Neutropenia D70.9 ; Esophageal [...] Name:Alton Joiner ier, 03/09/2025 07:45:00 AM, [address] [facility], [address], [place], [place], [phone], Provider Name:Alton Joiner ier, 03/16/2025 08:00:00 AM, [address] [facility], [address], [place], [place], [phone], Progress Notes * Maureen WHITE JDOB: (84 yo F)Acc No.[id number]:09/05/2024 Progress Notes Patient: Maureen LEIVA Provider: France Durham MD :1940 A ge:84 Y S ex:Female Date:09/05/2024 Address:[address] [place] [address] [id number] Subjective: * Chief Complaints: * 6 month [...] with the patient * Allergies: i svp operations dye: rashBactrim: hives over entire bodyKeflex: rashCipro: [...] MD Date: 0 09/05/2024 Generated for Printi ng/Fatanyag/eTransmitting on: 0 01/11/2025 11:34 AM EDT History and Physical Notes * [...]
--- OUTSIDE RECORDS SUMMARY | 2025-01-04 09:53 | XMS_ITS ---
Author Organization Alton Durham MD Address [address] [place] [phone] Care Team Providers Care Lottery Sales Clerk Name Role Phone MarvaAlton Primary Care Provider REASON FOR VISIT us renal arlene orders Encounters Encounter Location Date Provider Diagnosis Alton Durham MD [address] [facility] [address] [place] [phone] 01/04/2025 Alton Durham Calculus of kidney N20.0 Assessments Encounter Date Diagnosis (ICD Code) Assessment Notes Treatment Notes Treatment Clinical Notes Section Notes 01/04/2025 Calculus of kidney (ICD-10 - N20.0) Plan Of Treatment Future Test Test Name Order Date US RENAL BILATERAL 01/04/2026 Next Appt Details Provider Name:Alton wick, 03/09/2025 07:45:00 AM, [address], Suite [facility], [place], [place], [phone], Provider Name:Alton wick, 03/16/2025 08:00:00 AM, [address], [address], [place], [place], [phone], Progress Notes * Maureen WHITE JDOB: (84 yo F)Acc No.[id number]:01/04/2025 Patient: Maureen LEIVA :1940 A ge:84 Y S ex:Female Address:[address] [place] [id number] Subjective: * Chief Complaints: * U s renal arlene orders * Medical History: * Surgical History: * Hospitalization/Major Diagno stic Procedure: * Medications: Objective: * Vitals: * Physical Examination: Assessment: * Assessment: 1. C alculus of kidney - N20.0 Plan: * Treatment: * Procedure Codes: * true * Date: Generated for Nando baldwin/Douglas/Kellysmitting on: 0 01/11/2025 11:33 AM EDT
--- NOTE | 2025-01-11 10:02 | A.OFFVIS_ITS ---
VS Expanded 01/11/25 10:03 Height 5 ft 8 in Weight 123 lb 10.869 oz BMI 18.8 Intake Visit Reasons: monitor wt Allergies cephalexin (From KEFLEX) Allergy (Severe, Verified 01/09/25 08:21) RASH Sulfa (Sulfonamide Antibiotics) (SULFA (SULFONAMIDE ANTIBIOTICS)) Allergy (Severe, Verified 01/09/25 08:21) INTSERNAL AND EXTERNAL RASH/INFECTION Iodinated Contrast Media (IV Dye, Iodine Containing) Allergy (Intermediate, Verified 01/09/25 08:21) HIVES,REDNESS + SWELLING sulfamethoxazole (From BACTRIM) Allergy (Intermediate, Verified 01/09/25 08:21) INTERNAL AND EXTERNAL RASH/ INFECTION Nutrition Presentation Details: Pt presents for MNT for unintentional weight Pt reports gradually trying new foods , reading food labels, reducing on dairy which she reports has helped in lessening GI discomfort and belching. Reports taking creon for 2 days 24 hr food recall B: Sinhala toast (sourdough bread) 2 soft boiled eggs, fairlife L: Pasta salad with shredded chicken, coconut water (coconut cream and fruit/sugar) D: ham, potato and zucchini squash, fairlife sometimes makes a milkshake with soy yogurt/fruit and lactose free ice cream reports having protein powder at home but has not tried eating out couple of times a week and enjoying the foods, choosing carefully (choosing admission nurse coordinator meals , not fried and dairy free for the most part Reports having fluids with meals (milk/coconut water/dilitued juices with water) BS Monitoring Most Recent Diabetes Results: Creatinine, (0.5-1.4) 0.57 mg/dL 11/02/24 BUN, (9-16) 20 mg/dL H 11/02/24 Sodium, (135-145) 141 mmol/L 11/02/24 Potassium, (3.3-5.1) 3.7 mmol/L 11/02/24 Chloride, (96-108) 108 mmol/L 11/02/24 Carbon Dioxide, (22-29) 26 mmol/L 11/02/24 Calcium, (8.4-10.2) 9.4 mg/dL 11/02/24 AST, (5-31) 27 U/L 11/02/24 ALT, (0-31) 25 U/L 11/02/24 Total Protein, (6.5-8.0) 6.2 g/dL L 11/02/24 Albumin, (3.5-5.0) 4.3 g/dL 11/02/24 PFSH Medical History Transaminitis Chronic leukopenia Erosive esophagitis Kidney stone GERD (gastroesophageal reflux disease) High cholesterol HTN (hypertension) Surgical History H/O lithotripsy H/O esophagogastroduodenoscopy (07/09/23) Social History Alcohol intake: never Patient Tobacco Use Status: Never used Tobacco Advance Directives Date on File: 09/22/23 service: No Current occupational status: retired Current occupational exposures/hazards: No Assessment & Plan Assessment & Plan (1) Weight loss, unintentional: Code(s): R63.4 - Abnormal weight loss Category: Medical Plan: Have a combination of protein food/whole grain starches Caution with high salt foods /acidic foods Choose lactose free options when eating out wt : 51 (01/2024) , 52 kg (04/25), 55kg(05/27), 54 kg (07/25), 53 kg (11/24), 56kg(01/25) est kcal needs (kg BW x 30) : 1700 est protein 1- 1.2 g/kg bw: 60- 70 est fluid needs as per 30 x kg BW: 1700 Patient Instructions: Add orgain protein powder (1 scoop) to the yogurt smoothie Include at least 2-3 oz of protein in each meal, try to eat the protein first if feeling full fast continue having fairlife at least 2 cups a day t Coding Level of Care Code Nutr Indiv Subseq (33057) Diagnoses Weight loss, unintentional R63.4 Time Spent (min) 30
[2025-01-11 10:03] VITALS: BMI 18.8
--- OUTSIDE RECORDS SUMMARY | 2025-01-11 11:34 | XMS_ITS | Patient Health Record ---
Author Organization [facility] Address [address] [place] [address] Care Team Providers Care Power Chisel Operator Name Role Phone Alton Durham MD Primary Care Provider Bean Cortes Jr Reason For Referral No Information Plan Of Treatment No Information Insurance Providers Payer Name Payer Address Payer Phone Subscriber Number Group Number Insured Name Patient Relationship to Insured Coverage Start Date Coverage End Date MEDICARE OF [place] [address] [place], [place] [id number] ARINA WHITE Self - patient is the insured Formerly [facility] [address] [address] [place] [address] [id number] ARINA WHITE Self - patient is the insured
--- OUTSIDE RECORDS SUMMARY | 2025-01-11 11:35 | XMS_ITS | Patient Health Record ---
Author Organization Alton Durham MD Address [address] [place] [phone] Care Team Providers Care Concert Or Lecture Hall Manager Name Role Phone Alton Durham Primary [...] Potassium Reviewed date:01/14/2024 09:08:52 AM Interpretation: Performing Lab:[facility], [address] [place] [phone] Notes/Report: Potassium 3.6 3.3-5.1 mmol/L Slight Hemoly sis Potassium Reviewed date:02/03/2024 12:32:20 PM Interpretation: Performing Lab:[facility], [address] [place] [phone] Notes/Report: Potassium 4.2 3.3-5.1 mmol/L Slight Hemoly sis Complete Blood Count Auto Di ff Reviewed date:03/14/2024 09:33:06 AM Interpretation:see back 03-14-2024 Performing Lab:[facility], [address] [place] [phone] Notes/Report: White Blood Count 2.5 4.8-10.8 X10*3/uL [...] NRBC Abs Auto 0.000 0.0-0.012 X10*3/uL Comprehensive [place]. Panel Fa st Reviewed date:03/07/2024 04:52:00 PM Interpretation: Performing Lab:[facility], [address] [place] [phone] Notes/Report: Sodium 141 135-145 mmol/L Potassium 3.9 3.3-5.1 mmol/L Slight Hemolysis.Interpret result with caution. Chloride 104 96-108 mmol/L Carbon Dioxide 27 22-29 mmol/L Anion Gap 14 12-20 Blood Urea Nitrogen 23 9-16 mg/dL Creatinine 0.64 0.5-1.4 mg/dL Estimated Glomerular Filt Rate > 60 NOTE: For -[place] individuals, multiply the result by 1.210. Chronic [...] Panel Reviewed date:03/07/2024 04:52:17 PM Interpretation: Performing Lab:[facility], [address] [place] [phone] Notes/Report: Triglycerides 63 <150 mg/dL Desirable Triglyceride: [...] t Reviewed date:03/07/2024 04:51:31 PM Interpretation: Performing Lab:[facility], [address] [place] [phone] Notes/Report: Urine, Clean Catch Color Urine Yellow Appearance Urine Clear PH 6.5 5.0-9.0 Glucose Urine UA Negative Negative mg/dL Urine Blood Negative Negative Specific [place] - Urine 1.020 1.005-1.025 Urine Protein 30 [...] ff Reviewed date:04/04/2024 12:44:09 PM Interpretation: Performing Lab:[facility], [address] [place] [phone] Notes/Report: White Blood Count 2.7 4.8-10.8 X10*3/uL [...] Potassium Reviewed date:04/04/2024 12:47:19 PM Interpretation: Performing Lab:[facility], [address] [place] [phone] Notes/Report: Potassium 3.9 3.3-5.1 mmol/L Complete Blood Count Auto Di ff Reviewed date:05/09/2024 12:31:03 PM Interpretation: Performing Lab:[facility], [address] [place] [phone] Notes/Report: White Blood Count 2.8 4.8-10.8 X10*3/uL [...] Potassium Reviewed date:05/09/2024 12:25:38 PM Interpretation: Performing Lab:[facility], [address] [place] [phone] Notes/Report: Potassium 3.9 3.3-5.1 mmol/L Liver Panel Reviewed date:08/31/2024 05:02:52 PM Interpretation: Performing Lab:[facility], [address] [place] [phone] Notes/Report: Bilirubin Total 0.7 0.0-1.0 mg/dL Bilirubin Direct 0.3 0.0-0.5 mg/dL Aspartate Amino Transferase 34 5-31 U/L Alanine Aminotransferase 27 0-31 U/L Total Protein 6.4 6.5-8.0 g/dL Albumin Level 4.0 3.5-5.0 g/dL Alkaline Phosphatase 89 39-117 U/L Potassium Reviewed date:08/31/2024 05:00:46 PM Interpretation: Performing Lab:[facility], [address] [place] [phone] Notes/Report: Potassium 3.8 3.3-5.1 mmol/L Lipid Panel with Reflex Reviewed date:08/31/2024 05:02:44 PM Interpretation: Performing Lab:[address] [address] Notes/Report: Triglycerides 32 <150 mg/dL Desirable Triglyceride: [...] date:04/17/2024 12:23:13 PM Interpretation: Performing Lab: Notes/Report: [address] [address] XRay Report Signed Patient: Maureen Foreman MR#: [id number] : 1940 Acct:[id number] Age/Sex: 83 / F ADM Date: 03/29/24 Loc: CONCHA Attending Dr: Julee ANAYA Ordering Physician: Julee Asher Date of Service: 03/29/24 Procedure(s): XR soft tissue neck Accession Number(s): [id number] cc: Alton Durham MD; Julee Asher EXAMINATION: XR SOFT TISSUE NECK CLINICAL INDICATION: K22.2 - Esophageal obstruction COMPARISON: CT soft tissue neck 06/19/2023. Ultrasound of the thyroid 07/13/2023. TECHNIQUE: 2 views of the soft tissue neck were obtained. Exam submitted for review 04/17/2024 8:16 AM [employer]. FINDINGS: Soft tissue films of the neck [...] OV> 04/17/24918 DD/ 150 TD/TT: 03/29/24 1510 Manager Consumer Insights: [place] [address] XRay Report Signed Patient: Maureen Foreman MR#: [id number] : 1940 Acct:[id number] Age/Sex: 83 / F ADM Date: 03/29/24 Loc: HO.XRAY Attending Dr: Julee Asher MEDICAL LABORATORY TECHNICIAN-BC Ordering Physician: Julee Asher-DG Date of Service: 03/29/24 Procedure(s): XR sof t tissue neck Accession Number(s): [id number] cc: Alton Durham MD; Julee Asher MEDICAL LABORATORY TECHNICIAN-BC EXAMINATION: XR SOFT TISSUE NECK CLINICAL INDICATION: K22.2 - Esophageal obstruction COMPARISON: CT soft tissue neck 06/19/2023. Ultrasound of the th yroid 07/13/2023. TECHNIQUE: 2 views of the soft tissue neck were obtained. Exam submitted for r eladiow 04/17/2024 8:16 AM [employer]. FINDINGS: Soft tissue films of the neck [...] OV> 04/17/24918 DD/ 1502 TD/TT: 03/29/24 1510 Manager Consumer Insights: MM tomosynthesis screening B I Reviewed date:05/05/2024 04:58:08 PM Interpretation: Performing Lab: Notes/Report: [address] [place] [address] Mammography Report Signed Patient: Maureen Foreman MR#: [id number] : 1940 Acct:[id number] Age/Sex: 83 / F ADM Date: 04/24/24 Loc: HO.MAMMO Attending Dr: Alton Durham MD Ordering Physician: Alton Durham MD Results: 1Ne gative Date of Service: 04/24/24 Follow Up: 1 Year From Orig ina Mammogram Procedure(s): MM tomosynthesis screening BI Accession Number(s): [id number] cc: Alton Durham MD EXAMINATION: MM SCREENING [...] by: Judy Bravo DO 05/05/2024 04:28 PM [facility] Dictated By: Judy Bravo DO Signed By: <Electronically signed by Judy Bravo DO in OV> 05/05/24 1628 DD/ 0800 TD/TT: 04/24/24 0821 Manager Consumer Insights: [address] [place] [address] Mammography Report Signed Patient: Maureen Foreman MR#: [id number] : 1940 Acct:[id number] Age/Sex: 83 / F ADM Date: 04/24/24 Loc: HO.MAMMO Attending Dr: Alton Durham MD Ordering Physician: Alton Durham MD Results: 1Ne gative Date of Service: Follow Up: 1 Year From Orig inal Mammogram Procedure(s): MM tomosynthesis screening BI Accession Number(s): [id number] cc: Alton Durham MD EXAMINATION: MM SCREENING [...] by: Judy Bravo DO 05/05/2024 04:28 PM [facility] Dictated By: Judy Bravo DO Signed By: <Electronically signed by Judy Bravo DO in OV> 05/05/24 1628 DD/ 0800 TD/TT: 04/24/24 0821 Manager Consumer Insights: Liver Panel Reviewed date:05/15/2024 02:16:26 PM Interpretation: Performing Lab:[facility], [address] [place] [phone] Notes/Report: Bilirubin Total 0.4 0.0-1.0 mg/dL Bilirubin Direct 0.1 0.0-0.5 mg/dL Aspartate Amino Transferase 32 5-31 U/L Alanine Aminotransferase 32 0-31 U/L Total Protein 6.8 6.5-8.0 g/dL Albumin Level 4.2 3.5-5.0 g/dL Alkaline Phosphatase 99 39-117 U/L CT cervical spine wo con Reviewed date:05/18/2024 01:47:30 PM Interpretation: Performing Lab: Notes/Report: [address] [address] [address] Scan Report Signed Patient: Maureen Foreman MR#: [id number] : 1940 Acct:[id number] Age/Sex: 83 / F ADM Date: 05/16/24 Loc: HO.ED Attending Dr: Ordering Physician: Segundo Montague Date of Service: 05/16/24 Procedure(s): CT cervical spine wo IV con Accession Number(s): [id number] cc: Segundo Montague; Alton Durham MD Report Number: [id number]: Total DLP = 214.00 mGy-cm EXAMINATION: CT [...] 05/16/24 1238 DD/ 1142 TD/TT: 05/16/24 1218 Manager Consumer [employer]ights: [place] [address] CT Scan Report Signed Patient: Maureen Foreman MR#: [id number] : 1940 Acct:[id number] Age/Sex: 83 / F ADM Date: 05/16/24 Loc: HO.ED Attending Dr: Ordering Physician: Segundo Montague Date of Service: 05/16/24 Procedure(s): CT cer vical spine wo IV con Accession Number(s): [id number] cc: Segundo Montague; Alton Durham MD Report [...] by: Wilberto Cardoso MD 05/16/2024 12:38 PM [facility] Dictated By: Wilberto Kerr MD Signed By: <Electronically signed by Wilberto Martel MD in OV> 05/16/24 1238 DD/ 1142 TD/TT: 05/16/24 1218 Manager Consumer Insights: CT head/brain wo con Reviewed date:05/16/2024 04:41:18 PM Interpretation: Performing Lab: Notes/Report: [address] [address] [address] Scan Report Signed Patient: Maureen Foreman MR#: [id number] : 1940 Acct:[id number] Age/Sex: 83 / F ADM Date: 05/16/24 Loc: HO.ED Attending Dr: Ordering Physician: Generic ED Physician Date of Service: 05/16/24 Procedure(s): CT head/brain wo IV con Accession Number(s): [id number] cc: Alton Durham MD; Generic ED Physician Report Number: [id number]: Total DLP = 625.00 mGy-cm EXAMINATION: CT [...] by: Roberto Huffman MD 05/16/2024 12:52 PM [facility] Dictated By: Roberto Huffman MD Signed By: <Electronically signed by Roberto Huffman MD in OV> 05/16/24 1252 DD/ 1153 TD/TT: 05/16/24 1218 Manager Consumer Insights: [place] [address] CT Scan Report Signed Patient: Maureen Foreman MR#: [id number] : 1940 Acct:[id number] Age/Sex: 83 / F ADM Date: 05/16/24 Loc: HO.ED Attending Dr: Ordering Physician: Generic ED Physician Date of Service: 05/16/24 Procedure(s): CT head/brain wo IV con Accession Number(s): [id number] cc: Alton Durham MD; [facility] ED Physician Report Number: [id number]: [...] by: Roberto Huffman MD 05/16/2024 12:52 PM [facility] Dictated By: Roberto Huffman MD Signed By: <Electronically signed by Roberto Huffman MD in OV> 05/16/24 1252 DD/ 1153 TD/TT: 05/16/24 1218 Manager Consumer Insights: CT facial bones wo con Reviewed date:05/16/2024 04:42:06 PM Interpretation: Performing Lab: Notes/Report: [address] [address] [address] Scan Report Signed Patient: Maureen Foreman MR#: [id number] : 1940 Acct:[id number] Age/Sex: 83 / F ADM Date: 05/16/24 Loc: HO.ED Attending Dr: Ordering Physician: Segundo Montague Date of Service: 05/16/24 Procedure(s): CT facial bones wo IV con Accession Number(s): [id number] cc: Segundo Montague; Alton Durham MD Report Number: [id number]: Total DLP = 215.00 mGy-cm EXAMINATION: CT [...] by: Roberto Huffman MD 05/16/2024 12:52 PM [facility] Dictated By: Roberto Huffman MD Signed By: <Electronically signed by Roberto Huffman MD in OV> 05/16/24 1252 DD/ 1153 TD/TT: 05/16/24 1218 Manager Consumer Insights: [place] [address] CT Scan Report Signed Patient: Maureen Foreman MR#: [id number] : 1940 Acct:[id number] Age/Sex: 83 / F ADM Date: 05/16/24 Loc: HO.ED Attending Dr: Ordering Physician: Segundo Montague Date of Service: 05/16/24 Procedure(s): CT fac ial bones wo IV con Accession Number(s): [id number] cc: Segundo Montague; Alton Durham MD Report [...] by: Roberto Huffman MD 05/16/2024 12:52 PM [facility] Dictated By: Roberto Huffman MD Signed By: <Electronically signed by Roberto Huffman MD in OV> 05/16/24 1252 DD/ 1153 TD/TT: 05/16/24 1218 Manager Consumer Insights: Complete Blood Count Man Dif Reviewed date:06/02/2024 12:39:21 PM Interpretation: Performing Lab:[address] [address] Notes/Report: White Blood Count 3.4 4.8-10.8 X10*3/uL [...] te Reviewed date:06/02/2024 12:22:30 PM Interpretation: Performing Lab:[address] [address] Notes/Report: Erythrocyte Sedimentation Rate 2 0-20 MM/HR Patients with polycythemia and many hemoglobin abnormalities may have depressed sed rates whereas patients with anemia may have elevated sed rates. Comprehensive Met. Panel Reviewed date:06/02/2024 12:23:01 PM Interpretation: Performing Lab:[address], [place] [address] Notes/Report: Sodium 142 135-145 mmol/L Potassium 4.4 [...] Dehydrogenase Reviewed date:06/02/2024 12:22:09 PM Interpretation: Performing Lab:[facility], [address] [place] [phone] Notes/Report: Lactate Dehydrogenase 255 122-220 U/L Vitamin B12 and Folate Reviewed date:06/02/2024 04:20:13 PM Interpretation: Performing Lab:[facility], [address] [place] [phone] Notes/Report: Vitamin B12 488 200-900 pg/mL NORMAL 200-900 PG/ML INDETERMINATE 160-199 PG/ML DEFICIENT < 160 PG/ML Folate 13.8 > or = 4.0 ng/mL Reference Values: > or = 4.0 ng/mL < 4.0 ng/mL suggests folate deficiency Methotrexate, aminopterin and folinic acid (leucovorin) are chemotherapeutic agents whose molecular structures are similar to folate; therefore, the [employer] folate assay cannot be used for patients using these drugs. Immunofixation Pnl, Serum Reviewed date:06/07/2024 08:09:13 PM Interpretation: Performing Lab:[address] [address] Notes/Report: IgG 669 318-9386 mg/dL IgA 85 70-320 mg/dL IgM 41 50-300 mg/dL THIS TEST WAS PERFORMED AT: [facility] [address] [place] [address] ADALID FOURNIER MD Immunofixation Interpretation SEE NOTE Normal pattern. No monoclonal proteins detected. THEO Reflex Titer and Pattern Reviewed date:06/07/2024 08:08:55 PM Interpretation: Performing Lab:[address] [address] Notes/Report: Anti Nuclear Antibody Screen NEGATIVE NEGATIVE THEO IFA is a first line screen for detecting the presence of up to approximately 150 autoantibodies in various autoimmune diseases. A negative THOE IFA result suggests an THEO-associated autoimmune disease is not present at this time, but is not definitive. If there is high clinical suspicion for Sjogren's syndrome, testing for anti-SS-A/Ro antibody should be considered. Anti-Joan-1 antibody should be considered for clinically suspected inflammatory myopathies. AC-0: Negative International Consensus on THEO Patterns (https://doi.org/10.1 515/uyan-6148-7374) For additional information, please refer to http://education.R17.WoofRadar/faq/ EPG318 (This link is being provided for informational/ educational purposes only.) THIS TEST WAS PERFORMED AT: [facility] [address] [place] [address] ADALID FOURNIER MD Anti Nuclear Antibody Titer TNP Anti Nuclear Antibody Pattern TNP THEO Titer 2 TNP THEO Pattern 2 TNP THEO Titer 3 TNP THEO Pattern 3 TNP Rheumatoid Factor Reviewed date:06/02/2024 04:14:35 PM Interpretation: Performing Lab:[address] [address] Notes/Report: Rheumatoid Factor < 13.0 <15.0 IU/mL Hepatitis B,C Profile Reviewed date:06/02/2024 04:14:21 PM Interpretation: Performing Lab:[facility], [address] [place] [phone] Notes/Report: Hepatitis B Surface Antibody NONREACTIVE Nonreactive Nonreactive: < 8.00 mIU/mL Hepatitis B Core Antibody Nonreactive Nonreactive Hepatitis C Antibody Nonreactive Nonreactive Antibodies to HCV not detected; does not exclude early acute HCV infection. Hepatitis B Surface Antigen Negative Negative HIV Ab/Ag Reviewed date:06/02/2024 04:14:43 PM Interpretation: Performing Lab:[facility], [address] [place] [address] Notes/Report: HIV AB/AG Nonreactive Nonreactive HIV-1 p24 [...] limit of detection of this assay. The [employer]ometryCloudniPage Mage HIV Ag/Ab Combo assay result and supplemental assay results should be interpreted in conjunction with the patient's clinical presentation, history and other laboratory results. If the results are inconsistent with clinical evidence, additional testing is suggested to confirm the result. US carotid duplex BI Reviewed date:06/09/2024 12:41:10 PM Interpretation: Performing Lab: Notes/Report: [address] [address] Ultrasound Report Signed Patient: Maureen Foreman MR#: [id number] : 1940 Acct:[id number] Age/Sex: 84 / F ADM Date: 06/09/24 Loc: . Attending Dr: Alton Durham MD Ordering Physician: Alton Durham MD Date of Service: 06/09/24 Procedure(s): US carotid duplex BI Accession Number(s): [id number] cc: Alton Durham MD EXAMINATION: US EXTRACRANIAL [...] by: Wilberto Cardoso MD 06/09/2024 12:19 PM [facility] Dictated By: Wilberto Sanchse MD Signed By: <Electronically signed by Wilbreto Martel MD in OV> 06/09/24 1219 DD/ 1127 TD/TT: 06/09/24 1150 Manager Consumer Insights: [address] [address] Ultrasound Report Signed Patient: Maureen Foreman MR#: [id number] : 1940 Acct:[id number] Age/Sex: 84 / F ADM Date: 06/09/24 Loc: HO.US Attending Dr: Alton Durham MD Ordering Physician: Alton Durham MD Date of Service: 06/09/24 Procedure(s): US car otid duplex BI Accession Number(s): [id number] cc: Alton Durham MD EXAMINATION: US EXTRACRANIAL [...] 06/09/24 1219 DD/ 1127 TD/TT: 06/09/24 1150 Manager Consumer Insights: US abdomen complete Reviewed date:06/13/2024 12:36:35 PM Interpretation: Performing Lab: Notes/Report: [address] [address] Ultrasound Report Signed Patient: Maureen Foreman MR#: [id number] : 1940 Acct:[id number] Age/Sex: 84 / F ADM Date: 06/13/24 Loc: HO.US Attending Dr: Julee ARELLANOP- Ordering Physician: Julee Asher Date of Service: 06/13/24 Procedure(s): US abdomen complete Accession Number(s): [id number] cc: Alton Durham MD; Julee Asher [facility] CLINICAL HISTORY: R74.01 - Elevation of [...] 06/13/24 1026 DD/ 1025 TD/TT: 06/13/24 1025 Manager Consumer Insights: [place] [address] Ultrasound Report Signed Patient: Maureen Foreman MR#: [id number] : 1940 Acct:[id number] Age/Sex: 84 / F ADM Date: 06/13/24 Loc: HO.US Attending Dr: Julee LINTON-DG Ordering Physician: Julee Asher Date of Service: 06/13/24 Procedure(s): US abd omen complete Accession Number(s): [id number] cc: Alton Durham MD; Julee Asher MEDICAL LABORATORY TECHNICIAN-DG CLINICAL HISTORY: R7 4.01 - Elevation of [...] 06/13/24 1026 DD/ 1025 TD/TT: 06/13/24 1025 Manager Consumer Insights: IRON PROFILE Reviewed date:07/03/2024 12:28:58 PM Interpretation: Performing Lab:[facility], [address] [place] [phone] Notes/Report: Iron 123 30-160 mcg/dL Total Iron Binding Capacity 338 228-428 mcg/dL Percent Iron Saturation 36 15-50 % Unsaturated Iron Binding 215 Ferritin Reviewed date:07/03/2024 12:22:12 PM Interpretation: Performing Lab:[facility], [address] [place] [phone] Notes/Report: Ferritin 32 10-250 ng/mL C Reactive Protein Reviewed date:07/03/2024 12:21:54 PM Interpretation: Performing Lab:[facility], [address] [place] [phone] Notes/Report: C Reactive Protein < 0.10 < or = 0.50 mg/dL Ceruloplasmin Reviewed date:07/13/2024 12:40:30 PM Interpretation: Performing Lab:[facility], [address] [place] [phone] Notes/Report: Ceruloplasmin 26 14-48 mg/dL THIS TEST WAS PERFORMED AT: [facility] [address] [place] [phone] ADALID FOURNIER MD Alpha Fetoprotein Reviewed date:07/13/2024 04:14:53 PM Interpretation: Performing Lab:[facility], [address] [place] [phone] Notes/Report: Alpha Fetoprotein 5.3 Reference Range: <6.1 The use of AFP as a tumor marker in females is not recommended. This test was performed using the Mat Shongaloo chemiluminescent method. Values obtained from different assay methods cannot be used interchangeably. AFP levels, regardless of value, should not be interpreted as absolute evidence of the presence or absence of disease. THIS TEST WAS PERFORMED AT: [facility] [address] [address] ADALID FOURNIER MD Liver Fibrosis Pnl Reviewed date:07/13/2024 12:40:22 PM Interpretation: Performing Lab:[facility], [address] [place] [phone] Notes/Report: Liver Fibrosis Score 0.25 Liver Fibrosis [...] a>0.62 and a<=1.00 : A3 (severe activity) KUY-Ynlzi-7-Macroglobul in 198 106-279 mg/dL FIB-Haptoglobin 77 43-212 mg/dL FIB-Apolipoprotein A1 223 101-198 mg/dL FIB-Total Bilirubin 0.6 0.2-1.2 mg/dL FIB-GGT 27 3-65 U/L FIB-ALT 18 6-29 U/L Reference ID [id number] Footnote SEE NOTE The reliability of results [...] The performance characteristics have been determined by [facility]. It has not been cleared or approved by the U.S. Food and Drug Administration. Performance characteristics refer to the analytical performance of the test. Back&, [employer], the associated logo, [employer] and all associated [employer] patel are the registered trademarks of [employer]. All third green party patel - (R) and (TM) - are the property of their respective owners. (C) [id number] [employer]. All rights reserved. THIS TEST WAS PERFORMED AT: [facility] [facility] [place] [address] [place] [address] DELMER PRIETO MD,PHD,LOPEZ Mitochondrial Antibody Reviewed date:07/12/2024 07:07:20 PM Interpretation: Performing Lab:[facility], [address] [place] [phone] Notes/Report: Mitochondrial Antibodies NEGATIVE NEGATIVE The specimen was negative for cytoplasmic antibodies, however additional staining was observed suggesting the presence of Antinuclear Antibodies. Consider requesting order code 249, THEO Screen, IFA with Reflex to Titer and Pattern, or order code 25229, THEO Screen, IFA w/reflex Titer/Pattern, and Reflex to Multiplex 11 Ab Randall, if clinically indicated. THIS TEST WAS PERFORMED AT: [facility] [address] [place] [phone] ADALID FOURNIER MD Mitochondrial Ab Titer TNP Smooth Muscle Antibody Reviewed date:07/12/2024 07:07:11 PM Interpretation: Performing Lab:[address] [address] Notes/Report: Smooth Muscle Antibody <20 <20 U [...] type 1. THIS TEST WAS PERFORMED AT: [facility]/[address] [address] YANET KAMINSKI MD,PHD Complete Blood Count Auto Di ff Reviewed date:08/03/2024 12:56:05 PM Interpretation: Performing Lab:[facility], [address] [place] [phone] Notes/Report: White Blood Count 2.4 4.8-10.8 X10*3/uL [...] Panel Reviewed date:08/03/2024 04:21:18 PM Interpretation: Performing Lab:[facility], [address] [place] [phone] Notes/Report: Sodium 142 135-145 mmol/L Potassium 3.9 [...] Gold Reviewed date:08/03/2024 10:57:15 AM Interpretation: Performing Lab:[facility], [address] [place] [phone] Notes/Report: Hold Gold See Note Specimen held untested for 24 hours; Call to request Chemistry testing. SLIDE REVIEW Reviewed date:08/03/2024 10:54:08 AM Interpretation: Performing Lab:[facility], [address] [place] [phone] Notes/Report: SLIDE REVIEW VERIFIED US thyroid Reviewed date:08/11/2024 09:47:47 AM Interpretation: Performing Lab: Notes/Report: [address] [address] Ultrasound Report Signed Patient: Maureen Foreman MR#: [id number] : 1940 Acct:[id number] Age/Sex: 84 / F ADM Date: 08/10/24 Loc: HO.US Attending Dr: Alton Durham MD Ordering Physician: Alton Durham MD Date of Service: 08/10/24 Procedure(s): US thyroid Accession Number(s): [id number] cc: Alton Durham MD EXAMINATION: US THYROID [...] OV> 08/10/2420 DD/ 0746 TD/TT: 08/10/24 0810 Manager Consumer Insights: [address] [address] Ultrasound Report Signed Patient: Maureen Foreman MR#: [id number] : 1940 Acct:[id number] Age/Sex: 84 / F ADM Date: 08/10/24 Loc: HO.US Attending Dr: Alton Durham MD Ordering Physician: Alton Durham MD Date of Service: 08/10/24 Procedure(s): US thyroid Accession Number(s): [id number] cc: Alton Durham MD EXAMINATION: US THYROID [...] 08/10/24 0920 DD/ 0746 TD/TT: 08/10/24 0810 Manager Consumer Insights: Nely Sierra date:08/31/2024 05:00:30 PM Interpretation: Performing Lab:[facility], [address] [place] [phone] Notes/Report: Nely Dubose See Note Specimen held untested for 24 hours; Call to request Chemistry testing. Complete Blood Count Auto Di ff Reviewed date:11/03/2024 03:35:42 PM Interpretation: Performing Lab:[facility], [address] [place] [phone] Notes/Report: White Blood Count 2.7 4.8-10.8 X10*3/uL [...] Panel Reviewed date:11/03/2024 03:36:22 PM Interpretation: Performing Lab:[facility], [address] [place] [phone] Notes/Report: Sodium 141 135-145 mmol/L Potassium 3.7 [...] Dehydrogenase Reviewed date:11/02/2024 08:36:04 PM Interpretation: Performing Lab:[facility], [address] [place] [phone] Notes/Report: Lactate Dehydrogenase 230 122-220 U/L Hold Gold Reviewed date:11/02/2024 08:26:21 PM Interpretation: Performing Lab:[facility], [address] [place] [phone] Notes/Report: Hold Gold See Note Specimen held untested for 24 hours; Call to request Chemistry testing. Pathology Reviewed date:11/13/2024 01:02:31 PM Interpretation: Performing Lab:[facility], [address] [place] [phone] Notes/Report: ----- Name: Delmy Foreman Age/Sex: 84/F : 1940 Unit#: [id number] Attend Dr: Renay Hudson MD Re11/09/24 Status : [facility] Location: [facility] Disch: ----- SPEC : [id number] RECD : 11/09/24-0 STATUS: DEREK LIMA NUM: [id number] ASHLI: 11/09/24-[address] [facility] DR: Renay Hudson MD ENTERED: 11/09/24-11 [...] AhsanDelmy jamaal Mcintyre Age/Sex: 84/F : 1940 [id number] Unit#: [id number] Attend Dr: Renay Hudson MD Re11/09/24 Status : [facility] Location: [facility] Disch: ----- SPEC : [id number] RECD : 11/09/24-115 STATUS: DEREK LIMA NUM: [id number] ASHLI: 11/09/24-[address] [facility] DR: Renay Hudson MD ENTERED: 11/09/24-11 [...] microscopic examination, 1 piece in cassette D. ([facility]) Special studies orde red and performed: Immunostain for H. pylori on B and C; AB/PAS stains on A, B and C IHC S/NG Disclaimer NOTE: Unless otherwi se stated, all tissue is formalin-fixed and paraffin-embedded. Some or all of the immunohistochemical tests reported herein may have been developed and their performance characteristics determined by [facility]. They have not been cleared or appr baltazar by the U.S. Food and Drug Administration (FDA). However, the FDA has determined that such clearance or approval is not necessary. This laboratory is certified under the Clinical Laboratory Improvement Amendments of 1988 (CLIA) as qualified to perform high complexity clinical laboratory testing. Copies To: Alton Durham MD [facility] [address] [place] [address] Renay Hudson MD [facility] [address] [place] [address] ----- Signed (signature on file) Camden Shine MD 11/13/24 0958 ----- END OF REPORT Disaccharidases Reviewed date:11/15/2024 03:49:36 PM Interpretation: Performing Lab:[facility], [address] [place] [phone] Notes/Report: Comment Duodenum BX Lactase 32.0 15.0-45.5 [...] analytical performance characteristics have been determined by [facility]. It has not been cleared or approved by the FDA. This assay has been validated pursuant to the CLIA regulations and is used for clinical purposes. THIS TEST WAS PERFORMED AT: [facility] [address] [place] [address] DELMER PRIETO MD,PHD,LOPEZ US renal BI Reviewed date:01/02/2025 10:21:07 AM Interpretation: Performing Lab: Notes/Report: [address] [place] [address] Ultrasound Report Signed Patient: Maureen Foreman MR#: [id number] : 1940 Acct:[id number] Age/Sex: 84 / F ADM Date: 01/02/25 Loc: HO.US Attending Dr: Som Mckeon MD Ordering Physician: Som Mckeon MD Date of Service: 01/02/25 Procedure(s): US renal BI Accession Number(s): [id number] cc: Som Mckeon MD; Alton Durham MD [...] 01/02/25 1010 DD/ 0818 TD/TT: 01/02/25 0832 Manager Consumer Insights: [address] [address] Ultrasound Report Signed Patient: Maureen Foreman MR#: [id number] : 1940 Acct:[id number] Age/Sex: 84 / F ADM Date: 01/02/25 Loc: HO.US Attending Dr: Aneudy Fernández MD Ordering Physician: Som Mckeon MD Date of Service: 01/02/25 Procedure(s): US renal BI Accession Number(s): [id number] cc: Som Mckeon MD; Alton Durham MD Reason for Exam: N20 .0 - Calculus of kidney EXAMINATION: US RETROPERITONEAL LIMITED (RENAL ONLY) CLINICAL INFORMATION: Calculus of kidney. [facility] TECHNIQUE: Routine grayscale im aging [...] 01/02/25 1010 DD/ 0818 TD/TT: 01/02/25 0832 Manager Consumer Insights: TES[place] Reason For Referral No Information Medications [...] Administered Flu Vaccine IM Intramuscular 01/26/2012 Administered [facility] Flu Vaccine Unknown 02/11/2012 Administered Flu Vaccine IM Intramuscular 02/22/2013 Administered [facility] Tetanus Unknown 01/29/2006 Administered Prevnar 13 IM Intramuscular 04/10/2013 Administered zzz Unknown 04/10/2013 Administered Flu Vaccine Unknown 02/14/2014 Administered [facility] TDaP Unknown 03/21/2014 Administered [facility] Fluarix Quadrivalent IM Intramuscular 02/26/2015 Administered [facility] Flu Vaccine Unknown 02/15/2016 Administered [employer] [employer] Fluarix Quadrivalent Unknown 02/17/2017 Administered [facility] Flu Vaccine IM Intramuscular 01/21/2018 Administered pt wa s given the vaccine at [facility] in [place] [address] 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) Active confirmed Problem Disorder of lumbar disc (884188833) Lumbar disc disease (M51.9) Active confirmed Problem 25885592 Essential hypertension (I10) Active confirmed Problem 694419138 Lung nodule (R91.1) Active confirmed Problem 474556880 Esophageal dysmotility (K22.4) Active confirmed Problem 128510688 History of kidne y stones (Z87.442) Active confirmed Problem 563672663 Cervical disc disease (M50.90) Active confirmed Problem 24023945 Sciatica of left side (M54.32) Active confirmed Problem 540477670 Neutropenia, unspecified type (D70.9) Active confirmed Problem 80782242 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) Active confirmed Problem 17825144 Sciatica of righ t side (M54.31) Active confirmed Problem 35643506 Elevated cholesterol (E78.00) Active confirmed Problem 628189126 Esophageal spasm (K22.4) Active confirmed Problem 78441970766841 Adnexal cyst (N94.9) Active confirmed Problem 210434190 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) Active confirmed Problem 11022771 Achalasia (K22.0) Active confirmed Problem 35768612 Paresthesia (R20.2) Active confirmed Problem 783096826501229 Atherosclerosis of both carotid arteries (I65.23) Active confirmed Problem 799687844 Abnormal mammogr am of both breasts (R92.8) Active confirmed Problem 220534726 Esophageal dysfunction (K22.4) Active confirmed Problem 026561592 Tingling of righ t upper extremity (R20.2) Active confirmed Problem 786421883 Gastroesophageal reflux disease with esophagitis without hemorrhage (K21.00) Active confirmed Problem 215441037 Porokeratosis (Q82.8) Active confirmed Problem 311149441 Hepatic granulom a (K75.3) Active confirmed Problem 330696605 Mild carotid art silva disease (I77.9) Active [...] Alton Durham MD [address] [place] [id number] 01/13/2024 Alton Durham Hypokalemia E87.6 Alton Durham MD [address] [place] [address] [id number] 02/03/2024 Alton Durham Hx of hypokalemia Z86.39 Alton Durham MD [address] [place] [id number] 03/07/2024 Alton Durham Blood tests for rout ine general physical examination Z00.00 ; Neutropenia D70.9 ; Elevated cholesterol E78.00 and Essential hypertension I10 Alton Durham MD [address] [place] [address] [id number] 04/04/2024 Alton Durham Neutropenia D70.9 Alton Durham MD [address] [place] [address] [id number] 05/09/2024 Alton Durham Gastroesophageal ref lux disease with esophagitis without hemorrhage K21.00 Alton Durham MD [address] [place] [address] [id number] 05/19/2024 Alton Durham Status post fall Z91 .81 ; Mild carotid artery disease I77.9 and Hypokalemia E87.6 Alton Durham MD [address] [place] [address] [id number] 08/31/2024 Alton Durham Elevated cholesterol E78.00 ; AA (alcohol abuse) 305.00 and Hypokalemia E87.6 Alton Durham MD [address] [place] [address] [id number] 03/14/2024 Alton Durham Neutropenia D70.9 ; Elevated cholesterol E78.00 ; Thyroid nodule E04.1 ; Esophageal dysfunction K22.4 ; Hypokalemia E87.6 ; Essential hypertension I10 ; Colon cancer screening Z12.11 and Depression screening Z13.31 Alton Durham MD [address] [place] [id number] 04/14/2024 Alton Durham Neutropenia D70.9 an d Gastroesophageal reflux disease with esophagitis without hemorrhage K21.00 Alton Durham MD [address] [place] [address] [id number] 07/11/2024 Alton Durham Elevated LFTs R79.89 ; Elevated cholesterol E78.00 and Atherosclerosis of both carotid arteries I65.23 Alton Durham MD [address] [place] [address] [id number] 09/05/2024 Alton Durham Neutropenia D70.9 ; Esophageal dysmotility K22.4 ; Elevated cholesterol E78.00 ; Mild carotid artery disease I77.9 and Nontoxic single thyroid nodule E04.1 Alton Durham MD [address] [place] [address] [id number] 01/25/2024 Alton Durham MD [address] [place] [address] [id number] 05/18/2024 Alton Durham Bilateral carotid artery disease I77.9 Alton Durham MD [address] [place] [address] [id number] 05/22/2024 Alton Durham MD [address] [place] [address] [id number] 06/09/2024 Alton Durham MD [address] [place] [address] [id number] 06/27/2024 Alton Durham MD [address] [place] [address] [id number] 07/13/2024 Alton Durham MD [address] [place] [address] [id number] 08/08/2024 Alton Durham Atherosclerosis of b oth carotid arteries I65.23 Alton Durham MD [address] [place] [address] [id number] 08/11/2024 Alton Durham Thyroid nodule E04.1 Alton Durham MD [address] [place] [address] [id number] 01/04/2025 Alton Durham Calculus of kidney N20.0 [...] LFTs (ICD-10 - R79.89) contact Carmen at [facility] to discuss/ is most likely related [...] Name:Alton wick, 03/09/2025 07:45:00 AM, [address], [address], [place], [place], [phone], Provider Name:Alton Joiner ier, 03/16/2025 08:00:00 AM, [address], [address], [place], [id number], Insurance Providers Payer Name Payer Address Payer Phone Subscriber Number Group Number Insured Name Patient Relationship to Insured Coverage Start Date Coverage End Date MEDICARE NHIC [place] [place] [address] [id number] Maureen Foreman Self - patient is the insured [facility] [address] [place] [phone] [id number] Maureen Foreman Self - patient is [...]
== END 2025-01-11 10:40 | disposition home or self-care (01) ==
LOC: HO.ENCR 09:47
PROVIDERS: PCP Internal Medicine; Visit Provider Dietitian, Registered
DX: R63.4 Abnormal weight loss (principal)

== ENCOUNTER 2025-01-11 11:13 | Outpatient (AMB) | payer MEDICARE, OTHER, SELFPAY ==
--- NOTE | 2025-01-11 11:16 | A.OFFVIS_ITS ---
Vital Signs 01/11/25 11:17 Height 5 ft 8 in Weight 123 lb BMI 18.7 BP 140/70 H Blood Pressure Location Rt brachial Position Sitting Pulse 74 Pulse Source Pulse Oximeter Pulse Oximetry (%) 98 Oxygen Delivery Method Room Air Intake Visit Reasons: GERD + weight mgmt. Intake Note: ESTABLISHED PATIENT for GERD + weight mgmt. Chief Complaint; Pt denies any GI changes or new sx since last visit. Assistant Clinical Nurse Manager Required: No Accompanied by: Self / Same As Patient Allergies cephalexin (From KEFLEX) Allergy (Severe, Verified 01/11/25 11:16) RASH Sulfa (Sulfonamide Antibiotics) (SULFA (SULFONAMIDE ANTIBIOTICS)) Allergy (Severe, Verified 01/11/25 11:16) INTSERNAL AND EXTERNAL RASH/INFECTION Iodinated Contrast Media (IV Dye, Iodine Containing) Allergy (Intermediate, Verified 01/11/25 11:16) HIVES,REDNESS + SWELLING sulfamethoxazole (From BACTRIM) Allergy (Intermediate, Verified 01/11/25 11:16) INTERNAL AND EXTERNAL RASH/ INFECTION HPI HPI GERD + weight mgmt.: Details: LAST VISIT Erosive esophagitis Epigastric pain Gastroesophageal reflux disease Belching Plan Patient will continue Nexium. She is doing well and we will wait on holding off before sending her for H pylori testing. Belching with certain food still continues. Patient is unable to clearly diet just certain food mostly carbohydrates. High tissue maltase and sucrase levels. Patient will start digestive enzymes and try to avoid carbohydrates. Patient will eat more protein, protein levels low. We talked about not just drinking protein shakes but eating more protein me a like peanut butter, meat, eggs. Patient will follow-up in 4-5 weeks, sooner on as needed basis. He is agreeable to this plan and verbalizes understanding of instructions. She was given the opportunity to ask questions and all questions answered. ? Thank you for allowing me to participate in her care New wejrko-tfrzmbcb-wlkfyxh 24,000-76,000 -120,000 unit (Creon) administer with meals and/or snacks 1 cap PO QID 120 caps 3RF K86.89 TODAY'S VISIT: Patient is here today for follow-up. Patient reports that she has been doing better. Patient is taking Nexium twice a day and sucralfate at bedtime. Occasionally patient take sucralfate twice a day. Reports less belching. Maybe once a week for part of the day. Patient denies dyspepsia, dysphagia or odynophagia. Denies any acid reflux. Reports that she is moving her bowels daily or every other day. Patient denies melena, hematochezia, unintentional weight loss or ribbon like stools. Patient is gaining weight. Is eating more food. Still sees dietitian. Patient purchased ibet-luu-gukibll digestive enzymes and started taking them couple days ago. Patient reports less bloating. COUNT INCLUDES [facility] Medical History Transaminitis Chronic leukopenia Erosive esophagitis Kidney stone GERD (gastroesophageal reflux disease) High cholesterol HTN (hypertension) Surgical History H/O lithotripsy H/O esophagogastroduodenoscopy (07/09/23) Social History Alcohol intake: never Patient Tobacco Use Status: Never used Tobacco Advance Directives Date on File: 09/22/23 service: No Current occupational status: retired Current occupational exposures/hazards: No Review of Systems Const Denies weight gain and Denies weight loss ENT Reports no additional complaints, Denies dysphagia and Denies odynophagia Card Reports no additional complaints Resp Reports no additional complaints GI Denies abdominal pain, Reports belching (Occasional), Denies melena, Reports bloating, Denies change in bowel habits, Denies dysphagia, Denies excessive flatus, Denies dyspepsia, Denies heartburn, Denies diarrhea, Denies loose stools, Denies nausea, Denies odynophagia and Denies vomiting Reports no additional complaints Musc Reports no additional complaints Neuro Reports no additional complaints Psych Reports no additional complaints Endo Reports no additional complaints Physical Exam Vital Signs: Last Vital Signs Pulse 74 01/11/25 11:17 BP 140/70 H 01/11/25 11:17 Pulse Ox 98 01/11/25 11:17 Oxygen Delivery Method Room Air 01/11/25 11:17 BMI result Body Mass Index 18.7 Const General: no acute distress Orientation/consciousness: patient oriented x3 Resp Effort & Inspection: normal respiratory effort, able to speak in complete sentences, no tracheal deviation and symmetric chest movement Auscultation: clear to auscultation bilaterally Cardio Rate: regular rate GI Inspection: Yes normal to inspection and No distended Palpation (GI): Soft to palpation, not firm, nontender and No hepatosplenomegaly present Auscultation: normal bowel sounds General: Yes no CVA tenderness Back/Spine/Pelvis Back: no CVA tenderness Skin General skin exam: elasticity normal, turgor normal and dry skin Neuro General: patient oriented x3 Psych Appearance: grossly normal Mental Status: mental status grossly normal Assessment & Plan Assessment & Plan (1) Transaminitis: Code(s): R74.01 - Elevation of levels of liver transaminase levels Category: Medical (2) Epigastric pain: Code(s): R10.13 - Epigastric pain Category: Medical (3) Gastroesophageal reflux disease: Code(s): K21.9 - Gastro-esophageal reflux disease without esophagitis Qualifiers: Esophagitis presence: esophagitis presence not specified Qualified Code(s): K21.9 - Gastro-esophageal reflux disease without esophagitis (4) Burping: Code(s): R14.2 - Eructation Plan Patient will continue current PPI therapy. Continue sucralfate as needed. Con tinue avoiding dietary triggers only a snacking staying upright for minimal 3 hours after meals discussed with patient. Will repeat liver enzymes is. Patient is taking 20 mg of rosuvastatin now. Patient was encouraged to take senna every other day. Continue follow-up visits with diet patient. Follow-up in 2 months, sooner on as needed basis. She is agreeable to this plan and verbalizes understanding of instructions. She was given the opportunity to ask questions and all questions answered. Thank you for allowing me to participate in her care Orders: Orders Liver Panel Today R74.01 - Elevation of levels of liver transaminase levels Medications: New sennosides (Natural Senna Laxative) 8.6 mg PO BEDTIME PRN 90 tabs 0RF constipation Coding Level of Care Code Est Pt Level 4 (90318) Complex EM visit Add On G2211 Diagnoses Transaminitis R74.01 Epigastric pain R10.13 Gastroesophageal reflux disease, unspecified whether esophagitis present K21.9 Esophagitis presence: esophagitis presence not specified Burping R14.2 Time Spent (min) 35 Comment 25 minutes spent with patient and additional 10 minutes spent reviewing her records
[2025-01-11 11:17] VITALS: BP 140/70; PULSE 74; O2SAT 98; BMI 18.7
== END 2025-01-11 11:47 | disposition home or self-care (01) ==
LOC: HO.HGI 11:14
PROVIDERS: PCP Internal Medicine; Visit Provider Nurse Practitioner Family
DX: R74.01 Elevation of levels of liver transaminase levels (principal); R10.13 Epigastric pain; K21.9 Gastro-esophageal reflux disease without esophagitis; R14.2 Eructation
CPT/HCPCS: 99214; G2211

== ENCOUNTER 2025-03-09 12:46 | Outpatient (REF) | payer MEDICARE, OTHER, SELFPAY ==
--- OUTSIDE RECORDS SUMMARY | 2023-09-16 09:35 | XMS_ITS ---
Author Organization [facility] Address [address] [place] [id number] Care Team Providers Care Online Communications Specialist Name Role Phone Marva GUILLAUME, Alton Primary Care Provider Bean Cortes Jr [phone] REASON FOR VISIT BELCHING Encounters Encounter Location Date Provider Diagnosis [facility] [address] [place] [address] 09/16/2023 Bean Holley Jr Plan Of Treatment No Information Progress Notes * ABEL WHITEANCEDOB:[birth year] (84 yo F)Acc No.[id number]:09/16/2023 Progress Notes Patient: ARINA LEIVA Provider: Glenn Holley MD :1940 A ge:83 Y S ex:Female Date:09/16/2023 Address:[address] [place], [place] [id number] Pcp:Alton Durham MD Subjective: * Chief Complaints: * 1 . BELCHING. * Medical History: Objective: * Vitals: Assessment: Plan: * Treatment: * * The named appointment provid er may or may not be the originator of this progress note, and it is not deemed complete until electronically signed by the appointment provider. Sign off status: Pending * Provider: Glenn Holley MD Date: 0 09/16/2023 Generated for Nando baldwin/Douglas/Stormyitting on: 05/09/2024 02:54 PM EST
--- OUTSIDE RECORDS SUMMARY | 2024-06-16 03:45 | XMS_ITS ---
Author Organization Alton Durham MD Address [address] [place] [phone] Care Team Providers Care Security Rep Name Role Phone Alton Durham Primary Care Provider REASON FOR VISIT potassium Encounters Encounter Location Date Provider Diagnosis Alton Durham MD [address] [place] [phone] 06/16/2024 Alton Durham Hypokalemia E87.6 Assessments Encounter Date Diagnosis (ICD Code) Assessment Notes Treatment Notes Treatment Clinical Notes Section Notes 06/16/2024 Hypokalemia (ICD-10 - E87.6) Plan Of Treatment Pending Test Test Name Order Date Potassium 06/16/2024 Next Appt Details Provider Name:Alton wick, 03/16/2025 08:00:00 AM, [address], [address], [place], [place], [id number], Progress Notes * Maureen WHITE JDOB: (84 yo F)Acc No.[id number]:06/16/2024 Progress Note Patient: Maureen LEIVA Provider: France Durham MD :1940 A ge:84 Y S ex:Female Date:06/16/2024 Address:[address] [place], [place] [phone] Subjective: * Chief Complaints: * 1 . Potassium. * Medical History: Objective: * Vitals: Assessment: * Assessment: 1. H ypokalemia - E87.6 Plan: * Treatment: * * The named appointment provid er may or may not be the originator of this progress note, and it is not deemed complete until electronically signed by the appointment provider. Sign off status: Pending * Provider: France Durham MD Date: 0 06/16/2024 Generated for Nando baldwin/Douglas/Stormyitting on: 1 05/09/2024 02:54 PM EST
--- OUTSIDE RECORDS SUMMARY | 2024-06-27 08:48 | XMS_ITS ---
Author Organization Alton Durham MD Address [address] [place] [phone] Care Team Providers Care Hair Spinning Machine Operator Name Role Phone Alton Durham Primary Care Provider REASON FOR VISIT Thyroid US due Encounters Encounter Location Date Provider Diagnosis Alton Durham MD [address] [facility] [address] [place] [address] [phone] 06/27/2024 Alton Durham Plan Of Treatment Next Appt Details Provider Name:Alton Joiner ier, 03/16/2025 08:00:00 AM, [address], Suite [facility], [place], [place], [phone], Progress Notes * Maureen WHITE JDOB: (84 yo F)Acc No.[id number]:06/27/2024 Patient: Kena Maureen JUAREZ :1940 A ge:84 Y S ex:Female Address:[address] [place] [id number] * true * Date: Generated for Nando baldwin/Douglas/Mary Ellen on: 05/09/2024 02:53 PM EST
--- OUTSIDE RECORDS SUMMARY | 2024-07-11 03:30 | XMS_ITS ---
Author Organization Alton Durham MD Address [address] [place] [phone] Care Team Providers Care Internet Sales Manager Name Role Phone Alton Durham Primary Care [...] Date Provider Diagnosis Alton Durham MD [address] [place], [place] [phone] 07/11/2024 Alton Durham Elevated LFTs R79.89 ; Elevated cholesterol E78.00 and Atherosclerosis of both carotid arteries I65.23 Assessments Encounter Date Diagnosis (ICD Code) Assessment Notes Treatment Notes Treatment Clinical Notes Section Notes 07/11/2024 Elevated LFTs (ICD-10 - R79.89) contact Carmen at [facility] to discuss/ is most likely related [...] Assessment Notes Elevated LFTs contact Carmen at [facility] to discuss/ is most likely related to the statin. could stop it and see if it returns to normal but don't think that is necessary Elevated cholesterol is not at goal but with elevated lft's will leave on present Atherosclerosis of both carotid arteries no change in 5 years Next Appt Details Provider Name:Alton wick, 03/16/2025 08:00:00 AM, [address], [address], [place], [place], [phone], Progress Notes * Maureen WHITE JDOB: (84 yo F)Acc No.[id number]:07/11/2024 Progress Notes Patient: Maureen LEIVA Provider: France Durham MD :1940 A ge:84 Y S ex:Female Date:07/11/2024 Address:[address] [place] [address] [id number] Subjective: * Chief Complaints: * 1 month [...] with the patient * Allergies: i vp cardiovascular dye: rashBactrim: hives over entire bodyKeflex: rashCipro: [...] MD Date: 0 07/11/2024 Generated for Nando baldwin/Douglas/Stormyitting on: 1 05/09/2024 02:52 PM EST History and Physical Notes * HPI [...]
--- OUTSIDE RECORDS SUMMARY | 2024-07-13 03:10 | XMS_ITS ---
Author Organization Alton Durham MD Address [address] [place] [phone] Care Team Providers Care Extractor And Wringer Operator Name Role Phone JeimyAlton staley Primary Care Provider REASON FOR VISIT REGARDING STATIN Encounters Encounter Location Date Provider Diagnosis Alton Durham MD [address] [place] [phone] 07/13/2024 Alton Durham Plan Of Treatment Next Appt Details Provider Name:Alton Joiner ier, 03/16/2025 08:00:00 AM, [address], Suite [facility], [place], [place], [phone], Progress Notes * Maureen WHITE JDOB: (84 yo F)Acc No.[id number]:07/13/2024 Patient: Kena Maureen JUAREZ :1940 A ge:84 Y S ex:Female Address:[address] [place] [address] [place] [address] * true * Date: Generated for Nando baldwin/Douglas/Mary Ellen on: 05/09/2024 02:53 PM EST
--- OUTSIDE RECORDS SUMMARY | 2024-08-08 08:12 | XMS_ITS ---
Author Organization Alton Durham MD Address [address] [place] [phone] Care Team Providers Care Tag Machine Operator Name Role Phone Marva Alton Primary Care Provider REASON FOR VISIT refill Medications Medication SIG (Take, Route, Frequency, Duration) Notes Start Date End Date Status Rosuvastatin Calcium 20 MG take 1 tablet by mouth every day Orally Once a day for 90 days Active Encounters Encounter Location Date Provider Diagnosis Alton Durham MD [address] [place] [phone] 08/08/2024 Alton Durham Atherosclerosis of b oth [...] days Next Appt Details Provider Name:Alton wick, 03/16/2025 08:00:00 AM, [address], [address], [place], [place], [phone], Progress Notes * Maureen WHITE JDOB: (84 yo F)Acc No.[id number]:08/08/2024 Patient: Maureen LEIVA :1940 A ge:84 Y S ex:Female Address:[address] [place] [address] * Refills Refill Rosuvastatin Calcium Tablet, 20 MG, Orally, 90, take 1 tablet by mouth every day, Once a day, 90 days, Refills=3 * true * Date: Generated for Nando baldwin/Douglas/Stormyitting on: 05/09/2024 02:53 PM EST
--- OUTSIDE RECORDS SUMMARY | 2024-08-11 04:44 | XMS_ITS ---
Author Organization Alton Durham MD Address [address] [place] [phone] Care Team Providers Care Power Generation Technician Name Role Zahra JeimyAlton staley Primary Care Provider REASON FOR VISIT Thyroid US due Encounters Encounter Location Date Provider Diagnosis Alton Durham MD [address] [facility] [place] [phone] 08/11/2024 Alton Durham Thyroid nodule E04.1 Assessments [...] 08/11/2024 Next Appt Details Provider Name:Alton wick, 03/16/2025 08:00:00 AM, [address], [address], [place], [place], [phone], Progress Notes * Maureen WHITE JDOB: (84 yo F)Acc No.[id number]:08/11/2024 Patient: Maureen LEIVA :1940 A ge:84 Y S ex:Female Address:[address] [place] [address] Subjective: * Chief Complaints: * T hyroid US due * Medical History: * Surgical History: * Hospitalization/Major Diagno stic Procedure: * Medications: Objective: * Vitals: * Physical Examination: Assessment: * Assessment: 1. T hyroid nodule - E04.1 Plan: * Treatment: * Procedure Codes: * true * Date: Generated for Nando baldwin/Douglas/eTransmitting on: 05/09/2024 02:52 PM EST
--- OUTSIDE RECORDS SUMMARY | 2024-08-31 02:00 | XMS_ITS ---
Author Organization Alton Durham MD Address [address] [place], [place] [phone] Care Team Providers Care Foil Cutter Name Role Phone Alton Durham Primary Care Provider Results Component Value Reference Range Notes Liver Panel Reviewed date:08/31/2024 05:02:52 PM Interpretation: Performing Lab:[facility], [address] [place] [phone] Notes/Report: Bilirubin Total 0.7 0.0-1.0 mg/dL Bilirubin Direct 0.3 0.0-0.5 mg/dL Aspartate Amino Transferase 34 5-31 U/L Alanine Aminotransferase 27 0-31 U/L Total Protein 6.4 6.5-8.0 g/dL Albumin Level 4.0 3.5-5.0 g/dL Alkaline Phosphatase 89 39-117 U/L Potassium Reviewed date:08/31/2024 05:00:46 PM Interpretation: Performing Lab:[facility], [address] [place] [phone] Notes/Report: Potassium 3.8 3.3-5.1 mmol/L Lipid Panel with Reflex Reviewed date:08/31/2024 05:02:44 PM Interpretation: Performing Lab:[facility], [address] [facility], [place] [address] Notes/Report: Triglycerides 32 <150 mg/dL Desirable Triglyceride: [...] Date Provider Diagnosis Alton Durham MD [address] [place], [place] [phone] 08/31/2024 Alton Durham Elevated cholesterol E78.00 ; AA (alcohol abuse) 305.00 and Hypokalemia E87.6 Assessments Encounter Date Diagnosis (ICD Code) Assessment Notes Treatment Notes Treatment Clinical Notes Section Notes 08/31/2024 Elevated cholesterol (ICD-10 - E78.00) 08/31/2024 AA (alcohol abuse) (ICD9-CM - 305.00) 08/31/2024 Hypokalemia (ICD-10 - E87.6) Plan Of Treatment Next Appt Details Provider Name:Alton Joiner ier, 03/16/2025 08:00:00 AM, [address] [place] [address] Drive, [address], [place], [place], [phone], Progress Notes * aMureen WHITE JDOB: (84 yo F)Acc No.[id number]:08/31/2024 Progress Note Patient: Kena LUCIANOMaureen VASQUEZ Francisco Javier Provider: France Durham MD :1940 A ge:84 Y S ex:Female Date:08/31/2024 Address:[address] [place] [address] [id number] Subjective: * Chief Complaints: * 1 . [...] MD Date: 0 08/31/2024 Generated for Nando baldwin/Douglas/Mary Ellen on: 05/09/2024 02:54 PM EST
--- OUTSIDE RECORDS SUMMARY | 2024-09-05 03:45 | XMS_ITS ---
Author Organization Alton Durham MD Address [address] [place] [phone] Care Team Providers Care Supervisor Cabinetmaker Name Role Phone Alton Durham Primary Care [...] Location Date Provider Diagnosis Alton Durham MD [address] [place] [address] [address] [place], [place] [phone] 09/05/2024 Alton Durham Neutropenia D70.9 ; Esophageal [...] thyroid 09/05/2025 Next Appt Details Provider Name:Alton Juan Pablo Marisel ier, 03/16/2025 08:00:00 AM, [address] [place] [address], [address], [place], [place], [phone], Progress Notes * Maureen WHITE JDOB: (84 yo F)Acc No.[id number]:09/05/2024 Progress Notes Patient: Maureen LEIVA Provider: France Durham MD :1940 A ge:84 Y S ex:Female Date:09/05/2024 Address:[address] [place] [address] [id number] Subjective: * Chief Complaints: * 6 month [...] reconciled with the patient * Allergies: 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
--- OUTSIDE RECORDS SUMMARY | 2025-01-04 08:53 | XMS_ITS ---
Author Organization Alton Durham MD Address [address] [place] [phone] Care Team Providers Care Chief Resource Officer Name Role Phone Alton Durham Primary Care Provider REASON FOR VISIT us renal arlene orders Encounters Encounter Location Date Provider Diagnosis Alton Durham MD [address] [place] [id number] 01/04/2025 Alton Durham Calculus of kidney N20.0 Assessments Encounter Date Diagnosis (ICD Code) Assessment Notes Treatment Notes Treatment Clinical Notes Section Notes 01/04/2025 Calculus of kidney (ICD-10 - N20.0) Plan Of Treatment Future Test Test Name Order Date US RENAL BILATERAL 01/04/2026 Next Appt Details Provider Name:Alton wick, 03/16/2025 08:00:00 AM, [address], Suite [facility], [place], [place], [phone], Progress Notes * Maureen WHITE JDOB: (84 yo F)Acc No.[id number]:01/04/2025 Patient: Maureen LEIVA :1940 A ge:84 Y S ex:Female Address:[address] [place] [id number] Subjective: * Chief Complaints: * U s [...]
--- OUTSIDE RECORDS SUMMARY | 2025-03-09 02:45 | XMS_ITS ---
Author Organization Alton Durham MD Address [address] [place], [place] [phone] Care Team Providers Care Juice Standardizer Name Role Phone MarvaAlton Primary Care Provider Results Component Value Reference Range Notes Complete Blood Count Auto Di ff (Not yet reviewed by provider) Interpretation: Performing Lab:[facility], [address] [place] [phone] Notes/Report: White Blood Count 3.3 4.8-10.8 X10*3/uL [...] NRBC Abs Auto 0.000 0.0-0.012 X10*3/uL Comprehensive [place]. Panel Fa st (Not yet reviewed by provider) Interpretation: Performing Lab:[facility], [address] [place] [phone] Notes/Report: Sodium 143 135-145 mmol/L Potassium 3.7 [...] Alkaline Phosphatase 88 39-117 U/L Lipid Panel (Not yet reviewe d by provider) Interpretation: Performing Lab:[facility], [address] [place] [phone] Notes/Report: Triglycerides 30 <150 mg/dL Desirable Triglyceride: [...] liver disease. UA ClnCatch+Micro w/rflx Cul t (Not yet reviewed by provider) Interpretation: Performing Lab:[facility], [address] [place] [phone] Notes/Report: Urine, Clean Catch Color Urine Yellow Appearance Urine Clear PH 5.5 5.0-9.0 Glucose Urine UA Negative Negative mg/dL Urine Blood Negative Negative Specific [place] - Urine 1.020 1.005-1.025 Urine Protein 30 [...] Date Provider Diagnosis Alton Durham MD [address] [place], [place] [phone] 03/09/2025 Altno Durham Neutropenia D70.9 ; Elevated cholesterol E78.00 and Essential hypertension I10 Assessments Encounter Date Diagnosis (ICD Code) Assessment Notes Treatment Notes Treatment Clinical Notes Section Notes 03/09/2025 Neutropenia (ICD-10 - D70.9) 03/09/2025 Elevated cholesterol (ICD-10 - E78.00) 03/09/2025 Essential hypertension (ICD-10 - I10) Plan Of Treatment Pending Test Test Name Order Date Complete Blood Count Auto Diff 5 Comprehensive [place]. Panel Fast Lipid Panel 03/09/2025 UA ClnCatch+Micro w/rflx Cult 03/09/2025 Next Appt Details Provider Name:Alton Joiner ier, 03/16/2025 08:00:00 AM, [address] [place] [address], [address], [place], [place], [phone], Progress Notes * Maureen WHITE JDOB: (84 yo F)Acc No.[id number]:03/09/2025 Progress Note Patient: Maureen LEIVA Provider: France Durham MD :1940 A ge:84 Y S ex:Female Date:03/09/2025 Address:[address] [place], [place] [phone] Subjective: * Chief Complaints: * 1 . [...] - 03/09/2025 07:45 AM) L AB: Comprehensive [place]. Panel Fast (Collection Date & Time - 03/09/2025 07:45 AM) L AB: Lipid Panel (Collection Date & Time - 03/09/2025 07:45 AM) L AB: UA ClnCatch+Micro w/rflx Cult (Collection Date & Time - 03/09/2025 07:45 AM) 3. E ssential hypertension L AB: Complete Blood Count Auto Diff (Collection Date & Time - 03/09/2025 07:45 AM) L AB: Comprehensive [place]. Panel Fast (Collection Date & Time - [...] Date: 05/09/2024 Generated for Nando baldwin/Douglas/Stormyitting on: 05/09/2024 02:54 PM EST
[2025-03-09 12:50] LABS: MANUAL DIFF FLAG NO
[2025-03-09 13:10] LABS: Hematocrit 43.4 % (37.0-47.0); Hemoglobin 13.8 g/dl (12.0-16.0); Imm Gran Abs Auto 0.00 X10*3/uL (0.00-0.03); Imm Gran Pct Auto 0.0 % (0.0-0.4); Lymphocytes Absolute Auto 0.7 X10*3/uL (1.2-4.9); Mean Corpuscular HGB Conc 31.8 g/dl (31.0-35.0); Mean Corpuscular Hemoglobin 29.7 pg (27.0-33.0); Mean Corpuscular Volume 93.5 fL (80.0-98.0); NRBC Abs Auto 0.000 X10*3/uL (0.0-0.012); NRBC Pct Auto 0.0 /100WBC (0.0-0.2); Platelet Count 165 X10*3/uL (160-400); Red Blood Count 4.64 X10*6/uL (4.20-5.50); White Blood Count 3.3 X10*3/uL (4.8-10.8)
[2025-03-09 13:11] LABS: Appearance Urine Clear; Glucose Urine UA Negative (Negative); PH 5.5 (5.0-9.0); Specific Gravity - Urine 1.020 (1.005-1.025); UMIC TRIGGER UACC YES
[2025-03-09 13:38] LABS: Alanine Aminotransferase 24 U/L (0-31); Albumin Level 4.1 g/dL (3.5-5.0); Alkaline Phosphatase 88 U/L (39-117); Anion Gap 10 (12-20); Aspartate Amino Transferase 34 U/L (5-31); Blood Urea Nitrogen 21 mg/dL (9-16); Calcium 9.1 mg/dL (8.4-10.2); Carbon Dioxide 28 mmol/L (22-29); Chloride 109 mmol/L (96-108); Cholesterol 168 mg/dL (<200); Estimated Glomerular Filt Rate > 60; HDL Cholesterol 84 mg/dL (>40); Potassium 3.7 mmol/L (3.3-5.1); Sodium 143 mmol/L (135-145); Total Protein 6.3 g/dL (6.5-8.0); Triglycerides 30 mg/dL (<150)
--- OUTSIDE RECORDS SUMMARY | 2025-03-09 14:54 | XMS_ITS | Patient Health Record ---
Author Organization Alton Durham MD Address [address] [place] [phone] Care Team Providers Care Side Trimmer Name Role Phone Alton Durham Primary Care [...] ff Reviewed date:04/04/2024 12:44:09 PM Interpretation: Performing Lab:[facility], [address] [place] [phone] Notes/Report: White Blood Count 2.7 4.8-10.8 X10*3/uL [...] Potassium Reviewed date:04/04/2024 12:47:19 PM Interpretation: Performing Lab:[address] [address] Notes/Report: Potassium 3.9 3.3-5.1 mmol/L Complete Blood Count Auto Di ff Reviewed date:05/09/2024 12:31:03 PM Interpretation: Performing Lab:[address] [address] Notes/Report: White Blood Count 2.8 4.8-10.8 X10*3/uL [...] Potassium Reviewed date:05/09/2024 12:25:38 PM Interpretation: Performing Lab:[facility], [address] [place] [phone] Notes/Report: Potassium 3.9 3.3-5.1 mmol/L Liver Panel Reviewed date:08/31/2024 05:02:52 PM Interpretation: Performing Lab:[facility], [address] [place] [phone] Notes/Report: Bilirubin Total 0.7 0.0-1.0 mg/dL Bilirubin Direct 0.3 0.0-0.5 mg/dL Aspartate Amino Transferase 34 5-31 U/L Alanine Aminotransferase 27 0-31 U/L Total Protein 6.4 6.5-8.0 g/dL Albumin Level 4.0 3.5-5.0 g/dL Alkaline Phosphatase 89 39-117 U/L Potassium Reviewed date:08/31/2024 05:00:46 PM Interpretation: Performing Lab:[facility], [address] [place] [phone] Notes/Report: Potassium 3.8 3.3-5.1 mmol/L Lipid Panel with Reflex Reviewed date:08/31/2024 05:02:44 PM Interpretation: Performing Lab:[facility], [address] [place] [phone] Notes/Report: Triglycerides 32 <150 mg/dL Desirable Triglyceride: [...] low results in patients with liver disease. Complete Blood Count Auto Di ff (Not yet reviewed by provider) Interpretation: Performing Lab:[facility], [address] [place] [phone] Notes/Report: White Blood Count 3.3 4.8-10.8 X10*3/uL [...] 2.0 2.0-8.3 x10*3/uL Imm Gran Abs Auto 0.00 0.00-0.03 X10*3/uL Lymphocytes Absolute Auto 0.7 1.2-4.9 X10*3/uL Monocytes Absolute Auto 0.5 0.1-1.2 X10*3/uL Eosinophils Absolute Auto 0.1 0.0-0.4 X10*3/uL Basophils Absolute Auto 0.0 0.0-0.2 X10*3/uL NRBC Abs Auto 0.000 0.0-0.012 X10*3/uL Comprehensive [place]. Panel Fa (Not yet reviewed by provider) Interpretation: Performing Lab:[address] [address] Notes/Report: Sodium 143 135-145 mmol/L Potassium 3.7 [...] yet reviewe d by provider) Interpretation: Performing Lab:[address] [address] Notes/Report: Triglycerides 30 <150 mg/dL Desirable Triglyceride: [...] (Not yet reviewed by provider) Interpretation: Performing Lab:[facility], [address] [place] [phone] Notes/Report: Urine, Clean Catch Color Urine Yellow Appearance Urine Clear PH 5.5 5.0-9.0 Glucose Urine UA Negative Negative mg/dL Urine Blood Negative Negative Specific [place] - Urine 1.020 1.005-1.025 Urine Protein 30 [...] date:04/17/2024 12:23:13 PM Interpretation: Performing Lab: Notes/Report: [address] [address] XRay Report Signed Patient: Maureen Foreman MR#: [id number] : 1940 Acct:[id number] Age/Sex: 83 / F ADM Date: 03/29/24 Loc: CONCHA Attending Dr: Julee ANAYA Ordering Physician: Julee Asher Date of Service: 03/29/24 Procedure(s): XR soft tissue neck Accession Number(s): [id number] cc: Alton Durham MD; Julee Asher EXAMINATION: XR SOFT TISSUE NECK CLINICAL INDICATION: K22.2 - Esophageal obstruction COMPARISON: CT soft tissue neck 06/19/2023. Ultrasound of the thyroid 07/13/2023. TECHNIQUE: 2 views of the soft tissue neck were obtained. Exam submitted for review 04/17/2024 8:16 AM POUND KEEPER. FINDINGS: Soft tissue films of the neck [...] by: Roberto Huffman MD 04/17/2024 09:19 AM [facility] Dictated By: Roberto Huffman MD Signed By: <Electronically signed by Roberto Huffman MD in OV> 04/17/24 0919 DD/ 1502 TD/TT: 03/29/24 1510 Shot Coat Tender: [address] [address] XRay Report Signed Patient: Maureen Foreman MR#: [id number] : 1940 Acct:[id number] Age/Sex: 83 / F ADM Date: 03/29/24 Loc: CONCHA Attending Dr: Julee ANAYA Ordering Physician: Julee Asher Date of Service: 03/29/24 Procedure(s): XR sof t tissue neck Accession Number(s): [id number] cc: Alton Durham MD; Julee Asher FINANCIAL SERVICES REPRESENTATIVE- EXAMINATION: XR SOFT TISSUE NECK CLINICAL INDICATION: K22.2 - Esophageal obstruction COMPARISON: CT soft tissue neck 06/19/2023. Ultrasound of the th yroid 07/13/2023. TECHNIQUE: 2 views of the soft tissue neck were obtained. Exam submitted for r eview 04/17/2024 8:16 AM POUND KEEPER. FINDINGS: Soft tissue films of the neck [...] by Roberto Huffman MD in OV> 04/17/24 09 DD/ 1502 TD/TT: 03/29/24 1510 Shot Coat Tender: MM tomosynthesis screening B I Reviewed date:05/05/2024 04:58:08 PM Interpretation: Performing Lab: Notes/Report: [facility] [address] [place] [address] Mammography Report Signed Patient: Maureen Foreman MR#: [id number] : 1940 Acct:[id number] Age/Sex: 83 / F ADM Date: 04/24/24 Loc: JAYCOB Attending Dr: Alton Durham MD Ordering Physician: Alton Durham MD Results: 1Ne gative Date of Service: 04/24/24 Follow Up: 1 Year From Orig inal Mammogram Procedure(s): MM tomosynthesis screening BI Accession Number(s): [id number] cc: Alton Durham MD EXAMINATION: MM SCREENING [...] by: Judy Bravo DO 05/05/2024 04:28 PM [facility] Dictated By: Judy Bravo DO Signed By: <Electronically signed by Judy Bravo DO in OV> 05/05/24 1628 DD/ 0800 TD/TT: 04/24/24 0821 Shot Coat Tender: [facility] [address] [place] [address] [place] [address] Mammography Report Signed Patient: Maureen Foreman MR#: [id number] : 1940 Acct:[id number] Age/Sex: 83 / F ADM Date: 04/24/24 Loc: HO.MAMMO Attending Dr: Alton Durham MD Ordering Physician: Alton Durham MD Results: 1Ne gative Date of Service: Follow Up: 1 Year From Orig inal Mammogram Procedure(s): MM tomosynthesis screening BI Accession Number(s): [id number] cc: Alton Durham MD EXAMINATION: MM SCREENING [...] by: Judy Bravo DO 05/05/2024 04:28 PM [facility] Dictated By: Judy Bravo DO Signed By: <Electronically signed by Judy Bravo DO in OV> 05/05/24 1628 DD/ 0800 TD/TT: 04/24/24 0821 Shot Coat Tender: Liver Panel Reviewed date:05/15/2024 02:16:26 PM Interpretation: Performing Lab:[facility], [address] [place] [phone] Notes/Report: Bilirubin Total 0.4 0.0-1.0 mg/dL Bilirubin Direct 0.1 0.0-0.5 mg/dL Aspartate Amino Transferase 32 5-31 U/L Alanine Aminotransferase 32 0-31 U/L Total Protein 6.8 6.5-8.0 g/dL Albumin Level 4.2 3.5-5.0 g/dL Alkaline Phosphatase 99 39-117 U/L CT cervical spine wo con Reviewed date:05/18/2024 01:47:30 PM Interpretation: Performing Lab: Notes/Report: [address] [address] [address] Scan Report Signed Patient: Maureen Foreman MR#: [id number] : 1940 Acct:[id number] Age/Sex: 83 / F ADM Date: 05/16/24 Loc: HO.ED Attending Dr: Ordering Physician: Segundo Montague Date of Service: 05/16/24 Procedure(s): CT cervical spine wo IV con Accession Number(s): [id number] cc: Segundo Montague; Alton Durham MD Report Number: [id number]: Total DLP = 214.00 mGy-cm EXAMINATION: CT [...] by: Wilberto Cardoso MD 05/16/2024 12:38 PM [facility] Dictated By: Wilberto Sanches MD Signed By: <Electronically signed by Wilberto Martel MD in OV> 05/16/24 1238 DD/ 1142 TD/TT: 05/16/24 1218 Shot Coat Tender: [address] [address] [address] Scan Report Signed Patient: Maureen Foreman MR#: [id number] : 1940 Acct:[id number] Age/Sex: 83 / F ADM Date: 05/16/24 Loc: HO.ED Attending Dr: Ordering Physician: Segundo oMntague Date of Service: 05/16/24 Procedure(s): CT cer vical spine wo IV con Accession Number(s): [id number] cc: Segundo Montague; Alton Durham MD Report [...] 05/16/24 1238 DD/ 1142 TD/TT: 05/16/24 1218 Shot Coat Tender: CT head/brain wo con Reviewed date:05/16/2024 04:41:18 PM Interpretation: Performing Lab: Notes/Report: [address] [address] [address] Scan Report Signed Patient: Maureen Foreman MR#: [id number] : 1940 Acct:[id number] Age/Sex: 83 / F ADM Date: 05/16/24 Loc: HO.ED Attending Dr: Ordering Physician: Generic ED Physician Date of Service: 05/16/24 Procedure(s): CT head/brain wo IV con Accession Number(s): [id number] cc: Alton Durham MD; Generic ED Physician Report Number: [id number]: Total DLP = 625.00 mGy-cm EXAMINATION: CT [...] by: Roberto Huffman MD 05/16/2024 12:52 PM [facility] Dictated By: Roberto Huffman MD Signed By: <Electronically signed by Roberto Huffman MD in OV> 05/16/24 1252 DD/ 1153 TD/TT: 05/16/24 1218 Shot Coat Tender: [address] [address] [address] Scan Report Signed Patient: Maureen Foreman MR#: [id number] : 1940 Acct:[id number] Age/Sex: 83 / F ADM Date: 05/16/24 Loc: HO.ED Attending Dr: Ordering Physician: Generic ED Physician Date of Service: 05/16/24 Procedure(s): CT head/brain wo IV con Accession Number(s): [id number] cc: Alton Durham MD; Generic ED Physician Report Number: [id number]: Total [...] by: Roberto Huffman MD 05/16/2024 12:52 PM EST Dictated By: Roberto Huffman MD Signed By: <Electronically signed by Roberto Huffman MD in OV> 05/16/24 1252 DD/ 1153 TD/TT: 05/16/24 1218 Shot Coat Tender: CT facial bones wo con Reviewed date:05/16/2024 04:42:06 PM Interpretation: Performing Lab: Notes/Report: [address] [address] [address] Scan Report Signed Patient: Maureen Foreman MR#: [id number] : 1940 Acct:[id number] Age/Sex: 83 / F ADM Date: 05/16/24 Loc: HO.ED Attending Dr: Ordering Physician: Segundo Montague Date of Service: 05/16/24 Procedure(s): CT facial bones wo IV con Accession Number(s): [id number] cc: Segundo Montague; Alton Durham MD Report Number: [id number]: Total DLP = 215.00 mGy-cm EXAMINATION: CT [...] by: Roberto Huffman MD 05/16/2024 12:52 PM [facility] Dictated By: Roberto Huffman MD Signed By: <Electronically signed by Roberto Huffman MD in OV> 05/16/24 1252 DD/ 1153 TD/TT: 05/16/24 1218 Shot Coat Tender: [address] [address] [address] Scan Report Signed Patient: Maureen Foreman MR#: [id number] : 1940 Acct:[id number] Age/Sex: 83 / F ADM Date: 05/16/24 Loc: HO.ED Attending Dr: Ordering Physician: Segundo Montague Date of Service: 05/16/24 Procedure(s): CT fac ial bones wo IV con Accession Number(s): [id number] cc: Segundo Montague; Alton Durham MD Report [...] fractures identified. 6. See the body of ariane frazier for additional ancillary findings. Electronically tammie d by: Roberto Huffman MD 05/16/2024 12:52 PM [facility] Dictated By: Roberto Huffman MD Signed By: <Electronically signed by Roberto Huffman MD in OV> 05/16/24 1252 DD/ 1153 TD/TT: 05/16/24 1218 Shot Coat Tender: Complete Blood Count Man Jose Reviewed date:06/02/2024 12:39:21 PM Interpretation: Performing Lab:[facility], [address] [place] [phone] Notes/Report: White Blood Count 3.4 4.8-10.8 X10*3/uL [...] te Reviewed date:06/02/2024 12:22:30 PM Interpretation: Performing Lab:[facility], [address] [place] [phone] Notes/Report: Erythrocyte Sedimentation Rate 2 0-20 MM/HR Patients with polycythemia and many hemoglobin abnormalities may have depressed sed rates whereas patients with anemia may have elevated sed rates. Comprehensive Met. Panel Reviewed date:06/02/2024 12:23:01 PM Interpretation: Performing Lab:[facility], [address] [place] [phone] Notes/Report: Sodium 142 135-145 mmol/L Potassium 4.4 [...] Dehydrogenase Reviewed date:06/02/2024 12:22:09 PM Interpretation: Performing Lab:[facility], [address] [place] [phone] Notes/Report: Lactate Dehydrogenase 255 122-220 U/L Vitamin B12 and Folate Reviewed date:06/02/2024 04:20:13 PM Interpretation: Performing Lab:[facility], [address] [place] [phone] Notes/Report: Vitamin B12 488 200-900 pg/mL NORMAL 200-900 PG/ML INDETERMINATE 160-199 PG/ML DEFICIENT < 160 PG/ML Folate 13.8 > or = 4.0 ng/mL Reference Values: > or = 4.0 ng/mL < 4.0 ng/mL suggests folate deficiency Methotrexate, aminopterin and folinic acid (leucovorin) are chemotherapeutic agents whose molecular structures are similar to folate; therefore, the Security System Administrator folate assay cannot be used for patients using these drugs. Immunofixation Pnl, Serum Reviewed date:06/07/2024 08:09:13 PM Interpretation: Performing Lab:[facility], [address] [place] [phone] Notes/Report: IgG 906 124-6380 mg/dL IgA 85 70-320 mg/dL IgM 41 50-300 mg/dL THIS TEST WAS PERFORMED AT: [facility] [address] [address] ADALID FOURNIER MD Immunofixation Interpretation SEE NOTE Normal pattern. No monoclonal proteins detected. THEO Reflex Titer and Pattern Reviewed date:06/07/2024 08:08:55 PM Interpretation: Performing Lab:[address] [address] Notes/Report: Anti Nuclear Antibody Screen NEGATIVE NEGATIVE [...] Negative International Consensus on THEO Patterns (https://doi.org/10.1 515/rwgu-1704-1457) For additional information, please refer to http://education.[employer]/faq/ NBH195 (This link is being provided for informational/ educational purposes only.) THIS TEST WAS PERFORMED AT: [facility] [address] [place] [phone] ADALID FOURNIER MD Anti Nuclear Antibody Titer TNP Anti Nuclear Antibody Pattern TNP THEO Titer 2 TNP THEO Pattern 2 TNP THEO Titer 3 TNP THEO Pattern 3 TNP Rheumatoid Factor Reviewed date:06/02/2024 04:14:35 PM Interpretation: Performing Lab:[facility], [address] [place] [phone] Notes/Report: Rheumatoid Factor < 13.0 <15.0 IU/mL Hepatitis B,C Profile Reviewed date:06/02/2024 04:14:21 PM Interpretation: Performing Lab:[facility], [address] [place] [phone] Notes/Report: Hepatitis B Surface Antibody NONREACTIVE Nonreactive Nonreactive: < 8.00 mIU/mL Hepatitis B Core Antibody Nonreactive Nonreactive Hepatitis C Antibody Nonreactive Nonreactive Antibodies to HCV not detected; does not exclude early acute HCV infection. Hepatitis B Surface Antigen Negative Negative HIV Ab/Ag Reviewed date:06/02/2024 04:14:43 PM Interpretation: Performing Lab:[address] [phone] Notes/Report: HIV AB/AG Nonreactive Nonreactive HIV-1 p24 [...] limit of detection of this assay. The [employer] HIV Ag/Ab Combo assay result and supplemental assay results should be interpreted in conjunction with the patient's clinical presentation, history and other laboratory results. If the results are inconsistent with clinical evidence, additional testing is suggested to confirm the result. US carotid duplex BI Reviewed date:06/09/2024 12:41:10 PM Interpretation: Performing Lab: Notes/Report: [address] [address] Ultrasound Report Signed Patient: Maureen Foreman MR#: [id number] : 1940 Acct:[id number] Age/Sex: 84 / F ADM Date: 06/09/24 Loc: .US Attending Dr: Alton Durham MD Ordering Physician: Alton Durham MD Date of Service: 06/09/24 Procedure(s): US carotid duplex BI Accession Number(s): [id number] cc: Alton Durham MD EXAMINATION: US EXTRACRANIAL [...] by: Wilberto Cardoso MD 06/09/2024 12:19 PM [facility] Dictated By: Wilberto Sanches MD Signed By: <Electronically signed by Wilberto Martel MD in OV> 06/09/24 1219 DD/ 1127 TD/TT: 06/09/24 1150 Shot Coat Tender: [place] [address] Ultrasound Report Signed Patient: Maureen Foreman MR#: [id number] : 1940 Acct:[id number] Age/Sex: 84 / F ADM Date: 06/09/24 Loc: . Attending Dr: Alton Durham MD Ordering Physician: Alton Durham MD Date of Service: 06/09/24 Procedure(s): US car otid duplex BI Accession Number(s): [id number] cc: Alton Durham MD EXAMINATION: US EXTRACRANIAL [...] by: Wilberto Cardoso MD 06/09/2024 12:19 PM [facility] Dictated By: Wilberto Kerr MD Signed By: <Electronically signed by Wilberto Martel MD in OV> 06/09/24 1219 DD/ 1127 TD/TT: 06/09/24 1150 Shot Coat Tender: US abdomen complete Reviewed date:06/13/2024 12:36:35 PM Interpretation: Performing Lab: Notes/Report: [address] [address] Ultrasound Report Signed Patient: Maureen Foreman MR#: [id number] : 1940 Acct:[id number] Age/Sex: 84 / F ADM Date: 06/13/24 Loc: HO.US Attending Dr: Julee Asher [facility] Ordering Physician: Julee Asher [facility] Date of Service: 06/13/24 Procedure(s): US abdomen complete Accession Number(s): [id number] cc: Alton Durham MD; Julee Asher [facility] CLINICAL HISTORY: R74.01 - Elevation [...] 06/13/24 1026 DD/ 1025 TD/TT: 06/13/24 1025 Shot Coat Tender: [place] [address] Ultrasound Report Signed Patient: Maureen Foreman MR#: [id number] : 1940 Acct:[id number] Age/Sex: 84 / F ADM Date: 06/13/24 Loc: HO.US Attending Dr: Julee LINTON- Ordering Physician: Julee Asher Date of Service: 06/13/24 Procedure(s): US abd omen complete Accession Number(s): [id number] cc: Alton Durham MD; Julee Asher [facility]- CLINICAL HISTORY: R7 4.01 - Elevation of [...] 06/13/24 1026 DD/ 1025 TD/TT: 06/13/24 1025 Shot Coat Tender: IRON PROFILE Reviewed date:07/03/2024 12:28:58 PM Interpretation: Performing Lab:[facility], [address] [place] [phone] Notes/Report: Iron 123 30-160 mcg/dL Total Iron Binding Capacity 338 228-428 mcg/dL Percent Iron Saturation 36 15-50 % Unsaturated Iron Binding 215 Ferritin Reviewed date:07/03/2024 12:22:12 PM Interpretation: Performing Lab:[facility], [address] [place] [phone] Notes/Report: Ferritin 32 10-250 ng/mL C Reactive Protein Reviewed date:07/03/2024 12:21:54 PM Interpretation: Performing Lab:[facility], [address] [place] [phone] Notes/Report: C Reactive Protein < 0.10 < or = 0.50 mg/dL Ceruloplasmin Reviewed date:07/13/2024 12:40:30 PM Interpretation: Performing Lab:[facility], [address] [place] [phone] Notes/Report: Ceruloplasmin 26 14-48 mg/dL THIS TEST WAS PERFORMED AT: [facility] [address] [place] [phone] ADALID FOURNIER MD Alpha Fetoprotein Reviewed date:07/13/2024 04:14:53 PM Interpretation: Performing Lab:[facility], [address] [place] [phone] Notes/Report: Alpha Fetoprotein 5.3 Reference Range: <6.1 [...] of disease. THIS TEST WAS PERFORMED AT: [facility] [address] [place] [phone] ADALID FOURNIER MD Liver Fibrosis Pnl Reviewed date:07/13/2024 12:40:22 PM Interpretation: Performing Lab:[facility], [address] [place] [phone] Notes/Report: Liver Fibrosis Score 0.25 Liver Fibrosis [...] a>0.62 and a<=1.00 : A3 (severe activity) ZME-Bqutw-6-Macroglobul in 198 106-279 mg/dL FIB-Haptoglobin 77 43-212 mg/dL FIB-Apolipoprotein A1 223 101-198 mg/dL FIB-Total Bilirubin 0.6 0.2-1.2 mg/dL FIB-GGT 27 3-65 U/L FIB-ALT 18 6-29 U/L Reference ID [id number] Footnote SEE NOTE The reliability of results is dependent on compliance with the preanalytical and analytical conditions recommended by [employer]. The tests have to be deferred for: [...] The performance characteristics have been determined by [employer] [facility]. It has not been cleared or approved by the U.S. Food and Drug Administration. Performance characteristics refer to the analytical performance of the test. [employer], the associated logo, [employer] and all associated [employer] patel are the registered trademarks of [employer]. All third green party patel - (R) and (TM) - are the property of their respective owners. (C) 2404-3986 [employer]. All rights reserved. THIS TEST WAS PERFORMED AT: [facility] [facility] [address] [place] [address] DELMER PRIETO MD,PHD,LOPEZ Mitochondrial Antibody Reviewed date:07/12/2024 07:07:20 PM Interpretation: Performing Lab:[address] [address] Notes/Report: Mitochondrial Antibodies NEGATIVE NEGATIVE The specimen was negative for cytoplasmic antibodies, however additional staining was observed suggesting the presence of Antinuclear Antibodies. Consider requesting order code 249, THEO Screen, IFA with Reflex to Titer and Pattern, or order code 53041, THEO Screen, IFA w/reflex Titer/Pattern, and Reflex to Multiplex 11 Ab [place], if clinically indicated. THIS TEST WAS PERFORMED AT: [facility] [address] [place] [phone] ADALID FOURNIER MD Mitochondrial Ab Titer TNP Smooth Muscle Antibody Reviewed date:07/12/2024 07:07:11 PM Interpretation: Performing Lab:[address] [phone] Notes/Report: Smooth Muscle Antibody <20 <20 U [...] type 1. THIS TEST WAS PERFORMED AT: [facility] [id number] [place] [phone] YANET KAMINSKI MD,PHD Complete Blood Count Auto Di ff Reviewed date:08/03/2024 12:56:05 PM Interpretation: Performing Lab:[facility], [address] [place] [phone] Notes/Report: White Blood Count 2.4 4.8-10.8 X10*3/uL [...] Panel Reviewed date:08/03/2024 04:21:18 PM Interpretation: Performing Lab:[facility], [address] [place] [phone] Notes/Report: Sodium 142 135-145 mmol/L Potassium 3.9 [...] g/dL Alkaline Phosphatase 85 39-117 U/L Hold Sedrick Reviewed date:08/03/2024 10:57:15 AM Interpretation: Performing Lab:[facility], [address] [place] [phone] Notes/Report: Nely Dubose See Note Specimen held untested for 24 hours; Call to request Chemistry testing. SLIDE REVIEW Reviewed date:08/03/2024 10:54:08 AM Interpretation: Performing Lab:[facility], [address] [place] [phone] Notes/Report: SLIDE REVIEW VERIFIED US thyroid Reviewed date:08/11/2024 09:47:47 AM Interpretation: Performing Lab: Notes/Report: [address] [place] [address] Ultrasound Report Signed Patient: Maureen Foreman MR#: [id number] : 1940 Acct:[id number] Age/Sex: 84 / F ADM Date: 08/10/24 Loc: HO.US Attending Dr: Alton Durham MD Ordering Physician: Alton Durham MD Date of Service: 08/10/24 Procedure(s): US thyroid Accession Number(s): [id number] cc: Alton Durham MD EXAMINATION: US THYROID [...] in OV> 08/10/[address] DD/ TD/TT: 08/10/24 0810 Shot Coat Tender: [place] [address] Ultrasound Report Signed Patient: Maureen Foreman MR#: [id number] : 1940 Acct:[id number] Age/Sex: 84 / F ADM Date: 08/10/24 Loc: HO.US Attending Dr: Alton Durham MD Ordering Physician: Alton Durham MD Date of Service: 08/10/24 Procedure(s): US thyroid Accession Number(s): [id number] cc: Alton Durham MD EXAMINATION: US THYROID [...] in OV> 08/10/[address] DD/ TD/TT: 08/10/24 0810 Shot Coat Tender: Nely Dubose Reviewed date:08/31/2024 05:00:30 PM Interpretation: Performing Lab:[facility], [address] [place] [phone] Notes/Report: Nely Dubose See Note Specimen held untested for 24 hours; Call to request Chemistry testing. Complete Blood Count Auto Di ff Reviewed date:11/03/2024 03:35:42 PM Interpretation: Performing Lab:[facility], [address] [place] [phone] Notes/Report: White Blood Count 2.7 4.8-10.8 X10*3/uL [...] Panel Reviewed date:11/03/2024 03:36:22 PM Interpretation: Performing Lab:[facility], [address] [place] [phone] Notes/Report: Sodium 141 135-145 mmol/L Potassium 3.7 [...] Dehydrogenase Reviewed date:11/02/2024 08:36:04 PM Interpretation: Performing Lab:[facility], [address] [place] [phone] Notes/Report: Lactate Dehydrogenase 230 122-220 U/L Nely Dubose Reviewed date:11/02/2024 08:26:21 PM Interpretation: Performing Lab:[facility], [address] [place] [id number] Notes/Report: Nely Dubose See Note Specimen held untested for 24 hours; Call to request Chemistry testing. Pathology Reviewed date:11/13/2024 01:02:31 PM Interpretation: Performing Lab:[facility], [address] [place] [id number] Notes/Report: ----- Name: AhsanDelmykamran Francisco Javier Age/Sex: 84/F : 1940 Unit#: [id number] Attend Dr: Renay Hudson MD Re11/09/24 Status : [facility] Location: [facility] Disch: ----- SPEC : [id number] RECD : 11/09/24 STATUS: DEREK LIMA NUM: [id number] ASHLI: 11/09/[address] [facility] [address]: Renay Hudson MD ENTERED: 11/09/24 54 SP TYPE: Surgical OTHR DR: Alton [...] polyp, esophageal stricture Microscopic Description A-D. Microscopic sections examined. No metaplastic changes are seen, supported by AB/PAS stains (A, B and C); no Helicobacter organisms are seen, supported by H. pylori immunostain (B and C). Material Received A. Duodenum bx - [facility] cimen also sent for disaccharidases test B. [...] B. CONTINUED ON NEXT PAGE ----- Name: Delmy Foreman Age/Sex: 84/F : 1940 Unit#: [id number] Attend Dr: Renay Hudson MD Re11/09/24 Status : [facility] Location: [facility] Disch: ----- SPEC : [id number] RECD : 11/09/24 STATUS: DEREK LIMA NUM: [id number] ASHLI: 11/09/[address] [facility] [address]: Renay Hudson MD ENTERED: 11/09/24-11 54 [...] microscopic examination, 1 piece in cassette D. ([facility]) Special studies orde red and performed: Immunostain for H. pylori on B and C; AB/PAS stains on A, B and C IHC S/NG Disclaimer NOTE: Unless otherwi se stated, all tissue is formalin-fixed and paraffin-embedded. Some or all of the immunohistochemical tests reported herein may have been developed and their performance characteristics determined by [facility]. They have not been cleared or appr baltazar by the U.S. Food and Drug Administration (FDA). However, the FDA has determined that such clearance or approval is not necessary. This laboratory is certified under the Clinical Laboratory Improvement Amendments of 1988 (CLIA) as qualified to perform high complexity clinical laboratory testing. Copies To: Alton Durham MD [facility] [address] [facility] [address] [place] [address] Renay Hudson MD [facility] [address] [place] [address] ----- Signed (signature on file) Camden Shine MD 11/13/24 0958 ----- END OF REPORT Disaccharidases Reviewed date:11/15/2024 03:49:36 PM Interpretation: Performing Lab:[facility], [address] [place] [phone] Notes/Report: Comment Duodenum BX Lactase 32.0 15.0-45.5 [...] analytical performance characteristics have been determined by [employer]. It has not been cleared or approved by the FDA. This assay has been validated pursuant to the CLIA regulations and is used for clinical purposes. THIS TEST WAS PERFORMED AT: [employer] [address] [place] [address] DELMER PRIETO MD,PHD,LOPEZ US renal BI Reviewed date:01/02/2025 10:21:07 AM Interpretation: Performing Lab: Notes/Report: [address] [address] Ultrasound Report Signed Patient: aMureen Foreman MR#: [id number] : 1940 Acct:[id number] Age/Sex: 84 / F ADM Date: 01/02/25 Loc: HO.US Attending Dr: Som Mckeon MD Ordering Physician: Som Mckeon MD Date of Service: 01/02/25 Procedure(s): US renal BI Accession Number(s): [id number] cc: Som Mckeon MD; Alton Durham MD [...] Rex Marie MD 01/02/2025 10:10 AM EDT RP Dictated By: Rex Marie MD Signed By: <Electronically signed by Rex Marie MD in OV> 01/02/25 1010 DD/ 0818 TD/TT: 01/02/25 0832 Shot Coat Tender: [place] [address] Ultrasound Report Signed Patient: Maureen Foreman MR#: [id number] : 1940 Acct:[id number] Age/Sex: 84 / F ADM Date: 01/02/25 Loc: .US Attending Dr: Aneudy Fernández MD Ordering Physician: Som Mckeon MD Date of Service: 01/02/25 Procedure(s): US renal BI Accession Number(s): [id number] cc: Som Mckeon MD; Alton Durham MD Reason for Exam: N20 .0 - Calculus of kidney EXAMINATION: US RETROPERITONEAL LIMITED (RENAL ONLY) CLINICAL INFORMATION: Calculus of kidney. COMPARISON: [facility] 06/13/2024 TECHNIQUE: Routine grayscale im aging of [...] 01/02/25 1010 DD/ 0818 TD/TT: 01/02/25 0832 Shot Coat Tender: [facility] Liver Panel Reviewed date:01/11/2025 04:34:34 PM Interpretation: Performing Lab:[address] [address] Notes/Report: Bilirubin Total 0.6 0.0-1.0 mg/dL Bilirubin Direct 0.1 0.0-0.5 mg/dL Aspartate Amino Transferase 42 5-31 U/L Mild Hemolysis.Interpret result with caution Alanine Aminotransferase 30 0-31 U/L Total Protein 6.9 6.5-8.0 g/dL Mild Hemolysis.Interpret result with caution Albumin Level 4.4 3.5-5.0 g/dL Alkaline Phosphatase 87 39-117 U/L IRON PROFILE Reviewed date:01/11/2025 04:33:12 PM Interpretation: Performing Lab:[address] [address] Notes/Report: Iron 124 30-160 mcg/dL Mild Hemolysis.Interpret result with caution Total Iron Binding Capacity 325 228-428 mcg/dL Percent Iron Saturation 38 15-50 % Unsaturated Iron Binding 201 Mild Hemolysis.Interpret result with caution. Ferritin Reviewed date:01/11/2025 04:33:23 PM Interpretation: Performing Lab:[facility], [address] [place] [address], [place] [address] Notes/Report: Ferritin 36 10-250 ng/mL Reason For Referral No Information Medications Medication [...] ER Fluarix Quadrivalent IM Intramuscular 02/26/2015 [facility] Flu [facility] Unknown 02/15/2016 Administered [facility] Fluarix Quadrivalent Unknown 02/17/2017 Administered [facility] Flu Vaccine IM Intramuscular 01/21/2018 Administered pt wa s given the vaccine at [facility] in [place] on [address] Fluarix Quadrivalent Unknown 02/03/2019 Administered [facility] PPSV23 (Pnemovax) IM Intramuscular 02/10/2019 Administered Influenza High Dose Unknown 01/23/2020 Administered [facility] zzz Unknown 02/10/2019 Administered zInfluenza Unknown 01/23/2020 Administered SARS-COV-2 Moderna Unknown 05/24/2020 Administered SARS-COV-2 Moderna Unknown 06/18/2020 Administered Influenza High Dose Unknown 02/12/2021 Administered [facility] SARS-COV-2 Moderna Unknown 03/18/2021 Administered [facility] Influenza [...] Problem Status W/U Status Risk Notes Problem 029620246 Thyroid nodule (E04.1) Active confirmed Problem 720737451 Neutropenia (D70.9) Active confirmed Problem 867992416 Lung nodule seen on imaging study (R91.1) Active confirmed Problem Non-toxic single thyroid nodule (433116821) Nontoxic single thyroid nodule (E04.1) Active confirmed Problem 9653179 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) Active confirmed Problem Calculus of kidney (96925010) 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) Active confirmed Problem Disorder of lumbar disc (218189643) Lumbar disc disease (M51.9) Active confirmed Problem 17953877 Essential hypertension (I10) Active confirmed Problem 956620659 Lung nodule (R91.1) Active confirmed Problem 207740378 Esophageal dysmotility (K22.4) Active confirmed Problem 471294840 History of kidne y stones (Z87.442) Active confirmed Problem 721686328 Cervical disc disease (M50.90) Active confirmed Problem 39068728 Sciatica of left side (M54.32) Active confirmed Problem 136476885 Neutropenia, unspecified type (D70.9) Active confirmed Problem 96550189 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) Active confirmed Problem 63790652 Sciatica of righ t side (M54.31) Active confirmed Problem 77565973 Elevated cholesterol (E78.00) Active confirmed Problem 740796629 Esophageal spasm (K22.4) Active confirmed Problem 90496395174576 Adnexal cyst (N94.9) Active confirmed Problem 301975499 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) Active confirmed Problem 21921797 Achalasia (K22.0) Active confirmed Problem 87810176 Paresthesia (R20.2) Active confirmed Problem 560451449129439 Atherosclerosis of both carotid arteries (I65.23) Active confirmed Problem 646062647 Abnormal mammogr am of both breasts (R92.8) Active confirmed Problem 878761742 Esophageal dysfunction (K22.4) Active confirmed Problem 814905513 Tingling of righ t upper extremity (R20.2) Active confirmed Problem 692517744 Gastroesophageal reflux disease with esophagitis without hemorrhage (K21.00) Active confirmed Problem 529268112 Porokeratosis (Q82.8) Active confirmed Problem 018166077 Hepatic granulom a (K75.3) Active confirmed Problem 004988021 Mild carotid art silva disease (I77.9) Active [...] [address] [place], [place] [id number] 04/04/2024 Alton Durham Neutropenia D70.9 Alton Durham MD [address] [place] [id number] 05/09/2024 Alton Durham Gastroesophageal ref lux disease with esophagitis without hemorrhage K21.00 Alton Durham MD [address] [place] [id number] 05/19/2024 Alton Durham Status post fall Z91 .81 ; Mild carotid artery disease I77.9 and Hypokalemia E87.6 Alton Durham MD [address] [place] [id number] 08/31/2024 Alton Durham Elevated cholesterol E78.00 ; AA (alcohol abuse) 305.00 and Hypokalemia E87.6 Alton Durham MD [address] [place] [id number] 03/09/2025 Alton Durham Neutropenia D70.9 ; Elevated cholesterol E78.00 and Essential hypertension I10 Alton Durham MD [address] [place] [id number] 03/14/2024 Alton Durham Neutropenia D70.9 ; Elevated cholesterol E78.00 ; Thyroid nodule E04.1 ; Esophageal dysfunction K22.4 ; Hypokalemia E87.6 ; Essential hypertension I10 ; Colon cancer screening Z12.11 and Depression screening Z13.31 Alton Durham MD [address] [place] [id number] 04/14/2024 Alton Durham Neutropenia D70.9 an d Gastroesophageal reflux disease with esophagitis without hemorrhage K21.00 Alton Durham MD [address] [place] [id number] 07/11/2024 Alton Durham Elevated LFTs R79.89 ; Elevated cholesterol E78.00 and Atherosclerosis of both carotid arteries I65.23 Alton Durham MD [address] [place] [id number] 09/05/2024 Alton Durham Neutropenia D70.9 ; Esophageal dysmotility K22.4 ; Elevated cholesterol E78.00 ; Mild carotid artery disease I77.9 and Nontoxic single thyroid nodule E04.1 Alton Durham MD [address] [place] [id number] 05/18/2024 Alton Durham Bilateral carotid artery disease I77.9 Alton Durham MD [address] [place] [address] [id number] 05/22/2024 Alton Durham MD [address] [place] [address] [id number] 06/09/2024 Alton Durham MD [address] [place] [address] [id number] 06/27/2024 Alton Durham MD [address] [place] [address] [id number] 07/13/2024 Alton Durham MD [address] [place] [address] [id number] 08/08/2024 Alton Durham Atherosclerosis of b oth carotid arteries I65.23 Alton Durham MD [address] [place] [address] [id number] 08/11/2024 Alton Durham Thyroid nodule E04.1 Alton Durham MD [address] [place] [id number] 01/04/2025 Alton Durham Calculus of kidney N20.0 Assessments Encounter Date Diagnosis (ICD Code) Assessment Notes Treatment Notes Treatment Clinical Notes Section Notes 04/04/2024 Neutropenia (ICD-10 - D70.9) 05/09/2024 Gastroesophageal reflux disease with esophagitis without hemorrhage (ICD-10 - K21.00) 05/19/2024 Status post fall (ICD-10 - Z91.81) doing well 05/19/2024 Mild carotid artery disease (ICD-10 - I77.9) had this four years ago and repeat us. 08/31/2024 Elevated cholesterol (ICD-10 - E78.00) 03/09/2025 Neutropenia (ICD-10 - D70.9) 03/14/2024 Neutropenia (ICD-10 - D70.9) stable, pending [...] LFTs (ICD-10 - R79.89) contact Carmen at [facility] to discuss/ is most likely related [...] 01/04/2025 Calculus of kidney (ICD-10 - N20.0) 05/19/2024 Hypokalemia (ICD-10 - E87.6) pending lab work 08/31/2024 AA (alcohol abuse) (ICD9-CM - 305.00) 03/09/2025 Elevated cholesterol (ICD-10 - E78.00) 03/14/2024 Thyroid nodule (ICD-10 - E04.1) will repeat us next year/ Thyroid order printed and put in future folder 07/11/2024 Elevated cholesterol (ICD-10 - E78.00) is not at goal but with elevated lft's will leave on present 09/05/2024 Esophageal dysmotility (ICD-10 - K22.4) seems better, followed by GI still having a lot of burping and belcing. 08/31/2024 Hypokalemia (ICD-10 - E87.6) 03/09/2025 Essential hypertension (ICD-10 - I10) 03/14/2024 Esophageal dysfunction (ICD-10 - K22.4) on [...] THYROID 06/24/2023 Complete Blood Count Auto Diff 5 Comprehensive [place]. Panel Fast 5 Lipid Panel 03/09/2025 CT abdomen pelvis wo con 12/21/2022 US thyroid 07/15/2023 US thyroid 08/11/2024 UA ClnCatch+Micro w/rflx Cult 03/09/2025 Future Test Test Name Order Date US THYROID 01/02/2020 US THYROID 04/18/2021 CT chest wo con 07/08/2023 US pelvic and transvaginal 07/30/2023 US thyroid 09/11/2024 Next Appt Details Provider Name:Alton wick, 03/16/2025 08:00:00 AM, [address] [place] [address] Drive, [address], [place], [place], [id number], Insurance Providers Payer Name Payer Address Payer Phone Subscriber Number Group Number Insured Name Patient Relationship to Insured Coverage Start Date Coverage End Date MEDICARE [employer] [address] [place] [address] [id number] Maureen Foreman Self - patient is the insured [facility] [address] [facility] [place] [phone] [id number] Maureen Foreman Self - patient is [...]
--- OUTSIDE RECORDS SUMMARY | 2025-03-09 14:55 | XMS_ITS ---
Author Name Beto Loving Address Unknown Organization [facility] Care Team Providers Care Loan Review Analyst Name Role Phone Unavailable Primary Care Physician Unavailab le History Of Present Illness This is an 84 year old female who is following up for cyst on the left cheek. She was seen on February 13, 2025, at which time Reason for Deferral: declines treatment today.Instructions: Planned I&D. The patient presents for visit to recheck site and discuss options.Interval History: The pt presents today for I&D procedure Allergies, Adverse Reactions, Alerts Substance RxNorm Reaction(s) Severity Status Start Da te Bactrim 530480 unspecified active Keflex 068452 unspecified active Medications Medication Generic Name RxNorm Strength Strength Unit Route Dose Dose Form Frequency Date Started Date Ended Status Indication Sig lisinopril 5 mg Oral table t suspend ed Nexium esomepra zole [place] 434370 20 mg Oral 1 capsu le,de layed relea se (e.c. ) bid active rosuvastati n 40 mg Oral 1 table t qd active sucralfate 934689 100 mg/mL Oral 1 suspe nsion qd active Acyclovir NULL 10/31/19 15 active AmLODIPine Besylate NULL 0 17 suspend ed Ativan NULL 12/21/19 12 suspend ed Atorvastati n Calcium NULL 17 suspend ed Azithromyci n NULL 10/31/19 15 active Baby Aspirin NULL 12/21/19 12 suspend ed Cefpodoxime Proxetil NULL 0 15 active Doxycycline Hyclate NULL 10/31/19 15 active Famotidine NULL 02/24/20 17 active Ibuprofen NULL 02/24/20 17 suspend ed Lisinopril NULL 02/24/20 17 suspend ed LORazepam NULL 07/10/19 15 suspend ed Metoprolol Tartrate NULL 0 17 active Mupirocin NULL 12/31/19 12 suspend ed Neomycin-Po lymyxin-HC NULL 01/24 15 suspend ed Pantoprazol e Sodium NULL 0 17 suspend ed potassium chloride potassiu m chloride 1 active PredniSONE NULL 02/24/20 17 active Problems Problem Code Type Status Date of Diagnosis Date of Resolution Follicular cysts of skin and subcutaneous tissue (disorder) ( SNOMED) Diagnosis active 03/08/2025 Follicular cysts of skin and subcutaneous tissue (disorder) ( SNOMED) Diagnosis active 02/13/2025 Scar conditions and fibrosis of skin (disorder) 493774378( SNOMED) Diagnosis active 05/11/2024 Chondritis of left external ear (disorder) 5204685457 260048(SNO MED) Diagnosis active 05/11/2024 Melanocytic nevus of skin of face (disorder) 8888035140 (SNOMED) Diagnosis active 05/11/2024 Disseminated superficial actinic porokeratosis (disorder) 46296650(S NOMED) Diagnosis active 05/11/2024 Seborrheic keratosis (disorder) 306319895( SNOMED) Diagnosis active 05/11/2024 Disorder of pigmentation (disorder) 307039290( SNOMED) Diagnosis active 05/11/2024 Epidermoid cyst of skin (disorder) 142766550( SNOMED) Diagnosis active 05/11/2024 Hemangioma of skin and subcutaneous tissue (disorder) 965458948( SNOMED) Diagnosis active 05/11/2024 History of malignant neoplasm of skin (situation) 705480305( SNOMED) Diagnosis active 03/18/2023 Epidermoid cyst of skin (disorder) 957003796( SNOMED) Diagnosis active 03/18/2023 Chondritis of left external ear (disorder) 5061247232 810288(SNO MED) Diagnosis active 03/18/2023 Melanocytic nevus of face (disorder) 778582812( SNOMED) Diagnosis active 03/18/2023 Disseminated superficial actinic porokeratosis (disorder) 90121322(S NOMED) Diagnosis active 03/18/2023 Seborrheic keratosis (disorder) 152555389( SNOMED) Diagnosis active 03/18/2023 Disorder of pigmentation (disorder) 688359090( SNOMED) Diagnosis active 03/18/2023 History of malignant neoplasm of skin (situation) 552235406( SNOMED) Diagnosis active 03/10/2022 Actinic keratosis (disorder) ( SNOMED) Diagnosis active 03/10/2022 Melanocytic nevus of face (disorder) 947136766( SNOMED) Diagnosis active 03/10/2022 Disorder of pigmentation (disorder) 246592347( SNOMED) Diagnosis active 03/10/2022 Disseminated superficial actinic porokeratosis (disorder) 16134445(S NOMED) Diagnosis active 03/10/2022 Seborrheic keratosis (disorder) 651252361( SNOMED) Diagnosis active 03/10/2022 History of malignant neoplasm of skin (situation) 520205088( SNOMED) Diagnosis active 03/06/2021 Disorder of pigmentation (disorder) 165469013( SNOMED) Diagnosis active 03/06/2021 Seborrheic keratosis (disorder) 464840075( SNOMED) Diagnosis active 03/06/2021 Actinic keratosis (disorder) ( SNOMED) Diagnosis active 03/06/2021 Disseminated superficial actinic porokeratosis (disorder) 09153111(S NOMED) Diagnosis active 03/06/2021 Personal history of other malignant neoplasm of skin Z85.828(IC D-10) Diagnosis active 03/05/2020 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) Diagnosis active 03/05/2020 Inflamed seborrheic keratosis L82.0(ICD- 10) Diagnosis active 03/05/2020 Disseminated superficial actinic porokeratosis (DSAP) L56.5(ICD- 10) Diagnosis active 03/05/2020 Other melanin hyperpigmentation L81.4(ICD- 10) Diagnosis active 03/05/2020 Other seborrheic keratosis L82.1(ICD- 10) Diagnosis active 03/05/2020 Personal history of other malignant neoplasm of skin Z85.828(IC D-10) Diagnosis active 02/28/2019 Actinic keratosis L57.0(ICD- 10) Diagnosis active 02/28/2019 Other viral warts B07.8(ICD- 10) Diagnosis active 02/28/2019 Other seborrheic keratosis L82.1(ICD- 10) Diagnosis active 02/28/2019 Other melanin hyperpigmentation L81.4(ICD- 10) Diagnosis active 02/28/2019 Other follicular cysts of the skin and subcutaneous tissue L72.8(ICD- 10) Diagnosis active 02/28/2019 Other seborrheic dermatitis L21.8(ICD- 10) Diagnosis active 02/28/2019 Disseminated superficial actinic porokeratosis (DSAP) L56.5(ICD- 10) Diagnosis active 02/28/2019 Neoplasm of uncertain behavior of skin (disorder) 20958702(S NOMED) Diagnosis active 03/01/2018 Other specified health status Z78.9(ICD- 10) Diagnosis active 02/23/2017 Other specified health status Z78.9(ICD- 10) Diagnosis active 01/24/2015 History of malignant neoplasm of skin (situation) 636860363( SNOMED) Diagnosis active 01/24/2015 Inflamed seborrheic keratosis (disorder) 854148472( SNOMED) Diagnosis active 10/30/2014 Epidermoid cyst of skin (disorder) 286953584( SNOMED) Diagnosis active 09/18/2014 Actinic keratosis (disorder) 298519968( SNOMED) Diagnosis active 07/09/2014 Neoplasm of uncertain behavior of skin (disorder) 11191145(S NOMED) Diagnosis active 11/27/2013 Basal cell carcinoma of skin (disorder) 995754135( SNOMED) Problem active Gastroesophageal reflux disease (disorder) 792420181( SNOMED) Problem active Hypercholesterolemia (disorder) 52322776(S NOMED) Problem active History of clinical finding in subject (situation) 974333814( SNOMED) Problem active Results No data Encounters Service provided at [facility], [address] [place] [address], [address], [place], [place] [id number]. Office phonenumber is [phone]. Office fax number is [phone]. Encounter Diagnosis Location Date / Time Type Cyst (L72.8) [facility] 03/08/2025 20:30:00 UTC NI Reason For Referral No data Procedures Procedure Date Incision and drainage of skin (procedure ) 03/08/2025 12:00 am UTC Cryotherapy of skin lesion with liquid n itrogen (procedure) 03/10/2022 12:00 am UTC Cryotherapy of skin lesion with liquid n itrogen (procedure) 03/05/2020 12:00 am UTC Shave biopsy (procedure) 03/05/2020 12:0 0 am [facility] Percutaneous extraction of k idney stone with fragmentation procedure (procedure) Surgical biopsy of skin (procedure) Surgical biopsy of skin (procedure) Surgical biopsy of skin (procedure) Surgical biopsy of skin (procedure) Surgical biopsy of skin (procedure) Surgical biopsy of skin (procedure) Documentation of past medical history (p rocedure) Surgical biopsy of skin (procedure) Documentation of past medical history (p rocedure) Documentation of past medical history (p rocedure) Surgical biopsy of skin (procedure) Surgical biopsy of skin (procedure) Documentation of past medical history (p rocedure) Percutaneous extraction of k idney stone with fragmentation procedure (procedure) Review Of Systems No Data Assessment 1.CystCounselingIncision and Drainage: left superior central malar cheek; Lesion Type - Cyst; Method - 11 blade; Curette - No; Packing? - none; Drainage Amount? - moderate; Drainage Type? - keratinaceous. Plan of Care Future visit for 04/05/2025 - Follow up in 1 month for: Focused Visit. Other Instructions: 10FU, Next appt. on Apr 19, 2025, in [facility]. Other Instructions: 10FU, Next appt. on Apr 19, 2025, in [facility]. Instructions * I counseled the patient regarding the following:Skin Care: Epidermal Inclusion Cysts require no specific skin care. Enlarging cysts should be sampled to confirm their cystic nature.Expectations: Epidermal Inclusion Cysts are benign sacs within the skin that contain keratin, derived from a hair follicle. They can be incised and drained or completely excised.Contact Office if: Epidermal Inclusion Cysts rupture or become red and tender. Social History Code Activity Start Date End Date 195696041 (Credit Sesame) Never smoker Sex female Sexual orientation Unspecified Gender identity Unspecified Vital Signs No data
--- OUTSIDE RECORDS SUMMARY | 2025-03-09 14:55 | XMS_ITS | Patient Health Record ---
Author Organization [facility] Address [address] [place] [address] Care Team Providers Care Consumer Sales Representative Name Role Phone Alton Durham MD Primary Care Provider Bean Cortes Jr Reason For Referral No Information Plan Of Treatment No Information Insurance Providers Payer Name Payer Address Payer Phone Subscriber Number Group Number Insured Name Patient Relationship to Insured Coverage Start Date Coverage End Date MEDICARE OF [place] [address] [place], [place] [id number] ARINA WHITE Self - patient is the insured [facility] [address] [address] [place] [address] [id number] ARINA WHITE Self - patient is the insured
== END 2025-03-09 12:47 | disposition home or self-care (01) ==
LOC: HO.LNP 12:46
PROVIDERS: Visit Provider Internal Medicine
DX: D70.9 Neutropenia, unspecified (principal); E78.00 Pure hypercholesterolemia, unspecified; I10 Essential (primary) hypertension
CPT/HCPCS: 80053; 80061; 81001; 85025

== ENCOUNTER 2025-04-06 08:14 | Outpatient (AMB) | payer MEDICARE, OTHER, SELFPAY ==
[2025-04-06 08:17] VITALS: BP 152/66; PULSE 84; O2SAT 100; BMI 19.2
--- NOTE | 2025-04-06 08:17 | MHC.OFFVIS ---
Vital Signs 04/06/25 08:17 Height 5 ft 8 in Weight 126 lb BMI 19.2 BP 152/66 H Blood Pressure Location Rt brachial Position Sitting Pulse 84 Pulse Source Pulse Oximeter Pulse Oximetry (%) 100 Oxygen Delivery Method Room Air Intake Visit Reasons: 2 Month f/u Intake Note: ESTABLISHED PATIENT for GERD + weight mgmt. Chief Complaint; Pt denies any new GI sx or concerns at this time. Pt does have a few general inquiries with regard to food options. Overall, pt reports good progress since last visit. Carriage Dogger Required: No Accompanied by: Self / Same As Patient Allergies cephalexin (From KEFLEX) Allergy (Severe, Verified 04/06/25 08:17) RASH Sulfa (Sulfonamide Antibiotics) (SULFA (SULFONAMIDE ANTIBIOTICS)) Allergy (Severe, Verified 04/06/25 08:17) INTSERNAL AND EXTERNAL RASH/INFECTION Iodinated Contrast Media (IV Dye, Iodine Containing) Allergy (Intermediate, Verified 04/06/25 08:17) HIVES,REDNESS + SWELLING sulfamethoxazole (From BACTRIM) Allergy (Intermediate, Verified 04/06/25 08:17) INTERNAL AND EXTERNAL RASH/ INFECTION HPI HPI 2 Month f/u: Details: LAST VISIT: Transaminitis Epigastric pain Gastroesophageal reflux disease Burping Plan Patient will continue current PPI therapy. Continue sucralfate as needed. Continue avoiding dietary triggers only a snacking staying upright for minimal 3 hours after meals discussed with patient. Will repeat liver enzymes is. Patient is taking 20 mg of rosuvastatin now. Patient was encouraged to take senna every other day. Continue follow-up visits with diet patient. Follow-up in 2 months, sooner on as needed basis. She is agreeable to this plan and verbalizes understanding of instructions. She was given the opportunity to ask questions and all questions answered. ? Thank you for allowing me to participate in her care Orders Liver Panel Today R74.01 New sennosides (Natural Senna Laxative) 8.6 mg PO BEDTIME PRN 90 tabs 0RF constipation TODAY'S VISIT Patient is here today for follow-up. Patient reports that she has been doing much better. Only few episodes of epigastric pain and belching. Otherwise patient is doing well. Over that things given she was able to introduce more food in to her diet. Did well. Patient is taking Nexium twice a day and reports that her symptoms are well tolerated. Patient took extra Cipro him at noon time during holiday dinner just to prevent episodes of epigastric pain and belching. Patient reports that she is moving her bowels better now that she is taking senna. Denies a specific above dysphagia or odynophagia. Denies melena, hematochezia, unintentional weight loss or ribbon like stools. Weight stable [facility] Medical History Transaminitis Chronic leukopenia Erosive esophagitis Kidney stone GERD (gastroesophageal reflux disease) High cholesterol HTN (hypertension) Surgical History H/O lithotripsy H/O esophagogastroduodenoscopy (07/09/23) Social History Alcohol intake: never Patient Tobacco Use Status: Never used Tobacco Advance Directives Date on File: 09/22/23 service: No Current occupational status: retired Current occupational exposures/hazards: No Review of Systems Const Denies weight gain and Denies weight loss ENT Reports no additional complaints, Denies dysphagia and Denies odynophagia Card Reports no additional complaints Resp Reports no additional complaints GI Denies abdominal pain, Reports belching (Occasional), Denies melena, Reports bloating, Denies change in bowel habits, Denies dysphagia, Denies excessive flatus, Denies dyspepsia, Denies heartburn, Denies diarrhea, Denies loose stools, Denies nausea, Denies odynophagia and Denies vomiting Reports no additional complaints Musc Reports no additional complaints Neuro Reports no additional complaints Psych Reports no additional complaints Endo Reports no additional complaints Physical Exam Vital Signs: Last Vital Signs Pulse 84 04/06/25 08:17 BP 152/66 H 04/06/25 08:17 Pulse Ox 100 04/06/25 08:17 Oxygen Delivery Method Room Air 04/06/25 08:17 BMI result Body Mass Index 19.2 Const General: no acute distress Orientation/consciousness: patient oriented x3 Resp Effort & Inspection: normal respiratory effort, able to speak in complete sentences, no tracheal deviation and symmetric chest movement Auscultation: clear to auscultation bilaterally Cardio Rate: regular rate GI Inspection: Yes normal to inspection and No distended Palpation (GI): Soft to palpation, not firm, nontender and No hepatosplenomegaly present Auscultation: normal bowel sounds General: Yes no CVA tenderness Back/Spine/Pelvis Back: no CVA tenderness Skin General skin exam: elasticity normal, turgor normal and dry skin Neuro General: patient oriented x3 Psych Appearance: grossly normal Mental Status: mental status grossly normal Assessment & Plan Assessment & Plan (1) Erosive esophagitis: Code(s): K22.10 - Ulcer of esophagus without bleeding Category: Medical (2) Transaminitis: Code(s): R74.01 - Elevation of levels of liver transaminase levels Category: Medical (3) Epigastric pain: Code(s): R10.13 - Epigastric pain Category: Medical (4) Gastroesophageal reflux disease: Code(s): K21.9 - Gastro-esophageal reflux disease without esophagitis Qualifiers: Esophagitis presence: esophagitis presence not specified Qualified Code(s): K21.9 - Gastro-esophageal reflux disease without esophagitis (5) Burping: Code(s): R14.2 - Eructation Plan Continue current management with Nexium. Continue avoiding dietary triggers and late night snacking. Staying upright for minimum 3 hours after meals discussed with patient. Patient can continue introducing food. One item every few days. It try to avoid introducing multiple different foods at the same time. Continue senna as needed. Increase fluid intake and activity to promote bowel motility. Continue fiber with pre and probiotic. Patient will return in 3 months, sooner on as needed basis. She is agreeable to this plan and verbalizes understanding of instructions. She was given the opportunity to ask questions and all questions answered. Thank you for allowing me to participate in her care Medications: Refilled sennosides (Natural Senna Laxative) 8.6 mg PO BEDTIME PRN 90 tabs 3RF constipation Coding Level of Care Code Est Pt Level 3 (05821) Diagnoses Erosive esophagitis K22.10 Transaminitis R74.01 Epigastric pain R10.13 Gastroesophageal reflux disease, unspecified whether esophagitis present K21.9 Esophagitis presence: esophagitis presence not specified Burping R14.2 Time Spent (min) 30 Comment 20 minutes spent with patient and additional 10 minutes spent reviewing her records
== END 2025-04-06 09:12 | disposition home or self-care (01) ==
LOC: HO.HGI 08:14
PROVIDERS: PCP Internal Medicine; Visit Provider Nurse Practitioner Family
DX: K22.10 Ulcer of esophagus without bleeding (principal); R74.01 Elevation of levels of liver transaminase levels; R10.13 Epigastric pain; K21.9 Gastro-esophageal reflux disease without esophagitis; R14.2 Eructation
CPT/HCPCS: 99213

== ENCOUNTER → 2025-04-06 08:14 | Outpatient (BNVA) | payer MEDICARE, OTHER, SELFPAY | PROVIDERS: PCP Internal Medicine; Visit Provider Nurse Practitioner Family | DX: K21.9 Gastro-esophageal reflux disease without esophagitis (principal); R14.2 Eructation; R10.13 Epigastric pain; R74.01 Elevation of levels of liver transaminase levels; K22.10 Ulcer of esophagus without bleeding | CPT/HCPCS: 99212 ==

== ENCOUNTER 2025-04-27 07:57 | Outpatient (REF) | payer MEDICARE, OTHER, SELFPAY ==
--- OUTSIDE RECORDS SUMMARY | 2024-07-11 03:30 | XMS_ITS ---
Author Organization Alton Durham MD Address [address] [place] [phone] Care Team Providers Care Noodle Maker Name Role Phone Alton Durham Primary Care Provider Allergies Allergen (clinical drug ingredient) Drug/Non Drug Allergy documented on EMR Reaction Allergy Type Onset Date Status Keflex rash Drug Allergy Active ciprofloxacin Cipro rash and myalgia Drug Allergy Active sulfamethoxazole / trimethoprim Bactrim hives over entire body Drug Allergy Active ivp dye (uncoded) rash Allergy Ac tive REASON FOR VISIT 1 month follow up appt Medications Medication SIG (Take, Route, Frequency, Duration) Notes Start Date End Date Status Protonix 40 MG 1 TABLET ONCE A DAY ORALLY 90 DAYS Not-Taking Ondansetron HCl 4 MG 1 tablet Orally Onc e a day for 20 days 05/07/2023 Not-Taking Tylenol Extra Strength 500 MG 1 tablet as needed Orally every 6 hrs Not-Taking Famotidine 40 MG 1 tablet at bedtime Orally Once a day for 30 day(s) Not-Taking Valtrex 1 GM 1 tablet Orally 3 ti mes per day for 7 days 10/23/2016 Not-Taking Multi Vitamin/Minerals as directed Orally Active ZyrTEC 10 MG 1 tablet Orally Once a day for 30 day(s) Not-Taking Potassium Chloride 20 MEQ TAKE 1 PACKET AND MIX IN LIQUID AND DRINK BY MOUTH DAILY DIRECTED Orally QOD Active NexIUM 20 MG 1 capsule Orally twi ce a day Active Rosuvastatin Calcium 40 MG take 1 tablet by mouth every day Orally Once a day Active Vitamin B-6 50 MG 1 tablet Orally for 30 day(s) Active Sucralfate 1 GM/10ML 10 mL 1 hour before meals and at bedtime on an empty stomach Orally twice a day Active Vital Signs Blood pressure systolic 140 mm Hg 07/12/19 25 Blood pressure diastolic 64 mm Hg 025 Height 68 in 07/11/2024 Weight 118 lbs 07/11/2024 BMI 17.94 kg/m2 07/11/2024 Encounters Encounter Location Date Provider Diagnosis Alton Durham MD [address] [place], [place] [phone] 07/11/2024 Alton Durham Elevated LFTs R79.89 ; Elevated cholesterol E78.00 and Atherosclerosis of both carotid arteries I65.23 Assessments Encounter Date Diagnosis (ICD Code) Assessment Notes Treatment Notes Treatment Clinical Notes Section Notes 07/11/2024 Elevated LFTs (ICD-10 - R79.89) contact Carmen at [facility] to discuss/ is most likely related to the statin. could stop it and see if it returns to normal but don't think that is necessary 07/11/2024 Elevated cholesterol (ICD-10 - E78.00) is not at goal but with elevated lft's will leave on present 07/11/2024 Atherosclerosis of both carotid arteries (ICD-10 - I65.23) no change in 5 years Plan Of Treatment Treatment Notes Assessment Notes Elevated LFTs contact Carmen at [facility] to discuss/ is most likely related to the statin. could stop it and see if it returns to normal but don't think that is necessary Elevated cholesterol is not at goal but with elevated lft's will leave on present Atherosclerosis of both carotid arteries no change in 5 years Next Appt Details Provider Name:Alton wick, 09/04/2025 08:00:00 AM, [address], [address], [place], [place], [phone], Provider Name:Alton Joiner ier, 09/11/2025 08:45:00 AM, [address], [address], [place], [phone], Provider Name:Alton Joiner ier, 03/14/2026 07:15:00 AM, [address], [address], [place], [phone], Provider Name:Alton Joiner ier, 03/21/2026 08:00:00 AM, [address], [address], [place], [phone], Progress Notes * Maureen WHITE JDOB: (84 yo F)Acc No.[id number]:07/11/2024 Progress Notes Patient: Maureen LEIVA Provider: France Durham MD :1940 A ge:84 Y S ex:Female Date:07/11/2024 Address:[address] [place] [address] [place], [id number] Subjective: * Chief Complaints: * 1 month follow up appt * HPI: S ymptom(s): patient is a 84 yo female here for one month follow up visit, had bad week last week burping and spitting up phlegm/. * ROS: G eneral/Constitutional: Denies C hills. D enies F atigue. D enies F ever. D enies H eadache. E NT: Patient denies d ecreased sense of smell, any loss of taste, sore throat. D enies S ore throat. R espiratory: Denies C ough. D enies S hortness of breath at rest. D enies S hortness of breath with exertion. G astrointestinal: Denies D iarrhea. M usculoskeletal: Patient denies m uscle aches. P eripheral Vascular: Patient denies r ed and blue toes. * Medical History: * Surgical History: * Hospitalization/Major Diagno stic Procedure: * Medications: T akingSucralfate 1 GM/10ML Suspension 10 mL 1 hour before meals and at bedtime on an empty stomach Orally twice a day Vitamin B-6 50 MG Tablet 1 tablet Orally Multi Vitamin/Minerals Tablet as directed Orally Rosuvastatin Calcium 40 MG Tablet take 1 tablet by mouth every day Orally Once a day NexIUM 20 MG Capsule Delayed Release 1 capsule Orally twice a day Potassium Chloride 20 MEQ Packet TAKE 1 PACKET AND MIX IN LIQUID AND DRINK BY MOUTH DAILY DIRECTED Orally QOD Taking Sucralfate 1 GM/10ML Suspension 10 mL 1 hour before meals and at bedtime on an empty stomach Orally twice a day Taking Vitamin B-6 50 MG Tablet 1 tablet Orally Taking Multi Vitamin/Minerals Tablet as directed Orally Taking Rosuvastatin Calcium 40 MG Tablet take 1 tablet by mouth every day Orally Once a day Taking NexIUM 20 MG Capsule Delayed Release 1 capsule Orally twice a day Taking Potassium Chloride 20 MEQ Packet TAKE 1 PACKET AND MIX IN LIQUID AND DRINK BY MOUTH DAILY DIRECTED Orally QOD Not- Taking/PRNZyrTEC 10 MG Tablet Chewable 1 tablet Orally Once a day Famotidine 40 MG Tablet 1 tablet at bedtime Orally Once a day Tylenol Extra Strength 500 MG Tablet 1 tablet as needed Orally every 6 hrs Ondansetron HCl 4 MG Tablet 1 tablet Orally Once a day Protonix 40 MG Tablet Delayed Release 1 TABLET ONCE A DAY ORALLY 90 DAYS Valtrex 1 GM Tablet 1 tablet Orally 3 times per day Medication List reviewed and reconciled with the patientNot-Taking/PRN ZyrTEC 10 MG Tablet Chewable 1 tablet Orally Once a day Not-Taking/PRN Famotidine 40 MG Tablet 1 tablet at bedtime Orally Once a day Not-Taking/PRN Tylenol Extra Strength 500 MG Tablet 1 tablet as needed Orally every 6 hrs Not-Taking/PRN Ondansetron HCl 4 MG Tablet 1 tablet Orally Once a day Not-Taking/PRN Protonix 40 MG Tablet Delayed Release 1 TABLET ONCE A DAY ORALLY 90 DAYS Not-Taking/PRN Valtrex 1 GM Tablet 1 tablet Orally 3 times per day Medication List reviewed and reconciled with the patient * Allergies: i vp project dye: rashBactrim: hives over entire bodyKeflex: rashCipro: rash and myalgiayes[Allergies Verified] Objective: * Vitals: H t: 68, Wt: 118, BMI:17.94, BP:140/64, Wt-k.52. * Examination: G eneral Examination: GENERAL APPEARANCE: a lert, well hydrated, in no distress.? HEAD: n ormocephalic. SKIN: g ood turgor. HEART: r egular rate and rhythm, no murmurs, rubs, gallops.? LUNGS: n o wheezes, rales, rhonchi, good air movement, clear to auscultation bilaterally. EXTREMITIES: a bnormal with stasis dermatitis in lower extrem. Assessment: * Assessment: 1. E levated LFTs - R79.89 (Primary) 2 . E levated cholesterol - E78.00? 3. A therosclerosis of both carotid arteries - I65.23 Plan: * Treatment: 2. E levated cholesterol Notes: is not at goal but with elevated lft's will leave on present 3. A therosclerosis of both carotid arteries Notes: no change in 5 years * Procedure Codes: * * Sign off status: Completed true * Provider: France Durham MD Date: 0 07/11/2024 Generated for Nando baldwin/Douglas/eTransmitting on: 1 06/28/2024 08:00 AM EST History and Physical Notes * HPI (History of Present Illness) Category Sub-Category Detail Notes Category Not es Symptom(s) patient is a 84 yo female here for one month follow up visit, had bad week last week burping and spitting up phlegm/ Examination Category Sub-Category Detail Notes Category Not es General Examination GENERAL APPEARANCE: alert, w ell hydrated, in no distress HEAD: normocephalic HEART: regular rate and rhy thm, no murmurs, rubs, gallops LUNGS: no wheezes, rales, r honchi, good air movement, clear to auscultation bilaterally SKIN: good turgor EXTREMITIES: abnormal with stasis dermatitis in lower extrem
--- OUTSIDE RECORDS SUMMARY | 2024-07-13 03:10 | XMS_ITS ---
Author Organization Alton Durham MD Address [address] [place] [phone] Care Team Providers Care Mental Telepathist Name Role Zahra Marva Alton Primary Care Provider REASON FOR VISIT REGARDING STATIN Encounters Encounter Location Date Provider Diagnosis Alton Durham MD [address] [facility] [address] [place] [phone] 07/13/2024 Alton Durham Plan Of Treatment Next Appt Details Provider Name:Alton wick, 09/04/2025 08:00:00 AM, [address] [place] [address], Suite [facility], [place], [place], [phone], Provider Name:Alton wick, 09/11/2025 08:45:00 AM, [address] [place] [address], [address], [phone], Provider Name:Alton wick, 03/14/2026 07:15:00 AM, [address], [address], [phone], Provider Name:Alton Joiner [place], 03/21/2026 08:00:00 AM, [address], [address], [place], [phone], Progress Notes * Maureen WHITE JDOB: (84 yo F)Acc No.[id number]:07/13/2024 Patient: Kena Maueren JUAREZ :1940 A ge:84 Y S ex:Female Address:[address] [place] [address] [facility] [place] [address] * true * Date: Generated for Nando baldwin/Douglas/Kellysmitting on: 06/28/2024 08:00 AM EST
--- OUTSIDE RECORDS SUMMARY | 2024-08-08 08:12 | XMS_ITS ---
Author Organization Alton Durham MD Address [address] [place] [phone] Care Team Providers Care Ed Transporter Name Role Phone Marva Alton Primary Care Provider REASON FOR VISIT refill Medications Medication SIG (Take, Route, Frequency, Duration) Notes Start Date End Date Status Rosuvastatin Calcium 20 MG take 1 tablet by mouth every day Orally Once a day for 90 days Active Encounters Encounter Location Date Provider Diagnosis Alton Durham MD [address] [place] [phone] 08/08/2024 Alton Durham Atherosclerosis of b oth carotid arteries I65.23 Assessments Encounter Date Diagnosis (ICD Code) Assessment Notes Treatment Notes Treatment Clinical Notes Section Notes 08/08/2024 Atherosclerosis of both carotid arteries (ICD-10 - I65.23) Plan Of Treatment Medication Medication Name Sig Start Date Stop Date Notes Rosuvastatin Calcium 20 MG take 1 tablet by mouth every day Orally Once a day for 90 days Next Appt Details Provider Name:Alton wick, 09/04/2025 08:00:00 AM, [address] [facility], [address], [place], [place], [phone], Provider Name:Alton Joiner ier, 09/11/2025 08:45:00 AM, [address] [place] [address], Suite [facility], [place], [place], [phone], Provider Name:Alton Joiner ier, 03/14/2026 07:15:00 AM, [address] [place] [address], Suite [facility], [place], [place], [phone], Provider Name:Alton Joiner ier, 03/21/2026 08:00:00 AM, [address] [place] [address], Suite [facility], [place], [place], [phone], Progress Notes * Maureen WHITE JDOB: (84 yo F)Acc No.[id number]:08/08/2024 Patient: Kena Maureen JUAREZ J :1940 A ge:84 Y S ex:Female Address:[address] [place] [id number] * Refills Refill Rosuvastatin Calcium Tablet, 20 MG, Orally, 90, take 1 tablet by mouth every day, Once a day, 90 days, Refills=3 * true * Date: Generated for Nando baldwin/Douglas/Kellysmitting on: 06/28/2024 08:01 AM EST
--- OUTSIDE RECORDS SUMMARY | 2024-08-11 04:44 | XMS_ITS ---
Author Organization Alton Durham MD Address [address] [place] [phone] Care Team Providers Care Interlacer Name Role Zahra JeimyAlton staley Primary Care Provider REASON FOR VISIT Thyroid US due Encounters Encounter Location Date Provider Diagnosis Alton Durham MD [address] [facility] [address] [place] [phone] 08/11/2024 Alton Durham Thyroid nodule E04.1 Assessments Encounter Date Diagnosis (ICD Code) Assessment Notes Treatment Notes Treatment Clinical Notes Section Notes 08/11/2024 Thyroid nodule (ICD-10 - E04.1) Order made and put into the future order folder for . Plan Of Treatment Treatment Notes Assessment Notes Thyroid nodule Order made and put i nto the future order folder for . Pending Test Test Name Order Date US thyroid 08/11/2024 Next Appt Details Provider Name:Alton wick, 09/04/2025 08:00:00 AM, [address], [address], [place], [place], [phone], Provider Name:Alton Joiner ier, 09/11/2025 08:45:00 AM, [address], [address], [place], [phone], Provider Name:Alton Joiner ier, 03/14/2026 07:15:00 AM, [address], [address], [place], [phone], Provider Name:Alton Joiner ier, 03/21/2026 08:00:00 AM, [address], [address], [place], [phone], Progress Notes * Maureen WHITE JDOB: (84 yo F)Acc No.[id number]:08/11/2024 Patient: Kena Maureen JUAREZ :1940 A ge:84 Y S ex:Female Address:[address] [place] [address] Subjective: * Chief Complaints: * T hyroid US due * Medical History: * Surgical History: * Hospitalization/Major Diagno stic Procedure: * Medications: Objective: * Vitals: * Physical Examination: Assessment: * Assessment: 1. T hyroid nodule - E04.1 Plan: * Treatment: * Procedure Codes: * true * Date: Generated for Nando baldwin/Douglas/eTransmitting on: 06/28/2024 08:00 AM EST
--- OUTSIDE RECORDS SUMMARY | 2024-08-31 02:00 | XMS_ITS ---
Author Organization Alton Durham MD Address [address] [place], [place] [phone] Care Team Providers Care Feed Blender Name Role Phone JeimyAlton staley Primary Care Provider Results Component Value Reference Range Notes Liver Panel Reviewed date:08/31/2024 05:02:52 PM Interpretation: Performing Lab:[facility], [address] [place] [phone] Notes/Report: Bilirubin Total 0.7 0.0-1.0 mg/dL Bilirubin Direct 0.3 0.0-0.5 mg/dL Aspartate Amino Transferase 34 5-31 U/L Alanine Aminotransferase 27 0-31 U/L Total Protein 6.4 6.5-8.0 g/dL Albumin Level 4.0 3.5-5.0 g/dL Alkaline Phosphatase 89 39-117 U/L Potassium Reviewed date:08/31/2024 05:00:46 PM Interpretation: Performing Lab:[facility], [address] [place] [phone] Notes/Report: Potassium 3.8 3.3-5.1 mmol/L Lipid Panel with Reflex Reviewed date:08/31/2024 05:02:44 PM Interpretation: Performing Lab:[facility], [address] [facility], [place] [phone] Notes/Report: Triglycerides 32 <150 mg/dL Desirable Triglyceride: less than 150 mg/dL Borderline High Triglyceride 150-199 mg/dL High Triglyceride: 200-499 mg/dL Very High Triglyceride: greater than or equal to 5OO mg/dL Cholesterol 183 <200 mg/dL Desirable Cholesterol: less than 200 mg/dL Borderline High Cholesterol: 200-239 mg/dL High Cholesterol: greater than 239 mg/dL LDL Cholesterol Calculated 82 <100 mg/dL Desirable LDL: less than 100 mg/dL Near Optimal/Above Optimal LDL: 110-129 mg/dL Borderline High LDL: 130-159 mg/dL High LDL: 160-189 mg/dL Very High LDL: greater than or equal to 190 mg/dL HDL Cholesterol 95 >40 mg/dL Desirable HDL: greater than 40 mg/dL Note: This HDL assay may give artificially low results in patients with liver disease. REASON FOR VISIT fasting lipids Medications Medication SIG (Take, Route, Frequency, Duration) Notes Start Date End Date Status Ondansetron HCl 4 MG 1 tablet Orally Onc e a day for 20 days 05/07/2023 Not-Taking Valtrex 1 GM 1 tablet Orally 3 ti mes per day for 7 days 10/23/2016 Not-Taking Protonix 40 MG 1 TABLET ONCE A DAY ORALLY 90 DAYS Not-Taking Sucralfate 1 GM/10ML 10 mL 1 hour before meals and at bedtime on an empty stomach Orally twice a day Active Rosuvastatin Calcium 20 MG take 1 tablet by mouth every day Orally Once a day for 90 days Active Tylenol Extra Strength 500 MG 1 tablet as needed Orally every 6 hrs Not-Taking Potassium Chloride 20 MEQ TAKE 1 PACKET AND MIX IN LIQUID AND DRINK BY MOUTH DAILY DIRECTED Orally QOD Active NexIUM 20 MG 1 capsule Orally twi ce a day Active Famotidine 40 MG 1 tablet at bedtime Orally Once a day for 30 day(s) Not-Taking ZyrTEC 10 MG 1 tablet Orally Once a day for 30 day(s) Not-Taking Vitamin B-6 50 MG 1 tablet Orally for 30 day(s) Active Multi Vitamin/Minerals as directed Orally Active Encounters Encounter Location Date Provider Diagnosis Alton Durham MD [address] [place] [address] [place] [id number] 08/31/2024 Alton Durham Elevated cholesterol E78.00 ; AA (alcohol abuse) 305.00 and Hypokalemia E87.6 Assessments Encounter Date Diagnosis (ICD Code) Assessment Notes Treatment Notes Treatment Clinical Notes Section Notes 08/31/2024 Elevated cholesterol (ICD-10 - E78.00) 08/31/2024 AA (alcohol abuse) (ICD9-CM - 305.00) 08/31/2024 Hypokalemia (ICD-10 - E87.6) Plan Of Treatment Next Appt Details Provider Name:Alton wick, 09/04/2025 08:00:00 AM, [address] [place] [address], [address], [phone], Provider Name:Alton wick, 09/11/2025 08:45:00 AM, [address] [place] [address], [address], [phone], Provider Name:Alton Joiner ier, 03/14/2026 07:15:00 AM, [address] [place] [address], [address], [phone], Provider Name:Alton jeffersonr, 03/21/2026 08:00:00 AM, [address] [place] [address], [address], [phone], Progress Notes * Maureen WHITEDOB: (84 yo F)Acc No.[id number]:08/31/2024 Progress Note Patient: Kena JUAREZ Maureen Francisco Javier Provider: France Durham MD :1940 A ge:84 Y S ex:Female Date:08/31/2024 Address:[address] [place] [address] [id number] Subjective: * Chief Complaints: * 1 . Fasting lipids. * Medical History: * Medications: T aking Sucralfate 1 GM/10ML Suspension 10 mL 1 hour before meals and at bedtime on an empty stomach Orally twice a day , Taking Vitamin B-6 50 MG Tablet 1 tablet Orally , Taking Multi Vitamin/Minerals Tablet as directed Orally , Taking NexIUM 20 MG Capsule Delayed Release 1 capsule Orally twice a day , Taking Potassium Chloride 20 MEQ Packet TAKE 1 PACKET AND MIX IN LIQUID AND DRINK BY MOUTH DAILY DIRECTED Orally QOD , Taking Rosuvastatin Calcium 20 MG Tablet take 1 tablet by mouth every day Orally Once a day , Not-Taking/PRN ZyrTEC 10 MG Tablet Chewable 1 tablet Orally Once a day , Not-Taking/PRN Famotidine 40 MG Tablet 1 tablet at bedtime Orally Once a day , Not-Taking/PRN Tylenol Extra Strength 500 MG Tablet 1 tablet as needed Orally every 6 hrs , Not-Taking/PRN Ondansetron HCl 4 MG Tablet 1 tablet Orally Once a day , Not-Taking/PRN Protonix 40 MG Tablet Delayed Release 1 TABLET ONCE A DAY ORALLY 90 DAYS , Not-Taking/PRN Valtrex 1 GM Tablet 1 tablet Orally 3 times per day Objective: * Vitals: Assessment: * Assessment: 1. E levated cholesterol - E78.00 (Primary) 2 . A A (alcohol abuse) - 305.00 3 . H ypokalemia - E87.6 Plan: * Treatment: 2. H ypokalemia L AB: Potassium (Collection Date & Time - 08/31/2024 07:00 AM) * Procedure Codes: 3 6415 VENIPUNCT, ROUTINE* * * The named appointment provid er may or may not be the originator of this progress note, and it is not deemed complete until electronically signed by the appointment provider. Sign off status: Pending * Provider: France Durham MD Date: 0 08/31/2024 Generated for Nando baldwin/Douglas/Stormyitting on: 1 06/28/2024 08:01 AM EST
--- OUTSIDE RECORDS SUMMARY | 2024-09-05 03:45 | XMS_ITS ---
Author Organization Alton Durham MD Address [address] [place] [phone] Care Team Providers Care Invoice Clerk Name Role Phone Alton Durham Primary Care Provider [phone] Allergies Allergen (clinical drug ingredient) Drug/Non Drug Allergy documented on EMR Reaction Allergy Type Onset Date Status Keflex rash Drug Allergy Active ciprofloxacin Cipro rash and myalgia Drug Allergy Active sulfamethoxazole / trimethoprim Bactrim hives over entire body Drug Allergy Active ivp dye (uncoded) rash Allergy Ac tive REASON FOR VISIT 6 month Medications Medication SIG (Take, Route, Frequency, Duration) Notes Start Date End Date Status Famotidine 40 MG 1 tablet at bedtime Orally Once a day for 30 day(s) Not-Taking Ondansetron HCl 4 MG 1 tablet Orally Onc e a day for 20 days 05/07/2023 Not-Taking Tylenol Extra Strength 500 MG 1 tablet as needed Orally every 6 hrs Not-Taking Valtrex 1 GM 1 tablet Orally 3 ti mes per day for 7 days 10/23/2016 Not-Taking Protonix 40 MG 1 TABLET ONCE A DAY ORALLY 90 DAYS Not-Taking NexIUM 20 MG 1 capsule Orally twi ce a day Active Multi Vitamin/Minerals as directed Orally Active Rosuvastatin Calcium 20 MG take 1 tablet by mouth every day Orally Once a day for 90 days Active Potassium Chloride 20 MEQ TAKE 1 PACKET AND MIX IN LIQUID AND DRINK BY MOUTH DAILY DIRECTED Orally QOD Active ZyrTEC 10 MG 1 tablet Orally Once a day for 30 day(s) Not-Taking Sucralfate 1 GM/10ML 10 mL 1 hour before meals and at bedtime on an empty stomach Orally twice a day Active Vitamin B-6 50 MG 1 tablet Orally for 30 day(s) Active Vital Signs Blood pressure systolic 132 mm Hg 09/06/19 25 Blood pressure diastolic 68 mm Hg 025 Height 68 in 09/05/2024 Weight 120 lbs 09/05/2024 BMI 18.24 kg/m2 09/05/2024 weight is up 2 pounds since 07-11-24 Encounters Encounter Location Date Provider Diagnosis Alton Durham MD [address] [place] [address] [address] [place], [place] [phone] 09/05/2024 Alton Durham Neutropenia D70.9 ; Esophageal dysmotility K22.4 ; Elevated cholesterol E78.00 ; Mild carotid artery disease I77.9 and 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 09/05/2024 Esophageal dysmotility (ICD-10 - K22.4) seems better, followed by GI still having a lot of burping and belcing. 09/05/2024 Elevated cholesterol (ICD-10 - E78.00) doing well on rosuvastatin, will continue current regiment still having a lot of burping and belcing. 09/05/2024 Mild carotid artery disease (ICD-10 - I77.9) no change still having a lot of burping and belcing. 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 Plan Of Treatment Treatment Notes Assessment Notes Neutropenia neutropenia is chron ic and has been recently evaluated by hematology Esophageal dysmotility seems better, fol lowed by GI Elevated cholesterol doing well on rosuv astatin, will continue current regiment Mild carotid artery disease no change Nontoxic single thyroid nodule repeat us in one year/ order printed and put in future folder Future Test Test Name Order Date US thyroid 09/05/2025 Next Appt Details Provider Name:Alton Almeida Marisel ier, 09/04/2025 08:00:00 AM, [address] [place] [address], Suite [facility], [place], [place], [phone], Provider Name:Alton Almeida Marisel ier, 09/11/2025 08:45:00 AM, [address] [place] [address], Suite [facility], [place], [place], [phone], Provider Name:Alton Almeida Marisel ier, 03/14/2026 07:15:00 AM, [address] [place] [address], [address] [place] [address], [phone], Provider Name:Alton Joiner ier, 03/21/2026 08:00:00 AM, [address] [place] [address], [address] [place] [address], [phone], Progress Notes * Maureen WHITE JDOB: (84 yo F)Acc No.[id number]:09/05/2024 Progress Notes Patient: Maureen LEIVA Provider: France Durham MD :1940 A ge:84 Y S ex:Female Date:09/05/2024 Address:[address] [place] [address] [id number] Subjective: * Chief Complaints: * 6 month * HPI: S ymptom(s): patient is a 84 yo female here for 6 month follow up visit. * ROS: G eneral/Constitutional: Denies C hills. D enies F atigue. D enies F ever. D enies H eadache. E NT: Denies S ore throat. R espiratory: Denies C ough. D enies S hortness of breath at rest. D enies S hortness of breath with exertion. G astrointestinal: Denies D iarrhea. D enies N ausea. * Medical History: * Surgical History: * Hospitalization/Major Diagno stic Procedure: * Medications: T akingSucralfate 1 GM/10ML Suspension 10 mL 1 hour before meals and at bedtime on an empty stomach Orally twice a day Vitamin B-6 50 MG Tablet 1 tablet Orally Multi Vitamin/Minerals Tablet as directed Orally NexIUM 20 MG Capsule Delayed Release 1 capsule Orally twice a day Potassium Chloride 20 MEQ Packet TAKE 1 PACKET AND MIX IN LIQUID AND DRINK BY MOUTH DAILY DIRECTED Orally QOD Rosuvastatin Calcium 20 MG Tablet take 1 tablet by mouth every day Orally Once a day Taking Sucralfate 1 GM/10ML Suspension 10 mL 1 hour before meals and at bedtime on an empty stomach Orally twice a day Taking Vitamin B-6 50 MG Tablet 1 tablet Orally Taking Multi Vitamin/Minerals Tablet as directed Orally Taking NexIUM 20 MG Capsule Delayed Release 1 capsule Orally twice a day Taking Potassium Chloride 20 MEQ Packet TAKE 1 PACKET AND MIX IN LIQUID AND DRINK BY MOUTH DAILY DIRECTED Orally QOD Taking Rosuvastatin Calcium 20 MG Tablet take 1 tablet by mouth every day Orally Once a day Not- Taking/PRNZyrTEC 10 MG Tablet Chewable 1 [...] reconciled with the patient * Allergies: i family and consumer education teacher dye: rashBactrim: hives over entire bodyKeflex: rashCipro: rash and myalgiayes[Allergies Verified] Objective: * Vitals: H t: 68, Wt: 120, BMI:18.24, BP:132/68, Wt-k.43. weight is up 2 pounds since 07-11-24. * P ast Orders: L ab:Liver Panel (Order Date - 08/31/2024) (Collection Date & Time - 08/31/2024 07:00 AM) Value Reference Range Bilirubin Total 0.7 0.0-1.0 - mg/dL Bilirubin Direct 0.3 0.0-0.5 - mg/dL Aspartate Amino Transferase 34 H 5-31 - U/L Alanine Aminotransferase 27 0-31 - U/L Total Protein 6.4 L 6.5-8.0 - g/dL Albumin Level 4.0 3.5-5.0 - g/dL Alkaline Phosphatase 89 39-117 - U/L L ab:Potassium (Order Date - 08/31/2024) (Collection Date & Time - 08/31/2024 07:00 AM) Value Reference Range Potassium 3.8 3.3-5.1 - mmol/L L ab:Lipid Panel with Reflex (Order Date - 08/31/2024) (Collection Date & Time - 08/31/2024 07:00 AM) Value Reference Range Triglycerides 32 <150 - mg/dL Cholesterol 183 <200 - mg/dL LDL Cholesterol Calculated 82 <100 - mg/dL HDL Cholesterol 95 >40 - mg/dL * Examination: G eneral Examination: GENERAL APPEARANCE: a lert, well hydrated, in no distress.? HEAD: n ormocephalic. SKIN: g ood turgor. HEART: n o murmurs, rubs, gallops, regular rate and rhythm.? LUNGS: n o wheezes, rales, rhonchi, good air movement, clear to auscultation bilaterally. ABDOMEN: s oft, nontender, nondistended. ? Assessment: * Assessment: 1. N eutropenia - D70.9 (Primary) 2 . E sophageal dysmotility - K22.4 ? 3 . E levated cholesterol - E78.00 4 . M ild carotid artery disease - I77.9 5 . N ontoxic single thyroid nodule - E04.1 still having a lot of burpin g and belcing. Plan: * Treatment: 2. E sophageal dysmotility Notes: seems better, followed by GI 3. E levated cholesterol Notes: doing well on rosuvastatin, will continue current regiment 4. M ild carotid artery disease Notes: no change 5. N ontoxic single thyroid nodule I maging: US thyroid (Ordered for 09/05/2025) Notes: repeat us in one year/ order printed and put in future folder * Procedure Codes: * * Sign off status: Completed true * Provider: France Durham MD Date: 0 09/05/2024 Generated for Nando baldwin/Douglas/Stormyitting on: 1 06/28/2024 08:01 AM EST History and Physical Notes * HPI (History of Present Illness) Category Sub-Category Detail Notes Category Not es Symptom(s) patient is a 84 yo female here for 6 month follow up visit Examination Category Sub-Category Detail Notes Category Not es General Examination GENERAL APPEARANCE: alert, w ell hydrated, in no distress HEAD: normocephalic HEART: no murmurs, rubs, ga llops, regular rate and rhythm LUNGS: no wheezes, rales, r honchi, good air movement, clear to auscultation bilaterally ABDOMEN: soft, nontender, non distended SKIN: good turgor
--- OUTSIDE RECORDS SUMMARY | 2025-01-04 08:53 | XMS_ITS ---
Author Organization Alton Durham MD Address [address] [place] [phone] Care Team Providers Care Water Taxi Boat Mate Name Role Phone MarvaAlton Primary Care Provider REASON FOR VISIT us renal arlene orders Encounters Encounter Location Date Provider Diagnosis Alton Durham MD [address] [place] [id number] 01/04/2025 Alton Durham Calculus of kidney N20.0 Assessments Encounter Date Diagnosis (ICD Code) Assessment Notes Treatment Notes Treatment Clinical Notes Section Notes 01/04/2025 Calculus of kidney (ICD-10 - N20.0) Plan Of Treatment Future Test Test Name Order Date US RENAL BILATERAL 01/04/2026 Next Appt Details Provider Name:Alton wick, 09/04/2025 08:00:00 AM, [address], Suite [facility], [place], [place], [phone], Provider Name:Alton wick, 09/11/2025 08:45:00 AM, [address], [address], [place], [phone], Provider Name:Alton Joiner ronnyr, 03/14/2026 07:15:00 AM, [address], [address], [place], [phone], Provider Name:Alton Joiner ronnyr, 03/21/2026 08:00:00 AM, [address], [address], [place], [phone], Progress Notes * CHRISTOPHERDelmyMaureen JDOB: (84 yo F)Acc No.[id number]:01/04/2025 Patient: Maureen LEIVA :1940 A ge:84 Y S ex:Female Address:[address] [place] [phone] Subjective: * Chief Complaints: * U s renal arlene orders * Medical History: * Surgical History: * Hospitalization/Major Diagno stic Procedure: * Medications: Objective: * Vitals: * Physical Examination: Assessment: * Assessment: 1. C alculus of kidney - N20.0 Plan: * Treatment: * Procedure Codes: * true * Date: Generated for Nando baldwin/Douglas/eTransmitting on: 06/28/2024 08:01 AM EST
--- OUTSIDE RECORDS SUMMARY | 2025-03-09 02:45 | XMS_ITS ---
Author Organization Alton Durham MD Address [address] [place], [place] [phone] Care Team Providers Care Gas Analyst Name Role Phone Alton Durham Primary Care Provider Results Component Value Reference Range Notes Complete Blood Count Auto Di ff Reviewed date:03/09/2025 04:01:22 PM Interpretation: Performing Lab:[facility], [address] [place] [phone] Notes/Report: White Blood Count 3.3 4.8-10.8 X10*3/uL Red Blood Count 4.64 4.20-5.50 X10*6/uL Hemoglobin 13.8 12.0-16.0 g/dl Hematocrit 43.4 37.0-47.0 % Mean Corpuscular Volume 93.5 80.0-98.0 fL Mean Corpuscular Hemoglobin 29.7 27.0-33.0 pg Mean Corpuscular HGB Conc 31.8 31.0-35.0 g/dl Red Cell Distribution Width 13.4 11.0-16.0 % Platelet Count 165 160-400 X10*3/uL Mean Platelet Volume 10.4 9.4-12.3 fL Neutrophils Percent Auto 59.8 45-73 % Imm Gran Pct Auto 0.0 0.0-0.4 % Lymphocytes Percent Auto 21.8 20-40 % Monocytes Percent Auto 13.8 2-11 % Eosinophils Percent Auto 3.4 0-4 % Basophils Percent Auto 1.2 0-2 % NRBC Pct Auto 0.0 0.0-0.2 /100WBC Neutrophils Absolute Auto 2.0 2.0-8.3 x10*3/u L Imm Gran Abs Auto 0.00 0.00-0.03 X10*3/uL Lymphocytes Absolute Auto 0.7 1.2-4.9 X10*3/u L Monocytes Absolute Auto 0.5 0.1-1.2 X10*3/uL Eosinophils Absolute Auto 0.1 0.0-0.4 X10*3/u L Basophils Absolute Auto 0.0 0.0-0.2 X10*3/uL NRBC Abs Auto 0.000 0.0-0.012 X10*3/uL Comprehensive [place]. Panel Fa st Reviewed date:03/09/2025 04:00:54 PM Interpretation: Performing Lab:[facility], [address] [place] [phone] Notes/Report: Sodium 143 135-145 mmol/L Potassium 3.7 3.3-5.1 mmol/L Chloride 109 96-108 mmol/L Carbon Dioxide 28 22-29 mmol/L Anion Gap 10 12-20 Blood Urea Nitrogen 21 9-16 mg/dL Creatinine 0.60 0.5-1.4 mg/dL Estimated Glomerular Filt Rate > 60 Chronic Kidney Disease: Estimated GFR < 60 mL/min/1.73m2 Severe Kidney Disease: Estimated GFR < 15 mL/min/1.73m2 Glucose Fasting 85 60-99 mg/dL Calcium 9.1 8.4-10.2 mg/dL Bilirubin Total 0.6 0.0-1.0 mg/dL Aspartate Amino Transferase 34 5-31 U/L Alanine Aminotransferase 24 0-31 U/L Total Protein 6.3 6.5-8.0 g/dL Albumin Level 4.1 3.5-5.0 g/dL Alkaline Phosphatase 88 39-117 U/L Lipid Panel Reviewed date:03/09/2025 04:03:35 PM Interpretation: Performing Lab:[facility], [address] [place] [phone] Notes/Report: Triglycerides 30 <150 mg/dL Desirable Triglyceride: less than 150 mg/dL Borderline High Triglyceride 150-199 mg/dL High Triglyceride: 200-499 mg/dL Very High Triglyceride: greater than or equal to 5OO mg/dL Cholesterol 168 <200 mg/dL Desirable Cholesterol: less than 200 mg/dL Borderline High Cholesterol: 200-239 mg/dL High Cholesterol: greater than 239 mg/dL LDL Cholesterol Calculated 78 <100 mg/dL Desirable LDL: less than 100 mg/dL Near Optimal/Above Optimal LDL: 110-129 mg/dL Borderline High LDL: 130-159 mg/dL High LDL: 160-189 mg/dL Very High LDL: greater than or equal to 190 mg/dL HDL Cholesterol 84 >40 mg/dL Desirable HDL: greater than 40 mg/dL Note: This HDL assay may give artificially low results in patients with liver disease. UA ClnCatch+Micro w/rflx Cul t Reviewed date:03/09/2025 04:03:55 PM Interpretation: Performing Lab:[facility], [address] [place] [phone] Notes/Report: Urine, Clean Catch Color Urine Yellow Appearance Urine Clear PH 5.5 5.0-9.0 Glucose Urine UA Negative Negative mg/dL Urine Blood Negative Negative Specific [place] - Urine 1.020 1.005-1.025 Urine Protein 30 (1+) Neg-Trace mg/dL Urine Ketones Negative Negative mg/dL Nitrite Urine Negative Negative Leukocyte Esterase Urine Negative Negative RBC Urine 0-2 0-2 /HPF WBC Urine 0-5 0-5 /HPF Squamous Epithelial Cell Urine 0-2 0-2 /HPF Bacteria Urine None Seen None Seen Hyaline Casts Urine 0-2 0-2 /LPF REASON FOR VISIT yearly fasting labs Encounters Encounter Location Date Provider Diagnosis Alton Durham MD [address] [place], [place] [phone] 03/09/2025 Alton Durham Neutropenia D70.9 ; Elevated cholesterol E78.00 and Essential hypertension I10 Assessments Encounter Date Diagnosis (ICD Code) Assessment Notes Treatment Notes Treatment Clinical Notes Section Notes 03/09/2025 Neutropenia (ICD-10 - D70.9) 03/09/2025 Elevated cholesterol (ICD-10 - E78.00) 03/09/2025 Essential hypertension (ICD-10 - I10) Plan Of Treatment Next Appt Details Provider Name:Alton Joiner ronnyr, 09/04/2025 08:00:00 AM, [address] [place] [address], [address] [facility], [place], [place], [phone], Provider Name:Alton Joiner ronnyr, 09/11/2025 08:45:00 AM, [address] [place] [address], [address] [facility], [place], [place], [phone], Provider Name:Alton Joiner delano, 03/14/2026 07:15:00 AM, [address] [place] [address], [address] [facility], [place], [place], [phone], Provider Name:Alton Joiner ronnyr, 03/21/2026 08:00:00 AM, [address] [place] [address], [address] [facility], [place], [place], [phone], Progress Notes * Maureen WHITE JDOB: (84 yo F)Acc No.[id number]:03/09/2025 Progress Note Patient: Maureen LEIVA Provider: France Durham MD :1940 A ge:84 Y S ex:Female Date:03/09/2025 Address:[address] [place], [place] [phone] Subjective: * Chief Complaints: * 1 . Yearly fasting labs. * Medical History: Objective: * Vitals: Assessment: * Assessment: 1. N eutropenia - D70.9 (Primary) 2 . E levated cholesterol - E78.00 ? 3 . E ssential hypertension - I10 Plan: * Treatment: 2. E levated cholesterol L AB: Complete Blood Count Auto Diff (Collection Date & Time - 03/09/2025 07:45 AM) L AB: Comprehensive [place]. Panel Fast (Collection Date & Time - 03/09/2025 07:45 AM) L AB: Lipid Panel (Collection Date & Time - 03/09/2025 07:45 AM) L AB: UA ClnCatch+Micro w/rflx Cult (Collection Date & Time - 03/09/2025 07:45 AM) 3. E ssential hypertension L AB: Complete Blood Count Auto Diff (Collection Date & Time - 03/09/2025 07:45 AM) L AB: Comprehensive [place]. Panel Fast (Collection Date & Time - 03/09/2025 07:45 AM) L AB: Lipid Panel (Collection Date & Time - 03/09/2025 07:45 AM) L AB: UA ClnCatch+Micro w/rflx Cult (Collection Date & Time - 03/09/2025 07:45 AM) * Procedure Codes: 3 6415 VENIPUNCT, ROUTINE* * * The named appointment provid er may or may not be the originator of this progress note, and it is not deemed complete until electronically signed by the appointment provider. Sign off status: Pending * Provider: France Durham MD Date: 05/09/2024 Generated for Nando baldwin/Douglas/Stormyitting on: 06/28/2024 08:01 AM EST
--- OUTSIDE RECORDS SUMMARY | 2025-03-16 03:00 | XMS_ITS ---
Author Organization Alton Durham MD Address [address] [place] [id number] Care Team Providers Care Lab Instructor Name Role Phone Alton Durham Primary Care Provider Allergies Allergen (clinical drug ingredient) Drug/Non Drug Allergy documented on EMR Reaction Allergy Type Onset Date Status Keflex rash Drug Allergy Active ciprofloxacin Cipro rash and myalgia Drug Allergy Active sulfamethoxazole / trimethoprim Bactrim hives over entire body Drug Allergy Active ivp dye (uncoded) rash Allergy Ac tive Results Component Value Reference Range Notes Occult Blood, Stool, Guaiac Reviewed date:03/16/2025 11:04:27 AM Interpretation:Negative Performing Lab: Notes/Report: Negative Occult Blood, Stool, Guaiac Neg REASON FOR VISIT comp visit Medications Medication SIG (Take, Route, Frequency, Duration) [...] Once a day for 30 day(s) Not-Taking Protonix 40 MG 1 TABLET ONCE A DAY ORALLY 90 DAYS Not-Taking Valtrex 1 GM 1 tablet Orally 3 ti mes per day for 7 days 10/23/2016 Not-Taking Sucralfate 1 GM/10ML 10 mL 1 hour before meals and at bedtime on an empty stomach Orally twice a day Active Vitamin B-6 50 MG 1 tablet Orally for 30 day(s) Active NexIUM 20 MG 1 capsule Orally twi ce a day Active Multi Vitamin/Minerals as directed Orally Active Social History Tobacco Use: Social History Observation [...] ast year? No Points 0 Interpretation Negative Vital Signs Blood pressure systolic 144 mm Hg 03/16/20 25 Blood pressure diastolic 70 mm Hg 025 Height 68 in 03/16/2025 Weight 127 lbs 03/16/2025 BMI 19.31 kg/m2 03/16/2025 weight is up 7 pound since Encounters Encounter Location Date Provider Diagnosis Alton Durham MD [address] [place] [address] [address] [place], [place] [phone] 03/16/2025 Alton Durham Neutropenia D70.9 ; Thyroid nodule E04.1 ; Esophageal dysmotility K22.4 ; Heart murmur R01.1 ; Elevated cholesterol E78.00 ; Colon cancer screening Z12.11 and Depression screening Z13.31 Assessments Encounter Date Diagnosis (ICD Code) Assessment Notes Treatment Notes Treatment Clinical Notes Section Notes 03/16/2025 Neutropenia (ICD-10 - D70.9) stable, will continue to monitor 03/16/2025 Thyroid nodule (ICD-10 - E04.1) is going to get repeat in one year/order in system for August 2025 03/16/2025 Esophageal dysmotility (ICD-10 - K22.4) doing much better, will continue curent regiment 03/16/2025 Heart murmur (ICD-10 - R01.1) echo order faxed to [facility] CS dept 03/16/2025 Elevated cholesterol (ICD-10 - E78.00) stable, will continue current regiment 03/16/2025 Colon cancer screening (ICD-10 - Z12.11) guaiac negative 03/16/2025 Depression screening (ICD-10 - Z13.31) negative screen Plan Of Treatment Treatment Notes Assessment Notes Neutropenia stable, will continu e to monitor Thyroid nodule is going to get repe at in one year/order in system for August 2025 Esophageal dysmotility doing much better , will continue curent regiment Heart murmur echo order faxed to [facility] CS dept Elevated cholesterol stable, will contin ue current regiment Colon cancer screening guaiac negative Depression screening negative screen Pending Test Test Name Order Date ECHO 03/16/2025 Next Appt Details Follow Up: 6 Months, Reason: Provider Name:Alton wick, 09/04/2025 08:00:00 AM, [address] [place] [address], [address], [phone], Provider Name:Alton wick, 09/11/2025 08:45:00 AM, [address] [place] [address], [address], [phone], Provider Name:Alton wick, 03/14/2026 07:15:00 AM, [address] [place] [address], [address], [phone], Provider Name:Alton wick, 03/21/2026 08:00:00 AM, [address] [place] [address], [address], [phone], Progress Notes * Maureen WHITE JDOB: (84 yo F)Acc No.[id number]:03/16/2025 Patient: Maureen LEIVA Provider: France Durham MD :[id number] A ge:84 Y S ex:Female Date:03/16/2025 Address:[address] [place] [address] [place], [id number] Subjective: * Chief Complaints: * C omp visit * HPI: D epression Screening: PHQ-9 L ittle interest or pleasure in doing things N ot at all, F eeling down, depressed, or hopeless N ot at all, T rouble falling or staying asleep, or sleeping too much N ot at all, F eeling tired or having little energy N ot at all, P oor appetite or overeating N ot at all, F eeling bad about yourself or that you are a failure, or have let yourself or your family down N ot at all, T rouble concentrating on things, such as reading the newspaper or watching television N ot at all, M oving or speaking so slowly that other people could have noticed; or the opposite, being so fidgety or restless that you have been moving around a lot more than usual N ot at all, T houghts that you would be better off or of hurting yourself in some way N ot at all, T otal Score 0 . C ommunication Needs: Communication Needs D oes the patient have a hearing impairment N o, D oes the patient have a vision impairment? Y es, I f yes, what is the vision impairment? G lasses, D oes the patient have a cognition impairment? N o. F all Risk: History H ave you had any falls with injury in the past year? N o, H ave you had two or more falls in the past year? N o. S SANDRITA Questions: SDOH Questions I n the past year have you been worried about losing housing? N o, I n the past year have you or any family members you live with been unable to get any of the following when it was really needed? Check all that apply: N one. S ymptom(s): patient is a 84yo female here for visit with review of recent abs and follow up of chronic issues h ere for follow up. has gained 11 pounds. had endoscopy and esophagus is healed. eating better. * ROS: G eneral/Constitutional: Change in appetite d enies. C hills d enies. F ever d enies. O phthalmologic: Blurred vision d enies. D ischarge d enies. P ain d enies. E NT: Decreased hearing d enies. S ore throat d enies.?Swollen glands d enies. E ndocrine: Cold intolerance d enies. E xcessive thirst d enies. H eat intolerance d enies. W eight loss d enies. R espiratory: Cough d enies. S hortness of breath at rest d enies. S hortness of breath with exertion d enies. W heezing d enies. C ardiovascular: Chest pain at rest d enies. C hest pain with exertion?denies. I rregular heartbeat d enies. S hortness of breath d enies. ? G astrointestinal: Abdominal pain d enies. C hange in bowel habits d enies. D iarrhea d enies. N ausea d enies. R ectal bleeding d enies. V omiting d enies . G enitourinary: Blood in urine d enies. D ifficulty urinating d enies. F requent urination d enies. U rinary incontinence D enies. M usculoskeletal: Painful joints d enies. W eakness d enies. ? S kin: Dry skin d enies. I tching d enies. D enies?Mole(s), changes in moles, new moles or any lesions of concern. D enies P hotosensitivity. R tre d enies. N eurologic: Dizziness d enies. F ainting d enies. H eadache?denies. * Medical History: * Surgical History: * Hospitalization/Major Diagno stic Procedure: * Family History: F ather: 70 yrs. M other: 90 yrs, diagnosed with COPD. 1 son(s) , 1 daughter(s) . . Father- Cardiac Mother Cardiac 1 sister 76 Alzheimer's Disease, Denies mental health/substance abuse family history, Denies mental health/substance abuse family history, Denies mental health/substance abuse family history, Denies mental health/substance abuse family history. * Social History: T obacco Use: T obacco Use/Smoking P atient is a n onsmoker, A dditional Findings: Tobacco Non-User C urrent non-smoker, currently using no form of tobacco. D rugs/Alcohol: A lcohol Screen D id you have a drink containing alcohol in the past year? N o, P oints 0 , I nterpretation N egative. M iscellaneous: C affeine: yes, 1-2 cups per day of tea a day. Children: yes. Community involvements: yes. Exercise: yes, walks the mall twice a week. Housing: owning. Living with: spouse. Marital status: . Occupation: retired. Pets: cats. * Medications: T akingSucralfate 1 GM/10ML Suspension [...] tablet at bedtime Orally Once a day Protonix 40 MG Tablet Delayed Release 1 TABLET ONCE A DAY ORALLY 90 DAYS Valtrex 1 GM Tablet 1 tablet Orally 3 times per day Medication List reviewed and reconciled with the patientNot-Taking/PRN ZyrTEC 10 MG Tablet Chewable 1 tablet Orally Once a day Not-Taking/PRN Famotidine 40 MG Tablet 1 tablet at bedtime Orally Once a day Not-Taking/PRN Protonix 40 MG Tablet Delayed Release 1 TABLET ONCE A DAY ORALLY 90 DAYS Not-Taking/PRN Valtrex 1 GM Tablet 1 tablet Orally 3 times per day Medication List reviewed and reconciled with the patient * Allergies: i vp product dye: rashBactrim: hives over entire bodyKeflex: rashCipro: rash and myalgiayes[Allergies Verified] Objective: * Vitals: H t: 68, Wt: 127, BMI:19.31, BP:144/70, Wt-k.61. weight is up 7 pound since 09-05-24. * P ast Orders: L ab:Complete Blood Count Auto Diff (Order Date - 03/09/2025) (Collection Date & Time - 03/09/2025 07:45 AM) Value Reference Range White Blood Count 3.3 L 4.8-10.8 - X10*3/uL Red Blood Count 4.64 4.20-5.50 - X10*6/uL Hemoglobin 13.8 12.0-16.0 - g/dl Hematocrit 43.4 37.0-47.0 - % Mean Corpuscular Volume 93.5 80.0-98.0 - fL Mean Corpuscular Hemoglobin 29.7 27.0-33.0 - pg Mean Corpuscular HGB Conc 31.8 31.0-35.0 - g/ dl Red Cell Distribution Width 13.4 11.0-16.0 - % Platelet Count 165 160-400 - X10*3/uL Mean Platelet Volume 10.4 9.4-12.3 - fL Neutrophils Percent Auto 59.8 45-73 - % Imm Gran Pct Auto 0.0 0.0-0.4 - % Lymphocytes Percent Auto 21.8 20-40 - % Monocytes Percent Auto 13.8 H 2-11 - % Eosinophils Percent Auto 3.4 0-4 - % Basophils Percent Auto 1.2 0-2 - % NRBC Pct Auto 0.0 0.0-0.2 - /100WBC Neutrophils Absolute Auto 2.0 2.0-8.3 - x10* 3/uL Imm Gran Abs Auto 0.00 0.00-0.03 - X10*3/uL Lymphocytes Absolute Auto 0.7 L 1.2-4.9 - X10* 3/uL Monocytes Absolute Auto 0.5 0.1-1.2 - X10*3/ uL Eosinophils Absolute Auto 0.1 0.0-0.4 - X10* 3/uL Basophils Absolute Auto 0.0 0.0-0.2 - X10*3/ uL NRBC Abs Auto 0.000 0.0-0.012 - X10*3/uL L ab:Comprehensive [place]. Panel Fast (Order Date - 03/09/2025) (Collection Date & Time - 03/09/2025 07:45 AM) Value Reference Range Sodium 143 135-145 - mmol/L Bilirubin Total 0.6 0.0-1.0 - mg/dL Aspartate Amino Transferase 34 H 5-31 - U/L Alanine Aminotransferase 24 0-31 - U/L Total Protein 6.3 L 6.5-8.0 - g/dL Albumin Level 4.1 3.5-5.0 - g/dL Alkaline Phosphatase 88 39-117 - U/L Potassium 3.7 3.3-5.1 - mmol/L Chloride 109 H 96-108 - mmol/L Carbon Dioxide 28 22-29 - mmol/L Anion Gap 10 L 12-20 - Blood Urea Nitrogen 21 H 9-16 - mg/dL Creatinine 0.60 0.5-1.4 - mg/dL Estimated Glomerular Filt Rate > 60 - Glucose Fasting 85 60-99 - mg/dL Calcium 9.1 8.4-10.2 - mg/dL L ab:Lipid Panel (Order Date - 03/09/2025) (Collection Date & Time - 03/09/2025 07:45 AM) Value Reference Range Triglycerides 30 <150 - mg/dL Cholesterol 168 <200 - mg/dL LDL Cholesterol Calculated 78 <100 - mg/dL HDL Cholesterol 84 >40 - mg/dL L ab:UA ClnCatch+Micro w/rflx Cult (Order Date - 03/09/2025) (Collection Date & Time - 03/09/2025 07:45 AM) Value Reference Range Color Urine Yellow - Appearance Urine Clear - PH 5.5 5.0-9.0 - Glucose Urine UA Negative Negative - mg/dL Urine Blood Negative Negative - Specific [place] - Urine 1.020 1.005-1.025 - Urine Protein 30 (1+) A Neg-Trace - mg/dL Urine Ketones Negative Negative - mg/dL Nitrite Urine Negative Negative - Leukocyte Esterase Urine Negative Negative - RBC Urine 0-2 0-2 - /HPF WBC Urine 0-5 0-5 - /HPF Squamous Epithelial Cell Urine 0-2 0-2 - /HP F Bacteria Urine None Seen None Seen - Hyaline Casts Urine 0-2 0-2 - /LPF * Examination: G eneral Examination: GENERAL APPEARANCE: w ell developed, well nourished, in no acute distress. HEAD: n ormocephalic, atraumatic. EYES: p upils equal, round, reactive to light and accommodation, sclera non-icteric. EARS: n ormal. ORAL CAVITY: m [place] moist. THROAT: c lear. NECK/THYROID: n charlie supple, full range of motion, no cervical lymphadenopathy, no bruits. SKIN: w arm and dry, no suspicious lesions. HEART: r egular rate and rhythm, S1, S2 normal, , grade 2/6 systolic murmur at left sternal border. LUNGS: c lear to auscultation bilaterally. BREASTS: N o mass, no lump. ABDOMEN: s oft, nontender, nondistended, bowel sounds present, normal, no organomegaly , no masses palpable. RECTAL EXAM: s tool guaiac negative, mass palpable. FEMALE GENITOURINARY: d one by anatomic pathologist. EXTREMITIES: n o clubbing, cyanosis, or edema. NEUROLOGIC: n onfocal, motor strength normal upper and lower extremities, sensory exam intact. Assessment: * Assessment: 1. N eutropenia - D70.9 (Primary) 2 . T hyroid nodule - E04.1 ?3. E sophageal dysmotility - K22.4 4 . H eart murmur - R01.1 ?5. E levated cholesterol - E78.00 6 . C olon cancer screening - Z12.11? 7. D epression screening - Z13.31 Plan: * Treatment: 2. T hyroid nodule Notes: is going to get repeat in one year/order in system for August 2025 3. E sophageal dysmotility Notes: doing much better, will continue curent regiment 4. H eart murmur I maging: ECHO Notes: echo order faxed to [facility] CS dept 5. E levated cholesterol Notes: stable, will continue current regiment 6. C olon cancer screening L AB: Occult Blood, Stool, Guaiac (Collection Date & Time - 03/16/2025) N egative Value Reference Range O ccult Blood, Stool, Guaiac Neg Notes: guaiac negative??7.?Depression screening? Notes: negative screen?? * Procedure Codes: 8 2270 TEST FOR BLOOD, FECES * Follow Up: 6 Months * * Sign off status: Completed true * Provider: France Durham MD Date: 05/16/2024 Generated for Nando baldwin/Douglas/Stormyitting on: 06/28/2024 08:01 AM EST History and Physical Notes * HPI (History of Present Illness) Category Sub-Category Detail Notes Category Not es Symptom(s) patient is a 84 yo female here for visit with review of recent abs and follow up of chronic issues here for follow up. has gained 11 pounds. had endoscopy and esophagus is healed. eating better. Depression Screening PHQ-9 Little inte rest or [...] way: Not at all Total Score: 0 SDOH Questions SDOH Questions In the past year have you been worried about losing housing?: No In the past year have you or any family members you live with been unable to get any of the following when it was really needed? Check all that apply:: None Fall Risk History Have you had any falls with injury i n the past year?: No Have you had two or more falls in the st year?: No Communication Needs Communication Needs Does the patient have a hearing impairment: No Does the patient have a vision impairmen t?: Yes If yes, what is the vision impairment?: Glasses Does the patient have a cognition impair ment?: No Examination Category Sub-Category Detail Notes Category Not es General Examination GENERAL APPEARANCE: well dev eloped, well nourished, in no acute distress HEAD: normocephalic, atrau matic EYES: pupils equal, round, reactive to light and accommodation, sclera non-icteric EARS: normal THROAT: clear NECK/THYROID: neck supple, full ra nge of motion, no cervical lymphadenopathy, no bruits HEART: regular rate and rhy thm, S1, S2 normal, , grade 2/6 systolic murmur at left sternal border LUNGS: clear to auscultatio n bilaterally ABDOMEN: soft, nontender, non distended, bowel sounds present, normal, no organomegaly , no masses palpable NEUROLOGIC: nonfocal, motor stre ngth normal upper and lower extremities, sensory exam intact SKIN: warm and dry, no luiz picious lesions EXTREMITIES: no clubbing, cyanosi s, or edema BREASTS: No mass, no lump RECTAL EXAM: stool guaiac negativ e, mass palpable FEMALE GENITOURINARY: done by anatomic pathologist ORAL CAVITY: mucosa moist
--- OUTSIDE RECORDS SUMMARY | 2025-04-10 08:44 | XMS_ITS ---
Author Organization Alton Durham MD Address [address] [place] [phone] Care Team Providers Care Pepper Picker Name Role Phone MarvaAlton Primary Care Provider [phone] REASON FOR VISIT RF potassium Medications Medication SIG (Take, Route, Frequency, Duration) Notes Start Date End Date Status Potassium Chloride 20 MEQ TAKE 1 PACKET AND MIX IN LIQUID AND DRINK BY MOUTH DAILY DIRECTED Orally QOD for 30 days Active Encounters Encounter Location Date Provider Diagnosis Alton Durham MD [address] [facility] [address] [place] [phone] 04/10/2025 Alton Durham Plan Of Treatment Medication Medication Name Sig Start Date Stop Date Notes Potassium Chloride 20 MEQ TAKE 1 PACKET AND MIX IN LIQUID AND DRINK BY MOUTH DAILY DIRECTED Orally QOD for 30 days Next Appt Details Provider Name:Alton wick, 09/04/2025 08:00:00 AM, [address] [facility], [address] [facility], [place], [place], [phone], Provider Name:Alton jeffersonr, 09/11/2025 08:45:00 AM, [address], [address], [place], [place], [id number], Provider Name:Alton Joiner ier, 03/14/2026 07:15:00 AM, [address] [facility] [address], [address], [place], [place], [phone], Provider Name:Alton Joiner ier, 03/21/2026 08:00:00 AM, [address], [address], [place], [place], [phone], Progress Notes * Maureen WHITE JDOB: (84 yo F)Acc No.[id number]:04/10/2025 Patient: Kena LUCIANOCHRISTINA Maureen Francisco Javier :1940 A ge:84 Y S ex:Female Address:[address] [place] [id number] * Refills Refill Potassium Chloride Packet, 20 MEQ, Orally, 30, TAKE 1 PACKET AND MIX IN LIQUID AND DRINK BY MOUTH DAILY DIRECTED, QOD, 30 days, Refills=5 * true * Date: Generated for Nando baldwin/Douglas/Stormyitting on: 06/28/2024 08:00 AM EST
--- NOTE | ~2025-04-27 | MM_ITS ---
EXAMINATION: MM SCREENING DIGITAL BREAST TOMOSYNTHESIS, BILATERAL CLINICAL INFORMATION: Screening. Asymptomatic. COMPARISON: Comparison made to multiple prior, most recent April 24, 2024, and most remote April 11, 2020. TECHNIQUE: Digital breast tomosynthesis is performed in mediolateral oblique and craniocaudal views along with computer-aided detection (CAD). Synthesized 2D images are generated from the tomosynthesis. FINDINGS: BREAST COMPOSITION: The breasts are heterogeneously dense, which may obscure small masses. BILATERAL BREASTS: No significant masses, suspicious calcifications or other abnormalities are seen in either breast. MM/MM tomosynthesis screening BI IMPRESSION: BILATERAL BREASTS: Negative, no mammographic evidence of malignancy. Normal interval follow-up is recommended in 12 months. ASSESSMENT: BI-RADS: Category 1: Negative RECOMMENDATION: Routine annual mammography screening. FOLLOW-UP: 1 year F/U This examination should not preclude the clinical evaluation of a suspicious palpable abnormality. This patient's information was entered into a reminder system with a target due date for their next mammogram. Electronically signed by: Antoinette Lin MD 04/28/2025 05:37 PM EST
--- OUTSIDE RECORDS SUMMARY | 2025-04-27 08:01 | XMS_ITS | Patient Health Record ---
Author Organization Alton Durham MD Address [address] [place] [phone] Care Team Providers Care Liability Claims Adjuster Name Role Phone Alton Durham Primary Care [...] Reviewed date:05/09/2024 12:31:03 PM Interpretation: Performing Lab:[facility], [address] [place] [phone] Notes/Report: White Blood Count 2.8 4.8-10.8 X10*3/uL [...] Reviewed date:05/09/2024 12:25:38 PM Interpretation: Performing Lab:[facility], [address] [place] [phone] Notes/Report: Potassium 3.9 3.3-5.1 mmol/L Liver Panel Reviewed date:08/31/2024 05:02:52 PM Interpretation: Performing Lab:[address] [address] Notes/Report: Bilirubin Total 0.7 0.0-1.0 mg/dL Bilirubin Direct 0.3 0.0-0.5 mg/dL Aspartate Amino Transferase 34 5-31 U/L Alanine Aminotransferase 27 0-31 U/L Total Protein 6.4 6.5-8.0 g/dL Albumin Level 4.0 3.5-5.0 g/dL Alkaline Phosphatase 89 39-117 U/L Potassium Reviewed date:08/31/2024 05:00:46 PM Interpretation: Performing Lab:[facility], [address] [place] [phone] Notes/Report: Potassium 3.8 3.3-5.1 mmol/L Lipid Panel with Reflex Reviewed date:08/31/2024 05:02:44 PM Interpretation: Performing Lab:[facility], [address] [place] [phone] Notes/Report: Triglycerides 32 <150 mg/dL Desirable Triglyceride: [...] disease. Complete Blood Count Auto Di ff Reviewed date:03/09/2025 04:01:22 PM Interpretation: Performing Lab:[facility], [address] [place] [phone] Notes/Report: White Blood Count 3.3 4.8-10.8 X10*3/uL [...] NRBC Abs Auto 0.000 0.0-0.012 X10*3/uL Comprehensive [place]. Panel Fa st Reviewed date:03/09/2025 04:00:54 PM Interpretation: Performing Lab:[facility], [address] [place] [phone] Notes/Report: Sodium 143 135-145 mmol/L Potassium 3.7 [...] Panel Reviewed date:03/09/2025 04:03:35 PM Interpretation: Performing Lab:[facility], [address] [place] [phone] Notes/Report: Triglycerides 30 <150 mg/dL Desirable Triglyceride: [...] t Reviewed date:03/09/2025 04:03:55 PM Interpretation: Performing Lab:[facility], [address] [place] [phone] Notes/Report: Urine, Clean Catch Color Urine Yellow Appearance Urine Clear PH 5.5 5.0-9.0 Glucose Urine UA Negative Negative mg/dL Urine Blood Negative Negative Specific [place] - Urine 1.020 1.005-1.025 Urine Protein 30 (1+) Neg-Trace mg/dL Urine Ketones Negative Negative mg/dL Nitrite Urine Negative Negative Leukocyte Esterase Urine Negative Negative RBC Urine 0-2 0-2 /HPF WBC Urine 0-5 0-5 /HPF Squamous Epithelial Cell Urine 0-2 0-2 /HPF Bacteria Urine None Seen None Seen Hyaline Casts Urine 0-2 0-2 /LPF Occult Blood, Stool, Guaiac Reviewed date:03/16/2025 11:04:27 AM Interpretation:Negative Performing Lab: Notes/Report: Negative Occult Blood, Stool, Guaiac Neg Liver Panel Reviewed date:05/15/2024 02:16:26 PM Interpretation: Performing Lab:[facility], [address] [place] [phone] Notes/Report: Bilirubin Total 0.4 0.0-1.0 mg/dL Bilirubin Direct 0.1 0.0-0.5 mg/dL Aspartate Amino Transferase 32 5-31 U/L Alanine Aminotransferase 32 0-31 U/L Total Protein 6.8 6.5-8.0 g/dL Albumin Level 4.2 3.5-5.0 g/dL Alkaline Phosphatase 99 39-117 U/L CT cervical spine wo con Reviewed date:05/18/2024 01:47:30 PM Interpretation: Performing Lab: Notes/Report: [address] [address] [address] Scan Report Signed Patient: Maureen Foreman MR#: [id number] : 1940 Acct:[id number] Age/Sex: 83 / F ADM Date: 05/16/24 Loc: HO.ED Attending Dr: Ordering Physician: Segundo Montague Date of Service: 05/16/24 Procedure(s): CT cervical spine wo IV con Accession Number(s): [id number] cc: Segundo Montague; Alton Durham MD Report Number: [id number]: Total DLP = 214.00 mGy-cm EXAMINATION: CT [...] 05/16/24 1238 DD/ 1142 TD/TT: 05/16/24 1218 [employer] Worker: [place] [address] [address] Scan Report Signed Patient: Maureen Foreman MR#: [id number] : 1940 Acct:[id number] Age/Sex: 83 / F ADM Date: 05/16/24 Loc: HO.ED Attending Dr: Ordering Physician: Segundo Montague Date of Service: 05/16/24 Procedure(s): CT cer vical spine wo IV con Accession Number(s): [id number] cc: Segundo Montague; Alton Durham MD Report [...] by: Wilberto Cardoso MD 05/16/2024 12:38 PM [facility] [place]ictated By: Wilberto Kerr MD Signed By: <Electronically signed by Wilberto Martel MD in OV> 05/16/24 1238 DD/ 1142 TD/TT: 05/16/24 1218 [employer] Worker: CT head/brain wo con Reviewed date:05/16/2024 04:41:18 PM Interpretation: Performing Lab: Notes/Report: [address] [address] [address] Scan Report Signed Patient: Maureen Foreman MR#: [id number] : 1940 Acct:[id number] Age/Sex: 83 / F ADM Date: 05/16/24 Loc: HO.ED Attending Dr: Ordering Physician: Generic ED Physician Date of Service: 05/16/24 Procedure(s): CT head/brain wo IV con Accession Number(s): [id number] cc: Alton Durham MD; Generic ED Physician Report Number: [id number]: Total DLP = 625.00 mGy-cm EXAMINATION: CT [...] by: Roberto Huffman MD 05/16/2024 12:52 PM [facility] Dictated By: Roberto Huffman MD Signed By: <Electronically signed by Roberto Huffman MD in OV> 05/16/24 1252 DD/ 1153 TD/TT: 05/16/24 1218 [employer] Worker: [place] [address] CT Scan Report Signed Patient: Maureen Foreman MR#: [id number] : 1940 Acct:[id number] Age/Sex: 83 / F ADM Date: 05/16/24 Loc: HO.ED Attending Dr: Ordering Physician: Generic ED Physician Date of Service: 05/16/24 Procedure(s): CT head/brain wo IV con Accession Number(s): [id number] cc: Alton Durham MD; Generic ED Physician [...] by: Roberto Huffman MD 05/16/2024 12:52 PM [facility] Dictated By: Roberto Huffman MD Signed By: <Electronically signed by Roberto Huffman MD in OV> 05/16/24 1252 DD/ 1153 TD/TT: 05/16/24 1218 [employer] Worker: CT facial bones wo con Reviewed date:05/16/2024 04:42:06 PM Interpretation: Performing Lab: Notes/Report: [address] [address] [address] Scan Report Signed Patient: Maureen Foreman MR#: [id number] : 1940 Acct:[id number] Age/Sex: 83 / F ADM Date: 05/16/24 Loc: HO.ED Attending Dr: Ordering Physician: Segundo Montague Date of Service: 05/16/24 Procedure(s): CT facial bones wo IV con Accession Number(s): [id number] cc: Segundo Montague; Alton Durham MD Report Number: [id number]: Total DLP = 215.00 mGy-cm EXAMINATION: CT [...] by: Roberto Huffman MD 05/16/2024 12:52 PM [facility] Dictated By: Roberto Huffman MD Signed By: <Electronically signed by Roberto Huffman MD in OV> 05/16/24 1252 DD/ 1153 TD/TT: 05/16/24 1218 [employer] Worker: [place] [address] CT Scan Report Signed Patient: Maureen Foreman MR#: [id number] : 1940 Acct:[id number] Age/Sex: 83 / F ADM Date: 05/16/24 Loc: HO.ED Attending Dr: Ordering Physician: Segundo Montague Date of Service: 05/16/24 Procedure(s): CT fac ial bones wo IV con Accession Number(s): [id number] cc: Segundo Montague; Alton Durham MD Report [...] by: Roberto Huffman MD 05/16/2024 12:52 PM [facility] Dictated By: Roberto Huffman MD Signed By: <Electronically signed by Roberto Huffman MD in OV> 05/16/24 1252 DD/ 1153 TD/TT: 05/16/24 1218 [employer] Worker: Complete Blood Count Man Dif Reviewed date:06/02/2024 12:39:21 PM Interpretation: Performing Lab:[address] [phone] Notes/Report: White Blood Count 3.4 4.8-10.8 X10*3/uL [...] te Reviewed date:06/02/2024 12:22:30 PM Interpretation: Performing Lab:[address] [address] Notes/Report: Erythrocyte Sedimentation Rate 2 0-20 MM/HR Patients with polycythemia and many hemoglobin abnormalities may have depressed sed rates whereas patients with anemia may have elevated sed rates. Comprehensive Met. Panel Reviewed date:06/02/2024 12:23:01 PM Interpretation: Performing Lab:[address], [place] [address] Notes/Report: Sodium 142 135-145 mmol/L Potassium 4.4 [...] Reviewed date:06/02/2024 12:22:09 PM Interpretation: Performing Lab:[facility], [address] [place] [phone] Notes/Report: Lactate Dehydrogenase 255 122-220 U/L Vitamin B12 and Folate Reviewed date:06/02/2024 04:20:13 PM Interpretation: Performing Lab:[facility], [address] [place] [phone] Notes/Report: Vitamin B12 488 200-900 pg/mL NORMAL 200-900 PG/ML INDETERMINATE 160-199 PG/ML DEFICIENT < 160 PG/ML Folate 13.8 > or = 4.0 ng/mL Reference Values: > or = 4.0 ng/mL < 4.0 ng/mL suggests folate deficiency Methotrexate, aminopterin and folinic acid (leucovorin) are chemotherapeutic agents whose molecular structures are similar to folate; therefore, the Stationary Fireman folate assay cannot be used for patients using these drugs. Immunofixation Pnl, Serum Reviewed date:06/07/2024 08:09:13 PM Interpretation: Performing Lab:[address] [address] Notes/Report: IgG 898 143-6882 mg/dL IgA 85 70-320 mg/dL IgM 41 50-300 mg/dL THIS TEST WAS PERFORMED AT: [facility] [address] [place] [phone] ADALID FOURNIER MD Immunofixation Interpretation SEE NOTE Normal pattern. No monoclonal proteins detected. THEO Reflex Titer and Pattern Reviewed date:06/07/2024 08:08:55 PM Interpretation: Performing Lab:[address] [address] Notes/Report: Anti Nuclear Antibody Screen NEGATIVE NEGATIVE [...] Negative International Consensus on THEO Patterns (https://doi.org/10.1 515/tcul-2699-0519) For additional information, please refer to http://education.[employer].MComms TV/faq/ MYR049 (This link is being provided for informational/ educational purposes only.) THIS TEST WAS PERFORMED AT: [facility] [address] [place] [phone] ADALID FOURNIER MD Anti Nuclear Antibody Titer TNP Anti Nuclear Antibody Pattern TNP THEO Titer 2 TNP THEO Pattern 2 TNP THEO Titer 3 TNP THEO Pattern 3 TNP Rheumatoid Factor Reviewed date:06/02/2024 04:14:35 PM Interpretation: Performing Lab:[address] [address] Notes/Report: Rheumatoid Factor < 13.0 <15.0 IU/mL Hepatitis B,C Profile Reviewed date:06/02/2024 04:14:21 PM Interpretation: Performing Lab:[facility], [address] [place] [phone] Notes/Report: Hepatitis B Surface Antibody NONREACTIVE Nonreactive Nonreactive: < 8.00 mIU/mL Hepatitis B Core Antibody Nonreactive Nonreactive Hepatitis C Antibody Nonreactive Nonreactive Antibodies to HCV not detected; does not exclude early acute HCV infection. Hepatitis B Surface Antigen Negative Negative HIV Ab/Ag Reviewed date:06/02/2024 04:14:43 PM Interpretation: Performing Lab:[facility], [address] [place] [phone] Notes/Report: HIV AB/AG Nonreactive Nonreactive HIV-1 p24 [...] limit of detection of this assay. The [employer] Spotter HIV Ag/Ab Combo assay result and supplemental assay results should be interpreted in conjunction with the patient's clinical presentation, history and other laboratory results. If the results are inconsistent with clinical evidence, additional testing is suggested to confirm the result. US carotid duplex BI Reviewed date:06/09/2024 12:41:10 PM Interpretation: Performing Lab: Notes/Report: [address] [address] Ultrasound Report Signed Patient: Maureen Foreman MR#: [id number] : 1940 Acct:[id number] Age/Sex: 84 / F ADM Date: 06/09/24 Loc: . Attending Dr: Alton Durham MD Ordering Physician: Alton Durham MD Date of Service: 06/09/24 Procedure(s): US carotid duplex BI Accession Number(s): [id number] cc: Alton Durham MD EXAMINATION: US EXTRACRANIAL [...] by: Wilberto Cardoso MD 06/09/2024 12:19 PM [facility] Dictated By: Wilberto Sanches MD Signed By: <Electronically signed by Wilberto Martel MD in OV> 06/09/24 1219 DD/ 1127 TD/TT: 06/09/24 1150 [employer] Worker: [address] [address] Ultrasound Report Signed Patient: Maureen Foreman MR#: [id number] : 1940 Acct:[id number] Age/Sex: 84 / F ADM Date: 06/09/24 Loc: HO.US Attending Dr: Alton Durham MD Ordering Physician: Alton Durham MD Date of Service: 06/09/24 Procedure(s): US car otid duplex BI Accession Number(s): [id number] cc: Alton Durham MD EXAMINATION: US EXTRACRANIAL [...] 06/09/24 1219 DD/ 1127 TD/TT: 06/09/24 1150 [employer] Worker: US abdomen complete Reviewed date:06/13/2024 12:36:35 PM Interpretation: Performing Lab: Notes/Report: [address] [address] Ultrasound Report Signed Patient: Maureen Foreman MR#: [id number] : 1940 Acct:[id number] Age/Sex: 84 / F ADM Date: 06/13/24 Loc: HO.US Attending Dr: Julee ARELLANOP- Ordering Physician: Julee Asher Date of Service: 06/13/24 Procedure(s): US abdomen complete Accession Number(s): [id number] cc: Alton Durham MD; Julee Asher [facility]- CLINICAL HISTORY: R74.01 - Elevation of levels [...] 06/13/24 1026 DD/ 1025 TD/TT: 06/13/24 1025 [employer] Worker: [place] [address] Ultrasound Report Signed Patient: Maureen Foreman MR#: [id number] : 1940 Acct:[id number] Age/Sex: 84 / F ADM Date: 06/13/24 Loc: HO.US Attending Dr: Julee LINTON-DG Ordering Physician: Julee Asher Date of Service: 06/13/24 Procedure(s): US abd omen complete Accession Number(s): [id number] cc: Alton Durham MD; Julee Asher-DG CLINICAL HISTORY: R7 4.01 - Elevation of [...] 06/13/24 1026 DD/ 1025 TD/TT: 06/13/24 1025 [employer] Worker: IRON PROFILE Reviewed date:07/03/2024 12:28:58 PM Interpretation: Performing Lab:[facility], [address] [place] [phone] Notes/Report: Iron 123 30-160 mcg/dL Total Iron Binding Capacity 338 228-428 mcg/dL Percent Iron Saturation 36 15-50 % Unsaturated Iron Binding 215 Ferritin Reviewed date:07/03/2024 12:22:12 PM Interpretation: Performing Lab:[facility], [address] [place] [phone] Notes/Report: Ferritin 32 10-250 ng/mL C Reactive Protein Reviewed date:07/03/2024 12:21:54 PM Interpretation: Performing Lab:[facility], [address] [place] [phone] Notes/Report: C Reactive Protein < 0.10 < or = 0.50 mg/dL Ceruloplasmin Reviewed date:07/13/2024 12:40:30 PM Interpretation: Performing Lab:[facility], [address] [place] [phone] Notes/Report: Ceruloplasmin 26 14-48 mg/dL THIS TEST WAS PERFORMED AT: [facility] [address] [place] [phone] ADALID FOURNIER MD Alpha Fetoprotein Reviewed date:07/13/2024 04:14:53 PM Interpretation: Performing Lab:[facility], [address] [place] [phone] Notes/Report: Alpha Fetoprotein 5.3 Reference Range: <6.1 [...] of disease. THIS TEST WAS PERFORMED AT: [facility] [address] [place] [phone] ADALID FOURNIER MD Liver Fibrosis Pnl Reviewed date:07/13/2024 12:40:22 PM Interpretation: Performing Lab:[facility], [address] [place] [phone] Notes/Report: Liver Fibrosis Score 0.25 Liver Fibrosis [...] a>0.62 and a<=1.00 : A3 (severe activity) USK-Gqnoz-5-Macroglobul in 198 106-279 mg/dL FIB-Haptoglobin 77 43-212 mg/dL FIB-Apolipoprotein A1 223 101-198 mg/dL FIB-Total Bilirubin 0.6 0.2-1.2 mg/dL FIB-GGT 27 3-65 U/L FIB-ALT 18 6-29 U/L Reference ID [id number] Footnote SEE NOTE The reliability of results [...] The performance characteristics have been determined by [facility]. It has not been cleared or approved by the U.S. Food and Drug Administration. Performance characteristics refer to the analytical performance of the test. [employer], [employer], the associated logo, [employer] and all associated [employer] patel are the registered trademarks of [employer]. All third republican patel - (R) and (TM) - are the property of their respective owners. (C) 2071-8827 [employer]. All rights reserved. THIS TEST WAS PERFORMED AT: [place] [facility] [address] [place] [address] DELMER PRIETO MD,PHD,LOPEZ Mitochondrial Antibody Reviewed date:07/12/2024 07:07:20 PM Interpretation: Performing Lab:[facility], [address] [place] [phone] Notes/Report: Mitochondrial Antibodies NEGATIVE NEGATIVE The specimen was negative for cytoplasmic antibodies, however additional staining was observed suggesting the presence of Antinuclear Antibodies. Consider requesting order code 249, THEO Screen, IFA with Reflex to Titer and Pattern, or order code 66371, THEO Screen, IFA w/reflex Titer/Pattern, and Reflex to Multiplex 11 Ab [place], if clinically indicated. THIS TEST WAS PERFORMED AT: [facility] [address] [place] [phone] ADALID FOURNIER MD Mitochondrial Ab Titer TNP Smooth Muscle Antibody Reviewed date:07/12/2024 07:07:11 PM Interpretation: Performing Lab:[address] [address] Notes/Report: Smooth Muscle Antibody <20 <20 U [...] type 1. THIS TEST WAS PERFORMED AT: [place]/[address] [address] YANET KAMINSKI MD,PHD Complete Blood Count Auto Di ff Reviewed date:08/03/2024 12:56:05 PM Interpretation: Performing Lab:[facility], [address] [place] [phone] Notes/Report: White Blood Count 2.4 4.8-10.8 X10*3/uL [...] Reviewed date:08/03/2024 04:21:18 PM Interpretation: Performing Lab:[facility], [address] [place] [phone] Notes/Report: Sodium 142 135-145 mmol/L Potassium 3.9 [...] Gold Reviewed date:08/03/2024 10:57:15 AM Interpretation: Performing Lab:[facility], [address] [place] [phone] Notes/Report: Hold Gold See Note Specimen held untested for 24 hours; Call to request Chemistry testing. SLIDE REVIEW Reviewed date:08/03/2024 10:54:08 AM Interpretation: Performing Lab:[facility], [address] [place] [phone] Notes/Report: SLIDE REVIEW VERIFIED US thyroid Reviewed date:08/11/2024 09:47:47 AM Interpretation: Performing Lab: Notes/Report: [address] [address] Ultrasound Report Signed Patient: Maureen Foreman MR#: [id number] : 1940 Acct:[id number] Age/Sex: 84 / F ADM Date: 08/10/24 Loc: HO.US Attending Dr: Alton Durham MD Ordering Physician: Alton Durham MD Date of Service: 08/10/24 Procedure(s): US thyroid Accession Number(s): [id number] cc: Alton Durham MD EXAMINATION: US THYROID [...] OV> 08/10/2420 DD/ 0746 TD/TT: 08/10/24 0810 [employer] Worker: [address] [address] Ultrasound Report Signed Patient: Maureen Foreman MR#: [id number] : 1940 Acct:[id number] Age/Sex: 84 / F ADM Date: 08/10/24 Loc: HO.US Attending Dr: Alton Durham MD Ordering Physician: Alton Durham MD Date of Service: 08/10/24 Procedure(s): US thyroid Accession Number(s): [id number] cc: Alton Durham MD EXAMINATION: US THYROID [...] in OV> 08/10/24 0920 DD/ 0746 TD/TT: 04/10/25 0810 [employer] Worker: Nely Dubose Reviewed date:08/31/2024 05:00:30 PM Interpretation: Performing Lab:[facility], [address] [place] [phone] Notes/Report: Nely Dubose See Note Specimen held untested for 24 hours; Call to request Chemistry testing. Complete Blood Count Auto Di ff Reviewed date:11/03/2024 03:35:42 PM Interpretation: Performing Lab:[facility], [address] [place] [phone] Notes/Report: White Blood Count 2.7 4.8-10.8 X10*3/uL [...] Panel Reviewed date:11/03/2024 03:36:22 PM Interpretation: Performing Lab:[facility], [address] [place] [phone] Notes/Report: Sodium 141 135-145 mmol/L Potassium 3.7 [...] Dehydrogenase Reviewed date:11/02/2024 08:36:04 PM Interpretation: Performing Lab:[facility], [address] [place] [phone] Notes/Report: Lactate Dehydrogenase 230 122-220 U/L Hold Gold Reviewed date:11/02/2024 08:26:21 PM Interpretation: Performing Lab:[facility], [address] [place] [phone] Notes/Report: Hold Gold See Note Specimen held untested for 24 hours; Call to request Chemistry testing. Pathology Reviewed date:11/13/2024 01:02:31 PM Interpretation: Performing Lab:[facility], [address] [place] [phone] Notes/Report: ----- Name: Delmy Foreman Age/Sex: 84/F : 1940 Unit#: [id number] Attend Dr: Renay Hudson MD Re11/09/24 Status : [facility] Disch: ----- SPEC : [id number] REC STATUS: DEREK LANDRY NUM: [id number] ASHLI: 11/09/24-0 [facility] DR: Renay Hudson MD ENTERED: 11/09/24-11 54 [...] Delmy Foreman Age/Sex: 84/F : 1940 Unit#: [id number] Attend Dr: Renay Hudson MD Re11/09/24 Status : [facility] Disch: ----- SPEC : [id number] RECD : 11/09/24-1149 STATUS: DEREK LIMA NUM: [id number] ASHLI: 11/09/24-1039 [facility] DR: Renay Hudson MD ENTERED: 11/09/24-11 54 [...] microscopic examination, 1 piece in cassette D. ([facility]) Special studies orde red and performed: Immunostain for H. pylori on B and C; AB/PAS stains on A, B and C IHC S/NG Disclaimer NOTE: Unless otherwi se stated, all tissue is formalin-fixed and paraffin-embedded. Some or all of the immunohistochemical tests reported herein may have been developed and their performance characteristics determined by [facility]. They have not been cleared or appr baltazar by the U.S. Food and Drug Administration (FDA). However, the FDA has determined that such clearance or approval is not necessary. This laboratory is certified under the Clinical Laboratory Improvement Amendments of 1988 (CLIA) as qualified to perform high complexity clinical laboratory testing. Copies To: Alton Durham MD [facility] [address] [place] [id number] Renay Hudson MD [facility] [address] [place] [address] ----- Signed (signature on file) Camden Shine MD 11/13/24 0958 ----- END OF REPORT Disaccharidases Reviewed date:11/15/2024 03:49:36 PM Interpretation: Performing Lab:[facility], [address] [place] [phone] Notes/Report: Comment Duodenum BX Lactase 32.0 15.0-45.5 [...] analytical performance characteristics have been determined by [employer]. It has not been cleared or approved by the FDA. This assay has been validated pursuant to the CLIA regulations and is used for clinical purposes. THIS TEST WAS PERFORMED AT: [place] [address] [place] [address] DELMER PRIETO MD,PHD,LOPEZ US renal BI Reviewed date:01/02/2025 10:21:07 AM Interpretation: Performing Lab: Notes/Report: [address] [place] [address] Ultrasound Report Signed Patient: Maureen Foreman MR#: [id number] : 1940 Acct:[id number] Age/Sex: 84 / F ADM Date: 01/02/25 Loc: HO.US Attending Dr: Som Mckeon MD Ordering Physician: Som Mckeon MD Date of Service: 01/02/25 Procedure(s): US renal BI Accession Number(s): [id number] cc: Som Mckeon MD; Alton Durham MD [...] 01/02/25 1010 DD/ 0818 TD/TT: 01/02/25 0832 [employer] Worker: [address] [address] Ultrasound Report Signed Patient: Maureen Foreman MR#: [id number] : 1940 Acct:[id number] Age/Sex: 84 / F ADM Date: 01/02/25 Loc: HO.US Attending Dr: Aneudy Fernández MD Ordering Physician: Som Mckeon MD Date of Service: 01/02/25 Procedure(s): US renal BI Accession Number(s): [id number] cc: Som Mckeon MD; Alton Durham MD Reason for Exam: N20 .0 - Calculus of kidney EXAMINATION: US RETROPERITONEAL LIMITED (RENAL ONLY) CLINICAL INFORMATION: Calculus of kidney. COMPARISON: [facility] TECHNIQUE: Routine grayscale im aging of [...] 01/02/25 1010 DD/ 0818 TD/TT: 01/02/25 0832 [employer] Worker: [facility] Liver Panel Reviewed date:01/11/2025 04:34:34 PM Interpretation: Performing Lab:[address] [id number] Notes/Report: Bilirubin Total 0.6 0.0-1.0 mg/dL Bilirubin Direct 0.1 0.0-0.5 mg/dL Aspartate Amino Transferase 42 5-31 U/L Mild Hemolysis.Interpret result with caution Alanine Aminotransferase 30 0-31 U/L Total Protein 6.9 6.5-8.0 g/dL Mild Hemolysis.Interpret result with caution Albumin Level 4.4 3.5-5.0 g/dL Alkaline Phosphatase 87 39-117 U/L IRON PROFILE Reviewed date:01/11/2025 04:33:12 PM Interpretation: Performing Lab:[address] [id number] Notes/Report: Iron 124 30-160 mcg/dL Mild Hemolysis.Interpret result with caution Total Iron Binding Capacity 325 228-428 mcg/dL Percent Iron Saturation 38 15-50 % Unsaturated Iron Binding 201 Mild Hemolysis.Interpret result with caution. Ferritin Reviewed date:01/11/2025 04:33:23 PM Interpretation: Performing Lab:[address] [id number] Notes/Report: Ferritin 36 10-250 ng/mL Reason For Referral No Information Medications Medication SIG (Take, Route, Frequency, Duration) Notes Start Date End Date Status Rosuvastatin Calcium 20 MG take 1 tablet by mouth every day Orally Once a day for 90 days Active Famotidine 40 MG 1 tablet at bedtime Orally Once a day for 30 day(s) Not-Taking ZyrTEC 10 MG 1 tablet Orally Once a day for 30 day(s) Not-Taking Valtrex 1 GM 1 tablet Orally 3 ti mes per day for 7 days 10/23/2016 Not-Taking Protonix 40 MG 1 TABLET ONCE A DAY ORALLY 90 DAYS Not-Taking Potassium Chloride 20 MEQ TAKE 1 PACKET AND MIX IN LIQUID AND DRINK BY MOUTH DAILY DIRECTED Orally QOD for 30 days Active Sucralfate 1 GM/10ML 10 mL 1 hour before meals and at bedtime on an empty stomach Orally twice a day Active Vitamin B-6 50 MG 1 tablet Orally for 30 day(s) Active NexIUM 20 MG 1 capsule Orally twi ce a day Active Multi Vitamin/Minerals as directed Orally Active Immunizations Vaccine Route Administration Date Status [...] pt wa s given the vaccine at [facility] in [place] on [address] Fluarix Quadrivalent Unknown 02/03/2019 [...] Problem Status W/U Status Risk Notes Problem 520580341 Thyroid nodule (E04.1) Active confirmed Problem 403118249 Neutropenia (D70.9) Active confirmed Problem 453766258 Lung nodule seen on imaging study (R91.1) Active confirmed Problem Non-toxic single thyroid nodule (851969650) Nontoxic single thyroid nodule (E04.1) Active confirmed Problem 7169073 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) Active confirmed Problem Calculus of kidney (61884026) 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) Active confirmed Problem Disorder of lumbar disc (129391125) Lumbar disc disease (M51.9) Active confirmed Problem 06076835 Essential hypertension (I10) Active confirmed Problem 920587315 Lung nodule (R91.1) Active confirmed Problem 270403145 Esophageal dysmotility (K22.4) Active confirmed Problem 266412220 History of kidne y stones (Z87.442) Active confirmed Problem 267928056 Cervical disc disease (M50.90) Active confirmed Problem 33925674 Sciatica of left side (M54.32) Active confirmed Problem 067571510 Neutropenia, unspecified type (D70.9) Active confirmed Problem 98668419 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) Active confirmed Problem 54258752 Sciatica of righ t side (M54.31) Active confirmed Problem 30672185 Elevated cholesterol (E78.00) Active confirmed Problem 312638088 Esophageal spasm (K22.4) Active confirmed Problem 71990435121880 Adnexal cyst (N94.9) Active confirmed Problem 660174002 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) Active confirmed Problem 63790723 Achalasia (K22.0) Active confirmed Problem 76613561 Paresthesia (R20.2) Active confirmed Problem 051162383367553 Atherosclerosis of both carotid arteries (I65.23) Active confirmed Problem 930887499 Abnormal mammogr am of both breasts (R92.8) Active confirmed Problem 510930545 Esophageal dysfunction (K22.4) Active confirmed Problem 533013884 Tingling of righ t upper extremity (R20.2) Active confirmed Problem 059345719 Gastroesophageal reflux disease with esophagitis without hemorrhage (K21.00) Active confirmed Problem 754103296 Porokeratosis (Q82.8) Active confirmed Problem 606667412 Hepatic granulom a (K75.3) Active confirmed Problem 450500509 Mild carotid art silva disease (I77.9) Active confirmed Vital Signs Blood pressure diastolic 70 mm Hg 03/16/2025 antonio ght is up 7 pound since 09-05-24 Height 68 in 03/16/2025 weight is up 7 pound since 09-05-24 Blood pressure systolic 144 mm Hg 03/16/2025 weig ht is up 7 pound since 09-05-24 Weight 127 lbs 03/16/2025 weight is up 7 pound since 09-05-24 BMI 19.31 kg/m2 03/16/2025 weight is up 7 pound since 09-05-24 Encounters Encounter Location Date Provider Diagnosis Alton Durham MD [address] [place] [address] [id number] 05/09/2024 Alton Durham Gastroesophageal ref lux disease with esophagitis without hemorrhage K21.00 Alton Durham MD [address] [place] [address] [id number] 08/31/2024 Alton Durham Elevated cholesterol E78.00 ; AA (alcohol abuse) 305.00 and Hypokalemia E87.6 Alton Durham MD [address] [place] [address] [id number] 03/09/2025 Alton Durham Neutropenia D70.9 ; Elevated cholesterol E78.00 and Essential hypertension I10 Alton Durham MD [address] [place] [address] [id number] 05/19/2024 Alton Durham Status post fall Z91 .81 ; Mild carotid artery disease I77.9 and Hypokalemia E87.6 Alton Durham MD [address] [place] [address] [id number] 07/11/2024 Alton Durham Elevated LFTs R79.89 ; Elevated cholesterol E78.00 and Atherosclerosis of both carotid arteries I65.23 Alton Durham MD [address] [place] [address] [id number] 09/05/2024 Alton Durham Neutropenia D70.9 ; Esophageal dysmotility K22.4 ; Elevated cholesterol E78.00 ; Mild carotid artery disease I77.9 and Nontoxic single thyroid nodule E04.1 Alton Durham MD [address] [place] [address] [id number] 03/16/2025 Alton Durham Neutropenia D70.9 ; Thyroid nodule E04.1 ; Esophageal dysmotility K22.4 ; Heart murmur R01.1 ; Elevated cholesterol E78.00 ; Colon cancer screening Z12.11 and Depression screening Z13.31 Alton Durham MD [address] [place] [address] [id number] 05/18/2024 Alton Durham Bilateral carotid artery disease I77.9 Alton Durham MD [address] [place] [address] [id number] 05/22/2024 Alton Durham MD [address] [place] [address] [id number] 06/09/2024 Alton Durham MD [address] [place] [address] [id number] 06/27/2024 Alton Durham MD [address] [place] [address] [id number] 07/13/2024 Alton Durham MD [address] [place] [address] [id number] 08/08/2024 Alton Durham Atherosclerosis of b [facility] carotid arteries I65.23 Alton Durham MD [address] [place] [address] [id number] 08/11/2024 Alton Durham Thyroid nodule E04.1 Alton Durham MD [address] [place] [address] [id number] 01/04/2025 Alton Durham Calculus of kidney N20.0 Alton Durham MD [address] [place] [address] [id number] 04/10/2025 Alton Durham Assessments Encounter Date Diagnosis (ICD Code) Assessment Notes Treatment Notes Treatment Clinical Notes Section Notes 05/09/2024 Gastroesophageal reflux disease with esophagitis without hemorrhage (ICD-10 - K21.00) 08/31/2024 Elevated cholesterol (ICD-10 - E78.00) 03/09/2025 Neutropenia (ICD-10 - D70.9) 05/19/2024 Status post fall (ICD-10 - Z91.81) doing well 05/19/2024 Mild carotid artery disease (ICD-10 - I77.9) had this four years ago and repeat us. 07/11/2024 Elevated LFTs (ICD-10 - R79.89) contact Carmen at [facility] to discuss/ is most likely related to the statin. could stop it and see if it returns to normal but don't think that is necessary 09/05/2024 Neutropenia (ICD-10 - D70.9) neutropenia is chronic and has been recently evaluated by hematology still having a lot of burping and belcing. 03/16/2025 Neutropenia (ICD-10 - D70.9) stable, will continue to monitor 03/16/2025 Thyroid nodule (ICD-10 - E04.1) is going to get repeat in one year/order in system for August 2025 05/18/2024 Bilateral carotid artery disease (ICD-10 - I77.9) 08/08/2024 Atherosclerosis of both carotid arteries (ICD-10 - I65.23) 08/11/2024 Thyroid nodule (ICD-10 - E04.1) Order made and put into the future order folder for . 01/04/2025 Calculus of kidney (ICD-10 - N20.0) 08/31/2024 AA (alcohol abuse) (ICD9-CM - 305.00) 03/09/2025 Elevated cholesterol (ICD-10 - E78.00) 05/19/2024 Hypokalemia (ICD-10 - E87.6) pending lab work 07/11/2024 Elevated cholesterol (ICD-10 - E78.00) is not at goal but with elevated lft's will leave on present 09/05/2024 Esophageal dysmotility (ICD-10 - K22.4) seems better, followed by GI still having a lot of burping and belcing. 03/16/2025 Esophageal dysmotility (ICD-10 - K22.4) doing much better, will continue curent regiment 08/31/2024 Hypokalemia (ICD-10 - E87.6) 03/09/2025 Essential hypertension (ICD-10 - I10) 07/11/2024 Atherosclerosis of both carotid arteries (ICD-10 - I65.23) no change in 5 years 09/05/2024 Elevated cholesterol (ICD-10 - E78.00) doing well on rosuvastatin, will continue current regiment still having a lot of burping and belcing. 03/16/2025 Heart murmur (ICD-10 - R01.1) echo order faxed to [facility] dept 09/05/2024 Mild carotid artery disease (ICD-10 - I77.9) no change still having a lot of burping and belcing. 03/16/2025 Elevated cholesterol (ICD-10 - E78.00) stable, will continue current regiment 09/05/2024 Nontoxic single thyroid nodule (ICD-10 - E04.1) repeat us in one year/ order printed and put in future folder still having a lot of burping and belcing. 03/16/2025 Colon cancer screening (ICD-10 - Z12.11) guaiac negative 03/16/2025 Depression screening (ICD-10 - Z13.31) negative screen Plan Of Treatment Pending Test Test Name Order Date Electrocardiogram (EKG) 01/28/2018 Electrocardiogram (EKG) 06/10/2018 XR GI SERIES 06/11/2023 US CAROTID BILATERAL DOPPLER 05/18/2024 US THYROID 06/24/2023 ECHO 03/16/2025 CT abdomen pelvis wo con 12/21/2022 US thyroid 08/11/2024 US thyroid 07/15/2023 Future Test Test Name Order Date US THYROID 01/02/2020 US THYROID 04/18/2021 CT chest wo con 07/08/2023 US pelvic and transvaginal 07/30/2023 US thyroid 09/11/2024 Next Appt Details Provider Name:Alton wick, 09/04/2025 08:00:00 AM, [address] [place] [address], [address], [place], [place], [phone], Provider Name:Alton jeffersonr, 09/11/2025 08:45:00 AM, [address] [place] [address] Drive, [address], [place], [place], [phone], Provider Name:Alton wick, 03/14/2026 07:15:00 AM, [address] [place] [address], Suite [facility], [place], [place], [phone], Provider Name:Alton wick, 03/21/2026 08:00:00 AM, [address], [address], [place], [phone], Insurance Providers Payer Name Payer Address Payer Phone Subscriber Number Group Number Insured Name Patient Relationship to Insured Coverage Start Date Coverage End Date [employer] [address] [facility] [place] [id number] [id number] Maureen Foreman Self - patient is the insured [facility] [address] [place] [phone] [id number] Maureen Foreman Self - patient is the insured Medical (General) History Medical History History ICD Code discussed colonoscopy again 2012,2013 di scussed 2017 cta chest with small nodule [address] of Chest in (done in 06/2014) ct 2023. no need for further Dermatitis due to drugs and medicines ta gamaliel internally Basal cell cancer needs us thyroid 2020 has kidney stone and lithotrypsy 2019 Surgical History Surgery Date(Month/Year) RT Ear Meatoplasty (Dr. Clifton Kaminski) 10/2019
--- OUTSIDE RECORDS SUMMARY | 2025-04-27 08:01 | XMS_ITS | Data Portability ---
Author Organization [place] - [facility], Allergy Address [address] [address] Care Team Providers Care Computer Systems Consultant Name Role Phone GRAHAM HARGROVE Primary Care Provider Assessment Encounter Date Assessment Date Assessment LastModified by Organization Details LastModified Time 10/05/2024 10/05/2024 84-year-old female presents for cerumen removal. Cerumen impaction removed bilaterally. Bilateral TMs are intact with well aerated middle ear spaces. Follow up in 3 months for routine debridement. [email or web address] Not available 10/05/2024 10:01:48 04/09/2025 04/09/2025 84-year-old female with history of right-sided meatoplasty presents for cerumen removal. Cerumen impactions removed bilaterally, which patient tolerated well. TMs are normal to inspection. Patient reports hearing returned to baseline after procedure. Recommend routine 3-month follow-up for cerumen debridement, sooner with issues. [email or web address] Not available 04/09/2025 12:38:57 Plan of Treatment Reminders Order Date Submit Date Provider Last Modified By Organization Details Last Modified Time Details Appointments Establish ed 15 2025 09:00A M LANDEN STILL PA-C Not available Not available Not available Establish ed 15 2025 09:00A Yury GARCIA PA-C Not available Not available Not available Establish ed 15 2025 09:00A M LANDEN STILL PA-C Not available Not available Not available Lab None recorded. Referral None recorded. Procedures None recorded. Surgeries None recorded. Imaging None recorded. Medication Orders clotrimaz ole-betam ethasone 1 %-0.05 % topical cream 2024 025 [facility]/Pharmacy #[id number], [address] [facility], [place], [address], 01/08/2025 08:41:57 Patient TargetsNo targets recorded. Patient InstructionsNo instructions recorded. Reason for Referral None Reported. 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 44054110433 Active 2019 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 and infectio n, bilatera l; Note: Date Diagnose d: 0 9:37 AM (H61.323 ) Not Available [facility] 4 02:59:24 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 40624907595 Active 2019 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 and infectio n, bilatera l; Note: Date Diagnose d: 0 9:37 AM (H61.323 ) Not Available [facility] 4 02:59:24 Bilatera l diffuse otitis externa 34352432549 Completed 201912/03/2023 Diffuse otitis externa, bilatera l; Note: Changed from H60.312 to H60.313 ( 0 9:01 AM) , Date Diagnose d: 0 11:52 AM (H60.312 ) Not Available [facility] 4 02:59:21 Cellulit is of both external ears 81979654748 Completed 201912/03/2023 Cellulit is of external ear, bilatera l; Note: Date Diagnose d: 08/10/2019 9:02 AM (H60.13) Not Available [facility] 4 02:59:22 Otitis externa of bilatera l ears 89042787428 42997 Completed 201912/03/2023 Other otitis externa, bilatera l; Note: Date Diagnose d: 09/07/2019 10:30 AM (H60.8X3 ) Not Available [facility] 4 02:59:24 Follow-u p visit Active 2019 Encounte r for follow-u p examinat ion after complete d treatmen t for conditio ns other than malignan t neoplasm ; Note: Date Diagnose d: 11/02/2019 11:14 AM (Z09) Medica l surveill ance followin g complete d treatmen t; Note: Date Diagnose d: 0 9:50 AM (Z09) ; Start Date : 10/30/19 20 Not Available [facility] 4 02:59:25 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 01118628701 85465 Active 2019 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 and infectio n; Note: Date Diagnose d: 0 8:43 AM (H61.322 ) Not Available [facility] 4 02:59:21 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 34085933609 63105 Completed 201912/03/2023 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 and infectio n; Note: Date Diagnose d: 0 8:43 AM (H61.321 ) Not Available [facility] 4 02:59:22 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 16111032956 80441 Active 2019 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 and infectio n; Note: Date Diagnose d: 0 8:43 AM (H61.322 ) Not Available [facility] 4 02:59:21 Impacted cerumen in left ear 86305543191 83438 Active 2019 Impacted cerumen, left ear; Note: Date Diagnose d: 0 9:06 AM (H61.22) Not Available [facility] 4 02:59:24 Sensorin eural hearing loss of bilatera l ears 962122686 Active 2020 Sensorin eural hearing loss, bilatera l; Note: Date Diagnose d: 1 9:19 AM (H90.3) Not Available [facility] 4 02:59:25 Candidal otitis externa 68837378 Active 2022 Candidal otitis externa; Note: Date Diagnose d: 3 8:45 AM (B37.84) Candid al otitis externa; Note: Date Diagnose d: 0 9:31 AM (B37.84) ; Start Date : 05/18/19 20 Not Available [facility] 4 02:59:22 Problem Notes None recorded. Procedures Surgical History Date Name Laterality Status Provider Name and Address Organization Details Recorded Time 04/09/20 25 Cerumen removal without microscope bilat completed LANDEN STILL PA-C [address] [place] [address],[address], [address], [facility] - [facility] 04/09/2025 12:38:04 01/09/20 25 Cerumen removal with microscope left completed TRACEY KAMINSKI MD [address] [place] [address],[address], [address], [place] - [facility] 01/07/2025 10:20:12 10/06/19 25 Cerumen removal without microscope bilat completed YUDITH CLINE PA-C [address] [place] [address],[address], [address], [place] - [facility] 10/05/2024 10:01:26 03/04/20 25 Cerumen removal with microscope left completed TRACEY KAMINSKI MD [address] [facility], [place], [address], [place] - [facility] 07/03/2024 08:42:44 04/04/20 24 Cerumen removal with microscope left completed TR[facility]Y [facility]KI MD [address] [facility] [address], [place], [address], [place] - [facility] 04/03/2024 07:34:32 01/04/20 24 Cerumen removal with microscope left completed TRACEY KAMINSKI MD [address] [facility] [address], [place], [address], [place] - [facility] 01/04/2024 09:06:38 10/19/19 24 Cerumen removal with microscope left completed TRACEY KAMINSKI MD [address] [facility],[place] [address], [place], [address], [place] - [facility] 10/19/2023 08:46:23 lithotripsy completed Latha Fu [place] - [facility] 10/19/2023 08:30:53 meatoplasty of external ear completed Latha Fu [place] - [facility] 10/19/2023 08:31:07 Imaging Results None recorded. Procedure Notes None recorded. Medical Equipment None Reported. Allergies Allergen ID Allergen Name Allergen Category Reaction Reaction Severity Criticality Documentation Date Start Date Code Code System Note Provider Name and Address Organization Details Recorded Time 782033 cephalexi n monohydra te medicatio n other Not available Not available 09/14/2023 72407 8 RxNorm React ion: unkno wn, unspe cifie d;; Not Available [facility] 4 01:22:48 059521 Substance with sulfonami de structure and antibacte rial mechanism of action (substanc e) medicatio n other Not available Not available 09/14/2023 64586 8003 SNOMED React ion: unkno wn, unspe cifie d;; Not Available [facility] 4 01:22:48 673181 Iodinated contrast media (substanc e) medicatio n Not available Not available Not available 10/19/2023 33051 2004 SNOMED Latha monteiro [place] - [facility] 4 08:29:47 220134 ciproflox acin medicatio n Not available Not available Not available 04/09/2025 2551 RxNorm Not Available nancy - External Data Service - prod 5 03:52:31 636511 sulfameth oxazole / trimethop rim medicatio n Not available Not available Not available 04/09/2025 44041 RxNorm Not Available [facility] - External Data Service - prod 5 03:52:31 Medications Name Sig Start Date Stop Date Status Note LastModified by Organization Details LastModified Time atorvasta tin 40 mg tablet 02/08 completed Medicati on ID: [id number] D uration Value: 90 Brand Name: atorvast [...] Available Not Available senna 8.6 mg tablet TAKE 1 TABLET BY MOUTH AT BEDTIME NEEDED FOR CONSTIPA TION active Not Available Not Available No t Available sucralfat e 100 mg/mL oral suspensio [...] eye drops 10/18 completed Medicati on ID: [id number] D uration Value: 14 Prescri bed By Name: KELLI Barros nd Name: Ciloxan Send Method: E-Prescr ibed Sub s Allowed: subs OK Speci al Instruct ion: 4 drops into affected ear BID X 14 days Med icationG enericNa me: Ciloxan Medicati on ID: [id number] D uration Value: 14 Prescri bed By Name: KELLI Barros nd Name: Ciloxan Send Method: E-Prescr ibed Sub s Allowed: subs OK Speci al Instruct ion: 4 drops into affected ear BID X 14 days Med icationG enericNa me: Ciloxan Not Available Not Available Not Available ciproflox acin 500 mg tablet 1 tablet by mouth 08/02 completed Medicati on ID: [id number] D uration Value: 10 Prescri bed By [...] layed release 04/04 completed Medicati on ID: [id number] B rand Name: pantopra zole Sen d Method: E-Prescr ibed Sub s Allowed: subs OK Medic ationGen ericName : pantopra zole Not Available Not Available Not Available clotrimaz ole-betam ethasone 1 %-0.05 % topical cream APPLY TO THE SKIN OF THE AFFECTED EXTERNAL EAR CANAL WITH FINGERTI P 3 TIMES PER DAY FOR 2 WEEKS 2024 active Not Available Not Available Not Avai lable clotrimaz ole 1 % topical solution 10/18 completed Medicati on ID: [id number] D uration Value: 14 Brand Name: kip Kwan d Method: E-Prescr ibed Sub s Allowed: subs OK Speci al Instruct ion: 4 drops to affected ear three times a day Medi cationGe nericNam e: clotrima zole Med ication ID: [id number] D uration Value: 14 Brand Name: kip [...] affected area 10/18 completed Medicati on ID: [id number] D uration Value: 14 Brand Name: mupiroci n Send Method: E-Prescr ibed Sub s Allowed: subs OK Medic ationGen ericName : mupiroci n Medica tion ID: [id number] D uration Value: 14 Brand Name: mupiroci n Send Method: E-Prescr ibed Sub s Allowed: subs OK Medic ationGen ericName : mupiroci n Not Available Not Available Not Available cefuroxim e axetil 500 mg tablet 1 tablet by mouth 10/18 completed Medicati on ID: [id number] D uration Value: 14 Brand Name: cefuroxi me axetil S end Method: E-Prescr ibed Sub s Allowed: subs OK Medic ationGen ericName : cefuroxi me axetil M edicatio n ID: [id number] D uration Value: 14 Brand Name: cefuroxi me axetil S end Method: E-Prescr ibed Sub s Allowed: subs OK Medic ationGen ericName : cefuroxi me axetil Not Available Not Available Not Available multivita min capsule 2019 active Medicati on ID: [id number] B rand Name: multivit anderson Sen d [...] by mouth 10/18 completed Medicati on ID: [id number] D uration Value: 3 Brand Name: oxycodon e Send Method: E-Prescr ibed Sub s Allowed: subs OK Medic ationGen ericName : oxycodon e Medica tion ID: [id number] D uration Value: 3 Brand Name: oxycodon e Send Method: E-Prescr ibed Sub s Allowed: subs OK Medic ationGen ericName : oxycodon e Not Available Not Available Not Available neomycin 3.5 mg/g-poly myxin B 10,000 unit/g-de xameth 0.1 % eye oint 10/25 completed Medicati on ID: [id number] Juan Pablo boo By Name: Musa Ramirez nd Name: neomycin -polymyx in B-dexame Send Method: E-Prescr ibed Sub s Allowed: subs OK Speci al Instruct ion: apply to both ear canals TID [facility] nericNam e: neomycin -polymyx in B-dexame th Not Available Not Available Not Available Ciprodex 0.3 %-0.1 % ear drops,luiz pension 4 drop 10/18 completed Medicati on ID: [id number] D uration Value: 14 Brand Name: Ciprodex Send Method: E-Prescr ibed Sub s Allowed: subs OK Medic ationGen ericName : Ciprodex Medicat ion ID: [id number] D uration Value: 14 Brand Name: Ciprodex [...] topical ointment 10/18 completed Medicati on ID: [id number] D uration Value: 30 Brand Name: Cortispo rin Send Method: E-Prescr ibed Sub s Allowed: subs OK Speci al Instruct ion: apply to bith ears canals three times a day Medi cationGe nericNam e: Cortispo rin Medi cation ID: [id number] D uration Value: 30 Brand Name: Cortispo [...] Updated DateTime 10/05/2024 172.72 cm 18.2 kg/m2 02238.08 g Mariola De La Cruz [place] - [facility] 10/05/2024 09:44:07 Date Recorded Body height Body mass index (BMI) Body weight Provider Name and Address Organization Details Last Updated DateTime 04/09/2025 172.72 cm 19 kg/m2 33201.05 g Tracee Wilder [place] - [facility] 04/09/2025 10:50:14 Social History None recorded. Functional Status None recorded. Mental Status None recorded. Family History Nothing Reported. Medical History Condition Response Hypertension Y High Cholesterol Y GERD/Reflux Y Gynecological HistoryNo gynecological history recorded. 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 She is always welcome to come back to see me if she wants to proceed with left-sided meatoplast y. Impacted c erumen in left ear 2334615220 175267 H61.22 [id number] TRACEY KAMINSKI MD [facility] [address] [address] 07/04/2024 08:23:56 07/04/2024 08:48:02 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 6857047794 803490 H61.322 The right external auditory canal remains [...] for next disimpacti on with a physician legal administrative assistant which we will do going forward for cerumen removal. She is always welcome to come back to see me if she wants to proceed with left-sided meatoplast y. 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 She is always welcome to come back to see me if she wants to proceed with left-sided meatoplast y. Impacted c erumen in left ear 2861206029 435778 H61.22 Candidal o titis externa 94606736 B37.84 The skin of the right external auditory canal is showing signs of fungal dermatitis . Recommend applicatio n of clotrimazo le/betamet hasone cream to be applied by fingertip to the external auditory meatus three times a day for two weeks. Patient may repeat this as necessary for recurrence of symptoms. Prescripti on sent to patient's pharmacy. Avoidance of Q-tips recommende d to reduce the risk of recurrence . 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 1155491630 057237 H61.322 Impacted c erumen of bilateral ears 0902532234 850367 H61.23 Health Concerns Section Related Observation LastModified by Organization Detai ls LastModified Time None Recorded Concern Status LastModified by Organization Details LastModified Time None Recorded Advance Directives Directive None Recorded Payers Insurance Date Sequence Insurance Name Policy Number Policy Chi Covered Member ID Chi Member ID Guarantor Name 04/06/2025 2 [employer] - [employer]IC INDEMNITY PLAN (MEDICARE SUPPLEMENT) [id number] Maureen Mcintyre Ahsan [id number] Maureen Mcintyre Ahsan 04/06/2025 1 [place] B-[place]: [facility] Maureen Mcintyre Ahsan [id number] Maureen Mcintyre Ahsan 02/05/2025 2 [employer] - SENIOR SERVICES PLAN F (MEDICARE SUPPLEMENT) [id number] Maureen Mcintyre Ahsan [id number] Maureen Mcintyre Ahsan Notes Date Note Type Note Provider Name and Address Organization Details Recorded Time 04/04/2024 text/html 83-year-old female presents for cerumen removal. She has a history of bilateral external auditory canals stenosis. Meatoplasty done in 2019 on the right side with resulting resolution of the stenosis on the right. She reports the right ear is feeling great. Recent blockage sensation on the left accompanied by difficulty hearing. TRACEY KAMINSKI MD [address] [place] [address], [address], [facility] - [facility] 04/04/2024 08:38:51 07/04/2024 text/html 83-year-old female presents for cerumen removal. She has a history of bilateral external auditory canals stenosis. Meatoplasty done in 2019 on the right side with resulting resolution of the stenosis on the right. She reports the right ear is feeling great. Recent blockage sensation on the left accompanied by difficulty hearing. TRACEY KAMINSKI MD [address] [place] [address], [address], [facility] 07/04/2024 08:48:40 10/05/2024 text/html ROS as noted in the HPI 84-year-old female presents for cerumen removal. She has a history of bilateral external auditory canals stenosis. Is s/p meatoplasty in 2020 on the right side with resulting resolution of the stenosis on the right. No concerns today. TRACEY KAMINSKI MD [address] [facility],[address], [address], [facility] 10/09/2024 17:43:04 01/08/2025 text/html 84-year-old female presents for cerumen removal. She has a history of bilateral external auditory canals stenosis. Meatoplasty done in 2020 on the right side with resulting resolution of the stenosis on the right. She reports the right ear is feeling great. Recent blockage sensation on the left accompanied by difficulty hearing. TRACEY KAMINSKI MD [address] [facility],[address], [address], [facility] 01/08/2025 08:44:20 04/09/2025 text/html ROS as noted in the HPI 84-year-old female with history of right sided meatoplasty presents for cerumen removal. She reports left-sided aural fullness today. She returns every 3 months for serial cerumen debridements. No other acute concerns today. TRACEY KAMINSKI MD [address] [facility],[place] [address], [place], [address], [facility] 04/11/2025 17:13:16 OBGyn Episode No OBEpisode recorded.
--- OUTSIDE RECORDS SUMMARY | 2025-04-27 08:02 | XMS_ITS | Patient Health Record ---
Author Organization [facility] Address [address] [place] [address] Care Team Providers Care Combat Systems Operator Mine Warfare Name Role Phone Alton Durham MD Primary Care Provider Bean Cortes Jr [phone] Reason For Referral No Information Plan Of Treatment No Information Insurance Providers Payer Name Payer Address Payer Phone Subscriber Number Group Number Insured Name Patient Relationship to Insured Coverage Start Date Coverage End Date MEDICARE OF [place] [address] [place], [place] [id number] [phone] [id number] ARINA WHITE Self - patient is the insured [facility] [address] [address] [place] [address] [id number] ARINA WHITE Self - patient is the insured
--- OUTSIDE RECORDS SUMMARY | 2025-04-27 08:02 | XMS_ITS | Continuity of Care Document ---
Author Organization [place] - [facility], [facility] Address [address] [place] [address] Care Team Providers Care Photographer Assistant Name Role Phone GRAHAM HARGROVE Primary Care Provider Assessment Encounter Date Assessment Date Assessment LastModified by Organization Details LastModified Time 04/09/2025 04/09/2025 84-year-old female with history of right-sided meatoplasty presents for cerumen removal. Cerumen impactions removed bilaterally, which patient tolerated well. TMs are normal to inspection. Patient reports hearing returned to baseline after procedure. Recommend routine 3-month follow-up for cerumen debridement, sooner with issues. [email or web address] Not available 04/09/2025 12:38:57 Plan of Treatment Reminders Order Date Submit Date Provider Last Modified By Organization Details Last Modified Time Details Appointments Establish ed 15 2025 09:00A M LANDEN STILL PA-C Not available Not available Not available Establish ed 15 2025 09:00A Yury GARCIA PA-C Not available Not available Not available Establish ed 15 2025 09:00A M LANDEN STLIL PA-C Not available Not available Not available [...] Time Acute myringit is of right ear [id number] 62392 Completed 201912/03/2023 Acute myringit is, right ear; Note: Date Diagnose d: 0 10:14 AM (H73.001 ) Not Available [facility] 4 02:59:21 Impacted cerumen of bilatera l ears [id number] 24001 Active 2019 Impacted cerumen, bilatera l; Note: Date Diagnose d: 0 9:31 AM (H61.23) Not Available [facility] 4 02:59:23 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 53028129619 Active 2019 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 and infectio n, bilatera l; Note: Date Diagnose d: 0 9:37 AM (H61.323 ) Not Available [facility] 4 02:59:24 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 24426151975 Active 2019 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 and infectio n, bilatera l; Note: Date Diagnose d: 0 9:37 AM (H61.323 ) Not Available [facility] 4 02:59:24 Bilatera l diffuse otitis externa 88390216236 Completed 201912/03/2023 Diffuse otitis externa, bilatera l; Note: Changed from H60.312 to H60.313 ( 0 9:01 AM) , Date Diagnose d: 0 11:52 AM (H60.312 ) Not Available [facility] 4 02:59:21 Cellulit is of both external ears 59120003754 Completed 201912/03/2023 Cellulit is of external ear, bilatera l; Note: Date Diagnose d: 08/10/2019 9:02 AM (H60.13) Not Available [facility] 4 02:59:22 Otitis externa of bilatera l ears [id number] 03612 Completed 201912/03/2023 Other otitis externa, bilatera l; Note: Date Diagnose d: 09/07/2019 10:30 AM (H60.8X3 ) Not Available [facility] 4 02:59:24 Follow-u p visit [...] Start Date : 10/30/19 20 Not Available [facility] 4 02:59:25 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 19249406015 Active 2019 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 and infectio n; Note: Date Diagnose d: 0 8:43 AM (H61.322 ) Not Available [facility] 4 02:59:21 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 34026414217 Completed 201912/03/2023 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 and infectio n; Note: Date Diagnose d: 0 8:43 AM (H61.321 ) Not Available [facility] 4 02:59:22 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 65658549462 28333 Active 2019 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 and infectio n; Note: Date Diagnose d: 0 8:43 AM (H61.322 ) Not Available [facility] 4 02:59:21 Impacted cerumen in left ear 78255263316 Active 2019 Impacted cerumen, left ear; Note: Date Diagnose d: 0 9:06 AM (H61.22) Not Available [facility] 4 02:59:24 Sensorin eural hearing loss of bilatera l ears 498871473 Active 2020 Sensorin eural hearing loss, bilatera l; Note: Date Diagnose d: 1 9:19 AM (H90.3) Not Available [facility] 4 02:59:25 Candidal otitis externa 56958416 Active 2022 Candidal otitis externa; Note: Date Diagnose d: 3 8:45 AM (B37.84) Candid al otitis externa; Note: Date Diagnose d: 0 9:31 AM (B37.84) ; Start Date : 05/18/19 20 Not Available [facility] 4 02:59:22 Problem Notes None recorded. Procedures Surgical History Date Name Laterality Status Provider Name and Address Organization Details Recorded Time 04/09/20 25 Cerumen removal without microscope bilat completed LANDEN STILL PA-C [address] [facility],[address], [address], [place] - [facility] 04/09/2025 12:38:04 01/09/20 25 Cerumen removal with microscope left completed TRACEY KAMINSKI MD [address] [facility],[address], [address], [place] - [facility] 01/07/2025 10:20:12 10/06/19 25 Cerumen removal without microscope bilat completed YUDITH CLINE PA-C [address] [facility],[address], [address], [place] - [facility] 10/05/2024 10:01:26 07/05/19 25 Cerumen removal with microscope left completed TRACEY KAMINSKI MD [address] [facility],[address], [address], [place] - [facility] 07/03/2024 08:42:44 04/04/20 24 Cerumen removal with microscope left completed TRACEY KAMINSKI MD [address] [facility],[address], [address], [place] - [facility] 04/03/2024 07:34:32 01/04/20 24 Cerumen removal with microscope left completed [facility] MD [address] [facility], [place], [address], [facility] - [facility] 01/04/2024 09:06:38 10/19/19 24 Cerumen removal with microscope left completed TRACEY [facility]AMINSKI MD [address] [facility] [place],[facility] [address], [place], [address], [facility] - [facility] 10/19/2023 08:46:23 lithotripsy completed Latha Fu [place] - [facility] 10/19/2023 08:30:53 meatoplasty of external ear completed Latha Fu [place] [facility] 10/19/2023 08:31:07 Imaging Results None recorded. Procedure Notes None recorded. Medical Equipment None Reported. Allergies Allergen ID Allergen Name Allergen Category Reaction Reaction Severity Criticality Documentation Date Start Date Code Code System Note Provider Name and Address Organization Details Recorded Time 570398 cephalexi n monohydra te medicatio n other Not available Not available 09/14/2023 56757 8 RxNorm React ion: unkno wn, unspe cifie d;; Not Available [facility] 4 01:22:48 780248 Substance with sulfonami de structure and antibacte rial mechanism of action (substanc e) medicatio n other Not available Not available 09/14/2023 00805 8003 SNOMED React ion: unkno wn, unspe cifie d;; Not Available [facility] 4 01:22:48 338652 Iodinated contrast media (substanc e) medicatio n Not available Not available Not available 10/19/2023 60342 2004 SNOMED Latha monteiro [place] - [facility] 4 08:29:47 610091 ciproflox acin medicatio n Not available Not available Not available 04/09/2025 2551 RxNorm Not Available [employer] - prod 5 03:52:31 109168 sulfameth oxazole / trimethop rim medicatio n Not available Not available Not available 04/09/2025 62819 RxNorm Not Available [employer] - prod 5 03:52:31 Medications Name Sig Start Date Stop Date Status Note LastModified by Organization Details LastModified Time atorvasta tin 40 mg tablet 02/08 completed Medicati on ID: [id number] D uration Value: 90 Brand Name: atordelia pagan Sen d Method: E-Prescr ibed Sub s [...] eye drops 10/18 completed Medicati on ID: [id number] D uration Value: 14 Prescri bed By Name: KELLI Barros nd Name: Ciloxan Send Method: E-Prescr ibed Sub s Allowed: subs OK Speci al Instruct ion: 4 drops into affected ear BID X 14 days Med icationG enericNa me: Ciloxan Medicati on ID: [id number] D uration Value: 14 Prescri bed By Name: KELLI Barros nd Name: Ciloxan Send Method: E-Prescr ibed Sub s Allowed: subs OK Speci al Instruct ion: 4 drops into affected ear BID X 14 days Med icationG enericNa me: Ciloxan Not Available Not Available Not Available ciproflox acin 500 mg tablet 1 tablet by mouth 08/02 completed Medicati on ID: [id number] D uration Value: 10 Prescri bed By [...] layed release 04/04 completed Medicati on ID: [id number] B rand Name: pantopra zole Sen d [...] topical solution 10/18 completed Medicati on ID: [id number] D uration Value: 14 Brand Name: clotrima zole Sen d Method: E-Prescr ibed Sub s Allowed: subs OK Speci al Instruct ion: 4 drops to affected ear three times a day Medi cationGe nericNam e: clotrima [facility] [place] [id number] D uration Value: 14 Brand Name: clotrima [...] affected area 10/18 completed Medicati on ID: [id number] D uration Value: 14 Brand Name: mupiroci n Send Method: E-Prescr ibed Sub s Allowed: subs OK Medic ationGen ericName : mupiroci n Medica tion ID: [id number] D uration Value: 14 Brand Name: mupiroci n Send Method: E-Prescr ibed Sub s Allowed: subs OK Medic ationGen ericName : mupiroci n Not Available Not Available Not Available cefuroxim e axetil 500 mg tablet 1 tablet by mouth 10/18 completed Medicati on ID: [id number] D uration Value: 14 Brand Name: cefuroxi me axetil S end Method: E-Prescr ibed Sub s Allowed: subs OK Medic ationGen ericName : cefuroxi me axetil M edicatio n ID: [id number] D uration Value: 14 Brand Name: cefuroxi me axetil S end Method: E-Prescr ibed Sub s Allowed: subs OK Medic ationGen ericName : cefuroxi me axetil Not Available Not Available Not Available multivita min capsule 2019 active Medicati on ID: [id number] B rand Name: multivit anderson Sen d [...] by mouth 10/18 completed Medicati on ID: [id number] D uration Value: 3 Brand Name: oxycodon e Send Method: E-Prescr ibed Sub s Allowed: subs OK Medic ationGen ericName : oxycodon e Medica tion ID: [id number] D uration Value: 3 Brand Name: oxycodon e Send Method: E-Prescr ibed Sub s Allowed: subs OK Medic ationGen ericName : oxycodon e Not Available Not Available Not Available neomycin 3.5 mg/g-poly myxin B 10,000 unit/g-de xameth 0.1 % eye oint 10/25 completed Medicati on ID: [id number] P rescribe d By Name: Musa Ramirez nd Name: neomycin -polymyx in B-dexame th Send Method: E-Prescr ibed Sub s Allowed: subs OK Speci al Instruct ion: apply to both ear canals TID [place] [facility] cationGe nericNam e: neomycin -polymyx in B-dexame th Not Available Not Available Not Available Ciprodex 0.3 %-0.1 % ear drops,luiz pension 4 drop 10/18 completed Medicati on ID: [id number] D uration Value: 14 Brand Name: Ciprodex Send Method: E-Prescr ibed Sub s Allowed: subs OK Medic ationGen ericName : Ciprodex Medicat ion ID: [id number] D uration Value: 14 Brand Name: Ciprodex [...] topical ointment 10/18 completed Medicati on ID: [id number] D uration Value: 30 Brand Name: Cortispo rin Send Method: E-Prescr ibed Sub s Allowed: subs OK Speci al Instruct ion: apply to bith ears canals three times a day Medi cationGe nericNam e: Joseph gonzalez Medi cation ID: [id number] D uration Value: 30 Brand Name: Joseph gonzalez Send Method: E-Prescr ibed Sub s Allowed: subs OK Speci al Instruct ion: apply to bith ears canals three times a day Medi cationGe nericNam e: Joseph rin Not Available Not Available Not Available [...] Updated DateTime 04/09/2025 172.72 cm 19 kg/m2 14520.05 g Tracee Wilder [place] - [facility] 04/09/2025 10:50:14 Social History None recorded. 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 [id number] 607756 H61.322 Impacted c erumen of bilateral ears [id number] 479127 H61.23 Health Concerns Section Related Observation LastModified by Organization Detai ls LastModified Time None Recorded Concern Status LastModified by Organization Details LastModified Time None Recorded Payers Encounter Date Sequence Insurance Name Policy Number Policy Chi Covered Member ID Chi Member ID Guarantor Name 04/09/2025 2 [facility] INDEMNITY [facility]AN (MEDICARE SUPPLEMENT) [id number] Maureen Foreman [id number] Maureen Rodriguezaida 04/09/2025 1 [place] B-[place] [facility] [employer] [facility] Maureen Rodriguezzeyadlazara [id number] Maureen Mcintyre Ahsan Notes Date Note Type Note Provider Name and Address Organization Details Recorded Time 04/09/2025 text/html ROS as noted in the HPI 84-year-old female with history of right sided meatoplasty presents for cerumen removal. She reports left-sided aural fullness today. She returns every 3 months for serial cerumen debridements. No other acute concerns today. TRACEY KAMINSKI MD [address] [place] [address], [address], [facility] - [facility] 04/11/2025 17:13:16 OBGyn Episode No OBEpisode recorded.
== END 2025-04-27 07:58 | disposition home or self-care (01) ==
LOC: HO.MAMMO 07:57
PROVIDERS: PCP Internal Medicine; Visit Provider Internal Medicine
DX: Z12.31 Encounter for screening mammogram for malignant neoplasm of breast (principal)
CPT/HCPCS: 77063; 77067

== ENCOUNTER → 2025-04-27 08:15 | Outpatient (BNV) | payer MEDICARE, OTHER, SELFPAY | PROVIDERS: PCP Internal Medicine; Visit Provider Radiology Body Imaging | DX: Z12.31 Encounter for screening mammogram for malignant neoplasm of breast (principal) | CPT/HCPCS: 77063; 77067 ==